=== PATIENT | female | born 1960 | race Caucasian/White ===

== ENCOUNTER 2018-05-13 16:26 | Inpatient (IN) | END 2018-06-22 15:25 | disposition home or self-care (01) | DRG 291 ==

== ENCOUNTER 2018-07-20 09:47 | Inpatient (IN) | payer OTHER ==
[~2018-07-20] VITALS: Ht 162.6 cm; Wt 156.0 kg
[~2018-07-20 09:47] MED LIST: ACET325T45 PO; ALLO100T PO; BUME1TAB PO; DIC20 PO; DIPH25CA6 PO; DOCU-216 PO; ERGO500013 PO; GABA300C16 PO; HYDR-3671 PO; LEVEM SC; LOPE-123 PO; Melatonin PO; NYST1POW22 TOPICAL; TRAM50TA2 PO; TRAZ-111 PO; Vancomycin Oral Syringe PO; [UNRECOGNIZED DRUG - CODE] RIGHT EAR
--- NOTE | 2018-07-20 14:48 | ERD ---
ER Documentation Chief Complaint Chief Complaint sent by dr robledo - for lab work ; pt unable to walk HPI This is a morbidly obese 58-year-old female who is sent by Dr. Robledo apparently the patient says she is unable to walk and called his office and was told to come here to get admitted to the hospital. She had a chronic inability to walk since her last admission here. She states that she has no real other physical conditions that are limiting and except not being able to walk. She has chronic neuropathy in her feet says she cannot feel her feet even walk. Patient refused to be placed in a long-term at last visit and she went AMA to back to her house. 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 She has no shortness of breath no abdominal pain GI symptoms or chest pain. Patient is not on dialysis yet however has a permacath ROS All systems reviewed and are negative except as per history of present illness. Medications Home Meds Active Scripts [Melatonin] 3 MG TABLET No Conflict Check, 3 MG PO HS PRN for INSOMNIA for 14 Days Prov:BRIAN ROBLEDO MD 06/21/18 Allopurinol* (Allopurinol*) 100 Mg Tablet, 100 MG PO DAILY for 28 Days, TAB Prov:BRIAN ROBLEDO MD 06/21/18 Ergocalciferol (Vitamin D2) (VITAMIN D2) 50,000 Unit Capsule, 20567 UNIT PO Lacy@ 09 for 28 Days, CAP Prov:BRIAN ROBLEDO MD 06/21/18 Insulin Detemir (Levemir) 100 Unit/1 Ml Vial, 25 UNITS SC HS for 28 Days, VIAL Prov:BRIAN ROBLEDO MD 06/21/18 Docusate Sodium (Dok) 100 Mg Capsule, 100 MG PO BID PRN for CONSTIPATION for 7 Days, CAP Prov:BRIAN ROBLEDO MD 06/21/18 Carbamide Peroxide (Murine Ear Drops) 15 Ml Drops, 3 DROP RIGHT EAR BID for 7 Days, BOTTLE Prov:BRIAN ROBLEDO MD 06/21/18 Tramadol HCl (Tramadol HCl) 50 Mg Tablet, 50 MG PO Q6H PRN for PAIN LEVEL 6-10 for 28 Days, #30 TAB Prov:BRIAN ROBLEDO MD 06/21/18 Gabapentin* (Gabapentin*) 300 Mg Capsule, 300 MG PO HS for 28 Days, CAP Prov:BRIAN ROBLEDO MD 06/21/18 Hydralazine Hcl* (Hydralazine Hcl*) 25 Mg Tab, 25 MG PO Q8 for 28 Days, TAB Prov:BRIAN ROBLEDO MD 06/21/18 [Vancomycin Oral Syringe] 50 MG/ML SOLN No Conflict Check, 250 MG PO TID for 14 Days Prov:BRIAN ROBLEDO MD 06/21/18 Reported Medications Nystatin (Nystatin Powder) 1 Each Powder.ea., 1 APPLIC TOPICAL BID, #1 BOTTLE 05/13/18 Acetaminophen* (Acetaminophen*) 325 Mg Tablet, 325 MG PO Q4H PRN for PAIN AND OR ELEVATED TEMP, #30 TAB 05/13/18 Trazodone Hcl* (Trazodone Hcl*) 50 Mg Tablet, 50 MG PO QHS, #30 TAB 05/13/18 Dicyclomine HCl (Dicyclomine HCl) 20 Mg Tablet, 20 MG PO BID 05/13/18 Loperamide Hcl* (Loperamide Hcl*) 2 Mg Cap, 2 MG PO DAILY, CAP 05/13/18 Bumetanide* (Bumetanide*) 1 Mg Tablet, 1 MG PO BID, TAB 05/13/18 Diphenhydramine Hcl* (Diphenhydramine Hcl*) 25 Mg Capsule, 25 MG PO QHS PRN for ITCHING, CAP 05/13/18 Allergies Allergies: Coded Allergies: polystyrene sulfonate (Verified Allergy, Intermediate, hives, 05/14/18) codeine (Verified Allergy, Unknown, 05/13/18) Uncoded Allergies: SEAFOOD (Allergy, Unknown, 05/13/18) PMhx/Soc History of Surgery: Yes (Gallbladder Removal ('),Abcess? (')) Anesthesia Reaction: No Hx Neurological Disorder: Yes (Volant palsy, hardened arteries, Neuropathy) Hx Respiratory Disorders: Yes (PNA ('17)) Hx Cardiac Disorders: Yes (CHF ('15), HTN, Arrythmias) Hx Psychiatric Problems: No Hx Miscellaneous Medical Probl: Yes (kidney failure) Hx Alcohol Use: Yes Hx Substance Use: No Hx Tobacco Use: No Smoking Status: Former smoker FmHx Family History: No coronary disease Physical Exam Vitals Vital Signs Date Time Temp Pulse Resp B/P (MAP) Pulse Ox O2 Delivery O2 Flow Rate FiO2 07/20/18 09:50 98.3 84 19 200/71 (114) 94 Physical Exam Const: Well-developed, well-nourished, morbidly obese Head: Atraumatic, normocephalic Eyes: Normal Conjunctiva, PERRLA, EOMI, normal sclera, no nystagmus ENT: Normal External Ears, Nose and Mouth, moist mucus membranes. Neck: Full range of motion. No meningismus, no lymphadenopathy. Resp: Clear to auscultation bilaterally, no wheezing, rhonchi, rales Cardio: Regular rate and rhythm, no murmurs, S1 S2 present, permacath in the right upper chest intact Abd: Soft, non tender x 4, non distended. Normal bowel sounds, no guarding or rebound, no pulsitile abdominal masses or bruits Skin: No petechiae or rashes, no ecchymosis , no maculopapular rash Back: No midline or flank tenderness Ext: No cyanosis, or edema, FROM x 4, normal inspection, neurovascularly intact x 4 Neur: Awake and alert, STR 5/5 x 4, sensation intact x 4, no focal findings, cerebellum intact Psych: Normal Mood and Affect Result Diagram: 07/20/18 1235 07/20/18 1235 Results 24 hrs Laboratory Tests Test 07/20/18 12:35 White Blood Count 14.4 10^3/ul Red Blood Count 4.82 10^6/ul Hemoglobin 12.7 g/dl Hematocrit 42.6 % Mean Corpuscular Volume 88.4 fl Mean Corpuscular Hemoglobin 26.3 pg Mean Corpuscular Hemoglobin Concent 29.8 g/dl Red Cell Distribution Width 16.3 % Platelet Count 317 10^3/UL Mean Platelet Volume 10.7 fl Immature Granulocytes % 0.700 % Neutrophils % 71.5 % Lymphocytes % 19.1 % Monocytes % 5.6 % Eosinophils % 2.6 % Basophils % 0.5 % Nucleated Red Blood Cells % 0.0 /100WBC Immature Granulocytes # 0.100 10^3/ul Neutrophils # 10.3 10^3/ul Lymphocytes # 2.7 10^3/ul Monocytes # 0.8 10^3/ul Eosinophils # 0.4 10^3/ul Basophils # 0.1 10^3/ul Nucleated Red Blood Cells # 0.0 10^3/ul Sodium Level 140 mmol/L Potassium Level 5.2 mmol/L Chloride Level 105 mmol/L Carbon Dioxide Level 29 mmol/L Anion Gap 11 Blood Urea Nitrogen 63 mg/dl Creatinine 3.50 mg/dl Glucose Level 206 mg/dl Calcium Level 9.6 mg/dl Total Bilirubin 0.2 mg/dl Direct Bilirubin 0.00 mg/dl Indirect Bilirubin 0.2 mg/dl Aspartate Amino Transf (AST/SGOT) 23 IU/L Alanine Aminotransferase (ALT/SGPT) 24 IU/L Alkaline Phosphatase 96 IU/L Total Protein 7.6 g/dl Albumin 3.1 g/dl Globulin 4.50 g/dl Albumin/Globulin Ratio 0.68 Procedures/MDM PROCEDURE: XR Chest. CLINICAL INDICATION: Chest pain TECHNIQUE: Single portable view of the chest was obtained COMPARISON: CHEST 06/09/2018 FINDINGS: The heart is enlarged. There is a right-sided Perma-Cath in place. There are mild left lower lobe linear atelectatic changes. The lungs are otherwise clear. There is no pleural effusion or pneumothorax. RPTAT: AA IMPRESSION: Moderate Cardiomegaly. Mild left lower lobe linear atelectatic changes. .Wade Julian MD, MD Date Time Electronically viewed and signed by .Wade Julian MD, MD on 07/20/2018 11: 26 .S/ CC: JULIÁN RAWLS DO [id number] Spoke with Dr. san who called Dr. Robledo and they discussed the case and call me back and see the patient does not need to stay in the hospital however the patient is adamantly refusing to go home because she cannot walk and its "their fault". The patient needs to be placed in a rehab or senior living facility with an aggressive weight loss regimen. She does have some mild hyperkalemia of 5.2 however the patient is refusing to take Kayexalate because she is allergic to it she states I have paged back Dr. san to have the patient put in for observation Departure Diagnosis: Primary Impression: Leg weakness, bilateral Additional Impression: Morbidly obese Condition: Stable JULIÁN RAWLS DO Jul 20, 2018 14:48
[2018-07-20] MEDS ORDERED: LIDOCAINE 1% (MPF) 5 ML VIAL ONE (16:41)
[2018-07-20] MEDS ORDERED: ONDANSETRON 4 MG INJ IV PRN (18:30)
[2018-07-20] MEDS ORDERED: ACETAMINOPHEN 325 MG TAB PO PRN (18:30)
--- NOTE | 2018-07-20 22:56 | HP ---
Date/Time of Note Date/Time of Note DATE: 07/20/18 TIME: 22:48 Assessment/Plan VTE Prophylaxis VTE Prophylaxis Intervention: heparin Lines/Catheters IV Catheter Type (from Nrsg): Mid Line Assessment/Plan Chief Complaint/Hosp Course 1. ckd 2. c diff hx 3. Chronic kidney disease, 4. Morbid obesity. 5. Diabetes. 6. Hypertension, 7. Gout.hx 8. Neuropathy. 9. History of congestive heart failure. 10 weakness 11 deconditioning plan ck labs will need snf ck ua HPI/ROS Admit Date/Time Admit Date/Time Hx of Present Illness hx ckd htn dm anemia hx c diff weakness unable to walk ROS Subjective hx not possible: other (weakness,unable to walk) Constitutional: fatigue; No chills Eyes: no complaints ENT: no complaints Respiratory: no complaints Cardiovascular: no complaints Gastrointestinal: no complaints Genitourinary: no complaints Musculoskeletal: no complaints Skin: no complaints Neurologic: no complaints, other (weakness) Endocrine: no complaints Lymphatic: no complaints Psychological: anxiety PMH/Family/Social Past Medical History Medical History: diabetes, high cholesterol, hypertension, renal disease Coded Allergies: polystyrene sulfonate (Verified Allergy, Intermediate, hives, 07/20/18) codeine (Verified Allergy, Unknown, 07/20/18) Uncoded Allergies: SEAFOOD (Allergy, Unknown, 05/13/18) Family History Significant Family History: hypertension Social History Alcohol Use: none Smoking Status: Former smoker Exam/Review of Systems Vital Signs Vitals Vital Signs Date Time Temp Pulse Resp B/P (MAP) Pulse Ox O2 Delivery O2 Flow Rate FiO2 07/20/18 21:00 83 13 122/46 (71) 98 Nasal Cannula 3.0 07/20/18 18:45 97.2 Exam Constitutional: alert, oriented, other (obese) Psych: anxiety Head: normocephalic, atraumatic Eyes: nl conjunctiva, EOMI ENMT: mucosa pink and moist Neck: supple, non-tender Respiratory: clear to auscultation, normal air movement Cardiovascular: regular rate and rhythm, nl pulses Gastrointestinal: soft, nl liver, spleen, non-tender, bowel sounds Musculoskeletal: muscle weakness, range of motion (pain+) Extremities: normal pulses, edema (+) Neurological: DIETARY CLERK II-XII intact Skin: No rash or lesions Labs Result Diagram: 07/20/18 1235 07/20/18 1235 Medications Medications Current Medications Ondansetron HCl (Zofran Inj) 4 mg BRIDGE ORDER PRN IV NAUSEA AND/OR VOMITING; Start 07/20/18 at 18:30; Stop 07/21/18 at 18:29 Acetaminophen (Tylenol Tab) 650 mg ER BRIDGE PRN PO MILD PAIN/FEVER; Start at 18:30; Stop 07/21/18 at 18:29 Acetaminophen (Tylenol Tab) 325 mg Q4H PRN PO MILD PAIN(1-3)OR ELEVATED TEMP; Start 07/20/18 at 23:00; Status UNV Allopurinol (Zyloprim) 100 mg DAILY PO ; Start 07/21/18 at 09:00; Status UNV Diphenhydramine HCl (Benadryl) 25 mg QHS PRN PO ITCHING; Start 07/20/18 at 23: 00; Status UNV Gabapentin (Neurontin) 300 mg HS PO ; Start 07/21/18 at 21:00; Status UNV Hydralazine HCl (Apresoline) 25 mg Q8 PO ; Start 07/21/18 at 06:00; Status UNV Loperamide HCl (Imodium Cap) 2 mg DAILY PO ; Start 07/21/18 at 09:00; Status UNV Trazodone HCl (Desyrel) 50 mg QHS PO ; Start 07/21/18 at 21:00; Status UNV Miscellaneous Information 100 mg BID PRN PO CONSTIPATION; Start 07/20/18 at 23 :00; Status UNV Miscellaneous Information 50,000 unit Alcy@09 PO ; Start 07/24/18 at 09:00; Status UNV Miscellaneous Information 50 mg Q6H PRN PO PAIN LEVEL 6-10; Start 07/20/18 at 23:00; Status UNV Miscellaneous Information 3 mg HS PRN PO INSOMNIA; Start 07/20/18 at 23:00; Status UNV IV Flush (NS 3 ml) 3 ml PER PROTOCOL IV ; Start 07/20/18 at 23:00; Status UNV Ondansetron HCl (Zofran Inj) 4 mg Q6H PRN IV NAUSEA AND/OR VOMITING; Start at 23:00; Status UNV Acetaminophen (Tylenol Supp) 650 mg Q6H PRN [place] PAIN LEVEL 1-3 OR FEVER; Start 07/20/18 at 23:00; Status UNV Docusate Sodium (Colace) 100 mg Q12H PRN PO CONSTIPATION; Start 07/20/18 at 23 :00; Status UNV Bisacodyl (Dulcolax) 5 mg DAILY PRN PO CONSTIPATION; Start 07/20/18 at 23:00; Status UNV Famotidine (Pepcid) 20 mg Q12 PO ; Start 07/21/18 at 09:00; Status UNV Heparin Sodium (Porcine) (Heparin (5000 Units/0.5 ml)) 5,000 unit Q12 SC ; Start 07/21/18 at 09:00; Status UNV Miscellaneous Information (* Miscellaneous Pharmacy Order) Discontinue current oral sulfonylur... ONCE ONCE XX ; Start 07/20/18 at 23:00; Stop 07/20/18 at 23:01; Status UNV Diagnostic Test (Pha) (Accu-Chek) 1 XX ; Start 07/21/18 at 02:00; Status UNV Miscellaneous Information (* Miscellaneous Pharmacy Order) HYPOGLYCEMIA PROTOCOL w... ONCE ONCE XX ; Start 07/20/18 at 23:00; Stop 07/20/18 at 23:01 ; Status UNV Insulin Aspart (Novolog Insulin Pen) NOVOLOG *MILD* ALGORITHM WITH MEALS BEDTIME SC ; Start 07/21/18 at 08:00; Status UNV Insulin Aspart (Novolog Insulin Pen) NOVOLOG *MILD* ALGORI... Q4 SC ; Start at 01:00; Status UNV Miscellaneous Information (* Miscellaneous Pharmacy Order) Discontinue all previ... ONCE ONCE XX ; Start 07/20/18 at 23:00; Stop 07/20/18 at 23:01; Status UNV BRIAN ROBLEDO MD Jul 20, 2018 22:56
[2018-07-20] MEDS ORDERED: ACETAMINOPHEN 650 MG SUPP PR PRN (23:00)
[2018-07-20] MEDS ORDERED: DOCUSATE SODIUM 100 MG PO PRN (23:00)
[2018-07-20] MEDS ORDERED: GLUCOSE GEL 15 GRAM TUBE BUCCAL PRN (23:00)
[2018-07-20] MEDS ORDERED: NACL 0.9% 3 ML SYG IV SCH (23:00)
[2018-07-20] MEDS ORDERED: GLUCOSE GEL 15 GRAM TUBE PO PRN ×2 (23:00)
[2018-07-20] MEDS ORDERED: DIPHENHYDRAMINE 25 MG CAP PO PRN (23:00)
[2018-07-20] MEDS ORDERED: GLUCAGON 1 MG INJ IM PRN (23:00)
[2018-07-20] MEDS ORDERED: NON-FORMULARY/PATIENT OWN MED (Tramadol HCl 50 MG) PO PRN (23:00)
[2018-07-20] MEDS ORDERED: DEXTROSE 50% 50 ML SYRINGE IV PRN ×2 (23:00)
[2018-07-20] MEDS ORDERED: MELATONIN 3 MG PO PRN (23:00)
[2018-07-21] MEDS ORDERED: INSULIN ASPART [NOVOLOG] 3 ML PEN SC SCH (01:00)
[2018-07-21] MEDS: traMADol 50 MG TAB PO PRN ×2 (01:32→11:11)
[2018-07-21] MEDS: ACCU-CHEK XX SCH (02:00)
[2018-07-21 04:24] VITALS: BP 116/74; PULSE 85; RESP 18
[2018-07-21 08:40] VITALS: BP 107/54; PULSE 76; RESP 18
[2018-07-21] MEDS ORDERED: HEPARIN 5,000 UNIT/0.5 ML VIAL SC SCH (09:00)
[2018-07-21] MEDS: LOPERAMIDE 2 MG CAP PO SCH ×2 (09:00→11:11)
[2018-07-21 09:15] VITALS: BP 118/72; PULSE 80; RESP 18
[2018-07-21] MEDS: INSULIN ASPART [NOVOLOG] 3 ML PEN SC SCH ×4 (09:21→22:47)
[2018-07-21] MEDS: ALLOPURINOL 100 MG TAB PO SCH (09:22)
[2018-07-21] MEDS: FAMOTIDINE 20 MG TAB PO SCH ×2 (09:23→22:39)
--- NOTE | 2018-07-21 10:43 | PN ---
Date/Time of Note Date/Time of Note DATE: 07/21/18 TIME: 10:43 Assessment/Plan VTE Prophylaxis VTE Prophylaxis Intervention: SCD's, other Lines/Catheters IV Catheter Type (from Nrsg): Mid Line Assessment/Plan Chief Complaint/Hosp Course 58 y/o with 1. . ckd, hyperkalemia 2. c diff hx 3. Chronic kidney disease, 4. Morbid obesity. 5. Diabetes. 6. Hypertension, 7. Gout.hx 8. Neuropathy. 9. History of congestive heart failure. 10 weakness 11 deconditioning Plan - Will get MRI lumbar spine to etwermine any lumbar disease - kayexalate - iv lasix - PT eval - avoid narcotics - gabapentin Subjective 24 Hr Interval Summary Free Text/Dictation pt is saying unable to walk , legs are weak k 5.7 Exam/Review of Systems Vital Signs Vitals Vital Signs Date Time Temp Pulse Resp B/P (MAP) Pulse Ox O2 Delivery O2 Flow Rate FiO2 07/21/18 09:15 97.5 80 18 118/72 (87) 95 07/20/18 23:00 Nasal Cannula 07/20/18 21:00 3.0 Intake and Output 07/20/18 07/20/18 07/21/18 14:59 22:59 06:59 Intake Total 480 ml Balance 480 ml Exam Obese rt permcath ctab RRR 1+edema Results Result Diagram: 07/21/18 0833 07/21/18 0833 Results 24 hrs Laboratory Tests Test 07/20/18 12:35 07/21/18 08:33 07/21/18 08:37 White Blood Count 14.4 #H 10.7 # Red Blood Count 4.82 4.52 Hemoglobin 12.7 11.8 L Hematocrit 42.6 40.1 Mean Corpuscular Volume 88.4 88.7 Mean Corpuscular Hemoglobin 26.3 L 26.1 L Mean Corpuscular Hemoglobin Concent 29.8 L 29.4 L Red Cell Distribution Width 16.3 H 16.7 H Platelet Count 317 309 Mean Platelet Volume 10.7 H 10.8 H Immature Granulocytes % 0.700 H 0.500 H Neutrophils % 71.5 62.4 Lymphocytes % 19.1 27.6 Monocytes % 5.6 5.3 Eosinophils % 2.6 3.5 Basophils % 0.5 0.7 Nucleated Red Blood Cells % 0.0 0.0 Immature Granulocytes # 0.100 H 0.050 H Neutrophils # 10.3 H 6.7 Lymphocytes # 2.7 3.0 H Monocytes # 0.8 0.6 Eosinophils # 0.4 0.4 Basophils # 0.1 0.1 Nucleated Red Blood Cells # 0.0 0.0 Sodium Level 140 140 Potassium Level 5.2 H 5.7 H Chloride Level 105 109 Carbon Dioxide Level 29 23 Anion Gap 6 8 Blood Urea Nitrogen 63 H 64 H Creatinine 3.50 H 3.27 H Glucose Level 206 182 Calcium Level 9.6 9.3 Total Bilirubin 0.2 0.1 L Direct Bilirubin 0.00 0.00 Indirect Bilirubin 0.2 0.1 Aspartate Amino Transf (AST/SGOT) 23 21 Alanine Aminotransferase (ALT/SGPT) 24 21 Alkaline Phosphatase 96 81 Total Protein 7.6 7.3 Albumin 3.1 L 3.2 L Globulin 4.50 H 4.10 H Albumin/Globulin Ratio 0.68 0.78 Hemoglobin A1c 8.3 H Bedside Glucose 149 Medications Medications Current Medications Ondansetron HCl (Zofran Inj) 4 mg BRIDGE ORDER PRN IV NAUSEA AND/OR VOMITING; Start 07/20/18 at 18:30; Stop 07/21/18 at 18:29 Acetaminophen (Tylenol Tab) 650 mg ER BRIDGE PRN PO MILD PAIN/FEVER; Start at 18:30; Stop 07/21/18 at 18:29 Acetaminophen (Tylenol Tab) 325 mg Q4H PRN PO MILD PAIN(1-3)OR ELEVATED TEMP; Start 07/20/18 at 23:00 Allopurinol (Zyloprim) 100 mg DAILY PO Last administered on 07/21/18at 09:22; Admin Dose 100 MG; Start 07/21/18 at 09:00 Diphenhydramine HCl (Benadryl) 25 mg QHS PRN PO ITCHING; Start 07/20/18 at 23: 00 Gabapentin (Neurontin) 300 mg HS PO ; Start 07/21/18 at 21:00 Hydralazine HCl (Apresoline) 25 mg Q8 PO ; Start 07/21/18 at 06:00 Loperamide HCl (Imodium Cap) 2 mg DAILY PO ; Start 07/21/18 at 09:00 Trazodone HCl (Desyrel) 50 mg QHS PO ; Start 07/21/18 at 21:00 IV Flush (NS 3 ml) 3 ml PER PROTOCOL IV ; Start 07/20/18 at 23:00 Ondansetron HCl (Zofran Inj) 4 mg Q6H PRN IV NAUSEA AND/OR VOMITING; Start at 23:00 Acetaminophen (Tylenol Tab) 650 mg Q6H PRN PO PAIN LEVEL 1-3 OR FEVER; Start 07/20/18 at 23:00 Acetaminophen (Tylenol Supp) 650 mg Q6H PRN [place] PAIN LEVEL 1-3 OR FEVER; Start 07/20/18 at 23:00 Docusate Sodium (Colace) 100 mg Q12H PRN PO CONSTIPATION; Start 07/20/18 at 23 :00 Bisacodyl (Dulcolax) 5 mg DAILY PRN PO CONSTIPATION; Start 07/20/18 at 23:00 Famotidine (Pepcid) 20 mg Q12 PO Last administered on 07/21/18at 09:23; Admin Dose 20 MG; Start 07/21/18 at 09:00 Heparin Sodium (Porcine) (Heparin (5000 Units/0.5 ml)) 5,000 unit Q12 SC Last administered on 07/21/18at 09:25; Admin Dose 5,000 UNIT; Start 07/21/18 at 09: 00 Diagnostic Test (Pha) (Accu-Chek) 1 ea 02 XX ; Start 07/21/18 at 02:00 Insulin Aspart (Novolog Insulin Pen) NOVOLOG *MILD* ALGORITHM WITH MEALS BEDTIME SC Last administered on 07/21/18at 09:21; Admin Dose 1 UNIT; Start at 07:50 Ergocalciferol (Drisdol) 50,000 unit Lacy@0900 PO ; Start 07/24/18 at 09:00 Tramadol HCl (Ultram) 50 mg Q6H PRN PO PAIN LEVEL 6-10 Last administered on at 01:32; Admin Dose 50 MG; Start 07/20/18 at 23:00 Miscellaneous Information 1 ea NOTE XX ; Start 07/20/18 at 23:00 Glucose (Glutose) 15 gm Q15M PRN PO DECREASED GLUCOSE; Start 07/20/18 at 23:00 Glucose (Glutose) 22.5 gm Q15M PRN PO DECREASED GLUCOSE; Start 07/20/18 at 23: 00 Dextrose (D50w Syringe) 25 ml Q15M PRN IV DECREASED GLUCOSE; Start 07/20/18 at 23:00 Dextrose (D50w Syringe) 50 ml Q15M PRN IV DECREASED GLUCOSE; Start 07/20/18 at 23:00 Glucagon (Glucagen) 1 mg Q15M PRN IM DECREASED GLUCOSE; Start 07/20/18 at 23: 00 Glucose (Glutose) 15 gm Q15M PRN BUCCAL DECREASED GLUCOSE; Start 07/20/18 at 23:00 Melatonin (Melatonin) 3 mg HS PRN PO INSOMNIA; Start 07/20/18 at 23:00 KOFI SWANN MD Jul 21, 2018 10:43
[2018-07-21 13:04] VITALS: BP 121/74; PULSE 86; RESP 18
[2018-07-21] MEDS ORDERED: NA POLYST SULFON 15 GM/60 ML BTL PO ONE (17:30)
[2018-07-21] MEDS ORDERED: FUROSEMIDE 40 MG INJ IV ONE (18:00)
[2018-07-21 20:36] VITALS: BP 110/55; PULSE 78; RESP 20
[2018-07-21] MEDS: GABAPENTIN 300 MG CAP PO SCH (22:38)
[2018-07-21] MEDS: traZODone 50 MG TAB PO SCH (22:39)
[2018-07-21] MEDS ORDERED: HEPARIN 5,000 UNIT/0.5 ML VIAL ONE (22:51)
[2018-07-21] MEDS: HEPARIN 5,000 UNIT/1 ML VIAL SC SCH (22:54)
[2018-07-22 02:00] VITALS: BP 124/76; PULSE 92; RESP 19
[2018-07-22] MEDS: ACCU-CHEK XX SCH (02:00)
[2018-07-22] MEDS ORDERED: HEPARIN 5,000 UNIT/0.5 ML VIAL ONE ×2 (08:23→20:14)
[2018-07-22] MEDS: FAMOTIDINE 20 MG TAB PO SCH ×2 (08:29→20:24)
[2018-07-22] MEDS: ALLOPURINOL 100 MG TAB PO SCH (08:29)
[2018-07-22 08:30] VITALS: BP 98/59; PULSE 86; RESP 19
[2018-07-22] MEDS: INSULIN ASPART [NOVOLOG] 3 ML PEN SC SCH ×4 (08:32→20:26)
[2018-07-22] MEDS: HEPARIN 5,000 UNIT/1 ML VIAL SC SCH ×2 (08:33→20:27)
[2018-07-22] MEDS ORDERED: PATIROMER CALCIUM SORBITEX 16.8 GM PKT PO ONE ×2 (10:00→12:00)
--- NOTE | 2018-07-22 11:13 | PN ---
WILLY MEDEIROS 07/22/18 1113: Date/Time of Note Date/Time of Note DATE: 07/22/18 TIME: 11:11 Assessment/Plan VTE Prophylaxis VTE Prophylaxis Intervention: SCD's Lines/Catheters IV Catheter Type (from Nrsg): permacath Urinary Cath still in place: No Assessment/Plan Chief Complaint/Hosp Course 1. ckd, hyperkalemia 2. c diff hx 3. Opiates dependency 4. Morbid obesity. 5. Diabetes. 6. Hypertension, 7. Gout, hx 8. Neuropathy. 9. History of congestive heart failure. 10. weakness 11. deconditioning 12. Non compliance, pt refused Valtessa 13. Left shoulder chronic pain. Xray was reviewed from the last visit, it is arthrosis left acromioclavicular joint Assessment/Plan - MRI lumbar spine to determine any lumbar disease, pt refused - pt refused Veltassa, agreed on HD -consent -Stat HD - PT eval - avoid narcotics - gabapentin Subjective 24 Hr Interval Summary Musculoskeletal: bone/joint pain (rigth shoulder pain), restricted range of motion (left shoulder) Exam/Review of Systems Vital Signs Vitals Vital Signs Date Time Temp Pulse Resp B/P (MAP) Pulse Ox O2 Delivery O2 Flow Rate FiO2 07/22/18 08:30 98.3 86 19 98/59 (72) 86 07/21/18 13:04 Nasal Cannula 07/20/18 21:00 3.0 Intake and Output 07/21/18 07/21/18 07/22/18 14:59 22:59 06:59 Intake Total 840 ml Output Total 1 ml Balance 839 ml Exam morbid obese Constitutional: alert, oriented Neck: supple Respiratory: clear to auscultation Cardiovascular: regular rate and rhythm Gastrointestinal: soft Musculoskeletal: joint tenderness (left shoulder) Skin: other Results Result Diagram: 07/21/18 0833 07/22/18 0930 Results 24 hrs Laboratory Tests Test 07/21/18 12:41 07/21/18 17:58 07/21/18 22:38 07/22/18 02:09 Bedside Glucose 156 287 H 202 173 Test 07/22/18 08:28 07/22/18 09:30 Bedside Glucose 158 Sodium Level 138 Potassium Level 6.1 *H Chloride Level 107 Carbon Dioxide Level 27 Anion Gap 4 L Blood Urea Nitrogen 69 H Creatinine 3.28 H Glucose Level 170 Calcium Level 8.9 Medications Medications Current Medications Acetaminophen (Tylenol Tab) 325 mg Q4H PRN PO MILD PAIN(1-3)OR ELEVATED TEMP; Start 07/20/18 at 23:00 Allopurinol (Zyloprim) 100 mg DAILY PO Last administered on 07/22/18at 08:29; Admin Dose 100 MG; Start 07/21/18 at 09:00 Diphenhydramine HCl (Benadryl) 25 mg QHS PRN PO ITCHING; Start 07/20/18 at 23: 00 Gabapentin (Neurontin) 300 mg HS PO Last administered on 07/21/18at 22:38; Admin Dose 300 MG; Start 07/21/18 at 21:00 Hydralazine HCl (Apresoline) 25 mg Q8 PO Last administered on 07/21/18at 22:39 ; Admin Dose 25 MG; Start 07/21/18 at 06:00 Loperamide HCl (Imodium Cap) 2 mg DAILY PO Last administered on 07/21/18at 11: 11; Admin Dose 2 MG; Start 07/21/18 at 09:00 Trazodone HCl (Desyrel) 50 mg QHS PO Last administered on 07/21/18at 22:39; Admin Dose 50 MG; Start 07/21/18 at 21:00 IV Flush (NS 3 ml) 3 ml PER PROTOCOL IV ; Start 07/20/18 at 23:00 Ondansetron HCl (Zofran Inj) 4 mg Q6H PRN IV NAUSEA AND/OR VOMITING; Start at 23:00 Acetaminophen (Tylenol Tab) 650 mg Q6H PRN PO PAIN LEVEL 1-3 OR FEVER; Start 07/20/18 at 23:00 Acetaminophen (Tylenol Supp) 650 mg Q6H PRN [place] PAIN LEVEL 1-3 OR FEVER; Start 07/20/18 at 23:00 Docusate Sodium (Colace) 100 mg Q12H PRN PO CONSTIPATION; Start 07/20/18 at 23 :00 Bisacodyl (Dulcolax) 5 mg DAILY PRN PO CONSTIPATION; Start 07/20/18 at 23:00 Famotidine (Pepcid) 20 mg Q12 PO Last administered on 07/22/18at 08:29; Admin Dose 20 MG; Start 07/21/18 at 09:00 Diagnostic Test (Pha) (Accu-Chek) 1 ea 02 XX Last administered on 07/22/18at 02 :00; Admin Dose 1 EA; Start 07/21/18 at 02:00 Insulin Aspart (Novolog Insulin Pen) NOVOLOG *MILD* ALGORITHM WITH MEALS BEDTIME SC Last administered on 07/22/18at 08:32; Admin Dose 1 UNIT; Start at 07:50 Ergocalciferol (Drisdol) 50,000 unit Lacy@0900 PO ; Start 07/24/18 at 09:00 Tramadol HCl (Ultram) 50 mg Q6H PRN PO PAIN LEVEL 6-10 Last administered on at 11:11; Admin Dose 50 MG; Start 07/20/18 at 23:00 Miscellaneous Information 1 ea NOTE XX ; Start 07/20/18 at 23:00 Glucose (Glutose) 15 gm Q15M PRN PO DECREASED GLUCOSE; Start 07/20/18 at 23:00 Glucose (Glutose) 22.5 gm Q15M PRN PO DECREASED GLUCOSE; Start 07/20/18 at 23: 00 Dextrose (D50w Syringe) 25 ml Q15M PRN IV DECREASED GLUCOSE; Start 07/20/18 at 23:00 Dextrose (D50w Syringe) 50 ml Q15M PRN IV DECREASED GLUCOSE; Start 07/20/18 at 23:00 Glucagon (Glucagen) 1 mg Q15M PRN IM DECREASED GLUCOSE; Start 07/20/18 at 23: 00 Glucose (Glutose) 15 gm Q15M PRN BUCCAL DECREASED GLUCOSE; Start 07/20/18 at 23:00 Melatonin (Melatonin) 3 mg HS PRN PO INSOMNIA; Start 07/20/18 at 23:00 Heparin Sodium (Porcine) 5,000 unit Q12 SC Last administered on 07/22/18at 08: 33; Admin Dose 5,000 UNIT; Start 07/21/18 at 21:00 Patiromer (Veltassa) 8.4 gm ONCE ONCE PO ; Start 07/22/18 at 12:00; Stop at 12:01 KOFI SWANN MD 07/22/18 1356: Assessment/Plan Assessment/Plan Assessment/Plan seen and examined with VICE PRESIDENT SAFETY AT BEDSIDE Pt has high K , allergic to kayexalate, ordered valtassa but pt is worried about her being having bowel movements however she is not amulating and told her she could use bed monterroso , but does not want veltassa Spoke to patient again , will give session of hd today for k Of note pt had also refused MRI lower back as pt has been complaining of pain in ble and wanted to determine if have any back stenosis/spinal disease, but pt adamantly refused and said " All i need is PT and told her that PT is already been called and will work with her Exam/Review of Systems Results Result Diagram: 07/21/18 0833 07/22/18 0930 WILLY MEDEIROS Jul 22, 2018 11:13 KOFI SWANN MD Jul 22, 2018 13:56
[2018-07-22] MEDS: DICLOFENAC SODIUM 1% GEL 100 GM TUBE TP SCH ×3 (13:38→20:27)
[2018-07-22] MEDS ORDERED: ALBUMIN HUMAN 25% 50 ML IV PRN (14:00)
[2018-07-22] MEDS ORDERED: SODIUM CHLORIDE 0.9% 1L BAG IV PRN (14:00)
[2018-07-22] MEDS: traMADol 50 MG TAB PO PRN (14:48)
[2018-07-22] MEDS: LOPERAMIDE 2 MG CAP PO SCH (14:48)
[2018-07-22] MEDS ORDERED: INSULIN REGULAR, HUMAN 100 UNIT/1 ML 3ML VIAL IVP STA (15:07)
[2018-07-22] MEDS ORDERED: DEXTROSE 50% 50 ML SYRINGE IV ONE (15:30)
[2018-07-22] MEDS ORDERED: DEXTROSE 50% 50 ML SYRINGE IV PRN (15:30)
[2018-07-22] MEDS ORDERED: CALCIUM GLUCONATE 10% 1 GM in DEXTROSE 5% 100 ML IVPB ONE (17:00)
[2018-07-22 20:00] VITALS: BP 104/51; PULSE 73; RESP 18
[2018-07-22] MEDS: traZODone 50 MG TAB PO SCH (20:24)
[2018-07-22] MEDS: GABAPENTIN 300 MG CAP PO SCH (20:24)
[2018-07-23] MEDS: ACCU-CHEK XX SCH (02:00)
[2018-07-23 03:39] VITALS: BP 120/55; PULSE 78; RESP 18
[2018-07-23 08:23] VITALS: BP 143/89; PULSE 77; RESP 18
[2018-07-23] MEDS ORDERED: HEPARIN 5,000 UNIT/0.5 ML VIAL ONE ×2 (08:38→20:56)
[2018-07-23] MEDS: INSULIN ASPART [NOVOLOG] 3 ML PEN SC SCH ×4 (09:40→21:03)
[2018-07-23] MEDS: FAMOTIDINE 20 MG TAB PO SCH ×2 (09:41→20:59)
[2018-07-23] MEDS: ALLOPURINOL 100 MG TAB PO SCH (09:41)
[2018-07-23] MEDS: HEPARIN 5,000 UNIT/1 ML VIAL SC SCH ×2 (09:43→21:02)
[2018-07-23] MEDS: LOPERAMIDE 2 MG CAP PO SCH (09:43)
[2018-07-23] MEDS: DICLOFENAC SODIUM 1% GEL 100 GM TUBE TP SCH ×4 (09:51→21:04)
--- NOTE | 2018-07-23 12:04 | PN ---
Date/Time of Note Date/Time of Note DATE: 07/23/18 TIME: 11:50 Assessment/Plan VTE Prophylaxis VTE Prophylaxis Intervention: SCD's Lines/Catheters IV Catheter Type (from Nrsg): Mid Line Central line still needed: Yes Urinary Cath still in place: No Assessment/Plan Chief Complaint/Hosp Course 1. ckd, hyperkalemia 2. c diff hx 3. Opiates dependency 4. Morbid obesity. 5. Diabetes. 6. Hypertension, 7. Gout, hx 8. Neuropathy. 9. History of congestive heart failure. 10. weakness 11. deconditioning 12. Non compliance, pt refused V[place], HD 13. Left shoulder chronic pain. Xray was reviewed from the last visit, it is arthrosis left acromioclavicular joint Assessment/Plan -pt is very mean, cursing during conversation -pt refused HD yesterday -ordered Valtessa 8.4 mg for hyperkalemia by mouth today - MRI lumbar spine to determine any lumbar disease, pt refused -consent HD - PT evaluation and treatment - avoid narcotics -c/w skin care , keep it dry -c/w gabapentin Subjective 24 Hr Interval Summary Free Text/Dictation unable to walk Musculoskeletal: bone/joint pain (left shoulder) Exam/Review of Systems Vital Signs Vitals Vital Signs Date Time Temp Pulse Resp B/P (MAP) Pulse Ox O2 Delivery O2 Flow Rate FiO2 07/23/18 08:23 97.7 77 18 143/89 (107) 93 Room Air 07/20/18 21:00 3.0 Intake and Output 07/22/18 07/22/18 07/23/18 15:00 23:00 07:00 Intake Total 840 ml 590 ml Balance 840 ml 590 ml Exam right chest Permcath Constitutional: alert, oriented Respiratory: normal air movement Gastrointestinal: soft Results Result Diagram: 07/23/18 1042 07/22/18 1724 Results 24 hrs Laboratory Tests Test 07/22/18 11:51 07/22/18 15:41 07/22/18 17:20 07/22/18 17:24 Bedside Glucose 190 286 H 311 H Potassium Level 5.9 H Test 07/22/18 20:09 07/23/18 02:42 07/23/18 09:38 07/23/18 10:42 Bedside Glucose 266 H 184 174 White Blood Count 8.9 Red Blood Count 4.80 Hemoglobin 12.6 Hematocrit 43.1 Mean Corpuscular Volume 89.8 Mean Corpuscular Hemoglobin 26.3 L Mean Corpuscular Hemoglobin Concent 29.2 L Red Cell Distribution Width 16.5 H Platelet Count 248 Mean Platelet Volume 10.5 H Immature Granulocytes % 0.300 Neutrophils % 64.0 Lymphocytes % 26.1 Monocytes % 5.6 Eosinophils % 3.6 Basophils % 0.4 Nucleated Red Blood Cells % 0.0 Immature Granulocytes # 0.030 Neutrophils # 5.7 Lymphocytes # 2.3 Monocytes # 0.5 Eosinophils # 0.3 Basophils # 0.0 Nucleated Red Blood Cells # 0.0 Hemoglobin A1c 8.2 H Medications Medications Current Medications Acetaminophen (Tylenol Tab) 325 mg Q4H PRN PO MILD PAIN(1-3)OR ELEVATED TEMP; Start 07/20/18 at 23:00 Allopurinol (Zyloprim) 100 mg DAILY PO Last administered on 07/23/18at 09:41; Admin Dose 100 MG; Start 07/21/18 at 09:00 Diphenhydramine HCl (Benadryl) 25 mg QHS PRN PO ITCHING; Start 07/20/18 at 23: 00 Gabapentin (Neurontin) 300 mg HS PO Last administered on 07/22/18at 20:24; Admin Dose 300 MG; Start 07/21/18 at 21:00 Loperamide HCl (Imodium Cap) 2 mg DAILY PO Last administered on 07/23/18at 09: 43; Admin Dose 2 MG; Start 07/21/18 at 09:00 Trazodone HCl (Desyrel) 50 mg QHS PO Last administered on 07/22/18at 20:24; Admin Dose 50 MG; Start 07/21/18 at 21:00 IV Flush (NS 3 ml) 3 ml PER PROTOCOL IV ; Start 07/20/18 at 23:00 Ondansetron HCl (Zofran Inj) 4 mg Q6H PRN IV NAUSEA AND/OR VOMITING; Start at 23:00 Acetaminophen (Tylenol Tab) 650 mg Q6H PRN PO PAIN LEVEL 1-3 OR FEVER; Start 07/20/18 at 23:00 Acetaminophen (Tylenol Supp) 650 mg Q6H PRN [place] PAIN LEVEL 1-3 OR FEVER; Start 07/20/18 at 23:00 Docusate Sodium (Colace) 100 mg Q12H PRN PO CONSTIPATION; Start 07/20/18 at 23 :00 Bisacodyl (Dulcolax) 5 mg DAILY PRN PO CONSTIPATION; Start 07/20/18 at 23:00 Famotidine (Pepcid) 20 mg Q12 PO Last administered on 07/23/18at 09:41; Admin Dose 20 MG; Start 07/21/18 at 09:00 Diagnostic Test (Pha) (Accu-Chek) 1 ea 02 XX Last administered on 07/22/18at 02 :00; Admin Dose 1 EA; Start 07/21/18 at 02:00 Insulin Aspart (Novolog Insulin Pen) NOVOLOG *MILD* ALGORITHM WITH MEALS BEDTIME SC Last administered on 07/22/18at 20:26; Admin Dose 2 UNIT; Start at 07:50 Ergocalciferol (Drisdol) 50,000 unit Lacy@0900 PO ; Start 07/24/18 at 09:00 Tramadol HCl (Ultram) 50 mg Q6H PRN PO PAIN LEVEL 6-10 Last administered on at 14:48; Admin Dose 50 MG; Start 07/20/18 at 23:00 Miscellaneous Information 1 ea NOTE XX ; Start 07/20/18 at 23:00 Glucose (Glutose) 15 gm Q15M PRN PO DECREASED GLUCOSE; Start 07/20/18 at 23:00 Glucose (Glutose) 22.5 gm Q15M PRN PO DECREASED GLUCOSE; Start 07/20/18 at 23: 00 Dextrose (D50w Syringe) 25 ml Q15M PRN IV DECREASED GLUCOSE; Start 07/20/18 at 23:00 Dextrose (D50w Syringe) 50 ml Q15M PRN IV DECREASED GLUCOSE; Start 07/20/18 at 23:00 Glucagon (Glucagen) 1 mg Q15M PRN IM DECREASED GLUCOSE; Start 07/20/18 at 23: 00 Glucose (Glutose) 15 gm Q15M PRN BUCCAL DECREASED GLUCOSE; Start 07/20/18 at 23:00 Melatonin (Melatonin) 3 mg HS PRN PO INSOMNIA; Start 07/20/18 at 23:00 Heparin Sodium (Porcine) 5,000 unit Q12 SC Last administered on 07/23/18at 09: 43; Admin Dose 5,000 UNIT; Start 07/21/18 at 21:00 Diclofenac Sodium (Voltaren 1% Gel) 2 gm QID TP Last administered on at 09:51; Admin Dose 2 GM; Start 07/22/18 at 13:00 Albumin Human 50 ml @ 100 mls/hr WITH DIALYSIS PRN IV SBP < 90 DURING DIALYSIS ; Start 07/22/18 at 14:00 Sodium Chloride (NS) -To prime the dialy... DIRECTED FOR HD PRN IV HD; Start 07/22/18 at 14:00 Dextrose (D50w Syringe) ONCE PRN IV DECREASED GLUCOSE; Start 07/22/18 at 15: 30; Stop 07/23/18 at 15:29 WILLY MEDEIROS Jul 23, 2018 12:01
[2018-07-23 14:00] VITALS: BP 138/74; PULSE 80; RESP 18
[2018-07-23] MEDS: traMADol 50 MG TAB PO PRN ×2 (14:17→20:59)
[2018-07-23] MEDS: PATIROMER CALCIUM SORBITEX 16.8 GM PKT PO SCH (17:39)
[2018-07-23 19:45] VITALS: BP 135/64; PULSE 84; RESP 18
[2018-07-23] MEDS: GABAPENTIN 300 MG CAP PO SCH (20:59)
[2018-07-23] MEDS: traZODone 50 MG TAB PO SCH (20:59)
[2018-07-23] MEDS: BALSAM PERU/CASTOR OIL 60 GM TUBE TOP SCH (20:59)
[2018-07-24] MEDS: ACCU-CHEK XX SCH (02:12)
[2018-07-24] MEDS: INSULIN ASPART [NOVOLOG] 3 ML PEN SC SCH ×4 (07:50→21:12)
[2018-07-24] MEDS ORDERED: HEPARIN 5,000 UNIT/0.5 ML VIAL ONE ×2 (08:20→21:05)
[2018-07-24 08:45] VITALS: BP_SYST 107; BP_SYST 124; BP_DIAS 68; BP_DIAS 75; PULSE 77; PULSE 85; PULSE 89; RESP 18; RESP 20
[2018-07-24 09:00] VITALS: BP 124/72; PULSE 78
[2018-07-24] MEDS ORDERED: NON-FORMULARY/PATIENT OWN MED (Ergocalciferol (Vitamin D2) (Vitamin D2) 50,000 UNIT) PO SCH (09:00)
[2018-07-24] MEDS ORDERED: HEPARIN 1000 UNITS/ML 10 ML INJ CATHETER SCH (09:00)
[2018-07-24] MEDS: BALSAM PERU/CASTOR OIL 60 GM TUBE TOP SCH ×3 (09:00→21:00)
[2018-07-24] MEDS: LOPERAMIDE 2 MG CAP PO SCH (09:00)
[2018-07-24 09:15] VITALS: BP 109/70; PULSE 80
[2018-07-24 09:30] VITALS: BP 124/75; PULSE 85
[2018-07-24 09:45] VITALS: BP 128/58; PULSE 80
[2018-07-24] MEDS: ERGOCALCIFEROL 50,000 UNIT CAP PO SCH (10:34)
[2018-07-24] MEDS: FAMOTIDINE 20 MG TAB PO SCH ×2 (10:34→21:14)
[2018-07-24] MEDS: ALLOPURINOL 100 MG TAB PO SCH (10:34)
[2018-07-24] MEDS: DICLOFENAC SODIUM 1% GEL 100 GM TUBE TP SCH ×4 (10:35→21:00)
[2018-07-24] MEDS: HEPARIN 5,000 UNIT/1 ML VIAL SC SCH ×2 (10:39→21:13)
[2018-07-24] MEDS: PATIROMER CALCIUM SORBITEX 16.8 GM PKT PO SCH (11:40)
--- NOTE | 2018-07-24 15:30 | PN ---
Date/Time of Note Date/Time of Note DATE: 07/24/18 TIME: 15:28 Assessment/Plan VTE Prophylaxis VTE Prophylaxis Intervention: other Lines/Catheters IV Catheter Type (from Nrs): permacath Urinary Cath still in place: No Assessment/Plan Chief Complaint/Hosp Course 1. ckd 2. c diff hx 3. Chronic kidney disease, 4. Morbid obesity. 5. Diabetes. 6. Hypertension, 7. Gout.hx 8. Neuropathy. 9. History of congestive heart failure. 10 weakness 11 deconditioning 12 hyperkalemia 13 non compliancew meds and hd plan ck labs hd renal diet veltassa Subjective 24 Hr Interval Summary Subjective hx not possible: other (pt refusing hd and meds,noncompliancew diet) Exam/Review of Systems Vital Signs Vitals Vital Signs Date Time Temp Pulse Resp B/P (MAP) Pulse Ox O2 Delivery O2 Flow Rate FiO2 07/24/18 09:45 80 07/24/18 08:45 20 107/75 (86) 96 Nasal Cannula 2.0 07/23/18 19:45 98.2 Intake and Output 07/23/18 07/23/18 07/24/18 15:00 23:00 07:00 Intake Total 520 ml 440 ml Balance 520 ml 440 ml Exam Neck: supple Respiratory: clear to auscultation Cardiovascular: regular rate and rhythm Gastrointestinal: soft Extremities: edema (+) Neurological: PIPE [employer] SUPERVISOR II-XII intact, nl mental status, nl speech, nl strength Results Result Diagram: 07/23/18 1042 07/24/18 1100 Results 24 hrs Laboratory Tests Test 07/23/18 17:32 07/23/18 20:45 07/23/18 20:47 07/24/18 02:11 Bedside Glucose 262 H 301 H 258 H 221 H Test 07/24/18 07:55 07/24/18 10:28 07/24/18 11:00 07/24/18 12:34 Sodium Level 140 Potassium Level 6.1 *H 5.7 H Chloride Level 108 Carbon Dioxide Level 24 Anion Gap 8 Blood Urea Nitrogen 73 H Creatinine 3.66 H Glucose Level 184 Calcium Level 9.0 Hepatitis B Surface Antigen NEGATIVE Bedside Glucose 138 145 Medications Medications Current Medications Acetaminophen (Tylenol Tab) 325 mg Q4H PRN PO MILD PAIN(1-3)OR ELEVATED TEMP; Start 07/20/18 at 23:00 Allopurinol (Zyloprim) 100 mg DAILY PO Last administered on 07/24/18 10:34; Admin Dose 100 MG; Start 07/21/18 at 09:00 Diphenhydramine HCl (Benadryl) 25 mg QHS PRN PO ITCHING; Start 07/20/18 at 23: 00 Gabapentin (Neurontin) 300 mg HS PO Last administered on 07/23/18at 20:59; Admin Dose 300 MG; Start 07/21/18 at 21:00 Loperamide HCl (Imodium Cap) 2 mg DAILY PO Last administered on 07/24/18 09: 00; Admin Dose 2 MG; Start 07/21/18 at 09:00 Trazodone HCl (Desyrel) 50 mg QHS PO Last administered on 07/23/18 20:59; Admin Dose 50 MG; Start 07/21/18 at 21:00 IV Flush (NS 3 ml) 3 ml PER PROTOCOL IV ; Start 07/20/18 at 23:00 Ondansetron HCl (Zofran Inj) 4 mg Q6H PRN IV NAUSEA AND/OR VOMITING; Start at 23:00 Acetaminophen (Tylenol Tab) 650 mg Q6H PRN PO PAIN LEVEL 1-3 OR FEVER; Start 07/20/18 at 23:00 Acetaminophen (Tylenol Supp) 650 mg Q6H PRN [place] PAIN LEVEL 1-3 OR FEVER; Start 07/20/18 at 23:00 Docusate Sodium (Colace) 100 mg Q12H PRN PO CONSTIPATION; Start 07/20/18 at 23 :00 Bisacodyl (Dulcolax) 5 mg DAILY PRN PO CONSTIPATION; Start 07/20/18 at 23:00 Famotidine (Pepcid) 20 mg Q12 PO Last administered on 07/24/18at 10:34; Admin Dose 20 MG; Start 07/21/18 at 09:00 Diagnostic Test (Pha) (Accu-Chek) 1 ea 02 XX Last administered on 07/24/18at 02 :12; Admin Dose 1 EA; Start 07/21/18 at 02:00 Insulin Aspart (Novolog Insulin Pen) NOVOLOG *MILD* ALGORITHM WITH MEALS BEDTIME SC Last administered on 07/24/18at 13:13; Admin Dose 1 UNIT; Start at 07:50 Ergocalciferol (Drisdol) 50,000 unit Lacy@0900 PO Last administered on at 10:34; Admin Dose 50,000 UNIT; Start 07/24/18 at 09:00 Tramadol HCl (Ultram) 50 mg Q6H PRN PO PAIN LEVEL 6-10 Last administered on at 20:59; Admin Dose 50 MG; Start 07/20/18 at 23:00 Miscellaneous Information 1 ea NOTE XX ; Start 07/20/18 at 23:00 Glucose (Glutose) 15 gm Q15M PRN PO DECREASED GLUCOSE; Start 07/20/18 at 23:00 Glucose (Glutose) 22.5 gm Q15M PRN PO DECREASED GLUCOSE; Start 07/20/18 at 23: 00 Dextrose (D50w Syringe) 25 ml Q15M PRN IV DECREASED GLUCOSE; Start 07/20/18 at 23:00 Dextrose (D50w Syringe) 50 ml Q15M PRN IV DECREASED GLUCOSE; Start 07/20/18 at 23:00 Glucagon (Glucagen) 1 mg Q15M PRN IM DECREASED GLUCOSE; Start 07/20/18 at 23: 00 Glucose (Glutose) 15 gm Q15M PRN BUCCAL DECREASED GLUCOSE; Start 07/20/18 at 23:00 Melatonin (Melatonin) 3 mg HS PRN PO INSOMNIA; Start 07/20/18 at 23:00 Heparin Sodium (Porcine) 5,000 unit Q12 SC Last administered on 07/24/18at 10: 39; Admin Dose 5,000 UNIT; Start 07/21/18 at 21:00 Diclofenac Sodium (Voltaren 1% Gel) 2 gm QID TP Last administered on at 13:10; Admin Dose 2 GM; Start 07/22/18 at 13:00 Albumin Human 50 ml @ 100 mls/hr WITH DIALYSIS PRN IV SBP < 90 DURING DIALYSIS ; Start 07/22/18 at 14:00 Sodium Chloride (NS) -To prime the dialy... DIRECTED FOR HD PRN IV HD; Start 07/22/18 at 14:00 Patiromer (Veltassa) 8.4 gm WITH LUNCH PO ; Start 07/23/18 at 13:30 Heparin Sodium (Porcine) (Heparin (1000 Units/ml)) 4,700 unit AFTER DIALYSIS CATHETER Last administered on 07/24/18at 11:00; Admin Dose 4,700 UNIT; Start 07/24/18 at 09:00 BRIAN ROBLEDO MD Jul 24, 2018 15:30
[2018-07-24 19:45] VITALS: BP 104/64; PULSE 73; RESP 18
[2018-07-24] MEDS: GABAPENTIN 300 MG CAP PO SCH (21:14)
[2018-07-24] MEDS: traZODone 50 MG TAB PO SCH (21:14)
[2018-07-24] MEDS: traMADol 50 MG TAB PO PRN (21:21)
[2018-07-25] MEDS: ACCU-CHEK XX SCH (02:00)
[2018-07-25 02:09] VITALS: BP 118/68; PULSE 85; RESP 16
[2018-07-25] MEDS: ONDANSETRON 4 MG INJ IV PRN (07:01)
[2018-07-25] MEDS ORDERED: HEPARIN 5,000 UNIT/0.5 ML VIAL ONE ×2 (08:18→21:02)
[2018-07-25] MEDS: ALLOPURINOL 100 MG TAB PO SCH (09:00)
[2018-07-25] MEDS: LOPERAMIDE 2 MG CAP PO SCH (09:00)
[2018-07-25] MEDS: FAMOTIDINE 20 MG TAB PO SCH ×2 (09:01→21:11)
[2018-07-25] MEDS: HEPARIN 5,000 UNIT/1 ML VIAL SC SCH ×2 (09:03→21:11)
[2018-07-25] MEDS: INSULIN ASPART [NOVOLOG] 3 ML PEN SC SCH ×4 (09:04→21:10)
[2018-07-25] MEDS: DICLOFENAC SODIUM 1% GEL 100 GM TUBE TP SCH ×5 (09:05→21:12)
[2018-07-25] MEDS: BALSAM PERU/CASTOR OIL 60 GM TUBE TOP SCH ×3 (09:05→21:12)
[2018-07-25] MEDS: PATIROMER CALCIUM SORBITEX 16.8 GM PKT PO SCH (11:40)
--- NOTE | 2018-07-25 12:40 | PN ---
Date/Time of Note Date/Time of Note DATE: 07/25/18 TIME: 12:34 Assessment/Plan VTE Prophylaxis VTE Prophylaxis Intervention: SCD's Lines/Catheters IV Catheter Type (from Nrsg): Central Line Central line still needed: Yes Urinary Cath still in place: No Assessment/Plan Chief Complaint/Hosp Course 58 y/o with 1. . ckd, hyperkalemia 2. c diff hx 3. Chronic kidney disease, 4. Morbid obesity. 5. Diabetes. 6. Hypertension, 7. Gout.hx 8. Neuropathy. 9. History of congestive heart failure. 10 weakness 11 deconditioning Plan - Will get MRI lumbar spine to determine any lumbar disease which is contributing to her weakness, now in front OF CM, Socail worker, pt agreed for MRI - Explained to patient about her kidney disease and necessity to take veltass/ kayexalate and pt said that she does not want to be poopoing all time with no body to take care of her on time and would not rather get it so discussed with her necessity of needing HD then may be once a week> pt agreed - will get labs - Pt has absolute refusal to Hospice - c/w PT twice a day - PT eval - avoid narcotics - c/w gabapentin - low k diet Subjective 24 Hr Interval Summary Free Text/Dictation Patient got an hour of HD session yesterday Spoke to the patient with the front of the social insurance adviser Leighton /manager construction/ window caser Gali at the bedside explained to her the reasoning behind getting an MRI Exam/Review of Systems Vital Signs Vitals Vital Signs Date Time Temp Pulse Resp B/P (MAP) Pulse Ox O2 Delivery O2 Flow Rate FiO2 07/25/18 02:09 98.8 85 16 118/68 (85) 90 Room Air 07/24/18 08:45 2.0 Intake and Output 07/24/18 07/24/18 07/25/18 15:00 23:00 07:00 Intake Total 400 ml 690 ml 120 ml Output Total 450 ml Balance -50 ml 690 ml 120 ml Exam Exam Neck: supple Respiratory: clear to auscultation Cardiovascular: regular rate and rhythm Gastrointestinal: soft Extremities: edema (+) Neurological: GRIP BOSS II-XII intact, nl mental status, nl speech, nl strength Results Result Diagram: 07/23/18 1042 07/24/18 1100 Results 24 hrs Laboratory Tests Test 07/24/18 21:10 07/25/18 02:10 07/25/18 08:59 Bedside Glucose 185 164 153 Medications Medications Current Medications Acetaminophen (Tylenol Tab) 325 mg Q4H PRN PO MILD PAIN(1-3)OR ELEVATED TEMP; Start 07/20/18 at 23:00 Allopurinol (Zyloprim) 100 mg DAILY PO Last administered on 07/25/18at 09:00; Admin Dose 100 MG; Start 07/21/18 at 09:00 Diphenhydramine HCl (Benadryl) 25 mg QHS PRN PO ITCHING; Start 07/20/18 at 23: 00 Gabapentin (Neurontin) 300 mg HS PO Last administered on 07/24/18at 21:14; Admin Dose 300 MG; Start 07/21/18 at 21:00 Loperamide HCl (Imodium Cap) 2 mg DAILY PO Last administered on 07/25/18at 09: 00; Admin Dose 2 MG; Start 07/21/18 at 09:00 Trazodone HCl (Desyrel) 50 mg QHS PO Last administered on 07/24/18at 21:14; Admin Dose 50 MG; Start 07/21/18 at 21:00 IV Flush (NS 3 ml) 3 ml PER PROTOCOL IV ; Start 07/20/18 at 23:00 Ondansetron HCl (Zofran Inj) 4 mg Q6H PRN IV NAUSEA AND/OR VOMITING Last administered on 07/25/18at 07:01; Admin Dose 4 MG; Start 07/20/18 at 23:00 Acetaminophen (Tylenol Tab) 650 mg Q6H PRN PO PAIN LEVEL 1-3 OR FEVER; Start 07/20/18 at 23:00 Acetaminophen (Tylenol Supp) 650 mg Q6H PRN [place] PAIN LEVEL 1-3 OR FEVER; Start 07/20/18 at 23:00 Docusate Sodium (Colace) 100 mg Q12H PRN PO CONSTIPATION; Start 07/20/18 at 23 :00 Bisacodyl (Dulcolax) 5 mg DAILY PRN PO CONSTIPATION; Start 07/20/18 at 23:00 Famotidine (Pepcid) 20 mg Q12 PO Last administered on 07/25/18at 09:01; Admin Dose 20 MG; Start 07/21/18 at 09:00 Diagnostic Test (Pha) (Accu-Chek) 1 ea 02 XX Last administered on 07/24/18at 02 :12; Admin Dose 1 EA; Start 07/21/18 at 02:00 Insulin Aspart (Novolog Insulin Pen) NOVOLOG *MILD* ALGORITHM WITH MEALS BEDTIME SC Last administered on 07/25/18at 09:04; Admin Dose 1 UNIT; Start at 07:50 Ergocalciferol (Drisdol) 50,000 unit Lacy@0900 PO Last administered on at 10:34; Admin Dose 50,000 UNIT; Start 07/24/18 at 09:00 Tramadol HCl (Ultram) 50 mg Q6H PRN PO PAIN LEVEL 6-10 Last administered on at 21:21; Admin Dose 50 MG; Start 07/20/18 at 23:00 Miscellaneous Information 1 ea NOTE XX ; Start 07/20/18 at 23:00 Glucose (Glutose) 15 gm Q15M PRN PO DECREASED GLUCOSE; Start 07/20/18 at 23:00 Glucose (Glutose) 22.5 gm Q15M PRN PO DECREASED GLUCOSE; Start 07/20/18 at 23: 00 Dextrose (D50w Syringe) 25 ml Q15M PRN IV DECREASED GLUCOSE; Start 07/20/18 at 23:00 Dextrose (D50w Syringe) 50 ml Q15M PRN IV DECREASED GLUCOSE; Start 07/20/18 at 23:00 Glucagon (Glucagen) 1 mg Q15M PRN IM DECREASED GLUCOSE; Start 07/20/18 at 23: 00 Glucose (Glutose) 15 gm Q15M PRN BUCCAL DECREASED GLUCOSE; Start 07/20/18 at 23:00 Melatonin (Melatonin) 3 mg HS PRN PO INSOMNIA; Start 07/20/18 at 23:00 Heparin Sodium (Porcine) 5,000 unit Q12 SC Last administered on 07/25/18at 09: 03; Admin Dose 5,000 UNIT; Start 07/21/18 at 21:00 Diclofenac Sodium (Voltaren 1% Gel) 2 gm QID TP Last administered on at 09:05; Admin Dose 2 GM; Start 07/22/18 at 13:00 Albumin Human 50 ml @ 100 mls/hr WITH DIALYSIS PRN IV SBP < 90 DURING DIALYSIS ; Start 07/22/18 at 14:00 Sodium Chloride (NS) -To prime the dialy... DIRECTED FOR HD PRN IV HD; Start 07/22/18 at 14:00 Patiromer (Veltassa) 8.4 gm WITH LUNCH PO ; Start 07/23/18 at 13:30 Heparin Sodium (Porcine) (Heparin (1000 Units/ml)) 4,700 unit AFTER DIALYSIS CATHETER Last administered on 07/24/18at 11:00; Admin Dose 4,700 UNIT; Start 07/24/18 at 09:00 KOFI SWANN MD Jul 25, 2018 12:40
[2018-07-25 19:49] VITALS: BP 110/70; PULSE 78; RESP 16
[2018-07-25] MEDS: PATIROMER CALCIUM SORBITEX 8.4 GM PKT PO SCH (21:00)
[2018-07-25] MEDS: GABAPENTIN 300 MG CAP PO SCH (21:11)
[2018-07-25] MEDS: traZODone 50 MG TAB PO SCH (21:11)
[2018-07-26 01:59] VITALS: BP 115/61; PULSE 72; RESP 18
[2018-07-26] MEDS: ACCU-CHEK XX SCH (02:00)
[2018-07-26] MEDS: PATIROMER CALCIUM SORBITEX 8.4 GM PKT PO SCH (05:00)
[2018-07-26] MEDS: LOPERAMIDE 2 MG CAP PO SCH (09:00)
[2018-07-26 09:40] VITALS: BP 135/57; PULSE 71; RESP 18
[2018-07-26] MEDS ORDERED: HEPARIN 5,000 UNIT/0.5 ML VIAL ONE ×2 (09:48→20:46)
[2018-07-26] MEDS: DICLOFENAC SODIUM 1% GEL 100 GM TUBE TP SCH ×4 (09:51→21:49)
[2018-07-26] MEDS: FAMOTIDINE 20 MG TAB PO SCH ×2 (09:51→21:50)
[2018-07-26] MEDS: BALSAM PERU/CASTOR OIL 60 GM TUBE TOP SCH ×2 (09:51→21:49)
[2018-07-26] MEDS: ALLOPURINOL 100 MG TAB PO SCH (09:51)
[2018-07-26] MEDS: HEPARIN 5,000 UNIT/1 ML VIAL SC SCH ×2 (09:53→21:51)
[2018-07-26] MEDS: INSULIN ASPART [NOVOLOG] 3 ML PEN SC SCH ×4 (09:53→21:53)
[2018-07-26] MEDS: PATIROMER CALCIUM SORBITEX 16.8 GM PKT PO SCH (11:40)
[2018-07-26] MEDS ORDERED: FUROSEMIDE 40 MG INJ IV ONE (12:30)
--- NOTE | 2018-07-26 12:31 | PN ---
Date/Time of Note Date/Time of Note DATE: 07/26/18 TIME: 12:27 Assessment/Plan VTE Prophylaxis VTE Prophylaxis Intervention: SCD's Lines/Catheters IV Catheter Type (from Nrs): Central Line Central line still needed: Yes Urinary Cath still in place: No Assessment/Plan Chief Complaint/Hosp Course 58 y/o with 1. . ckd iii-iv now with the complications of hyperkalemia, patient has been refusing Kayexalate Veltassa has also been refusing dialysis, patient was explained the risks and consequences and patient completely understands the risks and consequences 2. c diff hx 3. Chronic kidney disease, 4. Morbid obesity. 5. Diabetes. 6. Hypertension, 7. Gout.hx 8. Neuropathy. 9. History of congestive heart failure. 10 weakness 11 deconditioning Plan -Was decided yesterday that patient will at least continue with hemodialysis for high potassium at least once a week however patient refused hemodialysis yesterday, and refusing it again today , patient says that he is tired of all the doctors and will be here for physical therapy and just want to continue with physical therapy, explained to her that which if she does not want to get her labs checked however she said this and gets agitated if asked that question , explained to her that if we are getting labs done then we have to take an action against it, and if her potassium is high she needs to get some form of treatment but patient is adamantly refusing it, these she knows the side effects of high potassium, nothing has happened to her all the smiling so nothing can happen to her again -Will call Dr. Haq for palliative care - Pt has absolute refusal to Hospice - c/w PT twice a day - PT eval - avoid narcotics - c/w gabapentin -Add Lasix for K excretion - low k diet Subjective 24 Hr Interval Summary Free Text/Dictation HD was called yesterday as potassium has high however patient refused dialysis Patient could not be fit in the MRI machine checked with the technician automatic Exam/Review of Systems Vital Signs Vitals Vital Signs Date Time Temp Pulse Resp B/P (MAP) Pulse Ox O2 Delivery O2 Flow Rate FiO2 07/26/18 01:59 98.8 72 18 115/61 (79) 96 Room Air 07/24/18 08:45 2.0 Intake and Output 07/25/18 07/25/18 07/26/18 15:00 23:00 07:00 Intake Total 400 ml 100 ml 400 ml Balance 400 ml 100 ml 400 ml Exam Neck: supple Respiratory: clear to auscultation Cardiovascular: regular rate and rhythm Gastrointestinal: soft Extremities: edema (+) Neurological: RN CVOR II-XII intact, nl mental status, nl speech, nl strength Results Result Diagram: 07/23/18 1042 07/25/18 1904 Results 24 hrs Laboratory Tests Test 07/25/18 13:04 07/25/18 17:44 07/25/18 19:04 07/25/18 21:07 Bedside Glucose 160 222 H 217 Sodium Level 137 Potassium Level 6.1 *H Chloride Level 109 Carbon Dioxide Level 21 Anion Gap 7 Blood Urea Nitrogen 62 H Creatinine 3.12 H Glucose Level 227 H Calcium Level 8.7 Test 07/26/18 02:09 07/26/18 09:42 Bedside Glucose 173 155 Medications Medications Current Medications Acetaminophen (Tylenol Tab) 325 mg Q4H PRN PO MILD PAIN(1-3)OR ELEVATED TEMP; Start 07/20/18 at 23:00 Allopurinol (Zyloprim) 100 mg DAILY PO Last administered on 07/26/18at 09:51; Admin Dose 100 MG; Start 07/21/18 at 09:00 Diphenhydramine HCl (Benadryl) 25 mg QHS PRN PO ITCHING; Start 07/20/18 at 23: 00 Gabapentin (Neurontin) 300 mg HS PO Last administered on 07/25/18at 21:11; Admin Dose 300 MG; Start 07/21/18 at 21:00 Loperamide HCl (Imodium Cap) 2 mg DAILY PO Last administered on 07/25/18at 09: 00; Admin Dose 2 MG; Start 07/21/18 at 09:00 Trazodone HCl (Desyrel) 50 mg QHS PO Last administered on 07/25/18at 21:11; Admin Dose 50 MG; Start 07/21/18 at 21:00 IV Flush (NS 3 ml) 3 ml PER PROTOCOL IV ; Start 07/20/18 at 23:00 Ondansetron HCl (Zofran Inj) 4 mg Q6H PRN IV NAUSEA AND/OR VOMITING Last administered on 07/25/18at 07:01; Admin Dose 4 MG; Start 07/20/18 at 23:00 Acetaminophen (Tylenol Tab) 650 mg Q6H PRN PO PAIN LEVEL 1-3 OR FEVER; Start 07/20/18 at 23:00 Acetaminophen (Tylenol Supp) 650 mg Q6H PRN [place] PAIN LEVEL 1-3 OR FEVER; Start 07/20/18 at 23:00 Docusate Sodium (Colace) 100 mg Q12H PRN PO CONSTIPATION; Start 07/20/18 at 23 :00 Bisacodyl (Dulcolax) 5 mg DAILY PRN PO CONSTIPATION; Start 07/20/18 at 23:00 Famotidine (Pepcid) 20 mg Q12 PO Last administered on 07/26/18at 09:51; Admin Dose 20 MG; Start 07/21/18 at 09:00 Diagnostic Test (Pha) (Accu-Chek) 1 ea 02 XX Last administered on 07/24/18at 02 :12; Admin Dose 1 EA; Start 07/21/18 at 02:00 Insulin Aspart (Novolog Insulin Pen) NOVOLOG *MILD* ALGORITHM WITH MEALS BEDTIME SC Last administered on 07/26/18at 09:53; Admin Dose 1 UNIT; Start at 07:50 Ergocalciferol (Drisdol) 50,000 unit Lacy@0900 PO Last administered on at 10:34; Admin Dose 50,000 UNIT; Start 07/24/18 at 09:00 Tramadol HCl (Ultram) 50 mg Q6H PRN PO PAIN LEVEL 6-10 Last administered on at 21:21; Admin Dose 50 MG; Start 07/20/18 at 23:00 Miscellaneous Information 1 ea NOTE XX ; Start 07/20/18 at 23:00 Glucose (Glutose) 15 gm Q15M PRN PO DECREASED GLUCOSE; Start 07/20/18 at 23:00 Glucose (Glutose) 22.5 gm Q15M PRN PO DECREASED GLUCOSE; Start 07/20/18 at 23: 00 Dextrose (D50w Syringe) 25 ml Q15M PRN IV DECREASED GLUCOSE; Start 07/20/18 at 23:00 Dextrose (D50w Syringe) 50 ml Q15M PRN IV DECREASED GLUCOSE; Start 07/20/18 at 23:00 Glucagon (Glucagen) 1 mg Q15M PRN IM DECREASED GLUCOSE; Start 07/20/18 at 23: 00 Glucose (Glutose) 15 gm Q15M PRN BUCCAL DECREASED GLUCOSE; Start 07/20/18 at 23:00 Melatonin (Melatonin) 3 mg HS PRN PO INSOMNIA; Start 07/20/18 at 23:00 Heparin Sodium (Porcine) 5,000 unit Q12 SC Last administered on 07/26/18at 09: 53; Admin Dose 5,000 UNIT; Start 07/21/18 at 21:00 Diclofenac Sodium (Voltaren 1% Gel) 2 gm QID TP Last administered on at 09:51; Admin Dose 2 GM; Start 07/22/18 at 13:00 Albumin Human 50 ml @ 100 mls/hr WITH DIALYSIS PRN IV SBP < 90 DURING DIALYSIS ; Start 07/22/18 at 14:00 Sodium Chloride (NS) -To prime the dialy... DIRECTED FOR HD PRN IV HD; Start 07/22/18 at 14:00 Patiromer (Veltassa) 8.4 gm WITH LUNCH PO ; Start 07/23/18 at 13:30 Heparin Sodium (Porcine) (Heparin (1000 Units/ml)) 4,700 unit AFTER DIALYSIS CATHETER Last administered on 07/24/18at 11:00; Admin Dose 4,700 UNIT; Start 07/24/18 at 09:00 Furosemide (Lasix) 40 mg ONCE ONCE IV ; Start 07/26/18 at 12:30; Stop at 12:31; Status KOFI OBRIEN MD Jul 26, 2018 12:31
[2018-07-26] MEDS ORDERED: CALCIUM GLUCONATE 10% 1 GM in DEXTROSE 5% 100 ML IVPB SCH (14:00)
[2018-07-26] MEDS: traMADol 50 MG TAB PO PRN (15:22)
--- NOTE | 2018-07-26 15:52 | RADRPT ---
Vent Rate: 75 bpm RR Interval: 0 msec [place] Interval: 164 msec QRS Duration: 106 msec QT Interval: 394 msec QTC Interval: 439 msec P-R-T [place]: 18 - -42 - 43 degrees Normal sinus rhythm with sinus arrhythmia Left axis deviation Abnormal ECG Electronically Signed By: Oscar Pretty [id number]
[2018-07-26 19:40] VITALS: BP 107/56; PULSE 84; RESP 18
[2018-07-26] MEDS: traZODone 50 MG TAB PO SCH (21:50)
[2018-07-26] MEDS: GABAPENTIN 300 MG CAP PO SCH (21:50)
[2018-07-27 02:27] VITALS: BP 115/53; PULSE 88; RESP 20
[2018-07-27] MEDS: ACCU-CHEK XX SCH (02:27)
[2018-07-27 08:00] VITALS: BP 119/83; PULSE 88; RESP 18
--- NOTE | 2018-07-27 08:46 | CONS ---
Date/Time of Note Date/Time of Note DATE: 07/27/18 TIME: 08:41 Assessment/Plan Assessment/Plan Additional Assessment/Plan Postdated note on this 58-year-old female my first history and physical consultation has [facility]. This patient was transferred to [facility] for dialysis transferred from an outside facility secondary to insurance reasons. She has been refusing dialysis and presented this time with very high BUN and creatinine and potassium greater than 6. She has no renal symptoms but has been extremely difficult with nursing staff as well as medical doctors. She says everybody is lying to her. I had a long conversation with her yesterday and told her I would review her medical records which I have done. When I presented today she states that she does not trust me that I told her I would review all the medical records since she states that it did not do so that I lied her also. She became platelet verbally out of control and started to scream at me that she wanted me to get out and do not touch her. I told her without dialysis there is a possibility that her heart may stop. She still told me she wanted me to get out of the room and not discuss anything further with her she states that her wound lies to her. She will not give me any further history of present illness symptoms past medical history family history review of systems are once again allow me to examine her. Unfortunately I recommend psychiatric consultation early for documentation reasons I feel the patient is competent enough to make a decision on her own behalf. Patient has refused palliative care and hospice care therefore I would recommend case management to discuss discharge with her I am so sorry that I could be of more help in assisting with this lady's ongoing level of care. Hopefully psychiatric consultation can assessed by Consultation Date/Type/Reason Admit Date/Time Past Medical History Medical History: diabetes, high cholesterol, hypertension, renal disease Social History Alcohol Use: none Smoking Status: Never smoker Exam/Review of Systems Vital Signs Vitals Vital Signs Date Time Temp Pulse Resp B/P (MAP) Pulse Ox O2 Delivery O2 Flow Rate FiO2 07/27/18 08:00 97.9 88 18 119/83 (95) 97 07/27/18 02:27 Room Air 07/24/18 08:45 2.0 Intake and Output 07/26/18 07/26/18 07/27/18 15:00 23:00 07:00 Intake Total 720 ml 710 ml 800 ml Balance 720 ml 710 ml 800 ml Results Result Diagram: 07/26/18 1620 07/26/18 1620 Results 24 hrs Laboratory Tests Test 07/26/18 09:42 07/26/18 13:47 07/26/18 16:20 07/26/18 17:42 Bedside Glucose 155 178 192 White Blood Count 9.7 Red Blood Count 4.36 Hemoglobin 11.6 L Hematocrit 38.9 Mean Corpuscular Volume 89.2 Mean Corpuscular Hemoglobin 26.6 L Mean Corpuscular Hemoglobin Concent 29.8 L Red Cell Distribution Width 16.6 H Platelet Count 214 Mean Platelet Volume 10.5 H Immature Granulocytes % 0.400 Neutrophils % 73.1 Lymphocytes % 17.8 Monocytes % 5.4 Eosinophils % 2.9 Basophils % 0.4 Nucleated Red Blood Cells % 0.0 Immature Granulocytes # 0.040 H Neutrophils # 7.1 Lymphocytes # 1.7 Monocytes # 0.5 Eosinophils # 0.3 Basophils # 0.0 Nucleated Red Blood Cells # 0.0 Sodium Level 137 Potassium Level 5.9 H Chloride Level 108 Carbon Dioxide Level 21 Anion Gap 8 Blood Urea Nitrogen 60 H Creatinine 2.81 H Glucose Level 282 H Calcium Level 8.4 Phosphorus Level 4.0 Magnesium Level 1.9 Test 07/26/18 21:48 07/27/18 02:08 07/27/18 08:37 Bedside Glucose 192 159 155 Medications Medications Current Medications Acetaminophen (Tylenol Tab) 325 mg Q4H PRN PO MILD PAIN(1-3)OR ELEVATED TEMP; Start 07/20/18 at 23:00 Allopurinol (Zyloprim) 100 mg DAILY PO Last administered on 07/26/18at 09:51; Admin Dose 100 MG; Start 07/21/18 at 09:00 Diphenhydramine HCl (Benadryl) 25 mg QHS PRN PO ITCHING; Start 07/20/18 at 23: 00 Gabapentin (Neurontin) 300 mg HS PO Last administered on 07/26/18at 21:50; Admin Dose 300 MG; Start 07/21/18 at 21:00 Loperamide HCl (Imodium Cap) 2 mg DAILY PO Last administered on 07/25/18at 09: 00; Admin Dose 2 MG; Start 07/21/18 at 09:00 Trazodone HCl (Desyrel) 50 mg QHS PO Last administered on 07/26/18at 21:50; Admin Dose 50 MG; Start 07/21/18 at 21:00 IV Flush (NS 3 ml) 3 ml PER PROTOCOL IV ; Start 07/20/18 at 23:00 Ondansetron HCl (Zofran Inj) 4 mg Q6H PRN IV NAUSEA AND/OR VOMITING Last administered on 07/25/18at 07:01; Admin Dose 4 MG; Start 07/20/18 at 23:00 Acetaminophen (Tylenol Tab) 650 mg Q6H PRN PO PAIN LEVEL 1-3 OR FEVER; Start 07/20/18 at 23:00 Acetaminophen (Tylenol Supp) 650 mg Q6H PRN OR PAIN LEVEL 1-3 OR FEVER; Start 07/20/18 at 23:00 Docusate Sodium (Colace) 100 mg Q12H PRN PO CONSTIPATION; Start 07/20/18 at 23 :00 Bisacodyl (Dulcolax) 5 mg DAILY PRN PO CONSTIPATION; Start 07/20/18 at 23:00 Famotidine (Pepcid) 20 mg Q12 PO Last administered on 07/26/18at 21:50; Admin Dose 20 MG; Start 07/21/18 at 09:00 Diagnostic Test (Pha) (Accu-Chek) 1 ea 02 XX Last administered on 07/27/18at 02 :27; Admin Dose 1 EA; Start 07/21/18 at 02:00 Insulin Aspart (Novolog Insulin Pen) NOVOLOG *MILD* ALGORITHM WITH MEALS BEDTIME SC Last administered on 07/26/18at 21:53; Admin Dose 1 UNIT; Start at 07:50 Ergocalciferol (Drisdol) 50,000 unit Lacy@0900 PO Last administered on at 10:34; Admin Dose 50,000 UNIT; Start 07/24/18 at 09:00 Tramadol HCl (Ultram) 50 mg Q6H PRN PO PAIN LEVEL 6-10 Last administered on at 15:22; Admin Dose 50 MG; Start 07/20/18 at 23:00 Miscellaneous Information 1 ea NOTE XX ; Start 07/20/18 at 23:00 Glucose (Glutose) 15 gm Q15M PRN PO DECREASED GLUCOSE; Start 07/20/18 at 23:00 Glucose (Glutose) 22.5 gm Q15M PRN PO DECREASED GLUCOSE; Start 07/20/18 at 23: 00 Dextrose (D50w Syringe) 25 ml Q15M PRN IV DECREASED GLUCOSE; Start 07/20/18 at 23:00 Dextrose (D50w Syringe) 50 ml Q15M PRN IV DECREASED GLUCOSE; Start 07/20/18 at 23:00 Glucagon (Glucagen) 1 mg Q15M PRN IM DECREASED GLUCOSE; Start 07/20/18 at 23: 00 Glucose (Glutose) 15 gm Q15M PRN BUCCAL DECREASED GLUCOSE; Start 07/20/18 at 23:00 Melatonin (Melatonin) 3 mg HS PRN PO INSOMNIA; Start 07/20/18 at 23:00 Heparin Sodium (Porcine) 5,000 unit Q12 SC Last administered on 07/26/18at 21: 51; Admin Dose 5,000 UNIT; Start 07/21/18 at 21:00 Diclofenac Sodium (Voltaren 1% Gel) 2 gm QID TP Last administered on at 21:49; Admin Dose 2 GM; Start 07/22/18 at 13:00 Albumin Human 50 ml @ 100 mls/hr WITH DIALYSIS PRN IV SBP < 90 DURING DIALYSIS ; Start 07/22/18 at 14:00 Sodium Chloride (NS) -To prime the dialy... DIRECTED FOR HD PRN IV HD; Start 07/22/18 at 14:00 Patiromer (Veltassa) 8.4 gm WITH LUNCH PO ; Start 07/23/18 at 13:30 Heparin Sodium (Porcine) (Heparin (1000 Units/ml)) 4,700 unit AFTER DIALYSIS CATHETER Last administered on 07/24/18at 11:00; Admin Dose 4,700 UNIT; Start 07/24/18 at 09:00 VISH URIBE Jul 27, 2018 08:46
[2018-07-27] MEDS ORDERED: HEPARIN 5,000 UNIT/0.5 ML VIAL ONE ×2 (10:14→21:10)
[2018-07-27] MEDS: DICLOFENAC SODIUM 1% GEL 100 GM TUBE TP SCH ×4 (10:20→21:18)
[2018-07-27] MEDS: BALSAM PERU/CASTOR OIL 60 GM TUBE TOP SCH ×2 (10:20→21:19)
[2018-07-27] MEDS: LOPERAMIDE 2 MG CAP PO SCH (10:20)
[2018-07-27] MEDS: ALLOPURINOL 100 MG TAB PO SCH (10:20)
[2018-07-27] MEDS: FAMOTIDINE 20 MG TAB PO SCH ×2 (10:20→21:17)
[2018-07-27] MEDS: HEPARIN 5,000 UNIT/1 ML VIAL SC SCH ×2 (10:23→21:34)
[2018-07-27] MEDS: INSULIN ASPART [NOVOLOG] 3 ML PEN SC SCH ×4 (10:24→21:34)
--- NOTE | 2018-07-27 11:24 | PN ---
Date/Time of Note Date/Time of Note DATE: 07/27/18 TIME: 11:15 Assessment/Plan VTE Prophylaxis VTE Prophylaxis Intervention: SCD's Lines/Catheters IV Catheter Type (from Nrs): permacath Urinary Cath still in place: No Assessment/Plan Chief Complaint/Hosp Course 58 y/o with 1. . ckd iii-iv now with the complications of hyperkalemia, patient has been refusing Kayexalate Veltassa has also been refusing dialysis, patient was explained the risks and consequences and patient completely understands the risks and consequences 2. c diff hx 3. Chronic kidney disease, 4. Morbid obesity. 5. Diabetes. 6. Hypertension, 7. Gout.hx 8. Neuropathy. 9. History of congestive heart failure. 10 weakness 11 deconditioning Plan -Was decided yesterday that patient will at least continue with hemodialysis for high potassium at least once a week however patient refused hemodialysis yesterday, and refusing it again today , patient says that he is tired of all the doctors and will be here for physical therapy and just want to continue with physical therapy, explained to her that which if she does not want to get her labs checked however she said this and gets agitated if asked that question , explained to her that if we are getting labs done then we have to take an action against it, and if her potassium is high she needs to get some form of treatment but patient is adamantly refusing it, these she knows the side effects of high potassium, nothing has happened to her all this time, pt said that she will get HD on Fridays and pt is verbally abusive to all physicians and telling physicians to get out - Spoke to patient that she will need snif vs home PT as she is refusing HD here, but pt adamantly refused to SNIF - Will look into SW pt is talking about to arrnage for home health and PT - Pt wants medical treatment her own way - Wound care - Will get Arterial U/S at graft site - c/w PT twice a day - avoid narcotics as it would limit her ability to walk for PT as it happened last admission since pts goal is Physical therapy - Pt fired Dr Haq out of room as she kept on telling me that she didnt want anybody to bother her at 7 am - c/w gabapentin -cw Lasix for K excretion - low k diet Subjective 24 Hr Interval Summary Free Text/Dictation Patient complained of pain at the left arm at the graft site,explained to the patient that we will get the ultrasound at the graft site I discussed with the patient about PT needs and if the patient might need care home versus home with physical therapy, however patient adamantly refused to care home says that she has home, and explained to her about the need for hemodialysis but she said that dialysis is her problem she will arrange for it and" why are you worried about hemodialysis I will arrange for it " explained to the patient that we have to arrange for a safe discharge however she started getting angry Patient's potassium has been persistently high however patient had been refusing hemodialysis refused to be on Veltassa and Kayexalate pt wishes the medical management to be done in her own way and said that she would do dialysis on Wednesday evening She was verbally abusive also to Dr. Haq and told him to get out Patient also threatened me and told me to get out of the room Exam/Review of Systems Vital Signs Vitals Vital Signs Date Time Temp Pulse Resp B/P (MAP) Pulse Ox O2 Delivery O2 Flow Rate FiO2 07/27/18 08:00 97.9 88 18 119/83 (95) 97 07/27/18 02:27 Room Air 07/24/18 08:45 2.0 Intake and Output 07/26/18 07/26/18 07/27/18 14:59 22:59 06:59 Intake Total 720 ml 710 ml 800 ml Balance 720 ml 710 ml 800 ml Exam Neck: supple Respiratory: clear to auscultation Cardiovascular: regular rate and rhythm Gastrointestinal: soft Extremities: edema (+) Neurological: PSYCH ASSISTANT II-XII intact, nl mental status, nl speech, nl strength rt permacath Results Result Diagram: 07/26/18 1620 07/26/18 1620 Results 24 hrs Laboratory Tests Test 07/26/18 13:47 07/26/18 16:20 07/26/18 17:42 07/26/18 21:48 Bedside Glucose 178 192 192 White Blood Count 9.7 Red Blood Count 4.36 Hemoglobin 11.6 L Hematocrit 38.9 Mean Corpuscular Volume 89.2 Mean Corpuscular Hemoglobin 26.6 L Mean Corpuscular Hemoglobin Concent 29.8 L Red Cell Distribution Width 16.6 H Platelet Count 214 Mean Platelet Volume 10.5 H Immature Granulocytes % 0.400 Neutrophils % 73.1 Lymphocytes % 17.8 Monocytes % 5.4 Eosinophils % 2.9 Basophils % 0.4 Nucleated Red Blood Cells % 0.0 Immature Granulocytes # 0.040 H Neutrophils # 7.1 Lymphocytes # 1.7 Monocytes # 0.5 Eosinophils # 0.3 Basophils # 0.0 Nucleated Red Blood Cells # 0.0 Sodium Level 137 Potassium Level 5.9 H Chloride Level 108 Carbon Dioxide Level 21 Anion Gap 8 Blood Urea Nitrogen 60 H Creatinine 2.81 H Glucose Level 282 H Calcium Level 8.4 Phosphorus Level 4.0 Magnesium Level 1.9 Test 07/27/18 02:08 07/27/18 08:37 Bedside Glucose 159 155 Medications Medications Current Medications Acetaminophen (Tylenol Tab) 325 mg Q4H PRN PO MILD PAIN(1-3)OR ELEVATED TEMP; Start 07/20/18 at 23:00 Allopurinol (Zyloprim) 100 mg DAILY PO Last administered on 07/27/18at 10:20; Admin Dose 100 MG; Start 07/21/18 at 09:00 Diphenhydramine HCl (Benadryl) 25 mg QHS PRN PO ITCHING; Start 07/20/18 at 23: 00 Gabapentin (Neurontin) 300 mg HS PO Last administered on 07/26/18at 21:50; Admin Dose 300 MG; Start 07/21/18 at 21:00 Loperamide HCl (Imodium Cap) 2 mg DAILY PO Last administered on 07/27/18at 10: 20; Admin Dose 2 MG; Start 07/21/18 at 09:00 Trazodone HCl (Desyrel) 50 mg QHS PO Last administered on 07/26/18at 21:50; Admin Dose 50 MG; Start 07/21/18 at 21:00 IV Flush (NS 3 ml) 3 ml PER PROTOCOL IV ; Start 07/20/18 at 23:00 Ondansetron HCl (Zofran Inj) 4 mg Q6H PRN IV NAUSEA AND/OR VOMITING Last administered on 07/25/18at 07:01; Admin Dose 4 MG; Start 07/20/18 at 23:00 Acetaminophen (Tylenol Tab) 650 mg Q6H PRN PO PAIN LEVEL 1-3 OR FEVER; Start 07/20/18 at 23:00 Acetaminophen (Tylenol Supp) 650 mg Q6H PRN [place] PAIN LEVEL 1-3 OR FEVER; Start 07/20/18 at 23:00 Docusate Sodium (Colace) 100 mg Q12H PRN PO CONSTIPATION; Start 07/20/18 at 23 :00 Bisacodyl (Dulcolax) 5 mg DAILY PRN PO CONSTIPATION; Start 07/20/18 at 23:00 Famotidine (Pepcid) 20 mg Q12 PO Last administered on 07/27/18at 10:20; Admin Dose 20 MG; Start 07/21/18 at 09:00 Diagnostic Test (Pha) (Accu-Chek) 1 ea 02 XX Last administered on 07/27/18at 02 :27; Admin Dose 1 EA; Start 07/21/18 at 02:00 Insulin Aspart (Novolog Insulin Pen) NOVOLOG *MILD* ALGORITHM WITH MEALS BEDTIME SC Last administered on 07/27/18at 10:24; Admin Dose 1 UNIT; Start at 07:50 Ergocalciferol (Drisdol) 50,000 unit Lacy@0900 PO Last administered on at 10:34; Admin Dose 50,000 UNIT; Start 07/24/18 at 09:00 Tramadol HCl (Ultram) 50 mg Q6H PRN PO PAIN LEVEL 6-10 Last administered on at 15:22; Admin Dose 50 MG; Start 07/20/18 at 23:00 Miscellaneous Information 1 ea NOTE XX ; Start 07/20/18 at 23:00 Glucose (Glutose) 15 gm Q15M PRN PO DECREASED GLUCOSE; Start 07/20/18 at 23:00 Glucose (Glutose) 22.5 gm Q15M PRN PO DECREASED GLUCOSE; Start 07/20/18 at 23: 00 Dextrose (D50w Syringe) 25 ml Q15M PRN IV DECREASED GLUCOSE; Start 07/20/18 at 23:00 Dextrose (D50w Syringe) 50 ml Q15M PRN IV DECREASED GLUCOSE; Start 07/20/18 at 23:00 Glucagon (Glucagen) 1 mg Q15M PRN IM DECREASED GLUCOSE; Start 07/20/18 at 23: 00 Glucose (Glutose) 15 gm Q15M PRN BUCCAL DECREASED GLUCOSE; Start 10/17/18 at 23:00 Melatonin (Melatonin) 3 mg HS PRN PO INSOMNIA; Start 07/20/18 at 23:00 Heparin Sodium (Porcine) 5,000 unit Q12 SC Last administered on 07/27/18at 10: 23; Admin Dose 5,000 UNIT; Start 07/21/18 at 21:00 Diclofenac Sodium (Voltaren 1% Gel) 2 gm QID TP Last administered on at 10:20; Admin Dose 2 GM; Start 07/22/18 at 13:00 Albumin Human 50 ml @ 100 mls/hr WITH DIALYSIS PRN IV SBP < 90 DURING DIALYSIS ; Start 07/22/18 at 14:00 Sodium Chloride (NS) -To prime the dialy... DIRECTED FOR HD PRN IV HD; Start 07/22/18 at 14:00 Patiromer (Veltassa) 8.4 gm WITH LUNCH PO ; Start 07/23/18 at 13:30 Heparin Sodium (Porcine) (Heparin (1000 Units/ml)) 4,700 unit AFTER DIALYSIS CATHETER Last administered on 07/24/18at 11:00; Admin Dose 4,700 UNIT; Start 07/24/18 at 09:00 KOFI SWANN MD Jul 27, 2018 11:24
[2018-07-27] MEDS: FUROSEMIDE 40 MG TAB PO SCH (11:30)
[2018-07-27] MEDS: PATIROMER CALCIUM SORBITEX 16.8 GM PKT PO SCH (11:40)
[2018-07-27] MEDS ORDERED: ALBUMIN HUMAN 25% 50 ML IV PRN (14:30)
[2018-07-27] MEDS ORDERED: HEPARIN 1000 UNITS/ML 10 ML INJ CATHETER SCH (14:30)
[2018-07-27] MEDS ORDERED: SODIUM CHLORIDE 0.9% 1L BAG IV PRN (14:30)
[2018-07-27 20:30] VITALS: BP 113/68; PULSE 83; RESP 19
[2018-07-27] MEDS: traMADol 50 MG TAB PO PRN (21:15)
[2018-07-27] MEDS: traZODone 50 MG TAB PO SCH (21:17)
[2018-07-27] MEDS: GABAPENTIN 300 MG CAP PO SCH (21:17)
[2018-07-28] VITALS (15 sets, daily range): BP systolic 101–160; BP diastolic 55–72; PULSE 69–85; RESP 16–20
[2018-07-28] MEDS: MELATONIN 3 MG TABLET PO PRN (00:12)
[2018-07-28] MEDS: ACCU-CHEK XX SCH (02:00)
[2018-07-28] MEDS: INSULIN ASPART [NOVOLOG] 3 ML PEN SC SCH ×4 (07:50→21:00)
[2018-07-28] MEDS ORDERED: HEPARIN 5,000 UNIT/0.5 ML VIAL ONE ×2 (08:40→21:21)
[2018-07-28] MEDS: HEPARIN 5,000 UNIT/1 ML VIAL SC SCH ×2 (09:00→21:00)
[2018-07-28] MEDS: FAMOTIDINE 20 MG TAB PO SCH (09:00)
[2018-07-28] MEDS: FUROSEMIDE 40 MG TAB PO SCH (09:00)
[2018-07-28] MEDS: LOPERAMIDE 2 MG CAP PO SCH (09:00)
[2018-07-28] MEDS: DICLOFENAC SODIUM 1% GEL 100 GM TUBE TP SCH ×3 (09:00→17:37)
[2018-07-28] MEDS: ALLOPURINOL 100 MG TAB PO SCH (09:00)
--- NOTE | 2018-07-28 10:08 | PN ---
Date/Time of Note Date/Time of Note DATE: 07/28/18 TIME: 10:08 Assessment/Plan VTE Prophylaxis VTE Prophylaxis Intervention: SCD's Lines/Catheters [facility] Perma Cath Urinary Cath still in place: No Assessment/Plan Chief Complaint/Hosp Course 58 y/o with 1. . ckd iii-iv now with the complications of hyperkalemia, patient has been refusing Kayexalate Veltassa has also been refusing dialysis, patient was explained the risks and consequences and patient completely understands the risks and consequences 2. c diff hx 3. Chronic kidney disease, 4. Morbid obesity. 5. Diabetes. 6. Hypertension, 7. Gout.hx 8. Neuropathy. 9. History of congestive heart failure. 10 weakness 11 deconditioning Plan -HD today - Will look into SW pt is talking about to arrnage for home health and PT -Refused lasix/ oral veltassa or kayexalte - Wound care - US with thrombosed graft - c/w PT twice a day - avoid narcotics as it would limit her ability to walk for PT as it happened last admission since pts goal is Physical therapy - Pt fired Dr Haq out of room as she kept on telling me that she didnt want anybody to bother her at 7 am - c/w gabapentin - low k diet Subjective 24 Hr Interval Summary Free Text/Dictation Pt agreed for HD today Exam/Review of Systems Vital Signs Vitals Vital Signs Date Time Temp Pulse Resp B/P (MAP) Pulse Ox O2 Delivery O2 Flow Rate FiO2 07/27/18 20:30 98.3 83 19 113/68 (83) 97 07/27/18 02:27 Room Air 07/24/18 08:45 2.0 Intake and Output 07/27/18 07/27/18 07/28/18 15:00 23:00 07:00 Intake Total 600 ml 600 ml Balance 600 ml 600 ml Exam Neck: supple Respiratory: clear to auscultation Cardiovascular: regular rate and rhythm Gastrointestinal: soft Extremities: edema (+) Neurological: ANATOMY AND PHYSIOLOGY INSTRUCTOR II-XII intact, nl mental status, nl speech, nl strength rt permacath Results Result Diagram: 07/26/18 1620 07/27/18 1139 Results 24 hrs Laboratory Tests Test 07/27/18 11:39 07/27/18 12:42 07/27/18 17:54 07/27/18 21:21 Sodium Level 139 Potassium Level 6.0 H Chloride Level 106 Carbon Dioxide Level 25 Anion Gap 8 Blood Urea Nitrogen 65 H Creatinine 3.77 H Est Glomerular Filtrat Rate mL/min 12 L Glucose Level 184 Calcium Level 9.2 Bedside Glucose 169 164 200 Medications Medications Current Medications Acetaminophen (Tylenol Tab) 325 mg Q4H PRN PO MILD PAIN(1-3)OR ELEVATED TEMP; Start 07/20/18 at 23:00 Allopurinol (Zyloprim) 100 mg DAILY PO Last administered on 07/27/18at 10:20; Admin Dose 100 MG; Start 07/21/18 at 09:00 Diphenhydramine HCl (Benadryl) 25 mg QHS PRN PO ITCHING; Start 07/20/18 at 23: 00 Gabapentin (Neurontin) 300 mg HS PO Last administered on 07/27/18at 21:17; Admin Dose 300 MG; Start 07/21/18 at 21:00 Loperamide HCl (Imodium Cap) 2 mg DAILY PO Last administered on 07/27/18at 10: 20; Admin Dose 2 MG; Start 07/21/18 at 09:00 Trazodone HCl (Desyrel) 50 mg QHS PO Last administered on 07/27/18at 21:17; Admin Dose 50 MG; Start 07/21/18 at 21:00 IV Flush (NS 3 ml) 3 ml PER PROTOCOL IV ; Start 07/20/18 at 23:00 Ondansetron HCl (Zofran Inj) 4 mg Q6H PRN IV NAUSEA AND/OR VOMITING Last administered on 07/25/18at 07:01; Admin Dose 4 MG; Start 07/20/18 at 23:00 Acetaminophen (Tylenol Tab) 650 mg Q6H PRN PO PAIN LEVEL 1-3 OR FEVER; Start 07/20/18 at 23:00 Acetaminophen (Tylenol Supp) 650 mg Q6H PRN [place] PAIN LEVEL 1-3 OR FEVER; Start 07/20/18 at 23:00 Docusate Sodium (Colace) 100 mg Q12H PRN PO CONSTIPATION; Start 07/20/18 at 23 :00 Bisacodyl (Dulcolax) 5 mg DAILY PRN PO CONSTIPATION; Start 07/20/18 at 23:00 Famotidine (Pepcid) 20 mg Q12 PO Last administered on 07/27/18 21:17; Admin Dose 20 MG; Start 07/21/18 at 09:00 Diagnostic Test (Pha) (Accu-Chek) 1 ea 02 XX Last administered on 07/27/18at 02 :27; Admin Dose 1 EA; Start 07/21/18 at 02:00 Insulin Aspart (Novolog Insulin Pen) NOVOLOG *MILD* ALGORITHM WITH MEALS BEDTIME SC Last administered on 07/27/18 21:34; Admin Dose 1 UNIT; Start at 07:50 Ergocalciferol (Drisdol) 50,000 unit Lacy@0900 PO Last administered on at 10:34; Admin Dose 50,000 UNIT; Start 07/24/18 at 09:00 Miscellaneous Information 1 ea NOTE XX ; Start 07/20/18 at 23:00 Glucose (Glutose) 15 gm Q15M PRN PO DECREASED GLUCOSE; Start 07/20/18 at 23:00 Glucose (Glutose) 22.5 gm Q15M PRN PO DECREASED GLUCOSE; Start 07/20/18 at 23: 00 Dextrose (D50w Syringe) 25 ml Q15M PRN IV DECREASED GLUCOSE; Start 07/20/18 at 23:00 Dextrose (D50w Syringe) 50 ml Q15M PRN IV DECREASED GLUCOSE; Start 07/20/18 at 23:00 Glucagon (Glucagen) 1 mg Q15M PRN IM DECREASED GLUCOSE; Start 07/20/18 at 23: 00 Glucose (Glutose) 15 gm Q15M PRN BUCCAL DECREASED GLUCOSE; Start 07/20/18 at 23:00 Melatonin (Melatonin) 3 mg HS PRN PO INSOMNIA Last administered on 07/28/18at 00:12; Admin Dose 3 MG; Start 07/20/18 at 23:00 Heparin Sodium (Porcine) 5,000 unit Q12 SC Last administered on 07/27/18 21: 34; Admin Dose 5,000 UNIT; Start 07/21/18 at 21:00 Diclofenac Sodium (Voltaren 1% Gel) 2 gm QID TP Last administered on 21:18; Admin Dose 2 GM; Start 07/22/18 at 13:00 Albumin Human 50 ml @ 100 mls/hr WITH DIALYSIS PRN IV SBP < 90 DURING DIALYSIS ; Start 07/22/18 at 14:00 Sodium Chloride (NS) -To prime the dialy... DIRECTED FOR HD PRN IV HD; Start 07/22/18 at 14:00 Patiromer (Veltassa) 8.4 gm WITH LUNCH PO ; Start 07/23/18 at 13:30 Heparin Sodium (Porcine) (Heparin (1000 Units/ml)) 4,700 unit AFTER DIALYSIS CATHETER Last administered on 07/24/18at 11:00; Admin Dose 4,700 UNIT; Start 07/24/18 at 09:00 Tramadol HCl (Ultram) 100 mg Q6H PRN PO PAIN LEVEL 6-10 Last administered on at 21:15; Admin Dose 100 MG; Start 07/27/18 at 17:00 Furosemide (Lasix) 40 mg DAILY PO ; Start 07/27/18 at 11:30 Heparin Sodium (Porcine) (Heparin (1000 Units/ml)) 4,000 unit AFTER DIALYSIS CATHETER ; Start 07/27/18 at 14:30 Albumin Human 50 ml @ 100 mls/hr WITH DIALYSIS PRN IV SBP < 90 DURING DIALYSIS ; Start 07/27/18 at 14:30 Sodium Chloride (NS) -To prime the dialy... DIRECTED FOR HD PRN IV HD; Start 07/27/18 at 14:30 KOFI SWANN MD Jul 28, 2018 10:08
[2018-07-28] MEDS: ONDANSETRON 4 MG INJ IV PRN (10:36)
[2018-07-28] MEDS: PATIROMER CALCIUM SORBITEX 16.8 GM PKT PO SCH (11:40)
[2018-07-28] MEDS ORDERED: ALTEPLASE (CATHFLO) 2 MG INJ CATHETER ONE (12:00)
[2018-07-28] MEDS: BALSAM PERU/CASTOR OIL 60 GM TUBE TOP SCH (14:17)
[2018-07-29 00:15] VITALS: BP 108/55; PULSE 68; RESP 18
[2018-07-29 00:20] VITALS: BP 110/55; PULSE 72
[2018-07-29] MEDS: traMADol 50 MG TAB PO PRN ×2 (01:01→20:56)
[2018-07-29] MEDS: traZODone 50 MG TAB PO SCH ×2 (01:02→20:51)
[2018-07-29] MEDS: MELATONIN 3 MG TABLET PO PRN ×2 (01:02→20:57)
[2018-07-29] MEDS: GABAPENTIN 300 MG CAP PO SCH ×2 (01:02→20:51)
[2018-07-29] MEDS: FAMOTIDINE 20 MG TAB PO SCH ×3 (01:02→20:51)
[2018-07-29] MEDS: DICLOFENAC SODIUM 1% GEL 100 GM TUBE TP SCH ×5 (01:04→20:52)
[2018-07-29] MEDS: BALSAM PERU/CASTOR OIL 60 GM TUBE TOP SCH ×3 (01:04→20:52)
[2018-07-29 01:41] VITALS: BP 98/56; PULSE 72; RESP 16
[2018-07-29] MEDS: ACCU-CHEK XX SCH (02:00)
[2018-07-29] MEDS ORDERED: HEPARIN 5,000 UNIT/0.5 ML VIAL ONE ×2 (08:13→20:11)
[2018-07-29] MEDS: ALLOPURINOL 100 MG TAB PO SCH (09:17)
[2018-07-29 09:25] VITALS: BP 102/53; PULSE 82; RESP 14
[2018-07-29] MEDS ORDERED: DIPHENHYDRAMINE 50 MG INJ IV PRN (09:30)
[2018-07-29] MEDS: LOPERAMIDE 2 MG CAP PO SCH (10:12)
[2018-07-29] MEDS: FUROSEMIDE 40 MG TAB PO SCH (10:14)
[2018-07-29] MEDS: HEPARIN 5,000 UNIT/1 ML VIAL SC SCH ×2 (10:16→21:01)
[2018-07-29] MEDS: INSULIN ASPART [NOVOLOG] 3 ML PEN SC SCH ×4 (10:16→21:02)
[2018-07-29] MEDS: PATIROMER CALCIUM SORBITEX 16.8 GM PKT PO SCH (11:40)
--- NOTE | 2018-07-29 13:01 | PN ---
Date/Time of Note Date/Time of Note DATE: 07/29/18 TIME: 13:00 Assessment/Plan VTE Prophylaxis VTE Prophylaxis Intervention: SCD's Lines/Catheters IV Catheter Type (from Nrsg): PERMACATH Urinary Cath still in place: No Assessment/Plan Chief Complaint/Hosp Course 1. ckd, hyperkalemia 2. c diff hx 3. Opiates dependency 4. Morbid obesity. 5. Diabetes. 6. Hypertension, 7. Gout, hx 8. Neuropathy. 9. History of congestive heart failure. 10. weakness 11. deconditioning 12. Non compliance, pt refused Valtessa, HD 13. Left shoulder chronic pain. Xray was reviewed from the last visit, it is arthrosis left acromioclavicular joint Assessment/Plan -HD once a week - Will look into SW pt is talking about to arrange for home health and PT -Refused lasix/ oral veltassa or kayexalte - Wound care - US with thrombosed graft - c/w PT twice a day - avoid narcotics as it would limit her ability to walk for PT as it happened last admission since pts goal is Physical therapy - Pt fired Dr Haq out of room as she kept on telling me that she didnt want anybody to bother her at 7 am - c/w gabapentin - low k diet Subjective 24 Hr Interval Summary Free Text/Dictation pt was sleeping Exam/Review of Systems Vital Signs Vitals Vital Signs Date Time Temp Pulse Resp B/P (MAP) Pulse Ox O2 Delivery O2 Flow Rate FiO2 07/29/18 09:25 97.5 82 14 102/53 (69) 98 Room Air Intake and Output 07/28/18 07/28/18 07/29/18 15:00 23:00 07:00 Intake Total 320 ml Output Total 625 ml 1500 ml Balance -625 ml -1180 ml Exam sleeping Constitutional: obese; No alert, No oriented, No well developed, No non-verbal, No frail, No other Psych: no complaints Head: normocephalic Neck: supple Respiratory: normal air movement Results Result Diagram: 07/28/18 1045 07/28/18 1045 Results 24 hrs Laboratory Tests Test 07/28/18 17:25 07/28/18 21:56 07/29/18 09:24 07/29/18 12:44 Bedside Glucose 231 H 183 172 151 Medications Medications Current Medications Acetaminophen (Tylenol Tab) 325 mg Q4H PRN PO MILD PAIN(1-3)OR ELEVATED TEMP; Start 07/20/18 at 23:00 Allopurinol (Zyloprim) 100 mg DAILY PO Last administered on 07/29/18 09:17; Admin Dose 100 MG; Start 07/21/18 at 09:00 Diphenhydramine HCl (Benadryl) 25 mg QHS PRN PO ITCHING; Start 07/20/18 at 23: 00 Gabapentin (Neurontin) 300 mg HS PO Last administered on 07/29/18 01:02; Admin Dose 300 MG; Start 07/21/18 at 21:00 Loperamide HCl (Imodium Cap) 2 mg DAILY PO Last administered on 07/29/18at 10: 12; Admin Dose 2 MG; Start 07/21/18 at 09:00 Trazodone HCl (Desyrel) 50 mg QHS PO Last administered on 07/29/18at 01:02; Admin Dose 50 MG; Start 07/21/18 at 21:00 IV Flush (NS 3 ml) 3 ml PER PROTOCOL IV ; Start 07/20/18 at 23:00 Ondansetron HCl (Zofran Inj) 4 mg Q6H PRN IV NAUSEA AND/OR VOMITING Last administered on 07/28/18at 10:36; Admin Dose 4 MG; Start 07/20/18 at 23:00 Acetaminophen (Tylenol Tab) 650 mg Q6H PRN PO PAIN LEVEL 1-3 OR FEVER; Start 07/20/18 at 23:00 Acetaminophen (Tylenol Supp) 650 mg Q6H PRN [place] PAIN LEVEL 1-3 OR FEVER; Start 07/20/18 at 23:00 Docusate Sodium (Colace) 100 mg Q12H PRN PO CONSTIPATION; Start 07/20/18 at 23 :00 Bisacodyl (Dulcolax) 5 mg DAILY PRN PO CONSTIPATION; Start 07/20/18 at 23:00 Famotidine (Pepcid) 20 mg Q12 PO Last administered on 07/29/18 09:16; Admin Dose 20 MG; Start 07/21/18 at 09:00 Diagnostic Test (Pha) (Accu-Chek) 1 ea 02 XX Last administered on 07/27/18at 02 :27; Admin Dose 1 EA; Start 07/21/18 at 02:00 Insulin Aspart (Novolog Insulin Pen) NOVOLOG *MILD* ALGORITHM WITH MEALS BEDTIME SC Last administered on 07/29/18at 10:16; Admin Dose 1 UNIT; Start at 07:50 Ergocalciferol (Drisdol) 50,000 unit Lacy@0900 PO Last administered on at 10:34; Admin Dose 50,000 UNIT; Start 07/24/18 at 09:00 Miscellaneous Information 1 ea NOTE XX ; Start 07/20/18 at 23:00 Glucose (Glutose) 15 gm Q15M PRN PO DECREASED GLUCOSE; Start 07/20/18 at 23:00 Glucose (Glutose) 22.5 gm Q15M PRN PO DECREASED GLUCOSE; Start 07/20/18 at 23: 00 Dextrose (D50w Syringe) 25 ml Q15M PRN IV DECREASED GLUCOSE; Start 07/20/18 at 23:00 Dextrose (D50w Syringe) 50 ml Q15M PRN IV DECREASED GLUCOSE; Start 07/20/18 at 23:00 Glucagon (Glucagen) 1 mg Q15M PRN IM DECREASED GLUCOSE; Start 07/20/18 at 23: 00 Glucose (Glutose) 15 gm Q15M PRN BUCCAL DECREASED GLUCOSE; Start 07/20/18 at 23:00 Melatonin (Melatonin) 3 mg HS PRN PO INSOMNIA Last administered on 07/29/18at 01:02; Admin Dose 3 MG; Start 07/20/18 at 23:00 Heparin Sodium (Porcine) 5,000 unit Q12 SC Last administered on 07/29/18at 10: 16; Admin Dose 5,000 UNIT; Start 07/21/18 at 21:00 Diclofenac Sodium (Voltaren 1% Gel) 2 gm QID TP Last administered on at 09:17; Admin Dose 2 GM; Start 07/22/18 at 13:00 Patiromer (Veltassa) 8.4 gm WITH LUNCH PO ; Start 07/23/18 at 13:30 Tramadol HCl (Ultram) 100 mg Q6H PRN PO PAIN LEVEL 6-10 Last administered on at 01:01; Admin Dose 100 MG; Start 07/27/18 at 17:00 Furosemide (Lasix) 40 mg DAILY PO Last administered on 07/29/18at 10:14; Admin Dose 40 MG; Start 07/27/18 at 11:30 Heparin Sodium (Porcine) (Heparin (1000 Units/ml)) 4,000 unit AFTER DIALYSIS CATHETER Last administered on 07/29/18at 00:46; Admin Dose 4,000 UNIT; Start 07/27/18 at 14:30 Albumin Human 50 ml @ 100 mls/hr WITH DIALYSIS PRN IV SBP < 90 DURING DIALYSIS ; Start 07/27/18 at 14:30 Sodium Chloride (NS) -To prime the dialy... DIRECTED FOR HD PRN IV HD; Start 07/27/18 at 14:30 Diphenhydramine HCl (Benadryl) 25 mg ONCE PRN IV NAUSEA Last administered on at 10:12; Admin Dose 25 MG; Start 07/29/18 at 09:30; Stop 07/29/18 at 23 :59 WILLY MEDEIROS Jul 29, 2018 13:01
--- NOTE | 2018-07-29 13:05 | CONS ---
Date/Time of Note Date/Time of Note DATE: 07/29/18 TIME: 13:03 Consultation Date/Type/Reason Admit Date/Time Hx of Present Illness Remarkably good mood today after speaking to Dr. Lockhart. She is smiling she is allowing me to come back to visit her in the future she received dialysis last night. Nauseous but no vomiting, without chest pain shortness of breath cough hemoptysis. She is not ambulating. Past Medical History Medical History: diabetes, high cholesterol, hypertension, renal disease Social History Alcohol Use: none Smoking Status: Never smoker Exam/Review of Systems Vital Signs Vitals Vital Signs Date Time Temp Pulse Resp B/P (MAP) Pulse Ox O2 Delivery O2 Flow Rate FiO2 07/29/18 09:25 97.5 82 14 102/53 (69) 98 Room Air Intake and Output 07/28/18 07/28/18 07/29/18 15:00 23:00 07:00 Intake Total 320 ml Output Total 625 ml 1500 ml Balance -625 ml -1180 ml Exam Constitutional: alert, oriented, well developed Psych: anxiety Neck: supple, non-tender; No jvd, No bruits, No masses, No thyromegaly, No nuchal rigidity, No other Neurological: No CORPORATE RISK ANALYST II-XII intact, No nl mental status, No nl speech, No nl strength, No confused, No DTR's symmetric, No focal weakness, No lethargic, No numbness, No reflexes, No unresponsive, No other Results Result Diagram: 07/28/18 1045 07/28/18 1045 Results 24 hrs Laboratory Tests Test 07/28/18 17:25 07/28/18 21:56 07/29/18 09:24 07/29/18 12:44 Bedside Glucose 231 H 183 172 151 Medications Medications Current Medications Acetaminophen (Tylenol Tab) 325 mg Q4H PRN PO MILD PAIN(1-3)OR ELEVATED TEMP; Start 07/20/18 at 23:00 Allopurinol (Zyloprim) 100 mg DAILY PO Last administered on 07/29/18at 09:17; Admin Dose 100 MG; Start 07/21/18 at 09:00 Diphenhydramine HCl (Benadryl) 25 mg QHS PRN PO ITCHING; Start 07/20/18 at 23: 00 Gabapentin (Neurontin) 300 mg HS PO Last administered on 07/29/18 01:02; Admin Dose 300 MG; Start 07/21/18 at 21:00 Loperamide HCl (Imodium Cap) 2 mg DAILY PO Last administered on 07/29/18 10: 12; Admin Dose 2 MG; Start 07/21/18 at 09:00 Trazodone HCl (Desyrel) 50 mg QHS PO Last administered on 07/29/18 01:02; Admin Dose 50 MG; Start 07/21/18 at 21:00 IV Flush (NS 3 ml) 3 ml PER PROTOCOL IV ; Start 07/20/18 at 23:00 Ondansetron HCl (Zofran Inj) 4 mg Q6H PRN IV NAUSEA AND/OR VOMITING Last administered on 07/28/18 10:36; Admin Dose 4 MG; Start 07/20/18 at 23:00 Acetaminophen (Tylenol Tab) 650 mg Q6H PRN PO PAIN LEVEL 1-3 OR FEVER; Start 07/20/18 at 23:00 Acetaminophen (Tylenol Supp) 650 mg Q6H PRN [place] PAIN LEVEL 1-3 OR FEVER; Start 07/20/18 at 23:00 Docusate Sodium (Colace) 100 mg Q12H PRN PO CONSTIPATION; Start 07/20/18 at 23 :00 Bisacodyl (Dulcolax) 5 mg DAILY PRN PO CONSTIPATION; Start 07/20/18 at 23:00 Famotidine (Pepcid) 20 mg Q12 PO Last administered on 07/29/18 09:16; Admin Dose 20 MG; Start 07/21/18 at 09:00 Diagnostic Test (Pha) (Accu-Chek) 1 ea 02 XX Last administered on 07/27/18at 02 :27; Admin Dose 1 EA; Start 07/21/18 at 02:00 Insulin Aspart (Novolog Insulin Pen) NOVOLOG *MILD* ALGORITHM WITH MEALS BEDTIME SC Last administered on 07/29/18 10:16; Admin Dose 1 UNIT; Start at 07:50 Ergocalciferol (Drisdol) 50,000 unit Lacy@0900 PO Last administered on at 10:34; Admin Dose 50,000 UNIT; Start 07/24/18 at 09:00 Miscellaneous Information 1 ea NOTE XX ; Start 07/20/18 at 23:00 Glucose (Glutose) 15 gm Q15M PRN PO DECREASED GLUCOSE; Start 07/20/18 at 23:00 Glucose (Glutose) 22.5 gm Q15M PRN PO DECREASED GLUCOSE; Start 07/20/18 at 23: 00 Dextrose (D50w Syringe) 25 ml Q15M PRN IV DECREASED GLUCOSE; Start 07/20/18 at 23:00 Dextrose (D50w Syringe) 50 ml Q15M PRN IV DECREASED GLUCOSE; Start 07/20/18 at 23:00 Glucagon (Glucagen) 1 mg Q15M PRN IM DECREASED GLUCOSE; Start 07/20/18 at 23: 00 Glucose (Glutose) 15 gm Q15M PRN BUCCAL DECREASED GLUCOSE; Start 07/20/18 at 23:00 Melatonin (Melatonin) 3 mg HS PRN PO INSOMNIA Last administered on 07/29/18at 01:02; Admin Dose 3 MG; Start 07/20/18 at 23:00 Heparin Sodium (Porcine) 5,000 unit Q12 SC Last administered on 07/29/18at 10: 16; Admin Dose 5,000 UNIT; Start 07/21/18 at 21:00 Diclofenac Sodium (Voltaren 1% Gel) 2 gm QID TP Last administered on at 09:17; Admin Dose 2 GM; Start 07/22/18 at 13:00 Patiromer (Veltassa) 8.4 gm WITH LUNCH PO ; Start 07/23/18 at 13:30 Tramadol HCl (Ultram) 100 mg Q6H PRN PO PAIN LEVEL 6-10 Last administered on at 01:01; Admin Dose 100 MG; Start 07/27/18 at 17:00 Furosemide (Lasix) 40 mg DAILY PO Last administered on 07/29/18at 10:14; Admin Dose 40 MG; Start 07/27/18 at 11:30 Heparin Sodium (Porcine) (Heparin (1000 Units/ml)) 4,000 unit AFTER DIALYSIS CATHETER Last administered on 07/29/18at 00:46; Admin Dose 4,000 UNIT; Start 07/27/18 at 14:30 Albumin Human 50 ml @ 100 mls/hr WITH DIALYSIS PRN IV SBP < 90 DURING DIALYSIS ; Start 07/27/18 at 14:30 Sodium Chloride (NS) -To prime the dialy... DIRECTED FOR HD PRN IV HD; Start 07/27/18 at 14:30 Diphenhydramine HCl (Benadryl) 25 mg ONCE PRN IV NAUSEA Last administered on at 10:12; Admin Dose 25 MG; Start 07/29/18 at 09:30; Stop 07/29/18 at 23 :59 VISH URIBE Jul 29, 2018 13:05
[2018-07-29 14:00] VITALS: BP 100/56; PULSE 80; RESP 16
[2018-07-29 19:40] VITALS: BP 104/50; PULSE 75; RESP 18
[2018-07-30] MEDS: ACCU-CHEK XX SCH (02:00)
[2018-07-30] MEDS: INSULIN ASPART [NOVOLOG] 3 ML PEN SC SCH ×4 (07:50→21:22)
[2018-07-30] MEDS ORDERED: HEPARIN 5,000 UNIT/0.5 ML VIAL ONE ×2 (08:08→21:13)
[2018-07-30] MEDS: PATIROMER CALCIUM SORBITEX 16.8 GM PKT PO SCH (11:40)
[2018-07-30] MEDS: FAMOTIDINE 20 MG TAB PO SCH ×2 (12:52→21:20)
[2018-07-30] MEDS: FUROSEMIDE 40 MG TAB PO SCH (12:53)
[2018-07-30] MEDS: LOPERAMIDE 2 MG CAP PO SCH (12:53)
[2018-07-30] MEDS: ALLOPURINOL 100 MG TAB PO SCH (12:53)
[2018-07-30] MEDS: HEPARIN 5,000 UNIT/1 ML VIAL SC SCH ×2 (12:55→21:22)
[2018-07-30] MEDS: BALSAM PERU/CASTOR OIL 60 GM TUBE TOP SCH ×2 (12:57→21:19)
[2018-07-30] MEDS: DICLOFENAC SODIUM 1% GEL 100 GM TUBE TP SCH ×4 (12:57→21:19)
[2018-07-30 13:06] VITALS: BP 113/54; PULSE 84; RESP 17
--- NOTE | 2018-07-30 14:59 | PN ---
Date/Time of Note Date/Time of Note DATE: 07/30/18 TIME: 14:56 Assessment/Plan VTE Prophylaxis VTE Prophylaxis Intervention: SCD's Lines/Catheters IV Catheter Type (from Nrsg): permacath Urinary Cath still in place: No Assessment/Plan Chief Complaint/Hosp Course 1. ckd, hyperkalemia 2. c diff hx 3. Opiates dependency 4. Morbid obesity. 5. Diabetes. 6. Hypertension, 7. Gout, hx 8. Neuropathy. 9. History of congestive heart failure. 10. weakness 11. deconditioning 12. Non compliance, pt refused Valtessa, HD 13. Left shoulder chronic pain. Xray was reviewed from the last visit, it is arthrosis left acromioclavicular joint Assessment/Plan -UA -pt refused Valtessa -C/w HD as needed -Cough syrup Subjective 24 Hr Interval Summary Respiratory: cough Exam/Review of Systems Vital Signs Vitals Vital Signs Date Time Temp Pulse Resp B/P (MAP) Pulse Ox O2 Delivery O2 Flow Rate FiO2 07/30/18 13:06 97.9 84 17 113/54 (73) 96 Room Air Intake and Output 07/29/18 07/29/18 07/30/18 15:00 23:00 07:00 Intake Total 600 ml Balance 600 ml Exam obese Constitutional: alert, oriented Psych: no complaints Head: normocephalic Eyes: nl conjunctiva ENMT: nl external ears & nose Respiratory: congested cough Cardiovascular: regular rate and rhythm Gastrointestinal: soft Genitourinary - Female: other (dysuria) Results Result Diagram: 07/28/18 1045 07/30/18 1200 Results 24 hrs Laboratory Tests Test 07/29/18 17:43 07/29/18 21:00 07/30/18 01:53 07/30/18 12:00 Bedside Glucose 246 H 268 H 174 Sodium Level 137 Potassium Level 5.7 H Chloride Level 103 Carbon Dioxide Level 27 Anion Gap 7 Blood Urea Nitrogen 36 H Creatinine 3.76 H Est Glomerular Filtrat Rate mL/min 12 L Glucose Level 197 Calcium Level 8.5 Test 07/30/18 12:47 Bedside Glucose 189 Medications Medications Current Medications Acetaminophen (Tylenol Tab) 325 mg Q4H PRN PO MILD PAIN(1-3)OR ELEVATED TEMP; Start 07/20/18 at 23:00 Allopurinol (Zyloprim) 100 mg DAILY PO Last administered on 07/30/18 12:53; Admin Dose 100 MG; Start 07/21/18 at 09:00 Gabapentin (Neurontin) 300 mg HS PO Last administered on 07/29/18 20:51; Admin Dose 300 MG; Start 07/21/18 at 21:00 Loperamide HCl (Imodium Cap) 2 mg DAILY PO Last administered on 07/29/18 10: 12; Admin Dose 2 MG; Start 07/21/18 at 09:00 Trazodone HCl (Desyrel) 50 mg QHS PO Last administered on 07/29/18 20:51; Admin Dose 50 MG; Start 07/21/18 at 21:00 IV Flush (NS 3 ml) 3 ml PER PROTOCOL IV ; Start 07/20/18 at 23:00 Ondansetron HCl (Zofran Inj) 4 mg Q6H PRN IV NAUSEA AND/OR VOMITING Last administered on 07/28/18 10:36; Admin Dose 4 MG; Start 07/20/18 at 23:00 Acetaminophen (Tylenol Tab) 650 mg Q6H PRN PO PAIN LEVEL 1-3 OR FEVER; Start 07/20/18 at 23:00 Acetaminophen (Tylenol Supp) 650 mg Q6H PRN [place] PAIN LEVEL 1-3 OR FEVER; Start 07/20/18 at 23:00 Docusate Sodium (Colace) 100 mg Q12H PRN PO CONSTIPATION; Start 07/20/18 at 23 :00 Bisacodyl (Dulcolax) 5 mg DAILY PRN PO CONSTIPATION; Start 07/20/18 at 23:00 Famotidine (Pepcid) 20 mg Q12 PO Last administered on 07/30/18 12:52; Admin Dose 20 MG; Start 07/21/18 at 09:00 Diagnostic Test (Pha) (Accu-Chek) 1 ea 02 XX Last administered on 07/30/18at 02 :00; Admin Dose 1 EA; Start 07/21/18 at 02:00 Insulin Aspart (Novolog Insulin Pen) NOVOLOG *MILD* ALGORITHM WITH MEALS BEDTIME SC Last administered on 07/30/18 12:56; Admin Dose 2 UNIT; Start at 07:50 Ergocalciferol (Drisdol) 50,000 unit Lacy@0900 PO Last administered on at 10:34; Admin Dose 50,000 UNIT; Start 07/24/18 at 09:00 Miscellaneous Information 1 ea NOTE XX ; Start 07/20/18 at 23:00 Glucose (Glutose) 15 gm Q15M PRN PO DECREASED GLUCOSE; Start 07/20/18 at 23:00 Glucose (Glutose) 22.5 gm Q15M PRN PO DECREASED GLUCOSE; Start 07/20/18 at 23: 00 Dextrose (D50w Syringe) 25 ml Q15M PRN IV DECREASED GLUCOSE; Start 07/20/18 at 23:00 Dextrose (D50w Syringe) 50 ml Q15M PRN IV DECREASED GLUCOSE; Start 07/20/18 at 23:00 Glucagon (Glucagen) 1 mg Q15M PRN IM DECREASED GLUCOSE; Start 07/20/18 at 23: 00 Glucose (Glutose) 15 gm Q15M PRN BUCCAL DECREASED GLUCOSE; Start 07/20/18 at 23:00 Melatonin (Melatonin) 3 mg HS PRN PO INSOMNIA Last administered on 07/29/18at 20:57; Admin Dose 3 MG; Start 07/20/18 at 23:00 Heparin Sodium (Porcine) 5,000 unit Q12 SC Last administered on 07/30/18at 12: 55; Admin Dose 5,000 UNIT; Start 07/21/18 at 21:00 Diclofenac Sodium (Voltaren 1% Gel) 2 gm QID TP Last administered on at 13:06; Admin Dose 2 GM; Start 07/22/18 at 13:00 Tramadol HCl (Ultram) 100 mg Q6H PRN PO PAIN LEVEL 6-10 Last administered on at 20:56; Admin Dose 100 MG; Start 07/27/18 at 17:00 Furosemide (Lasix) 40 mg DAILY PO Last administered on 07/30/18at 12:53; Admin Dose 40 MG; Start 07/27/18 at 11:30 Heparin Sodium (Porcine) (Heparin (1000 Units/ml)) 4,000 unit AFTER DIALYSIS CATHETER Last administered on 07/29/18at 00:46; Admin Dose 4,000 UNIT; Start 07/27/18 at 14:30 Albumin Human 50 ml @ 100 mls/hr WITH DIALYSIS PRN IV SBP < 90 DURING DIALYSIS ; Start 07/27/18 at 14:30 Sodium Chloride (NS) -To prime the dialy... DIRECTED FOR HD PRN IV HD; Start 07/27/18 at 14:30 Patiromer (Veltassa) 16.8 gm DAILY PO ; Start 07/31/18 at 09:00 WILLY MEDEIROS Jul 30, 2018 14:59
[2018-07-30] MEDS ORDERED: GUAIFENESIN/DM 5ML CUP PO PRN (15:00)
[2018-07-30 19:35] VITALS: BP 105/67; PULSE 81; RESP 18
[2018-07-30] MEDS: traZODone 50 MG TAB PO SCH (21:19)
[2018-07-30] MEDS: MELATONIN 3 MG TABLET PO PRN (21:19)
[2018-07-30] MEDS: GABAPENTIN 300 MG CAP PO SCH (21:20)
[2018-07-31] MEDS: ACCU-CHEK XX SCH ×2 (02:00→02:24)
[2018-07-31 02:25] VITALS: BP 125/58; PULSE 94; RESP 16
[2018-07-31] MEDS ORDERED: HEPARIN 5,000 UNIT/0.5 ML VIAL ONE ×2 (08:25→21:25)
[2018-07-31 08:40] VITALS: BP 114/66; PULSE 92; RESP 20
[2018-07-31] MEDS: ALLOPURINOL 100 MG TAB PO SCH (08:43)
[2018-07-31] MEDS: LOPERAMIDE 2 MG CAP PO SCH (08:43)
[2018-07-31] MEDS: FAMOTIDINE 20 MG TAB PO SCH ×2 (08:44→22:25)
[2018-07-31] MEDS: FUROSEMIDE 40 MG TAB PO SCH (08:44)
[2018-07-31] MEDS: INSULIN ASPART [NOVOLOG] 3 ML PEN SC SCH ×4 (08:45→21:00)
[2018-07-31] MEDS: HEPARIN 5,000 UNIT/1 ML VIAL SC SCH ×3 (08:46→22:29)
[2018-07-31] MEDS: BALSAM PERU/CASTOR OIL 60 GM TUBE TOP SCH ×2 (08:46→22:39)
[2018-07-31] MEDS: DICLOFENAC SODIUM 1% GEL 100 GM TUBE TP SCH ×4 (08:46→22:39)
[2018-07-31] MEDS: ERGOCALCIFEROL 50,000 UNIT CAP PO SCH (09:00)
[2018-07-31] MEDS: PATIROMER CALCIUM SORBITEX 16.8 GM PKT PO SCH (09:00)
[2018-07-31 13:56] VITALS: BP 107/60; PULSE 88; RESP 18
[2018-07-31] MEDS ORDERED: ALBUMIN HUMAN 25% 50 ML IV PRN (18:00)
[2018-07-31] MEDS ORDERED: SODIUM CHLORIDE 0.9% 1L BAG IV PRN (18:00)
--- NOTE | 2018-07-31 18:04 | PN ---
Date/Time of Note Date/Time of Note DATE: 07/31/18 TIME: 18:03 Assessment/Plan VTE Prophylaxis VTE Prophylaxis Intervention: SCD's Lines/Catheters IV Catheter Type (from Nrs): permacath Urinary Cath still in place: No Assessment/Plan Chief Complaint/Hosp Course 58 y/o with 1. . ckd iii-iv now with the complications of hyperkalemia, patient has been refusing Kayexalate Veltassa has also been refusing dialysis, patient was explained the risks and consequences and patient completely understands the risks and consequences 2. c diff hx 3. Chronic kidney disease, 4. Morbid obesity. 5. Diabetes. 6. Hypertension, 7. Gout.hx 8. Neuropathy. 9. History of congestive heart failure. 10 weakness 11 deconditioning Plan -HD tmw - taking lasix - Wound care - US with thrombosed graft - c/w PT twice a day - avoid narcotics as it would limit her ability to walk for PT as it happened last admission since pts goal is Physical therapy - c/w gabapentin - low k diet Subjective 24 Hr Interval Summary Free Text/Dictation Patient agreeable for hemodialysis tomorrow Exam/Review of Systems Vital Signs Vitals Vital Signs Date Time Temp Pulse Resp B/P (MAP) Pulse Ox O2 Delivery O2 Flow Rate FiO2 07/31/18 13:56 98.0 88 18 107/60 (76) 93 07/31/18 08:40 Nasal Cannula Intake and Output 07/30/18 07/30/18 07/31/18 15:00 23:00 07:00 Intake Total 800 ml Balance 800 ml Exam obese Constitutional: alert, oriented Psych: no complaints Head: normocephalic Eyes: nl conjunctiva ENMT: nl external ears & nose Respiratory: congested cough Cardiovascular: regular rate and rhythm Gastrointestinal: soft Genitourinary - Female: other (dysuria) Results Result Diagram: 07/28/18 1045 07/31/18 1138 Results 24 hrs Laboratory Tests Test 07/30/18 21:19 07/31/18 02:22 07/31/18 08:39 07/31/18 11:38 Bedside Glucose 230 H 191 227 H Sodium Level 139 Potassium Level 5.5 H Chloride Level 103 Carbon Dioxide Level 27 Anion Gap 9 Blood Urea Nitrogen 42 H Creatinine 4.22 H Est Glomerular Filtrat Rate mL/min 11 L Glucose Level 166 Calcium Level 8.7 Test 07/31/18 13:05 Bedside Glucose 135 Medications Medications Current Medications Acetaminophen (Tylenol Tab) 325 mg Q4H PRN PO MILD PAIN(1-3)OR ELEVATED TEMP; Start 07/20/18 at 23:00 Allopurinol (Zyloprim) 100 mg DAILY PO Last administered on 07/31/18 08:43; Admin Dose 100 MG; Start 07/21/18 at 09:00 Gabapentin (Neurontin) 300 mg HS PO Last administered on 07/30/18at 21:20; Admin Dose 300 MG; Start 07/21/18 at 21:00 Loperamide HCl (Imodium Cap) 2 mg DAILY PO Last administered on 07/31/18 08: 43; Admin Dose 2 MG; Start 07/21/18 at 09:00 Trazodone HCl (Desyrel) 50 mg QHS PO Last administered on 07/30/18 21:19; Admin Dose 50 MG; Start 07/21/18 at 21:00 IV Flush (NS 3 ml) 3 ml PER PROTOCOL IV ; Start 07/20/18 at 23:00 Ondansetron HCl (Zofran Inj) 4 mg Q6H PRN IV NAUSEA AND/OR VOMITING Last administered on 07/28/18at 10:36; Admin Dose 4 MG; Start 07/20/18 at 23:00 Acetaminophen (Tylenol Tab) 650 mg Q6H PRN PO PAIN LEVEL 1-3 OR FEVER; Start 07/20/18 at 23:00 Acetaminophen (Tylenol Supp) 650 mg Q6H PRN [place] PAIN LEVEL 1-3 OR FEVER; Start 07/20/18 at 23:00 Docusate Sodium (Colace) 100 mg Q12H PRN PO CONSTIPATION; Start 07/20/18 at 23 :00 Bisacodyl (Dulcolax) 5 mg DAILY PRN PO CONSTIPATION; Start 07/20/18 at 23:00 Famotidine (Pepcid) 20 mg Q12 PO Last administered on 07/31/18at 08:44; Admin Dose 20 MG; Start 07/21/18 at 09:00 Diagnostic Test (Pha) (Accu-Chek) 1 ea 02 XX Last administered on 07/31/18at 02 :24; Admin Dose 1 EA; Start 07/21/18 at 02:00 Insulin Aspart (Novolog Insulin Pen) NOVOLOG *MILD* ALGORITHM WITH MEALS BEDTIME SC Last administered on 07/31/18at 08:45; Admin Dose 3 UNIT; Start at 07:50 Ergocalciferol (Drisdol) 50,000 unit Lacy@0900 PO Last administered on at 10:34; Admin Dose 50,000 UNIT; Start 07/24/18 at 09:00 Miscellaneous Information 1 ea NOTE XX ; Start 07/20/18 at 23:00 Glucose (Glutose) 15 gm Q15M PRN PO DECREASED GLUCOSE; Start 07/20/18 at 23:00 Glucose (Glutose) 22.5 gm Q15M PRN PO DECREASED GLUCOSE; Start 07/20/18 at 23: 00 Dextrose (D50w Syringe) 25 ml Q15M PRN IV DECREASED GLUCOSE; Start 07/20/18 at 23:00 Dextrose (D50w Syringe) 50 ml Q15M PRN IV DECREASED GLUCOSE; Start 07/20/18 at 23:00 Glucagon (Glucagen) 1 mg Q15M PRN IM DECREASED GLUCOSE; Start 07/20/18 at 23: 00 Glucose (Glutose) 15 gm Q15M PRN BUCCAL DECREASED GLUCOSE; Start 07/20/18 at 23:00 Melatonin (Melatonin) 3 mg HS PRN PO INSOMNIA Last administered on 07/30/18at 21:19; Admin Dose 3 MG; Start 07/20/18 at 23:00 Heparin Sodium (Porcine) 5,000 unit Q12 SC Last administered on 07/30/18at 21: 22; Admin Dose 5,000 UNIT; Start 07/21/18 at 21:00 Diclofenac Sodium (Voltaren 1% Gel) 2 gm QID TP Last administered on at 08:46; Admin Dose 2 GM; Start 07/22/18 at 13:00 Tramadol HCl (Ultram) 100 mg Q6H PRN PO PAIN LEVEL 6-10 Last administered on at 20:56; Admin Dose 100 MG; Start 07/27/18 at 17:00 Furosemide (Lasix) 40 mg DAILY PO Last administered on 07/31/18at 08:44; Admin Dose 40 MG; Start 07/27/18 at 11:30 Heparin Sodium (Porcine) (Heparin (1000 Units/ml)) 4,000 unit AFTER DIALYSIS CATHETER Last administered on 07/29/18at 00:46; Admin Dose 4,000 UNIT; Start 07/27/18 at 14:30 Albumin Human 50 ml @ 100 mls/hr WITH DIALYSIS PRN IV SBP < 90 DURING DIALYSIS ; Start 07/27/18 at 14:30 Sodium Chloride (NS) -To prime the dialy... DIRECTED FOR HD PRN IV HD; Start 07/27/18 at 14:30 Patiromer (Veltassa) 16.8 gm DAILY PO ; Start 07/31/18 at 09:00 Guaifenesin/ Dextromethorphan (Robitussin Dm Liquid Cup) 10 ml Q4H PRN PO COUGH ; Start 07/30/18 at 15:00 KOFI SWANN MD Jul 31, 2018 18:04
[2018-07-31] MEDS: traMADol 50 MG TAB PO PRN (18:11)
[2018-07-31 19:52] VITALS: BP 129/70; PULSE 80; RESP 16
[2018-07-31] MEDS: GABAPENTIN 300 MG CAP PO SCH (22:24)
[2018-07-31] MEDS: traZODone 50 MG TAB PO SCH (22:25)
[2018-08-01] VITALS (18 sets, daily range): BP systolic 81–146; BP diastolic 44–89; PULSE 78–103; RESP 18–20
[2018-08-01] MEDS: traMADol 50 MG TAB PO PRN (01:53)
[2018-08-01] MEDS ORDERED: HEPARIN 5,000 UNIT/0.5 ML VIAL ONE ×2 (08:21→23:24)
[2018-08-01] MEDS: LOPERAMIDE 2 MG CAP PO SCH (08:59)
[2018-08-01] MEDS: ALLOPURINOL 100 MG TAB PO SCH (09:00)
[2018-08-01] MEDS: FAMOTIDINE 20 MG TAB PO SCH ×2 (09:00→23:31)
[2018-08-01] MEDS: BALSAM PERU/CASTOR OIL 60 GM TUBE TOP SCH ×2 (09:00→21:00)
[2018-08-01] MEDS: PATIROMER CALCIUM SORBITEX 16.8 GM PKT PO SCH (09:00)
[2018-08-01] MEDS: FUROSEMIDE 40 MG TAB PO SCH (09:00)
[2018-08-01] MEDS: DICLOFENAC SODIUM 1% GEL 100 GM TUBE TP SCH ×4 (09:00→21:00)
[2018-08-01] MEDS: INSULIN ASPART [NOVOLOG] 3 ML PEN SC SCH ×4 (09:05→21:00)
[2018-08-01] MEDS: HEPARIN 5,000 UNIT/1 ML VIAL SC SCH ×2 (09:06→23:34)
[2018-08-01] MEDS ORDERED: HYDROmorphONE 0.5 MG/0.5 ML SYG IV STA (16:44)
--- NOTE | 2018-08-01 16:51 | PN ---
Date/Time of Note Date/Time of Note DATE: 08/01/18 TIME: 16:49 Assessment/Plan VTE Prophylaxis VTE Prophylaxis Intervention: SCD's Lines/Catheters IV Catheter Type (from Nrsg): PERMA CATH Urinary Cath still in place: No Assessment/Plan Chief Complaint/Hosp Course 58 y/o with 1. . ckd iii-iv now with the complications of hyperkalemia, patient has been refusing Kayexalate Veltassa has also been refusing dialysis, patient was explained the risks and consequences and patient completely understands the risks and consequences 2. c diff hx 3. Chronic kidney disease, 4. Morbid obesity. 5. Diabetes. 6. Hypertension, 7. Gout.hx 8. Neuropathy. 9. History of congestive heart failure. 10 weakness 11 deconditioning 13 Left shoulde pain, TTP ? Frozen shoulder Plan -HD today - taking lasix - Wound care - US with thrombosed graft - Ortho consult - c/w PT twice a day - avoid narcotics as it would limit her ability to walk for PT as it happened last admission since pts goal is Physical therapy - c/w gabapentin - low k diet Will have to arrnage for HD center before she goes back as she wants to return back to [place], not in [facility] Here Subjective 24 Hr Interval Summary Free Text/Dictation PAIN IN LEFT SHOULDER Exam/Review of Systems Vital Signs Vitals Vital Signs Date Time Temp Pulse Resp B/P (MAP) Pulse Ox O2 Delivery O2 Flow Rate FiO2 08/01/18 15:11 97.8 88 20 130/70 (90) 90 Room Air Exam Neck: supple Respiratory: clear to auscultation Cardiovascular: regular rate and rhythm Gastrointestinal: soft Extremities: edema (+) Neurological: KNOCKER OFF II-XII intact, nl mental status, nl speech, nl strength rt permacath Results Result Diagram: 07/28/18 1045 07/31/18 1138 Results 24 hrs Laboratory Tests Test 07/31/18 18:05 07/31/18 22:30 08/01/18 08:57 08/01/18 12:59 Bedside Glucose 151 149 176 283 H Medications Medications Current Medications Acetaminophen (Tylenol Tab) 325 mg Q4H PRN PO MILD PAIN(1-3)OR ELEVATED TEMP; Start 07/20/18 at 23:00 Allopurinol (Zyloprim) 100 mg DAILY PO Last administered on 08/01/18 09:00; Admin Dose 100 MG; Start 07/21/18 at 09:00 Gabapentin (Neurontin) 300 mg HS PO Last administered on 07/31/18 22:24; Admin Dose 300 MG; Start 07/21/18 at 21:00 Loperamide HCl (Imodium Cap) 2 mg DAILY PO Last administered on 08/01/18 08: 59; Admin Dose 2 MG; Start 07/21/18 at 09:00 Trazodone HCl (Desyrel) 50 mg QHS PO Last administered on 07/31/18 22:25; Admin Dose 50 MG; Start 07/21/18 at 21:00 IV Flush (NS 3 ml) 3 ml PER PROTOCOL IV ; Start 07/20/18 at 23:00 Ondansetron HCl (Zofran Inj) 4 mg Q6H PRN IV NAUSEA AND/OR VOMITING Last administered on 07/28/18 10:36; Admin Dose 4 MG; Start 07/20/18 at 23:00 Acetaminophen (Tylenol Tab) 650 mg Q6H PRN PO PAIN LEVEL 1-3 OR FEVER; Start 07/20/18 at 23:00 Acetaminophen (Tylenol Supp) 650 mg Q6H PRN [place] PAIN LEVEL 1-3 OR FEVER; Start 07/20/18 at 23:00 Docusate Sodium (Colace) 100 mg Q12H PRN PO CONSTIPATION; Start 07/20/18 at 23 :00 Bisacodyl (Dulcolax) 5 mg DAILY PRN PO CONSTIPATION; Start 07/20/18 at 23:00 Famotidine (Pepcid) 20 mg Q12 PO Last administered on 08/01/18 09:00; Admin Dose 20 MG; Start 07/21/18 at 09:00 Diagnostic Test (Pha) (Accu-Chek) 1 ea 02 XX Last administered on 07/31/18 02 :24; Admin Dose 1 EA; Start 07/21/18 at 02:00 Insulin Aspart (Novolog Insulin Pen) NOVOLOG *MILD* ALGORITHM WITH MEALS BEDTIME SC Last administered on 08/01/18 13:13; Admin Dose 4 UNIT; Start at 07:50 Ergocalciferol (Drisdol) 50,000 unit Lacy@0900 PO Last administered on 10/21/ 18at 10:34; Admin Dose 50,000 UNIT; Start 07/24/18 at 09:00 Miscellaneous Information 1 ea NOTE XX ; Start 07/20/18 at 23:00 Glucose (Glutose) 15 gm Q15M PRN PO DECREASED GLUCOSE; Start 07/20/18 at 23:00 Glucose (Glutose) 22.5 gm Q15M PRN PO DECREASED GLUCOSE; Start 07/20/18 at 23: 00 Dextrose (D50w Syringe) 25 ml Q15M PRN IV DECREASED GLUCOSE; Start 07/20/18 at 23:00 Dextrose (D50w Syringe) 50 ml Q15M PRN IV DECREASED GLUCOSE; Start 07/20/18 at 23:00 Glucagon (Glucagen) 1 mg Q15M PRN IM DECREASED GLUCOSE; Start 07/20/18 at 23: 00 Glucose (Glutose) 15 gm Q15M PRN BUCCAL DECREASED GLUCOSE; Start 07/20/18 at 23:00 Melatonin (Melatonin) 3 mg HS PRN PO INSOMNIA Last administered on 07/30/18at 21:19; Admin Dose 3 MG; Start 07/20/18 at 23:00 Heparin Sodium (Porcine) 5,000 unit Q12 SC Last administered on 08/01/18at 09: 06; Admin Dose 5,000 UNIT; Start 07/21/18 at 21:00 Diclofenac Sodium (Voltaren 1% Gel) 2 gm QID TP Last administered on at 22:39; Admin Dose 2 GM; Start 07/22/18 at 13:00 Tramadol HCl (Ultram) 100 mg Q6H PRN PO PAIN LEVEL 6-10 Last administered on at 01:53; Admin Dose 100 MG; Start 07/27/18 at 17:00 Furosemide (Lasix) 40 mg DAILY PO Last administered on 07/31/18at 08:44; Admin Dose 40 MG; Start 07/27/18 at 11:30 Heparin Sodium (Porcine) (Heparin (1000 Units/ml)) 4,000 unit AFTER DIALYSIS CATHETER Last administered on 07/29/18at 00:46; Admin Dose 4,000 UNIT; Start 07/27/18 at 14:30 Albumin Human 50 ml @ 100 mls/hr WITH DIALYSIS PRN IV SBP < 90 DURING DIALYSIS ; Start 07/27/18 at 14:30 Sodium Chloride (NS) -To prime the dialy... DIRECTED FOR HD PRN IV HD; Start 07/27/18 at 14:30 Patiromer (Veltassa) 16.8 gm DAILY PO ; Start 07/31/18 at 09:00 Guaifenesin/ Dextromethorphan (Robitussin Dm Liquid Cup) 10 ml Q4H PRN PO COUGH ; Start 07/30/18 at 15:00 Heparin Sodium (Porcine) (Heparin (1000 Units/ml)) 4,000 unit AFTER DIALYSIS CATHETER ; Start 07/31/18 at 18:00 Albumin Human 50 ml @ 100 mls/hr WITH DIALYSIS PRN IV SBP < 90 DURING DIALYSIS ; Start 07/31/18 at 18:00 Sodium Chloride (NS) -To prime the dialy... DIRECTED FOR HD PRN IV HD; Start 07/31/18 at 18:00 Hydromorphone HCl (Dilaudid) 0.5 mg ONCE STAT IV ; Start 08/01/18 at 16:44; Stop 08/01/18 at 16:45; Status KOFI OBRIEN MD Aug 01, 2018 16:51
[2018-08-01] MEDS: ONDANSETRON 4 MG INJ IV PRN (18:57)
[2018-08-01] MEDS: HEPARIN 1000 UNITS/ML 10 ML INJ CATHETER SCH (23:20)
[2018-08-01] MEDS: GABAPENTIN 300 MG CAP PO SCH (23:31)
[2018-08-01] MEDS: traZODone 50 MG TAB PO SCH (23:31)
[2018-08-02 00:51] VITALS: BP 130/65; RESP 20
--- NOTE | 2018-08-02 00:56 | EN ---
Date/Time of Note Date/Time of Note DATE: 08/02/18 TIME: 00:50 Event Note Medicine Medicine Event Note Rapid response called around 00:30 the morning of 08/02. Briefly, the patient is a morbidly obese woman with CKD who started dialysis this admission. Rapid response called because the nurse saw her slowly sliding out of bed to the ground. On my arrival the patient had her eyes open and was grunting but not answering questions. A saturation was taken in the mid 80s. We used the lary lift and some manpower to get her back into bed, after which she was shouting and moving all extremities. Pulse was high 90s with strong pulses but cool extremities. Oxygen sat in mid 90s, lungs sounded clear. She reports weakness after dialysis which is why she slid out of bed. She denies losing consciousness. Ordered basic labs and EKG which I will follow up. She is medically stable to remain on med-surg. I spent more than 28 minutes on the care of this patient. RUFINO DELCID MD Aug 02, 2018 00:56
[2018-08-02] MEDS: ACCU-CHEK XX SCH (01:32)
[2018-08-02 02:20] VITALS: BP 114/63; PULSE 87; RESP 18
[2018-08-02] MEDS: INSULIN ASPART [NOVOLOG] 3 ML PEN SC SCH ×4 (07:50→20:16)
[2018-08-02] MEDS ORDERED: HEPARIN 5,000 UNIT/0.5 ML VIAL ONE ×2 (08:06→20:01)
--- NOTE | 2018-08-02 11:43 | PN ---
Date/Time of Note Date/Time of Note DATE: 08/02/18 TIME: 11:41 Assessment/Plan VTE Prophylaxis VTE Prophylaxis Intervention: SCD's Lines/Catheters IV Catheter Type (from Nrsg): permacath Urinary Cath still in place: No Assessment/Plan Chief Complaint/Hosp Course 58 y/o with 1. . ckd iii-iv now with the complications of hyperkalemia, patient has been refusing Kayexalate Veltaastrida has also been refusing dialysis, patient was e xplained the risks and consequences and patient completely understands the risks and consequences 2. c diff hx 3. Chronic kidney disease, 4. Morbid obesity. 5. Diabetes. 6. Hypertension, 7. Gout.hx 8. Neuropathy. 9. History of congestive heart failure. 10 weakness 11 deconditioning 13 Left shoulde pain, TTP ? Frozen shoulder 14 s/p Fall ? AMS confusion Plan -She has leukocytosis will get a UA chest x-ray -cw with Lasix -DC all narcotics gabapentin/sleeping pill - Wound care - US with thrombosed graft - Ortho consult - c/w PT twice a day - avoid narcotics as it would limit her ability to walk for PT as it happened last admission since pts goal is Physical therapy - low k diet Will have to arrnage for HD center/snif Subjective 24 Hr Interval Summary Free Text/Dictation Patient says that she feels weak after dialysis Rapid response was called yesterdayaw her slowly sliding out of bed to the ground. Onarrival the patient had her eyes open and was grunting but not answering questions. A saturation was taken in the mid 80s. We used the lary lift and some manpower to get up and the O2 saturation improved, as per hospitalist note Currently patient is little lethargic Exam/Review of Systems Vital Signs Vitals Vital Signs Date Temp Pulse Resp B/P (MAP) Pulse Ox O2 O2 Flow FiO2 Time Delivery Rate 08/02/18 97.7 87 18 114/63 96 02:20 (80) 08/02/18 Nasal 00:51 Cannula Intake and Output 08/01/18 08/01/18 08/02/18 1515:00 23:00 07:00 IntakeIntake Total 200 ml 560 ml 240 ml OutputOutput Total 0 ml 450 ml BalanceBalance 200 ml 560 ml -210 ml Exam Neck: supple Respiratory: clear to auscultation Cardiovascular: regular rate and rhythm Gastrointestinal: soft Extremities: edema (+) Neurological: DEVELOPMENT SPEC II-XII intact, nl mental status, nl speech, nl strength rt permacath Results Result Diagram: 08/02/1810608/02/18 0106 Results 24 hrs Laboratory Tests Test 08/01/18 12:59 08/01/18 23:36 08/02/18 01:06 08/02/18 01:07 Bedside Glucose 283 H 173 Sodium Level 138 Potassium Level 4.6 Chloride Level 103 Carbon Dioxide 25 Level Anion Gap 10 Blood Urea 25 #H Nitrogen Creatinine 2.77 #H Est Glomerular 17 L Filtrat Rate mL/min Glucose Level 206 Calcium Level 8.2 L Phosphorus Level 3.7 Magnesium Level 1.8 Total Bilirubin 0.1 L Direct Bilirubin 0.00 Indirect 0.1 Bilirubin Aspartate Amino 32 Transf (AST/SGOT ) Alanine < 6 L Aminotransferase (ALT/SGPT) Alkaline 104 Phosphatase Total Protein 6.9 Albumin 2.9 L Globulin 4.00 H Albumin/Globulin 0.72 Ratio White Blood 16.2 #H Count Red Blood Count 4.21 Hemoglobin 11.1 L Hematocrit 38.1 Mean Corpuscular 90.5 Volume Mean Corpuscular 26.4 L Hemoglobin Mean Corpuscular 29.1 L Hemoglobin Elsy nt Red Cell 16.6 H Distribution Width Platelet Count 199 Mean Platelet 9.7 Volume Immature 1.000 H Granulocytes % Neutrophils % 78.1 H Lymphocytes % 14.8 L Monocytes % 3.6 Eosinophils % 2.1 Basophils % 0.4 Nucleated Red 0.1 H Blood Cells % Immature 0.160 H Granulocytes # Neutrophils # 12.7 H Lymphocytes # 2.4 Monocytes # 0.6 Eosinophils # 0.3 Basophils # 0.1 Nucleated Red 0.0 Blood Cells # Medications Medications Current Medications Acetaminophen (Tylenol Tab) 325 mg Q4H PRN PO MILD PAIN(1-3)OR ELEVATED TEMP; Start 07/20/18 at 23:00 Allopurinol (Zyloprim) 100 mg DAILY PO Last administered on 08/01/18at 09:00; Admin Dose 100 MG; Start 07/21/18 at 09:00 Loperamide HCl (Imodium Cap) 2 mg DAILY PO Last administered on 08/01/18at 08:59; Admin Dose 2 MG; Start 07/21/18 at 09:00 IV Flush (NS 3 ml) 3 ml PER PROTOCOL IV ; Start 07/20/18 at 23:00 Ondansetron HCl (Zofran Inj) 4 mg Q6H PRN IV NAUSEA AND/OR VOMITING Last administered on 08/01/18at 18:57; Admin Dose 4 MG; Start 07/20/18 at 23:00 Acetaminophen (Tylenol Tab) 650 mg Q6H PRN PO PAIN LEVEL 1-3 OR FEVER; Start 07/20/18 at 23:00 Acetaminophen (Tylenol Supp) 650 mg Q6H PRN [place] PAIN LEVEL 1-3 OR FEVER; Start 07/20/18 at 23:00 Docusate Sodium (Colace) 100 mg Q12H PRN PO CONSTIPATION; Start 07/20/18 at 23:00 Bisacodyl (Dulcolax) 5 mg DAILY PRN PO CONSTIPATION; Start 07/20/18 at 23:00 Famotidine (Pepcid) 20 mg Q12 PO Last administered on 08/01/18at 23:31; Admin Dose 20 MG; Start 07/21/18 at 09:00 Diagnostic Test (Pha) (Accu-Chek) 1 ea 02 XX Last administered on 07/31/18at 02:24; Admin Dose 1 EA; Start 07/21/18 at 02:00 Insulin Aspart (Novolog Insulin Pen) NOVOLOG *MILD* ALGORITHM WITH MEALS BEDTIME SC Last administered on 08/01/18at 13:13; Admin Dose 4 UNIT; Start 07/21/18 at 07:50 Ergocalciferol (Drisdol) 50,000 unit Lacy@0900 PO Last administered on 07/24/18at 10:34; Admin Dose 50,000 UNIT; Start 07/24/18 at 09:00 Miscellaneous Information 1 ea NOTE XX ; Start 07/20/18 at 23:00 Glucose (Glutose) 15 gm Q15M PRN PO DECREASED GLUCOSE; Start 07/20/18 at 23:00 Glucose (Glutose) 22.5 gm Q15M PRN PO DECREASED GLUCOSE; Start 07/20/18 at 23:00 Dextrose (D50w Syringe) 25 ml Q15M PRN IV DECREASED GLUCOSE; Start 07/20/18 at 23:00 Dextrose (D50w Syringe) 50 ml Q15M PRN IV DECREASED GLUCOSE; Start 07/20/18 at 23:00 Glucagon (Glucagen) 1 mg Q15M PRN IM DECREASED GLUCOSE; Start 07/20/18 at 23:00 Glucose (Glutose) 15 gm Q15M PRN BUCCAL DECREASED GLUCOSE; Start 07/20/18 at 23:00 Melatonin (Melatonin) 3 mg HS PRN PO INSOMNIA Last administered on 07/30/18 21:19; Admin Dose 3 MG; Start 07/20/18 at 23:00 Heparin Sodium (Porcine) 5,000 unit Q12 SC Last administered on 08/01/18 23:34; Admin Dose 5,000 UNIT; Start 07/21/18 at 21:00 Diclofenac Sodium (Voltaren 1% Gel) 2 gm QID TP Last administered on 07/31/18at 22:39; Admin Dose 2 GM; Start 07/22/18 at 13:00 Tramadol HCl (Ultram) 100 mg Q6H PRN PO PAIN LEVEL 6-10 Last administered on 08/01/18 01:53; Admin Dose 100 MG; Start 07/27/18 at 17:00 Furosemide (Lasix) 40 mg DAILY PO Last administered on 07/31/18at 08:44; Admin Dose 40 MG; Start 07/27/18 at 11:30 Patiromer (Veltassa) 16.8 gm DAILY PO ; Start 07/31/18 at 09:00 Guaifenesin/ Dextromethorphan (Robitussin Dm Liquid Cup) 10 ml Q4H PRN PO COUGH; Start 07/30/18 at 15:00 Heparin Sodium (Porcine) (Heparin (1000 Units/ml)) 4,000 unit AFTER DIALYSIS CATHETER Last administered on 08/01/18at 23:20; Admin Dose 4,000 UNIT; Start 07/31/18 at 18:00 Albumin Human 50 ml @ 100 mls/hr WITH DIALYSIS PRN IV SBP < 90 DURING DIALYSIS Last administered on 08/01/18 22:17; Admin Dose 100 MLS/HR; Start 07/31/18 at 18:00 Sodium Chloride (NS) -To prime the dialy... DIRECTED FOR HD PRN IV HD; Start 07/31/18 at 18:00 KOFI SWANN MD Aug 02, 2018 11:43
[2018-08-02] MEDS: LOPERAMIDE 2 MG CAP PO SCH (13:01)
[2018-08-02] MEDS: FAMOTIDINE 20 MG TAB PO SCH ×2 (13:02→20:10)
[2018-08-02] MEDS: PATIROMER CALCIUM SORBITEX 16.8 GM PKT PO SCH (13:02)
[2018-08-02] MEDS: ALLOPURINOL 100 MG TAB PO SCH (13:02)
[2018-08-02] MEDS: HEPARIN 5,000 UNIT/1 ML VIAL SC SCH ×2 (13:04→20:17)
[2018-08-02] MEDS: FUROSEMIDE 40 MG TAB PO SCH (13:06)
[2018-08-02] MEDS: DICLOFENAC SODIUM 1% GEL 100 GM TUBE TP SCH ×4 (13:17→21:00)
[2018-08-02] MEDS: BALSAM PERU/CASTOR OIL 60 GM TUBE TOP SCH ×2 (13:17→21:17)
--- NOTE | 2018-08-02 14:35 | RADRPT ---
Vent Rate: 89 bpm RR Interval: [address] Interval: 156 msec QRS Duration: 104 msec QT Interval: 386 msec QTC Interval: 469 msec P-R-T [place]: 52 - -36 - 63 degrees Normal sinus rhythm Left axis deviation Abnormal ECG Electronically Signed By: Oscar Pretty [id number]
--- NOTE | 2018-08-02 14:36 | RADRPT ---
Vent Rate: 100 bpm RR Interval: 0 msec [place] Interval: 170 msec QRS Duration: 112 msec QT Interval: 364 msec QTC Interval: 469 msec P-R-T [place]: 53 - -40 - 71 degrees Normal sinus rhythm Left axis deviation Cannot rule out Anterior infarct , age undetermined Abnormal ECG Electronically Signed By: Oscar Pretty [id number]
[2018-08-02] MEDS: MELATONIN 3 MG TABLET PO PRN (20:10)
[2018-08-02] MEDS: traMADol 50 MG TAB PO PRN (20:10)
--- NOTE | 2018-08-02 20:33 | CONS ---
DATE OF ADMISSION: 07/23/2018 DATE OF CONSULTATION: 08/02/2018 HISTORY OF PRESENT ILLNESS: The patient is a 58-year-old female who was admitted on 07/20/2018 when she came to the emergency room complaining of her inability to walk. She has multiple medical problems including chronic kidney disease, diabetes mellitus, hypertension, neuropathy, involving lower extremities, history of congestive heart failure and morbid obesity. Orthopedic surgery was consulted because of her complaints of pain involving her left shoulder and le ft upper extremity. On inquiring, she claims that she started to have problems in the left upper extremity and shoulder a fter having an AV fistula created over her right arm. PHYSICAL EXAMINATION: My examination revealed a palpable tenderness over the AV fistula site. Howev er, she was having pain during the range of motion of the left shoulder. Deep palpation revealed albina t there was tenderness in the subacromial area. Impingement test was positive. DIAGNOSTIC IMPRESSION: 1. Shoulder impingement syndrome, rule out possible rotator cuff tear. 2. Tenderness over the AV fistula site which is nonfunctioning. RECOMMENDATIONS FOR MANAGEMENT: 1. Trial of steroid injection into the subacromial space. 2. If the symptomatic relief following the steroid injection is not satisfactory, then MRI scan of t he left shoulder. Following my evaluation, immediate steroid injection into the subacromial space was strongly recommen ded. However, she refused the injection unless the patient could be placed under general anesthesia and the attempt was abandoned. Dictated By: SULY MOYER MD IK/NTS Conf#: [id number] DID#: [id number] CC: BRIAN ROBLEDO MD;*EndCC*
[2018-08-02 20:47] VITALS: BP 120/58; PULSE 66; RESP 20
[2018-08-03] MEDS: ACCU-CHEK XX SCH ×2 (02:00→23:15)
[2018-08-03 02:30] VITALS: BP 132/66; PULSE 62; RESP 19
[2018-08-03] MEDS: INSULIN ASPART [NOVOLOG] 3 ML PEN SC SCH ×4 (07:50→20:11)
[2018-08-03 08:20] VITALS: BP 143/71; PULSE 80; RESP 18
[2018-08-03] MEDS: PATIROMER CALCIUM SORBITEX 16.8 GM PKT PO SCH (09:00)
[2018-08-03] MEDS: BALSAM PERU/CASTOR OIL 60 GM TUBE TOP SCH ×2 (09:00→21:26)
[2018-08-03] MEDS: DICLOFENAC SODIUM 1% GEL 100 GM TUBE TP SCH ×4 (09:00→21:27)
[2018-08-03] MEDS ORDERED: HEPARIN 5,000 UNIT/0.5 ML VIAL ONE ×2 (09:10→21:23)
[2018-08-03] MEDS: FUROSEMIDE 40 MG TAB PO SCH (09:22)
[2018-08-03] MEDS: FAMOTIDINE 20 MG TAB PO SCH ×2 (09:22→21:26)
[2018-08-03] MEDS: ALLOPURINOL 100 MG TAB PO SCH (09:22)
[2018-08-03] MEDS: LOPERAMIDE 2 MG CAP PO SCH (09:22)
[2018-08-03] MEDS: HEPARIN 5,000 UNIT/1 ML VIAL SC SCH ×2 (09:23→22:00)
[2018-08-03] MEDS ORDERED: CEFTRIAXONE 1 GM/50 ML (PMX) 50 ML IVPB SCH (12:00)
--- NOTE | 2018-08-03 15:22 | PN ---
Date/Time of Note Date/Time of Note DATE: 08/03/18 TIME: 15:22 Assessment/Plan VTE Prophylaxis VTE Prophylaxis Intervention: SCD's Lines/Catheters IV Catheter Type (from Nrs): permacath Urinary Cath still in place: No Assessment/Plan Chief Complaint/Hosp Course 58 y/o with 1. . ckd iii-iv now with the complications of hyperkalemia, patient has been refusing Kayexalate Veltassa has also been refusing dialysis, patient was e xplained the risks and consequences and patient completely understands the risks and consequences, now agreed 2. c diff hx 3. Chronic kidney disease, 4. Morbid obesity. 5. Diabetes. 6. Hypertension, 7. Gout.hx 8. Neuropathy. 9. History of congestive heart failure. 10 weakness 11 deconditioning 13 Left shoulde pain, TTP ? Frozen shoulder , shoulder impingement 14 s/p Fall ? AMS confusion likley due to UTI 15 uti Plan -iv abx for UTI - ucx - pt refused cortisone injecion per ortho, will reconsider -DC all narcotics gabapentin/sleeping pill as some episode of confusion - Wound care - US with thrombosed graft - Ortho consult - c/w PT twice a day - avoid narcotics as it would limit her ability to walk for PT as it happened last admission since pts goal is Physical therapy - low k diet Will have to arrnage for HD center/snif Subjective 24 Hr Interval Summary Free Text/Dictation Pt was refusing labs and meds explained to her that she has UTI She refused cortisone hoe per ortho Exam/Review of Systems Vital Signs Vitals Vital Signs Date Temp Pulse Resp B/P (MAP) Pulse Ox O2 O2 Flow FiO2 Time Delivery Rate 08/03/18 98.0 80 18 143/71 92 08:20 (95) 08/02/18 Nasal 00:51 Cannula Intake and Output 08/02/18 08/02/18 08/03/18 1515:00 23:00 07:00 OutputOutput Total 1 ml BalanceBalance -1 ml Exam Neck: supple Respiratory: clear to auscultation Cardiovascular: regular rate and rhythm Gastrointestinal: soft Extremities: edema (+) Neurological: LANGUAGE TEACHER II-XII intact, nl mental status, nl speech, nl strength rt permacath Results Result Diagram: 10/30/18 0107 10/30/18 0106 Results 24 hrs Laboratory Tests Test 08/02/18 17:07 08/02/18 18:10 08/02/18 20:07 08/03/18 02:04 Urine Color YELLOW Urine Clarity TURBID A Urine pH 5.0 Urine Specific 1.015 [place] Urine Ketones TRACE A Urine Nitrite NEGATIVE Urine Bilirubin NEGATIVE Urine 1+ H Urobilinogen Urine Leukocyte 2+ H Esterase Urine 8 H Microscopic RBC Urine > 182 H Microscopic WBC Urine Squamous FEW Epithelial Cells Urine Bacteria MODERATE Urine Hemoglobin 1+ H Urine Glucose NEGATIVE Urine Total 2+ H Protein Bedside Glucose 179 198 174 Medications Medications Current Medications Acetaminophen (Tylenol Tab) 325 mg Q4H PRN PO MILD PAIN(1-3)OR ELEVATED TEMP; Start 07/20/18 at 23:00 Allopurinol (Zyloprim) 100 mg DAILY PO Last administered on 08/03/18at 09:22; Admin Dose 100 MG; Start 07/21/18 at 09:00 Loperamide HCl (Imodium Cap) 2 mg DAILY PO Last administered on 08/03/18at 09:22; Admin Dose 2 MG; Start 07/21/18 at 09:00 IV Flush (NS 3 ml) 3 ml PER PROTOCOL IV ; Start 07/20/18 at 23:00 Ondansetron HCl (Zofran Inj) 4 mg Q6H PRN IV NAUSEA AND/OR VOMITING Last administered on 08/01/18at 18:57; Admin Dose 4 MG; Start 07/20/18 at 23:00 Acetaminophen (Tylenol Tab) 650 mg Q6H PRN PO PAIN LEVEL 1-3 OR FEVER; Start 07/20/18 at 23:00 Acetaminophen (Tylenol Supp) 650 mg Q6H PRN [place] PAIN LEVEL 1-3 OR FEVER; Start 07/20/18 at 23:00 Docusate Sodium (Colace) 100 mg Q12H PRN PO CONSTIPATION; Start 07/20/18 at 23:00 Bisacodyl (Dulcolax) 5 mg DAILY PRN PO CONSTIPATION; Start 07/20/18 at 23:00 Famotidine (Pepcid) 20 mg Q12 PO Last administered on 08/03/18at 09:22; Admin Dose 20 MG; Start 07/21/18 at 09:00 Diagnostic Test (Pha) (Accu-Chek) 1 ea 02 XX Last administered on 08/03/18 02:00; Admin Dose 1 EA; Start 07/21/18 at 02:00 Insulin Aspart (Novolog Insulin Pen) NOVOLOG *MILD* ALGORITHM WITH MEALS BEDTIME SC Last administered on 08/02/18 20:16; Admin Dose 1 UNIT; Start 07/21/18 at 07:50 Ergocalciferol (Drisdol) 50,000 unit Lacy@0900 PO Last administered on 07/24/18at 10:34; Admin Dose 50,000 UNIT; Start 07/24/18 at 09:00 Miscellaneous Information 1 ea NOTE XX ; Start 07/20/18 at 23:00 Glucose (Glutose) 15 gm Q15M PRN PO DECREASED GLUCOSE; Start 07/20/18 at 23:00 Glucose (Glutose) 22.5 gm Q15M PRN PO DECREASED GLUCOSE; Start 07/20/18 at 23: 00 Dextrose (D50w Syringe) 25 ml Q15M PRN IV DECREASED GLUCOSE; Start 07/20/18 at 23:00 Dextrose (D50w Syringe) 50 ml Q15M PRN IV DECREASED GLUCOSE; Start 07/20/18 at 23:00 Glucagon (Glucagen) 1 mg Q15M PRN IM DECREASED GLUCOSE; Start 07/20/18 at 23:00 Glucose (Glutose) 15 gm Q15M PRN BUCCAL DECREASED GLUCOSE; Start 07/20/18 at 23:00 Melatonin (Melatonin) 3 mg HS PRN PO INSOMNIA Last administered on 08/02/18at 20:10; Admin Dose 3 MG; Start 07/20/18 at 23:00 Heparin Sodium (Porcine) 5,000 unit Q12 SC Last administered on 08/03/18 09:23; Admin Dose 5,000 UNIT; Start 07/21/18 at 21:00 Diclofenac Sodium (Voltaren 1% Gel) 2 gm QID TP Last administered on 08/02/18 18:13; Admin Dose 2 GM; Start 07/22/18 at 13:00 Tramadol HCl (Ultram) 100 mg Q6H PRN PO PAIN LEVEL 6-10 Last administered on 08/02/18 20:10; Admin Dose 100 MG; Start 07/27/18 at 17:00 Furosemide (Lasix) 40 mg DAILY PO Last administered on 08/03/18 09:22; Admin Dose 40 MG; Start 07/27/18 at 11:30 Patiromer (Veltassa) 16.8 gm DAILY PO ; Start 07/31/18 at 09:00 Guaifenesin/ Dextromethorphan (Robitussin Dm Liquid Cup) 10 ml Q4H PRN PO COUGH; Start 07/30/18 at 15:00 Heparin Sodium (Porcine) (Heparin (1000 Units/ml)) 4,000 unit AFTER DIALYSIS CATHETER Last administered on 08/01/18at 23:20; Admin Dose 4,000 UNIT; Start 07/31/18 at 18:00 Albumin Human 50 ml @ 100 mls/hr WITH DIALYSIS PRN IV SBP < 90 DURING DIALYSIS Last administered on 08/01/18at 22:17; Admin Dose 100 MLS/HR; Start 07/31/18 at 18:00 Sodium Chloride (NS) -To prime the dialy... DIRECTED FOR HD PRN IV HD; Start 07/31/18 at 18:00 Ceftriaxone Sodium 50 ml @ 100 mls/hr Q24H IVPB ; Start 08/03/18 at 12:00 KOFI SWANN MD Aug 03, 2018 15:22
[2018-08-03] MEDS: CEFTRIAXONE 1 GM/50 ML (PMX) 50 ML IVPB SCH (16:40)
[2018-08-03 17:10] VITALS: BP 138/68; PULSE 82; RESP 18
[2018-08-03 19:25] VITALS: BP 153/75; PULSE 69; RESP 16
[2018-08-04 02:10] VITALS: BP 130/66; PULSE 73; RESP 18
[2018-08-04] MEDS: traMADol 50 MG TAB PO PRN ×2 (04:03→11:52)
[2018-08-04] MEDS: INSULIN ASPART [NOVOLOG] 3 ML PEN SC SCH ×4 (07:50→20:47)
[2018-08-04] MEDS: PATIROMER CALCIUM SORBITEX 16.8 GM PKT PO SCH (09:00)
[2018-08-04] MEDS: LOPERAMIDE 2 MG CAP PO SCH (09:00)
[2018-08-04] MEDS: HEPARIN 5,000 UNIT/1 ML VIAL SC SCH ×2 (09:00→21:00)
[2018-08-04 09:01] VITALS: BP 131/71; PULSE 73; RESP 16
[2018-08-04] MEDS: DICLOFENAC SODIUM 1% GEL 100 GM TUBE TP SCH ×4 (10:03→21:00)
[2018-08-04] MEDS: BALSAM PERU/CASTOR OIL 60 GM TUBE TOP SCH ×2 (10:03→21:00)
[2018-08-04] MEDS: ALLOPURINOL 100 MG TAB PO SCH (10:04)
[2018-08-04] MEDS: FUROSEMIDE 40 MG TAB PO SCH (10:04)
[2018-08-04] MEDS: FAMOTIDINE 20 MG TAB PO SCH ×2 (10:04→21:00)
--- NOTE | 2018-08-04 14:40 | PN ---
Date/Time of Note Date/Time of Note DATE: 08/04/18 TIME: 14:39 Assessment/Plan VTE Prophylaxis VTE Prophylaxis Intervention: SCD's Lines/Catheters IV Catheter Type (from Nrsg): permacath Urinary Cath still in place: No Assessment/Plan Chief Complaint/Hosp Course 58 y/o with 1. . ckd iii-iv now with the complications of hyperkalemia, patient has been refusing Kayexalate Veltassa has also been refusing dialysis, patient was ex plained the risks and consequences and patient completely understands the risks and consequences, now agreed 2. c diff hx 3. Chronic kidney disease, 4. Morbid obesity. 5. Diabetes. 6. Hypertension, 7. Gout.hx 8. Neuropathy. 9. History of congestive heart failure. 10 weakness 11 deconditioning 13 Left shoulde pain, TTP ? Frozen shoulder , shoulder impingement 14 s/p Fall ? AMS confusion likley due to UTI 15 uti Plan -iv abx for UTI - ucx PENDING - pt refused cortisone injecion per ortho, will reconsider -DC all narcotics gabapentin/sleeping pill as some episode of confusion - Wound care - US with thrombosed graft - Ortho consult however patient refused a cortisone - c/w PT twice a day - avoid narcotics as it would limit her ability to walk for PT as it happened last admission since pts goal is Physical therapy - low k diet Will have to arrnage for HD center/snif Subjective 24 Hr Interval Summary Free Text/Dictation Patient is much more awake today HD will be planned tomorrow Exam/Review of Systems Vital Signs Vitals Vital Signs Date Temp Pulse Resp B/P (MAP) Pulse Ox O2 O2 Flow FiO2 Time Delivery Rate 08/04/18 98.0 73 16 131/71 92 Room Air 09:01 (91) Intake and Output 08/03/18 08/03/18 08/04/18 1515:00 23:00 07:00 IntakeIntake Total 170 ml OutputOutput Total 2 ml BalanceBalance 168 ml Exam Neck: supple Respiratory: clear to auscultation Cardiovascular: regular rate and rhythm Gastrointestinal: soft Extremities: edema (+) 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, nl mental status, nl speech, nl strength rt permacath Results Result Diagram: 08/04/1893208/04/18932 Results 24 hrs Laboratory Tests Test 08/03/18 20:10 08/04/18 08:41 08/04/18 09:33 08/04/18 12:42 Bedside Glucose 159 117 180 White Blood Count 13.0 H Red Blood Count 4.11 L Hemoglobin 10.8 L Hematocrit 36.9 L Mean Corpuscular 89.8 Volume Mean Corpuscular 26.3 L Hemoglobin Mean Corpuscular 29.3 L Hemoglobin Concent Red Cell 16.8 H Distribution Width Platelet Count 243 # Mean Platelet 9.5 Volume Immature 1.200 H Granulocytes % Neutrophils % 68.1 Lymphocytes % 20.8 Monocytes % 5.5 Eosinophils % 3.9 Basophils % 0.5 Nucleated Red Blood 0.0 Cells % Immature 0.160 H Granulocytes # Neutrophils # 8.8 H Lymphocytes # 2.7 Monocytes # 0.7 Eosinophils # 0.5 Basophils # 0.1 Nucleated Red Blood 0.0 Cells # Sodium Level 138 Potassium Level 5.2 H Chloride Level 104 Carbon Dioxide 28 Level Anion Gap 6 Blood Urea Nitrogen 37 H Creatinine 4.12 H Est Glomerular 11 L Filtrat Rate mL/min Glucose Level 125 Calcium Level 8.6 Medications Medications Current Medications Acetaminophen (Tylenol Tab) 325 mg Q4H PRN PO MILD PAIN(1-3)OR ELEVATED TEMP; Start 07/20/18 at 23:00 Allopurinol (Zyloprim) 100 mg DAILY PO Last administered on 08/04/18at 10:04; Admin Dose 100 MG; Start 07/21/18 at 09:00 Loperamide HCl (Imodium Cap) 2 mg DAILY PO Last administered on 08/03/18at 09:22; Admin Dose 2 MG; Start 07/21/18 at 09:00 IV Flush (NS 3 ml) 3 ml PER PROTOCOL IV ; Start 07/20/18 at 23:00 Ondansetron HCl (Zofran Inj) 4 mg Q6H PRN IV NAUSEA AND/OR VOMITING Last administered on 08/01/18at 18:57; Admin Dose 4 MG; Start 07/20/18 at 23:00 Acetaminophen (Tylenol Tab) 650 mg Q6H PRN PO PAIN LEVEL 1-3 OR FEVER; Start 07/20/18 at 23:00 Acetaminophen (Tylenol Supp) 650 mg Q6H PRN [place] PAIN LEVEL 1-3 OR FEVER; Start 07/20/18 at 23:00 Docusate Sodium (Colace) 100 mg Q12H PRN PO CONSTIPATION; Start 07/20/18 at 23:00 Bisacodyl (Dulcolax) 5 mg DAILY PRN PO CONSTIPATION; Start 07/20/18 at 23:00 Famotidine (Pepcid) 20 mg Q12 PO Last administered on 08/04/18at 10:04; Admin Dose 20 MG; Start 07/21/18 at 09:00 Diagnostic Test (Pha) (Accu-Chek) 1 ea 02 XX Last administered on 08/03/18at 02:00; Admin Dose 1 EA; Start 07/21/18 at 02:00 Insulin Aspart (Novolog Insulin Pen) NOVOLOG *MILD* ALGORITHM WITH MEALS BEDTIME SC Last administered on 08/02/18at 20:16; Admin Dose 1 UNIT; Start 07/21/18 at 07:50 Ergocalciferol (Drisdol) 50,000 unit Lacy@0900 PO Last administered on 07/24/18at 10:34; Admin Dose 50,000 UNIT; Start 07/24/18 at 09:00 Miscellaneous Information 1 ea NOTE XX ; Start 07/20/18 at 23:00 Glucose (Glutose) 15 gm Q15M PRN PO DECREASED GLUCOSE; Start 07/20/18 at 23:00 Glucose (Glutose) 22.5 gm Q15M PRN PO DECREASED GLUCOSE; Start 07/20/18 at 23:00 Dextrose (D50w Syringe) 25 ml Q15M PRN IV DECREASED GLUCOSE; Start 07/20/18 at 23:00 Dextrose (D50w Syringe) 50 ml Q15M PRN IV DECREASED GLUCOSE; Start 07/20/18 at 23:00 Glucagon (Glucagen) 1 mg Q15M PRN IM DECREASED GLUCOSE; Start 07/20/18 at 23:00 Glucose (Glutose) 15 gm Q15M PRN BUCCAL DECREASED GLUCOSE; Start 07/20/18 at 23:00 Melatonin (Melatonin) 3 mg HS PRN PO INSOMNIA Last administered on 08/02/18at 20:10; Admin Dose 3 MG; Start 07/20/18 at 23:00 Heparin Sodium (Porcine) 5,000 unit Q12 SC Last administered on 08/03/18at 22:00; Admin Dose 5,000 UNIT; Start 07/21/18 at 21:00 Diclofenac Sodium (Voltaren 1% Gel) 2 gm QID TP Last administered on 08/04/18at 13:12; Admin Dose 2 GM; Start 07/22/18 at 13:00 Tramadol HCl (Ultram) 100 mg Q6H PRN PO PAIN LEVEL 6-10 Last administered on 08/04/18 11:52; Admin Dose 100 MG; Start 07/27/18 at 17:00 Furosemide (Lasix) 40 mg DAILY PO Last administered on 08/04/18at 10:04; Admin Dose 40 MG; Start 07/27/18 at 11:30 Patiromer (Veltassa) 16.8 gm DAILY PO ; Start 07/31/18 at 09:00 Guaifenesin/ Dextromethorphan (Robitussin Dm Liquid Cup) 10 ml Q4H PRN PO COUGH; Start 07/30/18 at 15:00 Heparin Sodium (Porcine) (Heparin (1000 Units/ml)) 4,000 unit AFTER DIALYSIS CATHETER Last administered on 08/01/18at 23:20; Admin Dose 4,000 UNIT; Start 07/31/18 at 18:00 Albumin Human 50 ml @ 100 mls/hr WITH DIALYSIS PRN IV SBP < 90 DURING DIALYSIS Last administered on 08/01/18at 22:17; Admin Dose 100 MLS/HR; Start 07/31/18 at 18:00 Sodium Chloride (NS) -To prime the dialy... DIRECTED FOR HD PRN IV HD; Start 07/31/18 at 18:00 Ceftriaxone Sodium 50 ml @ 100 mls/hr Q24H IVPB Last administered on 08/03/18at 16:40; Admin Dose 100 MLS/HR; Start 08/03/18 at 16:00 KOFI SWANN MD Aug 04, 2018 14:40
[2018-08-04] MEDS: CEFTRIAXONE 1 GM/50 ML (PMX) 50 ML IVPB SCH (16:34)
[2018-08-04] MEDS ORDERED: HEPARIN 5,000 UNIT/0.5 ML VIAL ONE (20:30)
[2018-08-04 21:15] VITALS: BP 137/62; RESP 18
[2018-08-05] VITALS (10 sets, daily range): BP systolic 90–162; BP diastolic 57–88; PULSE 75–85; RESP 16–18
[2018-08-05] MEDS: ACCU-CHEK XX SCH (02:22)
[2018-08-05] MEDS: INSULIN ASPART [NOVOLOG] 3 ML PEN SC SCH ×4 (07:50→21:00)
[2018-08-05] MEDS: HEPARIN 5,000 UNIT/1 ML VIAL SC SCH ×2 (09:00→21:00)
[2018-08-05] MEDS: ALLOPURINOL 100 MG TAB PO SCH (09:00)
[2018-08-05] MEDS: LOPERAMIDE 2 MG CAP PO SCH (09:00)
[2018-08-05] MEDS: BALSAM PERU/CASTOR OIL 60 GM TUBE TOP SCH ×2 (09:00→22:04)
[2018-08-05] MEDS: PATIROMER CALCIUM SORBITEX 16.8 GM PKT PO SCH (09:00)
[2018-08-05] MEDS: FUROSEMIDE 40 MG TAB PO SCH (09:00)
[2018-08-05] MEDS: FAMOTIDINE 20 MG TAB PO SCH ×2 (09:00→21:23)
[2018-08-05] MEDS: DICLOFENAC SODIUM 1% GEL 100 GM TUBE TP SCH ×4 (09:00→22:04)
[2018-08-05] MEDS ORDERED: HEPARIN 5,000 UNIT/0.5 ML VIAL ONE ×2 (09:24→21:18)
--- NOTE | 2018-08-05 13:05 | PN ---
Date/Time of Note Date/Time of Note DATE: 08/05/18 TIME: 13:01 Assessment/Plan VTE Prophylaxis VTE Prophylaxis Intervention: SCD's Lines/Catheters IV Catheter Type (from Nrsg): permcath Urinary Cath still in place: No Assessment/Plan Chief Complaint/Hosp Course 1. ckd, hyperkalemia 2. c diff hx 3. Opiates dependency 4. Morbid obesity. 5. Diabetes. 6. Hypertension, 7. Gout, hx 8. Neuropathy. 9. History of congestive heart failure. 10. weakness 11. deconditioning 12. Non compliance, pt refused Valtessa, HD 13. Left shoulder chronic pain. Xray was reviewed from the last visit, it is arthrosis left acromioclavicular joint Assessment/Plan -HD in progress -iv abx for UTI - urine culture G. negative rods - pt refused cortisone injection per ortho, will reconsider -DC all narcotics gabapentin/sleeping pill as some episode of confusion - Wound care - US with thrombosed graft - c/w PT twice a day - avoid narcotics as it would limit her ability to walk for PT as it happened last admission since pts goal is Physical therapy - low k diet Subjective 24 Hr Interval Summary Free Text/Dictation pt is sleeping Exam/Review of Systems Vital Signs Vitals Vital Signs Date Temp Pulse Resp B/P (MAP) Pulse Ox O2 O2 Flow FiO2 Time Delivery Rate 08/05/18 98.7 75 16 138/68 90 03:30 (91) 08/04/18 Room Air 09:01 Intake and Output 08/04/18 08/04/18 08/05/18 1515:00 23:00 07:00 IntakeIntake Total 250 ml 120 ml BalanceBalance 250 ml 120 ml Exam Head: normocephalic Neck: supple Respiratory: diminished breath sounds Cardiovascular: regular rate and rhythm Gastrointestinal: soft Neurological: lethargic Results Result Diagram: 08/04/1893208/04/18932 Results 24 hrs Laboratory Tests Test 08/04/18 17:31 08/04/18 20:38 08/05/18 02:19 08/05/18 08:54 Bedside Glucose 198 240 H 171 152 Medications Medications Current Medications Acetaminophen (Tylenol Tab) 325 mg Q4H PRN PO MILD PAIN(1-3)OR ELEVATED TEMP; Start 07/20/18 at 23:00 Allopurinol (Zyloprim) 100 mg DAILY PO Last administered on 08/04/18at 10:04; Admin Dose 100 MG; Start 07/21/18 at 09:00 Loperamide HCl (Imodium Cap) 2 mg DAILY PO Last administered on 08/03/18at 09:22; Admin Dose 2 MG; Start 07/21/18 at 09:00 IV Flush (NS 3 ml) 3 ml PER PROTOCOL IV ; Start 07/20/18 at 23:00 Ondansetron HCl (Zofran Inj) 4 mg Q6H PRN IV NAUSEA AND/OR VOMITING Last administered on 08/01/18at 18:57; Admin Dose 4 MG; Start 07/20/18 at 23:00 Acetaminophen (Tylenol Tab) 650 mg Q6H PRN PO PAIN LEVEL 1-3 OR FEVER; Start 07/20/18 at 23:00 Acetaminophen (Tylenol Supp) 650 mg Q6H PRN [place] PAIN LEVEL 1-3 OR FEVER; Start 07/20/18 at 23:00 Docusate Sodium (Colace) 100 mg Q12H PRN PO CONSTIPATION; Start 07/20/18 at 23:00 Bisacodyl (Dulcolax) 5 mg DAILY PRN PO CONSTIPATION; Start 07/20/18 at 23:00 Famotidine (Pepcid) 20 mg Q12 PO Last administered on 08/04/18at 10:04; Admin Dose 20 MG; Start 07/21/18 at 09:00 Diagnostic Test (Pha) (Accu-Chek) 1 ea 02 XX Last administered on 08/05/18at 02:22; Admin Dose 1 EA; Start 07/21/18 at 02:00 Insulin Aspart (Novolog Insulin Pen) NOVOLOG *MILD* ALGORITHM WITH MEALS BEDTIME SC Last administered on 08/04/18at 20:47; Admin Dose 2 UNIT; Start 07/21/18 at 07:50 Ergocalciferol (Drisdol) 50,000 unit Lacy@0900 PO Last administered on 07/24/18at 10:34; Admin Dose 50,000 UNIT; Start 07/24/18 at 09:00 Miscellaneous Information 1 ea NOTE XX ; Start 07/20/18 at 23:00 Glucose (Glutose) 15 gm Q15M PRN PO DECREASED GLUCOSE; Start 07/20/18 at 23:00 Glucose (Glutose) 22.5 gm Q15M PRN PO DECREASED GLUCOSE; Start 07/20/18 at 23:00 Dextrose (D50w Syringe) 25 ml Q15M PRN IV DECREASED GLUCOSE; Start 07/20/18 at 23:00 Dextrose (D50w Syringe) 50 ml Q15M PRN IV DECREASED GLUCOSE; Start 07/20/18 at 23:00 Glucagon (Glucagen) 1 mg Q15M PRN IM DECREASED GLUCOSE; Start 07/20/18 at 23:00 Glucose (Glutose) 15 gm Q15M PRN BUCCAL DECREASED GLUCOSE; Start 07/20/18 at 23:00 Melatonin (Melatonin) 3 mg HS PRN PO INSOMNIA Last administered on 08/02/18at 20:10; Admin Dose 3 MG; Start 07/20/18 at 23:00 Heparin Sodium (Porcine) 5,000 unit Q12 SC Last administered on 08/03/18at 22: 00; Admin Dose 5,000 UNIT; Start 07/21/18 at 21:00 Diclofenac Sodium (Voltaren 1% Gel) 2 gm QID TP Last administered on 08/04/18at 16:35; Admin Dose 2 GM; Start 07/22/18 at 13:00 Tramadol HCl (Ultram) 100 mg Q6H PRN PO PAIN LEVEL 6-10 Last administered on 08/04/18at 11:52; Admin Dose 100 MG; Start 07/27/18 at 17:00 Furosemide (Lasix) 40 mg DAILY PO Last administered on 08/04/18at 10:04; Admin D ose 40 MG; Start 07/27/18 at 11:30 Patiromer (Veltassa) 16.8 gm DAILY PO ; Start 07/31/18 at 09:00 Guaifenesin/ Dextromethorphan (Robitussin Dm Liquid Cup) 10 ml Q4H PRN PO COUGH; Start 07/30/18 at 15:00 Heparin Sodium (Porcine) (Heparin (1000 Units/ml)) 4,000 unit AFTER DIALYSIS CATHETER Last administered on 08/01/18at 23:20; Admin Dose 4,000 UNIT; Start 07/31/18 at 18:00 Albumin Human 50 ml @ 100 mls/hr WITH DIALYSIS PRN IV SBP < 90 DURING DIALYSIS Last administered on 08/01/18at 22:17; Admin Dose 100 MLS/HR; Start 07/31/18 at 18:00 Sodium Chloride (NS) -To prime the dialy... DIRECTED FOR HD PRN IV HD; Start 07/31/18 at 18:00 Ceftriaxone Sodium 50 ml @ 100 mls/hr Q24H IVPB Last administered on 08/04/18at 16:34; Admin Dose 100 MLS/HR; Start 08/03/18 at 16:00 WILLY MEDEIROS Aug 05, 2018 13:05
[2018-08-05] MEDS ORDERED: ALTEPLASE (CATHFLO) 2 MG INJ CATHETER ONE (16:00)
[2018-08-05] MEDS: CEFTRIAXONE 1 GM/50 ML (PMX) 50 ML IVPB SCH (21:22)
[2018-08-05] MEDS: MELATONIN 3 MG TABLET PO PRN (21:47)
[2018-08-05] MEDS: traMADol 50 MG TAB PO PRN (21:47)
[2018-08-06] MEDS: BISACODYL (EC) 5 MG TAB PO PRN (00:49)
[2018-08-06] MEDS: DOCUSATE SODIUM 100 MG CAP PO PRN (00:49)
[2018-08-06 02:00] VITALS: BP 143/67; PULSE 66; RESP 18
[2018-08-06] MEDS: ACCU-CHEK XX SCH (02:00)
[2018-08-06] MEDS: INSULIN ASPART [NOVOLOG] 3 ML PEN SC SCH ×4 (07:50→22:06)
[2018-08-06] MEDS ORDERED: HEPARIN 5,000 UNIT/0.5 ML VIAL ONE ×2 (08:06→20:10)
[2018-08-06 08:28] VITALS: BP 168/70; PULSE 72; RESP 20
[2018-08-06] MEDS: FAMOTIDINE 20 MG TAB PO SCH ×3 (08:29→20:27)
[2018-08-06] MEDS: ALLOPURINOL 100 MG TAB PO SCH (08:30)
[2018-08-06] MEDS: HEPARIN 5,000 UNIT/1 ML VIAL SC SCH ×2 (08:30→20:28)
[2018-08-06] MEDS: DICLOFENAC SODIUM 1% GEL 100 GM TUBE TP SCH ×4 (08:32→21:00)
[2018-08-06] MEDS: PATIROMER CALCIUM SORBITEX 16.8 GM PKT PO SCH (08:34)
[2018-08-06] MEDS: BALSAM PERU/CASTOR OIL 60 GM TUBE TOP SCH ×2 (08:35→21:00)
--- NOTE | 2018-08-06 12:33 | PN ---
Date/Time of Note Date/Time of Note DATE: 08/06/18 TIME: 12:33 Assessment/Plan VTE Prophylaxis VTE Prophylaxis Intervention: SCD's Lines/Catheters IV Catheter Type (from Nrsg): PERMACATH Urinary Cath still in place: No Assessment/Plan Chief Complaint/Hosp Course 1. ckd, hyperkalemia 2. c diff hx 3. Opiates dependency 4. Morbid obesity. 5. Diabetes. 6. Hypertension, 7. Gout, hx 8. Neuropathy. 9. History of congestive heart failure. 10. weakness 11. deconditioning 12. Non compliance, pt refused Valtessa, HD 13. Left shoulder chronic pain. Xray was reviewed from the last visit, it is arthrosis left acromioclavicular joint Assessment/Plan -HD Wednesday -iv abx for UTI - urine culture G. negative rods - pt refused cortisone injection per ortho, will reconsider -DC all narcotics gabapentin/sleeping pill as some episode of confusion - Wound care - US with thrombosed graft - c/w PT twice a day - avoid narcotics as it would limit her ability to walk for PT as it happened last admission since pts goal is Physical therapy - low k diet Subjective 24 Hr Interval Summary Psychological: other (insomnia) Exam/Review of Systems Vital Signs Vitals Vital Signs Date Temp Pulse Resp B/P (MAP) Pulse Ox O2 O2 Flow FiO2 Time Delivery Rate 08/06/18 97.4 72 20 168/70 93 High Flow 08:28 (102) Intake and Output 08/05/18 08/05/18 08/06/18 1515:00 23:00 07:00 IntakeIntake Total 480 ml 530 ml OutputOutput Total 700 ml BalanceBalance 480 ml -170 ml Exam right chest Permcath Constitutional: alert, oriented Respiratory: clear to auscultation Cardiovascular: regular rate and rhythm Results Result Diagram: 08/04/18 0933 08/05/18 1410 Results 24 hrs Laboratory Tests Test 08/05/18 13:27 08/05/18 14:10 08/05/18 18:22 08/05/18 21:26 Bedside Glucose 141 206 150 Sodium Level 140 Potassium Level 5.0 Chloride Level 103 Carbon Dioxide Level 28 Anion Gap 9 Blood Urea Nitrogen 44 H Creatinine 4.00 H Est Glomerular 11 L Filtrat Rate mL/min Glucose Level 150 Calcium Level 8.5 Test 08/06/18 08:27 Bedside Glucose 129 Medications Medications Current Medications Acetaminophen (Tylenol Tab) 325 mg Q4H PRN PO MILD PAIN(1-3)OR ELEVATED TEMP; Start 07/20/18 at 23:00 Allopurinol (Zyloprim) 100 mg DAILY PO Last administered on 08/06/18 08:30; Admin Dose 100 MG; Start 07/21/18 at 09:00 IV Flush (NS 3 ml) 3 ml PER PROTOCOL IV ; Start 07/20/18 at 23:00 Ondansetron HCl (Zofran Inj) 4 mg Q6H PRN IV NAUSEA AND/OR VOMITING Last administered on 08/01/18at 18:57; Admin Dose 4 MG; Start 07/20/18 at 23:00 Acetaminophen (Tylenol Tab) 650 mg Q6H PRN PO PAIN LEVEL 1-3 OR FEVER; Start 07/20/18 at 23:00 Acetaminophen (Tylenol Supp) 650 mg Q6H PRN [place] PAIN LEVEL 1-3 OR FEVER; Start 07/20/18 at 23:00 Docusate Sodium (Colace) 100 mg Q12H PRN PO CONSTIPATION Last administered on 08/06/18at 00:49; Admin Dose 100 MG; Start 07/20/18 at 23:00 Bisacodyl (Dulcolax) 5 mg DAILY PRN PO CONSTIPATION Last administered on 08/06/18at 00:49; Admin Dose 5 MG; Start 07/20/18 at 23:00 Famotidine (Pepcid) 20 mg Q12 PO Last administered on 08/05/18at 21:23; Admin Dose 20 MG; Start 07/21/18 at 09:00 Diagnostic Test (Pha) (Accu-Chek) 1 ea 02 XX Last administered on 08/05/18 02:22; Admin Dose 1 EA; Start 07/21/18 at 02:00 Insulin Aspart (Novolog Insulin Pen) NOVOLOG *MILD* ALGORITHM WITH MEALS BEDTIME SC Last administered on 08/05/18at 18:30; Admin Dose 2 UNIT; Start 07/21/18 at 07:50 Ergocalciferol (Drisdol) 50,000 unit Lacy@0900 PO Last administered on 07/24/18at 10:34; Admin Dose 50,000 UNIT; Start 07/24/18 at 09:00 Miscellaneous Information 1 ea NOTE XX ; Start 07/20/18 at 23:00 Glucose (Glutose) 15 gm Q15M PRN PO DECREASED GLUCOSE; Start 07/20/18 at 23:00 Glucose (Glutose) 22.5 gm Q15M PRN PO DECREASED GLUCOSE; Start 07/20/18 at 23:00 Dextrose (D50w Syringe) 25 ml Q15M PRN IV DECREASED GLUCOSE; Start 07/20/18 at 23:00 Dextrose (D50w Syringe) 50 ml Q15M PRN IV DECREASED GLUCOSE; Start 07/20/18 at 23:00 Glucagon (Glucagen) 1 mg Q15M PRN IM DECREASED GLUCOSE; Start 07/20/18 at 23:00 Glucose (Glutose) 15 gm Q15M PRN BUCCAL DECREASED GLUCOSE; Start 07/20/18 at 23:00 Melatonin (Melatonin) 3 mg HS PRN PO INSOMNIA Last administered on 08/05/18at 21 :47; Admin Dose 3 MG; Start 07/20/18 at 23:00 Heparin Sodium (Porcine) 5,000 unit Q12 SC Last administered on 08/03/18at 22:00; Admin Dose 5,000 UNIT; Start 07/21/18 at 21:00 Diclofenac Sodium (Voltaren 1% Gel) 2 gm QID TP Last administered on 08/06/18at 08:32; Admin Dose 2 GM; Start 07/22/18 at 13:00 Tramadol HCl (Ultram) 100 mg Q6H PRN PO PAIN LEVEL 6-10 Last administered on 08/05/18at 21:47; Admin Dose 100 MG; Start 07/27/18 at 17:00 Patiromer (Veltassa) 16.8 gm DAILY PO ; Start 07/31/18 at 09:00 Guaifenesin/ Dextromethorphan (Robitussin Dm Liquid Cup) 10 ml Q4H PRN PO COUGH; Start 07/30/18 at 15:00 Heparin Sodium (Porcine) (Heparin (1000 Units/ml)) 4,000 unit AFTER DIALYSIS CATHETER Last administered on 08/01/18at 23:20; Admin Dose 4,000 UNIT; Start 07/31/18 at 18:00 Albumin Human 50 ml @ 100 mls/hr WITH DIALYSIS PRN IV SBP < 90 DURING DIALYSIS Last administered on 08/01/18at 22:17; Admin Dose 100 MLS/HR; Start 07/31/18 at 18:00 Sodium Chloride (NS) -To prime the dialy... DIRECTED FOR HD PRN IV HD; Start 07/31/18 at 18:00 Ceftriaxone Sodium 50 ml @ 100 mls/hr Q24H IVPB Last administered on 08/05/18at 21:22; Admin Dose 100 MLS/HR; Start 08/03/18 at 16:00 WILLY MEDEIROS Aug 06, 2018 12:33
[2018-08-06] MEDS: CEFTRIAXONE 1 GM/50 ML (PMX) 50 ML IVPB SCH (16:05)
[2018-08-06] MEDS: HEPARIN 1000 UNITS/ML 10 ML INJ CATHETER SCH (19:01)
[2018-08-06 20:00] VITALS: BP 107/71; PULSE 86; RESP 18
[2018-08-06] MEDS: ACETAMINOPHEN 325 MG TAB PO PRN (20:27)
[2018-08-07] MEDS: traMADol 50 MG TAB PO PRN ×3 (01:37→20:26)
[2018-08-07] MEDS: MELATONIN 3 MG TABLET PO PRN (01:38)
[2018-08-07] MEDS: ACCU-CHEK XX SCH (02:00)
[2018-08-07 02:49] VITALS: BP 132/69; PULSE 68; RESP 18
[2018-08-07] MEDS: INSULIN ASPART [NOVOLOG] 3 ML PEN SC SCH ×4 (07:50→21:11)
[2018-08-07] MEDS ORDERED: HEPARIN 5,000 UNIT/0.5 ML VIAL ONE ×2 (08:00→20:20)
[2018-08-07 08:16] VITALS: BP 197/98; PULSE 79; RESP 18
[2018-08-07] MEDS: DOCUSATE SODIUM 100 MG CAP PO PRN (08:39)
[2018-08-07] MEDS: FAMOTIDINE 20 MG TAB PO SCH ×2 (08:39→20:23)
[2018-08-07] MEDS: ALLOPURINOL 100 MG TAB PO SCH (08:40)
[2018-08-07] MEDS: ERGOCALCIFEROL 50,000 UNIT CAP PO SCH (08:40)
[2018-08-07] MEDS: BISACODYL (EC) 5 MG TAB PO PRN (08:40)
[2018-08-07] MEDS: HEPARIN 5,000 UNIT/1 ML VIAL SC SCH ×2 (08:41→20:32)
[2018-08-07] MEDS: BALSAM PERU/CASTOR OIL 60 GM TUBE TOP SCH ×2 (08:48→21:00)
[2018-08-07] MEDS: DICLOFENAC SODIUM 1% GEL 100 GM TUBE TP SCH ×4 (08:51→21:00)
[2018-08-07] MEDS: PATIROMER CALCIUM SORBITEX 16.8 GM PKT PO SCH (08:52)
[2018-08-07] MEDS ORDERED: LORATADINE 10 MG TAB PO PRN (12:30)
[2018-08-07 14:00] VITALS: BP 149/82; PULSE 80; RESP 18
--- NOTE | 2018-08-07 14:05 | PN ---
Date/Time of Note Date/Time of Note DATE: 08/07/18 TIME: 14:03 Assessment/Plan VTE Prophylaxis VTE Prophylaxis Intervention: other Lines/Catheters IV Catheter Type (from Nrsg): Central Line Central line still needed: Yes Urinary Cath still in place: No Assessment/Plan Chief Complaint/Hosp Course 1. ckd 2. c diff hx 3. Chronic kidney disease, 4. Morbid obesity. 5. Diabetes. 6. Hypertension, 7. Gout.hx 8. Neuropathy. 9. History of congestive heart failure. 10 weakness 11 deconditioning 12 hyperkalemia on hd 13 non compliancew meds and hd plan ck labs hd renal diet antibiotic Subjective 24 Hr Interval Summary Respiratory: no complaints Cardiovascular: no complaints Gastrointestinal: no complaints Genitourinary: No discharge Musculoskeletal: no complaints Skin: no complaints Exam/Review of Systems Vital Signs Vitals Vital Signs Date Temp Pulse Resp B/P (MAP) Pulse Ox O2 O2 Flow FiO2 Time Delivery Rate 08/07/18 97.5 79 18 197/98 94 08:16 (131) 08/06/18 High Flow 08:28 Intake and Output 08/06/18 08/06/18 08/07/18 1515:00 23:00 07:00 IntakeIntake Total 240 ml 170 ml 120 ml BalanceBalance 240 ml 170 ml 120 ml Exam Neck: supple Respiratory: clear to auscultation Cardiovascular: regular rate and rhythm, nl pulses Gastrointestinal: soft, bowel sounds (+) Extremities: edema (neg) Results Result Diagram: 08/04/18 0933 08/05/18 1410 Results 24 hrs Laboratory Tests Test 08/06/18 22:03 08/07/18 01:14 08/07/18 08:31 08/07/18 12:46 Bedside Glucose 198 149 107 145 Medications Medications Current Medications Acetaminophen (Tylenol Tab) 325 mg Q4H PRN PO MILD PAIN(1-3)OR ELEVATED TEMP; Start 07/20/18 at 23:00 Allopurinol (Zyloprim) 100 mg DAILY PO Last administered on 08/07/18at 08:40; Admin Dose 100 MG; Start 07/21/18 at 09:00 IV Flush (NS 3 ml) 3 ml PER PROTOCOL IV ; Start 07/20/18 at 23:00 Ondansetron HCl (Zofran Inj) 4 mg Q6H PRN IV NAUSEA AND/OR VOMITING Last administered on 08/01/18 18:57; Admin Dose 4 MG; Start 07/20/18 at 23:00 Acetaminophen (Tylenol Tab) 650 mg Q6H PRN PO PAIN LEVEL 1-3 OR FEVER Last administered on 08/06/18 20:27; Admin Dose 650 MG; Start 07/20/18 at 23:00 Acetaminophen (Tylenol Supp) 650 mg Q6H PRN [place] PAIN LEVEL 1-3 OR FEVER; Start 07/20/18 at 23:00 Docusate Sodium (Colace) 100 mg Q12H PRN PO CONSTIPATION Last administered on 08/07/18 08:39; Admin Dose 100 MG; Start 07/20/18 at 23:00 Bisacodyl (Dulcolax) 5 mg DAILY PRN PO CONSTIPATION Last administered on 08/07/18 08:40; Admin Dose 5 MG; Start 07/20/18 at 23:00 Famotidine (Pepcid) 20 mg Q12 PO Last administered on 08/07/18 08:39; Admin Dose 20 MG; Start 07/21/18 at 09:00 Diagnostic Test (Pha) (Accu-Chek) 1 ea 02 XX Last administered on 08/05/18 02:22; Admin Dose 1 EA; Start 07/21/18 at 02:00 Insulin Aspart (Novolog Insulin Pen) NOVOLOG *MILD* ALGORITHM WITH MEALS BEDTIME SC Last administered on 08/06/18 22:06; Admin Dose 1 UNIT; Start 07/21/18 at 07:50 Ergocalciferol (Drisdol) 50,000 unit Lacy@0900 PO Last administered on 08/07/18 08:40; Admin Dose 50,000 UNIT; Start 07/24/18 at 09:00 Miscellaneous Information 1 ea NOTE XX ; Start 07/20/18 at 23:00 Glucose (Glutose) 15 gm Q15M PRN PO DECREASED GLUCOSE; Start 07/20/18 at 23:00 Glucose (Glutose) 22.5 gm Q15M PRN PO DECREASED GLUCOSE; Start 07/20/18 at 23:00 Dextrose (D50w Syringe) 25 ml Q15M PRN IV DECREASED GLUCOSE; Start 07/20/18 at 23:00 Dextrose (D50w Syringe) 50 ml Q15M PRN IV DECREASED GLUCOSE; Start 07/20/18 at 23:00 Glucagon (Glucagen) 1 mg Q15M PRN IM DECREASED GLUCOSE; Start 07/20/18 at 23:00 Glucose (Glutose) 15 gm Q15M PRN BUCCAL DECREASED GLUCOSE; Start 07/20/18 at 23:00 Melatonin (Melatonin) 3 mg HS PRN PO INSOMNIA Last administered on 08/07/18 01:38; Admin Dose 3 MG; Start 07/20/18 at 23:00 Heparin Sodium (Porcine) 5,000 unit Q12 SC Last administered on 08/07/18 08:41; Admin Dose 5,000 UNIT; Start 07/21/18 at 21:00 Diclofenac Sodium (Voltaren 1% Gel) 2 gm QID TP Last administered on 08/06/18 08:32; Admin Dose 2 GM; Start 07/22/18 at 13:00 Tramadol HCl (Ultram) 100 mg Q6H PRN PO PAIN LEVEL 6-10 Last administered on 08/07/18 08:39; Admin Dose 100 MG; Start 07/27/18 at 17:00 Patiromer (Veltassa) 16.8 gm DAILY PO Last administered on 08/07/18 08:52; Admin Dose 16.8 GM; Start 07/31/18 at 09:00 Guaifenesin/ Dextromethorphan (Robitussin Dm Liquid Cup) 10 ml Q4H PRN PO COUGH; Start 07/30/18 at 15:00 Heparin Sodium (Porcine) (Heparin (1000 Units/ml)) 4,000 unit AFTER DIALYSIS CATHETER Last administered on 08/06/18 19:01; Admin Dose 4,700 UNIT; Start 07/31/18 at 18:00 Albumin Human 50 ml @ 100 mls/hr WITH DIALYSIS PRN IV SBP < 90 DURING DIALYSIS Last administered on 08/01/18 22:17; Admin Dose 100 MLS/HR; Start 07/31/18 at 18:00 Sodium Chloride (NS) -To prime the dialy... DIRECTED FOR HD PRN IV HD; Start 07/31/18 at 18:00 Ceftriaxone Sodium 50 ml @ 100 mls/hr Q24H IVPB Last administered on 08/06/18 16:05; Admin Dose 100 MLS/HR; Start 08/03/18 at 16:00 Loratadine (Claritin) 10 mg DAILY PRN PO ALLERGIC REACTION Last administered on 08/07/18at 12:48; Admin Dose 10 MG; Start 08/07/18 at 12:30 BRIAN ROBLEDO MD Aug 07, 2018 14:04
[2018-08-07] MEDS: CEFTRIAXONE 1 GM/50 ML (PMX) 50 ML IVPB SCH (16:09)
[2018-08-07 20:05] VITALS: BP 185/135; PULSE 74; RESP 18
[2018-08-07 21:15] VITALS: BP 123/99; PULSE 57; RESP 19
[2018-08-08] VITALS (16 sets, daily range): BP systolic 137–196; BP diastolic 72–112; PULSE 67–83; RESP 16–18
[2018-08-08] MEDS: ACCU-CHEK XX SCH (02:00)
[2018-08-08] MEDS: traMADol 50 MG TAB PO PRN ×2 (04:50→21:21)
[2018-08-08] MEDS: INSULIN ASPART [NOVOLOG] 3 ML PEN SC SCH ×4 (07:50→21:00)
[2018-08-08] MEDS ORDERED: HEPARIN 5,000 UNIT/0.5 ML VIAL ONE ×2 (08:58→21:02)
[2018-08-08] MEDS: PATIROMER CALCIUM SORBITEX 16.8 GM PKT PO SCH (09:00)
[2018-08-08] MEDS: BALSAM PERU/CASTOR OIL 60 GM TUBE TOP SCH ×2 (10:09→21:23)
[2018-08-08] MEDS: ALLOPURINOL 100 MG TAB PO SCH (10:09)
[2018-08-08] MEDS: DICLOFENAC SODIUM 1% GEL 100 GM TUBE TP SCH ×4 (10:09→21:23)
[2018-08-08] MEDS: FAMOTIDINE 20 MG TAB PO SCH ×2 (10:09→21:10)
[2018-08-08] MEDS: HEPARIN 5,000 UNIT/1 ML VIAL SC SCH ×2 (10:11→21:00)
--- NOTE | 2018-08-08 10:50 | PN ---
Date/Time of Note Date/Time of Note DATE: 08/08/18 TIME: 10:47 Assessment/Plan VTE Prophylaxis VTE Prophylaxis Intervention: SCD's Lines/Catheters IV Catheter Type (from Nrsg): Central Line Central line still needed: No Urinary Cath still in place: No Assessment/Plan Chief Complaint/Hosp Course 58 y/o with 1. . ckd iii-iv now with the complications of hyperkalemia, patient has been refusing Kayexalate Veltassa has also been refusing dialysis, patient was explained the risks and consequences and patient completely understands the risks and consequences, now agreed 2. c diff hx 3. Chronic kidney disease, 4. Morbid obesity. 5. Diabetes. 6. Hypertension, 7. Gout.hx 8. Neuropathy. 9. History of congestive heart failure. 10 weakness 11 deconditioning 13 Left shoulde pain, TTP ? Frozen shoulder , shoulder impingement 14 s/p Fall ? AMS confusion likley due to UTI 15 uti klebsiella and enterococcus Plan - cw rocephin -- pt refused cortisone injecion per ortho -Diffuse labs -DC all narcotics gabapentin/sleeping pill as some episode of confusion - Wound care - US with thrombosed graft - Ortho consult however patient refused a cortisone shot - c/w PT twice a day - avoid narcotics as it would limit her ability to walk for PT as it happened last admission since pts goal is Physical therapy - low k diet - hd today -Resume home hydralazine -tyenolol on as needed headache Will have to arrnage for HD center/snif Subjective 24 Hr Interval Summary Free Text/Dictation She is refusing labs today Agreeable to go for hemodialysis Mild headache Exam/Review of Systems Vital Signs Vitals Vital Signs Date Temp Pulse Resp B/P (MAP) Pulse Ox O2 O2 Flow FiO2 Time Delivery Rate 08/08/18 71 18 144/76 Room Air 05:43 (98) 08/08/18 97.9 96 02:12 Intake and Output 08/07/18 08/07/18 08/08/18 1515:00 23:00 07:00 IntakeIntake Total 400 ml 550 ml BalanceBalance 400 ml 550 ml Exam Neck: supple Respiratory: clear to auscultation Cardiovascular: regular rate and rhythm Gastrointestinal: soft Extremities: edema (+) Neurological: 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 II-XII intact, nl mental status, nl speech, nl strength rt permacath Results Result Diagram: 08/04/18 0933 08/05/18 1410 Results 24 hrs Laboratory Tests Test 08/07/18 12:46 08/07/18 17:49 08/07/18 21:09 08/08/18 04:49 Bedside Glucose 145 173 197 120 Test 08/08/18 08:28 Bedside Glucose 118 Medications Medications Current Medications Acetaminophen (Tylenol Tab) 325 mg Q4H PRN PO MILD PAIN(1-3)OR ELEVATED TEMP; Start 07/20/18 at 23:00 Allopurinol (Zyloprim) 100 mg DAILY PO Last administered on 08/08/18at 10:09; Admin Dose 100 MG; Start 07/21/18 at 09:00 IV Flush (NS 3 ml) 3 ml PER PROTOCOL IV ; Start 07/20/18 at 23:00 Ondansetron HCl (Zofran Inj) 4 mg Q6H PRN IV NAUSEA AND/OR VOMITING Last administered on 08/01/18at 18:57; Admin Dose 4 MG; Start 07/20/18 at 23:00 Acetaminophen (Tylenol Tab) 650 mg Q6H PRN PO PAIN LEVEL 1-3 OR FEVER Last administered on 08/06/18 20:27; Admin Dose 650 MG; Start 07/20/18 at 23:00 Acetaminophen (Tylenol Supp) 650 mg Q6H PRN SC PAIN LEVEL 1-3 OR FEVER; Start 07/20/18 at 23:00 Docusate Sodium (Colace) 100 mg Q12H PRN PO CONSTIPATION Last administered on 08/07/18 08:39; Admin Dose 100 MG; Start 07/20/18 at 23:00 Bisacodyl (Dulcolax) 5 mg DAILY PRN PO CONSTIPATION Last administered on 08/07/18 08:40; Admin Dose 5 MG; Start 07/20/18 at 23:00 Famotidine (Pepcid) 20 mg Q12 PO Last administered on 08/08/18 10:09; Admin Dose 20 MG; Start 07/21/18 at 09:00 Diagnostic Test (Pha) (Accu-Chek) 1 ea 02 XX Last administered on 08/05/18 02:22; Admin Dose 1 EA; Start 07/21/18 at 02:00 Insulin Aspart (Novolog Insulin Pen) NOVOLOG *MILD* ALGORITHM WITH MEALS BEDTIME SC Last administered on 08/07/18at 21:11; Admin Dose 1 UNIT; Start 07/21/18 at 07:50 Ergocalciferol (Drisdol) 50,000 unit Lacy@0900 PO Last administered on 08/07/18 08:40; Admin Dose 50,000 UNIT; Start 07/24/18 at 09:00 Miscellaneous Information 1 ea NOTE XX ; Start 07/20/18 at 23:00 Glucose (Glutose) 15 gm Q15M PRN PO DECREASED GLUCOSE; Start 07/20/18 at 23:00 Glucose (Glutose) 22.5 gm Q15M PRN PO DECREASED GLUCOSE; Start 07/20/18 at 23:00 Dextrose (D50w Syringe) 25 ml Q15M PRN IV DECREASED GLUCOSE; Start 07/20/18 at 23:00 Dextrose (D50w Syringe) 50 ml Q15M PRN IV DECREASED GLUCOSE; Start 07/20/18 at 23:00 Glucagon (Glucagen) 1 mg Q15M PRN IM DECREASED GLUCOSE; Start 07/20/18 at 23:00 Glucose (Glutose) 15 gm Q15M PRN BUCCAL DECREASED GLUCOSE; Start 07/20/18 at 23:00 Melatonin (Melatonin) 3 mg HS PRN PO INSOMNIA Last administered on 08/07/18at 01:38; Admin Dose 3 MG; Start 07/20/18 at 23:00 Heparin Sodium (Porcine) 5,000 unit Q12 SC Last administered on 08/08/18at 10:11; Admin Dose 5,000 UNIT; Start 07/21/18 at 21:00 Diclofenac Sodium (Voltaren 1% Gel) 2 gm QID TP Last administered on 08/08/18 10:09; Admin Dose 2 GM; Start 07/22/18 at 13:00 Tramadol HCl (Ultram) 100 mg Q6H PRN PO PAIN LEVEL 6-10 Last administered on 08/08/18 04:50; Admin Dose 100 MG; Start 07/27/18 at 17:00 Patiromer (Veltassa) 16.8 gm DAILY PO Last administered on 08/07/18 08:52; Admin Dose 16.8 GM; Start 07/31/18 at 09:00 Guaifenesin/ Dextromethorphan (Robitussin Dm Liquid Cup) 10 ml Q4H PRN PO COUGH; Start 07/30/18 at 15:00 Heparin Sodium (Porcine) (Heparin (1000 Units/ml)) 4,000 unit AFTER DIALYSIS CATHETER Last administered on 08/06/18at 19:01; Admin Dose 4,700 UNIT; Start 07/31/18 at 18:00 Albumin Human 50 ml @ 100 mls/hr WITH DIALYSIS PRN IV SBP < 90 DURING DIALYSIS Last administered on 08/01/18at 22:17; Admin Dose 100 MLS/HR; Start 07/31/18 at 18:00 Sodium Chloride (NS) -To prime the dialy... DIRECTED FOR HD PRN IV HD; Start 07/31/18 at 18:00 Ceftriaxone Sodium 50 ml @ 100 mls/hr Q24H IVPB Last administered on 08/07/18at 16:09; Admin Dose 100 MLS/HR; Start 08/03/18 at 16:00 Loratadine (Claritin) 10 mg DAILY PRN PO ALLERGIC REACTION Last administered on 08/07/18at 12:48; Admin Dose 10 MG; Start 08/07/18 at 12:30 Hydralazine HCl (Apresoline) 10 mg Q6H PRN PO ELEVATED BLOOD PRESSURE Last administered on 08/08/18 04:45; Admin Dose 10 MG; Start 08/08/18 at 04:30 KOFI SWANN MD Aug 08, 2018 10:50
[2018-08-08] MEDS: ONDANSETRON 4 MG INJ IV PRN (11:08)
[2018-08-08] MEDS: HEPARIN 1000 UNITS/ML 10 ML INJ CATHETER SCH (14:36)
[2018-08-08] MEDS: CEFTRIAXONE 1 GM/50 ML (PMX) 50 ML IVPB SCH (17:47)
[2018-08-09] MEDS: ACCU-CHEK XX SCH (02:00)
[2018-08-09 03:29] VITALS: BP 157/85; PULSE 84; RESP 18
[2018-08-09] MEDS: ONDANSETRON 4 MG INJ IV PRN (03:33)
[2018-08-09] MEDS: MELATONIN 3 MG TABLET PO PRN ×2 (03:45→23:44)
[2018-08-09] MEDS ORDERED: HEPARIN 5,000 UNIT/0.5 ML VIAL ONE ×2 (08:11→21:25)
[2018-08-09] MEDS: CIPROFLOXACIN 500 MG TAB PO SCH (08:53)
[2018-08-09] MEDS: FAMOTIDINE 20 MG TAB PO SCH ×2 (08:53→21:30)
[2018-08-09] MEDS: ALLOPURINOL 100 MG TAB PO SCH (08:53)
[2018-08-09] MEDS: HEPARIN 5,000 UNIT/1 ML VIAL SC SCH ×2 (08:55→21:00)
[2018-08-09] MEDS: INSULIN ASPART [NOVOLOG] 3 ML PEN SC SCH ×4 (08:55→21:00)
[2018-08-09] MEDS: PATIROMER CALCIUM SORBITEX 16.8 GM PKT PO SCH (08:57)
[2018-08-09] MEDS: DICLOFENAC SODIUM 1% GEL 100 GM TUBE TP SCH ×4 (08:57→21:00)
[2018-08-09] MEDS: BALSAM PERU/CASTOR OIL 60 GM TUBE TOP SCH ×2 (08:57→21:00)
--- NOTE | 2018-08-09 10:04 | PN ---
Date/Time of Note Date/Time of Note DATE: 08/09/18 TIME: 10:03 Assessment/Plan VTE Prophylaxis VTE Prophylaxis Intervention: SCD's Lines/Catheters IV Catheter Type (from Nrsg): PERMA CATH Urinary Cath still in place: No Assessment/Plan Chief Complaint/Hosp Course 58 y/o with 1. . ckd iii-iv now with the complications of hyperkalemia, patient has been refusing Kayexalate Veltassa has also been refusing dialysis, patient was e xplained the risks and consequences and patient completely understands the risks and consequences, now agreed 2. c diff hx 3. Chronic kidney disease, 4. Morbid obesity. 5. Diabetes. 6. Hypertension, 7. Gout.hx 8. Neuropathy. 9. History of congestive heart failure. 10 weakness 11 deconditioning 13 Left shoulde pain, TTP ? Frozen shoulder , shoulder impingement 14 s/p Fall ? AMS confusion likley due to UTI 15 uti klebsiella and enterococcus Plan - cw rocephin /and Cipro -- pt refused cortisone injecion per ortho -Patient intermittently refusing labs labs -DC all narcotics gabapentin/sleeping pill as some episode of confusion - Wound care - US with thrombosed graft - Ortho consult however patient refused a cortisone shot - c/w PT twice a day - avoid narcotics as it would limit her ability to walk for PT as it happened last admission since pts goal is Physical therapy - low k diet -Post HD yesterday -cw home hydralazine -tyenolol on as needed headache Will have to arrnage for HD center/snif Subjective 24 Hr Interval Summary Free Text/Dictation Status post HD yesterday Is exhausted Exam/Review of Systems Vital Signs Vitals Vital Signs Date Temp Pulse Resp B/P (MAP) Pulse Ox O2 O2 Flow FiO2 Time Delivery Rate 08/09/18 98.8 84 18 157/85 93 Room Air 03:29 (109) Intake and Output 08/08/18 08/08/18 08/09/18 1414:59 22:59 06:59 IntakeIntake Total 270 ml OutputOutput Total 3400 ml 2 ml BalanceBalance -3400 ml 268 ml Exam Neck: supple Respiratory: clear to auscultation Cardiovascular: regular rate and rhythm Gastrointestinal: soft Extremities: edema (+) Neurological: 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 CLUB MANAGER II-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 intact, nl mental status, nl speech, nl strength rt permacath Results Result Diagram: 08/08/18 1415 08/08/18 1415 Results 24 hrs Laboratory Tests Test 08/08/18 13:01 08/08/18 14:15 08/08/18 17:46 08/08/18 21:20 Bedside Glucose 140 216 130 White Blood Count 15.7 #H Red Blood Count 4.86 Hemoglobin 12.8 Hematocrit 42.2 Mean Corpuscular 86.8 Volume Mean Corpuscular 26.3 L Hemoglobin Mean Corpuscular 30.3 L Hemoglobin Concent Red Cell 16.6 H Distribution Width Platelet Count 273 Mean Platelet Volume 9.7 Immature 0.700 H Granulocytes % Neutrophils % 79.6 H Lymphocytes % 12.2 L Monocytes % 4.1 Eosinophils % 3.0 Basophils % 0.4 Nucleated Red Blood 0.0 Cells % Immature 0.110 H Granulocytes # Neutrophils # 12.5 H Lymphocytes # 1.9 Monocytes # 0.6 Eosinophils # 0.5 Basophils # 0.1 Nucleated Red Blood 0.0 Cells # Sodium Level 136 Potassium Level 4.3 Chloride Level 101 Carbon Dioxide Level 28 Anion Gap 7 Blood Urea Nitrogen 15 Creatinine 1.49 H Est Glomerular 36 L Filtrat Rate mL/min Glucose Level 163 Calcium Level 9.0 Total Bilirubin 0.3 Direct Bilirubin 0.00 Indirect Bilirubin 0.3 Aspartate Amino 26 Transf (AST/SGOT) Alanine 12 L Aminotransferase (AL T/SGPT) Alkaline Phosphatase 124 H Total Protein 8.3 H Albumin 3.7 Globulin 4.60 H Albumin/Globulin 0.80 Ratio Test 08/09/18 08:48 Bedside Glucose 152 Medications Medications Current Medications Acetaminophen (Tylenol Tab) 325 mg Q4H PRN PO MILD PAIN(1-3)OR ELEVATED TEMP; Start 07/20/18 at 23:00 Allopurinol (Zyloprim) 100 mg DAILY PO Last administered on 08/09/18at 08:53; Admin Dose 100 MG; Start 07/21/18 at 09:00 IV Flush (NS 3 ml) 3 ml PER PROTOCOL IV ; Start 07/20/18 at 23:00 Ondansetron HCl (Zofran Inj) 4 mg Q6H PRN IV NAUSEA AND/OR VOMITING Last administered on 08/09/18at 03:33; Admin Dose 4 MG; Start 07/20/18 at 23:00 Acetaminophen (Tylenol Tab) 650 mg Q6H PRN PO PAIN LEVEL 1-3 OR FEVER Last administered on 08/06/18 20:27; Admin Dose 650 MG; Start 07/20/18 at 23:00 Acetaminophen (Tylenol Supp) 650 mg Q6H PRN PA PAIN LEVEL 1-3 OR FEVER; Start 07/20/18 at 23:00 Docusate Sodium (Colace) 100 mg Q12H PRN PO CONSTIPATION Last administered on 08/07/18 08:39; Admin Dose 100 MG; Start 07/20/18 at 23:00 Bisacodyl (Dulcolax) 5 mg DAILY PRN PO CONSTIPATION Last administered on 08/07/18 08:40; Admin Dose 5 MG; Start 07/20/18 at 23:00 Famotidine (Pepcid) 20 mg Q12 PO Last administered on 08/09/18 08:53; Admin Dose 20 MG; Start 07/21/18 at 09:00 Diagnostic Test (Pha) (Accu-Chek) 1 ea 02 XX Last administered on 08/05/18at 02:22; Admin Dose 1 EA; Start 07/21/18 at 02:00 Insulin Aspart (Novolog Insulin Pen) NOVOLOG *MILD* ALGORITHM WITH MEALS BEDTIME SC Last administered on 08/09/18 08:55; Admin Dose 1 UNIT; Start 07/21/18 at 07:50 Ergocalciferol (Drisdol) 50,000 unit Lacy@0900 PO Last administered on 08/07/18 08:40; Admin Dose 50,000 UNIT; Start 07/24/18 at 09:00 Miscellaneous Information 1 ea NOTE XX ; Start 07/20/18 at 23:00 Glucose (Glutose) 15 gm Q15M PRN PO DECREASED GLUCOSE; Start 07/20/18 at 23:00 Glucose (Glutose) 22.5 gm Q15M PRN PO DECREASED GLUCOSE; Start 07/20/18 at 23:00 Dextrose (D50w Syringe) 25 ml Q15M PRN IV DECREASED GLUCOSE; Start 07/20/18 at 23:00 Dextrose (D50w Syringe) 50 ml Q15M PRN IV DECREASED GLUCOSE; Start 07/20/18 at 23:00 Glucagon (Glucagen) 1 mg Q15M PRN IM DECREASED GLUCOSE; Start 07/20/18 at 23:00 Glucose (Glutose) 15 gm Q15M PRN BUCCAL DECREASED GLUCOSE; Start 07/20/18 at 23:00 Melatonin (Melatonin) 3 mg HS PRN PO INSOMNIA Last administered on 08/09/18 03:45; Admin Dose 3 MG; Start 07/20/18 at 23:00 Heparin Sodium (Porcine) 5,000 unit Q12 SC Last administered on 08/09/18 08:55; Admin Dose 5,000 UNIT; Start 07/21/18 at 21:00 Diclofenac Sodium (Voltaren 1% Gel) 2 gm QID TP Last administered on 08/08/18 21:23; Admin Dose 2 GM; Start 07/22/18 at 13:00 Tramadol HCl (Ultram) 100 mg Q6H PRN PO PAIN LEVEL 6-10 Last administered on 08/08/18 21:21; Admin Dose 100 MG; Start 07/27/18 at 17:00 Patiromer (Veltassa) 16.8 gm DAILY PO Last administered on 08/07/18 08:52; Admin Dose 16.8 GM; Start 07/31/18 at 09:00 Guaifenesin/ Dextromethorphan (Robitussin Dm Liquid Cup) 10 ml Q4H PRN PO COUGH; Start 07/30/18 at 15:00 Heparin Sodium (Porcine) (Heparin (1000 Units/ml)) 4,000 unit AFTER DIALYSIS CA THETER Last administered on 08/08/18 14:36; Admin Dose 4,000 UNIT; Start 07/31/18 at 18:00 Albumin Human 50 ml @ 100 mls/hr WITH DIALYSIS PRN IV SBP < 90 DURING DIALYSIS Last administered on 08/01/18 22:17; Admin Dose 100 MLS/HR; Start 07/31/18 at 18:00 Sodium Chloride (NS) -To prime the dialy... DIRECTED FOR HD PRN IV HD; Start 07/31/18 at 18:00 Ceftriaxone Sodium 50 ml @ 100 mls/hr Q24H IVPB Last administered on 08/08/18 17:47; Admin Dose 100 MLS/HR; Start 08/03/18 at 16:00 Loratadine (Claritin) 10 mg DAILY PRN PO ALLERGIC REACTION Last administered on 08/07/18 12:48; Admin Dose 10 MG; Start 08/07/18 at 12:30 Hydralazine HCl (Apresoline) 10 mg Q6H PRN PO ELEVATED BLOOD PRESSURE Last administered on 08/08/18at 04:45; Admin Dose 10 MG; Start 08/08/18 at 04:30 Hydralazine HCl (Apresoline) 25 mg TID PO Last administered on 08/09/18at 08:53; Admin Dose 25 MG; Start 08/08/18 at 13:00 Ciprofloxacin (Cipro) 500 mg DAILY@06 PO Last administered on 08/09/18at 08:53; Admin Dose 500 MG; Start 08/09/18 at 09:00 KOFI SWANN MD Aug 09, 2018 10:04
[2018-08-09] MEDS: ARTIFICIAL TEARS 15 ML OPH BOTH EYES SCH ×4 (13:00→21:29)
[2018-08-09] MEDS: CALCIUM CARBONATE 500 MG CHEW TAB PO PRN (15:20)
[2018-08-09 20:06] VITALS: BP 122/84; PULSE 82; RESP 18
[2018-08-09] MEDS: traMADol 50 MG TAB PO PRN (23:44)
[2018-08-10 00:06] VITALS: BP 144/90; PULSE 74; RESP 18
[2018-08-10] MEDS: ACCU-CHEK XX SCH (02:00)
[2018-08-10] MEDS: CIPROFLOXACIN 500 MG TAB PO SCH ×2 (06:00→06:34)
[2018-08-10] MEDS: INSULIN ASPART [NOVOLOG] 3 ML PEN SC SCH ×4 (07:50→20:40)
[2018-08-10] MEDS ORDERED: HEPARIN 5,000 UNIT/0.5 ML VIAL ONE ×2 (08:35→20:31)
[2018-08-10] MEDS: PATIROMER CALCIUM SORBITEX 16.8 GM PKT PO SCH (08:49)
[2018-08-10 08:51] VITALS: BP 107/85; PULSE 85; RESP 18
[2018-08-10] MEDS: ALLOPURINOL 100 MG TAB PO SCH (09:00)
[2018-08-10] MEDS: HEPARIN 5,000 UNIT/1 ML VIAL SC SCH ×2 (09:00→20:39)
[2018-08-10] MEDS: ARTIFICIAL TEARS 15 ML OPH BOTH EYES SCH ×4 (09:00→20:39)
[2018-08-10] MEDS: FAMOTIDINE 20 MG TAB PO SCH ×2 (09:00→20:39)
[2018-08-10] MEDS: BALSAM PERU/CASTOR OIL 60 GM TUBE TOP SCH ×2 (09:00→21:00)
[2018-08-10] MEDS: DICLOFENAC SODIUM 1% GEL 100 GM TUBE TP SCH ×4 (09:45→21:00)
[2018-08-10] MEDS: traMADol 50 MG TAB PO PRN ×2 (09:45→16:17)
--- NOTE | 2018-08-10 10:09 | PN ---
Date/Time of Note Date/Time of Note DATE: 08/10/18 TIME: 10:01 Assessment/Plan Results Result Diagram: 08/08/18 1415 08/08/18 1415 Results 24 hrs Laboratory Tests Test 08/09/18 13:43 08/09/18 17:38 08/09/18 21:32 08/10/18 08:48 Bedside Glucose 129 165 162 135 VTE Prophylaxis Risk score (from Nsg)>0 risk: 5 SCD contraindicated: other Pharmacological prophylaxis: NA/contraindicated, heparin Pharm contraindication: other Lines/Catheters IV Catheter Type (from Nrsg): permacath Central line still needed: No Urinary Cath still in place: No Assessment/Plan Hospital Course 58 y/o with 1. . ckd iii-iv now with the complications of hyperkalemia, patient has been refusing Kayexalate Veltaastrida has also been refusing dialysis, patient was explained the risks and consequences and patient completely understands the risks and consequences, now agreed 2. c diff hx 3. Chronic kidney disease, 4. Morbid obesity. 5. Diabetes. 6. Hypertension, 7. Gout.hx 8. Neuropathy. 9. History of congestive heart failure. 10 weakness 11 deconditioning 13 Left shoulde pain, TTP ? Frozen shoulder , shoulder impingement 14 s/p Fall ? AMS confusion likley due to UTI 15 uti klebsiella and enterococcus Plan -SPOKE this patient will see PT working with the patient next 3 days, patient is not participating with the PT when the PT comes -She is refusing hemodialysis she states that she wants her therapy, per patient is not participating with the therapist - cw Cipro -- pt refused cortisone injecion per ortho -Patient intermittently refusing labs labs, refused again today -DC all narcotics gabapentin/sleeping pill as some episode of confusion - Wound care - US with thrombosed graft - Ortho consult however patient refused a cortisone shot - avoid narcotics as it would limit her ability to walk for PT as it happened last admission since pts goal is Physical therapy - low k diet -cw home hydralazine -tyenolol on as needed headache Will have to arrnage for HD center/snif Subjective 24 Hr Interval Summary Free Text/Dictation Patient is refusing HD , She said that she wants to work with PT Spoke to the patient that we will see how she does with PT in the next 2-3 days as she has not been doing much with physical therapy REFUSED labs today Exam/Review of Systems Vital Signs Vitals Vital Signs Date Temp Pulse Resp B/P (MAP) Pulse Ox O2 O2 Flow FiO2 Time Delivery Rate 08/10/18 97.6 85 18 107/85 96 Room Air 08:51 (92) Intake and Output 08/09/18 08/09/18 08/10/18 1414:59 22:59 06:59 IntakeIntake Total 320 ml OutputOutput Total 2 ml BalanceBalance 318 ml Exam Neck: supple Respiratory: clear to auscultation Cardiovascular: regular rate and rhythm Gastrointestinal: soft Extremities: edema (+) Neurological: SECURITY TEAM LEAD II-XII intact, nl mental status, nl speech, nl strength rt permacath Medications Medications Current Medications Acetaminophen (Tylenol Tab) 325 mg Q4H PRN PO MILD PAIN(1-3)OR ELEVATED TEMP; Start 07/20/18 at 23:00 Allopurinol (Zyloprim) 100 mg DAILY PO Last administered on 08/09/18at 08:53; Admin Dose 100 MG; Start 07/21/18 at 09:00 IV Flush (NS 3 ml) 3 ml PER PROTOCOL IV ; Start 07/20/18 at 23:00 Ondansetron HCl (Zofran Inj) 4 mg Q6H PRN IV NAUSEA AND/OR VOMITING Last administered on 08/09/18at 03:33; Admin Dose 4 MG; Start 07/20/18 at 23:00 Acetaminophen (Tylenol Tab) 650 mg Q6H PRN PO PAIN LEVEL 1-3 OR FEVER Last administered on 08/06/18 20:27; Admin Dose 650 MG; Start 07/20/18 at 23:00 Acetaminophen (Tylenol Supp) [address] PAIN LEVEL 1-3 OR FEVER; Start 07/20/18 at 23:00 Docusate Sodium (Colace) 100 mg Q12H PRN PO CONSTIPATION Last administered on 08/07/18 08:39; Admin Dose 100 MG; Start 07/20/18 at 23:00 Bisacodyl (Dulcolax) 5 mg DAILY PRN PO CONSTIPATION Last administered on 10/07/17 08:40; Admin Dose 5 MG; Start 07/20/18 at 23:00 Famotidine (Pepcid) 20 mg Q12 PO Last administered on 08/09/18 21:30; Admin Dose 20 MG; Start 07/21/18 at 09:00 Diagnostic Test (Pha) (Accu-Chek) 1 ea 02 XX Last administered on 08/05/18at 02:22; Admin Dose 1 EA; Start 07/21/18 at 02:00 Insulin Aspart (Novolog Insulin Pen) NOVOLOG *MILD* ALGORITHM WITH MEALS BEDTIME SC Last administered on 08/09/18at 17:40; Admin Dose 1 UNIT; Start 07/21/18 at 07:50 Ergocalciferol (Drisdol) 50,000 unit Layc@0900 PO Last administered on 08/07/18 08:40; Admin Dose 50,000 UNIT; Start 07/24/18 at 09:00 Miscellaneous Information 1 ea NOTE XX ; Start 07/20/18 at 23:00 Glucose (Glutose) 15 gm Q15M PRN PO DECREASED GLUCOSE; Start 07/20/18 at 23:00 Glucose (Glutose) 22.5 gm Q15M PRN PO DECREASED GLUCOSE; Start 07/20/18 at 23:00 Dextrose (D50w Syringe) 25 ml Q15M PRN IV DECREASED GLUCOSE; Start 07/20/18 at 23:00 Dextrose (D50w Syringe) 50 ml Q15M PRN IV DECREASED GLUCOSE; Start 07/20/18 at 23:00 Glucagon (Glucagen) 1 mg Q15M PRN IM DECREASED GLUCOSE; Start 07/20/18 at 23:00 Glucose (Glutose) 15 gm Q15M PRN BUCCAL DECREASED GLUCOSE; Start 07/20/18 at 23:00 Melatonin (Melatonin) 3 mg HS PRN PO INSOMNIA Last administered on 08/09/18at 23:44; Admin Dose 3 MG; Start 07/20/18 at 23:00 Heparin Sodium (Porcine) 5,000 unit Q12 SC Last administered on 08/09/18at 08:55; Admin Dose 5,000 UNIT; Start 07/21/18 at 21:00 Diclofenac Sodium (Voltaren 1% Gel) 2 gm QID TP Last administered on 08/10/18 09:45; Admin Dose 2 GM; Start 07/22/18 at 13:00 Tramadol HCl (Ultram) 100 mg Q6H PRN PO PAIN LEVEL 6-10 Last administered on 08/10/18 09:45; Admin Dose 100 MG; Start 07/27/18 at 17:00 Patiromer (Veltassa) 16.8 gm DAILY PO Last administered on 08/07/18 08:52; Admin Dose 16.8 GM; Start 07/31/18 at 09:00 Guaifenesin/ Dextromethorphan (Robitussin Dm Liquid Cup) 10 ml Q4H PRN PO COUG H; Start 07/30/18 at 15:00 Heparin Sodium (Porcine) (Heparin (1000 Units/ml)) 4,000 unit AFTER DIALYSIS CATHETER Last administered on 08/08/18 14:36; Admin Dose 4,000 UNIT; Start 07/31/18 at 18:00 Albumin Human 50 ml @ 100 mls/hr WITH DIALYSIS PRN IV SBP < 90 DURING DIALYSIS Last administered on 08/01/18 22:17; Admin Dose 100 MLS/HR; Start 07/31/18 at 18:00 Sodium Chloride (NS) -To prime the dialy... DIRECTED FOR HD PRN IV HD; Start 07/31/18 at 18:00 Loratadine (Claritin) 10 mg DAILY PRN PO ALLERGIC REACTION Last administered on 08/07/18 12:48; Admin Dose 10 MG; Start 08/07/18 at 12:30 Hydralazine HCl (Apresoline) 10 mg Q6H PRN PO ELEVATED BLOOD PRESSURE Last administered on 08/08/18 04:45; Admin Dose 10 MG; Start 08/08/18 at 04:30 Hydralazine HCl (Apresoline) 25 mg TID PO Last administered on 08/09/18 21:30; Admin Dose 25 MG; Start 08/08/18 at 13:00 Ciprofloxacin (Cipro) 500 mg DAILY@06 PO Last administered on 08/09/18 08:53; Admin Dose 500 MG; Start 08/09/18 at 09:00 Eye Lubricant (Artificial Tears Oph) 2 drop QID BOTH EYES Last administered on 08/09/18 21:29; Admin Dose 2 DROP; Start 08/09/18 at 11:00 Calcium Carbonate (Tums) 500 mg PRN PRN PO HEARTBURN Last administered on 08/09/18 15:20; Admin Dose 500 MG; Start 08/09/18 at 14:30 KOFI SWANN MD Aug 10, 2018 10:08
[2018-08-10 13:37] VITALS: BP 158/71; PULSE 80; RESP 18
[2018-08-10] MEDS: CALCIUM CARBONATE 500 MG CHEW TAB PO PRN (17:07)
[2018-08-10 20:30] VITALS: BP 188/81; PULSE 76; RESP 19
[2018-08-11] MEDS: traMADol 50 MG TAB PO PRN ×3 (01:22→18:38)
[2018-08-11] MEDS: MELATONIN 3 MG TABLET PO PRN (01:23)
[2018-08-11 02:00] VITALS: BP 145/72; PULSE 72; RESP 18
[2018-08-11] MEDS: ACCU-CHEK XX SCH (02:00)
[2018-08-11] MEDS: CIPROFLOXACIN 500 MG TAB PO SCH ×2 (05:45→09:30)
[2018-08-11 07:47] VITALS: BP 91/53; PULSE 82; RESP 17
[2018-08-11] MEDS: INSULIN ASPART [NOVOLOG] 3 ML PEN SC SCH ×4 (07:50→21:52)
[2018-08-11] MEDS ORDERED: HEPARIN 5,000 UNIT/0.5 ML VIAL ONE ×2 (08:26→21:43)
[2018-08-11] MEDS: BALSAM PERU/CASTOR OIL 60 GM TUBE TOP SCH ×2 (09:00→21:00)
[2018-08-11] MEDS: ARTIFICIAL TEARS 15 ML OPH BOTH EYES SCH ×4 (09:00→21:59)
[2018-08-11] MEDS: DICLOFENAC SODIUM 1% GEL 100 GM TUBE TP SCH ×4 (09:00→21:00)
[2018-08-11] MEDS: PATIROMER CALCIUM SORBITEX 16.8 GM PKT PO SCH (09:00)
[2018-08-11] MEDS: HEPARIN 5,000 UNIT/1 ML VIAL SC SCH ×2 (09:27→21:53)
[2018-08-11] MEDS: ALLOPURINOL 100 MG TAB PO SCH (09:30)
[2018-08-11] MEDS: FAMOTIDINE 20 MG TAB PO SCH ×2 (09:30→21:53)
[2018-08-11 14:00] VITALS: BP 95/57; PULSE 83; RESP 18
--- NOTE | 2018-08-11 16:28 | PN ---
Date/Time of Note Date/Time of Note DATE: 08/11/18 TIME: 16:27 Assessment/Plan VTE Prophylaxis Risk score (from Nsg)>0 risk: 6 Pharmacological prophylaxis: heparin Lines/Catheters IV Catheter Type (from Nrsg): permacath Urinary Cath still in place: No Assessment/Plan Hospital Course 58 y/o with 1. . ckd iii-iv now with the complications of hyperkalemia, patient has been refusing Kayexalate Veltaastrida has also been refusing dialysis, patient was explained the risks and consequences and patient completely understands the risks and consequences, now agreed 2. c diff hx 3. Chronic kidney disease, 4. Morbid obesity. 5. Diabetes. 6. Hypertension, 7. Gout.hx 8. Neuropathy. 9. History of congestive heart failure. 10 weakness 11 deconditioning 13 Left shoulde pain, TTP ? Frozen shoulder , shoulder impingement 14 s/p Fall ? AMS confusion likley due to UTI 15 uti klebsiella and enterococcus Plan - cw with PT -She is refusing hemodialysis she states that she wants her therapy, per patient is not participating with the therapist - cw Cipro -- pt refused cortisone injecion per ortho -Patient intermittently refusing labs labs, refused again today -DC all narcotics gabapentin/sleeping pill as some episode of confusion - Wound care - US with thrombosed graft - Ortho consult however patient refused a cortisone shot - avoid narcotics as it would limit her ability to walk for PT as it happened last admission since pts goal is Physical therapy - low k diet -cw home hydralazine -tyenolol on as needed headache Will have to arrnage for HD center/snif Subjective 24 Hr Interval Summary Free Text/Dictation Says did good with the physical therapy yesterday but not today Exam/Review of Systems Vital Signs Vitals Vital Signs Date Temp Pulse Resp B/P (MAP) Pulse Ox O2 O2 Flow FiO2 Time Delivery Rate 08/11/18 97.5 83 18 95/57 (70) 93 14:00 08/10/18 Room Air 13:37 Intake and Output 08/10/18 08/10/18 08/11/18 1515:00 23:00 07:00 IntakeIntake Total 452 ml 300 ml 610 ml BalanceBalance 452 ml 300 ml 610 ml Exam Neck: supple Respiratory: clear to auscultation Cardiovascular: regular rate and rhythm Gastrointestinal: soft Extremities: edema (+) 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, nl mental status, nl speech, nl strength rt permacath Medications Medications Current Medications Acetaminophen (Tylenol Tab) 325 mg Q4H PRN PO MILD PAIN(1-3)OR ELEVATED TEMP; Start 07/20/18 at 23:00 Allopurinol (Zyloprim) 100 mg DAILY PO Last administered on 08/11/18 09:30; Admin Dose 100 MG; Start 07/21/18 at 09:00 IV Flush (NS 3 ml) 3 ml PER PROTOCOL IV ; Start 07/20/18 at 23:00 Ondansetron HCl (Zofran Inj) 4 mg Q6H PRN IV NAUSEA AND/OR VOMITING Last administered on 08/09/18 03:33; Admin Dose 4 MG; Start 07/20/18 at 23:00 Acetaminophen (Tylenol Tab) 650 mg Q6H PRN PO PAIN LEVEL 1-3 OR FEVER Last administered on 08/06/18 20:27; Admin Dose 650 MG; Start 07/20/18 at 23:00 Acetaminophen (Tylenol Supp) 650 mg Q6H PRN [place] PAIN LEVEL 1-3 OR FEVER; Start 07/20/18 at 23:00 Docusate Sodium (Colace) 100 mg Q12H PRN PO CONSTIPATION Last administered on 08/07/18 08:39; Admin Dose 100 MG; Start 07/20/18 at 23:00 Bisacodyl (Dulcolax) 5 mg DAILY PRN PO CONSTIPATION Last administered on 08/07/18 08:40; Admin Dose 5 MG; Start 07/20/18 at 23:00 Famotidine (Pepcid) 20 mg Q12 PO Last administered on 08/11/18 09:30; Admin Dose 20 MG; Start 07/21/18 at 09:00 Diagnostic Test (Pha) (Accu-Chek) 1 ea 02 XX Last administered on 08/05/18 02:22; Admin Dose 1 EA; Start 07/21/18 at 02:00 Insulin Aspart (Novolog Insulin Pen) NOVOLOG *MILD* ALGORITHM WITH MEALS BEDTIME SC Last administered on 08/10/18 18:01; Admin Dose 2 UNIT; Start 07/21/18 at 07:50 Ergocalciferol (Drisdol) 50,000 unit Lacy@0900 PO Last administered on 08/07/18at 08:40; Admin Dose 50,000 UNIT; Start 07/24/18 at 09:00 Miscellaneous Information 1 ea NOTE XX ; Start 07/20/18 at 23:00 Glucose (Glutose) 15 gm Q15M PRN PO DECREASED GLUCOSE; Start 07/20/18 at 23:00 Glucose (Glutose) 22.5 gm Q15M PRN PO DECREASED GLUCOSE; Start 07/20/18 at 23:00 Dextrose (D50w Syringe) 25 ml Q15M PRN IV DECREASED GLUCOSE; Start 07/20/18 at 23:00 Dextrose (D50w Syringe) 50 ml Q15M PRN IV DECREASED GLUCOSE; Start 07/20/18 at 23:00 Glucagon (Glucagen) 1 mg Q15M PRN IM DECREASED GLUCOSE; Start 07/20/18 at 23:00 Glucose (Glutose) 15 gm Q15M PRN BUCCAL DECREASED GLUCOSE; Start 07/20/18 at 23:00 Melatonin (Melatonin) 3 mg HS PRN PO INSOMNIA Last administered on 08/11/18at 01:23; Admin Dose 3 MG; Start 07/20/18 at 23:00 Heparin Sodium (Porcine) 5,000 unit Q12 SC Last administered on 08/11/18 09:27; Admin Dose 5,000 UNIT; Start 07/21/18 at 21:00 Diclofenac Sodium (Voltaren 1% Gel) 2 gm QID TP Last administered on 08/10/18 16:18; Admin Dose 2 GM; Start 07/22/18 at 13:00 Tramadol HCl (Ultram) 100 mg Q6H PRN PO PAIN LEVEL 6-10 Last administered on 08/11/18 09:26; Admin Dose 100 MG; Start 07/27/18 at 17:00 Patiromer (Veltassa) 16.8 gm DAILY PO Last administered on 08/07/18at 08:52; Admin Dose 16.8 GM; Start 07/31/18 at 09:00 Guaifenesin/ Dextromethorphan (Robitussin Dm Liquid Cup) 10 ml Q4H PRN PO COUGH; Start 07/30/18 at 15:00 Heparin Sodium (Porcine) (Heparin (1000 Units/ml)) 4,000 unit AFTER DIALYSIS CATHETER Last administered on 08/08/18 14:36; Admin Dose 4,000 UNIT; Start 07/31/18 at 18:00 Albumin Human 50 ml @ 100 mls/hr WITH DIALYSIS PRN IV SBP < 90 DURING DIALYSIS Last administered on 08/01/18 22:17; Admin Dose 100 MLS/HR; Start 07/31/18 at 18:00 Sodium Chloride (NS) -To prime the dialy... DIRECTED FOR HD PRN IV HD; Start 07/31/18 at 18:00 Loratadine (Claritin) 10 mg DAILY PRN PO ALLERGIC REACTION Last administered on 08/07/18 12:48; Admin Dose 10 MG; Start 08/07/18 at 12:30 Hydralazine HCl (Apresoline) 10 mg Q6H PRN PO ELEVATED BLOOD PRESSURE Last administered on 08/08/18 04:45; Admin Dose 10 MG; Start 08/08/18 at 04:30 Hydralazine HCl (Apresoline) 25 mg TID PO Last administered on 08/11/18 13:08; Admin Dose 25 MG; Start 08/08/18 at 13:00 Ciprofloxacin (Cipro) 500 mg DAILY@06 PO Last administered on 08/11/18 09:30; Admin Dose 500 MG; Start 08/09/18 at 09:00 Eye Lubricant (Artificial Tears Oph) 2 drop QID BOTH EYES Last administered on 08/10/18 20:39; Admin Dose 2 DROP; Start 08/09/18 at 11:00 Calcium Carbonate (Tums) 500 mg PRN PRN PO HEARTBURN Last administered on 08/10/18 17:07; Admin Dose 500 MG; Start 08/09/18 at 14:30 Results Result Diagram: 08/08/18 1415 08/08/18 1415 Results 24 hrs Laboratory Tests Test 08/10/18 17:59 08/10/18 20:37 08/11/18 08:19 08/11/18 12:48 Bedside Glucose 199 151 139 127 KOFI SWANN MD Aug 11, 2018 16:28
[2018-08-11 19:10] VITALS: BP 129/58; PULSE 71; RESP 20
[2018-08-12] MEDS: MELATONIN 3 MG TABLET PO PRN (00:16)
[2018-08-12] MEDS: traMADol 50 MG TAB PO PRN ×2 (00:19→10:06)
[2018-08-12 02:20] VITALS: BP 129/85; PULSE 81; RESP 20
[2018-08-12] MEDS: ACCU-CHEK XX SCH (02:28)
[2018-08-12] MEDS: INSULIN ASPART [NOVOLOG] 3 ML PEN SC SCH ×4 (07:50→21:00)
[2018-08-12] MEDS: ARTIFICIAL TEARS 15 ML OPH BOTH EYES SCH ×4 (09:00→21:00)
[2018-08-12] MEDS: DICLOFENAC SODIUM 1% GEL 100 GM TUBE TP SCH ×4 (09:00→21:00)
[2018-08-12] MEDS: BALSAM PERU/CASTOR OIL 60 GM TUBE TOP SCH ×2 (09:00→21:00)
[2018-08-12] MEDS: PATIROMER CALCIUM SORBITEX 16.8 GM PKT PO SCH (09:00)
[2018-08-12 09:36] VITALS: BP 131/58; PULSE 78; RESP 18
[2018-08-12] MEDS ORDERED: HEPARIN 5,000 UNIT/0.5 ML VIAL ONE (09:41)
[2018-08-12] MEDS: HEPARIN 5,000 UNIT/1 ML VIAL SC SCH ×2 (10:05→21:00)
[2018-08-12] MEDS: FAMOTIDINE 20 MG TAB PO SCH ×2 (10:06→21:00)
[2018-08-12] MEDS: ALLOPURINOL 100 MG TAB PO SCH (10:06)
[2018-08-12 14:00] VITALS: BP 128/60; PULSE 80; RESP 20
--- NOTE | 2018-08-12 15:47 | PN ---
Date/Time of Note Date/Time of Note DATE: 08/12/18 TIME: 15:45 Assessment/Plan VTE Prophylaxis Risk score (from Nsg)>0 risk: 5 SCD applied (from Ns): Yes Pharmacological prophylaxis: NA/contraindicated, heparin Pharm contraindication: other Lines/Catheters IV Catheter Type (from Nrsg): permacath Urinary Cath still in place: No Assessment/Plan Hospital Course 58 y/o with 1. . ckd iii-iv now with the complications of hyperkalemia, patient has been refusing Kayexalate Veltassa has also been refusing dialysis, patient was explained the risks and consequences and patient completely understands the risks and consequences, now agreed 2. c diff hx 3. Chronic kidney disease, 4. Morbid obesity. 5. Diabetes. 6. Hypertension, 7. Gout.hx 8. Neuropathy. 9. History of congestive heart failure. 10 weakness 11 deconditioning 13 Left shoulde pain, TTP ? Frozen shoulder , shoulder impingement 14 s/p Fall ? AMS confusion ángelaley due to UTI 15 uti klebsiella and enterococcus Plan - cw with PT -She is refusing hemodialysis she states that she wants her therapy, per patient is not participating with the therapist - refusal of labs - cw Cipro -- pt refused cortisone injecion per ortho -Patient intermittently refusing labs labs, refused again today -DC all narcotics gabapentin/sleeping pill as some episode of confusion - Wound care - US with thrombosed graft - Ortho consult however patient refused a cortisone shot - avoid narcotics as it would limit her ability to walk for PT as it happened last admission since pts goal is Physical therapy - low k diet -cw home hydralazine -tyenolol on as needed headache Will have to arrnage for HD center/snif Subjective 24 Hr Interval Summary Free Text/Dictation Pt refusing hd and labs today Exam/Review of Systems Vital Signs Vitals Vital Signs Date Temp Pulse Resp B/P (MAP) Pulse Ox O2 O2 Flow FiO2 Time Delivery Rate 08/12/18 97.9 78 18 131/58 93 Room Air 09:36 (82) Intake and Output 08/11/18 08/11/18 08/12/18 1515:00 23:00 07:00 IntakeIntake Total 400 ml 200 ml 800 ml BalanceBalance 400 ml 200 ml 800 ml Exam Neck: supple Respiratory: clear to auscultation Cardiovascular: regular rate and rhythm Gastrointestinal: soft Extremities: edema (+) 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, nl mental status, nl speech, nl strength rt permacath Medications Medications Current Medications Acetaminophen (Tylenol Tab) 325 mg Q4H PRN PO MILD PAIN(1-3)OR ELEVATED TEMP; Start 07/20/18 at 23:00 Allopurinol (Zyloprim) 100 mg DAILY PO Last administered on 08/12/18 10:06; Admin Dose 100 MG; Start 07/21/18 at 09:00 IV Flush (NS 3 ml) 3 ml PER PROTOCOL IV ; Start 07/20/18 at 23:00 Ondansetron HCl (Zofran Inj) 4 mg Q6H PRN IV NAUSEA AND/OR VOMITING Last administered on 08/09/18 03:33; Admin Dose 4 MG; Start 07/20/18 at 23:00 Acetaminophen (Tylenol Tab) 650 mg Q6H PRN PO PAIN LEVEL 1-3 OR FEVER Last administered on 08/06/18 20:27; Admin Dose 650 MG; Start 07/20/18 at 23:00 Acetaminophen (Tylenol Supp) 650 mg Q6H PRN [place] PAIN LEVEL 1-3 OR FEVER; Start 07/20/18 at 23:00 Docusate Sodium (Colace) 100 mg Q12H PRN PO CONSTIPATION Last administered on 08/07/18 08:39; Admin Dose 100 MG; Start 07/20/18 at 23:00 Bisacodyl (Dulcolax) 5 mg DAILY PRN PO CONSTIPATION Last administered on 08/07/18 08:40; Admin Dose 5 MG; Start 07/20/18 at 23:00 Famotidine (Pepcid) 20 mg Q12 PO Last administered on 08/12/18 10:06; Admin Dose 20 MG; Start 07/21/18 at 09:00 Diagnostic Test (Pha) (Accu-Chek) 1 ea 02 XX Last administered on 08/12/18 02:28; Admin Dose 1 EA; Start 07/21/18 at 02:00 Insulin Aspart (Novolog Insulin Pen) NOVOLOG *MILD* ALGORITHM WITH MEALS BEDTIME SC Last administered on 08/11/18 21:52; Admin Dose 1 UNIT; Start 07/21/18 at 07:50 Ergocalciferol (Drisdol) 50,000 unit Lacy@0900 PO Last administered on 08/07/18at 08:40; Admin Dose 50,000 UNIT; Start 07/24/18 at 09:00 Miscellaneous Information 1 ea NOTE XX ; Start 07/20/18 at 23:00 Glucose (Glutose) 15 gm Q15M PRN PO DECREASED GLUCOSE; Start 07/20/18 at 23:00 Glucose (Glutose) 22.5 gm Q15M PRN PO DECREASED GLUCOSE; Start 07/20/18 at 23:00 Dextrose (D50w Syringe) 25 ml Q15M PRN IV DECREASED GLUCOSE; Start 07/20/18 at 23:00 Dextrose (D50w Syringe) 50 ml Q15M PRN IV DECREASED GLUCOSE; Start 07/20/18 at 23:00 Glucagon (Glucagen) 1 mg Q15M PRN IM DECREASED GLUCOSE; Start 07/20/18 at 2 3:00 Glucose (Glutose) 15 gm Q15M PRN BUCCAL DECREASED GLUCOSE; Start 07/20/18 at 23:00 Melatonin (Melatonin) 3 mg HS PRN PO INSOMNIA Last administered on 08/12/18at 00:16; Admin Dose 3 MG; Start 07/20/18 at 23:00 Heparin Sodium (Porcine) 5,000 unit Q12 SC Last administered on 08/12/18at 10:05; Admin Dose 5,000 UNIT; Start 07/21/18 at 21:00 Diclofenac Sodium (Voltaren 1% Gel) 2 gm QID TP Last administered on 08/10/18at 16:18; Admin Dose 2 GM; Start 07/22/18 at 13:00 Tramadol HCl (Ultram) 100 mg Q6H PRN PO PAIN LEVEL 6-10 Last administered on 08/12/18at 10:06; Admin Dose 100 MG; Start 07/27/18 at 17:00 Patiromer (Veltassa) 16.8 gm DAILY PO Last administered on 08/07/18at 08:52; Admin Dose 16.8 GM; Start 07/31/18 at 09:00 Guaifenesin/ Dextromethorphan (Robitussin Dm Liquid Cup) 10 ml Q4H PRN PO COUGH; Start 07/30/18 at 15:00 Heparin Sodium (Porcine) (Heparin (1000 Units/ml)) 4,000 unit AFTER DIALYSIS CATHETER Last administered on 08/08/18 14:36; Admin Dose 4,000 UNIT; Start 07/31/18 at 18:00 Albumin Human 50 ml @ 100 mls/hr WITH DIALYSIS PRN IV SBP < 90 DURING DIALYSIS Last administered on 08/01/18 22:17; Admin Dose 100 MLS/HR; Start 07/31/18 at 18:00 Sodium Chloride (NS) -To prime the dialy... DIRECTED FOR HD PRN IV HD; Start 07/31/18 at 18:00 Loratadine (Claritin) 10 mg DAILY PRN PO ALLERGIC REACTION Last administered on 08/07/18 12:48; Admin Dose 10 MG; Start 08/07/18 at 12:30 Hydralazine HCl (Apresoline) 10 mg Q6H PRN PO ELEVATED BLOOD PRESSURE Last administered on 08/08/18 04:45; Admin Dose 10 MG; Start 08/08/18 at 04:30 Hydralazine HCl (Apresoline) 25 mg TID PO Last administered on 08/12/18at 10:06; Admin Dose 25 MG; Start 08/08/18 at 13:00 Ciprofloxacin (Cipro) 500 mg DAILY@06 PO Last administered on 08/11/18 09:30; Admin Dose 500 MG; Start 08/09/18 at 09:00 Eye Lubricant (Artificial Tears Oph) 2 drop QID BOTH EYES Last administered on 08/11/18 21:59; Admin Dose 2 DROP; Start 08/09/18 at 11:00 Calcium Carbonate (Tums) 500 mg PRN PRN PO HEARTBURN Last administered on 08/10/18 17:07; Admin Dose 500 MG; Start 08/09/18 at 14:30 Results Result Diagram: 08/08/18 1415 08/08/18 1415 Results 24 hrs Laboratory Tests Test 08/11/18 17:48 08/11/18 21:49 08/12/18 02:22 08/12/18 09:46 Bedside Glucose 170 217 132 131 KOFI SWANN MD Aug 12, 2018 15:47
[2018-08-12 19:40] VITALS: BP 132/57; PULSE 78; RESP 18
[2018-08-13] MEDS: ACCU-CHEK XX SCH (02:00)
[2018-08-13 02:30] VITALS: BP 103/49; PULSE 93; RESP 18
[2018-08-13] MEDS: MELATONIN 3 MG TABLET PO PRN ×2 (02:58→21:58)
[2018-08-13] MEDS: traMADol 50 MG TAB PO PRN ×2 (02:58→21:59)
[2018-08-13] MEDS: CIPROFLOXACIN 500 MG TAB PO SCH ×2 (06:00→06:34)
[2018-08-13 07:33] VITALS: BP 152/62; PULSE 74; RESP 18
[2018-08-13] MEDS: INSULIN ASPART [NOVOLOG] 3 ML PEN SC SCH ×4 (07:50→22:23)
[2018-08-13] MEDS: ARTIFICIAL TEARS 15 ML OPH BOTH EYES SCH ×4 (09:00→21:59)
[2018-08-13] MEDS: PATIROMER CALCIUM SORBITEX 16.8 GM PKT PO SCH (09:00)
[2018-08-13] MEDS: FAMOTIDINE 20 MG TAB PO SCH ×2 (09:00→21:59)
[2018-08-13] MEDS: BALSAM PERU/CASTOR OIL 60 GM TUBE TOP SCH ×2 (09:00→22:23)
[2018-08-13] MEDS: ALLOPURINOL 100 MG TAB PO SCH (09:00)
[2018-08-13] MEDS: DICLOFENAC SODIUM 1% GEL 100 GM TUBE TP SCH ×4 (09:00→22:24)
[2018-08-13] MEDS: HEPARIN 5,000 UNIT/1 ML VIAL SC SCH ×2 (09:00→22:02)
[2018-08-13] MEDS ORDERED: HEPARIN 5,000 UNIT/0.5 ML VIAL ONE ×2 (09:01→21:54)
[2018-08-13 14:00] VITALS: BP 138/63; PULSE 88; RESP 18
--- NOTE | 2018-08-13 14:47 | PN ---
Date/Time of Note Date/Time of Note DATE: 08/13/18 TIME: 14:45 Assessment/Plan VTE Prophylaxis Risk score (from Ns)>0 risk: 7 SCD applied (from Ns): No SCD contraindicated: patient refusal Pharmacological prophylaxis: heparin Lines/Catheters IV Catheter Type (from Nrs): Permacath Urinary Cath still in place: No Assessment/Plan Hospital Course 1. ckd, hyperkalemia 2. c diff hx 3. Opiates dependency 4. Morbid obesity. 5. Diabetes. 6. Hypertension, 7. Gout, hx 8. Neuropathy. 9. History of congestive heart failure. 10. weakness 11. deconditioning 12. Non compliance, pt refused V[place], HD 13. Left shoulder chronic pain. Xray was reviewed from the last visit, it is arthrosis left acromioclavicular joint 14. constipation Assessment/Plan - cw with PT -She is refusing hemodialysis she states that she wants her therapy, per patient is not participating with the therapist - refusal of labs - cw Cipro -- pt refused cortisone injection per ortho -Patient intermittently refusing labs labs, refused again today -DC all narcotics gabapentin/sleeping pill as some episode of confusion - Wound care - US with thrombosed graft - Ortho consult however patient refused a cortisone shot - avoid narcotics as it would limit her ability to walk for PT as it happened la admission since pts goal is Physical therapy - low k diet -cw home hydralazine -tylnolol on as needed headache -Will have to arrange for HD center/snf Subjective 24 Hr Interval Summary Gastrointestinal: constipation (for a week) Exam/Review of Systems Vital Signs Vitals Vital Signs Date Temp Pulse Resp B/P (MAP) Pulse Ox O2 O2 Flow FiO2 Time Delivery Rate 08/13/18 98.4 74 18 152/62 99 07:33 (92) 08/12/18 Room Air 14:00 Intake and Output 08/12/18 08/12/18 08/13/18 1515:00 23:00 07:00 IntakeIntake Total 400 ml BalanceBalance 400 ml Exam right chest Permcath Constitutional: alert, oriented Respiratory: clear to auscultation Cardiovascular: regular rate and rhythm Gastrointestinal: soft Medications Medications Current Medications Acetaminophen (Tylenol Tab) 325 mg Q4H PRN PO MILD PAIN(1-3)OR ELEVATED TEMP; Start 07/20/18 at 23:00 Allopurinol (Zyloprim) 100 mg DAILY PO Last administered on 08/12/18 10:06; Admin Dose 100 MG; Start 07/21/18 at 09:00 IV Flush (NS 3 ml) 3 ml PER PROTOCOL IV ; Start 07/20/18 at 23:00 Ondansetron HCl (Zofran Inj) 4 mg Q6H PRN IV NAUSEA AND/OR VOMITING Last administered on 08/09/18 03:33; Admin Dose 4 MG; Start 07/20/18 at 23:00 Acetaminophen (Tylenol Tab) 650 mg Q6H PRN PO PAIN LEVEL 1-3 OR FEVER Last administered on 08/06/18 20:27; Admin Dose 650 MG; Start 07/20/18 at 23:00 Acetaminophen (Tylenol Supp) 650 mg Q6H PRN [place] PAIN LEVEL 1-3 OR FEVER; Start 07/20/18 at 23:00 Docusate Sodium (Colace) 100 mg Q12H PRN PO CONSTIPATION Last administered on 08/07/18 08:39; Admin Dose 100 MG; Start 07/20/18 at 23:00 Bisacodyl (Dulcolax) 5 mg DAILY PRN PO CONSTIPATION Last administered on 08/07/18 08:40; Admin Dose 5 MG; Start 07/20/18 at 23:00 Famotidine (Pepcid) 20 mg Q12 PO Last administered on 08/12/18 10:06; Admin Dose 20 MG; Start 07/21/18 at 09:00 Diagnostic Test (Pha) (Accu-Chek) 1 ea 02 XX Last administered on 08/12/18 02:28; Admin Dose 1 EA; Start 07/21/18 at 02:00 Insulin Aspart (Novolog Insulin Pen) NOVOLOG *MILD* ALGORITHM WITH MEALS BEDTIME SC Last administered on 08/11/18 21:52; Admin Dose 1 UNIT; Start 07/21/18 at 07:50 Ergocalciferol (Drisdol) 50,000 unit Lacy@0900 PO Last administered on 08/07/18 08:40; Admin Dose 50,000 UNIT; Start 07/24/18 at 09:00 Miscellaneous Information 1 ea NOTE XX ; Start 07/20/18 at 23:00 Glucose (Glutose) 15 gm Q15M PRN PO DECREASED GLUCOSE; Start 07/20/18 at 23:00 Glucose (Glutose) 22.5 gm Q15M PRN PO DECREASED GLUCOSE; Start 07/20/18 at 23:00 Dextrose (D50w Syringe) 25 ml Q15M PRN IV DECREASED GLUCOSE; Start 07/20/18 at 23:00 Dextrose (D50w Syringe) 50 ml Q15M PRN IV DECREASED GLUCOSE; Start 07/20/18 at 23:00 Glucagon (Glucagen) 1 mg Q15M PRN IM DECREASED GLUCOSE; Start 07/20/18 at 23:00 Glucose (Glutose) 15 gm Q15M PRN BUCCAL DECREASED GLUCOSE; Start 07/20/18 at 23:00 Melatonin (Melatonin) 3 mg HS PRN PO INSOMNIA Last administered on 08/13/18at 02:58; Admin Dose 3 MG; Start 07/20/18 at 23:00 Heparin Sodium (Porcine) 5,000 unit Q12 SC Last administered on 08/12/18at 10:05; Admin Dose 5,000 UNIT; Start 07/21/18 at 21:00 Diclofenac Sodium (Voltaren 1% Gel) 2 gm QID TP Last administered on 08/10/18 16:18; Admin Dose 2 GM; Start 07/22/18 at 13:00 Tramadol HCl (Ultram) 100 mg Q6H PRN PO PAIN LEVEL 6-10 Last administered on 08/13/18at 02:58; Admin Dose 100 MG; Start 07/27/18 at 17:00 Patiromer (Veltassa) 16.8 gm DAILY PO Last administered on 08/07/18at 08:52; Admin Dose 16.8 GM; Start 07/31/18 at 09:00 Guaifenesin/ Dextromethorphan (Robitussin Dm Liquid Cup) 10 ml Q4H PRN PO COUGH; Start 07/30/18 at 15:00 Heparin Sodium (Porcine) (Heparin (1000 Units/ml)) 4,000 unit AFTER DIALYSIS CATHETER Last administered on 08/08/18at 14:36; Admin Dose 4,000 UNIT; Start 07/31/18 at 18:00 Albumin Human 50 ml @ 100 mls/hr WITH DIALYSIS PRN IV SBP < 90 DURING DIALYSIS Last administered on 08/01/18at 22:17; Admin Dose 100 MLS/HR; Start 07/31/18 at 18:00 Sodium Chloride (NS) -To prime the dialy... DIRECTED FOR HD PRN IV HD; Start 07/31/18 at 18:00 Loratadine (Claritin) 10 mg DAILY PRN PO ALLERGIC REACTION Last administered on 08/07/18 12:48; Admin Dose 10 MG; Start 08/07/18 at 12:30 Hydralazine HCl (Apresoline) 10 mg Q6H PRN PO ELEVATED BLOOD PRESSURE Last administered on 08/08/18 04:45; Admin Dose 10 MG; Start 08/08/18 at 04:30 Hydralazine HCl (Apresoline) 25 mg TID PO Last administered on 08/12/18 10:06; Admin Dose 25 MG; Start 08/08/18 at 13:00 Ciprofloxacin (Cipro) 500 mg DAILY@06 PO Last administered on 08/13/18 06:34; Admin Dose 500 MG; Start 08/09/18 at 09:00 Eye Lubricant (Artificial Tears Oph) 2 drop QID BOTH EYES Last administered on 08/11/18 21:59; Admin Dose 2 DROP; Start 08/09/18 at 11:00 Calcium Carbonate (Tums) 500 mg PRN PRN PO HEARTBURN Last administered on 08/10/18 17:07; Admin Dose 500 MG; Start 08/09/18 at 14:30 Results Results 24 hrs Laboratory Tests Test 08/12/18 17:56 08/13/18 08:16 08/13/18 13:04 Bedside Glucose 112 144 158 WILLY MEDEIROS Aug 13, 2018 14:47
[2018-08-13] MEDS ORDERED: BISACODYL 10 MG SUPP PR PRN (15:00)
[2018-08-13 19:40] VITALS: BP 155/67; PULSE 97; RESP 18
[2018-08-14] MEDS: ACCU-CHEK XX SCH (02:00)
[2018-08-14 02:35] VITALS: BP 119/60; PULSE 68; RESP 16
[2018-08-14] MEDS: BISACODYL (EC) 5 MG TAB PO PRN (06:24)
[2018-08-14] MEDS: CIPROFLOXACIN 500 MG TAB PO SCH (06:24)
[2018-08-14] MEDS: INSULIN ASPART [NOVOLOG] 3 ML PEN SC SCH ×4 (07:50→22:19)
[2018-08-14 08:00] VITALS: BP 115/65; PULSE 61; RESP 18
[2018-08-14] MEDS ORDERED: HEPARIN 5,000 UNIT/0.5 ML VIAL ONE ×2 (08:04→20:54)
[2018-08-14] MEDS: DICLOFENAC SODIUM 1% GEL 100 GM TUBE TP SCH ×4 (09:00→21:00)
[2018-08-14] MEDS: PATIROMER CALCIUM SORBITEX 16.8 GM PKT PO SCH (09:00)
[2018-08-14] MEDS: BALSAM PERU/CASTOR OIL 60 GM TUBE TOP SCH ×2 (09:00→21:00)
[2018-08-14] MEDS: ARTIFICIAL TEARS 15 ML OPH BOTH EYES SCH ×4 (09:00→21:00)
[2018-08-14] MEDS: ALLOPURINOL 100 MG TAB PO SCH (10:19)
[2018-08-14] MEDS: HEPARIN 5,000 UNIT/1 ML VIAL SC SCH ×2 (10:25→22:22)
[2018-08-14] MEDS: ERGOCALCIFEROL 50,000 UNIT CAP PO SCH (10:26)
[2018-08-14] MEDS: FAMOTIDINE 20 MG TAB PO SCH ×2 (10:26→22:23)
[2018-08-14] MEDS: ONDANSETRON 4 MG INJ IV PRN (10:53)
[2018-08-14] MEDS: traMADol 50 MG TAB PO PRN (10:54)
[2018-08-14 14:00] VITALS: BP 121/88; PULSE 77; RESP 18
[2018-08-14] MEDS: DOCUSATE SODIUM 100 MG CAP PO PRN (15:10)
[2018-08-14] MEDS: ACETAMINOPHEN 325 MG TAB PO PRN (17:29)
--- NOTE | 2018-08-14 18:25 | PN ---
Date/Time of Note Date/Time of Note DATE: 08/14/18 TIME: 18:24 Assessment/Plan VTE Prophylaxis Risk score (from Ns)>0 risk: 5 SCD applied (from Nsg): Yes Pharmacological prophylaxis: other Lines/Catheters IV Catheter Type (from Nrsg): permacath Urinary Cath still in place: No Assessment/Plan Hospital Course 1. ckd 2. c diff hx 3. Chronic kidney disease, 4. Morbid obesity. 5. Diabetes. 6. Hypertension, 7. Gout.hx 8. Neuropathy. 9. History of congestive heart failure. 10 weakness 11 deconditioning 12 hyperkalemia on hd 13 non compliancew meds and hd plan ck labs hd renal diet non compliancew hd Subjective 24 Hr Interval Summary Cardiovascular: no complaints Gastrointestinal: no complaints Exam/Review of Systems Vital Signs Vitals Vital Signs Date Temp Pulse Resp B/P (MAP) Pulse Ox O2 O2 Flow FiO2 Time Delivery Rate 08/14/18 98.0 77 18 121/88 96 14:00 (99) 08/12/18 Room Air 14:00 Intake and Output 08/13/18 08/13/18 08/14/18 1515:00 23:00 07:00 IntakeIntake Total 920 ml 200 ml BalanceBalance 920 ml 200 ml Exam Respiratory: clear to auscultation Cardiovascular: regular rate and rhythm Gastrointestinal: soft Musculoskeletal: nl extremities to inspection Extremities: normal pulses Medications Medications Current Medications Acetaminophen (Tylenol Tab) 325 mg Q4H PRN PO MILD PAIN(1-3)OR ELEVATED TEMP Last administered on 08/14/18at 17:29; Admin Dose 325 MG; Start 07/20/18 at 23:00 Allopurinol (Zyloprim) 100 mg DAILY PO Last administered on 08/14/18at 10:19; Admin Dose 100 MG; Start 07/21/18 at 09:00 IV Flush (NS 3 ml) 3 ml PER PROTOCOL IV ; Start 07/20/18 at 23:00 Ondansetron HCl (Zofran Inj) 4 mg Q6H PRN IV NAUSEA AND/OR VOMITING Last administered on 08/14/18at 10:53; Admin Dose 4 MG; Start 07/20/18 at 23:00 Acetaminophen (Tylenol Tab) 650 mg Q6H PRN PO PAIN LEVEL 1-3 OR FEVER Last administered on 08/06/18at 20:27; Admin Dose 650 MG; Start 07/20/18 at 23:00 Acetaminophen (Tylenol Supp) 650 mg Q6H PRN [place] PAIN LEVEL 1-3 OR FEVER; Start 07/20/18 at 23:00 Docusate Sodium (Colace) 100 mg Q12H PRN PO CONSTIPATION Last administered on 08/14/18 15:10; Admin Dose 100 MG; Start 07/20/18 at 23:00 Bisacodyl (Dulcolax) 5 mg DAILY PRN PO CONSTIPATION Last administered on 08/14/18 06:24; Admin Dose 5 MG; Start 07/20/18 at 23:00 Famotidine (Pepcid) 20 mg Q12 PO Last administered on 08/14/18 10:26; Admin Dose 20 MG; Start 07/21/18 at 09:00 Diagnostic Test (Pha) (Accu-Chek) 1 ea 02 XX Last administered on 08/12/18 02:28; Admin Dose 1 EA; Start 07/21/18 at 02:00 Insulin Aspart (Novolog Insulin Pen) NOVOLOG *MILD* ALGORITHM WITH MEALS BEDTIME SC Last administered on 08/11/18 21:52; Admin Dose 1 UNIT; Start 07/21/18 at 07:50 Ergocalciferol (Drisdol) 50,000 unit Lacy@0900 PO Last administered on 08/14/18 10:26; Admin Dose 50,000 UNIT; Start 07/24/18 at 09:00 Miscellaneous Information 1 ea NOTE XX ; Start 07/20/18 at 23:00 Glucose (Glutose) 15 gm Q15M PRN PO DECREASED GLUCOSE; Start 07/20/18 at 23:00 Glucose (Glutose) 22.5 gm Q15M PRN PO DECREASED GLUCOSE; Start 07/20/18 at 23:00 Dextrose (D50w Syringe) 25 ml Q15M PRN IV DECREASED GLUCOSE; Start 07/20/18 at 23:00 Dextrose (D50w Syringe) 50 ml Q15M PRN IV DECREASED GLUCOSE; Start 07/20/18 at 23:00 Glucagon (Glucagen) 1 mg Q15M PRN IM DECREASED GLUCOSE; Start 07/20/18 at 23:00 Glucose (Glutose) 15 gm Q15M PRN BUCCAL DECREASED GLUCOSE; Start 07/20/18 at 23:00 Melatonin (Melatonin) 3 mg HS PRN PO INSOMNIA Last administered on 08/13/18 21:58; Admin Dose 3 MG; Start 07/20/18 at 23:00 Heparin Sodium (Porcine) 5,000 unit Q12 SC Last administered on 08/14/18 10:25; Admin Dose 5,000 UNIT; Start 07/21/18 at 21:00 Diclofenac Sodium (Voltaren 1% Gel) 2 gm QID TP Last administered on 08/10/18 16:18; Admin Dose 2 GM; Start 07/22/18 at 13:00 Tramadol HCl (Ultram) 100 mg Q6H PRN PO PAIN LEVEL 6-10 Last administered on 08/14/18 10:54; Admin Dose 100 MG; Start 07/27/18 at 17:00 Patiromer (Veltassa) 16.8 gm DAILY PO Last administered on 08/07/18 08:52; Admin Dose 16.8 GM; Start 07/31/18 at 09:00 Guaifenesin/ Dextromethorphan (Robitussin Dm Liquid Cup) 10 ml Q4H PRN PO COUGH; Start 07/30/18 at 15:00 Heparin Sodium (Porcine) (Heparin (1000 Units/ml)) 4,000 unit AFTER DIALYSIS CATHETER Last administered on 08/08/18 14:36; Admin Dose 4,000 UNIT; Start 07/31/18 at 18:00 Albumin Human 50 ml @ 100 mls/hr WITH DIALYSIS PRN IV SBP < 90 DURING DIALYSIS Last administered on 08/01/18 22:17; Admin Dose 100 MLS/HR; Start 07/31/18 at 18:00 Sodium Chloride (NS) -To prime the dialy... DIRECTED FOR HD PRN IV HD; Start 07/31/18 at 18:00 Loratadine (Claritin) 10 mg DAILY PRN PO ALLERGIC REACTION Last administered on 08/07/18 12:48; Admin Dose 10 MG; Start 08/07/18 at 12:30 Hydralazine HCl (Apresoline) 10 mg Q6H PRN PO ELEVATED BLOOD PRESSURE Last administered on 08/08/18 04:45; Admin Dose 10 MG; Start 08/08/18 at 04:30 Hydralazine HCl (Apresoline) 25 mg TID PO Last administered on 08/12/18at 10:06; Admin Dose 25 MG; Start 08/08/18 at 13:00 Ciprofloxacin (Cipro) 500 mg DAILY@06 PO Last administered on 08/14/18at 06:24; Admin Dose 500 MG; Start 08/09/18 at 09:00 Eye Lubricant (Artificial Tears Oph) 2 drop QID BOTH EYES Last administered on 08/13/18at 21:59; Admin Dose 2 DROP; Start 08/09/18 at 11:00 Calcium Carbonate (Tums) 500 mg PRN PRN PO HEARTBURN Last administered on 08/10/18at 17:07; Admin Dose 500 MG; Start 08/09/18 at 14:30 Bisacodyl (Dulcolax Supp) 10 mg DAILY PRN [place] CONSTIPATION; Start 08/13/18 at 15:00 Results Results 24 hrs Laboratory Tests Test 08/13/18 22:16 08/14/18 10:15 08/14/18 12:59 08/14/18 17:31 Bedside Glucose 213 148 152 176 BRIAN ROBLEDO MD Aug 14, 2018 18:25
[2018-08-14 20:00] VITALS: BP 182/79; PULSE 88; RESP 18
[2018-08-14 20:33] VITALS: BP 150/72; PULSE 91; RESP 20
[2018-08-15] MEDS: ACCU-CHEK XX SCH (02:00)
[2018-08-15 02:51] VITALS: BP 122/75; PULSE 76; RESP 19
[2018-08-15] MEDS: traMADol 50 MG TAB PO PRN ×2 (04:04→18:33)
[2018-08-15] MEDS: CIPROFLOXACIN 500 MG TAB PO SCH (04:07)
[2018-08-15 08:51] VITALS: BP 146/86; PULSE 89; RESP 20
[2018-08-15] MEDS: INSULIN ASPART [NOVOLOG] 3 ML PEN SC SCH ×4 (08:55→22:08)
[2018-08-15] MEDS: DICLOFENAC SODIUM 1% GEL 100 GM TUBE TP SCH ×4 (09:00→21:00)
[2018-08-15] MEDS: PATIROMER CALCIUM SORBITEX 16.8 GM PKT PO SCH (09:00)
[2018-08-15] MEDS: BALSAM PERU/CASTOR OIL 60 GM TUBE TOP SCH ×2 (09:00→21:00)
[2018-08-15] MEDS ORDERED: HEPARIN 5,000 UNIT/0.5 ML VIAL ONE ×2 (09:03→20:10)
[2018-08-15] MEDS: ONDANSETRON 4 MG INJ IV PRN (09:05)
[2018-08-15] MEDS: FAMOTIDINE 20 MG TAB PO SCH ×2 (09:08→21:51)
[2018-08-15] MEDS: ALLOPURINOL 100 MG TAB PO SCH (09:08)
[2018-08-15] MEDS: HEPARIN 5,000 UNIT/1 ML VIAL SC SCH ×2 (09:10→22:07)
[2018-08-15] MEDS: ARTIFICIAL TEARS 15 ML OPH BOTH EYES SCH ×4 (09:10→21:00)
--- NOTE | 2018-08-15 11:38 | PN ---
Date/Time of Note Date/Time of Note DATE: 08/15/18 TIME: 11:36 Assessment/Plan VTE Prophylaxis Risk score (from Nsg)>0 risk: 7 SCD applied (from Ns): Yes SCD contraindicated: other Pharmacological prophylaxis: heparin Lines/Catheters IV Catheter Type (from Nrsg): Permacath Urinary Cath still in place: No Assessment/Plan Hospital Course 58 y/o with 1. . ckd iii-iv now with the complications of hyperkalemia, patient has been refusing Kayexalate Dennis has also been refusing dialysis, patient was explained the risks and consequences and patient completely understands the risks and consequences, now agreed 2. c diff hx 3. Chronic kidney disease, 4. Morbid obesity. 5. Diabetes. 6. Hypertension, 7. Gout.hx 8. Neuropathy. 9. History of congestive heart failure. 10 weakness 11 deconditioning 13 Left shoulde pain, TTP ? Frozen shoulder , shoulder impingement 14 s/p Fall ? AMS confusion likley due to UTI 15 uti klebsiella and enterococcus Plan - cw with PT -She is refusing hemodialysis she states that she wants her therapy, - refusal of labs before, might agree today - Pt will need HD spoke to patient as last HD was last week, pt aware of cons equences - cw Cipro -- pt refused cortisone injecion per ortho -Patient intermittently refusing labs labs, refused again today -DC all narcotics gabapentin/sleeping pill as some episode of confusion - Wound care - US with thrombosed graft - Ortho consult however patient refused a cortisone shot - avoid narcotics as it would limit her ability to walk for PT as it happened last admission since pts goal is Physical therapy - low k diet -cw home hydralazine -tyenolol on as needed headache Will have to arrnage for HD center/snif Subjective 24 Hr Interval Summary Free Text/Dictation pt said thats 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 techinincain willl come again at 2 for labs as it was hard stick and could not draw blood PT today Exam/Review of Systems Vital Signs Vitals Vital Signs Date Temp Pulse Resp B/P (MAP) Pulse Ox O2 O2 Flow FiO2 Time Delivery Rate 08/15/18 98.0 89 20 146/86 98 Room Air 08:51 (106) Intake and Output 08/14/18 08/14/18 08/15/18 1515:00 23:00 07:00 IntakeIntake Total 400 ml BalanceBalance 400 ml Exam Neck: supple Respiratory: clear to auscultation Cardiovascular: regular rate and rhythm Gastrointestinal: soft Extremities: edema (+) 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, nl mental status, nl speech, nl strength rt permacath Medications Medications Current Medications Acetaminophen (Tylenol Tab) 325 mg Q4H PRN PO MILD PAIN(1-3)OR ELEVATED TEMP Last administered on 08/14/18 17:29; Admin Dose 325 MG; Start 07/20/18 at 2 3:00 Allopurinol (Zyloprim) 100 mg DAILY PO Last administered on 08/15/18 09:08; Admin Dose 100 MG; Start 07/21/18 at 09:00 IV Flush (NS 3 ml) 3 ml PER PROTOCOL IV ; Start 07/20/18 at 23:00 Ondansetron HCl (Zofran Inj) 4 mg Q6H PRN IV NAUSEA AND/OR VOMITING Last administered on 08/15/18 09:05; Admin Dose 4 MG; Start 07/20/18 at 23:00 Acetaminophen (Tylenol Tab) 650 mg Q6H PRN PO PAIN LEVEL 1-3 OR FEVER Last administered on 08/06/18 20:27; Admin Dose 650 MG; Start 07/20/18 at 23:00 Acetaminophen (Tylenol Supp) 650 mg Q6H PRN [place] PAIN LEVEL 1-3 OR FEVER; Start 07/20/18 at 23:00 Docusate Sodium (Colace) 100 mg Q12H PRN PO CONSTIPATION Last administered on 08/14/18at 15:10; Admin Dose 100 MG; Start 07/20/18 at 23:00 Bisacodyl (Dulcolax) 5 mg DAILY PRN PO CONSTIPATION Last administered on 08/14/18 06:24; Admin Dose 5 MG; Start 07/20/18 at 23:00 Famotidine (Pepcid) 20 mg Q12 PO Last administered on 08/15/18 09:08; Admin Dose 20 MG; Start 07/21/18 at 09:00 Diagnostic Test (Pha) (Accu-Chek) 1 ea 02 XX Last administered on 08/12/18at 02:28; Admin Dose 1 EA; Start 07/21/18 at 02:00 Insulin Aspart (Novolog Insulin Pen) NOVOLOG *MILD* ALGORITHM WITH MEALS BEDTIME SC Last administered on 08/14/18 22:19; Admin Dose 1 UNIT; Start 07/21/18 at 07:50 Ergocalciferol (Drisdol) 50,000 unit Lacy@0900 PO Last administered on 08/14/18at 10:26; Admin Dose 50,000 UNIT; Start 07/24/18 at 09:00 Miscellaneous Information 1 ea NOTE XX ; Start 07/20/18 at 23:00 Glucose (Glutose) 15 gm Q15M PRN PO DECREASED GLUCOSE; Start 07/20/18 at 23:00 Glucose (Glutose) 22.5 gm Q15M PRN PO DECREASED GLUCOSE; Start 07/20/18 at 23:00 Dextrose (D50w Syringe) 25 ml Q15M PRN IV DECREASED GLUCOSE; Start 07/20/18 at 23:00 Dextrose (D50w Syringe) 50 ml Q15M PRN IV DECREASED GLUCOSE; Start 07/20/18 at 23:00 Glucagon (Glucagen) 1 mg Q15M PRN IM DECREASED GLUCOSE; Start 07/20/18 at 23:00 Glucose (Glutose) 15 gm Q15M PRN BUCCAL DECREASED GLUCOSE; Start 07/20/18 at 23:00 Melatonin (Melatonin) 3 mg HS PRN PO INSOMNIA Last administered on 08/13/18at 21:58; Admin Dose 3 MG; Start 07/20/18 at 23:00 Heparin Sodium (Porcine) 5,000 unit Q12 SC Last administered on 08/15/18at 09:10; Admin Dose 5,000 UNIT; Start 07/21/18 at 21:00 Diclofenac Sodium (Voltaren 1% Gel) 2 gm QID TP Last administered on 08/10/18at 16:18; Admin Dose 2 GM; Start 07/22/18 at 13:00 Tramadol HCl (Ultram) 100 mg Q6H PRN PO PAIN LEVEL 6-10 Last administered on 08/15/18at 04:04; Admin Dose 100 MG; Start 07/27/18 at 17:00 Patiromer (Veltassa) 16.8 gm DAILY PO Last administered on 08/07/18at 08:52; Admin Dose 16.8 GM; Start 07/31/18 at 09:00 Guaifenesin/ Dextromethorphan (Robitussin Dm Liquid Cup) 10 ml Q4H PRN PO COUGH; Start 07/30/18 at 15:00 Heparin Sodium (Porcine) (Heparin (1000 Units/ml)) 4,000 unit AFTER DIALYSIS CATHETER Last administered on 08/08/18at 14:36; Admin Dose 4,000 UNIT; Start 07/31/18 at 18:00 Albumin Human 50 ml @ 100 mls/hr WITH DIALYSIS PRN IV SBP < 90 DURING DIALYSIS Last administered on 08/01/18 22:17; Admin Dose 100 MLS/HR; Start 07/31/18 at 18:00 Sodium Chloride (NS) -To prime the dialy... DIRECTED FOR HD PRN IV HD; Start 07/31/18 at 18:00 Loratadine (Claritin) 10 mg DAILY PRN PO ALLERGIC REACTION Last administered on 08/07/18 12:48; Admin Dose 10 MG; Start 08/07/18 at 12:30 Hydralazine HCl (Apresoline) 10 mg Q6H PRN PO ELEVATED BLOOD PRESSURE Last administered on 08/08/18at 04:45; Admin Dose 10 MG; Start 08/08/18 at 04:30 Hydralazine HCl (Apresoline) 25 mg TID PO Last administered on 08/15/18 09:09; Admin Dose 25 MG; Start 08/08/18 at 13:00 Ciprofloxacin (Cipro) 500 mg DAILY@06 PO Last administered on 08/15/18 04:07; Admin Dose 500 MG; Start 08/09/18 at 09:00 Eye Lubricant (Artificial Tears Oph) 2 drop QID BOTH EYES Last administered on 08/15/18 09:10; Admin Dose 2 DROP; Start 08/09/18 at 11:00 Calcium Carbonate (Tums) 500 mg PRN PRN PO HEARTBURN Last administered on 08/10/18 17:07; Admin Dose 500 MG; Start 08/09/18 at 14:30 Bisacodyl (Dulcolax Supp) 10 mg DAILY PRN [place] CONSTIPATION; Start 08/13/18 at 15:00 Results Results 24 hrs Laboratory Tests Test 08/14/18 12:59 08/14/18 17:31 08/14/18 22:13 08/15/18 08:57 Bedside Glucose 152 176 189 107 KOFI SWANN MD Aug 15, 2018 11:38
[2018-08-15 16:10] VITALS: BP 125/63; PULSE 75; RESP 20
[2018-08-15 21:27] VITALS: BP 185/107; PULSE 74; RESP 18
[2018-08-15] MEDS: MELATONIN 3 MG TABLET PO PRN (22:18)
[2018-08-16] MEDS: ACCU-CHEK XX SCH (02:00)
[2018-08-16 02:14] VITALS: BP 126/57; PULSE 88; RESP 18
[2018-08-16] MEDS: CIPROFLOXACIN 500 MG TAB PO SCH (07:30)
[2018-08-16] MEDS: ARTIFICIAL TEARS 15 ML OPH BOTH EYES SCH ×4 (09:14→21:00)
[2018-08-16] MEDS: BALSAM PERU/CASTOR OIL 60 GM TUBE TOP SCH ×2 (09:14→21:00)
[2018-08-16] MEDS: FAMOTIDINE 20 MG TAB PO SCH ×2 (09:14→21:00)
[2018-08-16] MEDS: PATIROMER CALCIUM SORBITEX 16.8 GM PKT PO SCH (09:14)
[2018-08-16] MEDS: HEPARIN 5,000 UNIT/1 ML VIAL SC SCH ×2 (09:14→21:00)
[2018-08-16] MEDS: ALLOPURINOL 100 MG TAB PO SCH (09:14)
[2018-08-16] MEDS: DICLOFENAC SODIUM 1% GEL 100 GM TUBE TP SCH ×4 (09:14→21:00)
[2018-08-16] MEDS: INSULIN ASPART [NOVOLOG] 3 ML PEN SC SCH ×4 (09:14→21:00)
[2018-08-16] MEDS: traMADol 50 MG TAB PO PRN (13:02)
[2018-08-16 13:05] VITALS: BP 151/65; PULSE 80; RESP 18
--- NOTE | 2018-08-16 13:30 | PN ---
Date/Time of Note Date/Time of Note DATE: 08/16/18 TIME: 13:30 Assessment/Plan VTE Prophylaxis Risk score (from Nsg)>0 risk: 4 SCD applied (from Nsg): Yes Pharmacological prophylaxis: other Lines/Catheters IV Catheter Type (from Nrsg): perma cath Urinary Cath still in place: No Assessment/Plan Hospital Course 58 y/o with 1. . ckd iii-iv now with the complications of hyperkalemia, patient has been refusing Kayexalate Dennis has also been refusing dialysis, patient was explained the risks and consequences and patient completely understands the risks and consequences, now agreed 2. c diff hx 3. Chronic kidney disease, 4. Morbid obesity. 5. Diabetes. 6. Hypertension, 7. Gout.hx 8. Neuropathy. 9. History of congestive heart failure. 10 weakness 11 deconditioning 13 Left shoulde pain, TTP ? Frozen shoulder , shoulder impingement 14 s/p Fall ? AMS confusion ángelaley due to UTI 15 uti klebsiella and enterococcus Plan - cw with PT -She is refusing hemodialysis she states that she wants her therapy, WILL GET stat labs today as yest labs were imcomplete as pt refused - Pt will need HD spoke to patient as last HD was last week, pt aware of consequences - cw Cipro -- pt refused cortisone injecion per ortho -Patient intermittently refusing labs labs, refused again today -DC all narcotics gabapentin/sleeping pill as some episode of confusion - Wound care - US with thrombosed graft - Ortho consult however patient refused a cortisone shot - avoid narcotics as it would limit her ability to walk for PT as it happened last admission since pts goal is Physical therapy - low k diet -cw home hydralazine -tyenolol on as needed headache Will have to arrnage for HD center/home health Subjective 24 Hr Interval Summary Free Text/Dictation Pt wants PT and does not want HD Exam/Review of Systems Vital Signs Vitals Vital Signs Date Temp Pulse Resp B/P (MAP) Pulse Ox O2 O2 Flow FiO2 Time Delivery Rate 08/16/18 97.8 80 18 151/65 94 Room Air 13:05 (93) Intake and Output 08/15/18 08/15/18 08/16/18 1515:00 23:00 07:00 IntakeIntake Total 200 ml BalanceBalance 200 ml Exam Neck: supple Respiratory: clear to auscultation Cardiovascular: regular rate and rhythm Gastrointestinal: soft Extremities: edema (+) 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, nl mental status, nl speech, nl strength rt permacath Medications Medications Current Medications Acetaminophen (Tylenol Tab) 325 mg Q4H PRN PO MILD PAIN(1-3)OR ELEVATED TEMP Last administered on 08/14/18 17:29; Admin Dose 325 MG; Start 07/20/18 at 23:00 Allopurinol (Zyloprim) 100 mg DAILY PO Last administered on 08/15/18 09:08; Admin Dose 100 MG; Start 07/21/18 at 09:00 IV Flush (NS 3 ml) 3 ml PER PROTOCOL IV ; Start 07/20/18 at 23:00 Ondansetron HCl (Zofran Inj) 4 mg Q6H PRN IV NAUSEA AND/OR VOMITING Last administered on 08/15/18 09:05; Admin Dose 4 MG; Start 07/20/18 at 23:00 Acetaminophen (Tylenol Tab) 650 mg Q6H PRN PO PAIN LEVEL 1-3 OR FEVER Last administered on 08/06/18 20:27; Admin Dose 650 MG; Start 07/20/18 at 23:00 Acetaminophen (Tylenol Supp) [address] PAIN LEVEL 1-3 OR FEVER; Start 07/20/18 at 23:00 Docusate Sodium (Colace) 100 mg Q12H PRN PO CONSTIPATION Last administered on 08/14/18 15:10; Admin Dose 100 MG; Start 07/20/18 at 23:00 Bisacodyl (Dulcolax) 5 mg DAILY PRN PO CONSTIPATION Last administered on 08/14/18 06:24; Admin Dose 5 MG; Start 07/20/18 at 23:00 Famotidine (Pepcid) 20 mg Q12 PO Last administered on 08/15/18 21:51; Admin Dose 20 MG; Start 07/21/18 at 09:00 Diagnostic Test (Pha) (Accu-Chek) 1 ea 02 XX Last administered on 08/12/18 02:28; Admin Dose 1 EA; Start 07/21/18 at 02:00 Insulin Aspart (Novolog Insulin Pen) NOVOLOG *MILD* ALGORITHM WITH MEALS BEDTIME SC Last administered on 08/15/18at 22:08; Admin Dose 1 UNIT; Start 07/21/18 at 07:50 Ergocalciferol (Drisdol) 50,000 unit Lacy@0900 PO Last administered on 08/14/18at 10:26; Admin Dose 50,000 UNIT; Start 07/24/18 at 09:00 Miscellaneous Information 1 ea NOTE XX ; Start 07/20/18 at 23:00 Glucose (Glutose) 15 gm Q15M PRN PO DECREASED GLUCOSE; Start 07/20/18 at 23:00 Glucose (Glutose) 22.5 gm Q15M PRN PO DECREASED GLUCOSE; Start 07/20/18 at 23:00 Dextrose (D50w Syringe) 25 ml Q15M PRN IV DECREASED GLUCOSE; Start 07/20/18 at 23:00 Dextrose (D50w Syringe) 50 ml Q15M PRN IV DECREASED GLUCOSE; Start 07/20/18 at 23:00 Glucagon (Glucagen) 1 mg Q15M PRN IM DECREASED GLUCOSE; Start 07/20/18 at 23:00 Glucose (Glutose) 15 gm Q15M PRN BUCCAL DECREASED GLUCOSE; Start 07/20/18 at 23:00 Melatonin (Melatonin) 3 mg HS PRN PO INSOMNIA Last administered on 08/15/18at 22:18; Admin Dose 3 MG; Start 07/20/18 at 23:00 Heparin Sodium (Porcine) 5,000 unit Q12 SC Last administered on 08/15/18at 22:07; Admin Dose 5,000 UNIT; Start 07/21/18 at 21:00 Diclofenac Sodium (Voltaren 1% Gel) 2 gm QID TP Last administered on 08/10/18at 16:18; Admin Dose 2 GM; Start 07/22/18 at 13:00 Tramadol HCl (Ultram) 100 mg Q6H PRN PO PAIN LEVEL 6-10 Last administered on 08/16/18at 13:02; Admin Dose 100 MG; Start 07/27/18 at 17:00 Patiromer (Veltassa) 16.8 gm DAILY PO Last administered on 08/07/18at 08:52; Admin Dose 16.8 GM; Start 07/31/18 at 09:00 Guaifenesin/ Dextromethorphan (Robitussin Dm Liquid Cup) 10 ml Q4H PRN PO COUGH; Start 07/30/18 at 15:00 Heparin Sodium (Porcine) (Heparin (1000 Units/ml)) 4,000 unit AFTER DIALYSIS CATHETER Last administered on 08/08/18at 14:36; Admin Dose 4,000 UNIT; Start 07/31/18 at 18:00 Albumin Human 50 ml @ 100 mls/hr WITH DIALYSIS PRN IV SBP < 90 DURING DIALYSIS Last administered on 08/01/18at 22:17; Admin Dose 100 MLS/HR; Start 07/31/18 at 18:00 Sodium Chloride (NS) -To prime the dialy... DIRECTED FOR HD PRN IV HD; Start 07/31/18 at 18:00 Loratadine (Claritin) 10 mg DAILY PRN PO ALLERGIC REACTION Last administered on 08/07/18at 12:48; Admin Dose 10 MG; Start 08/07/18 at 12:30 Hydralazine HCl (Apresoline) 10 mg Q6H PRN PO ELEVATED BLOOD PRESSURE Last administered on 08/08/18at 04:45; Admin Dose 10 MG; Start 08/08/18 at 04:30 Hydralazine HCl (Apresoline) 25 mg TID PO Last administered on 08/16/18at 13:25; Admin Dose 25 MG; Start 08/08/18 at 13:00 Ciprofloxacin (Cipro) 500 mg DAILY@06 PO Last administered on 08/15/18at 04:07; Admin Dose 500 MG; Start 08/09/18 at 09:00 Eye Lubricant (Artificial Tears Oph) 2 drop QID BOTH EYES Last administered on 08/15/18at 09:10; Admin Dose 2 DROP; Start 08/09/18 at 11:00 Calcium Carbonate (Tums) 500 mg PRN PRN PO HEARTBURN Last administered on 08/10/18at 17:07; Admin Dose 500 MG; Start 08/09/18 at 14:30 Bisacodyl (Dulcolax Supp) [address] CONSTIPATION; Start 08/13/18 at 15:00 Results Result Diagram: 08/16/18 1207 08/16/18 1207 Results 24 hrs Laboratory Tests Test 08/15/18 17:45 08/15/18 21:55 08/16/18 09:14 08/16/18 12:07 Bedside Glucose 159 182 125 White Blood 11.0 H Count Red Blood Count 4.47 Hemoglobin 11.5 L Hematocrit 39.1 Mean Corpuscular 87.5 Volume Mean Corpuscular 25.7 L Hemoglobin Mean Corpuscular 29.4 L Hemoglobin Elsy nt Red Cell 16.8 H Distribution Width Platelet Count 363 Mean Platelet 9.6 Volume Immature 0.600 H Granulocytes % Neutrophils % 63.7 Lymphocytes % 24.6 Monocytes % 6.9 Eosinophils % 3.5 Basophils % 0.7 Nucleated Red 0.0 Blood Cells % Immature 0.070 H Granulocytes # Neutrophils # 7.0 Lymphocytes # 2.7 Monocytes # 0.8 Eosinophils # 0.4 Basophils # 0.1 Nucleated Red 0.0 Blood Cells # Sodium Level 140 Potassium Level 6.0 H Chloride Level 109 Carbon Dioxide 27 Level Anion Gap 4 L Blood Urea 45 H Nitrogen Creatinine 3.38 H Est Glomerular 14 L Filtrat Rate mL/min Glucose Level 141 Calcium Level 9.0 Phosphorus Level 4.5 Magnesium Level 1.9 Test 08/16/18 12:45 Bedside Glucose 126 KOFI SWANN MD Aug 16, 2018 13:30
[2018-08-16 19:37] VITALS: BP 129/65; PULSE 82; RESP 16
[2018-08-16] MEDS ORDERED: HEPARIN 5,000 UNIT/0.5 ML VIAL ONE (20:44)
[2018-08-17] VITALS (18 sets, daily range): BP systolic 104–173; BP diastolic 60–106; PULSE 78–87; RESP 16–20
[2018-08-17] MEDS: MELATONIN 3 MG TABLET PO PRN ×2 (00:46→22:27)
[2018-08-17] MEDS: traMADol 50 MG TAB PO PRN ×2 (00:46→22:27)
[2018-08-17] MEDS: ACCU-CHEK XX SCH (02:00)
[2018-08-17] MEDS: CIPROFLOXACIN 500 MG TAB PO SCH ×2 (05:47→05:51)
[2018-08-17] MEDS: INSULIN ASPART [NOVOLOG] 3 ML PEN SC SCH ×4 (07:50→21:00)
[2018-08-17] MEDS: PATIROMER CALCIUM SORBITEX 16.8 GM PKT PO SCH (09:00)
[2018-08-17] MEDS: BALSAM PERU/CASTOR OIL 60 GM TUBE TOP SCH ×2 (09:00→21:00)
[2018-08-17] MEDS ORDERED: HEPARIN 5,000 UNIT/0.5 ML VIAL ONE ×2 (09:22→21:53)
[2018-08-17] MEDS: ARTIFICIAL TEARS 15 ML OPH BOTH EYES SCH ×4 (09:28→21:00)
[2018-08-17] MEDS: DICLOFENAC SODIUM 1% GEL 100 GM TUBE TP SCH ×4 (09:28→22:34)
[2018-08-17] MEDS: ALLOPURINOL 100 MG TAB PO SCH (09:30)
[2018-08-17] MEDS: FAMOTIDINE 20 MG TAB PO SCH ×2 (09:30→22:27)
[2018-08-17] MEDS: HEPARIN 5,000 UNIT/1 ML VIAL SC SCH ×2 (09:33→22:29)
--- NOTE | 2018-08-17 12:52 | PN ---
Date/Time of Note Date/Time of Note DATE: 08/17/18 TIME: 12:51 Assessment/Plan VTE Prophylaxis Risk score (from Nsg)>0 risk: 5 SCD applied (from Nsg): No SCD contraindicated: low risk/ambulating Pharmacological prophylaxis: heparin Lines/Catheters IV Catheter Type (from Nrsg): permacath Urinary Cath still in place: No Assessment/Plan Hospital Course 58 y/o with 1. . ckd iii-iv now with the complications of hyperkalemia, patient has been refusing Kayexalate Veltassa has also been refusing dialysis, patient was explained the risks and consequences and patient completely understands the risks and consequences, now agreed 2. c diff hx 3. Chronic kidney disease, 4. Morbid obesity. 5. Diabetes. 6. Hypertension, 7. Gout.hx 8. Neuropathy. 9. History of congestive heart failure. 10 weakness 11 deconditioning 13 Left shoulde pain, TTP ? Frozen shoulder , shoulder impingement 14 s/p Fall ? AMS confusion [facility] due to UTI 15 uti klebsiella and enterococcus Plan - cw with PT -She is refusing hemodialysis she states that she wants her therapy, WILL GET stat labs today as yest labs were imcomplete as pt refused - Pt will need HD spoke to patient as last HD was last week, pt aware of consequences - cw Cipro -- pt refused cortisone injecion per ortho -Patient intermittently refusing labs labs, refused again today -DC all narcotics gabapentin/sleeping pill as some episode of confusion - Wound care - US with thrombosed graft - Ortho consult however patient refused a cortisone shot - avoid narcotics as it would limit her ability to walk for PT as it happened last admission since pts goal is Physical therapy - low k diet -cw home hydralazine -tyenolol on as needed headache Will have to arrnage for HD center/home health Exam/Review of Systems Vital Signs Vitals Vital Signs Date Temp Pulse Resp B/P (MAP) Pulse Ox O2 O2 Flow FiO2 Time Delivery Rate 08/17/18 86 12:45 08/17/18 18 119/65 Room Air 12:37 (83) 08/17/18 98 11:00 08/17/18 97.8 01:26 Intake and Output 08/16/18 08/16/18 08/17/18 1515:00 23:00 07:00 IntakeIntake Total 240 ml BalanceBalance 240 ml Medications Medications Current Medications Acetaminophen (Tylenol Tab) 325 mg Q4H PRN PO MILD PAIN(1-3)OR ELEVATED TEMP Last administered on 08/14/18 17:29; Admin Dose 325 MG; Start 07/20/18 at 23:00 Allopurinol (Zyloprim) 100 mg DAILY PO Last administered on 08/17/18 09:30; Admin Dose 100 MG; Start 07/21/18 at 09:00 IV Flush (NS 3 ml) 3 ml PER PROTOCOL IV ; Start 07/20/18 at 23:00 Ondansetron HCl (Zofran Inj) 4 mg Q6H PRN IV NAUSEA AND/OR VOMITING Last administered on 08/15/18 09:05; Admin Dose 4 MG; Start 07/20/18 at 23:00 Acetaminophen (Tylenol Tab) 650 mg Q6H PRN PO PAIN LEVEL 1-3 OR FEVER Last administered on 08/06/18 20:27; Admin Dose 650 MG; Start 07/20/18 at 23:00 Acetaminophen (Tylenol Supp) 650 mg Q6H PRN [place] PAIN LEVEL 1-3 OR FEVER; Start 07/20/18 at 23:00 Docusate Sodium (Colace) 100 mg Q12H PRN PO CONSTIPATION Last administered on 08/14/18 15:10; Admin Dose 100 MG; Start 07/20/18 at 23:00 Bisacodyl (Dulcolax) 5 mg DAILY PRN PO CONSTIPATION Last administered on 08/14/18 06:24; Admin Dose 5 MG; Start 07/20/18 at 23:00 Famotidine (Pepcid) 20 mg Q12 PO Last administered on 08/17/18 09:30; Admin Dose 20 MG; Start 07/21/18 at 09:00 Diagnostic Test (Pha) (Accu-Chek) 1 ea 02 XX Last administered on 08/12/18 02:28; Admin Dose 1 EA; Start 07/21/18 at 02:00 Insulin Aspart (Novolog Insulin Pen) NOVOLOG *MILD* ALGORITHM WITH MEALS BEDTIME SC Last administered on 08/15/18 22:08; Admin Dose 1 UNIT; Start 07/21/18 at 07:50 Ergocalciferol (Drisdol) 50,000 unit Lacy@0900 PO Last administered on 08/14/18at 10:26; Admin Dose 50,000 UNIT; Start 07/24/18 at 09:00 Miscellaneous Information 1 ea NOTE XX ; Start 07/20/18 at 23:00 Glucose (Glutose) 15 gm Q15M PRN PO DECREASED GLUCOSE; Start 07/20/18 at 23:00 Glucose (Glutose) 22.5 gm Q15M PRN PO DECREASED GLUCOSE; Start 07/20/18 at 23:00 Dextrose (D50w Syringe) 25 ml Q15M PRN IV DECREASED GLUCOSE; Start 07/20/18 at 23:00 Dextrose (D50w Syringe) 50 ml Q15M PRN IV DECREASED GLUCOSE; Start 07/20/18 at 23:00 Glucagon (Glucagen) 1 mg Q15M PRN IM DECREASED GLUCOSE; Start 07/20/18 at 23:00 Glucose (Glutose) 15 gm Q15M PRN BUCCAL DECREASED GLUCOSE; Start 07/20/18 at 23:00 Melatonin (Melatonin) 3 mg HS PRN PO INSOMNIA Last administered on 08/17/18at 00:46; Admin Dose 3 MG; Start 07/20/18 at 23:00 Heparin Sodium (Porcine) 5,000 unit Q12 SC Last administered on 08/17/18at 09:33; Admin Dose 5,000 UNIT; Start 07/21/18 at 21:00 Diclofenac Sodium (Voltaren 1% Gel) 2 gm QID TP Last administered on 08/17/18at 09:28; Admin Dose 2 GM; Start 07/22/18 at 13:00 Tramadol HCl (Ultram) 100 mg Q6H PRN PO PAIN LEVEL 6-10 Last administered on 08/17/18at 00:46; Admin Dose 100 MG; Start 07/27/18 at 17:00 Patiromer (Veltassa) 16.8 gm DAILY PO Last administered on 08/07/18at 08:52; Admin Dose 16.8 GM; Start 07/31/18 at 09:00 Guaifenesin/ Dextromethorphan (Robitussin Dm Liquid Cup) 10 ml Q4H PRN PO COUGH; Start 07/30/18 at 15:00 Heparin Sodium (Porcine) (Heparin (1000 Units/ml)) 4,000 unit AFTER DIALYSIS CATHETER Last administered on 08/08/18 14:36; Admin Dose 4,000 UNIT; Start 07/31/18 at 18:00 Albumin Human 50 ml @ 100 mls/hr WITH DIALYSIS PRN IV SBP < 90 DURING DIALYSIS Last administered on 08/01/18at 22:17; Admin Dose 100 MLS/HR; Start 07/31/18 at 18:00 Sodium Chloride (NS) -To prime the dialy... DIRECTED FOR HD PRN IV HD; Start 07/31/18 at 18:00 Loratadine (Claritin) 10 mg DAILY PRN PO ALLERGIC REACTION Last administered on 08/07/18 12:48; Admin Dose 10 MG; Start 08/07/18 at 12:30 Hydralazine HCl (Apresoline) 10 mg Q6H PRN PO ELEVATED BLOOD PRESSURE Last administered on 08/17/18 01:41; Admin Dose 10 MG; Start 08/08/18 at 04:30 Hydralazine HCl (Apresoline) 25 mg TID PO Last administered on 08/17/18 09:31; Admin Dose 25 MG; Start 08/08/18 at 13:00 Ciprofloxacin (Cipro) 500 mg DAILY@06 PO Last administered on 08/17/18 05:51; Admin Dose 500 MG; Start 08/09/18 at 09:00 Eye Lubricant (Artificial Tears Oph) 2 drop QID BOTH EYES Last administered on 08/17/18 09:28; Admin Dose 2 DROP; Start 08/09/18 at 11:00 Calcium Carbonate (Tums) 500 mg PRN PRN PO HEARTBURN Last administered on 08/10/18at 17:07; Admin Dose 500 MG; Start 08/09/18 at 14:30 Bisacodyl (Dulcolax Supp) 10 mg DAILY PRN [place] CONSTIPATION; Start 08/13/18 at 15:00 Results Result Diagram: 08/16/18 1207 08/16/18 1207 Results 24 hrs Laboratory Tests Test 08/16/18 17:43 08/17/18 08:26 08/17/18 12:33 Bedside Glucose 136 112 147 KOFI SWANN MD Aug 17, 2018 12:52
--- NOTE | 2018-08-17 14:56 | PN ---
Date/Time of Note Date/Time of Note DATE: 08/17/18 TIME: 14:53 Assessment/Plan VTE Prophylaxis Risk score (from Nsg)>0 risk: 5 SCD applied (from Ns): No SCD contraindicated: other Pharmacological prophylaxis: other Lines/Catheters IV Catheter Type (from Nrs): permacath Urinary Cath still in place: No Assessment/Plan Hospital Course 58 y/o with 1. . ckd iii-iv now with the complications of hyperkalemia, patient has been refusing Kayexalate Veltassa has also been refusing dialysis, patient was explained the risks and consequences and patient completely understands the risks and consequences, now agreed, hyperkalemia 6 yesterday butr refusing interventions 2. c diff hx 3. Chronic kidney disease, 4. Morbid obesity. 5. Diabetes. 6. Hypertension, 7. Gout.hx 8. Neuropathy. 9. History of congestive heart failure. 10 weakness 11 deconditioning 13 Left shoulde pain, TTP ? Frozen shoulder , shoulder impingement 14 s/p Fall ? AMS confusion [facility] due to UTI 15 uti klebsiella and enterococcus Plan - cw with PT -She is refusing hemodialysis she states that she wants her therapy, refusing veltasa, lasix - Pt will need HD spoke to patient as last HD was last week, pt aware of consequences -- pt refused cortisone injecion per ortho - cw cipro total 14 day course - Wound care - US with thrombosed graft - Ortho consult however patient refused a cortisone shot - avoid narcotics as it would limit her ability to walk for PT as it happened la admission since pts goal is Physical therapy - low k diet -cw home hydralazine -tyenolol on as needed headache Subjective 24 Hr Interval Summary Free Text/Dictation Pt has been refusing HD, Veltassa, lasix for high potassium says just wants her therapy Exam/Review of Systems Vital Signs Vitals Vital Signs Date Temp Pulse Resp B/P (MAP) Pulse Ox O2 O2 Flow FiO2 Time Delivery Rate 08/17/18 83 14:00 08/17/18 18 119/65 Room Air 12:37 (83) 08/17/18 98 11:00 08/17/18 97.8 01:26 Intake and Output 08/16/18 08/16/18 08/17/18 1515:00 23:00 07:00 IntakeIntake Total 240 ml BalanceBalance 240 ml Exam Neck: supple Respiratory: clear to auscultation Cardiovascular: regular rate and rhythm Gastrointestinal: soft Extremities: edema (+) 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, nl mental status, nl speech, nl strength rt permacath Medications Medications Current Medications Acetaminophen (Tylenol Tab) 325 mg Q4H PRN PO MILD PAIN(1-3)OR ELEVATED TEMP Last administered on 08/14/18 17:29; Admin Dose 325 MG; Start 07/20/18 at 23:00 Allopurinol (Zyloprim) 100 mg DAILY PO Last administered on 08/17/18 09:30; Admin Dose 100 MG; Start 07/21/18 at 09:00 IV Flush (NS 3 ml) 3 ml PER PROTOCOL IV ; Start 07/20/18 at 23:00 Ondansetron HCl (Zofran Inj) 4 mg Q6H PRN IV NAUSEA AND/OR VOMITING Last administered on 08/15/18 09:05; Admin Dose 4 MG; Start 07/20/18 at 23:00 Acetaminophen (Tylenol Tab) 650 mg Q6H PRN PO PAIN LEVEL 1-3 OR FEVER Last administered on 08/06/18 20:27; Admin Dose 650 MG; Start 07/20/18 at 23:00 Acetaminophen (Tylenol Supp) 650 mg Q6H PRN [place] PAIN LEVEL 1-3 OR FEVER; Start 07/20/18 at 23:00 Docusate Sodium (Colace) 100 mg Q12H PRN PO CONSTIPATION Last administered on 08/14/18at 15:10; Admin Dose 100 MG; Start 07/20/18 at 23:00 Bisacodyl (Dulcolax) 5 mg DAILY PRN PO CONSTIPATION Last administered on 08/14/18 06:24; Admin Dose 5 MG; Start 07/20/18 at 23:00 Famotidine (Pepcid) 20 mg Q12 PO Last administered on 08/17/18 09:30; Admin Dose 20 MG; Start 07/21/18 at 09:00 Diagnostic Test (Pha) (Accu-Chek) 1 ea 02 XX Last administered on 08/12/18 02:28; Admin Dose 1 EA; Start 07/21/18 at 02:00 Insulin Aspart (Novolog Insulin Pen) NOVOLOG *MILD* ALGORITHM WITH MEALS BEDTIME SC Last administered on 08/15/18at 22:08; Admin Dose 1 UNIT; Start 07/21/18 at 07:50 Ergocalciferol (Drisdol) 50,000 unit Lacy@0900 PO Last administered on 08/14/18at 10:26; Admin Dose 50,000 UNIT; Start 07/24/18 at 09:00 Miscellaneous Information 1 ea NOTE XX ; Start 07/20/18 at 23:00 Glucose (Glutose) 15 gm Q15M PRN PO DECREASED GLUCOSE; Start 07/20/18 at 23:00 Glucose (Glutose) 22.5 gm Q15M PRN PO DECREASED GLUCOSE; Start 07/20/18 at 23:00 Dextrose (D50w Syringe) 25 ml Q15M PRN IV DECREASED GLUCOSE; Start 07/20/18 at 23:00 Dextrose (D50w Syringe) 50 ml Q15M PRN IV DECREASED GLUCOSE; Start 07/20/18 at 23:00 Glucagon (Glucagen) 1 mg Q15M PRN IM DECREASED GLUCOSE; Start 07/20/18 at 23:00 Glucose (Glutose) 15 gm Q15M PRN BUCCAL DECREASED GLUCOSE; Start 07/20/18 at 23:00 Melatonin (Melatonin) 3 mg HS PRN PO INSOMNIA Last administered on 08/17/18at 00:46; Admin Dose 3 MG; Start 07/20/18 at 23:00 Heparin Sodium (Porcine) 5,000 unit Q12 SC Last administered on 08/17/18at 09:33; Admin Dose 5,000 UNIT; Start 07/21/18 at 21:00 Diclofenac Sodium (Voltaren 1% Gel) 2 gm QID TP Last administered on 08/17/18at 09:28; Admin Dose 2 GM; Start 07/22/18 at 13:00 Tramadol HCl (Ultram) 100 mg Q6H PRN PO PAIN LEVEL 6-10 Last administered on 08/17/18at 00:46; Admin Dose 100 MG; Start 07/27/18 at 17:00 Patiromer (Veltassa) 16.8 gm DAILY PO Last administered on 08/07/18at 08:52; Admin Dose 16.8 GM; Start 07/31/18 at 09:00 Guaifenesin/ Dextromethorphan (Robitussin Dm Liquid Cup) 10 ml Q4H PRN PO COUGH; Start 07/30/18 at 15:00 Heparin Sodium (Porcine) (Heparin (1000 Units/ml)) 4,000 unit AFTER DIALYSIS CATHETER Last administered on 08/08/18at 14:36; Admin Dose 4,000 UNIT; Start 07/31/18 at 18:00 Albumin Human 50 ml @ 100 mls/hr WITH DIALYSIS PRN IV SBP < 90 DURING DIALYSIS Last administered on 08/01/18at 22:17; Admin Dose 100 MLS/HR; Start 07/31/18 at 18:00 Sodium Chloride (NS) -To prime the dialy... DIRECTED FOR HD PRN IV HD; Start 07/31/18 at 18:00 Loratadine (Claritin) 10 mg DAILY PRN PO ALLERGIC REACTION Last administered on 08/07/18at 12:48; Admin Dose 10 MG; Start 08/07/18 at 12:30 Hydralazine HCl (Apresoline) 10 mg Q6H PRN PO ELEVATED BLOOD PRESSURE Last administered on 08/17/18at 01:41; Admin Dose 10 MG; Start 08/08/18 at 04:30 Hydralazine HCl (Apresoline) 25 mg TID PO Last administered on 08/17/18 09:31; Admin Dose 25 MG; Start 08/08/18 at 13:00 Ciprofloxacin (Cipro) 500 mg DAILY@06 PO Last administered on 08/17/18at 05:51; Admin Dose 500 MG; Start 08/09/18 at 09:00 Eye Lubricant (Artificial Tears Oph) 2 drop QID BOTH EYES Last administered on 08/17/18 09:28; Admin Dose 2 DROP; Start 08/09/18 at 11:00 Calcium Carbonate (Tums) 500 mg PRN PRN PO HEARTBURN Last administered on 08/10/18 17:07; Admin Dose 500 MG; Start 08/09/18 at 14:30 Bisacodyl (Dulcolax Supp) 10 mg DAILY PRN [place] CONSTIPATION; Start 08/13/18 at 15:00 Results Result Diagram: 08/16/18 1207 08/16/18 1207 Results 24 hrs Laboratory Tests Test 08/16/18 17:43 08/17/18 08:26 08/17/18 12:33 Bedside Glucose 136 112 147 HUE,KOFI MD Aug 17, 2018 14:56
[2018-08-17] MEDS: FUROSEMIDE 40 MG TAB PO SCH (15:08)
[2018-08-18] MEDS: CALCIUM CARBONATE 500 MG CHEW TAB PO PRN (00:11)
[2018-08-18] MEDS: ACCU-CHEK XX SCH (01:44)
[2018-08-18 02:52] VITALS: BP 147/68; PULSE 78; RESP 20
[2018-08-18] MEDS: CIPROFLOXACIN 500 MG TAB PO SCH (06:04)
[2018-08-18] MEDS: traMADol 50 MG TAB PO PRN ×3 (06:05→21:02)
[2018-08-18 08:00] VITALS: BP 194/84; PULSE 77; RESP 20
[2018-08-18] MEDS ORDERED: HEPARIN 5,000 UNIT/0.5 ML VIAL ONE ×2 (08:05→20:50)
[2018-08-18] MEDS: ARTIFICIAL TEARS 15 ML OPH BOTH EYES SCH ×4 (08:22→21:13)
[2018-08-18] MEDS: INSULIN ASPART [NOVOLOG] 3 ML PEN SC SCH ×4 (08:27→21:00)
[2018-08-18] MEDS: FUROSEMIDE 40 MG TAB PO SCH (08:28)
[2018-08-18] MEDS: FAMOTIDINE 20 MG TAB PO SCH ×2 (08:28→21:02)
[2018-08-18] MEDS: ALLOPURINOL 100 MG TAB PO SCH (08:28)
[2018-08-18] MEDS: HEPARIN 5,000 UNIT/1 ML VIAL SC SCH ×2 (08:29→21:09)
[2018-08-18] MEDS: DOCUSATE SODIUM 100 MG CAP PO PRN (08:32)
[2018-08-18] MEDS: BALSAM PERU/CASTOR OIL 60 GM TUBE TOP SCH ×2 (08:33→21:00)
[2018-08-18] MEDS: DICLOFENAC SODIUM 1% GEL 100 GM TUBE TP SCH ×4 (08:33→21:13)
[2018-08-18] MEDS: PATIROMER CALCIUM SORBITEX 16.8 GM PKT PO SCH (09:00)
[2018-08-18 15:08] VITALS: BP 119/66; PULSE 84; RESP 20
--- NOTE | 2018-08-18 16:19 | PN ---
Date/Time of Note Date/Time of Note DATE: 08/18/18 TIME: 16:18 Assessment/Plan VTE Prophylaxis Risk score (from Nsg)>0 risk: 7 SCD applied (from Ns): No SCD contraindicated: other Pharmacological prophylaxis: heparin Lines/Catheters IV Catheter Type (from [facility]): PERMACATH Urinary Cath still in place: No Assessment/Plan Hospital Course 58 y/o with 1. . ckd iii-iv now with the complications of hyperkalemia, patient has been refusing Kayexalate Veltassa has also been refusing dialysis, patient was explained the risks and consequences and patient completely understands the risks and consequences, now agreed, hyperkalemia 6 yesterday butr refusing interventions 2. c diff hx 3. Chronic kidney disease, 4. Morbid obesity. 5. Diabetes. 6. Hypertension, 7. Gout.hx 8. Neuropathy. 9. History of congestive heart failure. 10 weakness 11 deconditioning 13 Left shoulde pain, TTP ? Frozen shoulder , shoulder impingement 14 s/p Fall ? [facility] to [facility] uti klebsiella and enterococcus Plan - cw with PT -She is refusing hemodialysis she states that she wants her therapy, refusing veltasa, lasix - Pt will need HD spoke to patient as last HD was last week, pt aware of consequences , HD AGAIN ORDERED BUT WANTS ON WEDNESDAY -- pt refused cortisone injecion per ortho - cw cipro total 14 day course - Wound care - US with thrombosed graft - Ortho consult however patient refused a cortisone shot - avoid narcotics as it would limit her ability to walk for PT as it happened last admission since pts goal is Physical therapy - low k diet -cw home hydralazine -tyenolol on as needed headache Subjective 24 Hr Interval Summary Free Text/Dictation in brandyn hernandez today with PT Exam/Review of Systems Vital Signs Vitals Vital Signs Date Temp Pulse Resp B/P (MAP) Pulse Ox O2 O2 Flow FiO2 Time Delivery Rate 08/18/18 97.3 84 20 119/66 96 Room Air 15:08 (83) Intake and Output 08/17/18 08/17/18 08/18/18 1515:00 23:00 07:00 IntakeIntake Total 280 ml OutputOutput Total 3000 ml 2 ml BalanceBalance -3000 ml 278 ml Exam Neck: supple Respiratory: clear to auscultation Cardiovascular: regular rate and rhythm Gastrointestinal: soft Extremities: edema (+) Neurological: 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, nl mental status, nl speech, nl strength rt permacath Medications Medications Current Medications Acetaminophen (Tylenol Tab) 325 mg Q4H PRN PO MILD PAIN(1-3)OR ELEVATED TEMP Last administered on 08/14/18 17:29; Admin Dose 325 MG; Start 07/20/18 at 23:00 Allopurinol (Zyloprim) 100 mg DAILY PO Last administered on 08/18/18 08:28; Admin Dose 100 MG; Start 07/21/18 at 09:00 IV Flush (NS 3 ml) 3 ml PER PROTOCOL IV ; Start 07/20/18 at 23:00 Ondansetron HCl (Zofran Inj) 4 mg Q6H PRN IV NAUSEA AND/OR VOMITING Last administered on 08/15/18 09:05; Admin Dose 4 MG; Start 07/20/18 at 23:00 Acetaminophen (Tylenol Tab) 650 mg Q6H PRN PO PAIN LEVEL 1-3 OR FEVER Last administered on 08/06/18 20:27; Admin Dose 650 MG; Start 07/20/18 at 23:00 Acetaminophen (Tylenol Supp) 650 mg Q6H PRN [place] PAIN LEVEL 1-3 OR FEVER; Start 07/20/18 at 23:00 Docusate Sodium (Colace) 100 mg Q12H PRN PO CONSTIPATION Last administered on 08/18/18 08:32; Admin Dose 100 MG; Start 07/20/18 at 23:00 Bisacodyl (Dulcolax) 5 mg DAILY PRN PO CONSTIPATION Last administered on 08/14/18 06:24; Admin Dose 5 MG; Start 07/20/18 at 23:00 Famotidine (Pepcid) 20 mg Q12 PO Last administered on 08/18/18 08:28; Admin Dose 20 MG; Start 07/21/18 at 09:00 Diagnostic Test (Pha) (Accu-Chek) 1 ea 02 XX Last administered on 08/12/18 02:28; Admin Dose 1 EA; Start 07/21/18 at 02:00 Insulin Aspart (Novolog Insulin Pen) NOVOLOG *MILD* ALGORITHM WITH MEALS BEDTIME SC Last administered on 08/18/18 08:27; Admin Dose 1 UNIT; Start 07/21/18 at 07:50 Ergocalciferol (Drisdol) 50,000 unit Lacy@0900 PO Last administered on 08/14/18at 10:26; Admin Dose 50,000 UNIT; Start 07/24/18 at 09:00 Miscellaneous Information 1 ea NOTE XX ; Start 07/20/18 at 23:00 Glucose (Glutose) 15 gm Q15M PRN PO DECREASED GLUCOSE; Start 07/20/18 at 23:00 Glucose (Glutose) 22.5 gm Q15M PRN PO DECREASED GLUCOSE; Start 07/20/18 at 23:00 Dextrose (D50w Syringe) 25 ml Q15M PRN IV DECREASED GLUCOSE; Start 07/20/18 at 23:00 Dextrose (D50w Syringe) 50 ml Q15M PRN IV DECREASED GLUCOSE; Start 07/20/18 at 23:00 Glucagon (Glucagen) 1 mg Q15M PRN IM DECREASED GLUCOSE; Start 07/20/18 at 23:00 Glucose (Glutose) 15 gm Q15M PRN BUCCAL DECREASED GLUCOSE; Start 07/20/18 at 23:00 Melatonin (Melatonin) 3 mg HS PRN PO INSOMNIA Last administered on 08/17/18 22:27; Admin Dose 3 MG; Start 07/20/18 at 23:00 Heparin Sodium (Porcine) 5,000 unit Q12 SC Last administered on 08/18/18 08:29; Admin Dose 5,000 UNIT; Start 07/21/18 at 21:00 Diclofenac Sodium (Voltaren 1% Gel) 2 gm QID TP Last administered on 08/18/18at 08:33; Admin Dose 2 GM; Start 07/22/18 at 13:00 Tramadol HCl (Ultram) 100 mg Q6H PRN PO PAIN LEVEL 6-10 Last administered on 08/18/18 14:38; Admin Dose 100 MG; Start 07/27/18 at 17:00 Patiromer (Veltassa) 16.8 gm DAILY PO Last administered on 08/07/18 08:52; Admin Dose 16.8 GM; Start 07/31/18 at 09:00 Guaifenesin/ Dextromethorphan (Robitussin Dm Liquid Cup) 10 ml Q4H PRN PO COUGH; Start 07/30/18 at 15:00 Heparin Sodium (Porcine) (Heparin (1000 Units/ml)) 4,000 unit AFTER DIALYSIS CATHETER Last administered on 08/08/18at 14:36; Admin Dose 4,000 UNIT; Start 07/31/18 at 18:00 Albumin Human 50 ml @ 100 mls/hr WITH DIALYSIS PRN IV SBP < 90 DURING DIALYSIS Last administered on 08/01/18at 22:17; Admin Dose 100 MLS/HR; Start 07/31/18 at 18:00 Sodium Chloride (NS) -To prime the dialy... DIRECTED FOR HD PRN IV HD; Start 07/31/18 at 18:00 Loratadine (Claritin) 10 mg DAILY PRN PO ALLERGIC REACTION Last administered on 08/07/18at 12:48; Admin Dose 10 MG; Start 08/07/18 at 12:30 Hydralazine HCl (Apresoline) 10 mg Q6H PRN PO ELEVATED BLOOD PRESSURE Last administered on 08/17/18at 01:41; Admin Dose 10 MG; Start 08/08/18 at 04:30 Hydralazine HCl (Apresoline) 25 mg TID PO Last administered on 08/18/18at 08:27 ; Admin Dose 25 MG; Start 08/08/18 at 13:00 Ciprofloxacin (Cipro) 500 mg DAILY@06 PO Last administered on 08/18/18at 06:04; Admin Dose 500 MG; Start 08/09/18 at 09:00 Eye Lubricant (Artificial Tears Oph) 2 drop QID BOTH EYES Last administered on 08/18/18at 08:22; Admin Dose 2 DROP; Start 08/09/18 at 11:00 Calcium Carbonate (Tums) 500 mg PRN PRN PO HEARTBURN Last administered on 08/18/18at 00:11; Admin Dose 500 MG; Start 08/09/18 at 14:30 Bisacodyl (Dulcolax Supp) 10 mg DAILY PRN [place] CONSTIPATION; Start 08/13/18 at 15:00 Furosemide (Lasix) 40 mg DAILY PO Last administered on 08/18/18at 08:28; Admin Dose 40 MG; Start 08/17/18 at 15:00 Results Result Diagram: 08/16/18 1207 08/16/18 1207 Results 24 hrs Laboratory Tests Test 08/17/18 22:20 08/18/18 08:14 08/18/18 13:30 Bedside Glucose 175 142 112 KOFI SWANN MD Aug 18, 2018 16:19
[2018-08-18 19:00] VITALS: BP 120/56; PULSE 69; RESP 20
[2018-08-18] MEDS: MELATONIN 3 MG TABLET PO PRN (22:26)
[2018-08-19] MEDS: ACCU-CHEK XX SCH (01:29)
[2018-08-19 02:10] VITALS: BP 127/75; PULSE 71; RESP 20
[2018-08-19] MEDS: traMADol 50 MG TAB PO PRN ×2 (05:38→11:27)
[2018-08-19] MEDS: CIPROFLOXACIN 500 MG TAB PO SCH (05:38)
[2018-08-19] MEDS: INSULIN ASPART [NOVOLOG] 3 ML PEN SC SCH ×4 (07:50→21:00)
[2018-08-19] MEDS ORDERED: HEPARIN 5,000 UNIT/0.5 ML VIAL ONE ×2 (08:03→20:14)
[2018-08-19] MEDS: ALLOPURINOL 100 MG TAB PO SCH (08:21)
[2018-08-19] MEDS: DICLOFENAC SODIUM 1% GEL 100 GM TUBE TP SCH ×4 (08:21→21:00)
[2018-08-19] MEDS: FUROSEMIDE 40 MG TAB PO SCH (08:21)
[2018-08-19] MEDS: FAMOTIDINE 20 MG TAB PO SCH ×2 (08:21→21:43)
[2018-08-19] MEDS: ARTIFICIAL TEARS 15 ML OPH BOTH EYES SCH ×4 (08:22→21:42)
[2018-08-19] MEDS: BALSAM PERU/CASTOR OIL 60 GM TUBE TOP SCH ×2 (08:22→21:42)
[2018-08-19] MEDS: HEPARIN 5,000 UNIT/1 ML VIAL SC SCH ×2 (08:32→22:07)
[2018-08-19] MEDS: PATIROMER CALCIUM SORBITEX 16.8 GM PKT PO SCH (09:00)
--- NOTE | 2018-08-19 12:54 | PN ---
Date/Time of Note Date/Time of Note DATE: 08/19/18 TIME: 12:49 Assessment/Plan VTE Prophylaxis Risk score (from Ns)>0 risk: 3 [place] [facility] [place] SCD contraindicated: other Pharmacological prophylaxis: heparin Lines/Catheters IV Catheter Type (from Nrs): permacath Central line still needed: Yes Urinary Cath still in place: No Assessment/Plan Hospital Course 1. ckd, hyperkalemia 2. c diff hx 3. Opiates dependency 4. Morbid obesity. 5. Diabetes. 6. Hypertension, 7. Gout, hx 8. Neuropathy. 9. History of congestive heart failure. 10. weakness 11. deconditioning 12. Non compliance, pt refused Valtessa, HD 13. Left shoulder chronic pain. Xray was reviewed from the last visit, it is arthrosis left acromioclavicular joint 14. constipation Assessment/Plan - cw with PT -She is refusing hemodialysis she states that she wants her therapy, refusing veltasa, lasix -- pt refused cortisone injecion per ortho - cw cipro total 14 day course - Wound care - US with thrombosed graft - Ortho consult however patient refused a cortisone shot - avoid narcotics as it would limit her ability to walk for PT as it happened last admission since pts goal is Physical therapy - low k diet -cw home hydralazine -tyenol on as needed headache Subjective 24 Hr Interval Summary Constitutional: no complaints Exam/Review of Systems Vital Signs Vitals Vital Signs Date Temp Pulse Resp B/P (MAP) Pulse Ox O2 O2 Flow FiO2 Time Delivery Rate 08/19/18 97.7 71 20 127/75 96 Room Air 02:10 (92) Intake and Output 08/18/18 08/18/18 08/19/18 1515:00 23:00 07:00 IntakeIntake Total 900 ml OutputOutput Total 3 ml BalanceBalance 897 ml Exam right chest Permcath Constitutional: alert, oriented Respiratory: clear to auscultation Cardiovascular: regular rate and rhythm Medications Medications Current Medications Acetaminophen (Tylenol Tab) 325 mg Q4H PRN PO MILD PAIN(1-3)OR ELEVATED TEMP Last administered on 08/14/18at 17:29; Admin Dose 325 MG; Start 07/20/18 at 23:00 Allopurinol (Zyloprim) 100 mg DAILY PO Last administered on 08/19/18 08:21; Admin Dose 100 MG; Start 07/21/18 at 09:00 IV Flush (NS 3 ml) 3 ml PER PROTOCOL IV ; Start 07/20/18 at 23:00 Ondansetron HCl (Zofran Inj) 4 mg Q6H PRN IV NAUSEA AND/OR VOMITING Last administered on 08/15/18 09:05; Admin Dose 4 MG; Start 07/20/18 at 23:00 Acetaminophen (Tylenol Tab) 650 mg Q6H PRN PO PAIN LEVEL 1-3 OR FEVER Last administered on 08/06/18 20:27; Admin Dose 650 MG; Start 07/20/18 at 23:00 Acetaminophen (Tylenol Supp) 650 mg Q6H PRN AR PAIN LEVEL 1-3 OR FEVER; Start 07/20/18 at 23:00 Docusate Sodium (Colace) 100 mg Q12H PRN PO CONSTIPATION Last administered on 08/18/18 08:32; Admin Dose 100 MG; Start 07/20/18 at 23:00 Bisacodyl (Dulcolax) 5 mg DAILY PRN PO CONSTIPATION Last administered on 08/14/18 06:24; Admin Dose 5 MG; Start 07/20/18 at 23:00 Famotidine (Pepcid) 20 mg Q12 PO Last administered on 08/19/18 08:21; Admin Dose 20 MG; Start 07/21/18 at 09:00 Diagnostic Test (Pha) (Accu-Chek) 1 ea 02 XX Last administered on 08/12/18at 02:28; Admin Dose 1 EA; Start 07/21/18 at 02:00 Insulin Aspart (Novolog Insulin Pen) NOVOLOG *MILD* ALGORITHM WITH MEALS BEDTIME SC Last administered on 08/18/18 08:27; Admin Dose 1 UNIT; Start 07/21/18 at 07:50 Ergocalciferol (Drisdol) 50,000 unit Lacy@0900 PO Last administered on 08/14/18 10:26; Admin Dose 50,000 UNIT; Start 07/24/18 at 09:00 Miscellaneous Information 1 ea NOTE XX ; Start 07/20/18 at 23:00 Glucose (Glutose) 15 gm Q15M PRN PO DECREASED GLUCOSE; Start 07/20/18 at 23:00 Glucose (Glutose) 22.5 gm Q15M PRN PO DECREASED GLUCOSE; Start 07/20/18 at 23:00 Dextrose (D50w Syringe) 25 ml Q15M PRN IV DECREASED GLUCOSE; Start 07/20/18 at 23:00 Dextrose (D50w Syringe) 50 ml Q15M PRN IV DECREASED GLUCOSE; Start 07/20/18 at 23:00 Glucagon (Glucagen) 1 mg Q15M PRN IM DECREASED GLUCOSE; Start 07/20/18 at 23:00 Glucose (Glutose) 15 gm Q15M PRN BUCCAL DECREASED GLUCOSE; Start 07/20/18 at 23:00 Melatonin (Melatonin) 3 mg HS PRN PO INSOMNIA Last administered on 08/18/18 22:26; Admin Dose 3 MG; Start 07/20/18 at 23:00 Heparin Sodium (Porcine) 5,000 unit Q12 SC Last administered on 08/19/18at 08:32; Admin Dose 5,000 UNIT; Start 07/21/18 at 21:00 Diclofenac Sodium (Voltaren 1% Gel) 2 gm QID TP Last administered on 08/19/18 08:21; Admin Dose 2 GM; Start 07/22/18 at 13:00 Tramadol HCl (Ultram) 100 mg Q6H PRN PO PAIN LEVEL 6-10 Last administered on 11:27; Admin Dose 100 MG; Start 07/27/18 at 17:00 Patiromer (Veltassa) 16.8 gm DAILY PO Last administered on 08/07/18 08:52; Admin Dose 16.8 GM; Start 07/31/18 at 09:00 Guaifenesin/ Dextromethorphan (Robitussin Dm Liquid Cup) 10 ml Q4H PRN PO COUGH; Start 07/30/18 at 15:00 Heparin Sodium (Porcine) (Heparin (1000 Units/ml)) 4,000 unit AFTER DIALYSIS CATHETER Last administered on 08/08/18at 14:36; Admin Dose 4,000 UNIT; Start 07/31/18 at 18:00 Albumin Human 50 ml @ 100 mls/hr WITH DIALYSIS PRN IV SBP < 90 DURING DIALYSIS Last administered on 08/01/18 22:17; Admin Dose 100 MLS/HR; Start 07/31/18 at 18:00 Sodium Chloride (NS) -To prime the dialy... DIRECTED FOR HD PRN IV HD; Start 07/31/18 at 18:00 Loratadine (Claritin) 10 mg DAILY PRN PO ALLERGIC REACTION Last administered on 08/07/18 12:48; Admin Dose 10 MG; Start 08/07/18 at 12:30 Hydralazine HCl (Apresoline) 10 mg Q6H PRN PO ELEVATED BLOOD PRESSURE Last administered on 08/17/18 01:41; Admin Dose 10 MG; Start 08/08/18 at 04:30 Hydralazine HCl (Apresoline) 25 mg TID PO Last administered on 08/19/18 08: 21; Admin Dose 25 MG; Start 08/08/18 at 13:00 Ciprofloxacin (Cipro) 500 mg DAILY@06 PO Last administered on 08/19/18 05:38; Admin Dose 500 MG; Start 08/09/18 at 09:00 Eye Lubricant (Artificial Tears Oph) 2 drop QID BOTH EYES Last administered on 08/19/18 08:22; Admin Dose 2 DROP; Start 08/09/18 at 11:00 Calcium Carbonate (Tums) 500 mg PRN PRN PO HEARTBURN Last administered on 08/18/18at 00:11; Admin Dose 500 MG; Start 08/09/18 at 14:30 Bisacodyl (Dulcolax Supp) 10 mg DAILY PRN AR CONSTIPATION; Start 08/13/18 at 15:00 Furosemide (Lasix) 40 mg DAILY PO Last administered on 08/19/18 08:21; Admin Dose 40 MG; Start 08/17/18 at 15:00 Results Result Diagram: 08/16/18 1207 08/19/18 1047 Results 24 hrs Laboratory Tests Test 08/18/18 13:30 08/18/18 17:26 08/18/18 21:00 08/19/18 08:20 Bedside Glucose 112 165 168 108 Test 08/19/18 10:47 08/19/18 12:31 Sodium Level 139 Potassium Level 6.1 *H Chloride Level 105 Carbon Dioxide 24 Level Anion Gap 10 Blood Urea 50 H Nitrogen Creatinine 3.41 H Est Glomerular 14 L Filtrat Rate mL/min Glucose Level 127 Calcium Level 8.7 Bedside Glucose 97 WILLY MEDEIROS Aug 19, 2018 12:54
[2018-08-19 15:14] VITALS: BP 170/79; PULSE 76; RESP 18
[2018-08-19 19:30] VITALS: BP 145/88; PULSE 71; RESP 20
[2018-08-20] VITALS (8 sets, daily range): BP systolic 109–179; BP diastolic 62–99; PULSE 74–88; RESP 16–20
[2018-08-20] MEDS: traMADol 50 MG TAB PO PRN ×2 (00:05→20:45)
[2018-08-20] MEDS: MELATONIN 3 MG TABLET PO PRN ×2 (00:09→20:45)
[2018-08-20] MEDS ORDERED: traMADol 50 MG TAB PO ONE (01:00)
[2018-08-20] MEDS: ACCU-CHEK XX SCH ×2 (02:00→23:27)
[2018-08-20] MEDS: CIPROFLOXACIN 500 MG TAB PO SCH (05:25)
[2018-08-20] MEDS: INSULIN ASPART [NOVOLOG] 3 ML PEN SC SCH ×4 (07:50→20:39)
[2018-08-20] MEDS: HEPARIN 5,000 UNIT/1 ML VIAL SC SCH ×2 (09:00→20:41)
[2018-08-20] MEDS: DICLOFENAC SODIUM 1% GEL 100 GM TUBE TP SCH ×4 (09:00→20:41)
[2018-08-20] MEDS: ALLOPURINOL 100 MG TAB PO SCH (09:00)
[2018-08-20] MEDS: PATIROMER CALCIUM SORBITEX 16.8 GM PKT PO SCH (09:00)
[2018-08-20] MEDS: ARTIFICIAL TEARS 15 ML OPH BOTH EYES SCH ×4 (09:00→20:38)
[2018-08-20] MEDS: FUROSEMIDE 40 MG TAB PO SCH (09:00)
[2018-08-20] MEDS: FAMOTIDINE 20 MG TAB PO SCH ×2 (09:00→20:39)
[2018-08-20] MEDS: BALSAM PERU/CASTOR OIL 60 GM TUBE TOP SCH ×2 (09:00→20:41)
[2018-08-20] MEDS ORDERED: ENOXAPARIN 40 MG/0.4 ML SYG SC SCH (09:00)
[2018-08-20] MEDS ORDERED: HEPARIN 5,000 UNIT/0.5 ML VIAL ONE ×2 (09:19→20:34)
--- NOTE | 2018-08-20 15:22 | PN ---
Date/Time of Note Date/Time of Note DATE: 08/20/18 TIME: 15:20 Assessment/Plan VTE Prophylaxis Risk score (from Ns)>0 risk: 6 SCD applied (from [facility] [place]): No SCD contraindicated: patient refusal Pharmacological prophylaxis: heparin Lines/Catheters IV Catheter Type (from [facility]): Permacath Urinary Cath still in place: No Assessment/Plan Hospital Course 1. ckd, hyperkalemia 2. c diff hx 3. Opiates dependency 4. Morbid obesity. 5. Diabetes. 6. Hypertension, 7. Gout, hx 8. Neuropathy. 9. History of congestive heart failure. 10. weakness 11. deconditioning 12. Non compliance, pt refused Valtessa, HD 13. Left shoulder chronic pain. Xray was reviewed from the last visit, it is arthrosis left acromioclavicular joint 14. constipation Assessment/Plan -cw with PT -She is refusing hemodialysis she states that she wants her therapy, refusing veltasa, lasix -- pt refused cortisone injection per ortho - cw cipro total 14 day course - Wound care - US with thrombosed graft - Ortho consult however patient refused a cortisone shot - avoid narcotics as it would limit her ability to walk for PT as it happened last admission since pts goal is Physical therapy - low k diet -cw home hydralazine -Tylenol on as needed headache Subjective 24 Hr Interval Summary Musculoskeletal: back pain, restricted range of motion Exam/Review of Systems Vital Signs Vitals Vital Signs Date Temp Pulse Resp B/P (MAP) Pulse Ox O2 O2 Flow FiO2 Time Delivery Rate 08/20/18 97.9 87 18 115/75 94 Room Air 14:39 (88) Intake and Output 08/19/18 08/19/18 08/20/18 1515:00 23:00 07:00 IntakeIntake Total 1360 ml 360 ml 1100 ml BalanceBalance 1360 ml 360 ml 1100 ml Exam right chest permcath Constitutional: alert, oriented Respiratory: clear to auscultation Cardiovascular: regular rate and rhythm Gastrointestinal: soft Medications Medications Current Medications Acetaminophen (Tylenol Tab) 325 mg Q4H PRN PO MILD PAIN(1-3)OR ELEVATED TEMP [place] administered on 08/14/18at 17:29; Admin Dose 325 MG; Start 07/20/18 at 23:00 Allopurinol (Zyloprim) 100 mg DAILY PO Last administered on 08/19/18 08:21; Admin Dose 100 MG; Start 07/21/18 at 09:00 IV Flush (NS 3 ml) 3 ml PER PROTOCOL IV ; Start 07/20/18 at 23:00 Ondansetron HCl (Zofran Inj) 4 mg Q6H PRN IV NAUSEA AND/OR VOMITING Last administered on 08/15/18 09:05; Admin Dose 4 MG; Start 07/20/18 at 23:00 Acetaminophen (Tylenol Tab) 650 mg Q6H PRN PO PAIN LEVEL 1-3 OR FEVER Last adm inistered on 08/06/18 20:27; Admin Dose 650 MG; Start 07/20/18 at 23:00 Acetaminophen (Tylenol Supp) 650 mg Q6H PRN DC PAIN LEVEL 1-3 OR FEVER; Start 07/20/18 at 23:00 Docusate Sodium (Colace) 100 mg Q12H PRN PO CONSTIPATION Last administered on 08/18/18 08:32; Admin Dose 100 MG; Start 07/20/18 at 23:00 Bisacodyl (Dulcolax) 5 mg DAILY PRN PO CONSTIPATION Last administered on 08/14/18 06:24; Admin Dose 5 MG; Start 07/20/18 at 23:00 Famotidine (Pepcid) 20 mg Q12 PO Last administered on 08/19/18 21:43; Admin Dose 20 MG; Start 07/21/18 at 09:00 Diagnostic Test (Pha) (Accu-Chek) 1 ea 02 XX Last administered on 08/12/18at 02:28; Admin Dose 1 EA; Start 07/21/18 at 02:00 Insulin Aspart (Novolog Insulin Pen) NOVOLOG *MILD* ALGORITHM WITH MEALS BEDTIME SC Last administered on 08/18/18 08:27; Admin Dose 1 UNIT; Start 07/21/18 at 07:50 Ergocalciferol (Drisdol) 50,000 unit Lacy@0900 PO Last administered on 08/14/18 10:26; Admin Dose 50,000 UNIT; Start 07/24/18 at 09:00 Miscellaneous Information 1 ea NOTE XX ; Start 07/20/18 at 23:00 Glucose (Glutose) 15 gm Q15M PRN PO DECREASED GLUCOSE; Start 07/20/18 at 23:00 Glucose (Glutose) 22.5 gm Q15M PRN PO DECREASED GLUCOSE; Start 07/20/18 at 23:00 Dextrose (D50w Syringe) 25 ml Q15M PRN IV DECREASED GLUCOSE; Start 07/20/18 at 23:00 Dextrose (D50w Syringe) 50 ml Q15M PRN IV DECREASED GLUCOSE; Start 07/20/18 at 23:00 Glucagon (Glucagen) 1 mg Q15M PRN IM DECREASED GLUCOSE; Start 07/20/18 at 23:00 Glucose (Glutose) 15 gm Q15M PRN BUCCAL DECREASED GLUCOSE; Start 07/20/18 at 23:00 Melatonin (Melatonin) 3 mg HS PRN PO INSOMNIA Last administered on 08/20/18at 00:09; Admin Dose 3 MG; Start 07/20/18 at 23:00 Heparin Sodium (Porcine) 5,000 unit Q12 SC Last administered on 08/19/18at 22:07; Admin Dose 5,000 UNIT; Start 07/21/18 at 21:00 Diclofenac Sodium (Voltaren 1% Gel) 2 gm QID TP Last administered on 08/19/18at 15:12; Admin Dose 2 GM; Start 07/22/18 at 13:00 Tramadol HCl (Ultram) 100 mg Q6H PRN PO PAIN LEVEL 6-10 Last administered on 08/20/18at 00:05; Admin Dose 100 MG; Start 07/27/18 at 17:00 Patiromer (Veltassa) 16.8 gm DAILY PO Last administered on 08/07/18at 08:52; Admin Dose 16.8 GM; Start 07/31/18 at 09:00 Guaifenesin/ Dextromethorphan (Robitussin Dm Liquid Cup) 10 ml Q4H PRN PO COUGH; Start 07/30/18 at 15:00 Heparin Sodium (Porcine) (Heparin (1000 Units/ml)) 4,000 unit AFTER DIALYSIS CATHETER Last administered on 08/08/18at 14:36; Admin Dose 4,000 UNIT; Start 07/31/18 at 18:00 Albumin Human 50 ml @ 100 mls/hr WITH DIALYSIS PRN IV SBP < 90 DURING DIALYSIS Last administered on 08/01/18at 22:17; Admin Dose 100 MLS/HR; Start 07/31/18 at 18:00 Sodium Chloride (NS) -To prime the dialy... DIRECTED FOR HD PRN IV HD; Start 07/31/18 at 18:00 Loratadine (Claritin) 10 mg DAILY PRN PO ALLERGIC REACTION Last administered on 08/07/18at 12:48; Admin Dose 10 MG; Start 08/07/18 at 12:30 Hydralazine HCl (Apresoline) 10 mg Q6H PRN PO ELEVATED BLOOD PRESSURE Last administered on 08/20/18at 05:49; Admin Dose 10 MG; Start 08/08/18 at 04:30 Hydralazine HCl (Apresoline) 25 mg TID PO Last administered on 08/19/18 15:12; Admin Dose 25 MG; Start 08/08/18 at 13:00 Ciprofloxacin (Cipro) 500 mg DAILY@06 PO Last administered on 08/20/18 05:25; Admin Dose 500 MG; Start 08/09/18 at 09:00 Eye Lubricant (Artificial Tears Oph) 2 drop QID BOTH EYES Last administered on 08/19/18at 21:42; Admin Dose 2 DROP; Start 08/09/18 at 11:00 Calcium Carbonate (Tums) 500 mg PRN PRN PO HEARTBURN Last administered on 08/18/18at 00:11; Admin Dose 500 MG; Start 08/09/18 at 14:30 Bisacodyl (Dulcolax Supp) 10 mg DAILY PRN DC CONSTIPATION; Start 08/13/18 at 15:00 Furosemide (Lasix) 40 mg DAILY PO Last administered on 08/19/18at 08:21; Admin Dose 40 MG; Start 08/17/18 at 15:00 Results Result Diagram: 08/16/18 1207 08/19/18 1047 Results 24 hrs Laboratory Tests Test 08/19/18 17:19 08/19/18 21:51 08/20/18 08:28 08/20/18 12:58 Bedside Glucose 130 132 118 102 WILLY MEDEIROS Aug 20, 2018 15:22
[2018-08-20] MEDS ORDERED: ALTEPLASE (CATHFLO) 2 MG INJ CATHETER STA (17:17)
[2018-08-21] VITALS (19 sets, daily range): BP systolic 97–182; BP diastolic 61–110; PULSE 74–87; RESP 16–18
[2018-08-21] MEDS: ACETAMINOPHEN 325 MG TAB PO PRN (01:16)
[2018-08-21] MEDS: CIPROFLOXACIN 500 MG TAB PO SCH (05:29)
[2018-08-21] MEDS: INSULIN ASPART [NOVOLOG] 3 ML PEN SC SCH ×4 (08:45→21:00)
[2018-08-21] MEDS: DICLOFENAC SODIUM 1% GEL 100 GM TUBE TP SCH ×4 (09:00→22:18)
[2018-08-21] MEDS: FUROSEMIDE 40 MG TAB PO SCH (09:00)
[2018-08-21] MEDS: BALSAM PERU/CASTOR OIL 60 GM TUBE TOP SCH ×2 (09:00→22:18)
[2018-08-21] MEDS: ARTIFICIAL TEARS 15 ML OPH BOTH EYES SCH ×4 (09:00→21:00)
[2018-08-21] MEDS: ERGOCALCIFEROL 50,000 UNIT CAP PO SCH (09:00)
[2018-08-21] MEDS: PATIROMER CALCIUM SORBITEX 16.8 GM PKT PO SCH (09:00)
[2018-08-21] MEDS: ALLOPURINOL 100 MG TAB PO SCH (09:00)
[2018-08-21] MEDS ORDERED: HEPARIN 5,000 UNIT/0.5 ML VIAL ONE ×2 (09:45→20:18)
[2018-08-21] MEDS: traMADol 50 MG TAB PO PRN ×2 (10:01→16:53)
[2018-08-21] MEDS: FAMOTIDINE 20 MG TAB PO SCH (10:01)
[2018-08-21] MEDS: HEPARIN 5,000 UNIT/1 ML VIAL SC SCH ×2 (10:07→22:20)
[2018-08-21] MEDS: HEPARIN 1000 UNITS/ML 10 ML INJ CATHETER SCH (11:42)
[2018-08-21] MEDS ORDERED: LOPERAMIDE 2 MG CAP PO ONE (16:00)
--- NOTE | 2018-08-21 16:20 | PN ---
Date/Time of Note Date/Time of Note DATE: 08/21/18 TIME: 16:18 Assessment/Plan VTE Prophylaxis Risk score (from Ns)>0 risk: 9 SCD applied (from Ns): No SCD contraindicated: other Pharmacological prophylaxis: heparin Lines/Catheters IV Catheter Type (from [facility] PERMACATH Urinary Cath still in place: No Assessment/Plan Hospital Course 58 y/o with 1. . ckd iii-iv now with the complications of hyperkalemia, patient has been refusing Kayexalate Veltassa has also been refusing dialysis, patient was explained the risks and consequences and patient completely understands the risks and consequences, now agreed, hyperkalemia 6 yesterday butr refusing interventions 2. c diff hx 3. Chronic kidney disease, 4. Morbid obesity. 5. Diabetes. 6. Hypertension, 7. Gout.hx 8. Neuropathy. 9. History of congestive heart failure. 10 weakness 11 deconditioning 13 Left shoulde pain, TTP ? Frozen shoulder , shoulder impingement 14 s/p Fall ? AMS confusion likley due to UTI 15 uti klebsiella and enterococcus 16 diarrhea Plan - check c diff - imodium - finsihing abx today for UTI - Lactobacillus - cw with PT - HD todau -- pt refused cortisone injecion per ortho - Wound care - US with thrombosed graft - Ortho consult however patient refused a cortisone shot - avoid narcotics as it would limit her ability to walk for PT as it happened last admission since pts goal is Physical therapy - low k diet -cw home hydralazine -tyenolol on as needed headache Subjective 24 Hr Interval Summary Free Text/Dictation Pt had TPA and then had HD today diarrhoea Exam/Review of Systems Vital Signs Vitals Vital Signs Date Temp Pulse Resp B/P (MAP) Pulse Ox O2 O2 Flow FiO2 Time Delivery Rate 08/21/18 98.0 79 18 128/93 93 Room Air 15:23 (105) 08/21/18 2.0 12:30 Intake and Output 08/20/18 08/20/18 08/21/18 1515:00 23:00 07:00 IntakeIntake Total 300 ml OutputOutput Total 400 ml BalanceBalance -400 ml 300 ml Exam right chest permcath Constitutional: alert, oriented Respiratory: clear to auscultation Cardiovascular: regular rate and rhythm Gastrointestinal: soft Medications Medications Current Medications Acetaminophen (Tylenol Tab) 325 mg Q4H PRN PO MILD PAIN(1-3)OR ELEVATED TEMP Last administered on 08/14/18at 17:29; Admin Dose 325 MG; Start 07/20/18 at 23:00 Allopurinol (Zyloprim) 100 mg DAILY PO Last administered on 08/19/18 08:21; Admin Dose 100 MG; Start 07/21/18 at 09:00 IV Flush (NS 3 ml) 3 ml PER PROTOCOL IV ; Start 07/20/18 at 23:00 Ondansetron HCl (Zofran Inj) 4 mg Q6H PRN IV NAUSEA AND/OR VOMITING Last ad ministered on 08/15/18at 09:05; Admin Dose 4 MG; Start 07/20/18 at 23:00 Acetaminophen (Tylenol Tab) 650 mg Q6H PRN PO PAIN LEVEL 1-3 OR FEVER Last administered on 08/21/18at 01:16; Admin Dose 650 MG; Start 07/20/18 at 23:00 Acetaminophen (Tylenol Supp) 650 mg Q6H PRN CA PAIN LEVEL 1-3 OR FEVER; Start 07/20/18 at 23:00 Docusate Sodium (Colace) 100 mg Q12H PRN PO CONSTIPATION Last administered on 08/18/18at 08:32; Admin Dose 100 MG; Start 07/20/18 at 23:00 Bisacodyl (Dulcolax) 5 mg DAILY PRN PO CONSTIPATION Last administered on 08/14/18 06:24; Admin Dose 5 MG; Start 07/20/18 at 23:00 Diagnostic Test (Pha) (Accu-Chek) 1 ea 02 XX Last administered on 08/12/18at 02:28; Admin Dose 1 EA; Start 07/21/18 at 02:00 Insulin Aspart (Novolog Insulin Pen) NOVOLOG *MILD* ALGORITHM WITH MEALS BEDTIME SC Last administered on 08/18/18 08:27; Admin Dose 1 UNIT; Start 07/21/18 at 07:50 Ergocalciferol (Drisdol) 50,000 unit Lacy@0900 PO Last administered on 08/14/18at 10:26; Admin Dose 50,000 UNIT; Start 07/24/18 at 09:00 Miscellaneous Information 1 ea NOTE XX ; Start 07/20/18 at 23:00 Glucose (Glutose) 15 gm Q15M PRN PO DECREASED GLUCOSE; Start 07/20/18 at 23:00 Glucose (Glutose) 22.5 gm Q15M PRN PO DECREASED GLUCOSE; Start 07/20/18 at 23:00 Dextrose (D50w Syringe) 25 ml Q15M PRN IV DECREASED GLUCOSE; Start 07/20/18 at 23:00 Dextrose (D50w Syringe) 50 ml Q15M PRN IV DECREASED GLUCOSE; Start 07/20/18 at 23:00 Glucagon (Glucagen) 1 mg Q15M PRN IM DECREASED GLUCOSE; Start 07/20/18 at 23:00 Glucose (Glutose) 15 gm Q15M PRN BUCCAL DECREASED GLUCOSE; Start 07/20/18 at 23:00 Melatonin (Melatonin) 3 mg HS PRN PO INSOMNIA Last administered on 08/20/18at 20:45; Admin Dose 3 MG; Start 07/20/18 at 23:00 Heparin Sodium (Porcine) 5,000 unit Q12 SC Last administered on 08/21/18at 10:07; Admin Dose 5,000 UNIT; Start 07/21/18 at 21:00 Diclofenac Sodium (Voltaren 1% Gel) 2 gm QID TP Last administered on 08/20/18at 20:41; Admin Dose 2 GM; Start 07/22/18 at 13:00 Tramadol HCl (Ultram) 100 mg Q6H PRN PO PAIN LEVEL 6-10 Last administered on 08/21/18at 10:01; Admin Dose 100 MG; Start 07/27/18 at 17:00 Patiromer (Veltassa) 16.8 gm DAILY PO Last administered on 08/07/18at 08:52; Admin Dose 16.8 GM; Start 07/31/18 at 09:00 Guaifenesin/ Dextromethorphan (Robitussin Dm Liquid Cup) 10 ml Q4H PRN PO COUGH; Start 07/30/18 at 15:00 Heparin Sodium (Porcine) (Heparin (1000 Units/ml)) 4,000 unit AFTER DIALYSIS CATHETER Last administered on 08/21/18at 11:42; Admin Dose 4,700 UNIT; Start 07/31/18 at 18:00 Albumin Human 50 ml @ 100 mls/hr WITH DIALYSIS PRN IV SBP < 90 DURING DIALYSIS Last administered on 08/01/18at 22:17; Admin Dose 100 MLS/HR; Start 07/31/18 at 18:00 Sodium Chloride (NS) -To prime the dialy... DIRECTED FOR HD PRN IV HD; Start 07/31/18 at 18:00 Loratadine (Claritin) 10 mg DAILY PRN PO ALLERGIC REACTION Last administered on 08/07/18at 12:48; Admin Dose 10 MG; Start 08/07/18 at 12:30 Hydralazine HCl (Apresoline) 10 mg Q6H PRN PO ELEVATED BLOOD PRESSURE Last administered on 08/21/18 02:06; Admin Dose 10 MG; Start 08/08/18 at 04:30 Hydralazine HCl (Apresoline) 25 mg TID PO Last administered on 08/21/18 10:01; Admin Dose 25 MG; Start 08/08/18 at 13:00 Ciprofloxacin (Cipro) 500 mg DAILY@06 PO Last administered on 08/21/18at 05:29; Admin Dose 500 MG; Start 08/09/18 at 09:00 Eye Lubricant (Artificial Tears Oph) 2 drop QID BOTH EYES Last administered on 08/20/18at 20:38; Admin Dose 2 DROP; Start 08/09/18 at 11:00 Calcium Carbonate (Tums) 500 mg PRN PRN PO HEARTBURN Last administered on 08/18/18at 00:11; Admin Dose 500 MG; Start 08/09/18 at 14:30 Bisacodyl (Dulcolax Supp) 10 mg DAILY PRN CA CONSTIPATION; Start 08/13/18 at 15:00 Furosemide (Lasix) 40 mg DAILY PO Last administered on 08/19/18at 08:21; Admin Dose 40 MG; Start 08/17/18 at 15:00 Famotidine (Pepcid) 20 mg DAILY PO ; Start 08/22/18 at 09:00 Loperamide HCl (Imodium Cap) 2 mg QID PRN PO DIARRHEA; Start 08/21/18 at 16:00; Status UNV Loperamide HCl (Imodium Cap) 4 mg NOW ONCE PO ; Start 08/21/18 at 16:00; Stop 08/21/18 at 16:01; Status UNV Lactobacillus Acidophilus/ Rhamnosus (Culturelle) 1 cap BID PO ; Start 08/21/18 at 21:00; Status UNV Results Result Diagram: 08/21/18 1021 08/21/18 1021 Results 24 hrs Laboratory Tests Test 08/20/18 17:44 08/20/18 20:38 08/21/18 08:49 08/21/18 10:21 Bedside Glucose 126 167 97 White Blood 9.5 Count Red Blood Count 4.56 Hemoglobin 11.8 L Hematocrit 39.6 Mean Corpuscular 86.8 Volume Mean Corpuscular 25.9 L Hemoglobin Mean Corpuscular 29.8 L Hemoglobin Elsy nt Red Cell 16.3 H Distribution Width Platelet Count 341 Mean Platelet 9.6 Volume Immature 0.500 H Granulocytes % Neutrophils % 58.8 Lymphocytes % 28.4 Monocytes % 6.9 Eosinophils % 4.3 Basophils % 1.1 Nucleated Red 0.0 Blood Cells % Immature 0.050 H Granulocytes # Neutrophils # 5.6 Lymphocytes # 2.7 Monocytes # 0.7 Eosinophils # 0.4 Basophils # 0.1 Nucleated Red 0.0 Blood Cells # Sodium Level 139 Potassium Level 5.4 H Chloride Level 106 Carbon Dioxide 28 Level Anion Gap 5 Blood Urea 46 H Nitrogen Creatinine 3.35 H Est Glomerular 14 L Filtrat Rate mL/min Glucose Level 116 Calcium Level 8.7 Test 08/21/18 12:40 Bedside Glucose 106 KOFI SWANN MD Aug 21, 2018 16:20
[2018-08-21] MEDS: ONDANSETRON 4 MG INJ IV PRN (22:17)
[2018-08-21] MEDS: LACTOBACILLUS RHAMNOSUS CAP PO SCH (22:18)
[2018-08-22 00:04] VITALS: BP 142/67; PULSE 81; RESP 16
[2018-08-22] MEDS: MELATONIN 3 MG TABLET PO PRN ×2 (00:06→22:24)
[2018-08-22] MEDS: traMADol 50 MG TAB PO PRN ×4 (00:07→20:36)
[2018-08-22] MEDS: ACCU-CHEK XX SCH (02:00)
[2018-08-22] MEDS: INSULIN ASPART [NOVOLOG] 3 ML PEN SC SCH ×4 (07:50→22:19)
[2018-08-22] MEDS: PATIROMER CALCIUM SORBITEX 16.8 GM PKT PO SCH (08:45)
[2018-08-22] MEDS: ARTIFICIAL TEARS 15 ML OPH BOTH EYES SCH ×4 (08:45→22:17)
[2018-08-22] MEDS: DICLOFENAC SODIUM 1% GEL 100 GM TUBE TP SCH ×4 (08:46→22:17)
[2018-08-22] MEDS: FUROSEMIDE 40 MG TAB PO SCH (08:46)
[2018-08-22] MEDS: ALLOPURINOL 100 MG TAB PO SCH (08:46)
[2018-08-22] MEDS: BALSAM PERU/CASTOR OIL 60 GM TUBE TOP SCH ×2 (08:46→22:17)
[2018-08-22] MEDS ORDERED: HEPARIN 5,000 UNIT/0.5 ML VIAL ONE ×2 (09:01→21:03)
[2018-08-22 09:04] VITALS: BP 180/86; PULSE 84; RESP 17
[2018-08-22] MEDS: LACTOBACILLUS RHAMNOSUS CAP PO SCH ×2 (09:36→22:16)
[2018-08-22] MEDS: FAMOTIDINE 20 MG TAB PO SCH (09:37)
[2018-08-22] MEDS: HEPARIN 5,000 UNIT/1 ML VIAL SC SCH ×2 (09:38→22:18)
[2018-08-22] MEDS: ONDANSETRON 4 MG INJ IV PRN (12:12)
[2018-08-22 12:27] VITALS: BP 111/53; PULSE 90; RESP 17
--- NOTE | 2018-08-22 12:34 | PN ---
Date/Time of Note Date/Time of Note DATE: 08/22/18 TIME: 12:33 Assessment/Plan VTE Prophylaxis Risk score (from Nsg)>0 risk: 8 SCD applied (from Ns): Yes SCD contraindicated: other Pharmacological prophylaxis: LMWH, heparin Lines/Catheters IV Catheter Type (from Nrs): (R)CHEST PERMACATH Urinary Cath still in place: No Assessment/Plan Hospital Course 58 y/o with 1. . ckd iii-iv now with the complications of hyperkalemia, patient has been refusing Kayexalate Veltassa has also been refusing dialysis, patient was explained the risks and consequences and patient completely understands the risks and consequences, now agreed, hyperkalemia 6 yesterday butr refusing interventions 2. c diff hx 3. Chronic kidney disease, 4. Morbid obesity. 5. Diabetes. 6. Hypertension, 7. Gout.hx 8. Neuropathy. 9. History of congestive heart failure. 10 weakness 11 deconditioning 13 Left shoulde pain, TTP ? Frozen shoulder , shoulder impingement 14 s/p Fall ? AMS confusion likley due to UTI 15 uti klebsiella and enterococcus 16 diarrhea Plan - check c diff uncollected - imodium - Lactobacillus - cw with PT - HD todau -- pt refused cortisone injecion per ortho - Wound care - US with thrombosed graft - Ortho consult however patient refused a cortisone shot - avoid narcotics as it would limit her ability to walk for PT as it happened last admission since pts goal is Physical therapy - low k diet -cw home hydralazine -tyenolol on as needed headache Home health nurse /home PT Subjective 24 Hr Interval Summary Free Text/Dictation Diarrhea resolved Exam/Review of Systems Vital Signs Vitals Vital Signs Date Temp Pulse Resp B/P (MAP) Pulse Ox O2 O2 Flow FiO2 Time Delivery Rate 08/22/18 97.8 90 17 111/53 92 Room Air 12:27 (72) 08/21/18 2.0 12:30 Intake and Output 08/21/18 08/21/18 08/22/18 1515:00 23:00 07:00 IntakeIntake Total 840 ml 360 ml OutputOutput Total 1801 ml BalanceBalance -961 ml 360 ml Exam right chest permcath Constitutional: alert, oriented Respiratory: clear to auscultation Cardiovascular: regular rate and rhythm Gastrointestinal: soft Medications Medications Current Medications Acetaminophen (Tylenol Tab) 325 mg Q4H PRN PO MILD PAIN(1-3)OR ELEVATED TEMP Last administered on 08/14/18at 17:29; Admin Dose 325 MG; Start 07/20/18 at 23:00 Allopurinol (Zyloprim) 100 mg DAILY PO Last administered on 08/19/18 08:21; Admin Dose 100 MG; Start 07/21/18 at 09:00 IV Flush (NS 3 ml) 3 ml PER PROTOCOL IV ; Start 07/20/18 at 23:00 Ondansetron HCl (Zofran Inj) 4 mg Q6H PRN IV NAUSEA AND/OR VOMITING Last administered on 08/22/18 12:12; Admin Dose 4 MG; Start 07/20/18 at 23:00 Acetaminophen (Tylenol Tab) 650 mg Q6H PRN PO PAIN LEVEL 1-3 OR FEVER Last administered on 08/21/18at 01:16; Admin Dose 650 MG; Start 07/20/18 at 23:00 Acetaminophen (Tylenol Supp) 650 mg Q6H PRN [place] PAIN LEVEL 1-3 OR FEVER; Start 07/20/18 at 23:00 Docusate Sodium (Colace) 100 mg Q12H PRN PO CONSTIPATION Last administered on 08/18/18 08:32; Admin Dose 100 MG; Start 07/20/18 at 23:00 Bisacodyl (Dulcolax) 5 mg DAILY PRN PO CONSTIPATION Last administered on 08/14/18 06:24; Admin Dose 5 MG; Start 07/20/18 at 23:00 Diagnostic Test (Pha) (Accu-Chek) 1 ea 02 XX Last administered on 08/12/18at 02:28; Admin Dose 1 EA; Start 07/21/18 at 02:00 Insulin Aspart (Novolog Insulin Pen) NOVOLOG *MILD* ALGORITHM WITH MEALS BEDTIME SC Last administered on 08/18/18 08:27; Admin Dose 1 UNIT; Start 07/21/18 at 07:50 Ergocalciferol (Drisdol) 50,000 unit Lacy@0900 PO Last administered on 08/14/18at 10:26; Admin Dose 50,000 UNIT; Start 07/24/18 at 09:00 Miscellaneous Information 1 ea NOTE XX ; Start 07/20/18 at 23:00 Glucose (Glutose) 15 gm Q15M PRN PO DECREASED GLUCOSE; Start 07/20/18 at 23:00 Glucose (Glutose) 22.5 gm Q15M PRN PO DECREASED GLUCOSE; Start 07/20/18 at 23:00 Dextrose (D50w Syringe) 25 ml Q15M PRN IV DECREASED GLUCOSE; Start 07/20/18 at 23:00 Dextrose (D50w Syringe) 50 ml Q15M PRN IV DECREASED GLUCOSE; Start 07/20/18 at 23:00 Glucagon (Glucagen) 1 mg Q15M PRN IM DECREASED GLUCOSE; Start 07/20/18 at 23:00 Glucose (Glutose) 15 gm Q15M PRN BUCCAL DECREASED GLUCOSE; Start 07/20/18 at 23:00 Melatonin (Melatonin) 3 mg HS PRN PO INSOMNIA Last administered on 08/22/18at 00:06; Admin Dose 3 MG; Start 07/20/18 at 23:00 Heparin Sodium (Porcine) 5,000 unit Q12 SC Last administered on 08/22/18at 09:38; Admin Dose 5,000 UNIT; Start 07/21/18 at 21:00 Diclofenac Sodium (Voltaren 1% Gel) 2 gm QID TP Last administered on 08/21/18at 22:18; Admin Dose 2 GM; Start 07/22/18 at 13:00 Tramadol HCl (Ultram) 100 mg Q6H PRN PO PAIN LEVEL 6-10 Last administered on 08/22/18at 06:41; Admin Dose 100 MG; Start 07/27/18 at 17:00 Patiromer (Veltassa) 16.8 gm DAILY PO Last administered on 08/07/18at 08:52; Admin Dose 16.8 GM; Start 07/31/18 at 09:00 Guaifenesin/ Dextromethorphan (Robitussin Dm Liquid Cup) 10 ml Q4H PRN PO COUGH; Start 07/30/18 at 15:00 Heparin Sodium (Porcine) (Heparin (1000 Units/ml)) 4,000 unit AFTER DIALYSIS CATHETER Last administered on 08/21/18at 11:42; Admin Dose 4,700 UNIT; Start 07/31/18 at 18:00 Albumin Human 50 ml @ 100 mls/hr WITH DIALYSIS PRN IV SBP < 90 DURING DIALYSIS Last administered on 08/01/18 22:17; Admin Dose 100 MLS/HR; Start 07/31/18 at 18:00 Sodium Chloride (NS) -To prime the dialy... DIRECTED FOR HD PRN IV HD; Start 07/31/18 at 18:00 Loratadine (Claritin) 10 mg DAILY PRN PO ALLERGIC REACTION Last administered on 08/07/18at 12:48; Admin Dose 10 MG; Start 08/07/18 at 12:30 Hydralazine HCl (Apresoline) 10 mg Q6H PRN PO ELEVATED BLOOD PRESSURE Last administered on 08/21/18 02:06; Admin Dose 10 MG; Start 08/08/18 at 04:30 Hydralazine HCl (Apresoline) 25 mg TID PO Last administered on 08/22/18at 09:36; Admin Dose 25 MG; Start 08/08/18 at 13:00 Eye Lubricant (Artificial Tears Oph) 2 drop QID BOTH EYES Last administered on 08/20/18at 20:38; Admin Dose 2 DROP; Start 08/09/18 at 11:00 Calcium Carbonate (Tums) 500 mg PRN PRN PO HEARTBURN Last administered on 08/18/18at 00:11; Admin Dose 500 MG; Start 08/09/18 at 14:30 Bisacodyl (Dulcolax Supp) 10 mg DAILY PRN [place] CONSTIPATION; Start 08/13/18 at 15:00 Furosemide (Lasix) 40 mg DAILY PO Last administered on 08/19/18at 08:21; Admin Dose 40 MG; Start 08/17/18 at 15:00 Famotidine (Pepcid) 20 mg DAILY PO Last administered on 08/22/18at 09:37; Admin Dose 20 MG; Start 08/22/18 at 09:00 Loperamide HCl (Imodium Cap) 2 mg QID PRN PO DIARRHEA; Start 08/21/18 at 16:00 Lactobacillus Acidophilus/ Rhamnosus (Culturelle) 1 cap BID PO Last administered on 08/22/18at 09:36; Admin Dose 1 CAP; Start 08/21/18 at 21:00 Results Result Diagram: 08/22/18 0935 08/21/18 1021 Results 24 hrs Laboratory Tests Test 08/21/18 12:40 08/21/18 16:57 08/21/18 22:14 08/22/18 08:27 Bedside Glucose 106 118 124 129 Test 08/22/18 09:35 08/22/18 12:24 White Blood 11.8 #H Count Red Blood Count 4.71 Hemoglobin 12.1 Hematocrit 41.7 Mean Corpuscular 88.5 Volume Mean Corpuscular 25.7 L Hemoglobin Mean Corpuscular 29.0 L Hemoglobin Elsy nt Red Cell 16.6 H Distribution Width Platelet Count 330 Mean Platelet 9.8 Volume Immature 0.400 Granulocytes % Neutrophils % 62.5 Lymphocytes % 25.4 Monocytes % 7.2 Eosinophils % 3.7 Basophils % 0.8 Nucleated Red 0.0 Blood Cells % Immature 0.050 H Granulocytes # Neutrophils # 7.3 Lymphocytes # 3.0 H Monocytes # 0.9 Eosinophils # 0.4 Basophils # 0.1 Nucleated Red 0.0 Blood Cells # Bedside Glucose 135 KOFI SWANN MD Aug 22, 2018 12:34
[2018-08-22 20:40] VITALS: BP 134/85; PULSE 80
[2018-08-22 20:45] VITALS: PULSE 90; RESP 19
[2018-08-23] MEDS: ACCU-CHEK XX SCH ×2 (01:54→20:54)
[2018-08-23 02:48] VITALS: BP 184/85; PULSE 84; RESP 18
[2018-08-23] MEDS: traMADol 50 MG TAB PO PRN ×3 (03:04→17:48)
[2018-08-23] MEDS: INSULIN ASPART [NOVOLOG] 3 ML PEN SC SCH ×4 (07:50→20:06)
[2018-08-23] MEDS ORDERED: HEPARIN 5,000 UNIT/0.5 ML VIAL ONE ×2 (08:14→20:00)
[2018-08-23] MEDS: ARTIFICIAL TEARS 15 ML OPH BOTH EYES SCH ×4 (08:57→20:04)
[2018-08-23] MEDS: FUROSEMIDE 40 MG TAB PO SCH (08:58)
[2018-08-23] MEDS: LACTOBACILLUS RHAMNOSUS CAP PO SCH ×2 (08:58→20:03)
[2018-08-23] MEDS: ALLOPURINOL 100 MG TAB PO SCH (08:59)
[2018-08-23] MEDS: FAMOTIDINE 20 MG TAB PO SCH (08:59)
[2018-08-23] MEDS: PATIROMER CALCIUM SORBITEX 16.8 GM PKT PO SCH (09:00)
[2018-08-23] MEDS: BALSAM PERU/CASTOR OIL 60 GM TUBE TOP SCH ×2 (09:00→20:04)
[2018-08-23] MEDS: DICLOFENAC SODIUM 1% GEL 100 GM TUBE TP SCH ×4 (09:00→20:04)
[2018-08-23] MEDS: HEPARIN 5,000 UNIT/1 ML VIAL SC SCH ×2 (09:03→20:08)
--- NOTE | 2018-08-23 13:49 | PN ---
Date/Time of Note Date/Time of Note DATE: 08/23/18 TIME: 13:48 Assessment/Plan VTE Prophylaxis Risk score (from Ns)>0 risk: 6 SCD applied (from Ns): No SCD contraindicated: other Pharmacological prophylaxis: heparin Lines/Catheters IV Catheter Type (from [facility]): perma cath Urinary Cath still in place: No Assessment/Plan Hospital Course 58 y/o with 1. . ckd iii-iv now with the complications of hyperkalemia, patient has been refusing Kayexalate Veltassa has also been refusing dialysis, patient was explained the risks and consequences and patient completely understands the risks and consequences, now agreed, hyperkalemia 6 yesterday butr refusing interventions 2. c diff hx 3. Chronic kidney disease, 4. Morbid obesity. 5. Diabetes. 6. Hypertension, 7. Gout.hx 8. Neuropathy. 9. History of congestive heart failure. 10 weakness 11 deconditioning 13 Left shoulde pain, TTP ? Frozen shoulder , shoulder impingement 14 s/p Fall ? [facility] to [facility] 15 uti klebsiella and enterococcus 16 diarrhea Plan - imodium - Lactobacillus - cw with PT - HD ? k 5.0 TODAY -- pt refused cortisone injecion per ortho - Wound care - US with thrombosed graft - Ortho consult however patient refused a cortisone shot - avoid narcotics as it would limit her ability to walk for PT as it happened last admission since pts goal is Physical therapy - low k diet -cw home hydralazine -tyenolol on as needed headache Pt would like to explore snif near her Subjective 24 Hr Interval Summary Free Text/Dictation Pt working with PT Exam/Review of Systems Vital Signs Vitals Vital Signs Date Temp Pulse Resp B/P (MAP) Pulse Ox O2 O2 Flow FiO2 Time Delivery Rate 08/23/18 97.5 84 18 184/85 92 02:48 (118) 08/22/18 Room Air 12:27 08/21/18 2.0 12:30 Intake and Output 08/22/18 08/22/18 08/23/18 1515:00 23:00 07:00 IntakeIntake Total 320 ml OutputOutput Total 2 ml BalanceBalance 318 ml Exam right chest permcath Constitutional: alert, oriented Respiratory: clear to auscultation Cardiovascular: regular rate and rhythm Gastrointestinal: soft Medications Medications Current Medications Acetaminophen (Tylenol Tab) 325 mg Q4H PRN PO MILD PAIN(1-3)OR ELEVATED TEMP Last administered on 08/14/18at 17:29; Admin Dose 325 MG; Start 07/20/18 at 23:00 Allopurinol (Zyloprim) 100 mg DAILY PO Last administered on 08/23/18at 08:59; Admin Dose 100 MG; Start 07/21/18 at 09:00 IV Flush (NS 3 ml) 3 ml PER PROTOCOL IV ; Start 07/20/18 at 23:00 Ondansetron HCl (Zofran Inj) 4 mg Q6H PRN IV NAUSEA AND/OR VOMITING Last administered on 08/22/18 12:12; Admin Dose 4 MG; Start 07/20/18 at 23:00 Acetaminophen (Tylenol Tab) 650 mg Q6H PRN PO PAIN LEVEL 1-3 OR FEVER Last administered on 08/21/18at 01:16; Admin Dose 650 MG; Start 07/20/18 at 23:00 Acetaminophen (Tylenol Supp) 650 mg Q6H PRN [place] PAIN LEVEL 1-3 OR FEVER; Start 07/20/18 at 23:00 Docusate Sodium (Colace) 100 mg Q12H PRN PO CONSTIPATION Last administered on 08/18/18 08:32; Admin Dose 100 MG; Start 07/20/18 at 23:00 Bisacodyl (Dulcolax) 5 mg DAILY PRN PO CONSTIPATION Last administered on 08/14/18 06:24; Admin Dose 5 MG; Start 07/20/18 at 23:00 Diagnostic Test (Pha) (Accu-Chek) 1 ea 02 XX Last administered on 08/12/18at 02:28; Admin Dose 1 EA; Start 07/21/18 at 02:00 Insulin Aspart (Novolog Insulin Pen) NOVOLOG *MILD* ALGORITHM WITH MEALS BEDT PREET SC Last administered on 08/18/18at 08:27; Admin Dose 1 UNIT; Start 07/21/18 at 07:50 Ergocalciferol (Drisdol) 50,000 unit Lacy@0900 PO Last administered on 08/14/18at 10:26; Admin Dose 50,000 UNIT; Start 07/24/18 at 09:00 Miscellaneous Information 1 ea NOTE XX ; Start 07/20/18 at 23:00 Glucose (Glutose) 15 gm Q15M PRN PO DECREASED GLUCOSE; Start 07/20/18 at 23:00 Glucose (Glutose) 22.5 gm Q15M PRN PO DECREASED GLUCOSE; Start 07/20/18 at 23:00 Dextrose (D50w Syringe) 25 ml Q15M PRN IV DECREASED GLUCOSE; Start 07/20/18 at 23:00 Dextrose (D50w Syringe) 50 ml Q15M PRN IV DECREASED GLUCOSE; Start 07/20/18 at 23:00 Glucagon (Glucagen) 1 mg Q15M PRN IM DECREASED GLUCOSE; Start 07/20/18 at 23:00 Glucose (Glutose) 15 gm Q15M PRN BUCCAL DECREASED GLUCOSE; Start 07/20/18 at 23:00 Melatonin (Melatonin) 3 mg HS PRN PO INSOMNIA Last administered on 08/22/18at 22:24; Admin Dose 3 MG; Start 07/20/18 at 23:00 Heparin Sodium (Porcine) 5,000 unit Q12 SC Last administered on 08/23/18at 09:03; Admin Dose 5,000 UNIT; Start 07/21/18 at 21:00 Diclofenac Sodium (Voltaren 1% Gel) 2 gm QID TP Last administered on 08/22/18at 22:17; Admin Dose 2 GM; Start 07/22/18 at 13:00 Tramadol HCl (Ultram) 100 mg Q6H PRN PO PAIN LEVEL 6-10 Last administered on 08/23/18at 08:59; Admin Dose 100 MG; Start 07/27/18 at 17:00 Patiromer (Veltassa) 16.8 gm DAILY PO Last administered on 08/07/18at 08:52; Admin Dose 16.8 GM; Start 07/31/18 at 09:00 Guaifenesin/ Dextromethorphan (Robitussin Dm Liquid Cup) 10 ml Q4H PRN PO COUGH; Start 07/30/18 at 15:00 Heparin Sodium (Porcine) (Heparin (1000 Units/ml)) 4,000 unit AFTER DIALYSIS CATHETER Last administered on 08/21/18at 11:42; Admin Dose 4,700 UNIT; Start 07/31/18 at 18:00 Albumin Human 50 ml @ 100 mls/hr WITH DIALYSIS PRN IV SBP < 90 DURING DIALYSIS Last administered on 08/01/18 22:17; Admin Dose 100 MLS/HR; Start 07/31/18 at 18:00 Sodium Chloride (NS) -To prime the dialy... DIRECTED FOR HD PRN IV HD; Start 07/31/18 at 18:00 Loratadine (Claritin) 10 mg DAILY PRN PO ALLERGIC REACTION Last administered on 08/07/18 12:48; Admin Dose 10 MG; Start 08/07/18 at 12:30 Hydralazine HCl (Apresoline) 10 mg Q6H PRN PO ELEVATED BLOOD PRESSURE Last administered on 08/21/18 02:06; Admin Dose 10 MG; Start 08/08/18 at 04:30 Hydralazine HCl (Apresoline) 25 mg TID PO Last administered on 08/23/18 08:57; Admin Dose 25 MG; Start 08/08/18 at 13:00 Eye Lubricant (Artificial Tears Oph) 2 drop QID BOTH EYES Last administered on 08/22/18at 22:17; Admin Dose 2 DROP; Start 08/09/18 at 11:00 Calcium Carbonate (Tums) 500 mg PRN PRN PO HEARTBURN Last administered on 08/18/18at 00:11; Admin Dose 500 MG; Start 08/09/18 at 14:30 Bisacodyl (Dulcolax Supp) 10 mg DAILY PRN [place] CONSTIPATION; Start 08/13/18 at 15:00 Furosemide (Lasix) 40 mg DAILY PO Last administered on 08/23/18at 08:58; Admin Dose 40 MG; Start 08/17/18 at 15:00 Famotidine (Pepcid) 20 mg DAILY PO Last administered on 08/23/18at 08:59; Admin Dose 20 MG; Start 08/22/18 at 09:00 Loperamide HCl (Imodium Cap) 2 mg QID PRN PO DIARRHEA; Start 08/21/18 at 16:00 Lactobacillus Acidophilus/ Rhamnosus (Culturelle) 1 cap BID PO Last administered on 08/23/18at 08:58; Admin Dose 1 CAP; Start 08/21/18 at 21:00 Results Result Diagram: 08/22/18 0935 08/23/18 1020 Results 24 hrs Laboratory Tests Test 08/22/18 17:59 08/22/18 22:12 08/23/18 08:56 08/23/18 10:20 Bedside Glucose 148 170 96 Sodium Level 139 Potassium Level 5.0 Chloride Level 103 Carbon Dioxide 26 Level Anion Gap 10 # Blood Urea 33 #H Nitrogen Creatinine 3.55 H Est Glomerular 13 L Filtrat Rate mL/min Glucose Level 113 Calcium Level 8.8 Test 08/23/18 13:14 Bedside Glucose 98 KOFI SWANN MD Aug 23, 2018 13:49
[2018-08-23 19:27] VITALS: BP 100/58; PULSE 91; RESP 18
[2018-08-24] MEDS: traMADol 50 MG TAB PO PRN ×4 (01:08→23:36)
[2018-08-24] MEDS: MELATONIN 3 MG TABLET PO PRN ×2 (01:08→23:41)
[2018-08-24 02:37] VITALS: BP 133/63; PULSE 89; RESP 18
[2018-08-24 08:29] VITALS: BP 160/73; PULSE 87
[2018-08-24] MEDS ORDERED: HEPARIN 5,000 UNIT/0.5 ML VIAL ONE ×2 (08:50→23:33)
[2018-08-24] MEDS: ONDANSETRON 4 MG INJ IV PRN (08:55)
[2018-08-24] MEDS: BALSAM PERU/CASTOR OIL 60 GM TUBE TOP SCH ×2 (08:59→23:35)
[2018-08-24] MEDS: DICLOFENAC SODIUM 1% GEL 100 GM TUBE TP SCH ×4 (08:59→23:35)
[2018-08-24] MEDS: ARTIFICIAL TEARS 15 ML OPH BOTH EYES SCH ×4 (08:59→23:35)
[2018-08-24] MEDS: FUROSEMIDE 40 MG TAB PO SCH ×2 (09:00→09:02)
[2018-08-24] MEDS: PATIROMER CALCIUM SORBITEX 16.8 GM PKT PO SCH (09:00)
[2018-08-24] MEDS: LACTOBACILLUS RHAMNOSUS CAP PO SCH ×3 (09:00→23:36)
[2018-08-24] MEDS: FAMOTIDINE 20 MG TAB PO SCH (09:01)
[2018-08-24] MEDS: ALLOPURINOL 100 MG TAB PO SCH (09:01)
[2018-08-24] MEDS: HEPARIN 5,000 UNIT/1 ML VIAL SC SCH ×2 (09:05→23:38)
[2018-08-24] MEDS: INSULIN ASPART [NOVOLOG] 3 ML PEN SC SCH ×4 (09:29→23:47)
[2018-08-24] MEDS ORDERED: traMADol 50 MG TAB PO ONE (13:00)
--- NOTE | 2018-08-24 13:24 | PN ---
Date/Time of Note Date/Time of Note DATE: 08/24/18 TIME: 13:16 Assessment/Plan VTE Prophylaxis Risk score (from Ns)>0 risk: 4 SCD applied (from Ns): No SCD contraindicated: other Pharmacological prophylaxis: heparin Lines/Catheters IV [facility] permacath Urinary Cath still in place: No Assessment/Plan Hospital Course 58 y/o with 1. . ckd iii-iv now with the complications of hyperkalemia, patient has been refusing Kayexalate Veltassa has also been refusing dialysis, patient was explained the risks and consequences and patient completely understands the risks and consequences, now agreed, hyperkalemia 6 yesterday butr refusing interventions 2. c diff hx 3. Chronic kidney disease, 4. Morbid obesity. 5. Diabetes. 6. Hypertension, 7. Gout.hx 8. Neuropathy. 9. History of congestive heart failure. 10 weakness 11 deconditioning 13 Left shoulde pain, TTP ? Frozen shoulder , shoulder impingement 14 s/p Fall ? AMS confusion likley due to UTI 15 uti klebsiella and enterococcus 16 diarrhea 15 vomtiing/? contipation Plan - check LFT, lipase -stool softners - imodium - Lactobacillus - cw with PT -- pt refused cortisone injecion per ortho - Wound care - US with thrombosed graft - Ortho consult however patient refused a cortisone shot - avoid narcotics as it would limit her ability to walk for PT as it happened last admission since pts goal is Physical therapy - low k diet -cw home hydralazine -tyenolol on as needed headache Pt would like to explore snif near her Subjective 24 Hr Interval Summary Free Text/Dictation some nausea this am, with vomting last BM 3 days ago Exam/Review of Systems Vital Signs Vitals Vital Signs Date Temp Pulse Resp B/P (MAP) Pulse Ox O2 O2 Flow FiO2 Time Delivery Rate 08/24/18 97.5 87 160/73 94 Room Air 08:29 (102) 08/24/18 18 02:37 08/21/18 2.0 12:30 Intake and Output 08/23/18 08/23/18 08/24/18 1414:59 22:59 06:59 IntakeIntake Total 400 ml BalanceBalance 400 ml Exam ight chest permcath Constitutional: alert, oriented Respiratory: clear to auscultation Cardiovascular: regular rate and rhythm Gastrointestinal: soft Medications Medications Current Medications Acetaminophen (Tylenol Tab) 325 mg Q4H PRN PO MILD PAIN(1-3)OR ELEVATED TEMP Last administered on 08/14/18 17:29; Admin Dose 325 MG; Start 07/20/18 at 23:00 Allopurinol (Zyloprim) 100 mg DAILY PO Last administered on 08/24/18 09:01; Admin Dose 100 MG; Start 07/21/18 at 09:00 IV Flush (NS 3 ml) 3 ml PER PROTOCOL IV ; Start 07/20/18 at 23:00 Ondansetron HCl (Zofran Inj) 4 mg Q6H PRN IV NAUSEA AND/OR VOMITING Last administered on 08/24/18 08:55; Admin Dose 4 MG; Start 07/20/18 at 23:00 Acetaminophen (Tylenol Tab) 650 mg Q6H PRN PO PAIN LEVEL 1-3 OR FEVER Last a dministered on 08/21/18 01:16; Admin Dose 650 MG; Start 07/20/18 at 23:00 Acetaminophen (Tylenol Supp) 650 mg Q6H PRN [place] PAIN LEVEL 1-3 OR FEVER; Start 07/20/18 at 23:00 Docusate Sodium (Colace) 100 mg Q12H PRN PO CONSTIPATION Last administered on 08/18/18 08:32; Admin Dose 100 MG; Start 07/20/18 at 23:00 Bisacodyl (Dulcolax) 5 mg DAILY PRN PO CONSTIPATION Last administered on 08/14/18 06:24; Admin Dose 5 MG; Start 07/20/18 at 23:00 Diagnostic Test (Pha) (Accu-Chek) 1 ea 02 XX Last administered on 08/12/18 02:28; Admin Dose 1 EA; Start 07/21/18 at 02:00 Insulin Aspart (Novolog Insulin Pen) NOVOLOG *MILD* ALGORITHM WITH MEALS BEDTIME SC Last administered on 08/18/18 08:27; Admin Dose 1 UNIT; Start 07/21/18 at 07:50 Ergocalciferol (Drisdol) 50,000 unit Lacy@0900 PO Last administered on 08/14/18 10:26; Admin Dose 50,000 UNIT; Start 07/24/18 at 09:00 Miscellaneous Information 1 ea NOTE XX ; Start 07/20/18 at 23:00 Glucose (Glutose) 15 gm Q15M PRN PO DECREASED GLUCOSE; Start 07/20/18 at 23:00 Glucose (Glutose) 22.5 gm Q15M PRN PO DECREASED GLUCOSE; Start 07/20/18 at 23:00 Dextrose (D50w Syringe) 25 ml Q15M PRN IV DECREASED GLUCOSE; Start 07/20/18 at 23:00 Dextrose (D50w Syringe) 50 ml Q15M PRN IV DECREASED GLUCOSE; Start 07/20/18 at 23:00 Glucagon (Glucagen) 1 mg Q15M PRN IM DECREASED GLUCOSE; Start 07/20/18 at 23:00 Glucose (Glutose) 15 gm Q15M PRN BUCCAL DECREASED GLUCOSE; Start 07/20/18 at 23:00 Melatonin (Melatonin) 3 mg HS PRN PO INSOMNIA Last administered on 08/24/18at 01:08; Admin Dose 3 MG; Start 07/20/18 at 23:00 Heparin Sodium (Porcine) 5,000 unit Q12 SC Last administered on 08/24/18at 09:05; Admin Dose 5,000 UNIT; Start 07/21/18 at 21:00 Diclofenac Sodium (Voltaren 1% Gel) 2 gm QID TP Last administered on 08/24/18at 08:59; Admin Dose 2 GM; Start 07/22/18 at 13:00 Tramadol HCl (Ultram) 100 mg Q6H PRN PO PAIN LEVEL 6-10 Last administered on 08/24/18at 08:54; Admin Dose 100 MG; Start 07/27/18 at 17:00 Patiromer (Veltassa) 16.8 gm DAILY PO Last administered on 08/07/18at 08:52; Admin Dose 16.8 GM; Start 07/31/18 at 09:00 Guaifenesin/ Dextromethorphan (Robitussin Dm Liquid Cup) 10 ml Q4H PRN PO COUGH; Start 07/30/18 at 15:00 Heparin Sodium (Porcine) (Heparin (1000 Units/ml)) 4,000 unit AFTER DIALYSIS CATHETER Last administered on 08/21/18at 11:42; Admin Dose 4,700 UNIT; Start 07/31/18 at 18:00 Albumin Human 50 ml @ 100 mls/hr WITH DIALYSIS PRN IV SBP < 90 DURING DIALYSIS Last administered on 08/01/18at 22:17; Admin Dose 100 MLS/HR; Start 07/31/18 at 18:00 Sodium Chloride (NS) -To prime the dialy... DIRECTED FOR HD PRN IV HD; Start 07/31/18 at 18:00 Loratadine (Claritin) 10 mg DAILY PRN PO ALLERGIC REACTION Last administered on 08/07/18at 12:48; Admin Dose 10 MG; Start 08/07/18 at 12:30 Hydralazine HCl (Apresoline) 10 mg Q6H PRN PO ELEVATED BLOOD PRESSURE Last administered on 08/21/18at 02:06; Admin Dose 10 MG; Start 08/08/18 at 04:30 Hydralazine HCl (Apresoline) 25 mg TID PO Last administered on 08/24/18at 09:01; Admin Dose 25 MG; Start 08/08/18 at 13:00 Eye Lubricant (Artificial Tears Oph) 2 drop QID BOTH EYES Last administered on 08/24/18at 08:59; Admin Dose 2 DROP; Start 08/09/18 at 11:00 Calcium Carbonate (Tums) 500 mg PRN PRN PO HEARTBURN Last administered on 08/18/18at 00:11; Admin Dose 500 MG; Start 08/09/18 at 14:30 Bisacodyl (Dulcolax Supp) 10 mg DAILY PRN [place] CONSTIPATION; Start 08/13/18 at 15:00 Furosemide (Lasix) 40 mg DAILY PO Last administered on 08/24/18at 09:02; Admin Dose 40 MG; Start 08/17/18 at 15:00 Famotidine (Pepcid) 20 mg DAILY PO Last administered on 08/24/18at 09:01; Admin Dose 20 MG; Start 08/22/18 at 09:00 Loperamide HCl (Imodium Cap) 2 mg QID PRN PO DIARRHEA; Start 08/21/18 at 16:00 Lactobacillus Acidophilus/ Rhamnosus (Culturelle) 1 cap BID PO Last administered on 08/24/18at 09:01; Admin Dose 1 CAP; Start 08/21/18 at 21:00 Results Result Diagram: 08/22/18 0935 08/23/18 1020 Results 24 hrs Laboratory Tests Test 08/23/18 17:55 08/23/18 20:05 08/24/18 09:27 08/24/18 12:52 Bedside Glucose 158 165 107 125 KOFI SWANN MD Aug 24, 2018 13:24
[2018-08-24] MEDS ORDERED: DOCUSATE SODIUM 100 MG CAP PO ONE (13:30)
[2018-08-24 14:00] VITALS: BP 140/70; PULSE 88; RESP 18
[2018-08-24 20:30] VITALS: BP 135/61; PULSE 80; RESP 19
[2018-08-25] MEDS: ACCU-CHEK XX SCH (01:51)
[2018-08-25 02:05] VITALS: BP 137/63; PULSE 89; RESP 19
[2018-08-25] MEDS: traMADol 50 MG TAB PO PRN ×3 (05:40→18:56)
[2018-08-25] MEDS ORDERED: HEPARIN 5,000 UNIT/0.5 ML VIAL ONE ×2 (08:41→20:36)
[2018-08-25] MEDS: PATIROMER CALCIUM SORBITEX 16.8 GM PKT PO SCH (09:00)
[2018-08-25] MEDS: LACTOBACILLUS RHAMNOSUS CAP PO SCH ×2 (09:00→20:55)
[2018-08-25] MEDS: CALCIUM CARBONATE 500 MG CHEW TAB PO PRN (09:39)
[2018-08-25] MEDS: FAMOTIDINE 20 MG TAB PO SCH (09:41)
[2018-08-25] MEDS: ALLOPURINOL 100 MG TAB PO SCH (09:41)
[2018-08-25] MEDS: FUROSEMIDE 40 MG TAB PO SCH (09:44)
[2018-08-25] MEDS: ARTIFICIAL TEARS 15 ML OPH BOTH EYES SCH ×4 (09:44→20:55)
[2018-08-25] MEDS: DICLOFENAC SODIUM 1% GEL 100 GM TUBE TP SCH ×4 (09:45→20:55)
[2018-08-25] MEDS: BALSAM PERU/CASTOR OIL 60 GM TUBE TOP SCH ×2 (09:45→20:55)
[2018-08-25] MEDS: INSULIN ASPART [NOVOLOG] 3 ML PEN SC SCH ×4 (09:47→21:00)
[2018-08-25] MEDS: HEPARIN 5,000 UNIT/1 ML VIAL SC SCH ×2 (09:47→21:00)
[2018-08-25 10:46] VITALS: BP 174/85; PULSE 85
--- NOTE | 2018-08-25 11:23 | PN ---
Date/Time of Note Date/Time of Note DATE: 08/25/18 TIME: : Assessment/Plan VTE Prophylaxis Risk score (from Ns)>0 risk: 6 SCD applied (from Ns): No SCD contraindicated: other Pharmacological prophylaxis: heparin Lines/Catheters IV [facility]from [facility] PERMACATH. Urinary Cath still in place: No Assessment/Plan Hospital Course 58 y/o with 1. . ckd iii-iv now with the complications of hyperkalemia, patient has been refusing Kayexalate Veltassa has also been refusing dialysis, patient was explained the risks and consequences and patient completely understands the risks and consequences, now agreed, hyperkalemia 6 yesterday butr refusing interventions 2. c diff hx 3. Chronic kidney disease, 4. Morbid obesity. 5. Diabetes. 6. Hypertension, 7. Gout.hx 8. Neuropathy. 9. History of congestive heart failure. 10 weakness 11 deconditioning 13 Left shoulde pain, TTP ? Frozen shoulder , shoulder impingement 14 s/p Fall ? AMS confusion likley due to UTI 15 uti klebsiella and enterococcus 16 diarrhea 15 vomtiing/? contipation> refuse labs again Plan - check LFT, lipase> refused labs> nausea vomiting much improved -stool softners - Lactobacillus - cw with PT -- pt refused cortisone injecion per ortho - Wound care - US with thrombosed graft - Ortho consult however patient refused a cortisone shot - avoid narcotics as it would limit her ability to walk for PT as it happened last admission since pts goal is Physical therapy - low k diet -cw home hydralazine -tyenolol on as needed headache Pt would like to explore snif near her, talk to CM Subjective 24 Hr Interval Summary Free Text/Dictation No new events. Refused labs this morning Exam/Review of Systems Vital Signs Vitals Vital Signs Date Temp Pulse Resp B/P (MAP) Pulse Ox O2 O2 Flow FiO2 Time Delivery Rate 08/25/18 98.1 85 174/85 93 Room Air 10:46 (114) 08/25/18 19 02:05 08/21/18 2.0 12:30 Intake and Output 08/24/18 08/24/18 08/25/18 1515:00 23:00 07:00 IntakeIntake Total 490 ml 320 ml BalanceBalance 490 ml 320 ml Exam ight chest permcath Constitutional: alert, oriented Respiratory: clear to auscultation Cardiovascular: regular rate and rhythm Gastrointestinal: soft Medications Medications Current Medications Acetaminophen (Tylenol Tab) 325 mg Q4H PRN PO MILD PAIN(1-3)OR ELEVATED TEMP Last administered on 08/14/18 17:29; Admin Dose 325 MG; Start 07/20/18 at 23:00 Allopurinol (Zyloprim) 100 mg DAILY PO Last administered on 08/25/18 09:41; Admin Dose 100 MG; Start 07/21/18 at 09:00 IV Flush (NS 3 ml) 3 ml PER PROTOCOL IV ; Start 07/20/18 at 23:00 Ondansetron HCl (Zofran Inj) 4 mg Q6H PRN IV NAUSEA AND/OR VOMITING Last administered on 08/24/18 08:55; Admin Dose 4 MG; Start 07/20/18 at 23:00 Acetaminophen (Tylenol Tab) 650 mg Q6H PRN PO PAIN LEVEL 1-3 OR FEVER Last administered on 08/21/18 01:16; Admin Dose 650 MG; Start 07/20/18 at 23:00 Acetaminophen (Tylenol Supp) 650 mg Q6H PRN [place] PAIN LEVEL 1-3 OR FEVER; Start 07/20/18 at 23:00 Docusate Sodium (Colace) 100 mg Q12H PRN PO CONSTIPATION Last administered on 08/18/18 08:32; Admin Dose 100 MG; Start 07/20/18 at 23:00 Bisacodyl (Dulcolax) 5 mg DAILY PRN PO CONSTIPATION Last administered on 08/14/18 06:24; Admin Dose 5 MG; Start 07/20/18 at 23:00 Diagnostic Test (Pha) (Accu-Chek) 1 ea 02 XX Last administered on 08/12/18 02:28; Admin Dose 1 EA; Start 07/21/18 at 02:00 Insulin Aspart (Novolog Insulin Pen) NOVOLOG *MILD* ALGORITHM WITH MEALS BEDTIME SC Last administered on 08/25/18 09:47; Admin Dose 1 UNIT; Start 07/21/18 at 07:50 Ergocalciferol (Drisdol) 50,000 unit Lacy@0900 PO Last administered on 08/14/18 10:26; Admin Dose 50,000 UNIT; Start 07/24/18 at 09:00 Miscellaneous Information 1 ea NOTE XX ; Start 07/20/18 at 23:00 Glucose (Glutose) 15 gm Q15M PRN PO DECREASED GLUCOSE; Start 07/20/18 at 23:00 Glucose (Glutose) 22.5 gm Q15M PRN PO DECREASED GLUCOSE; Start 07/20/18 at 23:00 Dextrose (D50w Syringe) 25 ml Q15M PRN IV DECREASED GLUCOSE; Start 07/20/18 at 23:00 Dextrose (D50w Syringe) 50 ml Q15M PRN IV DECREASED GLUCOSE; Start 07/20/18 at 23:00 Glucagon (Glucagen) 1 mg Q15M PRN IM DECREASED GLUCOSE; Start 07/20/18 at 23:00 Glucose (Glutose) 15 gm Q15M PRN BUCCAL DECREASED GLUCOSE; Start 07/20/18 at 23:00 Melatonin (Melatonin) 3 mg HS PRN PO INSOMNIA Last administered on 08/24/18at 2 3:41; Admin Dose 3 MG; Start 07/20/18 at 23:00 Heparin Sodium (Porcine) 5,000 unit Q12 SC Last administered on 08/25/18at 09:47; Admin Dose 5,000 UNIT; Start 07/21/18 at 21:00 Diclofenac Sodium (Voltaren 1% Gel) 2 gm QID TP Last administered on 08/25/18at 09:45; Admin Dose 2 GM; Start 07/22/18 at 13:00 Tramadol HCl (Ultram) 100 mg Q6H PRN PO PAIN LEVEL 6-10 Last administered on 08/25/18at 05:40; Admin Dose 100 MG; Start 07/27/18 at 17:00 Patiromer (Veltassa) 16.8 gm DAILY PO Last administered on 08/07/18at 08:52; Admin Dose 16.8 GM; Start 07/31/18 at 09:00 Guaifenesin/ Dextromethorphan (Robitussin Dm Liquid Cup) 10 ml Q4H PRN PO COUGH; Start 07/30/18 at 15:00 Heparin Sodium (Porcine) (Heparin (1000 Units/ml)) 4,000 unit AFTER DIALYSIS CATHETER Last administered on 08/21/18at 11:42; Admin Dose 4,700 UNIT; Start 07/31/18 at 18:00 Albumin Human 50 ml @ 100 mls/hr WITH DIALYSIS PRN IV SBP < 90 DURING DIALYSIS Last administered on 08/01/18at 22:17; Admin Dose 100 MLS/HR; Start 07/31/18 at 18:00 Sodium Chloride (NS) -To prime the dialy... DIRECTED FOR HD PRN IV HD; Start 07/31/18 at 18:00 Loratadine (Claritin) 10 mg DAILY PRN PO ALLERGIC REACTION Last administered on 08/07/18at 12:48; Admin Dose 10 MG; Start 08/07/18 at 12:30 Hydralazine HCl (Apresoline) 10 mg Q6H PRN PO ELEVATED BLOOD PRESSURE Last administered on 08/21/18at 02:06; Admin Dose 10 MG; Start 08/08/18 at 04:30 Hydralazine HCl (Apresoline) 25 mg TID PO Last administered on 08/25/18at 09:43; Admin Dose 25 MG; Start 08/08/18 at 13:00 Eye Lubricant (Artificial Tears Oph) 2 drop QID BOTH EYES Last administered on 08/25/18at 09:44; Admin Dose 2 DROP; Start 08/09/18 at 11:00 Calcium Carbonate (Tums) 500 mg PRN PRN PO HEARTBURN Last administered on 08/25/18at 09:39; Admin Dose 500 MG; Start 08/09/18 at 14:30 Bisacodyl (Dulcolax Supp) 10 mg DAILY PRN [place] CONSTIPATION; Start 08/13/18 at 15:00 Furosemide (Lasix) 40 mg DAILY PO Last administered on 08/25/18at 09:44; Admin Dose 40 MG; Start 08/17/18 at 15:00 Famotidine (Pepcid) 20 mg DAILY PO Last administered on 08/25/18at 09:41; Admin Dose 20 MG; Start 08/22/18 at 09:00 Loperamide HCl (Imodium Cap) 2 mg QID PRN PO DIARRHEA; Start 08/21/18 at 16:00 Lactobacillus Acidophilus/ Rhamnosus (Culturelle) 1 cap BID PO Last administered on 08/24/18at 23:36; Admin Dose 1 CAP; Start 08/21/18 at 21:00 Results Result Diagram: 08/22/18 0935 08/23/18 1020 Results 24 hrs Laboratory Tests Test 08/24/18 12:52 08/24/18 17:51 08/24/18 23:47 08/25/18 09:09 Bedside Glucose 125 156 143 153 KOFI SWANN MD Aug 25, 2018 11:23
[2018-08-25 16:02] VITALS: BP 149/66; PULSE 85; RESP 20
[2018-08-25 21:00] VITALS: BP 123/59; PULSE 86; RESP 18
[2018-08-25] MEDS: DOCUSATE SODIUM 100 MG CAP PO PRN (21:28)
[2018-08-25] MEDS: MELATONIN 3 MG TABLET PO PRN (21:29)
[2018-08-26] MEDS: ACCU-CHEK XX SCH ×2 (00:03→22:28)
[2018-08-26 02:00] VITALS: BP 147/75; PULSE 74; RESP 18
[2018-08-26] MEDS: traMADol 50 MG TAB PO PRN ×3 (03:00→18:24)
[2018-08-26] MEDS: INSULIN ASPART [NOVOLOG] 3 ML PEN SC SCH ×4 (07:50→21:00)
[2018-08-26] MEDS ORDERED: HEPARIN 5,000 UNIT/0.5 ML VIAL ONE ×2 (08:47→20:24)
[2018-08-26] MEDS: PATIROMER CALCIUM SORBITEX 16.8 GM PKT PO SCH (09:00)
[2018-08-26] MEDS: LACTOBACILLUS RHAMNOSUS CAP PO SCH ×2 (09:03→21:28)
[2018-08-26] MEDS: ARTIFICIAL TEARS 15 ML OPH BOTH EYES SCH ×4 (09:03→21:28)
[2018-08-26] MEDS: ALLOPURINOL 100 MG TAB PO SCH (09:03)
[2018-08-26] MEDS: FUROSEMIDE 40 MG TAB PO SCH (09:04)
[2018-08-26 09:05] VITALS: BP 140/70; PULSE 65; RESP 18
[2018-08-26] MEDS: HEPARIN 5,000 UNIT/1 ML VIAL SC SCH ×2 (09:13→21:34)
[2018-08-26] MEDS: BALSAM PERU/CASTOR OIL 60 GM TUBE TOP SCH ×2 (09:14→21:26)
[2018-08-26] MEDS: DICLOFENAC SODIUM 1% GEL 100 GM TUBE TP SCH ×4 (09:15→21:25)
[2018-08-26] MEDS: FAMOTIDINE 20 MG TAB PO SCH (09:16)
[2018-08-26 14:51] VITALS: BP 171/86; PULSE 80; RESP 14
--- NOTE | 2018-08-26 15:54 | PN ---
Date/Time of Note Date/Time of Note DATE: 08/26/18 TIME: 15:52 Assessment/Plan VTE Prophylaxis Risk score (from Ns)>0 risk: 4 [place] [facility] [place] Pharmacological prophylaxis: NA/contraindicated Pharm contraindication: bleeding Lines/Catheters IV [facility]from [facility] perma cath Urinary Cath still in place: No Assessment/Plan Hospital Course 1. ckd, hyperkalemia 2. c diff hx 3. Opiates dependency 4. Morbid obesity. 5. Diabetes. 6. Hypertension, 7. Gout, hx 8. Neuropathy. 9. History of congestive heart failure. 10. weakness 11. deconditioning 12. Non compliance, pt refused Valtessa, HD 13. Left shoulder chronic pain. Xray was reviewed from the last visit, it is arthrosis left acromioclavicular joint 14. constipation Assessment/Plan - check LFT, lipase> refused labs> nausea vomiting much improved -stool softners - Lactobacillus - cw with PT -- pt refused cortisone injection per ortho - Wound care - US with thrombosed graft - Ortho consult however patient refused a cortisone shot - avoid narcotics as it would limit her ability to walk for PT as it happened last admission since pts goal is Physical therapy - low k diet -cw home hydralazine -Tylenol on as needed headache Subjective 24 Hr Interval Summary Gastrointestinal: no complaints Exam/Review of Systems Vital Signs Vitals Vital Signs Date Temp Pulse Resp B/P (MAP) Pulse Ox O2 O2 Flow FiO2 Time Delivery Rate 08/26/18 97.9 80 14 171/86 98 Room Air 14:51 (114) Intake and Output 08/25/18 08/25/18 08/26/18 1515:00 23:00 07:00 IntakeIntake Total 200 ml 200 ml BalanceBalance 200 ml 200 ml Exam right chest Permcath Constitutional: alert, oriented Neck: supple Cardiovascular: regular rate and rhythm Gastrointestinal: soft Medications Medications Current Medications Acetaminophen (Tylenol Tab) 325 mg Q4H PRN PO MILD PAIN(1-3)OR ELEVATED TEMP Last administered on 08/14/18at 17:29; Admin Dose 325 MG; Start 07/20/18 at 2 3:00 Allopurinol (Zyloprim) 100 mg DAILY PO Last administered on 08/26/18at 09:03; Admin Dose 100 MG; Start 07/21/18 at 09:00 IV Flush (NS 3 ml) 3 ml PER PROTOCOL IV ; Start 07/20/18 at 23:00 Ondansetron HCl (Zofran Inj) 4 mg Q6H PRN IV NAUSEA AND/OR VOMITING Last administered on 08/24/18at 08:55; Admin Dose 4 MG; Start 07/20/18 at 23:00 Acetaminophen (Tylenol Tab) 650 mg Q6H PRN PO PAIN LEVEL 1-3 OR FEVER Last administered on 08/21/18at 01:16; Admin Dose 650 MG; Start 07/20/18 at 23:00 Acetaminophen (Tylenol Supp) 650 mg Q6H PRN [place] PAIN LEVEL 1-3 OR FEVER; Start 07/20/18 at 23:00 Docusate Sodium (Colace) 100 mg Q12H PRN PO CONSTIPATION Last administered on 08/25/18at 21:28; Admin Dose 100 MG; Start 07/20/18 at 23:00 Bisacodyl (Dulcolax) 5 mg DAILY PRN PO CONSTIPATION Last administered on 08/14/18at 06:24; Admin Dose 5 MG; Start 07/20/18 at 23:00 Diagnostic Test (Pha) (Accu-Chek) 1 ea 02 XX Last administered on 08/12/18at 02:28; Admin Dose 1 EA; Start 07/21/18 at 02:00 Insulin Aspart (Novolog Insulin Pen) NOVOLOG *MILD* ALGORITHM WITH MEALS BEDTIME SC Last administered on 08/26/18at 12:40; Admin Dose 1 UNIT; Start 07/21/18 at 07:50 Ergocalciferol (Drisdol) 50,000 unit Lacy@0900 PO Last administered on 08/14/18at 10:26; Admin Dose 50,000 UNIT; Start 07/24/18 at 09:00 Miscellaneous Information 1 ea NOTE XX ; Start 07/20/18 at 23:00 Glucose (Glutose) 15 gm Q15M PRN PO DECREASED GLUCOSE; Start 07/20/18 at 23:00 Glucose (Glutose) 22.5 gm Q15M PRN PO DECREASED GLUCOSE; Start 07/20/18 at 23:00 Dextrose (D50w Syringe) 25 ml Q15M PRN IV DECREASED GLUCOSE; Start 07/20/18 at 23:00 Dextrose (D50w Syringe) 50 ml Q15M PRN IV DECREASED GLUCOSE; Start 07/20/18 at 23:00 Glucagon (Glucagen) 1 mg Q15M PRN IM DECREASED GLUCOSE; Start 07/20/18 at 23:00 Glucose (Glutose) 15 gm Q15M PRN BUCCAL DECREASED GLUCOSE; Start 07/20/18 at 23:00 Melatonin (Melatonin) 3 mg HS PRN PO INSOMNIA Last administered on 08/25/18 21:29; Admin Dose 3 MG; Start 07/20/18 at 23:00 Heparin Sodium (Porcine) 5,000 unit Q12 SC Last administered on 08/26/18 09:13; Admin Dose 5,000 UNIT; Start 07/21/18 at 21:00 Diclofenac Sodium (Voltaren 1% Gel) 2 gm QID TP Last administered on 08/26/18 14:47; Admin Dose 2 GM; Start 07/22/18 at 13:00 Tramadol HCl (Ultram) 100 mg Q6H PRN PO PAIN LEVEL 6-10 Last administered on 08/26/18 12:31; Admin Dose 100 MG; Start 07/27/18 at 17:00 Patiromer (Veltassa) 16.8 gm DAILY PO Last administered on 08/07/18 08:52; Admin Dose 16.8 GM; Start 07/31/18 at 09:00 Guaifenesin/ Dextromethorphan (Robitussin Dm Liquid Cup) 10 ml Q4H PRN PO COUGH; Start 07/30/18 at 15:00 Heparin Sodium (Porcine) (Heparin (1000 Units/ml)) 4,000 unit AFTER DIALYSIS CATHETER Last administered on 08/21/18at 11:42; Admin Dose 4,700 UNIT; Start 07/31/18 at 18:00 Albumin Human 50 ml @ 100 mls/hr WITH DIALYSIS PRN IV SBP < 90 DURING DIALYSIS Last administered on 08/01/18 22:17; Admin Dose 100 MLS/HR; Start 07/31/18 at 18:00 Sodium Chloride (NS) -To prime the dialy... DIRECTED FOR HD PRN IV HD; Start 07/31/18 at 18:00 Loratadine (Claritin) 10 mg DAILY PRN PO ALLERGIC REACTION Last administered on 08/07/18 12:48; Admin Dose 10 MG; Start 08/07/18 at 12:30 Hydralazine HCl (Apresoline) 10 mg Q6H PRN PO ELEVATED BLOOD PRESSURE Last administered on 08/21/18 02:06; Admin Dose 10 MG; Start 08/08/18 at 04:30 Hydralazine HCl (Apresoline) 25 mg TID PO Last administered on 08/26/18 14:47; Admin Dose 25 MG; Start 08/08/18 at 13:00 Eye Lubricant (Artificial Tears Oph) 2 drop QID BOTH EYES Last administered on 08/26/18 09:03; Admin Dose 2 DROP; Start 08/09/18 at 11:00 Calcium Carbonate (Tums) 500 mg PRN PRN PO HEARTBURN Last administered on 08/25/18 09:39; Admin Dose 500 MG; Start 08/09/18 at 14:30 Bisacodyl (Dulcolax Supp) 10 mg DAILY PRN [place] CONSTIPATION; Start 08/13/18 at 15:00 Furosemide (Lasix) 40 mg DAILY PO Last administered on 08/26/18 09:04; Admin Dose 40 MG; Start 08/17/18 at 15:00 Famotidine (Pepcid) 20 mg DAILY PO Last administered on 08/26/18 09:16; Admin Dose 20 MG; Start 08/22/18 at 09:00 Loperamide HCl (Imodium Cap) 2 mg QID PRN PO DIARRHEA; Start 08/21/18 at 16:00 Lactobacillus Acidophilus/ Rhamnosus (Culturelle) 1 cap BID PO Last administered on 08/26/18 09:03; Admin Dose 1 CAP; Start 08/21/18 at 21:00 Results Result Diagram: 08/22/1835 08/25/18 1648 Results 24 hrs Laboratory Tests Test 08/25/18 16:48 08/25/18 17:50 08/25/18 20:57 08/26/18 09:01 Sodium Level 144 Potassium Level 5.2 H Chloride Level 104 Carbon Dioxide 28 Level Anion Gap 12 Blood Urea 45 H Nitrogen Creatinine 4.00 H Est Glomerular 11 L Filtrat Rate mL/min Glucose Level 146 Calcium Level 8.8 Total Bilirubin 0.2 Direct Bilirubin 0.00 Indirect 0.2 Bilirubin Aspartate Amino 37 Transf (AST/SGOT ) Alanine 18 Aminotransferase (ALT/SGPT) Alkaline 78 Phosphatase Total Protein 7.8 Albumin 3.4 Globulin 4.40 H Albumin/Globulin 0.77 Ratio Lipase 36 Bedside Glucose 137 166 120 Test 08/26/18 12:34 Bedside Glucose 164 WILLY MEDEIROS Aug 26, 2018 15:54
[2018-08-26 20:02] VITALS: BP 149/79; PULSE 83; RESP 18
[2018-08-27] MEDS: traMADol 50 MG TAB PO PRN ×5 (00:14→23:55)
[2018-08-27 02:16] VITALS: BP 145/75; PULSE 80; RESP 18
[2018-08-27] MEDS ORDERED: HEPARIN 5,000 UNIT/0.5 ML VIAL ONE ×2 (08:18→20:26)
[2018-08-27] MEDS: INSULIN ASPART [NOVOLOG] 3 ML PEN SC SCH ×4 (08:45→21:00)
[2018-08-27] MEDS: FAMOTIDINE 20 MG TAB PO SCH (08:56)
[2018-08-27] MEDS: FUROSEMIDE 40 MG TAB PO SCH (08:57)
[2018-08-27] MEDS: LACTOBACILLUS RHAMNOSUS CAP PO SCH ×2 (08:57→21:10)
[2018-08-27] MEDS: ALLOPURINOL 100 MG TAB PO SCH (08:57)
[2018-08-27] MEDS: DICLOFENAC SODIUM 1% GEL 100 GM TUBE TP SCH ×4 (08:58→21:12)
[2018-08-27] MEDS: BALSAM PERU/CASTOR OIL 60 GM TUBE TOP SCH ×2 (08:58→21:12)
[2018-08-27] MEDS: ARTIFICIAL TEARS 15 ML OPH BOTH EYES SCH ×4 (08:58→21:10)
[2018-08-27] MEDS: HEPARIN 5,000 UNIT/1 ML VIAL SC SCH ×2 (09:00→21:14)
[2018-08-27] MEDS: PATIROMER CALCIUM SORBITEX 16.8 GM PKT PO SCH (09:00)
--- NOTE | 2018-08-27 13:06 | PN ---
Date/Time of Note Date/Time of Note DATE: 08/27/18 TIME: 12:53 Assessment/Plan VTE Prophylaxis Risk score (from Ns)>0 risk: 3 SCD applied (from Ns): Yes Pharmacological prophylaxis: heparin Lines/Catheters IV Catheter Type (from [facility]): PERM-A-CATH Urinary Cath still in place: No Assessment/Plan Hospital Course 1. ckd, hyperkalemia 2. c diff hx 3. Opiates dependency 4. Morbid obesity. 5. Diabetes. 6. Hypertension, 7. Gout, hx 8. Neuropathy. 9. History of congestive heart failure. 10. weakness 11. deconditioning 12. Non compliance, pt refused Valtessa, HD 13. Left shoulder chronic pain. Xray was reviewed from the last visit, it is arthrosis left acromioclavicular joint 14. constipation Assessment/Plan - check LFT, lipase> refused labs> nausea vomiting much improved -stool softeners. - Lactobacillus - cw with PT -- pt refused cortisone injection per ortho - Wound care - US with thrombosed graft - Ortho consult however patient refused a cortisone shot - avoid narcotics as it would limit her ability to walk for PT as it happened last admission since pts goal is Physical therapy - low k diet -cw home hydralazine -Tylenol on as needed headache Subjective 24 Hr Interval Summary Free Text/Dictation weakness Musculoskeletal: restricted range of motion (left shoulder shot) Exam/Review of Systems Vital Signs Vitals Vital Signs Date Temp Pulse Resp B/P (MAP) Pulse Ox O2 O2 Flow FiO2 Time Delivery Rate 08/27/18 98.3 80 18 145/75 93 02:16 (98) 08/26/18 Room Air 14:51 Intake and Output 08/26/18 08/26/18 08/27/18 1515:00 23:00 07:00 IntakeIntake Total 320 ml BalanceBalance 320 ml Exam right Perm cath Constitutional: alert, oriented Neck: supple Respiratory: clear to auscultation Cardiovascular: regular rate and rhythm Medications Medications Current Medications Acetaminophen (Tylenol Tab) 325 mg Q4H PRN PO MILD PAIN(1-3)OR ELEVATED TEMP Last administered on 08/14/18at 17:29; Admin Dose 325 MG; Start 07/20/18 at 23:00 Allopurinol (Zyloprim) 100 mg DAILY PO Last administered on 08/27/18at 08:57; Admin Dose 100 MG; Start 07/21/18 at 09:00 IV Flush (NS 3 ml) 3 ml PER PROTOCOL IV ; Start 07/20/18 at 23:00 Ondansetron HCl (Zofran Inj) 4 mg Q6H PRN IV NAUSEA AND/OR VOMITING Last administered on 08/24/18at 08:55; Admin Dose 4 MG; Start 07/20/18 at 23:00 Acetaminophen (Tylenol Tab) 650 mg Q6H PRN PO PAIN LEVEL 1-3 OR FEVER Last administered on 08/21/18at 01:16; Admin Dose 650 MG; Start 07/20/18 at 23:00 Acetaminophen (Tylenol Supp) 650 mg Q6H PRN [place] PAIN LEVEL 1-3 OR FEVER; Start 07/20/18 at 23:00 Docusate Sodium (Colace) 100 mg Q12H PRN PO CONSTIPATION Last administered on 08/25/18at 21:28; Admin Dose 100 MG; Start 07/20/18 at 23:00 Bisacodyl (Dulcolax) 5 mg DAILY PRN PO CONSTIPATION Last administered on 08/14/18at 06:24; Admin Dose 5 MG; Start 07/20/18 at 23:00 Diagnostic Test (Pha) (Accu-Chek) 1 ea 02 XX Last administered on 08/12/18at 02:28; Admin Dose 1 EA; Start 07/21/18 at 02:00 Insulin Aspart (Novolog Insulin Pen) NOVOLOG *MILD* ALGORITHM WITH MEALS BEDTIME SC Last administered on 08/26/18at 12:40; Admin Dose 1 UNIT; Start 07/21/18 at 07:50 Ergocalciferol (Drisdol) 50,000 unit Lacy@0900 PO Last administered on 08/14/18at 10:26; Admin Dose 50,000 UNIT; Start 07/24/18 at 09:00 Miscellaneous Information 1 ea NOTE XX ; Start 07/20/18 at 23:00 Glucose (Glutose) 15 gm Q15M PRN PO DECREASED GLUCOSE; Start 07/20/18 at 23:00 Glucose (Glutose) 22.5 gm Q15M PRN PO DECREASED GLUCOSE; Start 07/20/18 at 23:00 Dextrose (D50w Syringe) 25 ml Q15M PRN IV DECREASED GLUCOSE; Start 07/20/18 at 23:00 Dextrose (D50w Syringe) 50 ml Q15M PRN IV DECREASED GLUCOSE; Start 07/20/18 at 23:00 Glucagon (Glucagen) 1 mg Q15M PRN IM DECREASED GLUCOSE; Start 07/20/18 at 23:00 Glucose (Glutose) 15 gm Q15M PRN BUCCAL DECREASED GLUCOSE; Start 07/20/18 at 23:00 Melatonin (Melatonin) 3 mg HS PRN PO INSOMNIA Last administered on 08/25/18at 21:29; Admin Dose 3 MG; Start 07/20/18 at 23:00 Heparin Sodium (Porcine) 5,000 unit Q12 SC Last administered on 08/27/18 09:00; Admin Dose 5,000 UNIT; Start 07/21/18 at 21:00 Diclofenac Sodium (Voltaren 1% Gel) 2 gm QID TP Last administered on 08/27/18 08:58; Admin Dose 2 GM; Start 07/22/18 at 13:00 Tramadol HCl (Ultram) 100 mg Q6H PRN PO PAIN LEVEL 6-10 Last administered on 08/27/18at 12:03; Admin Dose 100 MG; Start 07/27/18 at 17:00 Patiromer (Veltassa) 16.8 gm DAILY PO Last administered on 08/07/18at 08:52; Admin Dose 16.8 GM; Start 07/31/18 at 09:00 Guaifenesin/ Dextromethorphan (Robitussin Dm Liquid Cup) 10 ml Q4H PRN PO COUGH; Start 07/30/18 at 15:00 Heparin Sodium (Porcine) (Heparin (1000 Units/ml)) 4,000 unit AFTER DIALYSIS CATHETER Last administered on 08/21/18at 11:42; Admin Dose 4,700 UNIT; Start 07/31/18 at 18:00 Albumin Human 50 ml @ 100 mls/hr WITH DIALYSIS PRN IV SBP < 90 DURING DIALYSIS Last administered on 08/01/18at 22:17; Admin Dose 100 MLS/HR; Start 07/31/18 at 18:00 Sodium Chloride (NS) -To prime the dialy... DIRECTED FOR HD PRN IV HD; Start 07/31/18 at 18:00 Loratadine (Claritin) 10 mg DAILY PRN PO ALLERGIC REACTION Last administered on 08/07/18 12:48; Admin Dose 10 MG; Start 08/07/18 at 12:30 Hydralazine HCl (Apresoline) 10 mg Q6H PRN PO ELEVATED BLOOD PRESSURE Last administered on 08/21/18at 02:06; Admin Dose 10 MG; Start 08/08/18 at 04:30 Hydralazine HCl (Apresoline) 25 mg TID PO Last administered on 08/27/18 08:57; Admin Dose 25 MG; Start 08/08/18 at 13:00 Eye Lubricant (Artificial Tears Oph) 2 drop QID BOTH EYES Last administered on 08/27/18 08:58; Admin Dose 2 DROP; Start 08/09/18 at 11:00 Calcium Carbonate (Tums) 500 mg PRN PRN PO HEARTBURN Last administered on 08/25/18at 09:39; Admin Dose 500 MG; Start 08/09/18 at 14:30 Bisacodyl (Dulcolax Supp) 10 mg DAILY PRN [place] CONSTIPATION; Start 08/13/18 at 15:00 Furosemide (Lasix) 40 mg DAILY PO Last administered on 08/27/18 08:57; Admin Dose 40 MG; Start 08/17/18 at 15:00 Famotidine (Pepcid) 20 mg DAILY PO Last administered on 08/27/18 08:56; Admin Dose 20 MG; Start 08/22/18 at 09:00 Loperamide HCl (Imodium Cap) 2 mg QID PRN PO DIARRHEA; Start 08/21/18 at 16:00 Lactobacillus Acidophilus/ Rhamnosus (Culturelle) 1 cap BID PO Last administered on 08/27/18 08:57; Admin Dose 1 CAP; Start 08/21/18 at 21:00 Miscellaneous Information (*Order Clarification Bulletin) MEDICATION REQUIRES CLARIFICATI... Q8H XX ; Start 08/26/18 at 17:00 Results Result Diagram: 08/25/18 1648 Results 24 hrs Laboratory Tests Test 08/26/18 18:11 08/26/18 21:24 08/27/18 08:52 Bedside Glucose 104 123 105 WILLY MEDEIROS Aug 27, 2018 13:04
[2018-08-27] MEDS ORDERED: HYDROCODONE/APAP (7.5/325) TAB PO ONE (13:30)
[2018-08-27 20:37] VITALS: BP 137/63; PULSE 74; RESP 20
[2018-08-28] MEDS: ACCU-CHEK XX SCH (01:15)
[2018-08-28] MEDS: traMADol 50 MG TAB PO PRN ×3 (06:38→18:07)
[2018-08-28] MEDS: INSULIN ASPART [NOVOLOG] 3 ML PEN SC SCH ×4 (07:50→21:00)
[2018-08-28 08:01] VITALS: BP 137/75; PULSE 87; RESP 17
[2018-08-28] MEDS ORDERED: HEPARIN 5,000 UNIT/0.5 ML VIAL ONE ×2 (08:12→20:53)
[2018-08-28] MEDS: ARTIFICIAL TEARS 15 ML OPH BOTH EYES SCH ×5 (08:48→21:46)
[2018-08-28] MEDS: BALSAM PERU/CASTOR OIL 60 GM TUBE TOP SCH ×2 (08:48→22:00)
[2018-08-28] MEDS: DICLOFENAC SODIUM 1% GEL 100 GM TUBE TP SCH ×4 (08:49→22:00)
[2018-08-28] MEDS: FAMOTIDINE 20 MG TAB PO SCH (08:49)
[2018-08-28] MEDS: ALLOPURINOL 100 MG TAB PO SCH (08:49)
[2018-08-28] MEDS: FUROSEMIDE 40 MG TAB PO SCH (08:50)
[2018-08-28] MEDS: HEPARIN 5,000 UNIT/1 ML VIAL SC SCH ×2 (08:52→22:06)
[2018-08-28] MEDS: LACTOBACILLUS RHAMNOSUS CAP PO SCH ×3 (08:57→21:47)
[2018-08-28] MEDS: ERGOCALCIFEROL 50,000 UNIT CAP PO SCH (08:57)
[2018-08-28] MEDS: PATIROMER CALCIUM SORBITEX 16.8 GM PKT PO SCH (08:58)
[2018-08-28 14:59] VITALS: BP 118/75; PULSE 94; RESP 17
--- NOTE | 2018-08-28 17:35 | PN ---
Date/Time of Note Date/Time of Note DATE: 08/28/18 TIME: 17:32 Assessment/Plan VTE Prophylaxis Risk score (from Ns)>0 risk: 6 SCD applied (from [facility] [place] Yes Pharmacological prophylaxis: NA/contraindicated Pharm contraindication: patient refusal, other Lines/Catheters IV Catheter Type (from Nrsg): Central Line Central line still needed: Yes Urinary Cath still in place: No Assessment/Plan Hospital Course 1. ckd 2. c diff hx 3. Chronic kidney disease, 4. Morbid obesity. 5. Diabetes. 6. Hypertension, 7. Gout.hx 8. Neuropathy. 9. History of congestive heart failure. 10 weakness 11 deconditioning 12 hyperkalemia on hd 13 non compliancew meds and hd plan ck labs hd renal diet non compliancew hd ck labs Subjective 24 Hr Interval Summary Subjective hx not possible: other (refusing labs meds and hd) Respiratory: no complaints Cardiovascular: no complaints Exam/Review of Systems Vital Signs Vitals Vital Signs Date Temp Pulse Resp B/P (MAP) Pulse Ox O2 O2 Flow FiO2 Time Delivery Rate 08/28/18 98.1 94 17 118/75 95 Room Air 14:59 (89) Intake and Output 08/27/18 08/27/18 08/28/18 1515:00 23:00 07:00 IntakeIntake Total 400 ml 300 ml BalanceBalance 400 ml 300 ml Exam Neck: supple Respiratory: clear to auscultation Cardiovascular: regular rate and rhythm Gastrointestinal: soft, bowel sounds Extremities: edema (+) Medications Medications Current Medications Acetaminophen (Tylenol Tab) 325 mg Q4H PRN PO MILD PAIN(1-3)OR ELEVATED TEMP Last administered on 08/14/18at 17:29; Admin Dose 325 MG; Start 07/20/18 at 23:00 Allopurinol (Zyloprim) 100 mg DAILY PO Last administered on 08/28/18at 08:49; Admin Dose 100 MG; Start 07/21/18 at 09:00 IV Flush (NS 3 ml) 3 ml PER PROTOCOL IV ; Start 07/20/18 at 23:00 Ondansetron HCl (Zofran Inj) 4 mg Q6H PRN IV NAUSEA AND/OR VOMITING Last administered on 08/24/18at 08:55; Admin Dose 4 MG; Start 07/20/18 at 23:00 Acetaminophen (Tylenol Tab) 650 mg Q6H PRN PO PAIN LEVEL 1-3 OR FEVER Last administered on 08/21/18at 01:16; Admin Dose 650 MG; Start 07/20/18 at 23:00 Acetaminophen (Tylenol Supp) 650 mg Q6H PRN NC PAIN LEVEL 1-3 OR FEVER; Start 07/20/18 at 23:00 Docusate Sodium (Colace) 100 mg Q12H PRN PO CONSTIPATION Last administered on 08/25/18at 21:28; Admin Dose 100 MG; Start 07/20/18 at 23:00 Bisacodyl (Dulcolax) 5 mg DAILY PRN PO CONSTIPATION Last administered on 08/14/18at 06:24; Admin Dose 5 MG; Start 07/20/18 at 23:00 Diagnostic Test (Pha) (Accu-Chek) 1 ea 02 XX Last administered on 08/12/18at 02:28; Admin Dose 1 EA; Start 07/21/18 at 02:00 Insulin Aspart (Novolog Insulin Pen) NOVOLOG *MILD* ALGORITHM WITH MEALS BEDTIME SC Last administered on 08/26/18at 12:40; Admin Dose 1 UNIT; Start 07/21/18 at 07:50 Ergocalciferol (Drisdol) 50,000 unit Lacy@0900 PO Last administered on 08/14/18at 10:26; Admin Dose 50,000 UNIT; Start 07/24/18 at 09:00 Miscellaneous Information 1 ea NOTE XX ; Start 07/20/18 at 23:00 Glucose (Glutose) 15 gm Q15M PRN PO DECREASED GLUCOSE; Start 07/20/18 at 23:00 Glucose (Glutose) 22.5 gm Q15M PRN PO DECREASED GLUCOSE; Start 07/20/18 at 23:00 Dextrose (D50w Syringe) 25 ml Q15M PRN IV DECREASED GLUCOSE; Start 07/20/18 at 23:00 Dextrose (D50w Syringe) 50 ml Q15M PRN IV DECREASED GLUCOSE; Start 07/20/18 at 23:00 Glucagon (Glucagen) 1 mg Q15M PRN IM DECREASED GLUCOSE; Start 07/20/18 at 23:00 Glucose (Glutose) 15 gm Q15M PRN BUCCAL DECREASED GLUCOSE; Start 07/20/18 at 23:00 Melatonin (Melatonin) 3 mg HS PRN PO INSOMNIA Last administered on 08/25/18 21:29; Admin Dose 3 MG; Start 07/20/18 at 23:00 Heparin Sodium (Porcine) 5,000 unit Q12 SC Last administered on 08/28/18 08:52; Admin Dose 5,000 UNIT; Start 07/21/18 at 21:00 Diclofenac Sodium (Voltaren 1% Gel) 2 gm QID TP Last administered on 08/28/18 12:44; Admin Dose 2 GM; Start 07/22/18 at 13:00 Tramadol HCl (Ultram) 100 mg Q6H PRN PO PAIN LEVEL 6-10 Last administered on 08/28/18 12:36; Admin Dose 100 MG; Start 07/27/18 at 17:00 Patiromer (Veltassa) 16.8 gm DAILY PO Last administered on 08/07/18 08:52; Admin Dose 16.8 GM; Start 07/31/18 at 09:00 Guaifenesin/ Dextromethorphan (Robitussin Dm Liquid Cup) 10 ml Q4H PRN PO COUGH; Start 07/30/18 at 15:00 Heparin Sodium (Porcine) (Heparin (1000 Units/ml)) 4,000 unit AFTER DIALYSIS CATHETER Last administered on 08/21/18 11:42; Admin Dose 4,700 UNIT; Start 07/31/18 at 18:00 Albumin Human 50 ml @ 100 mls/hr WITH DIALYSIS PRN IV SBP < 90 DURING DIALYSIS Last administered on 08/01/18 22:17; Admin Dose 100 MLS/HR; Start 07/31/18 at 18:00 Sodium Chloride (NS) -To prime the dialy... DIRECTED FOR HD PRN IV HD; Start 07/31/18 at 18:00 Loratadine (Claritin) 10 mg DAILY PRN PO ALLERGIC REACTION Last administered on 08/07/18 12:48; Admin Dose 10 MG; Start 08/07/18 at 12:30 Hydralazine HCl (Apresoline) 10 mg Q6H PRN PO ELEVATED BLOOD PRESSURE Last administered on 08/21/18 02:06; Admin Dose 10 MG; Start 08/08/18 at 04:30 Hydralazine HCl (Apresoline) 25 mg TID PO Last administered on 08/28/18 12:42; Admin Dose 25 MG; Start 08/08/18 at 13:00 Eye Lubricant (Artificial Tears Oph) 2 drop QID BOTH EYES Last administered on 08/28/18at 12:43; Admin Dose 2 DROP; Start 08/09/18 at 11:00 Calcium Carbonate (Tums) 500 mg PRN PRN PO HEARTBURN Last administered on 08/25/18at 09:39; Admin Dose 500 MG; Start 08/09/18 at 14:30 Bisacodyl (Dulcolax Supp) 10 mg DAILY PRN NC CONSTIPATION; Start 08/13/18 at 15:00 Furosemide (Lasix) 40 mg DAILY PO Last administered on 08/28/18at 08:50; Admin Dose 40 MG; Start 08/17/18 at 15:00 Famotidine (Pepcid) 20 mg DAILY PO Last administered on 08/28/18at 08:49; Admin Dose 20 MG; Start 08/22/18 at 09:00 Loperamide HCl (Imodium Cap) 2 mg QID PRN PO DIARRHEA; Start 08/21/18 at 16:00 Lactobacillus Acidophilus/ Rhamnosus (Culturelle) 1 cap BID PO Last administered on 08/27/18at 21:10; Admin Dose 1 CAP; Start 08/21/18 at 21:00 Miscellaneous Information (*Order Clarification Bulletin) MEDICATION REQUIRES CLARIFICATI... Q8H XX ; Start 08/26/18 at 17:00 Nystatin (Nystatin Powder) 1 applic BID TOP ; Start 08/28/18 at 21:00 Results Result Diagram: 08/25/18 1648 Results 24 hrs Laboratory Tests Test 08/27/18 17:44 08/27/18 21:09 08/28/18 08:46 08/28/18 12:41 Bedside Glucose 147 152 114 99 BRIAN ROBLEDO MD Aug 28, 2018 17:35
[2018-08-28 20:05] VITALS: BP 112/62; PULSE 89; RESP 18
[2018-08-28] MEDS: NYSTATIN 30 GM POWDER BTL TOP SCH ×2 (21:00→22:00)
[2018-08-29] MEDS: traMADol 50 MG TAB PO PRN ×4 (00:27→19:49)
[2018-08-29] MEDS: MELATONIN 3 MG TABLET PO PRN ×2 (00:46→23:05)
[2018-08-29] MEDS: ACCU-CHEK XX SCH (02:00)
[2018-08-29] MEDS: INSULIN ASPART [NOVOLOG] 3 ML PEN SC SCH ×4 (07:50→20:56)
[2018-08-29] MEDS ORDERED: HEPARIN 5,000 UNIT/0.5 ML VIAL ONE ×2 (08:03→20:41)
[2018-08-29] MEDS: FAMOTIDINE 20 MG TAB PO SCH (08:09)
[2018-08-29] MEDS: ALLOPURINOL 100 MG TAB PO SCH (08:09)
[2018-08-29] MEDS: LACTOBACILLUS RHAMNOSUS CAP PO SCH ×2 (08:10→20:44)
[2018-08-29] MEDS: PATIROMER CALCIUM SORBITEX 16.8 GM PKT PO SCH (08:12)
[2018-08-29] MEDS: NYSTATIN 30 GM POWDER BTL TOP SCH ×2 (08:13→20:56)
[2018-08-29] MEDS: FUROSEMIDE 40 MG TAB PO SCH (08:13)
[2018-08-29] MEDS: ARTIFICIAL TEARS 15 ML OPH BOTH EYES SCH ×4 (08:16→20:55)
[2018-08-29] MEDS: HEPARIN 5,000 UNIT/1 ML VIAL SC SCH ×2 (08:22→20:49)
[2018-08-29] MEDS: DICLOFENAC SODIUM 1% GEL 100 GM TUBE TP SCH ×4 (08:26→20:56)
[2018-08-29] MEDS: BALSAM PERU/CASTOR OIL 60 GM TUBE TOP SCH ×2 (08:27→20:56)
[2018-08-29 08:34] VITALS: BP 142/84; PULSE 82; RESP 18
[2018-08-29] MEDS: ONDANSETRON 4 MG INJ IV PRN (08:58)
[2018-08-29 12:42] VITALS: BP 133/72; PULSE 91
--- NOTE | 2018-08-29 14:48 | PN ---
Date/Time of Note Date/Time of Note DATE: 08/29/18 TIME: 14:47 Assessment/Plan VTE Prophylaxis Risk score (from Ns)>0 risk: 5 SCD applied (from Ns): No SCD contraindicated: other Pharmacological prophylaxis: heparin Lines/Catheters IV Catheter Type (from [facility]): Perm-a-cath Urinary Cath still in place: No Assessment/Plan Hospital Course 58 y/o with 1. . ckd iii-iv now with the complications of hyperkalemia, patient has been refusing Kayexalate Veltassa has also been refusing dialysis, patient was explained the risks and consequences and patient completely understands the risks and consequences, now agreed, hyperkalemia 6 yesterday butr refusing interventions 2. c diff hx 3. Chronic kidney disease, 4. Morbid obesity. 5. Diabetes. 6. Hypertension, 7. Gout.hx 8. Neuropathy. 9. History of congestive heart failure. 10 weakness 11 deconditioning 13 Left shoulde pain, TTP ? Frozen shoulder , shoulder impingement 14 s/p Fall ? AMS confusion likley due to UTI 15 uti klebsiella and enterococcus 16 diarrhea 15 vomtiing/? contipation> refuse labs again Plan - check labs> pt refused thrice -stool softners - Lactobacillus - cw with PT -- pt refused cortisone injecion per ortho - Wound care - US with thrombosed graft - Ortho consult however patient refused a cortisone shot - avoid narcotics as it would limit her ability to walk for PT as it happened last admission since pts goal is Physical therapy - low k diet -cw home hydralazine -tyenolol on as needed headache Pt would like to explore snif near her, talk to CM, now considering home with PT Subjective 24 Hr Interval Summary Free Text/Dictation Patient refused labs today had some nausea but was able to eat her diet Exam/Review of Systems Vital Signs Vitals Vital Signs Date Temp Pulse Resp B/P (MAP) Pulse Ox O2 O2 Flow FiO2 Time Delivery Rate 08/29/18 91 133/72 12:42 (92) 08/29/18 99.4 18 94 Room Air 08:34 Intake and Output 08/28/18 08/28/18 08/29/18 1414:59 22:59 06:59 IntakeIntake Total 720 ml 680 ml 300 ml BalanceBalance 720 ml 680 ml 300 ml Exam ight chest permcath Constitutional: alert, oriented Respiratory: clear to auscultation Cardiovascular: regular rate and rhythm Gastrointestinal: soft Medications Medications Medications Current Medications Acetaminophen (Tylenol Tab) 325 mg Q4H PRN PO MILD PAIN(1-3)OR ELEVATED TEMP Last administered on 08/14/18 17:29; Admin Dose 325 MG; Start 07/20/18 at 23:00 Allopurinol (Zyloprim) 100 mg DAILY PO Last administered on 08/29/18 08:09; Admin Dose 100 MG; Start 07/21/18 at 09:00 IV Flush (NS 3 ml) 3 ml PER PROTOCOL IV ; Start 07/20/18 at 23:00 Ondansetron HCl (Zofran Inj) 4 mg Q6H PRN IV NAUSEA AND/OR VOMITING Last administered on 08/29/18 08:58; Admin Dose 4 MG; Start 07/20/18 at 23:00 Acetaminophen (Tylenol Tab) 650 mg Q6H PRN PO PAIN LEVEL 1-3 OR FEVER Last administered on 08/21/18 01:16; Admin Dose 650 MG; Start 07/20/18 at 23:00 Acetaminophen (Tylenol Supp) 650 mg Q6H PRN PA PAIN LEVEL 1-3 OR FEVER; Start 07/20/18 at 23:00 Docusate Sodium (Colace) 100 mg Q12H PRN PO CONSTIPATION Last administered on 08/25/18 21:28; Admin Dose 100 MG; Start 07/20/18 at 23:00 Bisacodyl (Dulcolax) 5 mg DAILY PRN PO CONSTIPATION Last administered on 08/14/18 06:24; Admin Dose 5 MG; Start 07/20/18 at 23:00 Diagnostic Test (Pha) (Accu-Chek) 1 ea 02 XX Last administered on 08/12/18 02:28; Admin Dose 1 EA; Start 07/21/18 at 02:00 Insulin Aspart (Novolog Insulin Pen) NOVOLOG *MILD* ALGORITHM WITH MEALS BEDTIME SC Last administered on 08/26/18 12:40; Admin Dose 1 UNIT; Start 07/21/18 at 07:50 Ergocalciferol (Drisdol) 50,000 unit Lacy@0900 PO Last administered on 08/14/18 10:26; Admin Dose 50,000 UNIT; Start 07/24/18 at 09:00 Miscellaneous Information 1 ea NOTE XX ; Start 07/20/18 at 23:00 Glucose (Glutose) 15 gm Q15M PRN PO DECREASED GLUCOSE; Start 07/20/18 at 23:00 Glucose (Glutose) 22.5 gm Q15M PRN PO DECREASED GLUCOSE; Start 07/20/18 at 23: 00 Dextrose (D50w Syringe) 25 ml Q15M PRN IV DECREASED GLUCOSE; Start 07/20/18 at 23:00 Dextrose (D50w Syringe) 50 ml Q15M PRN IV DECREASED GLUCOSE; Start 07/20/18 at 23:00 Glucagon (Glucagen) 1 mg Q15M PRN IM DECREASED GLUCOSE; Start 07/20/18 at 23:00 Glucose (Glutose) 15 gm Q15M PRN BUCCAL DECREASED GLUCOSE; Start 07/20/18 at 23:00 Melatonin (Melatonin) 3 mg HS PRN PO INSOMNIA Last administered on 08/29/18at 00:46; Admin Dose 3 MG; Start 07/20/18 at 23:00 Heparin Sodium (Porcine) 5,000 unit Q12 SC Last administered on 08/29/18at 08:22; Admin Dose 5,000 UNIT; Start 07/21/18 at 21:00 Diclofenac Sodium (Voltaren 1% Gel) 2 gm QID TP Last administered on 08/28/18at 22:00; Admin Dose 2 GM; Start 07/22/18 at 13:00 Tramadol HCl (Ultram) 100 mg Q6H PRN PO PAIN LEVEL 6-10 Last administered on 08/29/18at 13:24; Admin Dose 100 MG; Start 07/27/18 at 17:00 Patiromer (Veltassa) 16.8 gm DAILY PO Last administered on 08/07/18at 08:52; Admin Dose 16.8 GM; Start 07/31/18 at 09:00 Guaifenesin/ Dextromethorphan (Robitussin Dm Liquid Cup) 10 ml Q4H PRN PO COUGH; Start 07/30/18 at 15:00 Heparin Sodium (Porcine) (Heparin (1000 Units/ml)) 4,000 unit AFTER DIALYSIS CATHETER Last administered on 08/21/18at 11:42; Admin Dose 4,700 UNIT; Start 07/31/18 at 18:00 Albumin Human 50 ml @ 100 mls/hr WITH DIALYSIS PRN IV SBP < 90 DURING DIALYSIS Last administered on 08/01/18at 22:17; Admin Dose 100 MLS/HR; Start 07/31/18 at 18:00 Sodium Chloride (NS) -To prime the dialy... DIRECTED FOR HD PRN IV HD; Start 07/31/18 at 18:00 Loratadine (Claritin) 10 mg DAILY PRN PO ALLERGIC REACTION Last administered on 08/07/18at 12:48; Admin Dose 10 MG; Start 08/07/18 at 12:30 Hydralazine HCl (Apresoline) 10 mg Q6H PRN PO ELEVATED BLOOD PRESSURE Last administered on 08/21/18at 02:06; Admin Dose 10 MG; Start 08/08/18 at 04:30 Hydralazine HCl (Apresoline) 25 mg TID PO Last administered on 08/29/18at 08:13; Admin Dose 25 MG; Start 08/08/18 at 13:00 Eye Lubricant (Artificial Tears Oph) 2 drop QID BOTH EYES Last administered on 08/29/18at 08:16; Admin Dose 2 DROP; Start 08/09/18 at 11:00 Calcium Carbonate (Tums) 500 mg PRN PRN PO HEARTBURN Last administered on 08/25/18at 09:39; Admin Dose 500 MG; Start 08/09/18 at 14:30 Bisacodyl (Dulcolax Supp) 10 mg DAILY PRN [place] CONSTIPATION; Start 08/13/18 at 15:00 Furosemide (Lasix) 40 mg DAILY PO Last administered on 08/29/18at 08:13; Admin Dose 40 MG; Start 08/17/18 at 15:00 Famotidine (Pepcid) 20 mg DAILY PO Last administered on 08/29/18at 08:09; Admin Dose 20 MG; Start 08/22/18 at 09:00 Loperamide HCl (Imodium Cap) 2 mg QID PRN PO DIARRHEA; Start 08/21/18 at 16:00 Lactobacillus Acidophilus/ Rhamnosus (Culturelle) 1 cap BID PO Last administered on 08/27/18at 21:10; Admin Dose 1 CAP; Start 08/21/18 at 21:00 Miscellaneous Information (*Order Clarification Bulletin) MEDICATION REQUIRES CLARIFICATI... Q8H XX ; Start 08/26/18 at 17:00 Nystatin (Nystatin Powder) 1 applic BID TOP ; Start 08/28/18 at 21:00 Results Result Diagram: 08/25/18 1648 Results 24 hrs Laboratory Tests Test 08/28/18 17:35 08/28/18 21:57 08/29/18 08:20 08/29/18 12:25 Bedside Glucose 123 153 109 136 KOFI SWANN MD Aug 29, 2018 14:48
[2018-08-29 20:00] VITALS: BP 128/64; PULSE 80; RESP 18
[2018-08-30] MEDS: traMADol 50 MG TAB PO PRN ×5 (01:46→20:32)
[2018-08-30] MEDS: ACCU-CHEK XX SCH (02:00)
[2018-08-30 02:04] VITALS: BP 173/138; PULSE 84; RESP 18
[2018-08-30 02:15] VITALS: BP 184/81; RESP 20
[2018-08-30 05:44] VITALS: BP 140/63; PULSE 80; RESP 18
[2018-08-30] MEDS ORDERED: HEPARIN 5,000 UNIT/0.5 ML VIAL ONE ×2 (08:13→20:20)
[2018-08-30] MEDS: INSULIN ASPART [NOVOLOG] 3 ML PEN SC SCH ×4 (08:57→20:39)
[2018-08-30] MEDS: FAMOTIDINE 20 MG TAB PO SCH (08:58)
[2018-08-30] MEDS: FUROSEMIDE 40 MG TAB PO SCH (08:58)
[2018-08-30] MEDS: ALLOPURINOL 100 MG TAB PO SCH (08:59)
[2018-08-30] MEDS: LACTOBACILLUS RHAMNOSUS CAP PO SCH ×2 (09:00→20:43)
[2018-08-30] MEDS: PATIROMER CALCIUM SORBITEX 16.8 GM PKT PO SCH (09:00)
[2018-08-30] MEDS: HEPARIN 5,000 UNIT/1 ML VIAL SC SCH ×2 (09:03→20:40)
[2018-08-30] MEDS: DICLOFENAC SODIUM 1% GEL 100 GM TUBE TP SCH ×5 (09:04→20:58)
[2018-08-30] MEDS: ARTIFICIAL TEARS 15 ML OPH BOTH EYES SCH ×5 (09:04→20:58)
[2018-08-30] MEDS: BALSAM PERU/CASTOR OIL 60 GM TUBE TOP SCH ×3 (09:05→20:58)
[2018-08-30] MEDS: NYSTATIN 30 GM POWDER BTL TOP SCH ×2 (09:05→20:40)
--- NOTE | 2018-08-30 14:47 | PN ---
Date/Time of Note Date/Time of Note DATE: 08/30/18 TIME: 14:44 Assessment/Plan VTE Prophylaxis Risk score (from Nsg)>0 risk: 8 SCD applied (from Ns): No SCD contraindicated: other Pharmacological prophylaxis: heparin Lines/Catheters IV [facility]atheter Type (from [facility]): PERMACATH Urinary Cath still in place: No Assessment/Plan Hospital Course 58 y/o with 1. . ckd iii-iv now with the complications of hyperkalemia, patient has been refusing Kayexalate Velernestinaa has also been refusing dialysis, patient was explained the risks and consequences and patient completely understands the risks and consequences, now agreed, on and off Hd once a week 2. c diff hx 3. Chronic kidney disease, 4. Morbid obesity. 5. Diabetes. 6. Hypertension, 7. Gout.hx 8. Neuropathy. 9. History of congestive heart failure. 10 weakness 11 deconditioning 13 Left shoulde pain, TTP ? Frozen shoulder , shoulder impingement 14 s/p Fall ? AMS confusion likley due to UTI 15 uti klebsiella and enterococcus 16 diarrhea 15 vomtiing/? contipation> refuse labs again Plan - HD Once a week -stool softners - Lactobacillus - cw with PT -- pt refused cortisone injecion per ortho - Wound care - US with thrombosed graft - Ortho consult however patient refused a cortisone shot - avoid narcotics as it would limit her ability to walk for PT as it happened last admission since pts goal is Physical therapy - low k diet -cw home hydralazine -tyenolol on as needed headache case investigator to arrnage for home health Subjective 24 Hr Interval Summary Free Text/Dictation feels ok Exam/Review of Systems Vital Signs Vitals Vital Signs Date Temp Pulse Resp B/P (MAP) Pulse Ox O2 O2 Flow FiO2 Time Delivery Rate 08/30/18 80 18 140/63 91 05:44 (88) 08/30/18 Room Air 02:15 08/30/18 97.6 02:04 Exam ight chest permcath Constitutional: alert, oriented Respiratory: clear to auscultation Cardiovascular: regular rate and rhythm Gastrointestinal: soft Medications Medications Current Medications Acetaminophen (Tylenol Tab) 325 mg Q4H PRN PO MILD PAIN(1-3)OR ELEVATED TEMP Last administered on 08/14/18at 17:29; Admin Dose 325 MG; Start 07/20/18 at 23:00 Allopurinol (Zyloprim) 100 mg DAILY PO Last administered on 08/30/18at 08:59; Admin Dose 100 MG; Start 07/21/18 at 09:00 IV Flush (NS 3 ml) 3 ml PER PROTOCOL IV ; Start 07/20/18 at 23:00 Ondansetron HCl (Zofran Inj) 4 mg Q6H PRN IV NAUSEA AND/OR VOMITING Last administered on 08/29/18at 08:58; Admin Dose 4 MG; Start 07/20/18 at 23:00 Acetaminophen (Tylenol Tab) 650 mg Q6H PRN PO PAIN LEVEL 1-3 OR FEVER Last administered on 08/21/18at 01:16; Admin Dose 650 MG; Start 07/20/18 at 23:00 Acetaminophen (Tylenol Supp) 650 mg Q6H PRN OR PAIN LEVEL 1-3 OR FEVER; Start 07/20/18 at 23:00 Docusate Sodium (Colace) 100 mg Q12H PRN PO CONSTIPATION Last administered on 08/25/18at 21:28; Admin Dose 100 MG; Start 07/20/18 at 23:00 Bisacodyl (Dulcolax) 5 mg DAILY PRN PO CONSTIPATION Last administered on 08/14/18at 06:24; Admin Dose 5 MG; Start 07/20/18 at 23:00 Diagnostic Test (Pha) (Accu-Chek) 1 ea 02 XX Last administered on 08/12/18at 02:28; Admin Dose 1 EA; Start 07/21/18 at 02:00 Insulin Aspart (Novolog Insulin Pen) NOVOLOG *MILD* ALGORITHM WITH MEALS BEDTIME SC Last administered on 08/26/18at 12:40; Admin Dose 1 UNIT; Start 07/21/18 at 07:50 Ergocalciferol (Drisdol) 50,000 unit Lacy@0900 PO Last administered on 08/14/18at 10:26; Admin Dose 50,000 UNIT; Start 07/24/18 at 09:00 Miscellaneous Information 1 ea NOTE XX ; Start 07/20/18 at 23:00 Glucose (Glutose) 15 gm Q15M PRN PO DECREASED GLUCOSE; Start 07/20/18 at 23:00 Glucose (Glutose) 22.5 gm Q15M PRN PO DECREASED GLUCOSE; Start 07/20/18 at 23:00 Dextrose (D50w Syringe) 25 ml Q15M PRN IV DECREASED GLUCOSE; Start 07/20/18 at 23:00 Dextrose (D50w Syringe) 50 ml Q15M PRN IV DECREASED GLUCOSE; Start 07/20/18 at 23:00 Glucagon (Glucagen) 1 mg Q15M PRN IM DECREASED GLUCOSE; Start 07/20/18 at 23:00 Glucose (Glutose) 15 gm Q15M PRN BUCCAL DECREASED GLUCOSE; Start 07/20/18 at 23:00 Melatonin (Melatonin) 3 mg HS PRN PO INSOMNIA Last administered on 08/29/18at 23:05; Admin Dose 3 MG; Start 07/20/18 at 23:00 Heparin Sodium (Porcine) 5,000 unit Q12 SC Last administered on 08/30/18 09:03; Admin Dose 5,000 UNIT; Start 07/21/18 at 21:00 Diclofenac Sodium (Voltaren 1% Gel) 2 gm QID TP Last administered on 08/30/18at 13:24; Admin Dose 2 GM; Start 07/22/18 at 13:00 Tramadol HCl (Ultram) 100 mg Q6H PRN PO PAIN LEVEL 6-10 Last administered on 08/30/18 14:36; Admin Dose 100 MG; Start 07/27/18 at 17:00 Patiromer (Veltassa) 16.8 gm DAILY PO Last administered on 08/07/18at 08:52; Admin Dose 16.8 GM; Start 07/31/18 at 09:00 Guaifenesin/ Dextromethorphan (Robitussin Dm Liquid Cup) 10 ml Q4H PRN PO COUGH; Start 07/30/18 at 15:00 Heparin Sodium (Porcine) (Heparin (1000 Units/ml)) 4,000 unit AFTER DIALYSIS CATHETER Last administered on 08/21/18at 11:42; Admin Dose 4,700 UNIT; Start 07/31/18 at 18:00 Albumin Human 50 ml @ 100 mls/hr WITH DIALYSIS PRN IV SBP < 90 DURING DIALYSIS Last administered on 08/01/18at 22:17; Admin Dose 100 MLS/HR; Start 07/31/18 at 18:00 Sodium Chloride (NS) -To prime the dialy... DIRECTED FOR HD PRN IV HD; Start 07/31/18 at 18:00 Loratadine (Claritin) 10 mg DAILY PRN PO ALLERGIC REACTION Last administered on 08/07/18at 12:48; Admin Dose 10 MG; Start 08/07/18 at 12:30 Hydralazine HCl (Apresoline) 10 mg Q6H PRN PO ELEVATED BLOOD PRESSURE Last administered on 08/30/18at 02:15; Admin Dose 10 MG; Start 08/08/18 at 04:30 Hydralazine HCl (Apresoline) 25 mg TID PO Last administered on 08/30/18 13:24; Admin Dose 25 MG; Start 08/08/18 at 13:00 Eye Lubricant (Artificial Tears Oph) 2 drop QID BOTH EYES Last administered on 08/30/18 13:24; Admin Dose 2 DROP; Start 08/09/18 at 11:00 Calcium Carbonate (Tums) 500 mg PRN PRN PO HEARTBURN Last administered on 08/25/18at 09:39; Admin Dose 500 MG; Start 08/09/18 at 14:30 Bisacodyl (Dulcolax Supp) 10 mg DAILY PRN OR CONSTIPATION; Start 08/13/18 at 15:00 Furosemide (Lasix) 40 mg DAILY PO Last administered on 08/30/18at 08:58; Admin Dose 40 MG; Start 08/17/18 at 15:00 Famotidine (Pepcid) 20 mg DAILY PO Last administered on 08/30/18at 08:58; Admin Dose 20 MG; Start 08/22/18 at 09:00 Loperamide HCl (Imodium Cap) 2 mg QID PRN PO DIARRHEA; Start 08/21/18 at 16:00 Lactobacillus Acidophilus/ Rhamnosus (Culturelle) 1 cap BID PO Last a dministered on 08/29/18at 20:44; Admin Dose 1 CAP; Start 08/21/18 at 21:00 Miscellaneous Information (*Order Clarification Bulletin) MEDICATION REQUIRES CLARIFICATI... Q8H XX ; Start 08/26/18 at 17:00 Nystatin (Nystatin Powder) 1 applic BID TOP Last administered on 08/30/18at 09:05; Admin Dose 1 APPLIC; Start 08/28/18 at 21:00 Results Result Diagram: 08/30/18 1025 Results 24 hrs Laboratory Tests Test 08/29/18 17:48 08/29/18 20:53 08/30/18 08:56 08/30/18 10:25 Bedside Glucose 99 112 98 Sodium Level 139 Potassium Level 4.8 Chloride Level 99 Carbon Dioxide 31 Level Anion Gap 9 Blood Urea 54 H Nitrogen Creatinine 4.03 H Est Glomerular 11 L Filtrat Rate mL/min Glucose Level 123 Calcium Level 9.1 KOFI SWANN MD Aug 30, 2018 14:47
[2018-08-30 20:11] VITALS: BP 119/87; PULSE 89; RESP 17
[2018-08-30] MEDS: MELATONIN 3 MG TABLET PO PRN (20:32)
[2018-08-31] MEDS: ACCU-CHEK XX SCH (01:42)
[2018-08-31 02:25] VITALS: BP 147/78; PULSE 81; RESP 18
[2018-08-31] MEDS: traMADol 50 MG TAB PO PRN ×4 (02:30→20:34)
[2018-08-31] MEDS: PATIROMER CALCIUM SORBITEX 16.8 GM PKT PO SCH (08:30)
[2018-08-31] MEDS ORDERED: HEPARIN 5,000 UNIT/0.5 ML VIAL ONE ×2 (08:36→20:13)
[2018-08-31] MEDS: FAMOTIDINE 20 MG TAB PO SCH (08:41)
[2018-08-31] MEDS: FUROSEMIDE 40 MG TAB PO SCH (08:43)
[2018-08-31] MEDS: ALLOPURINOL 100 MG TAB PO SCH (08:44)
[2018-08-31] MEDS: HEPARIN 5,000 UNIT/1 ML VIAL SC SCH ×2 (08:49→20:33)
[2018-08-31] MEDS: DICLOFENAC SODIUM 1% GEL 100 GM TUBE TP SCH ×4 (08:50→20:43)
[2018-08-31] MEDS: BALSAM PERU/CASTOR OIL 60 GM TUBE TOP SCH ×2 (09:00→20:42)
[2018-08-31] MEDS: ARTIFICIAL TEARS 15 ML OPH BOTH EYES SCH ×4 (09:00→20:22)
[2018-08-31] MEDS: NYSTATIN 30 GM POWDER BTL TOP SCH ×2 (09:00→20:42)
[2018-08-31] MEDS: INSULIN ASPART [NOVOLOG] 3 ML PEN SC SCH ×4 (09:00→20:33)
[2018-08-31] MEDS: LACTOBACILLUS RHAMNOSUS CAP PO SCH ×2 (09:00→20:22)
[2018-08-31 10:24] VITALS: BP 134/54; PULSE 82
--- NOTE | 2018-08-31 12:55 | PN ---
Date/Time of Note Date/Time of Note DATE: 08/31/18 TIME: 12:52 Assessment/Plan VTE Prophylaxis Risk score (from Nsg)>0 risk: 8 SCD applied (from Nsg): Yes Pharmacological prophylaxis: heparin Lines/Catheters IV Catheter Type (from Nrsg): Central Line Central line still needed: No Urinary Cath still in place: No Assessment/Plan Hospital Course 58 y/o with 1. . ckd iii-iv now with the complications of hyperkalemia, patient has been refusing Kayexalate Dennis has also been refusing dialysis, patient was explained the risks and consequences and patient completely understands the risks and consequences, now agreed, on and off Hd once a week 2. c diff hx 3. Chronic kidney disease, 4. Morbid obesity. 5. Diabetes. 6. Hypertension, 7. Gout.hx 8. Neuropathy. 9. History of congestive heart failure. 10 weakness 11 deconditioning 13 Left shoulde pain, TTP ? Frozen shoulder , shoulder impingement 14 s/p Fall ? AMS confusion likley due to UTI 15 uti klebsiella and enterococcus 16 diarrhea 15 vomtiing/? contipation> refuse labs again Plan - HD Once a week -stool softners - Lactobacillus - cw with PT -- pt refused cortisone injecion per ortho - Wound care - US with thrombosed graft - Ortho consult however patient refused a cortisone shot - avoid narcotics as it would limit her ability to walk for PT as it happened last admission since pts goal is Physical therapy - low k diet, cw lasix -cw home hydralazine -tyenolol on as needed headache -dc veltassa as pt has been refusing it case folder to arrnage for home health/ HD once a week in order to be discharged Subjective 24 Hr Interval Summary Free Text/Dictation Feels ok, some pain in left arm Exam/Review of Systems Vital Signs Vitals Vital Signs Date Temp Pulse Resp B/P (MAP) Pulse Ox O2 O2 Flow FiO2 Time Delivery Rate 08/31/18 97.2 82 134/54 10:24 (80) 08/31/18 18 95 02:25 08/30/18 Room Air 02:15 Intake and Output 08/30/18 08/30/18 08/31/18 1515:00 23:00 07:00 IntakeIntake Total 500 ml BalanceBalance 500 ml Exam right chest permcath Constitutional: alert, oriented, morbidly obese, lying on rt side Respiratory: clear to auscultation Cardiovascular: regular rate and rhythm Gastrointestinal: soft Medications Medications Current Medications Acetaminophen (Tylenol Tab) 325 mg Q4H PRN PO MILD PAIN(1-3)OR ELEVATED TEMP Last administered on 08/14/18 17:29; Admin Dose 325 MG; Start 07/20/18 at 23:00 Allopurinol (Zyloprim) 100 mg DAILY PO Last administered on 08/31/18 08:44; Admin Dose 100 MG; Start 07/21/18 at 09:00 IV Flush (NS 3 ml) 3 ml PER PROTOCOL IV ; Start 07/20/18 at 23:00 Ondansetron HCl (Zofran Inj) 4 mg Q6H PRN IV NAUSEA AND/OR VOMITING Last administered on 08/29/18 08:58; Admin Dose 4 MG; Start 07/20/18 at 23:00 Acetaminophen (Tylenol Tab) 650 mg Q6H PRN PO PAIN LEVEL 1-3 OR FEVER Last administered on 08/21/18 01:16; Admin Dose 650 MG; Start 07/20/18 at 23:00 Acetaminophen (Tylenol Supp) 650 mg Q6H PRN [place] PAIN LEVEL 1-3 OR FEVER; Start 07/20/18 at 23:00 Docusate Sodium (Colace) 100 mg Q12H PRN PO CONSTIPATION Last administered on 08/25/18 21:28; Admin Dose 100 MG; Start 07/20/18 at 23:00 Bisacodyl (Dulcolax) 5 mg DAILY PRN PO CONSTIPATION Last administered on 08/14/18 06:24; Admin Dose 5 MG; Start 07/20/18 at 23:00 Diagnostic Test (Pha) (Accu-Chek) 1 ea 02 XX Last administered on 08/12/18 02:28; Admin Dose 1 EA; Start 07/21/18 at 02:00 Insulin Aspart (Novolog Insulin Pen) NOVOLOG *MILD* ALGORITHM WITH MEALS BEDTIME SC Last administered on 08/30/18 20:39; Admin Dose 1 UNIT; Start 07/21/18 at 07:50 Ergocalciferol (Drisdol) 50,000 unit Lacy@0900 PO Last administered on 11/11/18at 10:26; Admin Dose 50,000 UNIT; Start 07/24/18 at 09:00 Miscellaneous Information 1 ea NOTE XX ; Start 07/20/18 at 23:00 Glucose (Glutose) 15 gm Q15M PRN PO DECREASED GLUCOSE; Start 07/20/18 at 23:00 Glucose (Glutose) 22.5 gm Q15M PRN PO DECREASED GLUCOSE; Start 07/20/18 at 23: 00 Dextrose (D50w Syringe) 25 ml Q15M PRN IV DECREASED GLUCOSE; Start 07/20/18 at 23:00 Dextrose (D50w Syringe) 50 ml Q15M PRN IV DECREASED GLUCOSE; Start 07/20/18 at 23:00 Glucagon (Glucagen) 1 mg Q15M PRN IM DECREASED GLUCOSE; Start 07/20/18 at 23:00 Glucose (Glutose) 15 gm Q15M PRN BUCCAL DECREASED GLUCOSE; Start 07/20/18 at 23:00 Melatonin (Melatonin) 3 mg HS PRN PO INSOMNIA Last administered on 08/30/18at 20:32; Admin Dose 3 MG; Start 07/20/18 at 23:00 Heparin Sodium (Porcine) 5,000 unit Q12 SC Last administered on 08/31/18at 08:49; Admin Dose 5,000 UNIT; Start 07/21/18 at 21:00 Diclofenac Sodium (Voltaren 1% Gel) 2 gm QID TP Last administered on 08/31/18at 08:50; Admin Dose 2 GM; Start 07/22/18 at 13:00 Tramadol HCl (Ultram) 100 mg Q6H PRN PO PAIN LEVEL 6-10 Last administered on 08/31/18at 08:41; Admin Dose 100 MG; Start 07/27/18 at 17:00 Patiromer (Veltassa) 16.8 gm DAILY PO Last administered on 08/07/18at 08:52; Admin Dose 16.8 GM; Start 07/31/18 at 09:00 Guaifenesin/ Dextromethorphan (Robitussin Dm Liquid Cup) 10 ml Q4H PRN PO COUGH; Start 07/30/18 at 15:00 Heparin Sodium (Porcine) (Heparin (1000 Units/ml)) 4,000 unit AFTER DIALYSIS CATHETER Last administered on 08/21/18at 11:42; Admin Dose 4,700 UNIT; Start 07/31/18 at 18:00 Sodium Chloride (NS) -To prime the dialy... DIRECTED FOR HD PRN IV HD; Start 07/31/18 at 18:00 Loratadine (Claritin) 10 mg DAILY PRN PO ALLERGIC REACTION Last administered on 08/07/18 12:48; Admin Dose 10 MG; Start 08/07/18 at 12:30 Hydralazine HCl (Apresoline) 10 mg Q6H PRN PO ELEVATED BLOOD PRESSURE Last administered on 08/30/18 02:15; Admin Dose 10 MG; Start 08/08/18 at 04:30 Hydralazine HCl (Apresoline) 25 mg TID PO Last administered on 08/31/18 08:44; Admin Dose 25 MG; Start 08/08/18 at 13:00 Eye Lubricant (Artificial Tears Oph) 2 drop QID BOTH EYES Last administered on 08/30/18 17:52; Admin Dose 2 DROP; Start 08/09/18 at 11:00 Calcium Carbonate (Tums) 500 mg PRN PRN PO HEARTBURN Last administered on 08/25/18 09:39; Admin Dose 500 MG; Start 08/09/18 at 14:30 Bisacodyl (Dulcolax Supp) 10 mg DAILY PRN [place] CONSTIPATION; Start 08/13/18 at 15:00 Furosemide (Lasix) 40 mg DAILY PO Last administered on 08/31/18 08:43; Admin Dose 40 MG; Start 08/17/18 at 15:00 Famotidine (Pepcid) 20 mg DAILY PO Last administered on 08/31/18 08:41; Admin Dose 20 MG; Start 08/22/18 at 09:00 Loperamide HCl (Imodium Cap) 2 mg QID PRN PO DIARRHEA; Start 08/21/18 at 16:00 Lactobacillus Acidophilus/ Rhamnosus (Culturelle) 1 cap BID PO Last administered on 08/29/18 20:44; Admin Dose 1 CAP; Start 08/21/18 at 21:00 Miscellaneous Information (*Order Clarification Bulletin) MEDICATION REQUIRES CLARIFICATI... Q8H XX ; Start 08/26/18 at 17:00 Nystatin (Nystatin Powder) 1 applic BID TOP Last administered on 08/30/18 20:40; Admin Dose 1 APPLIC; Start 08/28/18 at 21:00 Results Result Diagram: 08/30/18 1025 Results 24 hrs Laboratory Tests Test 08/30/18 17:50 08/30/18 20:36 08/31/18 08:55 Bedside Glucose 105 183 106 KOFI SWANN MD Aug 31, 2018 12:54
[2018-08-31 19:40] VITALS: BP 131/62; PULSE 62; RESP 20
[2018-08-31] MEDS: MELATONIN 3 MG TABLET PO PRN (20:42)
[2018-09-01] MEDS: ACCU-CHEK XX SCH (01:45)
[2018-09-01 02:40] VITALS: BP 119/84; PULSE 78; RESP 20
[2018-09-01] MEDS: traMADol 50 MG TAB PO PRN ×4 (02:49→20:41)
[2018-09-01] MEDS: INSULIN ASPART [NOVOLOG] 3 ML PEN SC SCH ×4 (07:50→20:42)
[2018-09-01] MEDS ORDERED: HEPARIN 5,000 UNIT/0.5 ML VIAL ONE ×2 (08:10→20:13)
[2018-09-01] MEDS: ARTIFICIAL TEARS 15 ML OPH BOTH EYES SCH ×4 (08:46→20:40)
[2018-09-01 08:47] VITALS: BP 138/71; PULSE 77; RESP 20
[2018-09-01] MEDS: ALLOPURINOL 100 MG TAB PO SCH (08:47)
[2018-09-01] MEDS: FAMOTIDINE 20 MG TAB PO SCH (08:48)
[2018-09-01] MEDS: FUROSEMIDE 40 MG TAB PO SCH (08:48)
[2018-09-01] MEDS: HEPARIN 5,000 UNIT/1 ML VIAL SC SCH ×2 (08:50→20:43)
[2018-09-01] MEDS: NYSTATIN 30 GM POWDER BTL TOP SCH ×2 (08:51→20:39)
[2018-09-01] MEDS: DICLOFENAC SODIUM 1% GEL 100 GM TUBE TP SCH ×4 (08:51→20:44)
[2018-09-01] MEDS: BALSAM PERU/CASTOR OIL 60 GM TUBE TOP SCH ×2 (09:00→20:43)
[2018-09-01] MEDS: LACTOBACILLUS RHAMNOSUS CAP PO SCH ×2 (09:00→20:43)
--- NOTE | 2018-09-01 09:33 | PN ---
Date/Time of Note Date/Time of Note DATE: 09/01/18 TIME: 09:33 Assessment/Plan VTE Prophylaxis Risk score (from Nsg)>0 risk: 6 SCD applied (from Ns): No SCD contraindicated: other Pharmacological prophylaxis: heparin Lines/Catheters IV Catheter Type (from Nrs): PERMACATH Urinary Cath still in place: No Assessment/Plan Hospital Course 58 y/o with 1. . ckd iii-iv now with the complications of hyperkalemia, patient has been refusing Kayexalate Dennis has also been refusing dialysis, patient was explained the risks and consequences and patient completely understands the risks and consequences, now agreed, on and off Hd once a week 2. c diff hx 3. Chronic kidney disease, 4. Morbid obesity. 5. Diabetes. 6. Hypertension, 7. Gout.hx 8. Neuropathy. 9. History of congestive heart failure. 10 weakness 11 deconditioning 13 Left shoulde pain, TTP ? Frozen shoulder , shoulder impingement 14 s/p Fall ? AMS confusion likley due to UTI 15 uti klebsiella and enterococcus 16 diarrhea 15 vomtiing/? 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 for home health/ HD once a week in order to be discharged Subjective 24 Hr Interval Summary Free Text/Dictation some pain in left arm Exam/Review of Systems Vital Signs Vitals Vital Signs Date Temp Pulse Resp B/P (MAP) Pulse Ox O2 O2 Flow FiO2 Time Delivery Rate 09/01/18 98.7 77 20 138/71 93 Nasal 08:47 (93) Cannula Exam right chest permcath Constitutional: alert, oriented, morbidly obese, lying on rt side Respiratory: clear to auscultation Cardiovascular: regular rate and rhythm Gastrointestinal: soft Medications Medications Current Medications Acetaminophen (Tylenol Tab) 325 mg Q4H PRN PO MILD PAIN(1-3)OR ELEVATED TEMP Last administered on 08/14/18 17:29; Admin Dose 325 MG; Start 07/20/18 at 2 3:00 Allopurinol (Zyloprim) 100 mg DAILY PO Last administered on 09/01/18 08:47; Admin Dose 100 MG; Start 07/21/18 at 09:00 IV Flush (NS 3 ml) 3 ml PER PROTOCOL IV ; Start 07/20/18 at 23:00 Ondansetron HCl (Zofran Inj) 4 mg Q6H PRN IV NAUSEA AND/OR VOMITING Last administered on 08/29/18 08:58; Admin Dose 4 MG; Start 07/20/18 at 23:00 Acetaminophen (Tylenol Tab) 650 mg Q6H PRN PO PAIN LEVEL 1-3 OR FEVER Last administered on 08/21/18 01:16; Admin Dose 650 MG; Start 07/20/18 at 23:00 Acetaminophen (Tylenol Supp) 650 mg Q6H PRN [place] PAIN LEVEL 1-3 OR FEVER; Start 07/20/18 at 23:00 Docusate Sodium (Colace) 100 mg Q12H PRN PO CONSTIPATION Last administered on 08/25/18 21:28; Admin Dose 100 MG; Start 07/20/18 at 23:00 Bisacodyl (Dulcolax) 5 mg DAILY PRN PO CONSTIPATION Last administered on 08/14/18 06:24; Admin Dose 5 MG; Start 07/20/18 at 23:00 Diagnostic Test (Pha) (Accu-Chek) 1 ea 02 XX Last administered on 08/12/18at 02:28; Admin Dose 1 EA; Start 07/21/18 at 02:00 Insulin Aspart (Novolog Insulin Pen) NOVOLOG *MILD* ALGORITHM WITH MEALS BEDTIME SC Last administered on 08/30/18 20:39; Admin Dose 1 UNIT; Start 07/21/18 at 07:50 Ergocalciferol (Drisdol) 50,000 unit Lacy@0900 PO Last administered on 08/14/18 10:26; Admin Dose 50,000 UNIT; Start 07/24/18 at 09:00 Miscellaneous Information 1 ea NOTE XX ; Start 07/20/18 at 23:00 Glucose (Glutose) 15 gm Q15M PRN PO DECREASED GLUCOSE; Start 07/20/18 at 23:00 Glucose (Glutose) 22.5 gm Q15M PRN PO DECREASED GLUCOSE; Start 07/20/18 at 23:00 Dextrose (D50w Syringe) 25 ml Q15M PRN IV DECREASED GLUCOSE; Start 07/20/18 at 23:00 Dextrose (D50w Syringe) 50 ml Q15M PRN IV DECREASED GLUCOSE; Start 07/20/18 at 23:00 Glucagon (Glucagen) 1 mg Q15M PRN IM DECREASED GLUCOSE; Start 07/20/18 at 23:00 Glucose (Glutose) 15 gm Q15M PRN BUCCAL DECREASED GLUCOSE; Start 07/20/18 at 23:00 Melatonin (Melatonin) 3 mg HS PRN PO INSOMNIA Last administered on 08/31/18at 20:42; Admin Dose 3 MG; Start 07/20/18 at 23:00 Heparin Sodium (Porcine) 5,000 unit Q12 SC Last administered on 09/01/18 08:50; Admin Dose 5,000 UNIT; Start 07/21/18 at 21:00 Diclofenac Sodium (Voltaren 1% Gel) 2 gm QID TP Last administered on 09/01/18at 08:51; Admin Dose 2 GM; Start 07/22/18 at 13:00 Guaifenesin/ Dextromethorphan (Robitussin Dm Liquid Cup) 10 ml Q4H PRN PO COUGH; Start 07/30/18 at 15:00 Heparin Sodium (Porcine) (Heparin (1000 Units/ml)) 4,000 unit AFTER DIALYSIS CATHETER Last administered on 08/21/18at 11:42; Admin Dose 4,700 UNIT; Start 07/31/18 at 18:00 Sodium Chloride (NS) -To prime the dialy... DIRECTED FOR HD PRN IV HD; Start 07/31/18 at 18:00 Loratadine (Claritin) 10 mg DAILY PRN PO ALLERGIC REACTION Last administered on 08/07/18at 12:48; Admin Dose 10 MG; Start 08/07/18 at 12:30 Hydralazine HCl (Apresoline) 10 mg Q6H PRN PO ELEVATED BLOOD PRESSURE Last administered on 08/30/18at 02:15; Admin Dose 10 MG; Start 08/08/18 at 04:30 Hydralazine HCl (Apresoline) 25 mg TID PO Last administered on 09/01/18 08:46; Admin Dose 25 MG; Start 08/08/18 at 13:00 Eye Lubricant (Artificial Tears Oph) 2 drop QID BOTH EYES Last administered on 09/01/18 08:46; Admin Dose 2 DROP; Start 08/09/18 at 11:00 Calcium Carbonate (Tums) 500 mg PRN PRN PO HEARTBURN Last administered on 08/25/18 09:39; Admin Dose 500 MG; Start 08/09/18 at 14:30 Bisacodyl (Dulcolax Supp) 10 mg DAILY PRN [place] CONSTIPATION; Start 08/13/18 at 15:00 Furosemide (Lasix) 40 mg DAILY PO Last administered on 09/01/18 08:48; Admin Dose 40 MG; Start 08/17/18 at 15:00 Famotidine (Pepcid) 20 mg DAILY PO Last administered on 09/01/18 08:48; Admin Dose 20 MG; Start 08/22/18 at 09:00 Loperamide HCl (Imodium Cap) 2 mg QID PRN PO DIARRHEA; Start 08/21/18 at 16:00 Lactobacillus Acidophilus/ Rhamnosus (Culturelle) 1 cap BID PO Last administered on 08/29/18 20:44; Admin Dose 1 CAP; Start 08/21/18 at 21:00 Nystatin (Nystatin Powder) 1 applic BID TOP Last administered on 09/01/18 08:51; Admin Dose 1 APPLIC; Start 08/28/18 at 21:00 Tramadol HCl (Ultram) 100 mg Q6H PRN PO PAIN LEVEL 6-10 Last administered on 09/01/18 08:45; Admin Dose 100 MG; Start 09/01/18 at 02:00 Results Result Diagram: 08/30/18 1025 Results 24 hrs Laboratory Tests Test 08/31/18 13:24 08/31/18 17:53 08/31/18 20:29 09/01/18 08:39 Bedside Glucose 122 128 172 110 KOFI SWANN MD Sep 01, 2018 09:33
[2018-09-01] MEDS ORDERED: HYDROCODONE/APAP (5/325) TAB PO ONE (12:00)
[2018-09-01 15:09] VITALS: BP 121/65; PULSE 81; RESP 20
[2018-09-01 19:20] VITALS: BP 115/57; PULSE 82; RESP 20
[2018-09-02] VITALS (12 sets, daily range): BP systolic 140–176; BP diastolic 66–108; PULSE 75–86; RESP 16–20
[2018-09-02] MEDS: ACCU-CHEK XX SCH ×2 (02:04→22:40)
[2018-09-02] MEDS: traMADol 50 MG TAB PO PRN ×6 (02:38→22:05)
[2018-09-02] MEDS: MELATONIN 3 MG TABLET PO PRN (02:38)
[2018-09-02] MEDS: INSULIN ASPART [NOVOLOG] 3 ML PEN SC SCH ×4 (07:50→21:00)
[2018-09-02] MEDS ORDERED: HEPARIN 5,000 UNIT/0.5 ML VIAL ONE ×2 (08:20→21:59)
[2018-09-02] MEDS: FAMOTIDINE 20 MG TAB PO SCH (08:31)
[2018-09-02] MEDS: ALLOPURINOL 100 MG TAB PO SCH (08:32)
[2018-09-02] MEDS: LACTOBACILLUS RHAMNOSUS CAP PO SCH ×2 (08:32→22:06)
[2018-09-02] MEDS: FUROSEMIDE 40 MG TAB PO SCH (08:33)
[2018-09-02] MEDS: HEPARIN 5,000 UNIT/1 ML VIAL SC SCH ×2 (08:34→22:14)
[2018-09-02] MEDS: NYSTATIN 30 GM POWDER BTL TOP SCH ×2 (08:35→21:00)
[2018-09-02] MEDS: DICLOFENAC SODIUM 1% GEL 100 GM TUBE TP SCH ×4 (08:35→21:00)
[2018-09-02] MEDS: ARTIFICIAL TEARS 15 ML OPH BOTH EYES SCH ×4 (08:35→21:00)
[2018-09-02] MEDS: BALSAM PERU/CASTOR OIL 60 GM TUBE TOP SCH ×2 (08:36→21:00)
--- NOTE | 2018-09-02 12:33 | PN ---
Date/Time of Note Date/Time of Note DATE: 09/02/18 TIME: 12:33 Assessment/Plan VTE Prophylaxis Risk score (from Nsg)>0 risk: 5 SCD applied (from Ns): Yes Pharmacological prophylaxis: heparin Lines/Catheters IV Catheter Type (from Nrsg): PERMACATH Urinary Cath still in place: No Assessment/Plan Hospital Course 1. ckd, hyperkalemia 2. c diff hx 3. Opiates dependency 4. Morbid obesity. 5. Diabetes. 6. Hypertension, 7. Gout, hx 8. Neuropathy. 9. History of congestive heart failure. 10. weakness 11. deconditioning 12. Non compliance, pt refused V[place], HD 13. Left shoulder chronic pain. Xray was reviewed from the last visit, it is arthrosis left acromioclavicular joint 14. constipation Assessment/Plan - HD Once a week, next today -stool softeners. - Lactobacillus - cw with PT -- pt refused cortisone injecion per ortho - Wound care - US with thrombosed graft - Ortho consult however patient refused a cortisone shot - avoid narcotics as it would limit her ability to walk for PT as it happened last admission since pts goal is Physical therapy - low k diet, cw lasix -cw home hydralazine -tyenolol on as needed headache -dc veltassa as pt has been refusing it - warm compresses to shoulder- pillowcase maker to arrange for home health/ HD/hospital bed once a week in order to be discharged Subjective 24 Hr Interval Summary Free Text/Dictation headache Exam/Review of Systems Vital Signs Vitals Vital Signs Date Temp Pulse Resp B/P (MAP) Pulse Ox O2 O2 Flow FiO2 Time Delivery Rate 09/02/18 98.2 86 16 140/78 94 08:00 (98) 09/01/18 Nasal 08:47 Cannula Exam right Perm cath Constitutional: alert, oriented Eyes: nl conjunctiva Neck: supple Respiratory: clear to auscultation Cardiovascular: regular rate and rhythm Medications Medications Current Medications Acetaminophen (Tylenol Tab) 325 mg Q4H PRN PO MILD PAIN(1-3)OR ELEVATED TEMP Last administered on 08/14/18at 17:29; Admin Dose 325 MG; Start 07/20/18 at 23:00 Allopurinol (Zyloprim) 100 mg DAILY PO Last administered on 09/02/18 08:32; Admin Dose 100 MG; Start 07/21/18 at 09:00 IV Flush (NS 3 ml) 3 ml PER PROTOCOL IV ; Start 07/20/18 at 23:00 Ondansetron HCl (Zofran Inj) 4 mg Q6H PRN IV NAUSEA AND/OR VOMITING Last administered on 08/29/18at 08:58; Admin Dose 4 MG; Start 07/20/18 at 23:00 Acetaminophen (Tylenol Tab) 650 mg Q6H PRN PO PAIN LEVEL 1-3 OR FEVER Last administered on 08/21/18at 01:16; Admin Dose 650 MG; Start 07/20/18 at 23:00 Acetaminophen (Tylenol Supp) 650 mg Q6H PRN [place] PAIN LEVEL 1-3 OR FEVER; Start 07/20/18 at 23:00 Docusate Sodium (Colace) 100 mg Q12H PRN PO CONSTIPATION Last administered on 08/25/18at 21:28; Admin Dose 100 MG; Start 07/20/18 at 23:00 Bisacodyl (Dulcolax) 5 mg DAILY PRN PO CONSTIPATION Last administered on 08/14/18at 06:24; Admin Dose 5 MG; Start 07/20/18 at 23:00 Diagnostic Test (Pha) (Accu-Chek) 1 ea 02 XX Last administered on 09/02/18at 02:04; Admin Dose 1 EA; Start 07/21/18 at 02:00 Insulin Aspart (Novolog Insulin Pen) NOVOLOG *MILD* ALGORITHM WITH MEALS BEDTIME SC Last administered on 09/01/18at 20:42; Admin Dose 1 UNIT; Start 07/21/18 at 07:50 Ergocalciferol (Drisdol) 50,000 unit Lacy@0900 PO Last administered on 08/14/18at 10:26; Admin Dose 50,000 UNIT; Start 07/24/18 at 09:00 Miscellaneous Information 1 ea NOTE XX ; Start 07/20/18 at 23:00 Glucose (Glutose) 15 gm Q15M PRN PO DECREASED GLUCOSE; Start 07/20/18 at 23:00 Glucose (Glutose) 22.5 gm Q15M PRN PO DECREASED GLUCOSE; Start 07/20/18 at 23:00 Dextrose (D50w Syringe) 25 ml Q15M PRN IV DECREASED GLUCOSE; Start 07/20/18 at 23:00 Dextrose (D50w Syringe) 50 ml Q15M PRN IV DECREASED GLUCOSE; Start 07/20/18 at 23:00 Glucagon (Glucagen) 1 mg Q15M PRN IM DECREASED GLUCOSE; Start 07/20/18 at 23:00 Glucose (Glutose) 15 gm Q15M PRN BUCCAL DECREASED GLUCOSE; Start 07/20/18 at 23:00 Melatonin (Melatonin) 3 mg HS PRN PO INSOMNIA Last administered on 09/02/18 02:38; Admin Dose 3 MG; Start 07/20/18 at 23:00 Heparin Sodium (Porcine) 5,000 unit Q12 SC Last administered on 09/02/18 08:34; Admin Dose 5,000 UNIT; Start 07/21/18 at 21:00 Diclofenac Sodium (Voltaren 1% Gel) 2 gm QID TP Last administered on 09/02/18 08:35; Admin Dose 2 GM; Start 07/22/18 at 13:00 Guaifenesin/ Dextromethorphan (Robitussin Dm Liquid Cup) 10 ml Q4H PRN PO COUGH; Start 07/30/18 at 15:00 Heparin Sodium (Porcine) (Heparin (1000 Units/ml)) 4,000 unit AFTER DIALYSIS CATHETER Last administered on 08/21/18 11:42; Admin Dose 4,700 UNIT; Start 07/31/18 at 18:00 Sodium Chloride (NS) -To prime the dialy... DIRECTED FOR HD PRN IV HD; Start 07/31/18 at 18:00 Loratadine (Claritin) 10 mg DAILY PRN PO ALLERGIC REACTION Last administered on 08/07/18 12:48; Admin Dose 10 MG; Start 08/07/18 at 12:30 Hydralazine HCl (Apresoline) 10 mg Q6H PRN PO ELEVATED BLOOD PRESSURE Last administered on 08/30/18 02:15; Admin Dose 10 MG; Start 08/08/18 at 04:30 Hydralazine HCl (Apresoline) 25 mg TID PO Last administered on 09/02/18 08:32; Admin Dose 25 MG; Start 08/08/18 at 13:00 Eye Lubricant (Artificial Tears Oph) 2 drop QID BOTH EYES Last administered on 09/02/18 08:35; Admin Dose 2 DROP; Start 08/09/18 at 11:00 Calcium Carbonate (Tums) 500 mg PRN PRN PO HEARTBURN Last administered on 08/25/18at 09:39; Admin Dose 500 MG; Start 08/09/18 at 14:30 Bisacodyl (Dulcolax Supp) 10 mg DAILY PRN [place] CONSTIPATION; Start 08/13/18 at 15:00 Furosemide (Lasix) 40 mg DAILY PO Last administered on 09/02/18at 08:33; Admin Dose 40 MG; Start 08/17/18 at 15:00 Famotidine (Pepcid) 20 mg DAILY PO Last administered on 09/02/18at 08:31; Admin Dose 20 MG; Start 08/22/18 at 09:00 Loperamide HCl (Imodium Cap) 2 mg QID PRN PO DIARRHEA; Start 08/21/18 at 16:00 Lactobacillus Acidophilus/ Rhamnosus (Culturelle) 1 cap BID PO Last administered on 09/02/18at 08:32; Admin Dose 1 CAP; Start 08/21/18 at 21:00 Nystatin (Nystatin Powder) 1 applic BID TOP Last administered on 09/02/18at 08:35; Admin Dose 1 APPLIC; Start 08/28/18 at 21:00 Tramadol HCl (Ultram) 100 mg Q6H PRN PO PAIN LEVEL 6-10 Last administered on 09/02/18at 08:27; Admin Dose 100 MG; Start 09/01/18 at 02:00 Results Result Diagram: 09/01/18 1543 Results 24 hrs Laboratory Tests Test 09/01/18 13:18 09/01/18 15:43 09/01/18 17:51 09/01/18 20:35 Bedside Glucose 95 116 187 Sodium Level 138 Potassium Level 5.1 Chloride Level 98 Carbon Dioxide 29 Level Anion Gap 11 Blood Urea 61 H Nitrogen Creatinine 4.31 H Est Glomerular 10 L Filtrat Rate mL/min Glucose Level 167 Calcium Level 9.1 Test 09/02/18 02:03 09/02/18 08:31 Bedside Glucose 121 115 WILLY MEDEIROS Sep 02, 2018 12:33
[2018-09-02] MEDS ORDERED: ALTEPLASE (CATHFLO) 2 MG INJ CATHETER ONE (16:30)
[2018-09-02] MEDS: BISACODYL (EC) 5 MG TAB PO PRN (22:06)
[2018-09-03] VITALS: BP 141/88; PULSE 83
[2018-09-03 00:30] VITALS: BP 155/100; PULSE 86
[2018-09-03 00:47] VITALS: BP 149/93; PULSE 83; RESP 20
[2018-09-03] MEDS: HEPARIN 1000 UNITS/ML 10 ML INJ CATHETER SCH (00:52)
[2018-09-03 02:20] VITALS: BP 96/52; PULSE 88; RESP 20
[2018-09-03] MEDS: traMADol 50 MG TAB PO PRN ×3 (04:30→16:44)
[2018-09-03] MEDS: CALCIUM CARBONATE 500 MG CHEW TAB PO PRN ×2 (05:59→12:33)
[2018-09-03 07:27] VITALS: BP 120/90; PULSE 85; RESP 16
[2018-09-03] MEDS ORDERED: HEPARIN 5,000 UNIT/0.5 ML VIAL ONE ×2 (08:36→20:07)
[2018-09-03] MEDS: LACTOBACILLUS RHAMNOSUS CAP PO SCH ×2 (09:00→21:12)
[2018-09-03] MEDS: INSULIN ASPART [NOVOLOG] 3 ML PEN SC SCH ×4 (10:00→21:00)
[2018-09-03] MEDS: ALLOPURINOL 100 MG TAB PO SCH (10:10)
[2018-09-03] MEDS: FAMOTIDINE 20 MG TAB PO SCH (10:10)
[2018-09-03] MEDS: DICLOFENAC SODIUM 1% GEL 100 GM TUBE TP SCH ×4 (10:11→21:18)
[2018-09-03] MEDS: FUROSEMIDE 40 MG TAB PO SCH (10:11)
[2018-09-03] MEDS: NYSTATIN 30 GM POWDER BTL TOP SCH ×2 (10:11→21:18)
[2018-09-03] MEDS: ARTIFICIAL TEARS 15 ML OPH BOTH EYES SCH ×4 (10:11→21:18)
[2018-09-03] MEDS: BALSAM PERU/CASTOR OIL 60 GM TUBE TOP SCH ×2 (10:11→21:18)
[2018-09-03] MEDS: HEPARIN 5,000 UNIT/1 ML VIAL SC SCH ×2 (10:13→21:17)
--- NOTE | 2018-09-03 12:46 | PN ---
Date/Time of Note Date/Time of Note DATE: 09/03/18 TIME: 12:43 Assessment/Plan VTE Prophylaxis Risk score (from Ns)>0 risk: 5 SCD applied (from Ns): Yes Pharmacological prophylaxis: LMWH Lines/Catheters IV Catheter Type (from Nrs): PERM-A-CATH Urinary Cath still in place: No Assessment/Plan Hospital Course 1. ckd, hyperkalemia 2. c diff hx 3. Opiates dependency 4. Morbid obesity. 5. Diabetes. 6. Hypertension, 7. Gout, hx 8. Neuropathy. 9. History of congestive heart failure. 10. weakness 11. deconditioning 12. Non compliance, pt refused [place], HD 13. Left shoulder chronic pain. Xray was reviewed from the last visit, it is arthrosis left acromioclavicular joint 14. constipation Assessment/Plan -HD Once a week, one was yesterday -stool softeners. - Lactobacillus - cw with PT -- pt refused cortisone injecion per ortho - Wound care - US with thrombosed graft - Ortho consult however patient refused a cortisone shot - avoid narcotics as it would limit her ability to walk for PT as it happened last admission since pts goal is Physical therapy - low k diet, cw lasix -cw home hydralazine -tyenolol on as needed headache -dc v[place] as pt has been refusing it - warm compresses to shoulder- outpatient case manager to arrange for home health/ HD/hospital bed once a week in order to be discharged Subjective 24 Hr Interval Summary Constitutional: improved Exam/Review of Systems Vital Signs Vitals Vital Signs Date Temp Pulse Resp B/P (MAP) Pulse Ox O2 O2 Flow FiO2 Time Delivery Rate 09/03/18 98.5 85 16 120/90 95 Room Air 07:27 (100) 09/02/18 3.0 21:30 Intake and Output 09/02/18 09/02/18 09/03/18 1515:00 23:00 07:00 IntakeIntake Total 600 ml 1200 ml OutputOutput Total 1400 ml BalanceBalance 600 ml -200 ml Exam right chest Permcath Head: normocephalic Eyes: nl conjunctiva Neck: supple Respiratory: clear to auscultation Cardiovascular: regular rate and rhythm Gastrointestinal: soft Medications Medications Current Medications Acetaminophen (Tylenol Tab) 325 mg Q4H PRN PO MILD PAIN(1-3)OR ELEVATED TEMP Last administered on 08/14/18 17:29; Admin Dose 325 MG; Start 07/20/18 at 23:00 Allopurinol (Zyloprim) 100 mg DAILY PO Last administered on 09/03/18 10:10; A dmin Dose 100 MG; Start 07/21/18 at 09:00 IV Flush (NS 3 ml) 3 ml PER PROTOCOL IV ; Start 07/20/18 at 23:00 Ondansetron HCl (Zofran Inj) 4 mg Q6H PRN IV NAUSEA AND/OR VOMITING Last administered on 08/29/18at 08:58; Admin Dose 4 MG; Start 07/20/18 at 23:00 Acetaminophen (Tylenol Tab) 650 mg Q6H PRN PO PAIN LEVEL 1-3 OR FEVER Last administered on 08/21/18 01:16; Admin Dose 650 MG; Start 07/20/18 at 23:00 Acetaminophen (Tylenol Supp) 650 mg Q6H PRN [place] PAIN LEVEL 1-3 OR FEVER; Start 07/20/18 at 23:00 Docusate Sodium (Colace) 100 mg Q12H PRN PO CONSTIPATION Last administered on 08/25/18at 21:28; Admin Dose 100 MG; Start 07/20/18 at 23:00 Bisacodyl (Dulcolax) 5 mg DAILY PRN PO CONSTIPATION Last administered on 09/02/18 22:06; Admin Dose 5 MG; Start 07/20/18 at 23:00 Diagnostic Test (Pha) (Accu-Chek) 1 ea 02 XX Last administered on 09/02/18at 02:04; Admin Dose 1 EA; Start 07/21/18 at 02:00 Insulin Aspart (Novolog Insulin Pen) NOVOLOG *MILD* ALGORITHM WITH MEALS BEDTIME SC Last administered on 09/01/18at 20:42; Admin Dose 1 UNIT; Start 07/21/18 at 07:50 Ergocalciferol (Drisdol) 50,000 unit Lacy@0900 PO Last administered on 08/14/18 10:26; Admin Dose 50,000 UNIT; Start 07/24/18 at 09:00 Miscellaneous Information 1 ea NOTE XX ; Start 07/20/18 at 23:00 Glucose (Glutose) 15 gm Q15M PRN PO DECREASED GLUCOSE; Start 07/20/18 at 23:00 Glucose (Glutose) 22.5 gm Q15M PRN PO DECREASED GLUCOSE; Start 07/20/18 at 23:00 Dextrose (D50w Syringe) 25 ml Q15M PRN IV DECREASED GLUCOSE; Start 07/20/18 at 23:00 Dextrose (D50w Syringe) 50 ml Q15M PRN IV DECREASED GLUCOSE; Start 07/20/18 at 23:00 Glucagon (Glucagen) 1 mg Q15M PRN IM DECREASED GLUCOSE; Start 07/20/18 at 23:00 Glucose (Glutose) 15 gm Q15M PRN BUCCAL DECREASED GLUCOSE; Start 07/20/18 at 23:00 Melatonin (Melatonin) 3 mg HS PRN PO INSOMNIA Last administered on 09/02/18at 02:38; Admin Dose 3 MG; Start 07/20/18 at 23:00 Heparin Sodium (Porcine) 5,000 unit Q12 SC Last administered on 09/03/18at 10:13; Admin Dose 5,000 UNIT; Start 07/21/18 at 21:00 Diclofenac Sodium (Voltaren 1% Gel) 2 gm QID TP Last administered on 09/03/18at 10:11; Admin Dose 2 GM; Start 07/22/18 at 13:00 Guaifenesin/ Dextromethorphan (Robitussin Dm Liquid Cup) 10 ml Q4H PRN PO COUGH; Start 07/30/18 at 15:00 Heparin Sodium (Porcine) (Heparin (1000 Units/ml)) 4,000 unit AFTER DIALYSIS CATHETER Last administered on 09/03/18at 00:52; Admin Dose 4,700 UNIT; Start 07/31/18 at 18:00 Sodium Chloride (NS) -To prime the dialy... DIRECTED FOR HD PRN IV HD; Start 07/31/18 at 18:00 Loratadine (Claritin) 10 mg DAILY PRN PO ALLERGIC REACTION Last administered on 08/07/18at 12:48; Admin Dose 10 MG; Start 08/07/18 at 12:30 Hydralazine HCl (Apresoline) 10 mg Q6H PRN PO ELEVATED BLOOD PRESSURE Last administered on 08/30/18at 02:15; Admin Dose 10 MG; Start 08/08/18 at 04:30 Hydralazine HCl (Apresoline) 25 mg TID PO Last administered on 09/03/18 10:10; Admin Dose 25 MG; Start 08/08/18 at 13:00 Eye Lubricant (Artificial Tears Oph) 2 drop QID BOTH EYES Last administered on 09/03/18 10:11; Admin Dose 2 DROP; Start 08/09/18 at 11:00 Calcium Carbonate (Tums) 500 mg PRN PRN PO HEARTBURN Last administered on 09/03/18 12:33; Admin Dose 500 MG; Start 08/09/18 at 14:30 Bisacodyl (Dulcolax Supp) 10 mg DAILY PRN [place] CONSTIPATION; Start 08/13/18 at 15:00 Furosemide (Lasix) 40 mg DAILY PO Last administered on 09/03/18 10:11; Admin Dose 40 MG; Start 08/17/18 at 15:00 Famotidine (Pepcid) 20 mg DAILY PO Last administered on 09/03/18at 10:10; Admin Dose 20 MG; Start 08/22/18 at 09:00 Loperamide HCl (Imodium Cap) 2 mg QID PRN PO DIARRHEA; Start 08/21/18 at 16:00 Lactobacillus Acidophilus/ Rhamnosus (Culturelle) 1 cap BID PO Last administered on 09/02/18at 22:06; Admin Dose 1 CAP; Start 08/21/18 at 21:00 Nystatin (Nystatin Powder) 1 applic BID TOP Last administered on 09/03/18at 10:11; Admin Dose 1 APPLIC; Start 08/28/18 at 21:00 Tramadol HCl (Ultram) 100 mg Q6H PRN PO PAIN LEVEL 6-10 Last administered on 09/03/18at 10:32; Admin Dose 100 MG; Start 09/01/18 at 02:00 Results Result Diagram: 09/02/18 1600 09/01/18 1543 Results 24 hrs Laboratory Tests Test 09/02/18 16:00 09/02/18 17:54 09/02/18 21:22 09/03/18 10:05 White Blood Count 10.4 Red Blood Count 4.48 Hemoglobin 11.4 L Hematocrit 38.5 Mean Corpuscular 85.9 Volume Mean Corpuscular 25.4 L Hemoglobin Mean Corpuscular 29.6 L Hemoglobin Concen t Red Cell 16.5 H Distribution Width Platelet Count 341 Mean Platelet 10.2 Volume Immature 0.600 H Granulocytes % Neutrophils % 60.7 Lymphocytes % 26.8 Monocytes % 6.7 Eosinophils % 4.3 Basophils % 0.9 Nucleated Red 0.0 Blood Cells % Immature 0.060 H Granulocytes # Neutrophils # 6.3 Lymphocytes # 2.8 Monocytes # 0.7 Eosinophils # 0.5 Basophils # 0.1 Nucleated Red 0.0 Blood Cells # Hepatitis B NEGATIVE Surface Antigen Hepatitis B NEGATIVE Surface Antibody Bedside Glucose 136 122 110 WILLY MEDEIROS Sep 03, 2018 12:46
[2018-09-03] MEDS: ONDANSETRON 4 MG TAB PO PRN (16:11)
[2018-09-03 21:36] VITALS: BP 179/80; PULSE 78; RESP 18
[2018-09-03] MEDS: ACCU-CHEK XX SCH (21:49)
[2018-09-04] MEDS: traMADol 50 MG TAB PO PRN ×4 (02:43→21:22)
[2018-09-04] MEDS: MELATONIN 3 MG TABLET PO PRN ×2 (02:46→22:25)
[2018-09-04 02:52] VITALS: BP 122/91; PULSE 85; RESP 18
[2018-09-04] MEDS: CALCIUM CARBONATE 500 MG CHEW TAB PO PRN (04:18)
[2018-09-04 08:44] VITALS: BP 123/66; PULSE 76; RESP 12
[2018-09-04] MEDS ORDERED: HEPARIN 5,000 UNIT/0.5 ML VIAL ONE ×2 (08:49→21:07)
[2018-09-04] MEDS: FUROSEMIDE 40 MG TAB PO SCH (08:54)
[2018-09-04] MEDS: LACTOBACILLUS RHAMNOSUS CAP PO SCH ×3 (08:54→21:00)
[2018-09-04] MEDS: ALLOPURINOL 100 MG TAB PO SCH (08:54)
[2018-09-04] MEDS: FAMOTIDINE 20 MG TAB PO SCH (08:54)
[2018-09-04] MEDS: HEPARIN 5,000 UNIT/1 ML VIAL SC SCH ×2 (09:02→21:21)
[2018-09-04] MEDS: NYSTATIN 30 GM POWDER BTL TOP SCH ×2 (09:03→21:00)
[2018-09-04] MEDS: ARTIFICIAL TEARS 15 ML OPH BOTH EYES SCH ×4 (09:03→21:16)
[2018-09-04] MEDS: BALSAM PERU/CASTOR OIL 60 GM TUBE TOP SCH ×2 (09:03→21:00)
[2018-09-04] MEDS: DICLOFENAC SODIUM 1% GEL 100 GM TUBE TP SCH ×4 (09:03→21:00)
[2018-09-04] MEDS: INSULIN ASPART [NOVOLOG] 3 ML PEN SC SCH ×4 (09:05→21:00)
[2018-09-04] MEDS: BISACODYL (EC) 5 MG TAB PO PRN (11:44)
[2018-09-04] MEDS: ERGOCALCIFEROL 50,000 UNIT CAP PO SCH (11:48)
--- NOTE | 2018-09-04 18:14 | PN ---
Date/Time of Note Date/Time of Note DATE: 09/04/18 TIME: 18:12 Assessment/Plan VTE Prophylaxis Risk score (from Ns)>0 risk: 4 SCD applied (from [facility] [place]): Yes Pharmacological prophylaxis: other Pharm contraindication: other Lines/Catheters IV C[facility]ter Type (from [facility]): permacath Urinary Cath still in place: No Assessment/Plan Hospital Course 1. ckd 2. c diff hx 3. Chronic kidney disease, 4. Morbid obesity. 5. Diabetes. 6. Hypertension, 7. Gout.hx 8. Neuropathy. 9. History of congestive heart failure. 10 weakness 11 deconditioning 12 hyperkalemia on hd 13 non compliancew meds and hd plan need out pt work up Subjective 24 Hr Interval Summary ENT: no complaints Respiratory: no complaints Cardiovascular: no complaints Gastrointestinal: no complaints Musculoskeletal: bone/joint pain (+) Exam/Review of Systems Vital Signs Vitals Vital Signs Date Temp Pulse Resp B/P (MAP) Pulse Ox O2 O2 Flow FiO2 Time Delivery Rate 09/04/18 98.8 76 12 123/66 96 Room Air 08:44 (85) 09/02/18 3.0 21:30 Intake and Output 09/03/18 09/03/18 09/04/18 1515:00 23:00 07:00 IntakeIntake Total 400 ml BalanceBalance 400 ml Exam Neck: supple Respiratory: clear to auscultation Cardiovascular: regular rate and rhythm Gastrointestinal: soft Musculoskeletal: range of motion (+) Medications Medications Current Medications Acetaminophen (Tylenol Tab) 325 mg Q4H PRN PO MILD PAIN(1-3)OR ELEVATED TEMP Last administered on 08/14/18at 17:29; Admin Dose 325 MG; Start 07/20/18 at 23:00 Allopurinol (Zyloprim) 100 mg DAILY PO Last administered on 09/04/18at 08:54; Admin Dose 100 MG; Start 07/21/18 at 09:00 IV Flush (NS 3 ml) 3 ml PER PROTOCOL IV ; Start 07/20/18 at 23:00 Acetaminophen (Tylenol Tab) 650 mg Q6H PRN PO PAIN LEVEL 1-3 OR FEVER Last administered on 08/21/18at 01:16; Admin Dose 650 MG; Start 07/20/18 at 23:00 Acetaminophen (Tylenol Supp) 650 mg Q6H PRN [place] PAIN LEVEL 1-3 OR FEVER; Start 07/20/18 at 23:00 Docusate Sodium (Colace) 100 mg Q12H PRN PO CONSTIPATION Last administered on 08/25/18at 21:28; Admin Dose 100 MG; Start 07/20/18 at 23:00 Bisacodyl (Dulcolax) 5 mg DAILY PRN PO CONSTIPATION Last administered on 09/04/18at 11:44; Admin Dose 5 MG; Start 07/20/18 at 23:00 Diagnostic Test (Pha) (Accu-Chek) 1 ea 02 XX Last administered on 09/02/18at 02:04; Admin Dose 1 EA; Start 07/21/18 at 02:00 Insulin Aspart (Novolog Insulin Pen) NOVOLOG *MILD* ALGORITHM WITH MEALS BEDTIME SC Last administered on 09/01/18 20:42; Admin Dose 1 UNIT; Start 07/21/18 at 07:50 Ergocalciferol (Drisdol) 50,000 unit Lacy@0900 PO Last administered on 09/04/18 11:48; Admin Dose 50,000 UNIT; Start 07/24/18 at 09:00 Miscellaneous Information 1 ea NOTE XX ; Start 07/20/18 at 23:00 Glucose (Glutose) 15 gm Q15M PRN PO DECREASED GLUCOSE; Start 07/20/18 at 23:00 Glucose (Glutose) 22.5 gm Q15M PRN PO DECREASED GLUCOSE; Start 07/20/18 at 23:00 Dextrose (D50w Syringe) 25 ml Q15M PRN IV DECREASED GLUCOSE; Start 07/20/18 at 23:00 Dextrose (D50w Syringe) 50 ml Q15M PRN IV DECREASED GLUCOSE; Start 07/20/18 at 23:00 Glucagon (Glucagen) 1 mg Q15M PRN IM DECREASED GLUCOSE; Start 07/20/18 at 23:00 Glucose (Glutose) 15 gm Q15M PRN BUCCAL DECREASED GLUCOSE; Start 07/20/18 at 23:00 Melatonin (Melatonin) 3 mg HS PRN PO INSOMNIA Last administered on 09/04/18at 02:46; Admin Dose 3 MG; Start 07/20/18 at 23:00 Heparin Sodium (Porcine) 5,000 unit Q12 SC Last administered on 09/04/18at 09:02; Admin Dose 5,000 UNIT; Start 07/21/18 at 21:00 Diclofenac Sodium (Voltaren 1% Gel) 2 gm QID TP Last administered on 09/04/18 13:48; Admin Dose 2 GM; Start 07/22/18 at 13:00 Guaifenesin/ Dextromethorphan (Robitussin Dm Liquid Cup) 10 ml Q4H PRN PO COUGH; Start 07/30/18 at 15:00 Heparin Sodium (Porcine) (Heparin (1000 Units/ml)) 4,000 unit AFTER DIALYSIS CATHETER Last administered on 09/03/18at 00:52; Admin Dose 4,700 UNIT; Start 07/31/18 at 18:00 Sodium Chloride (NS) -To prime the dialy... DIRECTED FOR HD PRN IV HD; Start 07/31/18 at 18:00 Loratadine (Claritin) 10 mg DAILY PRN PO ALLERGIC REACTION Last administered on 08/07/18 12:48; Admin Dose 10 MG; Start 08/07/18 at 12:30 Hydralazine HCl (Apresoline) 10 mg Q6H PRN PO ELEVATED BLOOD PRESSURE Last administered on 08/30/18at 02:15; Admin Dose 10 MG; Start 08/08/18 at 04:30 Hydralazine HCl (Apresoline) 25 mg TID PO Last administered on 09/04/18 13:49; Admin Dose 25 MG; Start 08/08/18 at 13:00 Eye Lubricant (Artificial Tears Oph) 2 drop QID BOTH EYES Last administered on 09/04/18 13:48; Admin Dose 2 DROP; Start 08/09/18 at 11:00 Calcium Carbonate (Tums) 500 mg PRN PRN PO HEARTBURN Last administered on 09/04/18 04:18; Admin Dose 500 MG; Start 08/09/18 at 14:30 Bisacodyl (Dulcolax Supp) 10 mg DAILY PRN IN CONSTIPATION; Start 08/13/18 at 15:00 Furosemide (Lasix) 40 mg DAILY PO Last administered on 09/04/18at 08:54; Admin Dose 40 MG; Start 08/17/18 at 15:00 Famotidine (Pepcid) 20 mg DAILY PO Last administered on 09/04/18 08:54; Admin Dose 20 MG; Start 08/22/18 at 09:00 Loperamide HCl (Imodium Cap) 2 mg QID PRN PO DIARRHEA; Start 08/21/18 at 16:00 Lactobacillus Acidophilus/ Rhamnosus (Culturelle) 1 cap BID PO Last administered on 09/03/18at 21:12; Admin Dose 1 CAP; Start 08/21/18 at 21:00 Nystatin (Nystatin Powder) 1 applic BID TOP Last administered on 09/04/18at 09:03; Admin Dose 1 APPLIC; Start 08/28/18 at 21:00 Tramadol HCl (Ultram) 100 mg Q6H PRN PO PAIN LEVEL 6-10 Last administered on 09/04/18at 15:32; Admin Dose 100 MG; Start 09/01/18 at 02:00 Ondansetron HCl (Zofran Tab) 4 mg Q6H PRN PO NAUSEA AND/OR VOMITING Last admin istered on 09/03/18at 16:11; Admin Dose 4 MG; Start 09/03/18 at 16:00 Results Result Diagram: 09/02/18 1600 09/01/18 1543 Results 24 hrs Laboratory Tests Test 09/03/18 21:05 09/04/18 08:42 09/04/18 12:58 09/04/18 17:28 Bedside Glucose 107 115 128 143 BRIAN ROBLEDO MD Sep 04, 2018 18:13
[2018-09-04 19:55] VITALS: BP 152/71; PULSE 78; RESP 18
[2018-09-04] MEDS: DOCUSATE SODIUM 100 MG CAP PO PRN (22:21)
[2018-09-05] MEDS: ACCU-CHEK XX SCH (02:00)
[2018-09-05] MEDS: traMADol 50 MG TAB PO PRN ×4 (04:12→21:14)
[2018-09-05 04:16] VITALS: BP 131/62; PULSE 86; RESP 18
[2018-09-05] MEDS: DICLOFENAC SODIUM 1% GEL 100 GM TUBE TP SCH ×5 (04:20→21:16)
[2018-09-05 08:30] VITALS: BP 131/59; PULSE 85; RESP 18
[2018-09-05] MEDS: LACTOBACILLUS RHAMNOSUS CAP PO SCH ×2 (09:00→21:15)
[2018-09-05] MEDS: INSULIN ASPART [NOVOLOG] 3 ML PEN SC SCH ×4 (09:04→21:00)
[2018-09-05] MEDS ORDERED: HEPARIN 5,000 UNIT/0.5 ML VIAL ONE ×2 (09:11→21:07)
[2018-09-05] MEDS: NYSTATIN 30 GM POWDER BTL TOP SCH ×2 (09:55→21:00)
[2018-09-05] MEDS: BALSAM PERU/CASTOR OIL 60 GM TUBE TOP SCH ×2 (09:55→21:00)
[2018-09-05] MEDS: ALLOPURINOL 100 MG TAB PO SCH (09:56)
[2018-09-05] MEDS: ARTIFICIAL TEARS 15 ML OPH BOTH EYES SCH ×4 (09:56→21:00)
[2018-09-05] MEDS: FUROSEMIDE 40 MG TAB PO SCH (09:56)
[2018-09-05] MEDS: FAMOTIDINE 20 MG TAB PO SCH (09:56)
[2018-09-05] MEDS: HEPARIN 5,000 UNIT/1 ML VIAL SC SCH ×2 (09:58→21:28)
--- NOTE | 2018-09-05 13:13 | PN ---
Date/Time of Note Date/Time of Note DATE: 09/05/18 TIME: 13:10 Assessment/Plan VTE Prophylaxis Risk score (from Nsg)>0 risk: 6 SCD applied (from Nsg): Yes Pharmacological prophylaxis: heparin Lines/Catheters IV Catheter Type (from Nrsg): PERMACATH Urinary Cath still in place: No Assessment/Plan Hospital Course 58 y/o with 1. . ckd iii-iv now with the complications of hyperkalemia, patient has been refusing Kayexalate Velania has also been refusing dialysis, patient was explained the risks and consequences and patient completely understands the risks and consequences, now agreed, on and off Hd once a week 2. c diff hx 3. Chronic kidney disease, 4. Morbid obesity. 5. Diabetes. 6. Hypertension, 7. Gout.hx 8. Neuropathy. 9. History of congestive heart failure. 10 weakness 11 deconditioning 13 Left shoulde pain, TTP ? Frozen shoulder , shoulder impingement 14 s/p Fall ? AMS confusion likley due to UTI 15 uti klebsiella and enterococcus 16 diarrhea 15 vomtiing/? contipation> refuse labs again Plan - HD Once a week, -stool softners - Lactobacillus - cw with PT -- pt refused cortisone injecion per ortho - Wound care - US with thrombosed graft - Ortho consult however patient refused a cortisone shot - avoid narcotics as it would limit her ability to walk for PT as it happened last admission since pts goal is Physical therapy - low k diet, cw lasix -cw home hydralazine -tyenolol on as needed headache -dc v[place] as pt has been refusing it - warm compresses to shoulder Now pt wants to snif/ with HD, manager orange to arrange spoke to patient that she cannot change her decisions everytime as it takes a long time to arrnage for her discharge process Subjective 24 Hr Interval Summary Free Text/Dictation Pt now changed her mind that she wants o go to SNIF rather than home Exam/Review of Systems Vital Signs Vitals Vital Signs Date Temp Pulse Resp B/P (MAP) Pulse Ox O2 O2 Flow FiO2 Time Delivery Rate 09/05/18 98.6 86 18 131/62 92 04:16 (85) 09/04/18 Room Air 08:44 09/02/18 3.0 21:30 Intake and Output 09/04/18 09/04/18 09/05/18 1515:00 23:00 07:00 IntakeIntake Total 300 ml 570 ml BalanceBalance 300 ml 570 ml Exam right chest permcath Constitutional: alert, oriented, morbidly obese, lying on rt side Respiratory: clear to auscultation Cardiovascular: regular rate and rhythm Gastrointestinal: soft Medications Medications Current Medications Acetaminophen (Tylenol Tab) 325 mg Q4H PRN PO MILD PAIN(1-3)OR ELEVATED TEMP Last administered on 08/14/18 17:29; Admin Dose 325 MG; Start 07/20/18 at 23:00 Allopurinol (Zyloprim) 100 mg DAILY PO Last administered on 09/05/18 09:56; Admin Dose 100 MG; Start 07/21/18 at 09:00 IV Flush (NS 3 ml) 3 ml PER PROTOCOL IV ; Start 07/20/18 at 23:00 Acetaminophen (Tylenol Tab) 650 mg Q6H PRN PO PAIN LEVEL 1-3 OR FEVER Last administered on 08/21/18 01:16; Admin Dose 650 MG; Start 07/20/18 at 23:00 Acetaminophen (Tylenol Supp) 650 mg Q6H PRN [place] PAIN LEVEL 1-3 OR FEVER; Start 07/20/18 at 23:00 Docusate Sodium (Colace) 100 mg Q12H PRN PO CONSTIPATION Last administered on 09/04/18 22:21; Admin Dose 100 MG; Start 07/20/18 at 23:00 Bisacodyl (Dulcolax) 5 mg DAILY PRN PO CONSTIPATION Last administered on 09/04/18 11:44; Admin Dose 5 MG; Start 07/20/18 at 23:00 Diagnostic Test (Pha) (Accu-Chek) 1 ea 02 XX Last administered on 09/02/18 02:04; Admin Dose 1 EA; Start 07/21/18 at 02:00 Insulin Aspart (Novolog Insulin Pen) NOVOLOG *MILD* ALGORITHM WITH MEALS BEDTIME SC Last administered on 09/01/18at 20:42; Admin Dose 1 UNIT; Start 07/21/18 at 07:50 Ergocalciferol (Drisdol) 50,000 unit Lacy@0900 PO Last administered on 09/04/18 11:48; Admin Dose 50,000 UNIT; Start 07/24/18 at 09:00 Miscellaneous Information 1 ea NOTE XX ; Start 07/20/18 at 23:00 Glucose (Glutose) 15 gm Q15M PRN PO DECREASED GLUCOSE; Start 07/20/18 at 23:00 Glucose (Glutose) 22.5 gm Q15M PRN PO DECREASED GLUCOSE; Start 07/20/18 at 23:00 Dextrose (D50w Syringe) 25 ml Q15M PRN IV DECREASED GLUCOSE; Start 07/20/18 at 23:00 Dextrose (D50w Syringe) 50 ml Q15M PRN IV DECREASED GLUCOSE; Start 07/20/18 at 23:00 Glucagon (Glucagen) 1 mg Q15M PRN IM DECREASED GLUCOSE; Start 07/20/18 at 23:00 Glucose (Glutose) 15 gm Q15M PRN BUCCAL DECREASED GLUCOSE; Start 07/20/18 at 23:00 Melatonin (Melatonin) 3 mg HS PRN PO INSOMNIA Last administered on 09/04/18at 22:25; Admin Dose 3 MG; Start 07/20/18 at 23:00 Heparin Sodium (Porcine) 5,000 unit Q12 SC Last administered on 09/05/18at 09:58; Admin Dose 5,000 UNIT; Start 07/21/18 at 21:00 Diclofenac Sodium (Voltaren 1% Gel) 2 gm QID TP Last administered on 09/05/18at 09:55; Admin Dose 2 GM; Start 07/22/18 at 13:00 Guaifenesin/ Dextromethorphan (Robitussin Dm Liquid Cup) 10 ml Q4H PRN PO COUGH; Start 07/30/18 at 15:00 Heparin Sodium (Porcine) (Heparin (1000 Units/ml)) 4,000 unit AFTER DIALYSIS CATHETER Last administered on 09/03/18at 00:52; Admin Dose 4,700 UNIT; Start 07/31/18 at 18:00 Sodium Chloride (NS) -To prime the dialy... DIRECTED FOR HD PRN IV HD; Start 07/31/18 at 18:00 Loratadine (Claritin) 10 mg DAILY PRN PO ALLERGIC REACTION Last administered on 08/07/18at 12:48; Admin Dose 10 MG; Start 08/07/18 at 12:30 Hydralazine HCl (Apresoline) 10 mg Q6H PRN PO ELEVATED BLOOD PRESSURE Last administered on 08/30/18 02:15; Admin Dose 10 MG; Start 08/08/18 at 04:30 Hydralazine HCl (Apresoline) 25 mg TID PO Last administered on 09/05/18 09:56; Admin Dose 25 MG; Start 08/08/18 at 13:00 Eye Lubricant (Artificial Tears Oph) 2 drop QID BOTH EYES Last administered on 09/05/18 09:56; Admin Dose 2 DROP; Start 08/09/18 at 11:00 Calcium Carbonate (Tums) 500 mg PRN PRN PO HEARTBURN Last administered on 09/04/18 04:18; Admin Dose 500 MG; Start 08/09/18 at 14:30 Bisacodyl (Dulcolax Supp) 10 mg DAILY PRN [place] CONSTIPATION; Start 08/13/18 at 15:00 Furosemide (Lasix) 40 mg DAILY PO Last administered on 09/05/18 09:56; Admin Dose 40 MG; Start 08/17/18 at 15:00 Famotidine (Pepcid) 20 mg DAILY PO Last administered on 09/05/18 09:56; Admin Dose 20 MG; Start 08/22/18 at 09:00 Loperamide HCl (Imodium Cap) 2 mg QID PRN PO DIARRHEA; Start 08/21/18 at 16:00 Lactobacillus Acidophilus/ Rhamnosus (Culturelle) 1 cap BID PO Last administered on 09/03/18at 21:12; Admin Dose 1 CAP; Start 08/21/18 at 21:00 Nystatin (Nystatin Powder) 1 applic BID TOP Last administered on 09/05/18 09:55; Admin Dose 1 APPLIC; Start 08/28/18 at 21:00 Tramadol HCl (Ultram) 100 mg Q6H PRN PO PAIN LEVEL 6-10 Last administered on 09/05/18 09:57; Admin Dose 100 MG; Start 09/01/18 at 02:00 Ondansetron HCl (Zofran Tab) 4 mg Q6H PRN PO NAUSEA AND/OR VOMITING Last administered on 09/03/18 16:11; Admin Dose 4 MG; Start 09/03/18 at 16:00 Results Result Diagram: 09/02/18 1600 09/01/18 1543 Results 24 hrs Laboratory Tests Test 09/04/18 17:28 09/04/18 21:15 09/05/18 08:59 09/05/18 12:49 Bedside Glucose 143 122 101 114 KOFI SWANN MD Sep 05, 2018 13:13
[2018-09-05 14:15] VITALS: BP 141/73; PULSE 97; RESP 18
[2018-09-05 19:55] VITALS: BP 124/78; PULSE 85; RESP 18
[2018-09-06] MEDS: MELATONIN 3 MG TABLET PO PRN (01:09)
[2018-09-06] MEDS: ACCU-CHEK XX SCH (02:00)
[2018-09-06 02:26] VITALS: BP 178/81; PULSE 78; RESP 18
[2018-09-06] MEDS: traMADol 50 MG TAB PO PRN ×4 (03:25→21:48)
[2018-09-06] MEDS: BISACODYL (EC) 5 MG TAB PO PRN (04:59)
[2018-09-06] MEDS ORDERED: HEPARIN 5,000 UNIT/0.5 ML VIAL ONE ×2 (08:04→20:59)
[2018-09-06 08:28] VITALS: BP 160/72; PULSE 82; RESP 18
[2018-09-06] MEDS: BALSAM PERU/CASTOR OIL 60 GM TUBE TOP SCH ×2 (09:00→21:47)
[2018-09-06] MEDS: NYSTATIN 30 GM POWDER BTL TOP SCH ×2 (09:00→21:47)
[2018-09-06] MEDS: LACTOBACILLUS RHAMNOSUS CAP PO SCH ×2 (09:00→21:04)
[2018-09-06] MEDS: DICLOFENAC SODIUM 1% GEL 100 GM TUBE TP SCH ×4 (09:00→21:47)
[2018-09-06] MEDS: ARTIFICIAL TEARS 15 ML OPH BOTH EYES SCH ×4 (09:08→21:03)
[2018-09-06] MEDS: INSULIN ASPART [NOVOLOG] 3 ML PEN SC SCH ×4 (09:08→21:00)
[2018-09-06] MEDS: FUROSEMIDE 40 MG TAB PO SCH (09:09)
[2018-09-06] MEDS: FAMOTIDINE 20 MG TAB PO SCH (09:09)
[2018-09-06] MEDS: ALLOPURINOL 100 MG TAB PO SCH (09:09)
[2018-09-06] MEDS: HEPARIN 5,000 UNIT/1 ML VIAL SC SCH ×2 (09:30→21:08)
--- NOTE | 2018-09-06 16:12 | PN ---
Date/Time of Note Date/Time of Note DATE: 09/06/18 TIME: 16:11 Assessment/Plan VTE Prophylaxis Risk score (from Nsg)>0 risk: 4 SCD applied (from Ns): No SCD contraindicated: low risk/ambulating Pharmacological prophylaxis: NA/contraindicated, heparin Pharm contraindication: other Lines/Catheters [facility] PERMA CATH Urinary Cath still in place: No Assessment/Plan Hospital Course 58 y/o with 1. . ckd iii-iv now with the complications of hyperkalemia, patient has been refusing Kayexalate Veltassa has also been refusing dialysis, patient was explained the risks and consequences and patient completely understands the risks and consequences, now agreed, on and off Hd once a week 2. c diff hx 3. Chronic kidney disease, 4. Morbid obesity. 5. Diabetes. 6. Hypertension, 7. Gout.hx 8. Neuropathy. 9. History of congestive heart failure. 10 weakness 11 deconditioning 13 Left shoulde pain, TTP ? Frozen shoulder , shoulder impingement 14 s/p Fall ? AMS confusion likley due to UTI 15 uti klebsiella and enterococcus 16 diarrhea 15 vomtiing/? 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 spoke to patient that she cannot change her decisions everytime as it takes a long time to arrnage for her discharge process dispo SNIF with HD Subjective 24 Hr Interval Summary Free Text/Dictation ?snif Pt was unhappy yesterday Exam/Review of Systems Vital Signs Vitals Vital Signs Date Temp Pulse Resp B/P (MAP) Pulse Ox O2 O2 Flow FiO2 Time Delivery Rate 09/06/18 98.6 82 18 160/72 92 Room Air 08:28 (101) 09/02/18 3.0 21:30 Intake and Output 09/05/18 09/05/18 09/06/18 1515:00 23:00 07:00 IntakeIntake Total 360 ml 480 ml BalanceBalance 360 ml 480 ml Exam ght chest permcath Constitutional: alert, oriented, morbidly obese, lying on rt side Respiratory: clear to auscultation Cardiovascular: regular rate and rhythm Gastrointestinal: soft Medications Medications Current Medications Acetaminophen (Tylenol Tab) 325 mg Q4H PRN PO MILD PAIN(1-3)OR ELEVATED TEMP Last administered on 08/14/18 17:29; Admin Dose 325 MG; Start 07/20/18 at 23:00 Allopurinol (Zyloprim) 100 mg DAILY PO Last administered on 09/06/18 09:09; Admin Dose 100 MG; Start 07/21/18 at 09:00 IV Flush (NS 3 ml) 3 ml PER PROTOCOL IV ; Start 07/20/18 at 23:00 Acetaminophen (Tylenol Tab) 650 mg Q6H PRN PO PAIN LEVEL 1-3 OR FEVER Last administered on 08/21/18 01:16; Admin Dose 650 MG; Start 07/20/18 at 23:00 Acetaminophen (Tylenol Supp) 650 mg Q6H PRN [place] PAIN LEVEL 1-3 OR FEVER; Start 07/20/18 at 23:00 Docusate Sodium (Colace) 100 mg Q12H PRN PO CONSTIPATION Last administered on 09/04/18 22:21; Admin Dose 100 MG; Start 07/20/18 at 23:00 Bisacodyl (Dulcolax) 5 mg DAILY PRN PO CONSTIPATION Last administered on 09/06/18 04:59; Admin Dose 5 MG; Start 07/20/18 at 23:00 Diagnostic Test (Pha) (Accu-Chek) 1 ea 02 XX Last administered on 09/02/18 02:04; Admin Dose 1 EA; Start 07/21/18 at 02:00 Insulin Aspart (Novolog Insulin Pen) NOVOLOG *MILD* ALGORITHM WITH MEALS BEDTIME SC Last administered on 09/01/18 20:42; Admin Dose 1 UNIT; Start 07/21/18 at 07:50 Ergocalciferol (Drisdol) 50,000 unit Lacy@0900 PO Last administered on 12/2/18at 11:48; Admin Dose 50,000 UNIT; Start 07/24/18 at 09:00 Miscellaneous Information 1 ea NOTE XX ; Start 07/20/18 at 23:00 Glucose (Glutose) 15 gm Q15M PRN PO DECREASED GLUCOSE; Start 07/20/18 at 23:00 Glucose (Glutose) 22.5 gm Q15M PRN PO DECREASED GLUCOSE; Start 07/20/18 at 23:00 Dextrose (D50w Syringe) 25 ml Q15M PRN IV DECREASED GLUCOSE; Start 07/20/18 at 23:00 Dextrose (D50w Syringe) 50 ml Q15M PRN IV DECREASED GLUCOSE; Start 07/20/18 at 23:00 Glucagon (Glucagen) 1 mg Q15M PRN IM DECREASED GLUCOSE; Start 07/20/18 at 23:00 Glucose (Glutose) 15 gm Q15M PRN BUCCAL DECREASED GLUCOSE; Start 07/20/18 at 23:00 Melatonin (Melatonin) 3 mg HS PRN PO INSOMNIA Last administered on 09/06/18at 01:09; Admin Dose 3 MG; Start 07/20/18 at 23:00 Heparin Sodium (Porcine) 5,000 unit Q12 SC Last administered on 09/06/18at 09:30; Admin Dose 5,000 UNIT; Start 07/21/18 at 21:00 Diclofenac Sodium (Voltaren 1% Gel) 2 gm QID TP Last administered on 09/05/18at 21:16; Admin Dose 2 GM; Start 07/22/18 at 13:00 Guaifenesin/ Dextromethorphan (Robitussin Dm Liquid Cup) 10 ml Q4H PRN PO COUGH; Start 07/30/18 at 15:00 Heparin Sodium (Porcine) (Heparin (1000 Units/ml)) 4,000 unit AFTER DIALYSIS CATHETER Last administered on 09/03/18at 00:52; Admin Dose 4,700 UNIT; Start 07/31/18 at 18:00 Sodium Chloride (NS) -To prime the dialy... DIRECTED FOR HD PRN IV HD; Start 07/31/18 at 18:00 Loratadine (Claritin) 10 mg DAILY PRN PO ALLERGIC REACTION Last administered on 08/07/18at 12:48; Admin Dose 10 MG; Start 08/07/18 at 12:30 Hydralazine HCl (Apresoline) 10 mg Q6H PRN PO ELEVATED BLOOD PRESSURE Last administered on 08/30/18 02:15; Admin Dose 10 MG; Start 08/08/18 at 04:30 Hydralazine HCl (Apresoline) 25 mg TID PO Last administered on 09/06/18 13:12; Admin Dose 25 MG; Start 08/08/18 at 13:00 Eye Lubricant (Artificial Tears Oph) 2 drop QID BOTH EYES Last administered on 09/06/18 09:08; Admin Dose 2 DROP; Start 08/09/18 at 11:00 Calcium Carbonate (Tums) 500 mg PRN PRN PO HEARTBURN Last administered on 09/04/18 04:18; Admin Dose 500 MG; Start 08/09/18 at 14:30 Bisacodyl (Dulcolax Supp) 10 mg DAILY PRN [place] CONSTIPATION; Start 08/13/18 at 15:00 Furosemide (Lasix) 40 mg DAILY PO Last administered on 09/06/18 09:09; Admin Dose 40 MG; Start 08/17/18 at 15:00 Famotidine (Pepcid) 20 mg DAILY PO Last administered on 09/06/18 09:09; Admin Dose 20 MG; Start 08/22/18 at 09:00 Loperamide HCl (Imodium Cap) 2 mg QID PRN PO DIARRHEA; Start 08/21/18 at 16:00 Lactobacillus Acidophilus/ Rhamnosus (Culturelle) 1 cap BID PO Last administered on 09/05/18at 21:15; Admin Dose 1 CAP; Start 08/21/18 at 21:00 Nystatin (Nystatin Powder) 1 applic BID TOP Last administered on 09/05/18 09:55; Admin Dose 1 APPLIC; Start 08/28/18 at 21:00 Tramadol HCl (Ultram) 100 mg Q6H PRN PO PAIN LEVEL 6-10 Last administered on 09/06/18 15:40; Admin Dose 100 MG; Start 09/01/18 at 02:00 Ondansetron HCl (Zofran Tab) 4 mg Q6H PRN PO NAUSEA AND/OR VOMITING Last administered on 09/03/18at 16:11; Admin Dose 4 MG; Start 09/03/18 at 16:00 Results Result Diagram: 09/06/18 1547 Results 24 hrs Laboratory Tests Test 09/05/18 17:45 09/05/18 21:18 09/06/18 09:07 09/06/18 13:10 Bedside Glucose 155 152 106 116 Test 09/06/18 15:47 White Blood Count 13.2 #H Red Blood Count 4.79 Hemoglobin 12.4 Hematocrit 41.0 Mean Corpuscular 85.6 Volume Mean Corpuscular 25.9 L Hemoglobin Mean Corpuscular 30.2 L Hemoglobin Concent Red Cell 16.5 H Distribution Width Platelet Count 309 Mean Platelet Volume 10.1 Immature 0.800 H Granulocytes % Neutrophils % 77.0 Lymphocytes % 14.4 L Monocytes % 4.6 Eosinophils % 2.6 Basophils % 0.6 Nucleated Red Blood 0.0 Cells % Immature 0.100 H Granulocytes # Neutrophils # 10.1 H Lymphocytes # 1.9 Monocytes # 0.6 Eosinophils # 0.3 Basophils # 0.1 Nucleated Red Blood 0.0 Cells # Sodium Level 139 Potassium Level 4.7 Chloride Level 99 Carbon Dioxide Level 29 Anion Gap 11 Blood Urea Nitrogen 49 H Creatinine 3.77 H Est Glomerular 12 L Filtrat Rate mL/min Glucose Level 181 Calcium Level 9.1 KOFI SWANN MD Sep 06, 2018 16:12
[2018-09-06 19:38] VITALS: BP 132/53; PULSE 80; RESP 16
[2018-09-07 00:58] VITALS: BP 124/92; PULSE 86; RESP 16
[2018-09-07] MEDS: MELATONIN 3 MG TABLET PO PRN ×2 (00:59→22:58)
[2018-09-07] MEDS: ACCU-CHEK XX SCH ×2 (01:43→20:59)
[2018-09-07] MEDS: traMADol 50 MG TAB PO PRN ×4 (03:56→22:59)
[2018-09-07] MEDS ORDERED: HEPARIN 5,000 UNIT/0.5 ML VIAL ONE ×2 (08:43→20:09)
[2018-09-07] MEDS: LACTOBACILLUS RHAMNOSUS CAP PO SCH ×3 (09:00→20:43)
[2018-09-07] MEDS: INSULIN ASPART [NOVOLOG] 3 ML PEN SC SCH ×4 (09:30→20:47)
[2018-09-07 09:36] VITALS: BP 137/64; PULSE 77; RESP 18
[2018-09-07] MEDS: FUROSEMIDE 40 MG TAB PO SCH (09:38)
[2018-09-07] MEDS: ALLOPURINOL 100 MG TAB PO SCH (09:39)
[2018-09-07] MEDS: FAMOTIDINE 20 MG TAB PO SCH (09:39)
[2018-09-07] MEDS: HEPARIN 5,000 UNIT/1 ML VIAL SC SCH ×2 (09:43→20:56)
[2018-09-07] MEDS: ARTIFICIAL TEARS 15 ML OPH BOTH EYES SCH ×4 (09:43→20:41)
[2018-09-07] MEDS: BALSAM PERU/CASTOR OIL 60 GM TUBE TOP SCH ×2 (09:43→20:44)
[2018-09-07] MEDS: DICLOFENAC SODIUM 1% GEL 100 GM TUBE TP SCH ×4 (09:43→20:44)
[2018-09-07] MEDS: NYSTATIN 30 GM POWDER BTL TOP SCH ×2 (09:43→20:44)
--- NOTE | 2018-09-07 16:17 | PN ---
Date/Time of Note Date/Time of Note DATE: 09/07/18 TIME: 16:16 Assessment/Plan VTE Prophylaxis Risk score (from Nsg)>0 risk: 6 SCD applied (from Ns): No SCD contraindicated: low risk/ambulating Pharmacological prophylaxis: heparin Lines/Catheters IV Catheter Type (from Nrsg): PERMA CATH Urinary Cath still in place: No Assessment/Plan Hospital Course 58 y/o with 1. . ckd iii-iv now with the complications of hyperkalemia, patient has been refusing Kayexalate Veltassa has also been refusing dialysis, patient was explained the risks and consequences and patient completely understands the risks and consequences, now agreed, on and off Hd once a week 2. c diff hx 3. Chronic kidney disease, 4. Morbid obesity. 5. Diabetes. 6. Hypertension, 7. Gout.hx 8. Neuropathy. 9. History of congestive heart failure. 10 weakness 11 deconditioning 13 Left shoulde pain, TTP ? Frozen shoulder , shoulder impingement 14 s/p Fall ? AMS confusion likley due to UTI 15 uti klebsiella and enterococcus 16 diarrhea 15 vomtiing/? contipation> refuse labs again Plan - HD Once a week, -stool softners - Lactobacillus - cw with PT -- pt refused cortisone injecion per ortho - Wound care - US with thrombosed graft - Ortho consult however patient refused a cortisone shot - avoid narcotics as it would limit her ability to walk for PT as it happened last admission since pts goal is Physical therapy - low k diet, cw lasix - RechecK UA due to leukocytosis -tyenolol on as needed headache -dc veltassa as pt has been refusing it - warm compresses to shoulder SNIF with HD Subjective 24 Hr Interval Summary Free Text/Dictation sometimes feel dizzy Exam/Review of Systems Vital Signs Vitals Vital Signs Date Temp Pulse Resp B/P (MAP) Pulse Ox O2 O2 Flow FiO2 Time Delivery Rate 09/07/18 97.7 77 18 137/64 92 Nasal 09:36 (88) Cannula 09/06/18 2.0 20:00 Intake and Output 09/06/18 09/06/18 09/07/18 1515:00 23:00 07:00 IntakeIntake Total 840 ml 240 ml BalanceBalance 840 ml 240 ml Exam ght chest permcath Constitutional: alert, oriented, morbidly obese, lying on rt side Respiratory: clear to auscultation Cardiovascular: regular rate and rhythm Gastrointestinal: soft Medications Medications Current Medications Acetaminophen (Tylenol Tab) 325 mg Q4H PRN PO MILD PAIN(1-3)OR ELEVATED TEMP Last administered on 08/14/18 17:29; Admin Dose 325 MG; Start 07/20/18 at 23:00 Allopurinol (Zyloprim) 100 mg DAILY PO Last administered on 09/07/18 09:39; Admin Dose 100 MG; Start 07/21/18 at 09:00 IV Flush (NS 3 ml) 3 ml PER PROTOCOL IV ; Start 07/20/18 at 23:00 Acetaminophen (Tylenol Tab) 650 mg Q6H PRN PO PAIN LEVEL 1-3 OR FEVER Last administered on 08/21/18 01:16; Admin Dose 650 MG; Start 07/20/18 at 23:00 Acetaminophen (Tylenol Supp) 650 mg Q6H PRN [place] PAIN LEVEL 1-3 OR FEVER; Start 07/20/18 at 23:00 Docusate Sodium (Colace) 100 mg Q12H PRN PO CONSTIPATION Last administered on 09/04/18 22:21; Admin Dose 100 MG; Start 07/20/18 at 23:00 Bisacodyl (Dulcolax) 5 mg DAILY PRN PO CONSTIPATION Last administered on 09/06/18 04:59; Admin Dose 5 MG; Start 07/20/18 at 23:00 Diagnostic Test (Pha) (Accu-Chek) 1 ea 02 XX Last administered on 09/02/18at 02:04; Admin Dose 1 EA; Start 07/21/18 at 02:00 Insulin Aspart (Novolog Insulin Pen) NOVOLOG *MILD* ALGORITHM WITH MEALS BEDTIME SC Last administered on 09/06/18 18:23; Admin Dose 2 UNIT; Start 07/21/18 at 07:50 Ergocalciferol (Drisdol) 50,000 unit Lacy@0900 PO Last administered on 09/04/18 11:48; Admin Dose 50,000 UNIT; Start 07/24/18 at 09:00 Miscellaneous Information 1 ea NOTE XX ; Start 07/20/18 at 23:00 Glucose (Glutose) 15 gm Q15M PRN PO DECREASED GLUCOSE; Start 07/20/18 at 23:00 Glucose (Glutose) 22.5 gm Q15M PRN PO DECREASED GLUCOSE; Start 07/20/18 at 23:00 Dextrose (D50w Syringe) 25 ml Q15M PRN IV DECREASED GLUCOSE; Start 07/20/18 at 23:00 Dextrose (D50w Syringe) 50 ml Q15M PRN IV DECREASED GLUCOSE; Start 07/20/18 at 23:00 Glucagon (Glucagen) 1 mg Q15M PRN IM DECREASED GLUCOSE; Start 07/20/18 at 23:00 Glucose (Glutose) 15 gm Q15M PRN BUCCAL DECREASED GLUCOSE; Start 07/20/18 at 23:00 Melatonin (Melatonin) 3 mg HS PRN PO INSOMNIA Last administered on 09/07/18at 00:59; Admin Dose 3 MG; Start 07/20/18 at 23:00 Heparin Sodium (Porcine) 5,000 unit Q12 SC Last administered on 09/07/18 09:43; Admin Dose 5,000 UNIT; Start 07/21/18 at 21:00 Diclofenac Sodium (Voltaren 1% Gel) 2 gm QID TP Last administered on 09/07/18at 09:43; Admin Dose 2 GM; Start 07/22/18 at 13:00 Guaifenesin/ Dextromethorphan (Robitussin Dm Liquid Cup) 10 ml Q4H PRN PO COUGH; Start 07/30/18 at 15:00 Heparin Sodium (Porcine) (Heparin (1000 Units/ml)) 4,000 unit AFTER DIALYSIS CATHETER Last administered on 09/03/18at 00:52; Admin Dose 4,700 UNIT; Start 07/31/18 at 18:00 Sodium Chloride (NS) -To prime the dialy... DIRECTED FOR HD PRN IV HD; Start 07/31/18 at 18:00 Loratadine (Claritin) 10 mg DAILY PRN PO ALLERGIC REACTION Last administered on 08/07/18at 12:48; Admin Dose 10 MG; Start 08/07/18 at 12:30 Hydralazine HCl (Apresoline) 10 mg Q6H PRN PO ELEVATED BLOOD PRESSURE Last administered on 08/30/18at 02:15; Admin Dose 10 MG; Start 08/08/18 at 04:30 Hydralazine HCl (Apresoline) 25 mg TID PO Last administered on 09/07/18 12:40; Admin Dose 25 MG; Start 08/08/18 at 13:00 Eye Lubricant (Artificial Tears Oph) 2 drop QID BOTH EYES Last administered on 09/07/18 09:43; Admin Dose 2 DROP; Start 08/09/18 at 11:00 Calcium Carbonate (Tums) 500 mg PRN PRN PO HEARTBURN Last administered on 09/04/18 04:18; Admin Dose 500 MG; Start 08/09/18 at 14:30 Bisacodyl (Dulcolax Supp) 10 mg DAILY PRN [place] CONSTIPATION; Start 08/13/18 at 15:00 Furosemide (Lasix) 40 mg DAILY PO Last administered on 09/07/18 09:38; Admin Dose 40 MG; Start 08/17/18 at 15:00 Famotidine (Pepcid) 20 mg DAILY PO Last administered on 09/07/18 09:39; Admin Dose 20 MG; Start 08/22/18 at 09:00 Loperamide HCl (Imodium Cap) 2 mg QID PRN PO DIARRHEA; Start 08/21/18 at 16:00 Lactobacillus Acidophilus/ Rhamnosus (Culturelle) 1 cap BID PO Last administered on 09/06/18 21:04; Admin Dose 1 CAP; Start 08/21/18 at 21:00 Nystatin (Nystatin Powder) 1 applic BID TOP Last administered on 09/07/18 09:43; Admin Dose 1 APPLIC; Start 08/28/18 at 21:00 Tramadol HCl (Ultram) 100 mg Q6H PRN PO PAIN LEVEL 6-10 Last administered on 09/07/18at 10:04; Admin Dose 100 MG; Start 09/01/18 at 02:00 Ondansetron HCl (Zofran Tab) 4 mg Q6H PRN PO NAUSEA AND/OR VOMITING Last administered on 09/03/18 16:11; Admin Dose 4 MG; Start 09/03/18 at 16:00 Miscellaneous Information (*Order Clarification Bulletin) MEDICATION REQUIRES CLARIFICATI... Q8H XX ; Start 09/07/18 at 13:30; Stop 09/09/18 at 23:59 Results Result Diagram: 09/06/18 1547 09/06/18 1547 Results 24 hrs Laboratory Tests Test 09/06/18 17:51 09/06/18 21:10 09/07/18 09:36 09/07/18 12:38 Bedside Glucose 194 112 130 140 KOFI SWANN MD Sep 07, 2018 16:17
[2018-09-07 16:36] VITALS: PULSE 81; RESP 18
[2018-09-07 19:30] VITALS: BP 101/55; PULSE 82; RESP 18
[2018-09-08 02:20] VITALS: BP 146/78; PULSE 81; RESP 18
[2018-09-08 04:14] VITALS: BP 162/73; PULSE 54; RESP 15
[2018-09-08] MEDS: traMADol 50 MG TAB PO PRN ×3 (05:33→17:25)
[2018-09-08] MEDS: INSULIN ASPART [NOVOLOG] 3 ML PEN SC SCH ×4 (07:50→21:00)
[2018-09-08] MEDS ORDERED: HEPARIN 5,000 UNIT/0.5 ML VIAL ONE ×2 (08:06→20:33)
[2018-09-08] MEDS: LACTOBACILLUS RHAMNOSUS CAP PO SCH ×2 (09:00→21:00)
[2018-09-08] MEDS: BALSAM PERU/CASTOR OIL 60 GM TUBE TOP SCH ×2 (09:00→21:00)
[2018-09-08] MEDS: ARTIFICIAL TEARS 15 ML OPH BOTH EYES SCH ×4 (09:00→21:00)
[2018-09-08] MEDS: DICLOFENAC SODIUM 1% GEL 100 GM TUBE TP SCH ×4 (09:00→22:17)
[2018-09-08] MEDS: NYSTATIN 30 GM POWDER BTL TOP SCH ×2 (09:00→21:00)
[2018-09-08 10:49] VITALS: BP 178/83; PULSE 80; RESP 18
[2018-09-08] MEDS: FAMOTIDINE 20 MG TAB PO SCH (11:49)
[2018-09-08] MEDS: FUROSEMIDE 40 MG TAB PO SCH (11:49)
[2018-09-08] MEDS: ALLOPURINOL 100 MG TAB PO SCH (11:49)
[2018-09-08] MEDS: HEPARIN 5,000 UNIT/1 ML VIAL SC SCH ×2 (12:45→22:09)
--- NOTE | 2018-09-08 17:23 | PN ---
Date/Time of Note Date/Time of Note DATE: 09/08/18 TIME: 17:21 Assessment/Plan VTE Prophylaxis Risk score (from Nsg)>0 risk: 4 SCD applied (from Nsg): Yes Pharmacological prophylaxis: heparin Lines/Catheters IV Catheter Type (from Nrsg): permacath Urinary Cath still in place: No Assessment/Plan Hospital Course 58 y/o with 1. . ckd iii-iv now with the complications of hyperkalemia, patient has been refusing Kayexalate Veltassmyla has also been refusing dialysis, patient was explained the risks and consequences and patient completely understands the risks and consequences, now agreed, on and off Hd once a week 2. c diff hx 3. Chronic kidney disease, 4. Morbid obesity. 5. Diabetes. 6. Hypertension, 7. Gout.hx 8. Neuropathy. 9. History of congestive heart failure. 10 weakness 11 deconditioning 13 Left shoulde pain, TTP ? Frozen shoulder , shoulder impingement 14 s/p Fall ? AMS confusion likley due to UTI 15 uti klebsiella and enterococcus 16 diarrhea 15 vomtiing/? contipation> refuse labs again Plan - HD Once a week, -stool softners - Lactobacillus - cw with PT -- pt refused cortisone injecion per ortho - Wound care - US with thrombosed graft - Ortho consult however patient refused a cortisone shot - avoid narcotics as it would limit her ability to walk for PT as it happened last admission since pts goal is Physical therapy - low k diet, cw lasix - RechecK UA due to leukocytosis -tyenolol on as needed headache -dc veltassa as pt has been refusing it - warm compresses to shoulder SNIF with HD Reconsider GI if the nausea does not improve however patient thinks it is her brain, but did not know where MRI was done few years ago and sees that the new MRI cannot be done in the hospital due to her weight Subjective 24 Hr Interval Summary Free Text/Dictation Patient felt a little dizziness upon questioning patient said that he had an MRI at an outside hospital which showed questionable some disease but when asked where the MRI was done she says she does not remember, then on patient said that she cannot get an MRI here because of her weight Exam/Review of Systems Vital Signs Vitals Vital Signs Date Temp Pulse Resp B/P (MAP) Pulse Ox O2 O2 Flow FiO2 Time Delivery Rate 12/6/18 98.0 80 18 178/83 93 10:49 (114) 09/07/18 Nasal 09:36 Cannula 09/06/18 2.0 20:00 Intake and Output 09/07/18 09/07/18 09/08/18 1515:00 23:00 07:00 IntakeIntake Total 240 ml 120 ml BalanceBalance 240 ml 120 ml Exam ght chest permcath Constitutional: alert, oriented, morbidly obese, lying on rt side Respiratory: clear to auscultation Cardiovascular: regular rate and rhythm Gastrointestinal: soft Medications Medications Medications Current Medications Acetaminophen (Tylenol Tab) 325 mg Q4H PRN PO MILD PAIN(1-3)OR ELEVATED TEMP Last administered on 08/14/18at 17:29; Admin Dose 325 MG; Start 07/20/18 at 23:00 Allopurinol (Zyloprim) 100 mg DAILY PO Last administered on 09/08/18at 11:49; Admin Dose 100 MG; Start 07/21/18 at 09:00 IV Flush (NS 3 ml) 3 ml PER PROTOCOL IV ; Start 07/20/18 at 23:00 Acetaminophen (Tylenol Tab) 650 mg Q6H PRN PO PAIN LEVEL 1-3 OR FEVER Last administered on 08/21/18 01:16; Admin Dose 650 MG; Start 07/20/18 at 23:00 Acetaminophen (Tylenol Supp) 650 mg Q6H PRN [place] PAIN LEVEL 1-3 OR FEVER; Start 07/20/18 at 23:00 Docusate Sodium (Colace) 100 mg Q12H PRN PO CONSTIPATION Last administered on 09/04/18 22:21; Admin Dose 100 MG; Start 07/20/18 at 23:00 Bisacodyl (Dulcolax) 5 mg DAILY PRN PO CONSTIPATION Last administered on 09/06/18 04:59; Admin Dose 5 MG; Start 07/20/18 at 23:00 Diagnostic Test (Pha) (Accu-Chek) 1 ea 02 XX Last administered on 09/02/18 02:04; Admin Dose 1 EA; Start 07/21/18 at 02:00 Insulin Aspart (Novolog Insulin Pen) NOVOLOG *MILD* ALGORITHM WITH MEALS BEDTIME SC Last administered on 09/07/18at 17:42; Admin Dose 2 UNIT; Start 07/21/18 at 07:50 Ergocalciferol (Drisdol) 50,000 unit Lacy@0900 PO Last administered on 09/04/18at 11:48; Admin Dose 50,000 UNIT; Start 07/24/18 at 09:00 Miscellaneous Information 1 ea NOTE XX ; Start 07/20/18 at 23:00 Glucose (Glutose) 15 gm Q15M PRN PO DECREASED GLUCOSE; Start 07/20/18 at 23:00 Glucose (Glutose) 22.5 gm Q15M PRN PO DECREASED GLUCOSE; Start 07/20/18 at 23:00 Dextrose (D50w Syringe) 25 ml Q15M PRN IV DECREASED GLUCOSE; Start 07/20/18 at 23:00 Dextrose (D50w Syringe) 50 ml Q15M PRN IV DECREASED GLUCOSE; Start 07/20/18 at 23:00 Glucagon (Glucagen) 1 mg Q15M PRN IM DECREASED GLUCOSE; Start 07/20/18 at 23:00 Glucose (Glutose) 15 gm Q15M PRN BUCCAL DECREASED GLUCOSE; Start 07/20/18 at 23:00 Melatonin (Melatonin) 3 mg HS PRN PO INSOMNIA Last administered on 09/07/18at 22:58; Admin Dose 3 MG; Start 07/20/18 at 23:00 Heparin Sodium (Porcine) 5,000 unit Q12 SC Last administered on 09/08/18at 12:45; Admin Dose 5,000 UNIT; Start 07/21/18 at 21:00 Diclofenac Sodium (Voltaren 1% Gel) 2 gm QID TP Last administered on 09/08/18at 09:00; Admin Dose 2 GM; Start 07/22/18 at 13:00 Guaifenesin/ Dextromethorphan (Robitussin Dm Liquid Cup) 10 ml Q4H PRN PO C OUGH; Start 07/30/18 at 15:00 Heparin Sodium (Porcine) (Heparin (1000 Units/ml)) 4,000 unit AFTER DIALYSIS CATHETER Last administered on 09/03/18at 00:52; Admin Dose 4,700 UNIT; Start 07/31/18 at 18:00 Sodium Chloride (NS) -To prime the dialy... DIRECTED FOR HD PRN IV HD; Start 07/31/18 at 18:00 Loratadine (Claritin) 10 mg DAILY PRN PO ALLERGIC REACTION Last administered on 08/07/18 12:48; Admin Dose 10 MG; Start 08/07/18 at 12:30 Hydralazine HCl (Apresoline) 10 mg Q6H PRN PO ELEVATED BLOOD PRESSURE Last administered on 08/30/18 02:15; Admin Dose 10 MG; Start 08/08/18 at 04:30 Hydralazine HCl (Apresoline) 25 mg TID PO Last administered on 09/08/18 16:10; Admin Dose 25 MG; Start 08/08/18 at 13:00 Eye Lubricant (Artificial Tears Oph) 2 drop QID BOTH EYES Last administered on 09/07/18 09:43; Admin Dose 2 DROP; Start 08/09/18 at 11:00 Calcium Carbonate (Tums) 500 mg PRN PRN PO HEARTBURN Last administered on 09/04/18 04:18; Admin Dose 500 MG; Start 08/09/18 at 14:30 Bisacodyl (Dulcolax Supp) 10 mg DAILY PRN [place] CONSTIPATION; Start 08/13/18 at 15:00 Furosemide (Lasix) 40 mg DAILY PO Last administered on 09/08/18 11:49; Admin Dose 40 MG; Start 08/17/18 at 15:00 Famotidine (Pepcid) 20 mg DAILY PO Last administered on 09/08/18 11:49; Admin Dose 20 MG; Start 08/22/18 at 09:00 Loperamide HCl (Imodium Cap) 2 mg QID PRN PO DIARRHEA; Start 08/21/18 at 16:00 Lactobacillus Acidophilus/ Rhamnosus (Culturelle) 1 cap BID PO Last administered on 09/06/18 21:04; Admin Dose 1 CAP; Start 08/21/18 at 21:00 Nystatin (Nystatin Powder) 1 applic BID TOP Last administered on 09/08/18 09:00; Admin Dose 1 APPLIC; Start 08/28/18 at 21:00 Tramadol HCl (Ultram) 100 mg Q6H PRN PO PAIN LEVEL 6-10 Last administered on 09/08/18 11:48; Admin Dose 100 MG; Start 09/01/18 at 02:00 Ondansetron HCl (Zofran Tab) 4 mg Q6H PRN PO NAUSEA AND/OR VOMITING Last administered on 12/1/18at 16:11; Admin Dose 4 MG; Start 09/03/18 at 16:00 Results Result Diagram: 09/06/18 1547 09/06/18 1547 Results 24 hrs Laboratory Tests Test 09/07/18 17:38 09/07/18 20:46 09/08/18 12:41 Bedside Glucose 197 173 129 KOFI SWANN MD Sep 08, 2018 17:23
[2018-09-08 20:30] VITALS: BP 113/57; PULSE 80; RESP 18
[2018-09-08] MEDS: MELATONIN 3 MG TABLET PO PRN (22:00)
[2018-09-08] MEDS: ACCU-CHEK XX SCH (22:17)
[2018-09-09] MEDS: traMADol 50 MG TAB PO PRN ×4 (00:49→20:37)
[2018-09-09 01:43] VITALS: BP 165/75; PULSE 78; RESP 18
[2018-09-09] MEDS: INSULIN ASPART [NOVOLOG] 3 ML PEN SC SCH ×4 (07:50→20:50)
[2018-09-09] MEDS: DICLOFENAC SODIUM 1% GEL 100 GM TUBE TP SCH ×4 (07:51→20:46)
[2018-09-09] MEDS ORDERED: HEPARIN 5,000 UNIT/0.5 ML VIAL ONE ×2 (08:24→20:31)
[2018-09-09] MEDS: LACTOBACILLUS RHAMNOSUS CAP PO SCH ×2 (09:00→20:43)
[2018-09-09] MEDS: NYSTATIN 30 GM POWDER BTL TOP SCH ×2 (09:00→20:43)
[2018-09-09] MEDS: ARTIFICIAL TEARS 15 ML OPH BOTH EYES SCH ×4 (09:00→20:43)
[2018-09-09] MEDS: BALSAM PERU/CASTOR OIL 60 GM TUBE TOP SCH ×2 (09:00→20:43)
[2018-09-09] MEDS: HEPARIN 5,000 UNIT/1 ML VIAL SC SCH ×2 (12:00→20:49)
[2018-09-09] MEDS: ALLOPURINOL 100 MG TAB PO SCH (12:00)
[2018-09-09] MEDS: FUROSEMIDE 40 MG TAB PO SCH (12:01)
[2018-09-09] MEDS: FAMOTIDINE 20 MG TAB PO SCH (12:02)
[2018-09-09] MEDS ORDERED: VANCOMYCIN IV PER PHARMACY XX SCH (16:30)
[2018-09-09] MEDS ORDERED: VANCOMYCIN 1.5 GM in SOD CHLORIDE 0.9% 250 ML IVPB SCH (18:30)
--- NOTE | 2018-09-09 19:33 | PN ---
Date/Time of Note Date/Time of Note DATE: 09/09/18 TIME: 19:32 Assessment/Plan VTE Prophylaxis Risk score (from Nsg)>0 risk: 3 SCD applied (from Nsg): Yes Pharmacological prophylaxis: heparin Lines/Catheters IV Catheter Type (from Nrsg): Permacath Urinary Cath still in place: No Assessment/Plan Hospital Course 58 y/o with 1. . ckd iii-iv now with the complications of hyperkalemia, patient has been refusing Kayexalate Veltabela has also been refusing dialysis, patient was explained the risks and consequences and patient completely understands the risks and consequences, now agreed, on and off Hd once a week 2. c diff hx 3. Chronic kidney disease, 4. Morbid obesity. 5. Diabetes. 6. Hypertension, 7. Gout.hx 8. Neuropathy. 9. History of congestive heart failure. 10 weakness 11 deconditioning 13 Left shoulde pain, TTP ? Frozen shoulder , shoulder impingement 14 s/p Fall ? AMS confusion likley due to UTI 15 uti klebsiella and enterococcus 16 diarrhea 15 vomtiing/? contipation> refuse labs again Plan - HD Once a week, -stool softners - Lactobacillus - cw with PT -- pt refused cortisone injecion per ortho - Wound care - US with thrombosed graft - Ortho consult however patient refused a cortisone shot - avoid narcotics as it would limit her ability to walk for PT as it happened last admission since pts goal is Physical therapy - low k diet, cw lasix - ABX PER ID -tyenolol on as needed headache -dc veltassa as pt has been refusing it - warm compresses to shoulder SNIF with HD Subjective 24 Hr Interval Summary Free Text/Dictation CX + MULTIPLE ORGANUSMS Exam/Review of Systems Vital Signs Vitals Vital Signs Date Temp Pulse Resp B/P (MAP) Pulse Ox O2 O2 Flow FiO2 Time Delivery Rate 09/09/18 98.1 78 18 165/75 94 01:43 (105) 09/07/18 Nasal 09:36 Cannula 09/06/18 2.0 20:00 Intake and Output 09/08/18 09/08/18 09/09/18 1515:00 23:00 07:00 IntakeIntake Total 900 ml 440 ml BalanceBalance 900 ml 440 ml Exam ght chest permcath Constitutional: alert, oriented, morbidly obese, lying on rt side Respiratory: clear to auscultation Cardiovascular: regular rate and rhythm Gastrointestinal: soft Medications Medications Current Medications Acetaminophen (Tylenol Tab) 325 mg Q4H PRN PO MILD PAIN(1-3)OR ELEVATED TEMP Last administered on 08/14/18 17:29; Admin Dose 325 MG; Start 07/20/18 at 23:00 Allopurinol (Zyloprim) 100 mg DAILY PO Last administered on 09/09/18 12:00; Admin Dose 100 MG; Start 07/21/18 at 09:00 IV Flush (NS 3 ml) 3 ml PER PROTOCOL IV ; Start 07/20/18 at 23:00 Acetaminophen (Tylenol Tab) 650 mg Q6H PRN PO PAIN LEVEL 1-3 OR FEVER Last administered on 08/21/18 01:16; Admin Dose 650 MG; Start 07/20/18 at 23:00 Acetaminophen (Tylenol Supp) 650 mg Q6H PRN [place] PAIN LEVEL 1-3 OR FEVER; Start 07/20/18 at 23:00 Docusate Sodium (Colace) 100 mg Q12H PRN PO CONSTIPATION Last administered on 09/04/18 22:21; Admin Dose 100 MG; Start 07/20/18 at 23:00 Bisacodyl (Dulcolax) 5 mg DAILY PRN PO CONSTIPATION Last administered on 09/06/18 04:59; Admin Dose 5 MG; Start 07/20/18 at 23:00 Diagnostic Test (Pha) (Accu-Chek) 1 ea 02 XX Last administered on 09/02/18 02:04; Admin Dose 1 EA; Start 07/21/18 at 02:00 Insulin Aspart (Novolog Insulin Pen) NOVOLOG *MILD* ALGORITHM WITH MEALS BEDTIME SC Last administered on 09/07/18 17:42; Admin Dose 2 UNIT; Start 07/21/18 at 07:50 Ergocalciferol (Drisdol) 50,000 unit Lacy@0900 PO Last administered on 09/04/18 11:48; Admin Dose 50,000 UNIT; Start 07/24/18 at 09:00 Miscellaneous Information 1 ea NOTE XX ; Start 07/20/18 at 23:00 Glucose (Glutose) 15 gm Q15M PRN PO DECREASED GLUCOSE; Start 07/20/18 at 23:00 Glucose (Glutose) 22.5 gm Q15M PRN PO DECREASED GLUCOSE; Start 07/20/18 at 23:00 Dextrose (D50w Syringe) 25 ml Q15M PRN IV DECREASED GLUCOSE; Start 07/20/18 at 23:00 Dextrose (D50w Syringe) 50 ml Q15M PRN IV DECREASED GLUCOSE; Start 07/20/18 at 23:00 Glucagon (Glucagen) 1 mg Q15M PRN IM DECREASED GLUCOSE; Start 07/20/18 at 23:00 Glucose (Glutose) 15 gm Q15M PRN BUCCAL DECREASED GLUCOSE; Start 07/20/18 at 23:00 Melatonin (Melatonin) 3 mg HS PRN PO INSOMNIA Last administered on 09/08/18at 22:00; Admin Dose 3 MG; Start 07/20/18 at 23:00 Heparin Sodium (Porcine) 5,000 unit Q12 SC Last administered on 09/09/18at 12:00; Admin Dose 5,000 UNIT; Start 07/21/18 at 21:00 Diclofenac Sodium (Voltaren 1% Gel) 2 gm QID TP Last administered on 09/09/18at 07:51; Admin Dose 2 GM; Start 07/22/18 at 13:00 Guaifenesin/ Dextromethorphan (Robitussin Dm Liquid Cup) 10 ml Q4H PRN PO COUGH; Start 07/30/18 at 15:00 Heparin Sodium (Porcine) (Heparin (1000 Units/ml)) 4,000 unit AFTER DIALYSIS CATHETER Last administered on 09/03/18at 00:52; Admin Dose 4,700 UNIT; Start 07/31/18 at 18:00 Sodium Chloride (NS) -To prime the dialy... DIRECTED FOR HD PRN IV HD; Start 07/31/18 at 18:00 Loratadine (Claritin) 10 mg DAILY PRN PO ALLERGIC REACTION Last administered on 08/07/18at 12:48; Admin Dose 10 MG; Start 08/07/18 at 12:30 Hydralazine HCl (Apresoline) 10 mg Q6H PRN PO ELEVATED BLOOD PRESSURE Last administered on 08/30/18at 02:15; Admin Dose 10 MG; Start 08/08/18 at 04:30 Hydralazine HCl (Apresoline) 25 mg TID PO Last administered on 09/09/18at 12:02; Admin Dose 25 MG; Start 08/08/18 at 13:00 Eye Lubricant (Artificial Tears Oph) 2 drop QID BOTH EYES Last administered on 09/07/18at 09:43; Admin Dose 2 DROP; Start 08/09/18 at 11:00 Calcium Carbonate (Tums) 500 mg PRN PRN PO HEARTBURN Last administered on 09/04/18 04:18; Admin Dose 500 MG; Start 08/09/18 at 14:30 Bisacodyl (Dulcolax Supp) 10 mg DAILY PRN [place] CONSTIPATION; Start 08/13/18 at 15:00 Furosemide (Lasix) 40 mg DAILY PO Last administered on 09/09/18 12:01; Admin Dose 40 MG; Start 08/17/18 at 15:00 Famotidine (Pepcid) 20 mg DAILY PO Last administered on 09/09/18 12:02; Admin Dose 20 MG; Start 08/22/18 at 09:00 Loperamide HCl (Imodium Cap) 2 mg QID PRN PO DIARRHEA; Start 08/21/18 at 16:00 Lactobacillus Acidophilus/ Rhamnosus (Culturelle) 1 cap BID PO Last administered on 09/06/18at 21:04; Admin Dose 1 CAP; Start 08/21/18 at 21:00 Nystatin (Nystatin Powder) 1 applic BID TOP Last administered on 09/08/18at 09:00; Admin Dose 1 APPLIC; Start 08/28/18 at 21:00 Tramadol HCl (Ultram) 100 mg Q6H PRN PO PAIN LEVEL 6-10 Last administered on 09/09/18at 12:29; Admin Dose 100 MG; Start 09/01/18 at 02:00 Ondansetron HCl (Zofran Tab) 4 mg Q6H PRN PO NAUSEA AND/OR VOMITING Last administered on 09/03/18at 16:11; Admin Dose 4 MG; Start 09/03/18 at 16:00 Vancomycin HCl (Vanco Iv Per Pharmacy) VANCOMYCIN PER PHARMACY PER PROTOCOL XX ; Start 09/09/18 at 16:30 Vancomycin HCl 1.5 gm/Sodium Chloride 250 ml @ 83.333 mls/ hr Q3H IVPB ; Start 09/09/18 at 18:30; Stop 09/10/18 at 00:29 Results Result Diagram: 09/06/18 1547 09/06/18 1547 Results 24 hrs Laboratory Tests Test 09/08/18 22:03 09/09/18 07:56 09/09/18 12:08 09/09/18 17:05 Bedside Glucose 143 99 107 146 KOFI SWANN MD Sep 09, 2018 19:33
[2018-09-09 19:40] VITALS: BP 111/74; PULSE 89; RESP 18
[2018-09-09] MEDS: MELATONIN 3 MG TABLET PO PRN (20:38)
[2018-09-09] MEDS: ACCU-CHEK XX SCH (20:50)
[2018-09-10 02:40] VITALS: BP 137/82; PULSE 77; RESP 20
[2018-09-10] MEDS: traMADol 50 MG TAB PO PRN ×4 (03:47→23:10)
[2018-09-10] MEDS: INSULIN ASPART [NOVOLOG] 3 ML PEN SC SCH ×4 (07:50→21:42)
[2018-09-10] MEDS: ONDANSETRON 4 MG TAB PO PRN (07:58)
[2018-09-10 08:03] VITALS: BP 177/104; PULSE 77; RESP 18
[2018-09-10] MEDS ORDERED: HEPARIN 5,000 UNIT/0.5 ML VIAL ONE ×2 (08:03→20:13)
[2018-09-10] MEDS: FAMOTIDINE 20 MG TAB PO SCH (08:05)
[2018-09-10] MEDS: ALLOPURINOL 100 MG TAB PO SCH (08:05)
[2018-09-10] MEDS: FUROSEMIDE 40 MG TAB PO SCH (08:06)
[2018-09-10] MEDS: LACTOBACILLUS RHAMNOSUS CAP PO SCH ×2 (08:07→21:00)
[2018-09-10] MEDS: DICLOFENAC SODIUM 1% GEL 100 GM TUBE TP SCH ×4 (08:08→21:39)
[2018-09-10] MEDS: BALSAM PERU/CASTOR OIL 60 GM TUBE TOP SCH ×2 (08:08→21:39)
[2018-09-10] MEDS: NYSTATIN 30 GM POWDER BTL TOP SCH ×2 (08:11→21:39)
[2018-09-10] MEDS: HEPARIN 5,000 UNIT/1 ML VIAL SC SCH ×2 (08:19→21:41)
[2018-09-10] MEDS: ARTIFICIAL TEARS 15 ML OPH BOTH EYES SCH ×4 (08:21→21:39)
--- NOTE | 2018-09-10 11:58 | CONS ---
Date/Time of Note Date/Time of Note DATE: 09/10/18 TIME: 11:57 Assessment/Plan Assessment/Plan Chief Complaint/Hosp Course ID PROGRESS NOTE CURRENT ABX: # Vanco IV == no IV access 09/10/18 1029 09/10/18 1029 24H INTERVAL SUMMARY * Prefers to sleep with the lights off -- awakens easily and is alert and responsive and IRRITABLE * She has no current IV and Rosannao has not been initated, she is not having HD on a regular basis. * ABD umbilical drainage is malodorous -- I informed her I can change her ABX to a Pill after she irritably complaints that she has no IV access, with this she tells me "then why did 3 other doctors tell me I need an IV" -- She appears to be chronically angry, morose, and has poor coping ability. * There are no fevers, chills, she has perpetual nausea -- suspect DM autonomic dysreflexia w/gastroparesis MICRO * 09/01/18 BODY FLUID CULTURE Final Organism 1 CORYNEBACTER VIKASHIUM (GRP JK) QUANTITY 3+ Organism 2 COAGULASE NEGATIVE STAPH QUANTITY SCANT GROWTH Organism 3 ENTEROCOCCUS SPECIES QUANTITY ISOLATED FROM BROTH ONLY COAG NEG ENT SPS M.I.C. RX M.I.C. RX --------- --- --------- --- AMPICILLIN <=2 S CEFAZOLIN R CIPROFLOXACIN 4 R CLINDAMYCIN >=8 R DOXYCYCLINE S ERYTHROMYCIN >=8 R LEVOFLOXACIN 4 R OXACILLIN >=4 R PENICILLIN-G >=0.5 R 2 S RIFAMPIN <=0.5 S VANCOMYCIN 1 S 1 S COAG NEG ENT SPS M.I.C. RX M.I.C. RX --------- --- --------- --- TRIMETHOPRIM/SULFAMETHOXAZOLE 80 R C VIJAYIKEIUM Zone Size RX --------- --- * AMPICILLIN R * CEFAZOLIN R * CEFOTAXIME R * CEFUROXIME R * CIPROFLOXACIN R * CLINDAMYCIN R * ERYTHROMYCIN R * PENICILLIN R * VANCOMYCIN S PHYSICAL EXAMINATION: GENERAL: Afebrile, VSS, super morbid obese HEENT: AT, NC, anicteric NECK: Supple, CHEST: Equal chest rise bilaterally, without dyspnea on observation HEART: Pulse RRR ABDOMEN: Super large pendulous pannus -- umbilical erythema w/degroot/brown colored clear drainage, malodorous EXTREMITIES: Warm, dry = Thrombosed left AV graft. 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 SIRS w/leukocytosis == local umbilical cellulitis w/malodorous drainage. * 09/01/18 BODY FLUID CULTURE Final Organism 1 CORYNEBACTER JEIKEIUM (GRP JK) QUANTITY 3+ Organism 2 COAGULASE NEGATIVE STAPH QUANTITY SCANT GROWTH Organism 3 ENTEROCOCCUS SPECIES QUANTITY ISOLATED FROM BROTH ONLY 2. End-stage renal disease, hemodialysis dependent * Thrombosed left AV graft. 3. Diabetes w/polyneuropathies 4. Nausea/emesis == suspect DM autonomic dysreflexia w/gastroparesis 5. H/O C dif 6. Hypertension, 7. Gout.hx 8. Neuropathy. 9. History of congestive heart failure. 10 Weakness & deconditioning 11 Left shoulde pain, TTP ? Frozen shoulder , shoulder impingement * Ortho consult however patient refused a cortisone shot 12 s/p Fall ? AMS confusion likley due to UTI 13. Mood disorder w/irritability and anger features (-)MRSA Nares ABX ALLERGIES: None to ABX (possible Iodine & Sulfa per listed allergy review) INVASIVES: PIV CURRENT ABX: DAY # = Start Zyvox + Topical Bactroban ointment to navel cellulitis ID RECOMMENDATIONS/PLAN: 1. Start Zyvox == short course 3-4 days + Topical Bactroban ointment to navel cellulitis 2. We can switch her to Vanco IV post HD next time it is planned. . Consultation Date/Type/Reason Admit Date/Time Jul 23, 2018 at 16:13 Initial Consult Date Exam/Review of Systems Vital Signs Vitals Vital Signs Date Temp Pulse Resp B/P (MAP) Pulse Ox O2 O2 Flow FiO2 Time Delivery Rate 09/10/18 98.1 77 18 177/104 95 Room Air 08:03 (128) 12//18 2.0 20:00 Intake and Output 09/09/18 09/09/18 09/10/18 1414:59 22:59 06:59 IntakeIntake Total 240 ml BalanceBalance 240 ml Medications Medications Current Medications Acetaminophen (Tylenol Tab) 325 mg Q4H PRN PO MILD PAIN(1-3)OR ELEVATED TEMP Last administered on 08/14/18 17:29; Admin Dose 325 MG; Start 07/20/18 at 23:00 Allopurinol (Zyloprim) 100 mg DAILY PO Last administered on 09/10/18 08:05; Admin Dose 100 MG; Start 07/21/18 at 09:00 IV Flush (NS 3 ml) 3 ml PER PROTOCOL IV ; Start 07/20/18 at 23:00 Acetaminophen (Tylenol Tab) 650 mg Q6H PRN PO PAIN LEVEL 1-3 OR FEVER Last administered on 08/21/18at 01:16; Admin Dose 650 MG; Start 07/20/18 at 23:00 Acetaminophen (Tylenol Supp) 650 mg Q6H PRN [place] PAIN LEVEL 1-3 OR FEVER; Start 07/20/18 at 23:00 Docusate Sodium (Colace) 100 mg Q12H PRN PO CONSTIPATION Last administered on 09/04/18 22:21; Admin Dose 100 MG; Start 07/20/18 at 23:00 Bisacodyl (Dulcolax) 5 mg DAILY PRN PO CONSTIPATION Last administered on 09/06/18 04:59; Admin Dose 5 MG; Start 07/20/18 at 23:00 Diagnostic Test (Pha) (Accu-Chek) 1 ea 02 XX Last administered on 09/02/18at 02:04; Admin Dose 1 EA; Start 07/21/18 at 02:00 Insulin Aspart (Novolog Insulin Pen) NOVOLOG *MILD* ALGORITHM WITH MEALS BEDTIME SC Last administered on 09/07/18at 17:42; Admin Dose 2 UNIT; Start 1 at 07:50 Ergocalciferol (Drisdol) 50,000 unit Lacy@0900 PO Last administered on 09/04/18 11:48; Admin Dose 50,000 UNIT; Start 07/24/18 at 09:00 Miscellaneous Information 1 ea NOTE XX ; Start 07/20/18 at 23:00 Glucose (Glutose) 15 gm Q15M PRN PO DECREASED GLUCOSE; Start 07/20/18 at 23:00 Glucose (Glutose) 22.5 gm Q15M PRN PO DECREASED GLUCOSE; Start 07/20/18 at 23:00 Dextrose (D50w Syringe) 25 ml Q15M PRN IV DECREASED GLUCOSE; Start 07/20/18 at 23:00 Dextrose (D50w Syringe) 50 ml Q15M PRN IV DECREASED GLUCOSE; Start 07/20/18 at 23:00 Glucagon (Glucagen) 1 mg Q15M PRN IM DECREASED GLUCOSE; Start 07/20/18 at 23:00 Glucose (Glutose) 15 gm Q15M PRN BUCCAL DECREASED GLUCOSE; Start 07/20/18 at 23:00 Melatonin (Melatonin) 3 mg HS PRN PO INSOMNIA Last administered on 09/09/18at 20:38; Admin Dose 3 MG; Start 07/20/18 at 23:00 Heparin Sodium (Porcine) 5,000 unit Q12 SC Last administered on 09/10/18at 08:19; Admin Dose 5,000 UNIT; Start 07/21/18 at 21:00 Diclofenac Sodium (Voltaren 1% Gel) 2 gm QID TP Last administered on 09/10/18 08:08; Admin Dose 2 GM; Start 07/22/18 at 13:00 Guaifenesin/ Dextromethorphan (Robitussin Dm Liquid Cup) 10 ml Q4H PRN PO COUGH; Start 07/30/18 at 15:00 Heparin Sodium (Porcine) (Heparin (1000 Units/ml)) 4,000 unit AFTER DIALYSIS CATHETER Last administered on 09/03/18at 00:52; Admin Dose 4,700 UNIT; Start 07/31/18 at 18:00 Sodium Chloride (NS) -To prime the dialy... DIRECTED FOR HD PRN IV HD; Start 07/31/18 at 18:00 Loratadine (Claritin) 10 mg DAILY PRN PO ALLERGIC REACTION Last administered on 08/07/18at 12:48; Admin Dose 10 MG; Start 08/07/18 at 12:30 Hydralazine HCl (Apresoline) 10 mg Q6H PRN PO ELEVATED BLOOD PRESSURE Last administered on 08/30/18at 02:15; Admin Dose 10 MG; Start 08/08/18 at 04:30 Hydralazine HCl (Apresoline) 25 mg TID PO Last administered on 09/10/18 08:06; Admin Dose 25 MG; Start 08/08/18 at 13:00 Eye Lubricant (Artificial Tears Oph) 2 drop QID BOTH EYES Last administered on 09/07/18 09:43; Admin Dose 2 DROP; Start 08/09/18 at 11:00 Calcium Carbonate (Tums) 500 mg PRN PRN PO HEARTBURN Last administered on 09/04/18 04:18; Admin Dose 500 MG; Start 08/09/18 at 14:30 Bisacodyl (Dulcolax Supp) 10 mg DAILY PRN [place] CONSTIPATION; Start 08/13/18 at 15:00 Furosemide (Lasix) 40 mg DAILY PO Last administered on 09/10/18 08:06; Admin Dose 40 MG; Start 08/17/18 at 15:00 Famotidine (Pepcid) 20 mg DAILY PO Last administered on 09/10/18 08:05; Admin Dose 20 MG; Start 08/22/18 at 09:00 Loperamide HCl (Imodium Cap) 2 mg QID PRN PO DIARRHEA; Start 08/21/18 at 16:00 Lactobacillus Acidophilus/ Rhamnosus (Culturelle) 1 cap BID PO Last administered on 09/06/18 21:04; Admin Dose 1 CAP; Start 08/21/18 at 21:00 Nystatin (Nystatin Powder) 1 applic BID TOP Last administered on 09/10/18at 08:11; Admin Dose 1 APPLIC; Start 08/28/18 at 21:00 Tramadol HCl (Ultram) 100 mg Q6H PRN PO PAIN LEVEL 6-10 Last administered on 09/10/18at 10:02; Admin Dose 100 MG; Start 09/01/18 at 02:00 Ondansetron HCl (Zofran Tab) 4 mg Q6H PRN PO NAUSEA AND/OR VOMITING Last administered on 09/10/18 07:58; Admin Dose 4 MG; Start 09/03/18 at 16:00 Vancomycin HCl (Vanco Iv Per Pharmacy) VANCOMYCIN PER PHARMACY PER PROTOCOL XX ; Start 09/09/18 at 16:30 Results Result Diagram: 09/10/18 1029 09/10/18 1029 Results 24 hrs Laboratory Tests Test 09/09/18 12:08 09/09/18 17:05 09/09/18 20:45 09/10/18 08:25 Bedside Glucose 107 146 131 103 Test 09/10/18 10:29 White Blood Count 12.4 H Red Blood Count 4.62 Hemoglobin 11.8 L Hematocrit 39.2 Mean Corpuscular 84.8 Volume Mean Corpuscular 25.5 L Hemoglobin Mean Corpuscular 30.1 L Hemoglobin Concent Red Cell 17.2 H Distribution Width Platelet Count 280 Mean Platelet Volume 9.8 Immature 0.600 H Granulocytes % Neutrophils % 68.0 Lymphocytes % 21.2 Monocytes % 6.4 Eosinophils % 3.1 Basophils % 0.7 Nucleated Red Blood 0.0 Cells % Immature 0.070 H Granulocytes # Neutrophils # 8.5 H Lymphocytes # 2.6 Monocytes # 0.8 Eosinophils # 0.4 Basophils # 0.1 Nucleated Red Blood 0.0 Cells # Sodium Level 137 Potassium Level 5.3 H Chloride Level 99 Carbon Dioxide Level 29 Anion Gap 9 Blood Urea Nitrogen 54 H Creatinine 3.89 H Est Glomerular 12 L Filtrat Rate mL/min Glucose Level 154 Calcium Level 9.0 Phosphorus Level 4.8 Magnesium Level 1.8 PHONG ZHOU NP Sep 10, 2018 11:58
[2018-09-10 14:03] VITALS: BP 151/60; PULSE 83; RESP 18
[2018-09-10] MEDS ORDERED: ZYVOX 600 MG TAB PO ONE (15:00)
[2018-09-10] MEDS: MUPIROCIN 2% 22 GM OINT TOP SCH ×2 (16:46→21:39)
--- NOTE | 2018-09-10 17:52 | PN ---
Date/Time of Note Date/Time of Note DATE: 09/10/18 TIME: 17:51 Assessment/Plan VTE Prophylaxis Risk score (from Nsg)>0 risk: 3 SCD applied (from Nsg): Yes Pharmacological prophylaxis: heparin Lines/Catheters IV Catheter Type (from Nrsg): Permacath Urinary Cath still in place: No Assessment/Plan Hospital Course 58 y/o with 1. . ckd iii-iv now with the complications of hyperkalemia, patient has been refusing Kayexalate Veltassmyla has also been refusing dialysis, patient was explained the risks and consequences and patient completely understands the risks and consequences, now agreed, on and off Hd once a week 2. c diff hx 3. Chronic kidney disease, 4. Morbid obesity. 5. Diabetes. 6. Hypertension, 7. Gout.hx 8. Neuropathy. 9. History of congestive heart failure. 10 weakness 11 deconditioning 13 Left shoulde pain, TTP ? Frozen shoulder , shoulder impingement 14 s/p Fall ? AMS confusion likley due to UTI 15 uti klebsiella and enterococcus 16 diarrhea 15 vomtiing/? contipation> refuse labs again Plan - HD Once a week, -stool softners - Lactobacillus - cw with PT -- pt refused cortisone injecion per ortho - Wound care - US with thrombosed graft - Ortho consult however patient refused a cortisone shot - avoid narcotics as it would limit her ability to walk for PT as it happened last admission since pts goal is Physical therapy - low k diet, cw lasix - ABX PER ID - hd tmw -tyenolol on as needed headache -dc veltassa as pt has been refusing it - warm compresses to shoulder SNIF with HD Subjective 24 Hr Interval Summary Free Text/Dictation SLIGHT NAUSEA gi UPSET Exam/Review of Systems Vital Signs Vitals Vital Signs Date Temp Pulse Resp B/P (MAP) Pulse Ox O2 O2 Flow FiO2 Time Delivery Rate 09/10/18 98.0 83 18 151/60 95 Room Air 14:03 (90) 09/06/18 2.0 20:00 Intake and Output 09/09/18 09/09/18 09/10/18 1414:59 22:59 06:59 IntakeIntake Total 240 ml BalanceBalance 240 ml Exam right chest permcath Constitutional: alert, oriented, morbidly obese, lying on rt side Respiratory: clear to auscultation Cardiovascular: regular rate and rhythm Gastrointestinal: soft Medications Medications Current Medications Acetaminophen (Tylenol Tab) 325 mg Q4H PRN PO MILD PAIN(1-3)OR ELEVATED TEMP Last administered on 08/14/18at 17:29; Admin Dose 325 MG; Start 07/20/18 at 23:00 Allopurinol (Zyloprim) 100 mg DAILY PO Last administered on 09/10/18 08:05; Admin Dose 100 MG; Start 07/21/18 at 09:00 IV Flush (NS 3 ml) 3 ml PER PROTOCOL IV ; Start 07/20/18 at 23:00 Acetaminophen (Tylenol Tab) 650 mg Q6H PRN PO PAIN LEVEL 1-3 OR FEVER Last administered on 08/21/18 01:16; Admin Dose 650 MG; Start 07/20/18 at 23:00 Acetaminophen (Tylenol Supp) 650 mg Q6H PRN [place] PAIN LEVEL 1-3 OR FEVER; Start 07/20/18 at 23:00 Docusate Sodium (Colace) 100 mg Q12H PRN PO CONSTIPATION Last administered on 09/04/18 22:21; Admin Dose 100 MG; Start 07/20/18 at 23:00 Bisacodyl (Dulcolax) 5 mg DAILY PRN PO CONSTIPATION Last administered on 09/06/18 04:59; Admin Dose 5 MG; Start 07/20/18 at 23:00 Diagnostic Test (Pha) (Accu-Chek) 1 ea 02 XX Last administered on 09/02/18 02:04; Admin Dose 1 EA; Start 07/21/18 at 02:00 Insulin Aspart (Novolog Insulin Pen) NOVOLOG *MILD* ALGORITHM WITH MEALS BEDTIME SC Last administered on 09/07/18 17:42; Admin Dose 2 UNIT; Start 07/21/18 at 07:50 Ergocalciferol (Drisdol) 50,000 unit Lacy@0900 PO Last administered on 09/04/18 11:48; Admin Dose 50,000 UNIT; Start 07/24/18 at 09:00 Miscellaneous Information 1 ea NOTE XX ; Start 07/20/18 at 23:00 Glucose (Glutose) 15 gm Q15M PRN PO DECREASED GLUCOSE; Start 07/20/18 at 23:00 Glucose (Glutose) 22.5 gm Q15M PRN PO DECREASED GLUCOSE; Start 07/20/18 at 23:00 Dextrose (D50w Syringe) 25 ml Q15M PRN IV DECREASED GLUCOSE; Start 07/20/18 at 23:00 Dextrose (D50w Syringe) 50 ml Q15M PRN IV DECREASED GLUCOSE; Start 07/20/18 at 23:00 Glucagon (Glucagen) 1 mg Q15M PRN IM DECREASED GLUCOSE; Start 07/20/18 at 23:00 Glucose (Glutose) 15 gm Q15M PRN BUCCAL DECREASED GLUCOSE; Start 07/20/18 at 23:00 Melatonin (Melatonin) 3 mg HS PRN PO INSOMNIA Last administered on 09/09/18at 20:38; Admin Dose 3 MG; Start 07/20/18 at 23:00 Heparin Sodium (Porcine) 5,000 unit Q12 SC Last administered on 09/10/18 08:19; Admin Dose 5,000 UNIT; Start 07/21/18 at 21:00 Diclofenac Sodium (Voltaren 1% Gel) 2 gm QID TP Last administered on 09/10/18 14:02; Admin Dose 2 GM; Start 07/22/18 at 13:00 Guaifenesin/ Dextromethorphan (Robitussin Dm Liquid Cup) 10 ml Q4H PRN PO COUGH; Start 07/30/18 at 15:00 Heparin Sodium (Porcine) (Heparin (1000 Units/ml)) 4,000 unit AFTER DIALYSIS CATHETER Last administered on 09/03/18at 00:52; Admin Dose 4,700 UNIT; Start 07/31/18 at 18:00 Sodium Chloride (NS) -To prime the dialy... DIRECTED FOR HD PRN IV HD; Start 07/31/18 at 18:00 Loratadine (Claritin) 10 mg DAILY PRN PO ALLERGIC REACTION Last administered on 08/07/18at 12:48; Admin Dose 10 MG; Start 08/07/18 at 12:30 Hydralazine HCl (Apresoline) 10 mg Q6H PRN PO ELEVATED BLOOD PRESSURE Last administered on 08/30/18 02:15; Admin Dose 10 MG; Start 08/08/18 at 04:30 Hydralazine HCl (Apresoline) 25 mg TID PO Last administered on 09/10/18 14:01; Admin Dose 25 MG; Start 08/08/18 at 13:00 Eye Lubricant (Artificial Tears Oph) 2 drop QID BOTH EYES Last administered on 09/07/18at 09:43; Admin Dose 2 DROP; Start 08/09/18 at 11:00 Calcium Carbonate (Tums) 500 mg PRN PRN PO HEARTBURN Last administered on 09/04/18at 04:18; Admin Dose 500 MG; Start 08/09/18 at 14:30 Bisacodyl (Dulcolax Supp) 10 mg DAILY PRN [place] CONSTIPATION; Start 08/13/18 at 15:00 Furosemide (Lasix) 40 mg DAILY PO Last administered on 09/10/18at 08:06; Admin Dose 40 MG; Start 08/17/18 at 15:00 Famotidine (Pepcid) 20 mg DAILY PO Last administered on 09/10/18at 08:05; Admin Dose 20 MG; Start 08/22/18 at 09:00 Loperamide HCl (Imodium Cap) 2 mg QID PRN PO DIARRHEA; Start 08/21/18 at 16:00 Lactobacillus Acidophilus/ Rhamnosus (Culturelle) 1 cap BID PO Last administered on 09/06/18at 21:04; Admin Dose 1 CAP; Start 08/21/18 at 21:00 Nystatin (Nystatin Powder) 1 applic BID TOP Last administered on 09/10/18at 08:11; Admin Dose 1 APPLIC; Start 08/28/18 at 21:00 Tramadol HCl (Ultram) 100 mg Q6H PRN PO PAIN LEVEL 6-10 Last administered on 09/10/18at 16:45; Admin Dose 100 MG; Start 09/01/18 at 02:00 Ondansetron HCl (Zofran Tab) 4 mg Q6H PRN PO NAUSEA AND/OR VOMITING Last administered on 09/10/18at 07:58; Admin Dose 4 MG; Start 09/03/18 at 16:00 Linezolid (Zyvox) 600 mg BID PO ; Start 09/11/18 at 09:00 Mupirocin (Bactroban) 1 applic BID TOP Last administered on 09/10/18at 16:46; Admin Dose 1 APPLIC; Start 09/10/18 at 14:00 Results Result Diagram: 09/10/18 1029 09/10/18 1029 Results 24 hrs Laboratory Tests Test 09/09/18 20:45 09/10/18 08:25 09/10/18 10:29 09/10/18 12:35 Bedside Glucose 131 103 139 White Blood Count 12.4 H Red Blood Count 4.62 Hemoglobin 11.8 L Hematocrit 39.2 Mean Corpuscular 84.8 Volume Mean Corpuscular 25.5 L Hemoglobin Mean Corpuscular 30.1 L Hemoglobin Concent Red Cell 17.2 H Distribution Width Platelet Count 280 Mean Platelet Volume 9.8 Immature 0.600 H Granulocytes % Neutrophils % 68.0 Lymphocytes % 21.2 Monocytes % 6.4 Eosinophils % 3.1 Basophils % 0.7 Nucleated Red Blood 0.0 Cells % Immature 0.070 H Granulocytes # Neutrophils # 8.5 H Lymphocytes # 2.6 Monocytes # 0.8 Eosinophils # 0.4 Basophils # 0.1 Nucleated Red Blood 0.0 Cells # Sodium Level 137 Potassium Level 5.3 H Chloride Level 99 Carbon Dioxide Level 29 Anion Gap 9 Blood Urea Nitrogen 54 H Creatinine 3.89 H Est Glomerular 12 L Filtrat Rate mL/min Glucose Level 154 Calcium Level 9.0 Phosphorus Level 4.8 Magnesium Level 1.8 KOFI SWANN MD Sep 10, 2018 17:52
[2018-09-10] MEDS ORDERED: AL HYDROX/MG HYDROX/SIMETH 30 ML CUP PO PRN (18:00)
[2018-09-10 19:30] VITALS: BP 123/93; PULSE 80; RESP 20
[2018-09-10] MEDS: MELATONIN 3 MG TABLET PO PRN (23:16)
[2018-09-11] VITALS (18 sets, daily range): BP systolic 102–148; BP diastolic 55–91; PULSE 71–116; RESP 17–20
[2018-09-11] MEDS: ACCU-CHEK XX SCH (02:00)
[2018-09-11] MEDS: traMADol 50 MG TAB PO PRN ×4 (05:33→23:28)
[2018-09-11] MEDS ORDERED: HEPARIN 5,000 UNIT/0.5 ML VIAL ONE ×2 (08:13→21:44)
[2018-09-11] MEDS: INSULIN ASPART [NOVOLOG] 3 ML PEN SC SCH ×4 (08:36→21:00)
[2018-09-11] MEDS: HEPARIN 5,000 UNIT/1 ML VIAL SC SCH ×2 (08:37→23:56)
[2018-09-11] MEDS: FUROSEMIDE 40 MG TAB PO SCH (08:39)
[2018-09-11] MEDS: FAMOTIDINE 20 MG TAB PO SCH (08:40)
[2018-09-11] MEDS: ZYVOX 600 MG TAB PO SCH ×2 (08:41→23:31)
[2018-09-11] MEDS: ALLOPURINOL 100 MG TAB PO SCH (08:41)
[2018-09-11] MEDS: NYSTATIN 30 GM POWDER BTL TOP SCH (08:42)
[2018-09-11] MEDS: BALSAM PERU/CASTOR OIL 60 GM TUBE TOP SCH ×2 (08:42→21:00)
[2018-09-11] MEDS: DICLOFENAC SODIUM 1% GEL 100 GM TUBE TP SCH ×3 (08:42→17:26)
[2018-09-11] MEDS: MUPIROCIN 2% 22 GM OINT TOP SCH ×2 (08:42→23:57)
[2018-09-11] MEDS: LACTOBACILLUS RHAMNOSUS CAP PO SCH ×2 (08:42→21:00)
[2018-09-11] MEDS: ARTIFICIAL TEARS 15 ML OPH BOTH EYES SCH ×4 (08:43→23:31)
[2018-09-11] MEDS: ERGOCALCIFEROL 50,000 UNIT CAP PO SCH (11:31)
--- NOTE | 2018-09-11 13:18 | CONS ---
Date/Time of Note Date/Time of Note DATE: 09/11/18 TIME: 13:13 Assessment/Plan Assessment/Plan Chief Complaint/Hosp Course ID PROGRESS NOTE CURRENT ABX: DAY # 1 Zyvox PO started yesterday 09/10 afternoon NO Vanco IV given == no IV access 09/10/18 1029 09/10/18 1029 24H INTERVAL SUMMARY * Awake, stable, watching TV, tells me she doesn't remember if she took her ABX in the morning, denies N/V due to ABX * There are no fevers, chills, she has h/o of nausea -- suspect DM autonomic dysreflexia w/gastroparesis * ABD umbilical drainage is malodorous -- started on Zyvox as she had no IV access and has put off HD sessions towards goal of facilitating her participation in PTx -- HD makes her too fatigued to participate. She is also holding Opioids towards the goal of increased mobility. * Patient is more cooperative and appears to be in a better mood today -- * Yesterday patient was irritable and argumentative -- she appears to have a "literal information focus" and has difficulty with semantics and gets hung up on words and instructions given to her -- She appears to be chronically angry, morose, and has poor coping ability. * MICRO * 09/01/18 BODY FLUID CULTURE Final Organism 1 CORYNEBACTER VIKASHIUM (GRP JK) QUANTITY 3+ Organism 2 COAGULASE NEGATIVE STAPH QUANTITY SCANT GROWTH Organism 3 ENTEROCOCCUS SPECIES QUANTITY ISOLATED FROM BROTH ONLY COAG NEG ENT SPS M.I.C. RX M.I.C. RX --------- --- --------- --- AMPICILLIN <=2 S CEFAZOLIN R CIPROFLOXACIN 4 R CLINDAMYCIN >=8 R DOXYCYCLINE S ERYTHROMYCIN >=8 R LEVOFLOXACIN 4 R OXACILLIN >=4 R PENICILLIN-G >=0.5 R 2 S RIFAMPIN <=0.5 S VANCOMYCIN 1 S 1 S COAG NEG ENT SPS M.I.C. RX M.I.C. RX --------- --- --------- --- TRIMETHOPRIM/SULFAMETHOXAZOLE 80 R C VIKASHIUM Zone Size RX --------- --- * AMPICILLIN R * CEFAZOLIN R * CEFOTAXIME R * CEFUROXIME R * CIPROFLOXACIN R * CLINDAMYCIN R * ERYTHROMYCIN R * PENICILLIN R * VANCOMYCIN S PHYSICAL EXAMINATION: GENERAL: Afebrile, VSS, super morbid obese HEENT: AT, NC, anicteric NECK: Supple, CHEST: Equal chest rise bilaterally, without dyspnea on observation HEART: Pulse RRR ABDOMEN: Super large pendulous pannus -- umbilical erythema w/degroot/brown colored clear drainage, malodorous EXTREMITIES: Warm, dry = Thrombosed left AV graft. 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 SIRS w/leukocytosis == local umbilical cellulitis w/malodorous drainage. * 09/01/18 BODY FLUID CULTURE Final Organism 1 CORYNEBACTER JEIKEIUM (GRP JK) QUANTITY 3+ Organism 2 COAGULASE NEGATIVE STAPH QUANTITY SCANT GROWTH Organism 3 ENTEROCOCCUS SPECIES QUANTITY ISOLATED FROM BROTH ONLY 2. End-stage renal disease, hemodialysis dependent * Thrombosed left AV graft. 3. Diabetes w/polyneuropathies 4. Nausea/emesis == suspect DM autonomic dysreflexia w/gastroparesis 5. H/O C dif 6. Hypertension, 7. Gout.hx 8. Neuropathy. 9. History of congestive heart failure. 10 Weakness & deconditioning 11 Left shoulde pain, TTP ? Frozen shoulder , shoulder impingement * Ortho consult however patient refused a cortisone shot 12 s/p Fall ? AMS confusion likley due to UTI 13. Mood disorder w/irritability and anger features (-)MRSA Nares ABX ALLERGIES: None to ABX (possible Iodine & Sulfa per listed allergy review) INVASIVES: PIV CURRENT ABX: DAY # 1.5 => Zyvox + Topical Bactroban ointment to navel cellulitis ID RECOMMENDATIONS/PLAN: 1. Started on Zyvox == short course 3-4 days + Topical Bactroban ointment to na cielo cellulitis 2. We can switch her to Vanco IV post HD next time it is planned. . Consultation Date/Type/Reason Admit Date/Time Jul 23, 2018 at 16:13 Initial Consult Date Exam/Review of Systems Vital Signs Vitals Vital Signs Date Temp Pulse Resp B/P (MAP) Pulse Ox O2 O2 Flow FiO2 Time Delivery Rate 09/11/18 97.9 116 17 148/79 94 Room Air 08:00 (102) Intake and Output 09/10/18 09/10/18 09/11/18 1414:59 22:59 06:59 IntakeIntake Total 750 ml 400 ml BalanceBalance 750 ml 400 ml Medications Medications Current Medications Acetaminophen (Tylenol Tab) 325 mg Q4H PRN PO MILD PAIN(1-3)OR ELEVATED TEMP Last administered on 08/14/18 17:29; Admin Dose 325 MG; Start 07/20/18 at 23: 00 Allopurinol (Zyloprim) 100 mg DAILY PO Last administered on 09/11/18 08:41; Admin Dose 100 MG; Start 07/21/18 at 09:00 IV Flush (NS 3 ml) 3 ml PER PROTOCOL IV ; Start 07/20/18 at 23:00 Acetaminophen (Tylenol Tab) 650 mg Q6H PRN PO PAIN LEVEL 1-3 OR FEVER Last administered on 08/21/18at 01:16; Admin Dose 650 MG; Start 07/20/18 at 23:00 Acetaminophen (Tylenol Supp) 650 mg Q6H PRN [place] PAIN LEVEL 1-3 OR FEVER; Start 07/20/18 at 23:00 Docusate Sodium (Colace) 100 mg Q12H PRN PO CONSTIPATION Last administered on 09/04/18 22:21; Admin Dose 100 MG; Start 07/20/18 at 23:00 Bisacodyl (Dulcolax) 5 mg DAILY PRN PO CONSTIPATION Last administered on 09/06/18 04:59; Admin Dose 5 MG; Start 07/20/18 at 23:00 Diagnostic Test (Pha) (Accu-Chek) 1 ea 02 XX Last administered on 09/02/18 02:04; Admin Dose 1 EA; Start 07/21/18 at 02:00 Insulin Aspart (Novolog Insulin Pen) NOVOLOG *MILD* ALGORITHM WITH MEALS BEDTIME SC Last administered on 09/11/18at 08:36; Admin Dose 1 UNIT; Start 07/21/18 at 07:50 Ergocalciferol (Drisdol) 50,000 unit Lacy@0900 PO Last administered on 09/11/18at 11:31; Admin Dose 50,000 UNIT; Start 07/24/18 at 09:00 Miscellaneous Information 1 ea NOTE XX ; Start 07/20/18 at 23:00 Glucose (Glutose) 15 gm Q15M PRN PO DECREASED GLUCOSE; Start 07/20/18 at 23:00 Glucose (Glutose) 22.5 gm Q15M PRN PO DECREASED GLUCOSE; Start 07/20/18 at 23:00 Dextrose (D50w Syringe) 25 ml Q15M PRN IV DECREASED GLUCOSE; Start 07/20/18 at 23:00 Dextrose (D50w Syringe) 50 ml Q15M PRN IV DECREASED GLUCOSE; Start 07/20/18 at 23:00 Glucagon (Glucagen) 1 mg Q15M PRN IM DECREASED GLUCOSE; Start 07/20/18 at 23:00 Glucose (Glutose) 15 gm Q15M PRN BUCCAL DECREASED GLUCOSE; Start 07/20/18 at 23:00 Melatonin (Melatonin) 3 mg HS PRN PO INSOMNIA Last administered on 09/10/18at 23:16; Admin Dose 3 MG; Start 07/20/18 at 23:00 Heparin Sodium (Porcine) 5,000 unit Q12 SC Last administered on 09/11/18at 08:37; Admin Dose 5,000 UNIT; Start 07/21/18 at 21:00 Diclofenac Sodium (Voltaren 1% Gel) 2 gm QID TP Last administered on 09/11/18at 08:42; Admin Dose 2 GM; Start 07/22/18 at 13:00 Guaifenesin/ Dextromethorphan (Robitussin Dm Liquid Cup) 10 ml Q4H PRN PO COUGH; Start 07/30/18 at 15:00 Heparin Sodium (Porcine) (Heparin (1000 Units/ml)) 4,000 unit AFTER DIALYSIS CATHETER Last administered on 09/03/18at 00:52; Admin Dose 4,700 UNIT; Start 07/31/18 at 18:00 Sodium Chloride (NS) -To prime the dialy... DIRECTED FOR HD PRN IV HD; Start 07/31/18 at 18:00 Loratadine (Claritin) 10 mg DAILY PRN PO ALLERGIC REACTION Last administered on 08/07/18at 12:48; Admin Dose 10 MG; Start 08/07/18 at 12:30 Hydralazine HCl (Apresoline) 10 mg Q6H PRN PO ELEVATED BLOOD PRESSURE Last administered on 08/30/18 02:15; Admin Dose 10 MG; Start 08/08/18 at 04:30 Hydralazine HCl (Apresoline) 25 mg TID PO Last administered on 09/10/18 21:38; Admin Dose 25 MG; Start 08/08/18 at 13:00 Eye Lubricant (Artificial Tears Oph) 2 drop QID BOTH EYES Last administered on 09/11/18 08:43; Admin Dose 2 DROP; Start 08/09/18 at 11:00 Calcium Carbonate (Tums) 500 mg PRN PRN PO HEARTBURN Last administered on 09/04/18 04:18; Admin Dose 500 MG; Start 08/09/18 at 14:30 Bisacodyl (Dulcolax Supp) 10 mg DAILY PRN [place] CONSTIPATION; Start 08/13/18 at 15:00 Furosemide (Lasix) 40 mg DAILY PO Last administered on 09/10/18 08:06; Admin Dose 40 MG; Start 08/17/18 at 15:00 Famotidine (Pepcid) 20 mg DAILY PO Last administered on 09/11/18 08:40; Admin Dose 20 MG; Start 08/22/18 at 09:00 Loperamide HCl (Imodium Cap) 2 mg QID PRN PO DIARRHEA; Start 08/21/18 at 16:00 Lactobacillus Acidophilus/ Rhamnosus (Culturelle) 1 cap BID PO Last administered on 09/06/18 21:04; Admin Dose 1 CAP; Start 08/21/18 at 21:00 Nystatin (Nystatin Powder) 1 applic BID TOP Last administered on 09/11/18 08:42; Admin Dose 1 APPLIC; Start 08/28/18 at 21:00 Tramadol HCl (Ultram) 100 mg Q6H PRN PO PAIN LEVEL 6-10 Last administered on 09/11/18 11:31; Admin Dose 100 MG; Start 09/01/18 at 02:00 Ondansetron HCl (Zofran Tab) 4 mg Q6H PRN PO NAUSEA AND/OR VOMITING Last administered on 09/10/18 07:58; Admin Dose 4 MG; Start 09/03/18 at 16:00 Linezolid (Zyvox) 600 mg BID PO Last administered on 09/11/18at 08:41; Admin Dose 600 MG; Start 09/11/18 at 09:00 Mupirocin (Bactroban) 1 applic BID TOP Last administered on 09/11/18at 08:42; Admin Dose 1 APPLIC; Start 09/10/18 at 14:00 Al Hydrox/Mg Hydrox/Simethicone (Mag-Al Plus) 30 ml Q4H PRN PO GASTROINTESTINAL UPSET; Start 09/10/18 at 18:00 Results Result Diagram: 09/10/18 1029 09/10/18 1029 Results 24 hrs Laboratory Tests Test 09/10/18 17:56 09/10/18 21:34 09/11/18 02:13 09/11/18 08:32 Bedside Glucose 165 192 118 147 Test 09/11/18 12:58 Bedside Glucose 101 PHONG ZHOU NP Sep 11, 2018 13:18
--- NOTE | 2018-09-11 16:15 | PN ---
Date/Time of Note Date/Time of Note DATE: 09/11/18 TIME: 16:14 Assessment/Plan VTE Prophylaxis Risk score (from Nsg)>0 risk: 3 SCD applied (from Nsg): Yes Pharmacological prophylaxis: heparin Lines/Catheters IV Catheter Type (from Nrsg): permacath Urinary Cath still in place: No Assessment/Plan Hospital Course 58 y/o with 1. . ckd iii-iv now with the complications of hyperkalemia, patient has been refusing Kayexalate Veltabela has also been refusing dialysis, patient was explained the risks and consequences and patient completely understands the risks and consequences, now agreed, on and off Hd once a week 2. c diff hx 3. Chronic kidney disease, 4. Morbid obesity. 5. Diabetes. 6. Hypertension, 7. Gout.hx 8. Neuropathy. 9. History of congestive heart failure. 10 weakness 11 deconditioning 13 Left shoulde pain, TTP ? Frozen shoulder , shoulder impingement 14 s/p Fall ? AMS confusion likley due to UTI 15 uti klebsiella and enterococcus 16 diarrhea 15 vomtiing/? contipation> refuse labs again Plan - HD Once a week, Hd todayu -stool softners - Lactobacillus - cw with PT -- pt refused cortisone injecion per ortho - Wound care - US with thrombosed graft - Ortho consult however patient refused a cortisone shot - avoid narcotics as it would limit her ability to walk for PT as it happened last admission since pts goal is Physical therapy - low k diet, cw lasix - ABX PER ID> on zyvox -tyenolol on as needed headache -dc veltassa as pt has been refusing it - warm compresses to shoulder SNIF with HD -spoke to Her about GI evaluation for the persistent nausea however patient refused Subjective 24 Hr Interval Summary Free Text/Dictation Still complained of nausea spoke to the patient that we will call GI for further evaluation however patient refused Exam/Review of Systems Vital Signs Vitals Vital Signs Date Temp Pulse Resp B/P (MAP) Pulse Ox O2 O2 Flow FiO2 Time Delivery Rate 09/11/18 97.9 85 18 123/57 92 14:33 (79) 09/11/18 Room Air 08:00 Intake and Output 09/10/18 09/10/18 09/11/18 1515:00 23:00 07:00 IntakeIntake Total 750 ml 400 ml BalanceBalance 750 ml 400 ml Exam right chest permcath Constitutional: alert, oriented, morbidly obese, lying on rt side Respiratory: clear to auscultation Cardiovascular: regular rate and rhythm Gastrointestinal: soft Medications Medications Current Medications Acetaminophen (Tylenol Tab) 325 mg Q4H PRN PO MILD PAIN(1-3)OR ELEVATED TEMP Last administered on 08/14/18 17:29; Admin Dose 325 MG; Start 07/20/18 at 23:00 Allopurinol (Zyloprim) 100 mg DAILY PO Last administered on 09/11/18 08:41; Admin Dose 100 MG; Start 07/21/18 at 09:00 IV Flush (NS 3 ml) 3 ml PER PROTOCOL IV ; Start 07/20/18 at 23:00 Acetaminophen (Tylenol Tab) 650 mg Q6H PRN PO PAIN LEVEL 1-3 OR FEVER Last administered on 08/21/18at 01:16; Admin Dose 650 MG; Start 07/20/18 at 23:00 Acetaminophen (Tylenol Supp) 650 mg Q6H PRN [place] PAIN LEVEL 1-3 OR FEVER; Start 07/20/18 at 23:00 Docusate Sodium (Colace) 100 mg Q12H PRN PO CONSTIPATION Last administered on 09/04/18 22:21; Admin Dose 100 MG; Start 07/20/18 at 23:00 Bisacodyl (Dulcolax) 5 mg DAILY PRN PO CONSTIPATION Last administered on 09/06/18 04:59; Admin Dose 5 MG; Start 07/20/18 at 23:00 Diagnostic Test (Pha) (Accu-Chek) 1 ea 02 XX Last administered on 09/02/18at 02:04; Admin Dose 1 EA; Start 07/21/18 at 02:00 Insulin Aspart (Novolog Insulin Pen) NOVOLOG *MILD* ALGORITHM WITH MEALS BEDTIME SC Last administered on 09/11/18 08:36; Admin Dose 1 UNIT; Start 07/21/18 at 07:50 Ergocalciferol (Drisdol) 50,000 unit Lacy@0900 PO Last administered on 09/11/18at 11:31; Admin Dose 50,000 UNIT; Start 07/24/18 at 09:00 Miscellaneous Information 1 ea NOTE XX ; Start 07/20/18 at 23:00 Glucose (Glutose) 15 gm Q15M PRN PO DECREASED GLUCOSE; Start 07/20/18 at 23:00 Glucose (Glutose) 22.5 gm Q15M PRN PO DECREASED GLUCOSE; Start 07/20/18 at 23:00 Dextrose (D50w Syringe) 25 ml Q15M PRN IV DECREASED GLUCOSE; Start 07/20/18 at 23:00 Dextrose (D50w Syringe) 50 ml Q15M PRN IV DECREASED GLUCOSE; Start 07/20/18 at 23:00 Glucagon (Glucagen) 1 mg Q15M PRN IM DECREASED GLUCOSE; Start 07/20/18 at 23:00 Glucose (Glutose) 15 gm Q15M PRN BUCCAL DECREASED GLUCOSE; Start 07/20/18 at 23:00 Melatonin (Melatonin) 3 mg HS PRN PO INSOMNIA Last administered on 09/10/18at 23:16; Admin Dose 3 MG; Start 07/20/18 at 23:00 Heparin Sodium (Porcine) 5,000 unit Q12 SC Last administered on 09/11/18at 08:37; Admin Dose 5,000 UNIT; Start 07/21/18 at 21:00 Diclofenac Sodium (Voltaren 1% Gel) 2 gm QID TP Last administered on 09/11/18at 08:42; Admin Dose 2 GM; Start 07/22/18 at 13:00 Guaifenesin/ Dextromethorphan (Robitussin Dm Liquid Cup) 10 ml Q4H PRN PO COUGH; Start 07/30/18 at 15:00 Heparin Sodium (Porcine) (Heparin (1000 Units/ml)) 4,000 unit AFTER DIALYSIS CATHETER Last administered on 09/03/18at 00:52; Admin Dose 4,700 UNIT; Start 07/31/18 at 18:00 Sodium Chloride (NS) -To prime the dialy... DIRECTED FOR HD PRN IV HD; Start 07/31/18 at 18:00 Loratadine (Claritin) 10 mg DAILY PRN PO ALLERGIC REACTION Last administered on 08/07/18at 12:48; Admin Dose 10 MG; Start 08/07/18 at 12:30 Hydralazine HCl (Apresoline) 10 mg Q6H PRN PO ELEVATED BLOOD PRESSURE Last administered on 08/30/18at 02:15; Admin Dose 10 MG; Start 08/08/18 at 04:30 Hydralazine HCl (Apresoline) 25 mg TID PO Last administered on 09/10/18 21:38; Admin Dose 25 MG; Start 08/08/18 at 13:00 Eye Lubricant (Artificial Tears Oph) 2 drop QID BOTH EYES Last administered on 09/11/18 08:43; Admin Dose 2 DROP; Start 08/09/18 at 11:00 Calcium Carbonate (Tums) 500 mg PRN PRN PO HEARTBURN Last administered on 09/04/18 04:18; Admin Dose 500 MG; Start 08/09/18 at 14:30 Bisacodyl (Dulcolax Supp) 10 mg DAILY PRN [place] CONSTIPATION; Start 08/13/18 at 15:00 Furosemide (Lasix) 40 mg DAILY PO Last administered on 09/10/18 08:06; Admin Dose 40 MG; Start 08/17/18 at 15:00 Famotidine (Pepcid) 20 mg DAILY PO Last administered on 09/11/18 08:40; Admin Dose 20 MG; Start 08/22/18 at 09:00 Loperamide HCl (Imodium Cap) 2 mg QID PRN PO DIARRHEA; Start 08/21/18 at 16:00 Lactobacillus Acidophilus/ Rhamnosus (Culturelle) 1 cap BID PO Last administered on 09/06/18 21:04; Admin Dose 1 CAP; Start 08/21/18 at 21:00 Nystatin (Nystatin Powder) 1 applic BID TOP Last administered on 09/11/18 08:42; Admin Dose 1 APPLIC; Start 08/28/18 at 21:00 Tramadol HCl (Ultram) 100 mg Q6H PRN PO PAIN LEVEL 6-10 Last administered on 09/11/18 11:31; Admin Dose 100 MG; Start 09/01/18 at 02:00 Ondansetron HCl (Zofran Tab) 4 mg Q6H PRN PO NAUSEA AND/OR VOMITING Last administered on 09/10/18 07:58; Admin Dose 4 MG; Start 09/03/18 at 16:00 Linezolid (Zyvox) 600 mg BID PO Last administered on 09/11/18 08:41; Admin Dose 600 MG; Start 09/11/18 at 09:00 Mupirocin (Bactroban) 1 applic BID TOP Last administered on 09/11/18at 08:42; Admin Dose 1 APPLIC; Start 09/10/18 at 14:00 Al Hydrox/Mg Hydrox/Simethicone (Mag-Al Plus) 30 ml Q4H PRN PO GASTROINTESTINAL UPSET; Start 09/10/18 at 18:00 Results Result Diagram: 09/10/18 1029 09/10/18 1029 Results 24 hrs Laboratory Tests Test 09/10/18 17:56 09/10/18 21:34 09/11/18 02:13 09/11/18 08:32 Bedside Glucose 165 192 118 147 Test 09/11/18 12:58 Bedside Glucose 101 KOFI SWANN MD Sep 11, 2018 16:15
[2018-09-11] MEDS: HEPARIN 1000 UNITS/ML 10 ML INJ CATHETER SCH (23:51)
[2018-09-12] MEDS: DICLOFENAC SODIUM 1% GEL 100 GM TUBE TP SCH ×5 (00:01→23:30)
[2018-09-12] MEDS: NYSTATIN 30 GM POWDER BTL TOP SCH ×3 (00:01→23:29)
[2018-09-12] MEDS: ACCU-CHEK XX SCH (01:53)
[2018-09-12 02:20] VITALS: BP 109/63; PULSE 81; RESP 18
[2018-09-12] MEDS: traMADol 50 MG TAB PO PRN ×4 (05:29→23:46)
[2018-09-12] MEDS ORDERED: HEPARIN 5,000 UNIT/0.5 ML VIAL ONE ×2 (08:33→21:07)
[2018-09-12] MEDS: INSULIN ASPART [NOVOLOG] 3 ML PEN SC SCH ×4 (08:54→21:00)
[2018-09-12] MEDS: ARTIFICIAL TEARS 15 ML OPH BOTH EYES SCH ×4 (08:55→23:29)
[2018-09-12] MEDS: BALSAM PERU/CASTOR OIL 60 GM TUBE TOP SCH ×2 (08:55→23:29)
[2018-09-12] MEDS: MUPIROCIN 2% 22 GM OINT TOP SCH ×2 (08:56→23:28)
[2018-09-12] MEDS: HEPARIN 5,000 UNIT/1 ML VIAL SC SCH ×2 (08:57→23:33)
[2018-09-12] MEDS: ALLOPURINOL 100 MG TAB PO SCH (08:57)
[2018-09-12] MEDS: ZYVOX 600 MG TAB PO SCH ×2 (08:57→23:24)
[2018-09-12] MEDS: FAMOTIDINE 20 MG TAB PO SCH (08:59)
[2018-09-12] MEDS: FUROSEMIDE 40 MG TAB PO SCH (08:59)
[2018-09-12] MEDS: LACTOBACILLUS RHAMNOSUS CAP PO SCH ×2 (09:00→21:00)
--- NOTE | 2018-09-12 09:22 | CONS ---
DATE OF ADMISSION: 07/23/2018 DATE OF CONSULTATION: 09/09/2018 TYPE OF CONSULTATION: Infectious disease. REASON FOR CONSULTATION: Antibiotic management. HISTORY OF PRESENT ILLNESS: Rissa Torres is a 58-year-old female who presented to the emergency r [facility] after being sent in by Dr. Nuñez. She is a morbidly obese female who is unable to walk. She has chronic inability to walk since her last admission. Her problems include: 1. Chronic renal disease. 2. Morbid obesity. 3. History of C. difficile. 4. Diabetes mellitus. 5. Hypertension. 6. Gout. 7. Diabetic neuropathy. 8. Congestive heart failure. 9. Weakness 10. Deconditioning with inability to walk. 11. Hypercholesterolemia. 12. ALLERGIES TO POLYSTYRENE SULFONATE AND CODEINE. The patient is a former smoker. She has a history of diabetes in the family. On admission, her whit e count was 10.7, H and H 11.8 and 40.1, platelet count 309,000. BUN and creatinine 64/3.27. The deonna turner has been in the hospital for a prolonged period of time, since the middle of July. She is o n hemodialysis, had a PermCath placed. On 09/01/2018, she grew out corynebacterium group JK, coagula se-negative staph, and enterococcus; all of which would be sensitive to vancomycin. Chest x-ray from 08/02/2018 showed mild cardiogenic pulmonary venous hypertension, right internal central venous cath eter tip in the right atrium, mild cardiomegaly, and atherosclerotic vascular disease. She had compl ications of hyperkalemia, has been refusing dialysis, and has had multiple aches and pains. She had a UTI with klebsiella and enterococcus. She refused cortisone injections for her shoulder, which was recommended by orthopedics. ____ was discontinued because she was refusing it. The patient current ly has left shoulder pain and questionable frozen shoulder with shoulder impingement. As noted, she is refusing of the Kayexalate, which was recommended. She is having nausea, and GI might be reconsul leanne. She felt some dizziness. She did have an MRI in the past, but says she cannot have an MRI stefano use of her weight. PAST MEDICAL HISTORY: Operations as outlined. FAMILY HISTORY: Noncontributory, but positive for diabetes. SOCIAL HISTORY: She is a former smoker. MEDICATIONS: Per chart. REVIEW OF SYSTEMS: Noncontributory. PHYSICAL EXAMINATION: GENERAL: The patient is awake, responsive, in no acute distress, lying in bed. She is morbidly obes e. VITAL SIGNS: Stable. SKIN: Without generalized rash. HEENT: Within normal limits. NECK: Supple. LYMPH NODES: None palpable. CHEST: Decreased breath sounds at the bases. HEART: Without murmur or gallop. ABDOMEN: Soft, nontender, without organosplenomegaly or masses. EXTREMITIES: Without cyanosis, clubbing, or edema. RECTAL AND GENITAL: Deferred. NEUROLOGIC: No focal neurological abnormality. IMPRESSION AND PLAN: The patient has abdominal fluid cultures from the , which is positive for c orynebacterium JK, coagulase-negative staph, and enterococcus. She therefore can be on vancomycin, p harmacy to dose, although it may be that Dr. Lockhart does not want her on vancomycin because of her re nal function, which I will have to check on. I will dictate my findings to Dr. Nuñez and to Dr. Valadez in. Dictated By: GIFTY MONROE MD, JD/LAYNE Conf#: [id number] DID#: [id number]
--- NOTE | 2018-09-12 14:00 | PN ---
DATE: 09/12/2018 SUBJECTIVE: No acute events overnight per discussion with staff. The patient is alert, feels good, looks comfortable, no fevers overnight. No labs this morning. INDWELLINGS: She has a left chest Perm-A-Cath. MICROBIOLOGY: Urine culture on 08/03/2018 was positive for Klebsiella, enterococcus and Aerococcus a bdominal umbilical drainage culture grew Corynebacterium group JK enterococcus and coagulase-negative staph species. ANTIMICROBIALS: The patient is on: 1. Oral Zyvox 2. Topical Bactroban to umbilical cord area. PHYSICAL EXAMINATION: GENERAL: This is a morbidly obese, chronically ill-appearing, elderly woman who is alert, in no dist ress. HEENT: Head atraumatic, normocephalic. NECK: Supple. CHEST: Rise symmetrical. Breath sounds clear. HEART: S1, S2. ABDOMEN: Obese, bowel tones present. EXTREMITIES: Without cyanosis. ASSESSMENT: 1. Status post systemic inflammatory response syndrome. 2. Status post urinary tract infection. 3. End-stage renal disease. 4. Diabetes. 5. Hypertension. 6. History of Clostridium difficile colitis. 7. Resolving umbilical cellulitis. PLAN: The patient remains stable. Continue present care. Continue short course antibiotics. Dictated By: JEANIE CID CHAIRMAN for GIFTY MONROE MD NI/NTS Conf#: [id number] DID#: [id number] CC: BRIAN ROBLEDO MD;*EndCC*
--- NOTE | 2018-09-12 15:54 | PN ---
Date/Time of Note Date/Time of Note DATE: 09/12/18 TIME: 15:53 Assessment/Plan VTE Prophylaxis Risk score (from Nsg)>0 risk: 4 SCD applied (from Nsg): Yes Pharmacological prophylaxis: LMWH Lines/Catheters IV Catheter Type (from Nrsg): PERMACATH Urinary Cath still in place: No Assessment/Plan Hospital Course 58 y/o with 1. . ckd iii-iv now with the complications of hyperkalemia, patient has been refusing Kayexalate Veltassmyla has also been refusing dialysis, patient was explained the risks and consequences and patient completely understands the risks and consequences, now agreed, on and off Hd once a week 2. c diff hx 3. Chronic kidney disease, 4. Morbid obesity. 5. Diabetes. 6. Hypertension, 7. Gout.hx 8. Neuropathy. 9. History of congestive heart failure. 10 weakness 11 deconditioning 13 Left shoulde pain, TTP ? Frozen shoulder , shoulder impingement 14 s/p Fall ? AMS confusion likley due to UTI 15 uti klebsiella and enterococcus 16 diarrhea 15 vomtiing/? contipation> refuse labs again Plan - HD Once a week, a/p Hd yesterday -stool softners - Lactobacillus - cw with PT -- pt refused cortisone injecion per ortho - Wound care - US with thrombosed graft - Ortho consult however patient refused a cortisone shot - avoid narcotics as it would limit her ability to walk for PT as it happened last admission since pts goal is Physical therapy - low k diet, cw lasix - ABX PER ID> on zyvox -tyenolol on as needed headache -dc veltassa as pt has been refusing it - warm compresses to shoulder SNIF with HD -spoke to Her about GI evaluation for the persistent nausea however patient refused Subjective 24 Hr Interval Summary Free Text/Dictation That is post HD yesterday Exam/Review of Systems Vital Signs Vitals Vital Signs Date Temp Pulse Resp B/P (MAP) Pulse Ox O2 O2 Flow FiO2 Time Delivery Rate 09/12/18 98.4 81 18 109/63 94 02:20 (78) 09/11/18 Room Air 20:32 Intake and Output 09/11/18 09/11/18 09/12/18 1515:00 23:00 07:00 IntakeIntake Total 600 ml 400 ml OutputOutput Total 200 ml 1400 ml BalanceBalance 600 ml 200 ml -1400 ml Exam right chest permcath Constitutional: alert, oriented, morbidly obese, lying on rt side Respiratory: clear to auscultation Cardiovascular: regular rate and rhythm Gastrointestinal: soft Medications Medications Current Medications Acetaminophen (Tylenol Tab) 325 mg Q4H PRN PO MILD PAIN(1-3)OR ELEVATED TEMP Last administered on 08/14/18 17:29; Admin Dose 325 MG; Start 07/20/18 at 23:00 Allopurinol (Zyloprim) 100 mg DAILY PO Last administered on 09/12/18 08:57; Admin Dose 100 MG; Start 07/21/18 at 09:00 IV Flush (NS 3 ml) 3 ml PER PROTOCOL IV ; Start 07/20/18 at 23:00 Acetaminophen (Tylenol Tab) 650 mg Q6H PRN PO PAIN LEVEL 1-3 OR FEVER Last administered on 08/21/18 01:16; Admin Dose 650 MG; Start 07/20/18 at 23:00 Acetaminophen (Tylenol Supp) 650 mg Q6H PRN [place] PAIN LEVEL 1-3 OR FEVER; Start 07/20/18 at 23:00 Docusate Sodium (Colace) 100 mg Q12H PRN PO CONSTIPATION Last administered on 09/04/18 22:21; Admin Dose 100 MG; Start 07/20/18 at 23:00 Bisacodyl (Dulcolax) 5 mg DAILY PRN PO CONSTIPATION Last administered on 09/06/18 04:59; Admin Dose 5 MG; Start 07/20/18 at 23:00 Diagnostic Test (Pha) (Accu-Chek) 1 ea 02 XX Last administered on 09/02/18at 02:04; Admin Dose 1 EA; Start 07/21/18 at 02:00 Insulin Aspart (Novolog Insulin Pen) NOVOLOG *MILD* ALGORITHM WITH MEALS BEDTIME SC Last administered on 09/11/18 08:36; Admin Dose 1 UNIT; Start 07/21/18 at 07:50 Ergocalciferol (Drisdol) 50,000 unit Lacy@0900 PO Last administered on 09/11/18 11:31; Admin Dose 50,000 UNIT; Start 07/24/18 at 09:00 Miscellaneous Information 1 ea NOTE XX ; Start 07/20/18 at 23:00 Glucose (Glutose) 15 gm Q15M PRN PO DECREASED GLUCOSE; Start 07/20/18 at 23:00 Glucose (Glutose) 22.5 gm Q15M PRN PO DECREASED GLUCOSE; Start 07/20/18 at 23:00 Dextrose (D50w Syringe) 25 ml Q15M PRN IV DECREASED GLUCOSE; Start 07/20/18 at 23:00 Dextrose (D50w Syringe) 50 ml Q15M PRN IV DECREASED GLUCOSE; Start 07/20/18 at 23:00 Glucagon (Glucagen) 1 mg Q15M PRN IM DECREASED GLUCOSE; Start 07/20/18 at 23:00 Glucose (Glutose) 15 gm Q15M PRN BUCCAL DECREASED GLUCOSE; Start 07/20/18 at 23:00 Melatonin (Melatonin) 3 mg HS PRN PO INSOMNIA Last administered on 09/10/18at 23:16; Admin Dose 3 MG; Start 07/20/18 at 23:00 Heparin Sodium (Porcine) 5,000 unit Q12 SC Last administered on 09/12/18at 08:57; Admin Dose 5,000 UNIT; Start 07/21/18 at 21:00 Diclofenac Sodium (Voltaren 1% Gel) 2 gm QID TP Last administered on 09/12/18at 13:54; Admin Dose 2 GM; Start 07/22/18 at 13:00 Guaifenesin/ Dextromethorphan (Robitussin Dm Liquid Cup) 10 ml Q4H PRN PO COUGH; Start 07/30/18 at 15:00 Heparin Sodium (Porcine) (Heparin (1000 Units/ml)) 4,000 unit AFTER DIALYSIS CATHETER Last administered on 09/11/18at 23:51; Admin Dose 4,000 UNIT; Start 07/31/18 at 18:00 Sodium Chloride (NS) -To prime the dialy... DIRECTED FOR HD PRN IV HD; Start 07/31/18 at 18:00 Loratadine (Claritin) 10 mg DAILY PRN PO ALLERGIC REACTION Last administered on 08/07/18at 12:48; Admin Dose 10 MG; Start 08/07/18 at 12:30 Hydralazine HCl (Apresoline) 10 mg Q6H PRN PO ELEVATED BLOOD PRESSURE Last administered on 08/30/18at 02:15; Admin Dose 10 MG; Start 08/08/18 at 04:30 Hydralazine HCl (Apresoline) 25 mg TID PO Last administered on 09/12/18 13:56; Admin Dose 25 MG; Start 08/08/18 at 13:00 Eye Lubricant (Artificial Tears Oph) 2 drop QID BOTH EYES Last administered on 09/12/18 13:53; Admin Dose 2 DROP; Start 08/09/18 at 11:00 Calcium Carbonate (Tums) 500 mg PRN PRN PO HEARTBURN Last administered on 09/04/18 04:18; Admin Dose 500 MG; Start 08/09/18 at 14:30 Bisacodyl (Dulcolax Supp) 10 mg DAILY PRN [place] CONSTIPATION; Start 08/13/18 at 15:00 Furosemide (Lasix) 40 mg DAILY PO Last administered on 09/12/18 08:59; Admin Dose 40 MG; Start 08/17/18 at 15:00 Famotidine (Pepcid) 20 mg DAILY PO Last administered on 09/12/18 08:59; Admin Dose 20 MG; Start 08/22/18 at 09:00 Loperamide HCl (Imodium Cap) 2 mg QID PRN PO DIARRHEA; Start 08/21/18 at 16:00 Lactobacillus Acidophilus/ Rhamnosus (Culturelle) 1 cap BID PO Last administered on 09/06/18at 21:04; Admin Dose 1 CAP; Start 08/21/18 at 21:00 Nystatin (Nystatin Powder) 1 applic BID TOP Last administered on 09/12/18at 08:55; Admin Dose 1 APPLIC; Start 08/28/18 at 21:00 Tramadol HCl (Ultram) 100 mg Q6H PRN PO PAIN LEVEL 6-10 Last administered on 09/12/18 11:30; Admin Dose 100 MG; Start 09/01/18 at 02:00 Ondansetron HCl (Zofran Tab) 4 mg Q6H PRN PO NAUSEA AND/OR VOMITING Last administered on 09/10/18 07:58; Admin Dose 4 MG; Start 09/03/18 at 16:00 Linezolid (Zyvox) 600 mg BID PO Last administered on 09/12/18 08:57; Admin Dose 600 MG; Start 09/11/18 at 09:00 Mupirocin (Bactroban) 1 applic BID TOP Last administered on 09/12/18at 08:56; Admin Dose 1 APPLIC; Start 09/10/18 at 14:00 Al Hydrox/Mg Hydrox/Simethicone (Mag-Al Plus) 30 ml Q4H PRN PO GASTROINTESTINAL UPSET; Start 09/10/18 at 18:00 Results Result Diagram: 09/10/18 1029 09/10/18 1029 Results 24 hrs Laboratory Tests Test 09/11/18 17:24 09/11/18 23:47 09/12/18 08:17 09/12/18 12:44 Bedside Glucose 149 119 104 118 KOFI SWANN MD Sep 12, 2018 15:54
[2018-09-12 20:07] VITALS: BP 156/92; PULSE 82; RESP 18
[2018-09-12] MEDS: MELATONIN 3 MG TABLET PO PRN (23:45)
[2018-09-13] MEDS: ACCU-CHEK XX SCH (01:20)
[2018-09-13 02:22] VITALS: BP 121/66; PULSE 81; RESP 18
[2018-09-13] MEDS: traMADol 50 MG TAB PO PRN ×3 (05:45→18:30)
[2018-09-13] MEDS: INSULIN ASPART [NOVOLOG] 3 ML PEN SC SCH ×4 (07:50→21:00)
[2018-09-13 08:55] VITALS: BP 179/107; PULSE 74; RESP 18
[2018-09-13] MEDS: BALSAM PERU/CASTOR OIL 60 GM TUBE TOP SCH ×2 (09:00→20:23)
[2018-09-13] MEDS: LACTOBACILLUS RHAMNOSUS CAP PO SCH ×2 (09:00→20:23)
[2018-09-13] MEDS ORDERED: HEPARIN 5,000 UNIT/0.5 ML VIAL ONE ×2 (09:24→21:46)
[2018-09-13] MEDS: MUPIROCIN 2% 22 GM OINT TOP SCH ×2 (09:28→20:22)
[2018-09-13] MEDS: DICLOFENAC SODIUM 1% GEL 100 GM TUBE TP SCH ×4 (09:28→20:23)
[2018-09-13] MEDS: ALLOPURINOL 100 MG TAB PO SCH (09:28)
[2018-09-13] MEDS: ZYVOX 600 MG TAB PO SCH ×2 (09:29→21:53)
[2018-09-13] MEDS: FUROSEMIDE 40 MG TAB PO SCH (09:29)
[2018-09-13] MEDS: FAMOTIDINE 20 MG TAB PO SCH (09:29)
[2018-09-13] MEDS: HEPARIN 5,000 UNIT/1 ML VIAL SC SCH ×2 (09:32→21:55)
[2018-09-13] MEDS: ARTIFICIAL TEARS 15 ML OPH BOTH EYES SCH ×4 (09:32→20:22)
[2018-09-13] MEDS: NYSTATIN 30 GM POWDER BTL TOP SCH ×2 (09:33→20:22)
--- NOTE | 2018-09-13 12:14 | CONS ---
Date/Time of Note Date/Time of Note DATE: 09/13/18 TIME: 12:13 Assessment/Plan Assessment/Plan Chief Complaint/Hosp Course SUBJECTIVE: No acute events overnight per discussion with staff. Looks comfortable, no fevers INDWELLINGS: left chest Perm-A-Cath. MICROBIOLOGY: Urine culture on 08/03/2018 was positive for Klebsiella, enterococcus and Aerococcus abdominal umbilical drainage culture grew Corynebacterium group JK enterococcus and coagulase-negative staph species. ANTIMICROBIALS: The patient is on: 1. Oral Zyvox 2. Topical Bactroban to umbilical cord area. PHYSICAL EXAMINATION: GENERAL: This is a morbidly obese, chronically ill-appearing, elderly woman who is alert, in no distress. HEENT: Head atraumatic, normocephalic. NECK: Supple. CHEST: Rise symmetrical. Breath sounds clear. HEART: S1, S2. ABDOMEN: Obese, bowel tones present. EXTREMITIES: Without cyanosis. ASSESSMENT: 1. Status post systemic inflammatory response syndrome. 2. Status post urinary tract infection. 3. End-stage renal disease. 4. Diabetes. 5. Hypertension. 6. History of Clostridium difficile colitis. 7. Resolving umbilical cellulitis. PLAN: The patient remains stable. Continue present care. Continue short course antibiotics. Consultation Date/Type/Reason Admit Date/Time Jul 23, 2018 at 16:13 Initial Consult Date Type of Consult id Exam/Review of Systems Vital Signs Vitals Vital Signs Date Temp Pulse Resp B/P (MAP) Pulse Ox O2 O2 Flow FiO2 Time Delivery Rate 09/13/18 97.9 74 18 179/107 97 08:55 (131) 09/11/18 Room Air 20:32 Intake and Output 09/12/18 09/12/18 09/13/18 1515:00 23:00 07:00 IntakeIntake Total 480 ml OutputOutput Total 1 ml BalanceBalance 479 ml Medications Medications Current Medications Acetaminophen (Tylenol Tab) 325 mg Q4H PRN PO MILD PAIN(1-3)OR ELEVATED TEMP Last administered on 08/14/18at 17:29; Admin Dose 325 MG; Start 07/20/18 at 23:00 Allopurinol (Zyloprim) 100 mg DAILY PO Last administered on 09/13/18at 09:28; Admin Dose 100 MG; Start 07/21/18 at 09:00 IV Flush (NS 3 ml) 3 ml PER PROTOCOL IV ; Start 07/20/18 at 23:00 Acetaminophen (Tylenol Tab) 650 mg Q6H PRN PO PAIN LEVEL 1-3 OR FEVER Last administered on 08/21/18at 01:16; Admin Dose 650 MG; Start 07/20/18 at 23:00 Acetaminophen (Tylenol Supp) 650 mg Q6H PRN NM PAIN LEVEL 1-3 OR FEVER; Start 07/20/18 at 23:00 Docusate Sodium (Colace) 100 mg Q12H PRN PO CONSTIPATION Last administered on 09/04/18at 22:21; Admin Dose 100 MG; Start 07/20/18 at 23:00 Bisacodyl (Dulcolax) 5 mg DAILY PRN PO CONSTIPATION Last administered on 09/06/18at 04:59; Admin Dose 5 MG; Start 07/20/18 at 23:00 Diagnostic Test (Pha) (Accu-Chek) 1 ea 02 XX Last administered on 09/02/18at 02:04; Admin Dose 1 EA; Start 07/21/18 at 02:00 Insulin Aspart (Novolog Insulin Pen) NOVOLOG *MILD* ALGORITHM WITH MEALS BEDTIME SC Last administered on 09/11/18at 08:36; Admin Dose 1 UNIT; Start 07/21/18 at 07:50 Ergocalciferol (Drisdol) 50,000 unit Lacy@0900 PO Last administered on 09/11/18at 11:31; Admin Dose 50,000 UNIT; Start 07/24/18 at 09:00 Miscellaneous Information 1 ea NOTE XX ; Start 07/20/18 at 23:00 Glucose (Glutose) 15 gm Q15M PRN PO DECREASED GLUCOSE; Start 07/20/18 at 23:00 Glucose (Glutose) 22.5 gm Q15M PRN PO DECREASED GLUCOSE; Start 07/20/18 at 23: 00 Dextrose (D50w Syringe) 25 ml Q15M PRN IV DECREASED GLUCOSE; Start 07/20/18 at 23:00 Dextrose (D50w Syringe) 50 ml Q15M PRN IV DECREASED GLUCOSE; Start 07/20/18 at 23:00 Glucagon (Glucagen) 1 mg Q15M PRN IM DECREASED GLUCOSE; Start 07/20/18 at 23:00 Glucose (Glutose) 15 gm Q15M PRN BUCCAL DECREASED GLUCOSE; Start 07/20/18 at 23:00 Melatonin (Melatonin) 3 mg HS PRN PO INSOMNIA Last administered on 09/12/18 23:45; Admin Dose 3 MG; Start 07/20/18 at 23:00 Heparin Sodium (Porcine) 5,000 unit Q12 SC Last administered on 09/13/18 09:32; Admin Dose 5,000 UNIT; Start 07/21/18 at 21:00 Diclofenac Sodium (Voltaren 1% Gel) 2 gm QID TP Last administered on 09/13/18 09:28; Admin Dose 2 GM; Start 07/22/18 at 13:00 Guaifenesin/ Dextromethorphan (Robitussin Dm Liquid Cup) 10 ml Q4H PRN PO COUGH; Start 07/30/18 at 15:00 Heparin Sodium (Porcine) (Heparin (1000 Units/ml)) 4,000 unit AFTER DIALYSIS CATHETER Last administered on 09/11/18 23:51; Admin Dose 4,000 UNIT; Start 07/31/18 at 18:00 Sodium Chloride (NS) -To prime the dialy... DIRECTED FOR HD PRN IV HD; Start 07/31/18 at 18:00 Loratadine (Claritin) 10 mg DAILY PRN PO ALLERGIC REACTION Last administered on 08/07/18at 12:48; Admin Dose 10 MG; Start 08/07/18 at 12:30 Hydralazine HCl (Apresoline) 10 mg Q6H PRN PO ELEVATED BLOOD PRESSURE Last administered on 08/30/18at 02:15; Admin Dose 10 MG; Start 08/08/18 at 04:30 Hydralazine HCl (Apresoline) 25 mg TID PO Last administered on 09/13/18 09:28; Admin Dose 25 MG; Start 08/08/18 at 13:00 Eye Lubricant (Artificial Tears Oph) 2 drop QID BOTH EYES Last administered on 09/13/18 09:32; Admin Dose 2 DROP; Start 08/09/18 at 11:00 Calcium Carbonate (Tums) 500 mg PRN PRN PO HEARTBURN Last administered on 09/04/18 04:18; Admin Dose 500 MG; Start 08/09/18 at 14:30 Bisacodyl (Dulcolax Supp) 10 mg DAILY PRN [place] CONSTIPATION; Start 08/13/18 at 15:00 Furosemide (Lasix) 40 mg DAILY PO Last administered on 09/13/18 09:29; Admin Dose 40 MG; Start 08/17/18 at 15:00 Famotidine (Pepcid) 20 mg DAILY PO Last administered on 09/13/18 09:29; Admin Dose 20 MG; Start 08/22/18 at 09:00 Loperamide HCl (Imodium Cap) 2 mg QID PRN PO DIARRHEA; Start 08/21/18 at 16:00 Lactobacillus Acidophilus/ Rhamnosus (Culturelle) 1 cap BID PO Last administered on 09/06/18 21:04; Admin Dose 1 CAP; Start 08/21/18 at 21:00 Nystatin (Nystatin Powder) 1 applic BID TOP Last administered on 09/13/18 09:33; Admin Dose 1 APPLIC; Start 08/28/18 at 21:00 Tramadol HCl (Ultram) 100 mg Q6H PRN PO PAIN LEVEL 6-10 Last administered on 09/13/18at 11:45; Admin Dose 100 MG; Start 09/01/18 at 02:00 Ondansetron HCl (Zofran Tab) 4 mg Q6H PRN PO NAUSEA AND/OR VOMITING Last admin istered on 09/10/18 07:58; Admin Dose 4 MG; Start 09/03/18 at 16:00 Linezolid (Zyvox) 600 mg BID PO Last administered on 09/13/18 09:29; Admin Dose 600 MG; Start 09/11/18 at 09:00 Mupirocin (Bactroban) 1 applic BID TOP Last administered on 09/13/18at 09:28; Admin Dose 1 APPLIC; Start 09/10/18 at 14:00 Al Hydrox/Mg Hydrox/Simethicone (Mag-Al Plus) 30 ml Q4H PRN PO GASTROINTESTINAL UPSET; Start 09/10/18 at 18:00 Miscellaneous Information (*Order Clarification Bulletin) MEDICATION REQUIRES CLARIFICATI... Q8H XX ; Start 09/12/18 at 16:00 Results Result Diagram: 09/10/18 1029 09/10/18 1029 Results 24 hrs Laboratory Tests Test 09/12/18 12:44 09/12/18 17:54 09/12/18 23:22 09/13/18 08:48 Bedside Glucose 118 164 102 112 Test 09/13/18 11:49 Bedside Glucose 142 JEANIE CID NP Sep 13, 2018 12:14
[2018-09-13 13:26] VITALS: BP 145/75; PULSE 75
--- NOTE | 2018-09-13 14:12 | PN ---
Date/Time of Note Date/Time of Note DATE: 09/13/18 TIME: 14:10 Assessment/Plan VTE Prophylaxis Risk score (from Nsg)>0 risk: 6 SCD applied (from Nsg): Yes Pharmacological prophylaxis: other Lines/Catheters IV Catheter Type (from Nrsg): permacath Urinary Cath still in place: No Assessment/Plan Hospital Course 58 y/o with 1. . ckd iii-iv now with the complications of hyperkalemia, patient has been refusing Kayexalate V[place] has also been refusing dialysis, patient was explained the risks and consequences and patient completely understands the risks and consequences, now agreed, on and off Hd once a week 2. c diff hx 3. Chronic kidney disease, 4. Morbid obesity. 5. Diabetes. 6. Hypertension, 7. Gout.hx 8. Neuropathy. 9. History of congestive heart failure. 10 weakness 11 deconditioning 13 Left shoulde pain, TTP ? Frozen shoulder , shoulder impingement 14 s/p Fall ? AMS confusion likley due to UTI 15 uti klebsiella and enterococcus 16 diarrhea 15 vomtiing/? contipation> refuse labs again Plan - HD Once a week, a/p Hd yesterday, extra session tmw for volume overload -stool softners - Lactobacillus - cw with PT -- pt refused cortisone injecion per ortho - Wound care - US with thrombosed graft - Ortho consult however patient refused a cortisone shot - avoid narcotics as it would limit her ability to walk for PT as it happened last admission since pts goal is Physical therapy - low k diet, cw lasix - ABX PER ID> on zyvox -tyenolol on as needed headache -dc veltassa as pt has been refusing it - warm compresses to shoulder SNIF with HD -spoke to Her about GI evaluation for the persistent nausea however patient refused ? SNIF VS HOME, Pt keep on changing Subjective 24 Hr Interval Summary Free Text/Dictation Pt feels has gained weight Exam/Review of Systems Vital Signs Vitals Vital Signs Date Temp Pulse Resp B/P (MAP) Pulse Ox O2 O2 Flow FiO2 Time Delivery Rate 09/13/18 75 145/75 13:26 (98) 09/13/18 97.9 18 97 08:55 09/11/18 Room Air 20:32 Intake and Output 09/12/18 09/12/18 09/13/18 1515:00 23:00 07:00 IntakeIntake Total 480 ml OutputOutput Total 1 ml BalanceBalance 479 ml Exam right chest permcath Constitutional: alert, oriented, morbidly obese, lying on rt side Respiratory: clear to auscultation Cardiovascular: regular rate and rhythm Gastrointestinal: soft Medications Medications Current Medications Acetaminophen (Tylenol Tab) 325 mg Q4H PRN PO MILD PAIN(1-3)OR ELEVATED TEMP Last administered on 08/14/18 17:29; Admin Dose 325 MG; Start 07/20/18 at 23:00 Allopurinol (Zyloprim) 100 mg DAILY PO Last administered on 09/13/18 09:28; Admin Dose 100 MG; Start 07/21/18 at 09:00 IV Flush (NS 3 ml) 3 ml PER PROTOCOL IV ; Start 07/20/18 at 23:00 Acetaminophen (Tylenol Tab) 650 mg Q6H PRN PO PAIN LEVEL 1-3 OR FEVER Last administered on 08/21/18 01:16; Admin Dose 650 MG; Start 07/20/18 at 23:00 Acetaminophen (Tylenol Supp) 650 mg Q6H PRN [place] PAIN LEVEL 1-3 OR FEVER; Start 07/20/18 at 23:00 Docusate Sodium (Colace) 100 mg Q12H PRN PO CONSTIPATION Last administered on 09/04/18 22:21; Admin Dose 100 MG; Start 07/20/18 at 23:00 Bisacodyl (Dulcolax) 5 mg DAILY PRN PO CONSTIPATION Last administered on 09/06/18 04:59; Admin Dose 5 MG; Start 07/20/18 at 23:00 Diagnostic Test (Pha) (Accu-Chek) 1 ea 02 XX Last administered on 09/02/18 02:04; Admin Dose 1 EA; Start 07/21/18 at 02:00 Insulin Aspart (Novolog Insulin Pen) NOVOLOG *MILD* ALGORITHM WITH MEALS BEDTIME SC Last administered on 09/11/18 08:36; Admin Dose 1 UNIT; Start 07/21/18 at 07:50 Ergocalciferol (Drisdol) 50,000 unit Lacy@0900 PO Last administered on 09/11/18 11:31; Admin Dose 50,000 UNIT; Start 07/24/18 at 09:00 Miscellaneous Information 1 ea NOTE XX ; Start 07/20/18 at 23:00 Glucose (Glutose) 15 gm Q15M PRN PO DECREASED GLUCOSE; Start 07/20/18 at 23:00 Glucose (Glutose) 22.5 gm Q15M PRN PO DECREASED GLUCOSE; Start 07/20/18 at 23:00 Dextrose (D50w Syringe) 25 ml Q15M PRN IV DECREASED GLUCOSE; Start 07/20/18 at 23:00 Dextrose (D50w Syringe) 50 ml Q15M PRN IV DECREASED GLUCOSE; Start 07/20/18 at 23:00 Glucagon (Glucagen) 1 mg Q15M PRN IM DECREASED GLUCOSE; Start 07/20/18 at 23:00 Glucose (Glutose) 15 gm Q15M PRN BUCCAL DECREASED GLUCOSE; Start 07/20/18 at 23:00 Melatonin (Melatonin) 3 mg HS PRN PO INSOMNIA Last administered on 09/12/18at 23:45; Admin Dose 3 MG; Start 07/20/18 at 23:00 Heparin Sodium (Porcine) 5,000 unit Q12 SC Last administered on 09/13/18at 09:32; Admin Dose 5,000 UNIT; Start 07/21/18 at 21:00 Diclofenac Sodium (Voltaren 1% Gel) 2 gm QID TP Last administered on 09/13/18at 13:25; Admin Dose 2 GM; Start 07/22/18 at 13:00 Guaifenesin/ Dextromethorphan (Robitussin Dm Liquid Cup) 10 ml Q4H PRN PO COUGH; Start 07/30/18 at 15:00 Heparin Sodium (Porcine) (Heparin (1000 Units/ml)) 4,000 unit AFTER DIALYSIS CATHETER Last administered on 09/11/18at 23:51; Admin Dose 4,000 UNIT; Start 07/31/18 at 18:00 Sodium Chloride (NS) -To prime the dialy... DIRECTED FOR HD PRN IV HD; Start 07/31/18 at 18:00 Loratadine (Claritin) 10 mg DAILY PRN PO ALLERGIC REACTION Last administered on 08/07/18at 12:48; Admin Dose 10 MG; Start 08/07/18 at 12:30 Hydralazine HCl (Apresoline) 10 mg Q6H PRN PO ELEVATED BLOOD PRESSURE Last administered on 08/30/18 02:15; Admin Dose 10 MG; Start 08/08/18 at 04:30 Hydralazine HCl (Apresoline) 25 mg TID PO Last administered on 09/13/18 13:32; Admin Dose 25 MG; Start 08/08/18 at 13:00 Eye Lubricant (Artificial Tears Oph) 2 drop QID BOTH EYES Last administered on 09/13/18 09:32; Admin Dose 2 DROP; Start 08/09/18 at 11:00 Calcium Carbonate (Tums) 500 mg PRN PRN PO HEARTBURN Last administered on 09/04/18 04:18; Admin Dose 500 MG; Start 08/09/18 at 14:30 Bisacodyl (Dulcolax Supp) 10 mg DAILY PRN [place] CONSTIPATION; Start 08/13/18 at 15:00 Furosemide (Lasix) 40 mg DAILY PO Last administered on 09/13/18 09:29; Admin Dose 40 MG; Start 08/17/18 at 15:00 Famotidine (Pepcid) 20 mg DAILY PO Last administered on 09/13/18 09:29; Admin Dose 20 MG; Start 08/22/18 at 09:00 Loperamide HCl (Imodium Cap) 2 mg QID PRN PO DIARRHEA; Start 08/21/18 at 16:00 Lactobacillus Acidophilus/ Rhamnosus (Culturelle) 1 cap BID PO Last administered on 09/06/18 21:04; Admin Dose 1 CAP; Start 08/21/18 at 21:00 Nystatin (Nystatin Powder) 1 applic BID TOP Last administered on 09/13/18 09:33; Admin Dose 1 APPLIC; Start 08/28/18 at 21:00 Tramadol HCl (Ultram) 100 mg Q6H PRN PO PAIN LEVEL 6-10 Last administered on 09/13/18 11:45; Admin Dose 100 MG; Start 09/01/18 at 02:00 Ondansetron HCl (Zofran Tab) 4 mg Q6H PRN PO NAUSEA AND/OR VOMITING Last administered on 09/10/18 07:58; Admin Dose 4 MG; Start 09/03/18 at 16:00 Linezolid (Zyvox) 600 mg BID PO Last administered on 09/13/18 09:29; Admin Dose 600 MG; Start 09/11/18 at 09:00 Mupirocin (Bactroban) 1 applic BID TOP Last administered on 09/13/18at 09:28; Admin Dose 1 APPLIC; Start 09/10/18 at 14:00 Al Hydrox/Mg Hydrox/Simethicone (Mag-Al Plus) 30 ml Q4H PRN PO GASTROINTESTINAL UPSET; Start 09/10/18 at 18:00 Miscellaneous Information (*Order Clarification Bulletin) MEDICATION REQUIRES CLARIFICATI... Q8H XX ; Start 09/12/18 at 16:00 Results Result Diagram: 09/10/18 1029 09/10/18 1029 Results 24 hrs Laboratory Tests Test 09/12/18 17:54 09/12/18 23:22 09/13/18 08:48 09/13/18 11:49 Bedside Glucose 164 102 112 142 KOFI SWANN MD Sep 13, 2018 14:12
[2018-09-13] MEDS ORDERED: HEPARIN 1000 UNITS/ML 10 ML INJ CATHETER SCH (14:30)
[2018-09-13 20:30] VITALS: BP 118/59; PULSE 75; RESP 18
[2018-09-14] VITALS (17 sets, daily range): BP systolic 11–188; BP diastolic 61–98; PULSE 64–81; RESP 18–19
[2018-09-14] MEDS: BISACODYL (EC) 5 MG TAB PO PRN (00:15)
[2018-09-14] MEDS: traMADol 50 MG TAB PO PRN ×4 (00:17→23:16)
[2018-09-14] MEDS: DOCUSATE SODIUM 100 MG CAP PO PRN (00:18)
[2018-09-14] MEDS: ACCU-CHEK XX SCH ×2 (01:39→20:48)
[2018-09-14] MEDS: MELATONIN 3 MG TABLET PO PRN ×2 (02:43→23:16)
[2018-09-14] MEDS: INSULIN ASPART [NOVOLOG] 3 ML PEN SC SCH ×4 (07:50→20:48)
[2018-09-14] MEDS: LACTOBACILLUS RHAMNOSUS CAP PO SCH ×2 (08:42→20:43)
[2018-09-14] MEDS: ARTIFICIAL TEARS 15 ML OPH BOTH EYES SCH ×4 (08:55→20:42)
[2018-09-14] MEDS: MUPIROCIN 2% 22 GM OINT TOP SCH ×2 (09:00→20:45)
[2018-09-14] MEDS: FAMOTIDINE 20 MG TAB PO SCH (09:00)
[2018-09-14] MEDS: BALSAM PERU/CASTOR OIL 60 GM TUBE TOP SCH ×2 (09:00→20:44)
[2018-09-14] MEDS: ZYVOX 600 MG TAB PO SCH ×3 (09:00→23:16)
[2018-09-14] MEDS: FUROSEMIDE 40 MG TAB PO SCH (09:00)
[2018-09-14] MEDS: NYSTATIN 30 GM POWDER BTL TOP SCH ×2 (09:00→20:43)
[2018-09-14] MEDS: DICLOFENAC SODIUM 1% GEL 100 GM TUBE TP SCH ×4 (09:00→20:44)
[2018-09-14] MEDS: ALLOPURINOL 100 MG TAB PO SCH (09:00)
[2018-09-14] MEDS: HEPARIN 5,000 UNIT/1 ML VIAL SC SCH ×3 (09:00→23:23)
[2018-09-14] MEDS: ACETAMINOPHEN 325 MG TAB PO PRN (10:51)
--- NOTE | 2018-09-14 11:46 | CONS ---
Date/Time of Note Date/Time of Note DATE: 09/14/18 TIME: 11:45 Assessment/Plan Assessment/Plan Chief Complaint/Hosp Course SUBJECTIVE: No acute events overnight. Looks comfortable, no fevers INDWELLINGS: left chest Perm-A-Cath. MICROBIOLOGY: Urine culture on 08/03/2018 was positive for Klebsiella, enterococcus and Aerococcus abdominal umbilical drainage culture grew Corynebacterium group JK enterococcus and coagulase-negative staph species. ANTIMICROBIALS: The patient is on: 1. Oral Zyvox 2. Topical Bactroban to umbilical cord area. PHYSICAL EXAMINATION: GENERAL: This is a morbidly obese, chronically ill-appearing, elderly woman who is alert, in no distress. HEENT: Head atraumatic, normocephalic. NECK: Supple. CHEST: Rise symmetrical. Breath sounds clear. HEART: S1, S2. ABDOMEN: Obese, bowel tones present. EXTREMITIES: Without cyanosis. ASSESSMENT: 1. Status post systemic inflammatory response syndrome. 2. Status post urinary tract infection. 3. End-stage renal disease. 4. Diabetes. 5. Hypertension. 6. History of Clostridium difficile colitis. 7. Resolving umbilical cellulitis. PLAN: The patient remains stable. Completing antibiotics. Consultation Date/Type/Reason Admit Date/Time Jul 23, 2018 at 16:13 Initial Consult Date Type of Consult id Exam/Review of Systems Vital Signs Vitals Vital Signs Date Temp Pulse Resp B/P (MAP) Pulse Ox O2 O2 Flow FiO2 Time Delivery Rate 09/14/18 97.9 79 18 128/61 93 Nasal 08:32 (83) Cannula Medications Medications Current Medications Acetaminophen (Tylenol Tab) 325 mg Q4H PRN PO MILD PAIN(1-3)OR ELEVATED TEMP Last administered on 08/14/18at 17:29; Admin Dose 325 MG; Start 07/20/18 at 23:00 Allopurinol (Zyloprim) 100 mg DAILY PO Last administered on 09/13/18at 09:28; Admin Dose 100 MG; Start 07/21/18 at 09:00 IV Flush (NS 3 ml) 3 ml PER PROTOCOL IV ; Start 07/20/18 at 23:00 Acetaminophen (Tylenol Tab) 650 mg Q6H PRN PO PAIN LEVEL 1-3 OR FEVER Last administered on 09/14/18at 10:51; Admin Dose 650 MG; Start 07/20/18 at 23:00 Acetaminophen (Tylenol Supp) 650 mg Q6H PRN [place] PAIN LEVEL 1-3 OR FEVER; Start 07/20/18 at 23:00 Docusate Sodium (Colace) 100 mg Q12H PRN PO CONSTIPATION Last administered on 09/14/18at 00:18; Admin Dose 100 MG; Start 07/20/18 at 23:00 Bisacodyl (Dulcolax) 5 mg DAILY PRN PO CONSTIPATION Last administered on 09/14/18at 00:15; Admin Dose 5 MG; Start 07/20/18 at 23:00 Diagnostic Test (Pha) (Accu-Chek) 1 ea 02 XX Last administered on 09/02/18at 02:04; Admin Dose 1 EA; Start 07/21/18 at 02:00 Insulin Aspart (Novolog Insulin Pen) NOVOLOG *MILD* ALGORITHM WITH MEALS BEDTIME SC Last administered on 09/11/18at 08:36; Admin Dose 1 UNIT; Start 07/21/18 at 07:50 Ergocalciferol (Drisdol) 50,000 unit Lacy@0900 PO Last administered on 09/11/18at 11:31; Admin Dose 50,000 UNIT; Start 07/24/18 at 09:00 Miscellaneous Information 1 ea NOTE XX ; Start 07/20/18 at 23:00 Glucose (Glutose) 15 gm Q15M PRN PO DECREASED GLUCOSE; Start 07/20/18 at 23:00 Glucose (Glutose) 22.5 gm Q15M PRN PO DECREASED GLUCOSE; Start 07/20/18 at 23:00 Dextrose (D50w Syringe) 25 ml Q15M PRN IV DECREASED GLUCOSE; Start 07/20/18 at 23:00 Dextrose (D50w Syringe) 50 ml Q15M PRN IV DECREASED GLUCOSE; Start 07/20/18 at 23:00 Glucagon (Glucagen) 1 mg Q15M PRN IM DECREASED GLUCOSE; Start 07/20/18 at 23:00 Glucose (Glutose) 15 gm Q15M PRN BUCCAL DECREASED GLUCOSE; Start 07/20/18 at 23:00 Melatonin (Melatonin) 3 mg HS PRN PO INSOMNIA Last administered on 09/14/18at 02:43; Admin Dose 3 MG; Start 07/20/18 at 23:00 Heparin Sodium (Porcine) 5,000 unit Q12 SC Last administered on 09/13/18at 21 :55; Admin Dose 5,000 UNIT; Start 07/21/18 at 21:00 Diclofenac Sodium (Voltaren 1% Gel) 2 gm QID TP Last administered on 09/13/18at 20:23; Admin Dose 2 GM; Start 07/22/18 at 13:00 Guaifenesin/ Dextromethorphan (Robitussin Dm Liquid Cup) 10 ml Q4H PRN PO COUGH; Start 07/30/18 at 15:00 Sodium Chloride (NS) -To prime the dialy... DIRECTED FOR HD PRN IV HD; Start 07/31/18 at 18:00 Loratadine (Claritin) 10 mg DAILY PRN PO ALLERGIC REACTION Last administered on 08/07/18at 12:48; Admin Dose 10 MG; Start 08/07/18 at 12:30 Hydralazine HCl (Apresoline) 10 mg Q6H PRN PO ELEVATED BLOOD PRESSURE Last administered on 09/14/18 02:44; Admin Dose 10 MG; Start 08/08/18 at 04:30 Hydralazine HCl (Apresoline) 25 mg TID PO Last administered on 09/13/18at 13:32; Admin Dose 25 MG; Start 08/08/18 at 13:00 Eye Lubricant (Artificial Tears Oph) 2 drop QID BOTH EYES Last administered on 09/13/18at 20:22; Admin Dose 2 DROP; Start 08/09/18 at 11:00 Calcium Carbonate (Tums) 500 mg PRN PRN PO HEARTBURN Last administered on 09/04/18 04:18; Admin Dose 500 MG; Start 08/09/18 at 14:30 Bisacodyl (Dulcolax Supp) 10 mg DAILY PRN [place] CONSTIPATION; Start 08/13/18 at 15:00 Furosemide (Lasix) 40 mg DAILY PO Last administered on 09/13/18 09:29; Admin Dose 40 MG; Start 08/17/18 at 15:00 Famotidine (Pepcid) 20 mg DAILY PO Last administered on 09/13/18at 09:29; Admin Dose 20 MG; Start 08/22/18 at 09:00 Loperamide HCl (Imodium Cap) 2 mg QID PRN PO DIARRHEA; Start 08/21/18 at 16:00 Lactobacillus Acidophilus/ Rhamnosus (Culturelle) 1 cap BID PO Last administered on 09/06/18at 21:04; Admin Dose 1 CAP; Start 08/21/18 at 21:00 Nystatin (Nystatin Powder) 1 applic BID TOP Last administered on 09/13/18at 20:22; Admin Dose 1 APPLIC; Start 08/28/18 at 21:00 Tramadol HCl (Ultram) 100 mg Q6H PRN PO PAIN LEVEL 6-10 Last administered on 09/14/18at 06:14; Admin Dose 100 MG; Start 09/01/18 at 02:00 Ondansetron HCl (Zofran Tab) 4 mg Q6H PRN PO NAUSEA AND/OR VOMITING Last administered on 09/10/18 07:58; Admin Dose 4 MG; Start 09/03/18 at 16:00 Linezolid (Zyvox) 600 mg BID PO Last administered on 09/13/18at 21:53; Admin Dose 600 MG; Start 09/11/18 at 09:00 Mupirocin (Bactroban) 1 applic BID TOP Last administered on 09/13/18at 20:22; Admin Dose 1 APPLIC; Start 09/10/18 at 14:00 Al Hydrox/Mg Hydrox/Simethicone (Mag-Al Plus) 30 ml Q4H PRN PO GASTROINTESTINAL UPSET; Start 09/10/18 at 18:00 Miscellaneous Information (*Order Clarification Bulletin) MEDICATION REQUIRES CLARIFICATI... Q8H XX ; Start 09/12/18 at 16:00 Heparin Sodium (Porcine) (Heparin (1000 Units/ml)) 4,000 unit AFTER DIALYSIS CATHETER ; Start 09/13/18 at 14:30 Results Result Diagram: 09/10/18 1029 09/10/18 1029 Results 24 hrs Laboratory Tests Test 09/13/18 11:49 09/13/18 18:25 09/13/18 21:52 09/14/18 08:51 Bedside Glucose 142 114 128 121 JEANIE CID NP Sep 14, 2018 11:45
--- NOTE | 2018-09-14 18:57 | PN ---
Date/Time of Note Date/Time of Note DATE: 09/14/18 TIME: 18:56 Assessment/Plan VTE Prophylaxis Risk score (from Nsg)>0 risk: 4 SCD applied (from Ns): No SCD contraindicated: other Pharmacological prophylaxis: NA/contraindicated, heparin Pharm contraindication: other Lines/Catheters IV Catheter Type (from [facility]): permacath Urinary Cath still in place: No Assessment/Plan Hospital Course 58 y/o with 1. . ckd iii-iv now with the complications of hyperkalemia, patient has been refusing Kayexalate Veltassa has also been refusing dialysis, patient was explained the risks and consequences and patient completely understands the risks and consequences, now agreed, on and off Hd once a week 2. c diff hx 3. Chronic kidney disease, 4. Morbid obesity. 5. Diabetes. 6. Hypertension, 7. Gout.hx 8. Neuropathy. 9. History of congestive heart failure. 10 weakness 11 deconditioning 13 Left shoulde pain, TTP ? Frozen shoulder , shoulder impingement 14 s/p Fall ? AMS confusion likley due to UTI 15 uti klebsiella and enterococcus 16 diarrhea 15 vomtiing/? contipation> refuse labs again Plan - HD Once a week, hD TODAY -stool softners - Lactobacillus - cw with PT -- pt refused cortisone injecion per ortho - Wound care - US with thrombosed graft - Ortho consult however patient refused a cortisone shot - avoid narcotics as it would limit her ability to walk for PT as it happened last admission since pts goal is Physical therapy - low k diet, cw lasix - ABX PER ID> on zyvox -tyenolol on as needed headache -dc veltassa as pt has been refusing it - warm compresses to shoulder SNIF with HD -spoke to Her about GI evaluation for the persistent nausea however patient refused ? SNIF VS HOME, Pt keep on changing Subjective 24 Hr Interval Summary Free Text/Dictation HD today Exam/Review of Systems Vital Signs Vitals Vital Signs Date Temp Pulse Resp B/P (MAP) Pulse Ox O2 O2 Flow FiO2 Time Delivery Rate 09/14/18 97.7 81 18 101/62 98 Nasal 16:02 (75) Cannula Exam right chest permcath Constitutional: alert, oriented, morbidly obese, lying on rt side Respiratory: clear to auscultation Cardiovascular: regular rate and rhythm Gastrointestinal: soft Medications Medications Medications Current Medications Acetaminophen (Tylenol Tab) 325 mg Q4H PRN PO MILD PAIN(1-3)OR ELEVATED TEMP Last administered on 08/14/18at 17:29; Admin Dose 325 MG; Start 07/20/18 at 23:00 Allopurinol (Zyloprim) 100 mg DAILY PO Last administered on 09/13/18at 09:28; Admin Dose 100 MG; Start 07/21/18 at 09:00 IV Flush (NS 3 ml) 3 ml PER PROTOCOL IV ; Start 07/20/18 at 23:00 Acetaminophen (Tylenol Tab) 650 mg Q6H PRN PO PAIN LEVEL 1-3 OR FEVER Last administered on 09/14/18at 10:51; Admin Dose 650 MG; Start 07/20/18 at 23:00 Acetaminophen (Tylenol Supp) 650 mg Q6H PRN [place] PAIN LEVEL 1-3 OR FEVER; Start 07/20/18 at 23:00 Docusate Sodium (Colace) 100 mg Q12H PRN PO CONSTIPATION Last administered on 09/14/18at 00:18; Admin Dose 100 MG; Start 07/20/18 at 23:00 Bisacodyl (Dulcolax) 5 mg DAILY PRN PO CONSTIPATION Last administered on 09/14/18at 00:15; Admin Dose 5 MG; Start 07/20/18 at 23:00 Diagnostic Test (Pha) (Accu-Chek) 1 ea 02 XX Last administered on 09/02/18at 02:04; Admin Dose 1 EA; Start 07/21/18 at 02:00 Insulin Aspart (Novolog Insulin Pen) NOVOLOG *MILD* ALGORITHM WITH MEALS BEDTIME SC Last administered on 09/11/18at 08:36; Admin Dose 1 UNIT; Start 07/21/18 at 07:50 Ergocalciferol (Drisdol) 50,000 unit Lacy@0900 PO Last administered on 09/11/18at 11:31; Admin Dose 50,000 UNIT; Start 07/24/18 at 09:00 Miscellaneous Information 1 ea NOTE XX ; Start 07/20/18 at 23:00 Glucose (Glutose) 15 gm Q15M PRN PO DECREASED GLUCOSE; Start 07/20/18 at 23:00 Glucose (Glutose) 22.5 gm Q15M PRN PO DECREASED GLUCOSE; Start 07/20/18 at 23:00 Dextrose (D50w Syringe) 25 ml Q15M PRN IV DECREASED GLUCOSE; Start 07/20/18 at 23:00 Dextrose (D50w Syringe) 50 ml Q15M PRN IV DECREASED GLUCOSE; Start 07/20/18 at 23:00 Glucagon (Glucagen) 1 mg Q15M PRN IM DECREASED GLUCOSE; Start 07/20/18 at 23: 00 Glucose (Glutose) 15 gm Q15M PRN BUCCAL DECREASED GLUCOSE; Start 07/20/18 at 23:00 Melatonin (Melatonin) 3 mg HS PRN PO INSOMNIA Last administered on 09/14/18at 02:43; Admin Dose 3 MG; Start 07/20/18 at 23:00 Heparin Sodium (Porcine) 5,000 unit Q12 SC Last administered on 09/13/18at 21:55; Admin Dose 5,000 UNIT; Start 07/21/18 at 21:00 Diclofenac Sodium (Voltaren 1% Gel) 2 gm QID TP Last administered on 09/14/18at 12:54; Admin Dose 2 GM; Start 07/22/18 at 13:00 Guaifenesin/ Dextromethorphan (Robitussin Dm Liquid Cup) 10 ml Q4H PRN PO COUGH; Start 07/30/18 at 15:00 Sodium Chloride (NS) -To prime the dialy... DIRECTED FOR HD PRN IV HD; Start 07/31/18 at 18:00 Loratadine (Claritin) 10 mg DAILY PRN PO ALLERGIC REACTION Last administered on 08/07/18at 12:48; Admin Dose 10 MG; Start 08/07/18 at 12:30 Hydralazine HCl (Apresoline) 10 mg Q6H PRN PO ELEVATED BLOOD PRESSURE Last a dministered on 09/14/18at 02:44; Admin Dose 10 MG; Start 08/08/18 at 04:30 Hydralazine HCl (Apresoline) 25 mg TID PO Last administered on 09/14/18at 12:54; Admin Dose 25 MG; Start 08/08/18 at 13:00 Eye Lubricant (Artificial Tears Oph) 2 drop QID BOTH EYES Last administered on 09/13/18at 20:22; Admin Dose 2 DROP; Start 08/09/18 at 11:00 Calcium Carbonate (Tums) 500 mg PRN PRN PO HEARTBURN Last administered on 09/04/18 04:18; Admin Dose 500 MG; Start 08/09/18 at 14:30 Furosemide (Lasix) 40 mg DAILY PO Last administered on 09/13/18 09:29; Admin Dose 40 MG; Start 08/17/18 at 15:00 Famotidine (Pepcid) 20 mg DAILY PO Last administered on 09/13/18 09:29; Admin Dose 20 MG; Start 08/22/18 at 09:00 Loperamide HCl (Imodium Cap) 2 mg QID PRN PO DIARRHEA; Start 08/21/18 at 16:00 Lactobacillus Acidophilus/ Rhamnosus (Culturelle) 1 cap BID PO Last administered on 09/06/18 21:04; Admin Dose 1 CAP; Start 08/21/18 at 21:00 Nystatin (Nystatin Powder) 1 applic BID TOP Last administered on 09/13/18 20:22; Admin Dose 1 APPLIC; Start 08/28/18 at 21:00 Tramadol HCl (Ultram) 100 mg Q6H PRN PO PAIN LEVEL 6-10 Last administered on 09/14/18 12:53; Admin Dose 100 MG; Start 09/01/18 at 02:00 Ondansetron HCl (Zofran Tab) 4 mg Q6H PRN PO NAUSEA AND/OR VOMITING Last administered on 09/10/18 07:58; Admin Dose 4 MG; Start 09/03/18 at 16:00 Linezolid (Zyvox) 600 mg BID PO Last administered on 09/13/18 21:53; Admin Dose 600 MG; Start 09/11/18 at 09:00 Mupirocin (Bactroban) 1 applic BID TOP Last administered on 09/13/18 20:22; Admin Dose 1 APPLIC; Start 09/10/18 at 14:00 Al Hydrox/Mg Hydrox/Simethicone (Mag-Al Plus) 30 ml Q4H PRN PO GASTROINTESTINAL UPSET; Start 09/10/18 at 18:00 Miscellaneous Information (*Order Clarification Bulletin) MEDICATION REQUIRES CLARIFICATI... Q8H XX ; Start 09/12/18 at 16:00 Heparin Sodium (Porcine) (Heparin (1000 Units/ml)) 4,000 unit AFTER DIALYSIS CATHETER ; Start 09/13/18 at 14:30 Results Result Diagram: 09/10/18 1029 09/10/18 1029 Results 24 hrs Laboratory Tests Test 09/13/18 21:52 09/14/18 08:51 09/14/18 12:45 09/14/18 17:53 Bedside Glucose 128 121 109 110 KOFI SWANN MD Sep 14, 2018 18:57
[2018-09-14] MEDS ORDERED: HEPARIN 5,000 UNIT/0.5 ML VIAL ONE (20:26)
[2018-09-15 01:00] VITALS: BP 108/73; PULSE 77; RESP 20
[2018-09-15] MEDS: traMADol 50 MG TAB PO PRN ×3 (05:55→18:10)
[2018-09-15 07:57] VITALS: BP 123/74; PULSE 90; RESP 18
[2018-09-15] MEDS ORDERED: HEPARIN 5,000 UNIT/0.5 ML VIAL ONE ×2 (08:07→22:19)
[2018-09-15] MEDS: ARTIFICIAL TEARS 15 ML OPH BOTH EYES SCH ×4 (09:00→21:00)
[2018-09-15] MEDS: BALSAM PERU/CASTOR OIL 60 GM TUBE TOP SCH ×2 (09:00→21:00)
[2018-09-15] MEDS: DICLOFENAC SODIUM 1% GEL 100 GM TUBE TP SCH ×4 (09:00→21:00)
[2018-09-15] MEDS: NYSTATIN 30 GM POWDER BTL TOP SCH ×2 (09:00→21:00)
[2018-09-15] MEDS: LACTOBACILLUS RHAMNOSUS CAP PO SCH ×2 (09:00→21:00)
[2018-09-15] MEDS: INSULIN ASPART [NOVOLOG] 3 ML PEN SC SCH ×4 (09:16→21:00)
[2018-09-15] MEDS: FUROSEMIDE 40 MG TAB PO SCH (09:17)
[2018-09-15] MEDS: ZYVOX 600 MG TAB PO SCH ×2 (09:17→21:00)
[2018-09-15] MEDS: FAMOTIDINE 20 MG TAB PO SCH (09:18)
[2018-09-15] MEDS: ALLOPURINOL 100 MG TAB PO SCH (09:18)
[2018-09-15] MEDS: MUPIROCIN 2% 22 GM OINT TOP SCH ×2 (09:18→21:00)
[2018-09-15] MEDS: HEPARIN 5,000 UNIT/1 ML VIAL SC SCH ×2 (09:31→21:00)
--- NOTE | 2018-09-15 11:55 | CONS ---
Date/Time of Note Date/Time of Note DATE: 09/15/18 TIME: 11:51 Assessment/Plan Assessment/Plan Chief Complaint/Hosp Course SUBJECTIVE: No acute events overnight. Alert, c/o pain around umbilical cord, no fevers, NAD INDWELLINGS: left chest Perm-A-Cath. MICROBIOLOGY: Urine culture on 08/03/2018 was positive for Klebsiella, enterococcus and Aerococcus abdominal umbilical drainage culture grew Corynebacterium group JK enterococcus and coagulase-negative staph species. ANTIMICROBIALS: The patient is on: 1. Zyvox 2. Topical Bactroban to umbilical cord area. PHYSICAL EXAMINATION: GENERAL: This is a morbidly obese, chronically ill-appearing, elderly woman who is alert, in no distress. HEENT: Head atraumatic, normocephalic. NECK: Supple. CHEST: Rise symmetrical. Breath sounds clear. HEART: S1, S2. ABDOMEN: Obese, bowel tones present, pain around umbilical area with foul odor, no drainage, no erythema. EXTREMITIES: Without cyanosis. ASSESSMENT: 1. Status post systemic inflammatory response syndrome. 2. Status post urinary tract infection. 3. End-stage renal disease. 4. Diabetes. 5. Hypertension. 6. History of Clostridium difficile colitis. 7. Resolving umbilical cellulitis. PLAN: The patient remains stable. Will keep on current antibiotics. Consultation Date/Type/Reason Admit Date/Time Jul 23, 2018 at 16:13 Initial Consult Date Type of Consult id Exam/Review of Systems Vital Signs Vitals Vital Signs Date Temp Pulse Resp B/P (MAP) Pulse Ox O2 O2 Flow FiO2 Time Delivery Rate 09/15/18 Nasal 2.0 08:00 Cannula 09/15/18 98.0 90 18 123/74 97 07:57 (90) Intake and Output 09/14/18 09/14/18 09/15/18 1515:00 23:00 07:00 IntakeIntake Total 400 ml OutputOutput Total 3402 ml BalanceBalance -3402 ml 400 ml Medications Medications Current Medications Acetaminophen (Tylenol Tab) 325 mg Q4H PRN PO MILD PAIN(1-3)OR ELEVATED TEMP Last administered on 08/14/18at 17:29; Admin Dose 325 MG; Start 07/20/18 at 23:00 Allopurinol (Zyloprim) 100 mg DAILY PO Last administered on 09/15/18at 09:18; Admin Dose 100 MG; Start 07/21/18 at 09:00 IV Flush (NS 3 ml) 3 ml PER PROTOCOL IV ; Start 07/20/18 at 23:00 Acetaminophen (Tylenol Tab) 650 mg Q6H PRN PO PAIN LEVEL 1-3 OR FEVER Last administered on 09/14/18at 10:51; Admin Dose 650 MG; Start 07/20/18 at 23:00 Acetaminophen (Tylenol Supp) 650 mg Q6H PRN [place] PAIN LEVEL 1-3 OR FEVER; Start 07/20/18 at 23:00 Docusate Sodium (Colace) 100 mg Q12H PRN PO CONSTIPATION Last administered on 09/14/18at 00:18; Admin Dose 100 MG; Start 07/20/18 at 23:00 Bisacodyl (Dulcolax) 5 mg DAILY PRN PO CONSTIPATION Last administered on 09/14/18at 00:15; Admin Dose 5 MG; Start 07/20/18 at 23:00 Diagnostic Test (Pha) (Accu-Chek) 1 ea 02 XX Last administered on 09/02/18at 02:04; Admin Dose 1 EA; Start 07/21/18 at 02:00 Insulin Aspart (Novolog Insulin Pen) NOVOLOG *MILD* ALGORITHM WITH MEALS BED TIME SC Last administered on 09/11/18at 08:36; Admin Dose 1 UNIT; Start 07/21/18 at 07:50 Ergocalciferol (Drisdol) 50,000 unit Lacy@0900 PO Last administered on 09/11/18at 11:31; Admin Dose 50,000 UNIT; Start 07/24/18 at 09:00 Miscellaneous Information 1 ea NOTE XX ; Start 07/20/18 at 23:00 Glucose (Glutose) 15 gm Q15M PRN PO DECREASED GLUCOSE; Start 07/20/18 at 23:00 Glucose (Glutose) 22.5 gm Q15M PRN PO DECREASED GLUCOSE; Start 07/20/18 at 23:00 Dextrose (D50w Syringe) 25 ml Q15M PRN IV DECREASED GLUCOSE; Start 07/20/18 at 23:00 Dextrose (D50w Syringe) 50 ml Q15M PRN IV DECREASED GLUCOSE; Start 07/20/18 at 23:00 Glucagon (Glucagen) 1 mg Q15M PRN IM DECREASED GLUCOSE; Start 07/20/18 at 23:00 Glucose (Glutose) 15 gm Q15M PRN BUCCAL DECREASED GLUCOSE; Start 07/20/18 at 23:00 Melatonin (Melatonin) 3 mg HS PRN PO INSOMNIA Last administered on 09/14/18at 23:16; Admin Dose 3 MG; Start 07/20/18 at 23:00 Heparin Sodium (Porcine) 5,000 unit Q12 SC Last administered on 09/15/18at 09:31; Admin Dose 5,000 UNIT; Start 07/21/18 at 21:00 Diclofenac Sodium (Voltaren 1% Gel) 2 gm QID TP Last administered on 09/14/18 20:44; Admin Dose 2 GM; Start 07/22/18 at 13:00 Guaifenesin/ Dextromethorphan (Robitussin Dm Liquid Cup) 10 ml Q4H PRN PO COUGH; Start 07/30/18 at 15:00 Sodium Chloride (NS) -To prime the dialy... DIRECTED FOR HD PRN IV HD; Start 07/31/18 at 18:00 Loratadine (Claritin) 10 mg DAILY PRN PO ALLERGIC REACTION Last administered on 08/07/18at 12:48; Admin Dose 10 MG; Start 08/07/18 at 12:30 Hydralazine HCl (Apresoline) 10 mg Q6H PRN PO ELEVATED BLOOD PRESSURE Last administered on 09/14/18at 02:44; Admin Dose 10 MG; Start 08/08/18 at 04:30 Hydralazine HCl (Apresoline) 25 mg TID PO Last administered on 09/15/18 09:17; Admin Dose 25 MG; Start 08/08/18 at 13:00 Eye Lubricant (Artificial Tears Oph) 2 drop QID BOTH EYES Last administered on 09/13/18 20:22; Admin Dose 2 DROP; Start 08/09/18 at 11:00 Calcium Carbonate (Tums) 500 mg PRN PRN PO HEARTBURN Last administered on 09/04/18 04:18; Admin Dose 500 MG; Start 08/09/18 at 14:30 Furosemide (Lasix) 40 mg DAILY PO Last administered on 09/15/18at 09:17; Admin Dose 40 MG; Start 08/17/18 at 15:00 Famotidine (Pepcid) 20 mg DAILY PO Last administered on 09/15/18 09:18; Admin Dose 20 MG; Start 08/22/18 at 09:00 Loperamide HCl (Imodium Cap) 2 mg QID PRN PO DIARRHEA; Start 08/21/18 at 16:00 Lactobacillus Acidophilus/ Rhamnosus (Culturelle) 1 cap BID PO Last administered on 09/06/18at 21:04; Admin Dose 1 CAP; Start 08/21/18 at 21:00 Nystatin (Nystatin Powder) 1 applic BID TOP Last administered on 09/13/18at 20:22; Admin Dose 1 APPLIC; Start 08/28/18 at 21:00 Tramadol HCl (Ultram) 100 mg Q6H PRN PO PAIN LEVEL 6-10 Last administered on 09/15/18at 11:50; Admin Dose 100 MG; Start 09/01/18 at 02:00 Ondansetron HCl (Zofran Tab) 4 mg Q6H PRN PO NAUSEA AND/OR VOMITING Last administered on 09/10/18at 07:58; Admin Dose 4 MG; Start 09/03/18 at 16:00 Linezolid (Zyvox) 600 mg BID PO Last administered on 09/15/18at 09:17; Admin Dose 600 MG; Start 09/11/18 at 09:00 Mupirocin (Bactroban) 1 applic BID TOP Last administered on 09/15/18at 09:18; Admin Dose 1 APPLIC; Start 09/10/18 at 14:00 Al Hydrox/Mg Hydrox/Simethicone (Mag-Al Plus) 30 ml Q4H PRN PO GASTROINTESTINAL UPSET; Start 09/10/18 at 18:00 Miscellaneous Information (*Order Clarification Bulletin) MEDICATION REQUIRES CLARIFICATI... Q8H XX ; Start 09/12/18 at 16:00 Heparin Sodium (Porcine) (Heparin (1000 Units/ml)) 4,000 unit AFTER DIALYSIS CATHETER Last administered on 09/14/18at 23:07; Admin Dose 4,700 UNIT; Start 09/13/18 at 14:30 Results Result Diagram: 09/14/182017 Results 24 hrs Laboratory Tests Test 09/14/18 12:45 09/14/18 17:53 09/14/18 20:18 09/14/18 20:47 Bedside Glucose 109 110 95 Sodium Level 138 Potassium Level 4.5 Chloride Level 100 Carbon Dioxide 30 Level Anion Gap 8 Blood Urea 35 H Nitrogen Creatinine 3.20 H Est Glomerular 15 L Filtrat Rate mL/min Glucose Level 99 Calcium Level 8.6 Test 09/15/18 09:15 Bedside Glucose 123 JEANIE CID NP Sep 15, 2018 11:55
[2018-09-15 12:31] VITALS: BP 109/75; PULSE 84; RESP 18
[2018-09-15] MEDS ORDERED: traMADol 50 MG TAB PO ONE (14:00)
--- NOTE | 2018-09-15 14:59 | PN ---
Date/Time of Note Date/Time of Note DATE: 09/15/18 TIME: 14:58 Assessment/Plan VTE Prophylaxis Risk score (from Nsg)>0 risk: 5 SCD applied (from Nsg): Yes Pharmacological prophylaxis: other Lines/Catheters IV Catheter Type (from Nrsg): perma cath Urinary Cath still in place: No Assessment/Plan Hospital Course 58 y/o with 1. . ckd iii-iv now with the complications of hyperkalemia, patient has been refusing Kayexalate Velt[place]a has also been refusing dialysis, patient was explained the risks and consequences and patient completely understands the risks and consequences, now agreed, on and off Hd once a week 2. c diff hx 3. Chronic kidney disease, 4. Morbid obesity. 5. Diabetes. 6. Hypertension, 7. Gout.hx 8. Neuropathy. 9. History of congestive heart failure. 10 weakness 11 deconditioning 13 Left shoulde pain, TTP ? Frozen shoulder , shoulder impingement 14 s/p Fall ? AMS confusion likley due to UTI 15 uti klebsiella and enterococcus 16 diarrhea 15 vomtiing/? contipation> refuse labs again Plan - HD Once a week, s/p extra session yesterdat -stool softners - Lactobacillus - cw with PT -- pt refused cortisone injecion per ortho - Wound care - US with thrombosed graft - Ortho consult however patient refused a cortisone shot - avoid narcotics as it would limit her ability to walk for PT as it happened last admission since pts goal is Physical therapy - low k diet, cw lasix - ABX PER ID> on zyvox -tyenolol on as needed headache -dc veltassa as pt has been refusing it - warm compresses to shoulder SNIF with HD -spoke to Her about GI evaluation for the persistent nausea however patient refused ? SNIF VS HOME, Pt keep on changing Subjective 24 Hr Interval Summary Free Text/Dictation s/p HD yesterday Pt willing to go home now Exam/Review of Systems Vital Signs Vitals Vital Signs Date Temp Pulse Resp B/P (MAP) Pulse Ox O2 O2 Flow FiO2 Time Delivery Rate 09/15/18 98.8 84 18 109/75 99 12:31 (86) 09/15/18 Nasal 2.0 08:00 Cannula Intake and Output 09/14/18 09/14/18 09/15/18 1515:00 23:00 07:00 IntakeIntake Total 400 ml OutputOutput Total 3402 ml BalanceBalance -3402 ml 400 ml Exam right chest permcath Constitutional: alert, oriented, morbidly obese, lying on rt side Respiratory: clear to auscultation Cardiovascular: regular rate and rhythm Gastrointestinal: soft Medications Medications Current Medications Acetaminophen (Tylenol Tab) 325 mg Q4H PRN PO MILD PAIN(1-3)OR ELEVATED TEMP Last administered on 08/14/18 17:29; Admin Dose 325 MG; Start 07/20/18 at 23:00 Allopurinol (Zyloprim) 100 mg DAILY PO Last administered on 09/15/18 09:18; Admin Dose 100 MG; Start 07/21/18 at 09:00 IV Flush (NS 3 ml) 3 ml PER PROTOCOL IV ; Start 07/20/18 at 23:00 Acetaminophen (Tylenol Tab) 650 mg Q6H PRN PO PAIN LEVEL 1-3 OR FEVER Last administered on 09/14/18at 10:51; Admin Dose 650 MG; Start 07/20/18 at 23:00 Acetaminophen (Tylenol Supp) [address] PAIN LEVEL 1-3 OR FEVER; Start 07/20/18 at 23:00 Docusate Sodium (Colace) 100 mg Q12H PRN PO CONSTIPATION Last administered on 09/14/18at 00:18; Admin Dose 100 MG; Start 07/20/18 at 23:00 Bisacodyl (Dulcolax) 5 mg DAILY PRN PO CONSTIPATION Last administered on 09/14/18at 00:15; Admin Dose 5 MG; Start 07/20/18 at 23:00 Diagnostic Test (Pha) (Accu-Chek) 1 ea 02 XX Last administered on 09/02/18at 02:04; Admin Dose 1 EA; Start 07/21/18 at 02:00 Insulin Aspart (Novolog Insulin Pen) NOVOLOG *MILD* ALGORITHM WITH MEALS BEDTIME SC Last administered on 09/11/18at 08:36; Admin Dose 1 UNIT; Start 07/21/18 at 07:50 Ergocalciferol (Drisdol) 50,000 unit Lacy@0900 PO Last administered on 09/11/18 11:31; Admin Dose 50,000 UNIT; Start 07/24/18 at 09:00 Miscellaneous Information 1 ea NOTE XX ; Start 07/20/18 at 23:00 Glucose (Glutose) 15 gm Q15M PRN PO DECREASED GLUCOSE; Start 07/20/18 at 23:00 Glucose (Glutose) 22.5 gm Q15M PRN PO DECREASED GLUCOSE; Start 07/20/18 at 23:00 Dextrose (D50w Syringe) 25 ml Q15M PRN IV DECREASED GLUCOSE; Start 07/20/18 at 23:00 Dextrose (D50w Syringe) 50 ml Q15M PRN IV DECREASED GLUCOSE; Start 07/20/18 at 23:00 Glucagon (Glucagen) 1 mg Q15M PRN IM DECREASED GLUCOSE; Start 07/20/18 at 23:00 Glucose (Glutose) 15 gm Q15M PRN BUCCAL DECREASED GLUCOSE; Start 07/20/18 at 23:00 Melatonin (Melatonin) 3 mg HS PRN PO INSOMNIA Last administered on 09/14/18at 23:16; Admin Dose 3 MG; Start 07/20/18 at 23:00 Heparin Sodium (Porcine) 5,000 unit Q12 SC Last administered on 09/15/18at 09:31; Admin Dose 5,000 UNIT; Start 07/21/18 at 21:00 Diclofenac Sodium (Voltaren 1% Gel) 2 gm QID TP Last administered on 09/14/18at 20:44; Admin Dose 2 GM; Start 07/22/18 at 13:00 Guaifenesin/ Dextromethorphan (Robitussin Dm Liquid Cup) 10 ml Q4H PRN PO COUGH; Start 07/30/18 at 15:00 Sodium Chloride (NS) -To prime the dialy... DIRECTED FOR HD PRN IV HD; Start 07/31/18 at 18:00 Loratadine (Claritin) 10 mg DAILY PRN PO ALLERGIC REACTION Last administered on 08/07/18at 12:48; Admin Dose 10 MG; Start 08/07/18 at 12:30 Hydralazine HCl (Apresoline) 10 mg Q6H PRN PO ELEVATED BLOOD PRESSURE Last administered on 09/14/18at 02:44; Admin Dose 10 MG; Start 08/08/18 at 04:30 Hydralazine HCl (Apresoline) 25 mg TID PO Last administered on 09/15/18 09:17; Admin Dose 25 MG; Start 08/08/18 at 13:00 Eye Lubricant (Artificial Tears Oph) 2 drop QID BOTH EYES Last administered on 09/13/18 20:22; Admin Dose 2 DROP; Start 08/09/18 at 11:00 Calcium Carbonate (Tums) 500 mg PRN PRN PO HEARTBURN Last administered on 09/04/18 04:18; Admin Dose 500 MG; Start 08/09/18 at 14:30 Furosemide (Lasix) 40 mg DAILY PO Last administered on 09/15/18 09:17; Admin Dose 40 MG; Start 08/17/18 at 15:00 Famotidine (Pepcid) 20 mg DAILY PO Last administered on 09/15/18 09:18; Admin Dose 20 MG; Start 08/22/18 at 09:00 Loperamide HCl (Imodium Cap) 2 mg QID PRN PO DIARRHEA; Start 08/21/18 at 16:00 Lactobacillus Acidophilus/ Rhamnosus (Culturelle) 1 cap BID PO Last administered on 09/06/18 21:04; Admin Dose 1 CAP; Start 08/21/18 at 21:00 Nystatin (Nystatin Powder) 1 applic BID TOP Last administered on 09/13/18 20:22; Admin Dose 1 APPLIC; Start 08/28/18 at 21:00 Tramadol HCl (Ultram) 100 mg Q6H PRN PO PAIN LEVEL 6-10 Last administered on 09/15/18 11:50; Admin Dose 100 MG; Start 09/01/18 at 02:00 Ondansetron HCl (Zofran Tab) 4 mg Q6H PRN PO NAUSEA AND/OR VOMITING Last administered on 09/10/18at 07:58; Admin Dose 4 MG; Start 09/03/18 at 16:00 Linezolid (Zyvox) 600 mg BID PO Last administered on 09/15/18 09:17; Admin Dose 600 MG; Start 09/11/18 at 09:00 Mupirocin (Bactroban) 1 applic BID TOP Last administered on 09/15/18 09:18; Admin Dose 1 APPLIC; Start 09/10/18 at 14:00 Al Hydrox/Mg Hydrox/Simethicone (Mag-Al Plus) 30 ml Q4H PRN PO GASTROINTESTINAL UPSET; Start 09/10/18 at 18:00 Miscellaneous Information (*Order Clarification Bulletin) MEDICATION REQUIRES CLARIFICATI... Q8H XX ; Start 09/12/18 at 16:00 Heparin Sodium (Porcine) (Heparin (1000 Units/ml)) 4,000 unit AFTER DIALYSIS CATHETER Last administered on 09/14/18at 23:07; Admin Dose 4,700 UNIT; Start 09/13/18 at 14:30 Results Result Diagram: 09/14/182017 Results 24 hrs Laboratory Tests Test 09/14/18 17:53 09/14/18 20:18 09/14/18 20:47 09/15/18 09:15 Bedside Glucose 110 95 123 Sodium Level 138 Potassium Level 4.5 Chloride Level 100 Carbon Dioxide 30 Level Anion Gap 8 Blood Urea 35 H Nitrogen Creatinine 3.20 H Est Glomerular 15 L Filtrat Rate mL/min Glucose Level 99 Calcium Level 8.6 Test 09/15/18 13:17 Bedside Glucose 109 KOFI SWANN MD Sep 15, 2018 14:59
[2018-09-15 19:30] VITALS: BP 104/57; PULSE 80; RESP 20
[2018-09-16] MEDS: traMADol 50 MG TAB PO PRN ×4 (00:27→18:19)
[2018-09-16] MEDS: ACCU-CHEK XX SCH (02:00)
[2018-09-16 02:15] VITALS: BP 107/66; PULSE 91; RESP 20
[2018-09-16] MEDS: INSULIN ASPART [NOVOLOG] 3 ML PEN SC SCH ×4 (07:50→21:00)
[2018-09-16] MEDS ORDERED: HEPARIN 5,000 UNIT/0.5 ML VIAL ONE ×2 (08:24→20:24)
[2018-09-16] MEDS: BISACODYL (EC) 5 MG TAB PO PRN (08:33)
[2018-09-16] MEDS: ZYVOX 600 MG TAB PO SCH ×2 (08:34→21:02)
[2018-09-16] MEDS: ALLOPURINOL 100 MG TAB PO SCH (08:34)
[2018-09-16] MEDS: FAMOTIDINE 20 MG TAB PO SCH (08:36)
[2018-09-16] MEDS: FUROSEMIDE 40 MG TAB PO SCH (08:37)
[2018-09-16] MEDS: HEPARIN 5,000 UNIT/1 ML VIAL SC SCH ×2 (08:38→21:05)
[2018-09-16] MEDS: MUPIROCIN 2% 22 GM OINT TOP SCH ×2 (08:39→21:03)
[2018-09-16] MEDS: BALSAM PERU/CASTOR OIL 60 GM TUBE TOP SCH ×2 (08:39→21:03)
[2018-09-16] MEDS: NYSTATIN 30 GM POWDER BTL TOP SCH ×2 (08:39→21:03)
[2018-09-16] MEDS: ARTIFICIAL TEARS 15 ML OPH BOTH EYES SCH ×4 (08:39→21:04)
[2018-09-16] MEDS: DICLOFENAC SODIUM 1% GEL 100 GM TUBE TP SCH ×4 (08:39→21:02)
[2018-09-16] MEDS: LACTOBACILLUS RHAMNOSUS CAP PO SCH ×2 (08:40→21:00)
--- NOTE | 2018-09-16 13:47 | CONS ---
Date/Time of Note Date/Time of Note DATE: 09/16/18 TIME: 13:45 Assessment/Plan Assessment/Plan Chief Complaint/Hosp Course SUBJECTIVE: No acute events overnight. Awake looks comfortable, no fevers INDWELLINGS: left chest Perm-A-Cath. MICROBIOLOGY: Urine culture on 08/03/2018 was positive for Klebsiella, enteroc occus and Aerococcus abdominal umbilical drainage culture grew Corynebacterium group JK enterococcus and coagulase-negative staph species. ANTIMICROBIALS: The patient is on: 1. Zyvox 2. Topical Bactroban to umbilical cord area. PHYSICAL EXAMINATION: GENERAL: This is a morbidly obese, chronically ill-appearing, elderly woman who is alert, in no distress. HEENT: Head atraumatic, normocephalic. NECK: Supple. CHEST: Rise symmetrical. Breath sounds clear. HEART: S1, S2. ABDOMEN: Obese, bowel tones present, pain around umbilical area with foul odor, no drainage, no erythema. EXTREMITIES: Without cyanosis. ASSESSMENT: 1. Status post systemic inflammatory response syndrome. 2. Status post urinary tract infection. 3. End-stage renal disease. 4. Diabetes. 5. Hypertension. 6. History of Clostridium difficile colitis. 7. Resolving umbilical cellulitis. PLAN: The patient remains stable. Continue antibiotics given persistent pain and foul odor from umbilical area. Consultation Date/Type/Reason Admit Date/Time Jul 23, 2018 at 16:13 Initial Consult Date Type of Consult id Exam/Review of Systems Vital Signs Vitals Vital Signs Date Temp Pulse Resp B/P (MAP) Pulse Ox O2 O2 Flow FiO2 Time Delivery Rate 09/16/18 97.6 91 20 107/66 94 02:15 (80) 09/15/18 Nasal 2.0 08:00 Cannula Intake and Output 09/15/18 09/15/18 09/16/18 1515:00 23:00 07:00 IntakeIntake Total 200 ml BalanceBalance 200 ml Medications Medications Current Medications Acetaminophen (Tylenol Tab) 325 mg Q4H PRN PO MILD PAIN(1-3)OR ELEVATED TEMP Last administered on 08/14/18at 17:29; Admin Dose 325 MG; Start 07/20/18 at 23:00 Allopurinol (Zyloprim) 100 mg DAILY PO Last administered on 09/16/18at 08:34; Admin Dose 100 MG; Start 07/21/18 at 09:00 IV Flush (NS 3 ml) 3 ml PER PROTOCOL IV ; Start 07/20/18 at 23:00 Acetaminophen (Tylenol Tab) 650 mg Q6H PRN PO PAIN LEVEL 1-3 OR FEVER Last administered on 09/14/18at 10:51; Admin Dose 650 MG; Start 07/20/18 at 23:00 Acetaminophen (Tylenol Supp) 650 mg Q6H PRN [place] PAIN LEVEL 1-3 OR FEVER; Start 07/20/18 at 23:00 Docusate Sodium (Colace) 100 mg Q12H PRN PO CONSTIPATION Last administered on 09/14/18at 00:18; Admin Dose 100 MG; Start 07/20/18 at 23:00 Bisacodyl (Dulcolax) 5 mg DAILY PRN PO CONSTIPATION Last administered on 09/16/18at 08:33; Admin Dose 5 MG; Start 07/20/18 at 23:00 Diagnostic Test (Pha) (Accu-Chek) 1 ea 02 XX Last administered on 09/02/18at 02:04; Admin Dose 1 EA; Start 07/21/18 at 02:00 Insulin Aspart (Novolog Insulin Pen) NOVOLOG *MILD* ALGORITHM WITH MEALS BEDTIME SC Last administered on 09/11/18at 08:36; Admin Dose 1 UNIT; Start 07/21/18 at 07:50 Ergocalciferol (Drisdol) 50,000 unit Lacy@0900 PO Last administered on 09/11/18at 11:31; Admin Dose 50,000 UNIT; Start 07/24/18 at 09:00 Miscellaneous Information 1 ea NOTE XX ; Start 07/20/18 at 23:00 Glucose (Glutose) 15 gm Q15M PRN PO DECREASED GLUCOSE; Start 07/20/18 at 23:00 Glucose (Glutose) 22.5 gm Q15M PRN PO DECREASED GLUCOSE; Start 07/20/18 at 23:00 Dextrose (D50w Syringe) 25 ml Q15M PRN IV DECREASED GLUCOSE; Start 07/20/18 at 23:00 Dextrose (D50w Syringe) 50 ml Q15M PRN IV DECREASED GLUCOSE; Start 07/20/18 at 23:00 Glucagon (Glucagen) 1 mg Q15M PRN IM DECREASED GLUCOSE; Start 07/20/18 at 23:00 Glucose (Glutose) 15 gm Q15M PRN BUCCAL DECREASED GLUCOSE; Start 07/20/18 at 23:00 Melatonin (Melatonin) 3 mg HS PRN PO INSOMNIA Last administered on 09/14/18 23:16; Admin Dose 3 MG; Start 07/20/18 at 23:00 Heparin Sodium (Porcine) 5,000 unit Q12 SC Last administered on 09/16/18 08:38; Admin Dose 5,000 UNIT; Start 07/21/18 at 21:00 Diclofenac Sodium (Voltaren 1% Gel) 2 gm QID TP Last administered on 09/16/18 08:39; Admin Dose 2 GM; Start 07/22/18 at 13:00 Guaifenesin/ Dextromethorphan (Robitussin Dm Liquid Cup) 10 ml Q4H PRN PO COUGH; Start 07/30/18 at 15:00 Sodium Chloride (NS) -To prime the dialy... DIRECTED FOR HD PRN IV HD; Start 07/31/18 at 18:00 Loratadine (Claritin) 10 mg DAILY PRN PO ALLERGIC REACTION Last administered on 08/07/18 12:48; Admin Dose 10 MG; Start 08/07/18 at 12:30 Hydralazine HCl (Apresoline) 10 mg Q6H PRN PO ELEVATED BLOOD PRESSURE Last administered on 09/14/18 02:44; Admin Dose 10 MG; Start 08/08/18 at 04:30 Hydralazine HCl (Apresoline) 25 mg TID PO Last administered on 09/16/18 08:36; Admin Dose 25 MG; Start 08/08/18 at 13:00 Eye Lubricant (Artificial Tears Oph) 2 drop QID BOTH EYES Last administered on 09/16/18 08:39; Admin Dose 2 DROP; Start 08/09/18 at 11:00 Calcium Carbonate (Tums) 500 mg PRN PRN PO HEARTBURN Last administered on 09/04/18 04:18; Admin Dose 500 MG; Start 08/09/18 at 14:30 Furosemide (Lasix) 40 mg DAILY PO Last administered on 09/16/18 08:37; Admin Dose 40 MG; Start 08/17/18 at 15:00 Famotidine (Pepcid) 20 mg DAILY PO Last administered on 12/14/18at 08:36; Admin Dose 20 MG; Start 08/22/18 at 09:00 Loperamide HCl (Imodium Cap) 2 mg QID PRN PO DIARRHEA; Start 08/21/18 at 16:00 Lactobacillus Acidophilus/ Rhamnosus (Culturelle) 1 cap BID PO Last administered on 09/06/18at 21:04; Admin Dose 1 CAP; Start 08/21/18 at 21:00 Nystatin (Nystatin Powder) 1 applic BID TOP Last administered on 09/16/18at 08:39; Admin Dose 1 APPLIC; Start 08/28/18 at 21:00 Tramadol HCl (Ultram) 100 mg Q6H PRN PO PAIN LEVEL 6-10 Last administered on 09/16/18 12:22; Admin Dose 100 MG; Start 09/01/18 at 02:00 Ondansetron HCl (Zofran Tab) 4 mg Q6H PRN PO NAUSEA AND/OR VOMITING Last administered on 09/10/18 07:58; Admin Dose 4 MG; Start 09/03/18 at 16:00 Linezolid (Zyvox) 600 mg BID PO Last administered on 09/16/18 08:34; Admin Dose 600 MG; Start 09/11/18 at 09:00 Mupirocin (Bactroban) 1 applic BID TOP Last administered on 09/16/18at 08:39; Admin Dose 1 APPLIC; Start 09/10/18 at 14:00 Al Hydrox/Mg Hydrox/Simethicone (Mag-Al Plus) 30 ml Q4H PRN PO GASTROINTESTINAL UPSET; Start 09/10/18 at 18:00 Miscellaneous Information (*Order Clarification Bulletin) MEDICATION REQUIRES CLARIFICATI... Q8H XX ; Start 09/12/18 at 16:00 Heparin Sodium (Porcine) (Heparin (1000 Units/ml)) 4,000 unit AFTER DIALYSIS CATHETER Last administered on 09/14/18at 23:07; Admin Dose 4,700 UNIT; Start 09/13/18 at 14:30 Results Result Diagram: 09/14/182017 Results 24 hrs Laboratory Tests Test 09/15/18 18:11 09/16/18 08:32 09/16/18 12:31 Bedside Glucose 104 89 119 JEANIE CID NP Sep 16, 2018 13:47
[2018-09-16 14:00] VITALS: BP 110/68; PULSE 88; RESP 20
--- NOTE | 2018-09-16 17:48 | PN ---
Date/Time of Note Date/Time of Note DATE: 09/16/18 TIME: 17:46 Assessment/Plan VTE Prophylaxis Risk score (from Nsg)>0 risk: 4 SCD applied (from Nsg): Yes SCD contraindicated: other Pharmacological prophylaxis: NA/contraindicated, heparin Pharm contraindication: low risk/ambulating Lines/Catheters IV Catheter Type (from Nrsg): PERMA CATH Urinary Cath still in place: No Assessment/Plan Hospital Course 58 y/o with 1. . ckd iii-iv now with the complications of hyperkalemia, patient has been refusing Kayexalate [place] has also been refusing dialysis, patient was explained the risks and consequences and patient completely understands the risks and consequences, now agreed, on and off Hd once a week 2. c diff hx 3. Chronic kidney disease, 4. Morbid obesity. 5. Diabetes. 6. Hypertension, 7. Gout.hx 8. Neuropathy. 9. History of congestive heart failure. 10 weakness 11 deconditioning 13 Left shoulde pain, TTP ? Frozen shoulder , shoulder impingement 14 s/p Fall ? AMS confusion likley due to UTI 15 uti klebsiella and enterococcus 16 diarrhea 15 vomtiing/? contipation> refuse labs again Plan - HD Once a week, next tmw -stool softners - Lactobacillus - cw with PT -- pt refused cortisone injecion per ortho - Wound care - US with thrombosed graft - Ortho consult however patient refused a cortisone shot - avoid narcotics as it would limit her ability to walk for PT as it happened last admission since pts goal is Physical therapy - low k diet, cw lasix - ABX PER ID> on zyvox -tyenolol on as needed headache -dc veltassa as pt has been refusing it - warm compresses to shoulder SNIF with HD -spoke to Her about GI evaluation for the persistent nausea however patient refused ? SNIF VS HOME, Pt keep on changing Subjective 24 Hr Interval Summary Free Text/Dictation Complaining of pain in the umbilical region It is saying that the physical therapy did not come for last 2 days, Checked with the nurses and they said that she had been refusing them Exam/Review of Systems Vital Signs Vitals Vital Signs Date Temp Pulse Resp B/P (MAP) Pulse Ox O2 O2 Flow FiO2 Time Delivery Rate 09/16/18 98.0 88 20 110/68 92 14:00 (82) 09/15/18 Nasal 2.0 08:00 Cannula Intake and Output 09/15/18 09/15/18 09/16/18 1515:00 23:00 07:00 IntakeIntake Total 200 ml BalanceBalance 200 ml Exam right chest permcath Constitutional: alert, oriented, morbidly obese, lying on rt side Respiratory: clear to auscultation Cardiovascular: regular rate and rhythm Gastrointestinal: soft Medications Medications Current Medications Acetaminophen (Tylenol Tab) 325 mg Q4H PRN PO MILD PAIN(1-3)OR ELEVATED TEMP Last administered on 08/14/18 17:29; Admin Dose 325 MG; Start 07/20/18 at 23:00 Allopurinol (Zyloprim) 100 mg DAILY PO Last administered on 09/16/18 08:34; A dmin Dose 100 MG; Start 07/21/18 at 09:00 IV Flush (NS 3 ml) 3 ml PER PROTOCOL IV ; Start 07/20/18 at 23:00 Acetaminophen (Tylenol Tab) 650 mg Q6H PRN PO PAIN LEVEL 1-3 OR FEVER Last administered on 09/14/18at 10:51; Admin Dose 650 MG; Start 07/20/18 at 23:00 Acetaminophen (Tylenol Supp) 650 mg Q6H PRN [place] PAIN LEVEL 1-3 OR FEVER; Start 07/20/18 at 23:00 Docusate Sodium (Colace) 100 mg Q12H PRN PO CONSTIPATION Last administered on 09/14/18 00:18; Admin Dose 100 MG; Start 07/20/18 at 23:00 Bisacodyl (Dulcolax) 5 mg DAILY PRN PO CONSTIPATION Last administered on 09/16/18at 08:33; Admin Dose 5 MG; Start 07/20/18 at 23:00 Diagnostic Test (Pha) (Accu-Chek) 1 ea 02 XX Last administered on 09/02/18at 02:04; Admin Dose 1 EA; Start 07/21/18 at 02:00 Insulin Aspart (Novolog Insulin Pen) NOVOLOG *MILD* ALGORITHM WITH MEALS BEDTIME SC Last administered on 09/11/18at 08:36; Admin Dose 1 UNIT; Start 07/21/18 at 07:50 Ergocalciferol (Drisdol) 50,000 unit Lacy@0900 PO Last administered on 09/11/18at 11:31; Admin Dose 50,000 UNIT; Start 07/24/18 at 09:00 Miscellaneous Information 1 ea NOTE XX ; Start 07/20/18 at 23:00 Glucose (Glutose) 15 gm Q15M PRN PO DECREASED GLUCOSE; Start 07/20/18 at 23:00 Glucose (Glutose) 22.5 gm Q15M PRN PO DECREASED GLUCOSE; Start 07/20/18 at 23:00 Dextrose (D50w Syringe) 25 ml Q15M PRN IV DECREASED GLUCOSE; Start 07/20/18 at 23:00 Dextrose (D50w Syringe) 50 ml Q15M PRN IV DECREASED GLUCOSE; Start 07/20/18 at 23:00 Glucagon (Glucagen) 1 mg Q15M PRN IM DECREASED GLUCOSE; Start 07/20/18 at 23:00 Glucose (Glutose) 15 gm Q15M PRN BUCCAL DECREASED GLUCOSE; Start 07/20/18 at 23:00 Melatonin (Melatonin) 3 mg HS PRN PO INSOMNIA Last administered on 09/14/18at 23:16; Admin Dose 3 MG; Start 07/20/18 at 23:00 Heparin Sodium (Porcine) 5,000 unit Q12 SC Last administered on 09/16/18at 08:38; Admin Dose 5,000 UNIT; Start 07/21/18 at 21:00 Diclofenac Sodium (Voltaren 1% Gel) 2 gm QID TP Last administered on 09/16/18at 17:40; Admin Dose 2 GM; Start 07/22/18 at 13:00 Guaifenesin/ Dextromethorphan (Robitussin Dm Liquid Cup) 10 ml Q4H PRN PO COUGH; Start 07/30/18 at 15:00 Sodium Chloride (NS) -To prime the dialy... DIRECTED FOR HD PRN IV HD; Start 07/31/18 at 18:00 Loratadine (Claritin) 10 mg DAILY PRN PO ALLERGIC REACTION Last administered on 08/07/18at 12:48; Admin Dose 10 MG; Start 08/07/18 at 12:30 Hydralazine HCl (Apresoline) 10 mg Q6H PRN PO ELEVATED BLOOD PRESSURE Last administered on 09/14/18at 02:44; Admin Dose 10 MG; Start 08/08/18 at 04:30 Hydralazine HCl (Apresoline) 25 mg TID PO Last administered on 09/16/18 08:36; Admin Dose 25 MG; Start 08/08/18 at 13:00 Eye Lubricant (Artificial Tears Oph) 2 drop QID BOTH EYES Last administered on 09/16/18 17:40; Admin Dose 2 DROP; Start 08/09/18 at 11:00 Calcium Carbonate (Tums) 500 mg PRN PRN PO HEARTBURN Last administered on 09/04/18 04:18; Admin Dose 500 MG; Start 08/09/18 at 14:30 Furosemide (Lasix) 40 mg DAILY PO Last administered on 09/16/18 08:37; Admin Dose 40 MG; Start 08/17/18 at 15:00 Famotidine (Pepcid) 20 mg DAILY PO Last administered on 09/16/18 08:36; Admin Dose 20 MG; Start 08/22/18 at 09:00 Loperamide HCl (Imodium Cap) 2 mg QID PRN PO DIARRHEA; Start 08/21/18 at 16:00 Lactobacillus Acidophilus/ Rhamnosus (Culturelle) 1 cap BID PO Last administered on 09/06/18 21:04; Admin Dose 1 CAP; Start 08/21/18 at 21:00 Nystatin (Nystatin Powder) 1 applic BID TOP Last administered on 09/16/18 08:39; Admin Dose 1 APPLIC; Start 08/28/18 at 21:00 Tramadol HCl (Ultram) 100 mg Q6H PRN PO PAIN LEVEL 6-10 Last administered on 09/16/18 12:22; Admin Dose 100 MG; Start 09/01/18 at 02:00 Ondansetron HCl (Zofran Tab) 4 mg Q6H PRN PO NAUSEA AND/OR VOMITING Last administered on 09/10/18 07:58; Admin Dose 4 MG; Start 09/03/18 at 16:00 Linezolid (Zyvox) 600 mg BID PO Last administered on 09/16/18 08:34; Admin Dose 600 MG; Start 09/11/18 at 09:00 Mupirocin (Bactroban) 1 applic BID TOP Last administered on 09/16/18 08:39; A dmin Dose 1 APPLIC; Start 09/10/18 at 14:00 Al Hydrox/Mg Hydrox/Simethicone (Mag-Al Plus) 30 ml Q4H PRN PO GASTROINTESTINAL UPSET; Start 09/10/18 at 18:00 Miscellaneous Information (*Order Clarification Bulletin) MEDICATION REQUIRES CLARIFICATI... Q8H XX ; Start 09/12/18 at 16:00 Heparin Sodium (Porcine) (Heparin (1000 Units/ml)) 4,000 unit AFTER DIALYSIS CATHETER Last administered on 09/14/18at 23:07; Admin Dose 4,700 UNIT; Start 09/13/18 at 14:30 Results Result Diagram: 09/14/182017 Results 24 hrs Laboratory Tests Test 09/15/18 18:11 09/16/18 08:32 09/16/18 12:31 09/16/18 17:39 Bedside Glucose 104 89 119 124 KOFI SWANN MD Sep 16, 2018 17:48
[2018-09-16] MEDS ORDERED: HEPARIN 1000 UNITS/ML 10 ML INJ CATHETER SCH (18:00)
[2018-09-16] MEDS ORDERED: ALBUMIN HUMAN 25% 50 ML IV PRN (18:00)
[2018-09-16] MEDS: DOCUSATE SODIUM 100 MG CAP PO PRN (19:11)
[2018-09-16 19:35] VITALS: BP 114/66; PULSE 91; RESP 20
[2018-09-17] MEDS: traMADol 50 MG TAB PO PRN ×5 (00:32→21:09)
[2018-09-17] MEDS: ACCU-CHEK XX SCH (02:00)
[2018-09-17 02:20] VITALS: BP 134/63; PULSE 92; RESP 18
[2018-09-17] MEDS: INSULIN ASPART [NOVOLOG] 3 ML PEN SC SCH ×4 (07:50→21:00)
[2018-09-17] MEDS ORDERED: HEPARIN 5,000 UNIT/0.5 ML VIAL ONE ×2 (08:20→20:26)
[2018-09-17] MEDS: LACTOBACILLUS RHAMNOSUS CAP PO SCH ×3 (09:00→21:09)
[2018-09-17] MEDS: ALLOPURINOL 100 MG TAB PO SCH (09:13)
[2018-09-17] MEDS: FUROSEMIDE 40 MG TAB PO SCH (09:14)
[2018-09-17] MEDS: ZYVOX 600 MG TAB PO SCH ×2 (09:14→21:09)
[2018-09-17] MEDS: FAMOTIDINE 20 MG TAB PO SCH (09:15)
[2018-09-17] MEDS: HEPARIN 5,000 UNIT/1 ML VIAL SC SCH ×2 (09:27→21:16)
[2018-09-17] MEDS: DOCUSATE SODIUM 100 MG CAP PO PRN (09:35)
[2018-09-17] MEDS: NYSTATIN 30 GM POWDER BTL TOP SCH ×2 (09:53→21:10)
[2018-09-17] MEDS: ARTIFICIAL TEARS 15 ML OPH BOTH EYES SCH ×4 (09:53→21:10)
[2018-09-17] MEDS: BALSAM PERU/CASTOR OIL 60 GM TUBE TOP SCH ×2 (09:53→21:10)
[2018-09-17] MEDS: DICLOFENAC SODIUM 1% GEL 100 GM TUBE TP SCH ×4 (09:53→21:10)
[2018-09-17] MEDS: MUPIROCIN 2% 22 GM OINT TOP SCH ×2 (09:54→21:00)
[2018-09-17 14:14] VITALS: BP 127/58; RESP 17
--- NOTE | 2018-09-17 14:54 | CONS ---
Date/Time of Note Date/Time of Note DATE: 09/17/18 TIME: 14:53 Consultation Date/Type/Reason Admit Date/Time Jul 23, 2018 at 16:13 Initial Consult Date Type of Consult SUBJECTIVE: No acute events overnight. Awake looks comfortable, no fevers INDWELLINGS: left chest Perm-A-Cath. MICROBIOLOGY: Urine culture on 08/03/2018 was positive for Klebsiella, enterococcus and Aerococcus abdominal umbilical drainage culture grew Corynebacterium group JK enterococcus and coagulase-negative staph species. ANTIMICROBIALS: The patient is on: 1. Zyvox 2. Topical Bactroban to umbilical cord area. PHYSICAL EXAMINATION: GENERAL: This is a morbidly obese, chronically ill-appearing, elderly woman who is alert, in no distress. HEENT: Head atraumatic, normocephalic. NECK: Supple. CHEST: Rise symmetrical. Breath sounds clear. HEART: S1, S2. ABDOMEN: Obese, bowel tones present, pain around umbilical area with foul odor, no drainage, no erythema. EXTREMITIES: Without cyanosis. ASSESSMENT: 1. Status post systemic inflammatory response syndrome. 2. Status post urinary tract infection. 3. End-stage renal disease. 4. Diabetes. 5. Hypertension. 6. History of Clostridium difficile colitis. 7. Resolving umbilical cellulitis. PLAN: The patient remains stable. Continue current antibiotics and pain management. Exam/Review of Systems Vital Signs Vitals Vital Signs Date Temp Pulse Resp B/P (MAP) Pulse Ox O2 O2 Flow FiO2 Time Delivery Rate 09/17/18 98.0 17 127/58 95 Room Air 14:14 (81) 09/17/18 92 02:20 09/15/18 2.0 08:00 Intake and Output 09/16/18 09/16/18 09/17/18 1515:00 23:00 07:00 IntakeIntake Total 640 ml 320 ml BalanceBalance 640 ml 320 ml Medications Medications Current Medications Acetaminophen (Tylenol Tab) 325 mg Q4H PRN PO MILD PAIN(1-3)OR ELEVATED TEMP Last administered on 08/14/18at 17:29; Admin Dose 325 MG; Start 07/20/18 at 23:00 Allopurinol (Zyloprim) 100 mg DAILY PO Last administered on 09/17/18at 09:13; Admin Dose 100 MG; Start 07/21/18 at 09:00 IV Flush (NS 3 ml) 3 ml PER PROTOCOL IV ; Start 07/20/18 at 23:00 Acetaminophen (Tylenol Tab) 650 mg Q6H PRN PO PAIN LEVEL 1-3 OR FEVER Last administered on 09/14/18at 10:51; Admin Dose 650 MG; Start 07/20/18 at 23:00 Acetaminophen (Tylenol Supp) 650 mg Q6H PRN SC PAIN LEVEL 1-3 OR FEVER; Start 07/20/18 at 23:00 Docusate Sodium (Colace) 100 mg Q12H PRN PO CONSTIPATION Last administered on 09/17/18at 09:35; Admin Dose 100 MG; Start 07/20/18 at 23:00 Bisacodyl (Dulcolax) 5 mg DAILY PRN PO CONSTIPATION Last administered on 09/16/18at 08:33; Admin Dose 5 MG; Start 07/20/18 at 23:00 Diagnostic Test (Pha) (Accu-Chek) 1 ea 02 XX Last administered on 09/02/18at 02:04; Admin Dose 1 EA; Start 07/21/18 at 02:00 Insulin Aspart (Novolog Insulin Pen) NOVOLOG *MILD* ALGORITHM WITH MEALS BEDTIME SC Last administered on 09/11/18at 08:36; Admin Dose 1 UNIT; Start 07/21/18 at 07:50 Ergocalciferol (Drisdol) 50,000 unit Lacy@0900 PO Last administered on 09/11/18at 11:31; Admin Dose 50,000 UNIT; Start 07/24/18 at 09:00 Miscellaneous Information 1 ea NOTE XX ; Start 07/20/18 at 23:00 Glucose (Glutose) 15 gm Q15M PRN PO DECREASED GLUCOSE; Start 07/20/18 at 23:00 Glucose (Glutose) 22.5 gm Q15M PRN PO DECREASED GLUCOSE; Start 07/20/18 at 23:00 Dextrose (D50w Syringe) 25 ml Q15M PRN IV DECREASED GLUCOSE; Start 07/20/18 at 23:00 Dextrose (D50w Syringe) 50 ml Q15M PRN IV DECREASED GLUCOSE; Start 07/20/18 at 23:00 Glucagon (Glucagen) 1 mg Q15M PRN IM DECREASED GLUCOSE; Start 07/20/18 at 23:0 0 Glucose (Glutose) 15 gm Q15M PRN BUCCAL DECREASED GLUCOSE; Start 07/20/18 at 23:00 Melatonin (Melatonin) 3 mg HS PRN PO INSOMNIA Last administered on 09/14/18 23:16; Admin Dose 3 MG; Start 07/20/18 at 23:00 Heparin Sodium (Porcine) 5,000 unit Q12 SC Last administered on 09/17/18 09:27; Admin Dose 5,000 UNIT; Start 07/21/18 at 21:00 Diclofenac Sodium (Voltaren 1% Gel) 2 gm QID TP Last administered on 09/17/18 13:11; Admin Dose 2 GM; Start 07/22/18 at 13:00 Guaifenesin/ Dextromethorphan (Robitussin Dm Liquid Cup) 10 ml Q4H PRN PO COUGH; Start 07/30/18 at 15:00 Sodium Chloride (NS) -To prime the dialy... DIRECTED FOR HD PRN IV HD; Start 07/31/18 at 18:00 Loratadine (Claritin) 10 mg DAILY PRN PO ALLERGIC REACTION Last administered on 08/07/18 12:48; Admin Dose 10 MG; Start 08/07/18 at 12:30 Hydralazine HCl (Apresoline) 10 mg Q6H PRN PO ELEVATED BLOOD PRESSURE Last ad ministered on 09/14/18 02:44; Admin Dose 10 MG; Start 08/08/18 at 04:30 Hydralazine HCl (Apresoline) 25 mg TID PO Last administered on 09/17/18 13:11; Admin Dose 25 MG; Start 08/08/18 at 13:00 Eye Lubricant (Artificial Tears Oph) 2 drop QID BOTH EYES Last administered on 09/17/18 13:11; Admin Dose 2 DROP; Start 08/09/18 at 11:00 Calcium Carbonate (Tums) 500 mg PRN PRN PO HEARTBURN Last administered on 09/04/18 04:18; Admin Dose 500 MG; Start 08/09/18 at 14:30 Furosemide (Lasix) 40 mg DAILY PO Last administered on 09/17/18 09:14; Admin Dose 40 MG; Start 08/17/18 at 15:00 Famotidine (Pepcid) 20 mg DAILY PO Last administered on 09/17/18 09:15; Admin Dose 20 MG; Start 08/22/18 at 09:00 Loperamide HCl (Imodium Cap) 2 mg QID PRN PO DIARRHEA; Start 08/21/18 at 16:00 Lactobacillus Acidophilus/ Rhamnosus (Culturelle) 1 cap BID PO Last administered on 09/06/18at 21:04; Admin Dose 1 CAP; Start 08/21/18 at 21:00 Nystatin (Nystatin Powder) 1 applic BID TOP Last administered on 09/17/18at 09:53; Admin Dose 1 APPLIC; Start 08/28/18 at 21:00 Tramadol HCl (Ultram) 100 mg Q6H PRN PO PAIN LEVEL 6-10 Last administered on 09/17/18at 13:00; Admin Dose 100 MG; Start 09/01/18 at 02:00 Ondansetron HCl (Zofran Tab) 4 mg Q6H PRN PO NAUSEA AND/OR VOMITING Last administered on 09/10/18at 07:58; Admin Dose 4 MG; Start 09/03/18 at 16:00 Linezolid (Zyvox) 600 mg BID PO Last administered on 09/17/18at 09:14; Admin Dose 600 MG; Start 09/11/18 at 09:00 Mupirocin (Bactroban) 1 applic BID TOP Last administered on 09/17/18at 09:54; Admin Dose 1 APPLIC; Start 09/10/18 at 14:00 Al Hydrox/Mg Hydrox/Simethicone (Mag-Al Plus) 30 ml Q4H PRN PO GASTROINTESTINAL UPSET; Start 09/10/18 at 18:00 Miscellaneous Information (*Order Clarification Bulletin) MEDICATION REQUIRES CLARIFICATI... Q8H XX ; Start 09/12/18 at 16:00 Heparin Sodium (Porcine) (Heparin (1000 Units/ml)) 4,000 unit AFTER DIALYSIS CATHETER Last administered on 09/14/18at 23:07; Admin Dose 4,700 UNIT; Start 09/13/18 at 14:30 Heparin Sodium (Porcine) (Heparin (1000 Units/ml)) 4,000 unit AFTER DIALYSIS CATHETER ; Start 09/16/18 at 18:00 Albumin Human 50 ml @ 100 mls/hr WITH DIALYSIS PRN IV SBP<90; Start 09/16/18 at 18:00 Results Result Diagram: 09/14/182017 Results 24 hrs Laboratory Tests Test 09/16/18 17:39 09/16/18 20:57 09/17/18 07:57 09/17/18 12:52 Bedside Glucose 124 169 122 124 SKYLER LUKE Sep 17, 2018 14:54
--- NOTE | 2018-09-17 18:36 | PN ---
Date/Time of Note Date/Time of Note DATE: 09/17/18 TIME: 18:34 Assessment/Plan VTE Prophylaxis Risk score (from Nsg)>0 risk: 5 SCD applied (from Ns): Yes SCD contraindicated: other Pharmacological prophylaxis: other Lines/Catheters IV Catheter Type (from Nrsg): Perma cath Urinary Cath still in place: No Reason Cath still needed: other (indicate) Assessment/Plan Hospital Course 1. . ckd iii-iv now with the complications of hyperkalemia, patient has been refusing Kayexalate V[place] has also been refusing dialysis, patient was explained the risks and consequences and patient completely understands the risks and consequences, now agreed, on and off Hd once a week 2. c diff hx 3. Chronic kidney disease, 4. Morbid obesity. 5. Diabetes. 6. Hypertension, 7. Gout.hx 8. Neuropathy. 9. History of congestive heart failure. 10 weakness 11 deconditioning 13 Left shoulde pain, TTP ? Frozen shoulder , shoulder impingement 14 s/p Fall ? AMS [facility] due to UTI 15 uti klebsiella and enterococcus hx plan hd placement issue Subjective 24 Hr Interval Summary Respiratory: no complaints Cardiovascular: no complaints Musculoskeletal: other (bodyache) Exam/Review of Systems Vital Signs Vitals Vital Signs Date Temp Pulse Resp B/P (MAP) Pulse Ox O2 O2 Flow FiO2 Time Delivery Rate 09/17/18 98.0 17 127/58 95 Room Air 14:14 (81) 09/17/18 92 02:20 09/15/18 2.0 08:00 Intake and Output 09/16/18 09/16/18 09/17/18 1414:59 22:59 06:59 IntakeIntake Total 640 ml 320 ml BalanceBalance 640 ml 320 ml Exam Respiratory: clear to auscultation Cardiovascular: regular rate and rhythm Medications Medications Current Medications Acetaminophen (Tylenol Tab) 325 mg Q4H PRN PO MILD PAIN(1-3)OR ELEVATED TEMP L ast administered on 08/14/18at 17:29; Admin Dose 325 MG; Start 07/20/18 at 23:00 Allopurinol (Zyloprim) 100 mg DAILY PO Last administered on 09/17/18at 09:13; Admin Dose 100 MG; Start 07/21/18 at 09:00 IV Flush (NS 3 ml) 3 ml PER PROTOCOL IV ; Start 07/20/18 at 23:00 Acetaminophen (Tylenol Tab) 650 mg Q6H PRN PO PAIN LEVEL 1-3 OR FEVER Last administered on 09/14/18at 10:51; Admin Dose 650 MG; Start 07/20/18 at 23:00 Acetaminophen (Tylenol Supp) 650 mg Q6H PRN AL PAIN LEVEL 1-3 OR FEVER; Start 07/20/18 at 23:00 Docusate Sodium (Colace) 100 mg Q12H PRN PO CONSTIPATION Last administered on 09/17/18at 09:35; Admin Dose 100 MG; Start 07/20/18 at 23:00 Bisacodyl (Dulcolax) 5 mg DAILY PRN PO CONSTIPATION Last administered on 09/16/18at 08:33; Admin Dose 5 MG; Start 07/20/18 at 23:00 Diagnostic Test (Pha) (Accu-Chek) 1 ea 02 XX Last administered on 09/02/18at 02:04; Admin Dose 1 EA; Start 07/21/18 at 02:00 Insulin Aspart (Novolog Insulin Pen) NOVOLOG *MILD* ALGORITHM WITH MEALS BEDTIME SC Last administered on 09/11/18at 08:36; Admin Dose 1 UNIT; Start 07/21/18 at 07:50 Ergocalciferol (Drisdol) 50,000 unit Lacy@0900 PO Last administered on 09/11/18at 11:31; Admin Dose 50,000 UNIT; Start 07/24/18 at 09:00 Miscellaneous Information 1 ea NOTE XX ; Start 07/20/18 at 23:00 Glucose (Glutose) 15 gm Q15M PRN PO DECREASED GLUCOSE; Start 07/20/18 at 23:00 Glucose (Glutose) 22.5 gm Q15M PRN PO DECREASED GLUCOSE; Start 07/20/18 at 23:00 Dextrose (D50w Syringe) 25 ml Q15M PRN IV DECREASED GLUCOSE; Start 07/20/18 at 23:00 Dextrose (D50w Syringe) 50 ml Q15M PRN IV DECREASED GLUCOSE; Start 07/20/18 at 23:00 Glucagon (Glucagen) 1 mg Q15M PRN IM DECREASED GLUCOSE; Start 07/20/18 at 23:00 Glucose (Glutose) 15 gm Q15M PRN BUCCAL DECREASED GLUCOSE; Start 07/20/18 at 23:00 Melatonin (Melatonin) 3 mg HS PRN PO INSOMNIA Last administered on 09/14/18 23:16; Admin Dose 3 MG; Start 07/20/18 at 23:00 Heparin Sodium (Porcine) 5,000 unit Q12 SC Last administered on 09/17/18 09:27; Admin Dose 5,000 UNIT; Start 07/21/18 at 21:00 Diclofenac Sodium (Voltaren 1% Gel) 2 gm QID TP Last administered on 09/17/18 17:44; Admin Dose 2 GM; Start 07/22/18 at 13:00 Guaifenesin/ Dextromethorphan (Robitussin Dm Liquid Cup) 10 ml Q4H PRN PO COUGH; Start 07/30/18 at 15:00 Sodium Chloride (NS) -To prime the dialy... DIRECTED FOR HD PRN IV HD; Start 07/31/18 at 18:00 Loratadine (Claritin) 10 mg DAILY PRN PO ALLERGIC REACTION Last administered on 08/07/18 12:48; Admin Dose 10 MG; Start 08/07/18 at 12:30 Hydralazine HCl (Apresoline) 10 mg Q6H PRN PO ELEVATED BLOOD PRESSURE Last administered on 09/14/18 02:44; Admin Dose 10 MG; Start 08/08/18 at 04:30 Hydralazine HCl (Apresoline) 25 mg TID PO Last administered on 09/17/18 13:11; Admin Dose 25 MG; Start 08/08/18 at 13:00 Eye Lubricant (Artificial Tears Oph) 2 drop QID BOTH EYES Last administered on 09/17/18 17:44; Admin Dose 2 DROP; Start 08/09/18 at 11:00 Calcium Carbonate (Tums) 500 mg PRN PRN PO HEARTBURN Last administered on 09/04/18 04:18; Admin Dose 500 MG; Start 08/09/18 at 14:30 Furosemide (Lasix) 40 mg DAILY PO Last administered on 09/17/18 09:14; Admin Dose 40 MG; Start 08/17/18 at 15:00 Famotidine (Pepcid) 20 mg DAILY PO Last administered on 09/17/18 09:15; Admin Dose 20 MG; Start 08/22/18 at 09:00 Loperamide HCl (Imodium Cap) 2 mg QID PRN PO DIARRHEA; Start 08/21/18 at 16:00 Lactobacillus Acidophilus/ Rhamnosus (Culturelle) 1 cap BID PO Last administered on 09/06/18at 21:04; Admin Dose 1 CAP; Start 08/21/18 at 21:00 Nystatin (Nystatin Powder) 1 applic BID TOP Last administered on 09/17/18at 09:53; Admin Dose 1 APPLIC; Start 08/28/18 at 21:00 Tramadol HCl (Ultram) 100 mg Q6H PRN PO PAIN LEVEL 6-10 Last administered on 09/17/18 16:28; Admin Dose 100 MG; Start 09/01/18 at 02:00 Ondansetron HCl (Zofran Tab) 4 mg Q6H PRN PO NAUSEA AND/OR VOMITING Last administered on 09/10/18at 07:58; Admin Dose 4 MG; Start 09/03/18 at 16:00 Linezolid (Zyvox) 600 mg BID PO Last administered on 09/17/18at 09:14; Admin Dose 600 MG; Start 09/11/18 at 09:00 Mupirocin (Bactroban) 1 applic BID TOP Last administered on 09/17/18at 09:54; Admin Dose 1 APPLIC; Start 09/10/18 at 14:00 Al Hydrox/Mg Hydrox/Simethicone (Mag-Al Plus) 30 ml Q4H PRN PO GASTROINTESTINAL UPSET; Start 09/10/18 at 18:00 Miscellaneous Information (*Order Clarification Bulletin) MEDICATION REQUIRES CLARIFICATI... Q8H XX ; Start 09/12/18 at 16:00 Heparin Sodium (Porcine) (Heparin (1000 Units/ml)) 4,000 unit AFTER DIALYSIS CATHETER Last administered on 09/14/18at 23:07; Admin Dose 4,700 UNIT; Start 09/13/18 at 14:30 Heparin Sodium (Porcine) (Heparin (1000 Units/ml)) 4,000 unit AFTER DIALYSIS CATHETER ; Start 09/16/18 at 18:00 Albumin Human 50 ml @ 100 mls/hr WITH DIALYSIS PRN IV SBP<90; Start 09/16/18 at 18:00 Results Result Diagram: 09/14/182017 Results 24 hrs Laboratory Tests Test 09/16/18 20:57 09/17/18 07:57 09/17/18 12:52 09/17/18 17:42 Bedside Glucose 169 122 124 143 BRIAN ROBLEDO MD Sep 17, 2018 18:36
[2018-09-17 19:45] VITALS: BP 131/68; PULSE 85; RESP 18
[2018-09-17] MEDS ORDERED: VITAMIN A & D 5 GM OINT PACKET TOP ONE (20:28)
[2018-09-18] VITALS (19 sets, daily range): BP systolic 101–158; BP diastolic 64–91; PULSE 67–95; RESP 18–20
[2018-09-18] MEDS: traMADol 50 MG TAB PO PRN ×4 (01:09→23:05)
[2018-09-18] MEDS: ACCU-CHEK XX SCH (02:00)
[2018-09-18] MEDS: INSULIN ASPART [NOVOLOG] 3 ML PEN SC SCH ×4 (08:30→21:00)
[2018-09-18] MEDS ORDERED: HEPARIN 5,000 UNIT/0.5 ML VIAL ONE ×2 (08:35→20:36)
[2018-09-18] MEDS: HEPARIN 5,000 UNIT/1 ML VIAL SC SCH ×2 (08:38→22:53)
[2018-09-18] MEDS: ALLOPURINOL 100 MG TAB PO SCH (08:40)
[2018-09-18] MEDS: FUROSEMIDE 40 MG TAB PO SCH (08:40)
[2018-09-18] MEDS: FAMOTIDINE 20 MG TAB PO SCH (08:40)
[2018-09-18] MEDS: ZYVOX 600 MG TAB PO SCH (08:43)
[2018-09-18] MEDS: LACTOBACILLUS RHAMNOSUS CAP PO SCH ×2 (09:00→20:06)
[2018-09-18] MEDS: BALSAM PERU/CASTOR OIL 60 GM TUBE TOP SCH ×2 (09:00→20:07)
[2018-09-18] MEDS: ARTIFICIAL TEARS 15 ML OPH BOTH EYES SCH ×4 (09:00→21:00)
[2018-09-18] MEDS: MUPIROCIN 2% 22 GM OINT TOP SCH ×2 (09:00→21:00)
[2018-09-18] MEDS: DICLOFENAC SODIUM 1% GEL 100 GM TUBE TP SCH ×4 (09:00→21:00)
[2018-09-18] MEDS: NYSTATIN 30 GM POWDER BTL TOP SCH ×2 (09:00→20:07)
[2018-09-18] MEDS: ERGOCALCIFEROL 50,000 UNIT CAP PO SCH (09:00)
--- NOTE | 2018-09-18 10:34 | CONS ---
Date/Time of Note Date/Time of Note DATE: 09/18/18 TIME: 10:32 Consultation Date/Type/Reason Admit Date/Time Jul 23, 2018 at 16:13 Initial Consult Date Type of Consult SUBJECTIVE: Patient is awake looks comfortable, no fevers. VS: stable T: 98.2 LABS reviewed. INDWELLINGS: left chest Perm-A-Cath. MICROBIOLOGY: Urine culture on 08/03/2018 was positive for Klebsiella, enterococcus and Aerococcus abdominal umbilical drainage culture grew Corynebacterium group JK enterococcus and coagulase-negative staph species. ANTIMICROBIALS: The patient is on: 1. Zyvox 2. Topical Bactroban to umbilical cord area. PHYSICAL EXAMINATION: GENERAL: This is a morbidly obese, chronically ill-appearing, elderly woman who is alert, in no distress. HEENT: Head atraumatic, normocephalic. NECK: Supple. CHEST: Rise symmetrical. Breath sounds clear. HEART: S1, S2. ABDOMEN: Obese, bowel tones present, pain around umbilical area with foul odor, no drainage, no erythema. EXTREMITIES: Without cyanosis. ASSESSMENT: 1. Status post systemic inflammatory response syndrome. 2. Status post urinary tract infection. 3. End-stage renal disease. 4. Diabetes. 5. Hypertension. 6. History of Clostridium difficile colitis. 7. Resolving umbilical cellulitis. PLAN: The patient remains stable. Continue current antibiotics and pain management. Exam/Review of Systems Vital Signs Vitals Vital Signs Date Temp Pulse Resp B/P (MAP) Pulse Ox O2 O2 Flow FiO2 Time Delivery Rate 09/18/18 98.2 67 18 131/90 98 Room Air 08:55 (104) 09/15/18 2.0 08:00 Intake and Output 09/17/18 09/17/18 09/18/18 1515:00 23:00 07:00 IntakeIntake Total 520 ml 200 ml BalanceBalance 520 ml 200 ml Medications Medications Current Medications Acetaminophen (Tylenol Tab) 325 mg Q4H PRN PO MILD PAIN(1-3)OR ELEVATED TEMP Last administered on 08/14/18at 17:29; Admin Dose 325 MG; Start 07/20/18 at 23:00 Allopurinol (Zyloprim) 100 mg DAILY PO Last administered on 09/18/18at 08:40; Admin Dose 100 MG; Start 07/21/18 at 09:00 IV Flush (NS 3 ml) 3 ml PER PROTOCOL IV ; Start 07/20/18 at 23:00 Acetaminophen (Tylenol Tab) 650 mg Q6H PRN PO PAIN LEVEL 1-3 OR FEVER Last administered on 09/14/18at 10:51; Admin Dose 650 MG; Start 07/20/18 at 23:00 Acetaminophen (Tylenol Supp) 650 mg Q6H PRN [place] PAIN LEVEL 1-3 OR FEVER; Start 07/20/18 at 23:00 Docusate Sodium (Colace) 100 mg Q12H PRN PO CONSTIPATION Last administered on 09/17/18at 09:35; Admin Dose 100 MG; Start 07/20/18 at 23:00 Bisacodyl (Dulcolax) 5 mg DAILY PRN PO CONSTIPATION Last administered on 09/16/18at 08:33; Admin Dose 5 MG; Start 07/20/18 at 23:00 Diagnostic Test (Pha) (Accu-Chek) 1 ea 02 XX Last administered on 09/02/18at 02:04; Admin Dose 1 EA; Start 07/21/18 at 02:00 Insulin Aspart (Novolog Insulin Pen) NOVOLOG *MILD* ALGORITHM WITH MEALS BEDTIME SC Last administered on 09/11/18at 08:36; Admin Dose 1 UNIT; Start 07/21/18 at 07:50 Ergocalciferol (Drisdol) 50,000 unit Lacy@0900 PO Last administered on 09/11/18at 11:31; Admin Dose 50,000 UNIT; Start 07/24/18 at 09:00 Miscellaneous Information 1 ea NOTE XX ; Start 07/20/18 at 23:00 Glucose (Glutose) 15 gm Q15M PRN PO DECREASED GLUCOSE; Start 07/20/18 at 23:00 Glucose (Glutose) 22.5 gm Q15M PRN PO DECREASED GLUCOSE; Start 07/20/18 at 23:00 Dextrose (D50w Syringe) 25 ml Q15M PRN IV DECREASED GLUCOSE; Start 07/20/18 at 23:00 Dextrose (D50w Syringe) 50 ml Q15M PRN IV DECREASED GLUCOSE; Start 07/20/18 at 23:00 Glucagon (Glucagen) 1 mg Q15M PRN IM DECREASED GLUCOSE; Start 07/20/18 at 23:00 Glucose (Glutose) 15 gm Q15M PRN BUCCAL DECREASED GLUCOSE; Start 07/20/18 at 23:00 Melatonin (Melatonin) 3 mg HS PRN PO INSOMNIA Last administered on 09/14/18 23:16; Admin Dose 3 MG; Start 07/20/18 at 23:00 Heparin Sodium (Porcine) 5,000 unit Q12 SC Last administered on 09/18/18 08:38; Admin Dose 5,000 UNIT; Start 07/21/18 at 21:00 Diclofenac Sodium (Voltaren 1% Gel) 2 gm QID TP Last administered on 09/17/18 21:10; Admin Dose 2 GM; Start 07/22/18 at 13:00 Guaifenesin/ Dextromethorphan (Robitussin Dm Liquid Cup) 10 ml Q4H PRN PO COUGH; Start 07/30/18 at 15:00 Sodium Chloride (NS) -To prime the dialy... DIRECTED FOR HD PRN IV HD; Start 07/31/18 at 18:00 Loratadine (Claritin) 10 mg DAILY PRN PO ALLERGIC REACTION Last administered on 08/07/18 12:48; Admin Dose 10 MG; Start 08/07/18 at 12:30 Hydralazine HCl (Apresoline) 10 mg Q6H PRN PO ELEVATED BLOOD PRESSURE Last administered on 09/14/18 02:44; Admin Dose 10 MG; Start 08/08/18 at 04:30 Hydralazine HCl (Apresoline) 25 mg TID PO Last administered on 09/18/18 08:41; Admin Dose 25 MG; Start 08/08/18 at 13:00 Eye Lubricant (Artificial Tears Oph) 2 drop QID BOTH EYES Last administered on 09/17/18 21:10; Admin Dose 2 DROP; Start 08/09/18 at 11:00 Calcium Carbonate (Tums) 500 mg PRN PRN PO HEARTBURN Last administered on 09/04/18 04:18; Admin Dose 500 MG; Start 08/09/18 at 14:30 Furosemide (Lasix) 40 mg DAILY PO Last administered on 09/18/18 08:40; Admin Dose 40 MG; Start 08/17/18 at 15:00 Famotidine (Pepcid) 20 mg DAILY PO Last administered on 09/18/18 08:40; Admin Dose 20 MG; Start 08/22/18 at 09:00 Loperamide HCl (Imodium Cap) 2 mg QID PRN PO DIARRHEA; Start 08/21/18 at 16:00 Lactobacillus Acidophilus/ Rhamnosus (Culturelle) 1 cap BID PO Last administered on 09/17/18at 21:09; Admin Dose 1 CAP; Start 08/21/18 at 21:00 Nystatin (Nystatin Powder) 1 applic BID TOP Last administered on 09/17/18at 21:10; Admin Dose 1 APPLIC; Start 08/28/18 at 21:00 Tramadol HCl (Ultram) 100 mg Q6H PRN PO PAIN LEVEL 6-10 Last administered on 09/18/18at 07:46; Admin Dose 100 MG; Start 09/01/18 at 02:00 Ondansetron HCl (Zofran Tab) 4 mg Q6H PRN PO NAUSEA AND/OR VOMITING Last administered on 09/10/18at 07:58; Admin Dose 4 MG; Start 09/03/18 at 16:00 Linezolid (Zyvox) 600 mg BID PO Last administered on 09/18/18at 08:43; Admin Dose 600 MG; Start 09/11/18 at 09:00 Mupirocin (Bactroban) 1 applic BID TOP Last administered on 09/17/18at 09:54; Admin Dose 1 APPLIC; Start 09/10/18 at 14:00 Al Hydrox/Mg Hydrox/Simethicone (Mag-Al Plus) 30 ml Q4H PRN PO GASTROINTESTINAL UPSET; Start 09/10/18 at 18:00 Miscellaneous Information (*Order Clarification Bulletin) MEDICATION REQUIRES CLARIFICATI... Q8H XX ; Start 09/12/18 at 16:00 Heparin Sodium (Porcine) (Heparin (1000 Units/ml)) 4,000 unit AFTER DIALYSIS CATHETER Last administered on 09/14/18at 23:07; Admin Dose 4,700 UNIT; Start 09/13/18 at 14:30 Heparin Sodium (Porcine) (Heparin (1000 Units/ml)) 4,000 unit AFTER DIALYSIS CATHETER ; Start 09/16/18 at 18:00 Albumin Human 50 ml @ 100 mls/hr WITH DIALYSIS PRN IV SBP<90; Start 09/16/18 at 18:00 Results Result Diagram: 12/12/18 2018 Results 24 hrs Laboratory Tests Test 09/17/18 12:52 09/17/18 17:42 09/17/18 21:14 09/18/18 08:25 Bedside Glucose 124 143 160 149 SKYLER LUKE Sep 18, 2018 10:34
--- NOTE | 2018-09-18 17:46 | PN ---
Date/Time of Note Date/Time of Note DATE: 09/18/18 TIME: 17:45 Assessment/Plan VTE Prophylaxis Risk score (from Nsg)>0 risk: 8 SCD applied (from Ns): Yes SCD contraindicated: other Pharmacological prophylaxis: other Lines/Catheters IV Catheter Type (from Nrsg): permacath Urinary Cath still in place: No Assessment/Plan Hospital Course 1. . ckd iii-iv now with the complications of hyperkalemia, patient has been refusing Kayexalate [place] has also been refusing dialysis, patient was explained the risks and consequences and patient completely understands the risks and consequences, now agreed, on and off Hd once a week 2. c diff hx 3. Chronic kidney disease, 4. Morbid obesity. 5. Diabetes. 6. Hypertension, 7. Gout.hx 8. Neuropathy. 9. History of congestive heart failure. 10 weakness 11 deconditioning 13 Left shoulde pain, TTP ? Frozen shoulder , shoulder impingement 14 s/p Fall ? AMS confusion likley due to UTI 15 uti klebsiella and enterococcus hx plan hd placement issue labs Subjective 24 Hr Interval Summary Subjective hx not possible: other (refusing labs and hd) Exam/Review of Systems Vital Signs Vitals Vital Signs Date Temp Pulse Resp B/P (MAP) Pulse Ox O2 O2 Flow FiO2 Time Delivery Rate 09/18/18 98.0 88 20 141/72 98 13:19 (95) 09/18/18 Room Air 08:55 09/15/18 2.0 08:00 Intake and Output 09/17/18 09/17/18 09/18/18 1515:00 23:00 07:00 IntakeIntake Total 520 ml 200 ml BalanceBalance 520 ml 200 ml Exam Neck: supple Respiratory: clear to auscultation Cardiovascular: regular rate and rhythm Gastrointestinal: soft Medications Medications Current Medications Acetaminophen (Tylenol Tab) 325 mg Q4H PRN PO MILD PAIN(1-3)OR ELEVATED TEMP Last administered on 08/14/18at 17:29; Admin Dose 325 MG; Start 07/20/18 at 23:00 Allopurinol (Zyloprim) 100 mg DAILY PO Last administered on 09/18/18at 08:40; Admin Dose 100 MG; Start 07/21/18 at 09:00 IV Flush (NS 3 ml) 3 ml PER PROTOCOL IV ; Start 07/20/18 at 23:00 Acetaminophen (Tylenol Tab) 650 mg Q6H PRN PO PAIN LEVEL 1-3 OR FEVER Last administered on 09/14/18at 10:51; Admin Dose 650 MG; Start 07/20/18 at 23:00 Acetaminophen (Tylenol Supp) 650 mg Q6H PRN [place] PAIN LEVEL 1-3 OR FEVER; Start 07/20/18 at 23:00 Docusate Sodium (Colace) 100 mg Q12H PRN PO CONSTIPATION Last administered on 09/17/18at 09:35; Admin Dose 100 MG; Start 07/20/18 at 23:00 Bisacodyl (Dulcolax) 5 mg DAILY PRN PO CONSTIPATION Last administered on 09/16/18at 08:33; Admin Dose 5 MG; Start 07/20/18 at 23:00 Diagnostic Test (Pha) (Accu-Chek) 1 ea 02 XX Last administered on 09/02/18at 02:04; Admin Dose 1 EA; Start 07/21/18 at 02:00 Insulin Aspart (Novolog Insulin Pen) NOVOLOG *MILD* ALGORITHM WITH MEALS BEDTIME SC Last administered on 09/11/18at 08:36; Admin Dose 1 UNIT; Start 07/21/18 at 07:50 Ergocalciferol (Drisdol) 50,000 unit Lacy@0900 PO Last administered on 09/11/18at 11:31; Admin Dose 50,000 UNIT; Start 07/24/18 at 09:00 Miscellaneous Information 1 ea NOTE XX ; Start 07/20/18 at 23:00 Glucose (Glutose) 15 gm Q15M PRN PO DECREASED GLUCOSE; Start 07/20/18 at 23:00 Glucose (Glutose) 22.5 gm Q15M PRN PO DECREASED GLUCOSE; Start 07/20/18 at 23:00 Dextrose (D50w Syringe) 25 ml Q15M PRN IV DECREASED GLUCOSE; Start 07/20/18 at 23:00 Dextrose (D50w Syringe) 50 ml Q15M PRN IV DECREASED GLUCOSE; Start 07/20/18 at 23:00 Glucagon (Glucagen) 1 mg Q15M PRN IM DECREASED GLUCOSE; Start 07/20/18 at 23:00 Glucose (Glutose) 15 gm Q15M PRN BUCCAL DECREASED GLUCOSE; Start 07/20/18 at 23:00 Melatonin (Melatonin) 3 mg HS PRN PO INSOMNIA Last administered on 09/14/18at 23:16; Admin Dose 3 MG; Start 07/20/18 at 23:00 Heparin Sodium (Porcine) 5,000 unit Q12 SC Last administered on 09/18/18at 08:38; Admin Dose 5,000 UNIT; Start 07/21/18 at 21:00 Diclofenac Sodium (Voltaren 1% Gel) 2 gm QID TP Last administered on 09/17/18at 21:10; Admin Dose 2 GM; Start 07/22/18 at 13:00 Guaifenesin/ Dextromethorphan (Robitussin Dm Liquid Cup) 10 ml Q4H PRN PO COUGH; Start 07/30/18 at 15:00 Sodium Chloride (NS) -To prime the dialy... DIRECTED FOR HD PRN IV HD; Start 07/31/18 at 18:00 Loratadine (Claritin) 10 mg DAILY PRN PO ALLERGIC REACTION Last administered on 08/07/18at 12:48; Admin Dose 10 MG; Start 08/07/18 at 12:30 Hydralazine HCl (Apresoline) 10 mg Q6H PRN PO ELEVATED BLOOD PRESSURE Last administered on 09/14/18at 02:44; Admin Dose 10 MG; Start 08/08/18 at 04:30 Hydralazine HCl (Apresoline) 25 mg TID PO Last administered on 09/18/18at 13:53; Admin Dose 25 MG; Start 08/08/18 at 13:00 Eye Lubricant (Artificial Tears Oph) 2 drop QID BOTH EYES Last administered on 09/17/18at 21:10; Admin Dose 2 DROP; Start 08/09/18 at 11:00 Calcium Carbonate (Tums) 500 mg PRN PRN PO HEARTBURN Last administered on 09/04/18 04:18; Admin Dose 500 MG; Start 08/09/18 at 14:30 Famotidine (Pepcid) 20 mg DAILY PO Last administered on 09/18/18at 08:40; Admin Dose 20 MG; Start 08/22/18 at 09:00 Loperamide HCl (Imodium Cap) 2 mg QID PRN PO DIARRHEA; Start 08/21/18 at 16:00 Lactobacillus Acidophilus/ Rhamnosus (Culturelle) 1 cap BID PO Last ad ministered on 09/17/18at 21:09; Admin Dose 1 CAP; Start 08/21/18 at 21:00 Nystatin (Nystatin Powder) 1 applic BID TOP Last administered on 09/17/18at 21:10; Admin Dose 1 APPLIC; Start 08/28/18 at 21:00 Tramadol HCl (Ultram) 100 mg Q6H PRN PO PAIN LEVEL 6-10 Last administered on 09/18/18 13:48; Admin Dose 100 MG; Start 09/01/18 at 02:00 Ondansetron HCl (Zofran Tab) 4 mg Q6H PRN PO NAUSEA AND/OR VOMITING Last administered on 09/10/18 07:58; Admin Dose 4 MG; Start 09/03/18 at 16:00 Linezolid (Zyvox) 600 mg BID PO Last administered on 09/18/18 08:43; Admin Dose 600 MG; Start 09/11/18 at 09:00 Mupirocin (Bactroban) 1 applic BID TOP Last administered on 09/17/18at 09:54; Admin Dose 1 APPLIC; Start 09/10/18 at 14:00 Al Hydrox/Mg Hydrox/Simethicone (Mag-Al Plus) 30 ml Q4H PRN PO GASTROINTESTINAL UPSET; Start 09/10/18 at 18:00 Miscellaneous Information (*Order Clarification Bulletin) MEDICATION REQUIRES CLARIFICATI... Q8H XX ; Start 09/12/18 at 16:00 Heparin Sodium (Porcine) (Heparin (1000 Units/ml)) 4,000 unit AFTER DIALYSIS CATHETER ; Start 09/16/18 at 18:00 Albumin Human 50 ml @ 100 mls/hr WITH DIALYSIS PRN IV SBP<90; Start 09/16/18 at 18:00 Furosemide (Lasix) 40 mg DAILY PO ; Start 09/19/18 at 09:00 Results Result Diagram: 09/14/182017 Results 24 hrs Laboratory Tests Test 09/17/18 21:14 09/18/18 08:25 09/18/18 12:28 Bedside Glucose 160 149 145 BRIAN ROBLEDO MD Sep 18, 2018 17:46
[2018-09-18] MEDS ORDERED: VITAMIN A & D 5 GM OINT PACKET TOP ONE (23:11)
[2018-09-19] MEDS: ACCU-CHEK XX SCH (01:01)
[2018-09-19] MEDS: traMADol 50 MG TAB PO PRN ×3 (05:15→20:55)
[2018-09-19] MEDS: INSULIN ASPART [NOVOLOG] 3 ML PEN SC SCH ×4 (08:00→21:00)
[2018-09-19] MEDS ORDERED: HEPARIN 5,000 UNIT/0.5 ML VIAL ONE (08:17)
[2018-09-19] MEDS ORDERED: FUROSEMIDE 40 MG TAB PO SCH (09:00)
[2018-09-19] MEDS: DICLOFENAC SODIUM 1% GEL 100 GM TUBE TP SCH ×4 (09:00→21:38)
[2018-09-19] MEDS: NYSTATIN 30 GM POWDER BTL TOP SCH ×2 (09:00→21:39)
[2018-09-19] MEDS: MUPIROCIN 2% 22 GM OINT TOP SCH ×2 (09:00→21:38)
[2018-09-19] MEDS: BALSAM PERU/CASTOR OIL 60 GM TUBE TOP SCH ×2 (09:00→21:40)
[2018-09-19] MEDS: ARTIFICIAL TEARS 15 ML OPH BOTH EYES SCH ×4 (09:00→21:39)
[2018-09-19] MEDS: LACTOBACILLUS RHAMNOSUS CAP PO SCH ×2 (09:00→21:00)
[2018-09-19 09:07] VITALS: BP 122/75
[2018-09-19] MEDS: HEPARIN 5,000 UNIT/1 ML VIAL SC SCH ×2 (09:10→21:44)
[2018-09-19] MEDS: ALLOPURINOL 100 MG TAB PO SCH (09:10)
[2018-09-19] MEDS: FAMOTIDINE 20 MG TAB PO SCH (09:10)
--- NOTE | 2018-09-19 15:16 | CONS ---
Date/Time of Note Date/Time of Note DATE: 09/19/18 TIME: 15:15 Assessment/Plan Assessment/Plan Chief Complaint/Hosp Course SUBJECTIVE: No acute events overnight. no fevers INDWELLINGS: left chest Perm-A-Cath. MICROBIOLOGY: Urine culture on 08/03/2018 was positive for Klebsiella, enterococcus and Aerococcus abdominal umbilical drainage culture grew Corynebacterium group JK enterococcus and coagulase-negative staph species. PHYSICAL EXAMINATION: GENERAL: This is a morbidly obese, chronically ill-appearing, elderly woman who is alert, in no distress. HEENT: Head atraumatic, normocephalic. NECK: Supple. CHEST: Rise symmetrical. Breath sounds clear. HEART: S1, S2. ABDOMEN: Obese, bowel tones present, pain around umbilical area with foul odor, no drainage, no erythema. EXTREMITIES: Without cyanosis. ASSESSMENT: 1. Status post systemic inflammatory response syndrome. 2. Status post urinary tract infection. 3. End-stage renal disease. 4. Diabetes. 5. Hypertension. 6. History of Clostridium difficile colitis. 7. Resolving umbilical cellulitis. PLAN: The patient remains stable. Completed antibiotics, will monitor Consultation Date/Type/Reason Admit Date/Time Jul 23, 2018 at 16:13 Initial Consult Date Type of Consult id Exam/Review of Systems Vital Signs Vitals Vital Signs Date Temp Pulse Resp B/P (MAP) Pulse Ox O2 O2 Flow FiO2 Time Delivery Rate 09/19/18 122/75 09:07 (91) 09/18/18 83 22:50 09/18/18 98.6 19 96 20:45 09/18/18 Room Air 19:07 09/15/18 2.0 08:00 Intake and Output 09/18/18 09/18/18 09/19/18 1515:00 23:00 07:00 IntakeIntake Total 440 ml 420 ml OutputOutput Total 2100 ml BalanceBalance 440 ml -1680 ml Medications Medications Current Medications Acetaminophen (Tylenol Tab) 325 mg Q4H PRN PO MILD PAIN(1-3)OR ELEVATED TEMP Last administered on 08/14/18at 17:29; Admin Dose 325 MG; Start 07/20/18 at 23:00 Allopurinol (Zyloprim) 100 mg DAILY PO Last administered on 09/19/18at 09:10; A dmin Dose 100 MG; Start 07/21/18 at 09:00 IV Flush (NS 3 ml) 3 ml PER PROTOCOL IV ; Start 07/20/18 at 23:00 Acetaminophen (Tylenol Tab) 650 mg Q6H PRN PO PAIN LEVEL 1-3 OR FEVER Last administered on 09/14/18at 10:51; Admin Dose 650 MG; Start 07/20/18 at 23:00 Acetaminophen (Tylenol Supp) 650 mg Q6H PRN [place] PAIN LEVEL 1-3 OR FEVER; Start 07/20/18 at 23:00 Docusate Sodium (Colace) 100 mg Q12H PRN PO CONSTIPATION Last administered on 09/17/18at 09:35; Admin Dose 100 MG; Start 07/20/18 at 23:00 Bisacodyl (Dulcolax) 5 mg DAILY PRN PO CONSTIPATION Last administered on 09/16/18at 08:33; Admin Dose 5 MG; Start 07/20/18 at 23:00 Diagnostic Test (Pha) (Accu-Chek) 1 ea 02 XX Last administered on 09/02/18at 02:04; Admin Dose 1 EA; Start 07/21/18 at 02:00 Insulin Aspart (Novolog Insulin Pen) NOVOLOG *MILD* ALGORITHM WITH MEALS BEDTIME SC Last administered on 09/11/18at 08:36; Admin Dose 1 UNIT; Start 07/21/18 at 07:50 Ergocalciferol (Drisdol) 50,000 unit Lacy@0900 PO Last administered on 09/11/18at 11:31; Admin Dose 50,000 UNIT; Start 07/24/18 at 09:00 Miscellaneous Information 1 ea NOTE XX ; Start 07/20/18 at 23:00 Glucose (Glutose) 15 gm Q15M PRN PO DECREASED GLUCOSE; Start 07/20/18 at 23:00 Glucose (Glutose) 22.5 gm Q15M PRN PO DECREASED GLUCOSE; Start 07/20/18 at 23:00 Dextrose (D50w Syringe) 25 ml Q15M PRN IV DECREASED GLUCOSE; Start 07/20/18 at 23:00 Dextrose (D50w Syringe) 50 ml Q15M PRN IV DECREASED GLUCOSE; Start 07/20/18 at 23:00 Glucagon (Glucagen) 1 mg Q15M PRN IM DECREASED GLUCOSE; Start 07/20/18 at 23:00 Glucose (Glutose) 15 gm Q15M PRN BUCCAL DECREASED GLUCOSE; Start 07/20/18 at 23:00 Melatonin (Melatonin) 3 mg HS PRN PO INSOMNIA Last administered on 09/14/18at 23:16; Admin Dose 3 MG; Start 07/20/18 at 23:00 Heparin Sodium (Porcine) 5,000 unit Q12 SC Last administered on 09/19/18at 09:10; Admin Dose 5,000 UNIT; Start 07/21/18 at 21:00 Diclofenac Sodium (Voltaren 1% Gel) 2 gm QID TP Last administered on 09/17/18at 21:10; Admin Dose 2 GM; Start 07/22/18 at 13:00 Guaifenesin/ Dextromethorphan (Robitussin Dm Liquid Cup) 10 ml Q4H PRN PO COUGH; Start 07/30/18 at 15:00 Sodium Chloride (NS) -To prime the dialy... DIRECTED FOR HD PRN IV HD; Start 07/31/18 at 18:00 Loratadine (Claritin) 10 mg DAILY PRN PO ALLERGIC REACTION Last administered on 08/07/18at 12:48; Admin Dose 10 MG; Start 08/07/18 at 12:30 Hydralazine HCl (Apresoline) 10 mg Q6H PRN PO ELEVATED BLOOD PRESSURE Last administered on 09/14/18at 02:44; Admin Dose 10 MG; Start 08/08/18 at 04:30 Hydralazine HCl (Apresoline) 25 mg TID PO Last administered on 09/18/18at 13:53; Admin Dose 25 MG; Start 08/08/18 at 13:00 Eye Lubricant (Artificial Tears Oph) 2 drop QID BOTH EYES Last administered on 09/17/18at 21:10; Admin Dose 2 DROP; Start 08/09/18 at 11:00 Calcium Carbonate (Tums) 500 mg PRN PRN PO HEARTBURN Last administered on 09/04/18 04:18; Admin Dose 500 MG; Start 08/09/18 at 14:30 Famotidine (Pepcid) 20 mg DAILY PO Last administered on 09/19/18at 09:10; Admin Dose 20 MG; Start 08/22/18 at 09:00 Loperamide HCl (Imodium Cap) 2 mg QID PRN PO DIARRHEA; Start 08/21/18 at 16:00 Lactobacillus Acidophilus/ Rhamnosus (Culturelle) 1 cap BID PO Last admini stered on 09/17/18at 21:09; Admin Dose 1 CAP; Start 08/21/18 at 21:00 Nystatin (Nystatin Powder) 1 applic BID TOP Last administered on 09/17/18 21:10; Admin Dose 1 APPLIC; Start 08/28/18 at 21:00 Tramadol HCl (Ultram) 100 mg Q6H PRN PO PAIN LEVEL 6-10 Last administered on 09/19/18at 14:46; Admin Dose 100 MG; Start 09/01/18 at 02:00 Ondansetron HCl (Zofran Tab) 4 mg Q6H PRN PO NAUSEA AND/OR VOMITING Last administered on 09/10/18at 07:58; Admin Dose 4 MG; Start 09/03/18 at 16:00 Mupirocin (Bactroban) 1 applic BID TOP Last administered on 09/17/18at 09:54; Admin Dose 1 APPLIC; Start 09/10/18 at 14:00 Al Hydrox/Mg Hydrox/Simethicone (Mag-Al Plus) 30 ml Q4H PRN PO GASTROINTESTINAL UPSET; Start 09/10/18 at 18:00 Miscellaneous Information (*Order Clarification Bulletin) MEDICATION REQUIRES CLARIFICATI... Q8H XX ; Start 09/12/18 at 16:00 Heparin Sodium (Porcine) (Heparin (1000 Units/ml)) 4,000 unit AFTER DIALYSIS CATHETER Last administered on 09/18/18at 22:30; Admin Dose 4,000 UNIT; Start 09/16/18 at 18:00 Albumin Human 50 ml @ 100 mls/hr WITH DIALYSIS PRN IV SBP<90; Start 09/16/18 at 18:00 Furosemide (Lasix) 40 mg DAILY PO Last administered on 09/19/18at 09:10; Admin Dose 40 MG; Start 09/19/18 at 09:00 Results Result Diagram: 09/18/181915 Results 24 hrs Laboratory Tests Test 09/18/18 17:44 09/18/18 19:16 09/18/18 22:58 09/18/18 23:03 Bedside Glucose 163 252 H 116 Sodium Level 138 Potassium Level 4.8 Chloride Level 99 Carbon Dioxide 27 Level Anion Gap 12 Blood Urea 48 H Nitrogen Creatinine 4.48 H Est Glomerular 10 L Filtrat Rate mL/min Glucose Level 125 Calcium Level 8.8 Phosphorus Level 4.4 Magnesium Level 1.9 Test 09/18/18 23:15 09/19/18 08:23 09/19/18 12:25 Bedside Glucose 113 106 156 JEANIE CID NP Sep 19, 2018 15:16
[2018-09-19] MEDS ORDERED: FUROSEMIDE 40 MG INJ IV ONE (16:00)
--- NOTE | 2018-09-19 16:01 | PN ---
Date/Time of Note Date/Time of Note DATE: 09/19/18 TIME: 15:58 Assessment/Plan VTE Prophylaxis Risk score (from Nsg)>0 risk: 8 SCD applied (from Nsg): Yes Pharmacological prophylaxis: NA/contraindicated, heparin Pharm contraindication: low risk/ambulating Lines/Catheters IV Catheter Type (from Nrsg): permacath Urinary Cath still in place: No Assessment/Plan Hospital Course 58 y/o with 1. . ckd iii-iv now with the complications of hyperkalemia, patient has been refusing Kayexalate [place] has also been refusing dialysis, patient was explained the risks and consequences and patient completely understands the risks and consequences, now agreed, on and off Hd once a week 2. c diff hx 3. Chronic kidney disease, 4. Morbid obesity. 5. Diabetes. 6. Hypertension, 7. Gout.hx 8. Neuropathy. 9. History of congestive heart failure. 10 weakness 11 deconditioning 13 Left shoulde pain, TTP ? Frozen shoulder , shoulder impingement 14 s/p Fall ? AMS confusion likley due to UTI 15 uti klebsiella and enterococcus 16 diarrhea 15 vomtiing/? contipation> refuse labs again Plan - HD Once a week, WILL GIVE EXTRA SESSION OF HD -stool softners - Lactobacillus - cw with PT -- pt refused cortisone injecion per ortho - Wound care - US with thrombosed graft - Ortho consult however patient refused a cortisone shot - avoid narcotics as it would limit her ability to walk for PT as it happened last admission since pts goal is Physical therapy - low k diet, cw lasix - ABX PER ID> on zyvox>FINISHED -tyenolol on as needed headache -dc veltassa as pt has been refusing it - warm compresses to shoulder SNIF with HD -spoke to Her about GI evaluation for the persistent nausea however patient refused ? SNIF VS HOME, Pt keep on changing, PER PT pt qaaulify for PT thrice a week and not everyday Subjective 24 Hr Interval Summary Free Text/Dictation Some pain around the umbilicus working WITH PT Exam/Review of Systems Vital Signs Vitals Vital Signs Date Temp Pulse Resp B/P (MAP) Pulse Ox O2 O2 Flow FiO2 Time Delivery Rate 09/19/18 122/75 09:07 (91) 09/18/18 83 22:50 09/18/18 98.6 19 96 20:45 09/18/18 Room Air 19:07 09/15/18 2.0 08:00 Intake and Output 09/18/18 09/18/18 09/19/18 1515:00 23:00 07:00 IntakeIntake Total 440 ml 420 ml OutputOutput Total 2100 ml BalanceBalance 440 ml -1680 ml Exam Neck: supple. MORBIDY OBESE Respiratory: clear to auscultation Cardiovascular: regular rate and rhythm Gastrointestinal: soft Medications Medications Current Medications Acetaminophen (Tylenol Tab) 325 mg Q4H PRN PO MILD PAIN(1-3)OR ELEVATED TEMP Last administered on 08/14/18at 17:29; Admin Dose 325 MG; Start 07/20/18 at 23:00 Allopurinol (Zyloprim) 100 mg DAILY PO Last administered on 09/19/18at 09:10; Admin Dose 100 MG; Start 07/21/18 at 09:00 IV Flush (NS 3 ml) 3 ml PER PROTOCOL IV ; Start 07/20/18 at 23:00 Acetaminophen (Tylenol Tab) 650 mg Q6H PRN PO PAIN LEVEL 1-3 OR FEVER Last administered on 09/14/18at 10:51; Admin Dose 650 MG; Start 07/20/18 at 23:00 Acetaminophen (Tylenol Supp) 650 mg Q6H PRN [place] PAIN LEVEL 1-3 OR FEVER; Start 07/20/18 at 23:00 Docusate Sodium (Colace) 100 mg Q12H PRN PO CONSTIPATION Last administered on 09/17/18at 09:35; Admin Dose 100 MG; Start 07/20/18 at 23:00 Bisacodyl (Dulcolax) 5 mg DAILY PRN PO CONSTIPATION Last administered on 09/16/18at 08:33; Admin Dose 5 MG; Start 07/20/18 at 23:00 Diagnostic Test (Pha) (Accu-Chek) 1 ea 02 XX Last administered on 09/02/18at 02:04; Admin Dose 1 EA; Start 07/21/18 at 02:00 Insulin Aspart (Novolog Insulin Pen) NOVOLOG *MILD* ALGORITHM WITH MEALS BEDTIME SC Last administered on 09/11/18at 08:36; Admin Dose 1 UNIT; Start 07/21/18 at 07:50 Ergocalciferol (Drisdol) 50,000 unit Lacy@0900 PO Last administered on 09/11/18at 11:31; Admin Dose 50,000 UNIT; Start 07/24/18 at 09:00 Miscellaneous Information 1 ea NOTE XX ; Start 07/20/18 at 23:00 Glucose (Glutose) 15 gm Q15M PRN PO DECREASED GLUCOSE; Start 07/20/18 at 23:00 Glucose (Glutose) 22.5 gm Q15M PRN PO DECREASED GLUCOSE; Start 07/20/18 at 23:00 Dextrose (D50w Syringe) 25 ml Q15M PRN IV DECREASED GLUCOSE; Start 07/20/18 at 23:00 Dextrose (D50w Syringe) 50 ml Q15M PRN IV DECREASED GLUCOSE; Start 07/20/18 at 23:00 Glucagon (Glucagen) 1 mg Q15M PRN IM DECREASED GLUCOSE; Start 07/20/18 at 23:00 Glucose (Glutose) 15 gm Q15M PRN BUCCAL DECREASED GLUCOSE; Start 07/20/18 at 23:00 Melatonin (Melatonin) 3 mg HS PRN PO INSOMNIA Last administered on 09/14/18at 23:16; Admin Dose 3 MG; Start 07/20/18 at 23:00 Heparin Sodium (Porcine) 5,000 unit Q12 SC Last administered on 09/19/18at 09:10; Admin Dose 5,000 UNIT; Start 07/21/18 at 21:00 Diclofenac Sodium (Voltaren 1% Gel) 2 gm QID TP Last administered on 09/17/18at 21:10; Admin Dose 2 GM; Start 07/22/18 at 13:00 Guaifenesin/ Dextromethorphan (Robitussin Dm Liquid Cup) 10 ml Q4H PRN PO COUGH; Start 07/30/18 at 15:00 Sodium Chloride (NS) -To prime the dialy... DIRECTED FOR HD PRN IV HD; Start 07/31/18 at 18:00 Loratadine (Claritin) 10 mg DAILY PRN PO ALLERGIC REACTION Last administered on 08/07/18at 12:48; Admin Dose 10 MG; Start 08/07/18 at 12:30 Hydralazine HCl (Apresoline) 10 mg Q6H PRN PO ELEVATED BLOOD PRESSURE Last administered on 09/14/18at 02:44; Admin Dose 10 MG; Start 08/08/18 at 04:30 Hydralazine HCl (Apresoline) 25 mg TID PO Last administered on 09/18/18at 13:53; Admin Dose 25 MG; Start 08/08/18 at 13:00 Eye Lubricant (Artificial Tears Oph) 2 drop QID BOTH EYES Last administered on 09/17/18 21:10; Admin Dose 2 DROP; Start 08/09/18 at 11:00 Calcium Carbonate (Tums) 500 mg PRN PRN PO HEARTBURN Last administered on 09/04/18 04:18; Admin Dose 500 MG; Start 08/09/18 at 14:30 Famotidine (Pepcid) 20 mg DAILY PO Last administered on 09/19/18 09:10; Admin Dose 20 MG; Start 08/22/18 at 09:00 Loperamide HCl (Imodium Cap) 2 mg QID PRN PO DIARRHEA; Start 08/21/18 at 16:00 Lactobacillus Acidophilus/ Rhamnosus (Culturelle) 1 cap BID PO Last administered on 09/17/18at 21:09; Admin Dose 1 CAP; Start 08/21/18 at 21:00 Nystatin (Nystatin Powder) 1 applic BID TOP Last administered on 09/17/18 21:10; Admin Dose 1 APPLIC; Start 08/28/18 at 21:00 Tramadol HCl (Ultram) 100 mg Q6H PRN PO PAIN LEVEL 6-10 Last administered on 09/19/18 14:46; Admin Dose 100 MG; Start 09/01/18 at 02:00 Ondansetron HCl (Zofran Tab) 4 mg Q6H PRN PO NAUSEA AND/OR VOMITING Last administered on 09/10/18at 07:58; Admin Dose 4 MG; Start 09/03/18 at 16:00 Mupirocin (Bactroban) 1 applic BID TOP Last administered on 09/17/18 09:54; Admin Dose 1 APPLIC; Start 09/10/18 at 14:00 Al Hydrox/Mg Hydrox/Simethicone (Mag-Al Plus) 30 ml Q4H PRN PO GASTROINTESTINAL UPSET; Start 09/10/18 at 18:00 Miscellaneous Information (*Order Clarification Bulletin) MEDICATION REQUIRES CLARIFICATI... Q8H XX ; Start 09/12/18 at 16:00 Heparin Sodium (Porcine) (Heparin (1000 Units/ml)) 4,000 unit AFTER DIALYSIS CATHETER Last administered on 09/18/18at 22:30; Admin Dose 4,000 UNIT; Start 09/16/18 at 18:00 Albumin Human 50 ml @ 100 mls/hr WITH DIALYSIS PRN IV SBP<90; Start 09/16/18 at 18:00 Furosemide (Lasix) 40 mg ONCE ONCE IV ; Start 09/19/18 at 16:00; Stop 09/19/18 at 16:01; Status UNV Results Result Diagram: 09/18/18 1916 Results 24 hrs Laboratory Tests Test 09/18/18 17:44 09/18/18 19:16 09/18/18 22:58 09/18/18 23:03 Bedside Glucose 163 252 H 116 Sodium Level 138 Potassium Level 4.8 Chloride Level 99 Carbon Dioxide 27 Level Anion Gap 12 Blood Urea 48 H Nitrogen Creatinine 4.48 H Est Glomerular 10 L Filtrat Rate mL/min Glucose Level 125 Calcium Level 8.8 Phosphorus Level 4.4 Magnesium Level 1.9 Test 09/18/18 23:15 09/19/18 08:23 09/19/18 12:25 Bedside Glucose 113 106 156 KOFI SWANN MD Sep 19, 2018 16:01
[2018-09-19] MEDS: DOCUSATE SODIUM 100 MG CAP PO PRN (20:03)
[2018-09-19 21:29] VITALS: BP 149/65; PULSE 93; RESP 19
[2018-09-20] MEDS: MELATONIN 3 MG TABLET PO PRN (01:56)
[2018-09-20] MEDS: ACCU-CHEK XX SCH (02:00)
[2018-09-20 02:11] VITALS: BP 123/57; PULSE 88; RESP 20
[2018-09-20] MEDS: ARTIFICIAL TEARS 15 ML OPH BOTH EYES SCH ×4 (09:00→21:00)
[2018-09-20] MEDS: DICLOFENAC SODIUM 1% GEL 100 GM TUBE TP SCH ×4 (09:00→21:00)
[2018-09-20] MEDS: LACTOBACILLUS RHAMNOSUS CAP PO SCH ×2 (09:00→21:00)
[2018-09-20] MEDS: traMADol 50 MG TAB PO PRN ×3 (09:15→22:05)
[2018-09-20] MEDS: ALLOPURINOL 100 MG TAB PO SCH (09:19)
[2018-09-20 09:23] VITALS: BP 124/75; PULSE 90; RESP 18
[2018-09-20] MEDS: FAMOTIDINE 20 MG TAB PO SCH (09:26)
[2018-09-20] MEDS: HEPARIN 5,000 UNIT/1 ML VIAL SC SCH ×2 (09:27→20:43)
[2018-09-20] MEDS: INSULIN ASPART [NOVOLOG] 3 ML PEN SC SCH ×4 (09:44→20:38)
--- NOTE | 2018-09-20 12:27 | CONS ---
Date/Time of Note Date/Time of Note DATE: 09/20/18 TIME: 12:26 Assessment/Plan Assessment/Plan Chief Complaint/Hosp Course SUBJECTIVE: No acute events overnight, looks comfortable, no fevers INDWELLINGS: left chest Perm-A-Cath. MICROBIOLOGY: Urine culture on 08/03/2018 was positive for Klebsiella, enterococcus and Aerococcus abdominal umbilical drainage culture grew Corynebacterium group JK enterococcus and coagulase-negative staph species. PHYSICAL EXAMINATION: GENERAL: This is a morbidly obese, chronically ill-appearing, elderly woman who is alert, in no distress. HEENT: Head atraumatic, normocephalic. NECK: Supple. CHEST: Rise symmetrical. Breath sounds clear. HEART: S1, S2. ABDOMEN: Obese, bowel tones present, pain around umbilical area with foul odor, no drainage, no erythema. EXTREMITIES: Without cyanosis. ASSESSMENT: 1. Status post systemic inflammatory response syndrome. 2. Status post urinary tract infection. 3. End-stage renal disease. 4. Diabetes. 5. Hypertension. 6. History of Clostridium difficile colitis. 7. Resolving umbilical cellulitis. PLAN: The patient remains stable. Off antibiotics, will see prn Consultation Date/Type/Reason Admit Date/Time Jul 23, 2018 at 16:13 Initial Consult Date Type of Consult id Exam/Review of Systems Vital Signs Vitals Vital Signs Date Temp Pulse Resp B/P (MAP) Pulse Ox O2 O2 Flow FiO2 Time Delivery Rate 09/20/18 98.4 90 18 124/75 09:23 (91) 09/20/18 98 02:11 09/19/18 Room Air 21:29 Intake and Output 09/19/18 09/19/18 09/20/18 1515:00 23:00 07:00 IntakeIntake Total 480 ml 200 ml OutputOutput Total 2 ml BalanceBalance 478 ml 200 ml Medications Medications Current Medications Acetaminophen (Tylenol Tab) 325 mg Q4H PRN PO MILD PAIN(1-3)OR ELEVATED TEMP Last administered on 08/14/18at 17:29; Admin Dose 325 MG; Start 07/20/18 at 23:00 Allopurinol (Zyloprim) 100 mg DAILY PO Last administered on 09/20/18at 09:19; Admin Dose 100 MG; Start 07/21/18 at 09:00 IV Flush (NS 3 ml) 3 ml PER PROTOCOL IV ; Start 07/20/18 at 23:00 Acetaminophen (Tylenol Tab) 650 mg Q6H PRN PO PAIN LEVEL 1-3 OR FEVER Last administered on 09/14/18at 10:51; Admin Dose 650 MG; Start 07/20/18 at 23:00 Acetaminophen (Tylenol Supp) 650 mg Q6H PRN NM PAIN LEVEL 1-3 OR FEVER; Start 07/20/18 at 23:00 Docusate Sodium (Colace) 100 mg Q12H PRN PO CONSTIPATION Last administered on 09/19/18at 20:03; Admin Dose 100 MG; Start 07/20/18 at 23:00 Bisacodyl (Dulcolax) 5 mg DAILY PRN PO CONSTIPATION Last administered on 09/16/18at 08:33; Admin Dose 5 MG; Start 07/20/18 at 23:00 Diagnostic Test (Pha) (Accu-Chek) 1 ea 02 XX Last administered on 09/02/18at 02:04; Admin Dose 1 EA; Start 07/21/18 at 02:00 Insulin Aspart (Novolog Insulin Pen) NOVOLOG *MILD* ALGORITHM WITH MEALS BEDTIME SC Last administered on 09/11/18at 08:36; Admin Dose 1 UNIT; Start 07/21/18 at 07:50 Ergocalciferol (Drisdol) 50,000 unit Lacy@0900 PO Last administered on 09/11/18at 11:31; Admin Dose 50,000 UNIT; Start 07/24/18 at 09:00 Miscellaneous Information 1 ea NOTE XX ; Start 07/20/18 at 23:00 Glucose (Glutose) 15 gm Q15M PRN PO DECREASED GLUCOSE; Start 07/20/18 at 23:00 Glucose (Glutose) 22.5 gm Q15M PRN PO DECREASED GLUCOSE; Start 07/20/18 at 23:00 Dextrose (D50w Syringe) 25 ml Q15M PRN IV DECREASED GLUCOSE; Start 07/20/18 at 23:00 Dextrose (D50w Syringe) 50 ml Q15M PRN IV DECREASED GLUCOSE; Start 07/20/18 at 23:00 Glucagon (Glucagen) 1 mg Q15M PRN IM DECREASED GLUCOSE; Start 07/20/18 at 23:00 Glucose (Glutose) 15 gm Q15M PRN BUCCAL DECREASED GLUCOSE; Start 07/20/18 at 23:00 Melatonin (Melatonin) 3 mg HS PRN PO INSOMNIA Last administered on 09/20/18 01:56; Admin Dose 3 MG; Start 07/20/18 at 23:00 Heparin Sodium (Porcine) (Heparin (5000 Units/1ml)) 5,000 unit Q12 SC Last a dministered on 09/20/18 09:27; Admin Dose 5,000 UNIT; Start 07/21/18 at 21:00 Diclofenac Sodium (Voltaren 1% Gel) 2 gm QID TP Last administered on 09/19/18at 21:38; Admin Dose 2 GM; Start 07/22/18 at 13:00 Guaifenesin/ Dextromethorphan (Robitussin Dm Liquid Cup) 10 ml Q4H PRN PO COUGH; Start 07/30/18 at 15:00 Sodium Chloride (NS) -To prime the dialy... DIRECTED FOR HD PRN IV HD; Start 07/31/18 at 18:00 Loratadine (Claritin) 10 mg DAILY PRN PO ALLERGIC REACTION Last administered on 08/07/18at 12:48; Admin Dose 10 MG; Start 08/07/18 at 12:30 Hydralazine HCl (Apresoline) 10 mg Q6H PRN PO ELEVATED BLOOD PRESSURE Last administered on 09/14/18 02:44; Admin Dose 10 MG; Start 08/08/18 at 04:30 Hydralazine HCl (Apresoline) 25 mg TID PO Last administered on 09/20/18 09:25; Admin Dose 25 MG; Start 08/08/18 at 13:00 Eye Lubricant (Artificial Tears Oph) 2 drop QID BOTH EYES Last administered on 09/19/18at 21:39; Admin Dose 2 DROP; Start 08/09/18 at 11:00 Calcium Carbonate (Tums) 500 mg PRN PRN PO HEARTBURN Last administered on 09/04/18 04:18; Admin Dose 500 MG; Start 08/09/18 at 14:30 Famotidine (Pepcid) 20 mg DAILY PO Last administered on 09/20/18 09:26; Admin Dose 20 MG; Start 08/22/18 at 09:00 Loperamide HCl (Imodium Cap) 2 mg QID PRN PO DIARRHEA; Start 08/21/18 at 16:00 Lactobacillus Acidophilus/ Rhamnosus (Culturelle) 1 cap BID PO Last administered on 09/17/18at 21:09; Admin Dose 1 CAP; Start 08/21/18 at 21:00 Nystatin (Nystatin Powder) 1 applic BID TOP Last administered on 09/19/18at 21:39; Admin Dose 1 APPLIC; Start 08/28/18 at 21:00 Tramadol HCl (Ultram) 100 mg Q6H PRN PO PAIN LEVEL 6-10 Last administered on 09/20/18at 09:15; Admin Dose 100 MG; Start 09/01/18 at 02:00 Ondansetron HCl (Zofran Tab) 4 mg Q6H PRN PO NAUSEA AND/OR VOMITING Last ad ministered on 09/10/18at 07:58; Admin Dose 4 MG; Start 09/03/18 at 16:00 Mupirocin (Bactroban) 1 applic BID TOP Last administered on 09/19/18at 21:38; Admin Dose 1 APPLIC; Start 09/10/18 at 14:00 Al Hydrox/Mg Hydrox/Simethicone (Mag-Al Plus) 30 ml Q4H PRN PO GASTROINTESTINAL UPSET; Start 09/10/18 at 18:00 Miscellaneous Information (*Order Clarification Bulletin) MEDICATION REQUIRES CLARIFICATI... Q8H XX ; Start 09/12/18 at 16:00 Heparin Sodium (Porcine) (Heparin (1000 Units/ml)) 4,000 unit AFTER DIALYSIS CATHETER Last administered on 09/18/18at 22:30; Admin Dose 4,000 UNIT; Start 09/16/18 at 18:00 Albumin Human 50 ml @ 100 mls/hr WITH DIALYSIS PRN IV SBP<90; Start 09/16/18 at 18:00 Results Result Diagram: 09/18/18 1916 Results 24 hrs Laboratory Tests Test 09/19/18 17:58 09/19/18 21:37 09/20/18 09:37 Bedside Glucose 113 150 97 JEANIE CID NP Sep 20, 2018 12:27
[2018-09-20] MEDS: DOCUSATE SODIUM 100 MG CAP PO PRN (14:07)
--- NOTE | 2018-09-20 15:34 | PN ---
Date/Time of Note Date/Time of Note DATE: 09/20/18 TIME: 15:33 Assessment/Plan VTE Prophylaxis Risk score (from Nsg)>0 risk: 7 SCD applied (from Ns): No SCD contraindicated: other Pharmacological prophylaxis: LMWH, heparin Lines/Catheters IV Catheter Type (from Nrsg): permacath Urinary Cath still in place: No Assessment/Plan Hospital Course 58 y/o with 1. . ckd iii-iv now with the complications of hyperkalemia, patient has been refusing Kayexalate Veltassa has also been refusing dialysis, patient was explained the risks and consequences and patient completely understands the risks and consequences, now agreed, on and off Hd once a week 2. c diff hx 3. Chronic kidney disease, 4. Morbid obesity. 5. Diabetes. 6. Hypertension, 7. Gout.hx 8. Neuropathy. 9. History of congestive heart failure. 10 weakness 11 deconditioning 13 Left shoulde pain, TTP ? Frozen shoulder , shoulder impingement 14 s/p Fall ? AMS confusion likley due to UTI 15 uti klebsiella and enterococcus 16 diarrhea 15 vomtiing/? contipation> refuse labs again 16 Dizziness> chronic ? Postural Plan - HD Once a week, WILL GIVE EXTRA SESSION OF HD - labs tmw - will do CT head -stool softners - Lactobacillus - cw with PT -- pt refused cortisone injecion per ortho - Wound care - US with thrombosed graft - Ortho consult however patient refused a cortisone shot - avoid narcotics as it would limit her ability to walk for PT as it happened last admission since pts goal is Physical therapy - low k diet, cw lasix - ABX PER ID> on zyvox>FINISHED -tyenolol on as needed headache -dc veltassa as pt has been refusing it - warm compresses to shoulder SNIF with HD -spoke to Her about GI evaluation for the persistent nausea however patient refused ? SNIF VS HOME, Pt keep on changing, PER PT pt qaaulify for PT thrice a week and not everyday Subjective 24 Hr Interval Summary Free Text/Dictation pt say that she feels dizzy a lot Exam/Review of Systems Vital Signs Vitals Vital Signs Date Temp Pulse Resp B/P (MAP) Pulse Ox O2 O2 Flow FiO2 Time Delivery Rate 09/20/18 98.4 90 18 124/75 09:23 (91) 09/20/18 98 02:11 09/19/18 Room Air 21:29 Intake and Output 09/19/18 09/19/18 09/20/18 1515:00 23:00 07:00 IntakeIntake Total 480 ml 200 ml OutputOutput Total 2 ml BalanceBalance 478 ml 200 ml Exam Neck: supple. MORBIDY OBESE Respiratory: clear to auscultation Cardiovascular: regular rate and rhythm Gastrointestinal: soft Medications KOFI SWANN MD Sep 20, 2018 15:34
[2018-09-20] MEDS: MUPIROCIN 2% 22 GM OINT TOP SCH ×2 (18:47→21:00)
[2018-09-20] MEDS: BALSAM PERU/CASTOR OIL 60 GM TUBE TOP SCH ×2 (18:47→21:00)
[2018-09-20] MEDS: NYSTATIN 30 GM POWDER BTL TOP SCH ×2 (18:47→21:00)
[2018-09-20 19:12] VITALS: BP 117/74; PULSE 52; RESP 16
[2018-09-20 20:00] VITALS: PULSE 80; RESP 18
[2018-09-21 01:08] VITALS: BP 102/95; PULSE 91; RESP 16
[2018-09-21] MEDS: ACCU-CHEK XX SCH (01:49)
[2018-09-21] MEDS: CALCIUM CARBONATE 500 MG CHEW TAB PO PRN (02:18)
[2018-09-21] MEDS: MELATONIN 3 MG TABLET PO PRN ×2 (02:21→22:34)
[2018-09-21] MEDS ORDERED: VITAMIN A & D 5 GM OINT PACKET TOP ONE (02:25)
[2018-09-21] MEDS: traMADol 50 MG TAB PO PRN ×3 (04:48→17:49)
[2018-09-21] MEDS: INSULIN ASPART [NOVOLOG] 3 ML PEN SC SCH ×4 (07:50→21:00)
[2018-09-21] MEDS: MUPIROCIN 2% 22 GM OINT TOP SCH ×2 (09:00→21:00)
[2018-09-21] MEDS: NYSTATIN 30 GM POWDER BTL TOP SCH ×2 (09:00→21:00)
[2018-09-21] MEDS: LACTOBACILLUS RHAMNOSUS CAP PO SCH ×2 (09:00→21:00)
[2018-09-21] MEDS: ARTIFICIAL TEARS 15 ML OPH BOTH EYES SCH ×4 (09:00→21:00)
[2018-09-21] MEDS: BALSAM PERU/CASTOR OIL 60 GM TUBE TOP SCH ×2 (09:00→21:00)
[2018-09-21] MEDS: DICLOFENAC SODIUM 1% GEL 100 GM TUBE TP SCH ×4 (09:00→21:00)
[2018-09-21 09:19] VITALS: BP 111/72; PULSE 82; RESP 18
[2018-09-21] MEDS: HEPARIN 5,000 UNIT/1 ML VIAL SC SCH ×2 (09:42→22:33)
[2018-09-21] MEDS: ALLOPURINOL 100 MG TAB PO SCH (12:52)
[2018-09-21] MEDS: FAMOTIDINE 20 MG TAB PO SCH (12:52)
[2018-09-21 12:57] VITALS: BP 142/72; PULSE 85; RESP 18
[2018-09-21] MEDS: FUROSEMIDE 40 MG TAB PO SCH (15:01)
--- NOTE | 2018-09-21 17:17 | PN ---
Date/Time of Note Date/Time of Note DATE: 09/21/18 TIME: 17:16 Assessment/Plan VTE Prophylaxis Risk score (from Nsg)>0 risk: 7 SCD applied (from Ns): No SCD contraindicated: low risk/ambulating Pharmacological prophylaxis: NA/contraindicated, heparin Pharm contraindication: low risk/ambulating Lines/Catheters IV C[facility] Type (from [facility]): permacath Urinary Cath still in place: No Assessment/Plan Hospital Course 58 y/o with 1. . ckd iii-iv now with the complications of hyperkalemia, patient has been re fusing Kayexalate Veltassa has also been refusing dialysis, patient was explained the risks and consequences and patient completely understands the risks and consequences, now agreed, on and off Hd once a week 2. c diff hx 3. Chronic kidney disease, 4. Morbid obesity. 5. Diabetes. 6. Hypertension, 7. Gout.hx 8. Neuropathy. 9. History of congestive heart failure. 10 weakness 11 deconditioning 13 Left shoulde pain, TTP ? Frozen shoulder , shoulder impingement 14 s/p Fall ? AMS confusion likley due to UTI 15 uti klebsiella and enterococcus 16 diarrhea 15 vomtiing/? contipation> refuse labs again 16 Dizziness> chronic ? Postural Plan - HD on 09/18 - labs tmw - will do CT head > WILL do MRI without contrast - recheck UA -stool softners - Lactobacillus - cw with PT -- pt refused cortisone injecion per ortho - Wound care - US with thrombosed graft - Ortho consult however patient refused a cortisone shot - avoid narcotics as it would limit her ability to walk for PT as it happened last admission since pts goal is Physical therapy - low k diet, cw lasix - ABX PER ID> on zyvox>FINISHED -tyenolol on as needed headache -dc veltassa as pt has been refusing it - warm compresses to shoulder SNIF with HD -spoke to Her about GI evaluation for the persistent nausea however patient refused ? SNIF VS HOME, Pt keep on changing, PER PT pt qaaulify for PT thrice a week and not everyday Subjective 24 Hr Interval Summary Free Text/Dictation Patient complaining of foul-smelling urine CT of the head partially empty sella Exam/Review of Systems Vital Signs Vitals Vital Signs Date Temp Pulse Resp B/P (MAP) Pulse Ox O2 O2 Flow FiO2 Time Delivery Rate 09/21/18 85 18 142/72 Room Air 12:57 (95) 09/21/18 98.0 92 09:19 Intake and Output 09/20/18 09/20/18 09/21/18 1515:00 23:00 07:00 IntakeIntake Total 480 ml 400 ml OutputOutput Total 2 ml BalanceBalance 478 ml 400 ml Exam Neck: supple. MORBIDY OBESE Respiratory: clear to auscultation Cardiovascular: regular rate and rhythm Gastrointestinal: soft KOFI SWANN MD Sep 21, 2018 17:17
[2018-09-21 19:23] VITALS: BP 160/81; PULSE 82; RESP 16
[2018-09-21] MEDS ORDERED: traMADol 50 MG TAB PO ONE (22:00)
[2018-09-22 01:30] VITALS: BP 120/58; PULSE 89; RESP 16
[2018-09-22] MEDS: CALCIUM CARBONATE 500 MG CHEW TAB PO PRN (02:35)
[2018-09-22] MEDS: ACCU-CHEK XX SCH (02:45)
[2018-09-22] MEDS: traMADol 50 MG TAB PO PRN ×3 (04:56→17:48)
[2018-09-22] MEDS: INSULIN ASPART [NOVOLOG] 3 ML PEN SC SCH ×4 (07:50→21:00)
[2018-09-22 08:55] VITALS: BP 115/58; PULSE 96; RESP 20
[2018-09-22] MEDS: BALSAM PERU/CASTOR OIL 60 GM TUBE TOP SCH ×2 (09:00→21:00)
[2018-09-22] MEDS: ARTIFICIAL TEARS 15 ML OPH BOTH EYES SCH ×4 (09:00→21:00)
[2018-09-22] MEDS: NYSTATIN 30 GM POWDER BTL TOP SCH ×2 (09:00→21:00)
[2018-09-22] MEDS: MUPIROCIN 2% 22 GM OINT TOP SCH ×2 (09:00→21:00)
[2018-09-22] MEDS: DICLOFENAC SODIUM 1% GEL 100 GM TUBE TP SCH ×4 (09:00→21:00)
[2018-09-22] MEDS: HEPARIN 5,000 UNIT/1 ML VIAL SC SCH (09:17)
[2018-09-22] MEDS: LACTOBACILLUS RHAMNOSUS CAP PO SCH ×2 (09:19→21:00)
[2018-09-22] MEDS: ALLOPURINOL 100 MG TAB PO SCH (09:19)
[2018-09-22] MEDS: FUROSEMIDE 40 MG TAB PO SCH (09:19)
[2018-09-22] MEDS: FAMOTIDINE 20 MG TAB PO SCH (09:20)
--- NOTE | 2018-09-22 10:02 | PN ---
Date/Time of Note Date/Time of Note DATE: 09/22/18 TIME: 10:02 Assessment/Plan VTE Prophylaxis Risk score (from Nsg)>0 risk: 3 SCD applied (from Nsg): No SCD contraindicated: low risk/ambulating Pharmacological prophylaxis: heparin Lines/Catheters IV Catheter Type (from Nrsg): Permacath Urinary Cath still in place: No Assessment/Plan Hospital Course 58 y/o with 1. . ckd iii-iv now with the complications of hyperkalemia, patient has been refusing Kayexalate Veltassa has also been refusing dialysis, patient was explained the risks and consequences and patient completely understands the risks and consequences, now agreed, on and off Hd once a week 2. c diff hx 3. Chronic kidney disease, 4. Morbid obesity. 5. Diabetes. 6. Hypertension, 7. Gout.hx 8. Neuropathy. 9. History of congestive heart failure. 10 weakness 11 deconditioning 13 Left shoulde pain, TTP ? Frozen shoulder , shoulder impingement 14 s/p Fall ? AMS confusion likley due to UTI 15 uti klebsiella and enterococcus 16 diarrhea 15 vomtiing/? contipation> refuse labs again 16 Dizziness> chronic ? Postural 17 UTI Plan - HD on 09/18 > NEXT ON WEDNESDAY - Restart abx for uti > send Ucx - will do CT head > WILL do MRI without contrast today -stool softners - Lactobacillus - cw with PT -- pt refused cortisone injecion per ortho - Wound care - US with thrombosed graft - Ortho consult however patient refused a cortisone shot - avoid narcotics as it would limit her ability to walk for PT as it happened last admission since pts goal is Physical therapy - low k diet, cw lasix - ABX PER ID> on zyvox>FINISHED -tyenolol on as needed headache -dc veltassa as pt has been refusing it - warm compresses to shoulder SNIF with HD ? SNIF VS HOME, Pt keep on changing, PER PT pt qaaulify for PT thrice a week and not everyday Subjective 24 Hr Interval Summary Free Text/Dictation MRI today Still feels dizzy UA+ uti Exam/Review of Systems Vital Signs Vitals Vital Signs Date Temp Pulse Resp B/P (MAP) Pulse Ox O2 O2 Flow FiO2 Time Delivery Rate 09/22/18 98.3 96 20 115/58 91 Room Air 08:55 (77) Intake and Output 09/21/18 09/21/18 09/22/18 1515:00 23:00 07:00 OutputOutput Total 300 ml BalanceBalance -300 ml Exam elijah: supple. MORBIDY OBESE Respiratory: clear to auscultation Cardiovascular: regular rate and rhythm Gastrointestinal: soft KOFI SWANN MD Sep 22, 2018 10:02
[2018-09-22] MEDS ORDERED: CIPROFLOXACIN 200 MG/D5W IVPB 100 ML IVPB SCH (13:00)
[2018-09-22 16:23] VITALS: BP 130/71; PULSE 89; RESP 20
[2018-09-22 19:40] VITALS: BP 131/82; PULSE 94; RESP 20
[2018-09-23] MEDS: traMADol 50 MG TAB PO PRN ×4 (00:28→21:21)
[2018-09-23] MEDS: HEPARIN 5,000 UNIT/1 ML VIAL SC SCH ×3 (00:40→21:45)
[2018-09-23 02:00] VITALS: BP 151/65; PULSE 89; RESP 20
[2018-09-23] MEDS: ACCU-CHEK XX SCH (02:00)
[2018-09-23] MEDS: ACETAMINOPHEN 325 MG TAB PO PRN (02:29)
[2018-09-23] MEDS: MELATONIN 3 MG TABLET PO PRN (02:31)
[2018-09-23] MEDS: INSULIN ASPART [NOVOLOG] 3 ML PEN SC SCH ×4 (07:50→21:00)
[2018-09-23] MEDS: FAMOTIDINE 20 MG TAB PO SCH (08:49)
[2018-09-23] MEDS: LACTOBACILLUS RHAMNOSUS CAP PO SCH ×2 (08:49→21:00)
[2018-09-23] MEDS: CIPROFLOXACIN 400 MG in D5W 200 ML IVPB SCH (08:53)
[2018-09-23] MEDS: NYSTATIN 30 GM POWDER BTL TOP SCH ×2 (09:00→21:00)
[2018-09-23] MEDS: ARTIFICIAL TEARS 15 ML OPH BOTH EYES SCH ×4 (09:00→21:00)
[2018-09-23] MEDS: DICLOFENAC SODIUM 1% GEL 100 GM TUBE TP SCH ×4 (09:00→21:00)
[2018-09-23] MEDS: MUPIROCIN 2% 22 GM OINT TOP SCH ×2 (09:00→21:00)
[2018-09-23] MEDS: BALSAM PERU/CASTOR OIL 60 GM TUBE TOP SCH ×2 (09:00→21:00)
[2018-09-23 09:15] VITALS: BP 148/70; PULSE 80; RESP 16
[2018-09-23] MEDS: FUROSEMIDE 40 MG TAB PO SCH (12:08)
[2018-09-23] MEDS: ALLOPURINOL 100 MG TAB PO SCH (12:12)
[2018-09-23] MEDS ORDERED: HEPARIN 1000 UNITS/ML 10 ML INJ CATHETER SCH (14:00)
[2018-09-23 15:00] VITALS: BP 109/68; PULSE 94; RESP 16
--- NOTE | 2018-09-23 15:18 | PN ---
Date/Time of Note Date/Time of Note DATE: 09/23/18 TIME: 15:16 Assessment/Plan VTE Prophylaxis Risk score (from Nsg)>0 risk: 1 SCD applied (from Ns): No SCD contraindicated: bilateral LE trauma Pharmacological prophylaxis: apixaban Lines/Catheters IV Catheter Type (from Nrsg): Mid Line Central line still needed: Yes Urinary Cath still in place: No Assessment/Plan Hospital Course 1. ckd, hyperkalemia 2. c diff hx 3. Opiates dependency 4. Morbid obesity. 5. Diabetes. 6. Hypertension, 7. Gout, hx 8. Neuropathy. 9. History of congestive heart failure. 10. weakness 11. deconditioning 12. Non compliance, pt refused Valtessa, HD 13. Left shoulder chronic pain. Xray was reviewed from the last visit, it is arthrosis left acromioclavicular joint 14. constipation 15. UTI Assessment/Plan - HD on 09/24 > NEXT ON WEDNESDAY - Lactobacillus - cw with PT -- pt refused cortisone injection per ortho - Wound care - US with thrombosed graft - Ortho consult however patient refused a cortisone shot - avoid narcotics as it would limit her ability to walk for PT as it happened last admission since pts goal is Physical therapy - low k diet, cw lasix - ABX PER ID> on zyvox>FINISHED -tyenolol on as needed headache -dc veltassa as pt has been refusing it - warm compresses to shoulder -SNF with HD Subjective 24 Hr Interval Summary Free Text/Dictation cramping legs Gastrointestinal: pain Exam/Review of Systems Vital Signs Vitals Vital Signs Date Temp Pulse Resp B/P (MAP) Pulse Ox O2 O2 Flow FiO2 Time Delivery Rate 09/23/18 97.8 94 16 109/68 94 15:00 (82) 09/23/18 Room Air 02:00 Intake and Output 09/22/18 09/22/18 09/23/18 1515:00 23:00 07:00 IntakeIntake Total 620 ml 150 ml OutputOutput Total 1 ml 1 ml BalanceBalance 619 ml 149 ml Exam right chest Permcath Constitutional: alert, oriented ENMT: nl external ears & nose Respiratory: clear to auscultation Cardiovascular: regular rate and rhythm Gastrointestinal: soft, distended WILLY MEDEIROS Sep 23, 2018 15:18
[2018-09-23 19:25] VITALS: BP 127/61; PULSE 89; RESP 20
[2018-09-24] MEDS: ACCU-CHEK XX SCH (00:43)
[2018-09-24] MEDS: MELATONIN 3 MG TABLET PO PRN (02:04)
[2018-09-24 02:10] VITALS: BP 114/57; PULSE 85; RESP 20
[2018-09-24] MEDS: traMADol 50 MG TAB PO PRN ×3 (03:39→16:53)
[2018-09-24] MEDS: INSULIN ASPART [NOVOLOG] 3 ML PEN SC SCH ×4 (07:50→21:00)
[2018-09-24] MEDS: CIPROFLOXACIN 400 MG in D5W 200 ML IVPB SCH (08:13)
[2018-09-24] MEDS: ALLOPURINOL 100 MG TAB PO SCH (08:13)
[2018-09-24] MEDS: FAMOTIDINE 20 MG TAB PO SCH (08:13)
[2018-09-24] MEDS: ARTIFICIAL TEARS 15 ML OPH BOTH EYES SCH ×4 (08:14→21:00)
[2018-09-24] MEDS: BALSAM PERU/CASTOR OIL 60 GM TUBE TOP SCH ×2 (08:14→21:00)
[2018-09-24] MEDS: FUROSEMIDE 40 MG TAB PO SCH (08:14)
[2018-09-24] MEDS: MUPIROCIN 2% 22 GM OINT TOP SCH ×2 (08:14→21:00)
[2018-09-24] MEDS: NYSTATIN 30 GM POWDER BTL TOP SCH ×2 (08:14→21:00)
[2018-09-24] MEDS: LACTOBACILLUS RHAMNOSUS CAP PO SCH ×2 (08:14→21:00)
[2018-09-24] MEDS: DICLOFENAC SODIUM 1% GEL 100 GM TUBE TP SCH ×4 (08:15→21:00)
[2018-09-24 08:16] VITALS: BP 139/74; PULSE 74; RESP 16
[2018-09-24] MEDS: HEPARIN 5,000 UNIT/1 ML VIAL SC SCH ×2 (08:18→21:00)
--- NOTE | 2018-09-24 12:28 | PN ---
Date/Time of Note Date/Time of Note DATE: 09/24/18 TIME: 12:26 Assessment/Plan VTE Prophylaxis Risk score (from Nsg)>0 risk: 2 SCD applied (from Ns): Yes Pharmacological prophylaxis: heparin Pharm contraindication: other Lines/Catheters IV Catheter Type (from Nrsg): permacath Urinary Cath still in place: No Assessment/Plan Hospital Course 1. ckd, hyperkalemia 2. c diff hx 3. Opiates dependency 4. Morbid obesity. 5. Diabetes. 6. Hypertension, 7. Gout, hx 8. Neuropathy. 9. History of congestive heart failure. 10. weakness 11. deconditioning 12. Non compliance, pt refused Valtessa, HD 13. Left shoulder chronic pain. Xray was reviewed from the last visit, it is arthrosis left acromioclavicular joint 14. constipation 15. UTI 16. right arm Picc line is not functioning Assessment/Plan - HD on 09/24 -change cipro PO - Lactobacillus - cw with PT -- pt refused cortisone injection per ortho - Wound care - US with thrombosed graft - Ortho consult however patient refused a cortisone shot - avoid narcotics as it would limit her ability to walk for PT as it happened last admission since pts goal is Physical therapy - low k diet, cw lasix - ABX PER ID> on zyvox>FINISHED -Tylenol on as needed headache -dc veltassa as pt has been refusing it - warm compresses to shoulder -SNF with HD Subjective 24 Hr Interval Summary Musculoskeletal: restricted range of motion Exam/Review of Systems Vital Signs Vitals Vital Signs Date Temp Pulse Resp B/P (MAP) Pulse Ox O2 O2 Flow FiO2 Time Delivery Rate 09/24/18 97.8 74 16 139/74 88 08:16 (95) 09/23/18 Room Air 02:00 Intake and Output 09/23/18 09/23/18 09/24/18 1515:00 23:00 07:00 IntakeIntake Total 400 ml BalanceBalance 400 ml Exam right chest Permcath Constitutional: alert, oriented Cardiovascular: regular rate and rhythm Gastrointestinal: soft WILLY MEDEIROS Sep 24, 2018 12:28
[2018-09-24] MEDS ORDERED: VITAMIN A & D 5 GM OINT PACKET TOP ONE (12:55)
[2018-09-24 15:21] VITALS: BP 124/59; PULSE 78; RESP 18
[2018-09-24 19:15] VITALS: BP 113/59; PULSE 95; RESP 20
[2018-09-25] VITALS (9 sets, daily range): BP systolic 120–156; BP diastolic 67–99; PULSE 69–129; RESP 16–20
[2018-09-25] MEDS: ACCU-CHEK XX SCH (02:00)
[2018-09-25] MEDS: traMADol 50 MG TAB PO PRN ×4 (02:09→20:07)
[2018-09-25] MEDS ORDERED: CIPROFLOXACIN 500 MG TAB PO SCH (06:00)
[2018-09-25] MEDS: INSULIN ASPART [NOVOLOG] 3 ML PEN SC SCH ×4 (07:50→23:05)
[2018-09-25] MEDS: ALLOPURINOL 100 MG TAB PO SCH (08:22)
[2018-09-25] MEDS: FUROSEMIDE 40 MG TAB PO SCH (08:22)
[2018-09-25] MEDS: BISACODYL (EC) 5 MG TAB PO PRN (08:22)
[2018-09-25] MEDS: FAMOTIDINE 20 MG TAB PO SCH (08:22)
[2018-09-25] MEDS: NYSTATIN 30 GM POWDER BTL TOP SCH ×2 (08:23→23:05)
[2018-09-25] MEDS: BALSAM PERU/CASTOR OIL 60 GM TUBE TOP SCH ×2 (08:23→23:06)
[2018-09-25] MEDS: ARTIFICIAL TEARS 15 ML OPH BOTH EYES SCH ×4 (08:23→21:00)
[2018-09-25] MEDS: DICLOFENAC SODIUM 1% GEL 100 GM TUBE TP SCH ×4 (08:23→23:06)
[2018-09-25] MEDS: HEPARIN 5,000 UNIT/1 ML VIAL SC SCH ×2 (08:25→23:04)
[2018-09-25] MEDS: MUPIROCIN 2% 22 GM OINT TOP SCH ×2 (08:26→23:06)
[2018-09-25] MEDS: LACTOBACILLUS RHAMNOSUS CAP PO SCH ×2 (08:27→23:00)
--- NOTE | 2018-09-25 11:32 | PN ---
Date/Time of Note Date/Time of Note DATE: 09/25/18 TIME: 11:30 Assessment/Plan VTE Prophylaxis Risk score (from Nsg)>0 risk: 6 SCD applied (from Nsg): Yes Pharmacological prophylaxis: heparin Lines/Catheters IV Catheter Type (from Nrsg): Mid Line Central line still needed: Yes Urinary Cath still in place: No Assessment/Plan Hospital Course 1. ckd, hyperkalemia 2. c diff hx 3. Opiates dependency 4. Morbid obesity. 5. Diabetes. 6. Hypertension, 7. Gout, hx 8. Neuropathy. 9. History of congestive heart failure. 10. weakness 11. deconditioning 12. Non compliance, pt refused Valtessa, HD 13. Left shoulder chronic pain. Xray was reviewed from the last visit, it is arthrosis left acromioclavicular joint 14. constipation 15. UTI 16. right arm Picc line is not functioning Assessment/Plan - HD was on 09/24 -change to cipro PO - Lactobacillus - cw with PT -- pt refused cortisone injection per ortho - Wound care - US with thrombosed graft - Ortho consult however patient refused a cortisone shot - avoid narcotics as it would limit her ability to walk for PT as it happened last admission since pts goal is Physical therapy - low k diet, cw lasix - ABX PER ID> on zyvox>FINISHED -Tylenol on as needed headache -dc veltassa as pt has been refusing it - warm compresses to shoulder -SNF with HD Subjective 24 Hr Interval Summary Musculoskeletal: restricted range of motion (right armis better) Exam/Review of Systems Vital Signs Vitals Vital Signs Date Temp Pulse Resp B/P (MAP) Pulse Ox O2 O2 Flow FiO2 Time Delivery Rate 09/25/18 97.7 82 20 156/92 97 02:15 (113) 09/23/18 Room Air 02:00 Intake and Output 09/24/18 09/24/18 09/25/18 1515:00 23:00 07:00 IntakeIntake Total 500 ml 250 ml BalanceBalance 500 ml 250 ml Exam right chest Permcath Constitutional: alert, oriented Neck: supple Respiratory: clear to auscultation Cardiovascular: regular rate and rhythm Gastrointestinal: soft WILLY MEDEIROS Sep 25, 2018 11:32
[2018-09-25] MEDS: ERGOCALCIFEROL 50,000 UNIT CAP PO SCH (12:24)
[2018-09-25] MEDS: GABAPENTIN 100 MG CAP PO PRN (12:24)
[2018-09-25] MEDS ORDERED: NA POLYST SULFON 15 GM/60 ML BTL PO ONE (17:00)
[2018-09-25] MEDS ORDERED: PATIROMER CALCIUM SORBITEX 8.4 GM PKT PO PRN (18:30)
[2018-09-25] MEDS: IBUPROFEN 400 MG TAB PO PRN (19:04)
[2018-09-25] MEDS ORDERED: ALTEPLASE (CATHFLO) 2 MG INJ CATHETER STA (21:05)
[2018-09-25] MEDS: DOCUSATE SODIUM 100 MG CAP PO PRN (23:12)
[2018-09-26] VITALS (18 sets, daily range): BP systolic 93–171; BP diastolic 58–100; PULSE 71–90; RESP 17–18
[2018-09-26] MEDS: traMADol 50 MG TAB PO PRN ×4 (01:32→21:40)
[2018-09-26] MEDS: ACCU-CHEK XX SCH (01:38)
[2018-09-26] MEDS: ACETAMINOPHEN 325 MG TAB PO PRN (04:57)
[2018-09-26] MEDS: INSULIN ASPART [NOVOLOG] 3 ML PEN SC SCH ×4 (07:50→21:00)
[2018-09-26] MEDS: FAMOTIDINE 20 MG TAB PO SCH (08:42)
[2018-09-26] MEDS: ALLOPURINOL 100 MG TAB PO SCH (08:42)
[2018-09-26] MEDS: ONDANSETRON 4 MG INJ IV PRN (08:42)
[2018-09-26] MEDS: LACTOBACILLUS RHAMNOSUS CAP PO SCH ×3 (08:42→21:18)
[2018-09-26] MEDS: BALSAM PERU/CASTOR OIL 60 GM TUBE TOP SCH ×2 (08:43→21:00)
[2018-09-26] MEDS: NYSTATIN 30 GM POWDER BTL TOP SCH ×2 (08:44→21:00)
[2018-09-26] MEDS: ARTIFICIAL TEARS 15 ML OPH BOTH EYES SCH ×4 (08:44→21:22)
[2018-09-26] MEDS: MUPIROCIN 2% 22 GM OINT TOP SCH ×2 (08:44→21:00)
[2018-09-26] MEDS: DICLOFENAC SODIUM 1% GEL 100 GM TUBE TP SCH ×4 (08:45→21:00)
[2018-09-26] MEDS: HEPARIN 5,000 UNIT/1 ML VIAL SC SCH ×2 (08:46→21:22)
[2018-09-26] MEDS: FUROSEMIDE 40 MG TAB PO SCH (08:56)
[2018-09-26] MEDS: IBUPROFEN 400 MG TAB PO PRN (13:09)
[2018-09-26] MEDS: GABAPENTIN 100 MG CAP PO PRN (13:09)
--- NOTE | 2018-09-26 13:22 | PN ---
Date/Time of Note Date/Time of Note DATE: 09/26/18 TIME: 13:21 Assessment/Plan VTE Prophylaxis Risk score (from Nsg)>0 risk: 8 SCD applied (from Ns): Yes Pharmacological prophylaxis: NA/contraindicated Pharm contraindication: low risk/ambulating Lines/Catheters IV Catheter Type (from Nrsg): Mid Line Urinary Cath still in place: No Assessment/Plan Hospital Course 58 y/o with 1. . ckd iii-iv now with the complications of hyperkalemia, patient has been refusing Kayexalate Veltassa has also been refusing dialysis, patient was explained the risks and consequences and patient completely understands the risks and consequences, now agreed, on and off Hd once a week 2. c diff hx 3. Chronic kidney disease, 4. Morbid obesity. 5. Diabetes. 6. Hypertension, 7. Gout.hx 8. Neuropathy. 9. History of congestive heart failure. 10 weakness 11 deconditioning 13 Left shoulde pain, TTP ? Frozen shoulder , shoulder impingement 14 s/p Fall ? AMS confusion likley due to UTI 15 uti klebsiella and enterococcus 16 diarrhea 15 vomtiing/? contipation> refuse labs again 16 Dizziness> chronic ? Postural 17 UTI Plan - HD today - ucx+ Enterobacter that is intermediately centrally sensitive to Cipro will start on cephalosporins -stool softners - Lactobacillus - cw with PT -- pt refused cortisone injecion per ortho - Wound care - US with thrombosed graft - Ortho consult however patient refused a cortisone shot - avoid narcotics as it would limit her ability to walk for PT as it happened last admission since pts goal is Physical therapy - low k diet, cw lasix - ABX PER ID> on zyvox>FINISHED -tyenolol on as needed headache -dc veltassa as pt has been refusing it - warm compresses to shoulder SNIF with HD ? SNIF VS HOME, Pt keep on changing, PER PT pt qaaulify for PT thrice a week and not everyday Result Diagram: 09/24/18 1118 09/26/18 1004 Results 24hrs Laboratory Tests Test 09/25/18 17:38 09/25/18 23:02 09/26/18 01:37 09/26/18 08:41 Bedside Glucose 101 190 164 113 Test 09/26/18 10:04 09/26/18 12:34 Sodium Level 141 Potassium Level 4.3 Chloride Level 98 Carbon Dioxide 34 H Level Anion Gap 9 Blood Urea 22 #H Nitrogen Creatinine 2.31 #H Est Glomerular 22 L Filtrat Rate mL/min Glucose Level 168 Calcium Level 8.5 Bedside Glucose 112 Subjective 24 Hr Interval Summary Free Text/Dictation Post HD today Exam/Review of Systems Vital Signs Vitals Vital Signs Date Temp Pulse Resp B/P (MAP) Pulse Ox O2 O2 Flow FiO2 Time Delivery Rate 09/26/18 88 18 141/90 99 Room Air 08:50 (107) 09/26/18 98.7 02:10 09/25/18 2.0 22:28 Intake and Output 09/25/18 09/25/18 09/26/18 1414:59 22:59 06:59 IntakeIntake Total 640 ml OutputOutput Total 400 ml 200 ml BalanceBalance 640 ml -400 ml -200 ml Exam elijah: supple. MORBIDY OBESE Respiratory: clear to auscultation Cardiovascular: regular rate and rhythm Gastrointestinal: soft Medications Medications Current Medications Acetaminophen (Tylenol Tab) 325 mg Q4H PRN PO MILD PAIN(1-3)OR ELEVATED TEMP Last administered on 08/14/18at 17:29; Admin Dose 325 MG; Start 07/20/18 at 23:00 Allopurinol (Zyloprim) 100 mg DAILY PO Last administered on 09/26/18at 08:42; Admin Dose 100 MG; Start 07/21/18 at 09:00 IV Flush (NS 3 ml) 3 ml PER PROTOCOL IV ; Start 07/20/18 at 23:00 Acetaminophen (Tylenol Tab) 650 mg Q6H PRN PO PAIN LEVEL 1-3 OR FEVER Last administered on 09/26/18at 04:57; Admin Dose 650 MG; Start 07/20/18 at 23:00 Acetaminophen (Tylenol Supp) 650 mg Q6H PRN [place] PAIN LEVEL 1-3 OR FEVER; Start 07/20/18 at 23:00 Docusate Sodium (Colace) 100 mg Q12H PRN PO CONSTIPATION Last administered on 09/25/18at 23:12; Admin Dose 100 MG; Start 07/20/18 at 23:00 Bisacodyl (Dulcolax) 5 mg DAILY PRN PO CONSTIPATION Last administered on 09/25/18at 08:22; Admin Dose 5 MG; Start 07/20/18 at 23:00 Diagnostic Test (Pha) (Accu-Chek) 1 ea 02 XX Last administered on 09/26/18at 01:38; Admin Dose 1 EA; Start 07/21/18 at 02:00 Insulin Aspart (Novolog Insulin Pen) NOVOLOG *MILD* ALGORITHM WITH MEALS BEDTIME SC Last administered on 09/25/18at 23:05; Admin Dose 1 UNIT; Start 07/21/18 at 07:50 Ergocalciferol (Drisdol) 50,000 unit Lacy@0900 PO Last administered on 09/25/18at 12:24; Admin Dose 50,000 UNIT; Start 07/24/18 at 09:00 Miscellaneous Information 1 ea NOTE XX ; Start 07/20/18 at 23:00 Glucose (Glutose) 15 gm Q15M PRN PO DECREASED GLUCOSE; Start 07/20/18 at 23:00 Glucose (Glutose) 22.5 gm Q15M PRN PO DECREASED GLUCOSE; Start 07/20/18 at 23:00 Dextrose (D50w Syringe) 25 ml Q15M PRN IV DECREASED GLUCOSE; Start 07/20/18 at 23:00 Dextrose (D50w Syringe) 50 ml Q15M PRN IV DECREASED GLUCOSE; Start 07/20/18 at 23:00 Glucagon (Glucagen) 1 mg Q15M PRN IM DECREASED GLUCOSE; Start 07/20/18 at 23:00 Glucose (Glutose) 15 gm Q15M PRN BUCCAL DECREASED GLUCOSE; Start 07/20/18 at 23:00 Melatonin (Melatonin) 3 mg HS PRN PO INSOMNIA Last administered on 09/24/18at 02:04; Admin Dose 3 MG; Start 07/20/18 at 23:00 Heparin Sodium (Porcine) (Heparin (5000 Units/1ml)) 5,000 unit Q12 SC Last administered on 09/26/18at 08:46; Admin Dose 5,000 UNIT; Start 07/21/18 at 21:00 Diclofenac Sodium (Voltaren 1% Gel) 2 gm QID TP Last administered on 09/26/18at 08:45; Admin Dose 2 GM; Start 07/22/18 at 13:00 Guaifenesin/ Dextromethorphan (Robitussin Dm Liquid Cup) 10 ml Q4H PRN PO COUGH; Start 07/30/18 at 15:00 Sodium Chloride (NS) -To prime the dialy... DIRECTED FOR HD PRN IV HD; Start 07/31/18 at 18:00 Loratadine (Claritin) 10 mg DAILY PRN PO ALLERGIC REACTION Last administered on 08/07/18 12:48; Admin Dose 10 MG; Start 08/07/18 at 12:30 Hydralazine HCl (Apresoline) 10 mg Q6H PRN PO ELEVATED BLOOD PRESSURE Last administered on 09/14/18 02:44; Admin Dose 10 MG; Start 08/08/18 at 04:30 Hydralazine HCl (Apresoline) 25 mg TID PO Last administered on 09/26/18 12:36; Admin Dose 25 MG; Start 08/08/18 at 13:00 Eye Lubricant (Artificial Tears Oph) 2 drop QID BOTH EYES Last administered on 09/26/18 08:44; Admin Dose 2 DROP; Start 08/09/18 at 11:00 Calcium Carbonate (Tums) 500 mg PRN PRN PO HEARTBURN Last administered on 09/22/18 02:35; Admin Dose 500 MG; Start 08/09/18 at 14:30 Famotidine (Pepcid) 20 mg DAILY PO Last administered on 09/26/18 08:42; Admin Dose 20 MG; Start 08/22/18 at 09:00 Loperamide HCl (Imodium Cap) 2 mg QID PRN PO DIARRHEA; Start 08/21/18 at 16:00 Lactobacillus Acidophilus/ Rhamnosus (Culturelle) 1 cap BID PO Last administered on 09/26/18 08:42; Admin Dose 1 CAP; Start 08/21/18 at 21:00 Nystatin (Nystatin Powder) 1 applic BID TOP Last administered on 09/26/18 08:44; Admin Dose 1 APPLIC; Start 08/28/18 at 21:00 Tramadol HCl (Ultram) 100 mg Q6H PRN PO PAIN LEVEL 6-10 Last administered on 09/26/18 09:08; Admin Dose 100 MG; Start 09/01/18 at 02:00 Ondansetron HCl (Zofran Tab) 4 mg Q6H PRN PO NAUSEA AND/OR VOMITING Last administered on 09/10/18 07:58; Admin Dose 4 MG; Start 09/03/18 at 16:00 Mupirocin (Bactroban) 1 applic BID TOP Last administered on 09/26/18 08:44; Admin Dose 1 APPLIC; Start 09/10/18 at 14:00 Al Hydrox/Mg Hydrox/Simethicone (Mag-Al Plus) 30 ml Q4H PRN PO GASTROINTESTINAL UPSET; Start 09/10/18 at 18:00 Albumin Human 50 ml @ 100 mls/hr WITH DIALYSIS PRN IV SBP<90; Start 09/16/18 at 18:00 Furosemide (Lasix) 40 mg DAILY PO Last administered on 09/26/18 08:56; Admin Dose 40 MG; Start 09/21/18 at 14:30 Heparin Sodium (Porcine) (Heparin (1000 Units/ml)) 4,000 unit AFTER DIALYSIS CATHETER Last administered on 09/26/18 09:15; Admin Dose 4,000 UNIT; Start 09/23/18 at 14:00 Ciprofloxacin (Cipro) 500 mg DAILY@0600 PO Last administered on 09/25/18 08:21; Admin Dose 500 MG; Start 09/25/18 at 06:00 Carbamide Peroxide (Debrox Otic) 3 drop BID PRN BOTH EARS EAR PAIN; Start 09/24/18 at 16:00 Ibuprofen (Motrin) 400 mg BID PRN PO MILD PAIN(1-3) OR TEMP>38C Last administered on 09/26/18 13:09; Admin Dose 400 MG; Start 09/24/18 at 16:00 Gabapentin (Neurontin) 100 mg DAILY PRN PO NEUROPATHIC PAIN Last administered on 09/26/18 13:09; Admin Dose 100 MG; Start 09/24/18 at 16:00 Ondansetron HCl (Zofran Inj) 4 mg Q6H PRN IV NAUSEA AND/OR VOMITING Last administered on 09/26/18 08:42; Admin Dose 4 MG; Start 09/26/18 at 07:30 KOFI SWANN MD Sep 26, 2018 13:22
[2018-09-26] MEDS: CEFEPIME 1GM/50 ML (PMX) 50 ML IVPB SCH (15:00)
[2018-09-26] MEDS: BISACODYL (EC) 5 MG TAB PO PRN (16:19)
[2018-09-27] MEDS: ACCU-CHEK XX SCH ×2 (02:00→22:51)
[2018-09-27 02:34] VITALS: BP 129/68; PULSE 76; RESP 19
[2018-09-27] MEDS: traMADol 50 MG TAB PO PRN ×3 (07:09→22:38)
[2018-09-27] MEDS: INSULIN ASPART [NOVOLOG] 3 ML PEN SC SCH ×4 (07:50→21:00)
[2018-09-27 08:01] VITALS: BP 111/70; PULSE 92; RESP 1; RESP 18
[2018-09-27] MEDS: LACTOBACILLUS RHAMNOSUS CAP PO SCH ×2 (09:00→21:00)
[2018-09-27] MEDS: BALSAM PERU/CASTOR OIL 60 GM TUBE TOP SCH ×2 (09:00→21:00)
[2018-09-27] MEDS: MUPIROCIN 2% 22 GM OINT TOP SCH ×2 (09:44→22:50)
[2018-09-27] MEDS: DICLOFENAC SODIUM 1% GEL 100 GM TUBE TP SCH ×4 (09:44→22:50)
[2018-09-27] MEDS: ARTIFICIAL TEARS 15 ML OPH BOTH EYES SCH ×4 (09:44→21:00)
[2018-09-27] MEDS: NYSTATIN 30 GM POWDER BTL TOP SCH ×2 (09:44→22:50)
[2018-09-27] MEDS: FAMOTIDINE 20 MG TAB PO SCH (09:45)
[2018-09-27] MEDS: ALLOPURINOL 100 MG TAB PO SCH (09:45)
[2018-09-27] MEDS: HEPARIN 5,000 UNIT/1 ML VIAL SC SCH ×2 (09:45→22:56)
[2018-09-27] MEDS: FUROSEMIDE 40 MG TAB PO SCH (09:45)
[2018-09-27 14:00] VITALS: BP 135/74; PULSE 81; RESP 18
[2018-09-27] MEDS: CEFEPIME 1GM/50 ML (PMX) 50 ML IVPB SCH (16:19)
--- NOTE | 2018-09-27 17:21 | PN ---
Date/Time of Note Date/Time of Note DATE: 09/27/18 TIME: 17:20 Assessment/Plan VTE Prophylaxis Risk score (from Ns)>0 risk: 7 SCD applied (from Ns): No SCD contraindicated: other Pharmacological prophylaxis: other Lines/Catheters IV Catheter Type (from Nrsg): Mid Line Urinary Cath still in place: No Assessment/Plan Hospital Course 1. . ckd on hd 2. c diff hx 3. Chronic kidney disease, 4. Morbid obesity. 5. Diabetes. 6. Hypertension, 7. Gout.hx 8. Neuropathy. 9. History of congestive heart failure. 10 weakness 11 deconditioning 13 Left shoulde pain, TTP ? Frozen shoulder , shoulder impingement 14 s/p Fall ? AMS confusion likley due to UTI 15 uti klebsiella and enterococcus hx 16 dyspepsia plan hd placement issue labs kub Result Diagram: 09/24/18 1118 09/26/18 1004 Results 24hrs Laboratory Tests Test 09/26/18 18:10 09/26/18 21:16 09/27/18 08:31 09/27/18 12:52 Bedside Glucose 163 122 123 152 Subjective 24 Hr Interval Summary Cardiovascular: no complaints Gastrointestinal: no complaints Exam/Review of Systems Vital Signs Vitals Vital Signs Date Temp Pulse Resp B/P (MAP) Pulse Ox O2 O2 Flow FiO2 Time Delivery Rate 09/27/18 97.0 92 1 111/70 94 Room Air 08:01 (84) 09/25/18 2.0 22:28 Intake and Output 09/26/18 09/26/18 09/27/18 1515:00 23:00 07:00 IntakeIntake Total 800 ml OutputOutput Total 200 ml 4 ml BalanceBalance -200 ml 796 ml Exam Neck: supple Respiratory: clear to auscultation Cardiovascular: regular rate and rhythm Gastrointestinal: soft, bowel sounds (+) Medications Medications Current Medications Acetaminophen (Tylenol Tab) 325 mg Q4H PRN PO MILD PAIN(1-3)OR ELEVATED TEMP Last administered on 08/14/18at 17:29; Admin Dose 325 MG; Start 07/20/18 at 23:00 Allopurinol (Zyloprim) 100 mg DAILY PO Last administered on 09/27/18at 09:45; Admin Dose 100 MG; Start 07/21/18 at 09:00 IV Flush (NS 3 ml) 3 ml PER PROTOCOL IV ; Start 07/20/18 at 23:00 Acetaminophen (Tylenol Tab) 650 mg Q6H PRN PO PAIN LEVEL 1-3 OR FEVER Last administered on 09/26/18at 04:57; Admin Dose 650 MG; Start 07/20/18 at 23:00 Acetaminophen (Tylenol Supp) 650 mg Q6H PRN MS PAIN LEVEL 1-3 OR FEVER; Start 07/20/18 at 23:00 Docusate Sodium (Colace) 100 mg Q12H PRN PO CONSTIPATION Last administered on 09/25/18at 23:12; Admin Dose 100 MG; Start 07/20/18 at 23:00 Bisacodyl (Dulcolax) 5 mg DAILY PRN PO CONSTIPATION Last administered on at 16:19; Admin Dose 5 MG; Start 07/20/18 at 23:00 Diagnostic Test (Pha) (Accu-Chek) 1 ea 02 XX Last administered on 09/26/18at 01:38; Admin Dose 1 EA; Start 07/21/18 at 02:00 Insulin Aspart (Novolog Insulin Pen) NOVOLOG *MILD* ALGORITHM WITH MEALS BEDTIME SC Last administered on 09/27/18at 13:22; Admin Dose 1 UNIT; Start 07/21/18 at 07:50 Ergocalciferol (Drisdol) 50,000 unit Lacy@0900 PO Last administered on 09/25/18at 12:24; Admin Dose 50,000 UNIT; Start 07/24/18 at 09:00 Miscellaneous Information 1 ea NOTE XX ; Start 07/20/18 at 23:00 Glucose (Glutose) 15 gm Q15M PRN PO DECREASED GLUCOSE; Start 07/20/18 at 23:00 Glucose (Glutose) 22.5 gm Q15M PRN PO DECREASED GLUCOSE; Start 07/20/18 at 23:00 Dextrose (D50w Syringe) 25 ml Q15M PRN IV DECREASED GLUCOSE; Start 07/20/18 at 23:00 Dextrose (D50w Syringe) 50 ml Q15M PRN IV DECREASED GLUCOSE; Start 07/20/18 at 23:00 Glucagon (Glucagen) 1 mg Q15M PRN IM DECREASED GLUCOSE; Start 07/20/18 at 23:00 Glucose (Glutose) 15 gm Q15M PRN BUCCAL DECREASED GLUCOSE; Start 07/20/18 at 23:00 Melatonin (Melatonin) 3 mg HS PRN PO INSOMNIA Last administered on 09/24/18 02:04; Admin Dose 3 MG; Start 07/20/18 at 23:00 Heparin Sodium (Porcine) (Heparin (5000 Units/1ml)) 5,000 unit Q12 SC Last administered on 09/27/18 09:45; Admin Dose 5,000 UNIT; Start 07/21/18 at 21:00 Diclofenac Sodium (Voltaren 1% Gel) 2 gm QID TP Last administered on 09/27/18 16:20; Admin Dose 2 GM; Start 07/22/18 at 13:00 Guaifenesin/ Dextromethorphan (Robitussin Dm Liquid Cup) 10 ml Q4H PRN PO COUGH; Start 07/30/18 at 15:00 Sodium Chloride (NS) -To prime the dialy... DIRECTED FOR HD PRN IV HD; Start 07/31/18 at 18:00 Loratadine (Claritin) 10 mg DAILY PRN PO ALLERGIC REACTION Last administered on 08/07/18at 12:48; Admin Dose 10 MG; Start 08/07/18 at 12:30 Hydralazine HCl (Apresoline) 10 mg Q6H PRN PO ELEVATED BLOOD PRESSURE Last administered on 09/14/18 02:44; Admin Dose 10 MG; Start 08/08/18 at 04:30 Hydralazine HCl (Apresoline) 25 mg TID PO Last administered on 09/27/18 13:25; Admin Dose 25 MG; Start 08/08/18 at 13:00 Eye Lubricant (Artificial Tears Oph) 2 drop QID BOTH EYES Last administered on 09/27/18 16:20; Admin Dose 2 DROP; Start 08/09/18 at 11:00 Calcium Carbonate (Tums) 500 mg PRN PRN PO HEARTBURN Last administered on 09/22/18 02:35; Admin Dose 500 MG; Start 08/09/18 at 14:30 Famotidine (Pepcid) 20 mg DAILY PO Last administered on 09/27/18 09:45; Admin Dose 20 MG; Start 08/22/18 at 09:00 Loperamide HCl (Imodium Cap) 2 mg QID PRN PO DIARRHEA; Start 08/21/18 at 16:00 Lactobacillus Acidophilus/ Rhamnosus (Culturelle) 1 cap BID PO Last administered on 09/26/18 08:42; Admin Dose 1 CAP; Start 08/21/18 at 21:00 Nystatin (Nystatin Powder) 1 applic BID TOP Last administered on 09/27/18 09:44; Admin Dose 1 APPLIC; Start 08/28/18 at 21:00 Tramadol HCl (Ultram) 100 mg Q6H PRN PO PAIN LEVEL 6-10 Last administered on 09/27/18 16:19; Admin Dose 100 MG; Start 09/01/18 at 02:00 Ondansetron HCl (Zofran Tab) 4 mg Q6H PRN PO NAUSEA AND/OR VOMITING Last administered on 09/10/18 07:58; Admin Dose 4 MG; Start 09/03/18 at 16:00 Mupirocin (Bactroban) 1 applic BID TOP Last administered on 09/27/18 09:44; Admin Dose 1 APPLIC; Start 09/10/18 at 14:00 Al Hydrox/Mg Hydrox/Simethicone (Mag-Al Plus) 30 ml Q4H PRN PO GASTROINTESTINAL UPSET; Start 09/10/18 at 18:00 Albumin Human 50 ml @ 100 mls/hr WITH DIALYSIS PRN IV SBP<90; Start 09/16/18 at 18:00 Furosemide (Lasix) 40 mg DAILY PO Last administered on 09/27/18 09:45; Admin Dose 40 MG; Start 09/21/18 at 14:30 Heparin Sodium (Porcine) (Heparin (1000 Units/ml)) 4,000 unit AFTER DIALYSIS CATHETER Last administered on 09/26/18 09:15; Admin Dose 4,000 UNIT; Start 09/23/18 at 14:00 Carbamide Peroxide (Debrox Otic) 3 drop BID PRN BOTH EARS EAR PAIN; Start 09/24/18 at 16:00 Ibuprofen (Motrin) 400 mg BID PRN PO MILD PAIN(1-3) OR TEMP>38C Last administered on 09/26/18 13:09; Admin Dose 400 MG; Start 09/24/18 at 16:00 Ondansetron HCl (Zofran Inj) 4 mg Q6H PRN IV NAUSEA AND/OR VOMITING Last administered on 09/26/18 08:42; Admin Dose 4 MG; Start 09/26/18 at 07:30 Cefepime HCl 50 ml @ 100 mls/hr Q24H IVPB Last administered on 09/27/18at 16:19; Admin Dose 100 MLS/HR; Start 09/26/18 at 15:00 Gabapentin (Neurontin) 100 mg BID PRN PO NEUROPATHIC PAIN; Start 09/27/18 at 21:00 Lactobacillus Acidophilus (Florajen3 Capsule) 1 each BID PO ; Start 09/27/18 at 21:00 Psyllium Hydrophilic Mucilloid (Metamucil (Sugar Free)) 1 pkt BID PO ; Start 09/27/18 at 21:00 BRIAN ROBLEDO MD Sep 27, 2018 17:21
[2018-09-27] MEDS: IBUPROFEN 400 MG TAB PO PRN (18:52)
[2018-09-27] MEDS: BISACODYL (EC) 5 MG TAB PO PRN (18:53)
[2018-09-27 20:25] VITALS: BP 94/45; PULSE 90; RESP 19
[2018-09-27] MEDS: PSYLLIUM (SUGAR FREE) PACKET PO SCH (21:00)
[2018-09-27] MEDS: L ACIDOPHIL/B LACTIS/B LONGUM CAPSULE PO SCH (21:00)
[2018-09-27] MEDS: MELATONIN 3 MG TABLET PO PRN (22:37)
[2018-09-27] MEDS: GABAPENTIN 100 MG CAP PO PRN (22:41)
[2018-09-28 02:48] VITALS: BP 112/71; PULSE 84; RESP 18
[2018-09-28] MEDS: traMADol 50 MG TAB PO PRN ×4 (05:17→23:27)
[2018-09-28] MEDS: IBUPROFEN 400 MG TAB PO PRN ×2 (07:44→21:40)
[2018-09-28 08:07] VITALS: BP 129/82; PULSE 95; RESP 19
[2018-09-28] MEDS: PSYLLIUM (SUGAR FREE) PACKET PO SCH ×2 (08:49→21:00)
[2018-09-28] MEDS: LACTOBACILLUS RHAMNOSUS CAP PO SCH ×2 (08:50→21:39)
[2018-09-28] MEDS: L ACIDOPHIL/B LACTIS/B LONGUM CAPSULE PO SCH ×2 (08:50→21:00)
[2018-09-28] MEDS: MUPIROCIN 2% 22 GM OINT TOP SCH ×2 (08:52→21:40)
[2018-09-28] MEDS: BALSAM PERU/CASTOR OIL 60 GM TUBE TOP SCH ×2 (08:53→21:41)
[2018-09-28] MEDS: DICLOFENAC SODIUM 1% GEL 100 GM TUBE TP SCH ×4 (08:53→21:41)
[2018-09-28] MEDS: ARTIFICIAL TEARS 15 ML OPH BOTH EYES SCH ×4 (09:00→21:41)
[2018-09-28] MEDS: NYSTATIN 30 GM POWDER BTL TOP SCH ×2 (09:00→21:40)
[2018-09-28] MEDS: FUROSEMIDE 40 MG TAB PO SCH (09:03)
[2018-09-28] MEDS: ALLOPURINOL 100 MG TAB PO SCH (09:03)
[2018-09-28] MEDS: FAMOTIDINE 20 MG TAB PO SCH (09:04)
[2018-09-28] MEDS: HEPARIN 5,000 UNIT/1 ML VIAL SC SCH ×2 (09:05→21:46)
[2018-09-28] MEDS: INSULIN ASPART [NOVOLOG] 3 ML PEN SC SCH ×4 (09:06→21:45)
[2018-09-28 12:28] VITALS: BP 127/60; PULSE 72; RESP 19
--- NOTE | 2018-09-28 12:34 | PN ---
Date/Time of Note Date/Time of Note DATE: 09/28/18 TIME: 12:33 Assessment/Plan VTE Prophylaxis Risk score (from Nsg)>0 risk: 5 SCD applied (from Ns): No SCD contraindicated: low risk/ambulating Pharmacological prophylaxis: NA/contraindicated, heparin Pharm contraindication: low risk/ambulating Lines/Catheters IV Catheter Type (from Nrsg): Mid Line Urinary Cath still in place: No Assessment/Plan Hospital Course 58 y/o with 1. . ckd iii-iv now with the complications of hyperkalemia, patient has been refusing Kayexalate Veltaastrida has also been refusing dialysis, patient was explained the risks and consequences and patient completely understands the risks and consequences, now agreed, on and off Hd once a week 2. c diff hx 3. Chronic kidney disease, 4. Morbid obesity. 5. Diabetes. 6. Hypertension, 7. Gout.hx 8. Neuropathy. 9. History of congestive heart failure. 10 weakness 11 deconditioning 13 Left shoulde pain, TTP ? Frozen shoulder , shoulder impingement 14 s/p Fall ? AMS confusion likley due to UTI 15 uti klebsiella and enterococcus 16 diarrhea 15 vomtiing/? contipation> refuse labs again 16 Dizziness> chronic ? Postural 17 UTI Plan - HD today - ucx+ Enterobacter that is intermediately centrally sensitive to Cipro will start on cephalosporins, pt refused -stool softners - Lactobacillus - cw with PT -- pt refused cortisone injecion per ortho - Wound care - US with thrombosed graft - Ortho consult however patient refused a cortisone shot - avoid narcotics as it would limit her ability to walk for PT as it happened last admission since pts goal is Physical therapy - low k diet, cw lasix -tyenolol on as needed headache - warm compresses to shoulder SNIF with HD ? SNIF VS HOME, Pt keep on changing, PER PT pt qaaulify for PT thrice a week and not everyday. dc home with home PT/ hd when arrnanged Result Diagram: 09/24/18 1118 09/26/18 1004 Results 24hrs Laboratory Tests Test 09/27/18 12:52 09/27/18 17:26 09/27/18 22:46 09/28/18 08:59 Bedside Glucose 152 134 131 165 Subjective 24 Hr Interval Summary Free Text/Dictation refusing abx kub neg Exam/Review of Systems Vital Signs Vitals Vital Signs Date Temp Pulse Resp B/P (MAP) Pulse Ox O2 O2 Flow FiO2 Time Delivery Rate 09/28/18 72 19 127/60 96 12:28 (82) 09/28/18 98.2 08:07 09/27/18 Room Air 14:00 09/25/18 2.0 22:28 Intake and Output 09/27/18 09/27/18 09/28/18 1515:00 23:00 07:00 IntakeIntake Total 100 ml 500 ml BalanceBalance 100 ml 500 ml Exam Exam elijah: supple. MORBIDY OBESE Respiratory: clear to auscultation Cardiovascular: regular rate and rhythm Gastrointestinal: soft Medications Medications Medications Current Medications Acetaminophen (Tylenol Tab) 325 mg Q4H PRN PO MILD PAIN(1-3)OR ELEVATED TEMP Last administered on 08/14/18at 17:29; Admin Dose 325 MG; Start 07/20/18 at 23:00 Allopurinol (Zyloprim) 100 mg DAILY PO Last administered on 09/28/18at 09:03; Admin Dose 100 MG; Start 07/21/18 at 09:00 IV Flush (NS 3 ml) 3 ml PER PROTOCOL IV ; Start 07/20/18 at 23:00 Acetaminophen (Tylenol Tab) 650 mg Q6H PRN PO PAIN LEVEL 1-3 OR FEVER Last administered on 09/26/18at 04:57; Admin Dose 650 MG; Start 07/20/18 at 23:00 Acetaminophen (Tylenol Supp) 650 mg Q6H PRN [place] PAIN LEVEL 1-3 OR FEVER; Start 07/20/18 at 23:00 Docusate Sodium (Colace) 100 mg Q12H PRN PO CONSTIPATION Last administered on 09/25/18at 23:12; Admin Dose 100 MG; Start 07/20/18 at 23:00 Bisacodyl (Dulcolax) 5 mg DAILY PRN PO CONSTIPATION Last administered on 09/27/18at 18:53; Admin Dose 5 MG; Start 07/20/18 at 23:00 Diagnostic Test (Pha) (Accu-Chek) 1 ea 02 XX Last administered on 09/26/18at 01:38; Admin Dose 1 EA; Start 07/21/18 at 02:00 Insulin Aspart (Novolog Insulin Pen) NOVOLOG *MILD* ALGORITHM WITH MEALS BEDTIME SC Last administered on 09/28/18at 09:06; Admin Dose 1 UNIT; Start at 07:50 Ergocalciferol (Drisdol) 50,000 unit Lacy@0900 PO Last administered on 09/25/18at 12:24; Admin Dose 50,000 UNIT; Start 07/24/18 at 09:00 Miscellaneous Information 1 ea NOTE XX ; Start 07/20/18 at 23:00 Glucose (Glutose) 15 gm Q15M PRN PO DECREASED GLUCOSE; Start 07/20/18 at 23:00 Glucose (Glutose) 22.5 gm Q15M PRN PO DECREASED GLUCOSE; Start 07/20/18 at 23:00 Dextrose (D50w Syringe) 25 ml Q15M PRN IV DECREASED GLUCOSE; Start 07/20/18 at 23:00 Dextrose (D50w Syringe) 50 ml Q15M PRN IV DECREASED GLUCOSE; Start 07/20/18 at 23:00 Glucagon (Glucagen) 1 mg Q15M PRN IM DECREASED GLUCOSE; Start 07/20/18 at 23:00 Glucose (Glutose) 15 gm Q15M PRN BUCCAL DECREASED GLUCOSE; Start 07/20/18 at 23:00 Melatonin (Melatonin) 3 mg HS PRN PO INSOMNIA Last administered on 09/27/18at 22:37; Admin Dose 3 MG; Start 07/20/18 at 23:00 Heparin Sodium (Porcine) (Heparin (5000 Units/1ml)) 5,000 unit Q12 SC Last administered on 09/28/18at 09:05; Admin Dose 5,000 UNIT; Start 07/21/18 at 21:00 Diclofenac Sodium (Voltaren 1% Gel) 2 gm QID TP Last administered on 09/27/18at 22:50; Admin Dose 2 GM; Start 07/22/18 at 13:00 Guaifenesin/ Dextromethorphan (Robitussin Dm Liquid Cup) 10 ml Q4H PRN PO COUGH; Start 07/30/18 at 15:00 Sodium Chloride (NS) -To prime the dialy... DIRECTED FOR HD PRN IV HD; Start 07/31/18 at 18:00 Loratadine (Claritin) 10 mg DAILY PRN PO ALLERGIC REACTION Last administered on 08/07/18at 12:48; Admin Dose 10 MG; Start 08/07/18 at 12:30 Hydralazine HCl (Apresoline) 10 mg Q6H PRN PO ELEVATED BLOOD PRESSURE Last administered on 09/14/18 02:44; Admin Dose 10 MG; Start 08/08/18 at 04:30 Hydralazine HCl (Apresoline) 25 mg TID PO Last administered on 09/28/18 09:08; Admin Dose 25 MG; Start 08/08/18 at 13:00 Eye Lubricant (Artificial Tears Oph) 2 drop QID BOTH EYES Last administered on 09/27/18 16:20; Admin Dose 2 DROP; Start 08/09/18 at 11:00 Calcium Carbonate (Tums) 500 mg PRN PRN PO HEARTBURN Last administered on 09/22/18 02:35; Admin Dose 500 MG; Start 08/09/18 at 14:30 Famotidine (Pepcid) 20 mg DAILY PO Last administered on 09/28/18 09:04; Admin Dose 20 MG; Start 08/22/18 at 09:00 Loperamide HCl (Imodium Cap) 2 mg QID PRN PO DIARRHEA; Start 08/21/18 at 16:00 Lactobacillus Acidophilus/ Rhamnosus (Culturelle) 1 cap BID PO Last administered on 09/26/18 08:42; Admin Dose 1 CAP; Start 08/21/18 at 21:00 Nystatin (Nystatin Powder) 1 applic BID TOP Last administered on 09/28/18 09:00; Admin Dose 1 APPLIC; Start 08/28/18 at 21:00 Tramadol HCl (Ultram) 100 mg Q6H PRN PO PAIN LEVEL 6-10 Last administered on 09/28/18 11:11; Admin Dose 100 MG; Start 09/01/18 at 02:00 Ondansetron HCl (Zofran Tab) 4 mg Q6H PRN PO NAUSEA AND/OR VOMITING Last administered on 09/10/18 07:58; Admin Dose 4 MG; Start 09/03/18 at 16:00 Mupirocin (Bactroban) 1 applic BID TOP Last administered on 09/27/18 22:50; Admin Dose 1 APPLIC; Start 09/10/18 at 14:00 Al Hydrox/Mg Hydrox/Simethicone (Mag-Al Plus) 30 ml Q4H PRN PO GASTROINTESTINAL UPSET; Start 09/10/18 at 18:00 Albumin Human 50 ml @ 100 mls/hr WITH DIALYSIS PRN IV SBP<90; Start 09/16/18 at 18:00 Furosemide (Lasix) 40 mg DAILY PO Last administered on 09/28/18at 09:03; Admin Dose 40 MG; Start 09/21/18 at 14:30 Heparin Sodium (Porcine) (Heparin (1000 Units/ml)) 4,000 unit AFTER DIALYSIS CATHETER Last administered on 09/26/18at 09:15; Admin Dose 4,000 UNIT; Start 09/23/18 at 14:00 Carbamide Peroxide (Debrox Otic) 3 drop BID PRN BOTH EARS EAR PAIN; Start 09/24/18 at 16:00 Ibuprofen (Motrin) 400 mg BID PRN PO MILD PAIN(1-3) OR TEMP>38C Last administered on 09/28/18at 07:44; Admin Dose 400 MG; Start 09/24/18 at 16:00 Ondansetron HCl (Zofran Inj) 4 mg Q6H PRN IV NAUSEA AND/OR VOMITING Last administered on 09/26/18at 08:42; Admin Dose 4 MG; Start 09/26/18 at 07:30 Cefepime HCl 50 ml @ 100 mls/hr Q24H IVPB Last administered on 09/27/18at 16:19; Admin Dose 100 MLS/HR; Start 09/26/18 at 15:00 Gabapentin (Neurontin) 100 mg BID PRN PO NEUROPATHIC PAIN Last administered on 09/27/18at 22:41; Admin Dose 100 MG; Start 09/27/18 at 21:00 Lactobacillus Acidophilus (Florajen3 Capsule) 1 each BID PO ; Start 09/27/18 at 21:00 Psyllium Hydrophilic Mucilloid (Metamucil (Sugar Free)) 1 pkt BID PO ; Start 09/27/18 at 21:00 KOFI SWANN MD Sep 28, 2018 12:34
[2018-09-28] MEDS: CEFEPIME 1GM/50 ML (PMX) 50 ML IVPB SCH (15:00)
[2018-09-28 19:45] VITALS: BP 131/59; PULSE 93; RESP 20
[2018-09-28] MEDS: GABAPENTIN 100 MG CAP PO PRN (21:38)
[2018-09-28] MEDS: MELATONIN 3 MG TABLET PO PRN (23:27)
[2018-09-29 02:00] VITALS: BP 105/50; PULSE 87; RESP 20
[2018-09-29] MEDS: ACCU-CHEK XX SCH ×2 (02:06→21:47)
[2018-09-29] MEDS: traMADol 50 MG TAB PO PRN ×3 (06:13→20:22)
[2018-09-29 07:55] VITALS: BP 95/70; PULSE 77; RESP 19
[2018-09-29] MEDS: BISACODYL (EC) 5 MG TAB PO PRN (08:24)
[2018-09-29] MEDS: GABAPENTIN 100 MG CAP PO PRN ×2 (08:24→17:22)
[2018-09-29] MEDS: ALLOPURINOL 100 MG TAB PO SCH (08:24)
[2018-09-29] MEDS: FAMOTIDINE 20 MG TAB PO SCH (08:24)
[2018-09-29] MEDS: IBUPROFEN 400 MG TAB PO PRN ×2 (08:25→17:20)
[2018-09-29] MEDS: L ACIDOPHIL/B LACTIS/B LONGUM CAPSULE PO SCH ×2 (08:27→21:02)
[2018-09-29] MEDS: ARTIFICIAL TEARS 15 ML OPH BOTH EYES SCH ×4 (08:27→20:57)
[2018-09-29] MEDS: LACTOBACILLUS RHAMNOSUS CAP PO SCH ×2 (08:27→20:54)
[2018-09-29] MEDS: FUROSEMIDE 40 MG TAB PO SCH (08:27)
[2018-09-29 08:35] VITALS: BP 127/78
[2018-09-29] MEDS: INSULIN ASPART [NOVOLOG] 3 ML PEN SC SCH ×4 (08:42→21:00)
[2018-09-29] MEDS: HEPARIN 5,000 UNIT/1 ML VIAL SC SCH ×2 (08:42→20:56)
[2018-09-29] MEDS: BALSAM PERU/CASTOR OIL 60 GM TUBE TOP SCH ×2 (08:45→21:00)
[2018-09-29] MEDS: MUPIROCIN 2% 22 GM OINT TOP SCH ×2 (08:45→20:58)
[2018-09-29] MEDS: NYSTATIN 30 GM POWDER BTL TOP SCH ×2 (08:45→20:58)
[2018-09-29] MEDS: DICLOFENAC SODIUM 1% GEL 100 GM TUBE TP SCH ×4 (08:47→20:57)
[2018-09-29] MEDS: PSYLLIUM (SUGAR FREE) PACKET PO SCH ×2 (08:48→21:00)
[2018-09-29 13:11] VITALS: BP 108/54; PULSE 82
--- NOTE | 2018-09-29 15:23 | PN ---
Date/Time of Note Date/Time of Note DATE: 09/29/18 TIME: 15:23 Assessment/Plan VTE Prophylaxis Risk score (from Nsg)>0 risk: 5 SCD applied (from Ns): No SCD contraindicated: low risk/ambulating Pharmacological prophylaxis: NA/contraindicated Pharm contraindication: low risk/ambulating Lines/Catheters IV Catheter Type (from Nrsg): Mid Line Urinary Cath still in place: No Assessment/Plan Hospital Course 58 y/o with 1. . ckd iii-iv now with the complications of hyperkalemia, patient has been refusing Kayexalate Veltaastrida has also been refusing dialysis, patient was explained the risks and consequences and patient completely understands the risks and consequences, now agreed, on and off Hd once a week 2. c diff hx 3. Chronic kidney disease, 4. Morbid obesity. 5. Diabetes. 6. Hypertension, 7. Gout.hx 8. Neuropathy. 9. History of congestive heart failure. 10 weakness 11 deconditioning 13 Left shoulde pain, TTP ? Frozen shoulder , shoulder impingement 14 s/p Fall ? AMS confusion likley due to UTI 15 uti klebsiella and enterococcus 16 diarrhea 15 vomtiing/? contipation> refuse labs again 16 Dizziness> chronic ? Postural 17 UTI Plan - HD once a week - ucx+ Enterobacter that is intermediately centrally sensitive to Cipro will start on cephalosporins, pt refused -stool softners - Lactobacillus - cw with PT -- pt refused cortisone injecion per ortho - Wound care - US with thrombosed graft - Ortho consult however patient refused a cortisone shot - avoid narcotics as it would limit her ability to walk for PT as it happened last admission since pts goal is Physical therapy - low k diet, cw lasix -tyenolol on as needed headache - warm compresses to shoulder SNIF with HD Pt has been refusing things, giving bad comments to me, nursng staff and complaining about everything, explained to her about her disease/condition and treatment and she wants things her own ways Result Diagram: 09/26/18 1004 Results 24hrs Laboratory Tests Test 09/28/18 18:03 09/28/18 21:23 09/29/18 02:03 09/29/18 08:20 Bedside Glucose 174 189 142 145 Test 09/29/18 13:03 Bedside Glucose 145 Subjective 24 Hr Interval Summary Free Text/Dictation pt is very rude , agitated gives ugly comments in front of family members Explained to her about her disease, diagnosis and treatment but wants to belief things in her own ways , refusing meds, treatment Exam/Review of Systems Vital Signs Vitals Vital Signs Date Temp Pulse Resp B/P (MAP) Pulse Ox O2 O2 Flow FiO2 Time Delivery Rate 09/29/18 82 108/54 13:11 (72) 09/29/18 98.2 19 96 07:55 09/27/18 Room Air 14:00 09/25/18 2.0 22:28 Intake and Output 09/28/18 09/28/18 09/29/18 1515:00 23:00 07:00 IntakeIntake Total 320 ml OutputOutput Total 2 ml BalanceBalance 318 ml Exam elijah: supple. MORBIDY OBESE Respiratory: clear to auscultation Cardiovascular: regular rate and rhythm Gastrointestinal: soft Medications Medications Current Medications Acetaminophen (Tylenol Tab) 325 mg Q4H PRN PO MILD PAIN(1-3)OR ELEVATED TEMP Last administered on 08/14/18at 17:29; Admin Dose 325 MG; Start 07/20/18 at 23:00 Allopurinol (Zyloprim) 100 mg DAILY PO Last administered on 09/29/18at 08:24; Admin Dose 100 MG; Start 07/21/18 at 09:00 IV Flush (NS 3 ml) 3 ml PER PROTOCOL IV ; Start 07/20/18 at 23:00 Acetaminophen (Tylenol Tab) 650 mg Q6H PRN PO PAIN LEVEL 1-3 OR FEVER Last administered on 09/26/18at 04:57; Admin Dose 650 MG; Start 07/20/18 at 23:00 Acetaminophen (Tylenol Supp) 650 mg Q6H PRN [place] PAIN LEVEL 1-3 OR FEVER; Start 07/20/18 at 23:00 Docusate Sodium (Colace) 100 mg Q12H PRN PO CONSTIPATION Last administered on 09/25/18at 23:12; Admin Dose 100 MG; Start 07/20/18 at 23:00 Bisacodyl (Dulcolax) 5 mg DAILY PRN PO CONSTIPATION Last administered on 09/29/18at 08:24; Admin Dose 5 MG; Start 07/20/18 at 23:00 Diagnostic Test (Pha) (Accu-Chek) 1 ea 02 XX Last administered on 09/29/18at 02:06; Admin Dose 1 EA; Start 07/21/18 at 02:00 Insulin Aspart (Novolog Insulin Pen) NOVOLOG *MILD* ALGORITHM WITH MEALS BEDTIME SC Last administered on 09/29/18at 13:06; Admin Dose 1 UNIT; Start 07/21/18 at 07:50 Ergocalciferol (Drisdol) 50,000 unit Lacy@0900 PO Last administered on 09/25/18at 12:24; Admin Dose 50,000 UNIT; Start 07/24/18 at 09:00 Miscellaneous Information 1 ea NOTE XX ; Start 07/20/18 at 23:00 Glucose (Glutose) 15 gm Q15M PRN PO DECREASED GLUCOSE; Start 07/20/18 at 23:00 Glucose (Glutose) 22.5 gm Q15M PRN PO DECREASED GLUCOSE; Start 07/20/18 at 23:00 Dextrose (D50w Syringe) 25 ml Q15M PRN IV DECREASED GLUCOSE; Start 07/20/18 at 23:00 Dextrose (D50w Syringe) 50 ml Q15M PRN IV DECREASED GLUCOSE; Start 07/20/18 at 23:00 Glucagon (Glucagen) 1 mg Q15M PRN IM DECREASED GLUCOSE; Start 07/20/18 at 23:00 Glucose (Glutose) 15 gm Q15M PRN BUCCAL DECREASED GLUCOSE; Start 07/20/18 at 23:00 Melatonin (Melatonin) 3 mg HS PRN PO INSOMNIA Last administered on 09/28/18at 23:27; Admin Dose 3 MG; Start 07/20/18 at 23:00 Heparin Sodium (Porcine) (Heparin (5000 Units/1ml)) 5,000 unit Q12 SC Last administered on 09/29/18at 08:42; Admin Dose 5,000 UNIT; Start 07/21/18 at 21:00 Diclofenac Sodium (Voltaren 1% Gel) 2 gm QID TP Last administered on 09/29/18at 08:47; Admin Dose 2 GM; Start 07/22/18 at 13:00 Guaifenesin/ Dextromethorphan (Robitussin Dm Liquid Cup) 10 ml Q4H PRN PO COUGH; Start 07/30/18 at 15:00 Sodium Chloride (NS) -To prime the dialy... DIRECTED FOR HD PRN IV HD; Start 07/31/18 at 18:00 Loratadine (Claritin) 10 mg DAILY PRN PO ALLERGIC REACTION Last administered on 08/07/18 12:48; Admin Dose 10 MG; Start 08/07/18 at 12:30 Hydralazine HCl (Apresoline) 10 mg Q6H PRN PO ELEVATED BLOOD PRESSURE Last administered on 09/14/18 02:44; Admin Dose 10 MG; Start 08/08/18 at 04:30 Hydralazine HCl (Apresoline) 25 mg TID PO Last administered on 09/29/18 08:30; Admin Dose 25 MG; Start 08/08/18 at 13:00 Eye Lubricant (Artificial Tears Oph) 2 drop QID BOTH EYES Last administered on 09/28/18 21:41; Admin Dose 2 DROP; Start 08/09/18 at 11:00 Calcium Carbonate (Tums) 500 mg PRN PRN PO HEARTBURN Last administered on 09/22/18 02:35; Admin Dose 500 MG; Start 08/09/18 at 14:30 Famotidine (Pepcid) 20 mg DAILY PO Last administered on 09/29/18 08:24; Admin Dose 20 MG; Start 08/22/18 at 09:00 Loperamide HCl (Imodium Cap) 2 mg QID PRN PO DIARRHEA; Start 08/21/18 at 16:00 Lactobacillus Acidophilus/ Rhamnosus (Culturelle) 1 cap BID PO Last administered on 09/28/18 21:39; Admin Dose 1 CAP; Start 08/21/18 at 21:00 Nystatin (Nystatin Powder) 1 applic BID TOP Last administered on 09/28/18 21:40; Admin Dose 1 APPLIC; Start 08/28/18 at 21:00 Tramadol HCl (Ultram) 100 mg Q6H PRN PO PAIN LEVEL 6-10 Last administered on 09/29/18 13:08; Admin Dose 100 MG; Start 09/01/18 at 02:00 Ondansetron HCl (Zofran Tab) 4 mg Q6H PRN PO NAUSEA AND/OR VOMITING Last administered on 09/10/18 07:58; Admin Dose 4 MG; Start 09/03/18 at 16:00 Mupirocin (Bactroban) 1 applic BID TOP Last administered on 09/28/18at 21:40; Admin Dose 1 APPLIC; Start 09/10/18 at 14:00 Al Hydrox/Mg Hydrox/Simethicone (Mag-Al Plus) 30 ml Q4H PRN PO GASTROINTESTINAL UPSET; Start 09/10/18 at 18:00 Albumin Human 50 ml @ 100 mls/hr WITH DIALYSIS PRN IV SBP<90; Start 09/16/18 at 18:00 Furosemide (Lasix) 40 mg DAILY PO Last administered on 09/29/18at 08:27; Admin Dose 40 MG; Start 09/21/18 at 14:30 Heparin Sodium (Porcine) (Heparin (1000 Units/ml)) 4,000 unit AFTER DIALYSIS CATHETER Last administered on 09/26/18at 09:15; Admin Dose 4,000 UNIT; Start 1 11/24/17 at 14:00 Carbamide Peroxide (Debrox Otic) 3 drop BID PRN BOTH EARS EAR PAIN; Start 09/24/18 at 16:00 Ibuprofen (Motrin) 400 mg BID PRN PO MILD PAIN(1-3) OR TEMP>38C Last administered on 09/29/18at 08:25; Admin Dose 400 MG; Start 09/24/18 at 16:00 Ondansetron HCl (Zofran Inj) 4 mg Q6H PRN IV NAUSEA AND/OR VOMITING Last administered on 09/26/18at 08:42; Admin Dose 4 MG; Start 09/26/18 at 07:30 Gabapentin (Neurontin) 100 mg BID PRN PO NEUROPATHIC PAIN Last administered on 09/29/18at 08:24; Admin Dose 100 MG; Start 09/27/18 at 21:00 Lactobacillus Acidophilus (Florajen3 Capsule) 1 each BID PO ; Start 09/27/18 at 21:00 Psyllium Hydrophilic Mucilloid (Metamucil (Sugar Free)) 1 pkt BID PO ; Start 09/27/18 at 21:00 KOFI SWANN MD Sep 29, 2018 15:23
[2018-09-29 20:30] VITALS: BP 106/62; PULSE 80; RESP 18
[2018-09-29] MEDS: DOCUSATE SODIUM 100 MG CAP PO PRN (21:04)
[2018-09-30] MEDS: MELATONIN 3 MG TABLET PO PRN (00:46)
[2018-09-30] MEDS: IBUPROFEN 400 MG TAB PO PRN ×3 (00:47→21:45)
[2018-09-30 02:19] VITALS: BP 104/57; PULSE 86; RESP 18
[2018-09-30] MEDS: traMADol 50 MG TAB PO PRN ×3 (06:06→17:14)
[2018-09-30 07:32] VITALS: PULSE 84; RESP 19
[2018-09-30 08:00] VITALS: BP 133/76
[2018-09-30] MEDS: ARTIFICIAL TEARS 15 ML OPH BOTH EYES SCH ×4 (08:48→21:32)
[2018-09-30] MEDS: BISACODYL (EC) 5 MG TAB PO PRN (08:50)
[2018-09-30] MEDS: FAMOTIDINE 20 MG TAB PO SCH (08:50)
[2018-09-30] MEDS: LACTOBACILLUS RHAMNOSUS CAP PO SCH ×2 (08:51→21:30)
[2018-09-30] MEDS: ALLOPURINOL 100 MG TAB PO SCH (08:52)
[2018-09-30] MEDS: L ACIDOPHIL/B LACTIS/B LONGUM CAPSULE PO SCH ×2 (08:52→21:00)
[2018-09-30] MEDS: PSYLLIUM (SUGAR FREE) PACKET PO SCH ×2 (08:52→21:00)
[2018-09-30] MEDS: MUPIROCIN 2% 22 GM OINT TOP SCH ×2 (08:53→21:32)
[2018-09-30] MEDS: DICLOFENAC SODIUM 1% GEL 100 GM TUBE TP SCH ×4 (08:53→21:32)
[2018-09-30] MEDS: FUROSEMIDE 40 MG TAB PO SCH (08:53)
[2018-09-30] MEDS: NYSTATIN 30 GM POWDER BTL TOP SCH ×2 (08:53→21:32)
[2018-09-30] MEDS: BALSAM PERU/CASTOR OIL 60 GM TUBE TOP SCH ×2 (08:54→21:33)
[2018-09-30] MEDS: INSULIN ASPART [NOVOLOG] 3 ML PEN SC SCH ×4 (08:56→21:00)
[2018-09-30] MEDS: HEPARIN 5,000 UNIT/1 ML VIAL SC SCH ×2 (08:57→21:38)
[2018-09-30] MEDS: GABAPENTIN 100 MG CAP PO PRN (15:10)
[2018-09-30] MEDS: ACETAMINOPHEN 325 MG TAB PO PRN (15:10)
--- NOTE | 2018-09-30 16:47 | PN ---
Date/Time of Note Date/Time of Note DATE: 09/30/18 TIME: 16:45 Assessment/Plan VTE Prophylaxis Risk score (from Nsg)>0 risk: 2 SCD applied (from Nsg): Yes Pharmacological prophylaxis: LMWH Lines/Catheters IV Catheter Type (from Nrsg): PERMACATH Urinary Cath still in place: No Assessment/Plan Hospital Course 1. ckd, hyperkalemia 2. c diff hx 3. Opiates dependency 4. Morbid obesity. 5. Diabetes. 6. Hypertension, 7. Gout, hx 8. Neuropathy. 9. History of congestive heart failure. 10. weakness 11. deconditioning 12. Non compliance, pt refused Valtessa, HD 13. Left shoulder chronic pain. Xray was reviewed from the last visit, it is arthrosis left acromioclavicular joint 14. constipation 15. UTI 16. right arm Picc line is not functioning Assessment/Plan - HD once a week -stool softeners - Lactobacillus - cw with PT -- pt refused cortisone injection per ortho - Wound care - US with thrombosed graft - Ortho consult however patient refused a cortisone shot - avoid narcotics as it would limit her ability to walk for PT as it happened last admission since pts goal is Physical therapy - low k diet, cw lasix -tyenolol on as needed headache - warm compresses to shoulder -SNF with HD -Pt has been refusing things, giving bad comments to me, nursing staff and complaining about everything, explained to her about her disease/condition and treatment and she wants things her own ways Result Diagram: 09/26/18 1004 Results 24hrs Laboratory Tests Test 09/29/18 17:34 09/29/18 20:50 09/29/18 20:54 09/30/18 08:41 Bedside Glucose 143 180 176 156 Test 09/30/18 12:19 Bedside Glucose 162 Subjective 24 Hr Interval Summary Free Text/Dictation pt is sleeping Exam/Review of Systems Vital Signs Vitals Vital Signs Date Temp Pulse Resp B/P (MAP) Pulse Ox O2 O2 Flow FiO2 Time Delivery Rate 09/30/18 133/76 08:00 (95) 09/30/18 97.5 84 19 96 07:32 09/27/18 Room Air 14:00 Intake and Output 09/29/18 09/29/18 09/30/18 1515:00 23:00 07:00 IntakeIntake Total 820 ml OutputOutput Total 2 ml BalanceBalance 818 ml Exam sleeping at this moment Medications Medications Current Medications Acetaminophen (Tylenol Tab) 325 mg Q4H PRN PO MILD PAIN(1-3)OR ELEVATED TEMP Last administered on 09/30/18 15:10; Admin Dose 325 MG; Start 07/20/18 at 23:00 Allopurinol (Zyloprim) 100 mg DAILY PO Last administered on 09/30/18 08:52; Admin Dose 100 MG; Start 07/21/18 at 09:00 IV Flush (NS 3 ml) 3 ml PER PROTOCOL IV ; Start 07/20/18 at 23:00 Acetaminophen (Tylenol Tab) 650 mg Q6H PRN PO PAIN LEVEL 1-3 OR FEVER Last administered on 09/26/18 04:57; Admin Dose 650 MG; Start 07/20/18 at 23:00 Acetaminophen (Tylenol Supp) 650 mg Q6H PRN [place] PAIN LEVEL 1-3 OR FEVER; Start 07/20/18 at 23:00 Docusate Sodium (Colace) 100 mg Q12H PRN PO CONSTIPATION Last administered on 09/29/18 21:04; Admin Dose 100 MG; Start 07/20/18 at 23:00 Bisacodyl (Dulcolax) 5 mg DAILY PRN PO CONSTIPATION Last administered on 09/30/18 08:50; Admin Dose 5 MG; Start 07/20/18 at 23:00 Diagnostic Test (Pha) (Accu-Chek) 1 ea 02 XX Last administered on 09/29/18at 02:06; Admin Dose 1 EA; Start 07/21/18 at 02:00 Insulin Aspart (Novolog Insulin Pen) NOVOLOG *MILD* ALGORITHM WITH MEALS BEDTIME SC Last administered on 09/30/18 08:56; Admin Dose 1 UNIT; Start 07/21/18 at 07:50 Ergocalciferol (Drisdol) 50,000 unit Lacy@0900 PO Last administered on 09/25/18at 12:24; Admin Dose 50,000 UNIT; Start 07/24/18 at 09:00 Miscellaneous Information 1 ea NOTE XX ; Start 07/20/18 at 23:00 Glucose (Glutose) 15 gm Q15M PRN PO DECREASED GLUCOSE; Start 07/20/18 at 23:00 Glucose (Glutose) 22.5 gm Q15M PRN PO DECREASED GLUCOSE; Start 07/20/18 at 23:00 Dextrose (D50w Syringe) 25 ml Q15M PRN IV DECREASED GLUCOSE; Start 07/20/18 at 23:00 Dextrose (D50w Syringe) 50 ml Q15M PRN IV DECREASED GLUCOSE; Start 07/20/18 at 23:00 Glucagon (Glucagen) 1 mg Q15M PRN IM DECREASED GLUCOSE; Start 07/20/18 at 23:00 Glucose (Glutose) 15 gm Q15M PRN BUCCAL DECREASED GLUCOSE; Start 07/20/18 at 23:00 Melatonin (Melatonin) 3 mg HS PRN PO INSOMNIA Last administered on 09/30/18at 00:46; Admin Dose 3 MG; Start 07/20/18 at 23:00 Heparin Sodium (Porcine) (Heparin (5000 Units/1ml)) 5,000 unit Q12 SC Last administered on 09/30/18at 08:57; Admin Dose 5,000 UNIT; Start 07/21/18 at 21:00 Diclofenac Sodium (Voltaren 1% Gel) 2 gm QID TP Last administered on 09/30/18at 08:53; Admin Dose 2 GM; Start 07/22/18 at 13:00 Guaifenesin/ Dextromethorphan (Robitussin Dm Liquid Cup) 10 ml Q4H PRN PO COUGH; Start 07/30/18 at 15:00 Sodium Chloride (NS) -To prime the dialy... DIRECTED FOR HD PRN IV HD; Start 07/31/18 at 18:00 Loratadine (Claritin) 10 mg DAILY PRN PO ALLERGIC REACTION Last administered on 08/07/18at 12:48; Admin Dose 10 MG; Start 08/07/18 at 12:30 Hydralazine HCl (Apresoline) 10 mg Q6H PRN PO ELEVATED BLOOD PRESSURE Last administered on 09/14/18at 02:44; Admin Dose 10 MG; Start 08/08/18 at 04:30 Hydralazine HCl (Apresoline) 25 mg TID PO Last administered on 09/30/18at 08:51; Admin Dose 25 MG; Start 08/08/18 at 13:00 Eye Lubricant (Artificial Tears Oph) 2 drop QID BOTH EYES Last administered on 09/30/18 08:48; Admin Dose 2 DROP; Start 08/09/18 at 11:00 Calcium Carbonate (Tums) 500 mg PRN PRN PO HEARTBURN Last administered on 09/22/18 02:35; Admin Dose 500 MG; Start 08/09/18 at 14:30 Famotidine (Pepcid) 20 mg DAILY PO Last administered on 09/30/18 08:50; Admin Dose 20 MG; Start 08/22/18 at 09:00 Loperamide HCl (Imodium Cap) 2 mg QID PRN PO DIARRHEA; Start 08/21/18 at 16:00 Lactobacillus Acidophilus/ Rhamnosus (Culturelle) 1 cap BID PO Last administered on 09/29/18 20:54; Admin Dose 1 CAP; Start 08/21/18 at 21:00 Nystatin (Nystatin Powder) 1 applic BID TOP Last administered on 09/30/18 08:53; Admin Dose 1 APPLIC; Start 08/28/18 at 21:00 Tramadol HCl (Ultram) 100 mg Q6H PRN PO PAIN LEVEL 6-10 Last administered on 09/30/18 12:22; Admin Dose 100 MG; Start 09/01/18 at 02:00 Ondansetron HCl (Zofran Tab) 4 mg Q6H PRN PO NAUSEA AND/OR VOMITING Last administered on 09/10/18 07:58; Admin Dose 4 MG; Start 09/03/18 at 16:00 Mupirocin (Bactroban) 1 applic BID TOP Last administered on 09/30/18 08:53; Admin Dose 1 APPLIC; Start 09/10/18 at 14:00 Al Hydrox/Mg Hydrox/Simethicone (Mag-Al Plus) 30 ml Q4H PRN PO GASTROINTESTINAL UPSET; Start 09/10/18 at 18:00 Albumin Human 50 ml @ 100 mls/hr WITH DIALYSIS PRN IV SBP<90; Start 09/16/18 at 18:00 Furosemide (Lasix) 40 mg DAILY PO Last administered on 09/30/18 08:53; Admin Dose 40 MG; Start 09/21/18 at 14:30 Heparin Sodium (Porcine) (Heparin (1000 Units/ml)) 4,000 unit AFTER DIALYSIS CATHETER Last administered on 09/26/18 09:15; Admin Dose 4,000 UNIT; Start 09/23/18 at 14:00 Carbamide Peroxide (Debrox Otic) 3 drop BID PRN BOTH EARS EAR PAIN; Start 09/24/18 at 16:00 Ibuprofen (Motrin) 400 mg BID PRN PO MILD PAIN(1-3) OR TEMP>38C Last administered on 09/30/18 08:52; Admin Dose 400 MG; Start 09/24/18 at 16:00 Ondansetron HCl (Zofran Inj) 4 mg Q6H PRN IV NAUSEA AND/OR VOMITING Last administered on 09/26/18 08:42; Admin Dose 4 MG; Start 09/26/18 at 07:30 Gabapentin (Neurontin) 100 mg BID PRN PO NEUROPATHIC PAIN Last administered on 09/30/18at 15:10; Admin Dose 100 MG; Start 09/27/18 at 21:00 Lactobacillus Acidophilus (Florajen3 Capsule) 1 each BID PO Last administered on 09/30/18at 08:52; Admin Dose 1 EACH; Start 09/27/18 at 21:00 Psyllium Hydrophilic Mucilloid (Metamucil (Sugar Free)) 1 pkt BID PO ; Start 09/27/18 at 21:00 WILLY MEDEIROS Sep 30, 2018 16:47
[2018-09-30 20:30] VITALS: BP 133/72; PULSE 75; RESP 18
[2018-09-30] MEDS: DOCUSATE SODIUM 100 MG CAP PO PRN (21:39)
[2018-09-30] MEDS: ACCU-CHEK XX SCH (22:11)
[2018-10-01] MEDS: MELATONIN 3 MG TABLET PO PRN ×2 (01:02→22:10)
[2018-10-01] MEDS: traMADol 50 MG TAB PO PRN ×4 (01:02→19:57)
[2018-10-01] MEDS: BISACODYL (EC) 5 MG TAB PO PRN ×2 (01:08→08:46)
[2018-10-01 01:43] VITALS: BP 128/59; PULSE 84; RESP 18
[2018-10-01] MEDS: IBUPROFEN 400 MG TAB PO PRN ×3 (04:53→22:11)
[2018-10-01 07:44] VITALS: BP 110/53; PULSE 74; RESP 18
[2018-10-01] MEDS: FUROSEMIDE 40 MG TAB PO SCH (08:46)
[2018-10-01] MEDS: FAMOTIDINE 20 MG TAB PO SCH (08:46)
[2018-10-01] MEDS: BALSAM PERU/CASTOR OIL 60 GM TUBE TOP SCH ×2 (08:47→20:20)
[2018-10-01] MEDS: MUPIROCIN 2% 22 GM OINT TOP SCH ×2 (08:47→20:20)
[2018-10-01] MEDS: ARTIFICIAL TEARS 15 ML OPH BOTH EYES SCH ×4 (08:47→21:00)
[2018-10-01] MEDS: NYSTATIN 30 GM POWDER BTL TOP SCH ×2 (08:47→20:21)
[2018-10-01] MEDS: ALLOPURINOL 100 MG TAB PO SCH (08:47)
[2018-10-01] MEDS: DICLOFENAC SODIUM 1% GEL 100 GM TUBE TP SCH ×4 (08:48→21:00)
[2018-10-01] MEDS: INSULIN ASPART [NOVOLOG] 3 ML PEN SC SCH ×4 (08:50→21:00)
[2018-10-01] MEDS: HEPARIN 5,000 UNIT/1 ML VIAL SC SCH ×2 (08:50→20:28)
[2018-10-01] MEDS: L ACIDOPHIL/B LACTIS/B LONGUM CAPSULE PO SCH ×2 (09:00→20:19)
[2018-10-01] MEDS: PSYLLIUM (SUGAR FREE) PACKET PO SCH ×2 (09:00→21:00)
[2018-10-01] MEDS: LACTOBACILLUS RHAMNOSUS CAP PO SCH ×2 (09:00→20:19)
[2018-10-01] MEDS: DOCUSATE SODIUM 100 MG CAP PO PRN ×2 (09:41→20:24)
[2018-10-01] MEDS: ACETAMINOPHEN 325 MG TAB PO PRN (16:14)
[2018-10-01] MEDS: GABAPENTIN 100 MG CAP PO PRN (16:14)
--- NOTE | 2018-10-01 17:17 | PN ---
Date/Time of Note Date/Time of Note DATE: 10/01/18 TIME: 17:14 Assessment/Plan VTE Prophylaxis Risk score (from Nsg)>0 risk: 6 SCD applied (from Nsg): Yes Pharmacological prophylaxis: heparin Lines/Catheters IV Catheter Type (from Nrsg): Central Line Central line still needed: Yes Urinary Cath still in place: No Assessment/Plan Hospital Course 1. ckd, hyperkalemia 2. c diff hx 3. Opiates dependency 4. Morbid obesity. 5. Diabetes. 6. Hypertension, 7. Gout, hx 8. Neuropathy. 9. History of congestive heart failure. 10. weakness 11. deconditioning 12. Non compliance, pt refused Valtessa, HD 13. Left shoulder chronic pain. Xray was reviewed from the last visit, it is arthrosis left acromioclavicular joint 14. constipation 15. UTI 16. right arm Picc line is not functioning Assessment/Plan - HD tomorrow -stool softeners - Lactobacillus - cw with PT -- pt refused cortisone injection per ortho - Wound care - US with thrombosed graft - Ortho consult however patient refused a cortisone shot - avoid narcotics as it would limit her ability to walk for PT as it happened last admission since pts goal is Physical therapy - low k diet, cw lasix -Tylenol on as needed headache - warm compresses to shoulder -SNF with HD -Pt has been refusing things, Results 24hrs Laboratory Tests Test 09/30/18 17:17 09/30/18 21:25 10/01/18 08:44 10/01/18 12:33 Bedside Glucose 152 163 161 119 Subjective 24 Hr Interval Summary Free Text/Dictation hemorrhoids Gastrointestinal: pain Exam/Review of Systems Vital Signs Vitals Vital Signs Date Temp Pulse Resp B/P (MAP) Pulse Ox O2 O2 Flow FiO2 Time Delivery Rate 10/01/18 97.5 74 18 110/53 93 07:44 (72) 09/30/18 Room Air 20:30 Intake and Output 09/30/18 09/30/18 10/01/18 1515:00 23:00 07:00 IntakeIntake Total 800 ml 200 ml BalanceBalance 800 ml 200 ml Exam right portacath Constitutional: alert, oriented Neck: supple Respiratory: clear to auscultation Cardiovascular: regular rate and rhythm Gastrointestinal: soft Medications Medications Current Medications Acetaminophen (Tylenol Tab) 325 mg Q4H PRN PO MILD PAIN(1-3)OR ELEVATED TEMP Last administered on 10/01/18 16:14; Admin Dose 325 MG; Start 07/20/18 at 23:00 Allopurinol (Zyloprim) 100 mg DAILY PO Last administered on 10/01/18 08:47; Admin Dose 100 MG; Start 07/21/18 at 09:00 IV Flush (NS 3 ml) 3 ml PER PROTOCOL IV ; Start 07/20/18 at 23:00 Acetaminophen (Tylenol Tab) 650 mg Q6H PRN PO PAIN LEVEL 1-3 OR FEVER Last administered on 09/26/18 04:57; Admin Dose 650 MG; Start 07/20/18 at 23:00 Acetaminophen (Tylenol Supp) 650 mg Q6H PRN [place] PAIN LEVEL 1-3 OR FEVER; Start 07/20/18 at 23:00 Docusate Sodium (Colace) 100 mg Q12H PRN PO CONSTIPATION Last administered on 10/01/18 09:41; Admin Dose 100 MG; Start 07/20/18 at 23:00 Bisacodyl (Dulcolax) 5 mg DAILY PRN PO CONSTIPATION Last administered on 10/01/18 08:46; Admin Dose 5 MG; Start 07/20/18 at 23:00 Diagnostic Test (Pha) (Accu-Chek) 1 ea 02 XX Last administered on 09/29/18at 02:06; Admin Dose 1 EA; Start 07/21/18 at 02:00 Insulin Aspart (Novolog Insulin Pen) NOVOLOG *MILD* ALGORITHM WITH MEALS BEDTIME SC Last administered on 10/01/18at 08:50; Admin Dose 1 UNIT; Start 07/21/18 at 07:50 Ergocalciferol (Drisdol) 50,000 unit Lacy@0900 PO Last administered on 09/25/18at 12:24; Admin Dose 50,000 UNIT; Start 07/24/18 at 09:00 Miscellaneous Information 1 ea NOTE XX ; Start 07/20/18 at 23:00 Glucose (Glutose) 15 gm Q15M PRN PO DECREASED GLUCOSE; Start 07/20/18 at 23:00 Glucose (Glutose) 22.5 gm Q15M PRN PO DECREASED GLUCOSE; Start 07/20/18 at 23:00 Dextrose (D50w Syringe) 25 ml Q15M PRN IV DECREASED GLUCOSE; Start 07/20/18 at 23:00 Dextrose (D50w Syringe) 50 ml Q15M PRN IV DECREASED GLUCOSE; Start 07/20/18 at 23:00 Glucagon (Glucagen) 1 mg Q15M PRN IM DECREASED GLUCOSE; Start 07/20/18 at 23:00 Glucose (Glutose) 15 gm Q15M PRN BUCCAL DECREASED GLUCOSE; Start 07/20/18 at 23:00 Melatonin (Melatonin) 3 mg HS PRN PO INSOMNIA Last administered on 10/01/18 01:02; Admin Dose 3 MG; Start 07/20/18 at 23:00 Heparin Sodium (Porcine) (Heparin (5000 Units/1ml)) 5,000 unit Q12 SC Last administered on 10/01/18 08:50; Admin Dose 5,000 UNIT; Start 07/21/18 at 21:00 Diclofenac Sodium (Voltaren 1% Gel) 2 gm QID TP Last administered on 10/01/18 12:40; Admin Dose 2 GM; Start 07/22/18 at 13:00 Guaifenesin/ Dextromethorphan (Robitussin Dm Liquid Cup) 10 ml Q4H PRN PO COUGH; Start 07/30/18 at 15:00 Sodium Chloride (NS) -To prime the dialy... DIRECTED FOR HD PRN IV HD; Start 07/31/18 at 18:00 Loratadine (Claritin) 10 mg DAILY PRN PO ALLERGIC REACTION Last administered on 08/07/18 12:48; Admin Dose 10 MG; Start 08/07/18 at 12:30 Hydralazine HCl (Apresoline) 10 mg Q6H PRN PO ELEVATED BLOOD PRESSURE Last administered on 09/14/18 02:44; Admin Dose 10 MG; Start 08/08/18 at 04:30 Hydralazine HCl (Apresoline) 25 mg TID PO Last administered on 10/01/18 08:46; Admin Dose 25 MG; Start 08/08/18 at 13:00 Eye Lubricant (Artificial Tears Oph) 2 drop QID BOTH EYES Last administered on 10/01/18 12:39; Admin Dose 2 DROP; Start 08/09/18 at 11:00 Calcium Carbonate (Tums) 500 mg PRN PRN PO HEARTBURN Last administered on 09/22/18 02:35; Admin Dose 500 MG; Start 08/09/18 at 14:30 Famotidine (Pepcid) 20 mg DAILY PO Last administered on 10/01/18 08:46; Admin Dose 20 MG; Start 08/22/18 at 09:00 Loperamide HCl (Imodium Cap) 2 mg QID PRN PO DIARRHEA; Start 08/21/18 at 16:00 Lactobacillus Acidophilus/ Rhamnosus (Culturelle) 1 cap BID PO Last administered on 09/30/18 21:30; Admin Dose 1 CAP; Start 08/21/18 at 21:00 Nystatin (Nystatin Powder) 1 applic BID TOP Last administered on 10/01/18 08:47; Admin Dose 1 APPLIC; Start 08/28/18 at 21:00 Tramadol HCl (Ultram) 100 mg Q6H PRN PO PAIN LEVEL 6-10 Last administered on 10/01/18 13:31; Admin Dose 100 MG; Start 09/01/18 at 02:00 Ondansetron HCl (Zofran Tab) 4 mg Q6H PRN PO NAUSEA AND/OR VOMITING Last administered on 09/10/18 07:58; Admin Dose 4 MG; Start 09/03/18 at 16:00 Mupirocin (Bactroban) 1 applic BID TOP Last administered on 10/01/18 08:47; Admin Dose 1 APPLIC; Start 09/10/18 at 14:00 Al Hydrox/Mg Hydrox/Simethicone (Mag-Al Plus) 30 ml Q4H PRN PO GASTROINTESTINAL UPSET; Start 09/10/18 at 18:00 Albumin Human 50 ml @ 100 mls/hr WITH DIALYSIS PRN IV SBP<90; Start 09/16/18 at 18:00 Furosemide (Lasix) 40 mg DAILY PO Last administered on 10/01/18 08:46; Admin Dose 40 MG; Start 09/21/18 at 14:30 Heparin Sodium (Porcine) (Heparin (1000 Units/ml)) 4,000 unit AFTER DIALYSIS CATHETER Last administered on 09/26/18 09:15; Admin Dose 4,000 UNIT; Start 09/23/18 at 14:00 Carbamide Peroxide (Debrox Otic) 3 drop BID PRN BOTH EARS EAR PAIN; Start 09/24/18 at 16:00 Ibuprofen (Motrin) 400 mg BID PRN PO MILD PAIN(1-3) OR TEMP>38C Last administered on 10/01/18at 12:36; Admin Dose 400 MG; Start 09/24/18 at 16:00 Ondansetron HCl (Zofran Inj) 4 mg Q6H PRN IV NAUSEA AND/OR VOMITING Last administered on 09/26/18at 08:42; Admin Dose 4 MG; Start 09/26/18 at 07:30 Gabapentin (Neurontin) 100 mg BID PRN PO NEUROPATHIC PAIN Last administered on 10/01/18at 16:14; Admin Dose 100 MG; Start 09/27/18 at 21:00 Lactobacillus Acidophilus (Florajen3 Capsule) 1 each BID PO Last administered on 09/30/18at 08:52; Admin Dose 1 EACH; Start 09/27/18 at 21:00 Psyllium Hydrophilic Mucilloid (Metamucil (Sugar Free)) 1 pkt BID PO ; Start 09/27/18 at 21:00 WILLY MEDEIROS Oct 01, 2018 17:17
[2018-10-01] MEDS ORDERED: LIDOCAINE 5% 35 GM OINT TOP ONE (18:30)
[2018-10-01] MEDS: PE/SHARK OIL/MO/PETROL 30 GM OINT PR PRN (20:18)
[2018-10-01] MEDS: CARBAMIDE PEROXIDE 6.5% 15ML OTIC BOTH EARS PRN (20:19)
[2018-10-01] MEDS: ACCU-CHEK XX SCH (21:34)
[2018-10-02] MEDS: traMADol 50 MG TAB PO PRN ×4 (01:58→21:15)
[2018-10-02 02:15] VITALS: BP 116/75; PULSE 82; RESP 18
[2018-10-02 07:39] VITALS: BP 164/67; PULSE 79; RESP 16
[2018-10-02] MEDS: INSULIN ASPART [NOVOLOG] 3 ML PEN SC SCH ×4 (07:50→21:00)
[2018-10-02] MEDS: LOPERAMIDE 2 MG CAP PO PRN ×3 (08:40→17:54)
[2018-10-02] MEDS: ERGOCALCIFEROL 50,000 UNIT CAP PO SCH ×2 (09:00→12:45)
[2018-10-02] MEDS: FAMOTIDINE 20 MG TAB PO SCH (09:44)
[2018-10-02] MEDS: L ACIDOPHIL/B LACTIS/B LONGUM CAPSULE PO SCH ×2 (09:44→21:00)
[2018-10-02] MEDS: LACTOBACILLUS RHAMNOSUS CAP PO SCH ×2 (09:44→21:00)
[2018-10-02] MEDS: IBUPROFEN 400 MG TAB PO PRN (09:45)
[2018-10-02] MEDS: PSYLLIUM (SUGAR FREE) PACKET PO SCH ×2 (09:45→21:00)
[2018-10-02] MEDS: ALLOPURINOL 100 MG TAB PO SCH (09:45)
[2018-10-02] MEDS: FUROSEMIDE 40 MG TAB PO SCH (09:46)
[2018-10-02] MEDS: NYSTATIN 30 GM POWDER BTL TOP SCH ×2 (09:48→21:00)
[2018-10-02] MEDS: MUPIROCIN 2% 22 GM OINT TOP SCH ×2 (09:48→21:00)
[2018-10-02] MEDS: ARTIFICIAL TEARS 15 ML OPH BOTH EYES SCH ×4 (09:48→21:00)
[2018-10-02] MEDS: HEPARIN 5,000 UNIT/1 ML VIAL SC SCH ×2 (09:48→21:08)
[2018-10-02] MEDS: DICLOFENAC SODIUM 1% GEL 100 GM TUBE TP SCH ×4 (09:49→21:00)
[2018-10-02] MEDS: PE/SHARK OIL/MO/PETROL 30 GM OINT PR PRN (09:49)
[2018-10-02] MEDS: BALSAM PERU/CASTOR OIL 60 GM TUBE TOP SCH ×2 (09:49→21:00)
[2018-10-02] MEDS ORDERED: KETOROLAC 30 MG INJ IM STA (16:34)
--- NOTE | 2018-10-02 18:22 | PN ---
Date/Time of Note Date/Time of Note DATE: 10/02/18 TIME: 18:20 Assessment/Plan VTE Prophylaxis Risk score (from Ns)>0 risk: 7 SCD applied (from Ns): Yes SCD contraindicated: other Pharmacological prophylaxis: other Pharm contraindication: other Lines/Catheters IV Catheter Type (from Nrsg): PERMA-CATH Urinary Cath still in place: No Assessment/Plan Hospital Course 1. . ckd on hd 2. c diff hx 3. Chronic kidney disease, 4. Morbid obesity. 5. Diabetes. 6. Hypertension, 7. Gout.hx 8. Neuropathy. 9. History of congestive heart failure. 10 weakness 11 deconditioning 13 Left shoulde pain, TTP ? Frozen shoulder , shoulder impingement 14 s/p Fall ? AMS confusion likley due to UTI 15 uti klebsiella and enterococcus hx 16 dyspepsia plan hd placement issue labs Results 24hrs Laboratory Tests Test 10/01/18 20:15 10/02/18 08:42 10/02/18 12:48 10/02/18 17:42 Bedside Glucose 131 110 110 142 Subjective 24 Hr Interval Summary Subjective hx not possible: other (refused labs and dialysis today) Exam/Review of Systems Vital Signs Vitals Vital Signs Date Temp Pulse Resp B/P (MAP) Pulse Ox O2 O2 Flow FiO2 Time Delivery Rate 10/02/18 98.5 79 16 164/67 95 Room Air 07:39 (99) Intake and Output 10/01/18 10/01/18 10/02/18 1515:00 23:00 07:00 IntakeIntake Total 600 ml 600 ml BalanceBalance 600 ml 600 ml Exam Neck: supple Respiratory: clear to auscultation Cardiovascular: regular rate and rhythm Gastrointestinal: soft, bowel sounds (+) Extremities: No edema Medications Medications Current Medications Acetaminophen (Tylenol Tab) 325 mg Q4H PRN PO MILD PAIN(1-3)OR ELEVATED TEMP Last administered on 10/01/18at 16:14; Admin Dose 325 MG; Start 07/20/18 at 23:00 Allopurinol (Zyloprim) 100 mg DAILY PO Last administered on 10/02/18at 09:45; Admin Dose 100 MG; Start 07/21/18 at 09:00 IV Flush (NS 3 ml) 3 ml PER PROTOCOL IV ; Start 07/20/18 at 23:00 Acetaminophen (Tylenol Tab) 650 mg Q6H PRN PO PAIN LEVEL 1-3 OR FEVER Last administered on 09/26/18at 04:57; Admin Dose 650 MG; Start 07/20/18 at 23:00 Acetaminophen (Tylenol Supp) 650 mg Q6H PRN [place] PAIN LEVEL 1-3 OR FEVER; Start 07/20/18 at 23:00 Docusate Sodium (Colace) 100 mg Q12H PRN PO CONSTIPATION Last administered on 10/01/18 20:24; Admin Dose 100 MG; Start 07/20/18 at 23:00 Bisacodyl (Dulcolax) 5 mg DAILY PRN PO CONSTIPATION Last administered on 10/01/18 08:46; Admin Dose 5 MG; Start 07/20/18 at 23:00 Diagnostic Test (Pha) (Accu-Chek) 1 ea 02 XX Last administered on 09/29/18at 02:06; Admin Dose 1 EA; Start 07/21/18 at 02:00 Insulin Aspart (Novolog Insulin Pen) NOVOLOG *MILD* ALGORITHM WITH MEALS BEDTIME SC Last administered on 10/01/18at 17:46; Admin Dose 1 UNIT; Start 07/21/18 at 07:50 Ergocalciferol (Drisdol) 50,000 unit Lacy@0900 PO Last administered on 10/02/18at 12:45; Admin Dose 50,000 UNIT; Start 07/24/18 at 09:00 Miscellaneous Information 1 ea NOTE XX ; Start 07/20/18 at 23:00 Glucose (Glutose) 15 gm Q15M PRN PO DECREASED GLUCOSE; Start 07/20/18 at 23:00 Glucose (Glutose) 22.5 gm Q15M PRN PO DECREASED GLUCOSE; Start 07/20/18 at 23:00 Dextrose (D50w Syringe) 25 ml Q15M PRN IV DECREASED GLUCOSE; Start 07/20/18 at 23:00 Dextrose (D50w Syringe) 50 ml Q15M PRN IV DECREASED GLUCOSE; Start 07/20/18 at 23:00 Glucagon (Glucagen) 1 mg Q15M PRN IM DECREASED GLUCOSE; Start 07/20/18 at 23:00 Glucose (Glutose) 15 gm Q15M PRN BUCCAL DECREASED GLUCOSE; Start 07/20/18 at 23:00 Melatonin (Melatonin) 3 mg HS PRN PO INSOMNIA Last administered on 10/01/18 22:10; Admin Dose 3 MG; Start 07/20/18 at 23:00 Heparin Sodium (Porcine) (Heparin (5000 Units/1ml)) 5,000 unit Q12 SC Last administered on 10/02/18 09:48; Admin Dose 5,000 UNIT; Start 07/21/18 at 21:00 Diclofenac Sodium (Voltaren 1% Gel) 2 gm QID TP Last administered on 10/02/18 09:49; Admin Dose 2 GM; Start 07/22/18 at 13:00 Guaifenesin/ Dextromethorphan (Robitussin Dm Liquid Cup) 10 ml Q4H PRN PO COUGH; Start 07/30/18 at 15:00 Sodium Chloride (NS) -To prime the dialy... DIRECTED FOR HD PRN IV HD; Start 07/31/18 at 18:00 Loratadine (Claritin) 10 mg DAILY PRN PO ALLERGIC REACTION Last administered on 08/07/18 12:48; Admin Dose 10 MG; Start 08/07/18 at 12:30 Hydralazine HCl (Apresoline) 10 mg Q6H PRN PO ELEVATED BLOOD PRESSURE Last administered on 09/14/18 02:44; Admin Dose 10 MG; Start 08/08/18 at 04:30 Hydralazine HCl (Apresoline) 25 mg TID PO Last administered on 10/02/18 13:38; Admin Dose 25 MG; Start 08/08/18 at 13:00 Eye Lubricant (Artificial Tears Oph) 2 drop QID BOTH EYES Last administered on 10/02/18 13:38; Admin Dose 2 DROP; Start 08/09/18 at 11:00 Calcium Carbonate (Tums) 500 mg PRN PRN PO HEARTBURN Last administered on 09/22/18 02:35; Admin Dose 500 MG; Start 08/09/18 at 14:30 Famotidine (Pepcid) 20 mg DAILY PO Last administered on 10/02/18 09:44; Admin Dose 20 MG; Start 08/22/18 at 09:00 Loperamide HCl (Imodium Cap) 2 mg QID PRN PO DIARRHEA Last administered on 10/02/18 17:54; Admin Dose 2 MG; Start 08/21/18 at 16:00 Lactobacillus Acidophilus/ Rhamnosus (Culturelle) 1 cap BID PO Last administered on 10/02/18 09:44; Admin Dose 1 CAP; Start 08/21/18 at 21:00 Nystatin (Nystatin Powder) 1 applic BID TOP Last administered on 10/02/18 09:48; Admin Dose 1 APPLIC; Start 08/28/18 at 21:00 Tramadol HCl (Ultram) 100 mg Q6H PRN PO PAIN LEVEL 6-10 Last administered on 10/02/18 12:45; Admin Dose 100 MG; Start 09/01/18 at 02:00 Ondansetron HCl (Zofran Tab) 4 mg Q6H PRN PO NAUSEA AND/OR VOMITING Last administered on 09/10/18 07:58; Admin Dose 4 MG; Start 09/03/18 at 16:00 Mupirocin (Bactroban) 1 applic BID TOP Last administered on 10/02/18 09:48; Admin Dose 1 APPLIC; Start 09/10/18 at 14:00 Al Hydrox/Mg Hydrox/Simethicone (Mag-Al Plus) 30 ml Q4H PRN PO GASTROINTESTINAL UPSET; Start 09/10/18 at 18:00 Albumin Human 50 ml @ 100 mls/hr WITH DIALYSIS PRN IV SBP<90; Start 09/16/18 at 18:00 Furosemide (Lasix) 40 mg DAILY PO Last administered on 10/02/18 09:46; Admin Dose 40 MG; Start 09/21/18 at 14:30 Heparin Sodium (Porcine) (Heparin (1000 Units/ml)) 4,000 unit AFTER DIALYSIS CATHETER Last administered on 09/26/18 09:15; Admin Dose 4,000 UNIT; Start 09/23/18 at 14:00 Carbamide Peroxide (Debrox Otic) 3 drop BID PRN BOTH EARS EAR PAIN Last administered on 10/01/18 20:19; Admin Dose 3 DROP; Start 09/24/18 at 16:00 Ibuprofen (Motrin) 400 mg BID PRN PO MILD PAIN(1-3) OR TEMP>38C Last administered on 10/02/18 09:45; Admin Dose 400 MG; Start 09/24/18 at 16:00 Ondansetron HCl (Zofran Inj) 4 mg Q6H PRN IV NAUSEA AND/OR VOMITING Last a dministered on 09/26/18 08:42; Admin Dose 4 MG; Start 09/26/18 at 07:30 Gabapentin (Neurontin) 100 mg BID PRN PO NEUROPATHIC PAIN Last administered on 10/01/18 16:14; Admin Dose 100 MG; Start 09/27/18 at 21:00 Lactobacillus Acidophilus (Florajen3 Capsule) 1 each BID PO Last administered on 10/02/18 09:44; Admin Dose 1 EACH; Start 09/27/18 at 21:00 Psyllium Hydrophilic Mucilloid (Metamucil (Sugar Free)) 1 pkt BID PO Last administered on 10/02/18 09:45; Admin Dose 1 PKT; Start 09/27/18 at 21:00 Phenyleph/Shark Oil/Min Oil/Petrol (Formulation R Oint) 1 applic PRN PRN AR HEMORROID PAIN/ITCHING Last administered on 10/02/18 09:49; Admin Dose 1 APPLIC; Start 10/01/18 at 17:30 BRIAN ROBLEDO MD Oct 02, 2018 18:22
[2018-10-02 20:45] VITALS: BP 122/68; PULSE 75; RESP 18
[2018-10-03] VITALS (16 sets, daily range): BP systolic 96–133; BP diastolic 30–73; PULSE 74–108; RESP 18–19
[2018-10-03] MEDS: LOPERAMIDE 2 MG CAP PO PRN (00:26)
[2018-10-03] MEDS: ACCU-CHEK XX SCH (01:22)
[2018-10-03] MEDS: traMADol 50 MG TAB PO PRN ×3 (04:59→18:44)
[2018-10-03] MEDS: ALLOPURINOL 100 MG TAB PO SCH (08:56)
[2018-10-03] MEDS: ARTIFICIAL TEARS 15 ML OPH BOTH EYES SCH ×5 (08:56→23:18)
[2018-10-03] MEDS: FAMOTIDINE 20 MG TAB PO SCH (08:56)
[2018-10-03] MEDS: LACTOBACILLUS RHAMNOSUS CAP PO SCH ×2 (08:57→20:57)
[2018-10-03] MEDS: PSYLLIUM (SUGAR FREE) PACKET PO SCH ×2 (08:57→20:57)
[2018-10-03] MEDS: L ACIDOPHIL/B LACTIS/B LONGUM CAPSULE PO SCH ×2 (08:57→20:57)
[2018-10-03] MEDS: FUROSEMIDE 40 MG TAB PO SCH ×2 (08:57→10:03)
[2018-10-03] MEDS: DICLOFENAC SODIUM 1% GEL 100 GM TUBE TP SCH ×4 (08:58→20:58)
[2018-10-03] MEDS: MUPIROCIN 2% 22 GM OINT TOP SCH ×2 (08:58→20:58)
[2018-10-03] MEDS: NYSTATIN 30 GM POWDER BTL TOP SCH ×2 (08:58→20:58)
[2018-10-03] MEDS: BALSAM PERU/CASTOR OIL 60 GM TUBE TOP SCH ×2 (08:58→20:58)
[2018-10-03] MEDS: INSULIN ASPART [NOVOLOG] 3 ML PEN SC SCH ×4 (09:02→21:11)
[2018-10-03] MEDS: HEPARIN 5,000 UNIT/1 ML VIAL SC SCH ×2 (09:02→21:12)
[2018-10-03] MEDS: GABAPENTIN 100 MG CAP PO PRN (09:07)
[2018-10-03] MEDS ORDERED: KETOROLAC 30 MG INJ IM PRN (16:30)
--- NOTE | 2018-10-03 16:35 | PN ---
Date/Time of Note Date/Time of Note DATE: 10/03/18 TIME: 16:34 Assessment/Plan VTE Prophylaxis Risk score (from Ns)>0 risk: 5 SCD applied (from [facility] [place]): No SCD contraindicated: other Pharmacological prophylaxis: other Lines/Catheters IV Catheter Type (from [facility]): PERMA CATH Central line insert date: Oct 03, 2018 Urinary Cath still in place: No Assessment/Plan Hospital Course 1. . ckd on hd 2. c diff hx 3. Chronic kidney disease, 4. Morbid obesity. 5. Diabetes. 6. Hypertension, 7. Gout.hx 8. Neuropathy. 9. History of congestive heart failure. 10 weakness 11 deconditioning 13 Left shoulde pain, TTP ? Frozen shoulder , shoulder impingement 14 s/p Fall ? AMS confusion likley due to UTI 15 uti klebsiella and enterococcus hx 16 dyspepsia plan hd placement issue labs pain meds refused labs Results 24hrs Laboratory Tests Test 10/02/18 17:42 10/02/18 21:01 10/03/18 08:55 10/03/18 13:01 Bedside Glucose 142 167 164 148 Subjective 24 Hr Interval Summary Respiratory: no complaints Cardiovascular: no complaints Exam/Review of Systems Vital Signs Vitals Vital Signs Date Temp Pulse Resp B/P (MAP) Pulse Ox O2 O2 Flow FiO2 Time Delivery Rate 10/03/18 98.5 82 19 129/62 91 Room Air 01:04 (84) Intake and Output 10/02/18 10/02/18 10/03/18 1414:59 22:59 06:59 IntakeIntake Total 200 ml 600 ml BalanceBalance 200 ml 600 ml Exam Respiratory: clear to auscultation Cardiovascular: regular rate and rhythm Gastrointestinal: soft, bowel sounds (+) Extremities: No edema Medications Medications Current Medications Acetaminophen (Tylenol Tab) 325 mg Q4H PRN PO MILD PAIN(1-3)OR ELEVATED TEMP Last administered on 10/01/18at 16:14; Admin Dose 325 MG; Start 07/20/18 at 23:00 Allopurinol (Zyloprim) 100 mg DAILY PO Last administered on 10/03/18at 08:56; Admin Dose 100 MG; Start 07/21/18 at 09:00 IV Flush (NS 3 ml) 3 ml PER PROTOCOL IV ; Start 07/20/18 at 23:00 Acetaminophen (Tylenol Tab) 650 mg Q6H PRN PO PAIN LEVEL 1-3 OR FEVER Last administered on 09/26/18at 04:57; Admin Dose 650 MG; Start 07/20/18 at 23:00 Acetaminophen (Tylenol Supp) 650 mg Q6H PRN [place] PAIN LEVEL 1-3 OR FEVER; Start 07/20/18 at 23:00 Docusate Sodium (Colace) 100 mg Q12H PRN PO CONSTIPATION Last administered on 10/01/18 20:24; Admin Dose 100 MG; Start 07/20/18 at 23:00 Bisacodyl (Dulcolax) 5 mg DAILY PRN PO CONSTIPATION Last administered on 10/01/18 08:46; Admin Dose 5 MG; Start 07/20/18 at 23:00 Diagnostic Test (Pha) (Accu-Chek) 1 ea 02 XX Last administered on 09/29/18at 02:06; Admin Dose 1 EA; Start 07/21/18 at 02:00 Insulin Aspart (Novolog Insulin Pen) NOVOLOG *MILD* ALGORITHM WITH MEALS BEDTIME SC Last administered on 10/03/18 09:02; Admin Dose 1 UNIT; Start 1 at 07:50 Ergocalciferol (Drisdol) 50,000 unit Lacy@0900 PO Last administered on 10/02/18at 12:45; Admin Dose 50,000 UNIT; Start 07/24/18 at 09:00 Miscellaneous Information 1 ea NOTE XX ; Start 07/20/18 at 23:00 Glucose (Glutose) 15 gm Q15M PRN PO DECREASED GLUCOSE; Start 07/20/18 at 23:00 Glucose (Glutose) 22.5 gm Q15M PRN PO DECREASED GLUCOSE; Start 07/20/18 at 23:00 Dextrose (D50w Syringe) 25 ml Q15M PRN IV DECREASED GLUCOSE; Start 07/20/18 at 23:00 Dextrose (D50w Syringe) 50 ml Q15M PRN IV DECREASED GLUCOSE; Start 07/20/18 at 23:00 Glucagon (Glucagen) 1 mg Q15M PRN IM DECREASED GLUCOSE; Start 07/20/18 at 23:00 Glucose (Glutose) 15 gm Q15M PRN BUCCAL DECREASED GLUCOSE; Start 07/20/18 at 23:00 Melatonin (Melatonin) 3 mg HS PRN PO INSOMNIA Last administered on 10/01/18 22:10; Admin Dose 3 MG; Start 07/20/18 at 23:00 Heparin Sodium (Porcine) (Heparin (5000 Units/1ml)) 5,000 unit Q12 SC Last administered on 10/03/18 09:02; Admin Dose 5,000 UNIT; Start 07/21/18 at 21:00 Diclofenac Sodium (Voltaren 1% Gel) 2 gm QID TP Last administered on 10/02/18 09:49; Admin Dose 2 GM; Start 07/22/18 at 13:00 Guaifenesin/ Dextromethorphan (Robitussin Dm Liquid Cup) 10 ml Q4H PRN PO COUGH; Start 07/30/18 at 15:00 Sodium Chloride (NS) -To prime the dialy... DIRECTED FOR HD PRN IV HD; Start 07/31/18 at 18:00 Loratadine (Claritin) 10 mg DAILY PRN PO ALLERGIC REACTION Last administered on 08/07/18 12:48; Admin Dose 10 MG; Start 08/07/18 at 12:30 Hydralazine HCl (Apresoline) 10 mg Q6H PRN PO ELEVATED BLOOD PRESSURE Last administered on 09/14/18 02:44; Admin Dose 10 MG; Start 08/08/18 at 04:30 Hydralazine HCl (Apresoline) 25 mg TID PO Last administered on 10/03/18 13:05; Admin Dose 25 MG; Start 08/08/18 at 13:00 Eye Lubricant (Artificial Tears Oph) 2 drop QID BOTH EYES Last administered on 10/02/18 13:38; Admin Dose 2 DROP; Start 08/09/18 at 11:00 Calcium Carbonate (Tums) 500 mg PRN PRN PO HEARTBURN Last administered on 09/22/18 02:35; Admin Dose 500 MG; Start 08/09/18 at 14:30 Famotidine (Pepcid) 20 mg DAILY PO Last administered on 10/03/18 08:56; Admin Dose 20 MG; Start 08/22/18 at 09:00 Loperamide HCl (Imodium Cap) 2 mg QID PRN PO DIARRHEA Last administered on 10/03/18 00:26; Admin Dose 2 MG; Start 08/21/18 at 16:00 Lactobacillus Acidophilus/ Rhamnosus (Culturelle) 1 cap BID PO Last administered on 10/02/18 09:44; Admin Dose 1 CAP; Start 08/21/18 at 21:00 Nystatin (Nystatin Powder) 1 applic BID TOP Last administered on 10/02/18 09:48; Admin Dose 1 APPLIC; Start 08/28/18 at 21:00 Tramadol HCl (Ultram) 100 mg Q6H PRN PO PAIN LEVEL 6-10 Last administered on 10/03/18 12:59; Admin Dose 100 MG; Start 09/01/18 at 02:00 Ondansetron HCl (Zofran Tab) 4 mg Q6H PRN PO NAUSEA AND/OR VOMITING Last administered on 09/10/18 07:58; Admin Dose 4 MG; Start 09/03/18 at 16:00 Mupirocin (Bactroban) 1 applic BID TOP Last administered on 10/02/18 09:48; Admin Dose 1 APPLIC; Start 09/10/18 at 14:00 Al Hydrox/Mg Hydrox/Simethicone (Mag-Al Plus) 30 ml Q4H PRN PO GASTROINTESTINAL UPSET; Start 09/10/18 at 18:00 Albumin Human 50 ml @ 100 mls/hr WITH DIALYSIS PRN IV SBP<90; Start 09/16/18 at 18:00 Furosemide (Lasix) 40 mg DAILY PO Last administered on 10/03/18 10:03; Admin Dose 40 MG; Start 09/21/18 at 14:30 Heparin Sodium (Porcine) (Heparin (1000 Units/ml)) 4,000 unit AFTER DIALYSIS CATHETER Last administered on 09/26/18 09:15; Admin Dose 4,000 UNIT; Start 09/23/18 at 14:00 Carbamide Peroxide (Debrox Otic) 3 drop BID PRN BOTH EARS EAR PAIN Last administered on 10/01/18 20:19; Admin Dose 3 DROP; Start 09/24/18 at 16:00 Ibuprofen (Motrin) 400 mg BID PRN PO MILD PAIN(1-3) OR TEMP>38C Last administered on 10/02/18 09:45; Admin Dose 400 MG; Start 09/24/18 at 16:00 Ondansetron HCl (Zofran Inj) 4 mg Q6H PRN IV NAUSEA AND/OR VOMITING Last administered on 09/26/18 08:42; Admin Dose 4 MG; Start 09/26/18 at 07:30 Gabapentin (Neurontin) 100 mg BID PRN PO NEUROPATHIC PAIN Last administered on 10/03/18 09:07; Admin Dose 100 MG; Start 09/27/18 at 21:00 Lactobacillus Acidophilus (Florajen3 Capsule) 1 each BID PO Last administered on 10/02/18 09:44; Admin Dose 1 EACH; Start 09/27/18 at 21:00 Psyllium Hydrophilic Mucilloid (Metamucil (Sugar Free)) 1 pkt BID PO Last administered on 10/02/18 09:45; Admin Dose 1 PKT; Start 09/27/18 at 21:00 Phenyleph/Shark Oil/Min Oil/Petrol (Formulation R Oint) 1 applic PRN PRN [place] HEMORROID PAIN/ITCHING Last administered on 10/02/18 09:49; Admin Dose 1 APPLIC; Start 10/01/18 at 17:30 Ketorolac Tromethamine (Toradol) 30 mg DAILY PRN IM PAIN LEVEL 1-3; Start 10/03/18 at 16:30; Stop 10/06/18 at 16:29 BRIAN ROBLEDO MD Oct 03, 2018 16:35
[2018-10-03] MEDS: KETOROLAC 30 MG INJ IM PRN (16:48)
[2018-10-03] MEDS ORDERED: ALBUMIN HUMAN 25% 100 ML IV STA (20:40)
[2018-10-03] MEDS ORDERED: HEPARIN 1000 UNITS/ML 10 ML INJ CATHETER ONE (23:00)
[2018-10-04] MEDS: traMADol 50 MG TAB PO PRN ×4 (01:01→19:19)
[2018-10-04] MEDS: ACCU-CHEK XX SCH (02:00)
[2018-10-04 02:15] VITALS: BP 100/59; PULSE 85; RESP 18
[2018-10-04 07:38] VITALS: BP 133/68; PULSE 77; RESP 16
[2018-10-04] MEDS: INSULIN ASPART [NOVOLOG] 3 ML PEN SC SCH ×4 (07:50→21:00)
[2018-10-04] MEDS: LACTOBACILLUS RHAMNOSUS CAP PO SCH ×3 (09:00→21:00)
[2018-10-04] MEDS: BALSAM PERU/CASTOR OIL 60 GM TUBE TOP SCH ×2 (09:00→21:00)
[2018-10-04] MEDS: PSYLLIUM (SUGAR FREE) PACKET PO SCH ×3 (09:00→21:00)
[2018-10-04] MEDS: ARTIFICIAL TEARS 15 ML OPH BOTH EYES SCH ×4 (09:01→20:40)
[2018-10-04] MEDS: L ACIDOPHIL/B LACTIS/B LONGUM CAPSULE PO SCH ×3 (09:02→21:00)
[2018-10-04] MEDS: ALLOPURINOL 100 MG TAB PO SCH (09:03)
[2018-10-04] MEDS: FUROSEMIDE 40 MG TAB PO SCH (09:03)
[2018-10-04] MEDS: FAMOTIDINE 20 MG TAB PO SCH (09:03)
[2018-10-04] MEDS: HEPARIN 5,000 UNIT/1 ML VIAL SC SCH ×2 (09:05→20:47)
[2018-10-04] MEDS: NYSTATIN 30 GM POWDER BTL TOP SCH ×2 (09:06→21:00)
[2018-10-04] MEDS: DICLOFENAC SODIUM 1% GEL 100 GM TUBE TP SCH ×4 (09:07→21:00)
[2018-10-04] MEDS: MUPIROCIN 2% 22 GM OINT TOP SCH ×2 (09:07→21:00)
[2018-10-04] MEDS: GABAPENTIN 100 MG CAP PO PRN ×2 (12:57→20:47)
[2018-10-04 14:41] VITALS: BP 112/60; PULSE 74; RESP 16
--- NOTE | 2018-10-04 15:20 | PN ---
Date/Time of Note Date/Time of Note DATE: 10/04/18 TIME: 15:19 Assessment/Plan VTE Prophylaxis Risk score (from Ns)>0 risk: 2 SCD applied (from Ns): No SCD contraindicated: low risk/ambulating Pharmacological prophylaxis: NA/contraindicated Pharm contraindication: low risk/ambulating Lines/Catheters [facility] perma cath Urinary Cath still in place: No Assessment/Plan Hospital Course 58 y/o with 1. . ckd iii-iv now with the complications of hyperkalemia, patient has been refusing Kayexalate Veltaastrida has also been refusing dialysis, patient was explained the risks and consequences and patient completely understands the risks and consequences, now agreed, on and off Hd once a week 2. c diff hx 3. Chronic kidney disease, 4. Morbid obesity. 5. Diabetes. 6. Hypertension, 7. Gout.hx 8. Neuropathy. 9. History of congestive heart failure. 10 weakness 11 deconditioning 13 Left shoulde pain, TTP ? Frozen shoulder , shoulder impingement 14 s/p Fall ? AMS confusion likley due to UTI 15 uti klebsiella and enterococcus 16 diarrhea 15 vomtiing/? contipation> refuse labs again 16 Dizziness> chronic ? Postural 17 UTI Plan - HD once a week - ucx+ Enterobacter that is intermediately centrally sensitive to Cipro will start on cephalosporins, pt refused -stool softners - Lactobacillus - cw with PT -- pt refused cortisone injecion per ortho - Wound care - US with thrombosed graft - Ortho consult however patient refused a cortisone shot - avoid narcotics as it would limit her ability to walk for PT as it happened last admission since pts goal is Physical therapy - low k diet, cw lasix -tyenolol on as needed headache - warm compresses to shoulder placment issue Result Diagram: 10/03/18 2351 Results 24hrs Laboratory Tests Test 10/03/18 17:37 10/03/18 21:04 10/03/18 22:00 10/03/18 23:51 Bedside Glucose 200 202 Hepatitis B NEGATIVE Surface Antigen Hepatitis B NEGATIVE Surface Antibody Sodium Level 140 Potassium Level 4.1 Chloride Level 98 Carbon Dioxide 33 H Level Anion Gap 9 Blood Urea 36 H Nitrogen Creatinine 2.20 H Est Glomerular 23 L Filtrat Rate mL/min Glucose Level 170 Calcium Level 8.4 Test 10/04/18 08:47 10/04/18 12:29 Bedside Glucose 124 149 Subjective 24 Hr Interval Summary Free Text/Dictation some nausea Exam/Review of Systems Vital Signs Vitals Vital Signs Date Temp Pulse Resp B/P (MAP) Pulse Ox O2 O2 Flow FiO2 Time Delivery Rate 10/04/18 98.2 74 16 112/60 95 Room Air 14:41 (77) Intake and Output 10/03/18 10/03/18 10/04/18 1515:00 23:00 07:00 IntakeIntake Total 220 ml 350 ml OutputOutput Total 1 ml 1400 ml BalanceBalance 219 ml -1050 ml Exam Respiratory: clear to auscultation Cardiovascular: regular rate and rhythm Gastrointestinal: soft, bowel sounds (+) Extremities: No edema morbidly obsese Medications Medications Current Medications Acetaminophen (Tylenol Tab) 325 mg Q4H PRN PO MILD PAIN(1-3)OR ELEVATED TEMP Last administered on 10/01/18at 16:14; Admin Dose 325 MG; Start 07/20/18 at 23:00 Allopurinol (Zyloprim) 100 mg DAILY PO Last administered on 10/04/18at 09:03; Admin Dose 100 MG; Start 07/21/18 at 09:00 IV Flush (NS 3 ml) 3 ml PER PROTOCOL IV ; Start 07/20/18 at 23:00 Acetaminophen (Tylenol Tab) 650 mg Q6H PRN PO PAIN LEVEL 1-3 OR FEVER Last administered on 09/26/18 04:57; Admin Dose 650 MG; Start 07/20/18 at 23:00 Acetaminophen (Tylenol Supp) 650 mg Q6H PRN [place] PAIN LEVEL 1-3 OR FEVER; Start 07/20/18 at 23:00 Docusate Sodium (Colace) 100 mg Q12H PRN PO CONSTIPATION Last administered on 10/01/18at 20:24; Admin Dose 100 MG; Start 07/20/18 at 23:00 Bisacodyl (Dulcolax) 5 mg DAILY PRN PO CONSTIPATION Last administered on 10/01/18 08:46; Admin Dose 5 MG; Start 07/20/18 at 23:00 Diagnostic Test (Pha) (Accu-Chek) 1 ea 02 XX Last administered on 09/29/18at 02:06; Admin Dose 1 EA; Start 07/21/18 at 02:00 Insulin Aspart (Novolog Insulin Pen) NOVOLOG *MILD* ALGORITHM WITH MEALS BEDTIME SC Last administered on 10/04/18at 12:56; Admin Dose 1 UNIT; Start 07/21/18 at 07:50 Ergocalciferol (Drisdol) 50,000 unit Lacy@0900 PO Last administered on 10/02/18at 12:45; Admin Dose 50,000 UNIT; Start 07/24/18 at 09:00 Miscellaneous Information 1 ea NOTE XX ; Start 07/20/18 at 23:00 Glucose (Glutose) 15 gm Q15M PRN PO DECREASED GLUCOSE; Start 07/20/18 at 23:00 Glucose (Glutose) 22.5 gm Q15M PRN PO DECREASED GLUCOSE; Start 07/20/18 at 23:00 Dextrose (D50w Syringe) 25 ml Q15M PRN IV DECREASED GLUCOSE; Start 07/20/18 at 23:00 Dextrose (D50w Syringe) 50 ml Q15M PRN IV DECREASED GLUCOSE; Start 07/20/18 at 23:00 Glucagon (Glucagen) 1 mg Q15M PRN IM DECREASED GLUCOSE; Start 07/20/18 at 23:00 Glucose (Glutose) 15 gm Q15M PRN BUCCAL DECREASED GLUCOSE; Start 07/20/18 at 23:00 Melatonin (Melatonin) 3 mg HS PRN PO INSOMNIA Last administered on 10/01/18at 22:10; Admin Dose 3 MG; Start 07/20/18 at 23:00 Heparin Sodium (Porcine) (Heparin (5000 Units/1ml)) 5,000 unit Q12 SC Last administered on 10/04/18at 09:05; Admin Dose 5,000 UNIT; Start 07/21/18 at 21:00 Diclofenac Sodium (Voltaren 1% Gel) 2 gm QID TP Last administered on 10/04/18 09:07; Admin Dose 2 GM; Start 07/22/18 at 13:00 Guaifenesin/ Dextromethorphan (Robitussin Dm Liquid Cup) 10 ml Q4H PRN PO COUGH; Start 07/30/18 at 15:00 Sodium Chloride (NS) -To prime the dialy... DIRECTED FOR HD PRN IV HD; Start 07/31/18 at 18:00 Loratadine (Claritin) 10 mg DAILY PRN PO ALLERGIC REACTION Last administered on 08/07/18 12:48; Admin Dose 10 MG; Start 08/07/18 at 12:30 Hydralazine HCl (Apresoline) 10 mg Q6H PRN PO ELEVATED BLOOD PRESSURE Last administered on 09/14/18 02:44; Admin Dose 10 MG; Start 08/08/18 at 04:30 Hydralazine HCl (Apresoline) 25 mg TID PO Last administered on 10/04/18 12:56; Admin Dose 25 MG; Start 08/08/18 at 13:00 Eye Lubricant (Artificial Tears Oph) 2 drop QID BOTH EYES Last administered on 10/04/18 09:01; Admin Dose 2 DROP; Start 08/09/18 at 11:00 Calcium Carbonate (Tums) 500 mg PRN PRN PO HEARTBURN Last administered on 09/22/18 02:35; Admin Dose 500 MG; Start 08/09/18 at 14:30 Famotidine (Pepcid) 20 mg DAILY PO Last administered on 10/04/18 09:03; Admin Dose 20 MG; Start 08/22/18 at 09:00 Loperamide HCl (Imodium Cap) 2 mg QID PRN PO DIARRHEA Last administered on 10/03/18 00:26; Admin Dose 2 MG; Start 08/21/18 at 16:00 Lactobacillus Acidophilus/ Rhamnosus (Culturelle) 1 cap BID PO Last ad ministered on 10/02/18 09:44; Admin Dose 1 CAP; Start 08/21/18 at 21:00 Nystatin (Nystatin Powder) 1 applic BID TOP Last administered on 10/04/18 09:06; Admin Dose 1 APPLIC; Start 08/28/18 at 21:00 Tramadol HCl (Ultram) 100 mg Q6H PRN PO PAIN LEVEL 6-10 Last administered on 10/04/18 12:56; Admin Dose 100 MG; Start 09/01/18 at 02:00 Ondansetron HCl (Zofran Tab) 4 mg Q6H PRN PO NAUSEA AND/OR VOMITING Last administered on 09/10/18 07:58; Admin Dose 4 MG; Start 09/03/18 at 16:00 Mupirocin (Bactroban) 1 applic BID TOP Last administered on 10/04/18 09:07; Admin Dose 1 APPLIC; Start 09/10/18 at 14:00 Al Hydrox/Mg Hydrox/Simethicone (Mag-Al Plus) 30 ml Q4H PRN PO GASTROINTESTINAL UPSET; Start 09/10/18 at 18:00 Albumin Human 50 ml @ 100 mls/hr WITH DIALYSIS PRN IV SBP<90; Start 09/16/18 at 18:00 Furosemide (Lasix) 40 mg DAILY PO Last administered on 10/04/18 09:03; Admin Dose 40 MG; Start 09/21/18 at 14:30 Heparin Sodium (Porcine) (Heparin (1000 Units/ml)) 4,000 unit AFTER DIALYSIS CATHETER Last administered on 09/26/18 09:15; Admin Dose 4,000 UNIT; Start 09/23/18 at 14:00 Carbamide Peroxide (Debrox Otic) 3 drop BID PRN BOTH EARS EAR PAIN Last administered on 10/01/18 20:19; Admin Dose 3 DROP; Start 09/24/18 at 16:00 Ondansetron HCl (Zofran Inj) 4 mg Q6H PRN IV NAUSEA AND/OR VOMITING Last administered on 09/26/18 08:42; Admin Dose 4 MG; Start 09/26/18 at 07:30 Gabapentin (Neurontin) 100 mg BID PRN PO NEUROPATHIC PAIN Last administered on 10/04/18 12:57; Admin Dose 100 MG; Start 09/27/18 at 21:00 Lactobacillus Acidophilus (Florajen3 Capsule) 1 each BID PO Last administered on 10/04/18 09:02; Admin Dose 1 EACH; Start 09/27/18 at 21:00 Psyllium Hydrophilic Mucilloid (Metamucil (Sugar Free)) 1 pkt BID PO Last administered on 10/02/18 09:45; Admin Dose 1 PKT; Start 09/27/18 at 21:00 Phenyleph/Shark Oil/Min Oil/Petrol (Formulation R Oint) 1 applic PRN PRN [place] HEMORROID PAIN/ITCHING Last administered on 10/02/18 09:49; Admin Dose 1 APPLIC; Start 10/01/18 at 17:30 Ketorolac Tromethamine (Toradol) 30 mg DAILY PRN IM PAIN LEVEL 1-3 Last admin istered on 10/03/18 16:48; Admin Dose 30 MG; Start 10/03/18 at 16:30; Stop 10/06/18 at 16:29 KOFI SWANN MD Oct 04, 2018 15:20
[2018-10-04 19:25] VITALS: BP 127/75; PULSE 60; RESP 16
[2018-10-05 01:01] VITALS: BP 122/68; PULSE 81; RESP 16
[2018-10-05] MEDS: ACCU-CHEK XX SCH (02:00)
[2018-10-05] MEDS: traMADol 50 MG TAB PO PRN ×4 (03:17→17:59)
[2018-10-05] MEDS: INSULIN ASPART [NOVOLOG] 3 ML PEN SC SCH ×4 (07:50→21:00)
[2018-10-05] MEDS: PSYLLIUM (SUGAR FREE) PACKET PO SCH ×3 (09:00→21:24)
[2018-10-05] MEDS: L ACIDOPHIL/B LACTIS/B LONGUM CAPSULE PO SCH ×3 (09:00→21:24)
[2018-10-05] MEDS: LACTOBACILLUS RHAMNOSUS CAP PO SCH ×3 (09:00→21:24)
[2018-10-05] MEDS: ALLOPURINOL 100 MG TAB PO SCH (09:00)
[2018-10-05] MEDS: BALSAM PERU/CASTOR OIL 60 GM TUBE TOP SCH ×2 (09:00→21:00)
[2018-10-05 09:06] VITALS: BP 187/99; PULSE 86; RESP 18
[2018-10-05] MEDS: FUROSEMIDE 40 MG TAB PO SCH (09:14)
[2018-10-05] MEDS: ARTIFICIAL TEARS 15 ML OPH BOTH EYES SCH ×4 (09:14→21:00)
[2018-10-05] MEDS: FAMOTIDINE 20 MG TAB PO SCH (09:15)
[2018-10-05] MEDS: NYSTATIN 30 GM POWDER BTL TOP SCH ×2 (09:21→21:30)
[2018-10-05] MEDS: DICLOFENAC SODIUM 1% GEL 100 GM TUBE TP SCH ×4 (09:21→21:00)
[2018-10-05] MEDS: MUPIROCIN 2% 22 GM OINT TOP SCH ×2 (09:22→21:00)
[2018-10-05] MEDS: HEPARIN 5,000 UNIT/1 ML VIAL SC SCH ×2 (09:28→21:29)
[2018-10-05 11:00] VITALS: BP 151/78
[2018-10-05] MEDS: CALCIUM CARBONATE 500 MG CHEW TAB PO PRN (12:34)
[2018-10-05 14:00] VITALS: BP 138/76
--- NOTE | 2018-10-05 17:06 | PN ---
Date/Time of Note Date/Time of Note DATE: 10/05/18 TIME: 17:06 Assessment/Plan VTE Prophylaxis Risk score (from Ns)>0 risk: 7 SCD applied (from [facility] [place] No SCD contraindicated: low risk/ambulating Pharmacological prophylaxis: NA/contraindicated, heparin Pharm contraindication: low risk/ambulating Lines/Catheters IV Catheter Type (from [facility]): PERMACATH Urinary Cath still in place: No Assessment/Plan Hospital Course 58 y/o with 1. . ckd iii-iv now with the complications of hyperkalemia, patient has been refusing Kayexalate [place] has also been refusing dialysis, patient was explained the risks and consequences and patient completely understands the risks and consequences, now agreed, on and off Hd once a week 2. c diff hx 3. Chronic kidney disease, 4. Morbid obesity. 5. Diabetes. 6. Hypertension, 7. Gout.hx 8. Neuropathy. 9. History of congestive heart failure. 10 weakness 11 deconditioning 13 Left shoulde pain, TTP ? Frozen shoulder , shoulder impingement 14 s/p Fall ? AMS confusion likley due to UTI 15 uti klebsiella and enterococcus 16 diarrhea 15 vomtiing/? contipation> refuse labs again 16 Dizziness> chronic ? Postural 17 UTI Plan - HD once a week - ucx+ Enterobacter that is intermediately centrally sensitive to Cipro will start on cephalosporins, pt refused -stool softners - Lactobacillus - cw with PT -- pt refused cortisone injecion per ortho - Wound care - US with thrombosed graft - Ortho consult however patient refused a cortisone shot - avoid narcotics as it would limit her ability to walk for PT as it happened last admission since pts goal is Physical therapy - low k diet, cw lasix -tyenolol on as needed headache - warm compresses to shoulder placment issue Result Diagram: 10/03/18 2351 Results 24hrs Laboratory Tests Test 10/04/18 17:54 10/04/18 20:38 10/05/18 09:20 10/05/18 11:55 Bedside Glucose 161 164 116 135 Subjective 24 Hr Interval Summary Free Text/Dictation no new events Exam/Review of Systems Vital Signs Vitals Vital Signs Date Temp Pulse Resp B/P (MAP) Pulse Ox O2 O2 Flow FiO2 Time Delivery Rate 10/05/18 151/78 11:00 (102) 10/05/18 97.8 86 18 93 Room Air 09:06 Intake and Output 10/04/18 10/04/18 10/05/18 1515:00 23:00 07:00 IntakeIntake Total 510 ml 350 ml 120 ml BalanceBalance 510 ml 350 ml 120 ml Exam elijah: supple. MORBIDY OBESE Respiratory: clear to auscultation Cardiovascular: regular rate and rhythm Gastrointestinal: soft Medications Medications Current Medications Acetaminophen (Tylenol Tab) 325 mg Q4H PRN PO MILD PAIN(1-3)OR ELEVATED TEMP Last administered on 10/01/18 16:14; Admin Dose 325 MG; Start 07/20/18 at 23:00 Allopurinol (Zyloprim) 100 mg DAILY PO Last administered on 10/04/18 09:03; Admin Dose 100 MG; Start 07/21/18 at 09:00 IV Flush (NS 3 ml) 3 ml PER PROTOCOL IV ; Start 07/20/18 at 23:00 Acetaminophen (Tylenol Tab) 650 mg Q6H PRN PO PAIN LEVEL 1-3 OR FEVER Last administered on 09/26/18 04:57; Admin Dose 650 MG; Start 07/20/18 at 23:00 Acetaminophen (Tylenol Supp) 650 mg Q6H PRN MS PAIN LEVEL 1-3 OR FEVER; Start 07/20/18 at 23:00 Docusate Sodium (Colace) 100 mg Q12H PRN PO CONSTIPATION Last administered on 10/01/18 20:24; Admin Dose 100 MG; Start 07/20/18 at 23:00 Bisacodyl (Dulcolax) 5 mg DAILY PRN PO CONSTIPATION Last administered on 10/01/18 08:46; Admin Dose 5 MG; Start 07/20/18 at 23:00 Diagnostic Test (Pha) (Accu-Chek) 1 ea 02 XX Last administered on 09/29/18 02:06; Admin Dose 1 EA; Start 07/21/18 at 02:00 Insulin Aspart (Novolog Insulin Pen) NOVOLOG *MILD* ALGORITHM WITH MEALS BEDTIME SC Last administered on 10/04/18 17:59; Admin Dose 1 UNIT; Start 07/21/18 at 07:50 Ergocalciferol (Drisdol) 50,000 unit Lacy@0900 PO Last administered on 12/30/18at 12:45; Admin Dose 50,000 UNIT; Start 07/24/18 at 09:00 Miscellaneous Information 1 ea NOTE XX ; Start 07/20/18 at 23:00 Glucose (Glutose) 15 gm Q15M PRN PO DECREASED GLUCOSE; Start 07/20/18 at 23:00 Glucose (Glutose) 22.5 gm Q15M PRN PO DECREASED GLUCOSE; Start 07/20/18 at 23:00 Dextrose (D50w Syringe) 25 ml Q15M PRN IV DECREASED GLUCOSE; Start 07/20/18 at 23:00 Dextrose (D50w Syringe) 50 ml Q15M PRN IV DECREASED GLUCOSE; Start 07/20/18 at 23:00 Glucagon (Glucagen) 1 mg Q15M PRN IM DECREASED GLUCOSE; Start 07/20/18 at 23:00 Glucose (Glutose) 15 gm Q15M PRN BUCCAL DECREASED GLUCOSE; Start 07/20/18 at 23:00 Melatonin (Melatonin) 3 mg HS PRN PO INSOMNIA Last administered on 10/01/18at 22:10; Admin Dose 3 MG; Start 07/20/18 at 23:00 Heparin Sodium (Porcine) (Heparin (5000 Units/1ml)) 5,000 unit Q12 SC Last administered on 10/05/18 09:28; Admin Dose 5,000 UNIT; Start 07/21/18 at 21:00 Diclofenac Sodium (Voltaren 1% Gel) 2 gm QID TP Last administered on 10/05/18 09:21; Admin Dose 2 GM; Start 07/22/18 at 13:00 Guaifenesin/ Dextromethorphan (Robitussin Dm Liquid Cup) 10 ml Q4H PRN PO COUGH; Start 07/30/18 at 15:00 Sodium Chloride (NS) -To prime the dialy... DIRECTED FOR HD PRN IV HD; Start 07/31/18 at 18:00 Loratadine (Claritin) 10 mg DAILY PRN PO ALLERGIC REACTION Last administered on 08/07/18at 12:48; Admin Dose 10 MG; Start 08/07/18 at 12:30 Hydralazine HCl (Apresoline) 10 mg Q6H PRN PO ELEVATED BLOOD PRESSURE Last administered on 09/14/18at 02:44; Admin Dose 10 MG; Start 08/08/18 at 04:30 Hydralazine HCl (Apresoline) 25 mg TID PO Last administered on 10/05/18 13:38; Admin Dose 25 MG; Start 08/08/18 at 13:00 Eye Lubricant (Artificial Tears Oph) 2 drop QID BOTH EYES Last administered on 10/05/18 09:14; Admin Dose 2 DROP; Start 08/09/18 at 11:00 Calcium Carbonate (Tums) 500 mg PRN PRN PO HEARTBURN Last administered on 10/05/18 12:34; Admin Dose 500 MG; Start 08/09/18 at 14:30 Famotidine (Pepcid) 20 mg DAILY PO Last administered on 10/05/18 09:15; Admin Dose 20 MG; Start 08/22/18 at 09:00 Loperamide HCl (Imodium Cap) 2 mg QID PRN PO DIARRHEA Last administered on 10/03/18 00:26; Admin Dose 2 MG; Start 08/21/18 at 16:00 Lactobacillus Acidophilus/ Rhamnosus (Culturelle) 1 cap BID PO Last administered on 10/02/18 09:44; Admin Dose 1 CAP; Start 08/21/18 at 21:00 Nystatin (Nystatin Powder) 1 applic BID TOP Last administered on 10/05/18 09:21; Admin Dose 1 APPLIC; Start 08/28/18 at 21:00 Tramadol HCl (Ultram) 100 mg Q6H PRN PO PAIN LEVEL 6-10 Last administered on 10/05/18 13:38; Admin Dose 100 MG; Start 09/01/18 at 02:00 Ondansetron HCl (Zofran Tab) 4 mg Q6H PRN PO NAUSEA AND/OR VOMITING Last administered on 09/10/18 07:58; Admin Dose 4 MG; Start 09/03/18 at 16:00 Mupirocin (Bactroban) 1 applic BID TOP Last administered on 10/05/18 09:22; Admin Dose 1 APPLIC; Start 09/10/18 at 14:00 Al Hydrox/Mg Hydrox/Simethicone (Mag-Al Plus) 30 ml Q4H PRN PO GASTROINTESTINAL UPSET; Start 09/10/18 at 18:00 Albumin Human 50 ml @ 100 mls/hr WITH DIALYSIS PRN IV SBP<90; Start 09/16/18 at 18:00 Furosemide (Lasix) 40 mg DAILY PO Last administered on 10/05/18 09:14; Admin Dose 40 MG; Start 09/21/18 at 14:30 Heparin Sodium (Porcine) (Heparin (1000 Units/ml)) 4,000 unit AFTER DIALYSIS CATHETER Last administered on 09/26/18 09:15; Admin Dose 4,000 UNIT; Start 09/23/18 at 14:00 Carbamide Peroxide (Debrox Otic) 3 drop BID PRN BOTH EARS EAR PAIN Last administered on 10/01/18 20:19; Admin Dose 3 DROP; Start 09/24/18 at 16:00 Ondansetron HCl (Zofran Inj) 4 mg Q6H PRN IV NAUSEA AND/OR VOMITING Last administered on 09/26/18 08:42; Admin Dose 4 MG; Start 09/26/18 at 07:30 Gabapentin (Neurontin) 100 mg BID PRN PO NEUROPATHIC PAIN Last administered on 10/04/18 20:47; Admin Dose 100 MG; Start 09/27/18 at 21:00 Lactobacillus Acidophilus (Florajen3 Capsule) 1 each BID PO Last administered on 10/04/18 09:02; Admin Dose 1 EACH; Start 09/27/18 at 21:00 Psyllium Hydrophilic Mucilloid (Metamucil (Sugar Free)) 1 pkt BID PO Last administered on 10/02/18 09:45; Admin Dose 1 PKT; Start 09/27/18 at 21:00 Phenyleph/Shark Oil/Min Oil/Petrol (Formulation R Oint) 1 applic PRN PRN MS HEMORROID PAIN/ITCHING Last administered on 10/02/18 09:49; Admin Dose 1 APPLIC; Start 10/01/18 at 17:30 Ketorolac Tromethamine (Toradol) 30 mg DAILY PRN IM PAIN LEVEL 1-3 Last administered on 10/03/18 16:48; Admin Dose 30 MG; Start 10/03/18 at 16:30; Stop 10/06/18 at 16:29 KOFI SWANN MD Oct 05, 2018 17:06
[2018-10-05 19:30] VITALS: BP 160/67; PULSE 84; RESP 18
[2018-10-05] MEDS: KETOROLAC 30 MG INJ IM PRN (21:23)
[2018-10-06] MEDS: traMADol 50 MG TAB PO PRN ×4 (00:26→19:37)
[2018-10-06] MEDS: DOCUSATE SODIUM 100 MG CAP PO PRN (00:29)
[2018-10-06] MEDS: BISACODYL (EC) 5 MG TAB PO PRN (00:29)
[2018-10-06] MEDS: ACCU-CHEK XX SCH (02:00)
[2018-10-06 02:10] VITALS: BP 132/73; PULSE 73; RESP 18
[2018-10-06] MEDS: MELATONIN 3 MG TABLET PO PRN (02:42)
[2018-10-06] MEDS: PE/SHARK OIL/MO/PETROL 30 GM OINT PR PRN ×2 (03:59→09:35)
[2018-10-06] MEDS: INSULIN ASPART [NOVOLOG] 3 ML PEN SC SCH ×4 (07:50→22:19)
[2018-10-06 08:17] VITALS: BP 153/70; PULSE 71; RESP 18
[2018-10-06] MEDS: NYSTATIN 30 GM POWDER BTL TOP SCH ×2 (09:00→21:00)
[2018-10-06] MEDS: DICLOFENAC SODIUM 1% GEL 100 GM TUBE TP SCH ×4 (09:00→21:00)
[2018-10-06] MEDS: MUPIROCIN 2% 22 GM OINT TOP SCH ×2 (09:00→21:00)
[2018-10-06] MEDS: LACTOBACILLUS RHAMNOSUS CAP PO SCH ×2 (09:00→21:00)
[2018-10-06] MEDS: PSYLLIUM (SUGAR FREE) PACKET PO SCH ×2 (09:00→21:00)
[2018-10-06] MEDS: L ACIDOPHIL/B LACTIS/B LONGUM CAPSULE PO SCH ×2 (09:00→21:00)
[2018-10-06] MEDS: BALSAM PERU/CASTOR OIL 60 GM TUBE TOP SCH ×2 (09:00→21:00)
[2018-10-06] MEDS: ARTIFICIAL TEARS 15 ML OPH BOTH EYES SCH ×4 (09:00→22:44)
[2018-10-06] MEDS: GABAPENTIN 100 MG CAP PO PRN (09:46)
[2018-10-06] MEDS: ALLOPURINOL 100 MG TAB PO SCH (09:46)
[2018-10-06] MEDS: FAMOTIDINE 20 MG TAB PO SCH (09:49)
[2018-10-06] MEDS: FUROSEMIDE 40 MG TAB PO SCH (09:50)
[2018-10-06] MEDS: HEPARIN 5,000 UNIT/1 ML VIAL SC SCH (09:54)
[2018-10-06 14:00] VITALS: BP 136/68; PULSE 72; RESP 18
--- NOTE | 2018-10-06 15:11 | CONS ---
Date/Time of Note Date/Time of Note DATE: 10/06/18 TIME: 15:02 Assessment/Plan Assessment/Plan Hospital Course Impression: 1. epigastric pain 2. rectal pain secondary to anal fissure 3. GERD 4. ckd iii-iv now with the complications of hyperkalemia, now on HD 5. Morbid obesity. 6. Diabetes. 7. History of congestive heart failure. 8. chronic constipation Recommendations: -stool softners - Lactobacillus - plan for EGD to evaluate her epigastric pain - change protonix to bid dosing to help with GERD - lidocaine ointment to help with pain with anal fissure Result Diagram: 10/03/18 2351 Results 24hrs Laboratory Tests Test 10/05/18 18:02 10/05/18 21:21 10/06/18 09:18 10/06/18 12:54 Bedside Glucose 124 158 108 119 Consultation Date/Type/Reason Admit Date/Time Jul 23, 2018 at 16:13 Date of Consultation: Oct 06, 2018 Type of Consult gastroenterology Reason for Consultation GERD, epigastric pain, rectal pain Hx of Present Illness This is a morbidly obese 58-year-old female who is admitted for lower extremity pain, edema, and whole body pain. She had a chronic inability to walk. She has chronic neuropathy in her feet says she cannot feel her feet even walk. Current hospitalization issues include ckd iii-iv now with the complications of hyperkalemia, patient has been refusing Kayexalate Patient is on HD. GI consulted due to constipation, rectal pain x 2 days. She has h/o GERD now worsening with epigastric pain. All point ROS administered, pertinent positives and negatives in HPI otherwise negative. Past Medical History Medical History: diabetes, high cholesterol, hypertension, renal disease Medications Current Medications Acetaminophen (Tylenol Tab) 325 mg Q4H PRN PO MILD PAIN(1-3)OR ELEVATED TEMP Last administered on 10/01/18at 16:14; Admin Dose 325 MG; Start 07/20/18 at 23:00 Allopurinol (Zyloprim) 100 mg DAILY PO Last administered on 10/06/18at 09:46; Admin Dose 100 MG; Start 07/21/18 at 09:00 IV Flush (NS 3 ml) 3 ml PER PROTOCOL IV ; Start 07/20/18 at 23:00 Acetaminophen (Tylenol Tab) 650 mg Q6H PRN PO PAIN LEVEL 1-3 OR FEVER Last administered on 09/26/18 04:57; Admin Dose 650 MG; Start 07/20/18 at 23:00 Acetaminophen (Tylenol Supp) 650 mg Q6H PRN MO PAIN LEVEL 1-3 OR FEVER; Start 07/20/18 at 23:00 Docusate Sodium (Colace) 100 mg Q12H PRN PO CONSTIPATION Last administered on 10/06/18 00:29; Admin Dose 100 MG; Start 07/20/18 at 23:00 Bisacodyl (Dulcolax) 5 mg DAILY PRN PO CONSTIPATION Last administered on 10/06/18 00:29; Admin Dose 5 MG; Start 07/20/18 at 23:00 Diagnostic Test (Pha) (Accu-Chek) 1 ea 02 XX Last administered on 09/29/18at 02:06; Admin Dose 1 EA; Start 07/21/18 at 02:00 Insulin Aspart (Novolog Insulin Pen) NOVOLOG *MILD* ALGORITHM WITH MEALS BEDTIME SC Last administered on 10/04/18 17:59; Admin Dose 1 UNIT; Start 07/21/18 at 07:50 Ergocalciferol (Drisdol) 50,000 unit Lacy@0900 PO Last administered on 10/02/18at 12:45; Admin Dose 50,000 UNIT; Start 07/24/18 at 09:00 Miscellaneous Information 1 ea NOTE XX ; Start 07/20/18 at 23:00 Glucose (Glutose) 15 gm Q15M PRN PO DECREASED GLUCOSE; Start 07/20/18 at 23:00 Glucose (Glutose) 22.5 gm Q15M PRN PO DECREASED GLUCOSE; Start 07/20/18 at 23:00 Dextrose (D50w Syringe) 25 ml Q15M PRN IV DECREASED GLUCOSE; Start 07/20/18 at 23:00 Dextrose (D50w Syringe) 50 ml Q15M PRN IV DECREASED GLUCOSE; Start 07/20/18 at 23:00 Glucagon (Glucagen) 1 mg Q15M PRN IM DECREASED GLUCOSE; Start 07/20/18 at 23: 00 Glucose (Glutose) 15 gm Q15M PRN BUCCAL DECREASED GLUCOSE; Start 07/20/18 at 23:00 Melatonin (Melatonin) 3 mg HS PRN PO INSOMNIA Last administered on 10/06/18 02:42; Admin Dose 3 MG; Start 07/20/18 at 23:00 Heparin Sodium (Porcine) (Heparin (5000 Units/1ml)) 5,000 unit Q12 SC Last administered on 10/06/18 09:54; Admin Dose 5,000 UNIT; Start 07/21/18 at 21:00 Diclofenac Sodium (Voltaren 1% Gel) 2 gm QID TP Last administered on 10/05/18 09:21; Admin Dose 2 GM; Start 07/22/18 at 13:00 Guaifenesin/ Dextromethorphan (Robitussin Dm Liquid Cup) 10 ml Q4H PRN PO COUGH; Start 07/30/18 at 15:00 Sodium Chloride (NS) -To prime the dialy... DIRECTED FOR HD PRN IV HD; Start 07/31/18 at 18:00 Loratadine (Claritin) 10 mg DAILY PRN PO ALLERGIC REACTION Last administered on 08/07/18 12:48; Admin Dose 10 MG; Start 08/07/18 at 12:30 Hydralazine HCl (Apresoline) 10 mg Q6H PRN PO ELEVATED BLOOD PRESSURE Last administered on 09/14/18 02:44; Admin Dose 10 MG; Start 08/08/18 at 04:30 Hydralazine HCl (Apresoline) 25 mg TID PO Last administered on 10/06/18 12:55; Admin Dose 25 MG; Start 08/08/18 at 13:00 Eye Lubricant (Artificial Tears Oph) 2 drop QID BOTH EYES Last administered on 10/05/18 09:14; Admin Dose 2 DROP; Start 08/09/18 at 11:00 Calcium Carbonate (Tums) 500 mg PRN PRN PO HEARTBURN Last administered on 10/05/18 12:34; Admin Dose 500 MG; Start 08/09/18 at 14:30 Famotidine (Pepcid) 20 mg DAILY PO Last administered on 10/06/18 09:49; Admin Dose 20 MG; Start 08/22/18 at 09:00 Loperamide HCl (Imodium Cap) 2 mg QID PRN PO DIARRHEA Last administered on 10/03/18 00:26; Admin Dose 2 MG; Start 08/21/18 at 16:00 Lactobacillus Acidophilus/ Rhamnosus (Culturelle) 1 cap BID PO Last administered on 10/02/18 09:44; Admin Dose 1 CAP; Start 08/21/18 at 21:00 Nystatin (Nystatin Powder) 1 applic BID TOP Last administered on 10/05/18 21:30; Admin Dose 1 APPLIC; Start 08/28/18 at 21:00 Tramadol HCl (Ultram) 100 mg Q6H PRN PO PAIN LEVEL 6-10 Last administered on 10/06/18 12:50; Admin Dose 100 MG; Start 09/01/18 at 02:00 Ondansetron HCl (Zofran Tab) 4 mg Q6H PRN PO NAUSEA AND/OR VOMITING Last administered on 09/10/18 07:58; Admin Dose 4 MG; Start 09/03/18 at 16:00 Mupirocin (Bactroban) 1 applic BID TOP Last administered on 10/05/18 09:22; Admin Dose 1 APPLIC; Start 09/10/18 at 14:00 Al Hydrox/Mg Hydrox/Simethicone (Mag-Al Plus) 30 ml Q4H PRN PO GASTROINTESTINAL UPSET; Start 09/10/18 at 18:00 Albumin Human 50 ml @ 100 mls/hr WITH DIALYSIS PRN IV SBP<90; Start 09/16/18 at 18:00 Furosemide (Lasix) 40 mg DAILY PO Last administered on 10/06/18 09:50; Admin Dose 40 MG; Start 09/21/18 at 14:30 Heparin Sodium (Porcine) (Heparin (1000 Units/ml)) 4,000 unit AFTER DIALYSIS CATHETER Last administered on 09/26/18 09:15; Admin Dose 4,000 UNIT; Start 1 11/24/17 at 14:00 Carbamide Peroxide (Debrox Otic) 3 drop BID PRN BOTH EARS EAR PAIN Last administered on 10/01/18 20:19; Admin Dose 3 DROP; Start 09/24/18 at 16:00 Ondansetron HCl (Zofran Inj) 4 mg Q6H PRN IV NAUSEA AND/OR VOMITING Last administered on 09/26/18 08:42; Admin Dose 4 MG; Start 09/26/18 at 07:30 Gabapentin (Neurontin) 100 mg BID PRN PO NEUROPATHIC PAIN Last administered on 10/06/18 09:46; Admin Dose 100 MG; Start 09/27/18 at 21:00 Lactobacillus Acidophilus (Florajen3 Capsule) 1 each BID PO Last administered on 10/04/18at 09:02; Admin Dose 1 EACH; Start 09/27/18 at 21:00 Psyllium Hydrophilic Mucilloid (Metamucil (Sugar Free)) 1 pkt BID PO Last administered on 10/02/18at 09:45; Admin Dose 1 PKT; Start 09/27/18 at 21:00 Phenyleph/Shark Oil/Min Oil/Petrol (Formulation R Oint) 1 applic PRN PRN MO HEMORROID PAIN/ITCHING Last administered on 10/06/18at 09:35; Admin Dose 1 APPLIC; Start 10/01/18 at 17:30 Ketorolac Tromethamine (Toradol) 30 mg DAILY PRN IM PAIN LEVEL 1-3 Last administered on 10/05/18at 21:23; Admin Dose 30 MG; Start 10/03/18 at 16:30; Stop 10/06/18 at 16:29 Allergies: Coded Allergies: polystyrene sulfonate (Verified Allergy, Intermediate, hives, 07/20/18) codeine (Verified Allergy, Unknown, 07/20/18) Uncoded Allergies: SEAFOOD (Allergy, Unknown, 05/13/18) Past Surgical History Past Surgical Hx: endoscopy Family History Significant Family History: no pertinent family hx Social History Alcohol Use: none Smoking Status: Never smoker Drug Use: none Exam/Review of Systems Vital Signs Vitals Vital Signs Date Temp Pulse Resp B/P (MAP) Pulse Ox O2 O2 Flow FiO2 Time Delivery Rate 10/06/18 97.5 71 18 153/70 92 Room Air 08:17 (97) Intake and Output 10/05/18 10/05/18 10/06/18 1414:59 22:59 06:59 IntakeIntake Total 200 ml 100 ml 200 ml BalanceBalance 200 ml 100 ml 200 ml Exam Constitutional: alert, oriented, obese Psych: no complaints, nl mood/affect Head: normocephalic, atraumatic Eyes: nl conjunctiva, EOMI, nl lids ENMT: nl external ears & nose, nl lips & teeth, nl nasal mucosa & septum Neck: supple, non-tender Respiratory: clear to auscultation, normal air movement Cardiovascular: regular rate and rhythm Gastrointestinal: soft, tender (epigastric) Neurological: nl mental status, nl speech, nl strength Medications Medications Current Medications Acetaminophen (Tylenol Tab) 325 mg Q4H PRN PO MILD PAIN(1-3)OR ELEVATED TEMP Last administered on 10/01/18 16:14; Admin Dose 325 MG; Start 07/20/18 at 23:00 Allopurinol (Zyloprim) 100 mg DAILY PO Last administered on 10/06/18 09:46; Admin Dose 100 MG; Start 07/21/18 at 09:00 IV Flush (NS 3 ml) 3 ml PER PROTOCOL IV ; Start 07/20/18 at 23:00 Acetaminophen (Tylenol Tab) 650 mg Q6H PRN PO PAIN LEVEL 1-3 OR FEVER Last administered on 09/26/18 04:57; Admin Dose 650 MG; Start 07/20/18 at 23:00 Acetaminophen (Tylenol Supp) 650 mg Q6H PRN MO PAIN LEVEL 1-3 OR FEVER; Start 07/20/18 at 23:00 Docusate Sodium (Colace) 100 mg Q12H PRN PO CONSTIPATION Last administered on 10/06/18 00:29; Admin Dose 100 MG; Start 07/20/18 at 23:00 Bisacodyl (Dulcolax) 5 mg DAILY PRN PO CONSTIPATION Last administered on 10/06/18 00:29; Admin Dose 5 MG; Start 07/20/18 at 23:00 Diagnostic Test (Pha) (Accu-Chek) 1 ea 02 XX Last administered on 09/29/18at 02:06; Admin Dose 1 EA; Start 07/21/18 at 02:00 Insulin Aspart (Novolog Insulin Pen) NOVOLOG *MILD* ALGORITHM WITH MEALS BEDTIME SC Last administered on 10/04/18 17:59; Admin Dose 1 UNIT; Start 07/21/18 at 07:50 Ergocalciferol (Drisdol) 50,000 unit Lacy@0900 PO Last administered on 10/02/18at 12:45; Admin Dose 50,000 UNIT; Start 07/24/18 at 09:00 Miscellaneous Information 1 ea NOTE XX ; Start 07/20/18 at 23:00 Glucose (Glutose) 15 gm Q15M PRN PO DECREASED GLUCOSE; Start 07/20/18 at 23:00 Glucose (Glutose) 22.5 gm Q15M PRN PO DECREASED GLUCOSE; Start 07/20/18 at 23:00 Dextrose (D50w Syringe) 25 ml Q15M PRN IV DECREASED GLUCOSE; Start 07/20/18 at 23:00 Dextrose (D50w Syringe) 50 ml Q15M PRN IV DECREASED GLUCOSE; Start 07/20/18 at 23:00 Glucagon (Glucagen) 1 mg Q15M PRN IM DECREASED GLUCOSE; Start 07/20/18 at 23:00 Glucose (Glutose) 15 gm Q15M PRN BUCCAL DECREASED GLUCOSE; Start 07/20/18 at 23:00 Melatonin (Melatonin) 3 mg HS PRN PO INSOMNIA Last administered on 10/06/18 02:42; Admin Dose 3 MG; Start 07/20/18 at 23:00 Heparin Sodium (Porcine) (Heparin (5000 Units/1ml)) 5,000 unit Q12 SC Last administered on 10/06/18 09:54; Admin Dose 5,000 UNIT; Start 07/21/18 at 21:00 Diclofenac Sodium (Voltaren 1% Gel) 2 gm QID TP Last administered on 10/05/18 09:21; Admin Dose 2 GM; Start 07/22/18 at 13:00 Guaifenesin/ Dextromethorphan (Robitussin Dm Liquid Cup) 10 ml Q4H PRN PO COUGH; Start 07/30/18 at 15:00 Sodium Chloride (NS) -To prime the dialy... DIRECTED FOR HD PRN IV HD; Start 07/31/18 at 18:00 Loratadine (Claritin) 10 mg DAILY PRN PO ALLERGIC REACTION Last administered on 08/07/18at 12:48; Admin Dose 10 MG; Start 08/07/18 at 12:30 Hydralazine HCl (Apresoline) 10 mg Q6H PRN PO ELEVATED BLOOD PRESSURE Last administered on 09/14/18 02:44; Admin Dose 10 MG; Start 08/08/18 at 04:30 Hydralazine HCl (Apresoline) 25 mg TID PO Last administered on 10/06/18 12:55; Admin Dose 25 MG; Start 08/08/18 at 13:00 Eye Lubricant (Artificial Tears Oph) 2 drop QID BOTH EYES Last administered on 10/05/18 09:14; Admin Dose 2 DROP; Start 08/09/18 at 11:00 Calcium Carbonate (Tums) 500 mg PRN PRN PO HEARTBURN Last administered on 10/05/18 12:34; Admin Dose 500 MG; Start 08/09/18 at 14:30 Famotidine (Pepcid) 20 mg DAILY PO Last administered on 10/06/18 09:49; Admin Dose 20 MG; Start 08/22/18 at 09:00 Loperamide HCl (Imodium Cap) 2 mg QID PRN PO DIARRHEA Last administered on 10/03/18 00:26; Admin Dose 2 MG; Start 08/21/18 at 16:00 Lactobacillus Acidophilus/ Rhamnosus (Culturelle) 1 cap BID PO Last administered on 10/02/18 09:44; Admin Dose 1 CAP; Start 08/21/18 at 21:00 Nystatin (Nystatin Powder) 1 applic BID TOP Last administered on 10/05/18 21:30; Admin Dose 1 APPLIC; Start 08/28/18 at 21:00 Tramadol HCl (Ultram) 100 mg Q6H PRN PO PAIN LEVEL 6-10 Last administered on 10/06/18 12:50; Admin Dose 100 MG; Start 09/01/18 at 02:00 Ondansetron HCl (Zofran Tab) 4 mg Q6H PRN PO NAUSEA AND/OR VOMITING Last administered on 09/10/18 07:58; Admin Dose 4 MG; Start 09/03/18 at 16:00 Mupirocin (Bactroban) 1 applic BID TOP Last administered on 10/05/18 09:22; Admin Dose 1 APPLIC; Start 09/10/18 at 14:00 Al Hydrox/Mg Hydrox/Simethicone (Mag-Al Plus) 30 ml Q4H PRN PO GASTROINTESTINAL UPSET; Start 09/10/18 at 18:00 Albumin Human 50 ml @ 100 mls/hr WITH DIALYSIS PRN IV SBP<90; Start 09/16/18 at 18:00 Furosemide (Lasix) 40 mg DAILY PO Last administered on 10/06/18 09:50; Admin Dose 40 MG; Start 09/21/18 at 14:30 Heparin Sodium (Porcine) (Heparin (1000 Units/ml)) 4,000 unit AFTER DIALYSIS CATHETER Last administered on 09/26/18 09:15; Admin Dose 4,000 UNIT; Start 09/23/18 at 14:00 Carbamide Peroxide (Debrox Otic) 3 drop BID PRN BOTH EARS EAR PAIN Last administered on 10/01/18 20:19; Admin Dose 3 DROP; Start 09/24/18 at 16:00 Ondansetron HCl (Zofran Inj) 4 mg Q6H PRN IV NAUSEA AND/OR VOMITING Last administered on 09/26/18at 08:42; Admin Dose 4 MG; Start 09/26/18 at 07:30 Gabapentin (Neurontin) 100 mg BID PRN PO NEUROPATHIC PAIN Last administered on 10/06/18 09:46; Admin Dose 100 MG; Start 09/27/18 at 21:00 Lactobacillus Acidophilus (Florajen3 Capsule) 1 each BID PO Last administered on 10/04/18 09:02; Admin Dose 1 EACH; Start 09/27/18 at 21:00 Psyllium Hydrophilic Mucilloid (Metamucil (Sugar Free)) 1 pkt BID PO Last administered on 10/02/18 09:45; Admin Dose 1 PKT; Start 09/27/18 at 21:00 Phenyleph/Shark Oil/Min Oil/Petrol (Formulation R Oint) 1 applic PRN PRN MO HEMORROID PAIN/ITCHING Last administered on 10/06/18 09:35; Admin Dose 1 APPLIC; Start 10/01/18 at 17:30 Ketorolac Tromethamine (Toradol) 30 mg DAILY PRN IM PAIN LEVEL 1-3 Last ad ministered on 10/05/18 21:23; Admin Dose 30 MG; Start 10/03/18 at 16:30; Stop 10/06/18 at 16:29 LEO CASTILLO MD Oct 06, 2018 15:11
[2018-10-06] MEDS ORDERED: traMADol 50 MG TAB PO ONE (15:15)
--- NOTE | 2018-10-06 15:18 | PN ---
Date/Time of Note Date/Time of Note DATE: 10/06/18 TIME: 15:16 Assessment/Plan VTE Prophylaxis Risk score (from Nsg)>0 risk: 6 SCD applied (from Ns): No SCD contraindicated: low risk/ambulating Pharmacological prophylaxis: NA/contraindicated Pharm contraindication: low risk/ambulating Lines/Catheters IV Catheter Type (from Nrs): perma cath Urinary Cath still in place: No Assessment/Plan Hospital Course 58 y/o with 1. . ckd iii-iv now with the complications of hyperkalemia, patient has been refusing Kayexalate Veltaastrida has also been refusing dialysis, patient was explained the risks and consequences and patient completely understands the risks and consequences, now agreed, on and off Hd once a week 2. c diff hx 3. Chronic kidney disease, 4. Morbid obesity. 5. Diabetes. 6. Hypertension, 7. Gout.hx 8. Neuropathy. 9. History of congestive heart failure. 10 weakness 11 deconditioning 13 Left shoulde pain, TTP ? Frozen shoulder , shoulder impingement 14 s/p Fall ? AMS confusion likley due to UTI 15 uti klebsiella and enterococcus 16 diarrhea 15 vomtiing/? contipation> refuse labs again 16 Dizziness> chronic ? Postural 17 UTI 18 rectal pain Plan - lidocaine colonoscopy in future - EGD ? per GI - PPI BID - HD once a week -stool softners - Lactobacillus - cw with PT -- pt refused cortisone injecion per ortho - Wound care - US with thrombosed graft - Ortho consult however patient refused a cortisone shot - avoid narcotics as it would limit her ability to walk for PT as it happened l ast admission since pts goal is Physical therapy - low k diet, cw lasix -tyenolol on as needed headache - warm compresses to shoulder placment issue Result Diagram: 10/03/18 2351 Results 24hrs Laboratory Tests Test 10/05/18 18:02 10/05/18 21:21 10/06/18 09:18 10/06/18 12:54 Bedside Glucose 124 158 108 119 Subjective 24 Hr Interval Summary Free Text/Dictation Patient complaining of rectal pain that she had been constipated before Some nausea Exam/Review of Systems Vital Signs Vitals Vital Signs Date Temp Pulse Resp B/P (MAP) Pulse Ox O2 O2 Flow FiO2 Time Delivery Rate 10/06/18 97.5 71 18 153/70 92 Room Air 08:17 (97) Intake and Output 10/05/18 10/05/18 10/06/18 1515:00 23:00 07:00 IntakeIntake Total 200 ml 100 ml 200 ml BalanceBalance 200 ml 100 ml 200 ml Exam elijah: supple. MORBIDY OBESE Respiratory: clear to auscultation Cardiovascular: regular rate and rhythm Gastrointestinal: soft Medications Medications Medications Current Medications Acetaminophen (Tylenol Tab) 325 mg Q4H PRN PO MILD PAIN(1-3)OR ELEVATED TEMP Last administered on 10/01/18 16:14; Admin Dose 325 MG; Start 07/20/18 at 23:00 Allopurinol (Zyloprim) 100 mg DAILY PO Last administered on 10/06/18 09:46; Admin Dose 100 MG; Start 07/21/18 at 09:00 IV Flush (NS 3 ml) 3 ml PER PROTOCOL IV ; Start 07/20/18 at 23:00 Acetaminophen (Tylenol Tab) 650 mg Q6H PRN PO PAIN LEVEL 1-3 OR FEVER Last administered on 09/26/18 04:57; Admin Dose 650 MG; Start 07/20/18 at 23:00 Acetaminophen (Tylenol Supp) 650 mg Q6H PRN [place] PAIN LEVEL 1-3 OR FEVER; Start 07/20/18 at 23:00 Docusate Sodium (Colace) 100 mg Q12H PRN PO CONSTIPATION Last administered on 10/06/18 00:29; Admin Dose 100 MG; Start 07/20/18 at 23:00 Bisacodyl (Dulcolax) 5 mg DAILY PRN PO CONSTIPATION Last administered on 10/06/18 00:29; Admin Dose 5 MG; Start 07/20/18 at 23:00 Diagnostic Test (Pha) (Accu-Chek) 1 ea 02 XX Last administered on 09/29/18 02:06; Admin Dose 1 EA; Start 07/21/18 at 02:00 Insulin Aspart (Novolog Insulin Pen) NOVOLOG *MILD* ALGORITHM WITH MEALS BEDTIME SC Last administered on 10/04/18 17:59; Admin Dose 1 UNIT; Start 07/21/18 at 07:50 Ergocalciferol (Drisdol) 50,000 unit Lacy@0900 PO Last administered on 12/30/18at 12:45; Admin Dose 50,000 UNIT; Start 07/24/18 at 09:00 Miscellaneous Information 1 ea NOTE XX ; Start 07/20/18 at 23:00 Glucose (Glutose) 15 gm Q15M PRN PO DECREASED GLUCOSE; Start 07/20/18 at 23:00 Glucose (Glutose) 22.5 gm Q15M PRN PO DECREASED GLUCOSE; Start 07/20/18 at 23:00 Dextrose (D50w Syringe) 25 ml Q15M PRN IV DECREASED GLUCOSE; Start 07/20/18 at 23:00 Dextrose (D50w Syringe) 50 ml Q15M PRN IV DECREASED GLUCOSE; Start 07/20/18 at 23:00 Glucagon (Glucagen) 1 mg Q15M PRN IM DECREASED GLUCOSE; Start 07/20/18 at 23:00 Glucose (Glutose) 15 gm Q15M PRN BUCCAL DECREASED GLUCOSE; Start 07/20/18 at 23:00 Melatonin (Melatonin) 3 mg HS PRN PO INSOMNIA Last administered on 10/06/18 02:42; Admin Dose 3 MG; Start 07/20/18 at 23:00 Heparin Sodium (Porcine) (Heparin (5000 Units/1ml)) 5,000 unit Q12 SC Last administered on 10/06/18 09:54; Admin Dose 5,000 UNIT; Start 07/21/18 at 21:00; Status Hold Diclofenac Sodium (Voltaren 1% Gel) 2 gm QID TP Last administered on 10/05/18 09:21; Admin Dose 2 GM; Start 07/22/18 at 13:00 Guaifenesin/ Dextromethorphan (Robitussin Dm Liquid Cup) 10 ml Q4H PRN PO COUGH; Start 07/30/18 at 15:00 Sodium Chloride (NS) -To prime the dialy... DIRECTED FOR HD PRN IV HD; Start 07/31/18 at 18:00 Loratadine (Claritin) 10 mg DAILY PRN PO ALLERGIC REACTION Last administered on 08/07/18at 12:48; Admin Dose 10 MG; Start 08/07/18 at 12:30 Hydralazine HCl (Apresoline) 10 mg Q6H PRN PO ELEVATED BLOOD PRESSURE Last administered on 09/14/18at 02:44; Admin Dose 10 MG; Start 08/08/18 at 04:30 Hydralazine HCl (Apresoline) 25 mg TID PO Last administered on 10/06/18 12:55; Admin Dose 25 MG; Start 08/08/18 at 13:00 Eye Lubricant (Artificial Tears Oph) 2 drop QID BOTH EYES Last administered on 10/05/18 09:14; Admin Dose 2 DROP; Start 08/09/18 at 11:00 Calcium Carbonate (Tums) 500 mg PRN PRN PO HEARTBURN Last administered on 10/05/18 12:34; Admin Dose 500 MG; Start 08/09/18 at 14:30 Loperamide HCl (Imodium Cap) 2 mg QID PRN PO DIARRHEA Last administered on 09/05 00:26; Admin Dose 2 MG; Start 08/21/18 at 16:00 Lactobacillus Acidophilus/ Rhamnosus (Culturelle) 1 cap BID PO Last administered on 10/02/18 09:44; Admin Dose 1 CAP; Start 08/21/18 at 21:00 Nystatin (Nystatin Powder) 1 applic BID TOP Last administered on 10/05/18 21:30; Admin Dose 1 APPLIC; Start 08/28/18 at 21:00 Tramadol HCl (Ultram) 100 mg Q6H PRN PO PAIN LEVEL 6-10 Last administered on 10/06/18 12:50; Admin Dose 100 MG; Start 09/01/18 at 02:00 Ondansetron HCl (Zofran Tab) 4 mg Q6H PRN PO NAUSEA AND/OR VOMITING Last administered on 09/10/18 07:58; Admin Dose 4 MG; Start 09/03/18 at 16:00 Mupirocin (Bactroban) 1 applic BID TOP Last administered on 10/05/18 09:22; Admin Dose 1 APPLIC; Start 09/10/18 at 14:00 Al Hydrox/Mg Hydrox/Simethicone (Mag-Al Plus) 30 ml Q4H PRN PO GASTROINTESTINAL UPSET; Start 09/10/18 at 18:00 Albumin Human 50 ml @ 100 mls/hr WITH DIALYSIS PRN IV SBP<90; Start 09/16/18 at 18:00 Furosemide (Lasix) 40 mg DAILY PO Last administered on 10/06/18 09:50; Admin Dose 40 MG; Start 09/21/18 at 14:30 Heparin Sodium (Porcine) (Heparin (1000 Units/ml)) 4,000 unit AFTER DIALYSIS CATHETER Last administered on 09/26/18at 09:15; Admin Dose 4,000 UNIT; Start 09/23/18 at 14:00 Carbamide Peroxide (Debrox Otic) 3 drop BID PRN BOTH EARS EAR PAIN Last administered on 10/01/18at 20:19; Admin Dose 3 DROP; Start 09/24/18 at 16:00 Ondansetron HCl (Zofran Inj) 4 mg Q6H PRN IV NAUSEA AND/OR VOMITING Last administered on 09/26/18at 08:42; Admin Dose 4 MG; Start 09/26/18 at 07:30 Gabapentin (Neurontin) 100 mg BID PRN PO NEUROPATHIC PAIN Last administered on 10/06/18 09:46; Admin Dose 100 MG; Start 09/27/18 at 21:00 Lactobacillus Acidophilus (Florajen3 Capsule) 1 each BID PO Last administered on 10/04/18 09:02; Admin Dose 1 EACH; Start 09/27/18 at 21:00 Psyllium Hydrophilic Mucilloid (Metamucil (Sugar Free)) 1 pkt BID PO Last administered on 10/02/18 09:45; Admin Dose 1 PKT; Start 09/27/18 at 21:00 Phenyleph/Shark Oil/Min Oil/Petrol (Formulation R Oint) 1 applic PRN PRN [place] HEMORROID PAIN/ITCHING Last administered on 10/06/18 09:35; Admin Dose 1 APPLIC; Start 10/01/18 at 17:30 Ketorolac Tromethamine (Toradol) 30 mg DAILY PRN IM PAIN LEVEL 1-3 Last administered on 10/05/18 21:23; Admin Dose 30 MG; Start 10/03/18 at 16:30; Sto p 10/06/18 at 16:29 Pantoprazole (Protonix Tab) 40 mg BID@,18 PO ; Start 10/06/18 at 18:00 Lidocaine (Lidocaine 5% Oint) 1 applic TID TOP ; Start 10/06/18 at 21:00 Tramadol HCl (Ultram) 100 mg ONCE ONCE PO ; Start 10/06/18 at 15:15; Stop 10/06/18 at 15:16; Status KOFI OBRIEN MD Oct 06, 2018 15:18
[2018-10-06] MEDS: PANTOPRAZOLE (EC) 40 MG TAB PO SCH (18:37)
[2018-10-06 20:03] VITALS: BP 121/65; PULSE 85; RESP 18
[2018-10-06] MEDS: LIDOCAINE 5% 35 GM OINT TOP SCH (22:08)
[2018-10-07] MEDS: traMADol 50 MG TAB PO PRN ×4 (00:43→20:35)
[2018-10-07] MEDS: GABAPENTIN 100 MG CAP PO PRN ×3 (00:57→20:45)
[2018-10-07] MEDS: MELATONIN 3 MG TABLET PO PRN (00:57)
[2018-10-07] MEDS: ACCU-CHEK XX SCH (01:28)
[2018-10-07 02:48] VITALS: BP 142/65; PULSE 78; RESP 18
[2018-10-07] MEDS: PANTOPRAZOLE (EC) 40 MG TAB PO SCH ×2 (06:00→18:00)
[2018-10-07] MEDS: INSULIN ASPART [NOVOLOG] 3 ML PEN SC SCH ×4 (07:50→20:53)
[2018-10-07 07:55] VITALS: BP 120/59; PULSE 81; RESP 18
[2018-10-07] MEDS: NYSTATIN 30 GM POWDER BTL TOP SCH ×2 (09:00→20:33)
[2018-10-07] MEDS: BALSAM PERU/CASTOR OIL 60 GM TUBE TOP SCH ×2 (09:00→20:32)
[2018-10-07] MEDS: L ACIDOPHIL/B LACTIS/B LONGUM CAPSULE PO SCH ×2 (09:00→20:31)
[2018-10-07] MEDS: MUPIROCIN 2% 22 GM OINT TOP SCH ×2 (09:00→20:32)
[2018-10-07] MEDS: DICLOFENAC SODIUM 1% GEL 100 GM TUBE TP SCH ×4 (09:00→20:33)
[2018-10-07] MEDS: LACTOBACILLUS RHAMNOSUS CAP PO SCH ×2 (09:29→20:31)
[2018-10-07] MEDS: ALLOPURINOL 100 MG TAB PO SCH (09:29)
[2018-10-07] MEDS: FUROSEMIDE 40 MG TAB PO SCH (09:29)
[2018-10-07] MEDS: LIDOCAINE 5% 35 GM OINT TOP SCH ×3 (09:29→20:33)
[2018-10-07] MEDS: PSYLLIUM (SUGAR FREE) PACKET PO SCH ×2 (09:29→20:32)
[2018-10-07] MEDS: ARTIFICIAL TEARS 15 ML OPH BOTH EYES SCH ×4 (09:30→20:31)
[2018-10-07] MEDS: DOCUSATE SODIUM 100 MG CAP PO PRN ×2 (09:38→20:45)
[2018-10-07] MEDS: BISACODYL (EC) 5 MG TAB PO PRN ×2 (09:38→20:45)
[2018-10-07 14:00] VITALS: BP 138/64; PULSE 80; RESP 18
--- NOTE | 2018-10-07 14:03 | PN ---
Date/Time of Note Date/Time of Note DATE: 10/07/18 TIME: 14:00 Assessment/Plan VTE Prophylaxis Risk score (from Nsg)>0 risk: 2 SCD applied (from Ns): Yes Pharmacological prophylaxis: heparin Lines/Catheters IV Catheter Type (from Nrsg): Central Line Central line still needed: Yes Urinary Cath still in place: No Assessment/Plan Hospital Course 1. ckd, hyperkalemia 2. c diff hx 3. Opiates dependency 4. Morbid obesity. 5. Diabetes. 6. Hypertension, 7. Gout, hx 8. Neuropathy. 9. History of congestive heart failure. 10. weakness 11. deconditioning 12. Non compliance, pt refused Valt[place], HD 13. Left shoulder chronic pain. Xray was reviewed from the last visit, it is arthrosis left acromioclavicular joint 14. constipation 15. UTI 16. right arm Picc line is not functioning Assessment/Plan - lidocaine -colonoscopy in future - EGD ? per GI - PPI BID - HD once a week -stool softners - Lactobacillus - cw with PT -- pt refused cortisone injecion per ortho - Wound care - US with thrombosed graft - Ortho consult however patient refused a cortisone shot - avoid narcotics as it would limit her ability to walk for PT as it happened last admission since pts goal is Physical therapy - low k diet, cw lasix -Tylenol on as needed headache - warm compresses to shoulder Result Diagram: 10/07/18 1056 10/07/18 1056 Results 24hrs Laboratory Tests Test 10/06/18 18:34 10/06/18 22:07 10/07/18 08:18 10/07/18 10:56 Bedside Glucose 161 187 127 White Blood Count 11.4 H Red Blood Count 4.26 Hemoglobin 11.3 L Hematocrit 36.8 L Mean Corpuscular Volume 86.4 Mean Corpuscular 26.5 L Hemoglobin Mean Corpuscular 30.7 L Hemoglobin Concent Red Cell Distribution 18.7 H Width Platelet Count 329 # Mean Platelet Volume 10.2 Immature Granulocytes % 0.600 H Neutrophils % 68.4 Lymphocytes % 19.8 Monocytes % 5.4 Eosinophils % 5.4 Basophils % 0.4 Nucleated Red Blood 0.0 Cells % Immature Granulocytes # 0.070 H Neutrophils # 7.8 H Lymphocytes # 2.3 Monocytes # 0.6 Eosinophils # 0.6 H Basophils # 0.1 Nucleated Red Blood 0.0 Cells # Sodium Level 138 Potassium Level 5.3 H Chloride Level 102 Carbon Dioxide Level 30 Anion Gap 6 Blood Urea Nitrogen 50 H Creatinine 2.97 H Est Glomerular Filtrat 16 L Rate mL/min Glucose Level 126 Calcium Level 9.0 Phosphorus Level 5.3 H Magnesium Level 1.7 Test 10/07/18 12:36 Bedside Glucose 120 Subjective 24 Hr Interval Summary Gastrointestinal: constipation, other (rectal pain) Exam/Review of Systems Vital Signs Vitals Vital Signs Date Temp Pulse Resp B/P (MAP) Pulse Ox O2 O2 Flow FiO2 Time Delivery Rate 10/07/18 97.9 81 18 120/59 91 Room Air 07:55 (79) Intake and Output 10/06/18 10/06/18 10/07/18 1515:00 23:00 07:00 IntakeIntake Total 500 ml 400 ml BalanceBalance 500 ml 400 ml Exam right chest perm cath Constitutional: alert, oriented Head: normocephalic Eyes: nl conjunctiva Additional Comments rectal: hemorrhoids and anal fissure Medications Medications Current Medications Acetaminophen (Tylenol Tab) 325 mg Q4H PRN PO MILD PAIN(1-3)OR ELEVATED TEMP Last administered on 10/01/18at 16:14; Admin Dose 325 MG; Start 07/20/18 at 23:00 Allopurinol (Zyloprim) 100 mg DAILY PO Last administered on 10/07/18 09:29; Admin Dose 100 MG; Start 07/21/18 at 09:00 IV Flush (NS 3 ml) 3 ml PER PROTOCOL IV ; Start 07/20/18 at 23:00 Acetaminophen (Tylenol Tab) 650 mg Q6H PRN PO PAIN LEVEL 1-3 OR FEVER Last administered on 09/26/18at 04:57; Admin Dose 650 MG; Start 07/20/18 at 23:00 Acetaminophen (Tylenol Supp) [address] PAIN LEVEL 1-3 OR FEVER; Start 07/20/18 at 23:00 Bisacodyl (Dulcolax) 5 mg DAILY PRN PO CONSTIPATION Last administered on 10/07/18 09:38; Admin Dose 5 MG; Start 07/20/18 at 23:00 Diagnostic Test (Pha) (Accu-Chek) 1 ea 02 XX Last administered on 09/29/18at 02:06; Admin Dose 1 EA; Start 07/21/18 at 02:00 Insulin Aspart (Novolog Insulin Pen) NOVOLOG *MILD* ALGORITHM WITH MEALS BEDTIME SC Last administered on 10/06/18 22:19; Admin Dose 1 UNIT; Start 07/21/18 at 07:50 Ergocalciferol (Drisdol) 50,000 unit Lacy@0900 PO Last administered on 10/02/18at 12:45; Admin Dose 50,000 UNIT; Start 07/24/18 at 09:00 Miscellaneous Information 1 ea NOTE XX ; Start 07/20/18 at 23:00 Glucose (Glutose) 15 gm Q15M PRN PO DECREASED GLUCOSE; Start 07/20/18 at 23:00 Glucose (Glutose) 22.5 gm Q15M PRN PO DECREASED GLUCOSE; Start 07/20/18 at 23:00 Dextrose (D50w Syringe) 25 ml Q15M PRN IV DECREASED GLUCOSE; Start 07/20/18 at 23:00 Dextrose (D50w Syringe) 50 ml Q15M PRN IV DECREASED GLUCOSE; Start 07/20/18 at 23:00 Glucagon (Glucagen) 1 mg Q15M PRN IM DECREASED GLUCOSE; Start 07/20/18 at 23:00 Glucose (Glutose) 15 gm Q15M PRN BUCCAL DECREASED GLUCOSE; Start 07/20/18 at 23:00 Melatonin (Melatonin) 3 mg HS PRN PO INSOMNIA Last administered on 10/07/18 00:57; Admin Dose 3 MG; Start 07/20/18 at 23:00 Heparin Sodium (Porcine) (Heparin (5000 Units/1ml)) 5,000 unit Q12 SC Last administered on 10/06/18 09:54; Admin Dose 5,000 UNIT; Start 07/21/18 at 21:00; Status Hold Diclofenac Sodium (Voltaren 1% Gel) 2 gm QID TP Last administered on 10/05/18 09:21; Admin Dose 2 GM; Start 07/22/18 at 13:00 Guaifenesin/ Dextromethorphan (Robitussin Dm Liquid Cup) 10 ml Q4H PRN PO COUGH; Start 07/30/18 at 15:00 Sodium Chloride (NS) -To prime the dialy... DIRECTED FOR HD PRN IV HD; Start 07/31/18 at 18:00 Loratadine (Claritin) 10 mg DAILY PRN PO ALLERGIC REACTION Last administered on 08/07/18 12:48; Admin Dose 10 MG; Start 08/07/18 at 12:30 Hydralazine HCl (Apresoline) 10 mg Q6H PRN PO ELEVATED BLOOD PRESSURE Last administered on 09/14/18 02:44; Admin Dose 10 MG; Start 08/08/18 at 04:30 Hydralazine HCl (Apresoline) 25 mg TID PO Last administered on 10/07/18 09:29; Admin Dose 25 MG; Start 08/08/18 at 13:00 Eye Lubricant (Artificial Tears Oph) 2 drop QID BOTH EYES Last administered on 10/07/18 09:30; Admin Dose 2 DROP; Start 08/09/18 at 11:00 Calcium Carbonate (Tums) 500 mg PRN PRN PO HEARTBURN Last administered on 10/05/18 12:34; Admin Dose 500 MG; Start 08/09/18 at 14:30 Loperamide HCl (Imodium Cap) 2 mg QID PRN PO DIARRHEA Last administered on 10/03/18 00:26; Admin Dose 2 MG; Start 08/21/18 at 16:00 Lactobacillus Acidophilus/ Rhamnosus (Culturelle) 1 cap BID PO Last administered on 10/07/18 09:29; Admin Dose 1 CAP; Start 08/21/18 at 21:00 Nystatin (Nystatin Powder) 1 applic BID TOP Last administered on 10/05/18 21:30; Admin Dose 1 APPLIC; Start 08/28/18 at 21:00 Tramadol HCl (Ultram) 100 mg Q6H PRN PO PAIN LEVEL 6-10 Last administered on 10/07/18 08:15; Admin Dose 100 MG; Start 09/01/18 at 02:00 Ondansetron HCl (Zofran Tab) 4 mg Q6H PRN PO NAUSEA AND/OR VOMITING Last administered on 09/10/18 07:58; Admin Dose 4 MG; Start 09/03/18 at 16:00 Mupirocin (Bactroban) 1 applic BID TOP Last administered on 10/05/18 09:22; Admin Dose 1 APPLIC; Start 09/10/18 at 14:00 Al Hydrox/Mg Hydrox/Simethicone (Mag-Al Plus) 30 ml Q4H PRN PO GASTROINTESTINAL UPSET; Start 09/10/18 at 18:00 Albumin Human 50 ml @ 100 mls/hr WITH DIALYSIS PRN IV SBP<90; Start 09/16/18 at 18:00 Furosemide (Lasix) 40 mg DAILY PO Last administered on 10/07/18 09:29; Admin Dose 40 MG; Start 09/21/18 at 14:30 Heparin Sodium (Porcine) (Heparin (1000 Units/ml)) 4,000 unit AFTER DIALYSIS CATHETER Last administered on 09/26/18 09:15; Admin Dose 4,000 UNIT; Start 09/23/18 at 14:00 Carbamide Peroxide (Debrox Otic) 3 drop BID PRN BOTH EARS EAR PAIN Last administered on 10/01/18 20:19; Admin Dose 3 DROP; Start 09/24/18 at 16:00 Ondansetron HCl (Zofran Inj) 4 mg Q6H PRN IV NAUSEA AND/OR VOMITING Last administered on 09/26/18at 08:42; Admin Dose 4 MG; Start 09/26/18 at 07:30 Gabapentin (Neurontin) 100 mg BID PRN PO NEUROPATHIC PAIN Last administered on 10/07/18 09:38; Admin Dose 100 MG; Start 09/27/18 at 21:00 Lactobacillus Acidophilus (Florajen3 Capsule) 1 each BID PO Last administered on 10/04/18 09:02; Admin Dose 1 EACH; Start 09/27/18 at 21:00 Psyllium Hydrophilic Mucilloid (Metamucil (Sugar Free)) 1 pkt BID PO Last administered on 10/07/18 09:29; Admin Dose 1 PKT; Start 09/27/18 at 21:00 Phenyleph/Shark Oil/Min Oil/Petrol (Formulation R Oint) [address] HEMORROID PAIN/ITCHING Last administered on 10/06/18 09:35; Admin Dose 1 APPLIC; Start 10/01/18 at 17:30 Pantoprazole (Protonix Tab) 40 mg BID@06,18 PO Last administered on 10/06/18 18:37; Admin Dose 40 MG; Start 10/06/18 at 18:00 Lidocaine (Lidocaine 5% Oint) 1 applic TID TOP Last administered on 10/07/18at 09:29; Admin Dose 1 APPLIC; Start 10/06/18 at 21:00 Docusate Sodium (Colace) 100 mg BID PRN PO CONSTIPATION Last administered on 10/07/18at 09:38; Admin Dose 100 MG; Start 10/06/18 at 15:30 WILLY MEDEIROS Oct 07, 2018 14:03
--- NOTE | 2018-10-07 16:07 | CONS ---
Date/Time of Note Date/Time of Note DATE: 10/07/18 TIME: 16:05 Assessment/Plan Assessment/Plan Hospital Course Impression: 1. epigastric pain 2. rectal pain secondary to anal fissure 3. GERD 4. ckd iii-iv now with the complications of hyperkalemia, now on HD 5. Morbid obesity. 6. Diabetes. 7. History of congestive heart failure. 8. chronic constipation Recommendations: - stool softners - Lactobacillus - change protonix to bid dosing to help with GERD - lidocaine ointment to help with pain with anal fissure - I offered to do EGD and colonoscopy tomorrow but patient wants to wait as her friends coming tomorrow - I will continue to follow patient in case patient changes her mind. Result Diagram: 10/07/18 1056 10/07/18 1056 Results 24hrs Laboratory Tests Test 10/06/18 18:34 10/06/18 22:07 10/07/18 08:18 10/07/18 10:56 Bedside Glucose 161 187 127 White Blood Count 11.4 H Red Blood Count 4.26 Hemoglobin 11.3 L Hematocrit 36.8 L Mean Corpuscular Volume 86.4 Mean Corpuscular 26.5 L Hemoglobin Mean Corpuscular 30.7 L Hemoglobin Concent Red Cell Distribution 18.7 H Width Platelet Count 329 # Mean Platelet Volume 10.2 Immature Granulocytes % 0.600 H Neutrophils % 68.4 Lymphocytes % 19.8 Monocytes % 5.4 Eosinophils % 5.4 Basophils % 0.4 Nucleated Red Blood 0.0 Cells % Immature Granulocytes # 0.070 H Neutrophils # 7.8 H Lymphocytes # 2.3 Monocytes # 0.6 Eosinophils # 0.6 H Basophils # 0.1 Nucleated Red Blood 0.0 Cells # Sodium Level 138 Potassium Level 5.3 H Chloride Level 102 Carbon Dioxide Level 30 Anion Gap 6 Blood Urea Nitrogen 50 H Creatinine 2.97 H Est Glomerular Filtrat 16 L Rate mL/min Glucose Level 126 Calcium Level 9.0 Phosphorus Level 5.3 H Magnesium Level 1.7 Test 10/07/18 12:36 Bedside Glucose 120 Consultation Date/Type/Reason Admit Date/Time Jul 23, 2018 at 16:13 Initial Consult Date 10/06/18 Type of Consult gastroenterology 24 HR Interval Summary Free Text/Dictation still complains of rectal pain scheduled EGD canceled because nurse told patient that EGD is canceled and fed patient without asking me first Exam/Review of Systems Vital Signs Vitals Vital Signs Date Temp Pulse Resp B/P (MAP) Pulse Ox O2 O2 Flow FiO2 Time Delivery Rate 10/07/18 97.9 81 18 120/59 91 Room Air 07:55 (79) Intake and Output 10/06/18 10/06/18 10/07/18 1515:00 23:00 07:00 IntakeIntake Total 500 ml 400 ml BalanceBalance 500 ml 400 ml Exam Constitutional: alert, oriented, well developed, obese Psych: no complaints, nl mood/affect Head: normocephalic, atraumatic Eyes: nl conjunctiva, EOMI, nl lids ENMT: nl external ears & nose, nl lips & teeth, nl nasal mucosa & septum Neck: supple, non-tender Respiratory: clear to auscultation, normal air movement Cardiovascular: regular rate and rhythm, nl pulses Gastrointestinal: soft, non-tender, bowel sounds Medications Medications Current Medications Acetaminophen (Tylenol Tab) 325 mg Q4H PRN PO MILD PAIN(1-3)OR ELEVATED TEMP Last administered on 10/01/18 16:14; Admin Dose 325 MG; Start 07/20/18 at 23:00 Allopurinol (Zyloprim) 100 mg DAILY PO Last administered on 10/07/18 09:29; Admin Dose 100 MG; Start 07/21/18 at 09:00 IV Flush (NS 3 ml) 3 ml PER PROTOCOL IV ; Start 07/20/18 at 23:00 Acetaminophen (Tylenol Tab) 650 mg Q6H PRN PO PAIN LEVEL 1-3 OR FEVER Last administered on 09/26/18 04:57; Admin Dose 650 MG; Start 07/20/18 at 23:00 Acetaminophen (Tylenol Supp) 650 mg Q6H PRN CA PAIN LEVEL 1-3 OR FEVER; Start 07/20/18 at 23:00 Bisacodyl (Dulcolax) 5 mg DAILY PRN PO CONSTIPATION Last administered on 10/07/18 09:38; Admin Dose 5 MG; Start 07/20/18 at 23:00 Diagnostic Test (Pha) (Accu-Chek) 1 ea 02 XX Last administered on 09/29/18 02:06; Admin Dose 1 EA; Start 07/21/18 at 02:00 Insulin Aspart (Novolog Insulin Pen) NOVOLOG *MILD* ALGORITHM WITH MEALS BEDTIME SC Last administered on 10/06/18 22:19; Admin Dose 1 UNIT; Start 07/21/18 at 07:50 Ergocalciferol (Drisdol) 50,000 unit Lacy@0900 PO Last administered on 10/02/18at 12:45; Admin Dose 50,000 UNIT; Start 07/24/18 at 09:00 Miscellaneous Information 1 ea NOTE XX ; Start 07/20/18 at 23:00 Glucose (Glutose) 15 gm Q15M PRN PO DECREASED GLUCOSE; Start 07/20/18 at 23:00 Glucose (Glutose) 22.5 gm Q15M PRN PO DECREASED GLUCOSE; Start 07/20/18 at 23:00 Dextrose (D50w Syringe) 25 ml Q15M PRN IV DECREASED GLUCOSE; Start 07/20/18 at 23:00 Dextrose (D50w Syringe) 50 ml Q15M PRN IV DECREASED GLUCOSE; Start 07/20/18 at 23:00 Glucagon (Glucagen) 1 mg Q15M PRN IM DECREASED GLUCOSE; Start 07/20/18 at 23:00 Glucose (Glutose) 15 gm Q15M PRN BUCCAL DECREASED GLUCOSE; Start 07/20/18 at 23:00 Melatonin (Melatonin) 3 mg HS PRN PO INSOMNIA Last administered on 10/07/18 00:57; Admin Dose 3 MG; Start 07/20/18 at 23:00 Heparin Sodium (Porcine) (Heparin (5000 Units/1ml)) 5,000 unit Q12 SC Last administered on 10/06/18 09:54; Admin Dose 5,000 UNIT; Start 07/21/18 at 21:00; Status Hold Diclofenac Sodium (Voltaren 1% Gel) 2 gm QID TP Last administered on 10/05/18 09:21; Admin Dose 2 GM; Start 07/22/18 at 13:00 Guaifenesin/ Dextromethorphan (Robitussin Dm Liquid Cup) 10 ml Q4H PRN PO COUGH; Start 07/30/18 at 15:00 Sodium Chloride (NS) -To prime the dialy... DIRECTED FOR HD PRN IV HD; Start 07/31/18 at 18:00 Loratadine (Claritin) 10 mg DAILY PRN PO ALLERGIC REACTION Last administered on 08/07/18 12:48; Admin Dose 10 MG; Start 08/07/18 at 12:30 Hydralazine HCl (Apresoline) 10 mg Q6H PRN PO ELEVATED BLOOD PRESSURE Last administered on 09/14/18 02:44; Admin Dose 10 MG; Start 08/08/18 at 04:30 Hydralazine HCl (Apresoline) 25 mg TID PO Last administered on 10/07/18 09:29; Admin Dose 25 MG; Start 08/08/18 at 13:00 Eye Lubricant (Artificial Tears Oph) 2 drop QID BOTH EYES Last administered on 10/07/18 09:30; Admin Dose 2 DROP; Start 08/09/18 at 11:00 Calcium Carbonate (Tums) 500 mg PRN PRN PO HEARTBURN Last administered on 10/05/18 12:34; Admin Dose 500 MG; Start 08/09/18 at 14:30 Loperamide HCl (Imodium Cap) 2 mg QID PRN PO DIARRHEA Last administered on 10/03/18 00:26; Admin Dose 2 MG; Start 08/21/18 at 16:00 Lactobacillus Acidophilus/ Rhamnosus (Culturelle) 1 cap BID PO Last administered on 10/07/18 09:29; Admin Dose 1 CAP; Start 08/21/18 at 21:00 Nystatin (Nystatin Powder) 1 applic BID TOP Last administered on 10/05/18 21:30; Admin Dose 1 APPLIC; Start 08/28/18 at 21:00 Tramadol HCl (Ultram) 100 mg Q6H PRN PO PAIN LEVEL 6-10 Last administered on 10/07/18 14:24; Admin Dose 100 MG; Start 09/01/18 at 02:00 Ondansetron HCl (Zofran Tab) 4 mg Q6H PRN PO NAUSEA AND/OR VOMITING Last administered on 09/10/18 07:58; Admin Dose 4 MG; Start 09/03/18 at 16:00 Mupirocin (Bactroban) 1 applic BID TOP Last administered on 10/05/18 09:22; Admin Dose 1 APPLIC; Start 09/10/18 at 14:00 Al Hydrox/Mg Hydrox/Simethicone (Mag-Al Plus) 30 ml Q4H PRN PO GASTROINTESTINAL UPSET; Start 09/10/18 at 18:00 Albumin Human 50 ml @ 100 mls/hr WITH DIALYSIS PRN IV SBP<90; Start 09/16/18 at 18:00 Furosemide (Lasix) 40 mg DAILY PO Last administered on 10/07/18 09:29; Admin Dose 40 MG; Start 09/21/18 at 14:30 Heparin Sodium (Porcine) (Heparin (1000 Units/ml)) 4,000 unit AFTER DIALYSIS CATHETER Last administered on 09/26/18 09:15; Admin Dose 4,000 UNIT; Start 09/23/18 at 14:00 Carbamide Peroxide (Debrox Otic) 3 drop BID PRN BOTH EARS EAR PAIN Last administered on 10/01/18 20:19; Admin Dose 3 DROP; Start 09/24/18 at 16:00 Ondansetron HCl (Zofran Inj) 4 mg Q6H PRN IV NAUSEA AND/OR VOMITING Last administered on 09/26/18at 08:42; Admin Dose 4 MG; Start 09/26/18 at 07:30 Gabapentin (Neurontin) 100 mg BID PRN PO NEUROPATHIC PAIN Last administered on 10/07/18 09:38; Admin Dose 100 MG; Start 09/27/18 at 21:00 Lactobacillus Acidophilus (Florajen3 Capsule) 1 each BID PO Last administered on 10/04/18 09:02; Admin Dose 1 EACH; Start 09/27/18 at 21:00 Psyllium Hydrophilic Mucilloid (Metamucil (Sugar Free)) 1 pkt BID PO Last administered on 10/07/18 09:29; Admin Dose 1 PKT; Start 09/27/18 at 21:00 Phenyleph/Shark Oil/Min Oil/Petrol (Formulation R Oint) 1 applic PRN PRN CA HEMORROID PAIN/ITCHING Last administered on 10/06/18 09:35; Admin Dose 1 APPLIC; Start 10/01/18 at 17:30 Pantoprazole (Protonix Tab) 40 mg BID@06,18 PO Last administered on 10/06/18 18:37; Admin Dose 40 MG; Start 10/06/18 at 18:00 Lidocaine (Lidocaine 5% Oint) 1 applic TID TOP Last administered on 10/07/18 13:00; Admin Dose 1 APPLIC; Start 10/06/18 at 21:00 Docusate Sodium (Colace) 100 mg BID PRN PO CONSTIPATION Last administered on 10/07/18at 09:38; Admin Dose 100 MG; Start 10/06/18 at 15:30 LEO CASTILLO MD Oct 07, 2018 16:07
[2018-10-07] MEDS ORDERED: traMADol 50 MG TAB PO ONE (16:30)
[2018-10-07 19:40] VITALS: BP 124/60; PULSE 74; RESP 20
[2018-10-08] MEDS: ACCU-CHEK XX SCH (02:00)
[2018-10-08 02:25] VITALS: BP 175/79; PULSE 83; RESP 20
[2018-10-08] MEDS: traMADol 50 MG TAB PO PRN ×5 (02:52→22:37)
[2018-10-08] MEDS: MELATONIN 3 MG TABLET PO PRN (02:52)
[2018-10-08] MEDS: PANTOPRAZOLE (EC) 40 MG TAB PO SCH ×2 (06:17→17:46)
[2018-10-08] MEDS: INSULIN ASPART [NOVOLOG] 3 ML PEN SC SCH ×4 (07:50→21:00)
[2018-10-08] MEDS: DICLOFENAC SODIUM 1% GEL 100 GM TUBE TP SCH ×4 (09:00→21:00)
[2018-10-08] MEDS: PSYLLIUM (SUGAR FREE) PACKET PO SCH ×2 (09:00→21:00)
[2018-10-08] MEDS: NYSTATIN 30 GM POWDER BTL TOP SCH ×2 (09:00→21:00)
[2018-10-08] MEDS: BALSAM PERU/CASTOR OIL 60 GM TUBE TOP SCH ×2 (09:00→21:00)
[2018-10-08] MEDS: L ACIDOPHIL/B LACTIS/B LONGUM CAPSULE PO SCH ×2 (09:00→21:00)
[2018-10-08] MEDS: ARTIFICIAL TEARS 15 ML OPH BOTH EYES SCH ×4 (09:00→21:00)
[2018-10-08] MEDS: MUPIROCIN 2% 22 GM OINT TOP SCH (09:00)
[2018-10-08] MEDS: LACTOBACILLUS RHAMNOSUS CAP PO SCH ×2 (09:00→21:00)
[2018-10-08] MEDS: ALLOPURINOL 100 MG TAB PO SCH (09:19)
[2018-10-08] MEDS: FUROSEMIDE 40 MG TAB PO SCH (09:19)
[2018-10-08] MEDS: LIDOCAINE 5% 35 GM OINT TOP SCH ×3 (09:20→21:00)
[2018-10-08] MEDS: DOCUSATE SODIUM 100 MG CAP PO PRN (09:33)
[2018-10-08] MEDS: BISACODYL (EC) 5 MG TAB PO PRN (09:33)
[2018-10-08 09:43] VITALS: BP 152/67; PULSE 77; RESP 18
--- NOTE | 2018-10-08 11:46 | PN ---
Date/Time of Note Date/Time of Note DATE: 10/08/18 TIME: 11:44 Assessment/Plan VTE Prophylaxis Risk score (from Ns)>0 risk: 3 SCD applied (from Ns): No SCD contraindicated: bilateral amputee Pharmacological prophylaxis: NA/contraindicated Pharm contraindication: bleeding Lines/Catheters IV Catheter Type (from Nrs): PERMACATH Urinary Cath still in place: No Assessment/Plan Hospital Course 1. ckd, hyperkalemia 2. c diff hx 3. Opiates dependency 4. Morbid obesity. 5. Diabetes. 6. Hypertension, 7. Gout, hx 8. Neuropathy. 9. History of congestive heart failure. 10. weakness 11. deconditioning 12. Non compliance, pt refused [place], HD 13. Left shoulder chronic pain. Xray was reviewed from the last visit, it is arthrosis left acromioclavicular joint 14. constipation 15. UTI 16. right arm Picc line is not functioning Assessment/Plan - lidocaine colonoscopy in future -refused bariatric surgery - EGD and colonoscopy was offered to pt, she is thinking - PPI BID - HD once a week, refused yesterday -stool softners - Lactobacillus - cw with PT -- pt refused cortisone injection per ortho - Wound care - US with thrombosed graft - Ortho consult however patient refused a cortisone shot - avoid narcotics as it would limit her ability to walk for PT as it happened last admission since pts goal is Physical therapy - low k diet, cw lasix -Tylenol on as needed headache - warm compresses to shoulder -placement issue, spoke to pt Result Diagram: 10/07/18 1056 10/07/18 1056 Results 24hrs Laboratory Tests Test 10/07/18 12:36 10/07/18 17:46 10/07/18 20:49 10/08/18 02:59 Bedside Glucose 120 166 247 H 144 Test 10/08/18 09:08 Bedside Glucose 110 Subjective 24 Hr Interval Summary Gastrointestinal: pain (rectal), constipation Exam/Review of Systems Vital Signs Vitals Vital Signs Date Temp Pulse Resp B/P (MAP) Pulse Ox O2 O2 Flow FiO2 Time Delivery Rate 10/08/18 98.4 77 18 152/67 92 Room Air 09:43 (95) Intake and Output 10/07/18 10/07/18 10/08/18 1515:00 23:00 07:00 IntakeIntake Total 600 ml OutputOutput Total 0 ml BalanceBalance 600 ml Exam right chest permcath Medications Medications Current Medications Acetaminophen (Tylenol Tab) 325 mg Q4H PRN PO MILD PAIN(1-3)OR ELEVATED TEMP Last administered on 10/01/18at 16:14; Admin Dose 325 MG; Start 07/20/18 at 23:00 Allopurinol (Zyloprim) 100 mg DAILY PO Last administered on 10/08/18 09:19; Admin Dose 100 MG; Start 07/21/18 at 09:00 IV Flush (NS 3 ml) 3 ml PER PROTOCOL IV ; Start 07/20/18 at 23:00 Acetaminophen (Tylenol Tab) 650 mg Q6H PRN PO PAIN LEVEL 1-3 OR FEVER Last administered on 09/26/18 04:57; Admin Dose 650 MG; Start 07/20/18 at 23:00 Acetaminophen (Tylenol Supp) 650 mg Q6H PRN [place] PAIN LEVEL 1-3 OR FEVER; Start 07/20/18 at 23:00 Bisacodyl (Dulcolax) 5 mg DAILY PRN PO CONSTIPATION Last administered on 10/08/18 09:33; Admin Dose 5 MG; Start 07/20/18 at 23:00 Diagnostic Test (Pha) (Accu-Chek) 1 ea 02 XX Last administered on 09/29/18at 02:06; Admin Dose 1 EA; Start 07/21/18 at 02:00 Insulin Aspart (Novolog Insulin Pen) NOVOLOG *MILD* ALGORITHM WITH MEALS BEDTIME SC Last administered on 10/07/18 20:53; Admin Dose 2 UNIT; Start 07/21/18 at 07:50 Ergocalciferol (Drisdol) 50,000 unit Lacy@0900 PO Last administered on 10/02/18at 12:45; Admin Dose 50,000 UNIT; Start 07/24/18 at 09:00 Miscellaneous Information 1 ea NOTE XX ; Start 07/20/18 at 23:00 Glucose (Glutose) 15 gm Q15M PRN PO DECREASED GLUCOSE; Start 07/20/18 at 23:00 Glucose (Glutose) 22.5 gm Q15M PRN PO DECREASED GLUCOSE; Start 07/20/18 at 23:00 Dextrose (D50w Syringe) 25 ml Q15M PRN IV DECREASED GLUCOSE; Start 07/20/18 at 23:00 Dextrose (D50w Syringe) 50 ml Q15M PRN IV DECREASED GLUCOSE; Start 07/20/18 at 23:00 Glucagon (Glucagen) 1 mg Q15M PRN IM DECREASED GLUCOSE; Start 07/20/18 at 23:00 Glucose (Glutose) 15 gm Q15M PRN BUCCAL DECREASED GLUCOSE; Start 07/20/18 at 23:00 Melatonin (Melatonin) 3 mg HS PRN PO INSOMNIA Last administered on 10/08/18 02:52; Admin Dose 3 MG; Start 07/20/18 at 23:00 Heparin Sodium (Porcine) (Heparin (5000 Units/1ml)) 5,000 unit Q12 SC Last administered on 10/06/18 09:54; Admin Dose 5,000 UNIT; Start 07/21/18 at 21:00; Status Hold Diclofenac Sodium (Voltaren 1% Gel) 2 gm QID TP Last administered on 10/07/18 20:33; Admin Dose 2 GM; Start 07/22/18 at 13:00 Guaifenesin/ Dextromethorphan (Robitussin Dm Liquid Cup) 10 ml Q4H PRN PO COUGH; Start 07/30/18 at 15:00 Sodium Chloride (NS) -To prime the dialy... DIRECTED FOR HD PRN IV HD; Start 07/31/18 at 18:00 Loratadine (Claritin) 10 mg DAILY PRN PO ALLERGIC REACTION Last administered on 08/07/18 12:48; Admin Dose 10 MG; Start 08/07/18 at 12:30 Hydralazine HCl (Apresoline) 10 mg Q6H PRN PO ELEVATED BLOOD PRESSURE Last administered on 09/14/18 02:44; Admin Dose 10 MG; Start 08/08/18 at 04:30 Hydralazine HCl (Apresoline) 25 mg TID PO Last administered on 10/08/18 09:19; Admin Dose 25 MG; Start 08/08/18 at 13:00 Eye Lubricant (Artificial Tears Oph) 2 drop QID BOTH EYES Last administered on 10/07/18 20:31; Admin Dose 2 DROP; Start 08/09/18 at 11:00 Calcium Carbonate (Tums) 500 mg PRN PRN PO HEARTBURN Last administered on 10/05/18 12:34; Admin Dose 500 MG; Start 08/09/18 at 14:30 Loperamide HCl (Imodium Cap) 2 mg QID PRN PO DIARRHEA Last administered on 10/03/18 00:26; Admin Dose 2 MG; Start 08/21/18 at 16:00 Lactobacillus Acidophilus/ Rhamnosus (Culturelle) 1 cap BID PO Last administered on 10/07/18 20:31; Admin Dose 1 CAP; Start 08/21/18 at 21:00 Nystatin (Nystatin Powder) 1 applic BID TOP Last administered on 10/07/18 20:33; Admin Dose 1 APPLIC; Start 08/28/18 at 21:00 Tramadol HCl (Ultram) 100 mg Q6H PRN PO PAIN LEVEL 6-10 Last administered on 10/08/18 09:02; Admin Dose 100 MG; Start 09/01/18 at 02:00 Ondansetron HCl (Zofran Tab) 4 mg Q6H PRN PO NAUSEA AND/OR VOMITING Last administered on 09/10/18 07:58; Admin Dose 4 MG; Start 09/03/18 at 16:00 Mupirocin (Bactroban) 1 applic BID TOP Last administered on 10/07/18 20:32; Admin Dose 1 APPLIC; Start 09/10/18 at 14:00 Al Hydrox/Mg Hydrox/Simethicone (Mag-Al Plus) 30 ml Q4H PRN PO GASTROINTESTINAL UPSET; Start 09/10/18 at 18:00 Albumin Human 50 ml @ 100 mls/hr WITH DIALYSIS PRN IV SBP<90; Start 09/16/18 at 18:00 Furosemide (Lasix) 40 mg DAILY PO Last administered on 10/08/18 09:19; Admin Dose 40 MG; Start 09/21/18 at 14:30 Heparin Sodium (Porcine) (Heparin (1000 Units/ml)) 4,000 unit AFTER DIALYSIS CATHETER Last administered on 09/26/18 09:15; Admin Dose 4,000 UNIT; Start 09/23/18 at 14:00 Carbamide Peroxide (Debrox Otic) 3 drop BID PRN BOTH EARS EAR PAIN Last administered on 10/01/18 20:19; Admin Dose 3 DROP; Start 09/24/18 at 16:00 Ondansetron HCl (Zofran Inj) 4 mg Q6H PRN IV NAUSEA AND/OR VOMITING Last administered on 09/26/18 08:42; Admin Dose 4 MG; Start 09/26/18 at 07:30 Gabapentin (Neurontin) 100 mg BID PRN PO NEUROPATHIC PAIN Last administered on 10/07/18 20:45; Admin Dose 100 MG; Start 09/27/18 at 21:00 Lactobacillus Acidophilus (Florajen3 Capsule) 1 each BID PO Last administered on 10/07/18 20:31; Admin Dose 1 EACH; Start 09/27/18 at 21:00 Psyllium Hydrophilic Mucilloid (Metamucil (Sugar Free)) 1 pkt BID PO Last administered on 10/07/18 20:32; Admin Dose 1 PKT; Start 09/27/18 at 21:00 Pantoprazole (Protonix Tab) 40 mg BID@,18 PO Last administered on 10/08/18 06:17; Admin Dose 40 MG; Start 10/06/18 at 18:00 Lidocaine (Lidocaine 5% Oint) 1 applic TID TOP Last administered on 10/08/18 09:20; Admin Dose 1 APPLIC; Start 10/06/18 at 21:00 Docusate Sodium (Colace) 100 mg BID PRN PO CONSTIPATION Last administered on 10/08/18 09:33; Admin Dose 100 MG; Start 10/06/18 at 15:30 Phenyleph/Shark Oil/Min Oil/Petrol (Formulation R Oint) 1 applic PRN PRN MD HEMORROID PAIN/ITCHING; Start 10/08/18 at 02:28 WILLY MEDEIROS Oct 08, 2018 11:46
[2018-10-08 14:07] VITALS: BP 135/75; PULSE 60; RESP 19
--- NOTE | 2018-10-08 15:58 | CONS ---
Date/Time of Note Date/Time of Note DATE: 10/08/18 TIME: 15:25 Assessment/Plan Assessment/Plan Hospital Course Impression: 1. epigastric pain 2. rectal pain secondary to anal fissure 3. GERD 4. ckd iii-iv now with the complications of hyperkalemia, now on HD 5. Morbid obesity. 6. Diabetes. 7. History of congestive heart failure. 8. chronic constipation Recommendations: - stool softners, I changed to standing order from PRN order. Patient needs to have soft stool to minimize worsening of the anal fissure - Lactobacillus - change protonix to bid dosing to help with GERD - lidocaine ointment to help with pain with anal fissure - I will continue to follow patient in case patient changes her mind and EGD and colonoscopy. Result Diagram: 10/07/18 1056 10/07/18 1056 Results 24hrs Laboratory Tests Test 10/07/18 17:46 10/07/18 20:49 10/08/18 02:59 10/08/18 09:08 Bedside Glucose 166 247 H 144 110 Test 10/08/18 12:40 Bedside Glucose 182 Consultation Date/Type/Reason Admit Date/Time Jul 23, 2018 at 16:13 Initial Consult Date 10/06/18 Type of Consult gastroenterology 24 HR Interval Summary Free Text/Dictation complains of anal pain Exam/Review of Systems Vital Signs Vitals Vital Signs Date Temp Pulse Resp B/P (MAP) Pulse Ox O2 O2 Flow FiO2 Time Delivery Rate 10/08/18 98.0 60 19 135/75 97 14:07 (95) 10/08/18 Room Air 09:43 Intake and Output 10/07/18 10/07/18 10/08/18 1515:00 23:00 07:00 IntakeIntake Total 600 ml OutputOutput Total 0 ml BalanceBalance 600 ml Exam Constitutional: alert, oriented, well developed, obese Psych: no complaints, nl mood/affect Head: normocephalic, atraumatic Eyes: nl conjunctiva, EOMI, nl lids ENMT: nl external ears & nose, nl lips & teeth, nl nasal mucosa & septum Neck: supple, non-tender Respiratory: clear to auscultation, normal air movement Cardiovascular: regular rate and rhythm, nl pulses Gastrointestinal: soft, non-tender, bowel sounds Neurological: nl mental status, nl speech, nl strength Medications Medications Current Medications Acetaminophen (Tylenol Tab) 325 mg Q4H PRN PO MILD PAIN(1-3)OR ELEVATED TEMP Last administered on 10/01/18at 16:14; Admin Dose 325 MG; Start 07/20/18 at 23:00 Allopurinol (Zyloprim) 100 mg DAILY PO Last administered on 10/08/18 09:19; Admin Dose 100 MG; Start 07/21/18 at 09:00 IV Flush (NS 3 ml) 3 ml PER PROTOCOL IV ; Start 07/20/18 at 23:00 Acetaminophen (Tylenol Tab) 650 mg Q6H PRN PO PAIN LEVEL 1-3 OR FEVER Last administered on 09/26/18 04:57; Admin Dose 650 MG; Start 07/20/18 at 23:00 Acetaminophen (Tylenol Supp) 650 mg Q6H PRN [place] PAIN LEVEL 1-3 OR FEVER; Start 07/20/18 at 23:00 Bisacodyl (Dulcolax) 5 mg DAILY PRN PO CONSTIPATION Last administered on 10/08/18 09:33; Admin Dose 5 MG; Start 07/20/18 at 23:00 Diagnostic Test (Pha) (Accu-Chek) 1 ea 02 XX Last administered on 09/29/18at 02:06; Admin Dose 1 EA; Start 07/21/18 at 02:00 Insulin Aspart (Novolog Insulin Pen) NOVOLOG *MILD* ALGORITHM WITH MEALS BEDTIME SC Last administered on 10/07/18 20:53; Admin Dose 2 UNIT; Start 07/21/18 at 07:50 Ergocalciferol (Drisdol) 50,000 unit Lacy@0900 PO Last administered on 10/02/18at 12:45; Admin Dose 50,000 UNIT; Start 07/24/18 at 09:00 Miscellaneous Information 1 ea NOTE XX ; Start 07/20/18 at 23:00 Glucose (Glutose) 15 gm Q15M PRN PO DECREASED GLUCOSE; Start 07/20/18 at 23:00 Glucose (Glutose) 22.5 gm Q15M PRN PO DECREASED GLUCOSE; Start 07/20/18 at 23:00 Dextrose (D50w Syringe) 25 ml Q15M PRN IV DECREASED GLUCOSE; Start 07/20/18 at 23:00 Dextrose (D50w Syringe) 50 ml Q15M PRN IV DECREASED GLUCOSE; Start 07/20/18 at 23:00 Glucagon (Glucagen) 1 mg Q15M PRN IM DECREASED GLUCOSE; Start 07/20/18 at 23:00 Glucose (Glutose) 15 gm Q15M PRN BUCCAL DECREASED GLUCOSE; Start 07/20/18 at 23:00 Melatonin (Melatonin) 3 mg HS PRN PO INSOMNIA Last administered on 10/08/18 02:52; Admin Dose 3 MG; Start 07/20/18 at 23:00 Heparin Sodium (Porcine) (Heparin (5000 Units/1ml)) 5,000 unit Q12 SC Last administered on 10/06/18 09:54; Admin Dose 5,000 UNIT; Start 07/21/18 at 21:00; Status Hold Diclofenac Sodium (Voltaren 1% Gel) 2 gm QID TP Last administered on 10/08/18 12:44; Admin Dose 2 GM; Start 07/22/18 at 13:00 Guaifenesin/ Dextromethorphan (Robitussin Dm Liquid Cup) 10 ml Q4H PRN PO COUGH; Start 07/30/18 at 15:00 Sodium Chloride (NS) -To prime the dialy... DIRECTED FOR HD PRN IV HD; Start 07/31/18 at 18:00 Loratadine (Claritin) 10 mg DAILY PRN PO ALLERGIC REACTION Last administered on 08/07/18at 12:48; Admin Dose 10 MG; Start 08/07/18 at 12:30 Hydralazine HCl (Apresoline) 10 mg Q6H PRN PO ELEVATED BLOOD PRESSURE Last administered on 09/14/18at 02:44; Admin Dose 10 MG; Start 08/08/18 at 04:30 Hydralazine HCl (Apresoline) 25 mg TID PO Last administered on 10/08/18 12:43; Admin Dose 25 MG; Start 08/08/18 at 13:00 Eye Lubricant (Artificial Tears Oph) 2 drop QID BOTH EYES Last administered on 10/08/18 12:43; Admin Dose 2 DROP; Start 08/09/18 at 11:00 Calcium Carbonate (Tums) 500 mg PRN PRN PO HEARTBURN Last administered on 10/05/18 12:34; Admin Dose 500 MG; Start 08/09/18 at 14:30 Loperamide HCl (Imodium Cap) 2 mg QID PRN PO DIARRHEA Last administered on 10/03/18 00:26; Admin Dose 2 MG; Start 08/21/18 at 16:00 Lactobacillus Acidophilus/ Rhamnosus (Culturelle) 1 cap BID PO Last administered on 10/07/18 20:31; Admin Dose 1 CAP; Start 08/21/18 at 21:00 Nystatin (Nystatin Powder) 1 applic BID TOP Last administered on 10/07/18 20:33; Admin Dose 1 APPLIC; Start 08/28/18 at 21:00 Tramadol HCl (Ultram) 100 mg Q6H PRN PO PAIN LEVEL 6-10 Last administered on 10/08/18 15:16; Admin Dose 100 MG; Start 09/01/18 at 02:00 Ondansetron HCl (Zofran Tab) 4 mg Q6H PRN PO NAUSEA AND/OR VOMITING Last administered on 09/10/18 07:58; Admin Dose 4 MG; Start 09/03/18 at 16:00 Al Hydrox/Mg Hydrox/Simethicone (Mag-Al Plus) 30 ml Q4H PRN PO GASTROINTESTINAL UPSET; Start 09/10/18 at 18:00 Albumin Human 50 ml @ 100 mls/hr WITH DIALYSIS PRN IV SBP<90; Start 09/16/18 at 18:00 Furosemide (Lasix) 40 mg DAILY PO Last administered on 10/08/18 09:19; Admin Dose 40 MG; Start 09/21/18 at 14:30 Heparin Sodium (Porcine) (Heparin (1000 Units/ml)) 4,000 unit AFTER DIALYSIS CATHETER Last administered on 09/26/18 09:15; Admin Dose 4,000 UNIT; Start 09/23/18 at 14:00 Carbamide Peroxide (Debrox Otic) 3 drop BID PRN BOTH EARS EAR PAIN Last administered on 10/01/18 20:19; Admin Dose 3 DROP; Start 09/24/18 at 16:00 Ondansetron HCl (Zofran Inj) 4 mg Q6H PRN IV NAUSEA AND/OR VOMITING Last administered on 09/26/18 08:42; Admin Dose 4 MG; Start 09/26/18 at 07:30 Gabapentin (Neurontin) 100 mg BID PRN PO NEUROPATHIC PAIN Last administered on 10/07/18 20:45; Admin Dose 100 MG; Start 09/27/18 at 21:00 Lactobacillus Acidophilus (Florajen3 Capsule) 1 each BID PO Last administered on 10/07/18 20:31; Admin Dose 1 EACH; Start 09/27/18 at 21:00 Psyllium Hydrophilic Mucilloid (Metamucil (Sugar Free)) 1 pkt BID PO Last administered on 10/07/18 20:32; Admin Dose 1 PKT; Start 09/27/18 at 21:00 Pantoprazole (Protonix Tab) 40 mg BID@,18 PO Last administered on 10/08/18 06:17; Admin Dose 40 MG; Start 10/06/18 at 18:00 Lidocaine (Lidocaine 5% Oint) 1 applic TID TOP Last administered on 10/08/18 12:44; Admin Dose 1 APPLIC; Start 10/06/18 at 21:00 Docusate Sodium (Colace) 100 mg BID PRN PO CONSTIPATION Last administered on 10/08/18 09:33; Admin Dose 100 MG; Start 10/06/18 at 15:30 Phenyleph/Shark Oil/Min Oil/Petrol (Formulation R Oint) 1 applic PRN PRN [place] HEMORROID PAIN/ITCHING; Start 10/08/18 at 02:28 Lactulose (Enulose) 20 gm Q6H PRN PO constipation; Start 10/08/18 at 12:00 LEO CASTILLO MD Oct 08, 2018 15:55
[2018-10-08] MEDS ORDERED: NEOMYC/POLYMYX/BACIT 0.9 GM OINT ONE (17:39)
[2018-10-08 19:50] VITALS: BP 120/63; PULSE 78; RESP 20
[2018-10-08] MEDS: DOCUSATE SODIUM 100 MG CAP PO SCH (22:21)
[2018-10-09] MEDS: ACCU-CHEK XX SCH (02:00)
[2018-10-09 02:20] VITALS: BP 165/65; PULSE 82; RESP 20
[2018-10-09] MEDS: traMADol 50 MG TAB PO PRN ×5 (03:30→22:01)
[2018-10-09] MEDS: PANTOPRAZOLE (EC) 40 MG TAB PO SCH ×3 (05:43→17:42)
[2018-10-09] MEDS: MELATONIN 3 MG TABLET PO PRN (05:43)
[2018-10-09 07:41] VITALS: BP 108/68; PULSE 98; RESP 16
[2018-10-09] MEDS: PSYLLIUM (SUGAR FREE) PACKET PO SCH ×2 (08:27→21:00)
[2018-10-09] MEDS: LACTOBACILLUS RHAMNOSUS CAP PO SCH ×2 (08:27→21:00)
[2018-10-09] MEDS: ALLOPURINOL 100 MG TAB PO SCH (08:27)
[2018-10-09] MEDS: L ACIDOPHIL/B LACTIS/B LONGUM CAPSULE PO SCH ×2 (08:27→21:00)
[2018-10-09] MEDS: BALSAM PERU/CASTOR OIL 60 GM TUBE TOP SCH ×2 (08:28→21:00)
[2018-10-09] MEDS: LIDOCAINE 5% 35 GM OINT TOP SCH ×3 (08:28→21:00)
[2018-10-09] MEDS: FUROSEMIDE 40 MG TAB PO SCH (08:28)
[2018-10-09] MEDS: NYSTATIN 30 GM POWDER BTL TOP SCH ×2 (08:29→21:00)
[2018-10-09] MEDS: DICLOFENAC SODIUM 1% GEL 100 GM TUBE TP SCH ×4 (08:29→21:00)
[2018-10-09] MEDS: INSULIN ASPART [NOVOLOG] 3 ML PEN SC SCH ×4 (08:35→21:00)
[2018-10-09] MEDS: ARTIFICIAL TEARS 15 ML OPH BOTH EYES SCH ×4 (08:36→21:00)
[2018-10-09] MEDS: BISACODYL (EC) 5 MG TAB PO PRN (10:40)
[2018-10-09] MEDS: ERGOCALCIFEROL 50,000 UNIT CAP PO SCH (10:40)
--- NOTE | 2018-10-09 11:04 | CONS ---
Date/Time of Note Date/Time of Note DATE: 10/09/18 TIME: 11:02 Assessment/Plan Assessment/Plan Hospital Course Impression: 1. epigastric pain 2. rectal pain secondary to anal fissure, improving 3. GERD 4. ckd iii-iv now with the complications of hyperkalemia, now on HD 5. Morbid obesity. 6. Diabetes. 7. History of congestive heart failure. 8. chronic constipation Recommendations: - continue standing order from PRN order. Patient needs to have soft stool to minimize worsening of the anal fissure - Lactobacillus - change protonix to bid dosing to help with GERD - lidocaine ointment to help with pain with anal fissure - I told patient I will not order narcotics for her rectal pain as it is improving. - Dr. Alvarado to take over GI care tomorrow Result Diagram: 10/07/18 1056 10/07/18 1056 Results 24hrs Laboratory Tests Test 10/08/18 12:40 10/08/18 17:44 10/09/18 08:25 Bedside Glucose 182 203 165 Consultation Date/Type/Reason Admit Date/Time Jul 23, 2018 at 16:13 Initial Consult Date 10/06/18 Type of Consult gastroenterology 24 HR Interval Summary Free Text/Dictation patient reports improved rectal pain Exam/Review of Systems Vital Signs Vitals Vital Signs Date Temp Pulse Resp B/P (MAP) Pulse Ox O2 O2 Flow FiO2 Time Delivery Rate 10/09/18 98.2 98 16 108/68 95 Room Air 07:41 (81) Intake and Output 10/08/18 10/08/18 10/09/18 1414:59 22:59 06:59 IntakeIntake Total 600 ml BalanceBalance 600 ml Exam Constitutional: alert, oriented, well developed, obese Psych: no complaints, nl mood/affect Head: normocephalic, atraumatic Eyes: nl conjunctiva, EOMI, nl lids ENMT: nl external ears & nose, nl lips & teeth, nl nasal mucosa & septum Neck: supple, non-tender Respiratory: clear to auscultation, normal air movement Cardiovascular: regular rate and rhythm, nl pulses Gastrointestinal: soft, non-tender, bowel sounds Medications Medications Current Medications Acetaminophen (Tylenol Tab) 325 mg Q4H PRN PO MILD PAIN(1-3)OR ELEVATED TEMP Last administered on 10/01/18 16:14; Admin Dose 325 MG; Start 07/20/18 at 23:00 Allopurinol (Zyloprim) 100 mg DAILY PO Last administered on 10/09/18 08:27; Admin Dose 100 MG; Start 07/21/18 at 09:00 IV Flush (NS 3 ml) 3 ml PER PROTOCOL IV ; Start 07/20/18 at 23:00 Acetaminophen (Tylenol Tab) 650 mg Q6H PRN PO PAIN LEVEL 1-3 OR FEVER Last administered on 09/26/18 04:57; Admin Dose 650 MG; Start 07/20/18 at 23:00 Acetaminophen (Tylenol Supp) 650 mg Q6H PRN [place] PAIN LEVEL 1-3 OR FEVER; Start 07/20/18 at 23:00 Bisacodyl (Dulcolax) 5 mg DAILY PRN PO CONSTIPATION Last administered on 10/09/18 10:40; Admin Dose 5 MG; Start 07/20/18 at 23:00 Diagnostic Test (Pha) (Accu-Chek) 1 ea 02 XX Last administered on 09/29/18 02:06; Admin Dose 1 EA; Start 07/21/18 at 02:00 Insulin Aspart (Novolog Insulin Pen) NOVOLOG *MILD* ALGORITHM WITH MEALS BEDTIME SC Last administered on 10/09/18 08:35; Admin Dose 1 UNIT; Start 07/21/18 at 07:50 Ergocalciferol (Drisdol) 50,000 unit Lacy@0900 PO Last administered on 10/09/18 10:40; Admin Dose 50,000 UNIT; Start 07/24/18 at 09:00 Miscellaneous Information 1 ea NOTE XX ; Start 07/20/18 at 23:00 Glucose (Glutose) 15 gm Q15M PRN PO DECREASED GLUCOSE; Start 07/20/18 at 23:00 Glucose (Glutose) 22.5 gm Q15M PRN PO DECREASED GLUCOSE; Start 07/20/18 at 23:00 Dextrose (D50w Syringe) 25 ml Q15M PRN IV DECREASED GLUCOSE; Start 07/20/18 at 23:00 Dextrose (D50w Syringe) 50 ml Q15M PRN IV DECREASED GLUCOSE; Start 07/20/18 at 23:00 Glucagon (Glucagen) 1 mg Q15M PRN IM DECREASED GLUCOSE; Start 07/20/18 at 23:00 Glucose (Glutose) 15 gm Q15M PRN BUCCAL DECREASED GLUCOSE; Start 07/20/18 at 23:00 Melatonin (Melatonin) 3 mg HS PRN PO INSOMNIA Last administered on 10/09/18 05:43; Admin Dose 3 MG; Start 07/20/18 at 23:00 Heparin Sodium (Porcine) (Heparin (5000 Units/1ml)) 5,000 unit Q12 SC Last administered on 10/06/18 09:54; Admin Dose 5,000 UNIT; Start 07/21/18 at 21:00; Status Hold Diclofenac Sodium (Voltaren 1% Gel) 2 gm QID TP Last administered on 10/08/18 17:54; Admin Dose 2 GM; Start 07/22/18 at 13:00 Guaifenesin/ Dextromethorphan (Robitussin Dm Liquid Cup) 10 ml Q4H PRN PO COUGH; Start 07/30/18 at 15:00 Sodium Chloride (NS) -To prime the dialy... DIRECTED FOR HD PRN IV HD; Start 07/31/18 at 18:00 Loratadine (Claritin) 10 mg DAILY PRN PO ALLERGIC REACTION Last administered on 08/07/18 12:48; Admin Dose 10 MG; Start 08/07/18 at 12:30 Hydralazine HCl (Apresoline) 10 mg Q6H PRN PO ELEVATED BLOOD PRESSURE Last administered on 09/14/18 02:44; Admin Dose 10 MG; Start 08/08/18 at 04:30 Hydralazine HCl (Apresoline) 25 mg TID PO Last administered on 10/08/18 22:22; Admin Dose 25 MG; Start 08/08/18 at 13:00 Eye Lubricant (Artificial Tears Oph) 2 drop QID BOTH EYES Last administered on 10/08/18 17:54; Admin Dose 2 DROP; Start 08/09/18 at 11:00 Calcium Carbonate (Tums) 500 mg PRN PRN PO HEARTBURN Last administered on 10/05/18 12:34; Admin Dose 500 MG; Start 08/09/18 at 14:30 Loperamide HCl (Imodium Cap) 2 mg QID PRN PO DIARRHEA Last administered on 10/03/18 00:26; Admin Dose 2 MG; Start 08/21/18 at 16:00 Lactobacillus Acidophilus/ Rhamnosus (Culturelle) 1 cap BID PO Last administered on 10/07/18 20:31; Admin Dose 1 CAP; Start 08/21/18 at 21:00 Nystatin (Nystatin Powder) 1 applic BID TOP Last administered on 10/09/18 08:29; Admin Dose 1 APPLIC; Start 08/28/18 at 21:00 Ondansetron HCl (Zofran Tab) 4 mg Q6H PRN PO NAUSEA AND/OR VOMITING Last administered on 09/10/18 07:58; Admin Dose 4 MG; Start 09/03/18 at 16:00 Al Hydrox/Mg Hydrox/Simethicone (Mag-Al Plus) 30 ml Q4H PRN PO GASTROINTESTINAL UPSET; Start 09/10/18 at 18:00 Albumin Human 50 ml @ 100 mls/hr WITH DIALYSIS PRN IV SBP<90; Start 09/16/18 at 18:00 Furosemide (Lasix) 40 mg DAILY PO Last administered on 10/09/18 08:28; Admin Dose 40 MG; Start 09/21/18 at 14:30 Heparin Sodium (Porcine) (Heparin (1000 Units/ml)) 4,000 unit AFTER DIALYSIS CATHETER Last administered on 09/26/18 09:15; Admin Dose 4,000 UNIT; Start 09/23/18 at 14:00 Carbamide Peroxide (Debrox Otic) 3 drop BID PRN BOTH EARS EAR PAIN Last administered on 10/01/18 20:19; Admin Dose 3 DROP; Start 09/24/18 at 16:00 Ondansetron HCl (Zofran Inj) 4 mg Q6H PRN IV NAUSEA AND/OR VOMITING Last administered on 09/26/18 08:42; Admin Dose 4 MG; Start 09/26/18 at 07:30 Gabapentin (Neurontin) 100 mg BID PRN PO NEUROPATHIC PAIN Last administered on 10/07/18 20:45; Admin Dose 100 MG; Start 09/27/18 at 21:00 Lactobacillus Acidophilus (Florajen3 Capsule) 1 each BID PO Last administered on 10/07/18 20:31; Admin Dose 1 EACH; Start 09/27/18 at 21:00 Psyllium Hydrophilic Mucilloid (Metamucil (Sugar Free)) 1 pkt BID PO Last administered on 10/07/18 20:32; Admin Dose 1 PKT; Start 09/27/18 at 21:00 Pantoprazole (Protonix Tab) 40 mg BID@06,18 PO Last administered on 10/08/18 17:46; Admin Dose 40 MG; Start 10/06/18 at 18:00 Lidocaine (Lidocaine 5% Oint) 1 applic TID TOP Last administered on 10/09/18 08:28; Admin Dose 1 APPLIC; Start 10/06/18 at 21:00 Phenyleph/Shark Oil/Min Oil/Petrol (Formulation R Oint) 1 applic PRN PRN [place] HEMORROID PAIN/ITCHING; Start 10/08/18 at 02:28 Lactulose (Enulose) 20 gm Q6H PRN PO constipation; Start 10/08/18 at 12:00 Docusate Sodium (Colace) 200 mg HS PO Last administered on 10/08/18at 22:21; Admin Dose 200 MG; Start 10/08/18 at 21:00 Tramadol HCl (Ultram) 100 mg Q4H PRN PO SEVERE PAIN LEVEL 7-10 Last administered on 10/09/18at 07:31; Admin Dose 100 MG; Start 10/08/18 at 18:30; Stop 10/09/18 at 18:29 Tramadol HCl (Ultram) 100 mg Q6H PRN PO PAIN LEVEL 6-10; Start 10/09/18 at 18:30 LEO CASTILLO MD Oct 09, 2018 11:04
[2018-10-09 14:44] VITALS: BP 155/68; PULSE 79; RESP 14
--- NOTE | 2018-10-09 16:44 | PDOCDIS ---
Discharge Instructions CONDITION [id number] Patient Condition: Enyhs1p Stable HOME CARE INSTRUCTIONS: [id number] Diet Instructions: [id number] Regular [id number] Special Diet: Ofceo1o CCD ACTIVITY: Itprw6Dz Activity Restrictions: [id number] Slowly Increase Activity Rest between Activity Avoid heavy lifting Do not Drive Do not operate Power Tool Avoid Heavy Housework [id number] Bathing Restrictions: Wyhow1q Shower FOLLOW UP/APPOINTMENTS Follow-up Plan F/U AT [facility] F[facility]U OWN PCP 1 WK F/U DR GARRISON 1 WK BIRAN ROBLEDO MD Oct 09, 2018 16:44
[2018-10-09] MEDS ORDERED: HEPA50002 SC (16:51)
[2018-10-09] MEDS ORDERED: GUAI120S26 PO (16:51)
[2018-10-09] MEDS ORDERED: LIDO35.415 TOP (16:51)
[2018-10-09] MEDS ORDERED: ONDA4TAB95 PO (16:51)
[2018-10-09] MEDS ORDERED: PANT40TA4 PO (16:51)
[2018-10-09] MEDS ORDERED: BISA5TAB6 PO (16:51)
[2018-10-09] MEDS ORDERED: HEP30MU30 CATHETER (16:51)
[2018-10-09] MEDS ORDERED: NOVO3I SC (16:51)
[2018-10-09] MEDS ORDERED: DICL100G33 TP (16:51)
[2018-10-09] MEDS ORDERED: NST15PW TOP (16:51)
[2018-10-09] MEDS ORDERED: L.AC460C PO (16:51)
[2018-10-09] MEDS ORDERED: PSYL3.4P5 PO (16:51)
[2018-10-09] MEDS ORDERED: LORA10TA3 PO (16:51)
[2018-10-09] MEDS ORDERED: Melatonin PO (16:51)
[2018-10-09] MEDS ORDERED: PRPH30O PR (16:51)
[2018-10-09] MEDS ORDERED: CALC200T26 PO (16:51)
[2018-10-09] MEDS ORDERED: TRAM50TA2 PO (16:51)
[2018-10-09] MEDS ORDERED: BALS60OI TOP (16:51)
[2018-10-09] MEDS ORDERED: LACT20SO2 PO (16:51)
--- NOTE | 2018-10-09 17:08 | PN ---
Date/Time of Note Date/Time of Note DATE: 10/09/18 TIME: 17:02 Assessment/Plan VTE Prophylaxis Risk score (from Ns)>0 risk: 5 SCD applied (from Ns): No SCD contraindicated: other Pharmacological prophylaxis: heparin Lines/Catheters IV [facility]from [facility]): PERMA CATH Urinary Cath still in place: No Reason Cath still needed: other (indicate) Assessment/Plan Hospital Course 1. . ckd on hd REFUSING HD TODAY 2. c diff hx 3. Chronic kidney disease, 4. Morbid obesity.W DECONDITIONING 5. Diabetes. 6. Hypertension, 7. Gout.hx 8. Neuropathy. 9. History of congestive heart failure. 10 weakness 11 deconditioning 13 NON COMPLIANCEW TREATMENT 14 s/p Fall ? 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 DON TO HELP IN DISCHARGE PLANNING TO SNF) Exam/Review of Systems Vital Signs Vitals Vital Signs Date Temp Pulse Resp B/P (MAP) Pulse Ox O2 O2 Flow FiO2 Time Delivery Rate 10/09/18 98.0 79 14 155/68 95 Room Air 14:44 (97) Intake and Output 10/08/18 10/08/18 10/09/18 1515:00 23:00 07:00 IntakeIntake Total 600 ml BalanceBalance 600 ml Exam Respiratory: clear to auscultation Cardiovascular: regular rate and rhythm Gastrointestinal: soft Medications Medications Current Medications Acetaminophen (Tylenol Tab) 325 mg Q4H PRN PO MILD PAIN(1-3)OR ELEVATED TEMP Last administered on 10/01/18at 16:14; Admin Dose 325 MG; Start 07/20/18 at 23:00 Allopurinol (Zyloprim) 100 mg DAILY PO Last administered on 10/09/18at 08:27; Admin Dose 100 MG; Start 07/21/18 at 09:00 IV Flush (NS 3 ml) 3 ml PER PROTOCOL IV ; Start 07/20/18 at 23:00 Acetaminophen (Tylenol Tab) 650 mg Q6H PRN PO PAIN LEVEL 1-3 OR FEVER Last administered on 09/26/18 04:57; Admin Dose 650 MG; Start 07/20/18 at 23:00 Acetaminophen (Tylenol Supp) 650 mg Q6H PRN [place] PAIN LEVEL 1-3 OR FEVER; Start 07/20/18 at 23:00 Bisacodyl (Dulcolax) 5 mg DAILY PRN PO CONSTIPATION Last administered on 10/09/18 10:40; Admin Dose 5 MG; Start 07/20/18 at 23:00 Diagnostic Test (Pha) (Accu-Chek) 1 ea 02 XX Last administered on 09/29/18 02:06; Admin Dose 1 EA; Start 07/21/18 at 02:00 Insulin Aspart (Novolog Insulin Pen) NOVOLOG *MILD* ALGORITHM WITH MEALS BEDTIME SC Last administered on 10/09/18 12:52; Admin Dose 1 UNIT; Start 07/21/18 at 07:50 Ergocalciferol (Drisdol) 50,000 unit Lacy@0900 PO Last administered on 10/09/18 10:40; Admin Dose 50,000 UNIT; Start 07/24/18 at 09:00 Miscellaneous Information 1 ea NOTE XX ; Start 07/20/18 at 23:00 Glucose (Glutose) 15 gm Q15M PRN PO DECREASED GLUCOSE; Start 07/20/18 at 23:00 Glucose (Glutose) 22.5 gm Q15M PRN PO DECREASED GLUCOSE; Start 07/20/18 at 23:00 Dextrose (D50w Syringe) 25 ml Q15M PRN IV DECREASED GLUCOSE; Start 07/20/18 at 23:00 Dextrose (D50w Syringe) 50 ml Q15M PRN IV DECREASED GLUCOSE; Start 07/20/18 at 23:00 Glucagon (Glucagen) 1 mg Q15M PRN IM DECREASED GLUCOSE; Start 07/20/18 at 23:00 Glucose (Glutose) 15 gm Q15M PRN BUCCAL DECREASED GLUCOSE; Start 07/20/18 at 23:00 Melatonin (Melatonin) 3 mg HS PRN PO INSOMNIA Last administered on 10/09/18 05:43; Admin Dose 3 MG; Start 07/20/18 at 23:00 Heparin Sodium (Porcine) (Heparin (5000 Units/1ml)) 5,000 unit Q12 SC Last administered on 10/06/18 09:54; Admin Dose 5,000 UNIT; Start 07/21/18 at 21:00 Diclofenac Sodium (Voltaren 1% Gel) 2 gm QID TP Last administered on 10/08/18 17:54; Admin Dose 2 GM; Start 07/22/18 at 13:00 Guaifenesin/ Dextromethorphan (Robitussin Dm Liquid Cup) 10 ml Q4H PRN PO COUGH; Start 07/30/18 at 15:00 Sodium Chloride (NS) -To prime the dialy... DIRECTED FOR HD PRN IV HD; Start 07/31/18 at 18:00 Loratadine (Claritin) 10 mg DAILY PRN PO ALLERGIC REACTION Last administered on 08/07/18at 12:48; Admin Dose 10 MG; Start 08/07/18 at 12:30 Hydralazine HCl (Apresoline) 10 mg Q6H PRN PO ELEVATED BLOOD PRESSURE Last administered on 09/14/18 02:44; Admin Dose 10 MG; Start 08/08/18 at 04:30 Hydralazine HCl (Apresoline) 25 mg TID PO Last administered on 10/08/18 22:22; Admin Dose 25 MG; Start 08/08/18 at 13:00 Eye Lubricant (Artificial Tears Oph) 2 drop QID BOTH EYES Last administered on 10/08/18 17:54; Admin Dose 2 DROP; Start 08/09/18 at 11:00 Calcium Carbonate (Tums) 500 mg PRN PRN PO HEARTBURN Last administered on 10/05/18 12:34; Admin Dose 500 MG; Start 08/09/18 at 14:30 Loperamide HCl (Imodium Cap) 2 mg QID PRN PO DIARRHEA Last administered on 10/03/18 00:26; Admin Dose 2 MG; Start 08/21/18 at 16:00 Lactobacillus Acidophilus/ Rhamnosus (Culturelle) 1 cap BID PO Last administered on 10/07/18 20:31; Admin Dose 1 CAP; Start 08/21/18 at 21:00 Nystatin (Nystatin Powder) 1 applic BID TOP Last administered on 10/09/18 08:29; Admin Dose 1 APPLIC; Start 08/28/18 at 21:00 Ondansetron HCl (Zofran Tab) 4 mg Q6H PRN PO NAUSEA AND/OR VOMITING Last administered on 09/10/18at 07:58; Admin Dose 4 MG; Start 09/03/18 at 16:00 Al Hydrox/Mg Hydrox/Simethicone (Mag-Al Plus) 30 ml Q4H PRN PO GASTROINTESTINAL UPSET; Start 09/10/18 at 18:00 Albumin Human 50 ml @ 100 mls/hr WITH DIALYSIS PRN IV SBP<90; Start 09/16/18 at 18:00 Furosemide (Lasix) 40 mg DAILY PO Last administered on 10/09/18 08:28; Admin Dose 40 MG; Start 09/21/18 at 14:30 Heparin Sodium (Porcine) (Heparin (1000 Units/ml)) 4,000 unit AFTER DIALYSIS CATHETER Last administered on 09/26/18 09:15; Admin Dose 4,000 UNIT; Start 09/23/18 at 14:00 Carbamide Peroxide (Debrox Otic) 3 drop BID PRN BOTH EARS EAR PAIN Last administered on 10/01/18 20:19; Admin Dose 3 DROP; Start 09/24/18 at 16:00 Ondansetron HCl (Zofran Inj) 4 mg Q6H PRN IV NAUSEA AND/OR VOMITING Last administered on 09/26/18 08:42; Admin Dose 4 MG; Start 09/26/18 at 07:30 Gabapentin (Neurontin) 100 mg BID PRN PO NEUROPATHIC PAIN Last administered on 10/07/18 20:45; Admin Dose 100 MG; Start 09/27/18 at 21:00 Lactobacillus Acidophilus (Florajen3 Capsule) 1 each BID PO Last administered on 10/07/18 20:31; Admin Dose 1 EACH; Start 09/27/18 at 21:00 Psyllium Hydrophilic Mucilloid (Metamucil (Sugar Free)) 1 pkt BID PO Last administered on 10/07/18 20:32; Admin Dose 1 PKT; Start 09/27/18 at 21:00 Pantoprazole (Protonix Tab) 40 mg BID@06,18 PO Last administered on 10/08/18 17:46; Admin Dose 40 MG; Start 10/06/18 at 18:00 Lidocaine (Lidocaine 5% Oint) 1 applic TID TOP Last administered on 10/09/18at 08:28; Admin Dose 1 APPLIC; Start 10/06/18 at 21:00 Phenyleph/Shark Oil/Min Oil/Petrol (Formulation R Oint) 1 applic PRN PRN RI HEMORROID PAIN/ITCHING; Start 10/08/18 at 02:28 Lactulose (Enulose) 20 gm Q6H PRN PO constipation; Start 10/08/18 at 12:00 Docusate Sodium (Colace) 200 mg HS PO Last administered on 10/08/18at 22:21; Admin Dose 200 MG; Start 10/08/18 at 21:00 Tramadol HCl (Ultram) 100 mg Q4H PRN PO SEVERE PAIN LEVEL 7-10 Last administered on 10/09/18at 16:56; Admin Dose 100 MG; Start 10/08/18 at 18:30; Stop 10/09/18 at 18:29 Tramadol HCl (Ultram) 100 mg Q6H PRN PO PAIN LEVEL 6-10; Start 10/09/18 at 18:30 BRIAN ROBLEDO MD Oct 09, 2018 17:08
[2018-10-09 19:41] VITALS: BP 131/92; PULSE 65; RESP 16
[2018-10-09] MEDS: DOCUSATE SODIUM 100 MG CAP PO SCH (21:50)
[2018-10-09] MEDS: NAPHAZOLINE 0.012% 15 ML OPH BOTH EYES SCH (21:51)
[2018-10-09] MEDS: HEPARIN 5,000 UNIT/1 ML VIAL SC SCH (21:54)
[2018-10-10] MEDS: MELATONIN 3 MG TABLET PO PRN (01:20)
[2018-10-10 01:48] VITALS: BP 152/69; PULSE 62; RESP 16
[2018-10-10] MEDS: ACCU-CHEK XX SCH (02:00)
[2018-10-10] MEDS: traMADol 50 MG TAB PO PRN ×4 (03:54→19:04)
[2018-10-10] MEDS: PANTOPRAZOLE (EC) 40 MG TAB PO SCH ×2 (06:00→18:00)
--- NOTE | 2018-10-10 07:24 | PN ---
Date/Time of Note Date/Time of Note DATE: 10/10/18 TIME: 07:21 Assessment/Plan VTE Prophylaxis Risk score (from Nsg)>0 risk: 5 SCD applied (from Ns): No SCD contraindicated: patient refusal Pharmacological prophylaxis: heparin Lines/Catheters IV Catheter Type (from Nrsg): PERMA CATH Urinary Cath still in place: No Assessment/Plan Hospital Course 58 yo female presents for whole body pain for which we were consulted for rectal pain 1. Rectal pain secondary to anal fissure -improved 2. Anal fissure 3. Constipation, chronic 4. GERD 5. CKD 3, now on HD 6. Morbid obesity 7. Diabetes mellitus 8. H/O CHF Plan Continue with bowel regimen, add miralax 17 gm qd, use prn dulcolax Lactobacillus PPI BID Lidocaine for rectal pain Pt examined and plan of care discussed with Dr. Alvarado Result Diagram: 10/07/18 1056 10/07/18 1056 Results 24hrs Laboratory Tests Test 10/09/18 08:25 10/09/18 12:45 10/09/18 17:38 10/09/18 22:06 Bedside Glucose 165 154 156 139 Subjective 24 Hr Interval Summary Free Text/Dictation Rectal pain and epigastric pain improved. RN states pt picks and chooses which medications she feels like taking Exam/Review of Systems Vital Signs Vitals Vital Signs Date Temp Pulse Resp B/P (MAP) Pulse Ox O2 O2 Flow FiO2 Time Delivery Rate 10/10/18 98.6 62 16 152/69 93 Room Air 01:48 (96) Intake and Output 10/09/18 10/09/18 10/10/18 1515:00 23:00 07:00 IntakeIntake Total 300 ml 300 ml 400 ml BalanceBalance 300 ml 300 ml 400 ml Exam Constitutional: alert Psych: no complaints Head: normocephalic Eyes: PERRL ENMT: mucosa pink and moist Respiratory: clear to auscultation Cardiovascular: regular rate and rhythm Gastrointestinal: soft, tender Musculoskeletal: nl gait and stance Neurological: nl mental status Medications Medications Current Medications Acetaminophen (Tylenol Tab) 325 mg Q4H PRN PO MILD PAIN(1-3)OR ELEVATED TEMP Last administered on 10/01/18at 16:14; Admin Dose 325 MG; Start 07/20/18 at 23:00 Allopurinol (Zyloprim) 100 mg DAILY PO Last administered on 10/09/18 08:27; Admin Dose 100 MG; Start 07/21/18 at 09:00 IV Flush (NS 3 ml) 3 ml PER PROTOCOL IV ; Start 07/20/18 at 23:00 Acetaminophen (Tylenol Tab) 650 mg Q6H PRN PO PAIN LEVEL 1-3 OR FEVER Last administered on 09/26/18at 04:57; Admin Dose 650 MG; Start 07/20/18 at 23:00 Acetaminophen (Tylenol Supp) 650 mg Q6H PRN [place] PAIN LEVEL 1-3 OR FEVER; Start 07/20/18 at 23:00 Bisacodyl (Dulcolax) 5 mg DAILY PRN PO CONSTIPATION Last administered on 10/09/18 10:40; Admin Dose 5 MG; Start 07/20/18 at 23:00 Diagnostic Test (Pha) (Accu-Chek) 1 ea 02 XX Last administered on 09/29/18at 02:06; Admin Dose 1 EA; Start 07/21/18 at 02:00 Insulin Aspart (Novolog Insulin Pen) NOVOLOG *MILD* ALGORITHM WITH MEALS BEDTIME SC Last administered on 10/09/18 17:40; Admin Dose 1 UNIT; Start 07/21/18 at 07:50 Ergocalciferol (Drisdol) 50,000 unit Lacy@0900 PO Last administered on 10/09/18 1 0:40; Admin Dose 50,000 UNIT; Start 07/24/18 at 09:00 Miscellaneous Information 1 ea NOTE XX ; Start 07/20/18 at 23:00 Glucose (Glutose) 15 gm Q15M PRN PO DECREASED GLUCOSE; Start 07/20/18 at 23:00 Glucose (Glutose) 22.5 gm Q15M PRN PO DECREASED GLUCOSE; Start 07/20/18 at 23:00 Dextrose (D50w Syringe) 25 ml Q15M PRN IV DECREASED GLUCOSE; Start 07/20/18 at 23:00 Dextrose (D50w Syringe) 50 ml Q15M PRN IV DECREASED GLUCOSE; Start 07/20/18 at 23:00 Glucagon (Glucagen) 1 mg Q15M PRN IM DECREASED GLUCOSE; Start 07/20/18 at 23:00 Glucose (Glutose) 15 gm Q15M PRN BUCCAL DECREASED GLUCOSE; Start 07/20/18 at 23:00 Melatonin (Melatonin) 3 mg HS PRN PO INSOMNIA Last administered on 10/10/18 01:20; Admin Dose 3 MG; Start 07/20/18 at 23:00 Heparin Sodium (Porcine) (Heparin (5000 Units/1ml)) 5,000 unit Q12 SC Last administered on 10/09/18 21:54; Admin Dose 5,000 UNIT; Start 07/21/18 at 21:00 Diclofenac Sodium (Voltaren 1% Gel) 2 gm QID TP Last administered on 10/08/18 17:54; Admin Dose 2 GM; Start 07/22/18 at 13:00 Guaifenesin/ Dextromethorphan (Robitussin Dm Liquid Cup) 10 ml Q4H PRN PO COUGH; Start 07/30/18 at 15:00 Sodium Chloride (NS) -To prime the dialy... DIRECTED FOR HD PRN IV HD; Start 07/31/18 at 18:00 Loratadine (Claritin) 10 mg DAILY PRN PO ALLERGIC REACTION Last administered on 08/07/18 12:48; Admin Dose 10 MG; Start 08/07/18 at 12:30 Hydralazine HCl (Apresoline) 10 mg Q6H PRN PO ELEVATED BLOOD PRESSURE Last administered on 09/14/18 02:44; Admin Dose 10 MG; Start 08/08/18 at 04:30 Hydralazine HCl (Apresoline) 25 mg TID PO Last administered on 10/09/18 22:00; Admin Dose 25 MG; Start 08/08/18 at 13:00 Eye Lubricant (Artificial Tears Oph) 2 drop QID BOTH EYES Last administered on 10/08/18 17:54; Admin Dose 2 DROP; Start 08/09/18 at 11:00 Calcium Carbonate (Tums) 500 mg PRN PRN PO HEARTBURN Last administered on 10/05/18 12:34; Admin Dose 500 MG; Start 08/09/18 at 14:30 Loperamide HCl (Imodium Cap) 2 mg QID PRN PO DIARRHEA Last administered on 10/03/18 00:26; Admin Dose 2 MG; Start 08/21/18 at 16:00 Lactobacillus Acidophilus/ Rhamnosus (Culturelle) 1 cap BID PO Last administered on 10/07/18 20:31; Admin Dose 1 CAP; Start 08/21/18 at 21:00 Nystatin (Nystatin Powder) 1 applic BID TOP Last administered on 10/09/18 08:29; Admin Dose 1 APPLIC; Start 08/28/18 at 21:00 Ondansetron HCl (Zofran Tab) 4 mg Q6H PRN PO NAUSEA AND/OR VOMITING Last administered on 09/10/18 07:58; Admin Dose 4 MG; Start 09/03/18 at 16:00 Al Hydrox/Mg Hydrox/Simethicone (Mag-Al Plus) 30 ml Q4H PRN PO GASTROINTESTINAL UPSET; Start 09/10/18 at 18:00 Albumin Human 50 ml @ 100 mls/hr WITH DIALYSIS PRN IV SBP<90; Start 09/16/18 at 18:00 Furosemide (Lasix) 40 mg DAILY PO Last administered on 10/09/18 08:28; Admin Dose 40 MG; Start 09/21/18 at 14:30 Heparin Sodium (Porcine) (Heparin (1000 Units/ml)) 4,000 unit AFTER DIALYSIS CATHETER Last administered on 09/26/18 09:15; Admin Dose 4,000 UNIT; Start 09/23/18 at 14:00 Carbamide Peroxide (Debrox Otic) 3 drop BID PRN BOTH EARS EAR PAIN Last administered on 10/01/18 20:19; Admin Dose 3 DROP; Start 09/24/18 at 16:00 Ondansetron HCl (Zofran Inj) 4 mg Q6H PRN IV NAUSEA AND/OR VOMITING Last administered on 09/26/18 08:42; Admin Dose 4 MG; Start 09/26/18 at 07:30 Gabapentin (Neurontin) 100 mg BID PRN PO NEUROPATHIC PAIN Last administered on 10/07/18 20:45; Admin Dose 100 MG; Start 09/27/18 at 21:00 Lactobacillus Acidophilus (Florajen3 Capsule) 1 each BID PO Last administered on 10/07/18 20:31; Admin Dose 1 EACH; Start 09/27/18 at 21:00 Psyllium Hydrophilic Mucilloid (Metamucil (Sugar Free)) 1 pkt BID PO Last administered on 10/07/18 20:32; Admin Dose 1 PKT; Start 09/27/18 at 21:00 Pantoprazole (Protonix Tab) 40 mg BID@06,18 PO Last administered on 10/08/18at 17:46; Admin Dose 40 MG; Start 10/06/18 at 18:00 Lidocaine (Lidocaine 5% Oint) 1 applic TID TOP Last administered on 10/09/18at 08:28; Admin Dose 1 APPLIC; Start 10/06/18 at 21:00 Phenyleph/Shark Oil/Min Oil/Petrol (Formulation R Oint) 1 applic PRN PRN [place] HEMORROID PAIN/ITCHING; Start 10/08/18 at 02:28 Lactulose (Enulose) 20 gm Q6H PRN PO constipation; Start 10/08/18 at 12:00 Docusate Sodium (Colace) 200 mg HS PO Last administered on 10/09/18at 21:50; Admin Dose 200 MG; Start 10/08/18 at 21:00 Tramadol HCl (Ultram) 100 mg Q6H PRN PO PAIN LEVEL 6-10 Last administered on 10/10/18 03:54; Admin Dose 100 MG; Start 10/09/18 at 18:30 Naphazoline HCl (Clear Eyes / Naphcon) 2 drop BID BOTH EYES Last administered on 10/09/18 21:51; Admin Dose 2 DROP; Start 10/09/18 at 21:00; Stop 10/14/18 at 21:00 CHARLIE STRAUSS Oct 10, 2018 07:24
[2018-10-10] MEDS: INSULIN ASPART [NOVOLOG] 3 ML PEN SC SCH ×4 (07:50→21:39)
[2018-10-10] MEDS: LACTOBACILLUS RHAMNOSUS CAP PO SCH ×2 (08:38→21:00)
[2018-10-10] MEDS: PSYLLIUM (SUGAR FREE) PACKET PO SCH ×2 (08:39→21:00)
[2018-10-10] MEDS: L ACIDOPHIL/B LACTIS/B LONGUM CAPSULE PO SCH ×2 (08:39→21:00)
[2018-10-10] MEDS: FUROSEMIDE 40 MG TAB PO SCH (08:41)
[2018-10-10] MEDS: ALLOPURINOL 100 MG TAB PO SCH (08:41)
[2018-10-10] MEDS: POLYETHYLENE GLYCOL 17 GM PACKET NGT SCH ×2 (08:44→21:00)
[2018-10-10] MEDS: HEPARIN 5,000 UNIT/1 ML VIAL SC SCH ×2 (08:49→21:38)
[2018-10-10] MEDS: GABAPENTIN 100 MG CAP PO PRN (08:50)
[2018-10-10] MEDS: DICLOFENAC SODIUM 1% GEL 100 GM TUBE TP SCH ×4 (09:00→21:00)
[2018-10-10] MEDS: BALSAM PERU/CASTOR OIL 60 GM TUBE TOP SCH ×2 (09:00→21:00)
[2018-10-10] MEDS: LIDOCAINE 5% 35 GM OINT TOP SCH ×3 (09:00→21:00)
[2018-10-10] MEDS: NAPHAZOLINE 0.012% 15 ML OPH BOTH EYES SCH ×2 (09:00→18:02)
[2018-10-10] MEDS: NYSTATIN 30 GM POWDER BTL TOP SCH ×2 (09:00→21:00)
[2018-10-10] MEDS: ARTIFICIAL TEARS 15 ML OPH BOTH EYES SCH ×4 (09:00→21:00)
--- NOTE | 2018-10-10 13:11 | PN ---
Date/Time of Note Date/Time of Note DATE: 10/10/18 TIME: 13:09 Assessment/Plan VTE Prophylaxis Risk score (from Nsg)>0 risk: 9 SCD applied (from Ns): No SCD contraindicated: low risk/ambulating Pharmacological prophylaxis: NA/contraindicated Pharm contraindication: low risk/ambulating Lines/Catheters [facility] PERMA CATH Urinary Cath still in place: No Assessment/Plan Hospital Course 58 y/o with 1. . ckd iii-iv now with the complications of hyperkalemia, patient has been refusing Kayexalate Veltaastrida has also been refusing dialysis, patient was explained the risks and consequences and patient completely understands the risks and consequences, now agreed, on and off Hd once a week 2. c diff hx 3. Chronic kidney disease, 4. Morbid obesity. 5. Diabetes. 6. Hypertension, 7. Gout.hx 8. Neuropathy. 9. History of congestive heart failure. 10 weakness 11 deconditioning 13 Left shoulde pain, TTP ? Frozen shoulder , shoulder impingement 14 s/p Fall ? AMS confusion likley due to UTI 15 uti klebsiella and enterococcus 16 diarrhea 15 vomtiing/? contipation> refuse labs again 16 Dizziness> chronic ? Postural 17 UTI 18 rectal pain with fissure Plan - HD once a week - PPI BID - HD once a week -stool softners - Lactobacillus - cw with PT -- pt refused cortisone injecion per ortho - Wound care - US with thrombosed graft - Ortho consult however patient refused a cortisone shot - avoid narcotics as it would limit her ability to walk for PT as it happened last admission since pts goal is Physical therapy - low k diet, cw lasix -tyenolol on as needed headache - warm compresses to shoulder arrange for SNIF with HD placement Result Diagram: 10/07/18 1056 10/10/18 1042 Results 24hrs Laboratory Tests Test 10/09/18 17:38 10/09/18 22:06 10/10/18 08:35 10/10/18 10:42 Bedside Glucose 156 139 126 Sodium Level 136 Potassium Level 5.2 H Chloride Level 103 Carbon Dioxide Level 27 Anion Gap 6 Blood Urea Nitrogen 54 H Creatinine 3.07 H Est Glomerular Filtrat 15 L Rate mL/min Glucose Level 138 Calcium Level 9.0 Subjective 24 Hr Interval Summary Free Text/Dictation sw Went with embedded case manager to talk to patient pt is saying that [facility] spoke to cm and social work professor they didnt state that Exam/Review of Systems Vital Signs Vitals Vital Signs Date Temp Pulse Resp B/P (MAP) Pulse Ox O2 O2 Flow FiO2 Time Delivery Rate 10/10/18 98.6 62 16 152/69 93 Room Air 01:48 (96) Intake and Output 10/09/18 10/09/18 10/10/18 1414:59 22:59 06:59 IntakeIntake Total 300 ml 300 ml 400 ml BalanceBalance 300 ml 300 ml 400 ml Exam astrointestinal: pain (rectal), constipation Medications Medications Current Medications Acetaminophen (Tylenol Tab) 325 mg Q4H PRN PO MILD PAIN(1-3)OR ELEVATED TEMP Last administered on 10/01/18at 16:14; Admin Dose 325 MG; Start 07/20/18 at 23:00 Allopurinol (Zyloprim) 100 mg DAILY PO Last administered on 10/10/18at 08:41; Admin Dose 100 MG; Start 07/21/18 at 09:00 IV Flush (NS 3 ml) 3 ml PER PROTOCOL IV ; Start 07/20/18 at 23:00 Acetaminophen (Tylenol Tab) 650 mg Q6H PRN PO PAIN LEVEL 1-3 OR FEVER Last administered on 09/26/18at 04:57; Admin Dose 650 MG; Start 07/20/18 at 23:00 Acetaminophen (Tylenol Supp) 650 mg Q6H PRN [place] PAIN LEVEL 1-3 OR FEVER; Start 07/20/18 at 23:00 Bisacodyl (Dulcolax) 5 mg DAILY PRN PO CONSTIPATION Last administered on 10/09/18at 10:40; Admin Dose 5 MG; Start 07/20/18 at 23:00 Diagnostic Test (Pha) (Accu-Chek) 1 ea 02 XX Last administered on 09/29/18at 02:06; Admin Dose 1 EA; Start 07/21/18 at 02:00 Insulin Aspart (Novolog Insulin Pen) NOVOLOG *MILD* ALGORITHM WITH MEALS BEDTIME SC Last administered on 10/09/18at 17:40; Admin Dose 1 UNIT; Start 07/21/18 at 07:50 Ergocalciferol (Drisdol) 50,000 unit Lacy@0900 PO Last administered on 10/09/18 10:40; Admin Dose 50,000 UNIT; Start 07/24/18 at 09:00 Miscellaneous Information 1 ea NOTE XX ; Start 07/20/18 at 23:00 Glucose (Glutose) 15 gm Q15M PRN PO DECREASED GLUCOSE; Start 07/20/18 at 23:00 Glucose (Glutose) 22.5 gm Q15M PRN PO DECREASED GLUCOSE; Start 07/20/18 at 23:00 Dextrose (D50w Syringe) 25 ml Q15M PRN IV DECREASED GLUCOSE; Start 07/20/18 at 23:00 Dextrose (D50w Syringe) 50 ml Q15M PRN IV DECREASED GLUCOSE; Start 07/20/18 at 23:00 Glucagon (Glucagen) 1 mg Q15M PRN IM DECREASED GLUCOSE; Start 07/20/18 at 23:00 Glucose (Glutose) 15 gm Q15M PRN BUCCAL DECREASED GLUCOSE; Start 07/20/18 at 23:00 Melatonin (Melatonin) 3 mg HS PRN PO INSOMNIA Last administered on 10/10/18 01:20; Admin Dose 3 MG; Start 07/20/18 at 23:00 Heparin Sodium (Porcine) (Heparin (5000 Units/1ml)) 5,000 unit Q12 SC Last administered on 10/10/18 08:49; Admin Dose 5,000 UNIT; Start 07/21/18 at 21:00 Diclofenac Sodium (Voltaren 1% Gel) 2 gm QID TP Last administered on 10/08/18 17:54; Admin Dose 2 GM; Start 07/22/18 at 13:00 Guaifenesin/ Dextromethorphan (Robitussin Dm Liquid Cup) 10 ml Q4H PRN PO COUGH; Start 07/30/18 at 15:00 Sodium Chloride (NS) -To prime the dialy... DIRECTED FOR HD PRN IV HD; Start 07/31/18 at 18:00 Loratadine (Claritin) 10 mg DAILY PRN PO ALLERGIC REACTION Last administered on 08/07/18at 12:48; Admin Dose 10 MG; Start 08/07/18 at 12:30 Hydralazine HCl (Apresoline) 10 mg Q6H PRN PO ELEVATED BLOOD PRESSURE Last administered on 09/14/18at 02:44; Admin Dose 10 MG; Start 08/08/18 at 04:30 Hydralazine HCl (Apresoline) 25 mg TID PO Last administered on 10/10/18 08:42; Admin Dose 25 MG; Start 08/08/18 at 13:00 Eye Lubricant (Artificial Tears Oph) 2 drop QID BOTH EYES Last administered on 10/08/18 17:54; Admin Dose 2 DROP; Start 08/09/18 at 11:00 Calcium Carbonate (Tums) 500 mg PRN PRN PO HEARTBURN Last administered on 10/05/18 12:34; Admin Dose 500 MG; Start 08/09/18 at 14:30 Loperamide HCl (Imodium Cap) 2 mg QID PRN PO DIARRHEA Last administered on 10/03/18 00:26; Admin Dose 2 MG; Start 08/21/18 at 16:00 Lactobacillus Acidophilus/ Rhamnosus (Culturelle) 1 cap BID PO Last administered on 10/07/18 20:31; Admin Dose 1 CAP; Start 08/21/18 at 21:00 Nystatin (Nystatin Powder) 1 applic BID TOP Last administered on 10/09/18 08:29; Admin Dose 1 APPLIC; Start 08/28/18 at 21:00 Ondansetron HCl (Zofran Tab) 4 mg Q6H PRN PO NAUSEA AND/OR VOMITING Last administered on 09/10/18 07:58; Admin Dose 4 MG; Start 09/03/18 at 16:00 Al Hydrox/Mg Hydrox/Simethicone (Mag-Al Plus) 30 ml Q4H PRN PO GASTROINTESTINAL UPSET; Start 09/10/18 at 18:00 Albumin Human 50 ml @ 100 mls/hr WITH DIALYSIS PRN IV SBP<90; Start 09/16/18 at 18:00 Furosemide (Lasix) 40 mg DAILY PO Last administered on 10/10/18 08:41; Admin Dose 40 MG; Start 09/21/18 at 14:30 Heparin Sodium (Porcine) (Heparin (1000 Units/ml)) 4,000 unit AFTER DIALYSIS CATHETER Last administered on 09/26/18 09:15; Admin Dose 4,000 UNIT; Start 09/23/18 at 14:00 Carbamide Peroxide (Debrox Otic) 3 drop BID PRN BOTH EARS EAR PAIN Last administered on 10/01/18 20:19; Admin Dose 3 DROP; Start 09/24/18 at 16:00 Ondansetron HCl (Zofran Inj) 4 mg Q6H PRN IV NAUSEA AND/OR VOMITING Last administered on 09/26/18 08:42; Admin Dose 4 MG; Start 09/26/18 at 07:30 Gabapentin (Neurontin) 100 mg BID PRN PO NEUROPATHIC PAIN Last administered on 10/10/18 08:50; Admin Dose 100 MG; Start 09/27/18 at 21:00 Lactobacillus Acidophilus (Florajen3 Capsule) 1 each BID PO Last administered on 10/07/18 20:31; Admin Dose 1 EACH; Start 09/27/18 at 21:00 Psyllium Hydrophilic Mucilloid (Metamucil (Sugar Free)) 1 pkt BID PO Last administered on 10/07/18 20:32; Admin Dose 1 PKT; Start 09/27/18 at 21:00 Pantoprazole (Protonix Tab) 40 mg BID@,18 PO Last administered on 10/08/18 17:46; Admin Dose 40 MG; Start 10/06/18 at 18:00 Lidocaine (Lidocaine 5% Oint) 1 applic TID TOP Last administered on 10/09/18 08:28; Admin Dose 1 APPLIC; Start 10/06/18 at 21:00 Phenyleph/Shark Oil/Min Oil/Petrol (Formulation R Oint) 1 applic PRN PRN [place] HEMORROID PAIN/ITCHING; Start 10/08/18 at 02:28 Lactulose (Enulose) 20 gm Q6H PRN PO constipation; Start 10/08/18 at 12:00 Docusate Sodium (Colace) 200 mg HS PO Last administered on 10/09/18 21:50; Admin Dose 200 MG; Start 10/08/18 at 21:00 Tramadol HCl (Ultram) 100 mg Q6H PRN PO PAIN LEVEL 6-10 Last administered on 10/10/18 08:41; Admin Dose 100 MG; Start 10/09/18 at 18:30 Naphazoline HCl (Clear Eyes / Naphcon) 2 drop BID BOTH EYES Last administered on 10/09/18 21:51; Admin Dose 2 DROP; Start 10/09/18 at 21:00; Stop 10/14/18 at 21:00 Polyethylene Glycol (Miralax) 17 gm BID NGT Last administered on 10/10/18at 08:44; Admin Dose 17 GM; Start 10/10/18 at 09:00 KOFI SWANN MD Oct 10, 2018 13:11
[2018-10-10 19:33] VITALS: BP 141/66; PULSE 75; RESP 16
[2018-10-10] MEDS: DOCUSATE SODIUM 100 MG CAP PO SCH (21:36)
[2018-10-11] VITALS (7 sets, daily range): BP systolic 111–175; BP diastolic 57–96; PULSE 72–88; RESP 16–18
[2018-10-11] MEDS: traMADol 50 MG TAB PO PRN ×5 (00:40→21:55)
[2018-10-11] MEDS: ACCU-CHEK XX SCH (02:19)
[2018-10-11] MEDS: PANTOPRAZOLE (EC) 40 MG TAB PO SCH ×3 (05:30→18:00)
--- NOTE | 2018-10-11 08:20 | PN ---
Date/Time of Note Date/Time of Note DATE: 10/11/18 TIME: 08:13 Assessment/Plan VTE Prophylaxis Risk score (from Nsg)>0 risk: 8 SCD applied (from Ns): No SCD contraindicated: patient refusal Pharmacological prophylaxis: heparin Lines/Catheters IV Catheter Type (from Nrsg): PERMACATH FOR HD Urinary Cath still in place: No Assessment/Plan Hospital Course 58 yo female presents for whole body pain for which we were consulted for rectal pain 1. Rectal pain secondary to anal fissure -improved 2. Anal fissure 3. Constipation, chronic 4. GERD 5. CKD 3, now on HD 6. Morbid obesity 7. Diabetes mellitus 8. H/O CHF Plan Continue with bowel regimen Lactobacillus PPI BID Lidocaine for rectal pain Pt examined and plan of care discussed with Dr. Alvarado Result Diagram: 10/07/18 1056 10/10/18 1042 Results 24hrs Laboratory Tests Test 10/10/18 08:35 10/10/18 10:42 10/10/18 13:11 10/10/18 18:00 Bedside Glucose 126 143 232 H Sodium Level 136 Potassium Level 5.2 H Chloride Level 103 Carbon Dioxide Level 27 Anion Gap 6 Blood Urea Nitrogen 54 H Creatinine 3.07 H Est Glomerular Filtrat 15 L Rate mL/min Glucose Level 138 Calcium Level 9.0 Test 10/10/18 21:33 10/11/18 01:37 Bedside Glucose 201 175 Subjective 24 Hr Interval Summary Free Text/Dictation Pt c/o rectal pain intermittently. BM QD. She does refuse medications. Exam/Review of Systems Vital Signs Vitals Vital Signs Date Temp Pulse Resp B/P (MAP) Pulse Ox O2 O2 Flow FiO2 Time Delivery Rate 10/11/18 88 16 138/96 Room Air 02:22 (110) 10/11/18 98.8 95 01:41 Intake and Output 10/10/18 10/10/18 10/11/18 1515:00 23:00 07:00 IntakeIntake Total 420 ml 400 ml OutputOutput Total 2 ml BalanceBalance 418 ml 400 ml Exam Constitutional: alert, oriented Psych: no complaints Head: normocephalic Eyes: PERRL Respiratory: diminished breath sounds Cardiovascular: regular rate and rhythm Gastrointestinal: soft, other (obese) Neurological: nl mental status Medications Medications Current Medications Acetaminophen (Tylenol Tab) 325 mg Q4H PRN PO MILD PAIN(1-3)OR ELEVATED TEMP Last administered on 10/01/18 16:14; Admin Dose 325 MG; Start 07/20/18 at 23:00 Allopurinol (Zyloprim) 100 mg DAILY PO Last administered on 10/10/18 08:41; Admin Dose 100 MG; Start 07/21/18 at 09:00 IV Flush (NS 3 ml) 3 ml PER PROTOCOL IV ; Start 07/20/18 at 23:00 Acetaminophen (Tylenol Tab) 650 mg Q6H PRN PO PAIN LEVEL 1-3 OR FEVER Last administered on 09/26/18 04:57; Admin Dose 650 MG; Start 07/20/18 at 23:00 Acetaminophen (Tylenol Supp) 650 mg Q6H PRN [place] PAIN LEVEL 1-3 OR FEVER; Start 07/20/18 at 23:00 Bisacodyl (Dulcolax) 5 mg DAILY PRN PO CONSTIPATION Last administered on 10/09/18 10:40; Admin Dose 5 MG; Start 07/20/18 at 23:00 Diagnostic Test (Pha) (Accu-Chek) 1 ea 02 XX Last administered on 10/11/18 02:19; Admin Dose 1 EA; Start 07/21/18 at 02:00 Insulin Aspart (Novolog Insulin Pen) NOVOLOG *MILD* ALGORITHM WITH MEALS BEDTIME SC Last administered on 10/10/18 21:39; Admin Dose 1 UNIT; Start 07/21/18 at 07:50 Ergocalciferol (Drisdol) 50,000 unit Lacy@0900 PO Last administered on 10/09/18 10:40; Admin Dose 50,000 UNIT; Start 07/24/18 at 09:00 Miscellaneous Information 1 ea NOTE XX ; Start 07/20/18 at 23:00 Glucose (Glutose) 15 gm Q15M PRN PO DECREASED GLUCOSE; Start 07/20/18 at 23:00 Glucose (Glutose) 22.5 gm Q15M PRN PO DECREASED GLUCOSE; Start 07/20/18 at 23: 00 Dextrose (D50w Syringe) 25 ml Q15M PRN IV DECREASED GLUCOSE; Start 07/20/18 at 23:00 Dextrose (D50w Syringe) 50 ml Q15M PRN IV DECREASED GLUCOSE; Start 07/20/18 at 23:00 Glucagon (Glucagen) 1 mg Q15M PRN IM DECREASED GLUCOSE; Start 07/20/18 at 23:00 Glucose (Glutose) 15 gm Q15M PRN BUCCAL DECREASED GLUCOSE; Start 07/20/18 at 23:00 Melatonin (Melatonin) 3 mg HS PRN PO INSOMNIA Last administered on 10/10/18 01:20; Admin Dose 3 MG; Start 07/20/18 at 23:00 Heparin Sodium (Porcine) (Heparin (5000 Units/1ml)) 5,000 unit Q12 SC Last administered on 10/10/18 21:38; Admin Dose 5,000 UNIT; Start 07/21/18 at 21:00 Diclofenac Sodium (Voltaren 1% Gel) 2 gm QID TP Last administered on 10/08/18 17:54; Admin Dose 2 GM; Start 07/22/18 at 13:00 Guaifenesin/ Dextromethorphan (Robitussin Dm Liquid Cup) 10 ml Q4H PRN PO COUGH; Start 07/30/18 at 15:00 Sodium Chloride (NS) -To prime the dialy... DIRECTED FOR HD PRN IV HD; Start 07/31/18 at 18:00 Loratadine (Claritin) 10 mg DAILY PRN PO ALLERGIC REACTION Last administered on 08/07/18 12:48; Admin Dose 10 MG; Start 08/07/18 at 12:30 Hydralazine HCl (Apresoline) 10 mg Q6H PRN PO ELEVATED BLOOD PRESSURE Last administered on 09/14/18 02:44; Admin Dose 10 MG; Start 08/08/18 at 04:30 Hydralazine HCl (Apresoline) 25 mg TID PO Last administered on 10/10/18 21:36; Admin Dose 25 MG; Start 08/08/18 at 13:00 Eye Lubricant (Artificial Tears Oph) 2 drop QID BOTH EYES Last administered on 10/08/18 17:54; Admin Dose 2 DROP; Start 08/09/18 at 11:00 Calcium Carbonate (Tums) 500 mg PRN PRN PO HEARTBURN Last administered on 10/05/18 12:34; Admin Dose 500 MG; Start 08/09/18 at 14:30 Loperamide HCl (Imodium Cap) 2 mg QID PRN PO DIARRHEA Last administered on 10/03/18 00:26; Admin Dose 2 MG; Start 08/21/18 at 16:00 Lactobacillus Acidophilus/ Rhamnosus (Culturelle) 1 cap BID PO Last administered on 10/07/18 20:31; Admin Dose 1 CAP; Start 08/21/18 at 21:00 Nystatin (Nystatin Powder) 1 applic BID TOP Last administered on 10/09/18 08:29; Admin Dose 1 APPLIC; Start 08/28/18 at 21:00 Ondansetron HCl (Zofran Tab) 4 mg Q6H PRN PO NAUSEA AND/OR VOMITING Last administered on 09/10/18 07:58; Admin Dose 4 MG; Start 09/03/18 at 16:00 Al Hydrox/Mg Hydrox/Simethicone (Mag-Al Plus) 30 ml Q4H PRN PO GASTROINTESTINAL UPSET; Start 09/10/18 at 18:00 Albumin Human 50 ml @ 100 mls/hr WITH DIALYSIS PRN IV SBP<90; Start 09/16/18 at 18:00 Furosemide (Lasix) 40 mg DAILY PO Last administered on 10/10/18 08:41; Admin Dose 40 MG; Start 09/21/18 at 14:30 Heparin Sodium (Porcine) (Heparin (1000 Units/ml)) 4,000 unit AFTER DIALYSIS CA THETER Last administered on 09/26/18 09:15; Admin Dose 4,000 UNIT; Start 09/23/18 at 14:00 Carbamide Peroxide (Debrox Otic) 3 drop BID PRN BOTH EARS EAR PAIN Last administered on 10/01/18 20:19; Admin Dose 3 DROP; Start 09/24/18 at 16:00 Ondansetron HCl (Zofran Inj) 4 mg Q6H PRN IV NAUSEA AND/OR VOMITING Last administered on 09/26/18 08:42; Admin Dose 4 MG; Start 09/26/18 at 07:30 Gabapentin (Neurontin) 100 mg BID PRN PO NEUROPATHIC PAIN Last administered on 10/10/18 08:50; Admin Dose 100 MG; Start 09/27/18 at 21:00 Lactobacillus Acidophilus (Florajen3 Capsule) 1 each BID PO Last administered on 10/07/18 20:31; Admin Dose 1 EACH; Start 09/27/18 at 21:00 Psyllium Hydrophilic Mucilloid (Metamucil (Sugar Free)) 1 pkt BID PO Last administered on 10/07/18 20:32; Admin Dose 1 PKT; Start 09/27/18 at 21:00 Pantoprazole (Protonix Tab) 40 mg BID@06,18 PO Last administered on 10/08/18 17:46; Admin Dose 40 MG; Start 10/06/18 at 18:00 Lidocaine (Lidocaine 5% Oint) 1 applic TID TOP Last administered on 10/09/18 08:28; Admin Dose 1 APPLIC; Start 10/06/18 at 21:00 Phenyleph/Shark Oil/Min Oil/Petrol (Formulation R Oint) 1 applic PRN PRN [place] HEMORROID PAIN/ITCHING; Start 10/08/18 at 02:28 Lactulose (Enulose) 20 gm Q6H PRN PO constipation; Start 10/08/18 at 12:00 Docusate Sodium (Colace) 200 mg HS PO Last administered on 10/10/18 21:36; Admin Dose 200 MG; Start 10/08/18 at 21:00 Tramadol HCl (Ultram) 100 mg Q6H PRN PO PAIN LEVEL 6-10 Last administered on 10/11/18 05:31; Admin Dose 100 MG; Start 10/09/18 at 18:30 Naphazoline HCl (Clear Eyes / Naphcon) 2 drop BID BOTH EYES Last administered on 10/10/18 18:02; Admin Dose 2 DROP; Start 10/09/18 at 21:00; Stop 10/14/18 at 21:00 Polyethylene Glycol (Miralax) 17 gm BID NGT Last administered on 10/10/18 08:44; Admin Dose 17 GM; Start 10/10/18 at 09:00 CHARLIE STRAUSS Oct 11, 2018 08:20
[2018-10-11] MEDS: POLYETHYLENE GLYCOL 17 GM PACKET NGT SCH ×2 (09:00→21:00)
[2018-10-11] MEDS: NYSTATIN 30 GM POWDER BTL TOP SCH ×2 (09:00→21:00)
[2018-10-11] MEDS: LIDOCAINE 5% 35 GM OINT TOP SCH ×3 (09:00→21:00)
[2018-10-11] MEDS: DICLOFENAC SODIUM 1% GEL 100 GM TUBE TP SCH ×4 (09:00→21:00)
[2018-10-11] MEDS: BALSAM PERU/CASTOR OIL 60 GM TUBE TOP SCH ×2 (09:00→21:00)
[2018-10-11] MEDS: L ACIDOPHIL/B LACTIS/B LONGUM CAPSULE PO SCH ×2 (09:00→21:00)
[2018-10-11] MEDS: LACTOBACILLUS RHAMNOSUS CAP PO SCH ×2 (09:00→21:00)
[2018-10-11] MEDS: PSYLLIUM (SUGAR FREE) PACKET PO SCH ×2 (09:00→21:00)
[2018-10-11] MEDS: ARTIFICIAL TEARS 15 ML OPH BOTH EYES SCH ×4 (09:00→21:00)
[2018-10-11] MEDS: FUROSEMIDE 40 MG TAB PO SCH (09:11)
[2018-10-11] MEDS: ALLOPURINOL 100 MG TAB PO SCH (09:11)
[2018-10-11] MEDS: NAPHAZOLINE 0.012% 15 ML OPH BOTH EYES SCH ×2 (10:01→21:00)
[2018-10-11] MEDS: HEPARIN 5,000 UNIT/1 ML VIAL SC SCH ×2 (10:04→20:44)
[2018-10-11] MEDS: INSULIN ASPART [NOVOLOG] 3 ML PEN SC SCH ×4 (10:05→21:00)
[2018-10-11] MEDS: GABAPENTIN 100 MG CAP PO PRN (11:59)
--- NOTE | 2018-10-11 12:25 | PN ---
Date/Time of Note Date/Time of Note DATE: 10/11/18 TIME: 12:22 Assessment/Plan VTE Prophylaxis Risk score (from Nsg)>0 risk: 8 SCD applied (from Ns): No SCD contraindicated: low risk/ambulating Pharmacological prophylaxis: NA/contraindicated Pharm contraindication: low risk/ambulating Lines/Catheters IV Catheter Type (from Nrs): PERMACATH FOR HD Urinary Cath still in place: No Assessment/Plan Hospital Course 58 y/o with 1. . ckd iii-iv now with the complications of hyperkalemia, patient has been refusing Kayexalate Veltaastrida has also been refusing dialysis, patient was explained the risks and consequences and patient completely understands the risks and consequences, now agreed, on and off Hd once a week 2. c diff hx 3. Chronic kidney disease, 4. Morbid obesity. 5. Diabetes. 6. Hypertension, 7. Gout.hx 8. Neuropathy. 9. History of congestive heart failure. 10 weakness 11 deconditioning 13 Left shoulde pain, TTP ? Frozen shoulder , shoulder impingement 14 s/p Fall ? AMS confusion likley due to UTI 15 uti klebsiella and enterococcus 16 diarrhea 15 vomtiing/? contipation> refuse labs again 16 Dizziness> chronic ? Postural 17 UTI 18 rectal pain with fissure Plan - HD once a week, pt had refused last week, will do HD today - PPI BID -stool softners - Lactobacillus - cw with PT> now PT receommended 3 tiems a week -- pt refused cortisone injecion per ortho - Wound care - US with thrombosed graft - Ortho consult however patient refused a cortisone shot - avoid narcotics as it would limit her ability to walk for PT as it happened last admission since pts goal is Physical therapy - low k diet, cw lasix -tyenolol on as needed headache - warm compresses to shoulder arrange for SNIF with HD placement,pt already discharged Result Diagram: 10/07/18 1056 10/10/18 1042 Results 24hrs Laboratory Tests Test 10/10/18 13:11 10/10/18 18:00 10/10/18 21:33 10/11/18 01:37 Bedside Glucose 143 232 H 201 175 Test 10/11/18 09:09 Bedside Glucose 149 Subjective 24 Hr Interval Summary Free Text/Dictation Waiting for SNIF and HD PLACEMENT All questions answered , with RN Mónica Carpenter present at bedside Exam/Review of Systems Vital Signs Vitals Vital Signs Date Temp Pulse Resp B/P (MAP) Pulse Ox O2 O2 Flow FiO2 Time Delivery Rate 10/11/18 88 16 138/96 Room Air 02:22 (110) 10/11/18 98.8 95 01:41 Intake and Output 10/10/18 10/10/18 10/11/18 1515:00 23:00 07:00 IntakeIntake Total 420 ml 400 ml OutputOutput Total 2 ml BalanceBalance 418 ml 400 ml Exam obese gastrointestinal: pain (rectal), constipation rt permcath Medications Medications Current Medications Acetaminophen (Tylenol Tab) 325 mg Q4H PRN PO MILD PAIN(1-3)OR ELEVATED TEMP Last administered on 10/01/18 16:14; Admin Dose 325 MG; Start 07/20/18 at 23:00 Allopurinol (Zyloprim) 100 mg DAILY PO Last administered on 10/11/18 09:11; Admin Dose 100 MG; Start 07/21/18 at 09:00 IV Flush (NS 3 ml) 3 ml PER PROTOCOL IV ; Start 07/20/18 at 23:00 Acetaminophen (Tylenol Tab) 650 mg Q6H PRN PO PAIN LEVEL 1-3 OR FEVER Last administered on 09/26/18 04:57; Admin Dose 650 MG; Start 07/20/18 at 23:00 Acetaminophen (Tylenol Supp) 650 mg Q6H PRN LA PAIN LEVEL 1-3 OR FEVER; Start 07/20/18 at 23:00 Bisacodyl (Dulcolax) 5 mg DAILY PRN PO CONSTIPATION Last administered on 10/09/18 10:40; Admin Dose 5 MG; Start 07/20/18 at 23:00 Diagnostic Test (Pha) (Accu-Chek) 1 ea 02 XX Last administered on 10/11/18 02:19; Admin Dose 1 EA; Start 07/21/18 at 02:00 Insulin Aspart (Novolog Insulin Pen) NOVOLOG *MILD* ALGORITHM WITH MEALS BED TIME SC Last administered on 10/11/18 10:05; Admin Dose 1 UNIT; Start 07/21/18 at 07:50 Ergocalciferol (Drisdol) 50,000 unit Lacy@0900 PO Last administered on 10/09/18 10:40; Admin Dose 50,000 UNIT; Start 07/24/18 at 09:00 Miscellaneous Information 1 ea NOTE XX ; Start 07/20/18 at 23:00 Glucose (Glutose) 15 gm Q15M PRN PO DECREASED GLUCOSE; Start 07/20/18 at 23:00 Glucose (Glutose) 22.5 gm Q15M PRN PO DECREASED GLUCOSE; Start 07/20/18 at 23:00 Dextrose (D50w Syringe) 25 ml Q15M PRN IV DECREASED GLUCOSE; Start 07/20/18 at 23:00 Dextrose (D50w Syringe) 50 ml Q15M PRN IV DECREASED GLUCOSE; Start 07/20/18 at 23:00 Glucagon (Glucagen) 1 mg Q15M PRN IM DECREASED GLUCOSE; Start 07/20/18 at 23:00 Glucose (Glutose) 15 gm Q15M PRN BUCCAL DECREASED GLUCOSE; Start 07/20/18 at 23:00 Melatonin (Melatonin) 3 mg HS PRN PO INSOMNIA Last administered on 10/10/18 01:20; Admin Dose 3 MG; Start 07/20/18 at 23:00 Heparin Sodium (Porcine) (Heparin (5000 Units/1ml)) 5,000 unit Q12 SC Last a dministered on 10/11/18 10:04; Admin Dose 5,000 UNIT; Start 07/21/18 at 21:00 Diclofenac Sodium (Voltaren 1% Gel) 2 gm QID TP Last administered on 10/08/18 17:54; Admin Dose 2 GM; Start 07/22/18 at 13:00 Guaifenesin/ Dextromethorphan (Robitussin Dm Liquid Cup) 10 ml Q4H PRN PO COUGH; Start 07/30/18 at 15:00 Sodium Chloride (NS) -To prime the dialy... DIRECTED FOR HD PRN IV HD; Start 07/31/18 at 18:00 Loratadine (Claritin) 10 mg DAILY PRN PO ALLERGIC REACTION Last administered on 08/07/18at 12:48; Admin Dose 10 MG; Start 08/07/18 at 12:30 Hydralazine HCl (Apresoline) 10 mg Q6H PRN PO ELEVATED BLOOD PRESSURE Last administered on 09/14/18at 02:44; Admin Dose 10 MG; Start 08/08/18 at 04:30 Hydralazine HCl (Apresoline) 25 mg TID PO Last administered on 10/11/18 09:11; Admin Dose 25 MG; Start 08/08/18 at 13:00 Eye Lubricant (Artificial Tears Oph) 2 drop QID BOTH EYES Last administered on 10/08/18 17:54; Admin Dose 2 DROP; Start 08/09/18 at 11:00 Calcium Carbonate (Tums) 500 mg PRN PRN PO HEARTBURN Last administered on 10/05/18 12:34; Admin Dose 500 MG; Start 08/09/18 at 14:30 Loperamide HCl (Imodium Cap) 2 mg QID PRN PO DIARRHEA Last administered on 10/03/18 00:26; Admin Dose 2 MG; Start 08/21/18 at 16:00 Lactobacillus Acidophilus/ Rhamnosus (Culturelle) 1 cap BID PO Last administered on 10/07/18 20:31; Admin Dose 1 CAP; Start 08/21/18 at 21:00 Nystatin (Nystatin Powder) 1 applic BID TOP Last administered on 10/09/18 08:29; Admin Dose 1 APPLIC; Start 08/28/18 at 21:00 Ondansetron HCl (Zofran Tab) 4 mg Q6H PRN PO NAUSEA AND/OR VOMITING Last administered on 09/10/18 07:58; Admin Dose 4 MG; Start 09/03/18 at 16:00 Al Hydrox/Mg Hydrox/Simethicone (Mag-Al Plus) 30 ml Q4H PRN PO GASTROINTESTINAL UPSET; Start 09/10/18 at 18:00 Albumin Human 50 ml @ 100 mls/hr WITH DIALYSIS PRN IV SBP<90; Start 09/16/18 at 18:00 Furosemide (Lasix) 40 mg DAILY PO Last administered on 10/11/18 09:11; Admin Dose 40 MG; Start 09/21/18 at 14:30 Heparin Sodium (Porcine) (Heparin (1000 Units/ml)) 4,000 unit AFTER DIALYSIS CATHETER Last administered on 09/26/18 09:15; Admin Dose 4,000 UNIT; Start 09/23/18 at 14:00 Carbamide Peroxide (Debrox Otic) 3 drop BID PRN BOTH EARS EAR PAIN Last administered on 10/01/18 20:19; Admin Dose 3 DROP; Start 09/24/18 at 16:00 Ondansetron HCl (Zofran Inj) 4 mg Q6H PRN IV NAUSEA AND/OR VOMITING Last administered on 09/26/18at 08:42; Admin Dose 4 MG; Start 09/26/18 at 07:30 Gabapentin (Neurontin) 100 mg BID PRN PO NEUROPATHIC PAIN Last administered on 10/11/18 11:59; Admin Dose 100 MG; Start 09/27/18 at 21:00 Lactobacillus Acidophilus (Florajen3 Capsule) 1 each BID PO Last administered on 10/07/18 20:31; Admin Dose 1 EACH; Start 09/27/18 at 21:00 Psyllium Hydrophilic Mucilloid (Metamucil (Sugar Free)) 1 pkt BID PO Last administered on 10/07/18 20:32; Admin Dose 1 PKT; Start 09/27/18 at 21:00 Pantoprazole (Protonix Tab) 40 mg BID@,18 PO Last administered on 10/08/18 17:46; Admin Dose 40 MG; Start 10/06/18 at 18:00 Lidocaine (Lidocaine 5% Oint) 1 applic TID TOP Last administered on 10/09/18 08:28; Admin Dose 1 APPLIC; Start 10/06/18 at 21:00 Phenyleph/Shark Oil/Min Oil/Petrol (Formulation R Oint) 1 applic PRN PRN LA HEMORROID PAIN/ITCHING; Start 10/08/18 at 02:28 Lactulose (Enulose) 20 gm Q6H PRN PO constipation; Start 10/08/18 at 12:00 Docusate Sodium (Colace) 200 mg HS PO Last administered on 10/10/18 21:36; Admin Dose 200 MG; Start 10/08/18 at 21:00 Tramadol HCl (Ultram) 100 mg Q6H PRN PO PAIN LEVEL 6-10 Last administered on 10/11/18 11:59; Admin Dose 100 MG; Start 10/09/18 at 18:30 Naphazoline HCl (Clear Eyes / Naphcon) 2 drop BID BOTH EYES Last administered on 10/11/18 10:01; Admin Dose 2 DROP; Start 10/09/18 at 21:00; Stop 10/14/18 at 21:00 Polyethylene Glycol (Miralax) 17 gm BID NGT Last administered on 10/10/18at 08:44; Admin Dose 17 GM; Start 10/10/18 at 09:00 KOFI SWANN MD Oct 11, 2018 12:25
[2018-10-11] MEDS ORDERED: SODIUM CHLORIDE 0.9% 1L BAG IV PRN (12:30)
[2018-10-11] MEDS ORDERED: ALBUMIN HUMAN 5% 250 ML IV PRN (12:30)
[2018-10-11] MEDS ORDERED: ALTEPLASE (CATHFLO) 2 MG INJ CATHETER ONE (17:00)
[2018-10-11] MEDS: DOCUSATE SODIUM 100 MG CAP PO SCH (20:43)
[2018-10-12] VITALS (23 sets, daily range): BP systolic 93–178; BP diastolic 7–115; PULSE 51–110; RESP 18–19
[2018-10-12] MEDS: ACCU-CHEK XX SCH (02:00)
[2018-10-12] MEDS: BISACODYL (EC) 5 MG TAB PO PRN (03:58)
[2018-10-12] MEDS: MELATONIN 3 MG TABLET PO PRN (03:58)
[2018-10-12] MEDS: traMADol 50 MG TAB PO PRN ×2 (03:58→13:44)
[2018-10-12] MEDS: PANTOPRAZOLE (EC) 40 MG TAB PO SCH ×2 (06:26→17:59)
--- NOTE | 2018-10-12 07:22 | PN ---
Date/Time of Note Date/Time of Note DATE: 10/12/18 TIME: 07:19 Assessment/Plan VTE Prophylaxis Risk score (from Nsg)>0 risk: 6 SCD applied (from Ns): No SCD contraindicated: patient refusal Pharmacological prophylaxis: heparin Lines/Catheters IV Catheter Type (from Nrsg): PERMACATH Urinary Cath still in place: No Assessment/Plan Hospital Course 58 yo female presents for whole body pain for which we were consulted for rectal pain 1. Rectal pain secondary to anal fissure -improved 2. Anal fissure 3. Constipation, chronic 4. GERD 5. CKD 3, now on HD 6. Morbid obesity 7. Diabetes mellitus 8. H/O CHF Plan Spoke with patient regarding taking her miralax Continue with bowel regimen Lactobacillus PPI BID Lidocaine for rectal pain Pt examined and plan of care discussed with Dr. Alvardao Result Diagram: 10/10/18 1042 Results 24hrs Laboratory Tests Test 10/11/18 09:09 10/11/18 13:04 10/11/18 18:12 10/11/18 20:40 Bedside Glucose 149 177 181 160 Subjective 24 Hr Interval Summary Free Text/Dictation Pt states her rectal pain improved, only hurts when she is trying to go to have bm. Refuses many medications because she states they are making her fat. Explained how miralax works and will help with softer stools which will help in healing rectal fissure. Pt has many complaints on her care in hospital. Exam/Review of Systems Vital Signs Vitals Vital Signs Date Temp Pulse Resp B/P (MAP) Pulse Ox O2 O2 Flow FiO2 Time Delivery Rate 10/12/18 98.9 78 19 138/64 97 01:25 (88) 10/11/18 Room Air 16:02 Intake and Output 10/11/18 10/11/18 10/12/18 1515:00 23:00 07:00 IntakeIntake Total 500 ml OutputOutput Total 400 ml BalanceBalance -400 ml 500 ml Exam Constitutional: alert, oriented Psych: no complaints Head: normocephalic Eyes: nl sclera, PERRL ENMT: mucosa pink and moist Respiratory: diminished breath sounds Cardiovascular: regular rate and rhythm Gastrointestinal: soft, non-tender Musculoskeletal: muscle weakness, other (BLE warm to touch) Extremities: normal pulses Neurological: nl mental status Medications Medications Current Medications Acetaminophen (Tylenol Tab) 325 mg Q4H PRN PO MILD PAIN(1-3)OR ELEVATED TEMP Last administered on 10/01/18 16:14; Admin Dose 325 MG; Start 07/20/18 at 23:00 Allopurinol (Zyloprim) 100 mg DAILY PO Last administered on 10/11/18 09:11; Admin Dose 100 MG; Start 07/21/18 at 09:00 IV Flush (NS 3 ml) 3 ml PER PROTOCOL IV ; Start 07/20/18 at 23:00 Acetaminophen (Tylenol Tab) 650 mg Q6H PRN PO PAIN LEVEL 1-3 OR FEVER Last administered on 09/26/18 04:57; Admin Dose 650 MG; Start 07/20/18 at 23:00 Acetaminophen (Tylenol Supp) 650 mg Q6H PRN GA PAIN LEVEL 1-3 OR FEVER; Start 07/20/18 at 23:00 Bisacodyl (Dulcolax) 5 mg DAILY PRN PO CONSTIPATION Last administered on 10/12/18 03:58; Admin Dose 5 MG; Start 07/20/18 at 23:00 Diagnostic Test (Pha) (Accu-Chek) 1 ea 02 XX Last administered on 10/11/18 02:19; Admin Dose 1 EA; Start 07/21/18 at 02:00 Insulin Aspart (Novolog Insulin Pen) NOVOLOG *MILD* ALGORITHM WITH MEALS BEDTIME SC Last administered on 10/11/18 18:14; Admin Dose 2 UNIT; Start 07/21/18 at 07:50 Ergocalciferol (Drisdol) 50,000 unit Lacy@0900 PO Last administered on 10/09/18 10:40; Admin Dose 50,000 UNIT; Start 07/24/18 at 09:00 Miscellaneous Information 1 ea NOTE XX ; Start 07/20/18 at 23:00 Glucose (Glutose) 15 gm Q15M PRN PO DECREASED GLUCOSE; Start 07/20/18 at 23:00 Glucose (Glutose) 22.5 gm Q15M PRN PO DECREASED GLUCOSE; Start 07/20/18 at 23:00 Dextrose (D50w Syringe) 25 ml Q15M PRN IV DECREASED GLUCOSE; Start 07/20/18 at 23:00 Dextrose (D50w Syringe) 50 ml Q15M PRN IV DECREASED GLUCOSE; Start 07/20/18 at 23:00 Glucagon (Glucagen) 1 mg Q15M PRN IM DECREASED GLUCOSE; Start 07/20/18 at 23:00 Glucose (Glutose) 15 gm Q15M PRN BUCCAL DECREASED GLUCOSE; Start 07/20/18 at 23:00 Melatonin (Melatonin) 3 mg HS PRN PO INSOMNIA Last administered on 10/12/18 03:58; Admin Dose 3 MG; Start 07/20/18 at 23:00 Heparin Sodium (Porcine) (Heparin (5000 Units/1ml)) 5,000 unit Q12 SC Last administered on 10/11/18 20:44; Admin Dose 5,000 UNIT; Start 07/21/18 at 21:00 Diclofenac Sodium (Voltaren 1% Gel) 2 gm QID TP Last administered on 10/08/18 17:54; Admin Dose 2 GM; Start 07/22/18 at 13:00 Guaifenesin/ Dextromethorphan (Robitussin Dm Liquid Cup) 10 ml Q4H PRN PO COUGH; Start 07/30/18 at 15:00 Loratadine (Claritin) 10 mg DAILY PRN PO ALLERGIC REACTION Last administered on 08/07/18 12:48; Admin Dose 10 MG; Start 08/07/18 at 12:30 Hydralazine HCl (Apresoline) 10 mg Q6H PRN PO ELEVATED BLOOD PRESSURE Last a dministered on 09/14/18 02:44; Admin Dose 10 MG; Start 08/08/18 at 04:30 Hydralazine HCl (Apresoline) 25 mg TID PO Last administered on 10/11/18 20:43; Admin Dose 25 MG; Start 08/08/18 at 13:00 Eye Lubricant (Artificial Tears Oph) 2 drop QID BOTH EYES Last administered on 10/08/18 17:54; Admin Dose 2 DROP; Start 08/09/18 at 11:00 Calcium Carbonate (Tums) 500 mg PRN PRN PO HEARTBURN Last administered on 10/05/18 12:34; Admin Dose 500 MG; Start 08/09/18 at 14:30 Loperamide HCl (Imodium Cap) 2 mg QID PRN PO DIARRHEA Last administered on 10/03/18 00:26; Admin Dose 2 MG; Start 08/21/18 at 16:00 Lactobacillus Acidophilus/ Rhamnosus (Culturelle) 1 cap BID PO Last administered on 10/07/18 20:31; Admin Dose 1 CAP; Start 08/21/18 at 21:00 Nystatin (Nystatin Powder) 1 applic BID TOP Last administered on 10/09/18 08:29; Admin Dose 1 APPLIC; Start 08/28/18 at 21:00 Ondansetron HCl (Zofran Tab) 4 mg Q6H PRN PO NAUSEA AND/OR VOMITING Last administered on 09/10/18 07:58; Admin Dose 4 MG; Start 09/03/18 at 16:00 Al Hydrox/Mg Hydrox/Simethicone (Mag-Al Plus) 30 ml Q4H PRN PO GASTROINTESTINAL UPSET; Start 09/10/18 at 18:00 Furosemide (Lasix) 40 mg DAILY PO Last administered on 10/11/18 09:11; Admin Dose 40 MG; Start 09/21/18 at 14:30 Heparin Sodium (Porcine) (Heparin (1000 Units/ml)) 4,000 unit AFTER DIALYSIS CATHETER Last administered on 09/26/18 09:15; Admin Dose 4,000 UNIT; Start 09/23/18 at 14:00 Carbamide Peroxide (Debrox Otic) 3 drop BID PRN BOTH EARS EAR PAIN Last administered on 10/01/18 20:19; Admin Dose 3 DROP; Start 09/24/18 at 16:00 Ondansetron HCl (Zofran Inj) 4 mg Q6H PRN IV NAUSEA AND/OR VOMITING Last administered on 09/26/18at 08:42; Admin Dose 4 MG; Start 09/26/18 at 07:30 Gabapentin (Neurontin) 100 mg BID PRN PO NEUROPATHIC PAIN Last administered on 10/11/18 11:59; Admin Dose 100 MG; Start 09/27/18 at 21:00 Lactobacillus Acidophilus (Florajen3 Capsule) 1 each BID PO Last administered on 10/07/18 20:31; Admin Dose 1 EACH; Start 09/27/18 at 21:00 Psyllium Hydrophilic Mucilloid (Metamucil (Sugar Free)) 1 pkt BID PO Last administered on 10/07/18 20:32; Admin Dose 1 PKT; Start 09/27/18 at 21:00 Pantoprazole (Protonix Tab) 40 mg BID@,18 PO Last administered on 10/12/18 06:26; Admin Dose 40 MG; Start 10/06/18 at 18:00 Lidocaine (Lidocaine 5% Oint) 1 applic TID TOP Last administered on 10/09/18at 08:28; Admin Dose 1 APPLIC; Start 10/06/18 at 21:00 Phenyleph/Shark Oil/Min Oil/Petrol (Formulation R Oint) 1 applic PRN PRN GA HEMORROID PAIN/ITCHING; Start 10/08/18 at 02:28 Lactulose (Enulose) 20 gm Q6H PRN PO constipation; Start 10/08/18 at 12:00 Docusate Sodium (Colace) 200 mg HS PO Last administered on 10/11/18at 20:43; Admin Dose 200 MG; Start 10/08/18 at 21:00 Tramadol HCl (Ultram) 100 mg Q6H PRN PO PAIN LEVEL 6-10 Last administered on 10/12/18 03:58; Admin Dose 100 MG; Start 10/09/18 at 18:30 Naphazoline HCl (Clear Eyes / Naphcon) 2 drop BID BOTH EYES Last administered on 10/11/18 10:01; Admin Dose 2 DROP; Start 10/09/18 at 21:00; Stop 10/14/18 at 21:00 Polyethylene Glycol (Miralax) 17 gm BID NGT Last administered on 10/10/18at 08:44; Admin Dose 17 GM; Start 10/10/18 at 09:00 Albumin Human 250 ml @ 250 mls/hr WITH DIALYSIS PRN IV SBP<90; Start 10/11/18 at 12:30 Sodium Chloride (NS) -To prime the dialy... DIRECTED FOR HD PRN IV SBP<90; Start 10/11/18 at 12:30 CHARLIE STRAUSS Oct 12, 2018 07:22
[2018-10-12] MEDS: INSULIN ASPART [NOVOLOG] 3 ML PEN SC SCH ×4 (07:50→21:00)
[2018-10-12] MEDS: DICLOFENAC SODIUM 1% GEL 100 GM TUBE TP SCH ×3 (09:00→17:00)
[2018-10-12] MEDS: BALSAM PERU/CASTOR OIL 60 GM TUBE TOP SCH (09:00)
[2018-10-12] MEDS: LIDOCAINE 5% 35 GM OINT TOP SCH ×2 (09:00→13:00)
[2018-10-12] MEDS: POLYETHYLENE GLYCOL 17 GM PACKET NGT SCH ×2 (09:00→21:00)
[2018-10-12] MEDS: L ACIDOPHIL/B LACTIS/B LONGUM CAPSULE PO SCH (09:00)
[2018-10-12] MEDS: FUROSEMIDE 40 MG TAB PO SCH (09:00)
[2018-10-12] MEDS: NAPHAZOLINE 0.012% 15 ML OPH BOTH EYES SCH ×2 (09:00→21:00)
[2018-10-12] MEDS: LACTOBACILLUS RHAMNOSUS CAP PO SCH (09:00)
[2018-10-12] MEDS: ARTIFICIAL TEARS 15 ML OPH BOTH EYES SCH ×4 (09:00→21:00)
[2018-10-12] MEDS: NYSTATIN 30 GM POWDER BTL TOP SCH (09:00)
[2018-10-12] MEDS: PSYLLIUM (SUGAR FREE) PACKET PO SCH (09:00)
[2018-10-12] MEDS: LUBIPROSTONE 24 MCG CAP PO SCH ×2 (10:30→13:46)
[2018-10-12] MEDS ORDERED: ALTEPLASE (CATHFLO) 2 MG INJ CATHETER ONE (12:00)
--- NOTE | 2018-10-12 12:02 | PN ---
Date/Time of Note Date/Time of Note DATE: 10/12/18 TIME: 12:01 Assessment/Plan VTE Prophylaxis Risk score (from Nsg)>0 risk: 7 SCD applied (from Ns): No SCD contraindicated: low risk/ambulating Pharmacological prophylaxis: NA/contraindicated Pharm contraindication: low risk/ambulating Lines/Catheters IV [facility]ter [facility] (from [facility]): PERMACATH Urinary Cath still in place: No Assessment/Plan Hospital Course 58 y/o with 1. . ckd iii-iv now with the complications of hyperkalemia, patient has been refusing Kayexalate Veltaastrida has also been refusing dialysis, patient was explained the risks and consequences and patient completely understands the risks and consequences, now agreed, on and off Hd once a week 2. c diff hx 3. Chronic kidney disease, 4. Morbid obesity. 5. Diabetes. 6. Hypertension, 7. Gout.hx 8. Neuropathy. 9. History of congestive heart failure. 10 weakness 11 deconditioning 13 Left shoulde pain, TTP ? Frozen shoulder , shoulder impingement 14 s/p Fall ? AMS confusion likley due to UTI 15 uti klebsiella and enterococcus 16 diarrhea 15 vomtiing/? contipation> refuse labs again 16 Dizziness> chronic ? Postural 17 UTI 18 rectal pain with fissure Plan -HD once pt allows - WILL also get 24 hr urine studies for Cr Clearence after HD - PPI BID -stool softners - Lactobacillus - cw with PT> now PT receommended 3 tiems a week -- pt refused cortisone injecion per ortho - Wound care - US with thrombosed graft - Ortho consult however patient refused a cortisone shot - avoid narcotics as it would limit her ability to walk for PT as it happened last admission since pts goal is Physical therapy - low k diet, cw lasix -tyenolol on as needed headache - warm compresses to shoulder arrange for SNIF with HD placement,pt already discharged, Spoke to CM Result Diagram: 10/10/18 1042 Results 24hrs Laboratory Tests Test 10/11/18 13:04 10/11/18 18:12 10/11/18 20:40 Bedside Glucose 177 181 160 Subjective 24 Hr Interval Summary Free Text/Dictation Pt got stool softner so said cannot get HD now Exam/Review of Systems Vital Signs Vitals Vital Signs Date Temp Pulse Resp B/P (MAP) Pulse Ox O2 O2 Flow FiO2 Time Delivery Rate 10/12/18 89 18 147/106 94 Room Air 10:08 (120) 10/12/18 98.0 08:23 Intake and Output 10/11/18 10/11/18 10/12/18 1515:00 23:00 07:00 IntakeIntake Total 500 ml OutputOutput Total 400 ml BalanceBalance -400 ml 500 ml Exam obese gastrointestinal: pain (rectal), constipation rt permcath Medications Medications Current Medications Acetaminophen (Tylenol Tab) 325 mg Q4H PRN PO MILD PAIN(1-3)OR ELEVATED TEMP Last administered on 10/01/18 16:14; Admin Dose 325 MG; Start 07/20/18 at 23:00 Allopurinol (Zyloprim) 100 mg DAILY PO Last administered on 10/11/18 09:11; Admin Dose 100 MG; Start 07/21/18 at 09:00 IV Flush (NS 3 ml) 3 ml PER PROTOCOL IV ; Start 07/20/18 at 23:00 Acetaminophen (Tylenol Tab) 650 mg Q6H PRN PO PAIN LEVEL 1-3 OR FEVER Last administered on 09/26/18 04:57; Admin Dose 650 MG; Start 07/20/18 at 23:00 Acetaminophen (Tylenol Supp) 650 mg Q6H PRN [place] PAIN LEVEL 1-3 OR FEVER; Start 07/20/18 at 23:00 Bisacodyl (Dulcolax) 5 mg DAILY PRN PO CONSTIPATION Last administered on 10/12/18 03:58; Admin Dose 5 MG; Start 07/20/18 at 23:00 Diagnostic Test (Pha) (Accu-Chek) 1 ea 02 XX Last administered on 10/11/18 02:19; Admin Dose 1 EA; Start 07/21/18 at 02:00 Insulin Aspart (Novolog Insulin Pen) NOVOLOG *MILD* ALGORITHM WITH MEALS BEDTIME SC Last administered on 10/11/18 18:14; Admin Dose 2 UNIT; Start 07/21/18 at 07:50 Ergocalciferol (Drisdol) 50,000 unit Lacy@0900 PO Last administered on 10/09/18 10:40; Admin Dose 50,000 UNIT; Start 07/24/18 at 09:00 Miscellaneous Information 1 ea NOTE XX ; Start 07/20/18 at 23:00 Glucose (Glutose) 15 gm Q15M PRN PO DECREASED GLUCOSE; Start 07/20/18 at 23:00 Glucose (Glutose) 22.5 gm Q15M PRN PO DECREASED GLUCOSE; Start 07/20/18 at 23:00 Dextrose (D50w Syringe) 25 ml Q15M PRN IV DECREASED GLUCOSE; Start 07/20/18 at 23:00 Dextrose (D50w Syringe) 50 ml Q15M PRN IV DECREASED GLUCOSE; Start 07/20/18 at 23:00 Glucagon (Glucagen) 1 mg Q15M PRN IM DECREASED GLUCOSE; Start 07/20/18 at 23:00 Glucose (Glutose) 15 gm Q15M PRN BUCCAL DECREASED GLUCOSE; Start 07/20/18 at 23:00 Melatonin (Melatonin) 3 mg HS PRN PO INSOMNIA Last administered on 10/12/18 03:58; Admin Dose 3 MG; Start 07/20/18 at 23:00 Heparin Sodium (Porcine) (Heparin (5000 Units/1ml)) 5,000 unit Q12 SC Last administered on 10/11/18 20:44; Admin Dose 5,000 UNIT; Start 07/21/18 at 21:00 Diclofenac Sodium (Voltaren 1% Gel) 2 gm QID TP Last administered on 10/08/18 17:54; Admin Dose 2 GM; Start 07/22/18 at 13:00 Guaifenesin/ Dextromethorphan (Robitussin Dm Liquid Cup) 10 ml Q4H PRN PO COUGH; Start 07/30/18 at 15:00 Loratadine (Claritin) 10 mg DAILY PRN PO ALLERGIC REACTION Last administered on 08/07/18at 12:48; Admin Dose 10 MG; Start 08/07/18 at 12:30 Hydralazine HCl (Apresoline) 10 mg Q6H PRN PO ELEVATED BLOOD PRESSURE Last administered on 09/14/18at 02:44; Admin Dose 10 MG; Start 08/08/18 at 04:30 Hydralazine HCl (Apresoline) 25 mg TID PO Last administered on 10/11/18 20:43; Admin Dose 25 MG; Start 08/08/18 at 13:00 Eye Lubricant (Artificial Tears Oph) 2 drop QID BOTH EYES Last administered on 10/08/18 17:54; Admin Dose 2 DROP; Start 08/09/18 at 11:00 Calcium Carbonate (Tums) 500 mg PRN PRN PO HEARTBURN Last administered on 10/05/18 12:34; Admin Dose 500 MG; Start 08/09/18 at 14:30 Loperamide HCl (Imodium Cap) 2 mg QID PRN PO DIARRHEA Last administered on 10/03/18 00:26; Admin Dose 2 MG; Start 08/21/18 at 16:00 Lactobacillus Acidophilus/ Rhamnosus (Culturelle) 1 cap BID PO Last administered on 10/07/18 20:31; Admin Dose 1 CAP; Start 08/21/18 at 21:00 Nystatin (Nystatin Powder) 1 applic BID TOP Last administered on 10/09/18 08:29; Admin Dose 1 APPLIC; Start 08/28/18 at 21:00 Ondansetron HCl (Zofran Tab) 4 mg Q6H PRN PO NAUSEA AND/OR VOMITING Last admin istered on 09/10/18 07:58; Admin Dose 4 MG; Start 09/03/18 at 16:00 Al Hydrox/Mg Hydrox/Simethicone (Mag-Al Plus) 30 ml Q4H PRN PO GASTROINTESTINAL UPSET; Start 09/10/18 at 18:00 Furosemide (Lasix) 40 mg DAILY PO Last administered on 10/11/18 09:11; Admin Dose 40 MG; Start 09/21/18 at 14:30 Heparin Sodium (Porcine) (Heparin (1000 Units/ml)) 4,000 unit AFTER DIALYSIS CATHETER Last administered on 09/26/18 09:15; Admin Dose 4,000 UNIT; Start 09/23/18 at 14:00 Carbamide Peroxide (Debrox Otic) 3 drop BID PRN BOTH EARS EAR PAIN Last administered on 10/01/18 20:19; Admin Dose 3 DROP; Start 09/24/18 at 16:00 Ondansetron HCl (Zofran Inj) 4 mg Q6H PRN IV NAUSEA AND/OR VOMITING Last admi nistered on 09/26/18 08:42; Admin Dose 4 MG; Start 09/26/18 at 07:30 Gabapentin (Neurontin) 100 mg BID PRN PO NEUROPATHIC PAIN Last administered on 10/11/18 11:59; Admin Dose 100 MG; Start 09/27/18 at 21:00 Lactobacillus Acidophilus (Florajen3 Capsule) 1 each BID PO Last administered on 10/07/18 20:31; Admin Dose 1 EACH; Start 09/27/18 at 21:00 Psyllium Hydrophilic Mucilloid (Metamucil (Sugar Free)) 1 pkt BID PO Last administered on 10/07/18 20:32; Admin Dose 1 PKT; Start 09/27/18 at 21:00 Pantoprazole (Protonix Tab) 40 mg BID@06,18 PO Last administered on 10/12/18 06:26; Admin Dose 40 MG; Start 10/06/18 at 18:00 Lidocaine (Lidocaine 5% Oint) 1 applic TID TOP Last administered on 10/09/18 08:28; Admin Dose 1 APPLIC; Start 10/06/18 at 21:00 Phenyleph/Shark Oil/Min Oil/Petrol (Formulation R Oint) 1 applic PRN PRN [place] HEMORROID PAIN/ITCHING; Start 10/08/18 at 02:28 Lactulose (Enulose) 20 gm Q6H PRN PO constipation; Start 10/08/18 at 12:00 Docusate Sodium (Colace) 200 mg HS PO Last administered on 10/11/18 20:43; Admin Dose 200 MG; Start 10/08/18 at 21:00 Tramadol HCl (Ultram) 100 mg Q6H PRN PO PAIN LEVEL 6-10 Last administered on 10/12/18 03:58; Admin Dose 100 MG; Start 10/09/18 at 18:30 Naphazoline HCl (Clear Eyes / Naphcon) 2 drop BID BOTH EYES Last administered on 10/11/18 10:01; Admin Dose 2 DROP; Start 10/09/18 at 21:00; Stop 10/14/18 at 21:00 Polyethylene Glycol (Miralax) 17 gm BID NGT Last administered on 10/10/18 08:44; Admin Dose 17 GM; Start 10/10/18 at 09:00 Albumin Human 250 ml @ 250 mls/hr WITH DIALYSIS PRN IV SBP<90; Start 10/11/18 at 12:30 Sodium Chloride (NS) -To prime the dialy... DIRECTED FOR HD PRN IV SBP<90; Start 10/11/18 at 12:30 Lubiprostone (Amitiza) 24 mcg BID PO ; Start 10/12/18 at 10:30 KOFI SWANN MD Oct 12, 2018 12:02
[2018-10-12] MEDS: ALLOPURINOL 100 MG TAB PO SCH (13:30)
[2018-10-12] MEDS: HEPARIN 5,000 UNIT/1 ML VIAL SC SCH (13:39)
[2018-10-12] MEDS: ONDANSETRON 4 MG INJ IV PRN (21:58)
[2018-10-12] MEDS: HEPARIN 1000 UNITS/ML 10 ML INJ CATHETER SCH (23:36)
[2018-10-13 00:08] VITALS: BP 108/74; RESP 18
[2018-10-13] MEDS: LUBIPROSTONE 24 MCG CAP PO SCH ×3 (01:29→21:00)
[2018-10-13] MEDS: DOCUSATE SODIUM 100 MG CAP PO SCH ×2 (01:30→21:00)
[2018-10-13] MEDS: L ACIDOPHIL/B LACTIS/B LONGUM CAPSULE PO SCH ×3 (01:30→21:00)
[2018-10-13] MEDS: PSYLLIUM (SUGAR FREE) PACKET PO SCH ×3 (01:30→21:00)
[2018-10-13] MEDS: LACTOBACILLUS RHAMNOSUS CAP PO SCH ×3 (01:30→21:00)
[2018-10-13] MEDS: BALSAM PERU/CASTOR OIL 60 GM TUBE TOP SCH ×3 (01:32→21:00)
[2018-10-13] MEDS: NYSTATIN 30 GM POWDER BTL TOP SCH ×3 (01:32→21:00)
[2018-10-13] MEDS: LIDOCAINE 5% 35 GM OINT TOP SCH ×4 (01:32→21:00)
[2018-10-13] MEDS: DICLOFENAC SODIUM 1% GEL 100 GM TUBE TP SCH ×5 (01:33→21:00)
[2018-10-13] MEDS: ACCU-CHEK XX SCH ×2 (01:33→22:14)
[2018-10-13] MEDS: traMADol 50 MG TAB PO PRN ×4 (01:38→18:08)
[2018-10-13] MEDS: MELATONIN 3 MG TABLET PO PRN (01:38)
[2018-10-13] MEDS: HEPARIN 5,000 UNIT/1 ML VIAL SC SCH ×2 (01:43→12:31)
[2018-10-13 02:59] VITALS: BP 111/67; PULSE 78; RESP 20
[2018-10-13] MEDS: PANTOPRAZOLE (EC) 40 MG TAB PO SCH ×2 (06:00→18:06)
--- NOTE | 2018-10-13 07:06 | PN ---
Date/Time of Note Date/Time of Note DATE: 10/13/18 TIME: 07:05 Assessment/Plan VTE Prophylaxis Risk score (from Ns)>0 risk: 7 SCD applied (from Ns): No SCD contraindicated: patient refusal Pharmacological prophylaxis: heparin Lines/Catheters IV C[facility] Type [facility]from [facility] PERMACATH Urinary Cath still in place: No Assessment/Plan Hospital Course 58 yo female presents for whole body pain for which we were consulted for rectal pain 1. Rectal pain secondary to anal fissure -improved 2. Anal fissure 3. Constipation, chronic 4. GERD 5. CKD 3, now on HD 6. Morbid obesity 7. Diabetes mellitus 8. H/O CHF 9. Mild acute anemia, pt has been slowly trending down -anemia work up 10. Abdominal bloating after eating per pt with nausea and vomiting Plan EGD tomorrow. Patient refuses colonoscopy even though patient was explained how it would be beneficial. NPO p MN. Hold Heparin. CBC, INR, CMP in am Anemia work up Continue with bowel regimen Lactobacillus PPI BID Lidocaine for rectal pain Sitz bath BID Amitiza 24 mcg BID Pt examined and plan of care discussed with Dr. Alvarado Result Diagram: 10/12/18 1245 10/12/18 1245 Results 24hrs Laboratory Tests Test 10/12/18 12:45 10/12/18 13:13 10/12/18 17:44 10/13/18 01:25 White Blood Count 11.9 H Red Blood Count 3.92 L Hemoglobin 10.3 L Hematocrit 34.2 L Mean Corpuscular Volume 87.2 Mean Corpuscular 26.3 L Hemoglobin Mean Corpuscular 30.1 L Hemoglobin Concent Red Cell Distribution 18.7 H Width Platelet Count 315 Mean Platelet Volume 9.6 Immature Granulocytes % 0.900 H Neutrophils % 67.5 Lymphocytes % 20.3 Monocytes % 6.0 Eosinophils % 5.0 Basophils % 0.3 Nucleated Red Blood 0.0 Cells % Immature Granulocytes # 0.110 H Neutrophils # 8.0 H Lymphocytes # 2.4 Monocytes # 0.7 Eosinophils # 0.6 H Basophils # 0.0 Nucleated Red Blood 0.0 Cells # Sodium Level 138 Potassium Level 5.0 Chloride Level 103 Carbon Dioxide Level 27 Anion Gap 8 Blood Urea Nitrogen 49 H Creatinine 3.09 H Est Glomerular Filtrat 15 L Rate mL/min Glucose Level 189 Calcium Level 8.6 Phosphorus Level 4.4 Magnesium Level 1.7 Bedside Glucose 159 178 129 Subjective 24 Hr Interval Summary Free Text/Dictation Rectal pain improved. BM yesterday, no endorsement of hematochezia or melena. No abd pain. Tolerating PO diet. Continues to refuse most medications. Exam/Review of Systems Vital Signs Vitals Vital Signs Date Temp Pulse Resp B/P (MAP) Pulse Ox O2 O2 Flow FiO2 Time Delivery Rate 10/13/18 98.2 78 20 111/67 92 02:59 (82) 10/12/18 Room Air 20:20 Intake and Output 10/12/18 10/12/18 10/13/18 1414:59 22:59 06:59 IntakeIntake Total 120 ml OutputOutput Total 401 ml 2400 ml BalanceBalance -281 ml -2400 ml Exam Constitutional: alert, oriented Head: normocephalic Eyes: nl sclera, PERRL ENMT: mucosa pink and moist Respiratory: normal air movement Cardiovascular: regular rate and rhythm Gastrointestinal: soft, non-tender Musculoskeletal: muscle weakness Neurological: nl mental status Medications Medications Current Medications Acetaminophen (Tylenol Tab) 325 mg Q4H PRN PO MILD PAIN(1-3)OR ELEVATED TEMP L ast administered on 10/01/18at 16:14; Admin Dose 325 MG; Start 07/20/18 at 23:00 Allopurinol (Zyloprim) 100 mg DAILY PO Last administered on 10/12/18at 13:30; Admin Dose 100 MG; Start 07/21/18 at 09:00 IV Flush (NS 3 ml) 3 ml PER PROTOCOL IV ; Start 07/20/18 at 23:00 Acetaminophen (Tylenol Tab) 650 mg Q6H PRN PO PAIN LEVEL 1-3 OR FEVER Last administered on 09/26/18at 04:57; Admin Dose 650 MG; Start 07/20/18 at 23:00 Acetaminophen (Tylenol Supp) 650 mg Q6H PRN [place] PAIN LEVEL 1-3 OR FEVER; Start 07/20/18 at 23:00 Bisacodyl (Dulcolax) 5 mg DAILY PRN PO CONSTIPATION Last administered on at 03:58; Admin Dose 5 MG; Start 07/20/18 at 23:00 Diagnostic Test (Pha) (Accu-Chek) XX Last administered on 10/13/18 01:33; Admin Dose 1 EA; Start 07/21/18 at 02:00 Insulin Aspart (Novolog Insulin Pen) NOVOLOG *MILD* ALGORITHM WITH MEALS BEDTIME SC Last administered on 10/12/18 17:53; Admin Dose 1 UNIT; Start 07/21/18 at 07:50 Ergocalciferol (Drisdol) 50,000 unit Lacy@0900 PO Last administered on 10/09/18 10:40; Admin Dose 50,000 UNIT; Start 07/24/18 at 09:00 Miscellaneous Information 1 ea NOTE XX ; Start 07/20/18 at 23:00 Glucose (Glutose) 15 gm Q15M PRN PO DECREASED GLUCOSE; Start 07/20/18 at 23:00 Glucose (Glutose) 22.5 gm Q15M PRN PO DECREASED GLUCOSE; Start 07/20/18 at 23:00 Dextrose (D50w Syringe) 25 ml Q15M PRN IV DECREASED GLUCOSE; Start 07/20/18 at 23:00 Dextrose (D50w Syringe) 50 ml Q15M PRN IV DECREASED GLUCOSE; Start 07/20/18 at 23:00 Glucagon (Glucagen) 1 mg Q15M PRN IM DECREASED GLUCOSE; Start 07/20/18 at 23:00 Glucose (Glutose) 15 gm Q15M PRN BUCCAL DECREASED GLUCOSE; Start 07/20/18 at 23:00 Melatonin (Melatonin) 3 mg HS PRN PO INSOMNIA Last administered on 10/13/18 01:38; Admin Dose 3 MG; Start 07/20/18 at 23:00 Heparin Sodium (Porcine) (Heparin (5000 Units/1ml)) 5,000 unit Q12 SC Last administered on 10/13/18 01:43; Admin Dose 5,000 UNIT; Start 07/21/18 at 21:00 Diclofenac Sodium (Voltaren 1% Gel) 2 gm QID TP Last administered on 10/08/18 17:54; Admin Dose 2 GM; Start 07/22/18 at 13:00 Guaifenesin/ Dextromethorphan (Robitussin Dm Liquid Cup) 10 ml Q4H PRN PO COUGH; Start 07/30/18 at 15:00 Loratadine (Claritin) 10 mg DAILY PRN PO ALLERGIC REACTION Last administered on 08/07/18 12:48; Admin Dose 10 MG; Start 08/07/18 at 12:30 Hydralazine HCl (Apresoline) 10 mg Q6H PRN PO ELEVATED BLOOD PRESSURE Last administered on 09/14/18 02:44; Admin Dose 10 MG; Start 08/08/18 at 04:30 Hydralazine HCl (Apresoline) 25 mg TID PO Last administered on 10/11/18 20:43; Admin Dose 25 MG; Start 08/08/18 at 13:00 Eye Lubricant (Artificial Tears Oph) 2 drop QID BOTH EYES Last administered on 10/08/18 17:54; Admin Dose 2 DROP; Start 08/09/18 at 11:00 Calcium Carbonate (Tums) 500 mg PRN PRN PO HEARTBURN Last administered on 10/05/18 12:34; Admin Dose 500 MG; Start 08/09/18 at 14:30 Loperamide HCl (Imodium Cap) 2 mg QID PRN PO DIARRHEA Last administered on 10/03/18 00:26; Admin Dose 2 MG; Start 08/21/18 at 16:00 Lactobacillus Acidophilus/ Rhamnosus (Culturelle) 1 cap BID PO Last administered on 10/07/18 20:31; Admin Dose 1 CAP; Start 08/21/18 at 21:00 Nystatin (Nystatin Powder) 1 applic BID TOP Last administered on 10/09/18 08:29; Admin Dose 1 APPLIC; Start 08/28/18 at 21:00 Ondansetron HCl (Zofran Tab) 4 mg Q6H PRN PO NAUSEA AND/OR VOMITING Last administered on 09/10/18 07:58; Admin Dose 4 MG; Start 09/03/18 at 16:00 Al Hydrox/Mg Hydrox/Simethicone (Mag-Al Plus) 30 ml Q4H PRN PO GASTROINTESTINAL UPSET; Start 09/10/18 at 18:00 Furosemide (Lasix) 40 mg DAILY PO Last administered on 10/11/18 09:11; Admin Dose 40 MG; Start 09/21/18 at 14:30 Carbamide Peroxide (Debrox Otic) 3 drop BID PRN BOTH EARS EAR PAIN Last administered on 10/01/18 20:19; Admin Dose 3 DROP; Start 09/24/18 at 16:00 Ondansetron HCl (Zofran Inj) 4 mg Q6H PRN IV NAUSEA AND/OR VOMITING Last administered on 10/12/18 21:58; Admin Dose 4 MG; Start 09/26/18 at 07:30 Gabapentin (Neurontin) 100 mg BID PRN PO NEUROPATHIC PAIN Last administered on 10/11/18 11:59; Admin Dose 100 MG; Start 09/27/18 at 21:00 Lactobacillus Acidophilus (Florajen3 Capsule) 1 each BID PO Last administered on 10/07/18 20:31; Admin Dose 1 EACH; Start 09/27/18 at 21:00 Psyllium Hydrophilic Mucilloid (Metamucil (Sugar Free)) 1 pkt BID PO Last a dministered on 10/07/18 20:32; Admin Dose 1 PKT; Start 09/27/18 at 21:00 Pantoprazole (Protonix Tab) 40 mg BID@06,18 PO Last administered on 10/12/18 06:26; Admin Dose 40 MG; Start 10/06/18 at 18:00 Lidocaine (Lidocaine 5% Oint) 1 applic TID TOP Last administered on 10/09/18 08:28; Admin Dose 1 APPLIC; Start 10/06/18 at 21:00 Phenyleph/Shark Oil/Min Oil/Petrol (Formulation R Oint) 1 applic PRN PRN [place] HEMORROID PAIN/ITCHING; Start 10/08/18 at 02:28 Lactulose (Enulose) 20 gm Q6H PRN PO constipation; Start 10/08/18 at 12:00 Docusate Sodium (Colace) 200 mg HS PO Last administered on 10/13/18 01:30; Admin Dose 200 MG; Start 10/08/18 at 21:00 Tramadol HCl (Ultram) 100 mg Q6H PRN PO PAIN LEVEL 6-10 Last administered on 10/13/18 06:50; Admin Dose 100 MG; Start 10/09/18 at 18:30 Naphazoline HCl (Clear Eyes / Naphcon) 2 drop BID BOTH EYES Last administered on 10/11/18 10:01; Admin Dose 2 DROP; Start 10/09/18 at 21:00; Stop 10/14/18 at 21:00 Polyethylene Glycol (Miralax) 17 gm BID NGT Last administered on 1/7/19at 08:44; Admin Dose 17 GM; Start 10/10/18 at 09:00 Albumin Human 250 ml @ 250 mls/hr WITH DIALYSIS PRN IV SBP<90; Start 10/11/18 at 12:30 Sodium Chloride (NS) -To prime the dialy... DIRECTED FOR HD PRN IV SBP<90; Start 10/11/18 at 12:30 Lubiprostone (Amitiza) 24 mcg BID PO Last administered on 10/13/18at 01:29; Admin Dose 24 MCG; Start 10/12/18 at 10:30 Heparin Sodium (Porcine) (Heparin (1000 Units/ml)) 4,700 unit AFTER DIALYSIS CATHETER Last administered on 10/12/18at 23:36; Admin Dose 4,700 UNIT; Start 10/12/18 at 22:30 CHARLIE STRAUSS Oct 13, 2018 07:06
[2018-10-13 07:54] VITALS: BP 127/60; PULSE 81; RESP 18
[2018-10-13] MEDS: INSULIN ASPART [NOVOLOG] 3 ML PEN SC SCH ×4 (08:53→21:00)
[2018-10-13] MEDS: ARTIFICIAL TEARS 15 ML OPH BOTH EYES SCH ×4 (10:49→21:00)
[2018-10-13] MEDS: NAPHAZOLINE 0.012% 15 ML OPH BOTH EYES SCH ×2 (10:50→21:00)
[2018-10-13] MEDS: POLYETHYLENE GLYCOL 17 GM PACKET NGT SCH ×2 (10:52→21:00)
[2018-10-13] MEDS: ALLOPURINOL 100 MG TAB PO SCH (12:20)
[2018-10-13] MEDS: FUROSEMIDE 40 MG TAB PO SCH (12:20)
[2018-10-13] MEDS: GABAPENTIN 100 MG CAP PO PRN (12:53)
[2018-10-13 14:06] VITALS: BP 101/62; PULSE 94; RESP 18
--- NOTE | 2018-10-13 14:26 | PN ---
Date/Time of Note Date/Time of Note DATE: 10/13/18 TIME: 14:23 Assessment/Plan VTE Prophylaxis Risk score (from Nsg)>0 risk: 4 SCD applied (from Ns): No SCD contraindicated: low risk/ambulating Pharmacological prophylaxis: NA/contraindicated Pharm contraindication: low risk/ambulating Lines/Catheters IV Catheter Type (from [facility]): PERMACATH Urinary Cath still in place: No Assessment/Plan Hospital Course 58 y/o with 1. . ckd iii-iv now with the complications of hyperkalemia, patient has been refusing Kayexalate Veltaastrida has also been refusing dialysis, patient was explained the risks and consequences and patient completely understands the risks and consequences, now agreed, on and off Hd once a week 2. c diff hx 3. Chronic kidney disease, 4. Morbid obesity. 5. Diabetes. 6. Hypertension, 7. Gout.hx 8. Neuropathy. 9. History of congestive heart failure. 10 weakness 11 deconditioning 13 Left shoulde pain, TTP ? Frozen shoulder , shoulder impingement 14 s/p Fall ? AMS confusion likley due to UTI 15 uti klebsiella and enterococcus 16 diarrhea 15 vomtiing/? contipation> refuse labs again 16 Dizziness> chronic ? Postural 17 UTI 18 rectal pain with fissure Plan - WILL also get 24 hr urine studies for Cr Clearence after HD - PPI BID -stool softners - Lactobacillus - cw with PT> now PT receommended 3 tiems a week -- pt refused cortisone injecion per ortho - Wound care - US with thrombosed graft - Ortho consult however patient refused a cortisone shot - avoid narcotics as it would limit her ability to walk for PT as it happened last admission since pts goal is Physical therapy - low k diet, cw lasix -tyenolol on as needed headache - warm compresses to shoulder arrange for SNIF with HD placement,pt already discharged, Spoke to CM , still no placement Result Diagram: 10/12/18 1245 10/12/18 1245 Results 24hrs Laboratory Tests Test 10/12/18 17:44 10/13/18 01:25 10/13/18 08:34 10/13/18 09:09 Bedside Glucose 178 129 131 Absolute 0.087 Reticulocyte Count Percent Reticulocyte 2.1 H Count Iron Level 52 Total Iron Binding 327 Capacity Percent Iron 16 L Saturation Test 10/13/18 13:16 Bedside Glucose 120 Subjective 24 Hr Interval Summary Free Text/Dictation S/P hd yesterday spoke to capacity manager tressa not accepting her Exam/Review of Systems Vital Signs Vitals Vital Signs Date Temp Pulse Resp B/P (MAP) Pulse Ox O2 O2 Flow FiO2 Time Delivery Rate 10/13/18 97.7 94 18 101/62 99 14:06 (75) 10/12/18 Room Air 20:20 Intake and Output 10/12/18 10/12/18 10/13/18 1414:59 22:59 06:59 IntakeIntake Total 120 ml OutputOutput Total 401 ml 2400 ml BalanceBalance -281 ml -2400 ml Exam obese gastrointestinal: pain (rectal), constipation rt permcath Medications Medications Current Medications Acetaminophen (Tylenol Tab) 325 mg Q4H PRN PO MILD PAIN(1-3)OR ELEVATED TEMP Last administered on 10/01/18at 16:14; Admin Dose 325 MG; Start 07/20/18 at 23 :00 Allopurinol (Zyloprim) 100 mg DAILY PO Last administered on 10/13/18at 12:20; Admin Dose 100 MG; Start 07/21/18 at 09:00 IV Flush (NS 3 ml) 3 ml PER PROTOCOL IV ; Start 07/20/18 at 23:00 Acetaminophen (Tylenol Tab) 650 mg Q6H PRN PO PAIN LEVEL 1-3 OR FEVER Last administered on 09/26/18at 04:57; Admin Dose 650 MG; Start 07/20/18 at 23:00 Acetaminophen (Tylenol Supp) 650 mg Q6H PRN [place] PAIN LEVEL 1-3 OR FEVER; Start 07/20/18 at 23:00 Bisacodyl (Dulcolax) 5 mg DAILY PRN PO CONSTIPATION Last administered on 10/12/18 03:58; Admin Dose 5 MG; Start 07/20/18 at 23:00 Diagnostic Test (Pha) (Accu-Chek) 1 ea 02 XX Last administered on 10/13/18 01:33; Admin Dose 1 EA; Start 07/21/18 at 02:00 Insulin Aspart (Novolog Insulin Pen) NOVOLOG *MILD* ALGORITHM WITH MEALS BEDTIME SC Last administered on 10/12/18at 17:53; Admin Dose 1 UNIT; Start 07/21/18 at 07:50 Ergocalciferol (Drisdol) 50,000 unit Lacy@0900 PO Last administered on 10/09/18 10:40; Admin Dose 50,000 UNIT; Start 07/24/18 at 09:00 Miscellaneous Information 1 ea NOTE XX ; Start 07/20/18 at 23:00 Glucose (Glutose) 15 gm Q15M PRN PO DECREASED GLUCOSE; Start 07/20/18 at 23:00 Glucose (Glutose) 22.5 gm Q15M PRN PO DECREASED GLUCOSE; Start 07/20/18 at 23:00 Dextrose (D50w Syringe) 25 ml Q15M PRN IV DECREASED GLUCOSE; Start 07/20/18 at 23:00 Dextrose (D50w Syringe) 50 ml Q15M PRN IV DECREASED GLUCOSE; Start 07/20/18 at 23:00 Glucagon (Glucagen) 1 mg Q15M PRN IM DECREASED GLUCOSE; Start 07/20/18 at 23:00 Glucose (Glutose) 15 gm Q15M PRN BUCCAL DECREASED GLUCOSE; Start 07/20/18 at 23:00 Melatonin (Melatonin) 3 mg HS PRN PO INSOMNIA Last administered on 10/13/18 01:38; Admin Dose 3 MG; Start 07/20/18 at 23:00 Heparin Sodium (Porcine) (Heparin (5000 Units/1ml)) 5,000 unit Q12 SC Last administered on 10/13/18 12:31; Admin Dose 5,000 UNIT; Start 07/21/18 at 21:00 Diclofenac Sodium (Voltaren 1% Gel) 2 gm QID TP Last administered on 10/08/18 17:54; Admin Dose 2 GM; Start 07/22/18 at 13:00 Guaifenesin/ Dextromethorphan (Robitussin Dm Liquid Cup) 10 ml Q4H PRN PO COUGH; Start 07/30/18 at 15:00 Loratadine (Claritin) 10 mg DAILY PRN PO ALLERGIC REACTION Last administered on 08/07/18at 12:48; Admin Dose 10 MG; Start 08/07/18 at 12:30 Hydralazine HCl (Apresoline) 10 mg Q6H PRN PO ELEVATED BLOOD PRESSURE Last administered on 09/14/18at 02:44; Admin Dose 10 MG; Start 08/08/18 at 04:30 Hydralazine HCl (Apresoline) 25 mg TID PO Last administered on 10/11/18 20:43; Admin Dose 25 MG; Start 08/08/18 at 13:00 Eye Lubricant (Artificial Tears Oph) 2 drop QID BOTH EYES Last administered on 10/08/18 17:54; Admin Dose 2 DROP; Start 08/09/18 at 11:00 Calcium Carbonate (Tums) 500 mg PRN PRN PO HEARTBURN Last administered on 10/05/18 12:34; Admin Dose 500 MG; Start 08/09/18 at 14:30 Loperamide HCl (Imodium Cap) 2 mg QID PRN PO DIARRHEA Last administered on 10/03/18 00:26; Admin Dose 2 MG; Start 08/21/18 at 16:00 Lactobacillus Acidophilus/ Rhamnosus (Culturelle) 1 cap BID PO Last administered on 10/07/18 20:31; Admin Dose 1 CAP; Start 08/21/18 at 21:00 Nystatin (Nystatin Powder) 1 applic BID TOP Last administered on 10/09/18 08:29; Admin Dose 1 APPLIC; Start 08/28/18 at 21:00 Ondansetron HCl (Zofran Tab) 4 mg Q6H PRN PO NAUSEA AND/OR VOMITING Last administered on 09/10/18 07:58; Admin Dose 4 MG; Start 09/03/18 at 16:00 Al Hydrox/Mg Hydrox/Simethicone (Mag-Al Plus) 30 ml Q4H PRN PO GASTROINTESTINAL UPSET; Start 09/10/18 at 18:00 Furosemide (Lasix) 40 mg DAILY PO Last administered on 10/13/18 12:20; Admin Dose 40 MG; Start 09/21/18 at 14:30 Carbamide Peroxide (Debrox Otic) 3 drop BID PRN BOTH EARS EAR PAIN Last administered on 10/01/18 20:19; Admin Dose 3 DROP; Start 09/24/18 at 16:00 Ondansetron HCl (Zofran Inj) 4 mg Q6H PRN IV NAUSEA AND/OR VOMITING Last administered on 10/12/18 21:58; Admin Dose 4 MG; Start 09/26/18 at 07:30 Gabapentin (Neurontin) 100 mg BID PRN PO NEUROPATHIC PAIN Last administered on 10/13/18 12:53; Admin Dose 100 MG; Start 09/27/18 at 21:00 Lactobacillus Acidophilus (Florajen3 Capsule) 1 each BID PO Last administered on 10/07/18 20:31; Admin Dose 1 EACH; Start 09/27/18 at 21:00 Psyllium Hydrophilic Mucilloid (Metamucil (Sugar Free)) 1 pkt BID PO Last administered on 10/07/18 20:32; Admin Dose 1 PKT; Start 09/27/18 at 21:00 Pantoprazole (Protonix Tab) 40 mg BID@06,18 PO Last administered on 10/12/18 06:26; Admin Dose 40 MG; Start 10/06/18 at 18:00 Lidocaine (Lidocaine 5% Oint) 1 applic TID TOP Last administered on 10/09/18 08:28; Admin Dose 1 APPLIC; Start 10/06/18 at 21:00 Phenyleph/Shark Oil/Min Oil/Petrol (Formulation R Oint) 1 applic PRN PRN [place] HEMORROID PAIN/ITCHING; Start 10/08/18 at 02:28 Lactulose (Enulose) 20 gm Q6H PRN PO constipation; Start 10/08/18 at 12:00 Docusate Sodium (Colace) 200 mg HS PO Last administered on 10/13/18 01:30; Admin Dose 200 MG; Start 10/08/18 at 21:00 Tramadol HCl (Ultram) 100 mg Q6H PRN PO PAIN LEVEL 6-10 Last administered on 10/13/18 12:18; Admin Dose 100 MG; Start 10/09/18 at 18:30 Naphazoline HCl (Clear Eyes / Naphcon) 2 drop BID BOTH EYES Last administered on 10/11/18 10:01; Admin Dose 2 DROP; Start 10/09/18 at 21:00; Stop 10/14/18 at 21:00 Polyethylene Glycol (Miralax) 17 gm BID NGT Last administered on 10/10/18 08:44; Admin Dose 17 GM; Start 10/10/18 at 09:00 Albumin Human 250 ml @ 250 mls/hr WITH DIALYSIS PRN IV SBP<90; Start 10/11/18 at 12:30 Sodium Chloride (NS) -To prime the dialy... DIRECTED FOR HD PRN IV SBP<90; Start 10/11/18 at 12:30 Lubiprostone (Amitiza) 24 mcg BID PO Last administered on 10/13/18at 12:20; Admin Dose 24 MCG; Start 10/12/18 at 10:30 Heparin Sodium (Porcine) (Heparin (1000 Units/ml)) 4,700 unit AFTER DIALYSIS CATHETER Last administered on 10/12/18at 23:36; Admin Dose 4,700 UNIT; Start 10/12/18 at 22:30 KOFI SWANN MD Oct 13, 2018 14:26
[2018-10-13 20:23] VITALS: BP 129/70; PULSE 83; RESP 18
[2018-10-13] MEDS: ACETAMINOPHEN 325 MG TAB PO PRN (20:42)
[2018-10-14] VITALS (13 sets, daily range): BP systolic 94–149; BP diastolic 57–77; PULSE 78–87; RESP 15–22
[2018-10-14] MEDS: MELATONIN 3 MG TABLET PO PRN (00:22)
[2018-10-14] MEDS: traMADol 50 MG TAB PO PRN ×4 (00:22→20:19)
[2018-10-14] MEDS: GABAPENTIN 100 MG CAP PO PRN (00:22)
[2018-10-14] MEDS: PANTOPRAZOLE (EC) 40 MG TAB PO SCH ×3 (06:20→20:18)
[2018-10-14] MEDS ORDERED: ETOMIDATE 20 MG INJ ONE (07:00)
[2018-10-14] MEDS: INSULIN ASPART [NOVOLOG] 3 ML PEN SC SCH ×4 (07:50→21:00)
[2018-10-14] MEDS: DICLOFENAC SODIUM 1% GEL 100 GM TUBE TP SCH ×4 (09:00→21:00)
[2018-10-14] MEDS: NAPHAZOLINE 0.012% 15 ML OPH BOTH EYES SCH ×2 (09:00→20:29)
[2018-10-14] MEDS: LACTOBACILLUS RHAMNOSUS CAP PO SCH ×2 (09:00→20:19)
[2018-10-14] MEDS: POLYETHYLENE GLYCOL 17 GM PACKET NGT SCH ×2 (09:00→21:00)
[2018-10-14] MEDS: L ACIDOPHIL/B LACTIS/B LONGUM CAPSULE PO SCH ×2 (09:00→21:00)
[2018-10-14] MEDS: LIDOCAINE 5% 35 GM OINT TOP SCH ×3 (09:00→20:30)
[2018-10-14] MEDS: LUBIPROSTONE 24 MCG CAP PO SCH ×2 (09:00→20:18)
[2018-10-14] MEDS: BALSAM PERU/CASTOR OIL 60 GM TUBE TOP SCH ×2 (09:00→20:29)
[2018-10-14] MEDS: NYSTATIN 30 GM POWDER BTL TOP SCH ×2 (09:00→20:30)
[2018-10-14] MEDS: ARTIFICIAL TEARS 15 ML OPH BOTH EYES SCH ×4 (09:00→20:31)
[2018-10-14] MEDS: PSYLLIUM (SUGAR FREE) PACKET PO SCH ×2 (09:00→21:00)
[2018-10-14] MEDS: FUROSEMIDE 40 MG TAB PO SCH (10:02)
[2018-10-14] MEDS: ALLOPURINOL 100 MG TAB PO SCH (10:02)
--- NOTE | 2018-10-14 14:52 | PREAC ---
Date/Time of Note Date/Time of Note DATE: 10/14/18 TIME: 14:49 Anesthesia Eval and Record Evaluation Time Pre-Procedure Interview DATE: 10/14/18 TIME: 14:49 Age 58 Sex female NPO: 8 hrs Preoperative diagnosis epigastric pain Planned procedure EGD Past Medical History Past Medical History: Includes Cardio: HTN, CHF Endo: Diabetes Renal: CKD (3-4. had complications of hyperkalemia requiring dialysis ) GI: Morbid obesity Surgery & Anesthesia Issues No known issue Meds Anticoagulation: No Beta Mallika within 24 hr: No Reason Beta Mallika not given: Pt. not on B-Mallika Active Scripts [Melatonin] 3 MG TABLET No Conflict Check, 3 MG PO HS PRN for INSOMNIA for 10 Days Prov:BRIAN ROBLEDO MD 10/09/18 Phenyleph/Shark Oil/Mo/Petrol* (FORMULATION R OINT*) 1 Applic Oint, 1 APPLIC CO PRN PRN for HEMORROID PAIN/ITCHING for 28 Days Prov:BRIAN ROBLEDO MD 10/09/18 Nystatin* (Nyamyc* Powder) 1 Applic Powder, 1 APPLIC TOP BID for 14 Days Prov:BRIAN ROBLEDO MD 10/09/18 Lidocaine (LIDOCAINE) 35.44 Gm Oint...g., 1 APPLIC TOP TID for 14 Days Prov:BRIAN ROBLEDO MD 10/09/18 Balsam Maritza/Munday Oil (Venelex Ointment) 60 Gm Oint..gm., 1 APPLIC TOP BID for 10 Days Prov:BRIAN ROBLEDO MD 10/09/18 Insulin Aspart* (Novolog Insulin Pen*) 100 Unit/Ml Soln, 0 UNIT SC WITH MEALS BEDTIME for 28 Days Prov:BRIAN ROBLEDO MD 10/09/18 Psyllium Husk-Aspartame (Metamucil Fiber Singles Packet) 3.4 Gm Powd.pack, 1 PKT PO BID for 14 Days Prov:BRIAN ROBLEDO MD 10/09/18 Pantoprazole* (Pantoprazole*) 40 Mg Tablet.dr, 40 MG PO BID@06,18 for 28 Days Prov:BRIAN ROBLEDO MD 10/09/18 Ondansetron Hcl* (Ondansetron Hcl*) 4 Mg Tablet, 4 MG PO Q6H PRN for NAUSEA AND/OR VOMITING for 10 Days, TAB Prov:BRIAN ROBLEDO MD 10/09/18 L Acidophil/B Lactis/B Longum (FLORAJEN3 CAPSULE) 460 Mg Capsule, 1 EACH PO BID for 14 Days, CAP Prov:BRIAN ROBLEDO MD 10/09/18 Calcium Carbonate (CALCIUM CARBONATE) 200 Mg Tab.chew, 500 MG PO PRN PRN for HEARTBURN for 28 Days, TAB.CHEW Prov:BRIAN ROBLEDO MD 10/09/18 Bisacodyl* (Bisacodyl*) 5 Mg Tablet.dr, 5 MG PO DAILY PRN for CONSTIPATION for 28 Days Prov:BRIAN ROBLEDO MD 10/09/18 Xwvzhjyqwde-Q-Hobesjysro Hb* (Guaifenesin* DM Syrup) 120 Ml Syrup, 10 ML PO Q4H PRN for COUGH for 7 Days Prov:BRIAN ROBLEDO MD 10/09/18 Lactulose* (Lactulose*) 20 Gm/30 Ml Solution, 20 GM PO Q6H PRN for constipation for 7 Days Prov:BRIAN ROBLEDO MD 10/09/18 Tramadol HCl (Tramadol HCl) 50 Mg Tablet, 100 MG PO Q6H PRN for PAIN LEVEL 6-10 for 14 Days, TAB Prov:BRIAN ROBLEDO MD 10/09/18 Diclofenac Sodium (Diclofenac Sodium) 100 Gm Gel..gram., 2 GM TP QID PRN for PAIN LEVEL 6-10 for 7 Days Prov:BRIAN ROBLEDO MD 10/09/18 Heparin Sodium,Porcine (Heparin Sodium) 5,000 Unit/1 Ml Vial, 5000 UNIT SC Q12 for 30 Days, VIAL Prov:BRIAN ROBLEDO MD 10/09/18 Heparin Sod (Porcine) (Heparin) 1,000 Unit/Ml Soln, 4000 UNIT CATHETER AFTER KAIN LYSIS for 10 Days Prov:BRIAN ROBLEDO MD 10/09/18 Loratadine* (Loratadine*) 10 Mg Tablet, 10 MG PO DAILY PRN for ALLERGIC REACTION for 10 Days, TAB Prov:BRIAN ROBLEDO MD 10/09/18 Allopurinol* (Allopurinol*) 100 Mg Tablet, 100 MG PO DAILY for 28 Days, TAB Prov:BRIAN ROBLEDO MD 06/21/18 Ergocalciferol (Vitamin D2) (VITAMIN D2) 50,000 Unit Capsule, 77480 UNIT PO Lacy@09 for 28 Days, CAP Prov:BRIAN ROBLEDO MD 06/21/18 Docusate Sodium (Dok) 100 Mg Capsule, 100 MG PO BID PRN for CONSTIPATION for 7 Days, CAP Prov:BRIAN ROBLEDO MD 06/21/18 Gabapentin* (Gabapentin*) 300 Mg Capsule, 300 MG PO HS for 28 Days, CAP Prov:BRIAN ROBLEDO MD 06/21/18 Hydralazine Hcl* (Hydralazine Hcl*) 25 Mg Tab, 25 MG PO Q8 for 28 Days, TAB Prov:BRIAN ROBLEDO MD 06/21/18 Reported Medications Acetaminophen* (Acetaminophen*) 325 Mg Tablet, 325 MG PO Q4H PRN for PAIN AND OR ELEVATED TEMP, #30 TAB 05/13/18 Trazodone Hcl* (Trazodone Hcl*) 50 Mg Tablet, 50 MG PO QHS, #30 TAB 05/13/18 Loperamide Hcl* (Loperamide Hcl*) 2 Mg Cap, 2 MG PO DAILY, CAP 05/13/18 Bumetanide* (Bumetanide*) 1 Mg Tablet, 1 MG PO BID, TAB 05/13/18 Diphenhydramine Hcl* (Diphenhydramine Hcl*) 25 Mg Capsule, 25 MG PO QHS PRN for ITCHING, CAP 05/13/18 Discontinued Reported Medications Dicyclomine HCl (Dicyclomine HCl) 20 Mg Tablet, 20 MG PO BID 05/13/18 Discontinued Scripts [Melatonin] 3 MG TABLET No Conflict Check, 3 MG PO HS PRN for INSOMNIA for 14 Days Prov:BRIAN ROBLEDO MD 06/21/18 Insulin Detemir (Levemir) 100 Unit/1 Ml Vial, 25 UNITS SC HS for 28 Days, VIAL Prov:BRIAN ROBLEDO MD 06/21/18 Tramadol HCl (Tramadol HCl) 50 Mg Tablet, 50 MG PO Q6H PRN for PAIN LEVEL 6-10 for 28 Days, #30 TAB Prov:BRIAN ROBLEDO MD 06/21/18 Current Medications Acetaminophen (Tylenol Tab) 325 mg Q4H PRN PO MILD PAIN(1-3)OR ELEVATED TEMP Last administered on 10/01/18at 16:14; Admin Dose 325 MG; Start 07/20/18 at 23:00 Allopurinol (Zyloprim) 100 mg DAILY PO Last administered on 10/14/18at 10:02; Admin Dose 100 MG; Start 07/21/18 at 09:00 IV Flush (NS 3 ml) 3 ml PER PROTOCOL IV ; Start 07/20/18 at 23:00 Acetaminophen (Tylenol Tab) 650 mg Q6H PRN PO PAIN LEVEL 1-3 OR FEVER Last administered on 10/13/18 20:42; Admin Dose 650 MG; Start 07/20/18 at 23:00 Acetaminophen (Tylenol Supp) 650 mg Q6H PRN [place] PAIN LEVEL 1-3 OR FEVER; Start 07/20/18 at 23:00 Bisacodyl (Dulcolax) 5 mg DAILY PRN PO CONSTIPATION Last administered on 10/12/18 03:58; Admin Dose 5 MG; Start 07/20/18 at 23:00 Diagnostic Test (Pha) (Accu-Chek) 1 ea 02 XX Last administered on 10/13/18 01:33; Admin Dose 1 EA; Start 07/21/18 at 02:00 Insulin Aspart (Novolog Insulin Pen) NOVOLOG *MILD* ALGORITHM WITH MEALS BEDTIME SC Last administered on 10/12/18 17:53; Admin Dose 1 UNIT; Start 07/21/18 at 07:50 Ergocalciferol (Drisdol) 50,000 unit Lacy@0900 PO Last administered on 10/09/18 10:40; Admin Dose 50,000 UNIT; Start 07/24/18 at 09:00 Miscellaneous Information 1 ea NOTE XX ; Start 07/20/18 at 23:00 Glucose (Glutose) 15 gm Q15M PRN PO DECREASED GLUCOSE; Start 07/20/18 at 23:00 Glucose (Glutose) 22.5 gm Q15M PRN PO DECREASED GLUCOSE; Start 07/20/18 at 23:00 Dextrose (D50w Syringe) 25 ml Q15M PRN IV DECREASED GLUCOSE; Start 07/20/18 at 23:00 Dextrose (D50w Syringe) 50 ml Q15M PRN IV DECREASED GLUCOSE; Start 07/20/18 at 23:00 Glucagon (Glucagen) 1 mg Q15M PRN IM DECREASED GLUCOSE; Start 07/20/18 at 23:00 Glucose (Glutose) 15 gm Q15M PRN BUCCAL DECREASED GLUCOSE; Start 07/20/18 at 23:00 Melatonin (Melatonin) 3 mg HS PRN PO INSOMNIA Last administered on 10/14/18 00:22; Admin Dose 3 MG; Start 07/20/18 at 23:00 Diclofenac Sodium (Voltaren 1% Gel) 2 gm QID TP Last administered on 10/08/18 17:54; Admin Dose 2 GM; Start 07/22/18 at 13:00 Guaifenesin/ Dextromethorphan (Robitussin Dm Liquid Cup) 10 ml Q4H PRN PO COUGH; Start 07/30/18 at 15:00 Loratadine (Claritin) 10 mg DAILY PRN PO ALLERGIC REACTION Last administered on 08/07/18 12:48; Admin Dose 10 MG; Start 08/07/18 at 12:30 Hydralazine HCl (Apresoline) 10 mg Q6H PRN PO ELEVATED BLOOD PRESSURE Last administered on 09/14/18 02:44; Admin Dose 10 MG; Start 08/08/18 at 04:30 Hydralazine HCl (Apresoline) 25 mg TID PO Last administered on 10/13/18 20:44; Admin Dose 25 MG; Start 08/08/18 at 13:00 Eye Lubricant (Artificial Tears Oph) 2 drop QID BOTH EYES Last administered on 10/08/18 17:54; Admin Dose 2 DROP; Start 08/09/18 at 11:00 Calcium Carbonate (Tums) 500 mg PRN PRN PO HEARTBURN Last administered on 10/05/18 12:34; Admin Dose 500 MG; Start 08/09/18 at 14:30 Loperamide HCl (Imodium Cap) 2 mg QID PRN PO DIARRHEA Last administered on 00:26; Admin Dose 2 MG; Start 08/21/18 at 16:00 Lactobacillus Acidophilus/ Rhamnosus (Culturelle) 1 cap BID PO Last administered on 10/07/18 20:31; Admin Dose 1 CAP; Start 08/21/18 at 21:00 Nystatin (Nystatin Powder) 1 applic BID TOP Last administered on 10/09/18 08:29; Admin Dose 1 APPLIC; Start 08/28/18 at 21:00 Ondansetron HCl (Zofran Tab) 4 mg Q6H PRN PO NAUSEA AND/OR VOMITING Last administered on 09/10/18 07:58; Admin Dose 4 MG; Start 09/03/18 at 16:00 Al Hydrox/Mg Hydrox/Simethicone (Mag-Al Plus) 30 ml Q4H PRN PO GASTROINTESTINAL UPSET; Start 09/10/18 at 18:00 Furosemide (Lasix) 40 mg DAILY PO Last administered on 10/14/18 10:02; Admin Dose 40 MG; Start 09/21/18 at 14:30 Carbamide Peroxide (Debrox Otic) 3 drop BID PRN BOTH EARS EAR PAIN Last administered on 10/01/18 20:19; Admin Dose 3 DROP; Start 09/24/18 at 16:00 Ondansetron HCl (Zofran Inj) 4 mg Q6H PRN IV NAUSEA AND/OR VOMITING Last administered on 10/12/18 21:58; Admin Dose 4 MG; Start 09/26/18 at 07:30 Gabapentin (Neurontin) 100 mg BID PRN PO NEUROPATHIC PAIN Last administered on 10/14/18 00:22; Admin Dose 100 MG; Start 09/27/18 at 21:00 Lactobacillus Acidophilus (Florajen3 Capsule) 1 each BID PO Last administered on 10/07/18 20:31; Admin Dose 1 EACH; Start 09/27/18 at 21:00 Psyllium Hydrophilic Mucilloid (Metamucil (Sugar Free)) 1 pkt BID PO Last administered on 10/07/18 20:32; Admin Dose 1 PKT; Start 09/27/18 at 21:00 Pantoprazole (Protonix Tab) 40 mg BID@06,18 PO Last administered on 10/14/18 06:20; Admin Dose 40 MG; Start 10/06/18 at 18:00 Lidocaine (Lidocaine 5% Oint) 1 applic TID TOP Last administered on 10/09/18 08:28; Admin Dose 1 APPLIC; Start 10/06/18 at 21:00 Phenyleph/Shark Oil/Min Oil/Petrol (Formulation R Oint) 1 applic PRN PRN [place] HEMORROID PAIN/ITCHING; Start 10/08/18 at 02:28 Lactulose (Enulose) 20 gm Q6H PRN PO constipation; Start 10/08/18 at 12:00 Docusate Sodium (Colace) 200 mg HS PO Last administered on 10/13/18 01:30; Admin Dose 200 MG; Start 10/08/18 at 21:00 Tramadol HCl (Ultram) 100 mg Q6H PRN PO PAIN LEVEL 6-10 Last administered on 10/14/18at 11:31; Admin Dose 100 MG; Start 10/09/18 at 18:30 Naphazoline HCl (Clear Eyes / Naphcon) 2 drop BID BOTH EYES Last administered on 10/11/18at 10:01; Admin Dose 2 DROP; Start 10/09/18 at 21:00; Stop 10/14/18 at 21:00 Polyethylene Glycol (Miralax) 17 gm BID NGT Last administered on 10/10/18at 08:44; Admin Dose 17 GM; Start 10/10/18 at 09:00 Albumin Human 250 ml @ 250 mls/hr WITH DIALYSIS PRN IV SBP<90; Start 10/11/18 at 12:30 Sodium Chloride (NS) -To prime the dialy... DIRECTED FOR HD PRN IV SBP<90; Start 10/11/18 at 12:30 Lubiprostone (Amitiza) 24 mcg BID PO Last administered on 10/13/18at 12:20; Admin Dose 24 MCG; Start 10/12/18 at 10:30 Heparin Sodium (Porcine) (Heparin (1000 Units/ml)) 4,700 unit AFTER DIALYSIS CATHETER Last administered on 10/12/18at 23:36; Admin Dose 4,700 UNIT; Start 10/12/18 at 22:30 Meds reviewed: Yes Allergies Coded Allergies: polystyrene sulfonate (Verified Allergy, Intermediate, hives, 07/20/18) codeine (Verified Allergy, Unknown, 07/20/18) Uncoded Allergies: SEAFOOD (Allergy, Unknown, 05/13/18) Allergies Reviewed: Yes Labs/Studies Labs Reviewed: Reviewed by anesthesiologist Result Diagram: 10/14/18 1100 10/14/18 1100 Laboratory Tests 10/14/18 11:00 test: N/A Pre-procedure Exam Last vitals Vital Signs Date Temp Pulse Resp B/P (MAP) Pulse Ox O2 O2 Flow FiO2 Time Delivery Rate 10/14/18 98.2 18 144/65 90 Room Air 08:44 (91) 10/14/18 87 01:53 Airway: Adequate mouth opening, Adequate thyromental dist Mallampati: Mallampati III Teeth: Normal Lung: Normal Heart: Normal Anticipated Difficutly with IV: Anticipate Difficult IV Access (if unable to place PIV will need central line for access ) ASA Physical Status ASA physical status: 3 Emergency: None Planned Anesthetic General/MAC: Mask (vs. ), ETT Planned Pain Management Parenteral pain med Pre-operative Attestations Prior to commencing anesthesia and surgery, the patient was re-evaluated, there was verification of: *The patient's identity *The results of appropriate recent lab work and preoperative vital signs *The above evaluation not changing prior to induction *Anesthetic plan, risk benefits, alternative and complications discussed with patient/family; questions answered; patient/family understands, accepts and wishes to proceed. ADRIANA WILLARD MD Oct 14, 2018 14:52
[2018-10-14] MEDS ORDERED: KETAMINE (50 MG/ML) 10 ML VIAL ONE (16:22)
[2018-10-14] MEDS ORDERED: GLYCOPYRROLATE 0.4 MG INJ ONE (16:22)
[2018-10-14] MEDS ORDERED: MIDAZOLAM 1 MG/ML 2 ML INJ ONE (16:22)
[2018-10-14] MEDS ORDERED: LABETALOL HCL 20MG INJ ONE (16:49)
--- NOTE | 2018-10-14 16:53 | PN ---
Date/Time of Note Date/Time of Note DATE: 10/14/18 TIME: 16:52 Assessment/Plan VTE Prophylaxis Risk score (from Ns)>0 risk: 3 SCD applied (from Ns): Yes Pharmacological prophylaxis: NA/contraindicated Pharm contraindication: bleeding Lines/Catheters IV Catheter Type (from Nrsg): Saline Lock Urinary Cath still in place: No Assessment/Plan Hospital Course 1. ckd, hyperkalemia 2. c diff hx 3. Opiates dependency 4. Morbid obesity. 5. Diabetes. 6. Hypertension, 7. Gout, hx 8. Neuropathy. 9. History of congestive heart failure. 10. weakness 11. deconditioning 12. Non compliance, pt refused Valtessa, HD 13. Left shoulder chronic pain. Xray was reviewed from the last visit, it is arthrosis left acromioclavicular joint 14. constipation 15. UTI 16. right arm Picc line is not functioning Assessment/Plan - collecting also get 24 hr urine studies for Cr Clearence after HD - PPI BID -stool softners - Lactobacillus - cw with PT> now PT recommended 3 times a week -- pt refused cortisone injection per ortho - Wound care - US with thrombosed graft - Ortho consult however patient refused a cortisone shot - avoid narcotics as it would limit her ability to walk for PT as it happened last admission since pts goal is Physical therapy - low k diet, cw lasix -tyenolol on as needed headache - warm compresses to shoulder Result Diagram: 10/14/18 1100 10/14/18 1100 Results 24hrs Laboratory Tests Test 10/13/18 17:47 10/13/18 20:37 10/14/18 09:55 10/14/18 11:00 Bedside Glucose 183 124 110 White Blood Count 12.7 H Red Blood Count 4.34 Hemoglobin 11.4 L Hematocrit 38.2 Mean Corpuscular 88.0 Volume Mean Corpuscular 26.3 L Hemoglobin Mean Corpuscular 29.8 L Hemoglobin Concent Red Cell 18.8 H Distribution Width Platelet Count 274 Mean Platelet Volume 9.4 Immature 1.000 H Granulocytes % Neutrophils % 63.1 Lymphocytes % 24.7 Monocytes % 6.5 Eosinophils % 4.0 Basophils % 0.7 Nucleated Red Blood 0.0 Cells % Immature 0.130 H Granulocytes # Neutrophils # 8.0 H Lymphocytes # 3.1 H Monocytes # 0.8 Eosinophils # 0.5 Basophils # 0.1 Nucleated Red Blood 0.0 Cells # Prothrombin Time 12.2 Prothrombin Time 1.0 Ratio INR International 0.89 Normalized Ratio Activated 30.5 Partial Thromboplast Time Sodium Level 140 Potassium Level 4.4 Chloride Level 99 Carbon Dioxide Level 30 Anion Gap 11 Blood Urea Nitrogen 31 #H Creatinine 2.91 H Est Glomerular 16 L Filtrat Rate mL/min Glucose Level 118 # Calcium Level 9.1 Total Bilirubin 0.0 L Direct Bilirubin 0.00 Indirect Bilirubin 0.0 Aspartate Amino 30 Transf (AST/SGOT) Alanine 17 Aminotransferase (AL T/SGPT) Alkaline Phosphatase 92 Total Protein 8.0 Albumin 3.7 Globulin 4.30 H Albumin/Globulin 0.86 Ratio Test 10/14/18 13:00 10/14/18 13:19 Stool Occult Blood NEGATIVE Bedside Glucose 96 Subjective 24 Hr Interval Summary Free Text/Dictation pt is sedated Exam/Review of Systems Vital Signs Vitals Vital Signs Date Temp Pulse Resp B/P (MAP) Pulse Ox O2 O2 Flow FiO2 Time Delivery Rate 10/14/18 98.2 18 144/65 90 Room Air 08:44 (91) 10/14/18 87 01:53 Intake and Output 10/13/18 10/13/18 10/14/18 1515:00 23:00 07:00 IntakeIntake Total 800 ml BalanceBalance 800 ml Exam sedated for procedure, unable to perform full assessment, pt is in GI lab Medications Medications Current Medications Acetaminophen (Tylenol Tab) 325 mg Q4H PRN PO MILD PAIN(1-3)OR ELEVATED TEMP Last administered on 10/01/18at 16:14; Admin Dose 325 MG; Start 07/20/18 at 23:00 Allopurinol (Zyloprim) 100 mg DAILY PO Last administered on 10/14/18at 10:02; Admin Dose 100 MG; Start 07/21/18 at 09:00 IV Flush (NS 3 ml) 3 ml PER PROTOCOL IV ; Start 07/20/18 at 23:00 Acetaminophen (Tylenol Tab) 650 mg Q6H PRN PO PAIN LEVEL 1-3 OR FEVER Last administered on 10/13/18at 20:42; Admin Dose 650 MG; Start 07/20/18 at 23:00 Acetaminophen (Tylenol Supp) 650 mg Q6H PRN LA PAIN LEVEL 1-3 OR FEVER; Start 07/20/18 at 23:00 Bisacodyl (Dulcolax) 5 mg DAILY PRN PO CONSTIPATION Last administered on 10/12/18 03:58; Admin Dose 5 MG; Start 07/20/18 at 23:00 Diagnostic Test (Pha) (Accu-Chek) 1 ea 02 XX Last administered on 10/13/18 01:33; Admin Dose 1 EA; Start 07/21/18 at 02:00 Insulin Aspart (Novolog Insulin Pen) NOVOLOG *MILD* ALGORITHM WITH MEALS BEDTIME SC Last administered on 10/12/18 17:53; Admin Dose 1 UNIT; Start 07/21/18 at 07:50 Ergocalciferol (Drisdol) 50,000 unit Lacy@0900 PO Last administered on 10/09/18 10:40; Admin Dose 50,000 UNIT; Start 07/24/18 at 09:00 Miscellaneous Information 1 ea NOTE XX ; Start 07/20/18 at 23:00 Glucose (Glutose) 15 gm Q15M PRN PO DECREASED GLUCOSE; Start 07/20/18 at 23:00 Glucose (Glutose) 22.5 gm Q15M PRN PO DECREASED GLUCOSE; Start 07/20/18 at 23:00 Dextrose (D50w Syringe) 25 ml Q15M PRN IV DECREASED GLUCOSE; Start 07/20/18 at 23:00 Dextrose (D50w Syringe) 50 ml Q15M PRN IV DECREASED GLUCOSE; Start 07/20/18 at 23:00 Glucagon (Glucagen) 1 mg Q15M PRN IM DECREASED GLUCOSE; Start 07/20/18 at 23:00 Glucose (Glutose) 15 gm Q15M PRN BUCCAL DECREASED GLUCOSE; Start 07/20/18 at 23:00 Melatonin (Melatonin) 3 mg HS PRN PO INSOMNIA Last administered on 10/14/18 00:22; Admin Dose 3 MG; Start 07/20/18 at 23:00 Diclofenac Sodium (Voltaren 1% Gel) 2 gm QID TP Last administered on 10/08/18 17:54; Admin Dose 2 GM; Start 07/22/18 at 13:00 Guaifenesin/ Dextromethorphan (Robitussin Dm Liquid Cup) 10 ml Q4H PRN PO COUGH; Start 07/30/18 at 15:00 Loratadine (Claritin) 10 mg DAILY PRN PO ALLERGIC REACTION Last administered on 08/07/18 12:48; Admin Dose 10 MG; Start 08/07/18 at 12:30 Hydralazine HCl (Apresoline) 10 mg Q6H PRN PO ELEVATED BLOOD PRESSURE Last administered on 09/14/18 02:44; Admin Dose 10 MG; Start 08/08/18 at 04:30 Hydralazine HCl (Apresoline) 25 mg TID PO Last administered on 10/13/18 20:44; Admin Dose 25 MG; Start 08/08/18 at 13:00 Eye Lubricant (Artificial Tears Oph) 2 drop QID BOTH EYES Last administered on 10/08/18 17:54; Admin Dose 2 DROP; Start 08/09/18 at 11:00 Calcium Carbonate (Tums) 500 mg PRN PRN PO HEARTBURN Last administered on 10/05/18 12:34; Admin Dose 500 MG; Start 08/09/18 at 14:30 Loperamide HCl (Imodium Cap) 2 mg QID PRN PO DIARRHEA Last administered on 10/03/18 00:26; Admin Dose 2 MG; Start 08/21/18 at 16:00 Lactobacillus Acidophilus/ Rhamnosus (Culturelle) 1 cap BID PO Last administered on 10/07/18 20:31; Admin Dose 1 CAP; Start 08/21/18 at 21:00 Nystatin (Nystatin Powder) 1 applic BID TOP Last administered on 10/09/18 08:29; Admin Dose 1 APPLIC; Start 08/28/18 at 21:00 Ondansetron HCl (Zofran Tab) 4 mg Q6H PRN PO NAUSEA AND/OR VOMITING Last administered on 09/10/18 07:58; Admin Dose 4 MG; Start 09/03/18 at 16:00 Al Hydrox/Mg Hydrox/Simethicone (Mag-Al Plus) 30 ml Q4H PRN PO GASTROINTESTINAL UPSET; Start 09/10/18 at 18:00 Furosemide (Lasix) 40 mg DAILY PO Last administered on 10/14/18 10:02; Admin Dose 40 MG; Start 09/21/18 at 14:30 Carbamide Peroxide (Debrox Otic) 3 drop BID PRN BOTH EARS EAR PAIN Last administered on 10/01/18 20:19; Admin Dose 3 DROP; Start 09/24/18 at 16:00 Ondansetron HCl (Zofran Inj) 4 mg Q6H PRN IV NAUSEA AND/OR VOMITING Last administered on 10/12/18 21:58; Admin Dose 4 MG; Start 09/26/18 at 07:30 Gabapentin (Neurontin) 100 mg BID PRN PO NEUROPATHIC PAIN Last administered on 10/14/18 00:22; Admin Dose 100 MG; Start 09/27/18 at 21:00 Lactobacillus Acidophilus (Florajen3 Capsule) 1 each BID PO Last administered on 10/07/18 20:31; Admin Dose 1 EACH; Start 09/27/18 at 21:00 Psyllium Hydrophilic Mucilloid (Metamucil (Sugar Free)) 1 pkt BID PO Last administered on 10/07/18 20:32; Admin Dose 1 PKT; Start 09/27/18 at 21:00 Pantoprazole (Protonix Tab) 40 mg BID@18 PO Last administered on 10/14/18 06:20; Admin Dose 40 MG; Start 10/06/18 at 18:00 Lidocaine (Lidocaine 5% Oint) 1 applic TID TOP Last administered on 10/09/18 08:28; Admin Dose 1 APPLIC; Start 10/06/18 at 21:00 Phenyleph/Shark Oil/Min Oil/Petrol (Formulation R Oint) 1 applic PRN PRN LA HEMORROID PAIN/ITCHING; Start 10/08/18 at 02:28 Lactulose (Enulose) 20 gm Q6H PRN PO constipation; Start 10/08/18 at 12:00 Docusate Sodium (Colace) 200 mg HS PO Last administered on 10/13/18 01:30; Admin Dose 200 MG; Start 10/08/18 at 21:00 Tramadol HCl (Ultram) 100 mg Q6H PRN PO PAIN LEVEL 6-10 Last administered on 10/14/18 11:31; Admin Dose 100 MG; Start 10/09/18 at 18:30 Naphazoline HCl (Clear Eyes / Naphcon) 2 drop BID BOTH EYES Last administered on 10/11/18 10:01; Admin Dose 2 DROP; Start 10/09/18 at 21:00; Stop 1/11/19 at 21:00 Polyethylene Glycol (Miralax) 17 gm BID NGT Last administered on 10/10/18at 08:44; Admin Dose 17 GM; Start 10/10/18 at 09:00 Albumin Human 250 ml @ 250 mls/hr WITH DIALYSIS PRN IV SBP<90; Start 10/11/18 at 12:30 Sodium Chloride (NS) -To prime the dialy... DIRECTED FOR HD PRN IV SBP<90; Start 10/11/18 at 12:30 Lubiprostone (Amitiza) 24 mcg BID PO Last administered on 10/13/18at 12:20; Admin Dose 24 MCG; Start 10/12/18 at 10:30 Heparin Sodium (Porcine) (Heparin (1000 Units/ml)) 4,700 unit AFTER DIALYSIS CATHETER Last administered on 10/12/18at 23:36; Admin Dose 4,700 UNIT; Start 10/12/18 at 22:30 WILLY MEDEIROS Oct 14, 2018 16:52
--- NOTE | 2018-10-14 17:18 | PAC ---
Date/Time of Note Date/Time of Note DATE: 10/14/18 TIME: 17:17 Post-Anesthesia Notes Post-Anesthesia Note Last documented vital signs Vital Signs Date Temp Pulse Resp B/P (MAP) Pulse Ox O2 O2 Flow FiO2 Time Delivery Rate 10/14/18 98.2 18 144/65 90 Room Air 08:44 (91) 10/14/18 87 01:53 Activity: WNL Respiratory function: WNL Cardiovascular function: WNL Mental status: Baseline Pain reasonably controlled: Yes Hydration appropriate: Yes Nausea/Vomiting absent: Yes Comments BP: 138/77 HR: 77 RR: 15 T: 98 SaO2: 95% ADRIANA WILLARD MD Oct 14, 2018 17:18
--- NOTE | 2018-10-14 17:20 | GILP ---
DATE OF PROCEDURE: INDICATION: The patient is a 58-year-old female who complains of abdominal pain after eating food an d nausea and vomiting. She is undergoing this procedure to rule out peptic ulcer disease, H. pylori infection or gastric outlet obstruction. The risk of the procedure, related and unrelated complicati ons, anesthetic risks and alternatives were discussed. Informed consent was obtained. DESCRIPTION OF PROCEDURE: The patient was brought to the GI lab, placed in a supine position by the anesthesiologist besides patient could not come to the left side in view of her morbid obesity. She was sedated by the anesthesiologist. Scope was passed with much ease into esophagus and advanced fur ther down into stomach. Dorman gastritis of moderate degree was identified. Duodenum, first and second part including ampulla appeared normal. Multiple biopsies were taken from the stomach to rule out H . pylori infection. Retroversion was done which was normal. Scope was straightened out and removed with good patient tolerance. IMPRESSION: 1. Normal esophagus. 2. Normal Z-line. 3. Dorman gastritis of moderate degree. 4. Normal duodenum and ampulla. PLAN: Review histopathology. In the interim time, I placed the patient on PPI and Reglan. Dictated By: FROILAN MOCK/NTS Conf#: [id number] DID#: [id number] CC: SULY MOYER MD; BRIAN ROBLEDO MD;*End*
--- NOTE | 2018-10-14 17:23 | HPN ---
Date/Time of Note Date/Time of Note DATE: 10/14/18 TIME: 17:23 Interval H&P Admission Note Pt. seen H&P reviewed: No system changes FROILAN GARRISON MD Oct 14, 2018 17:23
[2018-10-14] MEDS: ONDANSETRON 4 MG INJ IV PRN (20:17)
[2018-10-14] MEDS: DOCUSATE SODIUM 100 MG CAP PO SCH (20:18)
[2018-10-14] MEDS: PE/SHARK OIL/MO/PETROL 30 GM OINT PR PRN (20:31)
[2018-10-14] MEDS: ACCU-CHEK XX SCH (21:29)
[2018-10-15] MEDS: GABAPENTIN 100 MG CAP PO PRN ×2 (02:20→22:46)
[2018-10-15] MEDS: MELATONIN 3 MG TABLET PO PRN ×2 (02:20→22:46)
[2018-10-15] MEDS: traMADol 50 MG TAB PO PRN ×4 (02:21→20:25)
[2018-10-15 02:40] VITALS: BP 150/72; PULSE 78; RESP 20
[2018-10-15] MEDS: ACETAMINOPHEN 325 MG TAB PO PRN (05:35)
[2018-10-15] MEDS: LOPERAMIDE 2 MG CAP PO PRN ×2 (05:35→17:40)
[2018-10-15] MEDS: PANTOPRAZOLE (EC) 40 MG TAB PO SCH ×2 (05:35→17:40)
[2018-10-15] MEDS: ONDANSETRON 4 MG INJ IV PRN (06:15)
[2018-10-15 08:10] VITALS: BP 135/70; PULSE 80; RESP 18
[2018-10-15] MEDS: INSULIN ASPART [NOVOLOG] 3 ML PEN SC SCH ×4 (08:50→21:00)
[2018-10-15] MEDS: POLYETHYLENE GLYCOL 17 GM PACKET NGT SCH ×2 (09:00→21:00)
[2018-10-15] MEDS: PSYLLIUM (SUGAR FREE) PACKET PO SCH ×2 (09:00→21:00)
[2018-10-15] MEDS: LACTOBACILLUS RHAMNOSUS CAP PO SCH ×2 (09:00→20:25)
[2018-10-15] MEDS: ARTIFICIAL TEARS 15 ML OPH BOTH EYES SCH ×4 (09:06→20:37)
[2018-10-15] MEDS: LUBIPROSTONE 24 MCG CAP PO SCH ×2 (09:07→21:00)
[2018-10-15] MEDS: ALLOPURINOL 100 MG TAB PO SCH (09:08)
[2018-10-15] MEDS: L ACIDOPHIL/B LACTIS/B LONGUM CAPSULE PO SCH ×2 (09:08→21:00)
[2018-10-15] MEDS: FUROSEMIDE 40 MG TAB PO SCH (09:08)
[2018-10-15] MEDS: NYSTATIN 30 GM POWDER BTL TOP SCH ×2 (09:09→20:38)
[2018-10-15] MEDS: BALSAM PERU/CASTOR OIL 60 GM TUBE TOP SCH ×2 (09:09→21:00)
[2018-10-15] MEDS: LIDOCAINE 5% 35 GM OINT TOP SCH ×3 (09:09→20:39)
[2018-10-15] MEDS: DICLOFENAC SODIUM 1% GEL 100 GM TUBE TP SCH ×4 (09:10→20:38)
--- NOTE | 2018-10-15 13:14 | PN ---
Date/Time of Note Date/Time of Note DATE: 10/15/18 TIME: 13:13 Assessment/Plan VTE Prophylaxis Risk score (from Nsg)>0 risk: 6 SCD applied (from Nsg): Yes Pharmacological prophylaxis: heparin Lines/Catheters IV Catheter Type (from Nrsg): Saline Lock Urinary Cath still in place: No (PT. REFUSED TO HAVE MCMULLEN EVEN FOR 24 HRS.) Assessment/Plan Hospital Course 1. ckd, hyperkalemia 2. c diff hx 3. Opiates dependency 4. Morbid obesity. 5. Diabetes. 6. Hypertension, 7. Gout, hx 8. Neuropathy. 9. History of congestive heart failure. 10. weakness 11. deconditioning 12. Non compliance, pt refused Valtessa, HD 13. Left shoulder chronic pain. Xray was reviewed from the last visit, it is arthrosis left acromioclavicular joint 14. constipation 15. UTI 16. right arm Picc line is not functioning Assessment/Plan - collecting also get 24 hr urine studies for Cr Clearence after HD - PPI BID -start heparin -stool softeners. - Lactobacillus - cw with PT> now PT recommended 3 times a week -- pt refused cortisone injection per ortho - Wound care - US with thrombosed graft - Ortho consult however patient refused a cortisone shot - avoid narcotics as it would limit her ability to walk for PT as it happened last admission since pts goal is Physical therapy - low k diet, cw lasix -tyenolol on as needed headache - warm compresses to shoulder Result Diagram: 10/14/18 1100 10/14/18 1100 Results 24hrs Laboratory Tests Test 10/14/18 13:19 10/14/18 17:14 10/14/18 20:36 10/15/18 09:02 Bedside Glucose 96 162 165 138 Test 10/15/18 13:03 Bedside Glucose 130 Subjective 24 Hr Interval Summary Free Text/Dictation dirty HD cath Musculoskeletal: back pain Exam/Review of Systems Vital Signs Vitals Vital Signs Date Temp Pulse Resp B/P (MAP) Pulse Ox O2 O2 Flow FiO2 Time Delivery Rate 10/15/18 98.0 78 20 150/72 95 Nasal 02:40 (98) Cannula 10/14/18 3.0 17:56 Exam right chest Permcath Constitutional: alert, oriented Neck: supple Respiratory: clear to auscultation Cardiovascular: regular rate and rhythm Medications Medications Current Medications Acetaminophen (Tylenol Tab) 325 mg Q4H PRN PO MILD PAIN(1-3)OR ELEVATED TEMP Last administered on 10/01/18 16:14; Admin Dose 325 MG; Start 07/20/18 at 23:00 Allopurinol (Zyloprim) 100 mg DAILY PO Last administered on 10/15/18 09:08; Admin Dose 100 MG; Start 07/21/18 at 09:00 IV Flush (NS 3 ml) 3 ml PER PROTOCOL IV ; Start 07/20/18 at 23:00 Acetaminophen (Tylenol Tab) 650 mg Q6H PRN PO PAIN LEVEL 1-3 OR FEVER Last a dministered on 10/15/18 05:35; Admin Dose 650 MG; Start 07/20/18 at 23:00 Acetaminophen (Tylenol Supp) 650 mg Q6H PRN NE PAIN LEVEL 1-3 OR FEVER; Start 07/20/18 at 23:00 Bisacodyl (Dulcolax) 5 mg DAILY PRN PO CONSTIPATION Last administered on 10/12/18 03:58; Admin Dose 5 MG; Start 07/20/18 at 23:00 Diagnostic Test (Pha) (Accu-Chek) 1 ea 02 XX Last administered on 10/13/18 01:33; Admin Dose 1 EA; Start 07/21/18 at 02:00 Insulin Aspart (Novolog Insulin Pen) NOVOLOG *MILD* ALGORITHM WITH MEALS BEDTIME SC Last administered on 10/12/18 17:53; Admin Dose 1 UNIT; Start 07/21/18 at 07:50 Ergocalciferol (Drisdol) 50,000 unit Lacy@0900 PO Last administered on 10/09/18 10:40; Admin Dose 50,000 UNIT; Start 07/24/18 at 09:00 Miscellaneous Information 1 ea NOTE XX ; Start 07/20/18 at 23:00 Glucose (Glutose) 15 gm Q15M PRN PO DECREASED GLUCOSE; Start 07/20/18 at 23:00 Glucose (Glutose) 22.5 gm Q15M PRN PO DECREASED GLUCOSE; Start 07/20/18 at 23:00 Dextrose (D50w Syringe) 25 ml Q15M PRN IV DECREASED GLUCOSE; Start 07/20/18 at 23:00 Dextrose (D50w Syringe) 50 ml Q15M PRN IV DECREASED GLUCOSE; Start 07/20/18 at 23:00 Glucagon (Glucagen) 1 mg Q15M PRN IM DECREASED GLUCOSE; Start 07/20/18 at 23:00 Glucose (Glutose) 15 gm Q15M PRN BUCCAL DECREASED GLUCOSE; Start 07/20/18 at 2 3:00 Melatonin (Melatonin) 3 mg HS PRN PO INSOMNIA Last administered on 10/15/18 02:20; Admin Dose 3 MG; Start 07/20/18 at 23:00 Diclofenac Sodium (Voltaren 1% Gel) 2 gm QID TP Last administered on 10/15/18 09:10; Admin Dose 2 GM; Start 07/22/18 at 13:00 Guaifenesin/ Dextromethorphan (Robitussin Dm Liquid Cup) 10 ml Q4H PRN PO COUGH; Start 07/30/18 at 15:00 Loratadine (Claritin) 10 mg DAILY PRN PO ALLERGIC REACTION Last administered on 08/07/18 12:48; Admin Dose 10 MG; Start 08/07/18 at 12:30 Hydralazine HCl (Apresoline) 10 mg Q6H PRN PO ELEVATED BLOOD PRESSURE Last administered on 09/14/18 02:44; Admin Dose 10 MG; Start 08/08/18 at 04:30 Hydralazine HCl (Apresoline) 25 mg TID PO Last administered on 10/15/18 09:07; Admin Dose 25 MG; Start 08/08/18 at 13:00 Eye Lubricant (Artificial Tears Oph) 2 drop QID BOTH EYES Last administered on 10/15/18 09:06; Admin Dose 2 DROP; Start 08/09/18 at 11:00 Calcium Carbonate (Tums) 500 mg PRN PRN PO HEARTBURN Last administered on 12:34; Admin Dose 500 MG; Start 08/09/18 at 14:30 Loperamide HCl (Imodium Cap) 2 mg QID PRN PO DIARRHEA Last administered on 10/15/18 05:35; Admin Dose 2 MG; Start 08/21/18 at 16:00 Lactobacillus Acidophilus/ Rhamnosus (Culturelle) 1 cap BID PO Last administered on 10/14/18 20:19; Admin Dose 1 CAP; Start 08/21/18 at 21:00 Nystatin (Nystatin Powder) 1 applic BID TOP Last administered on 10/15/18 09:09; Admin Dose 1 APPLIC; Start 08/28/18 at 21:00 Ondansetron HCl (Zofran Tab) 4 mg Q6H PRN PO NAUSEA AND/OR VOMITING Last administered on 09/10/18at 07:58; Admin Dose 4 MG; Start 09/03/18 at 16:00 Al Hydrox/Mg Hydrox/Simethicone (Mag-Al Plus) 30 ml Q4H PRN PO GASTROINTESTINAL UPSET; Start 09/10/18 at 18:00 Furosemide (Lasix) 40 mg DAILY PO Last administered on 10/15/18 09:08; Admin Dose 40 MG; Start 09/21/18 at 14:30 Carbamide Peroxide (Debrox Otic) 3 drop BID PRN BOTH EARS EAR PAIN Last administered on 10/01/18 20:19; Admin Dose 3 DROP; Start 09/24/18 at 16:00 Ondansetron HCl (Zofran Inj) 4 mg Q6H PRN IV NAUSEA AND/OR VOMITING Last administered on 10/15/18 06:15; Admin Dose 4 MG; Start 09/26/18 at 07:30 Gabapentin (Neurontin) 100 mg BID PRN PO NEUROPATHIC PAIN Last administered on 10/15/18 02:20; Admin Dose 100 MG; Start 09/27/18 at 21:00 Lactobacillus Acidophilus (Florajen3 Capsule) 1 each BID PO Last administered on 10/15/18 09:08; Admin Dose 1 EACH; Start 09/27/18 at 21:00 Psyllium Hydrophilic Mucilloid (Metamucil (Sugar Free)) 1 pkt BID PO Last administered on 10/07/18 20:32; Admin Dose 1 PKT; Start 09/27/18 at 21:00 Pantoprazole (Protonix Tab) 40 mg BID@,18 PO Last administered on 10/15/18 05:35; Admin Dose 40 MG; Start 10/06/18 at 18:00 Lidocaine (Lidocaine 5% Oint) 1 applic TID TOP Last administered on 10/15/18 09:09; Admin Dose 1 APPLIC; Start 10/06/18 at 21:00 Phenyleph/Shark Oil/Min Oil/Petrol (Formulation R Oint) 1 applic PRN PRN NE HEMORROID PAIN/ITCHING Last administered on 10/14/18at 20:31; Admin Dose 1 APPLIC; Start 10/08/18 at 02:28 Lactulose (Enulose) 20 gm Q6H PRN PO constipation; Start 10/08/18 at 12:00 Docusate Sodium (Colace) 200 mg HS PO Last administered on 10/14/18at 20:18; Admin Dose 200 MG; Start 10/08/18 at 21:00 Tramadol HCl (Ultram) 100 mg Q6H PRN PO PAIN LEVEL 6-10 Last administered on 10/15/18 09:10; Admin Dose 100 MG; Start 10/09/18 at 18:30 Polyethylene Glycol (Miralax) 17 gm BID NGT Last administered on 10/10/18at 08:44; Admin Dose 17 GM; Start 10/10/18 at 09:00 Albumin Human 250 ml @ 250 mls/hr WITH DIALYSIS PRN IV SBP<90; Start 10/11/18 at 12:30 Sodium Chloride (NS) -To prime the dialy... DIRECTED FOR HD PRN IV SBP<90; Start 10/11/18 at 12:30 Lubiprostone (Amitiza) 24 mcg BID PO Last administered on 10/15/18at 09:07; Admin Dose 24 MCG; Start 10/12/18 at 10:30 Heparin Sodium (Porcine) (Heparin (1000 Units/ml)) 4,700 unit AFTER DIALYSIS CATHETER Last administered on 10/12/18at 23:36; Admin Dose 4,700 UNIT; Start 10/12/18 at 22:30 WILLY MEDEIROS Oct 15, 2018 13:14
--- NOTE | 2018-10-15 13:30 | CONS ---
Date/Time of Note Date/Time of Note DATE: 10/15/18 TIME: 13:29 Assessment/Plan Assessment/Plan Assessment/Plan Hospital Course 58 yo female presents for whole body pain for which we were consulted for rectal pain 1. Rectal pain secondary to anal fissure -improved 2. Anal fissure 3. Constipation, chronic 4. GERD 5. CKD 3, now on HD 6. Morbid obesity 7. Diabetes mellitus 8. H/O CHF 9. Mild acute anemia, pt has been slowly trending down -anemia work up 10. Abdominal bloating after eating per pt with nausea and vomiting 11. Gastritis Plan EGD tomorrow. Patient refuses colonoscopy even though patient was explained how it would be beneficial. NPO p MN. Hold Heparin. CBC, INR, CMP in am Anemia work up Continue with bowel regimen Lactobacillus PPI BID Lidocaine for rectal pain Sitz bath BID Amitiza 24 mcg BID Review of histopathology Weight loss Result Diagram: 10/14/18 1100 10/14/18 1100 Results 24hrs Laboratory Tests Test 10/14/18 17:14 10/14/18 20:36 10/15/18 09:02 10/15/18 13:03 Bedside Glucose 162 165 138 130 Consultation Date/Type/Reason Admit Date/Time Jul 23, 2018 at 16:13 Initial Consult Date 10/06/18 24 HR Interval Summary Free Text/Dictation Lower abdominal discomfort Exam/Review of Systems Vital Signs Vitals Vital Signs Date Temp Pulse Resp B/P (MAP) Pulse Ox O2 O2 Flow FiO2 Time Delivery Rate 10/15/18 98.0 78 20 150/72 95 Nasal 02:40 (98) Cannula 10/14/18 3.0 17:56 Exam Constitutional: alert, oriented, well developed Psych: no complaints, nl mood/affect Head: normocephalic, atraumatic Eyes: nl conjunctiva, EOMI, nl lids, nl sclera, PERRL ENMT: nl external ears & nose, nl lips & teeth, nl nasal mucosa & septum Neck: supple, non-tender Respiratory: clear to auscultation, normal air movement Cardiovascular: regular rate and rhythm, nl pulses Gastrointestinal: soft, nl liver, spleen, non-tender Musculoskeletal: nl extremities to inspection, nl gait and stance Extremities: normal pulses 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, nl mental status, nl speech, nl strength Skin: nl turgor; No rash or lesions Lymph: nl lymph nodes Medications Medications Current Medications Acetaminophen (Tylenol Tab) 325 mg Q4H PRN PO MILD PAIN(1-3)OR ELEVATED TEMP Last administered on 10/01/18 16:14; Admin Dose 325 MG; Start 07/20/18 at 23:00 Allopurinol (Zyloprim) 100 mg DAILY PO Last administered on 10/15/18 09:08; Admin Dose 100 MG; Start 07/21/18 at 09:00 IV Flush (NS 3 ml) 3 ml PER PROTOCOL IV ; Start 07/20/18 at 23:00 Acetaminophen (Tylenol Tab) 650 mg Q6H PRN PO PAIN LEVEL 1-3 OR FEVER Last administered on 10/15/18 05:35; Admin Dose 650 MG; Start 07/20/18 at 23:00 Acetaminophen (Tylenol Supp) 650 mg Q6H PRN [place] PAIN LEVEL 1-3 OR FEVER; Start 07/20/18 at 23:00 Bisacodyl (Dulcolax) 5 mg DAILY PRN PO CONSTIPATION Last administered on 10/12/18 03:58; Admin Dose 5 MG; Start 07/20/18 at 23:00 Diagnostic Test (Pha) (Accu-Chek) 1 ea 02 XX Last administered on 10/13/18 01:33; Admin Dose 1 EA; Start 07/21/18 at 02:00 Insulin Aspart (Novolog Insulin Pen) NOVOLOG *MILD* ALGORITHM WITH MEALS BEDTIME SC Last administered on 10/12/18 17:53; Admin Dose 1 UNIT; Start 07/21/18 at 07:50 Ergocalciferol (Drisdol) 50,000 unit Lacy@0900 PO Last administered on 10/09/18 10:40; Admin Dose 50,000 UNIT; Start 07/24/18 at 09:00 Miscellaneous Information 1 ea NOTE XX ; Start 07/20/18 at 23:00 Glucose (Glutose) 15 gm Q15M PRN PO DECREASED GLUCOSE; Start 07/20/18 at 23:00 Glucose (Glutose) 22.5 gm Q15M PRN PO DECREASED GLUCOSE; Start 07/20/18 at 23:00 Dextrose (D50w Syringe) 25 ml Q15M PRN IV DECREASED GLUCOSE; Start 07/20/18 at 23:00 Dextrose (D50w Syringe) 50 ml Q15M PRN IV DECREASED GLUCOSE; Start 07/20/18 at 23:00 Glucagon (Glucagen) 1 mg Q15M PRN IM DECREASED GLUCOSE; Start 07/20/18 at 23:00 Glucose (Glutose) 15 gm Q15M PRN BUCCAL DECREASED GLUCOSE; Start 07/20/18 at 23:00 Melatonin (Melatonin) 3 mg HS PRN PO INSOMNIA Last administered on 10/15/18 02:20; Admin Dose 3 MG; Start 07/20/18 at 23:00 Diclofenac Sodium (Voltaren 1% Gel) 2 gm QID TP Last administered on 10/15/18 09:10; Admin Dose 2 GM; Start 07/22/18 at 13:00 Loratadine (Claritin) 10 mg DAILY PRN PO ALLERGIC REACTION Last administered on 08/07/18 12:48; Admin Dose 10 MG; Start 08/07/18 at 12:30 Hydralazine HCl (Apresoline) 10 mg Q6H PRN PO ELEVATED BLOOD PRESSURE Last a dministered on 09/14/18 02:44; Admin Dose 10 MG; Start 08/08/18 at 04:30 Hydralazine HCl (Apresoline) 25 mg TID PO Last administered on 10/15/18 09:07; Admin Dose 25 MG; Start 08/08/18 at 13:00 Eye Lubricant (Artificial Tears Oph) 2 drop QID BOTH EYES Last administered on 10/15/18 09:06; Admin Dose 2 DROP; Start 08/09/18 at 11:00 Calcium Carbonate (Tums) 500 mg PRN PRN PO HEARTBURN Last administered on 10/05/18 12:34; Admin Dose 500 MG; Start 08/09/18 at 14:30 Loperamide HCl (Imodium Cap) 2 mg QID PRN PO DIARRHEA Last administered on 10/15/18 05:35; Admin Dose 2 MG; Start 08/21/18 at 16:00 Lactobacillus Acidophilus/ Rhamnosus (Culturelle) 1 cap BID PO Last administered on 10/14/18 20:19; Admin Dose 1 CAP; Start 08/21/18 at 21:00 Nystatin (Nystatin Powder) 1 applic BID TOP Last administered on 10/15/18 09:09; Admin Dose 1 APPLIC; Start 08/28/18 at 21:00 Ondansetron HCl (Zofran Tab) 4 mg Q6H PRN PO NAUSEA AND/OR VOMITING Last administered on 09/10/18at 07:58; Admin Dose 4 MG; Start 09/03/18 at 16:00 Al Hydrox/Mg Hydrox/Simethicone (Mag-Al Plus) 30 ml Q4H PRN PO GASTROINTESTINAL UPSET; Start 09/10/18 at 18:00 Furosemide (Lasix) 40 mg DAILY PO Last administered on 10/15/18 09:08; Admin Dose 40 MG; Start 09/21/18 at 14:30 Carbamide Peroxide (Debrox Otic) 3 drop BID PRN BOTH EARS EAR PAIN Last administered on 10/01/18 20:19; Admin Dose 3 DROP; Start 09/24/18 at 16:00 Ondansetron HCl (Zofran Inj) 4 mg Q6H PRN IV NAUSEA AND/OR VOMITING Last administered on 10/15/18 06:15; Admin Dose 4 MG; Start 09/26/18 at 07:30 Gabapentin (Neurontin) 100 mg BID PRN PO NEUROPATHIC PAIN Last administered on 10/15/18 02:20; Admin Dose 100 MG; Start 09/27/18 at 21:00 Lactobacillus Acidophilus (Florajen3 Capsule) 1 each BID PO Last administered on 10/15/18 09:08; Admin Dose 1 EACH; Start 09/27/18 at 21:00 Psyllium Hydrophilic Mucilloid (Metamucil (Sugar Free)) 1 pkt BID PO Last administered on 10/07/18 20:32; Admin Dose 1 PKT; Start 09/27/18 at 21:00 Pantoprazole (Protonix Tab) 40 mg BID@,18 PO Last administered on 10/15/18 05:35; Admin Dose 40 MG; Start 10/06/18 at 18:00 Lidocaine (Lidocaine 5% Oint) 1 applic TID TOP Last administered on 10/15/18 09:09; Admin Dose 1 APPLIC; Start 10/06/18 at 21:00 Phenyleph/Shark Oil/Min Oil/Petrol (Formulation R Oint) 1 applic PRN PRN ND HEMORROID PAIN/ITCHING Last administered on 10/14/18 20:31; Admin Dose 1 A PPLIC; Start 10/08/18 at 02:28 Lactulose (Enulose) 20 gm Q6H PRN PO constipation; Start 10/08/18 at 12:00 Docusate Sodium (Colace) 200 mg HS PO Last administered on 10/14/18at 20:18; Admin Dose 200 MG; Start 10/08/18 at 21:00 Tramadol HCl (Ultram) 100 mg Q6H PRN PO PAIN LEVEL 6-10 Last administered on 10/15/18at 09:10; Admin Dose 100 MG; Start 10/09/18 at 18:30 Polyethylene Glycol (Miralax) 17 gm BID NGT Last administered on 10/10/18at 08:44; Admin Dose 17 GM; Start 10/10/18 at 09:00 Albumin Human 250 ml @ 250 mls/hr WITH DIALYSIS PRN IV SBP<90; Start 10/11/18 at 12:30 Sodium Chloride (NS) -To prime the dialy... DIRECTED FOR HD PRN IV SBP<90; Start 10/11/18 at 12:30 Lubiprostone (Amitiza) 24 mcg BID PO Last administered on 10/15/18at 09:07; Admin Dose 24 MCG; Start 10/12/18 at 10:30 Heparin Sodium (Porcine) (Heparin (1000 Units/ml)) 4,700 unit AFTER DIALYSIS CATHETER Last administered on 10/12/18at 23:36; Admin Dose 4,700 UNIT; Start 10/12/18 at 22:30 Heparin Sodium (Porcine) (Heparin (5000 Units/1ml)) 5,000 unit BID SC ; Start 10/15/18 at 13:30; Status FROILAN HOYOS MD Oct 15, 2018 13:30
[2018-10-15 14:00] VITALS: BP 140/74; PULSE 77; RESP 19
[2018-10-15] MEDS: HEPARIN 5,000 UNIT/1 ML VIAL SC SCH ×2 (14:25→20:31)
[2018-10-15 19:45] VITALS: BP 104/76; PULSE 82; RESP 20
[2018-10-15] MEDS: CARBAMIDE PEROXIDE 6.5% 15ML OTIC BOTH EARS PRN (20:39)
[2018-10-15] MEDS: PE/SHARK OIL/MO/PETROL 30 GM OINT PR PRN (20:40)
[2018-10-15] MEDS: DOCUSATE SODIUM 100 MG CAP PO SCH (21:00)
[2018-10-15] MEDS: ACCU-CHEK XX SCH (21:13)
[2018-10-16] MEDS: PANTOPRAZOLE (EC) 40 MG TAB PO SCH ×2 (05:53→17:49)
[2018-10-16] MEDS: traMADol 50 MG TAB PO PRN ×3 (05:54→17:49)
[2018-10-16] MEDS: PSYLLIUM (SUGAR FREE) PACKET PO SCH ×2 (08:27→21:00)
[2018-10-16] MEDS: ALLOPURINOL 100 MG TAB PO SCH (08:27)
[2018-10-16] MEDS: LUBIPROSTONE 24 MCG CAP PO SCH ×2 (08:27→21:41)
[2018-10-16] MEDS: L ACIDOPHIL/B LACTIS/B LONGUM CAPSULE PO SCH ×2 (08:27→21:00)
[2018-10-16] MEDS: FUROSEMIDE 40 MG TAB PO SCH (08:28)
[2018-10-16] MEDS: HEPARIN 5,000 UNIT/1 ML VIAL SC SCH ×2 (08:29→21:52)
[2018-10-16] MEDS: NYSTATIN 30 GM POWDER BTL TOP SCH ×2 (08:30→21:00)
[2018-10-16] MEDS: BALSAM PERU/CASTOR OIL 60 GM TUBE TOP SCH ×2 (08:30→21:00)
[2018-10-16] MEDS: INSULIN ASPART [NOVOLOG] 3 ML PEN SC SCH ×4 (08:30→21:53)
[2018-10-16] MEDS: LIDOCAINE 5% 35 GM OINT TOP SCH ×3 (08:31→21:00)
[2018-10-16] MEDS: ARTIFICIAL TEARS 15 ML OPH BOTH EYES SCH ×4 (08:32→21:00)
[2018-10-16] MEDS: POLYETHYLENE GLYCOL 17 GM PACKET NGT SCH ×2 (08:32→21:00)
[2018-10-16] MEDS: PE/SHARK OIL/MO/PETROL 30 GM OINT PR PRN (08:32)
[2018-10-16 08:33] VITALS: BP 148/66; PULSE 68; RESP 18
[2018-10-16] MEDS: DICLOFENAC SODIUM 1% GEL 100 GM TUBE TP SCH ×4 (08:33→21:00)
[2018-10-16] MEDS: LACTOBACILLUS RHAMNOSUS CAP PO SCH ×2 (09:00→21:00)
[2018-10-16] MEDS: ERGOCALCIFEROL 50,000 UNIT CAP PO SCH ×2 (12:38→12:40)
[2018-10-16 15:43] VITALS: BP 110/52; PULSE 80; RESP 16
--- NOTE | 2018-10-16 17:02 | CONS ---
Date/Time of Note Date/Time of Note DATE: 10/16/18 TIME: 17:01 Assessment/Plan Assessment/Plan Assessment/Plan Hospital Course 58 yo female presents for whole body pain for which we were consulted for rectal pain 1. Rectal pain secondary to anal fissure -improved 2. Anal fissure 3. Constipation, chronic 4. GERD 5. CKD 3, now on HD 6. Morbid obesity 7. Diabetes mellitus 8. H/O CHF 9. Mild acute anemia, pt has been slowly trending down -anemia work up 10. Abdominal bloating after eating per pt with nausea and vomiting 11. Gastritis 12. Jehovah witness Plan EGD tomorrow. Patient refuses colonoscopy even though patient was explained how it would be beneficial. NPO p MN. Hold Heparin. CBC, INR, CMP in am Anemia work up Continue with bowel regimen Lactobacillus PPI BID Lidocaine for rectal pain Sitz bath BID Amitiza 24 mcg BID Review of histopathology Weight loss Result Diagram: 10/14/18 1100 10/14/18 1100 Results 24hrs Laboratory Tests Test 10/15/18 17:39 10/15/18 20:16 10/16/18 08:22 10/16/18 12:42 Bedside Glucose 179 131 150 165 Consultation Date/Type/Reason Admit Date/Time Jul 23, 2018 at 16:13 Initial Consult Date 10/06/18 24 HR Interval Summary Free Text/Dictation No abdominal pain no nausea no vomiting Constitutional: no complaints Exam/Review of Systems Vital Signs Vitals Vital Signs Date Temp Pulse Resp B/P (MAP) Pulse Ox O2 O2 Flow FiO2 Time Delivery Rate 10/16/18 98.0 80 16 110/52 92 Room Air 15:43 (71) 10/14/18 3.0 17:56 Intake and Output 10/15/18 10/15/18 10/16/18 1515:00 23:00 07:00 IntakeIntake Total 400 ml 650 ml BalanceBalance 400 ml 650 ml Exam Constitutional: alert, oriented, well developed Psych: no complaints, nl mood/affect Head: normocephalic, atraumatic Eyes: nl conjunctiva, EOMI, nl lids, nl sclera, PERRL ENMT: nl external ears & nose, nl lips & teeth, nl nasal mucosa & septum Neck: supple, non-tender Respiratory: clear to auscultation, normal air movement Cardiovascular: regular rate and rhythm, nl pulses Gastrointestinal: soft, nl liver, spleen, non-tender Musculoskeletal: nl extremities to inspection, nl gait and stance Extremities: normal pulses 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, nl mental status, nl speech, nl strength Skin: nl turgor; No rash or lesions Lymph: nl lymph nodes Medications Medications Current Medications Acetaminophen (Tylenol Tab) 325 mg Q4H PRN PO MILD PAIN(1-3)OR ELEVATED TEMP Last administered on 10/01/18 16:14; Admin Dose 325 MG; Start 07/20/18 at 23:00 Allopurinol (Zyloprim) 100 mg DAILY PO Last administered on 10/16/18 08:27; Admin Dose 100 MG; Start 07/21/18 at 09:00 IV Flush (NS 3 ml) 3 ml PER PROTOCOL IV ; Start 07/20/18 at 23:00 Acetaminophen (Tylenol Tab) 650 mg Q6H PRN PO PAIN LEVEL 1-3 OR FEVER Last administered on 10/15/18 05:35; Admin Dose 650 MG; Start 07/20/18 at 23:00 Acetaminophen (Tylenol Supp) 650 mg Q6H PRN SC PAIN LEVEL 1-3 OR FEVER; Start 07/20/18 at 23:00 Bisacodyl (Dulcolax) 5 mg DAILY PRN PO CONSTIPATION Last administered on 10/12/18 03:58; Admin Dose 5 MG; Start 07/20/18 at 23:00 Diagnostic Test (Pha) (Accu-Chek) 1 ea 02 XX Last administered on 10/13/18 01:33; Admin Dose 1 EA; Start 07/21/18 at 02:00 Insulin Aspart (Novolog Insulin Pen) NOVOLOG *MILD* ALGORITHM WITH MEALS BEDTIME SC Last administered on 10/16/18 12:50; Admin Dose 1 UNIT; Start 07/21/18 at 07:50 Ergocalciferol (Drisdol) 50,000 unit Lacy@0900 PO Last administered on 10/16/18 12:38; Admin Dose 50,000 UNIT; Start 07/24/18 at 09:00 Miscellaneous Information 1 ea NOTE XX ; Start 07/20/18 at 23:00 Glucose (Glutose) 15 gm Q15M PRN PO DECREASED GLUCOSE; Start 07/20/18 at 23:00 Glucose (Glutose) 22.5 gm Q15M PRN PO DECREASED GLUCOSE; Start 07/20/18 at 23:00 Dextrose (D50w Syringe) 25 ml Q15M PRN IV DECREASED GLUCOSE; Start 07/20/18 at 23:00 Dextrose (D50w Syringe) 50 ml Q15M PRN IV DECREASED GLUCOSE; Start 07/20/18 at 23:00 Glucagon (Glucagen) 1 mg Q15M PRN IM DECREASED GLUCOSE; Start 07/20/18 at 23:00 Glucose (Glutose) 15 gm Q15M PRN BUCCAL DECREASED GLUCOSE; Start 07/20/18 at 23:00 Melatonin (Melatonin) 3 mg HS PRN PO INSOMNIA Last administered on 10/15/18 22:46; Admin Dose 3 MG; Start 07/20/18 at 23:00 Diclofenac Sodium (Voltaren 1% Gel) 2 gm QID TP Last administered on 10/16/18 08:33; Admin Dose 2 GM; Start 07/22/18 at 13:00 Loratadine (Claritin) 10 mg DAILY PRN PO ALLERGIC REACTION Last administered on 08/07/18 12:48; Admin Dose 10 MG; Start 08/07/18 at 12:30 Hydralazine HCl (Apresoline) 10 mg Q6H PRN PO ELEVATED BLOOD PRESSURE Last administered on 09/14/18 02:44; Admin Dose 10 MG; Start 08/08/18 at 04:30 Hydralazine HCl (Apresoline) 25 mg TID PO Last administered on 10/16/18 12:38; Admin Dose 25 MG; Start 08/08/18 at 13:00 Eye Lubricant (Artificial Tears Oph) 2 drop QID BOTH EYES Last administered on 10/16/18 08:32; Admin Dose 2 DROP; Start 08/09/18 at 11:00 Calcium Carbonate (Tums) 500 mg PRN PRN PO HEARTBURN Last administered on 10/05/18 12:34; Admin Dose 500 MG; Start 08/09/18 at 14:30 Loperamide HCl (Imodium Cap) 2 mg QID PRN PO DIARRHEA Last administered on 10/15/18 17:40; Admin Dose 2 MG; Start 08/21/18 at 16:00 Lactobacillus Acidophilus/ Rhamnosus (Culturelle) 1 cap BID PO Last administered on 10/15/18 20:25; Admin Dose 1 CAP; Start 08/21/18 at 21:00 Nystatin (Nystatin Powder) 1 applic BID TOP Last administered on 10/16/18 08:30; Admin Dose 1 APPLIC; Start 08/28/18 at 21:00 Ondansetron HCl (Zofran Tab) 4 mg Q6H PRN PO NAUSEA AND/OR VOMITING Last admini stered on 09/10/18at 07:58; Admin Dose 4 MG; Start 09/03/18 at 16:00 Al Hydrox/Mg Hydrox/Simethicone (Mag-Al Plus) 30 ml Q4H PRN PO GASTROINTESTINAL UPSET; Start 09/10/18 at 18:00 Furosemide (Lasix) 40 mg DAILY PO Last administered on 10/16/18 08:28; Admin Dose 40 MG; Start 09/21/18 at 14:30 Carbamide Peroxide (Debrox Otic) 3 drop BID PRN BOTH EARS EAR PAIN Last administered on 10/15/18 20:39; Admin Dose 3 DROP; Start 09/24/18 at 16:00 Ondansetron HCl (Zofran Inj) 4 mg Q6H PRN IV NAUSEA AND/OR VOMITING Last administered on 10/15/18 06:15; Admin Dose 4 MG; Start 09/26/18 at 07:30 Gabapentin (Neurontin) 100 mg BID PRN PO NEUROPATHIC PAIN Last administered on 10/15/18 22:46; Admin Dose 100 MG; Start 09/27/18 at 21:00 Lactobacillus Acidophilus (Florajen3 Capsule) 1 each BID PO Last administered on 10/16/18 08:27; Admin Dose 1 EACH; Start 09/27/18 at 21:00 Psyllium Hydrophilic Mucilloid (Metamucil (Sugar Free)) 1 pkt BID PO Last administered on 10/16/18 08:27; Admin Dose 1 PKT; Start 09/27/18 at 21:00 Pantoprazole (Protonix Tab) 40 mg BID@06,18 PO Last administered on 10/16/18 05:53; Admin Dose 40 MG; Start 10/06/18 at 18:00 Lidocaine (Lidocaine 5% Oint) 1 applic TID TOP Last administered on 10/16/18 08:31; Admin Dose 1 APPLIC; Start 10/06/18 at 21:00 Phenyleph/Shark Oil/Min Oil/Petrol (Formulation R Oint) 1 applic PRN PRN SC HEMORROID PAIN/ITCHING Last administered on 10/16/18 08:32; Admin Dose 1 APPLIC; Start 10/08/18 at 02:28 Lactulose (Enulose) 20 gm Q6H PRN PO constipation; Start 10/08/18 at 12:00 Docusate Sodium (Colace) 200 mg HS PO Last administered on 10/14/18 20:18; Admin Dose 200 MG; Start 10/08/18 at 21:00 Tramadol HCl (Ultram) 100 mg Q6H PRN PO PAIN LEVEL 6-10 Last administered on 10/16/18 12:38; Admin Dose 100 MG; Start 10/09/18 at 18:30 Polyethylene Glycol (Miralax) 17 gm BID NGT Last administered on 10/16/18 08:32; Admin Dose 17 GM; Start 10/10/18 at 09:00 Albumin Human 250 ml @ 250 mls/hr WITH DIALYSIS PRN IV SBP<90; Start 10/11/18 at 12:30 Sodium Chloride (NS) -To prime the dialy... DIRECTED FOR HD PRN IV SBP<90; Start 10/11/18 at 12:30 Lubiprostone (Amitiza) 24 mcg BID PO Last administered on 10/16/18 08:27; Admin Dose 24 MCG; Start 10/12/18 at 10:30 Heparin Sodium (Porcine) (Heparin (1000 Units/ml)) 4,700 unit AFTER DIALYSIS CATHETER Last administered on 10/12/18 23:36; Admin Dose 4,700 UNIT; Start 10/12/18 at 22:30 Heparin Sodium (Porcine) (Heparin (5000 Units/1ml)) 5,000 unit BID SC Last administered on 10/16/18 08:29; Admin Dose 5,000 UNIT; Start 10/15/18 at 13:30 FROILAN GARRISON MD Oct 16, 2018 17:02
--- NOTE | 2018-10-16 18:22 | PN ---
Date/Time of Note Date/Time of Note DATE: 10/16/18 TIME: 18:20 Assessment/Plan VTE Prophylaxis Risk score (from Ns)>0 risk: 8 SCD applied (from Ns): Yes SCD contraindicated: other Pharmacological prophylaxis: other Lines/Catheters IV Catheter Type (from Nrs): [place] Urinary Cath still in place: No (PT. REFUSED TO HAVE [facility] EVEN FOR 24 HRS.) Assessment/Plan Hospital Course 1. . ckd on hd REFUSING HD 2. c diff hx 3. Chronic kidney disease, 4. Morbid obesity.W DECONDITIONING 5. Diabetes. 6. Hypertension, 7. Gout.hx 8. Neuropathy. 9. History of congestive heart failure. 10 weakness 11 deconditioning 13 NON COMPLIANCEW TREATMENT 14 s/p Fall ? AMS confusion likley due to UTI 15 uti klebsiella and enterococcus hx 16 dyspepsia PLAN REFUSED HD CK LABS SNF PLACEMENT Result Diagram: 10/14/18 1100 10/14/18 1100 Results 24hrs Laboratory Tests Test 10/15/18 20:16 10/16/18 08:22 10/16/18 12:42 10/16/18 17:36 Bedside Glucose 131 150 165 188 Subjective 24 Hr Interval Summary Cardiovascular: no complaints Gastrointestinal: no complaints Genitourinary: no complaints Exam/Review of Systems Vital Signs Vitals Vital Signs Date Temp Pulse Resp B/P (MAP) Pulse Ox O2 O2 Flow FiO2 Time Delivery Rate 10/16/18 98.0 80 16 110/52 92 Room Air 15:43 (71) 10/14/18 3.0 17:56 Intake and Output 10/15/18 10/15/18 10/16/18 1515:00 23:00 07:00 IntakeIntake Total 400 ml 650 ml BalanceBalance 400 ml 650 ml Exam Respiratory: clear to auscultation Cardiovascular: regular rate and rhythm Gastrointestinal: soft Musculoskeletal: nl extremities to inspection Extremities: normal pulses Medications Medications Current Medications Acetaminophen (Tylenol Tab) 325 mg Q4H PRN PO MILD PAIN(1-3)OR ELEVATED TEMP Last administered on 10/01/18at 16:14; Admin Dose 325 MG; Start 07/20/18 at 23:00 Allopurinol (Zyloprim) 100 mg DAILY PO Last administered on 10/16/18at 08:27; Admin Dose 100 MG; Start 07/21/18 at 09:00 IV Flush (NS 3 ml) 3 ml PER PROTOCOL IV ; Start 07/20/18 at 23:00 Acetaminophen (Tylenol Tab) 650 mg Q6H PRN PO PAIN LEVEL 1-3 OR FEVER Last administered on 10/15/18 05:35; Admin Dose 650 MG; Start 07/20/18 at 23:00 Acetaminophen (Tylenol Supp) 650 mg Q6H PRN [place] PAIN LEVEL 1-3 OR FEVER; Start 07/20/18 at 23:00 Bisacodyl (Dulcolax) 5 mg DAILY PRN PO CONSTIPATION Last administered on 10/12/18 03:58; Admin Dose 5 MG; Start 07/20/18 at 23:00 Diagnostic Test (Pha) (Accu-Chek) 1 ea 02 XX Last administered on 10/13/18 01:33; Admin Dose 1 EA; Start 07/21/18 at 02:00 Insulin Aspart (Novolog Insulin Pen) NOVOLOG *MILD* ALGORITHM WITH MEALS BEDTIME SC Last administered on 10/16/18 17:50; Admin Dose 2 UNIT; Start 07/21/18 at 07:50 Ergocalciferol (Drisdol) 50,000 unit Lacy@0900 PO Last administered on 10/16/18 12:38; Admin Dose 50,000 UNIT; Start 07/24/18 at 09:00 Miscellaneous Information 1 ea NOTE XX ; Start 07/20/18 at 23:00 Glucose (Glutose) 15 gm Q15M PRN PO DECREASED GLUCOSE; Start 07/20/18 at 23:00 Glucose (Glutose) 22.5 gm Q15M PRN PO DECREASED GLUCOSE; Start 07/20/18 at 23:00 Dextrose (D50w Syringe) 25 ml Q15M PRN IV DECREASED GLUCOSE; Start 07/20/18 at 23:00 Dextrose (D50w Syringe) 50 ml Q15M PRN IV DECREASED GLUCOSE; Start 07/20/18 at 23:00 Glucagon (Glucagen) 1 mg Q15M PRN IM DECREASED GLUCOSE; Start 07/20/18 at 23:00 Glucose (Glutose) 15 gm Q15M PRN BUCCAL DECREASED GLUCOSE; Start 07/20/18 at 23:00 Melatonin (Melatonin) 3 mg HS PRN PO INSOMNIA Last administered on 10/15/18 22:46; Admin Dose 3 MG; Start 07/20/18 at 23:00 Diclofenac Sodium (Voltaren 1% Gel) 2 gm QID TP Last administered on 10/16/18 08:33; Admin Dose 2 GM; Start 07/22/18 at 13:00 Loratadine (Claritin) 10 mg DAILY PRN PO ALLERGIC REACTION Last administered on 08/07/18 12:48; Admin Dose 10 MG; Start 08/07/18 at 12:30 Hydralazine HCl (Apresoline) 10 mg Q6H PRN PO ELEVATED BLOOD PRESSURE Last administered on 09/14/18 02:44; Admin Dose 10 MG; Start 08/08/18 at 04:30 Hydralazine HCl (Apresoline) 25 mg TID PO Last administered on 10/16/18 12:38; Admin Dose 25 MG; Start 08/08/18 at 13:00 Eye Lubricant (Artificial Tears Oph) 2 drop QID BOTH EYES Last administered on 10/16/18 08:32; Admin Dose 2 DROP; Start 08/09/18 at 11:00 Calcium Carbonate (Tums) 500 mg PRN PRN PO HEARTBURN Last administered on 10/05/18 12:34; Admin Dose 500 MG; Start 08/09/18 at 14:30 Loperamide HCl (Imodium Cap) 2 mg QID PRN PO DIARRHEA Last administered on 10/15/18 17:40; Admin Dose 2 MG; Start 08/21/18 at 16:00 Lactobacillus Acidophilus/ Rhamnosus (Culturelle) 1 cap BID PO Last administere d on 10/15/18 20:25; Admin Dose 1 CAP; Start 08/21/18 at 21:00 Nystatin (Nystatin Powder) 1 applic BID TOP Last administered on 10/16/18 08:30; Admin Dose 1 APPLIC; Start 08/28/18 at 21:00 Ondansetron HCl (Zofran Tab) 4 mg Q6H PRN PO NAUSEA AND/OR VOMITING Last administered on 09/10/18 07:58; Admin Dose 4 MG; Start 09/03/18 at 16:00 Al Hydrox/Mg Hydrox/Simethicone (Mag-Al Plus) 30 ml Q4H PRN PO GASTROINTESTINAL UPSET; Start 09/10/18 at 18:00 Furosemide (Lasix) 40 mg DAILY PO Last administered on 10/16/18 08:28; Admin Dose 40 MG; Start 09/21/18 at 14:30 Carbamide Peroxide (Debrox Otic) 3 drop BID PRN BOTH EARS EAR PAIN Last administered on 10/15/18 20:39; Admin Dose 3 DROP; Start 09/24/18 at 16:00 Ondansetron HCl (Zofran Inj) 4 mg Q6H PRN IV NAUSEA AND/OR VOMITING Last admini stered on 10/15/18 06:15; Admin Dose 4 MG; Start 09/26/18 at 07:30 Gabapentin (Neurontin) 100 mg BID PRN PO NEUROPATHIC PAIN Last administered on 10/15/18 22:46; Admin Dose 100 MG; Start 09/27/18 at 21:00 Lactobacillus Acidophilus (Florajen3 Capsule) 1 each BID PO Last administered on 10/16/18 08:27; Admin Dose 1 EACH; Start 09/27/18 at 21:00 Psyllium Hydrophilic Mucilloid (Metamucil (Sugar Free)) 1 pkt BID PO Last administered on 10/16/18 08:27; Admin Dose 1 PKT; Start 09/27/18 at 21:00 Pantoprazole (Protonix Tab) 40 mg BID@06,18 PO Last administered on 10/16/18 17:49; Admin Dose 40 MG; Start 10/06/18 at 18:00 Lidocaine (Lidocaine 5% Oint) 1 applic TID TOP Last administered on 10/16/18 08:31; Admin Dose 1 APPLIC; Start 10/06/18 at 21:00 Phenyleph/Shark Oil/Min Oil/Petrol (Formulation R Oint) 1 applic PRN PRN [place] HEMORROID PAIN/ITCHING Last administered on 10/16/18 08:32; Admin Dose 1 APPLIC; Start 10/08/18 at 02:28 Lactulose (Enulose) 20 gm Q6H PRN PO constipation; Start 10/08/18 at 12:00 Docusate Sodium (Colace) 200 mg HS PO Last administered on 10/14/18 20:18; Admin Dose 200 MG; Start 10/08/18 at 21:00 Tramadol HCl (Ultram) 100 mg Q6H PRN PO PAIN LEVEL 6-10 Last administered on 10/16/18 17:49; Admin Dose 100 MG; Start 10/09/18 at 18:30 Polyethylene Glycol (Miralax) 17 gm BID NGT Last administered on 10/16/18 08:32; Admin Dose 17 GM; Start 10/10/18 at 09:00 Albumin Human 250 ml @ 250 mls/hr WITH DIALYSIS PRN IV SBP<90; Start 10/11/18 at 12:30 Sodium Chloride (NS) -To prime the dialy... DIRECTED FOR HD PRN IV SBP<90; Start 10/11/18 at 12:30 Lubiprostone (Amitiza) 24 mcg BID PO Last administered on 10/16/18 08:27; Admin Dose 24 MCG; Start 10/12/18 at 10:30 Heparin Sodium (Porcine) (Heparin (1000 Units/ml)) 4,700 unit AFTER DIALYSIS CATHETER Last administered on 10/12/18 23:36; Admin Dose 4,700 UNIT; Start 10/12/18 at 22:30 Heparin Sodium (Porcine) (Heparin (5000 Units/1ml)) 5,000 unit BID SC Last administered on 10/16/18 08:29; Admin Dose 5,000 UNIT; Start 10/15/18 at 13:30 BRIAN ROBLEDO MD Oct 16, 2018 18:22
[2018-10-16 20:30] VITALS: BP 115/58; PULSE 85; RESP 18
[2018-10-16] MEDS: DOCUSATE SODIUM 100 MG CAP PO SCH (21:41)
[2018-10-17] MEDS: ACCU-CHEK XX SCH (02:00)
[2018-10-17] MEDS: traMADol 50 MG TAB PO PRN ×3 (02:29→21:12)
[2018-10-17] MEDS: MELATONIN 3 MG TABLET PO PRN (02:29)
[2018-10-17 02:30] VITALS: BP 143/69; PULSE 82; RESP 19
[2018-10-17] MEDS: PANTOPRAZOLE (EC) 40 MG TAB PO SCH ×2 (06:00→18:00)
--- NOTE | 2018-10-17 06:56 | PN ---
Date/Time of Note Date/Time of Note DATE: 10/17/18 TIME: 06:53 Assessment/Plan VTE Prophylaxis Risk score (from Nsg)>0 risk: 7 SCD applied (from Nsg): Yes Pharmacological prophylaxis: heparin Lines/Catheters IV Catheter Type (from Nrsg): Saline Lock Urinary Cath still in place: No (PT. REFUSED TO HAVE MCMULLEN EVEN FOR 24 HRS.) Assessment/Plan Hospital Course 58 yo female presents for whole body pain for which we were consulted for rectal pain 1. Rectal pain secondary to anal fissure -improved 2. Anal fissure 3. Constipation, chronic 4. GERD 5. CKD 3, now on HD, refusing HD 6. Morbid obesity with deconditioning 7. Diabetes mellitus 8. H/O CHF 9. Mild acute anemia likely due to chronic diseae -anemia work up 10. Abdominal bloating after eating per pt with nausea and vomiting -improved Plan Continue PT Continue with bowel regimen PPI BID Sitz bath BID Amitiza 24 mcg BID Pt examined and plan of care discussed with Dr. Alvarado Result Diagram: 10/14/18 1100 10/14/18 1100 Results 24hrs Laboratory Tests Test 10/16/18 08:22 10/16/18 12:42 10/16/18 17:36 10/16/18 21:37 Bedside Glucose 150 165 188 213 Test 10/17/18 01:42 Bedside Glucose 167 Subjective 24 Hr Interval Summary Free Text/Dictation Pt states rectal pain intermittent and improved. Abd pain and bloating improved. Non compliant. Refusing many medications and HD. Exam/Review of Systems Vital Signs Vitals Vital Signs Date Temp Pulse Resp B/P (MAP) Pulse Ox O2 O2 Flow FiO2 Time Delivery Rate 10/17/18 98.6 82 19 143/69 96 02:30 (93) 10/16/18 Room Air 15:43 10/14/18 3.0 17:56 Intake and Output 10/16/18 10/16/18 10/17/18 1414:59 22:59 06:59 IntakeIntake Total 560 ml OutputOutput Total 1 ml 500 ml BalanceBalance -1 ml 560 ml -500 ml Exam Constitutional: alert, oriented Psych: no complaints Head: normocephalic Eyes: nl sclera, PERRL ENMT: mucosa pink and moist Respiratory: clear to auscultation Cardiovascular: regular rate and rhythm Gastrointestinal: soft, non-tender Musculoskeletal: muscle weakness Neurological: nl mental status Medications Medications Current Medications Acetaminophen (Tylenol Tab) 325 mg Q4H PRN PO MILD PAIN(1-3)OR ELEVATED TEMP Last administered on 10/01/18 16:14; Admin Dose 325 MG; Start 07/20/18 at 23:00 Allopurinol (Zyloprim) 100 mg DAILY PO Last administered on 10/16/18 08:27; Admin Dose 100 MG; Start 07/21/18 at 09:00 IV Flush (NS 3 ml) 3 ml PER PROTOCOL IV ; Start 07/20/18 at 23:00 Acetaminophen (Tylenol Tab) 650 mg Q6H PRN PO PAIN LEVEL 1-3 OR FEVER Last administered on 10/15/18 05:35; Admin Dose 650 MG; Start 07/20/18 at 23:00 Acetaminophen (Tylenol Supp) 650 mg Q6H PRN PA PAIN LEVEL 1-3 OR FEVER; Start 07/20/18 at 23:00 Bisacodyl (Dulcolax) 5 mg DAILY PRN PO CONSTIPATION Last administered on 10/12/18 03:58; Admin Dose 5 MG; Start 07/20/18 at 23:00 Diagnostic Test (Pha) (Accu-Chek) 1 ea 02 XX Last administered on 10/17/18 02:00; Admin Dose 1 EA; Start 07/21/18 at 02:00 Insulin Aspart (Novolog Insulin Pen) NOVOLOG *MILD* ALGORITHM WITH MEALS BEDTIME SC Last administered on 10/16/18 21:53; Admin Dose 1 UNIT; Start 07/21/18 at 07:50 Ergocalciferol (Drisdol) 50,000 unit Lacy@0900 PO Last administered on 10/16/18 12:38; Admin Dose 50,000 UNIT; Start 07/24/18 at 09:00 Miscellaneous Information 1 ea NOTE XX ; Start 07/20/18 at 23:00 Glucose (Glutose) 15 gm Q15M PRN PO DECREASED GLUCOSE; Start 07/20/18 at 23:00 Glucose (Glutose) 22.5 gm Q15M PRN PO DECREASED GLUCOSE; Start 07/20/18 at 23:00 Dextrose (D50w Syringe) 25 ml Q15M PRN IV DECREASED GLUCOSE; Start 07/20/18 at 23:00 Dextrose (D50w Syringe) 50 ml Q15M PRN IV DECREASED GLUCOSE; Start 07/20/18 at 23:00 Glucagon (Glucagen) 1 mg Q15M PRN IM DECREASED GLUCOSE; Start 07/20/18 at 23:00 Glucose (Glutose) 15 gm Q15M PRN BUCCAL DECREASED GLUCOSE; Start 07/20/18 at 23:00 Melatonin (Melatonin) 3 mg HS PRN PO INSOMNIA Last administered on 10/17/18 02:29; Admin Dose 3 MG; Start 07/20/18 at 23:00 Diclofenac Sodium (Voltaren 1% Gel) 2 gm QID TP Last administered on 10/16/18 08:33; Admin Dose 2 GM; Start 07/22/18 at 13:00 Loratadine (Claritin) 10 mg DAILY PRN PO ALLERGIC REACTION Last administered on 08/07/18 12:48; Admin Dose 10 MG; Start 08/07/18 at 12:30 Hydralazine HCl (Apresoline) 10 mg Q6H PRN PO ELEVATED BLOOD PRESSURE Last administered on 09/14/18 02:44; Admin Dose 10 MG; Start 08/08/18 at 04:30 Hydralazine HCl (Apresoline) 25 mg TID PO Last administered on 10/16/18 12:38; Admin Dose 25 MG; Start 08/08/18 at 13:00 Eye Lubricant (Artificial Tears Oph) 2 drop QID BOTH EYES Last administered on 10/16/18 08:32; Admin Dose 2 DROP; Start 08/09/18 at 11:00 Calcium Carbonate (Tums) 500 mg PRN PRN PO HEARTBURN Last administered on 10/05/18 12:34; Admin Dose 500 MG; Start 08/09/18 at 14:30 Loperamide HCl (Imodium Cap) 2 mg QID PRN PO DIARRHEA Last administered on 10/15/18 17:40; Admin Dose 2 MG; Start 08/21/18 at 16:00 Lactobacillus Acidophilus/ Rhamnosus (Culturelle) 1 cap BID PO Last administered on 10/15/18 20:25; Admin Dose 1 CAP; Start 08/21/18 at 21:00 Nystatin (Nystatin Powder) 1 applic BID TOP Last administered on 10/16/18 08:30; Admin Dose 1 APPLIC; Start 08/28/18 at 21:00 Ondansetron HCl (Zofran Tab) 4 mg Q6H PRN PO NAUSEA AND/OR VOMITING Last administered on 09/10/18at 07:58; Admin Dose 4 MG; Start 09/03/18 at 16:00 Al Hydrox/Mg Hydrox/Simethicone (Mag-Al Plus) 30 ml Q4H PRN PO GASTROINTESTINAL UPSET; Start 09/10/18 at 18:00 Furosemide (Lasix) 40 mg DAILY PO Last administered on 10/16/18 08:28; Admin Dose 40 MG; Start 09/21/18 at 14:30 Carbamide Peroxide (Debrox Otic) 3 drop BID PRN BOTH EARS EAR PAIN Last administered on 10/15/18 20:39; Admin Dose 3 DROP; Start 09/24/18 at 16:00 Ondansetron HCl (Zofran Inj) 4 mg Q6H PRN IV NAUSEA AND/OR VOMITING Last administered on 10/15/18 06:15; Admin Dose 4 MG; Start 09/26/18 at 07:30 Gabapentin (Neurontin) 100 mg BID PRN PO NEUROPATHIC PAIN Last administered on 10/15/18 22:46; Admin Dose 100 MG; Start 09/27/18 at 21:00 Lactobacillus Acidophilus (Florajen3 Capsule) 1 each BID PO Last administered on 10/16/18 08:27; Admin Dose 1 EACH; Start 09/27/18 at 21:00 Psyllium Hydrophilic Mucilloid (Metamucil (Sugar Free)) 1 pkt BID PO Last administered on 10/16/18 08:27; Admin Dose 1 PKT; Start 09/27/18 at 21:00 Pantoprazole (Protonix Tab) 40 mg BID@,18 PO Last administered on 10/16/18 17:49; Admin Dose 40 MG; Start 10/06/18 at 18:00 Lidocaine (Lidocaine 5% Oint) 1 applic TID TOP Last administered on 10/16/18 08:31; Admin Dose 1 APPLIC; Start 10/06/18 at 21:00 Phenyleph/Shark Oil/Min Oil/Petrol (Formulation R Oint) 1 applic PRN PRN PA HEMORROID PAIN/ITCHING Last administered on 10/16/18 08:32; Admin Dose 1 APPLIC; Start 10/08/18 at 02:28 Lactulose (Enulose) 20 gm Q6H PRN PO constipation; Start 10/08/18 at 12:00 Docusate Sodium (Colace) 200 mg HS PO Last administered on 10/16/18 21:41; Admin Dose 200 MG; Start 10/08/18 at 21:00 Tramadol HCl (Ultram) 100 mg Q6H PRN PO PAIN LEVEL 6-10 Last administered on 10/17/18 02:29; Admin Dose 100 MG; Start 10/09/18 at 18:30 Polyethylene Glycol (Miralax) 17 gm BID NGT Last administered on 10/16/18 08:32; Admin Dose 17 GM; Start 10/10/18 at 09:00 Albumin Human 250 ml @ 250 mls/hr WITH DIALYSIS PRN IV SBP<90; Start 10/11/18 at 12:30 Sodium Chloride (NS) -To prime the dialy... DIRECTED FOR HD PRN IV SBP<90; Start 10/11/18 at 12:30 Lubiprostone (Amitiza) 24 mcg BID PO Last administered on 10/16/18 21:41; Admin Dose 24 MCG; Start 10/12/18 at 10:30 Heparin Sodium (Porcine) (Heparin (1000 Units/ml)) 4,700 unit AFTER DIALYSIS CATHETER Last administered on 10/12/18 23:36; Admin Dose 4,700 UNIT; Start 10/12/18 at 22:30 Heparin Sodium (Porcine) (Heparin (5000 Units/1ml)) 5,000 unit BID SC Last administered on 10/16/18 21:52; Admin Dose 5,000 UNIT; Start 10/15/18 at 13:30 CHARLIE STRAUSS Oct 17, 2018 06:56
[2018-10-17] MEDS: INSULIN ASPART [NOVOLOG] 3 ML PEN SC SCH ×4 (08:41→21:00)
[2018-10-17] MEDS: HEPARIN 5,000 UNIT/1 ML VIAL SC SCH ×2 (08:41→21:11)
[2018-10-17] MEDS: LACTOBACILLUS RHAMNOSUS CAP PO SCH ×2 (09:00→21:00)
[2018-10-17] MEDS: DICLOFENAC SODIUM 1% GEL 100 GM TUBE TP SCH ×4 (09:00→21:00)
[2018-10-17] MEDS: POLYETHYLENE GLYCOL 17 GM PACKET NGT SCH ×2 (09:00→21:00)
[2018-10-17] MEDS: BALSAM PERU/CASTOR OIL 60 GM TUBE TOP SCH ×2 (09:00→21:00)
[2018-10-17] MEDS: ARTIFICIAL TEARS 15 ML OPH BOTH EYES SCH ×4 (09:00→21:00)
[2018-10-17] MEDS: LIDOCAINE 5% 35 GM OINT TOP SCH ×3 (09:00→21:00)
[2018-10-17] MEDS: NYSTATIN 30 GM POWDER BTL TOP SCH ×2 (09:00→21:00)
[2018-10-17] MEDS: L ACIDOPHIL/B LACTIS/B LONGUM CAPSULE PO SCH ×2 (09:00→21:00)
[2018-10-17] MEDS: PSYLLIUM (SUGAR FREE) PACKET PO SCH ×2 (09:00→21:00)
[2018-10-17] MEDS: FUROSEMIDE 40 MG TAB PO SCH (09:11)
[2018-10-17] MEDS: ALLOPURINOL 100 MG TAB PO SCH (09:11)
[2018-10-17] MEDS: LUBIPROSTONE 24 MCG CAP PO SCH ×2 (09:12→21:08)
[2018-10-17 09:14] VITALS: BP 127/72; PULSE 84; RESP 18
--- NOTE | 2018-10-17 11:54 | PN ---
Date/Time of Note Date/Time of Note DATE: 10/17/18 TIME: 11:52 Assessment/Plan VTE Prophylaxis Risk score (from Nsg)>0 risk: 8 SCD applied (from Ns): Yes Pharmacological prophylaxis: NA/contraindicated, heparin Pharm contraindication: other Lines/Catheters IV Catheter Type (from Nrsg): Saline Lock Urinary Cath still in place: No (PT. REFUSED TO HAVE MCMULLEN EVEN FOR 24 HRS.) Assessment/Plan Hospital Course 58 y/o with 1. . ckd iii-iv now with the complications of hyperkalemia, patient has been refusing Kayexalate V[place] has also been refusing dialysis, patient was explained the risks and consequences and patient completely understands the risks and consequences, now agreed, on and off Hd once a week 2. c diff hx 3. Chronic kidney disease, 4. Morbid obesity. 5. Diabetes. 6. Hypertension, 7. Gout.hx 8. Neuropathy. 9. History of congestive heart failure. 10 weakness 11 deconditioning 13 Left shoulde pain, TTP ? Frozen shoulder , shoulder impingement 14 s/p Fall ? AMS confusion likley due to UTI 15 uti klebsiella and enterococcus 16 diarrhea 15 vomtiing/? contipation> refuse labs again 16 Dizziness> chronic ? Postural 17 UTI 18 rectal pain with fissure Plan - WILL also get 24 hr urine studies for Cr Clearence after HD - PPI BID -stool softners - Lactobacillus - Physical therapy - low k diet, cw lasix -tyenolol on as needed headache - HD prn arrange for SNIF with HD placement,pt already discharged, Spoke to CM , still no placement Result Diagram: 10/14/18 1100 10/14/18 1100 Results 24hrs Laboratory Tests Test 10/16/18 12:42 10/16/18 17:36 10/16/18 21:37 10/17/18 01:42 Bedside Glucose 165 188 213 167 Test 10/17/18 08:36 Bedside Glucose 184 Subjective 24 Hr Interval Summary Free Text/Dictation Abdominal pain is improved Patient will give urine for 24-hour clearance Exam/Review of Systems Vital Signs Vitals Vital Signs Date Temp Pulse Resp B/P (MAP) Pulse Ox O2 O2 Flow FiO2 Time Delivery Rate 10/17/18 98.1 84 18 127/72 91 Room Air 09:14 (90) 1/11/19 3.0 17:56 Intake and Output 10/16/18 10/16/18 10/17/18 1515:00 23:00 07:00 IntakeIntake Total 560 ml OutputOutput Total 1 ml 500 ml BalanceBalance -1 ml 560 ml -500 ml Exam Respiratory: clear to auscultation Cardiovascular: regular rate and rhythm Gastrointestinal: soft Musculoskeletal: nl extremities to inspection Extremities: normal pulses permcath Medications Medications Current Medications Acetaminophen (Tylenol Tab) 325 mg Q4H PRN PO MILD PAIN(1-3)OR ELEVATED TEMP Last administered on 10/01/18 16:14; Admin Dose 325 MG; Start 07/20/18 at 23:00 Allopurinol (Zyloprim) 100 mg DAILY PO Last administered on 10/17/18 09:11; Admin Dose 100 MG; Start 07/21/18 at 09:00 IV Flush (NS 3 ml) 3 ml PER PROTOCOL IV ; Start 07/20/18 at 23:00 Acetaminophen (Tylenol Tab) 650 mg Q6H PRN PO PAIN LEVEL 1-3 OR FEVER Last administered on 10/15/18 05:35; Admin Dose 650 MG; Start 07/20/18 at 23:00 Acetaminophen (Tylenol Supp) 650 mg Q6H PRN AL PAIN LEVEL 1-3 OR FEVER; Start 07/20/18 at 23:00 Bisacodyl (Dulcolax) 5 mg DAILY PRN PO CONSTIPATION Last administered on 10/12/18 03:58; Admin Dose 5 MG; Start 07/20/18 at 23:00 Diagnostic Test (Pha) (Accu-Chek) 1 ea 02 XX Last administered on 10/17/18 02:00; Admin Dose 1 EA; Start 07/21/18 at 02:00 Insulin Aspart (Novolog Insulin Pen) NOVOLOG *MILD* ALGORITHM WITH MEALS BEDTIME SC Last administered on 10/17/18 08:41; Admin Dose 2 UNIT; Start 07/21/18 at 07:50 Ergocalciferol (Drisdol) 50,000 unit Lacy@0900 PO Last administered on 10/16/18 12:38; Admin Dose 50,000 UNIT; Start 07/24/18 at 09:00 Miscellaneous Information 1 ea NOTE XX ; Start 07/20/18 at 23:00 Glucose (Glutose) 15 gm Q15M PRN PO DECREASED GLUCOSE; Start 07/20/18 at 23:00 Glucose (Glutose) 22.5 gm Q15M PRN PO DECREASED GLUCOSE; Start 07/20/18 at 23:00 Dextrose (D50w Syringe) 25 ml Q15M PRN IV DECREASED GLUCOSE; Start 07/20/18 at 23:00 Dextrose (D50w Syringe) 50 ml Q15M PRN IV DECREASED GLUCOSE; Start 07/20/18 at 23:00 Glucagon (Glucagen) 1 mg Q15M PRN IM DECREASED GLUCOSE; Start 07/20/18 at 23:00 Glucose (Glutose) 15 gm Q15M PRN BUCCAL DECREASED GLUCOSE; Start 07/20/18 at 23:00 Melatonin (Melatonin) 3 mg HS PRN PO INSOMNIA Last administered on 10/17/18 02:29; Admin Dose 3 MG; Start 07/20/18 at 23:00 Diclofenac Sodium (Voltaren 1% Gel) 2 gm QID TP Last administered on 10/16/18 08:33; Admin Dose 2 GM; Start 07/22/18 at 13:00 Loratadine (Claritin) 10 mg DAILY PRN PO ALLERGIC REACTION Last administered on 08/07/18 12:48; Admin Dose 10 MG; Start 08/07/18 at 12:30 Hydralazine HCl (Apresoline) 10 mg Q6H PRN PO ELEVATED BLOOD PRESSURE Last administered on 09/14/18 02:44; Admin Dose 10 MG; Start 08/08/18 at 04:30 Hydralazine HCl (Apresoline) 25 mg TID PO Last administered on 10/17/18 09:11; Admin Dose 25 MG; Start 08/08/18 at 13:00 Eye Lubricant (Artificial Tears Oph) 2 drop QID BOTH EYES Last administered on 10/16/18 08:32; Admin Dose 2 DROP; Start 08/09/18 at 11:00 Calcium Carbonate (Tums) 500 mg PRN PRN PO HEARTBURN Last administered on 10/05/18 12:34; Admin Dose 500 MG; Start 08/09/18 at 14:30 Loperamide HCl (Imodium Cap) 2 mg QID PRN PO DIARRHEA Last administered on 10/15/18 17:40; Admin Dose 2 MG; Start 08/21/18 at 16:00 Lactobacillus Acidophilus/ Rhamnosus (Culturelle) 1 cap BID PO Last administered on 10/15/18 20:25; Admin Dose 1 CAP; Start 08/21/18 at 21:00 Nystatin (Nystatin Powder) 1 applic BID TOP Last administered on 10/16/18 08:30; Admin Dose 1 APPLIC; Start 08/28/18 at 21:00 Ondansetron HCl (Zofran Tab) 4 mg Q6H PRN PO NAUSEA AND/OR VOMITING Last administered on 09/10/18at 07:58; Admin Dose 4 MG; Start 09/03/18 at 16:00 Al Hydrox/Mg Hydrox/Simethicone (Mag-Al Plus) 30 ml Q4H PRN PO GASTROINTESTINAL UPSET; Start 09/10/18 at 18:00 Furosemide (Lasix) 40 mg DAILY PO Last administered on 10/17/18 09:11; Admin Dose 40 MG; Start 09/21/18 at 14:30 Carbamide Peroxide (Debrox Otic) 3 drop BID PRN BOTH EARS EAR PAIN Last admini stered on 10/15/18 20:39; Admin Dose 3 DROP; Start 09/24/18 at 16:00 Ondansetron HCl (Zofran Inj) 4 mg Q6H PRN IV NAUSEA AND/OR VOMITING Last administered on 10/15/18 06:15; Admin Dose 4 MG; Start 09/26/18 at 07:30 Gabapentin (Neurontin) 100 mg BID PRN PO NEUROPATHIC PAIN Last administered on 10/15/18 22:46; Admin Dose 100 MG; Start 09/27/18 at 21:00 Lactobacillus Acidophilus (Florajen3 Capsule) 1 each BID PO Last administered on 10/16/18 08:27; Admin Dose 1 EACH; Start 09/27/18 at 21:00 Psyllium Hydrophilic Mucilloid (Metamucil (Sugar Free)) 1 pkt BID PO Last administered on 10/16/18 08:27; Admin Dose 1 PKT; Start 09/27/18 at 21:00 Pantoprazole (Protonix Tab) 40 mg BID@,18 PO Last administered on 10/16/18 17:49; Admin Dose 40 MG; Start 10/06/18 at 18:00 Lidocaine (Lidocaine 5% Oint) 1 applic TID TOP Last administered on 10/16/18 08:31; Admin Dose 1 APPLIC; Start 10/06/18 at 21:00 Phenyleph/Shark Oil/Min Oil/Petrol (Formulation R Oint) 1 applic PRN PRN AL HEMORROID PAIN/ITCHING Last administered on 10/16/18 08:32; Admin Dose 1 APPLIC; Start 10/08/18 at 02:28 Lactulose (Enulose) 20 gm Q6H PRN PO constipation; Start 10/08/18 at 12:00 Docusate Sodium (Colace) 200 mg HS PO Last administered on 10/16/18 21:41; Admin Dose 200 MG; Start 10/08/18 at 21:00 Tramadol HCl (Ultram) 100 mg Q6H PRN PO PAIN LEVEL 6-10 Last administered on 10/17/18 02:29; Admin Dose 100 MG; Start 10/09/18 at 18:30 Polyethylene Glycol (Miralax) 17 gm BID NGT Last administered on 10/16/18 08:32; Admin Dose 17 GM; Start 10/10/18 at 09:00 Albumin Human 250 ml @ 250 mls/hr WITH DIALYSIS PRN IV SBP<90; Start 10/11/18 at 12:30 Sodium Chloride (NS) -To prime the dialy... DIRECTED FOR HD PRN IV SBP<90; Start 10/11/18 at 12:30 Lubiprostone (Amitiza) 24 mcg BID PO Last administered on 10/17/18 09:12; Admin Dose 24 MCG; Start 10/12/18 at 10:30 Heparin Sodium (Porcine) (Heparin (1000 Units/ml)) 4,700 unit AFTER DIALYSIS CATHETER Last administered on 10/12/18 23:36; Admin Dose 4,700 UNIT; Start 10/12/18 at 22:30 Heparin Sodium (Porcine) (Heparin (5000 Units/1ml)) 5,000 unit BID SC Last administered on 10/17/18 08:41; Admin Dose 5,000 UNIT; Start 10/15/18 at 13:30 KOFI SWANN MD Oct 17, 2018 11:54
[2018-10-17 14:29] VITALS: BP 142/67; PULSE 80; RESP 18
[2018-10-17 20:17] VITALS: BP 131/85; PULSE 85; RESP 16
[2018-10-17] MEDS: GABAPENTIN 100 MG CAP PO PRN (21:08)
[2018-10-17] MEDS: DOCUSATE SODIUM 100 MG CAP PO SCH (21:08)
[2018-10-18] MEDS: ACCU-CHEK XX SCH (01:28)
[2018-10-18] MEDS: MELATONIN 3 MG TABLET PO PRN (01:50)
[2018-10-18] MEDS: ACETAMINOPHEN 325 MG TAB PO PRN ×2 (01:51→09:27)
[2018-10-18 01:53] VITALS: BP 145/82; PULSE 67; RESP 19
[2018-10-18] MEDS: PANTOPRAZOLE (EC) 40 MG TAB PO SCH ×2 (06:00→18:00)
--- NOTE | 2018-10-18 07:11 | PN ---
Date/Time of Note Date/Time of Note DATE: 10/18/18 TIME: 07:06 Assessment/Plan VTE Prophylaxis Risk score (from Ns)>0 risk: 6 SCD applied (from Ns): No SCD contraindicated: patient refusal Pharmacological prophylaxis: heparin Lines/Catheters IV Catheter Type (from Nrs): Saline Lock Urinary Cath still in place: No (PT. REFUSED TO HAVE MCMULLEN EVEN FOR 24 HRS.) Assessment/Plan Hospital Course 58 yo female presents for whole body pain for which we were consulted for rectal pain 1. Rectal pain secondary to anal fissure -improved 2. Anal fissure 3. Constipation, chronic 4. GERD 5. CKD 3, now on HD, refusing HD 6. Morbid obesity with deconditioning 7. Diabetes mellitus 8. H/O CHF 9. Mild acute anemia likely due to chronic diseae -anemia work up 10. Abdominal bloating after eating per pt with nausea and vomiting -improved 11. Elevated alk phos Plan Continue PT Continue with bowel regimen PPI BID Sitz bath BID Amitiza 24 mcg BID US of upper abd, monitor LFTs Pt examined and plan of care discussed with Dr. Alvarado Result Diagram: 10/14/18 1100 10/17/18 2224 Results 24hrs Laboratory Tests Test 10/17/18 08:36 10/17/18 12:09 10/17/18 21:16 10/17/18 22:24 Bedside Glucose 184 118 184 Sodium Level 137 Potassium Level 5.1 Chloride Level 103 Carbon Dioxide Level 28 Anion Gap 6 Blood Urea Nitrogen 42 H Creatinine 3.35 H Est Glomerular 14 L Filtrat Rate mL/min Glucose Level 199 Calcium Level 8.7 Total Bilirubin 0.0 L Direct Bilirubin 0.00 Indirect Bilirubin 0.0 Aspartate Amino 26 Transf (AST/SGOT) Alanine 11 L Aminotransferase (AL T/SGPT) Alkaline Phosphatase 126 H Total Protein 7.1 Albumin 3.3 Globulin 3.80 H Albumin/Globulin 0.86 Ratio Subjective 24 Hr Interval Summary Free Text/Dictation C/O LUE pain. No nausea/vomiting or abdominal pain. She is asking for pain medication which RN said she just refused. Exam/Review of Systems Vital Signs Vitals Vital Signs Date Temp Pulse Resp B/P (MAP) Pulse Ox O2 O2 Flow FiO2 Time Delivery Rate 10/18/18 98.2 67 19 145/82 91 High Flow 01:53 (103) 10/14/18 3.0 17:56 Intake and Output 10/17/18 10/17/18 10/18/18 1414:59 22:59 06:59 IntakeIntake Total 200 ml 720 ml BalanceBalance 200 ml 720 ml Exam Constitutional: alert, oriented Psych: no complaints Head: normocephalic Eyes: nl sclera, PERRL Respiratory: diminished breath sounds Cardiovascular: regular rate and rhythm Gastrointestinal: soft, non-tender, other (obesity) Musculoskeletal: muscle weakness Neurological: nl mental status Medications Medications Current Medications Acetaminophen (Tylenol Tab) 325 mg Q4H PRN PO MILD PAIN(1-3)OR ELEVATED TEMP Last administered on 10/01/18 16:14; Admin Dose 325 MG; Start 07/20/18 at 23:00 Allopurinol (Zyloprim) 100 mg DAILY PO Last administered on 10/17/18 09:11; A dmin Dose 100 MG; Start 07/21/18 at 09:00 IV Flush (NS 3 ml) 3 ml PER PROTOCOL IV ; Start 07/20/18 at 23:00 Acetaminophen (Tylenol Tab) 650 mg Q6H PRN PO PAIN LEVEL 1-3 OR FEVER Last administered on 10/18/18 01:51; Admin Dose 650 MG; Start 07/20/18 at 23:00 Acetaminophen (Tylenol Supp) 650 mg Q6H PRN [place] PAIN LEVEL 1-3 OR FEVER; Start 07/20/18 at 23:00 Bisacodyl (Dulcolax) 5 mg DAILY PRN PO CONSTIPATION Last administered on 10/12/18 03:58; Admin Dose 5 MG; Start 07/20/18 at 23:00 Diagnostic Test (Pha) (Accu-Chek) 1 ea 02 XX Last administered on 10/17/18 02:00; Admin Dose 1 EA; Start 07/21/18 at 02:00 Insulin Aspart (Novolog Insulin Pen) NOVOLOG *MILD* ALGORITHM WITH MEALS BEDTIME SC Last administered on 10/17/18 08:41; Admin Dose 2 UNIT; Start 07/21/18 at 07:50 Ergocalciferol (Drisdol) 50,000 unit Lacy@0900 PO Last administered on 10/16/18 12:38; Admin Dose 50,000 UNIT; Start 07/24/18 at 09:00 Miscellaneous Information 1 ea NOTE XX ; Start 07/20/18 at 23:00 Glucose (Glutose) 15 gm Q15M PRN PO DECREASED GLUCOSE; Start 07/20/18 at 23:00 Glucose (Glutose) 22.5 gm Q15M PRN PO DECREASED GLUCOSE; Start 07/20/18 at 23:00 Dextrose (D50w Syringe) 25 ml Q15M PRN IV DECREASED GLUCOSE; Start 07/20/18 at 23:00 Dextrose (D50w Syringe) 50 ml Q15M PRN IV DECREASED GLUCOSE; Start 07/20/18 at 23:00 Glucagon (Glucagen) 1 mg Q15M PRN IM DECREASED GLUCOSE; Start 07/20/18 at 23:00 Glucose (Glutose) 15 gm Q15M PRN BUCCAL DECREASED GLUCOSE; Start 07/20/18 at 23:00 Melatonin (Melatonin) 3 mg HS PRN PO INSOMNIA Last administered on 10/18/18 01:50; Admin Dose 3 MG; Start 07/20/18 at 23:00 Diclofenac Sodium (Voltaren 1% Gel) 2 gm QID TP Last administered on 10/16/18 08:33; Admin Dose 2 GM; Start 07/22/18 at 13:00 Loratadine (Claritin) 10 mg DAILY PRN PO ALLERGIC REACTION Last administered on 08/07/18at 12:48; Admin Dose 10 MG; Start 08/07/18 at 12:30 Hydralazine HCl (Apresoline) 10 mg Q6H PRN PO ELEVATED BLOOD PRESSURE Last administered on 09/14/18 02:44; Admin Dose 10 MG; Start 08/08/18 at 04:30 Hydralazine HCl (Apresoline) 25 mg TID PO Last administered on 10/17/18 21:10; Admin Dose 25 MG; Start 08/08/18 at 13:00 Eye Lubricant (Artificial Tears Oph) 2 drop QID BOTH EYES Last administered on 10/16/18 08:32; Admin Dose 2 DROP; Start 08/09/18 at 11:00 Calcium Carbonate (Tums) 500 mg PRN PRN PO HEARTBURN Last administered on 10/05/18 12:34; Admin Dose 500 MG; Start 08/09/18 at 14:30 Loperamide HCl (Imodium Cap) 2 mg QID PRN PO DIARRHEA Last administered on 10/15/18 17:40; Admin Dose 2 MG; Start 08/21/18 at 16:00 Lactobacillus Acidophilus/ Rhamnosus (Culturelle) 1 cap BID PO Last administered on 10/15/18 20:25; Admin Dose 1 CAP; Start 08/21/18 at 21:00 Nystatin (Nystatin Powder) 1 applic BID TOP Last administered on 10/16/18 08:30; Admin Dose 1 APPLIC; Start 08/28/18 at 21:00 Ondansetron HCl (Zofran Tab) 4 mg Q6H PRN PO NAUSEA AND/OR VOMITING Last administered on 09/10/18 07:58; Admin Dose 4 MG; Start 09/03/18 at 16:00 Al Hydrox/Mg Hydrox/Simethicone (Mag-Al Plus) 30 ml Q4H PRN PO GASTROINTESTINAL UPSET; Start 09/10/18 at 18:00 Furosemide (Lasix) 40 mg DAILY PO Last administered on 10/17/18 09:11; Admin Dose 40 MG; Start 09/21/18 at 14:30 Carbamide Peroxide (Debrox Otic) 3 drop BID PRN BOTH EARS EAR PAIN Last adm inistered on 10/15/18 20:39; Admin Dose 3 DROP; Start 09/24/18 at 16:00 Ondansetron HCl (Zofran Inj) 4 mg Q6H PRN IV NAUSEA AND/OR VOMITING Last administered on 10/15/18 06:15; Admin Dose 4 MG; Start 09/26/18 at 07:30 Gabapentin (Neurontin) 100 mg BID PRN PO NEUROPATHIC PAIN Last administered on 10/17/18 21:08; Admin Dose 100 MG; Start 09/27/18 at 21:00 Lactobacillus Acidophilus (Florajen3 Capsule) 1 each BID PO Last administered on 10/16/18 08:27; Admin Dose 1 EACH; Start 09/27/18 at 21:00 Psyllium Hydrophilic Mucilloid (Metamucil (Sugar Free)) 1 pkt BID PO Last administered on 10/16/18 08:27; Admin Dose 1 PKT; Start 09/27/18 at 21:00 Pantoprazole (Protonix Tab) 40 mg BID@18 PO Last administered on 1/13/19at 17:49; Admin Dose 40 MG; Start 10/06/18 at 18:00 Lidocaine (Lidocaine 5% Oint) 1 applic TID TOP Last administered on 10/16/18 08:31; Admin Dose 1 APPLIC; Start 10/06/18 at 21:00 Phenyleph/Shark Oil/Min Oil/Petrol (Formulation R Oint) 1 applic PRN PRN [place] HEMORROID PAIN/ITCHING Last administered on 10/16/18 08:32; Admin Dose 1 APPLIC; Start 10/08/18 at 02:28 Lactulose (Enulose) 20 gm Q6H PRN PO constipation; Start 10/08/18 at 12:00 Docusate Sodium (Colace) 200 mg HS PO Last administered on 10/17/18 21:08; Admin Dose 200 MG; Start 10/08/18 at 21:00 Tramadol HCl (Ultram) 100 mg Q6H PRN PO PAIN LEVEL 6-10 Last administered on 10/17/18 21:12; Admin Dose 100 MG; Start 10/09/18 at 18:30 Polyethylene Glycol (Miralax) 17 gm BID NGT Last administered on 10/16/18 08:32; Admin Dose 17 GM; Start 10/10/18 at 09:00 Albumin Human 250 ml @ 250 mls/hr WITH DIALYSIS PRN IV SBP<90; Start 10/11/18 at 12:30 Sodium Chloride (NS) -To prime the dialy... DIRECTED FOR HD PRN IV SBP<90; Start 10/11/18 at 12:30 Lubiprostone (Amitiza) 24 mcg BID PO Last administered on 10/17/18 21:08; Admin Dose 24 MCG; Start 10/12/18 at 10:30 Heparin Sodium (Porcine) (Heparin (1000 Units/ml)) 4,700 unit AFTER DIALYSIS CATHETER Last administered on 10/12/18 23:36; Admin Dose 4,700 UNIT; Start 10/12/18 at 22:30 Heparin Sodium (Porcine) (Heparin (5000 Units/1ml)) 5,000 unit BID SC Last administered on 10/17/18 21:11; Admin Dose 5,000 UNIT; Start 10/15/18 at 13:30 CHARLIE STRAUSS Oct 18, 2018 07:11
[2018-10-18] MEDS: traMADol 50 MG TAB PO PRN ×3 (07:13→20:18)
[2018-10-18 08:00] VITALS: BP 172/90; PULSE 82; RESP 18
[2018-10-18] MEDS: INSULIN ASPART [NOVOLOG] 3 ML PEN SC SCH ×4 (08:50→23:22)
[2018-10-18] MEDS: L ACIDOPHIL/B LACTIS/B LONGUM CAPSULE PO SCH ×2 (09:00→21:00)
[2018-10-18] MEDS: PSYLLIUM (SUGAR FREE) PACKET PO SCH ×2 (09:00→21:00)
[2018-10-18] MEDS: POLYETHYLENE GLYCOL 17 GM PACKET NGT SCH ×2 (09:00→21:00)
[2018-10-18] MEDS: LACTOBACILLUS RHAMNOSUS CAP PO SCH ×2 (09:00→21:00)
[2018-10-18] MEDS: GABAPENTIN 100 MG CAP PO PRN (09:26)
[2018-10-18] MEDS: ALLOPURINOL 100 MG TAB PO SCH (09:27)
[2018-10-18] MEDS: LUBIPROSTONE 24 MCG CAP PO SCH ×2 (09:27→20:17)
[2018-10-18] MEDS: ARTIFICIAL TEARS 15 ML OPH BOTH EYES SCH ×4 (09:28→21:00)
[2018-10-18] MEDS: DICLOFENAC SODIUM 1% GEL 100 GM TUBE TP SCH ×4 (09:28→21:00)
[2018-10-18] MEDS: FUROSEMIDE 40 MG TAB PO SCH (09:28)
[2018-10-18] MEDS: BALSAM PERU/CASTOR OIL 60 GM TUBE TOP SCH ×2 (09:28→21:00)
[2018-10-18] MEDS: NYSTATIN 30 GM POWDER BTL TOP SCH ×2 (09:28→21:00)
[2018-10-18] MEDS: LIDOCAINE 5% 35 GM OINT TOP SCH ×3 (09:29→21:00)
[2018-10-18] MEDS: HEPARIN 5,000 UNIT/1 ML VIAL SC SCH ×2 (09:30→20:19)
[2018-10-18 13:00] VITALS: BP 110/54; PULSE 80; RESP 18
--- NOTE | 2018-10-18 13:15 | PN ---
Date/Time of Note Date/Time of Note DATE: 10/18/18 TIME: 13:15 Assessment/Plan VTE Prophylaxis Risk score (from Ns)>0 risk: 3 SCD applied (from Ns): No SCD contraindicated: low risk/ambulating Pharmacological prophylaxis: NA/contraindicated Pharm contraindication: low risk/ambulating Lines/Catheters IV Catheter Type (from Nrs): Saline Lock Urinary Cath still in place: No (PT. REFUSED TO HAVE MCMULLEN EVEN FOR 24 HRS.) Assessment/Plan Hospital Course 58 y/o with 1. . ckd iii-iv now with the complications of hyperkalemia, patient has been refusing Kayexalate Veltaastrida has also been refusing dialysis, patient was explained the risks and consequences and patient completely understands the risks and consequences, now agreed, on and off Hd once a week 2. c diff hx 3. Chronic kidney disease, 4. Morbid obesity. 5. Diabetes. 6. Hypertension, 7. Gout.hx 8. Neuropathy. 9. History of congestive heart failure. 10 weakness 11 deconditioning 13 Left shoulde pain, TTP ? Frozen shoulder , shoulder impingement 14 s/p Fall ? AMS confusion likley due to UTI 15 uti klebsiella and enterococcus 16 diarrhea 15 vomtiing/? contipation> refuse labs again 16 Dizziness> chronic ? Postural 17 UTI 18 rectal pain with fissure Plan - WILL also get 24 hr urine studies for Cr Clearence after HD, pt refuing collection, is not using bed monterroso/ mcmullen , wants to use daipers - pt non coperative - calorie count - PPI BID -stool softners - Lactobacillus - Physical therapy - low k diet, cw lasix -tyenolol on as needed headache - HD once a week arrange for SNIF with HD placement,pt already discharged, Spoke to , still no placement Result Diagram: 10/14/18 1100 10/17/18 2224 Results 24hrs Laboratory Tests Test 10/17/18 21:16 10/17/18 22:24 10/18/18 08:58 10/18/18 13:03 Bedside Glucose 184 115 209 Sodium Level 137 Potassium Level 5.1 Chloride Level 103 Carbon Dioxide Level 28 Anion Gap 6 Blood Urea Nitrogen 42 H Creatinine 3.35 H Est Glomerular 14 L Filtrat Rate mL/min Glucose Level 199 Calcium Level 8.7 Total Bilirubin 0.0 L Direct Bilirubin 0.00 Indirect Bilirubin 0.0 Aspartate Amino 26 Transf (AST/SGOT) Alanine 11 L Aminotransferase (AL T/SGPT) Alkaline Phosphatase 126 H Total Protein 7.1 Albumin 3.3 Globulin 3.80 H Albumin/Globulin 0.86 Ratio Subjective 24 Hr Interval Summary Free Text/Dictation pt is non coperative in 24 hr collection of urine not using bed monterroso" says its a bad day" too much commotion not want mcmullen told her cant determine 24 hr urine cr clearence studies Exam/Review of Systems Vital Signs Vitals Vital Signs Date Temp Pulse Resp B/P (MAP) Pulse Ox O2 O2 Flow FiO2 Time Delivery Rate 10/18/18 98.2 67 19 145/82 91 High Flow 01:53 (103) 10/14/18 3.0 17:56 Intake and Output 10/17/18 10/17/18 10/18/18 1515:00 23:00 07:00 IntakeIntake Total 200 ml 720 ml BalanceBalance 200 ml 720 ml Exam Respiratory: clear to auscultation Cardiovascular: regular rate and rhythm Gastrointestinal: soft Musculoskeletal: nl extremities to inspection Extremities: normal pulses permcath Medications Medications Current Medications Acetaminophen (Tylenol Tab) 325 mg Q4H PRN PO MILD PAIN(1-3)OR ELEVATED TEMP Last administered on 10/18/18 09:27; Admin Dose 325 MG; Start 07/20/18 at 23:00 Allopurinol (Zyloprim) 100 mg DAILY PO Last administered on 10/18/18 09:27; Admin Dose 100 MG; Start 07/21/18 at 09:00 IV Flush (NS 3 ml) 3 ml PER PROTOCOL IV ; Start 07/20/18 at 23:00 Acetaminophen (Tylenol Tab) 650 mg Q6H PRN PO PAIN LEVEL 1-3 OR FEVER Last administered on 10/18/18 01:51; Admin Dose 650 MG; Start 07/20/18 at 23:00 Acetaminophen (Tylenol Supp) 650 mg Q6H PRN [place] PAIN LEVEL 1-3 OR FEVER; Start 07/20/18 at 23:00 Bisacodyl (Dulcolax) 5 mg DAILY PRN PO CONSTIPATION Last administered on 10/12/18 03:58; Admin Dose 5 MG; Start 07/20/18 at 23:00 Diagnostic Test (Pha) (Accu-Chek) 1 ea 02 XX Last administered on 10/17/18 02:00; Admin Dose 1 EA; Start 07/21/18 at 02:00 Insulin Aspart (Novolog Insulin Pen) NOVOLOG *MILD* ALGORITHM WITH MEALS BE DTIME SC Last administered on 10/18/18 13:12; Admin Dose 2 UNIT; Start 07/21/18 at 07:50 Ergocalciferol (Drisdol) 50,000 unit Lacy@0900 PO Last administered on 10/16/18 12:38; Admin Dose 50,000 UNIT; Start 07/24/18 at 09:00 Miscellaneous Information 1 ea NOTE XX ; Start 07/20/18 at 23:00 Glucose (Glutose) 15 gm Q15M PRN PO DECREASED GLUCOSE; Start 07/20/18 at 23:00 Glucose (Glutose) 22.5 gm Q15M PRN PO DECREASED GLUCOSE; Start 07/20/18 at 23:00 Dextrose (D50w Syringe) 25 ml Q15M PRN IV DECREASED GLUCOSE; Start 07/20/18 at 23:00 Dextrose (D50w Syringe) 50 ml Q15M PRN IV DECREASED GLUCOSE; Start 07/20/18 at 23:00 Glucagon (Glucagen) 1 mg Q15M PRN IM DECREASED GLUCOSE; Start 07/20/18 at 23:00 Glucose (Glutose) 15 gm Q15M PRN BUCCAL DECREASED GLUCOSE; Start 07/20/18 at 23:00 Melatonin (Melatonin) 3 mg HS PRN PO INSOMNIA Last administered on 10/18/18 01:50; Admin Dose 3 MG; Start 07/20/18 at 23:00 Diclofenac Sodium (Voltaren 1% Gel) 2 gm QID TP Last administered on 10/18/18 13:06; Admin Dose 2 GM; Start 07/22/18 at 13:00 Loratadine (Claritin) 10 mg DAILY PRN PO ALLERGIC REACTION Last administered on 08/07/18at 12:48; Admin Dose 10 MG; Start 08/07/18 at 12:30 Hydralazine HCl (Apresoline) 10 mg Q6H PRN PO ELEVATED BLOOD PRESSURE Last administered on 09/14/18at 02:44; Admin Dose 10 MG; Start 08/08/18 at 04:30 Hydralazine HCl (Apresoline) 25 mg TID PO Last administered on 10/18/18 13:10; Admin Dose 25 MG; Start 08/08/18 at 13:00 Eye Lubricant (Artificial Tears Oph) 2 drop QID BOTH EYES Last administered on 10/18/18 13:05; Admin Dose 2 DROP; Start 08/09/18 at 11:00 Calcium Carbonate (Tums) 500 mg PRN PRN PO HEARTBURN Last administered on 10/05/18 12:34; Admin Dose 500 MG; Start 08/09/18 at 14:30 Loperamide HCl (Imodium Cap) 2 mg QID PRN PO DIARRHEA Last administered on 10/15/18 17:40; Admin Dose 2 MG; Start 08/21/18 at 16:00 Lactobacillus Acidophilus/ Rhamnosus (Culturelle) 1 cap BID PO Last administered on 10/15/18 20:25; Admin Dose 1 CAP; Start 08/21/18 at 21:00 Nystatin (Nystatin Powder) 1 applic BID TOP Last administered on 10/18/18 09:28; Admin Dose 1 APPLIC; Start 08/28/18 at 21:00 Ondansetron HCl (Zofran Tab) 4 mg Q6H PRN PO NAUSEA AND/OR VOMITING Last administered on 09/10/18 07:58; Admin Dose 4 MG; Start 09/03/18 at 16:00 Al Hydrox/Mg Hydrox/Simethicone (Mag-Al Plus) 30 ml Q4H PRN PO GASTROINTESTINAL UPSET; Start 09/10/18 at 18:00 Furosemide (Lasix) 40 mg DAILY PO Last administered on 10/18/18 09:28; Admin Dose 40 MG; Start 09/21/18 at 14:30 Carbamide Peroxide (Debrox Otic) 3 drop BID PRN BOTH EARS EAR PAIN Last administered on 10/15/18 20:39; Admin Dose 3 DROP; Start 09/24/18 at 16:00 Ondansetron HCl (Zofran Inj) 4 mg Q6H PRN IV NAUSEA AND/OR VOMITING Last administered on 10/15/18 06:15; Admin Dose 4 MG; Start 09/26/18 at 07:30 Gabapentin (Neurontin) 100 mg BID PRN PO NEUROPATHIC PAIN Last administered on 10/18/18 09:26; Admin Dose 100 MG; Start 09/27/18 at 21:00 Lactobacillus Acidophilus (Florajen3 Capsule) 1 each BID PO Last administered on 10/16/18 08:27; Admin Dose 1 EACH; Start 09/27/18 at 21:00 Psyllium Hydrophilic Mucilloid (Metamucil (Sugar Free)) 1 pkt BID PO Last administered on 10/16/18 08:27; Admin Dose 1 PKT; Start 09/27/18 at 21:00 Pantoprazole (Protonix Tab) 40 mg BID@06,18 PO Last administered on 10/16/18 17:49; Admin Dose 40 MG; Start 10/06/18 at 18:00 Lidocaine (Lidocaine 5% Oint) 1 applic TID TOP Last administered on 10/18/18 13:06; Admin Dose 1 APPLIC; Start 10/06/18 at 21:00 Phenyleph/Shark Oil/Min Oil/Petrol (Formulation R Oint) 1 applic PRN PRN [place] HEM ORROID PAIN/ITCHING Last administered on 10/16/18 08:32; Admin Dose 1 APPLIC; Start 10/08/18 at 02:28 Lactulose (Enulose) 20 gm Q6H PRN PO constipation; Start 10/08/18 at 12:00 Docusate Sodium (Colace) 200 mg HS PO Last administered on 10/17/18 21:08; Admin Dose 200 MG; Start 10/08/18 at 21:00 Tramadol HCl (Ultram) 100 mg Q6H PRN PO PAIN LEVEL 6-10 Last administered on 10/18/18 13:11; Admin Dose 100 MG; Start 10/09/18 at 18:30 Polyethylene Glycol (Miralax) 17 gm BID NGT Last administered on 10/16/18 08:32; Admin Dose 17 GM; Start 10/10/18 at 09:00 Albumin Human 250 ml @ 250 mls/hr WITH DIALYSIS PRN IV SBP<90; Start 10/11/18 at 12:30 Sodium Chloride (NS) -To prime the dialy... DIRECTED FOR HD PRN IV SBP<90; Start 10/11/18 at 12:30 Lubiprostone (Amitiza) 24 mcg BID PO Last administered on 10/18/18 09:27; Admin Dose 24 MCG; Start 10/12/18 at 10:30 Heparin Sodium (Porcine) (Heparin (1000 Units/ml)) 4,700 unit AFTER DIALYSIS CATHETER Last administered on 10/12/18at 23:36; Admin Dose 4,700 UNIT; Start 10/12/18 at 22:30 Heparin Sodium (Porcine) (Heparin (5000 Units/1ml)) 5,000 unit BID SC Last administered on 10/18/18at 09:30; Admin Dose 5,000 UNIT; Start 10/15/18 at 13:30 KOFI SWANN MD Oct 18, 2018 13:15
[2018-10-18 19:54] VITALS: BP 110/59; PULSE 89; RESP 16
[2018-10-18] MEDS: DOCUSATE SODIUM 100 MG CAP PO SCH (20:17)
[2018-10-18] MEDS: BISACODYL (EC) 5 MG TAB PO PRN (20:17)
[2018-10-19 02:50] VITALS: BP 162/86; PULSE 64; RESP 16
[2018-10-19] MEDS: LOPERAMIDE 2 MG CAP PO PRN ×2 (02:58→09:01)
[2018-10-19] MEDS: traMADol 50 MG TAB PO PRN ×3 (02:59→19:53)
[2018-10-19] MEDS: ACCU-CHEK XX SCH (02:59)
[2018-10-19] MEDS: PANTOPRAZOLE (EC) 40 MG TAB PO SCH ×2 (06:52→17:52)
[2018-10-19 08:06] VITALS: BP 132/75; PULSE 90; RESP 18
[2018-10-19] MEDS: FUROSEMIDE 40 MG TAB PO SCH (08:42)
[2018-10-19] MEDS: LACTOBACILLUS RHAMNOSUS CAP PO SCH ×2 (08:42→21:00)
[2018-10-19] MEDS: ALLOPURINOL 100 MG TAB PO SCH (08:42)
[2018-10-19] MEDS: L ACIDOPHIL/B LACTIS/B LONGUM CAPSULE PO SCH ×2 (09:00→21:00)
[2018-10-19] MEDS: LUBIPROSTONE 24 MCG CAP PO SCH ×2 (09:00→21:00)
[2018-10-19] MEDS: DICLOFENAC SODIUM 1% GEL 100 GM TUBE TP SCH ×4 (09:00→21:00)
[2018-10-19] MEDS: PSYLLIUM (SUGAR FREE) PACKET PO SCH ×2 (09:00→21:00)
[2018-10-19] MEDS: POLYETHYLENE GLYCOL 17 GM PACKET NGT SCH ×2 (09:00→21:00)
[2018-10-19] MEDS: LIDOCAINE 5% 35 GM OINT TOP SCH ×3 (09:00→21:00)
[2018-10-19] MEDS: ARTIFICIAL TEARS 15 ML OPH BOTH EYES SCH ×4 (09:00→21:00)
[2018-10-19] MEDS: NYSTATIN 30 GM POWDER BTL TOP SCH ×2 (09:00→21:00)
[2018-10-19] MEDS: BALSAM PERU/CASTOR OIL 60 GM TUBE TOP SCH ×2 (09:00→21:00)
[2018-10-19] MEDS: GABAPENTIN 100 MG CAP PO PRN (09:01)
[2018-10-19] MEDS: HEPARIN 5,000 UNIT/1 ML VIAL SC SCH ×2 (09:03→22:13)
[2018-10-19] MEDS: INSULIN ASPART [NOVOLOG] 3 ML PEN SC SCH ×4 (09:04→22:12)
--- NOTE | 2018-10-19 10:58 | PN ---
Date/Time of Note Date/Time of Note DATE: 10/19/18 TIME: 10:56 Assessment/Plan VTE Prophylaxis Risk score (from Ns)>0 risk: 7 SCD applied (from Ns): No SCD contraindicated: patient refusal Pharmacological prophylaxis: heparin Lines/Catheters IV Catheter Type (from Nrs): Saline Lock Urinary Cath still in place: No Assessment/Plan Hospital Course 58 yo female presents for whole body pain for which we were consulted for rectal pain 1. Rectal pain secondary to anal fissure -improved 2. Anal fissure 3. Constipation, chronic 4. GERD 5. CKD 3, now on HD, refusing HD 6. Morbid obesity with deconditioning 7. Diabetes mellitus 8. H/O CHF 9. Mild acute anemia likely due to chronic diseae -anemia work up 10. Abdominal bloating after eating per pt with nausea and vomiting -improved 11. Fatty liver Plan Continue PT Continue with bowel regimen PPI BID Sitz bath BID Amitiza 24 mcg BID Pt examined and plan of care discussed with Dr. Alvarado Result Diagram: 10/17/182223 Results 24hrs Laboratory Tests Test 10/18/18 13:03 10/18/18 23:18 10/19/18 02:13 10/19/18 08:28 Bedside Glucose 209 203 205 206 Subjective 24 Hr Interval Summary Free Text/Dictation Pt having mx bm. Brown. No evidence of GI bleeding. States abd bloating and rectal pain improved Exam/Review of Systems Vital Signs Vitals Vital Signs Date Temp Pulse Resp B/P (MAP) Pulse Ox O2 O2 Flow FiO2 Time Delivery Rate 10/19/18 98.3 90 18 132/75 92 Room Air 08:06 (94) Intake and Output 10/18/18 10/18/18 10/19/18 1515:00 23:00 07:00 IntakeIntake Total 220 ml 240 ml OutputOutput Total 1 ml 2 ml BalanceBalance 219 ml 238 ml Exam Constitutional: alert, oriented Psych: no complaints Head: normocephalic Eyes: PERRL ENMT: mucosa pink and moist Gastrointestinal: soft, non-tender, bowel sounds Medications Medications Current Medications Acetaminophen (Tylenol Tab) 325 mg Q4H PRN PO MILD PAIN(1-3)OR ELEVATED TEMP Last administered on 10/18/18at 09:27; Admin Dose 325 MG; Start 07/20/18 at 23:00 Allopurinol (Zyloprim) 100 mg DAILY PO Last administered on 10/19/18 08:42; Admin Dose 100 MG; Start 07/21/18 at 09:00 IV Flush (NS 3 ml) 3 ml PER PROTOCOL IV ; Start 07/20/18 at 23:00 Acetaminophen (Tylenol Tab) 650 mg Q6H PRN PO PAIN LEVEL 1-3 OR FEVER Last ad ministered on 10/18/18 01:51; Admin Dose 650 MG; Start 07/20/18 at 23:00 Acetaminophen (Tylenol Supp) 650 mg Q6H PRN [place] PAIN LEVEL 1-3 OR FEVER; Start 07/20/18 at 23:00 Bisacodyl (Dulcolax) 5 mg DAILY PRN PO CONSTIPATION Last administered on 10/18/18 20:17; Admin Dose 5 MG; Start 07/20/18 at 23:00 Diagnostic Test (Pha) (Accu-Chek) 1 ea 02 XX Last administered on 10/19/18 02:59; Admin Dose 1 EA; Start 07/21/18 at 02:00 Insulin Aspart (Novolog Insulin Pen) NOVOLOG *MILD* ALGORITHM WITH MEALS BEDTIME SC Last administered on 10/19/18 09:04; Admin Dose 2 UNIT; Start 07/21/18 at 07:50 Ergocalciferol (Drisdol) 50,000 unit Lacy@0900 PO Last administered on 10/16/18 12:38; Admin Dose 50,000 UNIT; Start 07/24/18 at 09:00 Miscellaneous Information 1 ea NOTE XX ; Start 07/20/18 at 23:00 Glucose (Glutose) 15 gm Q15M PRN PO DECREASED GLUCOSE; Start 07/20/18 at 23:00 Glucose (Glutose) 22.5 gm Q15M PRN PO DECREASED GLUCOSE; Start 07/20/18 at 23:00 Dextrose (D50w Syringe) 25 ml Q15M PRN IV DECREASED GLUCOSE; Start 07/20/18 at 23:00 Dextrose (D50w Syringe) 50 ml Q15M PRN IV DECREASED GLUCOSE; Start 07/20/18 at 23:00 Glucagon (Glucagen) 1 mg Q15M PRN IM DECREASED GLUCOSE; Start 07/20/18 at 23:00 Glucose (Glutose) 15 gm Q15M PRN BUCCAL DECREASED GLUCOSE; Start 07/20/18 at 23:00 Melatonin (Melatonin) 3 mg HS PRN PO INSOMNIA Last administered on 10/18/18 01:50; Admin Dose 3 MG; Start 07/20/18 at 23:00 Diclofenac Sodium (Voltaren 1% Gel) 2 gm QID TP Last administered on 10/18/18 13:06; Admin Dose 2 GM; Start 07/22/18 at 13:00 Loratadine (Claritin) 10 mg DAILY PRN PO ALLERGIC REACTION Last administered on 08/07/18 12:48; Admin Dose 10 MG; Start 08/07/18 at 12:30 Hydralazine HCl (Apresoline) 10 mg Q6H PRN PO ELEVATED BLOOD PRESSURE Last administered on 09/14/18 02:44; Admin Dose 10 MG; Start 08/08/18 at 04:30 Hydralazine HCl (Apresoline) 25 mg TID PO Last administered on 10/19/18 08:42; Admin Dose 25 MG; Start 08/08/18 at 13:00 Eye Lubricant (Artificial Tears Oph) 2 drop QID BOTH EYES Last administered on 10/18/18 13:05; Admin Dose 2 DROP; Start 08/09/18 at 11:00 Calcium Carbonate (Tums) 500 mg PRN PRN PO HEARTBURN Last administered on 10/05/18 12:34; Admin Dose 500 MG; Start 08/09/18 at 14:30 Loperamide HCl (Imodium Cap) 2 mg QID PRN PO DIARRHEA Last administered on 10/19/18 09:01; Admin Dose 2 MG; Start 08/21/18 at 16:00 Lactobacillus Acidophilus/ Rhamnosus (Culturelle) 1 cap BID PO Last administered on 10/19/18 08:42; Admin Dose 1 CAP; Start 08/21/18 at 21:00 Nystatin (Nystatin Powder) 1 applic BID TOP Last administered on 10/18/18 09:28; Admin Dose 1 APPLIC; Start 08/28/18 at 21:00 Ondansetron HCl (Zofran Tab) 4 mg Q6H PRN PO NAUSEA AND/OR VOMITING Last administered on 09/10/18 07:58; Admin Dose 4 MG; Start 09/03/18 at 16:00 Al Hydrox/Mg Hydrox/Simethicone (Mag-Al Plus) 30 ml Q4H PRN PO GASTROINTESTINAL UPSET; Start 09/10/18 at 18:00 Furosemide (Lasix) 40 mg DAILY PO Last administered on 10/19/18 08:42; Admin Dose 40 MG; Start 09/21/18 at 14:30 Carbamide Peroxide (Debrox Otic) 3 drop BID PRN BOTH EARS EAR PAIN Last administered on 10/15/18 20:39; Admin Dose 3 DROP; Start 09/24/18 at 16:00 Ondansetron HCl (Zofran Inj) 4 mg Q6H PRN IV NAUSEA AND/OR VOMITING Last administered on 10/15/18 06:15; Admin Dose 4 MG; Start 09/26/18 at 07:30 Gabapentin (Neurontin) 100 mg BID PRN PO NEUROPATHIC PAIN Last administered on 10/19/18 09:01; Admin Dose 100 MG; Start 09/27/18 at 21:00 Lactobacillus Acidophilus (Florajen3 Capsule) 1 each BID PO Last administered on 10/16/18 08:27; Admin Dose 1 EACH; Start 09/27/18 at 21:00 Psyllium Hydrophilic Mucilloid (Metamucil (Sugar Free)) 1 pkt BID PO Last admin istered on 10/16/18 08:27; Admin Dose 1 PKT; Start 09/27/18 at 21:00 Pantoprazole (Protonix Tab) 40 mg BID@06,18 PO Last administered on 10/19/18 06:52; Admin Dose 40 MG; Start 10/06/18 at 18:00 Lidocaine (Lidocaine 5% Oint) 1 applic TID TOP Last administered on 10/18/18 13:06; Admin Dose 1 APPLIC; Start 10/06/18 at 21:00 Phenyleph/Shark Oil/Min Oil/Petrol (Formulation R Oint) 1 applic PRN PRN [place] HEMORROID PAIN/ITCHING Last administered on 10/16/18 08:32; Admin Dose 1 APPLIC; Start 10/08/18 at 02:28 Lactulose (Enulose) 20 gm Q6H PRN PO constipation; Start 10/08/18 at 12:00 Docusate Sodium (Colace) 200 mg HS PO Last administered on 1/15/19at 20:17; Admin Dose 200 MG; Start 10/08/18 at 21:00 Tramadol HCl (Ultram) 100 mg Q6H PRN PO PAIN LEVEL 6-10 Last administered on 10/19/18at 08:26; Admin Dose 100 MG; Start 10/09/18 at 18:30 Polyethylene Glycol (Miralax) 17 gm BID NGT Last administered on 10/16/18at 08:32; Admin Dose 17 GM; Start 10/10/18 at 09:00 Albumin Human 250 ml @ 250 mls/hr WITH DIALYSIS PRN IV SBP<90; Start 10/11/18 at 12:30 Sodium Chloride (NS) -To prime the dialy... DIRECTED FOR HD PRN IV SBP<90; Start 10/11/18 at 12:30 Lubiprostone (Amitiza) 24 mcg BID PO Last administered on 10/18/18at 20:17; Admin Dose 24 MCG; Start 10/12/18 at 10:30 Heparin Sodium (Porcine) (Heparin (1000 Units/ml)) 4,700 unit AFTER DIALYSIS CATHETER Last administered on 10/12/18at 23:36; Admin Dose 4,700 UNIT; Start 10/12/18 at 22:30 Heparin Sodium (Porcine) (Heparin (5000 Units/1ml)) 5,000 unit BID SC Last administered on 10/19/18at 09:03; Admin Dose 5,000 UNIT; Start 10/15/18 at 13:30 CHARLIE STRAUSS Oct 19, 2018 10:58
--- NOTE | 2018-10-19 13:21 | PN ---
Date/Time of Note Date/Time of Note DATE: 10/19/18 TIME: 13:21 Assessment/Plan VTE Prophylaxis Risk score (from Nsg)>0 risk: 7 SCD applied (from Nsg): No SCD contraindicated: low risk/ambulating Pharmacological prophylaxis: heparin Lines/Catheters IV Catheter Type (from Nrsg): Saline Lock Urinary Cath still in place: No Assessment/Plan Hospital Course 58 y/o with 1. . ckd iii-iv now with the complications of hyperkalemia, patient has been refusing Kayexalate [place] has also been refusing dialysis, patient was explained the risks and consequences and patient completely understands the risks and consequences, now agreed, on and off Hd once a week 2. c diff hx 3. Chronic kidney disease, 4. Morbid obesity. 5. Diabetes. 6. Hypertension, 7. Gout.hx 8. Neuropathy. 9. History of congestive heart failure. 10 weakness 11 deconditioning 13 Left shoulde pain, TTP ? Frozen shoulder , shoulder impingement 14 s/p Fall ? AMS confusion likley due to UTI 15 uti klebsiella and enterococcus 16 diarrhea 15 vomtiing/? contipation> refuse labs again 16 Dizziness> chronic ? Postural 17 UTI 18 rectal pain with fissure Plan - WILL also get 24 hr urine studies for Cr Clearence after HD, pt refusing collection, is not using bed [place]/ dunbar , wants to use diapers so cannot get 24 HR urine collection for Cr clearence unfortunately will have to do HD prn/weekly basis, very difficult patient not coperative with any intervention - pt non coperative - calorie count - PPI BID -stool softners - Lactobacillus - Physical therapy - low k diet, cw lasix -tyenolol on as needed headache - HD once a week arrange for SNIF with HD placement,pt already discharged, Spoke to , still no placement Result Diagram: 10/17/18 2224 Results 24hrs Laboratory Tests Test 10/18/18 23:18 10/19/18 02:13 10/19/18 08:28 10/19/18 12:43 Bedside Glucose 203 205 206 164 Subjective 24 Hr Interval Summary Free Text/Dictation Pt says its the same Exam/Review of Systems Vital Signs Vitals Vital Signs Date Temp Pulse Resp B/P (MAP) Pulse Ox O2 O2 Flow FiO2 Time Delivery Rate 10/19/18 98.3 90 18 132/75 92 Room Air 08:06 (94) Intake and Output 10/18/18 10/18/18 10/19/18 1515:00 23:00 07:00 IntakeIntake Total 220 ml 240 ml OutputOutput Total 1 ml 2 ml BalanceBalance 219 ml 238 ml Exam Respiratory: clear to auscultation Cardiovascular: regular rate and rhythm Gastrointestinal: soft Musculoskeletal: nl extremities to inspection Extremities: normal pulses permcath obese Medications Medications Current Medications Acetaminophen (Tylenol Tab) 325 mg Q4H PRN PO MILD PAIN(1-3)OR ELEVATED TEMP Last administered on 10/18/18 09:27; Admin Dose 325 MG; Start 07/20/18 at 23:00 Allopurinol (Zyloprim) 100 mg DAILY PO Last administered on 10/19/18 08:42; Admin Dose 100 MG; Start 07/21/18 at 09:00 IV Flush (NS 3 ml) 3 ml PER PROTOCOL IV ; Start 07/20/18 at 23:00 Acetaminophen (Tylenol Tab) 650 mg Q6H PRN PO PAIN LEVEL 1-3 OR FEVER Last admi nistered on 10/18/18 01:51; Admin Dose 650 MG; Start 07/20/18 at 23:00 Acetaminophen (Tylenol Supp) 650 mg Q6H PRN [place] PAIN LEVEL 1-3 OR FEVER; Start 07/20/18 at 23:00 Bisacodyl (Dulcolax) 5 mg DAILY PRN PO CONSTIPATION Last administered on 10/18/18 20:17; Admin Dose 5 MG; Start 07/20/18 at 23:00 Diagnostic Test (Pha) (Accu-Chek) 1 ea 02 XX Last administered on 10/19/18 02:59; Admin Dose 1 EA; Start 07/21/18 at 02:00 Insulin Aspart (Novolog Insulin Pen) NOVOLOG *MILD* ALGORITHM WITH MEALS BEDTIME SC Last administered on 10/19/18 13:06; Admin Dose 1 UNIT; Start 07/21/18 at 07:50 Ergocalciferol (Drisdol) 50,000 unit Lacy@0900 PO Last administered on 10/16/18 12:38; Admin Dose 50,000 UNIT; Start 07/24/18 at 09:00 Miscellaneous Information 1 ea NOTE XX ; Start 07/20/18 at 23:00 Glucose (Glutose) 15 gm Q15M PRN PO DECREASED GLUCOSE; Start 07/20/18 at 23:00 Glucose (Glutose) 22.5 gm Q15M PRN PO DECREASED GLUCOSE; Start 07/20/18 at 23:00 Dextrose (D50w Syringe) 25 ml Q15M PRN IV DECREASED GLUCOSE; Start 07/20/18 at 23:00 Dextrose (D50w Syringe) 50 ml Q15M PRN IV DECREASED GLUCOSE; Start 07/20/18 at 23:00 Glucagon (Glucagen) 1 mg Q15M PRN IM DECREASED GLUCOSE; Start 07/20/18 at 23:00 Glucose (Glutose) 15 gm Q15M PRN BUCCAL DECREASED GLUCOSE; Start 07/20/18 at 2 3:00 Melatonin (Melatonin) 3 mg HS PRN PO INSOMNIA Last administered on 10/18/18 01:50; Admin Dose 3 MG; Start 07/20/18 at 23:00 Diclofenac Sodium (Voltaren 1% Gel) 2 gm QID TP Last administered on 10/18/18 13:06; Admin Dose 2 GM; Start 07/22/18 at 13:00 Loratadine (Claritin) 10 mg DAILY PRN PO ALLERGIC REACTION Last administered on 08/07/18at 12:48; Admin Dose 10 MG; Start 08/07/18 at 12:30 Hydralazine HCl (Apresoline) 10 mg Q6H PRN PO ELEVATED BLOOD PRESSURE Last administered on 09/14/18at 02:44; Admin Dose 10 MG; Start 08/08/18 at 04:30 Hydralazine HCl (Apresoline) 25 mg TID PO Last administered on 10/19/18 13:04; Admin Dose 25 MG; Start 08/08/18 at 13:00 Eye Lubricant (Artificial Tears Oph) 2 drop QID BOTH EYES Last administered on 10/18/18 13:05; Admin Dose 2 DROP; Start 08/09/18 at 11:00 Calcium Carbonate (Tums) 500 mg PRN PRN PO HEARTBURN Last administered on 10/05/18 12:34; Admin Dose 500 MG; Start 08/09/18 at 14:30 Loperamide HCl (Imodium Cap) 2 mg QID PRN PO DIARRHEA Last administered on 10/19/18 09:01; Admin Dose 2 MG; Start 08/21/18 at 16:00 Lactobacillus Acidophilus/ Rhamnosus (Culturelle) 1 cap BID PO Last administered on 10/19/18 08:42; Admin Dose 1 CAP; Start 08/21/18 at 21:00 Nystatin (Nystatin Powder) 1 applic BID TOP Last administered on 10/18/18 09:28; Admin Dose 1 APPLIC; Start 08/28/18 at 21:00 Ondansetron HCl (Zofran Tab) 4 mg Q6H PRN PO NAUSEA AND/OR VOMITING Last administered on 09/10/18 07:58; Admin Dose 4 MG; Start 09/03/18 at 16:00 Al Hydrox/Mg Hydrox/Simethicone (Mag-Al Plus) 30 ml Q4H PRN PO GASTROINTESTINAL UPSET; Start 09/10/18 at 18:00 Furosemide (Lasix) 40 mg DAILY PO Last administered on 10/19/18 08:42; Admin Dose 40 MG; Start 09/21/18 at 14:30 Carbamide Peroxide (Debrox Otic) 3 drop BID PRN BOTH EARS EAR PAIN Last administered on 10/15/18 20:39; Admin Dose 3 DROP; Start 09/24/18 at 16:00 Ondansetron HCl (Zofran Inj) 4 mg Q6H PRN IV NAUSEA AND/OR VOMITING Last administered on 10/15/18 06:15; Admin Dose 4 MG; Start 09/26/18 at 07:30 Gabapentin (Neurontin) 100 mg BID PRN PO NEUROPATHIC PAIN Last administered on 10/19/18 09:01; Admin Dose 100 MG; Start 09/27/18 at 21:00 Lactobacillus Acidophilus (Florajen3 Capsule) 1 each BID PO Last administered on 10/16/18 08:27; Admin Dose 1 EACH; Start 09/27/18 at 21:00 Psyllium Hydrophilic Mucilloid (Metamucil (Sugar Free)) 1 pkt BID PO Last administered on 10/16/18 08:27; Admin Dose 1 PKT; Start 09/27/18 at 21:00 Pantoprazole (Protonix Tab) 40 mg BID@18 PO Last administered on 10/19/18 06:52; Admin Dose 40 MG; Start 10/06/18 at 18:00 Lidocaine (Lidocaine 5% Oint) 1 applic TID TOP Last administered on 10/18/18 13:06; Admin Dose 1 APPLIC; Start 10/06/18 at 21:00 Phenyleph/Shark Oil/Min Oil/Petrol (Formulation R Oint) 1 applic PRN PRN [place] HEMORROID PAIN/ITCHING Last administered on 10/16/18 08:32; Admin Dose 1 APPLIC; Start 10/08/18 at 02:28 Lactulose (Enulose) 20 gm Q6H PRN PO constipation; Start 10/08/18 at 12:00 Docusate Sodium (Colace) 200 mg HS PO Last administered on 10/18/18 20:17; Admin Dose 200 MG; Start 10/08/18 at 21:00 Tramadol HCl (Ultram) 100 mg Q6H PRN PO PAIN LEVEL 6-10 Last administered on 10/19/18 08:26; Admin Dose 100 MG; Start 10/09/18 at 18:30 Polyethylene Glycol (Miralax) 17 gm BID NGT Last administered on 10/16/18 08:32; Admin Dose 17 GM; Start 10/10/18 at 09:00 Albumin Human 250 ml @ 250 mls/hr WITH DIALYSIS PRN IV SBP<90; Start 10/11/18 at 12:30 Sodium Chloride (NS) -To prime the dialy... DIRECTED FOR HD PRN IV SBP<90; Start 10/11/18 at 12:30 Lubiprostone (Amitiza) 24 mcg BID PO Last administered on 10/18/18 20:17; Admin Dose 24 MCG; Start 10/12/18 at 10:30 Heparin Sodium (Porcine) (Heparin (1000 Units/ml)) 4,700 unit AFTER DIALYSIS CATHETER Last administered on 10/12/18 23:36; Admin Dose 4,700 UNIT; Start 10/12/18 at 22:30 Heparin Sodium (Porcine) (Heparin (5000 Units/1ml)) 5,000 unit BID SC Last administered on 10/19/18 09:03; Admin Dose 5,000 UNIT; Start 10/15/18 at 13:30 KOFI SWANN MD Oct 19, 2018 13:21
[2018-10-19 14:20] VITALS: BP 116/77; PULSE 89; RESP 20
[2018-10-19 19:25] VITALS: BP 132/58; PULSE 91; RESP 20
[2018-10-19] MEDS: DOCUSATE SODIUM 100 MG CAP PO SCH (21:00)
[2018-10-20] MEDS: MELATONIN 3 MG TABLET PO PRN (00:30)
[2018-10-20] MEDS: traMADol 50 MG TAB PO PRN ×4 (00:30→20:44)
[2018-10-20] MEDS: ACCU-CHEK XX SCH (02:00)
[2018-10-20 02:10] VITALS: BP 121/84; PULSE 90; RESP 18
[2018-10-20] MEDS: PANTOPRAZOLE (EC) 40 MG TAB PO SCH ×2 (05:16→17:47)
[2018-10-20 07:53] VITALS: BP 149/74; PULSE 82; RESP 18
[2018-10-20] MEDS: INSULIN ASPART [NOVOLOG] 3 ML PEN SC SCH ×4 (08:50→20:58)
[2018-10-20] MEDS: PSYLLIUM (SUGAR FREE) PACKET PO SCH ×2 (09:00→20:58)
[2018-10-20] MEDS: POLYETHYLENE GLYCOL 17 GM PACKET NGT SCH ×2 (09:00→20:57)
[2018-10-20] MEDS: L ACIDOPHIL/B LACTIS/B LONGUM CAPSULE PO SCH ×2 (09:00→20:58)
[2018-10-20] MEDS: LACTOBACILLUS RHAMNOSUS CAP PO SCH (09:00)
[2018-10-20] MEDS: ARTIFICIAL TEARS 15 ML OPH BOTH EYES SCH ×4 (09:01→20:57)
[2018-10-20] MEDS: LUBIPROSTONE 24 MCG CAP PO SCH ×2 (09:01→20:57)
[2018-10-20] MEDS: FUROSEMIDE 40 MG TAB PO SCH (09:02)
[2018-10-20] MEDS: ALLOPURINOL 100 MG TAB PO SCH (09:03)
[2018-10-20] MEDS: BALSAM PERU/CASTOR OIL 60 GM TUBE TOP SCH ×2 (09:05→20:59)
[2018-10-20] MEDS: DICLOFENAC SODIUM 1% GEL 100 GM TUBE TP SCH ×4 (09:05→20:59)
[2018-10-20] MEDS: HEPARIN 5,000 UNIT/1 ML VIAL SC SCH ×2 (09:05→20:51)
[2018-10-20] MEDS: NYSTATIN 30 GM POWDER BTL TOP SCH ×2 (09:05→20:59)
[2018-10-20] MEDS: LIDOCAINE 5% 35 GM OINT TOP SCH ×3 (09:06→20:58)
[2018-10-20] MEDS: GABAPENTIN 100 MG CAP PO PRN (09:42)
[2018-10-20] MEDS: BISACODYL (EC) 5 MG TAB PO PRN (09:42)
--- NOTE | 2018-10-20 10:31 | PN ---
Date/Time of Note Date/Time of Note DATE: 10/20/18 TIME: 10:30 Assessment/Plan VTE Prophylaxis Risk score (from Ns)>0 risk: 6 SCD applied (from Ns): No SCD contraindicated: low risk/ambulating Pharmacological prophylaxis: NA/contraindicated, heparin Pharm contraindication: low risk/ambulating Lines/Catheters IV [facility]from [facility] Saline Lock Urinary Cath still in place: No Assessment/Plan Hospital Course 58 y/o with 1. . ckd iii-iv now with the complications of hyperkalemia, patient has been refusing Kayexalate Veltaastrida has also been refusing dialysis, patient was explained the risks and consequences and patient completely understands the risks and consequences, now agreed, on and off Hd once a week 2. c diff hx 3. Chronic kidney disease, 4. Morbid obesity. 5. Diabetes. 6. Hypertension, 7. Gout.hx 8. Neuropathy. 9. History of congestive heart failure. 10 weakness 11 deconditioning 13 Left shoulde pain, TTP ? Frozen shoulder , shoulder impingement 14 s/p Fall ? AMS confusion likley due to UTI 15 uti klebsiella and enterococcus 16 diarrhea 15 vomtiing/? contipation> refuse labs again 16 Dizziness> chronic ? Postural 17 UTI 18 rectal pain with fissure Plan - WILL also get 24 hr urine studies for Cr Clearence after HD, pt refusing collection, is not using bed monterroso/ dunbar , wants to use diapers so cannot get 24 HR urine collection for Cr clearence unfortunately will have to do HD prn/weekly basis, very difficult patient not coperative with any intervention - pt non coperative - calorie count - PPI BID -stool softners - Lactobacillus - Physical therapy PER PT - low k diet, cw lasix -tyenolol on as needed headache - HD once a week - Labs today arrange for SNIF with HD placement,pt already discharged, Spoke to CM , still no placement Result Diagram: 10/17/184 Results 24hrs Laboratory Tests Test 10/19/18 12:43 10/19/18 17:46 10/19/18 22:09 10/20/18 08:59 Bedside Glucose 164 204 207 125 Subjective 24 Hr Interval Summary Free Text/Dictation Pt said that working with PT Exam/Review of Systems Vital Signs Vitals Vital Signs Date Temp Pulse Resp B/P (MAP) Pulse Ox O2 O2 Flow FiO2 Time Delivery Rate 10/20/18 98.0 82 18 149/74 95 07:53 (99) 10/19/18 Room Air 08:06 Intake and Output 10/19/18 10/19/18 10/20/18 1515:00 23:00 07:00 IntakeIntake Total 200 ml OutputOutput Total 1 ml BalanceBalance 199 ml Exam Respiratory: clear to auscultation Cardiovascular: regular rate and rhythm Gastrointestinal: soft Musculoskeletal: nl extremities to inspection Extremities: normal pulses permcath Medications Medications Current Medications Acetaminophen (Tylenol Tab) 325 mg Q4H PRN PO MILD PAIN(1-3)OR ELEVATED TEMP Last administered on 10/18/18 09:27; Admin Dose 325 MG; Start 07/20/18 at 23:00 Allopurinol (Zyloprim) 100 mg DAILY PO Last administered on 10/20/18 09:03; Admin Dose 100 MG; Start 07/21/18 at 09:00 IV Flush (NS 3 ml) 3 ml PER PROTOCOL IV ; Start 07/20/18 at 23:00 Acetaminophen (Tylenol Tab) 650 mg Q6H PRN PO PAIN LEVEL 1-3 OR FEVER Last administered on 10/18/18 01:51; Admin Dose 650 MG; Start 07/20/18 at 23:00 Acetaminophen (Tylenol Supp) 650 mg Q6H PRN [place] PAIN LEVEL 1-3 OR FEVER; Start 07/20/18 at 23:00 Bisacodyl (Dulcolax) 5 mg DAILY PRN PO CONSTIPATION Last administered on 10/20/18 09:42; Admin Dose 5 MG; Start 07/20/18 at 23:00 Diagnostic Test (Pha) (Accu-Chek) 1 ea 02 XX Last administered on 10/19/18 02:59; Admin Dose 1 EA; Start 07/21/18 at 02:00 Insulin Aspart (Novolog Insulin Pen) NOVOLOG *MILD* ALGORITHM WITH MEALS BEDTIME SC Last administered on 10/19/18 22:12; Admin Dose 1 UNIT; Start 07/21/18 at 07:50 Ergocalciferol (Drisdol) 50,000 unit Lacy@0900 PO Last administered on 10/16/18 12:38; Admin Dose 50,000 UNIT; Start 07/24/18 at 09:00 Miscellaneous Information 1 ea NOTE XX ; Start 07/20/18 at 23:00 Glucose (Glutose) 15 gm Q15M PRN PO DECREASED GLUCOSE; Start 07/20/18 at 23:00 Glucose (Glutose) 22.5 gm Q15M PRN PO DECREASED GLUCOSE; Start 07/20/18 at 23:00 Dextrose (D50w Syringe) 25 ml Q15M PRN IV DECREASED GLUCOSE; Start 07/20/18 at 23:00 Dextrose (D50w Syringe) 50 ml Q15M PRN IV DECREASED GLUCOSE; Start 07/20/18 at 23:00 Glucagon (Glucagen) 1 mg Q15M PRN IM DECREASED GLUCOSE; Start 07/20/18 at 23:00 Glucose (Glutose) 15 gm Q15M PRN BUCCAL DECREASED GLUCOSE; Start 07/20/18 at 23:00 Melatonin (Melatonin) 3 mg HS PRN PO INSOMNIA Last administered on 10/20/18 00:30; Admin Dose 3 MG; Start 07/20/18 at 23:00 Diclofenac Sodium (Voltaren 1% Gel) 2 gm QID TP Last administered on 10/20/18 09:05; Admin Dose 2 GM; Start 07/22/18 at 13:00 Loratadine (Claritin) 10 mg DAILY PRN PO ALLERGIC REACTION Last administered on 08/07/18at 12:48; Admin Dose 10 MG; Start 08/07/18 at 12:30 Hydralazine HCl (Apresoline) 10 mg Q6H PRN PO ELEVATED BLOOD PRESSURE Last administered on 09/14/18at 02:44; Admin Dose 10 MG; Start 08/08/18 at 04:30 Hydralazine HCl (Apresoline) 25 mg TID PO Last administered on 10/20/18 09:03; Admin Dose 25 MG; Start 08/08/18 at 13:00 Eye Lubricant (Artificial Tears Oph) 2 drop QID BOTH EYES Last administered on 10/20/18 09:01; Admin Dose 2 DROP; Start 08/09/18 at 11:00 Calcium Carbonate (Tums) 500 mg PRN PRN PO HEARTBURN Last administered on 10/05/18 12:34; Admin Dose 500 MG; Start 08/09/18 at 14:30 Loperamide HCl (Imodium Cap) 2 mg QID PRN PO DIARRHEA Last administered on 10/19/18 09:01; Admin Dose 2 MG; Start 08/21/18 at 16:00 Lactobacillus Acidophilus/ Rhamnosus (Culturelle) 1 cap BID PO Last administere d on 10/19/18 08:42; Admin Dose 1 CAP; Start 08/21/18 at 21:00 Nystatin (Nystatin Powder) 1 applic BID TOP Last administered on 10/20/18 09:05; Admin Dose 1 APPLIC; Start 08/28/18 at 21:00 Ondansetron HCl (Zofran Tab) 4 mg Q6H PRN PO NAUSEA AND/OR VOMITING Last administered on 09/10/18 07:58; Admin Dose 4 MG; Start 09/03/18 at 16:00 Al Hydrox/Mg Hydrox/Simethicone (Mag-Al Plus) 30 ml Q4H PRN PO GASTROINTESTINAL UPSET; Start 09/10/18 at 18:00 Furosemide (Lasix) 40 mg DAILY PO Last administered on 10/20/18 09:02; Admin Dose 40 MG; Start 09/21/18 at 14:30 Carbamide Peroxide (Debrox Otic) 3 drop BID PRN BOTH EARS EAR PAIN Last administered on 10/15/18 20:39; Admin Dose 3 DROP; Start 09/24/18 at 16:00 Ondansetron HCl (Zofran Inj) 4 mg Q6H PRN IV NAUSEA AND/OR VOMITING Last admini stered on 10/15/18 06:15; Admin Dose 4 MG; Start 09/26/18 at 07:30 Gabapentin (Neurontin) 100 mg BID PRN PO NEUROPATHIC PAIN Last administered on 10/20/18 09:42; Admin Dose 100 MG; Start 09/27/18 at 21:00 Lactobacillus Acidophilus (Florajen3 Capsule) 1 each BID PO Last administered on 10/16/18 08:27; Admin Dose 1 EACH; Start 09/27/18 at 21:00 Psyllium Hydrophilic Mucilloid (Metamucil (Sugar Free)) 1 pkt BID PO Last administered on 10/16/18 08:27; Admin Dose 1 PKT; Start 09/27/18 at 21:00 Pantoprazole (Protonix Tab) 40 mg BID@18 PO Last administered on 10/19/18 17:52; Admin Dose 40 MG; Start 10/06/18 at 18:00 Lidocaine (Lidocaine 5% Oint) 1 applic TID TOP Last administered on 10/20/18 09:06; Admin Dose 1 APPLIC; Start 10/06/18 at 21:00 Phenyleph/Shark Oil/Min Oil/Petrol (Formulation R Oint) 1 applic PRN PRN [place] HEMORROID PAIN/ITCHING Last administered on 10/16/18 08:32; Admin Dose 1 APPLIC; Start 10/08/18 at 02:28 Lactulose (Enulose) 20 gm Q6H PRN PO constipation; Start 10/08/18 at 12:00 Docusate Sodium (Colace) 200 mg HS PO Last administered on 10/18/18 20:17; Admin Dose 200 MG; Start 10/08/18 at 21:00 Tramadol HCl (Ultram) 100 mg Q6H PRN PO PAIN LEVEL 6-10 Last administered on 10/20/18 07:43; Admin Dose 100 MG; Start 10/09/18 at 18:30 Polyethylene Glycol (Miralax) 17 gm BID NGT Last administered on 10/16/18 08:32; Admin Dose 17 GM; Start 10/10/18 at 09:00 Albumin Human 250 ml @ 250 mls/hr WITH DIALYSIS PRN IV SBP<90; Start 10/11/18 at 12:30 Sodium Chloride (NS) -To prime the dialy... DIRECTED FOR HD PRN IV SBP<90; Start 10/11/18 at 12:30 Lubiprostone (Amitiza) 24 mcg BID PO Last administered on 10/20/18 09:01; Admin Dose 24 MCG; Start 10/12/18 at 10:30 Heparin Sodium (Porcine) (Heparin (1000 Units/ml)) 4,700 unit AFTER DIALYSIS CATHETER Last administered on 10/12/18 23:36; Admin Dose 4,700 UNIT; Start 10/12/18 at 22:30 Heparin Sodium (Porcine) (Heparin (5000 Units/1ml)) 5,000 unit BID SC Last administered on 10/20/18 09:05; Admin Dose 5,000 UNIT; Start 10/15/18 at 13:30 KOFI SWANN MD Oct 20, 2018 10:31
[2018-10-20 14:00] VITALS: BP 162/67; PULSE 95; RESP 19
[2018-10-20 19:40] VITALS: BP 137/73; PULSE 96; RESP 20
[2018-10-20] MEDS: DOCUSATE SODIUM 100 MG CAP PO SCH (20:45)
[2018-10-21 02:15] VITALS: BP 137/87; PULSE 78; RESP 20
[2018-10-21] MEDS: MELATONIN 3 MG TABLET PO PRN (03:02)
[2018-10-21] MEDS: traMADol 50 MG TAB PO PRN ×3 (03:03→20:53)
[2018-10-21] MEDS: GABAPENTIN 100 MG CAP PO PRN ×2 (03:03→18:17)
[2018-10-21] MEDS: PANTOPRAZOLE (EC) 40 MG TAB PO SCH ×2 (05:41→18:17)
[2018-10-21] MEDS: BALSAM PERU/CASTOR OIL 60 GM TUBE TOP SCH ×2 (09:00→21:00)
[2018-10-21] MEDS: LIDOCAINE 5% 35 GM OINT TOP SCH ×3 (09:00→21:00)
[2018-10-21] MEDS: POLYETHYLENE GLYCOL 17 GM PACKET NGT SCH ×2 (09:00→21:00)
[2018-10-21] MEDS: PSYLLIUM (SUGAR FREE) PACKET PO SCH ×2 (09:00→21:00)
[2018-10-21] MEDS: DICLOFENAC SODIUM 1% GEL 100 GM TUBE TP SCH ×4 (09:00→21:00)
[2018-10-21] MEDS: L ACIDOPHIL/B LACTIS/B LONGUM CAPSULE PO SCH ×2 (09:00→21:00)
--- NOTE | 2018-10-21 09:00 | CONS ---
Date/Time of Note Date/Time of Note DATE: 10/21/18 TIME: 08:59 Assessment/Plan Assessment/Plan Hospital Course 58 yo female presents for whole body pain for which we were consulted for rectal pain 1. Rectal pain secondary to anal fissure -improved 2. Anal fissure 3. Constipation, chronic 4. GERD 5. CKD 3, now on HD, refusing HD 6. Morbid obesity with deconditioning 7. Diabetes mellitus 8. H/O CHF 9. Mild acute anemia likely due to chronic diseae -anemia work up 10. Abdominal bloating after eating per pt with nausea and vomiting -improved 11. Fatty liver Plan Continue PT Continue with bowel regimen PPI BID Sitz bath BID Pt examined and plan of care discussed with Dr. Alvarado Result Diagram: 10/20/18 1416 Results 24hrs Laboratory Tests Test 10/20/18 12:49 10/20/18 14:16 10/20/18 17:45 10/20/18 20:41 Bedside Glucose 166 158 176 Sodium Level 137 Potassium Level 4.9 Chloride Level 102 Carbon Dioxide Level 28 Anion Gap 7 Blood Urea Nitrogen 53 H Creatinine 3.08 H Est Glomerular 15 L Filtrat Rate mL/min Glucose Level 213 Calcium Level 8.8 Consultation Date/Type/Reason Admit Date/Time Jul 23, 2018 at 16:13 Initial Consult Date 10/06/18 24 HR Interval Summary Free Text/Dictation No acute changes. Rectal pain resolved and abd pain markedly improved. Exam/Review of Systems Vital Signs Vitals Vital Signs Date Temp Pulse Resp B/P (MAP) Pulse Ox O2 O2 Flow FiO2 Time Delivery Rate 10/21/18 98.1 78 20 137/87 95 Room Air 02:15 (104) Intake and Output 10/20/18 10/20/18 10/21/18 1515:00 23:00 07:00 IntakeIntake Total 700 ml 600 ml OutputOutput Total 1 ml BalanceBalance 700 ml -1 ml 600 ml Exam Constitutional: alert, oriented Gastrointestinal: soft, tender Neurological: nl mental status Medications Medications Current Medications Acetaminophen (Tylenol Tab) 325 mg Q4H PRN PO MILD PAIN(1-3)OR ELEVATED TEMP Last administered on 10/18/18at 09:27; Admin Dose 325 MG; Start 07/20/18 at 23:00 Allopurinol (Zyloprim) 100 mg DAILY PO Last administered on 10/20/18 09:03; Admin Dose 100 MG; Start 07/21/18 at 09:00 IV Flush (NS 3 ml) 3 ml PER PROTOCOL IV ; Start 07/20/18 at 23:00 Acetaminophen (Tylenol Supp) 650 mg Q6H PRN [place] PAIN LEVEL 1-3 OR FEVER; Start 07/20/18 at 23:00 Bisacodyl (Dulcolax) 5 mg DAILY PRN PO CONSTIPATION Last administered on 10/20/18 09:42; Admin Dose 5 MG; Start 07/20/18 at 23:00 Insulin Aspart (Novolog Insulin Pen) NOVOLOG *MILD* ALGORITHM WITH MEALS BEDTIME SC Last administered on 10/20/18 17:50; Admin Dose 1 UNIT; Start 07/21/18 at 07:50 Ergocalciferol (Drisdol) 50,000 unit Lacy@0900 PO Last administered on 10/16/18 12:38; Admin Dose 50,000 UNIT; Start 07/24/18 at 09:00 Miscellaneous Information 1 ea NOTE XX ; Start 07/20/18 at 23:00 Dextrose (D50w Syringe) 25 ml Q15M PRN IV DECREASED GLUCOSE; Start 07/20/18 at 23:00 Dextrose (D50w Syringe) 50 ml Q15M PRN IV DECREASED GLUCOSE; Start 07/20/18 at 23:00 Melatonin (Melatonin) 3 mg HS PRN PO INSOMNIA Last administered on 10/21/18 03:02; Admin Dose 3 MG; Start 07/20/18 at 23:00 Diclofenac Sodium (Voltaren 1% Gel) 2 gm QID TP Last administered on 10/20/18 17:51; Admin Dose 2 GM; Start 07/22/18 at 13:00 Loratadine (Claritin) 10 mg DAILY PRN PO ALLERGIC REACTION Last administered on 08/07/18 12:48; Admin Dose 10 MG; Start 08/07/18 at 12:30 Hydralazine HCl (Apresoline) 10 mg Q6H PRN PO ELEVATED BLOOD PRESSURE Last a dministered on 09/14/18 02:44; Admin Dose 10 MG; Start 08/08/18 at 04:30 Hydralazine HCl (Apresoline) 25 mg TID PO Last administered on 10/20/18 20:45; Admin Dose 25 MG; Start 08/08/18 at 13:00 Eye Lubricant (Artificial Tears Oph) 2 drop QID BOTH EYES Last administered on 10/20/18 17:51; Admin Dose 2 DROP; Start 08/09/18 at 11:00 Calcium Carbonate (Tums) 500 mg PRN PRN PO HEARTBURN Last administered on 10/05/18 12:34; Admin Dose 500 MG; Start 08/09/18 at 14:30 Nystatin (Nystatin Powder) 1 applic BID TOP Last administered on 10/20/18 09:05; Admin Dose 1 APPLIC; Start 08/28/18 at 21:00 Ondansetron HCl (Zofran Tab) 4 mg Q6H PRN PO NAUSEA AND/OR VOMITING Last administered on 09/10/18 07:58; Admin Dose 4 MG; Start 09/03/18 at 16:00 Al Hydrox/Mg Hydrox/Simethicone (Mag-Al Plus) 30 ml Q4H PRN PO GASTROINTESTINAL UPSET; Start 09/10/18 at 18:00 Furosemide (Lasix) 40 mg DAILY PO Last administered on 10/20/18 09:02; Admin Dose 40 MG; Start 09/21/18 at 14:30 Carbamide Peroxide (Debrox Otic) 3 drop BID PRN BOTH EARS EAR PAIN Last administered on 10/15/18 20:39; Admin Dose 3 DROP; Start 09/24/18 at 16:00 Ondansetron HCl (Zofran Inj) 4 mg Q6H PRN IV NAUSEA AND/OR VOMITING Last administered on 10/15/18 06:15; Admin Dose 4 MG; Start 09/26/18 at 07:30 Gabapentin (Neurontin) 100 mg BID PRN PO NEUROPATHIC PAIN Last administered on 10/21/18 03:03; Admin Dose 100 MG; Start 09/27/18 at 21:00 Lactobacillus Acidophilus (Florajen3 Capsule) 1 each BID PO Last administered on 10/16/18 08:27; Admin Dose 1 EACH; Start 09/27/18 at 21:00 Psyllium Hydrophilic Mucilloid (Metamucil (Sugar Free)) 1 pkt BID PO Last administered on 10/16/18 08:27; Admin Dose 1 PKT; Start 09/27/18 at 21:00 Pantoprazole (Protonix Tab) 40 mg BID@06,18 PO Last administered on 10/21/18 05:41; Admin Dose 40 MG; Start 10/06/18 at 18:00 Lidocaine (Lidocaine 5% Oint) 1 applic TID TOP Last administered on 10/20/18 12:58; Admin Dose 1 APPLIC; Start 10/06/18 at 21:00 Phenyleph/Shark Oil/Min Oil/Petrol (Formulation R Oint) 1 applic PRN PRN [place] HEMORROID PAIN/ITCHING Last administered on 10/16/18 08:32; Admin Dose 1 APPLIC; Start 10/08/18 at 02:28 Lactulose (Enulose) 20 gm Q6H PRN PO constipation; Start 10/08/18 at 12:00 Docusate Sodium (Colace) 200 mg HS PO Last administered on 10/20/18 20:45; Admin Dose 200 MG; Start 10/08/18 at 21:00 Tramadol HCl (Ultram) 100 mg Q6H PRN PO PAIN LEVEL 6-10 Last administered on 10/21/18 03:03; Admin Dose 100 MG; Start 10/09/18 at 18:30 Polyethylene Glycol (Miralax) 17 gm BID NGT Last administered on 10/16/18 08:32; Admin Dose 17 GM; Start 10/10/18 at 09:00 Albumin Human 250 ml @ 250 mls/hr WITH DIALYSIS PRN IV SBP<90; Start 10/11/18 at 12:30 Sodium Chloride (NS) -To prime the dialy... DIRECTED FOR HD PRN IV SBP<90; Start 10/11/18 at 12:30 Lubiprostone (Amitiza) 24 mcg BID PO Last administered on 10/20/18 09:01; Admin Dose 24 MCG; Start 10/12/18 at 10:30 Heparin Sodium (Porcine) (Heparin (1000 Units/ml)) 4,700 unit AFTER DIALYSIS CATHETER Last administered on 10/12/18 23:36; Admin Dose 4,700 UNIT; Start 10/12/18 at 22:30 Heparin Sodium (Porcine) (Heparin (5000 Units/1ml)) 5,000 unit BID SC Last administered on 10/20/18 20:51; Admin Dose 5,000 UNIT; Start 10/15/18 at 13:30 CHARLIE STRAUSS Oct 21, 2018 09:00
[2018-10-21 09:10] VITALS: BP 135/58; PULSE 89; RESP 16
[2018-10-21] MEDS: INSULIN ASPART [NOVOLOG] 3 ML PEN SC SCH ×4 (09:10→21:00)
[2018-10-21] MEDS: ARTIFICIAL TEARS 15 ML OPH BOTH EYES SCH ×4 (09:18→21:00)
[2018-10-21] MEDS: NYSTATIN 30 GM POWDER BTL TOP SCH ×2 (09:20→21:00)
[2018-10-21] MEDS: ALLOPURINOL 100 MG TAB PO SCH (09:21)
[2018-10-21] MEDS: LUBIPROSTONE 24 MCG CAP PO SCH ×2 (09:26→21:00)
[2018-10-21] MEDS: FUROSEMIDE 40 MG TAB PO SCH (09:27)
[2018-10-21] MEDS: HEPARIN 5,000 UNIT/1 ML VIAL SC SCH ×2 (09:34→20:47)
[2018-10-21 14:26] VITALS: BP 130/59; PULSE 88; RESP 20
--- NOTE | 2018-10-21 14:40 | PN ---
Date/Time of Note Date/Time of Note DATE: 10/21/18 TIME: 14:39 Assessment/Plan VTE Prophylaxis Risk score (from Ns)>0 risk: 6 SCD applied (from Ns): Yes Pharmacological prophylaxis: NA/contraindicated Pharm contraindication: bleeding Lines/Catheters IV Catheter Type (from Nrsg): Saline Lock Urinary Cath still in place: No Assessment/Plan Hospital Course 1. ckd, hyperkalemia 2. c diff hx 3. Opiates dependency 4. Morbid obesity. 5. Diabetes. 6. Hypertension, 7. Gout, hx 8. Neuropathy. 9. History of congestive heart failure. 10. weakness 11. deconditioning 12. Non compliance, pt refused [place], HD 13. Left shoulder chronic pain. Xray was reviewed from the last visit, it is arthrosis left acromioclavicular joint 14. constipation 15. UTI 16. right arm Picc line is not functioning Assessment/Plan - 24 hr urine studies for Cr Clearence after HD, pt refusing collection, is not using bed monterroso/ dunbar , wants to use diapers so cannot get 24 HR urine collection for Cr clearence unfortunately will have to do HD prn/weekly basis, very difficult patient not coperative with any intervention - pt non cooperative - calorie count - PPI BID -stool softeners - Lactobacillus - Physical therapy PER PT - low k diet, cw lasix -Tylenol on as needed headache - HD once a week -arrange for SNF with HD placement,pt already discharged, Spoke to CM , still no placement Result Diagram: 10/20/18 1416 Results 24hrs Laboratory Tests Test 10/20/18 17:45 10/20/18 20:41 10/21/18 09:07 10/21/18 12:43 Bedside Glucose 158 176 181 158 Subjective 24 Hr Interval Summary Musculoskeletal: bone/joint pain (left shoulder discomfort) Exam/Review of Systems Vital Signs Vitals Vital Signs Date Temp Pulse Resp B/P (MAP) Pulse Ox O2 O2 Flow FiO2 Time Delivery Rate 10/21/18 97.8 88 20 130/59 93 14:26 (82) 10/21/18 Room Air 09:10 Intake and Output 10/20/18 10/20/18 10/21/18 1515:00 23:00 07:00 IntakeIntake Total 700 ml 600 ml OutputOutput Total 1 ml BalanceBalance 700 ml -1 ml 600 ml Exam left chest Permcath Constitutional: alert, oriented Respiratory: clear to auscultation Cardiovascular: regular rate and rhythm Medications Medications Current Medications Acetaminophen (Tylenol Tab) 325 mg Q4H PRN PO MILD PAIN(1-3)OR ELEVATED TEMP Last administered on 10/18/18 09:27; Admin Dose 325 MG; Start 07/20/18 at 23:00 Allopurinol (Zyloprim) 100 mg DAILY PO Last administered on 10/21/18 09:21; Admin Dose 100 MG; Start 07/21/18 at 09:00 IV Flush (NS 3 ml) 3 ml PER PROTOCOL IV ; Start 07/20/18 at 23:00 Acetaminophen (Tylenol Supp) 650 mg Q6H PRN [place] PAIN LEVEL 1-3 OR FEVER; Start 07/20/18 at 23:00 Bisacodyl (Dulcolax) 5 mg DAILY PRN PO CONSTIPATION Last administered on 10/20/18 09:42; Admin Dose 5 MG; Start 07/20/18 at 23:00 Insulin Aspart (Novolog Insulin Pen) NOVOLOG *MILD* ALGORITHM WITH MEALS BEDTIME SC Last administered on 10/21/18 12:46; Admin Dose 1 UNIT; Start 07/21/18 at 07:50 Ergocalciferol (Drisdol) 50,000 unit Lacy@0900 PO Last administered on 10/16/18 12:38; Admin Dose 50,000 UNIT; Start 07/24/18 at 09:00 Miscellaneous Information 1 ea NOTE XX ; Start 07/20/18 at 23:00 Dextrose (D50w Syringe) 25 ml Q15M PRN IV DECREASED GLUCOSE; Start 07/20/18 at 23:00 Dextrose (D50w Syringe) 50 ml Q15M PRN IV DECREASED GLUCOSE; Start 07/20/18 at 23:00 Melatonin (Melatonin) 3 mg HS PRN PO INSOMNIA Last administered on 10/21/18 03 :02; Admin Dose 3 MG; Start 07/20/18 at 23:00 Diclofenac Sodium (Voltaren 1% Gel) 2 gm QID TP Last administered on 10/20/18 17:51; Admin Dose 2 GM; Start 07/22/18 at 13:00 Loratadine (Claritin) 10 mg DAILY PRN PO ALLERGIC REACTION Last administered on 08/07/18 12:48; Admin Dose 10 MG; Start 08/07/18 at 12:30 Hydralazine HCl (Apresoline) 10 mg Q6H PRN PO ELEVATED BLOOD PRESSURE Last administered on 09/14/18 02:44; Admin Dose 10 MG; Start 08/08/18 at 04:30 Hydralazine HCl (Apresoline) 25 mg TID PO Last administered on 10/21/18 14:38; Admin Dose 25 MG; Start 08/08/18 at 13:00 Eye Lubricant (Artificial Tears Oph) 2 drop QID BOTH EYES Last administered on 10/21/18 09:18; Admin Dose 2 DROP; Start 08/09/18 at 11:00 Calcium Carbonate (Tums) 500 mg PRN PRN PO HEARTBURN Last administered on 10/05/18 12:34; Admin Dose 500 MG; Start 08/09/18 at 14:30 Nystatin (Nystatin Powder) 1 applic BID TOP Last administered on 10/21/18 09:20; Admin Dose 1 APPLIC; Start 08/28/18 at 21:00 Ondansetron HCl (Zofran Tab) 4 mg Q6H PRN PO NAUSEA AND/OR VOMITING Last administered on 09/10/18 07:58; Admin Dose 4 MG; Start 09/03/18 at 16:00 Al Hydrox/Mg Hydrox/Simethicone (Mag-Al Plus) 30 ml Q4H PRN PO GASTROINTESTINAL UPSET; Start 09/10/18 at 18:00 Furosemide (Lasix) 40 mg DAILY PO Last administered on 10/21/18 09:27; Admin Dose 40 MG; Start 09/21/18 at 14:30 Carbamide Peroxide (Debrox Otic) 3 drop BID PRN BOTH EARS EAR PAIN Last administered on 10/15/18 20:39; Admin Dose 3 DROP; Start 09/24/18 at 16:00 Ondansetron HCl (Zofran Inj) 4 mg Q6H PRN IV NAUSEA AND/OR VOMITING Last admini stered on 10/15/18 06:15; Admin Dose 4 MG; Start 09/26/18 at 07:30 Gabapentin (Neurontin) 100 mg BID PRN PO NEUROPATHIC PAIN Last administered on 10/21/18 03:03; Admin Dose 100 MG; Start 09/27/18 at 21:00 Lactobacillus Acidophilus (Florajen3 Capsule) 1 each BID PO Last administered on 10/16/18 08:27; Admin Dose 1 EACH; Start 09/27/18 at 21:00 Psyllium Hydrophilic Mucilloid (Metamucil (Sugar Free)) 1 pkt BID PO Last administered on 10/16/18 08:27; Admin Dose 1 PKT; Start 09/27/18 at 21:00 Pantoprazole (Protonix Tab) 40 mg BID@06,18 PO Last administered on 10/21/18 05:41; Admin Dose 40 MG; Start 10/06/18 at 18:00 Lidocaine (Lidocaine 5% Oint) 1 applic TID TOP Last administered on 10/20/18 12:58; Admin Dose 1 APPLIC; Start 10/06/18 at 21:00 Phenyleph/Shark Oil/Min Oil/Petrol (Formulation R Oint) 1 applic PRN PRN [place] HEMORROID PAIN/ITCHING Last administered on 10/16/18 08:32; Admin Dose 1 APPLIC; Start 10/08/18 at 02:28 Lactulose (Enulose) 20 gm Q6H PRN PO constipation; Start 10/08/18 at 12:00 Docusate Sodium (Colace) 200 mg HS PO Last administered on 10/20/18 20:45; Admin Dose 200 MG; Start 10/08/18 at 21:00 Tramadol HCl (Ultram) 100 mg Q6H PRN PO PAIN LEVEL 6-10 Last administered on 10/21/18 14:37; Admin Dose 100 MG; Start 10/09/18 at 18:30 Polyethylene Glycol (Miralax) 17 gm BID NGT Last administered on 10/16/18 08:32; Admin Dose 17 GM; Start 10/10/18 at 09:00 Albumin Human 250 ml @ 250 mls/hr WITH DIALYSIS PRN IV SBP<90; Start 10/11/18 at 12:30 Sodium Chloride (NS) -To prime the dialy... DIRECTED FOR HD PRN IV SBP<90; Start 10/11/18 at 12:30 Lubiprostone (Amitiza) 24 mcg BID PO Last administered on 10/21/18 09:26; Admin Dose 24 MCG; Start 10/12/18 at 10:30 Heparin Sodium (Porcine) (Heparin (1000 Units/ml)) 4,700 unit AFTER DIALYSIS CATHETER Last administered on 10/12/18at 23:36; Admin Dose 4,700 UNIT; Start 10/12/18 at 22:30 Heparin Sodium (Porcine) (Heparin (5000 Units/1ml)) 5,000 unit BID SC Last administered on 10/21/18at 09:34; Admin Dose 5,000 UNIT; Start 10/15/18 at 13:30 WILLY MEDEIROS Oct 21, 2018 14:40
[2018-10-21] MEDS ORDERED: DICLOFENAC SODIUM 1% GEL 100 GM TUBE TP PRN (15:00)
[2018-10-21 19:35] VITALS: BP 159/74; PULSE 74; RESP 20
[2018-10-21] MEDS: DOCUSATE SODIUM 100 MG CAP PO SCH (20:50)
[2018-10-22 02:00] VITALS: BP 132/73; PULSE 77; RESP 20
[2018-10-22] MEDS: GABAPENTIN 100 MG CAP PO PRN ×2 (03:03→21:01)
[2018-10-22] MEDS: MELATONIN 3 MG TABLET PO PRN (03:03)
[2018-10-22] MEDS: traMADol 50 MG TAB PO PRN ×4 (03:04→21:01)
[2018-10-22] MEDS: LIDOCAINE 5% 35 GM OINT TOP SCH ×3 (05:23→21:00)
[2018-10-22] MEDS: PANTOPRAZOLE (EC) 40 MG TAB PO SCH ×2 (05:23→18:41)
[2018-10-22] MEDS: NYSTATIN 30 GM POWDER BTL TOP SCH ×2 (05:23→21:00)
[2018-10-22] MEDS: DICLOFENAC SODIUM 1% GEL 100 GM TUBE TP SCH ×5 (05:27→21:00)
[2018-10-22] MEDS: ARTIFICIAL TEARS 15 ML OPH BOTH EYES SCH ×6 (06:28→21:00)
[2018-10-22 07:46] VITALS: BP 164/77; PULSE 75; RESP 16
[2018-10-22] MEDS: INSULIN ASPART [NOVOLOG] 3 ML PEN SC SCH ×5 (07:50→21:00)
--- NOTE | 2018-10-22 08:00 | CONS ---
Date/Time of Note Date/Time of Note DATE: 10/22/18 TIME: 08:00 Assessment/Plan Assessment/Plan Assessment/Plan 58 yo female presents for whole body pain for which we were consulted for rectal pain 1. Rectal pain secondary to anal fissure -improved 2. Anal fissure 3. Constipation, chronic 4. GERD 5. CKD 3, now on HD, refusing HD 6. Morbid obesity with deconditioning 7. Diabetes mellitus 8. H/O CHF 9. Mild acute anemia likely due to chronic diseae -anemia work up 10. Abdominal bloating after eating per pt with nausea and vomiting -improved 11. Fatty liver Plan Continue PT Continue with bowel regimen PPI BID Sitz bath BID Weight loss Result Diagram: 10/20/18 1416 Results 24hrs Laboratory Tests Test 10/21/18 09:07 10/21/18 12:43 10/21/18 18:12 10/21/18 20:56 Bedside Glucose 181 158 124 111 Test 10/22/18 07:47 Bedside Glucose 149 Consultation Date/Type/Reason Admit Date/Time Jul 23, 2018 at 16:13 Initial Consult Date 10/06/18 24 HR Interval Summary Constitutional: no complaints, improved Exam/Review of Systems Vital Signs Vitals Vital Signs Date Temp Pulse Resp B/P (MAP) Pulse Ox O2 O2 Flow FiO2 Time Delivery Rate 10/22/18 99.1 75 16 164/77 96 Room Air 07:46 (106) Intake and Output 10/21/18 10/21/18 10/22/18 1515:00 23:00 07:00 IntakeIntake Total 640 ml 400 ml BalanceBalance 640 ml 400 ml Exam Constitutional: alert, oriented, well developed Medications Medications Current Medications Acetaminophen (Tylenol Tab) 325 mg Q4H PRN PO MILD PAIN(1-3)OR ELEVATED TEMP Last administered on 10/18/18at 09:27; Admin Dose 325 MG; Start 07/20/18 at 23:00 Allopurinol (Zyloprim) 100 mg DAILY PO Last administered on 10/21/18at 09:21; Admin Dose 100 MG; Start 07/21/18 at 09:00 IV Flush (NS 3 ml) 3 ml PER PROTOCOL IV ; Start 07/20/18 at 23:00 Acetaminophen (Tylenol Supp) 650 mg Q6H PRN [place] PAIN LEVEL 1-3 OR FEVER; Start 07/20/18 at 23:00 Bisacodyl (Dulcolax) 5 mg DAILY PRN PO CONSTIPATION Last administered on 10/20/18 09:42; Admin Dose 5 MG; Start 07/20/18 at 23:00 Insulin Aspart (Novolog Insulin Pen) NOVOLOG *MILD* ALGORITHM WITH MEALS BEDTIME SC Last administered on 10/21/18 12:46; Admin Dose 1 UNIT; Start 1 at 07:50 Ergocalciferol (Drisdol) 50,000 unit Lacy@0900 PO Last administered on 10/16/18 12:38; Admin Dose 50,000 UNIT; Start 07/24/18 at 09:00 Miscellaneous Information 1 ea NOTE XX ; Start 07/20/18 at 23:00 Dextrose (D50w Syringe) 25 ml Q15M PRN IV DECREASED GLUCOSE; Start 07/20/18 at 23:00 Dextrose (D50w Syringe) 50 ml Q15M PRN IV DECREASED GLUCOSE; Start 07/20/18 at 23:00 Melatonin (Melatonin) 3 mg HS PRN PO INSOMNIA Last administered on 10/22/18 03:03; Admin Dose 3 MG; Start 07/20/18 at 23:00 Diclofenac Sodium (Voltaren 1% Gel) 2 gm QID TP Last administered on 10/22/18 05:27; Admin Dose 2 GM; Start 07/22/18 at 13:00 Loratadine (Claritin) 10 mg DAILY PRN PO ALLERGIC REACTION Last administered on 08/07/18 12:48; Admin Dose 10 MG; Start 08/07/18 at 12:30 Hydralazine HCl (Apresoline) 10 mg Q6H PRN PO ELEVATED BLOOD PRESSURE Last administered on 09/14/18 02:44; Admin Dose 10 MG; Start 08/08/18 at 04:30 Hydralazine HCl (Apresoline) 25 mg TID PO Last administered on 10/21/18 20:50; Admin Dose 25 MG; Start 08/08/18 at 13:00 Eye Lubricant (Artificial Tears Oph) 2 drop QID BOTH EYES Last administered on 10/22/18 06:28; Admin Dose 2 DROP; Start 08/09/18 at 11:00 Calcium Carbonate (Tums) 500 mg PRN PRN PO HEARTBURN Last administered on 10/05/18 12:34; Admin Dose 500 MG; Start 08/09/18 at 14:30 Nystatin (Nystatin Powder) 1 applic BID TOP Last administered on 10/22/18 05:23; Admin Dose 1 APPLIC; Start 08/28/18 at 21:00 Ondansetron HCl (Zofran Tab) 4 mg Q6H PRN PO NAUSEA AND/OR VOMITING Last administered on 09/10/18at 07:58; Admin Dose 4 MG; Start 09/03/18 at 16:00 Al Hydrox/Mg Hydrox/Simethicone (Mag-Al Plus) 30 ml Q4H PRN PO GASTROINTESTINAL UPSET; Start 09/10/18 at 18:00 Furosemide (Lasix) 40 mg DAILY PO Last administered on 10/21/18 09:27; Admin Dose 40 MG; Start 09/21/18 at 14:30 Carbamide Peroxide (Debrox Otic) 3 drop BID PRN BOTH EARS EAR PAIN Last administered on 10/15/18 20:39; Admin Dose 3 DROP; Start 09/24/18 at 16:00 Ondansetron HCl (Zofran Inj) 4 mg Q6H PRN IV NAUSEA AND/OR VOMITING Last administered on 10/15/18 06:15; Admin Dose 4 MG; Start 09/26/18 at 07:30 Gabapentin (Neurontin) 100 mg BID PRN PO NEUROPATHIC PAIN Last administered on 10/22/18 03:03; Admin Dose 100 MG; Start 09/27/18 at 21:00 Lactobacillus Acidophilus (Florajen3 Capsule) 1 each BID PO Last administered on 10/16/18 08:27; Admin Dose 1 EACH; Start 09/27/18 at 21:00 Psyllium Hydrophilic Mucilloid (Metamucil (Sugar Free)) 1 pkt BID PO Last administered on 10/16/18 08:27; Admin Dose 1 PKT; Start 09/27/18 at 21:00 Pantoprazole (Protonix Tab) 40 mg BID@06,18 PO Last administered on 10/22/18 05:23; Admin Dose 40 MG; Start 10/06/18 at 18:00 Lidocaine (Lidocaine 5% Oint) 1 applic TID TOP Last administered on 10/22/18 05:23; Admin Dose 1 APPLIC; Start 10/06/18 at 21:00 Phenyleph/Shark Oil/Min Oil/Petrol (Formulation R Oint) 1 applic PRN PRN NV HEMORROID PAIN/ITCHING Last administered on 10/16/18 08:32; Admin Dose 1 APPLIC; Start 10/08/18 at 02:28 Lactulose (Enulose) 20 gm Q6H PRN PO constipation; Start 10/08/18 at 12:00 Docusate Sodium (Colace) 200 mg HS PO Last administered on 10/21/18at 20:50; Admin Dose 200 MG; Start 10/08/18 at 21:00 Tramadol HCl (Ultram) 100 mg Q6H PRN PO PAIN LEVEL 6-10 Last administered on 10/22/18 03:04; Admin Dose 100 MG; Start 10/09/18 at 18:30 Polyethylene Glycol (Miralax) 17 gm BID NGT Last administered on 10/16/18 08:32; Admin Dose 17 GM; Start 10/10/18 at 09:00 Albumin Human 250 ml @ 250 mls/hr WITH DIALYSIS PRN IV SBP<90; Start 10/11/18 at 12:30 Sodium Chloride (NS) -To prime the dialy... DIRECTED FOR HD PRN IV SBP<90; Start 10/11/18 at 12:30 Lubiprostone (Amitiza) 24 mcg BID PO Last administered on 10/21/18 09:26; Admin Dose 24 MCG; Start 10/12/18 at 10:30 Heparin Sodium (Porcine) (Heparin (1000 Units/ml)) 4,700 unit AFTER DIALYSIS CATHETER Last administered on 10/12/18at 23:36; Admin Dose 4,700 UNIT; Start 10/12/18 at 22:30 Heparin Sodium (Porcine) (Heparin (5000 Units/1ml)) 5,000 unit BID SC Last administered on 10/21/18 20:47; Admin Dose 5,000 UNIT; Start 10/15/18 at 13:30 Diclofenac Sodium (Voltaren 1% Gel) 2 gm QID PRN TP discomfort; Start 10/21/18 at 15:00 FROILAN GARRISON MD Oct 22, 2018 08:00
[2018-10-22] MEDS: POLYETHYLENE GLYCOL 17 GM PACKET NGT SCH ×2 (09:00→21:00)
[2018-10-22] MEDS: PSYLLIUM (SUGAR FREE) PACKET PO SCH ×2 (09:00→21:00)
[2018-10-22] MEDS: BALSAM PERU/CASTOR OIL 60 GM TUBE TOP SCH ×2 (09:00→21:00)
[2018-10-22] MEDS: L ACIDOPHIL/B LACTIS/B LONGUM CAPSULE PO SCH ×3 (09:00→21:00)
[2018-10-22] MEDS: LUBIPROSTONE 24 MCG CAP PO SCH ×2 (09:22→21:00)
[2018-10-22] MEDS: FUROSEMIDE 40 MG TAB PO SCH (09:22)
[2018-10-22] MEDS: ALLOPURINOL 100 MG TAB PO SCH (09:23)
[2018-10-22] MEDS: HEPARIN 5,000 UNIT/1 ML VIAL SC SCH ×2 (09:27→21:04)
--- NOTE | 2018-10-22 13:38 | PN ---
Date/Time of Note Date/Time of Note DATE: 10/22/18 TIME: 13:37 Assessment/Plan VTE Prophylaxis Risk score (from Ns)>0 risk: 7 SCD applied (from Ns): Yes Pharmacological prophylaxis: NA/contraindicated Pharm contraindication: bleeding Lines/Catheters IV Catheter Type (from Nrsg): Saline Lock Urinary Cath still in place: No Assessment/Plan Hospital Course 1. ckd, hyperkalemia 2. c diff hx 3. Opiates dependency 4. Morbid obesity. 5. Diabetes. 6. Hypertension, 7. Gout, hx 8. Neuropathy. 9. History of congestive heart failure. 10. weakness 11. deconditioning 12. Non compliance, pt refused [place], HD 13. Left shoulder chronic pain. Xray was reviewed from the last visit, it is arthrosis left acromioclavicular joint 14. constipation 15. UTI 16. right arm Picc line is not functioning Assessment/Plan - 24 hr urine studies for Cr Clearence after HD, pt refusing collection, is not using bed monterroso/ dunbar , wants to use diapers so cannot get 24 HR urine collection for Cr clearence unfortunately will have to do HD prn/weekly basis, very difficult patient not coperative with any intervention - pt non cooperative - calorie count - PPI BID -stool softeners - Lactobacillus - Physical therapy PER PT - low k diet, cw lasix -Tylenol on as needed headache - HD once a week -arrange for SNF with HD placement,pt already discharged, Spoke to CM , still no placement Result Diagram: 10/20/18 1416 Results 24hrs Laboratory Tests Test 10/21/18 18:12 10/21/18 20:56 10/22/18 07:47 10/22/18 12:51 Bedside Glucose 124 111 149 158 Subjective 24 Hr Interval Summary Musculoskeletal: restricted range of motion (unable to walk) Exam/Review of Systems Vital Signs Vitals Vital Signs Date Temp Pulse Resp B/P (MAP) Pulse Ox O2 O2 Flow FiO2 Time Delivery Rate 10/22/18 99.1 75 16 164/77 96 Room Air 07:46 (106) Intake and Output 10/21/18 10/21/18 10/22/18 1515:00 23:00 07:00 IntakeIntake Total 640 ml 400 ml BalanceBalance 640 ml 400 ml Exam left chest HD perm cath Constitutional: alert, oriented Neck: supple Respiratory: clear to auscultation Cardiovascular: regular rate and rhythm Medications Medications Current Medications Acetaminophen (Tylenol Tab) 325 mg Q4H PRN PO MILD PAIN(1-3)OR ELEVATED TEMP Last administered on 10/18/18 09:27; Admin Dose 325 MG; Start 07/20/18 at 23:00 Allopurinol (Zyloprim) 100 mg DAILY PO Last administered on 10/22/18 09:23; Admin Dose 100 MG; Start 07/21/18 at 09:00 IV Flush (NS 3 ml) 3 ml PER PROTOCOL IV ; Start 07/20/18 at 23:00 Acetaminophen (Tylenol Supp) 650 mg Q6H PRN [place] PAIN LEVEL 1-3 OR FEVER; Start 07/20/18 at 23:00 Bisacodyl (Dulcolax) 5 mg DAILY PRN PO CONSTIPATION Last administered on 10/20/18 09:42; Admin Dose 5 MG; Start 07/20/18 at 23:00 Insulin Aspart (Novolog Insulin Pen) NOVOLOG *MILD* ALGORITHM WITH MEALS BEDTIME SC Last administered on 10/21/18 12:46; Admin Dose 1 UNIT; Start 07/21/18 at 07:50 Ergocalciferol (Drisdol) 50,000 unit Lacy@0900 PO Last administered on 10/16/18 12:38; Admin Dose 50,000 UNIT; Start 07/24/18 at 09:00 Miscellaneous Information 1 ea NOTE XX ; Start 07/20/18 at 23:00 Dextrose (D50w Syringe) 25 ml Q15M PRN IV DECREASED GLUCOSE; Start 07/20/18 at 23:00 Dextrose (D50w Syringe) 50 ml Q15M PRN IV DECREASED GLUCOSE; Start 07/20/18 at 23:00 Melatonin (Melatonin) 3 mg HS PRN PO INSOMNIA Last administered on 10/22/18 03:03; Admin Dose 3 MG; Start 07/20/18 at 23:00 Diclofenac Sodium (Voltaren 1% Gel) 2 gm QID TP Last administered on 10/22/18 05:27; Admin Dose 2 GM; Start 07/22/18 at 13:00 Loratadine (Claritin) 10 mg DAILY PRN PO ALLERGIC REACTION Last administered on 11/4/18at 12:48; Admin Dose 10 MG; Start 08/07/18 at 12:30 Hydralazine HCl (Apresoline) 10 mg Q6H PRN PO ELEVATED BLOOD PRESSURE Last administered on 09/14/18at 02:44; Admin Dose 10 MG; Start 08/08/18 at 04:30 Hydralazine HCl (Apresoline) 25 mg TID PO Last administered on 10/22/18 09:22; Admin Dose 25 MG; Start 08/08/18 at 13:00 Eye Lubricant (Artificial Tears Oph) 2 drop QID BOTH EYES Last administered on 10/22/18 09:19; Admin Dose 2 DROP; Start 08/09/18 at 11:00 Calcium Carbonate (Tums) 500 mg PRN PRN PO HEARTBURN Last administered on 12:34; Admin Dose 500 MG; Start 08/09/18 at 14:30 Nystatin (Nystatin Powder) 1 applic BID TOP Last administered on 10/22/18 05:23; Admin Dose 1 APPLIC; Start 08/28/18 at 21:00 Ondansetron HCl (Zofran Tab) 4 mg Q6H PRN PO NAUSEA AND/OR VOMITING Last administered on 09/10/18at 07:58; Admin Dose 4 MG; Start 09/03/18 at 16:00 Al Hydrox/Mg Hydrox/Simethicone (Mag-Al Plus) 30 ml Q4H PRN PO GASTROINTESTINAL UPSET; Start 09/10/18 at 18:00 Furosemide (Lasix) 40 mg DAILY PO Last administered on 10/22/18 09:22; Admin Dose 40 MG; Start 09/21/18 at 14:30 Carbamide Peroxide (Debrox Otic) 3 drop BID PRN BOTH EARS EAR PAIN Last administered on 10/15/18 20:39; Admin Dose 3 DROP; Start 09/24/18 at 16:00 Ondansetron HCl (Zofran Inj) 4 mg Q6H PRN IV NAUSEA AND/OR VOMITING Last administered on 10/15/18 06:15; Admin Dose 4 MG; Start 09/26/18 at 07:30 Gabapentin (Neurontin) 100 mg BID PRN PO NEUROPATHIC PAIN Last administered on 10/22/18 03:03; Admin Dose 100 MG; Start 09/27/18 at 21:00 Lactobacillus Acidophilus (Florajen3 Capsule) 1 each BID PO Last administered on 10/16/18 08:27; Admin Dose 1 EACH; Start 09/27/18 at 21:00 Psyllium Hydrophilic Mucilloid (Metamucil (Sugar Free)) 1 pkt BID PO Last administered on 10/16/18 08:27; Admin Dose 1 PKT; Start 09/27/18 at 21:00 Pantoprazole (Protonix Tab) 40 mg BID@06,18 PO Last administered on 10/22/18 05:23; Admin Dose 40 MG; Start 10/06/18 at 18:00 Lidocaine (Lidocaine 5% Oint) 1 applic TID TOP Last administered on 10/22/18 05:23; Admin Dose 1 APPLIC; Start 10/06/18 at 21:00 Phenyleph/Shark Oil/Min Oil/Petrol (Formulation R Oint) 1 applic PRN PRN [place] HEMORROID PAIN/ITCHING Last administered on 10/16/18 08:32; Admin Dose 1 APPLIC; Start 10/08/18 at 02:28 Lactulose (Enulose) 20 gm Q6H PRN PO constipation; Start 10/08/18 at 12:00 Docusate Sodium (Colace) 200 mg HS PO Last administered on 10/21/18 20:50; Admin Dose 200 MG; Start 10/08/18 at 21:00 Tramadol HCl (Ultram) 100 mg Q6H PRN PO PAIN LEVEL 6-10 Last administered on 10/22/18 09:30; Admin Dose 100 MG; Start 10/09/18 at 18:30 Polyethylene Glycol (Miralax) 17 gm BID NGT Last administered on 10/16/18 08:32; Admin Dose 17 GM; Start 10/10/18 at 09:00 Albumin Human 250 ml @ 250 mls/hr WITH DIALYSIS PRN IV SBP<90; Start 10/11/18 at 12:30 Sodium Chloride (NS) -To prime the dialy... DIRECTED FOR HD PRN IV SBP<90; Start 10/11/18 at 12:30 Lubiprostone (Amitiza) 24 mcg BID PO Last administered on 10/22/18 09:22; Admin Dose 24 MCG; Start 10/12/18 at 10:30 Heparin Sodium (Porcine) (Heparin (1000 Units/ml)) 4,700 unit AFTER DIALYSIS CATHETER Last administered on 10/12/18at 23:36; Admin Dose 4,700 UNIT; Start 10/12/18 at 22:30 Heparin Sodium (Porcine) (Heparin (5000 Units/1ml)) 5,000 unit BID SC Last administered on 10/22/18at 09:27; Admin Dose 5,000 UNIT; Start 10/15/18 at 13:30 Diclofenac Sodium (Voltaren 1% Gel) 2 gm QID PRN TP discomfort; Start 10/21/18 at 15:00 WILLY MEDEIROS Oct 22, 2018 13:38
[2018-10-22 13:48] VITALS: BP 132/62; PULSE 77; RESP 18
[2018-10-22 18:45] VITALS: BP 153/72; PULSE 74; RESP 18
[2018-10-22 19:30] VITALS: BP 153/72; PULSE 74; RESP 20
[2018-10-22] MEDS ORDERED: ALTEPLASE (CATHFLO) 2 MG INJ CATHETER STA (19:35)
[2018-10-22 20:45] VITALS: BP 150/73; PULSE 75; RESP 18
[2018-10-22] MEDS: DOCUSATE SODIUM 100 MG CAP PO SCH (21:01)
[2018-10-23 02:30] VITALS: BP 141/87; PULSE 75; RESP 20
[2018-10-23] MEDS: PANTOPRAZOLE (EC) 40 MG TAB PO SCH ×2 (04:55→17:46)
[2018-10-23] MEDS: MELATONIN 3 MG TABLET PO PRN (04:55)
[2018-10-23] MEDS: POLYETHYLENE GLYCOL 17 GM PACKET NGT SCH ×2 (08:31→20:47)
[2018-10-23] MEDS: ARTIFICIAL TEARS 15 ML OPH BOTH EYES SCH ×4 (08:31→20:47)
[2018-10-23] MEDS: PSYLLIUM (SUGAR FREE) PACKET PO SCH ×2 (08:32→20:48)
[2018-10-23] MEDS: L ACIDOPHIL/B LACTIS/B LONGUM CAPSULE PO SCH ×2 (08:32→20:48)
[2018-10-23 08:33] VITALS: BP 137/91; PULSE 40; RESP 16
[2018-10-23] MEDS: ERGOCALCIFEROL 50,000 UNIT CAP PO SCH (08:34)
[2018-10-23] MEDS: ALLOPURINOL 100 MG TAB PO SCH (08:34)
[2018-10-23] MEDS: LUBIPROSTONE 24 MCG CAP PO SCH ×2 (08:34→21:00)
[2018-10-23] MEDS: FUROSEMIDE 40 MG TAB PO SCH (08:35)
[2018-10-23] MEDS: HEPARIN 5,000 UNIT/1 ML VIAL SC SCH ×2 (08:37→20:57)
[2018-10-23] MEDS: INSULIN ASPART [NOVOLOG] 3 ML PEN SC SCH ×4 (08:37→20:58)
[2018-10-23] MEDS: traMADol 50 MG TAB PO PRN ×3 (08:40→20:46)
[2018-10-23] MEDS: LIDOCAINE 5% 35 GM OINT TOP SCH ×3 (08:41→20:48)
[2018-10-23] MEDS: NYSTATIN 30 GM POWDER BTL TOP SCH ×2 (08:41→20:48)
[2018-10-23] MEDS: BALSAM PERU/CASTOR OIL 60 GM TUBE TOP SCH ×2 (08:41→20:48)
[2018-10-23] MEDS: DICLOFENAC SODIUM 1% GEL 100 GM TUBE TP SCH ×4 (08:41→20:48)
--- NOTE | 2018-10-23 11:46 | CONS ---
Date/Time of Note Date/Time of Note DATE: 10/23/18 TIME: 11:44 Assessment/Plan Assessment/Plan Hospital Course 58 yo female presents for whole body pain for which we were consulted for rectal pain 1. Rectal pain secondary to anal fissure -improved 2. Anal fissure 3. Constipation, chronic 4. GERD 5. CKD 3, now on HD, refusing HD 6. Morbid obesity with deconditioning 7. Diabetes mellitus 8. H/O CHF 9. Mild acute anemia likely due to chronic diseae -anemia work up 10. Abdominal bloating after eating per pt with nausea and vomiting -improved 11. Fatty liver Plan Continue with current care Continue PT Continue with bowel regimen Pt examined and plan of care discussed with Dr. Alvarado Result Diagram: 10/20/18 1416 Results 24hrs Laboratory Tests Test 10/22/18 12:51 10/22/18 18:24 10/22/18 20:38 10/23/18 08:30 Bedside Glucose 158 173 157 159 Consultation Date/Type/Reason Admit Date/Time Jul 23, 2018 at 16:13 Initial Consult Date 10/06/18 24 HR Interval Summary Free Text/Dictation WBC going up, positive UA for UTI. Denies rectal pain, abd bloating and pain improved. BM qd Exam/Review of Systems Vital Signs Vitals Vital Signs Date Temp Pulse Resp B/P (MAP) Pulse Ox O2 O2 Flow FiO2 Time Delivery Rate 10/23/18 98.7 40 16 137/91 98 Room Air 08:33 (106) Intake and Output 10/22/18 10/22/18 10/23/18 1515:00 23:00 07:00 IntakeIntake Total 920 ml 540 ml 300 ml BalanceBalance 920 ml 540 ml 300 ml Exam Constitutional: alert, oriented Head: normocephalic Eyes: PERRL Respiratory: diminished breath sounds Gastrointestinal: soft, non-tender, other (obese) Neurological: nl mental status Medications Medications Current Medications Acetaminophen (Tylenol Tab) 325 mg Q4H PRN PO MILD PAIN(1-3)OR ELEVATED TEMP Last administered on 10/18/18at 09:27; Admin Dose 325 MG; Start 07/20/18 at 23:00 Allopurinol (Zyloprim) 100 mg DAILY PO Last administered on 10/23/18at 08:34; Admin Dose 100 MG; Start 07/21/18 at 09:00 IV Flush (NS 3 ml) 3 ml PER PROTOCOL IV ; Start 07/20/18 at 23:00 Acetaminophen (Tylenol Supp) 650 mg Q6H PRN [place] PAIN LEVEL 1-3 OR FEVER; Start 07/20/18 at 23:00 Bisacodyl (Dulcolax) 5 mg DAILY PRN PO CONSTIPATION Last administered on 10/20/18 09:42; Admin Dose 5 MG; Start 07/20/18 at 23:00 Insulin Aspart (Novolog Insulin Pen) NOVOLOG *MILD* ALGORITHM WITH MEALS BEDTIME SC Last administered on 10/23/18 08:37; Admin Dose 1 UNIT; Start 07/21/18 at 07:50 Ergocalciferol (Drisdol) 50,000 unit Lacy@0900 PO Last administered on 10/23/18 08:34; Admin Dose 50,000 UNIT; Start 07/24/18 at 09:00 Miscellaneous Information 1 ea NOTE XX ; Start 07/20/18 at 23:00 Dextrose (D50w Syringe) 25 ml Q15M PRN IV DECREASED GLUCOSE; Start 07/20/18 at 23:00 Dextrose (D50w Syringe) 50 ml Q15M PRN IV DECREASED GLUCOSE; Start 07/20/18 at 23:00 Melatonin (Melatonin) 3 mg HS PRN PO INSOMNIA Last administered on 10/23/18 04:55; Admin Dose 3 MG; Start 07/20/18 at 23:00 Diclofenac Sodium (Voltaren 1% Gel) 2 gm QID TP Last administered on 10/22/18 05:27; Admin Dose 2 GM; Start 07/22/18 at 13:00 Loratadine (Claritin) 10 mg DAILY PRN PO ALLERGIC REACTION Last administered on 08/07/18 12:48; Admin Dose 10 MG; Start 08/07/18 at 12:30 Hydralazine HCl (Apresoline) 10 mg Q6H PRN PO ELEVATED BLOOD PRESSURE Last administered on 09/14/18 02:44; Admin Dose 10 MG; Start 08/08/18 at 04:30 Hydralazine HCl (Apresoline) 25 mg TID PO Last administered on 10/23/18 08:35; Admin Dose 25 MG; Start 08/08/18 at 13:00 Eye Lubricant (Artificial Tears Oph) 2 drop QID BOTH EYES Last administered on 10/22/18 09:19; Admin Dose 2 DROP; Start 08/09/18 at 11:00 Calcium Carbonate (Tums) 500 mg PRN PRN PO HEARTBURN Last administered on 10/05/18 12:34; Admin Dose 500 MG; Start 08/09/18 at 14:30 Nystatin (Nystatin Powder) 1 applic BID TOP Last administered on 10/22/18 05:23; Admin Dose 1 APPLIC; Start 08/28/18 at 21:00 Ondansetron HCl (Zofran Tab) 4 mg Q6H PRN PO NAUSEA AND/OR VOMITING Last administered on 09/10/18 07:58; Admin Dose 4 MG; Start 09/03/18 at 16:00 Al Hydrox/Mg Hydrox/Simethicone (Mag-Al Plus) 30 ml Q4H PRN PO GASTROINTESTINAL UPSET; Start 09/10/18 at 18:00 Furosemide (Lasix) 40 mg DAILY PO Last administered on 10/23/18 08:35; Admin Dose 40 MG; Start 09/21/18 at 14:30 Carbamide Peroxide (Debrox Otic) 3 drop BID PRN BOTH EARS EAR PAIN Last administered on 10/15/18 20:39; Admin Dose 3 DROP; Start 09/24/18 at 16:00 Ondansetron HCl (Zofran Inj) 4 mg Q6H PRN IV NAUSEA AND/OR VOMITING Last administered on 10/15/18 06:15; Admin Dose 4 MG; Start 09/26/18 at 07:30 Gabapentin (Neurontin) 100 mg BID PRN PO NEUROPATHIC PAIN Last administered on 10/22/18 21:01; Admin Dose 100 MG; Start 09/27/18 at 21:00 Lactobacillus Acidophilus (Florajen3 Capsule) 1 each BID PO Last administered on 10/16/18 08:27; Admin Dose 1 EACH; Start 09/27/18 at 21:00 Psyllium Hydrophilic Mucilloid (Metamucil (Sugar Free)) 1 pkt BID PO Last administered on 10/16/18 08:27; Admin Dose 1 PKT; Start 09/27/18 at 21:00 Pantoprazole (Protonix Tab) 40 mg BID@18 PO Last administered on 10/23/18 04:55; Admin Dose 40 MG; Start 10/06/18 at 18:00 Lidocaine (Lidocaine 5% Oint) 1 applic TID TOP Last administered on 10/22/18 05:23; Admin Dose 1 APPLIC; Start 10/06/18 at 21:00 Phenyleph/Shark Oil/Min Oil/Petrol (Formulation R Oint) 1 applic PRN PRN [place] HEMORROID PAIN/ITCHING Last administered on 10/16/18 08:32; Admin Dose 1 APPLIC; Start 10/08/18 at 02:28 Lactulose (Enulose) 20 gm Q6H PRN PO constipation; Start 10/08/18 at 12:00 Docusate Sodium (Colace) 200 mg HS PO Last administered on 10/22/18 21:01; Admin Dose 200 MG; Start 10/08/18 at 21:00 Tramadol HCl (Ultram) 100 mg Q6H PRN PO PAIN LEVEL 6-10 Last administered on 10/23/18 08:40; Admin Dose 100 MG; Start 10/09/18 at 18:30 Polyethylene Glycol (Miralax) 17 gm BID NGT Last administered on 10/16/18 08:32; Admin Dose 17 GM; Start 10/10/18 at 09:00 Albumin Human 250 ml @ 250 mls/hr WITH DIALYSIS PRN IV SBP<90; Start 10/11/18 at 12:30 Sodium Chloride (NS) -To prime the dialy... DIRECTED FOR HD PRN IV SBP<90; Start 10/11/18 at 12:30 Lubiprostone (Amitiza) 24 mcg BID PO Last administered on 10/23/18 08:34; Admin Dose 24 MCG; Start 10/12/18 at 10:30 Heparin Sodium (Porcine) (Heparin (1000 Units/ml)) 4,700 unit AFTER DIALYSIS CATHETER Last administered on 10/12/18 23:36; Admin Dose 4,700 UNIT; Start 10/12/18 at 22:30 Heparin Sodium (Porcine) (Heparin (5000 Units/1ml)) 5,000 unit BID SC Last administered on 10/23/18 08:37; Admin Dose 5,000 UNIT; Start 10/15/18 at 13:30 Diclofenac Sodium (Voltaren 1% Gel) 2 gm QID PRN TP discomfort; Start 10/21/18 at 15:00 CHARLIE STRAUSS Oct 23, 2018 11:46
--- NOTE | 2018-10-23 12:19 | PN ---
Date/Time of Note Date/Time of Note DATE: 10/23/18 TIME: 12:17 Assessment/Plan VTE Prophylaxis Risk score (from Ns)>0 risk: 5 SCD applied (from Ns): No SCD contraindicated: other Pharmacological prophylaxis: LMWH Lines/Catheters IV Catheter Type (from Nrs): Saline Lock Urinary Cath still in place: No Assessment/Plan Hospital Course 1. ckd, hyperkalemia 2. c diff hx 3. Opiates dependency 4. Morbid obesity. 5. Diabetes. 6. Hypertension, 7. Gout, hx 8. Neuropathy. 9. History of congestive heart failure. 10. weakness 11. deconditioning 12. Non compliance, pt refused [place], HD 13. Left shoulder chronic pain. Xray was reviewed from the last visit, it is arthrosis left acromioclavicular joint 14. constipation 15. UTI 16. right arm Picc line is not functioning Assessment/Plan - very difficult patient, not cooperative with any intervention -refused Physical assessment -HD yesterday was not successful. -HD nurse aware to finish today - pt non cooperative - calorie count - PPI BID -stool softeners - Lactobacillus - Physical therapy PER PT - low k diet, cw lasix -Tylenol on as needed headache - HD once a week -arrange for SNF with HD placement,pt already discharged, Spoke to , still no placement Result Diagram: 10/20/18 1416 Results 24hrs Laboratory Tests Test 10/22/18 12:51 10/22/18 18:24 10/22/18 20:38 10/23/18 08:30 Bedside Glucose 158 173 157 159 Subjective 24 Hr Interval Summary Constitutional: no complaints Exam/Review of Systems Vital Signs Vitals Vital Signs Date Temp Pulse Resp B/P (MAP) Pulse Ox O2 O2 Flow FiO2 Time Delivery Rate 10/23/18 98.7 40 16 137/91 98 Room Air 08:33 (106) Intake and Output 10/22/18 10/22/18 10/23/18 1414:59 22:59 06:59 IntakeIntake Total 920 ml 540 ml 300 ml BalanceBalance 920 ml 540 ml 300 ml Exam pt refused medical exam Constitutional: alert, oriented Psych: nl mood/affect Head: normocephalic Eyes: nl conjunctiva Gastrointestinal: distended Medications Medications Current Medications Acetaminophen (Tylenol Tab) 325 mg Q4H PRN PO MILD PAIN(1-3)OR ELEVATED TEMP Last administered on 10/18/18 09:27; Admin Dose 325 MG; Start 07/20/18 at 23: 00 Allopurinol (Zyloprim) 100 mg DAILY PO Last administered on 10/23/18 08:34; Admin Dose 100 MG; Start 07/21/18 at 09:00 IV Flush (NS 3 ml) 3 ml PER PROTOCOL IV ; Start 07/20/18 at 23:00 Acetaminophen (Tylenol Supp) 650 mg Q6H PRN IN PAIN LEVEL 1-3 OR FEVER; Start 07/20/18 at 23:00 Bisacodyl (Dulcolax) 5 mg DAILY PRN PO CONSTIPATION Last administered on 10/20/18 09:42; Admin Dose 5 MG; Start 07/20/18 at 23:00 Insulin Aspart (Novolog Insulin Pen) NOVOLOG *MILD* ALGORITHM WITH MEALS BED TIME SC Last administered on 10/23/18 08:37; Admin Dose 1 UNIT; Start 07/21/18 at 07:50 Ergocalciferol (Drisdol) 50,000 unit Lacy@0900 PO Last administered on 10/23/18 08:34; Admin Dose 50,000 UNIT; Start 07/24/18 at 09:00 Miscellaneous Information 1 ea NOTE XX ; Start 07/20/18 at 23:00 Dextrose (D50w Syringe) 25 ml Q15M PRN IV DECREASED GLUCOSE; Start 07/20/18 at 23:00 Dextrose (D50w Syringe) 50 ml Q15M PRN IV DECREASED GLUCOSE; Start 07/20/18 at 23:00 Melatonin (Melatonin) 3 mg HS PRN PO INSOMNIA Last administered on 10/23/18 04:55; Admin Dose 3 MG; Start 07/20/18 at 23:00 Diclofenac Sodium (Voltaren 1% Gel) 2 gm QID TP Last administered on 10/22/18 05:27; Admin Dose 2 GM; Start 07/22/18 at 13:00 Loratadine (Claritin) 10 mg DAILY PRN PO ALLERGIC REACTION Last administered on 08/07/18at 12:48; Admin Dose 10 MG; Start 08/07/18 at 12:30 Hydralazine HCl (Apresoline) 10 mg Q6H PRN PO ELEVATED BLOOD PRESSURE Last administered on 09/14/18 02:44; Admin Dose 10 MG; Start 08/08/18 at 04:30 Hydralazine HCl (Apresoline) 25 mg TID PO Last administered on 10/23/18 08:35; Admin Dose 25 MG; Start 08/08/18 at 13:00 Eye Lubricant (Artificial Tears Oph) 2 drop QID BOTH EYES Last administered on 10/22/18 09:19; Admin Dose 2 DROP; Start 08/09/18 at 11:00 Calcium Carbonate (Tums) 500 mg PRN PRN PO HEARTBURN Last administered on 10/05/18 12:34; Admin Dose 500 MG; Start 08/09/18 at 14:30 Nystatin (Nystatin Powder) 1 applic BID TOP Last administered on 10/22/18 05:23; Admin Dose 1 APPLIC; Start 08/28/18 at 21:00 Ondansetron HCl (Zofran Tab) 4 mg Q6H PRN PO NAUSEA AND/OR VOMITING Last administered on 09/10/18 07:58; Admin Dose 4 MG; Start 09/03/18 at 16:00 Al Hydrox/Mg Hydrox/Simethicone (Mag-Al Plus) 30 ml Q4H PRN PO GASTROINTESTINAL UPSET; Start 09/10/18 at 18:00 Furosemide (Lasix) 40 mg DAILY PO Last administered on 10/23/18 08:35; Admin Dose 40 MG; Start 09/21/18 at 14:30 Carbamide Peroxide (Debrox Otic) 3 drop BID PRN BOTH EARS EAR PAIN Last administered on 10/15/18 20:39; Admin Dose 3 DROP; Start 09/24/18 at 16:00 Ondansetron HCl (Zofran Inj) 4 mg Q6H PRN IV NAUSEA AND/OR VOMITING Last administered on 10/15/18 06:15; Admin Dose 4 MG; Start 09/26/18 at 07:30 Gabapentin (Neurontin) 100 mg BID PRN PO NEUROPATHIC PAIN Last administered on 10/22/18 21:01; Admin Dose 100 MG; Start 09/27/18 at 21:00 Lactobacillus Acidophilus (Florajen3 Capsule) 1 each BID PO Last administered on 10/16/18 08:27; Admin Dose 1 EACH; Start 09/27/18 at 21:00 Psyllium Hydrophilic Mucilloid (Metamucil (Sugar Free)) 1 pkt BID PO Last administered on 10/16/18 08:27; Admin Dose 1 PKT; Start 09/27/18 at 21:00 Pantoprazole (Protonix Tab) 40 mg BID@06,18 PO Last administered on 10/23/18 04:55; Admin Dose 40 MG; Start 10/06/18 at 18:00 Lidocaine (Lidocaine 5% Oint) 1 applic TID TOP Last administered on 10/22/18 05:23; Admin Dose 1 APPLIC; Start 10/06/18 at 21:00 Phenyleph/Shark Oil/Min Oil/Petrol (Formulation R Oint) 1 applic PRN PRN IN HEMORROID PAIN/ITCHING Last administered on 10/16/18 08:32; Admin Dose 1 APPLIC; Start 10/08/18 at 02:28 Lactulose (Enulose) 20 gm Q6H PRN PO constipation; Start 10/08/18 at 12:00 Docusate Sodium (Colace) 200 mg HS PO Last administered on 10/22/18 21:01; Admin Dose 200 MG; Start 10/08/18 at 21:00 Tramadol HCl (Ultram) 100 mg Q6H PRN PO PAIN LEVEL 6-10 Last administered on 10/23/18 08:40; Admin Dose 100 MG; Start 10/09/18 at 18:30 Polyethylene Glycol (Miralax) 17 gm BID NGT Last administered on 10/16/18 08: 32; Admin Dose 17 GM; Start 10/10/18 at 09:00 Albumin Human 250 ml @ 250 mls/hr WITH DIALYSIS PRN IV SBP<90; Start 10/11/18 at 12:30 Sodium Chloride (NS) -To prime the dialy... DIRECTED FOR HD PRN IV SBP<90; Start 10/11/18 at 12:30 Lubiprostone (Amitiza) 24 mcg BID PO Last administered on 10/23/18 08:34; Admin Dose 24 MCG; Start 10/12/18 at 10:30 Heparin Sodium (Porcine) (Heparin (1000 Units/ml)) 4,700 unit AFTER DIALYSIS CATHETER Last administered on 10/12/18at 23:36; Admin Dose 4,700 UNIT; Start 10/12/18 at 22:30 Heparin Sodium (Porcine) (Heparin (5000 Units/1ml)) 5,000 unit BID SC Last administered on 10/23/18at 08:37; Admin Dose 5,000 UNIT; Start 10/15/18 at 13:30 Diclofenac Sodium (Voltaren 1% Gel) 2 gm QID PRN TP discomfort; Start 10/21/18 at 15:00 WILLY MEDEIROS Oct 23, 2018 12:19
[2018-10-23] MEDS: GABAPENTIN 100 MG CAP PO PRN (13:39)
[2018-10-23] MEDS ORDERED: LOPERAMIDE HCL 1 MG/5 ML LIQUID (10 ML UD CUP) GTB PRN (15:30)
[2018-10-23] MEDS ORDERED: LOPERAMIDE 2 MG CAP PO PRN (18:30)
[2018-10-23 19:51] VITALS: BP 136/79; PULSE 83; RESP 16
[2018-10-23] MEDS: DOCUSATE SODIUM 100 MG CAP PO SCH (20:48)
[2018-10-24] MEDS: traMADol 50 MG TAB PO PRN ×4 (01:53→20:56)
[2018-10-24] MEDS: MELATONIN 3 MG TABLET PO PRN (01:53)
[2018-10-24 02:02] VITALS: BP 157/88; PULSE 73; RESP 16
[2018-10-24] MEDS: PANTOPRAZOLE (EC) 40 MG TAB PO SCH ×2 (05:39→18:12)
--- NOTE | 2018-10-24 08:36 | CONS ---
Date/Time of Note Date/Time of Note DATE: 10/24/18 TIME: 08:35 Assessment/Plan Assessment/Plan Hospital Course 58 yo female presents for whole body pain for which we were consulted for rectal pain 1. Rectal pain secondary to anal fissure -resolved 2. Anal fissure 3. Constipation, chronic 4. GERD 5. CKD 3, now on HD, refusing HD 6. Morbid obesity with deconditioning 7. Diabetes mellitus 8. H/O CHF 9. Mild acute anemia likely due to chronic diseae -anemia work up 10. Abdominal bloating after eating per pt with nausea and vomiting -improved 11. Fatty liver Plan Continue with current care Continue PT Continue with bowel regimen Pt examined and plan of care discussed with Dr. Alvarado Result Diagram: 10/20/18 1416 Results 24hrs Laboratory Tests Test 10/23/18 12:58 10/23/18 17:45 10/23/18 20:53 Bedside Glucose 131 211 191 Consultation Date/Type/Reason Admit Date/Time Jul 23, 2018 at 16:13 Initial Consult Date 10/06/18 24 HR Interval Summary Free Text/Dictation no acute changes. no rectal pain. no abd pain. no n/v Exam/Review of Systems Vital Signs Vitals Vital Signs Date Temp Pulse Resp B/P (MAP) Pulse Ox O2 O2 Flow FiO2 Time Delivery Rate 10/24/18 98.5 73 16 157/88 97 Room Air 02:02 (111) Intake and Output 10/23/18 10/23/18 10/24/18 1515:00 23:00 07:00 IntakeIntake Total 500 ml 200 ml 240 ml BalanceBalance 500 ml 200 ml 240 ml Exam Constitutional: alert, oriented Gastrointestinal: soft, non-tender Medications Medications Current Medications Acetaminophen (Tylenol Tab) 325 mg Q4H PRN PO MILD PAIN(1-3)OR ELEVATED TEMP Last administered on 10/18/18at 09:27; Admin Dose 325 MG; Start 07/20/18 at 23:00 Allopurinol (Zyloprim) 100 mg DAILY PO Last administered on 10/23/18at 08:34; Admin Dose 100 MG; Start 07/21/18 at 09:00 IV Flush (NS 3 ml) 3 ml PER PROTOCOL IV ; Start 07/20/18 at 23:00 Acetaminophen (Tylenol Supp) 650 mg Q6H PRN [place] PAIN LEVEL 1-3 OR FEVER; Start 07/20/18 at 23:00 Bisacodyl (Dulcolax) 5 mg DAILY PRN PO CONSTIPATION Last administered on 10/20/18 09:42; Admin Dose 5 MG; Start 07/20/18 at 23:00 Insulin Aspart (Novolog Insulin Pen) NOVOLOG *MILD* ALGORITHM WITH MEALS BEDTIME SC Last administered on 10/23/18 20:58; Admin Dose 1 UNIT; Start 07/21/18 at 07:50 Ergocalciferol (Drisdol) 50,000 unit Lacy@0900 PO Last administered on 10/23/18 08:34; Admin Dose 50,000 UNIT; Start 07/24/18 at 09:00 Miscellaneous Information 1 ea NOTE XX ; Start 07/20/18 at 23:00 Dextrose (D50w Syringe) 25 ml Q15M PRN IV DECREASED GLUCOSE; Start 07/20/18 at 23:00 Dextrose (D50w Syringe) 50 ml Q15M PRN IV DECREASED GLUCOSE; Start 07/20/18 at 23:00 Melatonin (Melatonin) 3 mg HS PRN PO INSOMNIA Last administered on 10/24/18 01:53; Admin Dose 3 MG; Start 07/20/18 at 23:00 Diclofenac Sodium (Voltaren 1% Gel) 2 gm QID TP Last administered on 10/22/18 05:27; Admin Dose 2 GM; Start 07/22/18 at 13:00 Loratadine (Claritin) 10 mg DAILY PRN PO ALLERGIC REACTION Last administered on 08/07/18 12:48; Admin Dose 10 MG; Start 08/07/18 at 12:30 Hydralazine HCl (Apresoline) 10 mg Q6H PRN PO ELEVATED BLOOD PRESSURE Last administered on 09/14/18 02:44; Admin Dose 10 MG; Start 08/08/18 at 04:30 Hydralazine HCl (Apresoline) 25 mg TID PO Last administered on 10/23/18 20:47; Admin Dose 25 MG; Start 08/08/18 at 13:00 Eye Lubricant (Artificial Tears Oph) 2 drop QID BOTH EYES Last administered on 10/22/18 09:19; Admin Dose 2 DROP; Start 08/09/18 at 11:00 Calcium Carbonate (Tums) 500 mg PRN PRN PO HEARTBURN Last administered on 10/05/18 12:34; Admin Dose 500 MG; Start 08/09/18 at 14:30 Nystatin (Nystatin Powder) 1 applic BID TOP Last administered on 10/22/18 05:23; Admin Dose 1 APPLIC; Start 08/28/18 at 21:00 Ondansetron HCl (Zofran Tab) 4 mg Q6H PRN PO NAUSEA AND/OR VOMITING Last administered on 09/10/18at 07:58; Admin Dose 4 MG; Start 09/03/18 at 16:00 Al Hydrox/Mg Hydrox/Simethicone (Mag-Al Plus) 30 ml Q4H PRN PO GASTROINTESTINAL UPSET; Start 09/10/18 at 18:00 Furosemide (Lasix) 40 mg DAILY PO Last administered on 10/23/18 08:35; Admin Dose 40 MG; Start 09/21/18 at 14:30 Carbamide Peroxide (Debrox Otic) 3 drop BID PRN BOTH EARS EAR PAIN Last administered on 10/15/18 20:39; Admin Dose 3 DROP; Start 09/24/18 at 16:00 Ondansetron HCl (Zofran Inj) 4 mg Q6H PRN IV NAUSEA AND/OR VOMITING Last administered on 10/15/18 06:15; Admin Dose 4 MG; Start 09/26/18 at 07:30 Gabapentin (Neurontin) 100 mg BID PRN PO NEUROPATHIC PAIN Last administered on 10/23/18 13:39; Admin Dose 100 MG; Start 09/27/18 at 21:00 Lactobacillus Acidophilus (Florajen3 Capsule) 1 each BID PO Last administered on 10/16/18 08:27; Admin Dose 1 EACH; Start 09/27/18 at 21:00 Psyllium Hydrophilic Mucilloid (Metamucil (Sugar Free)) 1 pkt BID PO Last administered on 10/16/18 08:27; Admin Dose 1 PKT; Start 09/27/18 at 21:00 Pantoprazole (Protonix Tab) 40 mg BID@,18 PO Last administered on 10/23/18 17:46; Admin Dose 40 MG; Start 10/06/18 at 18:00 Lidocaine (Lidocaine 5% Oint) 1 applic TID TOP Last administered on 1/19/19at 05:23; Admin Dose 1 APPLIC; Start 10/06/18 at 21:00 Phenyleph/Shark Oil/Min Oil/Petrol (Formulation R Oint) 1 applic PRN PRN [place] HEMORROID PAIN/ITCHING Last administered on 10/16/18 08:32; Admin Dose 1 APPLIC; Start 10/08/18 at 02:28 Lactulose (Enulose) 20 gm Q6H PRN PO constipation; Start 10/08/18 at 12:00 Docusate Sodium (Colace) 200 mg HS PO Last administered on 10/22/18at 21:01; Admin Dose 200 MG; Start 10/08/18 at 21:00 Tramadol HCl (Ultram) 100 mg Q6H PRN PO PAIN LEVEL 6-10 Last administered on 10/24/18 01:53; Admin Dose 100 MG; Start 10/09/18 at 18:30 Polyethylene Glycol (Miralax) 17 gm BID NGT Last administered on 10/16/18 08:32; Admin Dose 17 GM; Start 10/10/18 at 09:00 Albumin Human 250 ml @ 250 mls/hr WITH DIALYSIS PRN IV SBP<90; Start 10/11/18 at 12:30 Sodium Chloride (NS) -To prime the dialy... DIRECTED FOR HD PRN IV SBP<90; Start 10/11/18 at 12:30 Lubiprostone (Amitiza) 24 mcg BID PO Last administered on 10/23/18 08:34; Admin Dose 24 MCG; Start 10/12/18 at 10:30 Heparin Sodium (Porcine) (Heparin (1000 Units/ml)) 4,700 unit AFTER DIALYSIS CATHETER Last administered on 10/12/18at 23:36; Admin Dose 4,700 UNIT; Start 10/12 at 22:30 Heparin Sodium (Porcine) (Heparin (5000 Units/1ml)) 5,000 unit BID SC Last administered on 10/23/18 20:57; Admin Dose 5,000 UNIT; Start 10/15/18 at 13:30 Diclofenac Sodium (Voltaren 1% Gel) 2 gm QID PRN TP discomfort; Start 10/21/18 at 15:00 Loperamide HCl (Imodium Cap) 2 mg QID PRN PO DIARRHEA; Start 10/23/18 at 18:30 CHARLIE STRAUSS [birth year], 2019 08:36
[2018-10-24] MEDS: POLYETHYLENE GLYCOL 17 GM PACKET NGT SCH ×2 (09:00→21:00)
[2018-10-24] MEDS: PSYLLIUM (SUGAR FREE) PACKET PO SCH ×2 (09:00→21:00)
[2018-10-24] MEDS: ARTIFICIAL TEARS 15 ML OPH BOTH EYES SCH ×4 (09:00→21:19)
[2018-10-24] MEDS: LUBIPROSTONE 24 MCG CAP PO SCH ×2 (09:00→21:00)
[2018-10-24] MEDS: LIDOCAINE 5% 35 GM OINT TOP SCH ×3 (09:00→21:08)
[2018-10-24] MEDS: L ACIDOPHIL/B LACTIS/B LONGUM CAPSULE PO SCH ×2 (09:00→21:00)
[2018-10-24] MEDS: DICLOFENAC SODIUM 1% GEL 100 GM TUBE TP SCH ×4 (09:00→21:00)
[2018-10-24] MEDS: INSULIN ASPART [NOVOLOG] 3 ML PEN SC SCH ×5 (09:00→21:13)
[2018-10-24] MEDS: BALSAM PERU/CASTOR OIL 60 GM TUBE TOP SCH ×2 (09:00→21:00)
[2018-10-24] MEDS: HEPARIN 5,000 UNIT/1 ML VIAL SC SCH ×2 (10:02→21:14)
[2018-10-24] MEDS: FUROSEMIDE 40 MG TAB PO SCH (10:03)
[2018-10-24] MEDS: ALLOPURINOL 100 MG TAB PO SCH (10:04)
[2018-10-24] MEDS: NYSTATIN 30 GM POWDER BTL TOP SCH ×2 (10:06→21:00)
[2018-10-24 10:11] VITALS: BP 138/83; PULSE 77; RESP 19
[2018-10-24] MEDS: GABAPENTIN 100 MG CAP PO PRN (10:16)
[2018-10-24 13:23] VITALS: BP 142/66; PULSE 77; RESP 16
--- NOTE | 2018-10-24 13:51 | PN ---
Date/Time of Note Date/Time of Note DATE: 10/24/18 TIME: 13:49 Assessment/Plan VTE Prophylaxis Risk score (from Nsg)>0 risk: 5 SCD applied (from Ns): No SCD contraindicated: low risk/ambulating Pharmacological prophylaxis: NA/contraindicated Pharm contraindication: low risk/ambulating Lines/Catheters IV Catheter Type (from Nrs): Saline Lock Urinary Cath still in place: No Assessment/Plan Hospital Course 58 y/o with 1. . ckd iii-iv now with the complications of hyperkalemia, patient has been refusing Kayexalate Veltaastrida has also been refusing dialysis, patient was explained the risks and consequences and patient completely understands the risks and consequences, now agreed, on and off Hd once a week 2. c diff hx 3. Chronic kidney disease, 4. Morbid obesity. 5. Diabetes. 6. Hypertension, 7. Gout.hx 8. Neuropathy. 9. History of congestive heart failure. 10 weakness 11 deconditioning 13 Left shoulde pain, TTP ? Frozen shoulder , shoulder impingement 14 s/p Fall ? AMS confusion likley due to UTI 15 uti klebsiella and enterococcus 16 diarrhea 15 vomtiing/? contipation> refuse labs again 16 Dizziness> chronic ? Postural 17 UTI 18 rectal pain with fissure Plan - calorie count - PPI BID -stool softners/imodium for diarrhoea - Lactobacillus - Physical therapy PER PT - low k diet, cw lasix -tyenolol on as needed headache - HD once a week -hd today arrange for SNIF with HD placement,pt already discharged, Spoke to , still no placement Result Diagram: 10/20/18 1416 Results 24hrs Laboratory Tests Test 10/23/18 17:45 10/23/18 20:53 10/24/18 08:55 10/24/18 12:58 Bedside Glucose 211 191 186 165 Subjective 24 Hr Interval Summary Free Text/Dictation Had a long discussion again with patient aboout treatment , plan Pt agreed that her baseline is going to commode by herself refused checking 24 hr studies again Exam/Review of Systems Vital Signs Vitals Vital Signs Date Temp Pulse Resp B/P (MAP) Pulse Ox O2 O2 Flow FiO2 Time Delivery Rate 10/24/18 98.1 77 16 142/66 98 Room Air 13:23 (91) Intake and Output 1/10/23/18 10/24/18 1515:00 23:00 07:00 IntakeIntake Total 500 ml 200 ml 240 ml BalanceBalance 500 ml 200 ml 240 ml Exam not done Medications Medications Current Medications Acetaminophen (Tylenol Tab) 325 mg Q4H PRN PO MILD PAIN(1-3)OR ELEVATED TEMP Last administered on 10/18/18 09:27; Admin Dose 325 MG; Start 07/20/18 at 23:00 Allopurinol (Zyloprim) 100 mg DAILY PO Last administered on 10/24/18 10:04; Admin Dose 100 MG; Start 07/21/18 at 09:00 IV Flush (NS 3 ml) 3 ml PER PROTOCOL IV ; Start 07/20/18 at 23:00 Acetaminophen (Tylenol Supp) 650 mg Q6H PRN [place] PAIN LEVEL 1-3 OR FEVER; Start 07/20/18 at 23:00 Bisacodyl (Dulcolax) 5 mg DAILY PRN PO CONSTIPATION Last administered on 10/20/18 09:42; Admin Dose 5 MG; Start 07/20/18 at 23:00 Insulin Aspart (Novolog Insulin Pen) NOVOLOG *MILD* ALGORITHM WITH MEALS BEDTIME SC Last administered on 10/24/18 13:02; Admin Dose 1 UNIT; Start 07/21/18 at 07:50 Ergocalciferol (Drisdol) 50,000 unit Lacy@0900 PO Last administered on 10/23/18 08:34; Admin Dose 50,000 UNIT; Start 07/24/18 at 09:00 Miscellaneous Information 1 ea NOTE XX ; Start 07/20/18 at 23:00 Dextrose (D50w Syringe) 25 ml Q15M PRN IV DECREASED GLUCOSE; Start 07/20/18 at 23:00 Dextrose (D50w Syringe) 50 ml Q15M PRN IV DECREASED GLUCOSE; Start 07/20/18 at 23:00 Melatonin (Melatonin) 3 mg HS PRN PO INSOMNIA Last administered on 10/24/18 01:53; Admin Dose 3 MG; Start 07/20/18 at 23:00 Diclofenac Sodium (Voltaren 1% Gel) 2 gm QID TP Last administered on 10/22/18 05:27; Admin Dose 2 GM; Start 07/22/18 at 13:00 Loratadine (Claritin) 10 mg DAILY PRN PO ALLERGIC REACTION Last administered on 08/07/18 12:48; Admin Dose 10 MG; Start 08/07/18 at 12:30 Hydralazine HCl (Apresoline) 10 mg Q6H PRN PO ELEVATED BLOOD PRESSURE Last administered on 09/14/18 02:44; Admin Dose 10 MG; Start 08/08/18 at 04:30 Hydralazine HCl (Apresoline) 25 mg TID PO Last administered on 10/24/18 13:23; Admin Dose 25 MG; Start 08/08/18 at 13:00 Eye Lubricant (Artificial Tears Oph) 2 drop QID BOTH EYES Last administered on 10/24/18 13:03; Admin Dose 2 DROP; Start 08/09/18 at 11:00 Calcium Carbonate (Tums) 500 mg PRN PRN PO HEARTBURN Last administered on 10/05/18 12:34; Admin Dose 500 MG; Start 08/09/18 at 14:30 Nystatin (Nystatin Powder) 1 applic BID TOP Last administered on 10/22/18 05:23; Admin Dose 1 APPLIC; Start 08/28/18 at 21:00 Ondansetron HCl (Zofran Tab) 4 mg Q6H PRN PO NAUSEA AND/OR VOMITING Last administered on 09/10/18 07:58; Admin Dose 4 MG; Start 09/03/18 at 16:00 Al Hydrox/Mg Hydrox/Simethicone (Mag-Al Plus) 30 ml Q4H PRN PO GASTROINTESTINAL UPSET; Start 09/10/18 at 18:00 Furosemide (Lasix) 40 mg DAILY PO Last administered on 10/24/18 10:03; Admin Dose 40 MG; Start 09/21/18 at 14:30 Carbamide Peroxide (Debrox Otic) 3 drop BID PRN BOTH EARS EAR PAIN Last administered on 10/15/18 20:39; Admin Dose 3 DROP; Start 09/24/18 at 16:00 Ondansetron HCl (Zofran Inj) 4 mg Q6H PRN IV NAUSEA AND/OR VOMITING Last administered on 10/15/18 06:15; Admin Dose 4 MG; Start 09/26/18 at 07:30 Gabapentin (Neurontin) 100 mg BID PRN PO NEUROPATHIC PAIN Last administered on 10/24/18 10:16; Admin Dose 100 MG; Start 09/27/18 at 21:00 Lactobacillus Acidophilus (Florajen3 Capsule) 1 each BID PO Last administered on 10/16/18 08:27; Admin Dose 1 EACH; Start 09/27/18 at 21:00 Psyllium Hydrophilic Mucilloid (Metamucil (Sugar Free)) 1 pkt BID PO Last administered on 10/16/18 08:27; Admin Dose 1 PKT; Start 09/27/18 at 21:00 Pantoprazole (Protonix Tab) 40 mg BID@06,18 PO Last administered on 10/23/18 17:46; Admin Dose 40 MG; Start 10/06/18 at 18:00 Lidocaine (Lidocaine 5% Oint) 1 applic TID TOP Last administered on 10/22/18 05:23; Admin Dose 1 APPLIC; Start 10/06/18 at 21:00 Phenyleph/Shark Oil/Min Oil/Petrol (Formulation R Oint) 1 applic PRN PRN [place] HEMORROID PAIN/ITCHING Last administered on 10/16/18 08:32; Admin Dose 1 APPLIC; Start 10/08/18 at 02:28 Lactulose (Enulose) 20 gm Q6H PRN PO constipation; Start 10/08/18 at 12:00 Docusate Sodium (Colace) 200 mg HS PO Last administered on 10/22/18 21:01; Admin Dose 200 MG; Start 10/08/18 at 21:00 Tramadol HCl (Ultram) 100 mg Q6H PRN PO PAIN LEVEL 6-10 Last administered on 10/24/18 10:02; Admin Dose 100 MG; Start 10/09/18 at 18:30 Polyethylene Glycol (Miralax) 17 gm BID NGT Last administered on 10/16/18 08:32; Admin Dose 17 GM; Start 10/10/18 at 09:00 Albumin Human 250 ml @ 250 mls/hr WITH DIALYSIS PRN IV SBP<90; Start 10/11/18 at 12:30 Sodium Chloride (NS) -To prime the dialy... DIRECTED FOR HD PRN IV SBP<90; Start 10/11/18 at 12:30 Lubiprostone (Amitiza) 24 mcg BID PO Last administered on 10/23/18 08:34; A dmin Dose 24 MCG; Start 10/12/18 at 10:30 Heparin Sodium (Porcine) (Heparin (1000 Units/ml)) 4,700 unit AFTER DIALYSIS CATHETER Last administered on 10/12/18at 23:36; Admin Dose 4,700 UNIT; Start 10/12/18 at 22:30 Heparin Sodium (Porcine) (Heparin (5000 Units/1ml)) 5,000 unit BID SC Last administered on 10/24/18at 10:02; Admin Dose 5,000 UNIT; Start 10/15/18 at 13:30 Diclofenac Sodium (Voltaren 1% Gel) 2 gm QID PRN TP discomfort; Start 10/21/18 at 15:00 Loperamide HCl (Imodium Cap) 2 mg QID PRN PO DIARRHEA; Start 10/23/18 at 18:30 KOFI SWANN MD Oct 24, 2018 13:51
[2018-10-24 20:30] VITALS: BP_SYST 108; BP_SYST 148; BP_DIAS 55; BP_DIAS 83; PULSE 84; RESP 18; RESP 19
[2018-10-24] MEDS: DOCUSATE SODIUM 100 MG CAP PO SCH (21:00)
[2018-10-25] MEDS: traMADol 50 MG TAB PO PRN ×4 (02:19→23:07)
[2018-10-25] MEDS: MELATONIN 3 MG TABLET PO PRN (02:19)
[2018-10-25 02:33] VITALS: BP 128/52; PULSE 78; RESP 20
[2018-10-25 04:47] VITALS: BP 98/55; RESP 20
[2018-10-25] MEDS: PANTOPRAZOLE (EC) 40 MG TAB PO SCH ×2 (05:09→17:54)
[2018-10-25] MEDS: INSULIN ASPART [NOVOLOG] 3 ML PEN SC SCH ×4 (07:50→23:23)
[2018-10-25 08:10] VITALS: BP 133/61; PULSE 80; RESP 18
[2018-10-25] MEDS: FUROSEMIDE 40 MG TAB PO SCH (08:26)
[2018-10-25] MEDS: ALLOPURINOL 100 MG TAB PO SCH (08:26)
[2018-10-25] MEDS: GABAPENTIN 100 MG CAP PO PRN (08:29)
[2018-10-25] MEDS: HEPARIN 5,000 UNIT/1 ML VIAL SC SCH ×2 (08:35→23:16)
[2018-10-25] MEDS: POLYETHYLENE GLYCOL 17 GM PACKET NGT SCH ×2 (08:36→21:00)
[2018-10-25] MEDS: ARTIFICIAL TEARS 15 ML OPH BOTH EYES SCH ×4 (08:36→21:00)
[2018-10-25] MEDS: LUBIPROSTONE 24 MCG CAP PO SCH ×2 (08:37→21:00)
[2018-10-25] MEDS: L ACIDOPHIL/B LACTIS/B LONGUM CAPSULE PO SCH ×2 (08:37→21:00)
[2018-10-25] MEDS: LIDOCAINE 5% 35 GM OINT TOP SCH ×3 (08:38→21:00)
[2018-10-25] MEDS: DICLOFENAC SODIUM 1% GEL 100 GM TUBE TP SCH ×4 (08:38→21:00)
[2018-10-25] MEDS: NYSTATIN 30 GM POWDER BTL TOP SCH ×2 (08:38→21:00)
[2018-10-25] MEDS: PSYLLIUM (SUGAR FREE) PACKET PO SCH ×2 (08:38→21:00)
[2018-10-25] MEDS: BALSAM PERU/CASTOR OIL 60 GM TUBE TOP SCH ×2 (08:38→21:00)
--- NOTE | 2018-10-25 13:12 | PN ---
Date/Time of Note Date/Time of Note DATE: 10/25/18 TIME: 13:12 Assessment/Plan VTE Prophylaxis Risk score (from Nsg)>0 risk: 6 SCD applied (from Ns): No SCD contraindicated: low risk/ambulating Pharmacological prophylaxis: NA/contraindicated Pharm contraindication: low risk/ambulating Lines/Catheters IV Catheter Type (from Nrs): Saline Lock Urinary Cath still in place: No Assessment/Plan Hospital Course 58 y/o with 1. . ckd iii-iv now with the complications of hyperkalemia, patient has been refusing Kayexalate Veltassa has also been refusing dialysis, patient was explained the risks and consequences and patient completely understands the risks and consequences, now agreed, on and off Hd once a week 2. c diff hx 3. Chronic kidney disease, 4. Morbid obesity. 5. Diabetes. 6. Hypertension, 7. Gout.hx 8. Neuropathy. 9. History of congestive heart failure. 10 weakness 11 deconditioning 13 Left shoulde pain, TTP ? Frozen shoulder , shoulder impingement 14 s/p Fall ? AMS confusion likley due to UTI 15 uti klebsiella and enterococcus 16 diarrhea 15 vomtiing/? contipation> refuse labs again 16 Dizziness> chronic ? Postural 17 UTI 18 rectal pain with fissure Plan - calorie count - PPI BID -stool softners/imodium for diarrhoea - Lactobacillus - Physical therapy PER PT - low k diet, cw lasix -tyenolol on as needed headache - HD once a week -hd today arrange for SNIF with HD placement,pt already discharged, Spoke to , still no placement Results 24hrs Laboratory Tests Test 10/24/18 18:14 10/24/18 21:06 10/25/18 02:11 10/25/18 08:24 Bedside Glucose 191 205 125 138 Subjective 24 Hr Interval Summary Free Text/Dictation NO New events Exam/Review of Systems Vital Signs Vitals Vital Signs Date Temp Pulse Resp B/P (MAP) Pulse Ox O2 O2 Flow FiO2 Time Delivery Rate 10/25/18 97.8 80 18 133/61 97 Room Air 08:10 (85) Intake and Output 10/24/18 10/24/18 10/25/18 1515:00 23:00 07:00 IntakeIntake Total 200 ml 200 ml BalanceBalance 200 ml 200 ml Medications Medications Current Medications Acetaminophen (Tylenol Tab) 325 mg Q4H PRN PO MILD PAIN(1-3)OR ELEVATED TEMP Last administered on 10/18/18 09:27; Admin Dose 325 MG; Start 07/20/18 at 23:00 Allopurinol (Zyloprim) 100 mg DAILY PO Last administered on 10/25/18 08:26; Admin Dose 100 MG; Start 07/21/18 at 09:00 IV Flush (NS 3 ml) 3 ml PER PROTOCOL IV ; Start 07/20/18 at 23:00 Acetaminophen (Tylenol Supp) 650 mg Q6H PRN [place] PAIN LEVEL 1-3 OR FEVER; Start 07/20/18 at 23:00 Bisacodyl (Dulcolax) 5 mg DAILY PRN PO CONSTIPATION Last administered on 10/20/18 09:42; Admin Dose 5 MG; Start 07/20/18 at 23:00 Insulin Aspart (Novolog Insulin Pen) NOVOLOG *MILD* ALGORITHM WITH MEALS BEDTIME SC Last administered on 10/24/18 21:13; Admin Dose 1 UNIT; Start 07/21/18 at 07:50 Ergocalciferol (Drisdol) 50,000 unit Lacy@0900 PO Last administered on 10/23/18 08:34; Admin Dose 50,000 UNIT; Start 07/24/18 at 09:00 Miscellaneous Information 1 ea NOTE XX ; Start 07/20/18 at 23:00 Dextrose (D50w Syringe) 25 ml Q15M PRN IV DECREASED GLUCOSE; Start 07/20/18 at 23:00 Dextrose (D50w Syringe) 50 ml Q15M PRN IV DECREASED GLUCOSE; Start 07/20/18 at 23:00 Melatonin (Melatonin) 3 mg HS PRN PO INSOMNIA Last administered on 10/25/18 02:19; Admin Dose 3 MG; Start 07/20/18 at 23:00 Diclofenac Sodium (Voltaren 1% Gel) 2 gm QID TP Last administered on 10/22/18 05:27; Admin Dose 2 GM; Start 07/22/18 at 13:00 Loratadine (Claritin) 10 mg DAILY PRN PO ALLERGIC REACTION Last administered on 08/07/18at 12:48; Admin Dose 10 MG; Start 08/07/18 at 12:30 Hydralazine HCl (Apresoline) 10 mg Q6H PRN PO ELEVATED BLOOD PRESSURE Last administered on 09/14/18 02:44; Admin Dose 10 MG; Start 08/08/18 at 04:30 Hydralazine HCl (Apresoline) 25 mg TID PO Last administered on 10/25/18 08:29; Admin Dose 25 MG; Start 08/08/18 at 13:00 Eye Lubricant (Artificial Tears Oph) 2 drop QID BOTH EYES Last administered on 10/25/18 08:36; Admin Dose 2 DROP; Start 08/09/18 at 11:00 Calcium Carbonate (Tums) 500 mg PRN PRN PO HEARTBURN Last administered on 10/05/18 12:34; Admin Dose 500 MG; Start 08/09/18 at 14:30 Nystatin (Nystatin Powder) 1 applic BID TOP Last administered on 10/22/18 05:23; Admin Dose 1 APPLIC; Start 08/28/18 at 21:00 Ondansetron HCl (Zofran Tab) 4 mg Q6H PRN PO NAUSEA AND/OR VOMITING Last administered on 09/10/18 07:58; Admin Dose 4 MG; Start 09/03/18 at 16:00 Al Hydrox/Mg Hydrox/Simethicone (Mag-Al Plus) 30 ml Q4H PRN PO GASTROINTESTINAL UPSET; Start 09/10/18 at 18:00 Furosemide (Lasix) 40 mg DAILY PO Last administered on 10/25/18 08:26; Admin Dose 40 MG; Start 09/21/18 at 14:30 Carbamide Peroxide (Debrox Otic) 3 drop BID PRN BOTH EARS EAR PAIN Last administered on 10/15/18 20:39; Admin Dose 3 DROP; Start 09/24/18 at 16:00 Ondansetron HCl (Zofran Inj) 4 mg Q6H PRN IV NAUSEA AND/OR VOMITING Last administered on 10/15/18 06:15; Admin Dose 4 MG; Start 09/26/18 at 07:30 Gabapentin (Neurontin) 100 mg BID PRN PO NEUROPATHIC PAIN Last administered on 10/25/18 08:29; Admin Dose 100 MG; Start 09/27/18 at 21:00 Lactobacillus Acidophilus (Florajen3 Capsule) 1 each BID PO Last administered on 10/16/18 08:27; Admin Dose 1 EACH; Start 09/27/18 at 21:00 Psyllium Hydrophilic Mucilloid (Metamucil (Sugar Free)) 1 pkt BID PO Last administered on 10/16/18 08:27; Admin Dose 1 PKT; Start 09/27/18 at 21:00 Pantoprazole (Protonix Tab) 40 mg BID@06,18 PO Last administered on 10/25/18 05:09; Admin Dose 40 MG; Start 10/06/18 at 18:00 Lidocaine (Lidocaine 5% Oint) 1 applic TID TOP Last administered on 10/24/18 21:08; Admin Dose 1 APPLIC; Start 10/06/18 at 21:00 Phenyleph/Shark Oil/Min Oil/Petrol (Formulation R Oint) 1 applic PRN PRN [place] HEMORROID PAIN/ITCHING Last administered on 10/16/18 08:32; Admin Dose 1 APPLIC; Start 10/08/18 at 02:28 Lactulose (Enulose) 20 gm Q6H PRN PO constipation; Start 10/08/18 at 12:00 Docusate Sodium (Colace) 200 mg HS PO Last administered on 10/22/18 21:01; Admin Dose 200 MG; Start 10/08/18 at 21:00 Tramadol HCl (Ultram) 100 mg Q6H PRN PO PAIN LEVEL 6-10 Last administered on 10/25/18 08:26; Admin Dose 100 MG; Start 10/09/18 at 18:30 Polyethylene Glycol (Miralax) 17 gm BID NGT Last administered on 10/16/18 08:32; Admin Dose 17 GM; Start 10/10/18 at 09:00 Albumin Human 250 ml @ 250 mls/hr WITH DIALYSIS PRN IV SBP<90; Start 10/11/18 at 12:30 Sodium Chloride (NS) -To prime the dialy... DIRECTED FOR HD PRN IV SBP<90; Start 10/11/18 at 12:30 Lubiprostone (Amitiza) 24 mcg BID PO Last administered on 10/23/18 08:34; Admin Dose 24 MCG; Start 10/12/18 at 10:30 Heparin Sodium (Porcine) (Heparin (1000 Units/ml)) 4,700 unit AFTER DIALYSIS CATHETER Last administered on 10/12/18 23:36; Admin Dose 4,700 UNIT; Start 10/12/18 at 22:30 Heparin Sodium (Porcine) (Heparin (5000 Units/1ml)) 5,000 unit BID SC Last administered on 10/25/18at 08:35; Admin Dose 5,000 UNIT; Start 10/15/18 at 13:30 Diclofenac Sodium (Voltaren 1% Gel) 2 gm QID PRN TP discomfort; Start 10/21/18 at 15:00 Loperamide HCl (Imodium Cap) 2 mg QID PRN PO DIARRHEA; Start 10/23/18 at 18:30 Miscellaneous Information (*Order Clarification Bulletin) MEDICATION REQUIRES CLARIFICATI... Q8H XX Last administered on 10/24/18at 18:13; Admin Dose 1 EA; Start 10/24/18 at 17:00; Stop 10/26/18 at 23:00 KOFI SWANN MD Oct 25, 2018 13:12
[2018-10-25] MEDS ORDERED: ALTEPLASE (CATHFLO) 2 MG INJ CATHETER ONE (14:00)
--- NOTE | 2018-10-25 14:42 | PN ---
Date/Time of Note Date/Time of Note DATE: 10/25/18 TIME: 14:39 Assessment/Plan VTE Prophylaxis Risk score (from Nsg)>0 risk: 6 SCD applied (from Ns): No SCD contraindicated: low risk/ambulating Pharmacological prophylaxis: NA/contraindicated, heparin Pharm contraindication: low risk/ambulating Lines/Catheters IV Catheter Type (from Nrs): Saline Lock Urinary Cath still in place: No Assessment/Plan Hospital Course 58 y/o with 1. . ckd iii-iv now with the complications of hyperkalemia, patient has been r efusing Kayexalate Veltassa has also been refusing dialysis, patient was explained the risks and consequences and patient completely understands the risks and consequences, now agreed, on and off Hd once a week 2. c diff hx 3. Chronic kidney disease, 4. Morbid obesity. 5. Diabetes. 6. Hypertension, 7. Gout.hx 8. Neuropathy. 9. History of congestive heart failure. 10 weakness 11 deconditioning 13 Left shoulde pain, TTP ? Frozen shoulder , shoulder impingement 14 s/p Fall ? AMS confusion likley due to UTI 15 uti klebsiella and enterococcus 16 diarrhea 15 vomtiing/? contipation> refuse labs again 16 Dizziness> chronic ? Postural 17 UTI 18 rectal pain with fissure Plan - calorie count - dietican consult> diet to be recommended, but need renal diet - PPI BID -stool softners/imodium for diarrhoea - Lactobacillus - Physical therapy PER PT - low k diet, cw lasix -tyenolol on as needed headache - HD once a week -spoke to hd nurse > will do tpa again, all positinal then HD arrange for SNIF with HD placement,pt already discharged, Spoke to CM , still no placement Results 24hrs Laboratory Tests Test 10/24/18 18:14 10/24/18 21:06 10/25/18 02:11 10/25/18 08:24 Bedside Glucose 191 205 125 138 Test 10/25/18 13:30 Bedside Glucose 162 Subjective 24 Hr Interval Summary Free Text/Dictation Cathether is occluded, pt is requesting more food> has gained weight over 10 lbs Exam/Review of Systems Vital Signs Vitals Vital Signs Date Temp Pulse Resp B/P (MAP) Pulse Ox O2 O2 Flow FiO2 Time Delivery Rate 10/25/18 97.8 80 18 133/61 97 Room Air 08:10 (85) Intake and Output 10/24/18 10/24/18 10/25/18 1515:00 23:00 07:00 IntakeIntake Total 200 ml 200 ml BalanceBalance 200 ml 200 ml Exam awake,alert obese lying side of bed rt permath very tender to touch ext Medications Medications Current Medications Acetaminophen (Tylenol Tab) 325 mg Q4H PRN PO MILD PAIN(1-3)OR ELEVATED TEMP Last administered on 10/18/18 09:27; Admin Dose 325 MG; Start 07/20/18 at 23:00 Allopurinol (Zyloprim) 100 mg DAILY PO Last administered on 10/25/18 08:26; Admin Dose 100 MG; Start 07/21/18 at 09:00 IV Flush (NS 3 ml) 3 ml PER PROTOCOL IV ; Start 07/20/18 at 23:00 Acetaminophen (Tylenol Supp) 650 mg Q6H PRN [place] PAIN LEVEL 1-3 OR FEVER; Start 07/20/18 at 23:00 Bisacodyl (Dulcolax) 5 mg DAILY PRN PO CONSTIPATION Last administered on 09:42; Admin Dose 5 MG; Start 07/20/18 at 23:00 Insulin Aspart (Novolog Insulin Pen) NOVOLOG *MILD* ALGORITHM WITH MEALS BEDTIME SC Last administered on 10/25/18 13:34; Admin Dose 1 UNIT; Start 07/21/18 at 07:50 Ergocalciferol (Drisdol) 50,000 unit Lacy@0900 PO Last administered on 10/23/18 08:34; Admin Dose 50,000 UNIT; Start 07/24/18 at 09:00 Miscellaneous Information 1 ea NOTE XX ; Start 07/20/18 at 23:00 Dextrose (D50w Syringe) 25 ml Q15M PRN IV DECREASED GLUCOSE; Start 07/20/18 at 23:00 Dextrose (D50w Syringe) 50 ml Q15M PRN IV DECREASED GLUCOSE; Start 07/20/18 at 23:00 Melatonin (Melatonin) 3 mg HS PRN PO INSOMNIA Last administered on 10/25/18 02:19; Admin Dose 3 MG; Start 07/20/18 at 23:00 Diclofenac Sodium (Voltaren 1% Gel) 2 gm QID TP Last administered on 10/22/18 05:27; Admin Dose 2 GM; Start 07/22/18 at 13:00 Loratadine (Claritin) 10 mg DAILY PRN PO ALLERGIC REACTION Last administered on 08/07/18 12:48; Admin Dose 10 MG; Start 08/07/18 at 12:30 Hydralazine HCl (Apresoline) 10 mg Q6H PRN PO ELEVATED BLOOD PRESSURE Last administered on 09/14/18 02:44; Admin Dose 10 MG; Start 08/08/18 at 04:30 Hydralazine HCl (Apresoline) 25 mg TID PO Last administered on 10/25/18 08:29; Admin Dose 25 MG; Start 08/08/18 at 13:00 Eye Lubricant (Artificial Tears Oph) 2 drop QID BOTH EYES Last administered on 10/25/18 08:36; Admin Dose 2 DROP; Start 08/09/18 at 11:00 Calcium Carbonate (Tums) 500 mg PRN PRN PO HEARTBURN Last administered on 10/05/18 12:34; Admin Dose 500 MG; Start 08/09/18 at 14:30 Nystatin (Nystatin Powder) 1 applic BID TOP Last administered on 10/22/18 05:23; Admin Dose 1 APPLIC; Start 08/28/18 at 21:00 Ondansetron HCl (Zofran Tab) 4 mg Q6H PRN PO NAUSEA AND/OR VOMITING Last administered on 09/10/18 07:58; Admin Dose 4 MG; Start 09/03/18 at 16:00 Al Hydrox/Mg Hydrox/Simethicone (Mag-Al Plus) 30 ml Q4H PRN PO GASTROINTESTINAL UPSET; Start 09/10/18 at 18:00 Furosemide (Lasix) 40 mg DAILY PO Last administered on 10/25/18 08:26; Admin Dose 40 MG; Start 09/21/18 at 14:30 Carbamide Peroxide (Debrox Otic) 3 drop BID PRN BOTH EARS EAR PAIN Last administered on 10/15/18 20:39; Admin Dose 3 DROP; Start 09/24/18 at 16:00 Ondansetron HCl (Zofran Inj) 4 mg Q6H PRN IV NAUSEA AND/OR VOMITING Last administered on 10/15/18 06:15; Admin Dose 4 MG; Start 09/26/18 at 07:30 Gabapentin (Neurontin) 100 mg BID PRN PO NEUROPATHIC PAIN Last administered on 10/25/18 08:29; Admin Dose 100 MG; Start 09/27/18 at 21:00 Lactobacillus Acidophilus (Florajen3 Capsule) 1 each BID PO Last administered on 10/16/18 08:27; Admin Dose 1 EACH; Start 09/27/18 at 21:00 Psyllium Hydrophilic Mucilloid (Metamucil (Sugar Free)) 1 pkt BID PO Last administered on 10/16/18 08:27; Admin Dose 1 PKT; Start 09/27/18 at 21:00 Pantoprazole (Protonix Tab) 40 mg BID@06,18 PO Last administered on 10/25/18 05:09; Admin Dose 40 MG; Start 10/06/18 at 18:00 Lidocaine (Lidocaine 5% Oint) 1 applic TID TOP Last administered on 10/24/18 21:08; Admin Dose 1 APPLIC; Start 10/06/18 at 21:00 Phenyleph/Shark Oil/Min Oil/Petrol (Formulation R Oint) 1 applic PRN PRN [place] HEMORROID PAIN/ITCHING Last administered on 10/16/18 08:32; Admin Dose 1 APPLIC; Start 10/08/18 at 02:28 Lactulose (Enulose) 20 gm Q6H PRN PO constipation; Start 10/08/18 at 12:00 Docusate Sodium (Colace) 200 mg HS PO Last administered on 10/22/18 21:01; Admin Dose 200 MG; Start 10/08/18 at 21:00 Tramadol HCl (Ultram) 100 mg Q6H PRN PO PAIN LEVEL 6-10 Last administered on 10/25/18 13:36; Admin Dose 100 MG; Start 10/09/18 at 18:30 Polyethylene Glycol (Miralax) 17 gm BID NGT Last administered on 10/16/18 08:32; Admin Dose 17 GM; Start 10/10/18 at 09:00 Albumin Human 250 ml @ 250 mls/hr WITH DIALYSIS PRN IV SBP<90; Start 10/11/18 at 12:30 Sodium Chloride (NS) -To prime the dialy... DIRECTED FOR HD PRN IV SBP<90; Start 10/11/18 at 12:30 Lubiprostone (Amitiza) 24 mcg BID PO Last administered on 10/23/18at 08:34; Admin Dose 24 MCG; Start 10/12/18 at 10:30 Heparin Sodium (Porcine) (Heparin (1000 Units/ml)) 4,700 unit AFTER DIALYSIS CATHETER Last administered on 10/12/18at 23:36; Admin Dose 4,700 UNIT; Start 10/12/18 at 22:30 Heparin Sodium (Porcine) (Heparin (5000 Units/1ml)) 5,000 unit BID SC Last administered on 10/25/18at 08:35; Admin Dose 5,000 UNIT; Start 10/15/18 at 13:30 Diclofenac Sodium (Voltaren 1% Gel) 2 gm QID PRN TP discomfort; Start 10/21/18 at 15:00 Loperamide HCl (Imodium Cap) 2 mg QID PRN PO DIARRHEA; Start 10/23/18 at 18:30 Miscellaneous Information (*Order Clarification Bulletin) MEDICATION REQUIRES CLARIFICATI... Q8H XX Last administered on 10/24/18at 18:13; Admin Dose 1 EA; Start 10/24/18 at 17:00; Stop 10/26/18 at 23:00 KOFI SWANN MD Oct 25, 2018 14:42
--- NOTE | 2018-10-25 16:57 | CONS ---
Assessment/Plan Assessment/Plan Assessment/Plan rectal pain/constipation/fissure pt doing much better, actually has backed off stool softeners as stool became too lose. not taking lactulose f/u gi prn high fiber diet stool softener prn myralax prn pt doesnt like lactyulose Results 24hrs Laboratory Tests Test 10/24/18 18:14 10/24/18 21:06 10/25/18 02:11 10/25/18 08:24 Bedside Glucose 191 205 125 138 Test 10/25/18 13:30 Bedside Glucose 162 Consultation Date/Type/Reason Admit Date/Time Jul 23, 2018 at 16:13 Initial Consult Date 10/06/18 Exam/Review of Systems Vital Signs Vitals Vital Signs Date Temp Pulse Resp B/P (MAP) Pulse Ox O2 O2 Flow FiO2 Time Delivery Rate 10/25/18 97.8 80 18 133/61 97 Room Air 08:10 (85) Intake and Output 10/24/18 10/24/18 10/25/18 1515:00 23:00 07:00 IntakeIntake Total 200 ml 200 ml BalanceBalance 200 ml 200 ml Medications Medications Current Medications Acetaminophen (Tylenol Tab) 325 mg Q4H PRN PO MILD PAIN(1-3)OR ELEVATED TEMP Last administered on 10/18/18 09:27; Admin Dose 325 MG; Start 07/20/18 at 23:00 Allopurinol (Zyloprim) 100 mg DAILY PO Last administered on 10/25/18 08:26; Admin Dose 100 MG; Start 07/21/18 at 09:00 IV Flush (NS 3 ml) 3 ml PER PROTOCOL IV ; Start 07/20/18 at 23:00 Acetaminophen (Tylenol Supp) 650 mg Q6H PRN [place] PAIN LEVEL 1-3 OR FEVER; Start 07/20/18 at 23:00 Bisacodyl (Dulcolax) 5 mg DAILY PRN PO CONSTIPATION Last administered on 10/20/18 09:42; Admin Dose 5 MG; Start 07/20/18 at 23:00 Insulin Aspart (Novolog Insulin Pen) NOVOLOG *MILD* ALGORITHM WITH MEALS BEDTIME SC Last administered on 10/25/18 13:34; Admin Dose 1 UNIT; Start 07/21/18 at 07:50 Ergocalciferol (Drisdol) 50,000 unit Lacy@0900 PO Last administered on 10/23/18 08:34; Admin Dose 50,000 UNIT; Start 07/24/18 at 09:00 Miscellaneous Information 1 ea NOTE XX ; Start 07/20/18 at 23:00 Dextrose (D50w Syringe) 25 ml Q15M PRN IV DECREASED GLUCOSE; Start 07/20/18 at 23:00 Dextrose (D50w Syringe) 50 ml Q15M PRN IV DECREASED GLUCOSE; Start 07/20/18 at 23:00 Melatonin (Melatonin) 3 mg HS PRN PO INSOMNIA Last administered on 10/25/18 02:19; Admin Dose 3 MG; Start 07/20/18 at 23:00 Diclofenac Sodium (Voltaren 1% Gel) 2 gm QID TP Last administered on 10/22/18 05:27; Admin Dose 2 GM; Start 07/22/18 at 13:00 Loratadine (Claritin) 10 mg DAILY PRN PO ALLERGIC REACTION Last administered on 08/07/18at 12:48; Admin Dose 10 MG; Start 08/07/18 at 12:30 Hydralazine HCl (Apresoline) 10 mg Q6H PRN PO ELEVATED BLOOD PRESSURE Last ad ministered on 09/14/18 02:44; Admin Dose 10 MG; Start 08/08/18 at 04:30 Hydralazine HCl (Apresoline) 25 mg TID PO Last administered on 10/25/18 08:29; Admin Dose 25 MG; Start 08/08/18 at 13:00 Eye Lubricant (Artificial Tears Oph) 2 drop QID BOTH EYES Last administered on 10/25/18 08:36; Admin Dose 2 DROP; Start 08/09/18 at 11:00 Calcium Carbonate (Tums) 500 mg PRN PRN PO HEARTBURN Last administered on 10/05/18 12:34; Admin Dose 500 MG; Start 08/09/18 at 14:30 Nystatin (Nystatin Powder) 1 applic BID TOP Last administered on 10/22/18 05:23; Admin Dose 1 APPLIC; Start 08/28/18 at 21:00 Ondansetron HCl (Zofran Tab) 4 mg Q6H PRN PO NAUSEA AND/OR VOMITING Last administered on 09/10/18at 07:58; Admin Dose 4 MG; Start 09/03/18 at 16:00 Al Hydrox/Mg Hydrox/Simethicone (Mag-Al Plus) 30 ml Q4H PRN PO GASTROINTESTINAL UPSET; Start 09/10/18 at 18:00 Furosemide (Lasix) 40 mg DAILY PO Last administered on 10/25/18 08:26; Admin Dose 40 MG; Start 09/21/18 at 14:30 Carbamide Peroxide (Debrox Otic) 3 drop BID PRN BOTH EARS EAR PAIN Last administered on 10/15/18 20:39; Admin Dose 3 DROP; Start 09/24/18 at 16:00 Ondansetron HCl (Zofran Inj) 4 mg Q6H PRN IV NAUSEA AND/OR VOMITING Last administered on 10/15/18 06:15; Admin Dose 4 MG; Start 09/26/18 at 07:30 Gabapentin (Neurontin) 100 mg BID PRN PO NEUROPATHIC PAIN Last administered on 10/25/18 08:29; Admin Dose 100 MG; Start 09/27/18 at 21:00 Lactobacillus Acidophilus (Florajen3 Capsule) 1 each BID PO Last administered on 10/16/18 08:27; Admin Dose 1 EACH; Start 09/27/18 at 21:00 Psyllium Hydrophilic Mucilloid (Metamucil (Sugar Free)) 1 pkt BID PO Last administered on 10/16/18 08:27; Admin Dose 1 PKT; Start 09/27/18 at 21:00 Pantoprazole (Protonix Tab) 40 mg BID@06,18 PO Last administered on 10/25/18 05:09; Admin Dose 40 MG; Start 10/06/18 at 18:00 Lidocaine (Lidocaine 5% Oint) 1 applic TID TOP Last administered on 10/24/18 21:08; Admin Dose 1 APPLIC; Start 10/06/18 at 21:00 Phenyleph/Shark Oil/Min Oil/Petrol (Formulation R Oint) 1 applic PRN PRN [place] HEMORROID PAIN/ITCHING Last administered on 10/16/18 08:32; Admin Dose 1 APPLIC; Start 10/08/18 at 02:28 Lactulose (Enulose) 20 gm Q6H PRN PO constipation; Start 10/08/18 at 12:00 Docusate Sodium (Colace) 200 mg HS PO Last administered on 10/22/18 21:01; Adm in Dose 200 MG; Start 10/08/18 at 21:00 Tramadol HCl (Ultram) 100 mg Q6H PRN PO PAIN LEVEL 6-10 Last administered on 10/25/18 13:36; Admin Dose 100 MG; Start 10/09/18 at 18:30 Polyethylene Glycol (Miralax) 17 gm BID NGT Last administered on 10/16/18 08:3 2; Admin Dose 17 GM; Start 10/10/18 at 09:00 Albumin Human 250 ml @ 250 mls/hr WITH DIALYSIS PRN IV SBP<90; Start 10/11/18 at 12:30 Sodium Chloride (NS) -To prime the dialy... DIRECTED FOR HD PRN IV SBP<90; Start 10/11/18 at 12:30 Lubiprostone (Amitiza) 24 mcg BID PO Last administered on 10/23/18 08:34; Admin Dose 24 MCG; Start 10/12/18 at 10:30 Heparin Sodium (Porcine) (Heparin (1000 Units/ml)) 4,700 unit AFTER DIALYSIS CATHETER Last administered on 10/12/18at 23:36; Admin Dose 4,700 UNIT; Start 10/12/18 at 22:30 Heparin Sodium (Porcine) (Heparin (5000 Units/1ml)) 5,000 unit BID SC Last administered on 10/25/18at 08:35; Admin Dose 5,000 UNIT; Start 10/15/18 at 13:30 Diclofenac Sodium (Voltaren 1% Gel) 2 gm QID PRN TP discomfort; Start 10/21/18 at 15:00 Loperamide HCl (Imodium Cap) 2 mg QID PRN PO DIARRHEA; Start 10/23/18 at 18:30 Miscellaneous Information (*Order Clarification Bulletin) MEDICATION REQUIRES CLARIFICATI... Q8H XX Last administered on 10/24/18at 18:13; Admin Dose 1 EA; Start 10/24/18 at 17:00; Stop 10/26/18 at 23:00 Date/Time of Note Date/Time of Note DATE: 10/25/18 TIME: 16:55 DIMITRY WHITE MD Oct 25, 2018 16:57
[2018-10-25 19:38] VITALS: BP 127/68; PULSE 78; RESP 18
[2018-10-25] MEDS: DOCUSATE SODIUM 100 MG CAP PO SCH (21:00)
[2018-10-26] VITALS (9 sets, daily range): BP systolic 120–169; BP diastolic 60–107; PULSE 68–78; RESP 16–20
[2018-10-26] MEDS: MELATONIN 3 MG TABLET PO PRN ×2 (04:16→23:04)
[2018-10-26] MEDS: traMADol 50 MG TAB PO PRN ×3 (05:49→18:12)
[2018-10-26] MEDS: PANTOPRAZOLE (EC) 40 MG TAB PO SCH ×2 (05:51→18:04)
[2018-10-26] MEDS: INSULIN ASPART [NOVOLOG] 3 ML PEN SC SCH ×4 (07:50→21:00)
[2018-10-26] MEDS: POLYETHYLENE GLYCOL 17 GM PACKET NGT SCH (09:00)
[2018-10-26] MEDS: LIDOCAINE 5% 35 GM OINT TOP SCH ×2 (09:00→12:34)
[2018-10-26] MEDS: DICLOFENAC SODIUM 1% GEL 100 GM TUBE TP SCH ×2 (09:00→12:34)
[2018-10-26] MEDS: NYSTATIN 30 GM POWDER BTL TOP SCH ×2 (09:00→21:00)
[2018-10-26] MEDS: ARTIFICIAL TEARS 15 ML OPH BOTH EYES SCH ×4 (09:00→21:00)
[2018-10-26] MEDS: PSYLLIUM (SUGAR FREE) PACKET PO SCH ×2 (09:00→21:00)
[2018-10-26] MEDS: L ACIDOPHIL/B LACTIS/B LONGUM CAPSULE PO SCH ×2 (09:00→21:00)
[2018-10-26] MEDS: BALSAM PERU/CASTOR OIL 60 GM TUBE TOP SCH ×2 (09:00→21:00)
[2018-10-26] MEDS: LUBIPROSTONE 24 MCG CAP PO SCH ×2 (09:00→21:00)
[2018-10-26] MEDS: GABAPENTIN 100 MG CAP PO PRN ×2 (10:13→23:04)
[2018-10-26] MEDS: ALLOPURINOL 100 MG TAB PO SCH (10:13)
[2018-10-26] MEDS: FUROSEMIDE 40 MG TAB PO SCH (10:14)
[2018-10-26] MEDS: HEPARIN 5,000 UNIT/1 ML VIAL SC SCH ×2 (10:18→23:03)
[2018-10-26] MEDS ORDERED: ALTEPLASE (CATHFLO) 2 MG INJ CATHETER ONE (11:00)
--- NOTE | 2018-10-26 13:50 | PN ---
Date/Time of Note Date/Time of Note DATE: 10/26/18 TIME: 13:48 Assessment/Plan VTE Prophylaxis Risk score (from Ns)>0 risk: 6 SCD applied (from Ns): No SCD contraindicated: other Pharmacological prophylaxis: heparin Lines/Catheters IV Catheter Type (from Nrs): Saline Lock Urinary Cath still in place: No Assessment/Plan Hospital Course 1. ckd, hyperkalemia 2. c diff hx 3. Opiates dependency 4. Morbid obesity. 5. Diabetes. 6. Hypertension, 7. Gout, hx 8. Neuropathy. 9. History of congestive heart failure. 10. weakness 11. deconditioning 12. Non compliance, pt refused [place], HD 13. Left shoulder chronic pain. Xray was reviewed from the last visit, it is arthrosis left acromioclavicular joint 14. constipation 15. UTI 16. right arm Picc line is not functioning Assessment/Plan - calorie count - paster operator consult> diet to be recommended, but need renal diet - PPI BID -stool softeners/imodium for diarrhoea - Lactobacillus - Physical therapy PER PT - low k diet, cw lasix -tylenol on as needed headache - HD once a wek -arrange for SNF with HD placement, pt already discharged, Spoke to , still no placement Results 24hrs Laboratory Tests Test 10/25/18 23:16 10/26/18 12:47 Bedside Glucose 131 159 Subjective 24 Hr Interval Summary Musculoskeletal: restricted range of motion, other (weakness) Exam/Review of Systems Vital Signs Vitals Vital Signs Date Temp Pulse Resp B/P (MAP) Pulse Ox O2 O2 Flow FiO2 Time Delivery Rate 10/26/18 98.1 74 18 139/66 99 Room Air 10:03 (90) Intake and Output 10/25/18 10/25/18 10/26/18 1515:00 23:00 07:00 IntakeIntake Total 120 ml BalanceBalance 120 ml Exam right chest Permcath Constitutional: alert, oriented Neck: supple Respiratory: clear to auscultation Cardiovascular: regular rate and rhythm Medications Medications Current Medications Acetaminophen (Tylenol Tab) 325 mg Q4H PRN PO MILD PAIN(1-3)OR ELEVATED TEMP Last administered on 10/18/18at 09:27; Admin Dose 325 MG; Start 07/20/18 at 23:00 Allopurinol (Zyloprim) 100 mg DAILY PO Last administered on 10/26/18 10:13; Admin Dose 100 MG; Start 07/21/18 at 09:00 IV Flush (NS 3 ml) 3 ml PER PROTOCOL IV ; Start 07/20/18 at 23:00 Acetaminophen (Tylenol Supp) 650 mg Q6H PRN [place] PAIN LEVEL 1-3 OR FEVER; Start 07/20/18 at 23:00 Bisacodyl (Dulcolax) 5 mg DAILY PRN PO CONSTIPATION Last administered on 10/20/18 09:42; Admin Dose 5 MG; Start 07/20/18 at 23:00 Insulin Aspart (Novolog Insulin Pen) NOVOLOG *MILD* ALGORITHM WITH MEALS BEDTIME SC Last administered on 10/26/18 12:49; Admin Dose 1 UNIT; Start 07/21/18 at 07:50 Ergocalciferol (Drisdol) 50,000 unit Lacy@0900 PO Last administered on 10/23/18 08:34; Admin Dose 50,000 UNIT; Start 07/24/18 at 09:00 Miscellaneous Information 1 ea NOTE XX ; Start 07/20/18 at 23:00 Dextrose (D50w Syringe) 25 ml Q15M PRN IV DECREASED GLUCOSE; Start 07/20/18 at 23:00 Dextrose (D50w Syringe) 50 ml Q15M PRN IV DECREASED GLUCOSE; Start 07/20/18 at 23:00 Melatonin (Melatonin) 3 mg HS PRN PO INSOMNIA Last administered on 10/26/18 04:16; Admin Dose 3 MG; Start 07/20/18 at 23:00 Loratadine (Claritin) 10 mg DAILY PRN PO ALLERGIC REACTION Last administered on 08/07/18 12:48; Admin Dose 10 MG; Start 08/07/18 at 12:30 Hydralazine HCl (Apresoline) 10 mg Q6H PRN PO ELEVATED BLOOD PRESSURE Last administered on 09/14/18 02:44; Admin Dose 10 MG; Start 08/08/18 at 04:30 Hydralazine HCl (Apresoline) 25 mg TID PO Last administered on 10/26/18 12:44; Admin Dose 25 MG; Start 08/08/18 at 13:00 Eye Lubricant (Artificial Tears Oph) 2 drop QID BOTH EYES Last administered on 10/25/18 17:54; Admin Dose 2 DROP; Start 08/09/18 at 11:00 Calcium Carbonate (Tums) 500 mg PRN PRN PO HEARTBURN Last administered on 10/05/18 12:34; Admin Dose 500 MG; Start 08/09/18 at 14:30 Nystatin (Nystatin Powder) 1 applic BID TOP Last administered on 10/22/18 05:23; Admin Dose 1 APPLIC; Start 08/28/18 at 21:00 Ondansetron HCl (Zofran Tab) 4 mg Q6H PRN PO NAUSEA AND/OR VOMITING Last administered on 09/10/18at 07:58; Admin Dose 4 MG; Start 09/03/18 at 16:00 Al Hydrox/Mg Hydrox/Simethicone (Mag-Al Plus) 30 ml Q4H PRN PO GASTROINTESTINAL UPSET; Start 09/10/18 at 18:00 Furosemide (Lasix) 40 mg DAILY PO Last administered on 10/26/18 10:14; Admin Dose 40 MG; Start 09/21/18 at 14:30 Carbamide Peroxide (Debrox Otic) 3 drop BID PRN BOTH EARS EAR PAIN Last administered on 10/15/18 20:39; Admin Dose 3 DROP; Start 09/24/18 at 16:00 Ondansetron HCl (Zofran Inj) 4 mg Q6H PRN IV NAUSEA AND/OR VOMITING Last administered on 10/15/18 06:15; Admin Dose 4 MG; Start 09/26/18 at 07:30 Gabapentin (Neurontin) 100 mg BID PRN PO NEUROPATHIC PAIN Last administered on 10/26/18 10:13; Admin Dose 100 MG; Start 09/27/18 at 21:00 Lactobacillus Acidophilus (Florajen3 Capsule) 1 each BID PO Last administered on 10/16/18 08:27; Admin Dose 1 EACH; Start 09/27/18 at 21:00 Psyllium Hydrophilic Mucilloid (Metamucil (Sugar Free)) 1 pkt BID PO Last administered on 10/16/18 08:27; Admin Dose 1 PKT; Start 09/27/18 at 21:00 Pantoprazole (Protonix Tab) 40 mg BID@ PO Last administered on 10/26/18 05:51; Admin Dose 40 MG; Start 10/06/18 at 18:00 Phenyleph/Shark Oil/Min Oil/Petrol (Formulation R Oint) 1 applic PRN PRN [place] HEMORROID PAIN/ITCHING Last administered on 10/16/18at 08:32; Admin Dose 1 APPLIC; Start 10/08/18 at 02:28 Lactulose (Enulose) 20 gm Q6H PRN PO constipation; Start 10/08/18 at 12:00 Docusate Sodium (Colace) 200 mg HS PO Last administered on 10/22/18at 21:01; Admin Dose 200 MG; Start 10/08/18 at 21:00 Tramadol HCl (Ultram) 100 mg Q6H PRN PO PAIN LEVEL 6-10 Last administered on 10/26/18 12:35; Admin Dose 100 MG; Start 10/09/18 at 18:30 Albumin Human 250 ml @ 250 mls/hr WITH DIALYSIS PRN IV SBP<90; Start 10/11/18 at 12:30 Sodium Chloride (NS) -To prime the dialy... DIRECTED FOR HD PRN IV SBP<90; Start 10/11/18 at 12:30 Lubiprostone (Amitiza) 24 mcg BID PO Last administered on 10/23/18 08:34; Admin Dose 24 MCG; Start 10/12/18 at 10:30 Heparin Sodium (Porcine) (Heparin (1000 Units/ml)) 4,700 unit AFTER DIALYSIS CATHETER Last administered on 10/12/18at 23:36; Admin Dose 4,700 UNIT; Start 10/12/18 at 22:30 Heparin Sodium (Porcine) (Heparin (5000 Units/1ml)) 5,000 unit BID SC Last administered on 10/26/18at 10:18; Admin Dose 5,000 UNIT; Start 10/15/18 at 13:30 Loperamide HCl (Imodium Cap) 2 mg QID PRN PO DIARRHEA; Start 10/23/18 at 18:30 Miscellaneous Information (*Order Clarification Bulletin) MEDICATION REQUIRES CLARIFICATI... Q8H XX Last administered on 10/24/18at 18:13; Admin Dose 1 EA; Start 10/24/18 at 17:00; Stop 10/26/18 at 23:00 WILLY MEDEIROS Oct 26, 2018 13:50
[2018-10-26] MEDS: DOCUSATE SODIUM 100 MG CAP PO SCH (23:06)
[2018-10-27 02:15] VITALS: BP 147/67; PULSE 77; RESP 18
[2018-10-27] MEDS: traMADol 50 MG TAB PO PRN ×3 (02:24→14:18)
[2018-10-27] MEDS ORDERED: INSULIN ASPART [NOVOLOG] 3 ML PEN SC ONE (04:30)
[2018-10-27] MEDS: PANTOPRAZOLE (EC) 40 MG TAB PO SCH ×2 (07:00→18:00)
[2018-10-27] MEDS: INSULIN ASPART [NOVOLOG] 3 ML PEN SC SCH ×4 (07:50→21:00)
[2018-10-27 07:56] VITALS: BP 140/67; PULSE 76; RESP 18
[2018-10-27] MEDS: PSYLLIUM (SUGAR FREE) PACKET PO SCH ×2 (09:00→21:00)
[2018-10-27] MEDS: ARTIFICIAL TEARS 15 ML OPH BOTH EYES SCH ×4 (09:00→21:00)
[2018-10-27] MEDS: FUROSEMIDE 40 MG TAB PO SCH (09:00)
[2018-10-27] MEDS: L ACIDOPHIL/B LACTIS/B LONGUM CAPSULE PO SCH ×2 (09:00→21:00)
[2018-10-27] MEDS: LUBIPROSTONE 24 MCG CAP PO SCH ×2 (09:00→21:00)
[2018-10-27] MEDS: ALLOPURINOL 100 MG TAB PO SCH (09:00)
[2018-10-27] MEDS: BALSAM PERU/CASTOR OIL 60 GM TUBE TOP SCH ×2 (09:00→21:00)
[2018-10-27] MEDS: NYSTATIN 30 GM POWDER BTL TOP SCH ×2 (09:00→21:00)
[2018-10-27] MEDS: HEPARIN 5,000 UNIT/1 ML VIAL SC SCH ×2 (09:02→21:00)
--- NOTE | 2018-10-27 09:32 | CONS ---
Assessment/Plan Assessment/Plan Hospital Course 58 yo female presents for whole body pain for which we were consulted for rectal pain 1. Rectal pain secondary to anal fissure -resolved 2. Anal fissure 3. Constipation, chronic 4. GERD 5. CKD 3, now on HD, refusing HD 6. Morbid obesity with deconditioning 7. Diabetes mellitus 8. H/O CHF 9. Mild acute anemia likely due to chronic diseae -anemia work up 10. Abdominal bloating after eating per pt with nausea and vomiting -improved 11. Fatty liver Plan Continue with current care Continue PT Continue with bowel regimen as needed. Pt examined and plan of care discussed with Dr. Alvarado Results 24hrs Laboratory Tests Test 10/26/18 12:47 10/26/18 18:07 10/27/18 02:16 10/27/18 04:00 Bedside Glucose 159 173 213 177 Test 10/27/18 08:54 Bedside Glucose 126 Consultation Date/Type/Reason Admit Date/Time Jul 23, 2018 at 16:13 Initial Consult Date 10/06/18 24 HR Interval Summary Free Text/Dictation Rectal pain and abd pain improved. BM are soft. QD. Exam/Review of Systems Vital Signs Vitals Vital Signs Date Temp Pulse Resp B/P (MAP) Pulse Ox O2 O2 Flow FiO2 Time Delivery Rate 10/27/18 97.8 76 18 140/67 92 07:56 (91) 10/26/18 Room Air 10:03 Intake and Output 10/26/18 10/26/18 10/27/18 1515:00 23:00 07:00 OutputOutput Total 600 ml 1 ml BalanceBalance -600 ml -1 ml Exam Constitutional: alert, oriented Head: normocephalic Gastrointestinal: soft, non-tender Neurological: nl mental status Medications Medications Current Medications Acetaminophen (Tylenol Tab) 325 mg Q4H PRN PO MILD PAIN(1-3)OR ELEVATED TEMP [place] administered on 10/18/18at 09:27; Admin Dose 325 MG; Start 07/20/18 at 23:00 Allopurinol (Zyloprim) 100 mg DAILY PO Last administered on 10/27/18at 09:00; Admin Dose 100 MG; Start 07/21/18 at 09:00 IV Flush (NS 3 ml) 3 ml PER PROTOCOL IV ; Start 07/20/18 at 23:00 Acetaminophen (Tylenol Supp) 650 mg Q6H PRN [place] PAIN LEVEL 1-3 OR FEVER; Start 07/20/18 at 23:00 Bisacodyl (Dulcolax) 5 mg DAILY PRN PO CONSTIPATION Last administered on 10/20/18 09:42; Admin Dose 5 MG; Start 07/20/18 at 23:00 Insulin Aspart (Novolog Insulin Pen) NOVOLOG *MILD* ALGORITHM WITH MEALS BEDTIME SC Last administered on 10/26/18 18:11; Admin Dose 1 UNIT; Start 07/21/18 at 07:50 Ergocalciferol (Drisdol) 50,000 unit Lacy@0900 PO Last administered on 10/23/18 08:34; Admin Dose 50,000 UNIT; Start 07/24/18 at 09:00 Miscellaneous Information 1 ea NOTE XX ; Start 07/20/18 at 23:00 Dextrose (D50w Syringe) 25 ml Q15M PRN IV DECREASED GLUCOSE; Start 07/20/18 at 23:00 Dextrose (D50w Syringe) 50 ml Q15M PRN IV DECREASED GLUCOSE; Start 07/20/18 at 23:00 Melatonin (Melatonin) 3 mg HS PRN PO INSOMNIA Last administered on 10/26/18 23:04; Admin Dose 3 MG; Start 07/20/18 at 23:00 Loratadine (Claritin) 10 mg DAILY PRN PO ALLERGIC REACTION Last administered on 08/07/18 12:48; Admin Dose 10 MG; Start 08/07/18 at 12:30 Hydralazine HCl (Apresoline) 10 mg Q6H PRN PO ELEVATED BLOOD PRESSURE Last administered on 09/14/18at 02:44; Admin Dose 10 MG; Start 08/08/18 at 04:30 Hydralazine HCl (Apresoline) 25 mg TID PO Last administered on 10/27/18 09:01; Admin Dose 25 MG; Start 08/08/18 at 13:00 Eye Lubricant (Artificial Tears Oph) 2 drop QID BOTH EYES Last administered on 10/25/18 17:54; Admin Dose 2 DROP; Start 08/09/18 at 11:00 Calcium Carbonate (Tums) 500 mg PRN PRN PO HEARTBURN Last administered on 10/05/18 12:34; Admin Dose 500 MG; Start 08/09/18 at 14:30 Nystatin (Nystatin Powder) 1 applic BID TOP Last administered on 10/22/18 05:23; Admin Dose 1 APPLIC; Start 08/28/18 at 21:00 Ondansetron HCl (Zofran Tab) 4 mg Q6H PRN PO NAUSEA AND/OR VOMITING Last administered on 09/10/18at 07:58; Admin Dose 4 MG; Start 09/03/18 at 16:00 Al Hydrox/Mg Hydrox/Simethicone (Mag-Al Plus) 30 ml Q4H PRN PO GASTROINTESTINAL UPSET; Start 09/10/18 at 18:00 Furosemide (Lasix) 40 mg DAILY PO Last administered on 10/27/18 09:00; Admin Dose 40 MG; Start 09/21/18 at 14:30 Ondansetron HCl (Zofran Inj) 4 mg Q6H PRN IV NAUSEA AND/OR VOMITING Last administered on 10/15/18 06:15; Admin Dose 4 MG; Start 09/26/18 at 07:30 Gabapentin (Neurontin) 100 mg BID PRN PO NEUROPATHIC PAIN Last administered on 10/26/18 23:04; Admin Dose 100 MG; Start 09/27/18 at 21:00 Lactobacillus Acidophilus (Florajen3 Capsule) 1 each BID PO Last administered on 10/16/18 08:27; Admin Dose 1 EACH; Start 09/27/18 at 21:00 Psyllium Hydrophilic Mucilloid (Metamucil (Sugar Free)) 1 pkt BID PO Last administered on 10/16/18 08:27; Admin Dose 1 PKT; Start 09/27/18 at 21:00 Pantoprazole (Protonix Tab) 40 mg BID@06,18 PO Last administered on 10/27/18 07:00; Admin Dose 40 MG; Start 10/06/18 at 18:00 Phenyleph/Shark Oil/Min Oil/Petrol (Formulation R Oint) 1 applic PRN PRN [place] HEMORROID PAIN/ITCHING Last administered on 10/16/18 08:32; Admin Dose 1 APPLIC; Start 10/08/18 at 02:28 Lactulose (Enulose) 20 gm Q6H PRN PO constipation; Start 10/08/18 at 12:00 Docusate Sodium (Colace) 200 mg HS PO Last administered on 10/26/18 23:06; Admin Dose 200 MG; Start 10/08/18 at 21:00 Tramadol HCl (Ultram) 100 mg Q6H PRN PO PAIN LEVEL 6-10 Last administered on 10/27/18 09:00; Admin Dose 100 MG; Start 10/09/18 at 18:30 Albumin Human 250 ml @ 250 mls/hr WITH DIALYSIS PRN IV SBP<90; Start 10/11/18 at 12:30 Sodium Chloride (NS) -To prime the dialy... DIRECTED FOR HD PRN IV SBP<90; Start 10/11/18 at 12:30 Lubiprostone (Amitiza) 24 mcg BID PO Last administered on 10/27/18 09:00; Admin Dose 24 MCG; Start 10/12/18 at 10:30 Heparin Sodium (Porcine) (Heparin (1000 Units/ml)) 4,700 unit AFTER DIALYSIS CATHETER Last administered on 10/12/18at 23:36; Admin Dose 4,700 UNIT; Start 10/12/18 at 22:30 Heparin Sodium (Porcine) (Heparin (5000 Units/1ml)) 5,000 unit BID SC Last administered on 10/27/18 09:02; Admin Dose 5,000 UNIT; Start 10/15/18 at 13:30 Loperamide HCl (Imodium Cap) 2 mg QID PRN PO DIARRHEA; Start 10/23/18 at 18:30 Date/Time of Note Date/Time of Note DATE: 10/27/18 TIME: 09:31 CHARLIE STRAUSS Oct 27, 2018 09:32
--- NOTE | 2018-10-27 12:24 | PN ---
Date/Time of Note Date/Time of Note DATE: 10/27/18 TIME: 12:22 Assessment/Plan VTE Prophylaxis Risk score (from Nsg)>0 risk: 6 SCD applied (from Nsg): Yes Pharmacological prophylaxis: heparin Lines/Catheters IV Catheter Type (from Nrsg): PERMACATH Urinary Cath still in place: No Assessment/Plan Hospital Course 1. ckd, hyperkalemia 2. c diff hx 3. Opiates dependency 4. Morbid obesity. 5. Diabetes. 6. Hypertension, 7. Gout, hx 8. Neuropathy. 9. History of congestive heart failure. 10. weakness 11. deconditioning 12. Non compliance, pt refused [place], HD 13. Left shoulder chronic pain. Xray was reviewed from the last visit, it is arthrosis left acromioclavicular joint 14. constipation 15. UTI 16. right arm Picc line is not functioning Assessment/Plan - calorie count -pt is losing weight - beeswax bleacher consult, renal diet - PPI BID -stool softeners/Imodium for diarrhoea - Lactobacillus - Physical therapy PER PT - low k diet, cw lasix -Tylenol on as needed headache - HD once a wek -arrange for SNF with HD placement, pt already discharged, Spoke to , still no placement Results 24hrs Laboratory Tests Test 10/26/18 12:47 10/26/18 18:07 10/27/18 02:16 10/27/18 04:00 Bedside Glucose 159 173 213 177 Test 10/27/18 08:54 Bedside Glucose 126 Subjective 24 Hr Interval Summary Free Text/Dictation complaints on distribution of fat not proportionally. Musculoskeletal: no complaints, back pain, bone/joint pain, neck pain, restricted range of motion, swelling, other Exam/Review of Systems Exam Vitals Vital Signs Date Temp Pulse Resp B/P (MAP) Pulse Ox O2 O2 Flow FiO2 Time Delivery Rate 10/27/18 97.8 76 18 140/67 92 07:56 (91) 10/26/18 Room Air 10:03 Intake and Output 10/26/18 10/26/18 10/27/18 1515:00 23:00 07:00 OutputOutput Total 600 ml 1 ml BalanceBalance -600 ml -1 ml Constitutional: alert, oriented Respiratory: normal air movement Cardiovascular: regular rate and rhythm Gastrointestinal: soft, distended Results Results 24hrs Laboratory Tests Test 10/26/18 12:47 10/26/18 18:07 10/27/18 02:16 10/27/18 04:00 Bedside Glucose 159 173 213 177 Test 10/27/18 08:54 Bedside Glucose 126 WILLY MEDEIROS Oct 27, 2018 12:24
[2018-10-27 16:02] VITALS: BP 135/89; PULSE 80; RESP 18
[2018-10-27 19:45] VITALS: BP 119/57; PULSE 78; RESP 20
[2018-10-27] MEDS: DOCUSATE SODIUM 100 MG CAP PO SCH (21:00)
[2018-10-28 02:22] VITALS: BP 180/78; PULSE 73; RESP 20
[2018-10-28] MEDS: PANTOPRAZOLE (EC) 40 MG TAB PO SCH ×2 (05:21→18:00)
[2018-10-28] MEDS: traMADol 50 MG TAB PO PRN ×4 (05:24→23:54)
[2018-10-28] MEDS: DOCUSATE SODIUM 100 MG CAP PO SCH ×2 (05:25→20:33)
--- NOTE | 2018-10-28 07:09 | CONS ---
Assessment/Plan Assessment/Plan Hospital Course (Demo Recall) 58 yo female presents for whole body pain for which we were consulted for rectal pain 1. Rectal pain secondary to anal fissure -resolved 2. Anal fissure 3. Constipation, chronic 4. GERD 5. CKD 3, now on HD, refusing HD 6. Morbid obesity with deconditioning 7. Diabetes mellitus 8. H/O CHF 9. Mild acute anemia likely due to chronic diseae -anemia work up 10. Abdominal bloating after eating per pt with nausea and vomiting -improved 11. Fatty liver Plan Continue with current care Continue PT Continue with bowel regimen as needed. Pt examined and plan of care discussed with Dr. Alvarado Assessment/Plan (Daily) a Consultation Date/Type/Reason Admit Date/Time Jul 23, 2018 at 16:13 Initial Consult Date 10/06/18 Date/Time of Note DATE: 10/28/18 TIME: 07:08 24 HR Interval Summary Free Text/Dictation No acute changes. Exam/Review of Systems Exam Vitals Vital Signs Date Temp Pulse Resp B/P (MAP) Pulse Ox O2 O2 Flow FiO2 Time Delivery Rate 10/28/18 97.6 73 20 180/78 97 02:22 (112) 10/27/18 Room Air 19:45 Constitutional: alert, oriented Eyes: PERRL Gastrointestinal: soft, non-tender, other (obese) Neurological: nl mental status Results Result Diagram: 10/27/18 1355 Results 24hrs Laboratory Tests Test 10/27/18 08:54 10/27/18 12:55 10/27/18 13:55 10/27/18 17:54 Bedside Glucose 126 192 148 Sodium Level 139 Potassium Level 4.5 Chloride Level 105 Carbon Dioxide Level 23 Anion Gap 11 Blood Urea Nitrogen 57 H Creatinine 3.58 H Est Glomerular 13 L Filtrat Rate mL/min Glucose Level 202 Calcium Level 9.0 Test 10/27/18 21:57 Bedside Glucose 148 CHARLIE STRAUSS Oct 28, 2018 07:09
[2018-10-28] MEDS: L ACIDOPHIL/B LACTIS/B LONGUM CAPSULE PO SCH ×2 (09:00→21:00)
[2018-10-28] MEDS: BALSAM PERU/CASTOR OIL 60 GM TUBE TOP SCH ×2 (09:00→21:00)
[2018-10-28] MEDS: INSULIN ASPART [NOVOLOG] 3 ML PEN SC SCH ×5 (09:00→21:35)
[2018-10-28] MEDS: NYSTATIN 30 GM POWDER BTL TOP SCH ×2 (09:00→21:00)
[2018-10-28] MEDS: ARTIFICIAL TEARS 15 ML OPH BOTH EYES SCH ×4 (09:00→21:00)
[2018-10-28] MEDS: PSYLLIUM (SUGAR FREE) PACKET PO SCH ×2 (09:00→21:00)
[2018-10-28] MEDS: FUROSEMIDE 40 MG TAB PO SCH (09:05)
[2018-10-28] MEDS: LUBIPROSTONE 24 MCG CAP PO SCH ×2 (09:07→21:00)
[2018-10-28] MEDS: ALLOPURINOL 100 MG TAB PO SCH (09:07)
[2018-10-28] MEDS: HEPARIN 5,000 UNIT/1 ML VIAL SC SCH ×2 (09:10→20:39)
[2018-10-28 09:20] VITALS: BP 148/62; PULSE 82; RESP 20
--- NOTE | 2018-10-28 11:03 | PN ---
DANA MEDEIROSA 10/28/18 1103: Date/Time of Note Date/Time of Note DATE: 10/28/18 TIME: 11:02 Assessment/Plan VTE Prophylaxis Risk score (from Ns)>0 risk: 7 SCD applied (from Ns): No SCD contraindicated: other Pharmacological prophylaxis: heparin Lines/Catheters IV Catheter Type (from [facility]): PERMACATH Urinary Cath still in place: No Assessment/Plan Hospital Course 1. ckd, hyperkalemia, resolved . Right chest permcath is not working 2. c diff hx 3. Opiates dependency 4. Morbid obesity. 5. Diabetes. 6. Hypertension, 7. Gout, hx 8. Neuropathy. 9. History of congestive heart failure. 10. weakness 11. deconditioning 12. Non compliance, pt refused [place], HD 13. Left shoulder chronic pain. Xray was reviewed from the last visit, it is arthrosis left acromioclavicular joint 14. constipation 15. UTI Assessment/Plan - UA to collect -calorie count -pt is losing weight - change management director consult, renal diet - PPI BID -stool softeners/Imodium for diarrhea - Lactobacillus - Physical therapy PER PT - low k diet, cw lasix -Tylenol on as needed headache - HD once a wek -arrange for SNF with HD placement, pt already discharged, Spoke to CM , still no placement Result Diagram: 10/27/18 1355 Results 24hrs Laboratory Tests Test 10/27/18 12:55 10/27/18 13:55 10/27/18 17:54 10/27/18 21:57 Bedside Glucose 192 148 148 Sodium Level 139 Potassium Level 4.5 Chloride Level 105 Carbon Dioxide Level 23 Anion Gap 11 Blood Urea Nitrogen 57 H Creatinine 3.58 H Est Glomerular 13 L Filtrat Rate mL/min Glucose Level 202 Calcium Level 9.0 Test 10/28/18 08:59 Bedside Glucose 171 Subjective 24 Hr Interval Summary Genitourinary: dysuria Exam/Review of Systems Exam Vitals Vital Signs Date Temp Pulse Resp B/P (MAP) Pulse Ox O2 O2 Flow FiO2 Time Delivery Rate 10/28/18 97.6 73 20 180/78 97 02:22 (112) 10/27/18 Room Air 19:45 Constitutional: alert, oriented ENMT: nl external ears & nose Neck: supple Respiratory: clear to auscultation Cardiovascular: regular rate and rhythm Gastrointestinal: soft Additional Comments right chest Permcath Results Result Diagram: 10/27/18 1355 Results 24hrs Laboratory Tests Test 10/27/18 12:55 10/27/18 13:55 10/27/18 17:54 10/27/18 21:57 Bedside Glucose 192 148 148 Sodium Level 139 Potassium Level 4.5 Chloride Level 105 Carbon Dioxide Level 23 Anion Gap 11 Blood Urea Nitrogen 57 H Creatinine 3.58 H Est Glomerular 13 L Filtrat Rate mL/min Glucose Level 202 Calcium Level 9.0 Test 10/28/18 08:59 Bedside Glucose 171 KOFI SWANN MD 10/28/18 1648: Assessment/Plan Assessment/Plan Assessment/Plan PT IS GAINING WEIGHT DIET RESTRICTION Result Diagram: 10/27/18 1355 WILLY MEDEIROS Oct 28, 2018 11:03 KOFI SWANN MD Oct 28, 2018 16:48
[2018-10-28] MEDS: GABAPENTIN 100 MG CAP PO PRN ×2 (12:29→20:32)
[2018-10-28] MEDS: CEPHALEXIN 500 MG CAP PO SCH (22:00)
[2018-10-29] MEDS: PANTOPRAZOLE (EC) 40 MG TAB PO SCH ×2 (06:02→17:57)
[2018-10-29] MEDS: traMADol 50 MG TAB PO PRN ×3 (06:03→19:25)
[2018-10-29] MEDS ORDERED: VITAMIN A & D 5 GM OINT PACKET TOP ONE (06:05)
[2018-10-29] MEDS: PSYLLIUM (SUGAR FREE) PACKET PO SCH (09:00)
[2018-10-29] MEDS: ARTIFICIAL TEARS 15 ML OPH BOTH EYES SCH ×4 (09:00→22:01)
[2018-10-29] MEDS: L ACIDOPHIL/B LACTIS/B LONGUM CAPSULE PO SCH (09:37)
[2018-10-29] MEDS: ALLOPURINOL 100 MG TAB PO SCH (09:37)
[2018-10-29] MEDS: LUBIPROSTONE 24 MCG CAP PO SCH ×2 (09:38→21:55)
[2018-10-29] MEDS: FUROSEMIDE 40 MG TAB PO SCH (09:39)
[2018-10-29] MEDS: BALSAM PERU/CASTOR OIL 60 GM TUBE TOP SCH ×2 (09:40→22:00)
[2018-10-29] MEDS: NYSTATIN 30 GM POWDER BTL TOP SCH (09:40)
[2018-10-29] MEDS: HEPARIN 5,000 UNIT/1 ML VIAL SC SCH ×2 (09:44→21:00)
--- NOTE | 2018-10-29 11:18 | PN ---
Date/Time of Note Date/Time of Note DATE: 10/29/18 TIME: 11:17 Assessment/Plan VTE Prophylaxis Risk score (from Ns)>0 risk: 5 SCD applied (from Ns): No SCD contraindicated: other Pharmacological prophylaxis: heparin Lines/Catheters IV [facility] (from [facility] PERMACATH Urinary Cath still in place: No Assessment/Plan Hospital Course 1. ckd, hyperkalemia, resolved . Right chest permcath is not working 2. c diff hx 3. Opiates dependency 4. Morbid obesity. 5. Diabetes. 6. Hypertension, 7. Gout, hx 8. Neuropathy. 9. History of congestive heart failure. 10. weakness 11. deconditioning 12. Non compliance, pt refused V[place], HD 13. Left shoulder chronic pain. Xray was reviewed from the last visit, it is arthrosis left acromioclavicular joint 14. constipation 15. UTI Assessment/Plan -radiology to replace Permcath - UA shows UTI -calorie count -pt is losing weight - aquatic life laborer consult, renal diet - PPI BID -stool softeners/Imodium for diarrhea - Lactobacillus - Physical therapy PER PT - low k diet, cw lasix -Tylenol on as needed headache - HD once a wek -arrange for SNF with HD placement, pt already discharged, still no placement Result Diagram: 10/27/18 1355 Results 24hrs Laboratory Tests Test 10/28/18 12:28 10/28/18 18:03 10/28/18 20:30 10/29/18 01:45 Bedside Glucose 131 165 151 Urine Color RED Urine Clarity CLOUDY A Urine pH 6.0 Urine Specific 1.013 [place] Urine Ketones NEGATIVE Urine Nitrite NEGATIVE Urine Bilirubin NEGATIVE Urine Urobilinogen NEGATIVE Urine Leukocyte 3+ H Esterase Urine Microscopic 2 RBC Urine Microscopic 15 H WBC Urine Squamous FEW Epithelial Cells Urine Bacteria FEW A Urine Hemoglobin NEGATIVE Urine Random 64.87 Creatinine Urine Glucose NEGATIVE Urine Total Protein 2+ H Test 10/29/18 08:42 Bedside Glucose 114 Subjective 24 Hr Interval Summary Genitourinary: dysuria Exam/Review of Systems Exam Vitals Vital Signs Date Temp Pulse Resp B/P (MAP) Pulse Ox O2 O2 Flow FiO2 Time Delivery Rate 10/28/18 97.2 82 20 148/62 98 09:20 (90) 10/27/18 Room Air 19:45 Intake and Output 10/28/18 10/28/18 10/29/18 1515:00 23:00 07:00 IntakeIntake Total 400 ml 400 ml BalanceBalance 400 ml 400 ml Exam right chest Permcath Constitutional: alert, oriented Respiratory: clear to auscultation Cardiovascular: regular rate and rhythm Results Results 24hrs Laboratory Tests Test 10/28/18 12:28 10/28/18 18:03 10/28/18 20:30 10/29/18 01:45 Bedside Glucose 131 165 151 Urine Color RED Urine Clarity CLOUDY A Urine pH 6.0 Urine Specific 1.013 [place] Urine Ketones NEGATIVE Urine Nitrite NEGATIVE Urine Bilirubin NEGATIVE Urine Urobilinogen NEGATIVE Urine Leukocyte 3+ H Esterase Urine Microscopic 2 RBC Urine Microscopic 15 H WBC Urine Squamous FEW Epithelial Cells Urine Bacteria FEW A Urine Hemoglobin NEGATIVE Urine Random 64.87 Creatinine Urine Glucose NEGATIVE Urine Total Protein 2+ H Test 10/29/18 08:42 Bedside Glucose 114 Medications Medication Current Medications Acetaminophen (Tylenol Tab) 325 mg Q4H PRN PO MILD PAIN(1-3)OR ELEVATED TEMP Last administered on 10/18/18 09:27; Admin Dose 325 MG; Start 07/20/18 at 23:00 Allopurinol (Zyloprim) 100 mg DAILY PO Last administered on 10/29/18 09:37; Admin Dose 100 MG; Start 07/21/18 at 09:00 IV Flush (NS 3 ml) 3 ml PER PROTOCOL IV ; Start 07/20/18 at 23:00 Acetaminophen (Tylenol Supp) 650 mg Q6H PRN [place] PAIN LEVEL 1-3 OR FEVER; Start 07/20/18 at 23:00 Bisacodyl (Dulcolax) 5 mg DAILY PRN PO CONSTIPATION Last administered on 10/20/18 09:42; Admin Dose 5 MG; Start 07/20/18 at 23:00 Insulin Aspart (Novolog Insulin Pen) NOVOLOG *MILD* ALGORITHM WITH MEALS BEDTIME SC Last administered on 10/28/18 18:24; Admin Dose 1 UNIT; Start 07/21/18 at 07:50 Ergocalciferol (Drisdol) 50,000 unit Lacy@0900 PO Last administered on 10/23/18 08:34; Admin Dose 50,000 UNIT; Start 07/24/18 at 09:00 Miscellaneous Information 1 ea NOTE XX ; Start 07/20/18 at 23:00 Dextrose (D50w Syringe) 25 ml Q15M PRN IV DECREASED GLUCOSE; Start 07/20/18 at 23:00 Dextrose (D50w Syringe) 50 ml Q15M PRN IV DECREASED GLUCOSE; Start 07/20/18 at 23:00 Melatonin (Melatonin) 3 mg HS PRN PO INSOMNIA Last administered on 10/26/18 23:04; Admin Dose 3 MG; Start 07/20/18 at 23:00 Loratadine (Claritin) 10 mg DAILY PRN PO ALLERGIC REACTION Last administered on 08/07/18 12:48; Admin Dose 10 MG; Start 08/07/18 at 12:30 Hydralazine HCl (Apresoline) 10 mg Q6H PRN PO ELEVATED BLOOD PRESSURE Last administered on 09/14/18 02:44; Admin Dose 10 MG; Start 08/08/18 at 04:30 Hydralazine HCl (Apresoline) 25 mg TID PO Last administered on 10/29/18 09:38; Admin Dose 25 MG; Start 08/08/18 at 13:00 Eye Lubricant (Artificial Tears Oph) 2 drop QID BOTH EYES Last administered on 10/25/18 17:54; Admin Dose 2 DROP; Start 08/09/18 at 11:00 Calcium Carbonate (Tums) 500 mg PRN PRN PO HEARTBURN Last administered on 10/05/18 12:34; Admin Dose 500 MG; Start 08/09/18 at 14:30 Nystatin (Nystatin Powder) 1 applic BID TOP Last administered on 10/29/18 09:40; Admin Dose 1 APPLIC; Start 08/28/18 at 21:00 Ondansetron HCl (Zofran Tab) 4 mg Q6H PRN PO NAUSEA AND/OR VOMITING Last administered on 09/10/18 07:58; Admin Dose 4 MG; Start 09/03/18 at 16:00 Al Hydrox/Mg Hydrox/Simethicone (Mag-Al Plus) 30 ml Q4H PRN PO GASTROINTESTINAL UPSET; Start 09/10/18 at 18:00 Furosemide (Lasix) 40 mg DAILY PO Last administered on 10/29/18 09:39; Admin Dose 40 MG; Start 09/21/18 at 14:30 Ondansetron HCl (Zofran Inj) 4 mg Q6H PRN IV NAUSEA AND/OR VOMITING Last administered on 10/15/18 06:15; Admin Dose 4 MG; Start 09/26/18 at 07:30 Gabapentin (Neurontin) 100 mg BID PRN PO NEUROPATHIC PAIN Last administered on 10/28/18 20:32; Admin Dose 100 MG; Start 09/27/18 at 21:00 Lactobacillus Acidophilus (Florajen3 Capsule) 1 each BID PO Last administered o n 10/29/18 09:37; Admin Dose 1 EACH; Start 09/27/18 at 21:00 Psyllium Hydrophilic Mucilloid (Metamucil (Sugar Free)) 1 pkt BID PO Last administered on 10/16/18 08:27; Admin Dose 1 PKT; Start 09/27/18 at 21:00 Pantoprazole (Protonix Tab) 40 mg BID@06,18 PO Last administered on 10/29/18 06:02; Admin Dose 40 MG; Start 10/06/18 at 18:00 Phenyleph/Shark Oil/Min Oil/Petrol (Formulation R Oint) 1 applic PRN PRN [place] HEMORROID PAIN/ITCHING Last administered on 10/16/18 08:32; Admin Dose 1 APPLIC; Start 10/08/18 at 02:28 Lactulose (Enulose) 20 gm Q6H PRN PO constipation; Start 10/08/18 at 12:00 Docusate Sodium (Colace) 200 mg HS PO Last administered on 10/28/18 20:33; Admin Dose 200 MG; Start 10/08/18 at 21:00 Tramadol HCl (Ultram) 100 mg Q6H PRN PO PAIN LEVEL 6-10 Last administered on 10/29/18 06:03; Admin Dose 100 MG; Start 10/09/18 at 18:30 Albumin Human 250 ml @ 250 mls/hr WITH DIALYSIS PRN IV SBP<90; Start 10/11/18 at 12:30 Sodium Chloride (NS) -To prime the dialy... DIRECTED FOR HD PRN IV SBP<90; Start 10/11/18 at 12:30 Lubiprostone (Amitiza) 24 mcg BID PO Last administered on 10/29/18 09:38; Admin Dose 24 MCG; Start 10/12/18 at 10:30 Heparin Sodium (Porcine) (Heparin (1000 Units/ml)) 4,700 unit AFTER DIALYSIS CATHETER Last administered on 10/12/18at 23:36; Admin Dose 4,700 UNIT; Start 10/12/18 at 22:30 Heparin Sodium (Porcine) (Heparin (5000 Units/1ml)) 5,000 unit BID SC Last administered on 10/29/18at 09:44; Admin Dose 5,000 UNIT; Start 10/15/18 at 13:30 Loperamide HCl (Imodium Cap) 2 mg QID PRN PO DIARRHEA; Start 10/23/18 at 18:30 WILLY MEDEIROS Oct 29, 2018 11:18
[2018-10-29 11:46] VITALS: BP 177/72; PULSE 75; RESP 14
[2018-10-29] MEDS: INSULIN ASPART [NOVOLOG] 3 ML PEN SC SCH ×3 (13:26→21:00)
[2018-10-29] MEDS: CEPHALEXIN 500 MG CAP PO SCH (13:28)
[2018-10-29] MEDS: GABAPENTIN 100 MG CAP PO PRN (17:57)
[2018-10-29 19:50] VITALS: BP 126/60; PULSE 86; RESP 20
[2018-10-29] MEDS: DOCUSATE SODIUM 100 MG CAP PO SCH (21:55)
[2018-10-30] MEDS: traMADol 50 MG TAB PO PRN ×4 (01:35→21:33)
[2018-10-30 02:12] VITALS: BP 136/94; PULSE 73; RESP 20
[2018-10-30 02:13] VITALS: BP 181/81
[2018-10-30] MEDS: PANTOPRAZOLE (EC) 40 MG TAB PO SCH ×2 (05:53→19:49)
[2018-10-30 06:29] VITALS: BP 161/86; PULSE 82; RESP 20
[2018-10-30] MEDS: INSULIN ASPART [NOVOLOG] 3 ML PEN SC SCH ×4 (07:50→21:00)
[2018-10-30 08:16] VITALS: BP 159/91; PULSE 87; RESP 16
[2018-10-30] MEDS: HEPARIN 5,000 UNIT/1 ML VIAL SC SCH ×3 (09:00→21:00)
[2018-10-30] MEDS: ARTIFICIAL TEARS 15 ML OPH BOTH EYES SCH ×4 (09:00→21:00)
[2018-10-30] MEDS: CEPHALEXIN 500 MG CAP PO SCH ×2 (11:36→21:00)
[2018-10-30] MEDS: ALLOPURINOL 100 MG TAB PO SCH (11:36)
[2018-10-30] MEDS: FUROSEMIDE 40 MG TAB PO SCH (11:38)
[2018-10-30] MEDS: LUBIPROSTONE 24 MCG CAP PO SCH ×2 (11:38→21:00)
[2018-10-30] MEDS: BALSAM PERU/CASTOR OIL 60 GM TUBE TOP SCH ×2 (11:39→21:00)
[2018-10-30] MEDS: ERGOCALCIFEROL 50,000 UNIT CAP PO SCH (11:45)
--- NOTE | 2018-10-30 13:52 | PN ---
Date/Time of Note Date/Time of Note DATE: 10/30/18 TIME: 13:45 Assessment/Plan VTE Prophylaxis Risk score (from Nsg)>0 risk: 1 SCD applied (from Nsg): Yes Pharmacological prophylaxis: heparin Lines/Catheters IV Catheter Type (from Nrsg): PERMACATH Urinary Cath still in place: No Assessment/Plan Hospital Course 1. ckd, hyperkalemia, resolved . Right chest permcath is not working 2. c diff hx 3. Opiates dependency 4. Morbid obesity. 5. Diabetes. 6. Hypertension, 7. Gout, hx 8. Neuropathy. 9. History of congestive heart failure. 10. weakness 11. deconditioning 12. Non compliance, pt refused V[place], HD 13. Left shoulder chronic pain. Xray was reviewed from the last visit, it is arthrosis left acromioclavicular joint 14. constipation 15. UTI Assessment/Plan -offered pt to replace Permcath but pt she refused. Explained pt risks and benefits, she will not going home without the HD catheter. She said she understands, ordered placed -c/w Keflex BId -start oph. treatment for eye. -calorie count -pt is losing weight - data warehouse developer consult, renal diet - PPI BID -stool softeners/Imodium for diarrhea - Lactobacillus - Physical therapy PER PT - low k diet, cw lasix -Tylenol on as needed headache - HD once a week, unable to perform this week -arrange for SNF with HD placement, pt already discharged, still no placement Result Diagram: 10/30/18 0853 10/30/18 0853 Results 24hrs Laboratory Tests Test 10/29/18 17:48 10/29/18 22:00 10/30/18 08:06 10/30/18 08:53 Bedside Glucose 263 H 162 123 Platelet Count 346 Prothrombin Time 12.4 Prothrombin Time 1.0 Ratio INR International 0.91 Normalized Ratio Activated 32.6 Partial Thromboplast Time Thrombin Time 16.5 Sodium Level 143 Potassium Level 5.2 H Chloride Level 100 Carbon Dioxide Level 27 Anion Gap 16 H Blood Urea Nitrogen 65 H Creatinine 3.56 H Est Glomerular 13 L Filtrat Rate mL/min Glucose Level 126 Calcium Level 9.6 Test 10/30/18 12:50 Bedside Glucose 106 Subjective 24 Hr Interval Summary Eyes: redness (right eye) ENT: other Exam/Review of Systems Exam Vitals Vital Signs Date Temp Pulse Resp B/P (MAP) Pulse Ox O2 O2 Flow FiO2 Time Delivery Rate 10/30/18 98.2 87 16 159/91 98 Room Air 08:16 (113) Intake and Output 10/29/18 10/29/18 10/30/18 1515:00 23:00 07:00 IntakeIntake Total 780 ml 640 ml 120 ml BalanceBalance 780 ml 640 ml 120 ml Exam right chest Permcath Constitutional: alert, oriented Neck: supple Respiratory: clear to auscultation Results Results 24hrs Laboratory Tests Test 10/29/18 17:48 10/29/18 22:00 10/30/18 08:06 10/30/18 08:53 Bedside Glucose 263 H 162 123 Platelet Count 346 Prothrombin Time 12.4 Prothrombin Time 1.0 Ratio INR International 0.91 Normalized Ratio Activated 32.6 Partial Thromboplast Time Thrombin Time 16.5 Sodium Level 143 Potassium Level 5.2 H Chloride Level 100 Carbon Dioxide Level 27 Anion Gap 16 H Blood Urea Nitrogen 65 H Creatinine 3.56 H Est Glomerular 13 L Filtrat Rate mL/min Glucose Level 126 Calcium Level 9.6 Test 10/30/18 12:50 Bedside Glucose 106 Medications Medication Current Medications Acetaminophen (Tylenol Tab) 325 mg Q4H PRN PO MILD PAIN(1-3)OR ELEVATED TEMP Last administered on 10/18/18 09:27; Admin Dose 325 MG; Start 07/20/18 at 23:00 Allopurinol (Zyloprim) 100 mg DAILY PO Last administered on 10/30/18 11:36; A dmin Dose 100 MG; Start 07/21/18 at 09:00 IV Flush (NS 3 ml) 3 ml PER PROTOCOL IV ; Start 07/20/18 at 23:00 Acetaminophen (Tylenol Supp) 650 mg Q6H PRN [place] PAIN LEVEL 1-3 OR FEVER; Start 07/20/18 at 23:00 Bisacodyl (Dulcolax) 5 mg DAILY PRN PO CONSTIPATION Last administered on 10/20/18 09:42; Admin Dose 5 MG; Start 07/20/18 at 23:00 Insulin Aspart (Novolog Insulin Pen) NOVOLOG *MILD* ALGORITHM WITH MEALS BEDTIME SC Last administered on 10/29/18 17:53; Admin Dose 4 UNIT; Start 07/21/18 at 07:50 Ergocalciferol (Drisdol) 50,000 unit Lacy@0900 PO Last administered on 10/30/18 11:45; Admin Dose 50,000 UNIT; Start 07/24/18 at 09:00 Miscellaneous Information 1 ea NOTE XX ; Start 07/20/18 at 23:00 Dextrose (D50w Syringe) 25 ml Q15M PRN IV DECREASED GLUCOSE; Start 07/20/18 at 23:00 Dextrose (D50w Syringe) 50 ml Q15M PRN IV DECREASED GLUCOSE; Start 07/20/18 at 23:00 Melatonin (Melatonin) 3 mg HS PRN PO INSOMNIA Last administered on 10/26/18 23:04; Admin Dose 3 MG; Start 07/20/18 at 23:00 Loratadine (Claritin) 10 mg DAILY PRN PO ALLERGIC REACTION Last administered on 08/07/18 12:48; Admin Dose 10 MG; Start 08/07/18 at 12:30 Hydralazine HCl (Apresoline) 10 mg Q6H PRN PO ELEVATED BLOOD PRESSURE Last administered on 10/30/18 02:18; Admin Dose 10 MG; Start 08/08/18 at 04:30 Hydralazine HCl (Apresoline) 25 mg TID PO Last administered on 10/30/18 11:38; Admin Dose 25 MG; Start 08/08/18 at 13:00 Eye Lubricant (Artificial Tears Oph) 2 drop QID BOTH EYES Last administered on 10/29/18 22:01; Admin Dose 2 DROP; Start 08/09/18 at 11:00 Calcium Carbonate (Tums) 500 mg PRN PRN PO HEARTBURN Last administered on 10/05/18 12:34; Admin Dose 500 MG; Start 08/09/18 at 14:30 Ondansetron HCl (Zofran Tab) 4 mg Q6H PRN PO NAUSEA AND/OR VOMITING Last administered on 09/10/18 07:58; Admin Dose 4 MG; Start 09/03/18 at 16:00 Al Hydrox/Mg Hydrox/Simethicone (Mag-Al Plus) 30 ml Q4H PRN PO GASTROINTESTINAL UPSET; Start 09/10/18 at 18:00 Furosemide (Lasix) 40 mg DAILY PO Last administered on 1/27/19at 11:38; Admin Dose 40 MG; Start 09/21/18 at 14:30 Ondansetron HCl (Zofran Inj) 4 mg Q6H PRN IV NAUSEA AND/OR VOMITING Last administered on 10/15/18at 06:15; Admin Dose 4 MG; Start 09/26/18 at 07:30 Pantoprazole (Protonix Tab) 40 mg BID@06,18 PO Last administered on 10/29/18at 17:57; Admin Dose 40 MG; Start 10/06/18 at 18:00 Phenyleph/Shark Oil/Min Oil/Petrol (Formulation R Oint) 1 applic PRN PRN [place] HEMORROID PAIN/ITCHING Last administered on 10/16/18at 08:32; Admin Dose 1 APPLIC; Start 10/08/18 at 02:28 Lactulose (Enulose) 20 gm Q6H PRN PO constipation; Start 10/08/18 at 12:00 Docusate Sodium (Colace) 200 mg HS PO Last administered on 10/29/18at 21:55; Admin Dose 200 MG; Start 10/08/18 at 21:00 Tramadol HCl (Ultram) 100 mg Q6H PRN PO PAIN LEVEL 6-10 Last administered on 10/30/18at 08:01; Admin Dose 100 MG; Start 10/09/18 at 18:30 Albumin Human 250 ml @ 250 mls/hr WITH DIALYSIS PRN IV SBP<90; Start 10/11/18 at 12:30 Sodium Chloride (NS) -To prime the dialy... DIRECTED FOR HD PRN IV SBP<90; Start 10/11/18 at 12:30 Lubiprostone (Amitiza) 24 mcg BID PO Last administered on 10/30/18at 11:38; Admin Dose 24 MCG; Start 10/12/18 at 10:30 Heparin Sodium (Porcine) (Heparin (1000 Units/ml)) 4,700 unit AFTER DIALYSIS CATHETER Last administered on 10/12/18at 23:36; Admin Dose 4,700 UNIT; Start 10/12/18 at 22:30 Heparin Sodium (Porcine) (Heparin (5000 Units/1ml)) 5,000 unit BID SC Last administered on 10/30/18at 11:47; Admin Dose 5,000 UNIT; Start 10/15/18 at 13:30 Loperamide HCl (Imodium Cap) 2 mg QID PRN PO DIARRHEA; Start 10/23/18 at 18:30 Cephalexin (Keflex) 500 mg Q12 PO Last administered on 10/30/18at 11:36; Admin Dose 500 MG; Start 10/29/18 at 12:30 Neomycin/ Polymyxin/ Dexamethasone (Maxitrol Oph Susp) 1 drop QID RIGHT EYE ; Start 10/30/18 at 17:00; Status WILLY FERNANDEZ Oct 30, 2018 13:51
[2018-10-30] MEDS: NEOMYC/POLYMYX/DEXAMETH OPH 5 ML RIGHT EYE SCH ×2 (17:00→21:00)
[2018-10-30 20:00] VITALS: BP 95/50; PULSE 98; RESP 16
[2018-10-30] MEDS: DOCUSATE SODIUM 100 MG CAP PO SCH (21:00)
[2018-10-31 01:34] VITALS: BP 92/54; PULSE 86; RESP 16
[2018-10-31] MEDS: PANTOPRAZOLE (EC) 40 MG TAB PO SCH ×2 (05:05→18:45)
[2018-10-31] MEDS: traMADol 50 MG TAB PO PRN ×3 (05:24→21:37)
[2018-10-31 08:09] VITALS: BP 151/81; PULSE 88; RESP 18
[2018-10-31] MEDS: BALSAM PERU/CASTOR OIL 60 GM TUBE TOP SCH ×2 (09:00→21:00)
[2018-10-31] MEDS: HEPARIN 5,000 UNIT/1 ML VIAL SC SCH ×2 (09:00→21:41)
[2018-10-31] MEDS: ARTIFICIAL TEARS 15 ML OPH BOTH EYES SCH ×4 (09:00→21:00)
[2018-10-31] MEDS: INSULIN ASPART [NOVOLOG] 3 ML PEN SC SCH ×4 (09:20→21:00)
[2018-10-31] MEDS: GABAPENTIN 100 MG CAP PO SCH ×2 (09:22→21:32)
[2018-10-31] MEDS: FUROSEMIDE 40 MG TAB PO SCH (09:22)
[2018-10-31] MEDS: CEPHALEXIN 500 MG CAP PO SCH ×2 (09:23→21:37)
[2018-10-31] MEDS: ALLOPURINOL 100 MG TAB PO SCH (09:23)
[2018-10-31] MEDS: LUBIPROSTONE 24 MCG CAP PO SCH ×2 (09:23→21:00)
[2018-10-31] MEDS: NEOMYC/POLYMYX/DEXAMETH OPH 5 ML RIGHT EYE SCH ×4 (09:26→21:00)
--- NOTE | 2018-10-31 12:38 | PN ---
Date/Time of Note Date/Time of Note DATE: 10/31/18 TIME: 12:38 Assessment/Plan VTE Prophylaxis Risk score (from Ns)>0 risk: 6 SCD applied (from [facility]): No SCD contraindicated: other Pharmacological prophylaxis: heparin Lines/Catheters IV Catheter Type (from [facility] Permacath Urinary Cath still in place: No Assessment/Plan Hospital Course 1. ckd, hyperkalemia, resolved . Right chest permcath is not working 2. c diff hx 3. Opiates dependency 4. Morbid obesity. 5. Diabetes. 6. Hypertension, 7. Gout, hx 8. Neuropathy. 9. History of congestive heart failure. 10. weakness 11. deconditioning 12. Non compliance, pt refused V[place], HD 13. Left shoulder chronic pain. Xray was reviewed from the last visit, it is arthrosis left acromioclavicular joint 14. constipation 15. UTI Assessment/Plan -c/w eye drops -pt refused Permcath replacement -Xray chest -tomorrow NPO for Permacath placement Result Diagram: 10/30/18 0853 10/30/18 0853 Results 24hrs Laboratory Tests Test 10/30/18 12:50 10/30/18 18:01 10/31/18 09:19 10/31/18 12:11 Bedside Glucose 106 139 139 White Blood Count Pending Red Blood Count Pending Hemoglobin Pending Hematocrit Pending Mean Corpuscular Pending Volume Mean Corpuscular Pending Hemoglobin Mean Corpuscular Pending Hemoglobin Concent Red Cell Pending Distribution Width Platelet Count Pending Mean Platelet Volume Pending Subjective 24 Hr Interval Summary Free Text/Dictation feeling sick Eyes: redness (right eye) Exam/Review of Systems Exam Vitals Vital Signs Date Temp Pulse Resp B/P (MAP) Pulse Ox O2 O2 Flow FiO2 Time Delivery Rate 10/31/18 98.0 88 18 151/81 96 08:09 (104) 10/31/18 Room Air 01:34 Intake and Output 10/30/18 10/30/18 10/31/18 1515:00 23:00 07:00 IntakeIntake Total 390 ml 480 ml 240 ml BalanceBalance 390 ml 480 ml 240 ml Exam right chest Perm cath Cardiovascular: regular rate and rhythm Gastrointestinal: soft Results Results 24hrs Laboratory Tests Test 10/30/18 12:50 10/30/18 18:01 10/31/18 09:19 10/31/18 12:11 Bedside Glucose 106 139 139 White Blood Count Pending Red Blood Count Pending Hemoglobin Pending Hematocrit Pending Mean Corpuscular Pending Volume Mean Corpuscular Pending Hemoglobin Mean Corpuscular Pending Hemoglobin Concent Red Cell Pending Distribution Width Platelet Count Pending Mean Platelet Volume Pending Medications Medication Current Medications Acetaminophen (Tylenol Tab) 325 mg Q4H PRN PO MILD PAIN(1-3)OR ELEVATED TEMP Last administered on 10/18/18 09:27; Admin Dose 325 MG; Start 07/20/18 at 23:00 Allopurinol (Zyloprim) 100 mg DAILY PO Last administered on 10/31/18 09:23; Admin Dose 100 MG; Start 07/21/18 at 09:00 IV Flush (NS 3 ml) 3 ml PER PROTOCOL IV ; Start 07/20/18 at 23:00 Acetaminophen (Tylenol Supp) 650 mg Q6H PRN [place] PAIN LEVEL 1-3 OR FEVER; Start 07/20/18 at 23:00 Bisacodyl (Dulcolax) 5 mg DAILY PRN PO CONSTIPATION Last administered on 10/20/18 09:42; Admin Dose 5 MG; Start 07/20/18 at 23:00 Insulin Aspart (Novolog Insulin Pen) NOVOLOG *MILD* ALGORITHM WITH MEALS BEDTIME SC Last administered on 10/29/18 17:53; Admin Dose 4 UNIT; Start 07/21/18 at 07:50 Ergocalciferol (Drisdol) 50,000 unit Lacy@0900 PO Last administered on 10/30/18 11:45; Admin Dose 50,000 UNIT; Start 07/24/18 at 09:00 Miscellaneous Information 1 ea NOTE XX ; Start 07/20/18 at 23:00 Dextrose (D50w Syringe) 25 ml Q15M PRN IV DECREASED GLUCOSE; Start 07/20/18 at 23:00 Dextrose (D50w Syringe) 50 ml Q15M PRN IV DECREASED GLUCOSE; Start 07/20/18 at 23:00 Melatonin (Melatonin) 3 mg HS PRN PO INSOMNIA Last administered on 10/26/18 23:04; Admin Dose 3 MG; Start 07/20/18 at 23:00 Loratadine (Claritin) 10 mg DAILY PRN PO ALLERGIC REACTION Last administered on 08/07/18 12:48; Admin Dose 10 MG; Start 08/07/18 at 12:30 Hydralazine HCl (Apresoline) 10 mg Q6H PRN PO ELEVATED BLOOD PRESSURE Last administered on 10/30/18 02:18; Admin Dose 10 MG; Start 08/08/18 at 04:30 Hydralazine HCl (Apresoline) 25 mg TID PO Last administered on 10/31/18 09:23; Admin Dose 25 MG; Start 08/08/18 at 13:00 Eye Lubricant (Artificial Tears Oph) 2 drop QID BOTH EYES Last administered on 10/29/18 22:01; Admin Dose 2 DROP; Start 08/09/18 at 11:00 Calcium Carbonate (Tums) 500 mg PRN PRN PO HEARTBURN Last administered on 10/05/18 12:34; Admin Dose 500 MG; Start 08/09/18 at 14:30 Ondansetron HCl (Zofran Tab) 4 mg Q6H PRN PO NAUSEA AND/OR VOMITING Last administered on 09/10/18at 07:58; Admin Dose 4 MG; Start 09/03/18 at 16:00 Al Hydrox/Mg Hydrox/Simethicone (Mag-Al Plus) 30 ml Q4H PRN PO GASTROINTESTINAL UPSET; Start 09/10/18 at 18:00 Furosemide (Lasix) 40 mg DAILY PO Last administered on 10/31/18 09:22; Admin Dose 40 MG; Start 09/21/18 at 14:30 Ondansetron HCl (Zofran Inj) 4 mg Q6H PRN IV NAUSEA AND/OR VOMITING Last administered on 10/15/18 06:15; Admin Dose 4 MG; Start 09/26/18 at 07:30 Pantoprazole (Protonix Tab) 40 mg BID@ PO Last administered on 10/30/18 1 9:49; Admin Dose 40 MG; Start 10/06/18 at 18:00 Phenyleph/Shark Oil/Min Oil/Petrol (Formulation R Oint) 1 applic PRN PRN [place] HEMORROID PAIN/ITCHING Last administered on 10/16/18 08:32; Admin Dose 1 AP PLIC; Start 10/08/18 at 02:28 Lactulose (Enulose) 20 gm Q6H PRN PO constipation; Start 10/08/18 at 12:00 Docusate Sodium (Colace) 200 mg HS PO Last administered on 10/29/18 21:55; Admin Dose 200 MG; Start 10/08/18 at 21:00 Tramadol HCl (Ultram) 100 mg Q6H PRN PO PAIN LEVEL 6-10 Last administered on 10/31/18 05:24; Admin Dose 100 MG; Start 10/09/18 at 18:30 Albumin Human 250 ml @ 250 mls/hr WITH DIALYSIS PRN IV SBP<90; Start 10/11/18 at 12:30 Sodium Chloride (NS) -To prime the dialy... DIRECTED FOR HD PRN IV SBP<90; Start 10/11/18 at 12:30 Lubiprostone (Amitiza) 24 mcg BID PO Last administered on 10/31/18 09:23; Admin Dose 24 MCG; Start 10/12/18 at 10:30 Heparin Sodium (Porcine) (Heparin (1000 Units/ml)) 4,700 unit AFTER DIALYSIS CATHETER Last administered on 10/12/18 23:36; Admin Dose 4,700 UNIT; Start 10/12/18 at 22:30 Heparin Sodium (Porcine) (Heparin (5000 Units/1ml)) 5,000 unit BID SC Last administered on 10/30/18 11:47; Admin Dose 5,000 UNIT; Start 10/15/18 at 13:30 Loperamide HCl (Imodium Cap) 2 mg QID PRN PO DIARRHEA Last administered on 10/30/18 15:45; Admin Dose 2 MG; Start 10/23/18 at 18:30 Cephalexin (Keflex) 500 mg Q12 PO Last administered on 10/31/18 09:23; Admin Dose 500 MG; Start 10/29/18 at 12:30 Neomycin/ Polymyxin/ Dexamethasone (Maxitrol Oph Susp) 1 drop QID RIGHT EYE Last administered on 10/31/18 09:26; Admin Dose 1 DROP; Start 10/30/18 at 17:00 Gabapentin (Neurontin) 100 mg BID PO Last administered on 10/31/18 09:22; Admin Dose 100 MG; Start 10/31/18 at 09:00 WILLY MEDEIROS Oct 31, 2018 12:38
[2018-10-31 14:00] VITALS: BP 116/82; PULSE 88; RESP 18
[2018-10-31 20:45] VITALS: BP 119/75; PULSE 74; RESP 20
[2018-10-31] MEDS: DOCUSATE SODIUM 100 MG CAP PO SCH (21:00)
[2018-11-01 03:11] VITALS: BP 130/82; PULSE 86; RESP 18
[2018-11-01] MEDS: traMADol 50 MG TAB PO PRN ×2 (05:25→19:36)
[2018-11-01] MEDS: PANTOPRAZOLE (EC) 40 MG TAB PO SCH ×2 (06:00→18:09)
[2018-11-01 07:55] VITALS: BP 136/78; PULSE 82; RESP 19
[2018-11-01] MEDS: ARTIFICIAL TEARS 15 ML OPH BOTH EYES SCH ×4 (09:00→20:50)
[2018-11-01] MEDS: BALSAM PERU/CASTOR OIL 60 GM TUBE TOP SCH ×2 (09:00→20:40)
[2018-11-01] MEDS: LUBIPROSTONE 24 MCG CAP PO SCH ×2 (09:00→20:38)
[2018-11-01] MEDS: HEPARIN 5,000 UNIT/1 ML VIAL SC SCH ×2 (09:00→20:43)
[2018-11-01] MEDS: FUROSEMIDE 40 MG TAB PO SCH ×2 (09:00→13:41)
[2018-11-01] MEDS: INSULIN ASPART [NOVOLOG] 3 ML PEN SC SCH ×4 (09:24→20:56)
[2018-11-01] MEDS: NEOMYC/POLYMYX/DEXAMETH OPH 5 ML RIGHT EYE SCH ×4 (09:25→20:40)
[2018-11-01] MEDS: ALLOPURINOL 100 MG TAB PO SCH (09:26)
[2018-11-01] MEDS: CEPHALEXIN 500 MG CAP PO SCH ×2 (09:27→20:39)
[2018-11-01] MEDS: GABAPENTIN 100 MG CAP PO SCH ×2 (09:28→20:39)
[2018-11-01] MEDS ORDERED: LIDOCAINE 2% (SDV) 5 ML INJ ONE (10:52)
[2018-11-01] MEDS ORDERED: HEPARIN 1000 UNITS/ML 10 ML INJ ONE (10:52)
--- NOTE | 2018-11-01 13:40 | CONS ---
Assessment/Plan Assessment/Plan Assessment/Plan (Daily) 1 anal pain attributed to anal fissure, pain ressolved on present regimen(Amitiza, stool softeners) 2 C diff hx 3 Opiates dependency 4. Morbid obesity. 5. Diabetes. 6. Hypertension, 7. Gout, hx 8. Neuropathy. 9. History of congestive heart failure. 10. weakness 11. deconditioning Consultation Date/Type/Reason Admit Date/Time Jul 23, 2018 at 16:13 Initial Consult Date 10/06/18 Date/Time of Note DATE: 11/01/18 TIME: 13:39 Exam/Review of Systems Exam Vitals Vital Signs Date Temp Pulse Resp B/P (MAP) Pulse Ox O2 O2 Flow FiO2 Time Delivery Rate 11/01/18 98.2 82 19 136/78 98 07:55 (97) 10/31/18 Room Air 01:34 Intake and Output 10/31/18 10/31/18 11/01/18 1515:00 23:00 07:00 IntakeIntake Total 400 ml BalanceBalance 400 ml Results Result Diagram: 10/31/18 1211 10/31/18 1211 Results 24hrs Laboratory Tests Test 10/31/18 14:16 10/31/18 18:43 10/31/18 21:29 11/01/18 09:23 Bedside Glucose 114 171 153 131 Test 11/01/18 13:29 Bedside Glucose 146 Medications Medication Current Medications Acetaminophen (Tylenol Tab) 325 mg Q4H PRN PO MILD PAIN(1-3)OR ELEVATED TEMP Last administered on 10/18/18at 09:27; Admin Dose 325 MG; Start 07/20/18 at 23:00 Allopurinol (Zyloprim) 100 mg DAILY PO Last administered on 11/01/18at 09:26; Admin Dose 100 MG; Start 07/21/18 at 09:00 IV Flush (NS 3 ml) 3 ml PER PROTOCOL IV ; Start 07/20/18 at 23:00 Acetaminophen (Tylenol Supp) 650 mg Q6H PRN [place] PAIN LEVEL 1-3 OR FEVER; Start 07/20/18 at 23:00 Bisacodyl (Dulcolax) 5 mg DAILY PRN PO CONSTIPATION Last administered on 10/20/18at 09:42; Admin Dose 5 MG; Start 07/20/18 at 23:00 Insulin Aspart (Novolog Insulin Pen) NOVOLOG *MILD* ALGORITHM WITH MEALS BEDTIME SC Last administered on 10/31/18 18:48; Admin Dose 1 UNIT; Start 07/21/18 at 07:50 Ergocalciferol (Drisdol) 50,000 unit Lacy@0900 PO Last administered on 10/30/18 11:45; Admin Dose 50,000 UNIT; Start 07/24/18 at 09:00 Miscellaneous Information 1 ea NOTE XX ; Start 07/20/18 at 23:00 Dextrose (D50w Syringe) 25 ml Q15M PRN IV DECREASED GLUCOSE; Start 07/20/18 at 23:00 Dextrose (D50w Syringe) 50 ml Q15M PRN IV DECREASED GLUCOSE; Start 07/20/18 at 23:00 Melatonin (Melatonin) 3 mg HS PRN PO INSOMNIA Last administered on 10/26/18 23:04; Admin Dose 3 MG; Start 07/20/18 at 23:00 Loratadine (Claritin) 10 mg DAILY PRN PO ALLERGIC REACTION Last administered on 08/07/18 12:48; Admin Dose 10 MG; Start 08/07/18 at 12:30 Hydralazine HCl (Apresoline) 10 mg Q6H PRN PO ELEVATED BLOOD PRESSURE Last adm inistered on 10/30/18 02:18; Admin Dose 10 MG; Start 08/08/18 at 04:30 Hydralazine HCl (Apresoline) 25 mg TID PO Last administered on 10/31/18 13:38; Admin Dose 25 MG; Start 08/08/18 at 13:00 Eye Lubricant (Artificial Tears Oph) 2 drop QID BOTH EYES Last administered on 10/29/18 22:01; Admin Dose 2 DROP; Start 08/09/18 at 11:00 Calcium Carbonate (Tums) 500 mg PRN PRN PO HEARTBURN Last administered on 10/05/18 12:34; Admin Dose 500 MG; Start 08/09/18 at 14:30 Ondansetron HCl (Zofran Tab) 4 mg Q6H PRN PO NAUSEA AND/OR VOMITING Last administered on 09/10/18 07:58; Admin Dose 4 MG; Start 09/03/18 at 16:00 Al Hydrox/Mg Hydrox/Simethicone (Mag-Al Plus) 30 ml Q4H PRN PO GASTROINTESTINAL UPSET; Start 09/10/18 at 18:00 Furosemide (Lasix) 40 mg DAILY PO Last administered on 10/31/18 09:22; Admin Dose 40 MG; Start 09/21/18 at 14:30 Ondansetron HCl (Zofran Inj) 4 mg Q6H PRN IV NAUSEA AND/OR VOMITING Last administered on 10/15/18 06:15; Admin Dose 4 MG; Start 09/26/18 at 07:30 Pantoprazole (Protonix Tab) 40 mg BID@06,18 PO Last administered on 10/31/18 18:45; Admin Dose 40 MG; Start 10/06/18 at 18:00 Phenyleph/Shark Oil/Min Oil/Petrol (Formulation R Oint) 1 applic PRN PRN VT HE MORROID PAIN/ITCHING Last administered on 10/16/18 08:32; Admin Dose 1 APPLIC; Start 10/08/18 at 02:28 Lactulose (Enulose) 20 gm Q6H PRN PO constipation; Start 10/08/18 at 12:00 Docusate Sodium (Colace) 200 mg HS PO Last administered on 10/29/18 21:55; Admin Dose 200 MG; Start 10/08/18 at 21:00 Tramadol HCl (Ultram) 100 mg Q6H PRN PO PAIN LEVEL 6-10 Last administered on 11/01/18 05:25; Admin Dose 100 MG; Start 10/09/18 at 18:30 Albumin Human 250 ml @ 250 mls/hr WITH DIALYSIS PRN IV SBP<90; Start 10/11/18 at 12:30 Sodium Chloride (NS) -To prime the dialy... DIRECTED FOR HD PRN IV SBP<90; Start 10/11/18 at 12:30 Lubiprostone (Amitiza) 24 mcg BID PO Last administered on 10/31/18 09:23; A dmin Dose 24 MCG; Start 10/12/18 at 10:30 Heparin Sodium (Porcine) (Heparin (1000 Units/ml)) 4,700 unit AFTER DIALYSIS CATHETER Last administered on 10/12/18at 23:36; Admin Dose 4,700 UNIT; Start 10/12/18 at 22:30 Heparin Sodium (Porcine) (Heparin (5000 Units/1ml)) 5,000 unit BID SC Last administered on 10/31/18at 21:41; Admin Dose 5,000 UNIT; Start 10/15/18 at 13:30 Loperamide HCl (Imodium Cap) 2 mg QID PRN PO DIARRHEA Last administered on 10/30/18 15:45; Admin Dose 2 MG; Start 10/23/18 at 18:30 Cephalexin (Keflex) 500 mg Q12 PO Last administered on 11/01/18 09:27; Admin Dose 500 MG; Start 10/29/18 at 12:30 Neomycin/ Polymyxin/ Dexamethasone (Maxitrol Oph Susp) 1 drop QID RIGHT EYE Last administered on 11/01/18 09:25; Admin Dose 1 DROP; Start 10/30/18 at 17:00 Gabapentin (Neurontin) 100 mg BID PO Last administered on 11/01/18 09:28; Admin Dose 100 MG; Start 10/31/18 at 09:00 DIMITRY WHITE MD Nov 01, 2018 13:40
--- NOTE | 2018-11-01 16:58 | PN ---
Date/Time of Note Date/Time of Note DATE: 11/01/18 TIME: 16:54 Assessment/Plan VTE Prophylaxis Risk score (from Nsg)>0 risk: 6 SCD applied (from Ns): No SCD contraindicated: low risk/ambulating Pharmacological prophylaxis: NA/contraindicated Pharm contraindication: low risk/ambulating Lines/Catheters IV Catheter Type (from Nrs): permacath Urinary Cath still in place: No Assessment/Plan Hospital Course 58 y/o with 1. . ckd iii-iv now with the complications of hyperkalemia, patient has been refusing Kayexalate Veltassa has also been refusing dialysis, patient was explained the risks and consequences and patient completely understands the risks and consequences, now agreed, on and off Hd once a week 2. c diff hx 3. Chronic kidney disease, 4. Morbid obesity. 5. Diabetes. 6. Hypertension, 7. Gout.hx 8. Neuropathy. 9. History of congestive heart failure. 10 weakness 11 deconditioning 13 Left shoulde pain, TTP ? Frozen shoulder , shoulder impingement 14 s/p Fall ? AMS confusion likley due to UTI 15 uti klebsiella and enterococcus 16 diarrhea 15 vomtiing/? contipation> refuse labs again 16 Dizziness> chronic ? Postural 17 UTI 18 rectal pain with fissure Plan -Spoke to the patient was sent here down for a permacath placement however patient did not have any IV access cannot obtain a PICC line since the patient is a dialysis patient to preserve for future access for AV fistula She said that she is not going to get a permacath until she gets it under general anesthesia Try to see if we could get a midline, IV or central Last option is a PICC line Wanted to try this permacatheter as the 3 the dialysis nurse was ready available to try hemodialysis on her since the catheter was flushing according to surgery nurse but patient does not want to try it anymore said she is try tired and it gets up clogged easily and does not want to take any more chances cw With [facility] arrange for SNIF with HD placement,pt already discharged, Spoke to CM , still no placement Result Diagram: 10/31/18 1211 10/31/18 1211 Results 24hrs Laboratory Tests Test 10/31/18 18:43 10/31/18 21:29 11/01/18 09:23 11/01/18 13:29 Bedside Glucose 171 153 131 146 Subjective 24 Hr Interval Summary Free Text/Dictation She went for permacath placement however could not get an IV was sent upstairs PICC line could not be done as patient is a dialysis patient Surgery needs nurse came to check of the permacath can be flushed however it can be flushed patient refusing to use this permacatheter said that every time they are using the permacatheter it gets the machine short soft and she is not willing to take any more chances Spoke to the dialysis nurse in [facility] was present at the bedside to try and challenge this catheter however patient adamantly refused said she does not want to try it anymore and wants a new catheter otherwise does not want any catheter Exam/Review of Systems Exam Vitals Vital Signs Date Temp Pulse Resp B/P (MAP) Pulse Ox O2 O2 Flow FiO2 Time Delivery Rate 11/01/18 98.2 82 19 136/78 98 07:55 (97) 10/31/18 Room Air 01:34 Intake and Output 10/31/18 10/31/18 11/01/18 1515:00 23:00 07:00 IntakeIntake Total 400 ml BalanceBalance 400 ml Exam right chest Perm cath, obese Cardiovascular: regular rate and rhythm Gastrointestinal: soft Tender to touch on everywhere on exam Results Results 24hrs Laboratory Tests Test 10/31/18 18:43 10/31/18 21:29 11/01/18 09:23 11/01/18 13:29 Bedside Glucose 171 153 131 146 Medications Medication Current Medications Acetaminophen (Tylenol Tab) 325 mg Q4H PRN PO MILD PAIN(1-3)OR ELEVATED TEMP Last administered on 10/18/18at 09:27; Admin Dose 325 MG; Start 07/20/18 at 23:00 Allopurinol (Zyloprim) 100 mg DAILY PO Last administered on 11/01/18at 09:26; Admin Dose 100 MG; Start 07/21/18 at 09:00 IV Flush (NS 3 ml) 3 ml PER PROTOCOL IV ; Start 07/20/18 at 23:00 Acetaminophen (Tylenol Supp) 650 mg Q6H PRN [place] PAIN LEVEL 1-3 OR FEVER; Start 07/20/18 at 23:00 Bisacodyl (Dulcolax) 5 mg DAILY PRN PO CONSTIPATION Last administered on 10/20/18 09:42; Admin Dose 5 MG; Start 07/20/18 at 23:00 Insulin Aspart (Novolog Insulin Pen) NOVOLOG *MILD* ALGORITHM WITH MEALS BEDTIME SC Last administered on 11/01/18 13:35; Admin Dose 1 UNIT; Start 07/21/18 at 07:50 Ergocalciferol (Drisdol) 50,000 unit Lacy@0900 PO Last administered on 10/30/18 11:45; Admin Dose 50,000 UNIT; Start 07/24/18 at 09:00 Miscellaneous Information 1 ea NOTE XX ; Start 07/20/18 at 23:00 Dextrose (D50w Syringe) 25 ml Q15M PRN IV DECREASED GLUCOSE; Start 07/20/18 at 23:00 Dextrose (D50w Syringe) 50 ml Q15M PRN IV DECREASED GLUCOSE; Start 07/20/18 at 23:00 Melatonin (Melatonin) 3 mg HS PRN PO INSOMNIA Last administered on 10/26/18 23:04; Admin Dose 3 MG; Start 07/20/18 at 23:00 Loratadine (Claritin) 10 mg DAILY PRN PO ALLERGIC REACTION Last administered on 08/07/18 12:48; Admin Dose 10 MG; Start 08/07/18 at 12:30 Hydralazine HCl (Apresoline) 10 mg Q6H PRN PO ELEVATED BLOOD PRESSURE Last administered on 10/30/18 02:18; Admin Dose 10 MG; Start 08/08/18 at 04:30 Hydralazine HCl (Apresoline) 25 mg TID PO Last administered on 11/01/18 13:39; Admin Dose 25 MG; Start 08/08/18 at 13:00 Eye Lubricant (Artificial Tears Oph) 2 drop QID BOTH EYES Last administered on 10/29/18 22:01; Admin Dose 2 DROP; Start 08/09/18 at 11:00 Calcium Carbonate (Tums) 500 mg PRN PRN PO HEARTBURN Last administered on 10/05/18 12:34; Admin Dose 500 MG; Start 08/09/18 at 14:30 Ondansetron HCl (Zofran Tab) 4 mg Q6H PRN PO NAUSEA AND/OR VOMITING Last administered on 09/10/18 07:58; Admin Dose 4 MG; Start 09/03/18 at 16:00 Al Hydrox/Mg Hydrox/Simethicone (Mag-Al Plus) 30 ml Q4H PRN PO GASTROINTESTINAL UPSET; Start 09/10/18 at 18:00 Furosemide (Lasix) 40 mg DAILY PO Last administered on 11/01/18at 13:41; Admin Dose 40 MG; Start 09/21/18 at 14:30 Ondansetron HCl (Zofran Inj) 4 mg Q6H PRN IV NAUSEA AND/OR VOMITING Last administered on 10/15/18 06:15; Admin Dose 4 MG; Start 09/26/18 at 07:30 Pantoprazole (Protonix Tab) 40 mg BID@06,18 PO Last administered on 10/31/18 18:45; Admin Dose 40 MG; Start 10/06/18 at 18:00 Phenyleph/Shark Oil/Min Oil/Petrol (Formulation R Oint) 1 applic PRN PRN AL HEMORROID PAIN/ITCHING Last administered on 10/16/18at 08:32; Admin Dose 1 APPLIC; Start 10/08/18 at 02:28 Lactulose (Enulose) 20 gm Q6H PRN PO constipation; Start 10/08/18 at 12:00 Docusate Sodium (Colace) 200 mg HS PO Last administered on 10/29/18at 21:55; Admin Dose 200 MG; Start 10/08/18 at 21:00 Tramadol HCl (Ultram) 100 mg Q6H PRN PO PAIN LEVEL 6-10 Last administered on 11/01/18at 05:25; Admin Dose 100 MG; Start 10/09/18 at 18:30 Albumin Human 250 ml @ 250 mls/hr WITH DIALYSIS PRN IV SBP<90; Start 10/11/18 at 12:30 Sodium Chloride (NS) -To prime the dialy... DIRECTED FOR HD PRN IV SBP<90; Start 10/11/18 at 12:30 Lubiprostone (Amitiza) 24 mcg BID PO Last administered on 10/31/18at 09:23; Admin Dose 24 MCG; Start 10/12/18 at 10:30 Heparin Sodium (Porcine) (Heparin (1000 Units/ml)) 4,700 unit AFTER DIALYSIS CATHETER Last administered on 10/12/18at 23:36; Admin Dose 4,700 UNIT; Start 10/12/18 at 22:30 Heparin Sodium (Porcine) (Heparin (5000 Units/1ml)) 5,000 unit BID SC Last administered on 10/31/18at 21:41; Admin Dose 5,000 UNIT; Start 10/15/18 at 13:30 Loperamide HCl (Imodium Cap) 2 mg QID PRN PO DIARRHEA Last administered on 10/30/18at 15:45; Admin Dose 2 MG; Start 10/23/18 at 18:30 Cephalexin (Keflex) 500 mg Q12 PO Last administered on 11/01/18at 09:27; Admin Dose 500 MG; Start 10/29/18 at 12:30 Neomycin/ Polymyxin/ Dexamethasone (Maxitrol Oph Susp) 1 drop QID RIGHT EYE Last administered on 11/01/18at 13:31; Admin Dose 1 DROP; Start 10/30/18 at 17:00 Gabapentin (Neurontin) 100 mg BID PO Last administered on 11/01/18 09:28; Admin Dose 100 MG; Start 10/31/18 at 09:00 KOFI SWANN MD Nov 01, 2018 16:58
[2018-11-01 17:51] VITALS: BP 138/80; RESP 19
[2018-11-01 20:21] VITALS: BP 136/60; PULSE 84; RESP 19
[2018-11-01] MEDS: DOCUSATE SODIUM 100 MG CAP PO SCH (20:39)
[2018-11-02 01:31] VITALS: BP 132/60; PULSE 76; RESP 19
[2018-11-02] MEDS: PANTOPRAZOLE (EC) 40 MG TAB PO SCH ×2 (06:00→17:53)
[2018-11-02 08:31] VITALS: BP 96/43; PULSE 75; RESP 18
[2018-11-02] MEDS: CEPHALEXIN 500 MG CAP PO SCH ×2 (08:41→21:41)
[2018-11-02] MEDS: GABAPENTIN 100 MG CAP PO SCH ×2 (08:41→21:41)
[2018-11-02] MEDS: ALLOPURINOL 100 MG TAB PO SCH (08:41)
[2018-11-02] MEDS: traMADol 50 MG TAB PO PRN ×3 (08:42→21:40)
[2018-11-02] MEDS: LUBIPROSTONE 24 MCG CAP PO SCH ×2 (08:43→21:40)
[2018-11-02] MEDS: FUROSEMIDE 40 MG TAB PO SCH ×2 (08:44→17:53)
[2018-11-02] MEDS: HEPARIN 5,000 UNIT/1 ML VIAL SC SCH ×2 (08:45→21:00)
[2018-11-02] MEDS: NEOMYC/POLYMYX/DEXAMETH OPH 5 ML RIGHT EYE SCH ×4 (08:47→21:41)
[2018-11-02] MEDS: ARTIFICIAL TEARS 15 ML OPH BOTH EYES SCH ×4 (08:47→21:40)
[2018-11-02] MEDS: BALSAM PERU/CASTOR OIL 60 GM TUBE TOP SCH ×2 (08:50→21:41)
[2018-11-02] MEDS: INSULIN ASPART [NOVOLOG] 3 ML PEN SC SCH ×4 (09:08→21:43)
--- NOTE | 2018-11-02 11:33 | PN ---
Date/Time of Note Date/Time of Note DATE: 11/02/18 TIME: 11:33 Assessment/Plan VTE Prophylaxis Risk score (from Nsg)>0 risk: 7 SCD applied (from Ns): No SCD contraindicated: low risk/ambulating Pharmacological prophylaxis: NA/contraindicated, heparin Pharm contraindication: low risk/ambulating Lines/Catheters IV Catheter Type (from Nrs): Permacath Urinary Cath still in place: No Assessment/Plan Hospital Course 58 y/o with 1. . ckd iii-iv now with the complications of hyperkalemia, patient has been refusing Kayexalate Veltassa has also been refusing dialysis, patient was explained the risks and consequences and patient completely understands the risks and consequences, now agreed, on and off Hd once a week 2. c diff hx 3. Chronic kidney disease, 4. Morbid obesity. 5. Diabetes. 6. Hypertension, 7. Gout.hx 8. Neuropathy. 9. History of congestive heart failure. 10 weakness 11 deconditioning 13 Left shoulde pain, TTP ? Frozen shoulder , shoulder impingement 14 s/p Fall ? AMS confusion likley due to UTI 15 uti klebsiella and enterococcus 16 diarrhea 15 vomtiing/? contipation> refuse labs again 16 Dizziness> chronic ? Postural 17 UTI 18 rectal pain with fissure 19 malfunctioning permacath Plan -Spoke to the patient was sent here down for a permacath placement however patient did not have any IV access cannot obtain a PICC line since the patient is a dialysis patient to preserve for future access for AV fistula She said that she is not going to get a permacath until she gets it under general anesthesia Try to see if we could get a midline, IV or central Nurse to try foot IV today She said that she will only wait till 2 PM otherwise she will get the procedure done tomorrow Talk to the registered nurse to try and see if they can get a foot IV CW with the Keflex cw With Lasix She is not cooperative in getting 24-hour urine studies for determining the creatinine clearance arrange for SNIF with HD placement,pt already discharged, Spoke to CM , still no placement Result Diagram: 10/31/18 1211 10/31/18 1211 Results 24hrs Laboratory Tests Test 11/01/18 13:29 11/01/18 18:08 11/01/18 20:47 11/02/18 02:33 Bedside Glucose 146 149 222 H 151 Test 11/02/18 09:00 Bedside Glucose 163 Subjective 24 Hr Interval Summary Free Text/Dictation There has been issues with IV placement before patient goes for permacath Patient is refusing to get do any IV access on the left arm. She is willing to get IV access on the foot Exam/Review of Systems Exam Vitals Vital Signs Date Temp Pulse Resp B/P (MAP) Pulse Ox O2 O2 Flow FiO2 Time Delivery Rate 11/02/18 97.8 75 18 96/43 (60) 97 Room Air 08:31 Intake and Output 11/01/18 11/01/18 11/02/18 1414:59 22:59 06:59 IntakeIntake Total 200 ml BalanceBalance 200 ml Exam right chest Perm cath, obese Cardiovascular: regular rate and rhythm Gastrointestinal: soft Tender to touch on everywhere on exam Results Results 24hrs Laboratory Tests Test 11/01/18 13:29 11/01/18 18:08 11/01/18 20:47 11/02/18 02:33 Bedside Glucose 146 149 222 H 151 Test 11/02/18 09:00 Bedside Glucose 163 Medications Medication Current Medications Acetaminophen (Tylenol Tab) 325 mg Q4H PRN PO MILD PAIN(1-3)OR ELEVATED TEMP Last administered on 10/18/18 09:27; Admin Dose 325 MG; Start 07/20/18 at 23:00 Allopurinol (Zyloprim) 100 mg DAILY PO Last administered on 11/02/18 08:41; Admin Dose 100 MG; Start 07/21/18 at 09:00 IV Flush (NS 3 ml) 3 ml PER PROTOCOL IV ; Start 07/20/18 at 23:00 Acetaminophen (Tylenol Supp) 650 mg Q6H PRN [place] PAIN LEVEL 1-3 OR FEVER; Start 07/20/18 at 23:00 Bisacodyl (Dulcolax) 5 mg DAILY PRN PO CONSTIPATION Last administered on 10/20/18 09:42; Admin Dose 5 MG; Start 07/20/18 at 23:00 Insulin Aspart (Novolog Insulin Pen) NOVOLOG *MILD* ALGORITHM WITH MEALS BEDTIME SC Last administered on 11/02/18 09:08; Admin Dose 1 UNIT; Start 07/21/18 at 07:50 Ergocalciferol (Drisdol) 50,000 unit Lacy@0900 PO Last administered on 10/30/18 11:45; Admin Dose 50,000 UNIT; Start 07/24/18 at 09:00 Miscellaneous Information 1 ea NOTE XX ; Start 07/20/18 at 23:00 Dextrose (D50w Syringe) 25 ml Q15M PRN IV DECREASED GLUCOSE; Start 07/20/18 at 23:00 Dextrose (D50w Syringe) 50 ml Q15M PRN IV DECREASED GLUCOSE; Start 07/20/18 at 23:00 Melatonin (Melatonin) 3 mg HS PRN PO INSOMNIA Last administered on 10/26/18 23:04; Admin Dose 3 MG; Start 07/20/18 at 23:00 Loratadine (Claritin) 10 mg DAILY PRN PO ALLERGIC REACTION Last administered on 08/07/18 12:48; Admin Dose 10 MG; Start 08/07/18 at 12:30 Hydralazine HCl (Apresoline) 10 mg Q6H PRN PO ELEVATED BLOOD PRESSURE Last administered on 10/30/18 02:18; Admin Dose 10 MG; Start 08/08/18 at 04:30 Hydralazine HCl (Apresoline) 25 mg TID PO Last administered on 11/01/18 20:39; Admin Dose 25 MG; Start 08/08/18 at 13:00 Eye Lubricant (Artificial Tears Oph) 2 drop QID BOTH EYES Last administered on 11/01/18 20:50; Admin Dose 2 DROP; Start 08/09/18 at 11:00 Calcium Carbonate (Tums) 500 mg PRN PRN PO HEARTBURN Last administered on 10/05/18 12:34; Admin Dose 500 MG; Start 08/09/18 at 14:30 Ondansetron HCl (Zofran Tab) 4 mg Q6H PRN PO NAUSEA AND/OR VOMITING Last administered on 09/10/18 07:58; Admin Dose 4 MG; Start 09/03/18 at 16:00 Al Hydrox/Mg Hydrox/Simethicone (Mag-Al Plus) 30 ml Q4H PRN PO GASTROINTESTINAL UPSET; Start 09/10/18 at 18:00 Furosemide (Lasix) 40 mg DAILY PO Last administered on 11/01/18 13:41; Admin Dose 40 MG; Start 09/21/18 at 14:30 Ondansetron HCl (Zofran Inj) 4 mg Q6H PRN IV NAUSEA AND/OR VOMITING Last administered on 10/15/18 06:15; Admin Dose 4 MG; Start 09/26/18 at 07:30 Pantoprazole (Protonix Tab) 40 mg BID@06,18 PO Last administered on 11/01/18 18:09; Admin Dose 40 MG; Start 10/06/18 at 18:00 Phenyleph/Shark Oil/Min Oil/Petrol (Formulation R Oint) 1 applic PRN PRN MS HEMORROID PAIN/ITCHING Last administered on 10/16/18 08:32; Admin Dose 1 APPLIC; Start 10/08/18 at 02:28 Lactulose (Enulose) 20 gm Q6H PRN PO constipation; Start 10/08/18 at 12:00 Docusate Sodium (Colace) 200 mg HS PO Last administered on 10/29/18 21:55; Admin Dose 200 MG; Start 10/08/18 at 21:00 Tramadol HCl (Ultram) 100 mg Q6H PRN PO PAIN LEVEL 6-10 Last administered on 11/02/18 08:42; Admin Dose 100 MG; Start 10/09/18 at 18:30 Albumin Human 250 ml @ 250 mls/hr WITH DIALYSIS PRN IV SBP<90; Start 10/11/18 at 12:30 Sodium Chloride (NS) -To prime the dialy... DIRECTED FOR HD PRN IV SBP<90; Start 10/11/18 at 12:30 Lubiprostone (Amitiza) 24 mcg BID PO Last administered on 11/01/18 20:38; Admin Dose 24 MCG; Start 10/12/18 at 10:30 Heparin Sodium (Porcine) (Heparin (1000 Units/ml)) 4,700 unit AFTER DIALYSIS CATHETER Last administered on 10/12/18 23:36; Admin Dose 4,700 UNIT; Start 10/12/18 at 22:30 Heparin Sodium (Porcine) (Heparin (5000 Units/1ml)) 5,000 unit BID SC Last administered on 10/31/18 21:41; Admin Dose 5,000 UNIT; Start 10/15/18 at 13:30 Loperamide HCl (Imodium Cap) 2 mg QID PRN PO DIARRHEA Last administered on 1/27/19at 15:45; Admin Dose 2 MG; Start 10/23/18 at 18:30 Cephalexin (Keflex) 500 mg Q12 PO Last administered on 11/02/18 08:41; Admin Dose 500 MG; Start 10/29/18 at 12:30 Neomycin/ Polymyxin/ Dexamethasone (Maxitrol Oph Susp) 1 drop QID RIGHT EYE Last administered on 11/02/18 08:47; Admin Dose 1 DROP; Start 10/30/18 at 17:00 Gabapentin (Neurontin) 100 mg BID PO Last administered on 11/02/18 08:41; Admin Dose 100 MG; Start 10/31/18 at 09:00 KOFI SWANN MD Nov 02, 2018 11:33
[2018-11-02 14:03] VITALS: BP 132/70; PULSE 51; RESP 20
[2018-11-02 19:15] VITALS: BP 118/54; PULSE 85; RESP 20
[2018-11-02] MEDS: DOCUSATE SODIUM 100 MG CAP PO SCH (21:00)
[2018-11-03] VITALS (31 sets, daily range): BP systolic 117–201; BP diastolic 51–102; PULSE 65–97; RESP 14–22
[2018-11-03] MEDS: traMADol 50 MG TAB PO PRN ×3 (01:42→20:45)
[2018-11-03] MEDS: PANTOPRAZOLE (EC) 40 MG TAB PO SCH ×2 (06:00→17:44)
[2018-11-03] MEDS ORDERED: FENTAnyl 50 MCG/ML VIAL ONE (06:33)
[2018-11-03] MEDS ORDERED: LIDOCAINE 2% (SDV) 5 ML INJ ONE (06:33)
[2018-11-03] MEDS ORDERED: PROPOFOL 20 ML ONE (06:33)
[2018-11-03] MEDS ORDERED: GLYCOPYRROLATE 0.4 MG INJ ONE (06:33)
[2018-11-03] MEDS ORDERED: NEOSTIGMINE 3 MG/3 ML SYRINGE ONE (06:33)
[2018-11-03] MEDS ORDERED: MIDAZOLAM 1 MG/ML 2 ML INJ ONE ×2 (06:33→08:32)
[2018-11-03] MEDS ORDERED: DEXAMETHASONE 4 MG/ML 5 ML INJ ONE (06:34)
[2018-11-03] MEDS ORDERED: ONDANSETRON 4 MG INJ ONE (06:34)
[2018-11-03] MEDS ORDERED: SEVOFLURANE 15 MIN ONE (07:00)
[2018-11-03] MEDS ORDERED: CEFAZOLIN 1 GM INJ ONE (07:00)
--- NOTE | 2018-11-03 07:38 | HPN ---
Date/Time of Note Date/Time of Note DATE: 11/03/18 TIME: 07:38 Interval H&P Admission Note Pt. seen H&P reviewed: No system changes JESSICA CONTRERAS MD Nov 03, 2018 07:38
--- NOTE | 2018-11-03 07:42 | PREAC ---
Date/Time of Note Date/Time of Note DATE: 11/03/18 TIME: 06:29 Anesthesia Eval and Record Evaluation Time Pre-Procedure Interview DATE: 11/03/18 TIME: 06:29 Age 58 Sex female NPO: 8 hrs Preoperative diagnosis Non FuncTIoning Perma Cath Planned procedure Replacement Of Non Functioning Permacath Past Medical History Past Medical History: Includes Cardio: HTN Endo: Diabetes Pulm: Sleep Apnea, Other Neuro: Other Renal: SHERRI, ESRD on dialysis Hepatic: Other GI: Morbid obesity Heme: Anemia Psych: Depression, Anxiety Infection(s): Hep C Recreational drugs: Other : Other Surgery & Anesthesia Issues Hx of difficult intubation, Aspiration risk Meds Anticoagulation: No Beta Mallika within 24 hr: No Reason Beta Mallika not given: Pt. not on B-Amllika Active Scripts [Melatonin] 3 MG TABLET No Conflict Check, 3 MG PO HS PRN for INSOMNIA for 10 Days Prov:BRIAN ROBLEDO MD 10/09/18 Phenyleph/Shark Oil/Mo/Petrol* (FORMULATION R OINT*) 1 Applic Oint, 1 APPLIC WI PRN PRN for HEMORROID PAIN/ITCHING for 28 Days Prov:BRIAN ROBLEDO MD 10/09/18 Nystatin* (Nyamyc* Powder) 1 Applic Powder, 1 APPLIC TOP BID for 14 Days Prov:BRIAN ROBLEDO MD 10/09/18 Lidocaine (LIDOCAINE) 35.44 Gm Oint...g., 1 APPLIC TOP TID for 14 Days Prov:BRIAN ROBLEDO MD 10/09/18 Balsam Mar[place] Oil (Venelex Ointment) 60 Gm Oint..gm., 1 APPLIC TOP BID for 10 Days Prov:BRIAN ROBLEDO MD 10/09/18 Insulin Aspart* (Novolog Insulin Pen*) 100 Unit/Ml Soln, 0 UNIT SC WITH MEALS BEDTIME for 28 Days Prov:BRIAN ROBLEDO MD 10/09/18 Psyllium Husk-Aspartame (Metamucil Fiber Singles Packet) 3.4 Gm Powd.pack, 1 PKT PO BID for 14 Days Prov:BRIAN ROBLEDO MD 10/09/18 Pantoprazole* (Pantoprazole*) 40 Mg Tablet.dr, 40 MG PO BID@06,18 for 28 Days Prov:BRIAN ROBLEDO MD 10/09/18 Ondansetron Hcl* (Ondansetron Hcl*) 4 Mg Tablet, 4 MG PO Q6H PRN for NAUSEA AND/OR VOMITING for 10 Days, TAB Prov:BRIAN ROBLEDO MD 10/09/18 L Acidophil/B Lactis/B Longum (FLORAJEN3 CAPSULE) 460 Mg Capsule, 1 EACH PO BID for 14 Days, CAP Prov:BRIAN ROBLEDO MD 10/09/18 Calcium Carbonate (CALCIUM CARBONATE) 200 Mg Tab.chew, 500 MG PO PRN PRN for HEARTBURN for 28 Days, TAB.CHEW Prov:BRIAN ROBLEDO MD 10/09/18 Bisacodyl* (Bisacodyl*) 5 Mg Tablet.dr, 5 MG PO DAILY PRN for CONSTIPATION for 28 Days Prov:BRIAN ROBLEDO MD 10/09/18 [id number] Hb* (Guaifenesin* DM Syrup) 120 Ml Syrup, 10 ML PO Q4H PRN for COUGH for 7 Days Prov:BRIAN ROBLEDO MD 10/09/18 Lactulose* (Lactulose*) 20 Gm/30 Ml Solution, 20 GM PO Q6H PRN for constipation for 7 Days Prov:BRIAN ROBLEDO MD 10/09/18 Tramadol HCl (Tramadol HCl) 50 Mg Tablet, 100 MG PO Q6H PRN for PAIN LEVEL 6-10 for 14 Days, TAB Prov:BRIAN ROBLEDO MD 10/09/18 Diclofenac Sodium (Diclofenac Sodium) 100 Gm Gel..gram., 2 GM TP QID PRN for PAIN LEVEL 6-10 for 7 Days Prov:BRIAN ROBLEDO MD 10/09/18 Heparin Sodium,Porcine (Heparin Sodium) 5,000 Unit/1 Ml Vial, 5000 UNIT SC Q12 for 30 Days, VIAL Prov:BRIAN ROBLEDO MD 10/09/18 Heparin Sod (Porcine) (Heparin) 1,000 Unit/Ml Soln, 4000 UNIT CATHETER AFTER DIALYSIS for 10 Days Prov:BRIAN ROBLEDO MD 10/09/18 Loratadine* (Loratadine*) 10 Mg Tablet, 10 MG PO DAILY PRN for ALLERGIC REACTION for 10 Days, TAB Prov:BRIAN ROBLEDO MD 10/09/18 Allopurinol* (Allopurinol*) 100 Mg Tablet, 100 MG PO DAILY for 28 Days, TAB Prov:BRIAN ROBLEDO MD 06/21/18 Ergocalciferol (Vitamin D2) (VITAMIN D2) 50,000 Unit Capsule, 58745 UNIT PO Lacy@09 for 28 Days, CAP Prov:BRIAN ROBLEDO MD 06/21/18 Docusate Sodium (Dok) 100 Mg Capsule, 100 MG PO BID PRN for CONSTIPATION for 7 Days, CAP Prov:BRIAN ROBLEDO MD 06/21/18 Gabapentin* (Gabapentin*) 300 Mg Capsule, 300 MG PO HS for 28 Days, CAP Prov:BRIAN ROBLEDO MD 06/21/18 Hydralazine Hcl* (Hydralazine Hcl*) 25 Mg Tab, 25 MG PO Q8 for 28 Days, TAB Prov:BRIAN ROBLEDO MD 06/21/18 Reported Medications Acetaminophen* (Acetaminophen*) 325 Mg Tablet, 325 MG PO Q4H PRN for PAIN AND OR ELEVATED TEMP, #30 TAB 05/13/18 Trazodone Hcl* (Trazodone Hcl*) 50 Mg Tablet, 50 MG PO QHS, #30 TAB 05/13/18 Loperamide Hcl* (Loperamide Hcl*) 2 Mg Cap, 2 MG PO DAILY, CAP 05/13/18 Bumetanide* (Bumetanide*) 1 Mg Tablet, 1 MG PO BID, TAB 05/13/18 Diphenhydramine Hcl* (Diphenhydramine Hcl*) 25 Mg Capsule, 25 MG PO QHS PRN for ITCHING, CAP 05/13/18 Current Medications Acetaminophen (Tylenol Tab) 325 mg Q4H PRN PO MILD PAIN(1-3)OR ELEVATED TEMP Last administered on 10/18/18at 09:27; Admin Dose 325 MG; Start 07/20/18 at 23:00 Allopurinol (Zyloprim) 100 mg DAILY PO Last administered on 11/02/18 08:41; Admin Dose 100 MG; Start 07/21/18 at 09:00 IV Flush (NS 3 ml) 3 ml PER PROTOCOL IV ; Start 07/20/18 at 23:00 Acetaminophen (Tylenol Supp) 650 mg Q6H PRN WI PAIN LEVEL 1-3 OR FEVER; Start 07/20/18 at 23:00 Bisacodyl (Dulcolax) 5 mg DAILY PRN PO CONSTIPATION Last administered on 10/20/18 09:42; Admin Dose 5 MG; Start 07/20/18 at 23:00 Insulin Aspart (Novolog Insulin Pen) NOVOLOG *MILD* ALGORITHM WITH MEALS BEDTIME SC Last administered on 11/02/18 21:43; Admin Dose 1 UNIT; Start 07/21/18 at 07:50 Ergocalciferol (Drisdol) 50,000 unit Lacy@0900 PO Last administered on 10/30/18 11:45; Admin Dose 50,000 UNIT; Start 07/24/18 at 09:00 Miscellaneous Information 1 ea NOTE XX ; Start 07/20/18 at 23:00 Dextrose (D50w Syringe) 25 ml Q15M PRN IV DECREASED GLUCOSE; Start 07/20/18 at 23:00 Dextrose (D50w Syringe) 50 ml Q15M PRN IV DECREASED GLUCOSE; Start 07/20/18 at 23:00 Melatonin (Melatonin) 3 mg HS PRN PO INSOMNIA Last administered on 10/26/18 23:04; Admin Dose 3 MG; Start 07/20/18 at 23:00 Loratadine (Claritin) 10 mg DAILY PRN PO ALLERGIC REACTION Last administered on 08/07/18at 12:48; Admin Dose 10 MG; Start 08/07/18 at 12:30 Hydralazine HCl (Apresoline) 10 mg Q6H PRN PO ELEVATED BLOOD PRESSURE Last administered on 10/30/18 02:18; Admin Dose 10 MG; Start 08/08/18 at 04:30 Hydralazine HCl (Apresoline) 25 mg TID PO Last administered on 11/02/18 21:40; Admin Dose 25 MG; Start 08/08/18 at 13:00 Eye Lubricant (Artificial Tears Oph) 2 drop QID BOTH EYES Last administered on 11/02/18 21:40; Admin Dose 2 DROP; Start 08/09/18 at 11:00 Calcium Carbonate (Tums) 500 mg PRN PRN PO HEARTBURN Last administered on 10/05/18 12:34; Admin Dose 500 MG; Start 08/09/18 at 14:30 Ondansetron HCl (Zofran Tab) 4 mg Q6H PRN PO NAUSEA AND/OR VOMITING Last administered on 09/10/18at 07:58; Admin Dose 4 MG; Start 09/03/18 at 16:00 Al Hydrox/Mg Hydrox/Simethicone (Mag-Al Plus) 30 ml Q4H PRN PO GASTROINTESTINAL UPSET; Start 09/10/18 at 18:00 Ondansetron HCl (Zofran Inj) 4 mg Q6H PRN IV NAUSEA AND/OR VOMITING Last administered on 10/15/18at 06:15; Admin Dose 4 MG; Start 09/26/18 at 07:30 Pantoprazole (Protonix Tab) 40 mg BID@06,18 PO Last administered on 11/02/18 17:53; Admin Dose 40 MG; Start 10/06/18 at 18:00 Phenyleph/Shark Oil/Min Oil/Petrol (Formulation R Oint) 1 applic PRN PRN WI HEMORROID PAIN/ITCHING Last administered on 10/16/18 08:32; Admin Dose 1 APPLIC; Start 10/08/18 at 02:28 Lactulose (Enulose) 20 gm Q6H PRN PO constipation; Start 10/08/18 at 12:00 Docusate Sodium (Colace) 200 mg HS PO Last administered on 10/29/18at 21:55; Admin Dose 200 MG; Start 10/08/18 at 21:00 Tramadol HCl (Ultram) 100 mg Q6H PRN PO PAIN LEVEL 6-10 Last administered on 11/03/18 01:42; Admin Dose 100 MG; Start 10/09/18 at 18:30 Albumin Human 250 ml @ 250 mls/hr WITH DIALYSIS PRN IV SBP<90; Start 10/11/18 at 12:30 Sodium Chloride (NS) -To prime the dialy... DIRECTED FOR HD PRN IV SBP<90; Start 10/11/18 at 12:30 Lubiprostone (Amitiza) 24 mcg BID PO Last administered on 11/02/18 21:40; Admin Dose 24 MCG; Start 10/12/18 at 10:30 Heparin Sodium (Porcine) (Heparin (1000 Units/ml)) 4,700 unit AFTER DIALYSIS CATHETER Last administered on 10/12/18 23:36; Admin Dose 4,700 UNIT; Start 10/12/18 at 22:30 Heparin Sodium (Porcine) (Heparin (5000 Units/1ml)) 5,000 unit BID SC Last administered on 10/31/18 21:41; Admin Dose 5,000 UNIT; Start 10/15/18 at 13:30 Loperamide HCl (Imodium Cap) 2 mg QID PRN PO DIARRHEA Last administered on 10/30/18at 15:45; Admin Dose 2 MG; Start 10/23/18 at 18:30 Cephalexin (Keflex) 500 mg Q12 PO Last administered on 11/02/18 21:41; Admin Dose 500 MG; Start 10/29/18 at 12:30 Neomycin/ Polymyxin/ Dexamethasone (Maxitrol Oph Susp) 1 drop QID RIGHT EYE Last administered on 11/02/18 21:41; Admin Dose 1 DROP; Start 10/30/18 at 17:00 Gabapentin (Neurontin) 100 mg BID PO Last administered on 11/02/18 21:41; Admin Dose 100 MG; Start 10/31/18 at 09:00 Furosemide (Lasix) 40 mg DAILY PO Last administered on 11/02/18at 17:53; Admin Dose 40 MG; Start 11/02/18 at 17:47 Meds reviewed: Yes Allergies Coded Allergies: polystyrene sulfonate (Verified Allergy, Intermediate, hives, 07/20/18) codeine (Verified Allergy, Unknown, 07/20/18) Uncoded Allergies: SEAFOOD (Allergy, Unknown, 05/13/18) Allergies Reviewed: Yes Labs/Studies Labs Reviewed: Reviewed by anesthesiologist Result Diagram: 10/31/18 1211 11/02/18 1506 Laboratory Tests 11/02/18 15:06 test: N/A Studies: ECG Pre-procedure Exam Last vitals Vital Signs Date Temp Pulse Resp B/P (MAP) Pulse Ox O2 O2 Flow FiO2 Time Delivery Rate 11/03/18 97.7 74 20 125/51 94 Room Air 02:50 (75) Airway: Adequate mouth opening Mallampati: Mallampati III Teeth: Normal Lung: Normal Heart: Normal Anticipated Difficutly with IV: Anticipate Difficult IV Access ASA Physical Status ASA physical status: 3 Emergency: None Planned Anesthetic General/MAC: ETT, MAC Neuraxial: Other Nerve block: Other Planned Pain Management Parenteral pain med, Local by surgeon Pre-operative Attestations Prior to commencing anesthesia and surgery, the patient was re-evaluated, there was verification of: *The patient's identity *The results of appropriate recent lab work and preoperative vital signs *The above evaluation not changing prior to induction *Anesthetic plan, risk benefits, alternative and complications discussed with patient/family; questions answered; patient/family understands, accepts and wishes to proceed. BRODIE BENITEZ MD Nov 03, 2018 06:41
[2018-11-03] MEDS: INSULIN ASPART [NOVOLOG] 3 ML PEN SC SCH ×3 (07:50→17:52)
[2018-11-03] MEDS: ARTIFICIAL TEARS 15 ML OPH BOTH EYES SCH ×4 (09:00→21:00)
[2018-11-03] MEDS: BALSAM PERU/CASTOR OIL 60 GM TUBE TOP SCH ×2 (09:00→21:00)
[2018-11-03] MEDS ORDERED: LIDOCAINE 1% (MPF) 30 ML INJ ONE (09:04)
[2018-11-03] MEDS ORDERED: HEPARIN 1000 UNITS/ML 10 ML INJ ONE (09:05)
[2018-11-03] MEDS ORDERED: LIDOCAINE 1% (MPF) 30 ML INJ INJ ONE (09:12)
[2018-11-03] MEDS ORDERED: HEPARIN 1000 UNITS/ML 10 ML INJ INJ ONE (09:17)
--- NOTE | 2018-11-03 10:02 | PAC ---
Date/Time of Note Date/Time of Note DATE: 11/03/18 TIME: 10:01 Post-Anesthesia Notes Post-Anesthesia Note Last documented vital signs Vital Signs Date Temp Pulse Resp B/P (MAP) Pulse Ox O2 O2 Flow FiO2 Time Delivery Rate 11/03/18 97.7 74 20 125/51 94 Room Air 02:50 (75) Activity: WNL Respiratory function: WNL Cardiovascular function: WNL Mental status: Baseline Pain reasonably controlled: Yes Hydration appropriate: Yes Nausea/Vomiting absent: No BRODIE BENITEZ MD Nov 03, 2018 10:02
[2018-11-03] MEDS: HEPARIN 5,000 UNIT/1 ML VIAL SC SCH ×2 (10:05→23:57)
[2018-11-03] MEDS: LUBIPROSTONE 24 MCG CAP PO SCH ×2 (12:00→21:00)
[2018-11-03] MEDS: CEPHALEXIN 500 MG CAP PO SCH ×2 (12:01→20:47)
[2018-11-03] MEDS: FUROSEMIDE 40 MG TAB PO SCH (12:02)
[2018-11-03] MEDS: NEOMYC/POLYMYX/DEXAMETH OPH 5 ML RIGHT EYE SCH ×4 (12:02→21:00)
[2018-11-03] MEDS: ALLOPURINOL 100 MG TAB PO SCH (12:02)
[2018-11-03] MEDS: GABAPENTIN 100 MG CAP PO SCH ×2 (12:02→20:48)
[2018-11-03] MEDS ORDERED: morphine 4 MG/ML VIAL IV SCH (12:50)
[2018-11-03] MEDS: ONDANSETRON 4 MG INJ IV PRN ×2 (13:02→21:02)
[2018-11-03] MEDS ORDERED: HYDROmorphONE 0.5 MG/0.5 ML SYG IV STA (14:21)
--- NOTE | 2018-11-03 15:57 | PN ---
Date/Time of Note Date/Time of Note DATE: 11/03/18 TIME: 15:54 Assessment/Plan VTE Prophylaxis Risk score (from Nsg)>0 risk: 3 SCD applied (from Nsg): Yes Pharmacological prophylaxis: heparin Lines/Catheters IV Catheter Type (from Nrsg): Peripheral IV Urinary Cath still in place: No Assessment/Plan Hospital Course 58 y/o with 1. . ckd iii-iv now with the complications of hyperkalemia, patient has been refusing Kayexalate Veltaastrida has also been refusing dialysis, patient was expla ined the risks and consequences and patient completely understands the risks and consequences, now agreed, on and off Hd once a week 2. c diff hx 3. Chronic kidney disease, 4. Morbid obesity. 5. Diabetes. 6. Hypertension, 7. Gout.hx 8. Neuropathy. 9. History of congestive heart failure. 10 weakness 11 deconditioning 13 Left shoulde pain, TTP ? Frozen shoulder , shoulder impingement 14 s/p Fall ? AMS confusion likley due to UTI 15 uti klebsiella and enterococcus 16 diarrhea 15 vomtiing/? contipation> refuse labs again 16 Dizziness> chronic ? Postural 17 UTI 18 rectal pain with fissure 19 malfunctioning permacath s/p new permacath on 11/03/18 Plan - s/p permacath today - HD today -CW with the Keflex -cw With Lasix -c w ultram for pain -She is not cooperative in getting 24-hour urine studies for determining the creatinine clearance arrange for SNIF with HD placement,pt already discharged, Spoke to , still no placement Result Diagram: 10/31/18 1211 11/03/18 0655 Results 24hrs Laboratory Tests Test 11/02/18 17:42 11/02/18 21:33 11/03/18 01:45 11/03/18 06:55 Bedside Glucose 212 186 140 Sodium Level 143 Potassium Level 4.9 Chloride Level 111 H Carbon Dioxide Level 21 Anion Gap 11 Blood Urea Nitrogen 71 H Creatinine 3.71 H Est Glomerular 12 L Filtrat Rate mL/min Glucose Level 169 Calcium Level 9.1 Test 11/03/18 13:01 Bedside Glucose 199 Subjective 24 Hr Interval Summary Free Text/Dictation s/p permacath today Hd done Exam/Review of Systems Exam Vitals Vital Signs Date Temp Pulse Resp B/P (MAP) Pulse Ox O2 O2 Flow FiO2 Time Delivery Rate 11/03/18 97.7 90 19 142/88 94 14:23 (106) 11/03/18 Room Air 14:17 11/03/18 3.0 10:58 Intake and Output 11/02/18 11/02/18 11/03/18 1515:00 23:00 07:00 OutputOutput Total 1 ml BalanceBalance -1 ml Exam right chest Perm cath, obese Cardiovascular: regular rate and rhythm Gastrointestinal: soft Tender to touch on everywhere on exam Results Results 24hrs Laboratory Tests Test 11/02/18 17:42 11/02/18 21:33 11/03/18 01:45 11/03/18 06:55 Bedside Glucose 212 186 140 Sodium Level 143 Potassium Level 4.9 Chloride Level 111 H Carbon Dioxide Level 21 Anion Gap 11 Blood Urea Nitrogen 71 H Creatinine 3.71 H Est Glomerular 12 L Filtrat Rate mL/min Glucose Level 169 Calcium Level 9.1 Test 11/03/18 13:01 Bedside Glucose 199 Medications Medication Current Medications Acetaminophen (Tylenol Tab) 325 mg Q4H PRN PO MILD PAIN(1-3)OR ELEVATED TEMP Last administered on 10/18/18 09:27; Admin Dose 325 MG; Start 07/20/18 at 23:00 Allopurinol (Zyloprim) 100 mg DAILY PO Last administered on 11/03/18 12:02; Admin Dose 100 MG; Start 07/21/18 at 09:00 IV Flush (NS 3 ml) 3 ml PER PROTOCOL IV ; Start 07/20/18 at 23:00 Acetaminophen (Tylenol Supp) 650 mg Q6H PRN OR PAIN LEVEL 1-3 OR FEVER; Start 07/20/18 at 23:00 Bisacodyl (Dulcolax) 5 mg DAILY PRN PO CONSTIPATION Last administered on 10/20/18 09:42; Admin Dose 5 MG; Start 07/20/18 at 23:00 Insulin Aspart (Novolog Insulin Pen) NOVOLOG *MILD* ALGORITHM WITH MEALS BEDTIME SC Last administered on 11/03/18 13:13; Admin Dose 2 UNIT; Start 07/21/18 at 07:50 Ergocalciferol (Drisdol) 50,000 unit Lacy@0900 PO Last administered on 10/30/18 11:45; Admin Dose 50,000 UNIT; Start 07/24/18 at 09:00 Miscellaneous Information 1 ea NOTE XX ; Start 07/20/18 at 23:00 Dextrose (D50w Syringe) 25 ml Q15M PRN IV DECREASED GLUCOSE; Start 07/20/18 at 23:00 Dextrose (D50w Syringe) 50 ml Q15M PRN IV DECREASED GLUCOSE; Start 07/20/18 at 23:00 Melatonin (Melatonin) 3 mg HS PRN PO INSOMNIA Last administered on 10/26/18 23:04; Admin Dose 3 MG; Start 07/20/18 at 23:00 Loratadine (Claritin) 10 mg DAILY PRN PO ALLERGIC REACTION Last administered on 08/07/18 12:48; Admin Dose 10 MG; Start 08/07/18 at 12:30 Hydralazine HCl (Apresoline) 10 mg Q6H PRN PO ELEVATED BLOOD PRESSURE Last administered on 10/30/18 02:18; Admin Dose 10 MG; Start 08/08/18 at 04:30 Hydralazine HCl (Apresoline) 25 mg TID PO Last administered on 11/03/18 12:01; Admin Dose 25 MG; Start 08/08/18 at 13:00 Eye Lubricant (Artificial Tears Oph) 2 drop QID BOTH EYES Last administered on 11/02/18 21:40; Admin Dose 2 DROP; Start 08/09/18 at 11:00 Calcium Carbonate (Tums) 500 mg PRN PRN PO HEARTBURN Last administered on 10/05/18 12:34; Admin Dose 500 MG; Start 08/09/18 at 14:30 Ondansetron HCl (Zofran Tab) 4 mg Q6H PRN PO NAUSEA AND/OR VOMITING Last administered on 09/10/18at 07:58; Admin Dose 4 MG; Start 09/03/18 at 16:00 Al Hydrox/Mg Hydrox/Simethicone (Mag-Al Plus) 30 ml Q4H PRN PO GASTROINTESTINAL UPSET; Start 09/10/18 at 18:00 Ondansetron HCl (Zofran Inj) 4 mg Q6H PRN IV NAUSEA AND/OR VOMITING Last administered on 11/03/18 13:02; Admin Dose 4 MG; Start 09/26/18 at 07:30 Pantoprazole (Protonix Tab) 40 mg BID@06,18 PO Last administered on 11/02/18 17:53; Admin Dose 40 MG; Start 10/06/18 at 18:00 Phenyleph/Shark Oil/Min Oil/Petrol (Formulation R Oint) 1 applic PRN PRN OR HEMORROID PAIN/ITCHING Last administered on 10/16/18 08:32; Admin Dose 1 APPLIC; Start 10/08/18 at 02:28 Lactulose (Enulose) 20 gm Q6H PRN PO constipation; Start 10/08/18 at 12:00 Docusate Sodium (Colace) 200 mg HS PO Last administered on 10/29/18 21:55; Admin Dose 200 MG; Start 10/08/18 at 21:00 Tramadol HCl (Ultram) 100 mg Q6H PRN PO PAIN LEVEL 6-10 Last administered on 11/03/18 11:51; Admin Dose 100 MG; Start 10/09/18 at 18:30 Albumin Human 250 ml @ 250 mls/hr WITH DIALYSIS PRN IV SBP<90; Start 10/11/18 at 12:30 Sodium Chloride (NS) -To prime the dialy... DIRECTED FOR HD PRN IV SBP<90; Start 10/11/18 at 12:30 Lubiprostone (Amitiza) 24 mcg BID PO Last administered on 11/03/18 12:00; Admin Dose 24 MCG; Start 10/12/18 at 10:30 Heparin Sodium (Porcine) (Heparin (1000 Units/ml)) 4,700 unit AFTER DIALYSIS CATHETER Last administered on 10/12/18 23:36; Admin Dose 4,700 UNIT; Start 10/12/18 at 22:30 Heparin Sodium (Porcine) (Heparin (5000 Units/1ml)) 5,000 unit BID SC Last administered on 10/31/18 21:41; Admin Dose 5,000 UNIT; Start 10/15/18 at 13:30 Loperamide HCl (Imodium Cap) 2 mg QID PRN PO DIARRHEA Last administered on 10/30/18 15:45; Admin Dose 2 MG; Start 10/23/18 at 18:30 Cephalexin (Keflex) 500 mg Q12 PO Last administered on 11/03/18 12:01; Admin Dose 500 MG; Start 10/29/18 at 12:30 Neomycin/ Polymyxin/ Dexamethasone (Maxitrol Oph Susp) 1 drop QID RIGHT EYE Last administered on 11/03/18at 12:02; Admin Dose 1 DROP; Start 10/30/18 at 17:00 Gabapentin (Neurontin) 100 mg BID PO Last administered on 11/03/18at 12:02; Admin Dose 100 MG; Start 10/31/18 at 09:00 Furosemide (Lasix) 40 mg DAILY PO Last administered on 11/03/18at 12:02; Admin Dose 40 MG; Start 11/02/18 at 17:47 Influenza Virus Vaccine Quadrival (Fluzone) 0.5 ml ONCE ONCE IM* ; Start 11/04/18 at 11:00; Stop 11/04/18 at 11:01 KOFI SWANN MD Nov 03, 2018 15:57
[2018-11-03] MEDS ORDERED: INSULIN ASPART [NOVOLOG] 3 ML PEN SC ONE ×2 (19:00→23:58)
[2018-11-03] MEDS: DOCUSATE SODIUM 100 MG CAP PO SCH (20:48)
[2018-11-04] MEDS ORDERED: KETOROLAC 15 MG INJ IV ONE (01:30)
[2018-11-04] MEDS: PANTOPRAZOLE (EC) 40 MG TAB PO SCH ×2 (05:24→18:02)
[2018-11-04] MEDS: traMADol 50 MG TAB PO PRN ×3 (05:28→18:32)
[2018-11-04 08:38] VITALS: BP 221/95; PULSE 82; RESP 18
[2018-11-04] MEDS: CEPHALEXIN 500 MG CAP PO SCH ×2 (08:49→21:07)
[2018-11-04] MEDS: LUBIPROSTONE 24 MCG CAP PO SCH ×2 (08:49→21:07)
[2018-11-04] MEDS: INSULIN ASPART [NOVOLOG] 3 ML PEN SC SCH ×4 (08:50→20:56)
[2018-11-04] MEDS: GABAPENTIN 100 MG CAP PO SCH ×2 (08:50→21:08)
[2018-11-04] MEDS: HEPARIN 5,000 UNIT/1 ML VIAL SC SCH ×2 (08:51→20:57)
[2018-11-04] MEDS: ALLOPURINOL 100 MG TAB PO SCH (08:52)
[2018-11-04] MEDS: FUROSEMIDE 40 MG TAB PO SCH (08:52)
[2018-11-04] MEDS: NEOMYC/POLYMYX/DEXAMETH OPH 5 ML RIGHT EYE SCH ×4 (08:53→21:07)
[2018-11-04] MEDS: ARTIFICIAL TEARS 15 ML OPH BOTH EYES SCH ×4 (08:53→21:08)
[2018-11-04] MEDS: BALSAM PERU/CASTOR OIL 60 GM TUBE TOP SCH ×2 (08:54→21:09)
[2018-11-04 10:22] VITALS: BP 174/77; PULSE 81; RESP 18
[2018-11-04 14:00] VITALS: BP 133/76; PULSE 88; RESP 18
--- NOTE | 2018-11-04 15:01 | PN ---
Date/Time of Note Date/Time of Note DATE: 11/04/18 TIME: 14:26 Assessment/Plan VTE Prophylaxis Risk score (from Ns)>0 risk: 6 SCD applied (from Ns): No SCD contraindicated: other Pharmacological prophylaxis: heparin Lines/Catheters IV Catheter Type (from Nrs): [place] Urinary Cath still in place: No Assessment/Plan Hospital Course 1. ckd, hyperkalemia, resolved . Right chest permcath working 2. c diff hx 3. Opiates dependency 4. Morbid obesity. 5. Diabetes. 6. Hypertension, 7. Gout, hx 8. Neuropathy. 9. History of congestive heart failure. 10. weakness 11. deconditioning 12. Non compliance, pt refused [place], HD 13. Left shoulder chronic pain. X -ray was reviewed from the last visit, it is arthrosis left acromioclavicular joint 14. constipation 15. UTI Assessment/Plan - s/p permacath - HD tomorrow -cw With Lasix -c w ultram for pain -She is not cooperative in getting 24-hour urine studies for determining the creatinine clearance -arrange for SNF with HD placement, pt already discharged, Spoke to , still no placement Result Diagram: 10/31/18 1211 11/03/18 0655 Results 24hrs Laboratory Tests Test 11/03/18 17:48 11/03/18 23:19 11/04/18 05:18 11/04/18 08:44 Bedside Glucose 399 H 404 *H 232 H 221 H Test 11/04/18 12:46 Bedside Glucose 194 Subjective 24 Hr Interval Summary Respiratory: no complaints, pain (chest), cough, pleuritic pain, shortness of breath, sputum, wheezing, other Gastrointestinal: no complaints Genitourinary: no complaints Musculoskeletal: bone/joint pain Exam/Review of Systems Exam Vitals Vital Signs Date Temp Pulse Resp B/P (MAP) Pulse Ox O2 O2 Flow FiO2 Time Delivery Rate 11/04/18 81 18 174/77 95 Room Air 10:22 (109) 11/04/18 98.3 08:38 11/03/18 3.0 10:58 Intake and Output 11/03/18 11/03/18 11/04/18 1515:00 23:00 07:00 IntakeIntake Total 450 ml 200 ml OutputOutput Total 410 ml BalanceBalance 40 ml 200 ml Exam right chest Permcath Constitutional: alert, oriented Respiratory: clear to auscultation Cardiovascular: regular rate and rhythm Gastrointestinal: soft Results Results 24hrs Laboratory Tests Test 11/03/18 17:48 11/03/18 23:19 11/04/18 05:18 11/04/18 08:44 Bedside Glucose 399 H 404 *H 232 H 221 H Test 11/04/18 12:46 Bedside Glucose 194 Medications Medication Current Medications Acetaminophen (Tylenol Tab) 325 mg Q4H PRN PO MILD PAIN(1-3)OR ELEVATED TEMP Last administered on 10/18/18 09:27; Admin Dose 325 MG; Start 07/20/18 at 23:00 Allopurinol (Zyloprim) 100 mg DAILY PO Last administered on 11/04/18 08:52; Admin Dose 100 MG; Start 07/21/18 at 09:00 IV Flush (NS 3 ml) 3 ml PER PROTOCOL IV ; Start 07/20/18 at 23:00 Acetaminophen (Tylenol Supp) 650 mg Q6H PRN [place] PAIN LEVEL 1-3 OR FEVER; Start 07/20/18 at 23:00 Bisacodyl (Dulcolax) 5 mg DAILY PRN PO CONSTIPATION Last administered on 10/20/18 09:42; Admin Dose 5 MG; Start 07/20/18 at 23:00 Ergocalciferol (Drisdol) 50,000 unit Lacy@0900 PO Last administered on 10/30/18 11:45; Admin Dose 50,000 UNIT; Start 07/24/18 at 09:00 Miscellaneous Information 1 ea NOTE XX ; Start 07/20/18 at 23:00 Dextrose (D50w Syringe) 25 ml Q15M PRN IV DECREASED GLUCOSE; Start 07/20/18 at 23:00 Dextrose (D50w Syringe) 50 ml Q15M PRN IV DECREASED GLUCOSE; Start 07/20/18 at 23:00 Melatonin (Melatonin) 3 mg HS PRN PO INSOMNIA Last administered on 10/26/18 23:04; Admin Dose 3 MG; Start 07/20/18 at 23:00 Loratadine (Claritin) 10 mg DAILY PRN PO ALLERGIC REACTION Last administered on 08/07/18at 12:48; Admin Dose 10 MG; Start 08/07/18 at 12:30 Hydralazine HCl (Apresoline) 10 mg Q6H PRN PO ELEVATED BLOOD PRESSURE Last administered on 11/04/18 11:32; Admin Dose 10 MG; Start 08/08/18 at 04:30 Hydralazine HCl (Apresoline) 25 mg TID PO Last administered on 11/04/18 13:05; Admin Dose 25 MG; Start 08/08/18 at 13:00 Eye Lubricant (Artificial Tears Oph) 2 drop QID BOTH EYES Last administered on 11/02/18 21:40; Admin Dose 2 DROP; Start 08/09/18 at 11:00 Calcium Carbonate (Tums) 500 mg PRN PRN PO HEARTBURN Last administered on 10/05/18 12:34; Admin Dose 500 MG; Start 08/09/18 at 14:30 Ondansetron HCl (Zofran Tab) 4 mg Q6H PRN PO NAUSEA AND/OR VOMITING Last administered on 09/10/18at 07:58; Admin Dose 4 MG; Start 09/03/18 at 16:00 Al Hydrox/Mg Hydrox/Simethicone (Mag-Al Plus) 30 ml Q4H PRN PO GASTROINTESTINAL UPSET; Start 09/10/18 at 18:00 Ondansetron HCl (Zofran Inj) 4 mg Q6H PRN IV NAUSEA AND/OR VOMITING Last administered on 11/03/18 21:02; Admin Dose 4 MG; Start 09/26/18 at 07:30 Pantoprazole (Protonix Tab) 40 mg BID@06,18 PO Last administered on 11/04/18 05:24; Admin Dose 40 MG; Start 10/06/18 at 18:00 Phenyleph/Shark Oil/Min Oil/Petrol (Formulation R Oint) 1 applic PRN PRN [place] HEMORROID PAIN/ITCHING Last administered on 10/16/18 08:32; Admin Dose 1 APPLIC; Start 10/08/18 at 02:28 Lactulose (Enulose) 20 gm Q6H PRN PO constipation; Start 10/08/18 at 12:00 Docusate Sodium (Colace) 200 mg HS PO Last administered on 11/03/18 20:48; Admin Dose 200 MG; Start 10/08/18 at 21:00 Tramadol HCl (Ultram) 100 mg Q6H PRN PO PAIN LEVEL 6-10 Last administered on 11/04/18 11:45; Admin Dose 100 MG; Start 10/09/18 at 18:30 Albumin Human 250 ml @ 250 mls/hr WITH DIALYSIS PRN IV SBP<90; Start 10/11/18 at 12:30 Sodium Chloride (NS) -To prime the dialy... DIRECTED FOR HD PRN IV SBP<90; Start 10/11/18 at 12:30 Lubiprostone (Amitiza) 24 mcg BID PO Last administered on 11/04/18 08:49; Admin Dose 24 MCG; Start 10/12/18 at 10:30 Heparin Sodium (Porcine) (Heparin (1000 Units/ml)) 4,700 unit AFTER DIALYSIS CATHETER Last administered on 10/12/18 23:36; Admin Dose 4,700 UNIT; Start 10/12/18 at 22:30 Heparin Sodium (Porcine) (Heparin (5000 Units/1ml)) 5,000 unit BID SC Last administered on 11/04/18 08:51; Admin Dose 5,000 UNIT; Start 10/15/18 at 13:30 Loperamide HCl (Imodium Cap) 2 mg QID PRN PO DIARRHEA Last administered on 10/30/18 15:45; Admin Dose 2 MG; Start 10/23/18 at 18:30 Cephalexin (Keflex) 500 mg Q12 PO Last administered on 11/04/18 08:49; Admin Dose 500 MG; Start 10/29/18 at 12:30 Neomycin/ Polymyxin/ Dexamethasone (Maxitrol Oph Susp) 1 drop QID RIGHT EYE Last administered on 11/04/18 13:04; Admin Dose 1 DROP; Start 10/30/18 at 17:00 Gabapentin (Neurontin) 100 mg BID PO Last administered on 11/04/18 08:50; Admin Dose 100 MG; Start 10/31/18 at 09:00 Furosemide (Lasix) 40 mg DAILY PO Last administered on 11/04/18 08:52; Admin Dose 40 MG; Start 11/02/18 at 17:47 Insulin Aspart (Novolog Insulin Pen) NOVOLOG *MILD* ALGORITHM WITH MEALS BEDTIME SC Last administered on 11/04/18 13:02; Admin Dose 2 UNIT; Start 11/04/18 at 07:50 Diagnostic Test (Pha) (Accu-Chek) 1 02 XX ; Start 11/05/18 at 02:00 Insulin Glargine (Lantus) 8 units DAILY@2000 SC ; Start 11/04/18 at 20:00 WILLY MEDEIROS Nov 04, 2018 15:01
[2018-11-04 19:55] VITALS: BP 115/85; PULSE 88; RESP 20
[2018-11-04] MEDS: INSULIN GLARGINE [LANTus] (100 UNITS/ML) SYG SC SCH (20:55)
[2018-11-04] MEDS: DOCUSATE SODIUM 100 MG CAP PO SCH (21:07)
[2018-11-05] MEDS: ACCUCHECK AT 2AM (Patients on SS coverage) XX SCH (02:00)
[2018-11-05] MEDS: traMADol 50 MG TAB PO PRN ×3 (02:23→20:41)
[2018-11-05 02:30] VITALS: BP 123/58; PULSE 89; RESP 20
[2018-11-05] MEDS: PANTOPRAZOLE (EC) 40 MG TAB PO SCH ×2 (06:00→18:14)
[2018-11-05 08:30] VITALS: BP 115/54; PULSE 84; RESP 20
[2018-11-05] MEDS: LUBIPROSTONE 24 MCG CAP PO SCH ×2 (08:46→21:00)
[2018-11-05] MEDS: FUROSEMIDE 40 MG TAB PO SCH (08:48)
[2018-11-05] MEDS: BALSAM PERU/CASTOR OIL 60 GM TUBE TOP SCH ×2 (08:49→21:00)
[2018-11-05] MEDS: CEPHALEXIN 500 MG CAP PO SCH ×2 (08:49→20:40)
[2018-11-05] MEDS: NEOMYC/POLYMYX/DEXAMETH OPH 5 ML RIGHT EYE SCH ×4 (08:49→21:54)
[2018-11-05] MEDS: ALLOPURINOL 100 MG TAB PO SCH (08:49)
[2018-11-05] MEDS: GABAPENTIN 100 MG CAP PO SCH ×2 (08:49→21:40)
[2018-11-05] MEDS: ARTIFICIAL TEARS 15 ML OPH BOTH EYES SCH ×4 (08:50→21:51)
[2018-11-05] MEDS: HEPARIN 5,000 UNIT/1 ML VIAL SC SCH ×2 (08:51→20:38)
[2018-11-05] MEDS: INSULIN ASPART [NOVOLOG] 3 ML PEN SC SCH ×4 (08:53→20:37)
--- NOTE | 2018-11-05 13:02 | PSY ---
Date/Time of Note Date/Time of Note DATE: 11/05/18 TIME: 12:37 Psychiatric Subjective Eval Consent Pt consented to telemedicine: No Subjective Evaluation Patient location: inpatient Chief Complaint: sent by dr shell - for lab work ; pt unable to walk History of present illness The patient is a 58-year-old female who is admitted for lower extre mity pain, and whole body pain. On a [id number] evaluation, patient is hyperverbal, very disrespectful to her primary physician, cursing her, she is angry, she accused the nursing staff of not caring, she accused the physician of not knowing what she is doing, she also accused the social workers of being rude. she accused the nursing staff of fumbling with her private area to be specific" sticking her finger in my private area as if I am desperate". Patient was asked to mention the names of the staff, or people who had fumbled with her private area, but she was evasive and refused to mention the names. She continued threatening that she would report the hospital and report the staff because she knows the names of the culprit. Past psychiatric history Denies history of mental illness Hospitalization: other Medical history Problems Medical Problems: (1) Anasarca Status: Acute (2) Hyperkalemia Status: Acute (3) Leg weakness, bilateral Status: Acute (4) Morbidly obese Status: Acute (5) Renal failure Status: Acute Allergies: Coded Allergies: morphine (Verified Allergy, Intermediate, 11/03/18) RASH; SOB polystyrene sulfonate (Verified Allergy, Intermediate, hives, 07/20/18) codeine (Verified Allergy, Unknown, 07/20/18) Uncoded Allergies: SEAFOOD (Allergy, Unknown, 05/13/18) Substance Abuse Substance abuse history: No Prior substance abuse treatmen: No Social History Marital status: other DPA/Conservatorship: No Psychiatric Objective Eval Review of Systems: Review of Systems: Not Applicable Physical Examination: Physical Examination: Not Applicable Mental Status Examination: Appearance: Poor Hygiene Eye Contact: Good Psychomotor Activity: Normal Behavior: Cooperative Speech: Clear AFFECT: Appropriate, Anxious Mood: Angry Thought Content: Normal Orientation: x4 Insight: Intact Judgement: Intact Attention Span: Intact Laboratory Results Laboratory Tests Test 11/03/18 13:01 11/03/18 17:48 11/03/18 23:19 2/1/19 05:18 Bedside Glucose 199 mg/dL 399 mg/dL 404 mg/dL 232 mg/dL Test 11/04/18 08:44 11/04/18 12:46 11/04/18 17:58 11/04/18 20:47 Bedside Glucose 221 mg/dL 194 mg/dL 292 mg/dL 237 mg/dL Test 11/05/18 02:25 Bedside Glucose 262 mg/dL Assessment and Plan Recommendation/Plan Medication Management No medication required Multiple antipsychotics: No Discharge Disposition: Other Legal Status: Voluntary (Does not meets criteria for 5150 hold) ANA MARÍA LAM NP Nov 05, 2018 13:00
--- NOTE | 2018-11-05 13:24 | PN ---
Date/Time of Note Date/Time of Note DATE: 11/05/18 TIME: 13:23 Assessment/Plan VTE Prophylaxis Risk score (from Ns)>0 risk: 7 SCD applied (from Ns): No SCD contraindicated: other Pharmacological prophylaxis: heparin Lines/Catheters IV Catheter Type (from Nrsg): permacath Central line still needed: Yes Urinary Cath still in place: No Assessment/Plan Hospital Course 1. ckd, hyperkalemia, resolved . Right chest permcath working 2. c diff hx 3. Opiates dependency 4. Morbid obesity. 5. Diabetes. 6. Hypertension, 7. Gout, hx 8. Neuropathy. 9. History of congestive heart failure. 10. weakness 11. deconditioning 12. Non compliance, pt refused [place], HD 13. Left shoulder chronic pain. X -ray was reviewed from the last visit, it is arthrosis left acromioclavicular joint 14. constipation 15. UTI Assessment/Plan - s/p permacath -per nirsing pt refused HD -ECG and Trop x3, nitroglycerin as needed - HD today -cw Lasix -c w ultram for pain -She is not cooperative in getting 24-hour urine studies for determining the creatinine clearance -arrange for SNF with HD placement, pt already discharged, still no placement Result Diagram: 11/03/18 0655 Results 24hrs Laboratory Tests Test 11/04/18 17:58 11/04/18 20:47 11/05/18 02:25 11/05/18 13:00 Bedside Glucose 292 H 237 H 262 H 180 Subjective 24 Hr Interval Summary Cardiovascular: chest pain Exam/Review of Systems Exam Vitals Vital Signs Date Temp Pulse Resp B/P (MAP) Pulse Ox O2 O2 Flow FiO2 Time Delivery Rate 11/05/18 97.9 84 20 115/54 97 Room Air 08:30 (74) 11/03/18 3.0 10:58 Intake and Output 11/04/18 11/04/18 11/05/18 1515:00 23:00 07:00 IntakeIntake Total 950 ml BalanceBalance 950 ml Exam right chest Permcath Constitutional: alert, oriented Respiratory: clear to auscultation Cardiovascular: regular rate and rhythm Gastrointestinal: soft, distended Results Results 24hrs Laboratory Tests Test 11/04/18 17:58 11/04/18 20:47 11/05/18 02:25 11/05/18 13:00 Bedside Glucose 292 H 237 H 262 H 180 Medications Medication Current Medications Acetaminophen (Tylenol Tab) 325 mg Q4H PRN PO MILD PAIN(1-3)OR ELEVATED TEMP Last administered on 10/18/18 09:27; Admin Dose 325 MG; Start 07/20/18 at 23 :00 Allopurinol (Zyloprim) 100 mg DAILY PO Last administered on 11/05/18 08:49; Admin Dose 100 MG; Start 07/21/18 at 09:00 IV Flush (NS 3 ml) 3 ml PER PROTOCOL IV ; Start 07/20/18 at 23:00 Acetaminophen (Tylenol Supp) 650 mg Q6H PRN [place] PAIN LEVEL 1-3 OR FEVER; Start 07/20/18 at 23:00 Bisacodyl (Dulcolax) 5 mg DAILY PRN PO CONSTIPATION Last administered on 10/20/18 09:42; Admin Dose 5 MG; Start 07/20/18 at 23:00 Ergocalciferol (Drisdol) 50,000 unit Lacy@0900 PO Last administered on 10/30/18 11:45; Admin Dose 50,000 UNIT; Start 07/24/18 at 09:00 Miscellaneous Information 1 ea NOTE XX ; Start 07/20/18 at 23:00 Dextrose (D50w Syringe) 25 ml Q15M PRN IV DECREASED GLUCOSE; Start 07/20/18 at 23:00 Dextrose (D50w Syringe) 50 ml Q15M PRN IV DECREASED GLUCOSE; Start 07/20/18 at 23:00 Melatonin (Melatonin) 3 mg HS PRN PO INSOMNIA Last administered on 10/26/18 23:04; Admin Dose 3 MG; Start 07/20/18 at 23:00 Loratadine (Claritin) 10 mg DAILY PRN PO ALLERGIC REACTION Last administered on 08/07/18 12:48; Admin Dose 10 MG; Start 08/07/18 at 12:30 Hydralazine HCl (Apresoline) 10 mg Q6H PRN PO ELEVATED BLOOD PRESSURE Last administered on 11/04/18 11:32; Admin Dose 10 MG; Start 08/08/18 at 04:30 Hydralazine HCl (Apresoline) 25 mg TID PO Last administered on 11/05/18 13:02; Admin Dose 25 MG; Start 08/08/18 at 13:00 Eye Lubricant (Artificial Tears Oph) 2 drop QID BOTH EYES Last administered on 11/05/18 08:50; Admin Dose 2 DROP; Start 08/09/18 at 11:00 Calcium Carbonate (Tums) 500 mg PRN PRN PO HEARTBURN Last administered on 10/05/18 12:34; Admin Dose 500 MG; Start 08/09/18 at 14:30 Al Hydrox/Mg Hydrox/Simethicone (Mag-Al Plus) 30 ml Q4H PRN PO GASTROINTESTINAL UPSET; Start 09/10/18 at 18:00 Ondansetron HCl (Zofran Inj) 4 mg Q6H PRN IV NAUSEA AND/OR VOMITING Last adm inistered on 11/03/18 21:02; Admin Dose 4 MG; Start 09/26/18 at 07:30 Pantoprazole (Protonix Tab) 40 mg BID@06,18 PO Last administered on 11/04/18 18:02; Admin Dose 40 MG; Start 10/06/18 at 18:00 Phenyleph/Shark Oil/Min Oil/Petrol (Formulation R Oint) 1 applic PRN PRN [place] HEMORROID PAIN/ITCHING Last administered on 10/16/18 08:32; Admin Dose 1 APPLIC; Start 10/08/18 at 02:28 Lactulose (Enulose) 20 gm Q6H PRN PO constipation; Start 10/08/18 at 12:00 Docusate Sodium (Colace) 200 mg HS PO Last administered on 11/04/18 21:07; Admin Dose 200 MG; Start 10/08/18 at 21:00 Tramadol HCl (Ultram) 100 mg Q6H PRN PO PAIN LEVEL 6-10 Last administered on 11/05/18 10:11; Admin Dose 100 MG; Start 10/09/18 at 18:30 Albumin Human 250 ml @ 250 mls/hr WITH DIALYSIS PRN IV SBP<90; Start 10/11/18 at 12:30 Sodium Chloride (NS) -To prime the dialy... DIRECTED FOR HD PRN IV SBP<90; Start 10/11/18 at 12:30 Lubiprostone (Amitiza) 24 mcg BID PO Last administered on 11/05/18 08:46; Admin Dose 24 MCG; Start 10/12/18 at 10:30 Heparin Sodium (Porcine) (Heparin (1000 Units/ml)) 4,700 unit AFTER DIALYSIS CATHETER Last administered on 10/12/18 23:36; Admin Dose 4,700 UNIT; Start 10/12/18 at 22:30 Heparin Sodium (Porcine) (Heparin (5000 Units/1ml)) 5,000 unit BID SC Last administered on 11/05/18 08:51; Admin Dose 5,000 UNIT; Start 10/15/18 at 13:30 Loperamide HCl (Imodium Cap) 2 mg QID PRN PO DIARRHEA Last administered on 10/30/18 15:45; Admin Dose 2 MG; Start 10/23/18 at 18:30 Cephalexin (Keflex) 500 mg Q12 PO Last administered on 11/05/18 08:49; Admin Dose 500 MG; Start 10/29/18 at 12:30 Neomycin/ Polymyxin/ Dexamethasone (Maxitrol Oph Susp) 1 drop QID RIGHT EYE Last administered on 11/05/18 12:56; Admin Dose 1 DROP; Start 10/30/18 at 17:00 Gabapentin (Neurontin) 100 mg BID PO Last administered on 11/05/18 08:49; Admin Dose 100 MG; Start 10/31/18 at 09:00 Furosemide (Lasix) 40 mg DAILY PO Last administered on 11/05/18 08:48; Admin Dose 40 MG; Start 11/02/18 at 17:47 Insulin Aspart (Novolog Insulin Pen) NOVOLOG *MILD* ALGORITHM WITH MEALS BEDTIME SC Last administered on 11/05/18 13:01; Admin Dose 1 UNIT; Start 11/04/18 at 07:50 Diagnostic Test (Pha) (Accu-Chek) 1 ea 02 XX ; Start 11/05/18 at 02:00 Insulin Glargine (Lantus) 8 units DAILY@2000 SC Last administered on 11/04/18 20:55; Admin Dose 8 UNITS; Start 11/04/18 at 20:00 WILLY MEDEIROS Nov 05, 2018 13:24
[2018-11-05 13:31] VITALS: BP 127/55; PULSE 76; RESP 20
[2018-11-05] MEDS ORDERED: traMADol 50 MG TAB PO ONE (14:00)
[2018-11-05] MEDS ORDERED: NITROGLYCERIN (SL) 0.4 MG TAB SL PRN (14:00)
[2018-11-05 19:50] VITALS: BP 108/58; PULSE 94; RESP 20
[2018-11-05] MEDS: INSULIN GLARGINE [LANTus] (100 UNITS/ML) SYG SC SCH (20:35)
[2018-11-05] MEDS: DOCUSATE SODIUM 100 MG CAP PO SCH (20:40)
[2018-11-06] MEDS: KETOROLAC 15 MG INJ IV PRN ×3 (01:24→20:54)
[2018-11-06] MEDS: ACCUCHECK AT 2AM (Patients on SS coverage) XX SCH (01:48)
[2018-11-06 02:16] VITALS: BP 95/50; PULSE 89; RESP 20
[2018-11-06] MEDS: MELATONIN 3 MG TABLET PO PRN (03:43)
[2018-11-06] MEDS: traMADol 50 MG TAB PO PRN ×3 (03:43→16:42)
[2018-11-06] MEDS: PANTOPRAZOLE (EC) 40 MG TAB PO SCH ×2 (06:08→17:40)
[2018-11-06 07:54] VITALS: BP 115/63; PULSE 85; RESP 20
[2018-11-06] MEDS: INSULIN ASPART [NOVOLOG] 3 ML PEN SC SCH ×4 (08:49→20:27)
[2018-11-06] MEDS: CEPHALEXIN 500 MG CAP PO SCH ×2 (08:51→20:30)
[2018-11-06] MEDS: GABAPENTIN 100 MG CAP PO SCH ×2 (08:51→20:29)
[2018-11-06] MEDS: LUBIPROSTONE 24 MCG CAP PO SCH ×2 (08:51→20:30)
[2018-11-06] MEDS: ALLOPURINOL 100 MG TAB PO SCH (08:51)
[2018-11-06] MEDS: FUROSEMIDE 40 MG TAB PO SCH (08:52)
[2018-11-06] MEDS: ERGOCALCIFEROL 50,000 UNIT CAP PO SCH (09:13)
[2018-11-06] MEDS: NEOMYC/POLYMYX/DEXAMETH OPH 5 ML RIGHT EYE SCH ×4 (09:17→20:31)
[2018-11-06] MEDS: ARTIFICIAL TEARS 15 ML OPH BOTH EYES SCH ×4 (09:17→20:29)
[2018-11-06] MEDS: BISACODYL (EC) 5 MG TAB PO PRN (09:23)
[2018-11-06] MEDS: HEPARIN 5,000 UNIT/1 ML VIAL SC SCH ×2 (09:34→20:28)
[2018-11-06] MEDS: BALSAM PERU/CASTOR OIL 60 GM TUBE TOP SCH ×2 (09:34→20:32)
[2018-11-06 14:37] VITALS: BP 92/53; PULSE 101; RESP 18
--- NOTE | 2018-11-06 14:51 | PN ---
Date/Time of Note Date/Time of Note DATE: 11/06/18 TIME: 14:47 Assessment/Plan VTE Prophylaxis Risk score (from Ns)>0 risk: 9 SCD applied (from Ns): Yes SCD contraindicated: other Pharmacological prophylaxis: other Lines/Catheters IV Catheter Type (from Nrsg): Mid Line Urinary Cath still in place: No Assessment/Plan Hospital Course 1. . ckd on hd non compliance w meds 2. c diff hx 3. Chronic kidney disease, 4. Morbid obesity.W DECONDITIONING 5. Diabetes. 6. Hypertension, 7. Gout.hx 8. Neuropathy. 9. History of congestive heart failure. 10 weakness 11 narcotic seeking behaviour 13 NON COMPLIANCEW TREATMENT AND PT OT PLAN continue hd toradol prn and ultram Result Diagram: 11/05/18 1203 Results 24hrs Laboratory Tests Test 11/05/18 18:01 11/05/18 18:12 11/05/18 20:33 11/06/18 00:30 Bedside Glucose 253 H 273 H Troponin I < 0.012 < 0.012 Test 11/06/18 01:16 11/06/18 08:14 11/06/18 09:06 11/06/18 12:26 Bedside Glucose 178 202 229 H Troponin I < 0.012 Subjective 24 Hr Interval Summary Subjective hx not possible: other (c/o pain on meds,does not ever want any fistula or avg ,midline place after lengthy discussion) Respiratory: no complaints Cardiovascular: no complaints Musculoskeletal: bone/joint pain Exam/Review of Systems Exam Vitals Vital Signs Date Temp Pulse Resp B/P (MAP) Pulse Ox O2 O2 Flow FiO2 Time Delivery Rate 11/06/18 97.9 85 20 115/63 99 Room Air 07:54 (80) 11/03/18 3.0 10:58 Intake and Output 11/05/18 11/05/18 11/06/18 1515:00 23:00 07:00 IntakeIntake Total 840 ml BalanceBalance 840 ml Respiratory: clear to auscultation Cardiovascular: regular rate and rhythm Gastrointestinal: soft Musculoskeletal: range of motion (pain+) Extremities: No edema Results Results 24hrs Laboratory Tests Test 11/05/18 18:01 11/05/18 18:12 11/05/18 20:33 11/06/18 00:30 Bedside Glucose 253 H 273 H Troponin I < 0.012 < 0.012 Test 11/06/18 01:16 11/06/18 08:14 11/06/18 09:06 11/06/18 12:26 Bedside Glucose 178 202 229 H Troponin I < 0.012 Medications Medication Current Medications Acetaminophen (Tylenol Tab) 325 mg Q4H PRN PO MILD PAIN(1-3)OR ELEVATED TEMP Last administered on 10/18/18 09:27; Admin Dose 325 MG; Start 07/20/18 at 23:00 Allopurinol (Zyloprim) 100 mg DAILY PO Last administered on 11/06/18 08:51; Admin Dose 100 MG; Start 07/21/18 at 09:00 IV Flush (NS 3 ml) 3 ml PER PROTOCOL IV ; Start 07/20/18 at 23:00 Acetaminophen (Tylenol Supp) 650 mg Q6H PRN [place] PAIN LEVEL 1-3 OR FEVER; Start 07/20/18 at 23:00 Bisacodyl (Dulcolax) 5 mg DAILY PRN PO CONSTIPATION Last administered on 11/06/18 09:23; Admin Dose 5 MG; Start 07/20/18 at 23:00 Ergocalciferol (Drisdol) 50,000 unit Lacy@0900 PO Last administered on 11/06/18 09:13; Admin Dose 50,000 UNIT; Start 07/24/18 at 09:00 Miscellaneous Information 1 ea NOTE XX ; Start 07/20/18 at 23:00 Dextrose (D50w Syringe) 25 ml Q15M PRN IV DECREASED GLUCOSE; Start 07/20/18 at 23:00 Dextrose (D50w Syringe) 50 ml Q15M PRN IV DECREASED GLUCOSE; Start 07/20/18 at 23:00 Melatonin (Melatonin) 3 mg HS PRN PO INSOMNIA Last administered on 11/06/18 03:43; Admin Dose 3 MG; Start 07/20/18 at 23:00 Loratadine (Claritin) 10 mg DAILY PRN PO ALLERGIC REACTION Last administered on 08/07/18 12:48; Admin Dose 10 MG; Start 08/07/18 at 12:30 Hydralazine HCl (Apresoline) 10 mg Q6H PRN PO ELEVATED BLOOD PRESSURE Last administered on 11/04/18 11:32; Admin Dose 10 MG; Start 08/08/18 at 04:30 Hydralazine HCl (Apresoline) 25 mg TID PO Last administered on 11/06/18 08:52; Admin Dose 25 MG; Start 08/08/18 at 13:00 Eye Lubricant (Artificial Tears Oph) 2 drop QID BOTH EYES Last administered on 11/06/18 09:17; Admin Dose 2 DROP; Start 08/09/18 at 11:00 Calcium Carbonate (Tums) 500 mg PRN PRN PO HEARTBURN Last administered on 10/05/18 12:34; Admin Dose 500 MG; Start 08/09/18 at 14:30 Al Hydrox/Mg Hydrox/Simethicone (Mag-Al Plus) 30 ml Q4H PRN PO GASTROINTESTINAL UPSET; Start 09/10/18 at 18:00 Ondansetron HCl (Zofran Inj) 4 mg Q6H PRN IV NAUSEA AND/OR VOMITING Last administered on 11/03/18 21:02; Admin Dose 4 MG; Start 09/26/18 at 07:30 Pantoprazole (Protonix Tab) 40 mg BID@06,18 PO Last administered on 11/06/18 06 :08; Admin Dose 40 MG; Start 10/06/18 at 18:00 Phenyleph/Shark Oil/Min Oil/Petrol (Formulation R Oint) 1 applic PRN PRN [place] HEMORROID PAIN/ITCHING Last administered on 10/16/18 08:32; Admin Dose 1 PETR LIC; Start 10/08/18 at 02:28 Lactulose (Enulose) 20 gm Q6H PRN PO constipation; Start 10/08/18 at 12:00 Docusate Sodium (Colace) 200 mg HS PO Last administered on 11/05/18 20:40; Admin Dose 200 MG; Start 10/08/18 at 21:00 Tramadol HCl (Ultram) 100 mg Q6H PRN PO PAIN LEVEL 6-10 Last administered on 09:23; Admin Dose 100 MG; Start 10/09/18 at 18:30 Albumin Human 250 ml @ 250 mls/hr WITH DIALYSIS PRN IV SBP<90; Start 10/11/18 at 12:30 Sodium Chloride (NS) -To prime the dialy... DIRECTED FOR HD PRN IV SBP<90; Start 10/11/18 at 12:30 Lubiprostone (Amitiza) 24 mcg BID PO Last administered on 11/06/18 08:51; Admin Dose 24 MCG; Start 10/12/18 at 10:30 Heparin Sodium (Porcine) (Heparin (1000 Units/ml)) 4,700 unit AFTER DIALYSIS CATHETER Last administered on 10/12/18 23:36; Admin Dose 4,700 UNIT; Start 10/12/18 at 22:30 Heparin Sodium (Porcine) (Heparin (5000 Units/1ml)) 5,000 unit BID SC Last administered on 11/06/18 09:34; Admin Dose 5,000 UNIT; Start 10/15/18 at 13:30 Loperamide HCl (Imodium Cap) 2 mg QID PRN PO DIARRHEA Last administered on 10/30/18 15:45; Admin Dose 2 MG; Start 10/23/18 at 18:30 Cephalexin (Keflex) 500 mg Q12 PO Last administered on 11/06/18 08:51; Admin Dose 500 MG; Start 10/29/18 at 12:30 Neomycin/ Polymyxin/ Dexamethasone (Maxitrol Oph Susp) 1 drop QID RIGHT EYE Last administered on 11/06/18 09:17; Admin Dose 1 DROP; Start 10/30/18 at 17:00 Gabapentin (Neurontin) 100 mg BID PO Last administered on 11/06/18 08:51; Admin Dose 100 MG; Start 10/31/18 at 09:00 Furosemide (Lasix) 40 mg DAILY PO Last administered on 11/06/18 08:52; Admin Dose 40 MG; Start 11/02/18 at 17:47 Insulin Aspart (Novolog Insulin Pen) NOVOLOG *MILD* ALGORITHM WITH MEALS BEDTIME SC Last administered on 11/06/18 12:30; Admin Dose 3 UNIT; Start 11/04/18 at 07:50 Diagnostic Test (Pha) (Accu-Chek) 1 ea 02 XX ; Start 11/05/18 at 02:00 Insulin Glargine (Lantus) 8 units DAILY@2000 SC Last administered on 11/05/18 20:35; Admin Dose 8 UNITS; Start 11/04/18 at 20:00 Nitroglycerin (Nitroglycerin (Sl Tab) 0.4 Mg) 1 tab Q5M PRN [place] ANGINA; Start 11/05/18 at 14:00 Phenol (Chloraseptic Throat [place]) 2 spray Q2H PRN [place] SORE THROAT; Start 11/05/18 at 19:00 Ketorolac Tromethamine (Toradol) 15 mg Q6H PRN IV PAIN Last administered on 11/06/18at 12:00; Admin Dose 15 MG; Start 11/05/18 at 21:30; Stop 11/08/18 at 21:29 BRIAN ROBLEDO MD Nov 06, 2018 14:51
[2018-11-06] MEDS: LACTULOSE 30ML CUP PO PRN (16:42)
[2018-11-06 20:03] VITALS: BP 106/56; PULSE 95; RESP 16
[2018-11-06] MEDS: INSULIN GLARGINE [LANTus] (100 UNITS/ML) SYG SC SCH (20:28)
[2018-11-06] MEDS: DOCUSATE SODIUM 100 MG CAP PO SCH (20:29)
[2018-11-07] VITALS (14 sets, daily range): BP systolic 94–151; BP diastolic 44–87; PULSE 64–91; RESP 16–19
[2018-11-07] MEDS: traMADol 50 MG TAB PO PRN ×4 (02:13→21:44)
[2018-11-07] MEDS: KETOROLAC 15 MG INJ IV PRN ×2 (02:32→16:43)
[2018-11-07] MEDS: ACCUCHECK AT 2AM (Patients on SS coverage) XX SCH (02:32)
[2018-11-07] MEDS: PANTOPRAZOLE (EC) 40 MG TAB PO SCH (06:00)
[2018-11-07] MEDS: GABAPENTIN 100 MG CAP PO SCH ×2 (08:50→21:26)
[2018-11-07] MEDS: LUBIPROSTONE 24 MCG CAP PO SCH ×2 (08:51→21:00)
[2018-11-07] MEDS: BALSAM PERU/CASTOR OIL 60 GM TUBE TOP SCH ×2 (08:51→21:17)
[2018-11-07] MEDS: NEOMYC/POLYMYX/DEXAMETH OPH 5 ML RIGHT EYE SCH ×4 (08:51→21:17)
[2018-11-07] MEDS: FUROSEMIDE 40 MG TAB PO SCH (08:53)
[2018-11-07] MEDS: ALLOPURINOL 100 MG TAB PO SCH (08:53)
[2018-11-07] MEDS: CEPHALEXIN 500 MG CAP PO SCH ×2 (08:54→21:26)
[2018-11-07] MEDS: ARTIFICIAL TEARS 15 ML OPH BOTH EYES SCH ×4 (08:54→21:00)
[2018-11-07] MEDS: HEPARIN 5,000 UNIT/1 ML VIAL SC SCH ×2 (08:59→21:23)
[2018-11-07] MEDS: INSULIN ASPART [NOVOLOG] 3 ML PEN SC SCH ×4 (09:00→21:23)
--- NOTE | 2018-11-07 12:25 | PN ---
Date/Time of Note Date/Time of Note DATE: 11/07/18 TIME: 12:25 Assessment/Plan VTE Prophylaxis Risk score (from Nsg)>0 risk: 5 SCD applied (from Nsg): Yes Pharmacological prophylaxis: NA/contraindicated Pharm contraindication: low risk/ambulating Lines/Catheters IV Catheter Type (from Nrsg): Mid Line Urinary Cath still in place: No Assessment/Plan Hospital Course 58 y/o with 1. . ckd iii-iv now with the complications of hyperkalemia, patient has been refusing Kayexalate V[place] has also been refusing dialysis, patient was explained the risks and consequences and patient completely understands the risks and consequences, now agreed, on and off Hd once a week 2. c diff hx 3. Chronic kidney disease, 4. Morbid obesity. 5. Diabetes. 6. Hypertension, 7. Gout.hx 8. Neuropathy. 9. History of congestive heart failure. 10 weakness 11 deconditioning 13 Left shoulde pain, TTP ? Frozen shoulder , shoulder impingement 14 s/p Fall ? AMS confusion likley due to UTI 15 uti klebsiella and enterococcus 16 diarrhea 15 vomtiing/? contipation> refuse labs again 16 Dizziness> chronic ? Postural 17 UTI 18 rectal pain with fissure 19 malfunctioning permacath s/p new permacath on 11/03/18 duplicate Result Diagram: 11/05/18 1203 Results 24hrs Laboratory Tests Test 11/06/18 12:26 11/06/18 17:33 11/06/18 20:18 11/07/18 02:38 Bedside Glucose 229 H 217 188 167 Test 11/07/18 08:22 Bedside Glucose 220 Subjective 24 Hr Interval Summary Free Text/Dictation duplicate Exam/Review of Systems Exam Vitals Vital Signs Date Temp Pulse Resp B/P (MAP) Pulse Ox O2 O2 Flow FiO2 Time Delivery Rate 11/07/18 97.7 91 18 114/52 94 08:00 (72) 11/07/18 Room Air 02:11 11/03/18 3.0 10:58 Intake and Output 11/06/18 11/06/18 11/07/18 1515:00 23:00 07:00 IntakeIntake Total 360 ml 300 ml BalanceBalance 360 ml 300 ml Exam duplictae Results Results 24hrs Laboratory Tests Test 11/06/18 12:26 11/06/18 17:33 11/06/18 20:18 11/07/18 02:38 Bedside Glucose 229 H 217 188 167 Test 11/07/18 08:22 Bedside Glucose 220 Medications Medication Current Medications Acetaminophen (Tylenol Tab) 325 mg Q4H PRN PO MILD PAIN(1-3)OR ELEVATED TEMP Last administered on 10/18/18 09:27; Admin Dose 325 MG; Start 07/20/18 at 23:00 Allopurinol (Zyloprim) 100 mg DAILY PO Last administered on 11/07/18 08:53; Admin Dose 100 MG; Start 07/21/18 at 09:00 IV Flush (NS 3 ml) 3 ml PER PROTOCOL IV ; Start 07/20/18 at 23:00 Acetaminophen (Tylenol Supp) 650 mg Q6H PRN [place] PAIN LEVEL 1-3 OR FEVER; Start 07/20/18 at 23:00 Bisacodyl (Dulcolax) 5 mg DAILY PRN PO CONSTIPATION Last administered on 11/06/18 09:23; Admin Dose 5 MG; Start 07/20/18 at 23:00 Ergocalciferol (Drisdol) 50,000 unit Lacy@0900 PO Last administered on 11/06/18 09:13; Admin Dose 50,000 UNIT; Start 07/24/18 at 09:00 Miscellaneous Information 1 ea NOTE XX ; Start 07/20/18 at 23:00 Dextrose (D50w Syringe) 25 ml Q15M PRN IV DECREASED GLUCOSE; Start 07/20/18 at 23:00 Dextrose (D50w Syringe) 50 ml Q15M PRN IV DECREASED GLUCOSE; Start 07/20/18 at 23:00 Melatonin (Melatonin) 3 mg HS PRN PO INSOMNIA Last administered on 11/06/18 03:43; Admin Dose 3 MG; Start 07/20/18 at 23:00 Loratadine (Claritin) 10 mg DAILY PRN PO ALLERGIC REACTION Last administered on 08/07/18 12:48; Admin Dose 10 MG; Start 08/07/18 at 12:30 Hydralazine HCl (Apresoline) 10 mg Q6H PRN PO ELEVATED BLOOD PRESSURE Last administered on 11/04/18 11:32; Admin Dose 10 MG; Start 08/08/18 at 04:30 Hydralazine HCl (Apresoline) 25 mg TID PO Last administered on 11/07/18 08:50; Admin Dose 25 MG; Start 08/08/18 at 13:00 Eye Lubricant (Artificial Tears Oph) 2 drop QID BOTH EYES Last administered on 11/07/18 08:54; Admin Dose 2 DROP; Start 08/09/18 at 11:00 Calcium Carbonate (Tums) 500 mg PRN PRN PO HEARTBURN Last administered on 10/05/18 12:34; Admin Dose 500 MG; Start 08/09/18 at 14:30 Al Hydrox/Mg Hydrox/Simethicone (Mag-Al Plus) 30 ml Q4H PRN PO GASTROINTESTINAL UPSET; Start 09/10/18 at 18:00 Ondansetron HCl (Zofran Inj) 4 mg Q6H PRN IV NAUSEA AND/OR VOMITING Last administered on 11/03/18 21:02; Admin Dose 4 MG; Start 09/26/18 at 07:30 Pantoprazole (Protonix Tab) 40 mg BID@06,18 PO Last administered on 11/06/18 17:40; Admin Dose 40 MG; Start 10/06/18 at 18:00 Phenyleph/Shark Oil/Min Oil/Petrol (Formulation R Oint) 1 applic PRN PRN [place] HEMORROID PAIN/ITCHING Last administered on 10/16/18 08:32; Admin Dose 1 APPLIC; Start 10/08/18 at 02:28 Lactulose (Enulose) 20 gm Q6H PRN PO constipation Last administered on 11/06/18 16:42; Admin Dose 20 GM; Start 10/08/18 at 12:00 Docusate Sodium (Colace) 200 mg HS PO Last administered on 11/06/18 20:29; Admin Dose 200 MG; Start 10/08/18 at 21:00 Tramadol HCl (Ultram) 100 mg Q6H PRN PO PAIN LEVEL 6-10 Last administered on 11/07/18 08:52; Admin Dose 100 MG; Start 10/09/18 at 18:30 Albumin Human 250 ml @ 250 mls/hr WITH DIALYSIS PRN IV SBP<90; Start 10/11/18 at 12:30 Sodium Chloride (NS) -To prime the dialy... DIRECTED FOR HD PRN IV SBP<90; Start 10/11/18 at 12:30 Lubiprostone (Amitiza) 24 mcg BID PO Last administered on 11/06/18 20:30; Admin Dose 24 MCG; Start 10/12/18 at 10:30 Heparin Sodium (Porcine) (Heparin (1000 Units/ml)) 4,700 unit AFTER DIALYSIS CA THETER Last administered on 10/12/18 23:36; Admin Dose 4,700 UNIT; Start 10/12/18 at 22:30 Heparin Sodium (Porcine) (Heparin (5000 Units/1ml)) 5,000 unit BID SC Last administered on 11/07/18 08:59; Admin Dose 5,000 UNIT; Start 10/15/18 at 13:30 Loperamide HCl (Imodium Cap) 2 mg QID PRN PO DIARRHEA Last administered on 10/30/18 15:45; Admin Dose 2 MG; Start 10/23/18 at 18:30 Cephalexin (Keflex) 500 mg Q12 PO Last administered on 11/07/18 08:54; Admin Dose 500 MG; Start 10/29/18 at 12:30 Neomycin/ Polymyxin/ Dexamethasone (Maxitrol Oph Susp) 1 drop QID RIGHT EYE Last administered on 11/07/18 08:51; Admin Dose 1 DROP; Start 10/30/18 at 17:00 Gabapentin (Neurontin) 100 mg BID PO Last administered on 11/07/18 08:50; Admin Dose 100 MG; Start 10/31/18 at 09:00 Furosemide (Lasix) 40 mg DAILY PO Last administered on 11/07/18 08:53; Admin Dose 40 MG; Start 11/02/18 at 17:47 Insulin Aspart (Novolog Insulin Pen) NOVOLOG *MILD* ALGORITHM WITH MEALS BEDTIME SC Last administered on 11/07/18 09:00; Admin Dose 2 UNIT; Start 11/04/18 at 07:50 Diagnostic Test (Pha) (Accu-Chek) 1 ea 02 XX Last administered on 11/07/18 02:32; Admin Dose 1 EA; Start 11/05/18 at 02:00 Insulin Glargine (Lantus) 8 units DAILY@2000 SC Last administered on 11/06/18 20:28; Admin Dose 8 UNITS; Start 11/04/18 at 20:00 Nitroglycerin (Nitroglycerin (Sl Tab) 0.4 Mg) 1 tab Q5M PRN SL ANGINA; Start 11/05/18 at 14:00 Phenol (Chloraseptic Throat [place]) 2 spray Q2H PRN [place] SORE THROAT; Start 11/05/18 at 19:00 Ketorolac Tromethamine (Toradol) 15 mg Q6H PRN IV PAIN Last administered on 11/07/18at 02:32; Admin Dose 15 MG; Start 11/05/18 at 21:30; Stop 11/08/18 at 21:29 Miscellaneous Information (* Miscellaneous Pharmacy Order) PLEASE RENEW MEDS DUE 2... Q8H XX ; Start 11/07/18 at 12:30 KOFI SWANN MD Nov 07, 2018 12:25
--- NOTE | 2018-11-07 13:01 | PN ---
Date/Time of Note Date/Time of Note DATE: 11/07/18 TIME: 13:01 Assessment/Plan VTE Prophylaxis Risk score (from Nsg)>0 risk: 5 SCD applied (from Ns): Yes SCD contraindicated: low risk/ambulating Pharmacological prophylaxis: NA/contraindicated, heparin Pharm contraindication: low risk/ambulating Lines/Catheters IV Catheter Type (from Nrsg): Mid Line Urinary Cath still in place: No Assessment/Plan Hospital Course 58 y/o with 1. . ckd iii-iv now with the complications of hyperkalemia, patient has been refusing Kayexalate [place] has also been refusing dialysis, patient was explained the risks and consequences and patient completely understands the risks and consequences, now agreed, on and off Hd once a week s/p new permacath placement due to malfunctioning permacath 2. c diff hx 3. Chronic kidney disease, 4. Morbid obesity. 5. Diabetes. 6. Hypertension, 7. Gout.hx 8. Neuropathy. 9. History of congestive heart failure. 10 weakness 11 deconditioning 13 Left shoulde pain, TTP ? Frozen shoulder , shoulder impingement 14 s/p Fall ? AMS confusion likley due to UTI 15 uti klebsiella and enterococcus 16 diarrhea 15 vomtiing/? contipation> refuse labs again 16 Dizziness> chronic ? Postural 17 UTI 18 rectal pain with fissure 19 malfunctioning permacath s/p new permacath on 11/03/18 Plan - HD today - Pt said does not want any av fistulas/graft in future, demanding narcoti cs,explained to her her limiting ability to function on narcotics as she gets extremely lethargic and sleepy on narcotics and would limit her ability to participate in therapy as pt says that she is only here for PT and minuet" she is able to go from bed to commode 3 times she will be out of here" -cw With Lasix -c w ultram for pain and toradol for pain with midline - cw keflex last dose tmw - cw gabapentin renally dosed -She is not cooperative in getting 24-hour urine studies for determining the creatinine clearance arrange for SNIF with HD placement,pt already discharged, Spoke to CM , still no placement Result Diagram: 11/05/18 1203 Results 24hrs Laboratory Tests Test 11/06/18 17:33 11/06/18 20:18 2/4/19 02:38 11/07/18 08:22 Bedside Glucose 217 188 167 220 Subjective 24 Hr Interval Summary Free Text/Dictation HD in progress Pt complaining about not getting narcotics,e xplained to her that narcotics limiting the ability for her to PT as she gets lethargic and dizzy on narcotics Exam/Review of Systems Exam Vitals Vital Signs Date Temp Pulse Resp B/P (MAP) Pulse Ox O2 O2 Flow FiO2 Time Delivery Rate 11/07/18 97.7 91 18 114/52 94 08:00 (72) 11/07/18 Room Air 02:11 11/03/18 3.0 10:58 Intake and Output 11/06/18 11/06/18 11/07/18 1515:00 23:00 07:00 IntakeIntake Total 360 ml 300 ml BalanceBalance 360 ml 300 ml Exam Morbidle obese respiratory: clear to auscultation Cardiovascular: regular rate and rhythm Gastrointestinal: soft Musculoskeletal: range of motion (pain+) Extremities: No edema tender to touch everywhere fibromyalgia? rt permcath Results Results 24hrs Laboratory Tests Test 11/06/18 17:33 11/06/18 20:18 11/07/18 02:38 11/07/18 08:22 Bedside Glucose 217 188 167 220 Medications Medication Current Medications Acetaminophen (Tylenol Tab) 325 mg Q4H PRN PO MILD PAIN(1-3)OR ELEVATED TEMP Last administered on 10/18/18at 09:27; Admin Dose 325 MG; Start 07/20/18 at 23:00 Allopurinol (Zyloprim) 100 mg DAILY PO Last administered on 11/07/18at 08:53; Admin Dose 100 MG; Start 07/21/18 at 09:00 IV Flush (NS 3 ml) 3 ml PER PROTOCOL IV ; Start 07/20/18 at 23:00 Acetaminophen (Tylenol Supp) 650 mg Q6H PRN [place] PAIN LEVEL 1-3 OR FEVER; Start 07/20/18 at 23:00 Bisacodyl (Dulcolax) 5 mg DAILY PRN PO CONSTIPATION Last administered on 11/06/18 09:23; Admin Dose 5 MG; Start 07/20/18 at 23:00 Ergocalciferol (Drisdol) 50,000 unit Lacy@0900 PO Last administered on 11/06/18 09:13; Admin Dose 50,000 UNIT; Start 07/24/18 at 09:00 Miscellaneous Information 1 ea NOTE XX ; Start 07/20/18 at 23:00 Dextrose (D50w Syringe) 25 ml Q15M PRN IV DECREASED GLUCOSE; Start 07/20/18 at 23:00 Dextrose (D50w Syringe) 50 ml Q15M PRN IV DECREASED GLUCOSE; Start 07/20/18 at 23:00 Melatonin (Melatonin) 3 mg HS PRN PO INSOMNIA Last administered on 11/06/18 03:43; Admin Dose 3 MG; Start 07/20/18 at 23:00 Loratadine (Claritin) 10 mg DAILY PRN PO ALLERGIC REACTION Last administered on 08/07/18 12:48; Admin Dose 10 MG; Start 08/07/18 at 12:30 Hydralazine HCl (Apresoline) 10 mg Q6H PRN PO ELEVATED BLOOD PRESSURE Last administered on 11/04/18 11:32; Admin Dose 10 MG; Start 08/08/18 at 04:30 Hydralazine HCl (Apresoline) 25 mg TID PO Last administered on 11/07/18 08:50; Admin Dose 25 MG; Start 08/08/18 at 13:00 Eye Lubricant (Artificial Tears Oph) 2 drop QID BOTH EYES Last administered on 11/07/18 08:54; Admin Dose 2 DROP; Start 08/09/18 at 11:00 Calcium Carbonate (Tums) 500 mg PRN PRN PO HEARTBURN Last administered on 10/05/18 12:34; Admin Dose 500 MG; Start 08/09/18 at 14:30 Al Hydrox/Mg Hydrox/Simethicone (Mag-Al Plus) 30 ml Q4H PRN PO GASTROINTESTINAL UPSET; Start 09/10/18 at 18:00 Ondansetron HCl (Zofran Inj) 4 mg Q6H PRN IV NAUSEA AND/OR VOMITING Last administered on 11/03/18 21:02; Admin Dose 4 MG; Start 09/26/18 at 07:30 Pantoprazole (Protonix Tab) 40 mg BID@06,18 PO Last administered on 11/06/18 17:40; Admin Dose 40 MG; Start 10/06/18 at 18:00 Phenyleph/Shark Oil/Min Oil/Petrol (Formulation R Oint) 1 applic PRN PRN [place] HEMORROID PAIN/ITCHING Last administered on 10/16/18 08:32; Admin Dose 1 APPLIC; Start 10/08/18 at 02:28 Lactulose (Enulose) 20 gm Q6H PRN PO constipation Last administered on 11/06/18 16:42; Admin Dose 20 GM; Start 10/08/18 at 12:00 Docusate Sodium (Colace) 200 mg HS PO Last administered on 11/06/18 20:29; Admin Dose 200 MG; Start 10/08/18 at 21:00 Tramadol HCl (Ultram) 100 mg Q6H PRN PO PAIN LEVEL 6-10 Last administered on 11/07/18 08:52; Admin Dose 100 MG; Start 10/09/18 at 18:30 Albumin Human 250 ml @ 250 mls/hr WITH DIALYSIS PRN IV SBP<90; Start 10/11/18 at 12:30 Sodium Chloride (NS) -To prime the dialy... DIRECTED FOR HD PRN IV SBP<90; Start 10/11/18 at 12:30 Lubiprostone (Amitiza) 24 mcg BID PO Last administered on 11/06/18 20:30; Admin Dose 24 MCG; Start 10/12/18 at 10:30 Heparin Sodium (Porcine) (Heparin (1000 Units/ml)) 4,700 unit AFTER DIALYSIS CATHETER Last administered on 10/12/18 23:36; Admin Dose 4,700 UNIT; Start 10/12/18 at 22:30 Heparin Sodium (Porcine) (Heparin (5000 Units/1ml)) 5,000 unit BID SC Last administered on 11/07/18 08:59; Admin Dose 5,000 UNIT; Start 10/15/18 at 13:30 Loperamide HCl (Imodium Cap) 2 mg QID PRN PO DIARRHEA Last administered on 10/30/18 15:45; Admin Dose 2 MG; Start 10/23/18 at 18:30 Cephalexin (Keflex) 500 mg Q12 PO Last administered on 11/07/18 08:54; Admin Dose 500 MG; Start 10/29/18 at 12:30 Neomycin/ Polymyxin/ Dexamethasone (Maxitrol Oph Susp) 1 drop QID RIGHT EYE Last administered on 11/07/18 08:51; Admin Dose 1 DROP; Start 10/30/18 at 17:00 Gabapentin (Neurontin) 100 mg BID PO Last administered on 11/07/18 08:50; Admin Dose 100 MG; Start 10/31/18 at 09:00 Furosemide (Lasix) 40 mg DAILY PO Last administered on 11/07/18 08:53; Admin Dose 40 MG; Start 11/02/18 at 17:47 Insulin Aspart (Novolog Insulin Pen) NOVOLOG *MILD* ALGORITHM WITH MEALS BEDTIME SC Last administered on 11/07/18 09:00; Admin Dose 2 UNIT; Start 11/04/18 at 07:50 Diagnostic Test (Pha) (Accu-Chek) 1 ea 02 XX Last administered on 11/07/18 02:32; Admin Dose 1 EA; Start 11/05/18 at 02:00 Insulin Glargine (Lantus) 8 units DAILY@2000 SC Last administered on 11/06/18 20:28; Admin Dose 8 UNITS; Start 11/04/18 at 20:00 Nitroglycerin (Nitroglycerin (Sl Tab) 0.4 Mg) 1 tab Q5M PRN SL ANGINA; Start 11/05/18 at 14:00 Phenol (Chloraseptic Throat [place]) 2 spray Q2H PRN [place] SORE THROAT; Start 11/05/18 at 19:00 Ketorolac Tromethamine (Toradol) 15 mg Q6H PRN IV PAIN Last administered on 11/07/18 02:32; Admin Dose 15 MG; Start 11/05/18 at 21:30; Stop 11/08/18 at 21:29 Miscellaneous Information (* Miscellaneous Pharmacy Order) PLEASE RENEW MEDS DUE 2... Q8H XX ; Start 11/07/18 at 12:30 KOFI SWANN MD Nov 07, 2018 13:01
[2018-11-07] MEDS: LACTULOSE 30ML CUP PO PRN (16:43)
[2018-11-07] MEDS: INSULIN GLARGINE [LANTus] (100 UNITS/ML) SYG SC SCH (21:23)
[2018-11-07] MEDS: DOCUSATE SODIUM 100 MG CAP PO SCH (21:27)
[2018-11-08] MEDS: KETOROLAC 15 MG INJ IV PRN (00:16)
[2018-11-08 02:00] VITALS: BP 101/71; PULSE 76; RESP 16
[2018-11-08] MEDS: ACCUCHECK AT 2AM (Patients on SS coverage) XX SCH (02:00)
[2018-11-08] MEDS: traMADol 50 MG TAB PO PRN ×2 (07:16→21:39)
[2018-11-08 08:20] VITALS: BP 138/78; PULSE 79; RESP 19
[2018-11-08] MEDS: INSULIN ASPART [NOVOLOG] 3 ML PEN SC SCH ×4 (09:15→21:21)
[2018-11-08] MEDS: GABAPENTIN 100 MG CAP PO SCH ×2 (09:16→21:24)
[2018-11-08] MEDS: HEPARIN 5,000 UNIT/1 ML VIAL SC SCH ×2 (09:16→21:21)
[2018-11-08] MEDS: CEPHALEXIN 500 MG CAP PO SCH (09:17)
[2018-11-08] MEDS: FUROSEMIDE 40 MG TAB PO SCH (09:17)
[2018-11-08] MEDS: NEOMYC/POLYMYX/DEXAMETH OPH 5 ML RIGHT EYE SCH ×4 (09:17→21:29)
[2018-11-08] MEDS: ALLOPURINOL 100 MG TAB PO SCH (09:17)
[2018-11-08] MEDS: LUBIPROSTONE 24 MCG CAP PO SCH ×2 (09:17→21:24)
[2018-11-08] MEDS: ARTIFICIAL TEARS 15 ML OPH BOTH EYES SCH ×4 (09:18→21:29)
[2018-11-08] MEDS: BALSAM PERU/CASTOR OIL 60 GM TUBE TOP SCH ×2 (09:18→21:29)
[2018-11-08] MEDS: ONDANSETRON 4 MG INJ IV PRN (13:27)
--- NOTE | 2018-11-08 14:22 | PN ---
Date/Time of Note Date/Time of Note DATE: 11/08/18 TIME: 14:19 Assessment/Plan VTE Prophylaxis Risk score (from Nsg)>0 risk: 7 SCD applied (from Nsg): Yes Pharmacological prophylaxis: NA/contraindicated Pharm contraindication: low risk/ambulating Lines/Catheters IV Catheter Type (from Nrsg): Mid Line Urinary Cath still in place: No Assessment/Plan Hospital Course 58 y/o with 1. . ckd iii-iv now with the complications of hyperkalemia/volume overload, patient has been refusing Kayexalate Veltaastrida has also been refusing dialysis, patient was explained the risks and consequences and patient completely understands the risks and consequences, now agreed, on and off Hd once a week s/p new permacath placement due to malfunctioning permacath 2. hx c diff hx 3. Chronic kidney disease, 4. Morbid obesity. 5. Diabetes. 6. Hypertension, 7. Gout.hx 8. Neuropathy. 9. History of congestive heart failure. 10 weakness 11 deconditioning 13 Left shoulde pain, TTP ? Frozen shoulder , shoulder impingement 14 s/p Fall ? AMS confusion likley due to UTI 15 uti klebsiella and enterococcus 16 diarrhea 15 vomtiing/? contipation> refuse labs again 16 Dizziness> chronic ? Postural 17 UTI 18 rectal pain with fissure 19 malfunctioning permacath s/p new permacath on 11/03/18 Plan - repeat labs tmw - Pt said does not want any av fistulas/graft in future, demanding narcotics,explained to her her limiting ability to function on narcotics as she gets extremely lethargic and sleepy on narcotics and would limit her ability to participate in therapy as pt says that she is only here for PT and miute " she is able to go from bed to commode 3 times she will be out of here" -cw With Lasix -c w ultram for pain and toradol for pain with midline - dc keflex, recchek UA - cw gabapentin renally dosed -She is not cooperative in getting 24-hour urine studies for determining the creatinine clearance to determine if can come off of HD - Ultram and toradol for pain - increase lantus 15 untis, FS > 200 and change diet to 1800 ADA renal arrange for SNIF with HD placement,pt already discharged, Spoke to CM , still no placement Result Diagram: 2/2/19 1203 Results 24hrs Laboratory Tests Test 11/07/18 18:12 11/07/18 21:15 11/08/18 02:10 11/08/18 09:14 Bedside Glucose 232 H 200 208 210 Test 11/08/18 13:21 Bedside Glucose 204 Subjective 24 Hr Interval Summary Free Text/Dictation Some nausea. Exam/Review of Systems Exam Vitals Vital Signs Date Temp Pulse Resp B/P (MAP) Pulse Ox O2 O2 Flow FiO2 Time Delivery Rate 11/08/18 98.7 79 19 138/78 96 08:20 (98) 11/08/18 Room Air 02:00 Intake and Output 11/07/18 11/07/18 11/08/18 1515:00 23:00 07:00 IntakeIntake Total 400 ml OutputOutput Total 350 ml BalanceBalance 50 ml Exam Morbidle obese respiratory: clear to auscultation Cardiovascular: regular rate and rhythm Gastrointestinal: soft Musculoskeletal: range of motion (pain+) Extremities: No edema tender to touch everywhere fibromyalgia? rt permcath Results Results 24hrs Laboratory Tests Test 11/07/18 18:12 11/07/18 21:15 11/08/18 02:10 11/08/18 09:14 Bedside Glucose 232 H 200 208 210 Test 11/08/18 13:21 Bedside Glucose 204 Medications Medication Current Medications Acetaminophen (Tylenol Tab) 325 mg Q4H PRN PO MILD PAIN(1-3)OR ELEVATED TEMP Last administered on 10/18/18at 09:27; Admin Dose 325 MG; Start 07/20/18 at 23:00 Allopurinol (Zyloprim) 100 mg DAILY PO Last administered on 11/08/18at 09:17; Admin Dose 100 MG; Start 07/21/18 at 09:00 IV Flush (NS 3 ml) 3 ml PER PROTOCOL IV ; Start 07/20/18 at 23:00 Acetaminophen (Tylenol Supp) 650 mg Q6H PRN [place] PAIN LEVEL 1-3 OR FEVER; Start 07/20/18 at 23:00 Bisacodyl (Dulcolax) 5 mg DAILY PRN PO CONSTIPATION Last administered on 11/06/18 09:23; Admin Dose 5 MG; Start 07/20/18 at 23:00 Ergocalciferol (Drisdol) 50,000 unit Lacy@0900 PO Last administered on 11/06/18 09:13; Admin Dose 50,000 UNIT; Start 07/24/18 at 09:00 Miscellaneous Information 1 ea NOTE XX ; Start 07/20/18 at 23:00 Dextrose (D50w Syringe) 25 ml Q15M PRN IV DECREASED GLUCOSE; Start 07/20/18 at 23:00 Dextrose (D50w Syringe) 50 ml Q15M PRN IV DECREASED GLUCOSE; Start 07/20/18 at 23:00 Melatonin (Melatonin) 3 mg HS PRN PO INSOMNIA Last administered on 11/06/18 03:43; Admin Dose 3 MG; Start 07/20/18 at 23:00 Loratadine (Claritin) 10 mg DAILY PRN PO ALLERGIC REACTION Last administered on 08/07/18 12:48; Admin Dose 10 MG; Start 08/07/18 at 12:30 Hydralazine HCl (Apresoline) 10 mg Q6H PRN PO ELEVATED BLOOD PRESSURE Last administered on 11/04/18 11:32; Admin Dose 10 MG; Start 08/08/18 at 04:30 Hydralazine HCl (Apresoline) 25 mg TID PO Last administered on 11/08/18 13:28; Admin Dose 25 MG; Start 08/08/18 at 13:00 Eye Lubricant (Artificial Tears Oph) 2 drop QID BOTH EYES Last administered on 11/08/18 09:18; Admin Dose 2 DROP; Start 08/09/18 at 11:00 Calcium Carbonate (Tums) 500 mg PRN PRN PO HEARTBURN Last administered on 10/05/18 12:34; Admin Dose 500 MG; Start 08/09/18 at 14:30 Al Hydrox/Mg Hydrox/Simethicone (Mag-Al Plus) 30 ml Q4H PRN PO GASTROINTESTINAL UPSET; Start 09/10/18 at 18:00 Ondansetron HCl (Zofran Inj) 4 mg Q6H PRN IV NAUSEA AND/OR VOMITING Last administered on 11/08/18 13:27; Admin Dose 4 MG; Start 09/26/18 at 07:30 Phenyleph/Shark Oil/Min Oil/Petrol (Formulation R Oint) 1 applic PRN PRN [place] HEMORROID PAIN/ITCHING Last administered on 10/16/18 08:32; Admin Dose 1 APPLIC; Start 10/08/18 at 02:28 Lactulose (Enulose) 20 gm Q6H PRN PO constipation Last administered on 11/07/18 16:43; Admin Dose 20 GM; Start 10/08/18 at 12:00 Docusate Sodium (Colace) 200 mg HS PO Last administered on 11/07/18 21:27; Admin Dose 200 MG; Start 10/08/18 at 21:00 Tramadol HCl (Ultram) 100 mg Q6H PRN PO PAIN LEVEL 6-10 Last administered on 11/08/18 07:16; Admin Dose 100 MG; Start 10/09/18 at 18:30 Albumin Human 250 ml @ 250 mls/hr WITH DIALYSIS PRN IV SBP<90; Start 10/11/18 at 12:30 Sodium Chloride (NS) -To prime the dialy... DIRECTED FOR HD PRN IV SBP<90; Start 10/11/18 at 12:30 Lubiprostone (Amitiza) 24 mcg BID PO Last administered on 11/08/18 09:17; Admin Dose 24 MCG; Start 10/12/18 at 10:30 Heparin Sodium (Porcine) (Heparin (1000 Units/ml)) 4,700 unit AFTER DIALYSIS CATHETER Last administered on 10/12/18 23:36; Admin Dose 4,700 UNIT; Start 10/12/18 at 22:30 Heparin Sodium (Porcine) (Heparin (5000 Units/1ml)) 5,000 unit BID SC Last administered on 11/08/18 09:16; Admin Dose 5,000 UNIT; Start 10/15/18 at 13:30 Loperamide HCl (Imodium Cap) 2 mg QID PRN PO DIARRHEA Last administered on 10/30/18 15:45; Admin Dose 2 MG; Start 10/23/18 at 18:30 Neomycin/ Polymyxin/ Dexamethasone (Maxitrol Oph Susp) 1 drop QID RIGHT EYE Last administered on 11/08/18 09:17; Admin Dose 1 DROP; Start 10/30/18 at 17:00 Gabapentin (Neurontin) 100 mg BID PO Last administered on 11/08/18 09:16; Admin Dose 100 MG; Start 10/31/18 at 09:00 Furosemide (Lasix) 40 mg DAILY PO Last administered on 11/08/18 09:17; Admin Dose 40 MG; Start 11/02/18 at 17:47 Insulin Aspart (Novolog Insulin Pen) NOVOLOG *MILD* ALGORITHM WITH MEALS BEDTIME SC Last administered on 11/08/18at 13:27; Admin Dose 2 UNIT; Start 11/04/18 at 07:50 Diagnostic Test (Pha) (Accu-Chek) 1 ea 02 XX Last administered on 11/07/18at 02:32; Admin Dose 1 EA; Start 11/05/18 at 02:00 Nitroglycerin (Nitroglycerin (Sl Tab) 0.4 Mg) 1 tab Q5M PRN SL ANGINA; Start 11/05/18 at 14:00 Phenol (Chloraseptic Throat [place]) 2 spray Q2H PRN [place] SORE THROAT; Start 11/05/18 at 19:00 Ketorolac Tromethamine (Toradol) 15 mg Q6H PRN IV PAIN Last administered on 11/08/18at 00:16; Admin Dose 15 MG; Start 11/05/18 at 21:30; Stop 11/08/18 at 21:29 Miscellaneous Information (* Miscellaneous Pharmacy Order) PLEASE RENEW MEDS DUE 2... Q8H XX Last administered on 11/07/18at 12:30; Admin Dose 1 EA; Start 11/07/18 at 12:30 Insulin Glargine (Lantus) 15 units DAILY@2000 SC ; Start 11/08/18 at 20:00; Status KOFI OBRIEN MD Nov 08, 2018 14:22
[2018-11-08 19:39] VITALS: BP 121/69; PULSE 88; RESP 16
[2018-11-08] MEDS: DOCUSATE SODIUM 100 MG CAP PO SCH (21:00)
[2018-11-08] MEDS: INSULIN GLARGINE [LANTus] (100 UNITS/ML) SYG SC SCH (21:20)
[2018-11-09 02:00] VITALS: BP 124/66; PULSE 85; RESP 18
[2018-11-09] MEDS: ACCUCHECK AT 2AM (Patients on SS coverage) XX SCH (02:00)
[2018-11-09] MEDS: MELATONIN 3 MG TABLET PO PRN (02:09)
[2018-11-09 08:21] VITALS: BP 98/62; PULSE 78; RESP 19
[2018-11-09] MEDS: traMADol 50 MG TAB PO PRN ×2 (08:54→18:26)
[2018-11-09] MEDS: HEPARIN 5,000 UNIT/1 ML VIAL SC SCH ×2 (08:55→21:49)
[2018-11-09] MEDS: ALLOPURINOL 100 MG TAB PO SCH (08:56)
[2018-11-09] MEDS: LUBIPROSTONE 24 MCG CAP PO SCH ×2 (08:56→21:01)
[2018-11-09] MEDS: INSULIN ASPART [NOVOLOG] 3 ML PEN SC SCH ×4 (08:56→21:00)
[2018-11-09] MEDS: GABAPENTIN 100 MG CAP PO SCH ×2 (08:56→21:01)
[2018-11-09] MEDS: NEOMYC/POLYMYX/DEXAMETH OPH 5 ML RIGHT EYE SCH ×4 (08:57→21:02)
[2018-11-09] MEDS: FUROSEMIDE 40 MG TAB PO SCH (08:57)
[2018-11-09] MEDS: ARTIFICIAL TEARS 15 ML OPH BOTH EYES SCH (08:57)
[2018-11-09] MEDS: BALSAM PERU/CASTOR OIL 60 GM TUBE TOP SCH ×2 (08:58→21:02)
[2018-11-09] MEDS ORDERED: HEPARIN 1000 UNITS/ML 10 ML INJ CATHETER ONE (10:00)
--- NOTE | 2018-11-09 11:19 | PN ---
Date/Time of Note Date/Time of Note DATE: 11/09/18 TIME: 11:12 Assessment/Plan VTE Prophylaxis Risk score (from Nsg)>0 risk: 7 SCD applied (from Nsg): Yes Pharmacological prophylaxis: NA/contraindicated, heparin Pharm contraindication: low risk/ambulating Lines/Catheters IV Catheter Type (from Nrsg): Mid Line Urinary Cath still in place: No Assessment/Plan Hospital Course 58 y/o with 1. . ckd iii-iv now with the complications of hyperkalemia/volume overload, patient has been refusing Kayexalate Veltaastrida has also been refusing dialysis, patient was explained the risks and consequences and patient completely understands the risks and consequences, now agreed, on and off Hd s/p new permacath placement due to malfunctioning permacath 2. hx c diff hx 3. Chronic kidney disease, 4. Morbid obesity. 5. Diabetes. 6. Hypertension, 7. Gout.hx 8. Neuropathy. 9. History of congestive heart failure. 10 weakness 11 deconditioning 13 Left shoulde pain, TTP ? Frozen shoulder , shoulder impingement 14 s/p Fall ? AMS confusion likley due to UTI 15 uti klebsiella and enterococcus 16 diarrhea 15 vomtiing/? contipation> refuse labs again 16 Dizziness> chronic ? Postural 17 UTI 18 rectal pain with fissure 19 malfunctioning permacath s/p new permacath on 11/03/18 20 hyperkalemia Plan - hd today for hyperkalemia and elevated bun.cr - Pt said does not want any av fistulas/graft in future, demanding narcotics,explained to her her limiting ability to function on narcotics as she gets extremely lethargic and sleepy on narcotics and would limit her ability to participate in therapy as pt says that she is only here for PT and miute " she is able to go from bed to commode 3 times she will be out of here" - Pt is threatening me that she will take out permcath if restriction are not remove don diet> spoke to patient and told her that it is for her benefit as k, phos and sugars are high so cannot remove restriction> spoke to marketing campaign analyst max we can do acc to her weight is increase calories from 1800>2000 elvira diet with same restrictions -cw With Lasix -c w ultram for pain and toradol for pain with midline - cw gabapentin renally dosed -She is not cooperative in getting 24-hour urine studies for determining the creatinine clearance to determine if can come off of HD - Ultram and toradol for pain - cw lantus 15 units arrange for SNIF with HD placement,pt already discharged, Spoke to CM , still no placement multidisciplinary meeting Result Diagram: 11/09/18818 Results 24hrs Laboratory Tests Test 11/08/18 13:21 11/08/18 18:03 11/08/18 21:17 11/09/18 02:05 Bedside Glucose 204 214 200 179 Test 11/09/18 08:18 11/09/18 08:19 Bedside Glucose 167 Sodium Level 138 Potassium Level 5.6 H Chloride Level 105 Carbon Dioxide Level 24 Anion Gap 9 Blood Urea Nitrogen 82 H Creatinine 4.36 H Est Glomerular Filtrat 10 L Rate mL/min Glucose Level 182 Calcium Level 9.0 Phosphorus Level 5.6 H Magnesium Level 1.9 Total Bilirubin 0.0 L Direct Bilirubin 0.00 Indirect Bilirubin 0.0 Aspartate Amino 23 Transf (AST/SGOT) Alanine 11 L Aminotransferase (ALT/SG PT) Alkaline Phosphatase 106 Total Protein 7.3 Albumin 3.4 Globulin 3.90 H Albumin/Globulin Ratio 0.87 Lipase 41 Subjective 24 Hr Interval Summary Free Text/Dictation Pt is complaining about her diet restrictions Explained to her K , Phos and sugars high so need to be on restriction spoke to marketing campaign analyst Kathryn acc to weight she is [phone] kca diet> max we offer is 2000 kcal diet Exam/Review of Systems Exam Vitals Vital Signs Date Temp Pulse Resp B/P (MAP) Pulse Ox O2 O2 Flow FiO2 Time Delivery Rate 11/09/18 98.2 78 19 98/62 (74) 98 Room Air 08:21 Intake and Output 11/08/18 11/08/18 11/09/18 1414:59 22:59 06:59 IntakeIntake Total 400 ml BalanceBalance 400 ml Exam MorbidlY obese respiratory: clear to auscultation Cardiovascular: regular rate and rhythm Gastrointestinal: soft Musculoskeletal: range of motion (pain+) Extremities: No edema tender to touch everywhere fibromyalgia? rt permcath Results Results 24hrs Laboratory Tests Test 11/08/18 13:21 11/08/18 18:03 11/08/18 21:17 11/09/18 02:05 Bedside Glucose 204 214 200 179 Test 11/09/18 08:18 11/09/18 08:19 Bedside Glucose 167 Sodium Level 138 Potassium Level 5.6 H Chloride Level 105 Carbon Dioxide Level 24 Anion Gap 9 Blood Urea Nitrogen 82 H Creatinine 4.36 H Est Glomerular Filtrat 10 L Rate mL/min Glucose Level 182 Calcium Level 9.0 Phosphorus Level 5.6 H Magnesium Level 1.9 Total Bilirubin 0.0 L Direct Bilirubin 0.00 Indirect Bilirubin 0.0 Aspartate Amino 23 Transf (AST/SGOT) Alanine 11 L Aminotransferase (ALT/SG PT) Alkaline Phosphatase 106 Total Protein 7.3 Albumin 3.4 Globulin 3.90 H Albumin/Globulin Ratio 0.87 Lipase 41 Medications Medication Current Medications Acetaminophen (Tylenol Tab) 325 mg Q4H PRN PO MILD PAIN(1-3)OR ELEVATED TEMP Last administered on 10/18/18 09:27; Admin Dose 325 MG; Start 07/20/18 at 23:00 Allopurinol (Zyloprim) 100 mg DAILY PO Last administered on 11/09/18 08:56; Admin Dose 100 MG; Start 07/21/18 at 09:00 IV Flush (NS 3 ml) 3 ml PER PROTOCOL IV ; Start 07/20/18 at 23:00 Acetaminophen (Tylenol Supp) 650 mg Q6H PRN [place] PAIN LEVEL 1-3 OR FEVER; Start 07/20/18 at 23:00 Bisacodyl (Dulcolax) 5 mg DAILY PRN PO CONSTIPATION Last administered on 11/06/18 09:23; Admin Dose 5 MG; Start 07/20/18 at 23:00 Ergocalciferol (Drisdol) 50,000 unit Lacy@0900 PO Last administered on 11/06/18 09:13; Admin Dose 50,000 UNIT; Start 07/24/18 at 09:00 Miscellaneous Information 1 ea NOTE XX ; Start 07/20/18 at 23:00 Dextrose (D50w Syringe) 25 ml Q15M PRN IV DECREASED GLUCOSE; Start 07/20/18 at 23:00 Dextrose (D50w Syringe) 50 ml Q15M PRN IV DECREASED GLUCOSE; Start 07/20/18 at 23:00 Melatonin (Melatonin) 3 mg HS PRN PO INSOMNIA Last administered on 11/09/18 02:09; Admin Dose 3 MG; Start 07/20/18 at 23:00 Loratadine (Claritin) 10 mg DAILY PRN PO ALLERGIC REACTION Last administered on 08/07/18 12:48; Admin Dose 10 MG; Start 08/07/18 at 12:30 Hydralazine HCl (Apresoline) 10 mg Q6H PRN PO ELEVATED BLOOD PRESSURE Last administered on 11/04/18 11:32; Admin Dose 10 MG; Start 08/08/18 at 04:30 Hydralazine HCl (Apresoline) 25 mg TID PO Last administered on 11/08/18 21:27; Admin Dose 25 MG; Start 08/08/18 at 13:00 Eye Lubricant (Artificial Tears Oph) 2 drop QID BOTH EYES Last administered on 11/09/18 08:57; Admin Dose 2 DROP; Start 08/09/18 at 11:00 Calcium Carbonate (Tums) 500 mg PRN PRN PO HEARTBURN Last administered on 10/05/18 12:34; Admin Dose 500 MG; Start 08/09/18 at 14:30 Al Hydrox/Mg Hydrox/Simethicone (Mag-Al Plus) 30 ml Q4H PRN PO GASTROINTESTINAL UPSET; Start 09/10/18 at 18:00 Ondansetron HCl (Zofran Inj) 4 mg Q6H PRN IV NAUSEA AND/OR VOMITING Last administered on 11/08/18 13:27; Admin Dose 4 MG; Start 09/26/18 at 07:30 Lactulose (Enulose) 20 gm Q6H PRN PO constipation Last administered on 11/07/18 16:43; Admin Dose 20 GM; Start 10/08/18 at 12:00 Docusate Sodium (Colace) 200 mg HS PO Last administered on 11/07/18 21:27; Admin Dose 200 MG; Start 10/08/18 at 21:00 Tramadol HCl (Ultram) 100 mg Q6H PRN PO PAIN LEVEL 6-10 Last administered on 11/09/18 08:54; Admin Dose 100 MG; Start 10/09/18 at 18:30 Albumin Human 250 ml @ 250 mls/hr WITH DIALYSIS PRN IV SBP<90; Start 10/11/18 at 12:30 Sodium Chloride (NS) -To prime the dialy... DIRECTED FOR HD PRN IV SBP<90; Start 10/11/18 at 12:30 Lubiprostone (Amitiza) 24 mcg BID PO Last administered on 11/09/18 08:56; Admin Dose 24 MCG; Start 10/12/18 at 10:30 Heparin Sodium (Porcine) (Heparin (1000 Units/ml)) 4,700 unit AFTER DIALYSIS CATHETER Last administered on 10/12/18 23:36; Admin Dose 4,700 UNIT; Start 10/12/18 at 22:30 Heparin Sodium (Porcine) (Heparin (5000 Units/1ml)) 5,000 unit BID SC Last administered on 11/09/18 08:55; Admin Dose 5,000 UNIT; Start 10/15/18 at 13:30 Loperamide HCl (Imodium Cap) 2 mg QID PRN PO DIARRHEA Last administered on 10/30/18 15:45; Admin Dose 2 MG; Start 10/23/18 at 18:30 Neomycin/ Polymyxin/ Dexamethasone (Maxitrol Oph Susp) 1 drop QID RIGHT EYE Last administered on 11/09/18 08:57; Admin Dose 1 DROP; Start 10/30/18 at 17:00 Gabapentin (Neurontin) 100 mg BID PO Last administered on 11/09/18 08:56; Admin Dose 100 MG; Start 10/31/18 at 09:00 Furosemide (Lasix) 40 mg DAILY PO Last administered on 11/09/18 08:57; Admin Dose 40 MG; Start 11/02/18 at 17:47 Insulin Aspart (Novolog Insulin Pen) NOVOLOG *MILD* ALGORITHM WITH MEALS BEDTIME SC Last administered on 11/09/18 08:56; Admin Dose 1 UNIT; Start 11/04/18 at 07:50 Diagnostic Test (Pha) (Accu-Chek) 1 ea 02 XX Last administered on 11/07/18 02:32; Admin Dose 1 EA; Start 11/05/18 at 02:00 Nitroglycerin (Nitroglycerin (Sl Tab) 0.4 Mg) 1 tab Q5M PRN SL ANGINA; Start 11/05/18 at 14:00 Phenol (Chloraseptic Throat [place]) 2 spray Q2H PRN [place] SORE THROAT; Start 11/05/18 at 19:00 Miscellaneous Information (* Miscellaneous Pharmacy Order) PLEASE RENEW MEDS DUE 2... Q8H XX Last administered on 11/07/18at 12:30; Admin Dose 1 EA; Start 11/07/18 at 12:30 Insulin Glargine (Lantus) 15 units DAILY@2000 SC Last administered on 11/08/18at 21:20; Admin Dose 15 UNITS; Start 11/08/18 at 20:00 KOFI SWANN MD Nov 09, 2018 11:19
[2018-11-09 16:05] VITALS: BP 113/58; PULSE 74; RESP 20
[2018-11-09 19:50] VITALS: BP 115/51; PULSE 77; RESP 20
[2018-11-09] MEDS: INSULIN GLARGINE [LANTus] (100 UNITS/ML) SYG SC SCH (21:50)
[2018-11-09] MEDS: ONDANSETRON 4 MG INJ IV PRN (21:58)
[2018-11-10] VITALS (15 sets, daily range): BP systolic 97–131; BP diastolic 52–74; PULSE 71–82; RESP 16–20
[2018-11-10] MEDS: traMADol 50 MG TAB PO PRN ×4 (00:06→23:06)
[2018-11-10] MEDS: ACCUCHECK AT 2AM (Patients on SS coverage) XX SCH (02:00)
[2018-11-10] MEDS: MELATONIN 3 MG TABLET PO PRN (02:25)
[2018-11-10] MEDS: INSULIN ASPART [NOVOLOG] 3 ML PEN SC SCH ×4 (07:50→21:00)
[2018-11-10] MEDS: NEOMYC/POLYMYX/DEXAMETH OPH 5 ML RIGHT EYE SCH ×4 (09:00→21:00)
[2018-11-10] MEDS: FUROSEMIDE 40 MG TAB PO SCH ×2 (09:00→15:57)
[2018-11-10] MEDS: GABAPENTIN 100 MG CAP PO SCH ×2 (09:32→23:06)
[2018-11-10] MEDS: ALLOPURINOL 100 MG TAB PO SCH (09:32)
[2018-11-10] MEDS: LUBIPROSTONE 24 MCG CAP PO SCH ×2 (09:32→23:05)
[2018-11-10] MEDS: HEPARIN 5,000 UNIT/1 ML VIAL SC SCH ×2 (09:35→22:09)
[2018-11-10] MEDS: BALSAM PERU/CASTOR OIL 60 GM TUBE TOP SCH ×2 (09:36→23:07)
--- NOTE | 2018-11-10 10:36 | PN ---
Date/Time of Note Date/Time of Note DATE: 11/10/18 TIME: 10:35 Assessment/Plan VTE Prophylaxis Risk score (from Nsg)>0 risk: 7 SCD applied (from Ns): No SCD contraindicated: low risk/ambulating Pharmacological prophylaxis: NA/contraindicated Pharm contraindication: low risk/ambulating Lines/Catheters IV Catheter Type (from Nrsg): Mid Line Urinary Cath still in place: No Assessment/Plan Hospital Course 58 y/o with 1. . ckd iii-iv now with the complications of hyperkalemia/volume overload, patient has been refusing Kayexalate [place] has also been refusing dialysis, patient was explained the risks and consequences and patient completely understands the risks and consequences, now agreed, on and off Hd s/p new permacath placement due to malfunctioning permacath 2. hx c diff hx 3. Chronic kidney disease, 4. Morbid obesity. 5. Diabetes. 6. Hypertension, 7. Gout.hx 8. Neuropathy. 9. History of congestive heart failure. 10 weakness 11 deconditioning 13 Left shoulde pain, TTP ? Frozen shoulder , shoulder impingement 14 s/p Fall ? AMS confusion likley due to UTI 15 uti klebsiella and enterococcus 16 diarrhea 15 vomtiing/? contipation> refuse labs again 16 Dizziness> chronic ? Postural 17 UTI 18 rectal pain with fissure 19 malfunctioning permacath s/p new permacath on 11/03/18 20 hyperkalemia Plan - hd today for hyperkalemia and elevated bun.cr patient refused hemodialysis yesterday explained to the patient about importance of getting hemodialysis with abnormal potassium patient will said that we will try to do get dialysis today, however was also stating that if I do not change her restrictions of low potassium and low carb diet then she would refuse hemodialysis and she would also want the permacath to be taken out explained to the patient she needs to be on these restrictions as, her renal labs are worse and it was for her own benefit,.also told the patient that her calorie intake has been increased from [id number] -add naproxen and increase gabapentin 100 3 times daily - Pt said does not want any av fistulas/graft in future, demanding narcotic s,explained to her her limiting ability to function on narcotics as she gets extremely lethargic and sleepy on narcotics and would limit her ability to participate in therapy as pt says that she is only here for PT and minute " she is able to go from bed to commode 3 times she will be out of here" - Pt is threatening me that she will take out permcath if restriction are not remove don diet> spoke to patient and told her that it is for her benefit as k, phos and sugars are high so cannot remove restriction> spoke to security director max we can do acc to her weight is increase calories from 1800>2000 elvira diet with same restrictions -cw With Lasix -c w ultram for pain and toradol for pain with midline - cw gabapentin renally dosed -She is not cooperative in getting 24-hour urine studies for determining the creatinine clearance to determine if can come off of HD - cw lantus 15 units arrange for SNIF with HD placement,pt already discharged, Spoke to CM , still no placement multidisciplinary meeting Result Diagram: 11/09/18818 Results 24hrs Laboratory Tests Test 11/09/18 12:40 11/09/18 17:49 11/09/18 21:47 11/10/18 02:23 Bedside Glucose 176 177 147 181 Test 11/10/18 09:00 Bedside Glucose 146 Subjective 24 Hr Interval Summary Free Text/Dictation Patient is stating, :" If you do not change my diet and take me off of restrictions I will not get any dialysis today will remove the permacath out" Spoke to the patient and stated her that patient needs to be on her restrictions since her potassium is high phosphorus is high and it is for her own benefit Some pain at the permacath site Exam/Review of Systems Exam Vitals Vital Signs Date Temp Pulse Resp B/P (MAP) Pulse Ox O2 O2 Flow FiO2 Time Delivery Rate 11/10/18 98.0 82 18 97/52 (67) 93 07:50 11/10/18 Room Air 02:40 Intake and Output 11/09/18 11/09/18 11/10/18 1515:00 23:00 07:00 IntakeIntake Total 120 ml 480 ml OutputOutput Total 2 ml BalanceBalance 118 ml 480 ml Exam MorbidlY obese respiratory: clear to auscultation Cardiovascular: regular rate and rhythm Gastrointestinal: soft Musculoskeletal: range of motion (pain+) Extremities: No edema tender to touch everywhere fibromyalgia? rt permcath Results Results 24hrs Laboratory Tests Test 11/09/18 12:40 11/09/18 17:49 11/09/18 21:47 11/10/18 02:23 Bedside Glucose 176 177 147 181 Test 11/10/18 09:00 Bedside Glucose 146 Medications Medication Current Medications Acetaminophen (Tylenol Tab) 325 mg Q4H PRN PO MILD PAIN(1-3)OR ELEVATED TEMP Last administered on 10/18/18 09:27; Admin Dose 325 MG; Start 07/20/18 at 23:00 Allopurinol (Zyloprim) 100 mg DAILY PO Last administered on 11/10/18 09:32; Admin Dose 100 MG; Start 07/21/18 at 09:00 IV Flush (NS 3 ml) 3 ml PER PROTOCOL IV ; Start 07/20/18 at 23:00 Acetaminophen (Tylenol Supp) 650 mg Q6H PRN [place] PAIN LEVEL 1-3 OR FEVER; Start 07/20/18 at 23:00 Bisacodyl (Dulcolax) 5 mg DAILY PRN PO CONSTIPATION Last administered on 11/06/18 09:23; Admin Dose 5 MG; Start 07/20/18 at 23:00 Ergocalciferol (Drisdol) 50,000 unit Lacy@0900 PO Last administered on 11/06/18 09:13; Admin Dose 50,000 UNIT; Start 07/24/18 at 09:00 Miscellaneous Information 1 ea NOTE XX ; Start 07/20/18 at 23:00 Dextrose (D50w Syringe) 25 ml Q15M PRN IV DECREASED GLUCOSE; Start 07/20/18 at 23:00 Dextrose (D50w Syringe) 50 ml Q15M PRN IV DECREASED GLUCOSE; Start 07/20/18 at 23:00 Melatonin (Melatonin) 3 mg HS PRN PO INSOMNIA Last administered on 11/10/18 02:25; Admin Dose 3 MG; Start 07/20/18 at 23:00 Al Hydrox/Mg Hydrox/Simethicone (Mag-Al Plus) 30 ml Q4H PRN PO GASTROINTESTINAL UPSET; Start 09/10/18 at 18:00 Ondansetron HCl (Zofran Inj) 4 mg Q6H PRN IV NAUSEA AND/OR VOMITING Last administered on 11/09/18 21:58; Admin Dose 4 MG; Start 09/26/18 at 07:30 Tramadol HCl (Ultram) 100 mg Q6H PRN PO PAIN LEVEL 6-10 Last administered on 11/10/18 09:31; Admin Dose 100 MG; Start 10/09/18 at 18:30 Albumin Human 250 ml @ 250 mls/hr WITH DIALYSIS PRN IV SBP<90; Start 10/11/18 at 12:30 Sodium Chloride (NS) -To prime the dialy... DIRECTED FOR HD PRN IV SBP<90; Start 10/11/18 at 12:30 Lubiprostone (Amitiza) 24 mcg BID PO Last administered on 11/10/18 09:32; Admin Dose 24 MCG; Start 10/12/18 at 10:30 Heparin Sodium (Porcine) (Heparin (1000 Units/ml)) 4,700 unit AFTER DIALYSIS CATHETER Last administered on 10/12/18 23:36; Admin Dose 4,700 UNIT; Start 10/12/18 at 22:30 Heparin Sodium (Porcine) (Heparin (5000 Units/1ml)) 5,000 unit BID SC Last administered on 11/10/18 09:35; Admin Dose 5,000 UNIT; Start 10/15/18 at 13:30 Loperamide HCl (Imodium Cap) 2 mg QID PRN PO DIARRHEA Last administered on 10/30/18 15:45; Admin Dose 2 MG; Start 10/23/18 at 18:30 Neomycin/ Polymyxin/ Dexamethasone (Maxitrol Oph Susp) 1 drop QID RIGHT EYE Last administered on 11/09/18 21:02; Admin Dose 1 DROP; Start 10/30/18 at 17:00 Gabapentin (Neurontin) 100 mg BID PO Last administered on 11/10/18 09:32; Admin Dose 100 MG; Start 10/31/18 at 09:00 Furosemide (Lasix) 40 mg DAILY PO Last administered on 11/09/18 08:57; Admin Dose 40 MG; Start 11/02/18 at 17:47 Insulin Aspart (Novolog Insulin Pen) NOVOLOG *MILD* ALGORITHM WITH MEALS BEDTIME SC Last administered on 11/09/18 18:27; Admin Dose 1 UNIT; Start 11/04/18 at 07:50 Diagnostic Test (Pha) (Accu-Chek) 1 ea 02 XX Last administered on 11/07/18 02:32; Admin Dose 1 EA; Start 11/05/18 at 02:00 Nitroglycerin (Nitroglycerin (Sl Tab) 0.4 Mg) 1 tab Q5M PRN SL ANGINA; Start 11/05/18 at 14:00 Phenol (Chloraseptic Throat [place]) 2 spray Q2H PRN [place] SORE THROAT; Start 11/05/18 at 19:00 Miscellaneous Information (* Miscellaneous Pharmacy Order) PLEASE RENEW MEDS DUE 2... Q8H XX Last administered on 11/07/18at 12:30; Admin Dose 1 EA; Start 11/07/18 at 12:30 Insulin Glargine (Lantus) 15 units DAILY@2000 SC Last administered on 11/09/18at 21:50; Admin Dose 15 UNITS; Start 11/08/18 at 20:00 KOFI SWANN MD Nov 10, 2018 10:35
[2018-11-10] MEDS: HEPARIN 1000 UNITS/ML 10 ML INJ CATHETER SCH (12:29)
[2018-11-10] MEDS: BISACODYL (EC) 5 MG TAB PO PRN (16:03)
[2018-11-10] MEDS ORDERED: LACTULOSE 30ML CUP PO PRN ×2 (16:15→17:30)
[2018-11-10] MEDS: ONDANSETRON 4 MG INJ IV PRN ×2 (17:47→23:58)
[2018-11-10] MEDS: NAPROXEN 250 MG TAB PO PRN (23:06)
[2018-11-10] MEDS: INSULIN GLARGINE [LANTus] (100 UNITS/ML) SYG SC SCH (23:16)
[2018-11-11] MEDS: ACCUCHECK AT 2AM (Patients on SS coverage) XX SCH (02:00)
[2018-11-11 02:25] VITALS: BP 146/65; PULSE 75; RESP 20
[2018-11-11] MEDS: INSULIN ASPART [NOVOLOG] 3 ML PEN SC SCH ×4 (07:50→21:07)
[2018-11-11 08:40] VITALS: BP 147/70; PULSE 77; RESP 20
[2018-11-11] MEDS: NEOMYC/POLYMYX/DEXAMETH OPH 5 ML RIGHT EYE SCH ×4 (09:40→21:08)
[2018-11-11] MEDS: LUBIPROSTONE 24 MCG CAP PO SCH ×2 (09:40→21:07)
[2018-11-11] MEDS: ALLOPURINOL 100 MG TAB PO SCH (09:40)
[2018-11-11] MEDS: FUROSEMIDE 40 MG TAB PO SCH (09:40)
[2018-11-11] MEDS: GABAPENTIN 100 MG CAP PO SCH ×3 (09:40→21:07)
[2018-11-11] MEDS: BALSAM PERU/CASTOR OIL 60 GM TUBE TOP SCH ×2 (09:42→21:08)
[2018-11-11] MEDS: traMADol 50 MG TAB PO PRN (09:45)
[2018-11-11] MEDS: HEPARIN 5,000 UNIT/1 ML VIAL SC SCH ×2 (09:47→21:07)
--- NOTE | 2018-11-11 13:54 | PN ---
Date/Time of Note Date/Time of Note DATE: 11/11/18 TIME: 13:51 Assessment/Plan VTE Prophylaxis Risk score (from Nsg)>0 risk: 3 SCD applied (from Ns): No SCD contraindicated: other Pharmacological prophylaxis: heparin Lines/Catheters IV Catheter Type (from Nrsg): Central Line Central line still needed: Yes Urinary Cath still in place: No Assessment/Plan Hospital Course 1. ckd, hyperkalemia, resolved . Right chest permcath working 2. c diff hx 3. Opiates dependency 4. Morbid obesity. 5. Diabetes. 6. Hypertension, 7. Gout, hx 8. Neuropathy. 9. History of congestive heart failure. 10. weakness 11. deconditioning 12. Non compliance, pt refused [place], HD 13. Left shoulder chronic pain. X -ray was reviewed from the last visit, it is arthrosis left acromioclavicular joint 14. constipation 15. UTI 16. Hepatitis C 17. OA left knee, per XR severe degenerative changes of the left knee, more pronounced in the medial compartment. Assessment/Plan -c/w naproxen and c/w gabapentin 100 3 times daily - Pt said does not want any av fistulas/graft in future, demanding narcotics,explained to her her limiting ability to function on narcotics as she gets extremely lethargic and sleepy on narcotics and would limit her ability to participate in therapy as pt says that she is only here for PT and minute " she is able to go from bed to commode 3 times she will be out of here" -cw Lasix -c w ultram for pain and toradol for pain with midline -She is not cooperative in getting 24-hour urine studies for determining the creatinine clearance to determine if can come off of HD - cw lantus 15 units -arrange for SNF with HD placement, pt already discharged, Spoke to , still no placement -multidisciplinary meeting pending Result Diagram: 11/10/18 1152 Results 24hrs Laboratory Tests Test 11/10/18 17:35 11/10/18 23:12 11/11/18 08:24 11/11/18 12:56 Bedside Glucose 189 174 111 212 Subjective 24 Hr Interval Summary Free Text/Dictation pt requested Permcath to be removed Musculoskeletal: restricted range of motion Exam/Review of Systems Exam Vitals Vital Signs Date Temp Pulse Resp B/P (MAP) Pulse Ox O2 O2 Flow FiO2 Time Delivery Rate 11/11/18 98.2 77 20 147/70 95 08:40 (95) 11/10/18 Room Air 13:19 Intake and Output 11/10/18 11/10/18 11/11/18 1515:00 23:00 07:00 IntakeIntake Total 200 ml 240 ml 820 ml OutputOutput Total 200 ml 50 ml BalanceBalance 0 ml 190 ml 820 ml Exam right chest Permcath Constitutional: alert, oriented Neck: supple Respiratory: clear to auscultation Cardiovascular: regular rate and rhythm Gastrointestinal: soft, distended Results Results 24hrs Laboratory Tests Test 11/10/18 17:35 11/10/18 23:12 11/11/18 08:24 11/11/18 12:56 Bedside Glucose 189 174 111 212 Medications Medication Current Medications Acetaminophen (Tylenol Tab) 325 mg Q4H PRN PO MILD PAIN(1-3)OR ELEVATED TEMP Last administered on 10/18/18 09:27; Admin Dose 325 MG; Start 07/20/18 at 23:00 Allopurinol (Zyloprim) 100 mg DAILY PO Last administered on 11/11/18 09:40; Admin Dose 100 MG; Start 07/21/18 at 09:00 IV Flush (NS 3 ml) 3 ml PER PROTOCOL IV ; Start 07/20/18 at 23:00 Acetaminophen (Tylenol Supp) 650 mg Q6H PRN [place] PAIN LEVEL 1-3 OR FEVER; Start 07/20/18 at 23:00 Bisacodyl (Dulcolax) 5 mg DAILY PRN PO CONSTIPATION Last administered on 11/10/18 16:03; Admin Dose 5 MG; Start 07/20/18 at 23:00 Ergocalciferol (Drisdol) 50,000 unit Lacy@0900 PO Last administered on 11/06/18 09:13; Admin Dose 50,000 UNIT; Start 07/24/18 at 09:00 Miscellaneous Information 1 ea NOTE XX ; Start 07/20/18 at 23:00 Dextrose (D50w Syringe) 25 ml Q15M PRN IV DECREASED GLUCOSE; Start 07/20/18 at 23:00 Dextrose (D50w Syringe) 50 ml Q15M PRN IV DECREASED GLUCOSE; Start 07/20/18 at 23:00 Melatonin (Melatonin) 3 mg HS PRN PO INSOMNIA Last administered on 11/10/18 02:25; Admin Dose 3 MG; Start 07/20/18 at 23:00 Al Hydrox/Mg Hydrox/Simethicone (Mag-Al Plus) 30 ml Q4H PRN PO GASTROINTESTINAL UPSET; Start 09/10/18 at 18:00 Ondansetron HCl (Zofran Inj) 4 mg Q6H PRN IV NAUSEA AND/OR VOMITING Last administered on 11/10/18 23:58; Admin Dose 4 MG; Start 09/26/18 at 07:30 Tramadol HCl (Ultram) 100 mg Q6H PRN PO PAIN LEVEL 6-10 Last administered on 11/11/18 09:45; Admin Dose 100 MG; Start 10/09/18 at 18:30 Albumin Human 250 ml @ 250 mls/hr WITH DIALYSIS PRN IV SBP<90; Start 10/11/18 at 12:30 Sodium Chloride (NS) -To prime the dialy... DIRECTED FOR HD PRN IV SBP<90; Start 10/11/18 at 12:30 Lubiprostone (Amitiza) 24 mcg BID PO Last administered on 11/11/18 09:40; Admin Dose 24 MCG; Start 10/12/18 at 10:30 Heparin Sodium (Porcine) (Heparin (1000 Units/ml)) 4,700 unit AFTER DIALYSIS CATHETER Last administered on 11/10/18 12:29; Admin Dose 4,700 UNIT; Start 10/12/18 at 22:30 Heparin Sodium (Porcine) (Heparin (5000 Units/1ml)) 5,000 unit BID SC Last administered on 11/11/18 09:47; Admin Dose 5,000 UNIT; Start 10/15/18 at 13:30 Loperamide HCl (Imodium Cap) 2 mg QID PRN PO DIARRHEA Last administered on 10/30/18 15:45; Admin Dose 2 MG; Start 10/23/18 at 18:30 Neomycin/ Polymyxin/ Dexamethasone (Maxitrol Oph Susp) 1 drop QID RIGHT EYE Last administered on 11/11/18 13:02; Admin Dose 1 DROP; Start 10/30/18 at 17:00 Furosemide (Lasix) 40 mg DAILY PO Last administered on 11/11/18 09:40; Admin Dose 40 MG; Start 11/02/18 at 17:47 Insulin Aspart (Novolog Insulin Pen) NOVOLOG *MILD* ALGORITHM WITH MEALS BEDTIME SC Last administered on 11/11/18 13:04; Admin Dose 2 UNIT; Start 11/04/18 at 07:50 Diagnostic Test (Pha) (Accu-Chek) 1 ea 02 XX Last administered on 11/07/18 02:32; Admin Dose 1 EA; Start 11/05/18 at 02:00 Nitroglycerin (Nitroglycerin (Sl Tab) 0.4 Mg) 1 tab Q5M PRN SL ANGINA; Start 11/05/18 at 14:00 Phenol (Chloraseptic Throat [place]) 2 spray Q2H PRN [place] SORE THROAT; Start 11/05/18 at 19:00 Miscellaneous Information (* Miscellaneous Pharmacy Order) PLEASE RENEW MEDS DUE 2... Q8H XX Last administered on 11/07/18 12:30; Admin Dose 1 EA; Start 11/07/18 at 12:30 Insulin Glargine (Lantus) 15 units DAILY@2000 SC Last administered on 11/10/18 23:16; Admin Dose 15 UNITS; Start 11/08/18 at 20:00 Miscellaneous Information (* Miscellaneous Pharmacy Order) PLEASE OBTAIN A LIZ... Q8H XX ; Start 11/10/18 at 13:00 Naproxen (Naprosyn) 250 mg TID PRN PO PAIN Last administered on 11/10/18 23:06; Admin Dose 250 MG; Start 11/10/18 at 16:00 Gabapentin (Neurontin) 100 mg TID PO Last administered on 11/11/18 13:02; Admin Dose 100 MG; Start 11/10/18 at 21:00 Lactulose (Enulose) 20 gm Q6H PRN PO CONSTIPATION Last administered on 11/10/18 17:30; Admin Dose 20 GM; Start 11/10/18 at 17:30 WILLY MEDEIROS Nov 11, 2018 13:53
[2018-11-11 19:50] VITALS: BP 139/80; PULSE 78; RESP 20
[2018-11-11] MEDS: INSULIN GLARGINE [LANTus] (100 UNITS/ML) SYG SC SCH (21:06)
[2018-11-12] MEDS: ACCUCHECK AT 2AM (Patients on SS coverage) XX SCH (02:00)
[2018-11-12 02:24] VITALS: BP 110/62; PULSE 76; RESP 20
[2018-11-12 08:17] VITALS: BP 122/45; PULSE 45; RESP 15
[2018-11-12] MEDS: LUBIPROSTONE 24 MCG CAP PO SCH ×2 (08:45→20:42)
[2018-11-12] MEDS: FUROSEMIDE 40 MG TAB PO SCH (08:46)
[2018-11-12] MEDS: GABAPENTIN 100 MG CAP PO SCH ×3 (08:46→20:42)
[2018-11-12] MEDS: ALLOPURINOL 100 MG TAB PO SCH (08:46)
[2018-11-12] MEDS: HEPARIN 5,000 UNIT/1 ML VIAL SC SCH ×2 (08:48→20:46)
[2018-11-12] MEDS: INSULIN ASPART [NOVOLOG] 3 ML PEN SC SCH ×4 (08:49→20:46)
[2018-11-12] MEDS: BALSAM PERU/CASTOR OIL 60 GM TUBE TOP SCH ×2 (08:50→20:43)
[2018-11-12] MEDS: NEOMYC/POLYMYX/DEXAMETH OPH 5 ML RIGHT EYE SCH ×4 (08:50→20:43)
[2018-11-12] MEDS: traMADol 50 MG TAB PO PRN ×2 (10:48→20:42)
--- NOTE | 2018-11-12 15:31 | PN ---
Date/Time of Note Date/Time of Note DATE: 11/12/18 TIME: 15:29 Assessment/Plan VTE Prophylaxis Risk score (from Nsg)>0 risk: 4 SCD applied (from Ns): No SCD contraindicated: other Pharmacological prophylaxis: heparin Lines/Catheters IV Catheter Type (from Nrsg): Mid Line Central line still needed: Yes Urinary Cath still in place: No Assessment/Plan Hospital Course 1. ckd, hyperkalemia, resolved . Right chest permcath working 2. c diff hx 3. Opiates dependency 4. Morbid obesity. 5. Diabetes. 6. Hypertension, 7. Gout, hx 8. Neuropathy. 9. History of congestive heart failure. 10. weakness 11. deconditioning 12. Non compliance, pt refused [place], HD 13. Left shoulder chronic pain. X -ray was reviewed from the last visit, it is arthrosis left acromioclavicular joint 14. constipation 15. UTI 16. Hepatitis C 17. OA left knee, per XR severe degenerative changes of the left knee, more pronounced in the medial compartment. Assessment/Plan -c/w naproxen and c/w gabapentin 100 3 times daily -refused Hd today - Pt said does not want any av fistulas/graft in future, demanding narcotics,explained to her her limiting ability to function on narcotics as she gets extremely lethargic and sleepy on narcotics and would limit her ability to participate in therapy as pt says that she is only here for PT and minute " she is able to go from bed to commode 3 times she will be out of here" -cw Lasix -c w ultram for pain and toradol for pain with midline -She is not cooperative in getting 24-hour urine studies for determining the creatinine clearance to determine if can come off of HD - cw lantus 15 units -arrange for SNF with HD placement, pt already discharged, Spoke to , still no placement -multidisciplinary meeting pending Result Diagram: 11/12/18 1120 Results 24hrs Laboratory Tests Test 11/11/18 17:56 11/11/18 21:04 11/12/18 01:39 11/12/18 08:42 Bedside Glucose 190 231 H 156 304 H Test 11/12/18 11:20 11/12/18 13:10 Sodium Level 138 Potassium Level 5.3 H Chloride Level 104 Carbon Dioxide Level 25 Anion Gap 9 Blood Urea Nitrogen 63 H Creatinine 3.28 H Est Glomerular Filtrat 14 L Rate mL/min Glucose Level 152 Calcium Level 9.3 Bedside Glucose 178 Subjective 24 Hr Interval Summary Musculoskeletal: bone/joint pain (right shoulder) Exam/Review of Systems Exam Vitals Vital Signs Date Temp Pulse Resp B/P (MAP) Pulse Ox O2 O2 Flow FiO2 Time Delivery Rate 11/12/18 98.2 45 15 122/45 99 Room Air 08:17 (70) Intake and Output 11/11/18 11/11/18 11/12/18 1515:00 23:00 07:00 IntakeIntake Total 600 ml BalanceBalance 600 ml Exam right chest Permcath Constitutional: alert, oriented Psych: no complaints Head: normocephalic Eyes: nl conjunctiva Respiratory: clear to auscultation Cardiovascular: regular rate and rhythm Gastrointestinal: soft Results Results 24hrs Laboratory Tests Test 11/11/18 17:56 11/11/18 21:04 11/12/18 01:39 11/12/18 08:42 Bedside Glucose 190 231 H 156 304 H Test 11/12/18 11:20 11/12/18 13:10 Sodium Level 138 Potassium Level 5.3 H Chloride Level 104 Carbon Dioxide Level 25 Anion Gap 9 Blood Urea Nitrogen 63 H Creatinine 3.28 H Est Glomerular Filtrat 14 L Rate mL/min Glucose Level 152 Calcium Level 9.3 Bedside Glucose 178 Medications Medication Current Medications Acetaminophen (Tylenol Tab) 325 mg Q4H PRN PO MILD PAIN(1-3)OR ELEVATED TEMP Last administered on 10/18/18at 09:27; Admin Dose 325 MG; Start 07/20/18 at 23:00 Allopurinol (Zyloprim) 100 mg DAILY PO Last administered on 11/12/18at 08:46; Admin Dose 100 MG; Start 07/21/18 at 09:00 IV Flush (NS 3 ml) 3 ml PER PROTOCOL IV ; Start 07/20/18 at 23:00 Acetaminophen (Tylenol Supp) 650 mg Q6H PRN [place] PAIN LEVEL 1-3 OR FEVER; Start 07/20/18 at 23:00 Bisacodyl (Dulcolax) 5 mg DAILY PRN PO CONSTIPATION Last administered on 11/10/18at 16:03; Admin Dose 5 MG; Start 07/20/18 at 23:00 Ergocalciferol (Drisdol) 50,000 unit Lacy@0900 PO Last administered on 11/06/18 09:13; Admin Dose 50,000 UNIT; Start 07/24/18 at 09:00 Miscellaneous Information 1 ea NOTE XX ; Start 07/20/18 at 23:00 Dextrose (D50w Syringe) 25 ml Q15M PRN IV DECREASED GLUCOSE; Start 07/20/18 at 23:00 Dextrose (D50w Syringe) 50 ml Q15M PRN IV DECREASED GLUCOSE; Start 07/20/18 at 23:00 Melatonin (Melatonin) 3 mg HS PRN PO INSOMNIA Last administered on 11/10/18 02 :25; Admin Dose 3 MG; Start 07/20/18 at 23:00 Al Hydrox/Mg Hydrox/Simethicone (Mag-Al Plus) 30 ml Q4H PRN PO GASTROINTESTINAL UPSET; Start 09/10/18 at 18:00 Ondansetron HCl (Zofran Inj) 4 mg Q6H PRN IV NAUSEA AND/OR VOMITING Last administered on 11/10/18 23:58; Admin Dose 4 MG; Start 09/26/18 at 07:30 Tramadol HCl (Ultram) 100 mg Q6H PRN PO PAIN LEVEL 6-10 Last administered on 11/12/18 10:48; Admin Dose 100 MG; Start 10/09/18 at 18:30 Albumin Human 250 ml @ 250 mls/hr WITH DIALYSIS PRN IV SBP<90; Start 10/11/18 at 12:30 Sodium Chloride (NS) -To prime the dialy... DIRECTED FOR HD PRN IV SBP<90; Start 10/11/18 at 12:30 Lubiprostone (Amitiza) 24 mcg BID PO Last administered on 11/12/18 08:45; Admin Dose 24 MCG; Start 10/12/18 at 10:30 Heparin Sodium (Porcine) (Heparin (1000 Units/ml)) 4,700 unit AFTER DIALYSIS CATHETER Last administered on 11/10/18 12:29; Admin Dose 4,700 UNIT; Start 10/12/18 at 22:30 Heparin Sodium (Porcine) (Heparin (5000 Units/1ml)) 5,000 unit BID SC Last adm inistered on 11/12/18 08:48; Admin Dose 5,000 UNIT; Start 10/15/18 at 13:30 Loperamide HCl (Imodium Cap) 2 mg QID PRN PO DIARRHEA Last administered on 10/30/18 15:45; Admin Dose 2 MG; Start 10/23/18 at 18:30 Neomycin/ Polymyxin/ Dexamethasone (Maxitrol Oph Susp) 1 drop QID RIGHT EYE Last administered on 11/12/18 08:50; Admin Dose 1 DROP; Start 10/30/18 at 17:00 Furosemide (Lasix) 40 mg DAILY PO Last administered on 11/12/18 08:46; Admin Dose 40 MG; Start 11/02/18 at 17:47 Insulin Aspart (Novolog Insulin Pen) NOVOLOG *MILD* ALGORITHM WITH MEALS BEDTIME SC Last administered on 11/12/18 13:16; Admin Dose 1 UNIT; Start 11/04/18 at 07:50 Diagnostic Test (Pha) (Accu-Chek) 1 ea 02 XX Last administered on 11/07/18 02:32; Admin Dose 1 EA; Start 11/05/18 at 02:00 Nitroglycerin (Nitroglycerin (Sl Tab) 0.4 Mg) 1 tab Q5M PRN SL ANGINA; Start 11/05/18 at 14:00 Phenol (Chloraseptic Throat [place]) 2 spray Q2H PRN [place] SORE THROAT; Start 11/05/18 at 19:00 Miscellaneous Information (* Miscellaneous Pharmacy Order) PLEASE RENEW MEDS DUE 2... Q8H XX Last administered on 11/07/18 12:30; Admin Dose 1 EA; Start 11/07/18 at 12:30 Insulin Glargine (Lantus) 15 units DAILY@2000 SC Last administered on 11/11/18 21:06; Admin Dose 15 UNITS; Start 11/08/18 at 20:00 Miscellaneous Information (* Miscellaneous Pharmacy Order) PLEASE OBTAIN A LIZ... Q8H XX ; Start 11/10/18 at 13:00 Naproxen (Naprosyn) 250 mg TID PRN PO PAIN Last administered on 11/10/18 23:06; Admin Dose 250 MG; Start 11/10/18 at 16:00 Gabapentin (Neurontin) 100 mg TID PO Last administered on 11/12/18 13:11; Admin Dose 100 MG; Start 11/10/18 at 21:00 Lactulose (Enulose) 20 gm Q6H PRN PO CONSTIPATION Last administered on 11/10/18at 17:30; Admin Dose 20 GM; Start 11/10/18 at 17:30 WILLY MEDEIROS Nov 12, 2018 15:31
[2018-11-12 20:00] VITALS: BP 127/58; PULSE 75; RESP 18
[2018-11-12] MEDS: INSULIN GLARGINE [LANTus] (100 UNITS/ML) SYG SC SCH (20:47)
[2018-11-13] MEDS: NAPROXEN 250 MG TAB PO PRN ×2 (01:23→11:42)
[2018-11-13] MEDS: MELATONIN 3 MG TABLET PO PRN (01:23)
[2018-11-13] MEDS: ACCUCHECK AT 2AM (Patients on SS coverage) XX SCH (01:41)
[2018-11-13 01:45] VITALS: BP 127/69; PULSE 76; RESP 18
[2018-11-13] MEDS: INSULIN ASPART [NOVOLOG] 3 ML PEN SC SCH ×4 (07:50→21:00)
[2018-11-13] MEDS: BALSAM PERU/CASTOR OIL 60 GM TUBE TOP SCH ×3 (09:00→21:00)
[2018-11-13] MEDS: ERGOCALCIFEROL 50,000 UNIT CAP PO SCH ×2 (09:00→11:52)
[2018-11-13] MEDS: ALLOPURINOL 100 MG TAB PO SCH ×2 (09:00→11:53)
[2018-11-13] MEDS: NEOMYC/POLYMYX/DEXAMETH OPH 5 ML RIGHT EYE SCH ×5 (09:00→23:28)
[2018-11-13] MEDS: LUBIPROSTONE 24 MCG CAP PO SCH ×4 (09:00→23:27)
[2018-11-13] MEDS: HEPARIN 5,000 UNIT/1 ML VIAL SC SCH ×4 (09:00→23:30)
[2018-11-13] MEDS: FUROSEMIDE 40 MG TAB PO SCH ×2 (09:00→11:53)
[2018-11-13] MEDS: GABAPENTIN 100 MG CAP PO SCH ×3 (09:00→19:37)
--- NOTE | 2018-11-13 11:31 | PN ---
Date/Time of Note Date/Time of Note DATE: 11/13/18 TIME: 11:31 Assessment/Plan VTE Prophylaxis Risk score (from Nsg)>0 risk: 6 SCD applied (from Ns): No SCD contraindicated: other Pharmacological prophylaxis: heparin Lines/Catheters IV Catheter Type (from Nrsg): Mid Line Urinary Cath still in place: No Assessment/Plan Hospital Course 1. ckd, hyperkalemia, resolved . Right chest permcath working 2. c diff hx 3. Opiates dependency 4. Morbid obesity. 5. Diabetes. 6. Hypertension, 7. Gout, hx 8. Neuropathy. 9. History of congestive heart failure. 10. weakness 11. deconditioning 12. Non compliance, pt refused [place], HD 13. Left shoulder chronic pain. X -ray was reviewed from the last visit, it is arthrosis left acromioclavicular joint 14. constipation 15. UTI 16. Hepatitis C 17. OA left knee, per XR severe degenerative changes of the left knee, more pronounced in the medial compartment. Assessment/Plan -c/w naproxen and c/w gabapentin 100 3 times daily - Pt said does not want any av fistulas/graft in future, demanding narcotics,explained to her her limiting ability to function on narcotics as she gets extremely lethargic and sleepy on narcotics and would limit her ability to participate in therapy as pt says that she is only here for PT and minute " she is able to go from bed to commode 3 times she will be out of here" -cw Lasix -c w ultram for pain and toradol for pain with midline -She is not cooperative in getting 24-hour urine studies for determining the creatinine clearance to determine if can come off of HD - cw lantus 15 units -arrange for SNF with HD placement, pt already discharged, Spoke to , still no placement -multidisciplinary meeting pending Result Diagram: 11/12/18 1120 Results 24hrs Laboratory Tests Test 11/12/18 13:10 11/12/18 17:47 11/12/18 20:45 11/13/18 01:20 Bedside Glucose 178 222 H 205 180 Exam/Review of Systems Exam Vitals Vital Signs Date Temp Pulse Resp B/P (MAP) Pulse Ox O2 O2 Flow FiO2 Time Delivery Rate 11/13/18 97.8 76 18 127/69 96 01:45 (88) 11/12/18 Room Air 08:17 Intake and Output 11/12/18 11/12/18 11/13/18 1515:00 23:00 07:00 IntakeIntake Total 500 ml BalanceBalance 500 ml Exam right side Permcath Results Results 24hrs Laboratory Tests Test 11/12/18 13:10 11/12/18 17:47 11/12/18 20:45 11/13/18 01:20 Bedside Glucose 178 222 H 205 180 Medications Medication Current Medications Acetaminophen (Tylenol Tab) 325 mg Q4H PRN PO MILD PAIN(1-3)OR ELEVATED TEMP Last administered on 10/18/18 09:27; Admin Dose 325 MG; Start 07/20/18 at 23:00 Allopurinol (Zyloprim) 100 mg DAILY PO Last administered on 11/12/18 08:46; Admin Dose 100 MG; Start 07/21/18 at 09:00 IV Flush (NS 3 ml) 3 ml PER PROTOCOL IV ; Start 07/20/18 at 23:00 Acetaminophen (Tylenol Supp) 650 mg Q6H PRN [place] PAIN LEVEL 1-3 OR FEVER; Start 07/20/18 at 23:00 Bisacodyl (Dulcolax) 5 mg DAILY PRN PO CONSTIPATION Last administered on 11/10/18 16:03; Admin Dose 5 MG; Start 07/20/18 at 23:00 Ergocalciferol (Drisdol) 50,000 unit Lacy@0900 PO Last administered on 11/06/18 09:13; Admin Dose 50,000 UNIT; Start 07/24/18 at 09:00 Miscellaneous Information 1 ea NOTE XX ; Start 07/20/18 at 23:00 Dextrose (D50w Syringe) 25 ml Q15M PRN IV DECREASED GLUCOSE; Start 07/20/18 at 23:00 Dextrose (D50w Syringe) 50 ml Q15M PRN IV DECREASED GLUCOSE; Start 07/20/18 at 23:00 Melatonin (Melatonin) 3 mg HS PRN PO INSOMNIA Last administered on 11/13/18 01:23; Admin Dose 3 MG; Start 07/20/18 at 23:00 Al Hydrox/Mg Hydrox/Simethicone (Mag-Al Plus) 30 ml Q4H PRN PO GASTROINTESTINAL UPSET; Start 09/10/18 at 18:00 Ondansetron HCl (Zofran Inj) 4 mg Q6H PRN IV NAUSEA AND/OR VOMITING Last administered on 11/10/18 23:58; Admin Dose 4 MG; Start 09/26/18 at 07:30 Tramadol HCl (Ultram) 100 mg Q6H PRN PO PAIN LEVEL 6-10 Last administered on 11/12/18 20:42; Admin Dose 100 MG; Start 10/09/18 at 18:30 Albumin Human 250 ml @ 250 mls/hr WITH DIALYSIS PRN IV SBP<90; Start 10/11/18 at 12:30 Sodium Chloride (NS) -To prime the dialy... DIRECTED FOR HD PRN IV SBP<90; Start 10/11/18 at 12:30 Lubiprostone (Amitiza) 24 mcg BID PO Last administered on 11/12/18 20:42; Admin Dose 24 MCG; Start 10/12/18 at 10:30 Heparin Sodium (Porcine) (Heparin (1000 Units/ml)) 4,700 unit AFTER DIALYSIS CATHETER Last administered on 11/10/18 12:29; Admin Dose 4,700 UNIT; Start 10/12/18 at 22:30 Heparin Sodium (Porcine) (Heparin (5000 Units/1ml)) 5,000 unit BID SC Last administered on 11/12/18 20:46; Admin Dose 5,000 UNIT; Start 10/15/18 at 13:30 Loperamide HCl (Imodium Cap) 2 mg QID PRN PO DIARRHEA Last administered on 10/30/18 15:45; Admin Dose 2 MG; Start 10/23/18 at 18:30 Neomycin/ Polymyxin/ Dexamethasone (Maxitrol Oph Susp) 1 drop QID RIGHT EYE Last administered on 11/12/18 20:43; Admin Dose 1 DROP; Start 10/30/18 at 17:00 Furosemide (Lasix) 40 mg DAILY PO Last administered on 11/12/18 08:46; Admin Dose 40 MG; Start 11/02/18 at 17:47 Insulin Aspart (Novolog Insulin Pen) NOVOLOG *MILD* ALGORITHM WITH MEALS BEDTIME SC Last administered on 11/12/18 20:46; Admin Dose 1 UNIT; Start 11/04/18 at 07:50 Diagnostic Test (Pha) (Accu-Chek) 1 02 XX Last administered on 11/13/18 01:41; Admin Dose 1 EA; Start 11/05/18 at 02:00 Nitroglycerin (Nitroglycerin (Sl Tab) 0.4 Mg) 1 tab Q5M PRN SL ANGINA; Start 11/05/18 at 14:00 Phenol (Chloraseptic Throat [place]) 2 spray Q2H PRN [place] SORE THROAT; Start 11/05/18 at 19:00 Miscellaneous Information (* Miscellaneous Pharmacy Order) PLEASE RENEW MEDS DUE 2... Q8H XX Last administered on 11/07/18 12:30; Admin Dose 1 EA; Start 11/07/18 at 12:30 Insulin Glargine (Lantus) 15 units DAILY@2000 SC Last administered on 11/12/18 20:47; Admin Dose 15 UNITS; Start 11/08/18 at 20:00 Miscellaneous Information (* Miscellaneous Pharmacy Order) PLEASE OBTAIN A LIZ... Q8H XX ; Start 11/10/18 at 13:00 Naproxen (Naprosyn) 250 mg TID PRN PO PAIN Last administered on 11/13/18 01:23; Admin Dose 250 MG; Start 11/10/18 at 16:00 Gabapentin (Neurontin) 100 mg TID PO Last administered on 11/12/18 20:42; Admin Dose 100 MG; Start 11/10/18 at 21:00 Lactulose (Enulose) 20 gm Q6H PRN PO CONSTIPATION Last administered on 11/10/18 17:30; Admin Dose 20 GM; Start 11/10/18 at 17:30 WILLY MEDEIROS Nov 13, 2018 11:31
[2018-11-13] MEDS: traMADol 50 MG TAB PO PRN ×2 (11:42→19:38)
[2018-11-13 11:44] VITALS: BP 120/69; PULSE 67; RESP 16
[2018-11-13 14:53] VITALS: BP 131/70; PULSE 72; RESP 17
[2018-11-13] MEDS: INSULIN GLARGINE [LANTus] (100 UNITS/ML) SYG SC SCH ×2 (20:00→23:29)
[2018-11-13 20:36] VITALS: BP 104/51; PULSE 83; RESP 18
[2018-11-13] MEDS: BISACODYL (EC) 5 MG TAB PO PRN (23:31)
[2018-11-14] MEDS: MELATONIN 3 MG TABLET PO PRN (01:48)
[2018-11-14] MEDS: traMADol 50 MG TAB PO PRN ×3 (01:49→16:08)
[2018-11-14] MEDS: ACCUCHECK AT 2AM (Patients on SS coverage) XX SCH (02:00)
[2018-11-14 02:32] VITALS: BP 112/65; PULSE 75; RESP 20
[2018-11-14] MEDS: INSULIN ASPART [NOVOLOG] 3 ML PEN SC SCH ×4 (07:50→21:00)
[2018-11-14] MEDS: LUBIPROSTONE 24 MCG CAP PO SCH ×2 (08:14→21:01)
[2018-11-14] MEDS: ALLOPURINOL 100 MG TAB PO SCH (08:15)
[2018-11-14] MEDS: GABAPENTIN 100 MG CAP PO SCH ×3 (08:15→21:01)
[2018-11-14] MEDS: BALSAM PERU/CASTOR OIL 60 GM TUBE TOP SCH ×2 (08:16→21:02)
[2018-11-14] MEDS: FUROSEMIDE 40 MG TAB PO SCH (08:16)
[2018-11-14] MEDS: HEPARIN 5,000 UNIT/1 ML VIAL SC SCH ×2 (08:21→21:00)
[2018-11-14] MEDS: BISACODYL (EC) 5 MG TAB PO PRN (08:29)
[2018-11-14 08:35] VITALS: BP 126/61; PULSE 82; RESP 18
[2018-11-14] MEDS: NEOMYC/POLYMYX/DEXAMETH OPH 5 ML RIGHT EYE SCH ×4 (09:59→21:01)
[2018-11-14 13:31] VITALS: BP 131/61; PULSE 76; RESP 18
--- NOTE | 2018-11-14 16:35 | PN ---
Date/Time of Note Date/Time of Note DATE: 11/14/18 TIME: 16:31 Assessment/Plan VTE Prophylaxis Risk score (from Nsg)>0 risk: 7 SCD applied (from Nsg): No SCD contraindicated: low risk/ambulating Pharmacological prophylaxis: NA/contraindicated Pharm contraindication: low risk/ambulating Lines/Catheters IV Catheter Type (from Nrsg): Mid Line Urinary Cath still in place: No Assessment/Plan Hospital Course 58 y/o with 1. . ckd iii-iv > CKD Vnow with the complications of hyperkalemia/volume overload, patient has been refusing Kayexalate [place] has also been refusing dialysis, patient was explained the risks and consequences and patient completely understands the risks and consequences, now on esrd Hd s/p new permacath placement due to malfunctioning permacath 2. hx c diff hx 3. Chronic kidney disease, 4. Morbid obesity. 5. Diabetes. 6. Hypertension, 7. Gout.hx 8. Neuropathy. 9. History of congestive heart failure. 10 weakness 11 deconditioning 13 Left shoulde pain, TTP ? Frozen shoulder , shoulder impingement 14 s/p Fall ? AMS confusion likley due to UTI 15 uti klebsiella and enterococcus 16 diarrhea 15 vomtiing/? contipation> refuse labs again 16 Dizziness> chronic ? Postural 17 UTI 18 rectal pain with fissure 19 malfunctioning permacath s/p new permacath on 11/03/18 20 hyperkalemia Plan -Patient needs dialysis for hyperkalemia however patient had been refusing it as she said that she has not been giving getting her diet -Explained to her that as per the dietitian they had also recommended [id number] kcal diet and she needs to be on the restrictions due to her end-stage renal disease and her diabetes -She has been verbally abusive and is threatening to take out the permacath, however was explained that she needs to be on this diet for her own benefit - cw naproxen /gabapentin - Pt said does not want any av fistulas/graft in future, demanding narcotic s,explained to her her limiting ability to function on narcotics as she gets extremely lethargic and sleepy on narcotics and would limit her ability to participate in therapy as pt says that she is only here for PT and minute " she is able to go from bed to commode 3 times she will be out of here" - Pt is threatening me that she will take out permcath if restriction are not remove don diet> spoke to patient and told her that it is for her benefit as k, phos and sugars are high so cannot remove restriction> spoke to manager ship max we can do acc to her weight is increase calories from 1800>2000 elvira diet with same restrictions -cw With Lasix -c w ultram for pain and toradol for pain with midline - cw gabapentin renally dosed -She is not cooperative in getting 24-hour urine studies for determining the creatinine clearance to determine if can come off of HD - cw lantus 15 units -Continue with heparin Spoke to the case management director also spoke to the licensed master social worker arrange for SNIF with HD placement,pt already discharged, Spoke to CM , still no placement multidisciplinary meeting Result Diagram: 11/13/18 1548 11/13/18 1548 Results 24hrs Laboratory Tests Test 11/13/18 17:55 11/13/18 23:23 11/14/18 08:19 11/14/18 12:47 Bedside Glucose 192 175 98 133 Subjective 24 Hr Interval Summary Free Text/Dictation Patient has been verbally abusive. She is threatening to take out the permacath if we do not change her diet Explained to her that had spoken to dietitian and they had recommended this much calorie diet and she needs to be on restriction because of her dialysis and diabetes Exam/Review of Systems Exam Vitals Vital Signs Date Temp Pulse Resp B/P (MAP) Pulse Ox O2 O2 Flow FiO2 Time Delivery Rate 11/14/18 98.3 76 18 131/61 97 13:31 (84) 11/13/18 Room Air 14:53 Intake and Output 11/13/18 11/13/18 11/14/18 1515:00 23:00 07:00 IntakeIntake Total 300 ml 50 ml BalanceBalance 300 ml 50 ml Exam MorbidlY obese respiratory: clear to auscultation Cardiovascular: regular rate and rhythm Gastrointestinal: soft Musculoskeletal: range of motion (pain+) Extremities: No edema tender to touch everywhere fibromyalgia? rt permcath Results Results 24hrs Laboratory Tests Test 11/13/18 17:55 11/13/18 23:23 11/14/18 08:19 11/14/18 12:47 Bedside Glucose 192 175 98 133 Medications Medication Current Medications Acetaminophen (Tylenol Tab) 325 mg Q4H PRN PO MILD PAIN(1-3)OR ELEVATED TEMP Last administered on 10/18/18 09:27; Admin Dose 325 MG; Start 07/20/18 at 23:00 Allopurinol (Zyloprim) 100 mg DAILY PO Last administered on 11/14/18 08:15; Admin Dose 100 MG; Start 07/21/18 at 09:00 IV Flush (NS 3 ml) 3 ml PER PROTOCOL IV ; Start 07/20/18 at 23:00 Acetaminophen (Tylenol Supp) 650 mg Q6H PRN [place] PAIN LEVEL 1-3 OR FEVER; Start 07/20/18 at 23:00 Bisacodyl (Dulcolax) 5 mg DAILY PRN PO CONSTIPATION Last administered on 08:29; Admin Dose 5 MG; Start 07/20/18 at 23:00 Ergocalciferol (Drisdol) 50,000 unit Lacy@0900 PO Last administered on 11/13/18 11:52; Admin Dose 50,000 UNIT; Start 07/24/18 at 09:00 Miscellaneous Information 1 ea NOTE XX ; Start 07/20/18 at 23:00 Dextrose (D50w Syringe) 25 ml Q15M PRN IV DECREASED GLUCOSE; Start 07/20/18 at 23:00 Dextrose (D50w Syringe) 50 ml Q15M PRN IV DECREASED GLUCOSE; Start 07/20/18 at 23:00 Melatonin (Melatonin) 3 mg HS PRN PO INSOMNIA Last administered on 11/14/18 01:48; Admin Dose 3 MG; Start 07/20/18 at 23:00 Al Hydrox/Mg Hydrox/Simethicone (Mag-Al Plus) 30 ml Q4H PRN PO GASTROINTESTINAL UPSET; Start 09/10/18 at 18:00 Ondansetron HCl (Zofran Inj) 4 mg Q6H PRN IV NAUSEA AND/OR VOMITING Last administered on 11/10/18 23:58; Admin Dose 4 MG; Start 09/26/18 at 07:30 Tramadol HCl (Ultram) 100 mg Q6H PRN PO PAIN LEVEL 6-10 Last administered on 16:08; Admin Dose 100 MG; Start 10/09/18 at 18:30 Albumin Human 250 ml @ 250 mls/hr WITH DIALYSIS PRN IV SBP<90; Start 10/11/18 at 12:30 Sodium Chloride (NS) -To prime the dialy... DIRECTED FOR HD PRN IV SBP<90; Start 10/11/18 at 12:30 Lubiprostone (Amitiza) 24 mcg BID PO Last administered on 11/14/18 08:14; Admin Dose 24 MCG; Start 10/12/18 at 10:30 Heparin Sodium (Porcine) (Heparin (1000 Units/ml)) 4,700 unit AFTER DIALYSIS CATHETER Last administered on 11/10/18 12:29; Admin Dose 4,700 UNIT; Start 10/12/18 at 22:30 Heparin Sodium (Porcine) (Heparin (5000 Units/1ml)) 5,000 unit BID SC Last administered on 11/14/18 08:21; Admin Dose 5,000 UNIT; Start 10/15/18 at 13:30 Loperamide HCl (Imodium Cap) 2 mg QID PRN PO DIARRHEA Last administered on 10/30/18at 15:45; Admin Dose 2 MG; Start 10/23/18 at 18:30 Neomycin/ Polymyxin/ Dexamethasone (Maxitrol Oph Susp) 1 drop QID RIGHT EYE Last administered on 11/14/18 12:49; Admin Dose 1 DROP; Start 10/30/18 at 17:00 Furosemide (Lasix) 40 mg DAILY PO Last administered on 11/14/18 08:16; Admin Dose 40 MG; Start 11/02/18 at 17:47 Insulin Aspart (Novolog Insulin Pen) NOVOLOG *MILD* ALGORITHM WITH MEALS BEDTIME SC Last administered on 11/13/18at 17:58; Admin Dose 2 UNIT; Start 11/04/18 at 07:50 Diagnostic Test (Pha) (Accu-Chek) 1 ea 02 XX Last administered on 11/13/18at 01:41; Admin Dose 1 EA; Start 11/05/18 at 02:00 Nitroglycerin (Nitroglycerin (Sl Tab) 0.4 Mg) 1 tab Q5M PRN SL ANGINA; Start 11/05/18 at 14:00 Phenol (Chloraseptic Throat [place]) 2 spray Q2H PRN [place] SORE THROAT; Start 11/05/18 at 19:00 Insulin Glargine (Lantus) 15 units DAILY@2000 SC Last administered on 11/13/18 23:29; Admin Dose 15 UNITS; Start 11/08/18 at 20:00 Naproxen (Naprosyn) 250 mg TID PRN PO PAIN Last administered on 11/13/18 11:42; Admin Dose 250 MG; Start 11/10/18 at 16:00 Gabapentin (Neurontin) 100 mg TID PO Last administered on 11/14/18 12:49; Admin Dose 100 MG; Start 11/10/18 at 21:00 Lactulose (Enulose) 20 gm Q6H PRN PO CONSTIPATION Last administered on 11/10/18 17:30; Admin Dose 20 GM; Start 11/10/18 at 17:30 KOFI SWANN MD Nov 14, 2018 16:35
[2018-11-14] MEDS ORDERED: HEPARIN 1000 UNITS/ML 10 ML INJ CATHETER SCH (17:00)
[2018-11-14 20:14] VITALS: BP 125/63; PULSE 73; RESP 16
[2018-11-14] MEDS: INSULIN GLARGINE [LANTus] (100 UNITS/ML) SYG SC SCH (21:00)
[2018-11-15 01:20] VITALS: BP 108/66; PULSE 76; RESP 16
[2018-11-15] MEDS: traMADol 50 MG TAB PO PRN ×3 (01:29→22:30)
[2018-11-15] MEDS: ACCUCHECK AT 2AM (Patients on SS coverage) XX SCH (02:00)
[2018-11-15] MEDS: INSULIN ASPART [NOVOLOG] 3 ML PEN SC SCH ×4 (07:50→22:36)
[2018-11-15] MEDS: GABAPENTIN 100 MG CAP PO SCH ×3 (08:45→22:29)
[2018-11-15] MEDS: ALLOPURINOL 100 MG TAB PO SCH (08:45)
[2018-11-15] MEDS: LUBIPROSTONE 24 MCG CAP PO SCH ×2 (08:45→22:29)
[2018-11-15] MEDS: FUROSEMIDE 40 MG TAB PO SCH (08:46)
[2018-11-15] MEDS: BALSAM PERU/CASTOR OIL 60 GM TUBE TOP SCH ×2 (08:47→21:00)
[2018-11-15] MEDS: NEOMYC/POLYMYX/DEXAMETH OPH 5 ML RIGHT EYE SCH ×4 (08:47→21:00)
[2018-11-15] MEDS: HEPARIN 5,000 UNIT/1 ML VIAL SC SCH ×2 (08:49→22:37)
[2018-11-15] MEDS: BISACODYL (EC) 5 MG TAB PO PRN ×2 (11:12→22:44)
--- NOTE | 2018-11-15 12:14 | PN ---
Date/Time of Note Date/Time of Note DATE: 11/15/18 TIME: 11:55 Assessment/Plan VTE Prophylaxis Risk score (from Nsg)>0 risk: 6 SCD applied (from Ns): No SCD contraindicated: low risk/ambulating Pharmacological prophylaxis: NA/contraindicated, heparin Pharm contraindication: low risk/ambulating Lines/Catheters IV Catheter Type (from Nrsg): Mid Line Urinary Cath still in place: No Assessment/Plan Hospital Course 58 y/o with 1. . 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 hx c diff hx 3. Chronic kidney disease, 4. Morbid obesity. 5. Diabetes. 6. Hypertension, 7. Gout.hx 8. Neuropathy. 9. History of congestive heart failure. 10 weakness 11 deconditioning 13 Left shoulde pain, TTP ? Frozen shoulder , shoulder impingement 14 s/p Fall ? AMS confusion likley due to UTI 15 uti klebsiella and enterococcus 16 diarrhea 15 vomtiing/? contipation> refuse labs again 16 Dizziness> chronic ? Postural 17 UTI 18 rectal pain with fissure 19 malfunctioning permacath s/p new permacath on 11/03/18 20 hyperkalemia Plan -Patient needs dialysis for hyperkalemia however patient had been refusing it as she said that she has not been giving getting her diet , she says allergic to keyexlate and does not want to take any k Lowering med -Explained to her that as per the dietitian they had also recommended [id number] kcal diet and she needs to be on the renal/ diabetic restrictions due to her end-stage renal disease and her diabetes -She has been verbally abusive and is threatening to take out the permacath, - cw naproxen /gabapentin - Pt said does not want any av fistulas/graft in future, demanding narcotics,explained to her her limiting ability to function on narcotics as she gets extremely lethargic and sleepy on narcotics and would limit her ability to participate in therapy as pt says that she is only here for PT and minute " she is able to go from bed to commode 3 times she will be out of here" - Pt is threatening me that she will take out permcath if restriction are not remove don diet> spoke to patient and told her that it is for her benefit as k, phos and sugars are high so cannot remove restriction> spoke to cream gatherer max we can do acc to her weight is increase calories from 1800>2000 elvira diet with same restrictions -cw With Lasix -c w ultram for pain and toradol for pain with midline - cw gabapentin renally dosed -She is not cooperative in getting 24-hour urine studies for determining the creatinine clearance to determine if can come off of HD - cw lantus 15 units -Continue with heparin Pt is not satisfied with care and is requesting to change doctors in front of nursing staff and requesting us to " get out of room" . She is very non compliant with medical treatment and refuses meds and services offered by physicians and other services which has been documented Since pt is refusing our team Dr Lockhart and Dr Nuñez , for pts safety and for further addressal of her medical treatment , case management assistant will have to find new PMD Spoke to senior licensing manager Gali who will talk to [facility] insurance and will address this issue GAIL. Result Diagram: 11/13/18 1548 11/15/18 1032 Results 24hrs Laboratory Tests Test 11/14/18 12:47 11/14/18 16:03 11/14/18 17:53 11/14/18 20:58 Bedside Glucose 133 193 146 Sodium Level 139 Potassium Level 5.3 H Chloride Level 105 Carbon Dioxide Level 29 Anion Gap 5 Blood Urea Nitrogen 61 H Creatinine 3.28 H Est Glomerular 14 L Filtrat Rate mL/min Glucose Level 158 Calcium Level 8.9 Test 11/15/18 08:43 11/15/18 10:32 Bedside Glucose 84 Sodium Level 138 Potassium Level 5.5 H Chloride Level 101 Carbon Dioxide Level 28 Anion Gap 9 Blood Urea Nitrogen 61 H Creatinine 3.30 H Est Glomerular 14 L Filtrat Rate mL/min Glucose Level 173 Calcium Level 8.9 Subjective 24 Hr Interval Summary Free Text/Dictation Went to see pt at bedside, pt is very angry about her diet and her care she said she will complains Putting on acccustions on me which are not event true, RN present at bedside Exam/Review of Systems Exam Vitals Vital Signs Date Temp Pulse Resp B/P (MAP) Pulse Ox O2 O2 Flow FiO2 Time Delivery Rate 11/15/18 98.1 76 16 108/66 94 Room Air 01:20 (80) Intake and Output 11/14/18 11/14/18 11/15/18 1515:00 23:00 07:00 IntakeIntake Total 250 ml 400 ml BalanceBalance 250 ml 400 ml Exam MorbidlY obese Gastrointestinal: soft Musculoskeletal: range of motion (pain+) Extremities: No edema tender to touch everywhere fibromyalgia? rt permcath Results Results 24hrs Laboratory Tests Test 11/14/18 12:47 11/14/18 16:03 11/14/18 17:53 11/14/18 20:58 Bedside Glucose 133 193 146 Sodium Level 139 Potassium Level 5.3 H Chloride Level 105 Carbon Dioxide Level 29 Anion Gap 5 Blood Urea Nitrogen 61 H Creatinine 3.28 H Est Glomerular 14 L Filtrat Rate mL/min Glucose Level 158 Calcium Level 8.9 Test 11/15/18 08:43 11/15/18 10:32 Bedside Glucose 84 Sodium Level 138 Potassium Level 5.5 H Chloride Level 101 Carbon Dioxide Level 28 Anion Gap 9 Blood Urea Nitrogen 61 H Creatinine 3.30 H Est Glomerular 14 L Filtrat Rate mL/min Glucose Level 173 Calcium Level 8.9 Medications Medication Current Medications Acetaminophen (Tylenol Tab) 325 mg Q4H PRN PO MILD PAIN(1-3)OR ELEVATED TEMP Last administered on 10/18/18 09:27; Admin Dose 325 MG; Start 07/20/18 at 23:00 Allopurinol (Zyloprim) 100 mg DAILY PO Last administered on 11/15/18 08:45; Admin Dose 100 MG; Start 07/21/18 at 09:00 IV Flush (NS 3 ml) 3 ml PER PROTOCOL IV ; Start 07/20/18 at 23:00 Acetaminophen (Tylenol Supp) 650 mg Q6H PRN [place] PAIN LEVEL 1-3 OR FEVER; Start 07/20/18 at 23:00 Bisacodyl (Dulcolax) 5 mg DAILY PRN PO CONSTIPATION Last administered on 11/15/18 11:12; Admin Dose 5 MG; Start 07/20/18 at 23:00 Ergocalciferol (Drisdol) 50,000 unit Lacy@0900 PO Last administered on 11/13/18 11:52; Admin Dose 50,000 UNIT; Start 07/24/18 at 09:00 Miscellaneous Information 1 ea NOTE XX ; Start 07/20/18 at 23:00 Dextrose (D50w Syringe) 25 ml Q15M PRN IV DECREASED GLUCOSE; Start 07/20/18 at 23:00 Dextrose (D50w Syringe) 50 ml Q15M PRN IV DECREASED GLUCOSE; Start 07/20/18 at 23:00 Melatonin (Melatonin) 3 mg HS PRN PO INSOMNIA Last administered on 11/14/18 01 :48; Admin Dose 3 MG; Start 07/20/18 at 23:00 Al Hydrox/Mg Hydrox/Simethicone (Mag-Al Plus) 30 ml Q4H PRN PO GASTROINTESTINAL UPSET; Start 09/10/18 at 18:00 Ondansetron HCl (Zofran Inj) 4 mg Q6H PRN IV NAUSEA AND/OR VOMITING Last administered on 11/10/18 23:58; Admin Dose 4 MG; Start 09/26/18 at 07:30 Tramadol HCl (Ultram) 100 mg Q6H PRN PO PAIN LEVEL 6-10 Last administered on 11/15/18 07:36; Admin Dose 100 MG; Start 10/09/18 at 18:30 Albumin Human 250 ml @ 250 mls/hr WITH DIALYSIS PRN IV SBP<90; Start 10/11/18 at 12:30 Sodium Chloride (NS) -To prime the dialy... DIRECTED FOR HD PRN IV SBP<90; Start 10/11/18 at 12:30 Lubiprostone (Amitiza) 24 mcg BID PO Last administered on 11/15/18 08:45; Admin Dose 24 MCG; Start 10/12/18 at 10:30 Heparin Sodium (Porcine) (Heparin (5000 Units/1ml)) 5,000 unit BID SC Last administered on 11/15/18 08:49; Admin Dose 5,000 UNIT; Start 10/15/18 at 13:30 Loperamide HCl (Imodium Cap) 2 mg QID PRN PO DIARRHEA Last administered on 10/30/18 15:45; Admin Dose 2 MG; Start 10/23/18 at 18:30 Neomycin/ Polymyxin/ Dexamethasone (Maxitrol Oph Susp) 1 drop QID RIGHT EYE Last administered on 11/15/18 08:47; Admin Dose 1 DROP; Start 10/30/18 at 17:00 Furosemide (Lasix) 40 mg DAILY PO Last administered on 11/15/18 08:46; Admin Dose 40 MG; Start 11/02/18 at 17:47 Insulin Aspart (Novolog Insulin Pen) NOVOLOG *MILD* ALGORITHM WITH MEALS BEDTIME SC Last administered on 11/14/18 18:18; Admin Dose 2 UNIT; Start 11/04/18 at 07:50 Diagnostic Test (Pha) (Accu-Chek) 1 ea 02 XX Last administered on 11/13/18 01:41; Admin Dose 1 EA; Start 11/05/18 at 02:00 Nitroglycerin (Nitroglycerin (Sl Tab) 0.4 Mg) 1 tab Q5M PRN SL ANGINA; Start 11/05/18 at 14:00 Phenol (Chloraseptic Throat [place]) 2 spray Q2H PRN MT SORE THROAT; Start 11/05/18 at 19:00 Insulin Glargine (Lantus) 15 units DAILY@2000 SC Last administered on 11/14/18 21:00; Admin Dose 15 UNITS; Start 11/08/18 at 20:00 Naproxen (Naprosyn) 250 mg TID PRN PO PAIN Last administered on 11/13/18 11 :42; Admin Dose 250 MG; Start 11/10/18 at 16:00 Gabapentin (Neurontin) 100 mg TID PO Last administered on 11/15/18 08:45; Admin Dose 100 MG; Start 11/10/18 at 21:00 Lactulose (Enulose) 20 gm Q6H PRN PO CONSTIPATION Last administered on 11/10/18 17:30; Admin Dose 20 GM; Start 11/10/18 at 17:30 Heparin Sodium (Porcine) (Heparin (1000 Units/ml)) 4,000 unit AFTER DIALYSIS CATHETER ; Start 11/14/18 at 17:00 KOFI LOCKHART MD Nov 15, 2018 12:13
[2018-11-15 20:15] VITALS: BP 135/66; PULSE 92; RESP 18
[2018-11-15] MEDS: MELATONIN 3 MG TABLET PO PRN (22:29)
[2018-11-15] MEDS: INSULIN GLARGINE [LANTus] (100 UNITS/ML) SYG SC SCH (22:37)
[2018-11-16] MEDS: ACCUCHECK AT 2AM (Patients on SS coverage) XX SCH (02:00)
[2018-11-16] MEDS: traMADol 50 MG TAB PO PRN ×3 (04:28→20:42)
[2018-11-16 06:30] VITALS: BP 126/60; PULSE 77; RESP 18
[2018-11-16] MEDS: INSULIN ASPART [NOVOLOG] 3 ML PEN SC SCH ×4 (07:50→20:47)
[2018-11-16] MEDS: BALSAM PERU/CASTOR OIL 60 GM TUBE TOP SCH ×2 (09:00→20:55)
[2018-11-16] MEDS: GABAPENTIN 100 MG CAP PO SCH ×4 (09:21→20:42)
[2018-11-16] MEDS: ALLOPURINOL 100 MG TAB PO SCH (09:21)
[2018-11-16] MEDS: LUBIPROSTONE 24 MCG CAP PO SCH ×2 (09:21→20:42)
[2018-11-16] MEDS: FUROSEMIDE 40 MG TAB PO SCH (09:22)
[2018-11-16] MEDS: NEOMYC/POLYMYX/DEXAMETH OPH 5 ML RIGHT EYE SCH ×6 (09:22→21:44)
[2018-11-16] MEDS: HEPARIN 5,000 UNIT/1 ML VIAL SC SCH ×2 (09:25→20:53)
--- NOTE | 2018-11-16 12:00 | PN ---
Date/Time of Note Date/Time of Note DATE: 11/16/18 TIME: 11:58 Assessment/Plan VTE Prophylaxis Risk score (from Nsg)>0 risk: 6 SCD applied (from Nsg): No SCD contraindicated: low risk/ambulating Pharmacological prophylaxis: NA/contraindicated Pharm contraindication: low risk/ambulating Lines/Catheters IV Catheter Type (from Nrsg): Mid Line Urinary Cath still in place: No Assessment/Plan Hospital Course 58 y/o with 1. . 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 hx c diff hx 3. Chronic kidney disease, 4. Morbid obesity. 5. Diabetes. 6. Hypertension, 7. Gout.hx 8. Neuropathy. 9. History of congestive heart failure. 10 weakness 11 deconditioning 13 Left shoulde pain, TTP ? Frozen shoulder , shoulder impingement 14 s/p Fall ? AMS confusion likley due to UTI 15 uti klebsiella and enterococcus 16 diarrhea 15 vomtiing/? contipation> refuse labs again 16 Dizziness> chronic ? Postural 17 UTI 18 rectal pain with fissure 19 malfunctioning permacath s/p new permacath on 11/03/18 20 hyperkalemia 21 Generalised pain Plan - CK levels - increase gabapentin - ultram/ Toradol -Patient needs dialysis for hyperkalemia however patient had been refusing it as she said that she has not been giving getting her diet , she says allergic to keyexlate and does not want to take any k Lowering med -Explained to her that as per the dietitian they had also recommended [id number] kcal diet and she needs to be on the renal/ diabetic restrictions due to her end-stage renal disease and her diabetes - cw naproxen /gabapentin - Pt said does not want any av fistulas/graft in future, demanding narcotics,explained to her her limiting ability to function on narcotics as she gets extremely lethargic and sleepy on narcotics and would limit her ability to participate in therapy as pt says that she is only here for PT and minute " she is able to go from bed to commode 3 times she will be out of here" - Pt is threatening me that she will take out permcath if restriction are not remove don diet> spoke to patient and told her that it is for her benefit as k, phos and sugars are high so cannot remove restriction> spoke to fine dining server max we can do acc to her weight is increase calories from 1800>2000 elvira diet with same restrictions -cw With Lasix -c w ultram for pain and toradol for pain with midline -She is not cooperative in getting 24-hour urine studies for determining the cr eatinine clearance to determine if can come off of HD - cw lantus 15 units -Continue with heparin - PT Pt is not satisfied with care and is requesting to change doctors in front of nursing staff and requesting us to " get out of room" . She is very non compliant with medical treatment and refuses meds and services offered by physicians and other services which has been documented Since pt is refusing our team Dr Lockhart and Dr Nuñez , for pts safety and for further addressal of her medical treatment , pillowcase cleaner will have to find new PMD Spoke to manager bench Gali who will talk to [facility] insurance and will address this issue GAIL. Result Diagram: 11/13/18 1548 11/15/18 1032 Results 24hrs Laboratory Tests Test 11/15/18 13:02 11/15/18 22:32 11/16/18 08:17 Bedside Glucose 146 182 120 Subjective 24 Hr Interval Summary Free Text/Dictation Pt said that she has pain all over evern touching her legs, abdomen> pain Exam/Review of Systems Exam Vitals Vital Signs Date Temp Pulse Resp B/P (MAP) Pulse Ox O2 O2 Flow FiO2 Time Delivery Rate 11/16/18 98.3 77 18 126/60 95 Room Air 06:30 (82) Intake and Output 11/15/18 11/15/18 11/16/18 1515:00 23:00 07:00 IntakeIntake Total 200 ml BalanceBalance 200 ml Exam MorbidlY obese Gastrointestinal: soft Musculoskeletal: range of motion (pain+) Extremities: No edema tender to touch everywhere fibromyalgia? rt permcath Results Results 24hrs Laboratory Tests Test 11/15/18 13:02 11/15/18 22:32 11/16/18 08:17 Bedside Glucose 146 182 120 Medications Medication Current Medications Acetaminophen (Tylenol Tab) 325 mg Q4H PRN PO MILD PAIN(1-3)OR ELEVATED TEMP Last administered on 10/18/18 09:27; Admin Dose 325 MG; Start 07/20/18 at 23:00 Allopurinol (Zyloprim) 100 mg DAILY PO Last administered on 11/16/18 09:21; Admin Dose 100 MG; Start 07/21/18 at 09:00 IV Flush (NS 3 ml) 3 ml PER PROTOCOL IV ; Start 07/20/18 at 23:00 Acetaminophen (Tylenol Supp) 650 mg Q6H PRN [place] PAIN LEVEL 1-3 OR FEVER; Start 07/20/18 at 23:00 Bisacodyl (Dulcolax) 5 mg DAILY PRN PO CONSTIPATION Last administered on 11/15/18 22:44; Admin Dose 5 MG; Start 07/20/18 at 23:00 Ergocalciferol (Drisdol) 50,000 unit Lacy@0900 PO Last administered on 11/13/18 11:52; Admin Dose 50,000 UNIT; Start 07/24/18 at 09:00 Miscellaneous Information 1 ea NOTE XX ; Start 07/20/18 at 23:00 Dextrose (D50w Syringe) 25 ml Q15M PRN IV DECREASED GLUCOSE; Start 07/20/18 at 23:00 Dextrose (D50w Syringe) 50 ml Q15M PRN IV DECREASED GLUCOSE; Start 07/20/18 at 23:00 Melatonin (Melatonin) 3 mg HS PRN PO INSOMNIA Last administered on 11/15/18 22:29; Admin Dose 3 MG; Start 07/20/18 at 23:00 Al Hydrox/Mg Hydrox/Simethicone (Mag-Al Plus) 30 ml Q4H PRN PO GASTROINTESTINAL UPSET; Start 09/10/18 at 18:00 Ondansetron HCl (Zofran Inj) 4 mg Q6H PRN IV NAUSEA AND/OR VOMITING Last administered on 11/10/18 23:58; Admin Dose 4 MG; Start 09/26/18 at 07:30 Tramadol HCl (Ultram) 100 mg Q6H PRN PO PAIN LEVEL 6-10 Last administered on 11/16/18 11:40; Admin Dose 100 MG; Start 10/09/18 at 18:30 Albumin Human 250 ml @ 250 mls/hr WITH DIALYSIS PRN IV SBP<90; Start 10/11/18 at 12:30 Sodium Chloride (NS) -To prime the dialy... DIRECTED FOR HD PRN IV SBP<90; Start 10/11/18 at 12:30 Lubiprostone (Amitiza) 24 mcg BID PO Last administered on 11/16/18 09:21; Admin Dose 24 MCG; Start 10/12/18 at 10:30 Heparin Sodium (Porcine) (Heparin (5000 Units/1ml)) 5,000 unit BID SC Last administered on 11/16/18 09:25; Admin Dose 5,000 UNIT; Start 10/15/18 at 13:30 Loperamide HCl (Imodium Cap) 2 mg QID PRN PO DIARRHEA Last administered on 10/30/18 15:45; Admin Dose 2 MG; Start 10/23/18 at 18:30 Neomycin/ Polymyxin/ Dexamethasone (Maxitrol Oph Susp) 1 drop QID RIGHT EYE Last administered on 11/16/18 09:22; Admin Dose 1 DROP; Start 10/30/18 at 17:00 Furosemide (Lasix) 40 mg DAILY PO Last administered on 11/16/18 09:22; Admin Dose 40 MG; Start 11/02/18 at 17:47 Insulin Aspart (Novolog Insulin Pen) NOVOLOG *MILD* ALGORITHM WITH MEALS BEDTIME SC Last administered on 11/15/18 22:36; Admin Dose 1 UNIT; Start 11/04/18 at 07:50 Diagnostic Test (Pha) (Accu-Chek) 1 ea 02 XX Last administered on 11/13/18 01:41; Admin Dose 1 EA; Start 11/05/18 at 02:00 Nitroglycerin (Nitroglycerin (Sl Tab) 0.4 Mg) 1 tab Q5M PRN SL ANGINA; Start 11/05/18 at 14:00 Phenol (Chloraseptic Throat [place]) 2 spray Q2H PRN MT SORE THROAT; Start 11/05/18 at 19:00 Insulin Glargine (Lantus) 15 units DAILY@2000 SC Last administered on 11/15/18 22:37; Admin Dose 15 UNITS; Start 11/08/18 at 20:00 Naproxen (Naprosyn) 250 mg TID PRN PO PAIN Last administered on 2/10/19at 11:42; Admin Dose 250 MG; Start 11/10/18 at 16:00 Gabapentin (Neurontin) 100 mg TID PO Last administered on 11/16/18at 09:21; Admin Dose 100 MG; Start 11/10/18 at 21:00 Lactulose (Enulose) 20 gm Q6H PRN PO CONSTIPATION Last administered on 11/10/18at 17:30; Admin Dose 20 GM; Start 11/10/18 at 17:30 Heparin Sodium (Porcine) (Heparin (1000 Units/ml)) 4,000 unit AFTER DIALYSIS CATHETER ; Start 11/14/18 at 17:00 KOFI LOCKHART MD Nov 16, 2018 12:00
[2018-11-16] MEDS ORDERED: KETOROLAC 30 MG INJ IV PRN (13:00)
[2018-11-16] MEDS ORDERED: [UNRECOGNIZED DRUG - REMARK] XX SCH (13:00)
[2018-11-16] MEDS: KETOROLAC 30 MG INJ IV PRN (16:18)
[2018-11-16] MEDS: MELATONIN 3 MG TABLET PO PRN (20:42)
[2018-11-16] MEDS: INSULIN GLARGINE [LANTus] (100 UNITS/ML) SYG SC SCH (20:54)
[2018-11-16] MEDS: BISACODYL (EC) 5 MG TAB PO PRN (21:00)
[2018-11-16 21:13] VITALS: BP 111/55; PULSE 83; RESP 18
[2018-11-17] MEDS ORDERED: KETOROLAC 30 MG INJ IV PRN (01:00)
[2018-11-17] MEDS: ACCUCHECK AT 2AM (Patients on SS coverage) XX SCH (02:00)
[2018-11-17] MEDS: KETOROLAC 30 MG INJ IV PRN ×2 (03:14→16:55)
[2018-11-17 03:20] VITALS: BP 99/63; PULSE 72; RESP 18
[2018-11-17] MEDS: traMADol 50 MG TAB PO PRN ×3 (06:03→18:42)
[2018-11-17] MEDS: INSULIN ASPART [NOVOLOG] 3 ML PEN SC SCH ×4 (07:50→22:30)
[2018-11-17 08:06] VITALS: BP 101/55; PULSE 80; RESP 18
[2018-11-17] MEDS ORDERED: HYDROmorphONE 2 MG TAB PO ONE (08:30)
[2018-11-17] MEDS: NEOMYC/POLYMYX/DEXAMETH OPH 5 ML RIGHT EYE SCH ×4 (09:00→22:29)
[2018-11-17] MEDS: BALSAM PERU/CASTOR OIL 60 GM TUBE TOP SCH ×2 (09:00→22:30)
[2018-11-17] MEDS: ALLOPURINOL 100 MG TAB PO SCH (09:38)
[2018-11-17] MEDS: GABAPENTIN 100 MG CAP PO SCH ×3 (09:38→22:24)
[2018-11-17] MEDS: LUBIPROSTONE 24 MCG CAP PO SCH ×2 (09:39→22:24)
[2018-11-17] MEDS: FUROSEMIDE 40 MG TAB PO SCH (09:39)
[2018-11-17] MEDS: HEPARIN 5,000 UNIT/1 ML VIAL SC SCH ×2 (09:50→22:33)
--- NOTE | 2018-11-17 10:09 | PN ---
Date/Time of Note Date/Time of Note DATE: 11/17/18 TIME: 10:09 Assessment/Plan VTE Prophylaxis Risk score (from Nsg)>0 risk: 6 SCD applied (from Nsg): No SCD contraindicated: low risk/ambulating Pharmacological prophylaxis: NA/contraindicated Pharm contraindication: low risk/ambulating Lines/Catheters IV Catheter Type (from Nrsg): Mid line Urinary Cath still in place: No Assessment/Plan Hospital Course 58 y/o with 1. . 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 hx c diff hx 3. Chronic kidney disease, 4. Morbid obesity. 5. Diabetes. 6. Hypertension, 7. Gout.hx 8. Neuropathy. 9. History of congestive heart failure. 10 weakness 11 deconditioning 13 Left shoulde pain, TTP ? Frozen shoulder , shoulder impingement 14 s/p Fall ? AMS confusion likley due to UTI 15 uti klebsiella and enterococcus 16 diarrhea 15 vomtiing/? contipation> refuse labs again 16 Dizziness> chronic ? Postural 17 UTI 18 rectal pain with fissure 19 malfunctioning permacath s/p new permacath on 11/03/18 20 hyperkalemia 21 Generalised pain Plan - Xray left shoulder - dialudid for pain - pt refusiing HD , says does not want this week - increase gabapentin - ultram/ Toradol -Patient needs dialysis for hyperkalemia however patient had been refusing it as she said that she has not been giving getting her diet , she says allergic to keyexlate and does not want to take any k Lowering med -Explained to her that as per the dietitian they had also recommended [id number] kcal diet and she needs to be on the renal/ diabetic restrictions due to her end-stage renal disease and her diabetes - cw naproxen /gabapentin - Pt said does not want any av fistulas/graft in future, demanding narcotics,explained to her her limiting ability to function on narcotics as she gets extremely lethargic and sleepy on narcotics and would limit her ability to participate in therapy as pt says that she is only here for PT and minute " she is able to go from bed to commode 3 times she will be out of here" - Pt is threatening me that she will take out permcath if restriction are not remove don diet> spoke to patient and told her that it is for her benefit as k, phos and sugars are high so cannot remove restriction> spoke to building insulation supervisor max we can do acc to her weight is increase calories from 1800>2000 elvira diet with same restrictions -cw With Lasix -c w ultram for pain and toradol for pain with midline -She is not cooperative in getting 24-hour urine studies for determining the creatinine clearance to determine if can come off of HD - cw lantus 15 units -Continue with heparin - PT Pt is not satisfied with care and is requesting to change doctors in front of nursing staff and requesting us to " get out of room" . She is very non compliant with medical treatment and refuses meds and services offered by physicians and other services which has been documented Since pt is refusing our team Dr Lockhart and Dr Nuñez , for pts safety and for further addressal of her medical treatment , caseworker will have to find new PMD Spoke to supply chain procurement manager Gali who will talk to [facility] insurance and will address this issue GAIL. Result Diagram: 11/13/18 1548 11/15/18 1032 Results 24hrs Laboratory Tests Test 11/16/18 12:40 11/16/18 17:43 11/16/18 20:45 11/17/18 08:36 Bedside Glucose 156 162 166 138 Subjective 24 Hr Interval Summary Free Text/Dictation Complaining of pain in the left shoulder left side of the body Exam/Review of Systems Exam Vitals Vital Signs Date Temp Pulse Resp B/P (MAP) Pulse Ox O2 O2 Flow FiO2 Time Delivery Rate 11/17/18 98.2 80 18 101/55 95 Room Air 08:06 (70) Intake and Output 11/16/18 11/16/18 11/17/18 1515:00 23:00 07:00 OutputOutput Total 1 ml BalanceBalance -1 ml Exam MorbidlY obese Gastrointestinal: soft Musculoskeletal: range of motion (pain+) Extremities: No edema tender to touch everywhere fibromyalgia? rt permcath Results Results 24hrs Laboratory Tests Test 11/16/18 12:40 11/16/18 17:43 11/16/18 20:45 11/17/18 08:36 Bedside Glucose 156 162 166 138 Medications Medication Current Medications Acetaminophen (Tylenol Tab) 325 mg Q4H PRN PO MILD PAIN(1-3)OR ELEVATED TEMP Last administered on 10/18/18 09:27; Admin Dose 325 MG; Start 07/20/18 at 23:00 Allopurinol (Zyloprim) 100 mg DAILY PO Last administered on 11/17/18 09:38; Admin Dose 100 MG; Start 07/21/18 at 09:00 IV Flush (NS 3 ml) 3 ml PER PROTOCOL IV ; Start 07/20/18 at 23:00 Acetaminophen (Tylenol Supp) 650 mg Q6H PRN [place] PAIN LEVEL 1-3 OR FEVER; Start 07/20/18 at 23:00 Bisacodyl (Dulcolax) 5 mg DAILY PRN PO CONSTIPATION Last administered on 11/16/18 21:00; Admin Dose 5 MG; Start 07/20/18 at 23:00 Ergocalciferol (Drisdol) 50,000 unit Lacy@0900 PO Last administered on 11/13/18 11:52; Admin Dose 50,000 UNIT; Start 07/24/18 at 09:00 Miscellaneous Information 1 ea NOTE XX ; Start 07/20/18 at 23:00 Dextrose (D50w Syringe) 25 ml Q15M PRN IV DECREASED GLUCOSE; Start 07/20/18 at 23:00 Dextrose (D50w Syringe) 50 ml Q15M PRN IV DECREASED GLUCOSE; Start 07/20/18 at 23:00 Melatonin (Melatonin) 3 mg HS PRN PO INSOMNIA Last administered on 11/16/18 20:42; Admin Dose 3 MG; Start 07/20/18 at 23:00 Al Hydrox/Mg Hydrox/Simethicone (Mag-Al Plus) 30 ml Q4H PRN PO GASTROINTESTINAL UPSET; Start 09/10/18 at 18:00 Ondansetron HCl (Zofran Inj) 4 mg Q6H PRN IV NAUSEA AND/OR VOMITING Last administered on 11/10/18 23:58; Admin Dose 4 MG; Start 09/26/18 at 07:30 Tramadol HCl (Ultram) 100 mg Q6H PRN PO PAIN LEVEL 6-10 Last administered on 11/17/18 06:03; Admin Dose 100 MG; Start 10/09/18 at 18:30 Albumin Human 250 ml @ 250 mls/hr WITH DIALYSIS PRN IV SBP<90; Start 10/11/18 at 12:30 Sodium Chloride (NS) -To prime the dialy... DIRECTED FOR HD PRN IV SBP<90; Start 10/11/18 at 12:30 Lubiprostone (Amitiza) 24 mcg BID PO Last administered on 11/17/18 09:39; Admin Dose 24 MCG; Start 10/12/18 at 10:30 Heparin Sodium (Porcine) (Heparin (5000 Units/1ml)) 5,000 unit BID SC Last administered on 11/17/18 09:50; Admin Dose 5,000 UNIT; Start 10/15/18 at 13:30 Loperamide HCl (Imodium Cap) 2 mg QID PRN PO DIARRHEA Last administered on 10/30/18 15:45; Admin Dose 2 MG; Start 10/23/18 at 18:30 Neomycin/ Polymyxin/ Dexamethasone (Maxitrol Oph Susp) 1 drop QID RIGHT EYE Last administered on 11/16/18 21:44; Admin Dose 1 DROP; Start 10/30/18 at 17:00 Furosemide (Lasix) 40 mg DAILY PO Last administered on 11/17/18 09:39; Admin Dose 40 MG; Start 11/02/18 at 17:47 Insulin Aspart (Novolog Insulin Pen) NOVOLOG *MILD* ALGORITHM WITH MEALS BEDTIME SC Last administered on 11/16/18 18:14; Admin Dose 1 UNIT; Start 11/04/18 at 07:50 Diagnostic Test (Pha) (Accu-Chek) 1 ea 02 XX Last administered on 11/13/18 01:41; Admin Dose 1 EA; Start 11/05/18 at 02:00 Nitroglycerin (Nitroglycerin (Sl Tab) 0.4 Mg) 1 tab Q5M PRN SL ANGINA; Start 11/05/18 at 14:00 Phenol (Chloraseptic Throat [place]) 2 spray Q2H PRN MT SORE THROAT; Start 11/05/18 at 19:00 Insulin Glargine (Lantus) 15 units DAILY@2000 SC Last administered on 11/16/18 20:54; Admin Dose 15 UNITS; Start 11/08/18 at 20:00 Naproxen (Naprosyn) 250 mg TID PRN PO PAIN Last administered on 11/13/18at 11:42; Admin Dose 250 MG; Start 11/10/18 at 16:00 Lactulose (Enulose) 20 gm Q6H PRN PO CONSTIPATION Last administered on 11/10/18at 17:30; Admin Dose 20 GM; Start 11/10/18 at 17:30 Heparin Sodium (Porcine) (Heparin (1000 Units/ml)) 4,000 unit AFTER DIALYSIS CATHETER ; Start 11/14/18 at 17:00 Gabapentin (Neurontin) 200 mg TID PO Last administered on 11/17/18at 09:38; Admin Dose 200 MG; Start 11/16/18 at 13:00 Ketorolac Tromethamine (Toradol) 30 mg Q12H PRN IV PAIN Last administered on 11/17/18at 03:14; Admin Dose 30 MG; Start 11/16/18 at 16:30; Stop 11/19/18 at 16:29 KOFI LOCKHART MD Nov 17, 2018 10:09
[2018-11-17 14:10] VITALS: BP 125/61; PULSE 88; RESP 18
[2018-11-17 14:20] VITALS: BP 110/55; PULSE 68; RESP 18
[2018-11-17] MEDS: BISACODYL (EC) 5 MG TAB PO PRN (17:06)
[2018-11-17 19:55] VITALS: BP 105/59; PULSE 75; RESP 20
[2018-11-17] MEDS: INSULIN GLARGINE [LANTus] (100 UNITS/ML) SYG SC SCH (22:34)
[2018-11-18 00:09] VITALS: BP 131/61; PULSE 68; RESP 18
[2018-11-18 00:14] VITALS: BP 113/59; PULSE 81; RESP 18
[2018-11-18] MEDS: ACCUCHECK AT 2AM (Patients on SS coverage) XX SCH (02:00)
[2018-11-18] MEDS: KETOROLAC 30 MG INJ IV PRN (05:38)
[2018-11-18] MEDS ORDERED: CALCIUM CARBONATE 500 MG CHEW TAB PO PRN (06:30)
[2018-11-18] MEDS: INSULIN ASPART [NOVOLOG] 3 ML PEN SC SCH ×4 (07:50→21:00)
[2018-11-18] MEDS: HEPARIN 5,000 UNIT/1 ML VIAL SC SCH ×2 (08:59→21:25)
[2018-11-18] MEDS: ALLOPURINOL 100 MG TAB PO SCH (09:00)
[2018-11-18] MEDS: BALSAM PERU/CASTOR OIL 60 GM TUBE TOP SCH ×2 (09:00→21:28)
[2018-11-18] MEDS: NEOMYC/POLYMYX/DEXAMETH OPH 5 ML RIGHT EYE SCH ×4 (09:00→21:00)
[2018-11-18] MEDS: GABAPENTIN 100 MG CAP PO SCH ×3 (09:00→22:51)
[2018-11-18] MEDS: FUROSEMIDE 40 MG TAB PO SCH (09:04)
[2018-11-18] MEDS: LUBIPROSTONE 24 MCG CAP PO SCH ×2 (09:05→22:50)
[2018-11-18 09:08] VITALS: BP 145/61; PULSE 71; RESP 19
[2018-11-18] MEDS: traMADol 50 MG TAB PO PRN ×2 (09:16→18:09)
--- NOTE | 2018-11-18 15:28 | PN ---
DANA MEDEIROSA 11/18/18 1528: Date/Time of Note Date/Time of Note DATE: 11/18/18 TIME: 15:19 Assessment/Plan VTE Prophylaxis Risk score (from Ns)>0 risk: 5 SCD applied (from Ns): No SCD contraindicated: other Pharmacological prophylaxis: heparin Lines/Catheters [facility] permacath Urinary Cath still in place: No Assessment/Plan Hospital Course 1. ckd, hyperkalemia, resolved . Right chest permcath working 2. c diff hx 3. Opiates dependency 4. Morbid obesity. 5. Diabetes. 6. Hypertension, 7. Gout, hx 8. Neuropathy. 9. History of congestive heart failure. 10. weakness 11. deconditioning 12. Non compliance, pt refused Valtessa, HD 13. Left shoulder chronic pain. X -ray was reviewed from the last visit, it is arthrosis left acromioclavicular joint 14. constipation 15. UTI 16. Hepatitis C 17. OA left knee, per XR severe degenerative changes of the left knee, more pronounced in the medial compartment. Assessment/Plan - Xray left shoulder is unremarcable - dialudid for pain - pt refused HD today, says does not need it at all, she agreed for L lowering medication - increase gabapentin - ultram/ Toradol -Patient needs dialysis for hyperkalemia however patient had been refusing it as she said that she has not been giving getting her diet -Explained to her that as per the dietitian they had also recommended [id number] kcal diet and she needs to be on the renal/ diabetic restrictions due to her end-stage renal disease and her diabetes again - cw naproxen /gabapentin - Pt said does not want any av fistulas/graft in future, - Pt is threatening me that she will take out Permcath, if restriction are not remove from diet> spoke to patient and told her that it is for her benefit as k, phos and sugars are high so cannot remove restriction> spoke to drupal programmer max we can do acc to her weight is increase calories from 1800>2000 elvira diet with same restrictions -cw With Lasix -c w ultram for pain and toradol for pain with midline -She is not cooperative in getting 24-hour urine studies for determining the creatinine clearance to determine if can come off of HD - cw lantus 15 units -Continue with heparin - PT Result Diagram: 11/18/18 1413 Results 24hrs Laboratory Tests Test 11/17/18 17:57 11/17/18 22:22 11/18/18 08:58 11/18/18 13:11 Bedside Glucose 143 164 88 125 Test 11/18/18 14:13 Sodium Level 137 Potassium Level 6.2 *H Chloride Level 101 Carbon Dioxide Level 28 Anion Gap 8 Blood Urea Nitrogen 76 H Creatinine 4.10 H Est Glomerular 11 L Filtrat Rate mL/min Glucose Level 123 Calcium Level 8.9 Subjective 24 Hr Interval Summary Constitutional: no complaints Exam/Review of Systems Exam Vitals Vital Signs Date Temp Pulse Resp B/P (MAP) Pulse Ox O2 O2 Flow FiO2 Time Delivery Rate 11/18/18 98.2 71 19 145/61 96 09:08 (89) 11/17/18 Room Air 14:10 Intake and Output 11/17/18 11/17/18 11/18/18 1515:00 23:00 07:00 IntakeIntake Total 240 ml BalanceBalance 240 ml Exam right chest Permcath Constitutional: alert, oriented Psych: no complaints Head: normocephalic Neck: supple Respiratory: clear to auscultation Cardiovascular: regular rate and rhythm Gastrointestinal: soft Musculoskeletal: nl extremities to inspection Neurological: CHIROPRACTIC ASSISTANT II-XII intact Results Result Diagram: 11/18/18 1413 Results 24hrs Laboratory Tests Test 11/17/18 17:57 11/17/18 22:22 11/18/18 08:58 11/18/18 13:11 Bedside Glucose 143 164 88 125 Test 11/18/18 14:13 Sodium Level 137 Potassium Level 6.2 *H Chloride Level 101 Carbon Dioxide Level 28 Anion Gap 8 Blood Urea Nitrogen 76 H Creatinine 4.10 H Est Glomerular 11 L Filtrat Rate mL/min Glucose Level 123 Calcium Level 8.9 Medications Medication Current Medications Acetaminophen (Tylenol Tab) 325 mg Q4H PRN PO MILD PAIN(1-3)OR ELEVATED TEMP Last administered on 10/18/18at 09:27; Admin Dose 325 MG; Start 07/20/18 at 23:00 Allopurinol (Zyloprim) 100 mg DAILY PO Last administered on 11/18/18at 09:00; Admin Dose 100 MG; Start 07/21/18 at 09:00 IV Flush (NS 3 ml) 3 ml PER PROTOCOL IV ; Start 07/20/18 at 23:00 Acetaminophen (Tylenol Supp) 650 mg Q6H PRN [place] PAIN LEVEL 1-3 OR FEVER; Start 07/20/18 at 23:00 Bisacodyl (Dulcolax) 5 mg DAILY PRN PO CONSTIPATION Last administered on 11/17/18 17:06; Admin Dose 5 MG; Start 07/20/18 at 23:00 Ergocalciferol (Drisdol) 50,000 unit Lacy@0900 PO Last administered on 11/13/18 11:52; Admin Dose 50,000 UNIT; Start 07/24/18 at 09:00 Miscellaneous Information 1 ea NOTE XX ; Start 07/20/18 at 23:00 Dextrose (D50w Syringe) 25 ml Q15M PRN IV DECREASED GLUCOSE; Start 07/20/18 at 23:00 Dextrose (D50w Syringe) 50 ml Q15M PRN IV DECREASED GLUCOSE; Start 07/20/18 at 23:00 Melatonin (Melatonin) 3 mg HS PRN PO INSOMNIA Last administered on 11/16/18 20:42; Admin Dose 3 MG; Start 07/20/18 at 23:00 Al Hydrox/Mg Hydrox/Simethicone (Mag-Al Plus) 30 ml Q4H PRN PO GASTROINTESTINAL UPSET Last administered on 11/17/18 11:27; Admin Dose 30 ML; Start 09/10/18 at 18:00 Ondansetron HCl (Zofran Inj) 4 mg Q6H PRN IV NAUSEA AND/OR VOMITING Last administered on 11/10/18 23:58; Admin Dose 4 MG; Start 09/26/18 at 07:30 Tramadol HCl (Ultram) 100 mg Q6H PRN PO PAIN LEVEL 6-10 Last administered on 11/18/18 09:16; Admin Dose 100 MG; Start 10/09/18 at 18:30 Albumin Human 250 ml @ 250 mls/hr WITH DIALYSIS PRN IV SBP<90; Start 10/11/18 at 12:30 Sodium Chloride (NS) -To prime the dialy... DIRECTED FOR HD PRN IV SBP<90; Start 10/11/18 at 12:30 Lubiprostone (Amitiza) 24 mcg BID PO Last administered on 11/18/18 09:05; Admin Dose 24 MCG; Start 10/12/18 at 10:30 Heparin Sodium (Porcine) (Heparin (5000 Units/1ml)) 5,000 unit BID SC Last administered on 11/18/18 08:59; Admin Dose 5,000 UNIT; Start 10/15/18 at 13:30 Loperamide HCl (Imodium Cap) 2 mg QID PRN PO DIARRHEA Last administered on 10/30/18 15:45; Admin Dose 2 MG; Start 10/23/18 at 18:30 Neomycin/ Polymyxin/ Dexamethasone (Maxitrol Oph Susp) 1 drop QID RIGHT EYE Last administered on 11/18/18 09:00; Admin Dose 1 DROP; Start 10/30/18 at 17:00 Furosemide (Lasix) 40 mg DAILY PO Last administered on 11/18/18 09:04; Admin Dose 40 MG; Start 11/02/18 at 17:47 Insulin Aspart (Novolog Insulin Pen) NOVOLOG *MILD* ALGORITHM WITH MEALS BEDTIME SC Last administered on 11/17/18 18:46; Admin Dose 1 UNIT; Start 11/04/18 at 07:50 Diagnostic Test (Pha) (Accu-Chek) 1 ea 02 XX Last administered on 11/13/18 01:41; Admin Dose 1 EA; Start 11/05/18 at 02:00 Nitroglycerin (Nitroglycerin (Sl Tab) 0.4 Mg) 1 tab Q5M PRN SL ANGINA; Start 11/05/18 at 14:00 Phenol (Chloraseptic Throat [place]) 2 spray Q2H PRN MT SORE THROAT; Start 11/05/18 at 19:00 Insulin Glargine (Lantus) 15 units DAILY@2000 SC Last administered on 11/17/18 22:34; Admin Dose 15 UNITS; Start 11/08/18 at 20:00 Naproxen (Naprosyn) 250 mg TID PRN PO PAIN Last administered on 11/13/18 11:42; Admin Dose 250 MG; Start 11/10/18 at 16:00 Lactulose (Enulose) 20 gm Q6H PRN PO CONSTIPATION Last administered on 11/10/18 17:30; Admin Dose 20 GM; Start 11/10/18 at 17:30 Heparin Sodium (Porcine) (Heparin (1000 Units/ml)) 4,000 unit AFTER DIALYSIS CATHETER ; Start 11/14/18 at 17:00 Gabapentin (Neurontin) 200 mg TID PO Last administered on 11/18/18at 13:12; Admin Dose 200 MG; Start 11/16/18 at 13:00 Ketorolac Tromethamine (Toradol) 30 mg Q12H PRN IV PAIN Last administered on 11/18/18at 05:38; Admin Dose 30 MG; Start 11/16/18 at 16:30; Stop 11/19/18 at 16:29 Calcium Carbonate (Tums) 500 mg BID PRN PO GASTROINTESTINAL UPSET Last administered on 11/18/18at 09:06; Admin Dose 500 MG; Start 11/18/18 at 06:30 KOFI SWANN MD 11/18/18 1701: Assessment/Plan Assessment/Plan Assessment/Plan PT REFUSED HD UNDERSTABDS CONSQUENCES AGREED FOR ANGELITA Result Diagram: 11/18/18 1413 WILLY MEDEIROS Nov 18, 2018 15:28 KOFI SWANN MD Nov 18, 2018 17:01
[2018-11-18] MEDS ORDERED: PATIROMER CALCIUM SORBITEX 16.8 GM PKT PO SCH (17:00)
[2018-11-18] MEDS ORDERED: HEPARIN 1000 UNITS/ML 10 ML INJ CATHETER ONE (17:30)
[2018-11-18 19:50] VITALS: BP 124/64; PULSE 77; RESP 18
[2018-11-18] MEDS: INSULIN GLARGINE [LANTus] (100 UNITS/ML) SYG SC SCH (21:24)
[2018-11-19] MEDS ORDERED: SPECIAL NON-STANDARD MEDICATION PO ONE (01:00)
[2018-11-19] MEDS: traMADol 50 MG TAB PO PRN ×3 (01:02→21:20)
[2018-11-19] MEDS: ACCUCHECK AT 2AM (Patients on SS coverage) XX SCH ×2 (01:09→22:47)
[2018-11-19] MEDS ORDERED: PATIROMER CALCIUM SORBITEX 16.8 GM PKT PO ONE (01:30)
[2018-11-19 01:55] VITALS: BP 111/58; PULSE 76; RESP 18
[2018-11-19] MEDS: KETOROLAC 30 MG INJ IV PRN (05:17)
[2018-11-19 08:08] VITALS: BP 102/58; PULSE 79; RESP 15
[2018-11-19] MEDS: INSULIN ASPART [NOVOLOG] 3 ML PEN SC SCH ×4 (08:56→21:00)
[2018-11-19] MEDS: GABAPENTIN 100 MG CAP PO SCH ×3 (08:58→21:20)
[2018-11-19] MEDS: LUBIPROSTONE 24 MCG CAP PO SCH ×2 (08:59→21:21)
[2018-11-19] MEDS: ALLOPURINOL 100 MG TAB PO SCH (08:59)
[2018-11-19] MEDS: NEOMYC/POLYMYX/DEXAMETH OPH 5 ML RIGHT EYE SCH ×4 (09:00→21:00)
[2018-11-19] MEDS: BALSAM PERU/CASTOR OIL 60 GM TUBE TOP SCH ×2 (09:00→21:00)
[2018-11-19] MEDS: FUROSEMIDE 40 MG TAB PO SCH (09:05)
[2018-11-19] MEDS: HEPARIN 5,000 UNIT/1 ML VIAL SC SCH ×2 (09:07→21:30)
[2018-11-19] MEDS: NAPROXEN 250 MG TAB PO PRN ×2 (11:24→21:24)
[2018-11-19] MEDS: BISACODYL (EC) 5 MG TAB PO PRN (11:28)
[2018-11-19] MEDS ORDERED: NA PHOSPHATE/BIPHOS 133 ML ENEMA PR ONE (13:51)
[2018-11-19 14:17] VITALS: BP 119/69; PULSE 80; RESP 15
--- NOTE | 2018-11-19 14:26 | PN ---
Date/Time of Note Date/Time of Note DATE: 11/19/18 TIME: 14:23 Assessment/Plan VTE Prophylaxis Risk score (from Ns)>0 risk: 5 SCD applied (from Ns): No SCD contraindicated: other Pharmacological prophylaxis: heparin Lines/Catheters IV Catheter Type (from Nrs): Midline Urinary Cath still in place: No Assessment/Plan Hospital Course 1. ckd, hyperkalemia . VAltesssa bID scheduled. Right chest permcath working , but pt refusing HD 2. c diff hx 3. Opiates dependency 4. Morbid obesity. 5. Diabetes. 6. Hypertension, 7. Gout, hx 8. Neuropathy. 9. History of congestive heart failure. 10. weakness 11. deconditioning 12. Non compliance, pt refused Valtessa, HD 13. Left shoulder chronic pain. X -ray was reviewed from the last visit, it is arthrosis left acromioclavicular joint 14. constipation 15. UTI 16. Hepatitis C 17. OA left knee, per XR severe degenerative changes of the left knee, more pronounced in the medial compartment. Assessment/Plan - CBC, BMP today -pt refused orthopedic surgeon referral for genaralized pain, she requesting Dilaudid over the clock. -pt refusing Valtessa for hyperkalemia, explained to her that her heart might stop due to high potassium, pt is not compliant. - pt refused HD today, says does not need it at all, refused medical examination - c/w gabapentin - ultram/ Toradol -Patient needs dialysis for hyperkalemia however patient had been refusing it as she said that she has not been giving getting her diet - Pt said does not want any av fistulas/graft in future, - cw lantus 15 units -Continue with heparin - PT Result Diagram: 11/18/18 1001 Results 24hrs Laboratory Tests Test 11/18/18 18:03 11/18/18 21:22 11/18/18 22:51 11/19/18 01:06 Bedside Glucose 156 172 153 Potassium Level 5.8 H Test 11/19/18 08:56 11/19/18 12:37 Bedside Glucose 131 155 Subjective 24 Hr Interval Summary Free Text/Dictation refused HD Constitutional: no complaints Exam/Review of Systems Exam Vitals Vital Signs Date Temp Pulse Resp B/P (MAP) Pulse Ox O2 O2 Flow FiO2 Time Delivery Rate 11/19/18 98.3 80 15 119/69 100 Room Air 14:17 (86) Intake and Output 11/18/18 11/18/18 11/19/18 1414:59 22:59 06:59 IntakeIntake Total 480 ml OutputOutput Total 2 ml BalanceBalance 478 ml Exam refused examination, say she want to left alone Constitutional: alert, oriented Psych: nl mood/affect, depression (per patient); No no complaints, No anxiety, No confusion, No suicidal, No other Head: normocephalic, atraumatic Eyes: nl conjunctiva ENMT: nl external ears & nose Neck: supple Results Results 24hrs Laboratory Tests Test 11/18/18 18:03 11/18/18 21:22 11/18/18 22:51 11/19/18 01:06 Bedside Glucose 156 172 153 Potassium Level 5.8 H Test 11/19/18 08:56 11/19/18 12:37 Bedside Glucose 131 155 Medications Medication Current Medications Acetaminophen (Tylenol Tab) 325 mg Q4H PRN PO MILD PAIN(1-3)OR ELEVATED TEMP Last administered on 10/18/18 09:27; Admin Dose 325 MG; Start 07/20/18 at 23:00 Allopurinol (Zyloprim) 100 mg DAILY PO Last administered on 11/19/18 08:59; Admin Dose 100 MG; Start 07/21/18 at 09:00 IV Flush (NS 3 ml) 3 ml PER PROTOCOL IV ; Start 07/20/18 at 23:00 Acetaminophen (Tylenol Supp) 650 mg Q6H PRN [place] PAIN LEVEL 1-3 OR FEVER; Start 07/20/18 at 23:00 Bisacodyl (Dulcolax) 5 mg DAILY PRN PO CONSTIPATION Last administered on 11/19/18 11:28; Admin Dose 5 MG; Start 07/20/18 at 23:00 Ergocalciferol (Drisdol) 50,000 unit Lacy@0900 PO Last administered on 11/13/18 11:52; Admin Dose 50,000 UNIT; Start 07/24/18 at 09:00 Miscellaneous Information 1 ea NOTE XX ; Start 07/20/18 at 23:00 Dextrose (D50w Syringe) 25 ml Q15M PRN IV DECREASED GLUCOSE; Start 07/20/18 at 23:00 Dextrose (D50w Syringe) 50 ml Q15M PRN IV DECREASED GLUCOSE; Start 07/20/18 at 23:00 Melatonin (Melatonin) 3 mg HS PRN PO INSOMNIA Last administered on 11/16/18 20:42; Admin Dose 3 MG; Start 07/20/18 at 23:00 Al Hydrox/Mg Hydrox/Simethicone (Mag-Al Plus) 30 ml Q4H PRN PO GASTROINTESTINAL UPSET Last administered on 11/17/18 11:27; Admin Dose 30 ML; Start 09/10/18 at 18:00 Ondansetron HCl (Zofran Inj) 4 mg Q6H PRN IV NAUSEA AND/OR VOMITING Last administered on 11/10/18 23:58; Admin Dose 4 MG; Start 09/26/18 at 07:30 Tramadol HCl (Ultram) 100 mg Q6H PRN PO PAIN LEVEL 6-10 Last administered on 11/19/18 12:44; Admin Dose 100 MG; Start 10/09/18 at 18:30 Albumin Human 250 ml @ 250 mls/hr WITH DIALYSIS PRN IV SBP<90; Start 10/11/18 at 12:30 Sodium Chloride (NS) -To prime the dialy... DIRECTED FOR HD PRN IV SBP<90; Start 10/11/18 at 12:30 Lubiprostone (Amitiza) 24 mcg BID PO Last administered on 11/19/18 08:59; Admin Dose 24 MCG; Start 10/12/18 at 10:30 Heparin Sodium (Porcine) (Heparin (5000 Units/1ml)) 5,000 unit BID SC Last administered on 11/19/18 09:07; Admin Dose 5,000 UNIT; Start 10/15/18 at 13:30 Loperamide HCl (Imodium Cap) 2 mg QID PRN PO DIARRHEA Last administered on 10/30/18 15:45; Admin Dose 2 MG; Start 10/23/18 at 18:30 Neomycin/ Polymyxin/ Dexamethasone (Maxitrol Oph Susp) 1 drop QID RIGHT EYE Last administered on 11/19/18 09:00; Admin Dose 1 DROP; Start 10/30/18 at 17:00 Furosemide (Lasix) 40 mg DAILY PO Last administered on 11/19/18 09:05; Admin Dose 40 MG; Start 11/02/18 at 17:47 Insulin Aspart (Novolog Insulin Pen) NOVOLOG *MILD* ALGORITHM WITH MEALS BEDTIME SC Last administered on 11/19/18 12:40; Admin Dose 1 UNIT; Start 11/04/18 at 07:50 Diagnostic Test (Pha) (Accu-Chek) 1 ea 02 XX Last administered on 11/19/18 01:09; Admin Dose 1 EA; Start 11/05/18 at 02:00 Nitroglycerin (Nitroglycerin (Sl Tab) 0.4 Mg) 1 tab Q5M PRN SL ANGINA; Start 11/05/18 at 14:00 Phenol (Chloraseptic Throat [place]) 2 spray Q2H PRN MT SORE THROAT; Start 11/05/18 at 19:00 Insulin Glargine (Lantus) 15 units DAILY@2000 SC Last administered on 11/18/18 21:24; Admin Dose 15 UNITS; Start 11/08/18 at 20:00 Naproxen (Naprosyn) 250 mg TID PRN PO PAIN Last administered on 11/19/18 11:24; Admin Dose 250 MG; Start 11/10/18 at 16:00 Lactulose (Enulose) 20 gm Q6H PRN PO CONSTIPATION Last administered on 11/10/18 17:30; Admin Dose 20 GM; Start 11/10/18 at 17:30 Gabapentin (Neurontin) 200 mg TID PO Last administered on 11/19/18 12:34; Admin Dose 200 MG; Start 11/16/18 at 13:00 Ketorolac Tromethamine (Toradol) 30 mg Q12H PRN IV PAIN Last administered on 11/19/18 05:17; Admin Dose 30 MG; Start 11/16/18 at 16:30; Stop 11/19/18 at 16:29 Calcium Carbonate (Tums) 500 mg BID PRN PO GASTROINTESTINAL UPSET Last administered on 11/18/18 09:06; Admin Dose 500 MG; Start 11/18/18 at 06:30 WILLY MEDEIROS Nov 19, 2018 14:26
[2018-11-19 19:30] VITALS: BP 132/76; PULSE 83; RESP 20
[2018-11-19] MEDS ORDERED: CARBAMIDE PEROXIDE 6.5% 15ML OTIC BOTH EARS PRN (20:30)
[2018-11-19] MEDS: PATIROMER CALCIUM SORBITEX 16.8 GM PKT PO SCH (21:00)
[2018-11-19] MEDS: OLOPATADINE 0.1% 5 ML OPH BOTH EYES SCH (21:20)
[2018-11-19] MEDS: INSULIN GLARGINE [LANTus] (100 UNITS/ML) SYG SC SCH (21:30)
[2018-11-20 02:20] VITALS: BP 132/61; PULSE 75; RESP 20
[2018-11-20] MEDS: MELATONIN 3 MG TABLET PO PRN ×2 (03:19→20:57)
[2018-11-20] MEDS: traMADol 50 MG TAB PO PRN ×3 (03:19→17:51)
[2018-11-20 08:16] VITALS: BP 110/58; PULSE 75; RESP 16
[2018-11-20] MEDS: GABAPENTIN 100 MG CAP PO SCH ×3 (08:19→20:56)
[2018-11-20] MEDS: LUBIPROSTONE 24 MCG CAP PO SCH ×2 (08:19→20:56)
[2018-11-20] MEDS: OLOPATADINE 0.1% 5 ML OPH BOTH EYES SCH ×2 (08:19→20:57)
[2018-11-20] MEDS: ALLOPURINOL 100 MG TAB PO SCH (08:20)
[2018-11-20] MEDS: FUROSEMIDE 40 MG TAB PO SCH (08:20)
[2018-11-20] MEDS: BALSAM PERU/CASTOR OIL 60 GM TUBE TOP SCH ×2 (08:20→20:58)
[2018-11-20] MEDS: PHENOL 1.4% SOLN 180 ML BTL MT PRN (08:21)
[2018-11-20] MEDS: INSULIN ASPART [NOVOLOG] 3 ML PEN SC SCH ×4 (08:23→21:00)
[2018-11-20] MEDS: HEPARIN 5,000 UNIT/1 ML VIAL SC SCH ×2 (08:25→21:00)
[2018-11-20] MEDS: PATIROMER CALCIUM SORBITEX 16.8 GM PKT PO SCH ×2 (08:28→20:57)
[2018-11-20] MEDS: NEOMYC/POLYMYX/DEXAMETH OPH 5 ML RIGHT EYE SCH ×4 (08:29→20:58)
[2018-11-20] MEDS: ERGOCALCIFEROL 50,000 UNIT CAP PO SCH (08:30)
[2018-11-20] MEDS: NAPROXEN 250 MG TAB PO PRN ×2 (09:25→20:56)
[2018-11-20 15:57] VITALS: BP 118/61; PULSE 86; RESP 16
--- NOTE | 2018-11-20 17:53 | PN ---
Date/Time of Note Date/Time of Note DATE: 11/20/18 TIME: 17:49 Assessment/Plan VTE Prophylaxis Risk score (from Ns)>0 risk: 5 [place] [facility] [place] contraindicated: other Pharmacological prophylaxis: other Pharm contraindication: other Lines/Catheters IV Catheter Type (from Nrsg): Mid Line Urinary Cath still in place: No Assessment/Plan Hospital Course 1. . ckd on hd non compliance w meds AND REFUSED HD 2. c diff hx 3. Chronic kidney disease, 4. Morbid obesity.W DECONDITIONING 5. Diabetes. 6. Hypertension, 7. Gout.hx 8. Neuropathy. 9. History of congestive heart failure. 10 weakness 11 narcotic seeking behaviour 13 NON COMPLIANCEW TREATMENT AND PT OT 14 KNEE AND SHOULDER PAIN LEFT PLAN continue hd PAIN MEDS HD ANDRESTACASSIE MOYER TO SEE Result Diagram: 11/20/18 1110 11/20/18 1110 Results 24hrs Laboratory Tests Test 11/19/18 17:51 11/19/18 21:23 11/20/18 08:18 11/20/18 11:10 Bedside Glucose 194 174 152 White Blood Count 10.5 Red Blood Count 3.77 L Hemoglobin 10.4 L Hematocrit 34.5 L Mean Corpuscular 91.5 Volume Mean Corpuscular 27.6 L Hemoglobin Mean Corpuscular 30.1 L Hemoglobin Concent Red Cell 17.2 H Distribution Width Platelet Count 329 Mean Platelet Volume 10.1 Immature 0.200 Granulocytes % Neutrophils % 60.7 Lymphocytes % 27.7 Monocytes % 6.1 Eosinophils % 4.5 Basophils % 0.8 Nucleated Red Blood 0.0 Cells % Immature 0.020 Granulocytes # Neutrophils # 6.4 Lymphocytes # 2.9 Monocytes # 0.6 Eosinophils # 0.5 Basophils # 0.1 Nucleated Red Blood 0.0 Cells # Sodium Level 142 Potassium Level 6.1 *H Chloride Level 103 Carbon Dioxide Level 26 Anion Gap 13 Blood Urea Nitrogen 83 H Creatinine 4.22 H Est Glomerular 11 L Filtrat Rate mL/min Glucose Level 153 Calcium Level 8.6 Test 11/20/18 12:50 Bedside Glucose 173 Subjective 24 Hr Interval Summary Constitutional: other (REFUSING DIALYSIS AND KAYEXALATE AND VELTASSA ,WANT TO EAT NON RENAL DIET) Respiratory: no complaints Exam/Review of Systems Exam Vitals Vital Signs Date Temp Pulse Resp B/P (MAP) Pulse Ox O2 O2 Flow FiO2 Time Delivery Rate 11/20/18 97.8 86 16 118/61 97 15:57 (80) 11/20/18 Room Air 02:20 Intake and Output 11/19/18 11/19/18 11/20/18 1515:00 23:00 07:00 IntakeIntake Total 500 ml 350 ml BalanceBalance 500 ml 350 ml Respiratory: clear to auscultation Cardiovascular: regular rate and rhythm Gastrointestinal: soft Musculoskeletal: range of motion (PAIN KNEE AND SHOULDER) Extremities: edema (TR) Neurological: MANIFOLD OPERATOR II-XII intact, nl speech Results Results 24hrs Laboratory Tests Test 11/19/18 17:51 11/19/18 21:23 11/20/18 08:18 11/20/18 11:10 Bedside Glucose 194 174 152 White Blood Count 10.5 Red Blood Count 3.77 L Hemoglobin 10.4 L Hematocrit 34.5 L Mean Corpuscular 91.5 Volume Mean Corpuscular 27.6 L Hemoglobin Mean Corpuscular 30.1 L Hemoglobin Concent Red Cell 17.2 H Distribution Width Platelet Count 329 Mean Platelet Volume 10.1 Immature 0.200 Granulocytes % Neutrophils % 60.7 Lymphocytes % 27.7 Monocytes % 6.1 Eosinophils % 4.5 Basophils % 0.8 Nucleated Red Blood 0.0 Cells % Immature 0.020 Granulocytes # Neutrophils # 6.4 Lymphocytes # 2.9 Monocytes # 0.6 Eosinophils # 0.5 Basophils # 0.1 Nucleated Red Blood 0.0 Cells # Sodium Level 142 Potassium Level 6.1 *H Chloride Level 103 Carbon Dioxide Level 26 Anion Gap 13 Blood Urea Nitrogen 83 H Creatinine 4.22 H Est Glomerular 11 L Filtrat Rate mL/min Glucose Level 153 Calcium Level 8.6 Test 11/20/18 12:50 Bedside Glucose 173 Medications Medication Current Medications Acetaminophen (Tylenol Tab) 325 mg Q4H PRN PO MILD PAIN(1-3)OR ELEVATED TEMP Last administered on 10/18/18at 09:27; Admin Dose 325 MG; Start 07/20/18 at 23:00 Allopurinol (Zyloprim) 100 mg DAILY PO Last administered on 11/20/18at 08:20; Admin Dose 100 MG; Start 07/21/18 at 09:00 IV Flush (NS 3 ml) 3 ml PER PROTOCOL IV ; Start 07/20/18 at 23:00 Acetaminophen (Tylenol Supp) 650 mg Q6H PRN SD PAIN LEVEL 1-3 OR FEVER; Start 07/20/18 at 23:00 Bisacodyl (Dulcolax) 5 mg DAILY PRN PO CONSTIPATION Last administered on 11/19/18 11:28; Admin Dose 5 MG; Start 07/20/18 at 23:00 Ergocalciferol (Drisdol) 50,000 unit Lacy@0900 PO Last administered on 11/20/18 08:30; Admin Dose 50,000 UNIT; Start 07/24/18 at 09:00 Miscellaneous Information 1 ea NOTE XX ; Start 07/20/18 at 23:00 Dextrose (D50w Syringe) 25 ml Q15M PRN IV DECREASED GLUCOSE; Start 07/20/18 at 23:00 Dextrose (D50w Syringe) 50 ml Q15M PRN IV DECREASED GLUCOSE; Start 07/20/18 at 23:00 Melatonin (Melatonin) 3 mg HS PRN PO INSOMNIA Last administered on 11/20/18 03:19; Admin Dose 3 MG; Start 07/20/18 at 23:00 Al Hydrox/Mg Hydrox/Simethicone (Mag-Al Plus) 30 ml Q4H PRN PO GASTROINTESTINAL UPSET Last administered on 11/17/18 11:27; Admin Dose 30 ML; Start 09/10/18 at 18:00 Ondansetron HCl (Zofran Inj) 4 mg Q6H PRN IV NAUSEA AND/OR VOMITING Last administered on 11/10/18 23:58; Admin Dose 4 MG; Start 09/26/18 at 07:30 Tramadol HCl (Ultram) 100 mg Q6H PRN PO PAIN LEVEL 6-10 Last administered on 11/20/18 09:25; Admin Dose 100 MG; Start 10/09/18 at 18:30 Albumin Human 250 ml @ 250 mls/hr WITH DIALYSIS PRN IV SBP<90; Start 10/11/18 at 12:30 Sodium Chloride (NS) -To prime the dialy... DIRECTED FOR HD PRN IV SBP<90; Start 10/11/18 at 12:30 Lubiprostone (Amitiza) 24 mcg BID PO Last administered on 11/20/18 08:19; A dmin Dose 24 MCG; Start 10/12/18 at 10:30 Heparin Sodium (Porcine) (Heparin (5000 Units/1ml)) 5,000 unit BID SC Last administered on 11/20/18 08:25; Admin Dose 5,000 UNIT; Start 10/15/18 at 13:30 Loperamide HCl (Imodium Cap) 2 mg QID PRN PO DIARRHEA Last administered on 10/30/18 15:45; Admin Dose 2 MG; Start 10/23/18 at 18:30 Neomycin/ Polymyxin/ Dexamethasone (Maxitrol Oph Susp) 1 drop QID RIGHT EYE Last administered on 11/20/18 08:29; Admin Dose 1 DROP; Start 10/30/18 at 17:00 Furosemide (Lasix) 40 mg DAILY PO Last administered on 11/20/18 08:20; Admin Dose 40 MG; Start 11/02/18 at 17:47 Insulin Aspart (Novolog Insulin Pen) NOVOLOG *MILD* ALGORITHM WITH MEALS BEDTIME SC Last administered on 11/20/18 12:54; Admin Dose 1 UNIT; Start 11/04/18 at 07:50 Diagnostic Test (Pha) (Accu-Chek) 1 ea 02 XX Last administered on 11/19/18 01:09; Admin Dose 1 EA; Start 11/05/18 at 02:00 Nitroglycerin (Nitroglycerin (Sl Tab) 0.4 Mg) 1 tab Q5M PRN SL ANGINA; Start 11/05/18 at 14:00 Phenol (Chloraseptic Throat [place]) 2 spray Q2H PRN MT SORE THROAT Last administered on 11/20/18 08:21; Admin Dose 2 SPRAY; Start 11/05/18 at 19:00 Insulin Glargine (Lantus) 15 units DAILY@2000 SC Last administered on 11/19/18 21:30; Admin Dose 15 UNITS; Start 11/08/18 at 20:00 Naproxen (Naprosyn) 250 mg TID PRN PO PAIN Last administered on 11/20/18 09:25; Admin Dose 250 MG; Start 11/10/18 at 16:00 Lactulose (Enulose) 20 gm Q6H PRN PO CONSTIPATION Last administered on 11/10/18 17:30; Admin Dose 20 GM; Start 11/10/18 at 17:30 Gabapentin (Neurontin) 200 mg TID PO Last administered on 11/20/18at 12:52; A dmin Dose 200 MG; Start 11/16/18 at 13:00 Calcium Carbonate (Tums) 500 mg BID PRN PO GASTROINTESTINAL UPSET Last administered on 11/18/18at 09:06; Admin Dose 500 MG; Start 11/18/18 at 06:30 Olopatadine HCl (Patanol 0.1% Oph) 1 drop BID BOTH EYES Last administered on 11/20/18at 08:19; Admin Dose 1 DROP; Start 11/19/18 at 21:00 Patiromer (Veltassa) 8.4 gm BID PO ; Start 11/19/18 at 21:00; Stop 11/21/18 at 09:01 Carbamide Peroxide (Debrox Otic) 3 drop BID PRN BOTH EARS EAR PAIN; Start 11/19/18 at 20:30; Stop 11/26/18 at 21:00 BRIAN ROBLEDO MD Nov 20, 2018 17:53
[2018-11-20 20:35] VITALS: BP 116/70; PULSE 85; RESP 19
[2018-11-20] MEDS: INSULIN GLARGINE [LANTus] (100 UNITS/ML) SYG SC SCH (21:01)
[2018-11-20] MEDS: ACCUCHECK AT 2AM (Patients on SS coverage) XX SCH (21:31)
[2018-11-21] VITALS (18 sets, daily range): BP systolic 93–125; BP diastolic 50–84; PULSE 71–96; RESP 16–20
[2018-11-21] MEDS: traMADol 50 MG TAB PO PRN ×3 (03:19→20:59)
--- NOTE | 2018-11-21 06:51 | PN ---
DATE: 11/20/2018 The patient is examined again and a steroid injection of the subacromial space of the left shoulder w as recommended again. She claims that she is reluctant to have an injection because of the following reasons: 1. It may be painful for during the injection unless we can give it to her left shoulder while she i s under general anesthesia. 2. It may relief her a couple of months and the pain may return. She was informed that we usually do not put the patient under anesthesia to give subacromial space in jection with steroid. Because it is a chronic condition, she may have a recurrent pain after relief initial relief couple of months and she may need a repeated injection again. Because of above stated reason, she is reluctant to have an injection and she will consider again and she will let me know i f she wants the injection or not. Dictated By: SULY MOYER MD IK/NTS Conf#: [id number] DID#: [id number] CC: BRIAN ROBLEDO MD;*End*
[2018-11-21] MEDS: INSULIN ASPART [NOVOLOG] 3 ML PEN SC SCH ×4 (07:50→21:00)
[2018-11-21] MEDS ORDERED: HEPARIN 1000 UNITS/ML 10 ML INJ CATHETER PRN (08:30)
[2018-11-21] MEDS: ALLOPURINOL 100 MG TAB PO SCH (08:48)
[2018-11-21] MEDS: LUBIPROSTONE 24 MCG CAP PO SCH ×2 (08:48→20:58)
[2018-11-21] MEDS: FUROSEMIDE 40 MG TAB PO SCH (08:48)
[2018-11-21] MEDS: PATIROMER CALCIUM SORBITEX 16.8 GM PKT PO SCH (08:49)
[2018-11-21] MEDS: GABAPENTIN 100 MG CAP PO SCH ×3 (08:49→20:59)
[2018-11-21] MEDS: NEOMYC/POLYMYX/DEXAMETH OPH 5 ML RIGHT EYE SCH ×4 (08:50→20:57)
[2018-11-21] MEDS: BALSAM PERU/CASTOR OIL 60 GM TUBE TOP SCH ×2 (08:51→20:58)
[2018-11-21] MEDS: HEPARIN 5,000 UNIT/1 ML VIAL SC SCH ×2 (08:54→21:03)
[2018-11-21] MEDS: PHENOL 1.4% SOLN 180 ML BTL MT PRN (08:54)
[2018-11-21] MEDS: OLOPATADINE 0.1% 5 ML OPH BOTH EYES SCH ×2 (09:00→20:58)
[2018-11-21] MEDS: BISACODYL (EC) 5 MG TAB PO PRN (10:02)
--- NOTE | 2018-11-21 10:14 | PN ---
Date/Time of Note Date/Time of Note DATE: 11/21/18 TIME: 10:10 Assessment/Plan VTE Prophylaxis Risk score (from Nsg)>0 risk: 5 SCD applied (from Nsg): No SCD contraindicated: low risk/ambulating Pharmacological prophylaxis: NA/contraindicated Pharm contraindication: low risk/ambulating Lines/Catheters IV Catheter Type (from Nrsg): Mid Line Urinary Cath still in place: No Assessment/Plan Hospital Course 58 y/o with 1. . ckd iii-iv > CKD V now with the complications of hyperkalemia/volume overload, patient has been refusing Kayexalate Veltassa has also been refusing dialysis, patient was explained the risks and consequences and patient completely understands the risks and consequences, now on esrd Hd s/p new permacath placement due to malfunctioning permacath 2. hx c diff hx 3. Chronic kidney disease, 4. Morbid obesity. 5. Diabetes. 6. Hypertension, 7. Gout.hx 8. Neuropathy. 9. History of congestive heart failure. 10 weakness 11 deconditioning 13 Left shoulde pain, TTP ? Frozen shoulder , shoulder impingement 14 s/p Fall ? AMS confusion likley due to UTI 15 uti klebsiella and enterococcus 16 diarrhea 15 vomtiing/? contipation> refuse labs again 16 Dizziness> chronic ? Postural 17 UTI 18 rectal pain with fissure 19 malfunctioning permacath s/p new permacath on 11/03/18 20 hyperkalemia on veltassa 21 Generalised pain with left shoulder pain with chronic shoulder impingement syndrome Plan - Xray left shoulder negative - HD today - cw ultram for pain - Pt is reluctant for steroid injection -Explained to her that as per the dietitian they had also recommended [id number] kcal diet and she needs to be on the renal/ diabetic restrictions due to her end-stage renal disease and her diabetes - cw naproxen /gabapentin - Pt said does not want any av fistulas/graft in future, demanding narcotics,explained to her her limiting ability to function on narcotics as she gets extremely lethargic and sleepy on narcotics and would limit her ability to participate in therapy as pt says that she is only here for PT and minute " she is able to go from bed to commode 3 times she will be out of here" -She is not cooperative in getting 24-hour urine studies for determining the creatinine clearance to determine if can come off of HD - cw lantus 15 units -Continue with heparin - PT discharged her, nurse to ambulate her twice a day - GI and dvt prophylaxsis Result Diagram: 11/20/18 1110 11/20/18 1110 Results 24hrs Laboratory Tests Test 11/20/18 11:10 11/20/18 12:50 11/20/18 17:48 11/20/18 20:58 White Blood Count 10.5 Red Blood Count 3.77 L Hemoglobin 10.4 L Hematocrit 34.5 L Mean Corpuscular 91.5 Volume Mean Corpuscular 27.6 L Hemoglobin Mean Corpuscular 30.1 L Hemoglobin Concent Red Cell 17.2 H Distribution Width Platelet Count 329 Mean Platelet Volume 10.1 Immature 0.200 Granulocytes % Neutrophils % 60.7 Lymphocytes % 27.7 Monocytes % 6.1 Eosinophils % 4.5 Basophils % 0.8 Nucleated Red Blood 0.0 Cells % Immature 0.020 Granulocytes # Neutrophils # 6.4 Lymphocytes # 2.9 Monocytes # 0.6 Eosinophils # 0.5 Basophils # 0.1 Nucleated Red Blood 0.0 Cells # Sodium Level 142 Potassium Level 6.1 *H Chloride Level 103 Carbon Dioxide Level 26 Anion Gap 13 Blood Urea Nitrogen 83 H Creatinine 4.22 H Est Glomerular 11 L Filtrat Rate mL/min Glucose Level 153 Calcium Level 8.6 Bedside Glucose 173 182 141 Test 11/21/18 08:46 Bedside Glucose 111 Subjective 24 Hr Interval Summary Free Text/Dictation Patient finally had HD today. Pain is somewhat manageable. Was seen by Dr. Rockwell and has not decided about the steroid injection yet Exam/Review of Systems Exam Vitals Vital Signs Date Temp Pulse Resp B/P (MAP) Pulse Ox O2 O2 Flow FiO2 Time Delivery Rate 11/21/18 74 16 116/64 97 Room Air 09:41 (81) 11/21/18 97.9 02:55 Intake and Output 11/20/18 11/20/18 11/21/18 1414:59 22:59 06:59 IntakeIntake Total 200 ml 360 ml 200 ml BalanceBalance 200 ml 360 ml 200 ml Exam MorbidlY obese Gastrointestinal: soft Musculoskeletal: range of motion (pain+) Extremities: No edema tender to touch everywhere fibromyalgia? rt permcath Results Results 24hrs Laboratory Tests Test 11/20/18 11:10 11/20/18 12:50 11/20/18 17:48 11/20/18 20:58 White Blood Count 10.5 Red Blood Count 3.77 L Hemoglobin 10.4 L Hematocrit 34.5 L Mean Corpuscular 91.5 Volume Mean Corpuscular 27.6 L Hemoglobin Mean Corpuscular 30.1 L Hemoglobin Concent Red Cell 17.2 H Distribution Width Platelet Count 329 Mean Platelet Volume 10.1 Immature 0.200 Granulocytes % Neutrophils % 60.7 Lymphocytes % 27.7 Monocytes % 6.1 Eosinophils % 4.5 Basophils % 0.8 Nucleated Red Blood 0.0 Cells % Immature 0.020 Granulocytes # Neutrophils # 6.4 Lymphocytes # 2.9 Monocytes # 0.6 Eosinophils # 0.5 Basophils # 0.1 Nucleated Red Blood 0.0 Cells # Sodium Level 142 Potassium Level 6.1 *H Chloride Level 103 Carbon Dioxide Level 26 Anion Gap 13 Blood Urea Nitrogen 83 H Creatinine 4.22 H Est Glomerular 11 L Filtrat Rate mL/min Glucose Level 153 Calcium Level 8.6 Bedside Glucose 173 182 141 Test 11/21/18 08:46 Bedside Glucose 111 Medications Medication Current Medications Acetaminophen (Tylenol Tab) 325 mg Q4H PRN PO MILD PAIN(1-3)OR ELEVATED TEMP Last administered on 10/18/18 09:27; Admin Dose 325 MG; Start 07/20/18 at 23:00 Allopurinol (Zyloprim) 100 mg DAILY PO Last administered on 11/21/18 08:48; Admin Dose 100 MG; Start 07/21/18 at 09:00 IV Flush (NS 3 ml) 3 ml PER PROTOCOL IV ; Start 07/20/18 at 23:00 Acetaminophen (Tylenol Supp) 650 mg Q6H PRN SD PAIN LEVEL 1-3 OR FEVER; Start 07/20/18 at 23:00 Bisacodyl (Dulcolax) 5 mg DAILY PRN PO CONSTIPATION Last administered on 11/21/18 10:02; Admin Dose 5 MG; Start 07/20/18 at 23:00 Ergocalciferol (Drisdol) 50,000 unit Lacy@0900 PO Last administered on 11/20/18 08:30; Admin Dose 50,000 UNIT; Start 07/24/18 at 09:00 Miscellaneous Information 1 ea NOTE XX ; Start 07/20/18 at 23:00 Dextrose (D50w Syringe) 25 ml Q15M PRN IV DECREASED GLUCOSE; Start 07/20/18 at 23:00 Dextrose (D50w Syringe) 50 ml Q15M PRN IV DECREASED GLUCOSE; Start 07/20/18 at 23:00 Melatonin (Melatonin) 3 mg HS PRN PO INSOMNIA Last administered on 11/20/18 20:57; Admin Dose 3 MG; Start 07/20/18 at 23:00 Al Hydrox/Mg Hydrox/Simethicone (Mag-Al Plus) 30 ml Q4H PRN PO GASTROINTESTINAL UPSET Last administered on 11/17/18 11:27; Admin Dose 30 ML; Start 09/10/18 at 18:00 Ondansetron HCl (Zofran Inj) 4 mg Q6H PRN IV NAUSEA AND/OR VOMITING Last administered on 11/10/18 23:58; Admin Dose 4 MG; Start 09/26/18 at 07:30 Tramadol HCl (Ultram) 100 mg Q6H PRN PO PAIN LEVEL 6-10 Last administered on 11/21/18 10:02; Admin Dose 100 MG; Start 10/09/18 at 18:30 Albumin Human 250 ml @ 250 mls/hr WITH DIALYSIS PRN IV SBP<90; Start 10/11/18 at 12:30 Sodium Chloride (NS) -To prime the dialy... DIRECTED FOR HD PRN IV SBP<90; Start 10/11/18 at 12:30 Lubiprostone (Amitiza) 24 mcg BID PO Last administered on 11/21/18 08:48; Admin Dose 24 MCG; Start 10/12/18 at 10:30 Heparin Sodium (Porcine) (Heparin (5000 Units/1ml)) 5,000 unit BID SC Last administered on 11/21/18 08:54; Admin Dose 5,000 UNIT; Start 10/15/18 at 13:30 Loperamide HCl (Imodium Cap) 2 mg QID PRN PO DIARRHEA Last administered on 10/30/18 15:45; Admin Dose 2 MG; Start 10/23/18 at 18:30 Neomycin/ Polymyxin/ Dexamethasone (Maxitrol Oph Susp) 1 drop QID RIGHT EYE Last administered on 11/21/18 08:50; Admin Dose 1 DROP; Start 10/30/18 at 17:00 Furosemide (Lasix) 40 mg DAILY PO Last administered on 11/21/18 08:48; Admin Dose 40 MG; Start 11/02/18 at 17:47 Insulin Aspart (Novolog Insulin Pen) NOVOLOG *MILD* ALGORITHM WITH MEALS BEDTIME SC Last administered on 11/20/18 17:57; Admin Dose 2 UNIT; Start 11/04/18 at 07:50 Diagnostic Test (Pha) (Accu-Chek) 1 ea 02 XX Last administered on 11/19/18 01:09; Admin Dose 1 EA; Start 11/05/18 at 02:00 Nitroglycerin (Nitroglycerin (Sl Tab) 0.4 Mg) 1 tab Q5M PRN SL ANGINA; Start 11/05/18 at 14:00 Phenol (Chloraseptic Throat [place]) 2 spray Q2H PRN MT SORE THROAT Last administered on 11/21/18 08:54; Admin Dose 2 SPRAY; Start 11/05/18 at 19:00 Insulin Glargine (Lantus) 15 units DAILY@2000 SC Last administered on 11/20/18 21:01; Admin Dose 15 UNITS; Start 11/08/18 at 20:00 Naproxen (Naprosyn) 250 mg TID PRN PO PAIN Last administered on 11/20/18 20: 56; Admin Dose 250 MG; Start 11/10/18 at 16:00 Lactulose (Enulose) 20 gm Q6H PRN PO CONSTIPATION Last administered on 11/10/18 17:30; Admin Dose 20 GM; Start 11/10/18 at 17:30 Gabapentin (Neurontin) 200 mg TID PO Last administered on 11/21/18 08:49; Admin Dose 200 MG; Start 11/16/18 at 13:00 Calcium Carbonate (Tums) 500 mg BID PRN PO GASTROINTESTINAL UPSET Last administered on 11/18/18 09:06; Admin Dose 500 MG; Start 11/18/18 at 06:30 Olopatadine HCl (Patanol 0.1% Oph) 1 drop BID BOTH EYES Last administered on 11/21/18 09:00; Admin Dose 1 DROP; Start 11/19/18 at 21:00 Carbamide Peroxide (Debrox Otic) 3 drop BID PRN BOTH EARS EAR PAIN; Start 11/19/18 at 20:30; Stop 11/26/18 at 21:00 Heparin Sodium (Porcine) (Heparin (1000 Units/ml)) 4,700 unit PRN PRN CATHETER Dialysis Last administered on 11/21/18at 08:57; Admin Dose 4,700 UNIT; Start 11/21/18 at 08:30 KOFI SWANN MD Nov 21, 2018 10:14
[2018-11-21] MEDS: INSULIN GLARGINE [LANTus] (100 UNITS/ML) SYG SC SCH (21:02)
[2018-11-22 01:26] VITALS: BP 104/52; PULSE 65; RESP 16
[2018-11-22] MEDS: ACCUCHECK AT 2AM (Patients on SS coverage) XX SCH (02:00)
[2018-11-22] MEDS: traMADol 50 MG TAB PO PRN ×2 (03:30→18:32)
[2018-11-22] MEDS: BALSAM PERU/CASTOR OIL 60 GM TUBE TOP SCH ×2 (09:00→22:15)
[2018-11-22] MEDS: LUBIPROSTONE 24 MCG CAP PO SCH ×2 (09:00→22:14)
[2018-11-22] MEDS: INSULIN ASPART [NOVOLOG] 3 ML PEN SC SCH ×4 (09:31→21:00)
[2018-11-22] MEDS: ALLOPURINOL 100 MG TAB PO SCH (09:31)
[2018-11-22] MEDS: GABAPENTIN 100 MG CAP PO SCH ×3 (09:32→22:14)
[2018-11-22] MEDS: FUROSEMIDE 40 MG TAB PO SCH (09:32)
[2018-11-22 09:36] VITALS: BP 110/64; PULSE 70; RESP 18
[2018-11-22] MEDS: OLOPATADINE 0.1% 5 ML OPH BOTH EYES SCH ×2 (09:36→22:13)
[2018-11-22] MEDS: NEOMYC/POLYMYX/DEXAMETH OPH 5 ML RIGHT EYE SCH ×4 (09:36→22:15)
[2018-11-22] MEDS: HEPARIN 5,000 UNIT/1 ML VIAL SC SCH ×2 (09:38→22:13)
[2018-11-22] MEDS: NAPROXEN 250 MG TAB PO PRN (13:16)
--- NOTE | 2018-11-22 15:24 | PN ---
Date/Time of Note Date/Time of Note DATE: 11/22/18 TIME: 15:23 Assessment/Plan VTE Prophylaxis Risk score (from Nsg)>0 risk: 6 SCD applied (from Nsg): No SCD contraindicated: low risk/ambulating Pharmacological prophylaxis: NA/contraindicated Pharm contraindication: low risk/ambulating Lines/Catheters IV Catheter Type (from Nrsg): Mid Line Urinary Cath still in place: No Assessment/Plan Hospital Course 58 y/o with 1. . ckd iii-iv > CKD V now with the complications of hyperkalemia/volume overload, patient has been refusing Kayexalate Veltassa has also been refusing dialysis, patient was explained the risks and consequences and patient completely understands the risks and consequences, now on esrd Hd s/p new permacath placement due to malfunctioning permacath 2. hx c diff hx 3. Chronic kidney disease, 4. Morbid obesity. 5. Diabetes. 6. Hypertension, 7. Gout.hx 8. Neuropathy. 9. History of congestive heart failure. 10 weakness 11 deconditioning 13 Left shoulde pain, TTP ? Frozen shoulder , shoulder impingement 14 s/p Fall ? AMS confusion likley due to UTI 15 uti klebsiella and enterococcus 16 diarrhea 15 vomtiing/? contipation> refuse labs again 16 Dizziness> chronic ? Postural 17 UTI 18 rectal pain with fissure 19 malfunctioning permacath s/p new permacath on 11/03/18 20 hyperkalemia on veltassa 21 Generalised pain with left shoulder pain with chronic shoulder impingement syndrome Plan - DC planning for tmw - HD arrangements are being done - home health per child welfare caseworker - walker/hospital bed Result Diagram: 11/20/18 1110 11/21/18 1429 Results 24hrs Laboratory Tests Test 11/21/18 17:50 11/21/18 20:56 11/22/18 09:26 11/22/18 13:14 Bedside Glucose 134 147 106 113 Subjective 24 Hr Interval Summary Free Text/Dictation had multidiscpilinary conference yesterday with satff members, CN, Dr Nuñez plan is to dc pt today spoke to patient HD ARRNAGEMENTS are being done, need final ok from [facility] she tells me she need 3 hrs before to call her transportation and hrs before in order to call care tech Exam/Review of Systems Exam Vitals Vital Signs Date Temp Pulse Resp B/P (MAP) Pulse Ox O2 O2 Flow FiO2 Time Delivery Rate 11/22/18 98.0 65 16 104/52 97 Room Air 01:26 (69) Intake and Output 11/21/18 11/21/18 11/22/18 1515:00 23:00 07:00 IntakeIntake Total 200 ml OutputOutput Total 1450 ml BalanceBalance -1250 ml Exam MorbidlY obese Gastrointestinal: soft Musculoskeletal: range of motion (pain+) Extremities: No edema tender to touch everywhere fibromyalgia? rt permcath Results Results 24hrs Laboratory Tests Test 11/21/18 17:50 11/21/18 20:56 11/22/18 09:26 11/22/18 13:14 Bedside Glucose 134 147 106 113 Medications Medication Current Medications Acetaminophen (Tylenol Tab) 325 mg Q4H PRN PO MILD PAIN(1-3)OR ELEVATED TEMP Last administered on 10/18/18 09:27; Admin Dose 325 MG; Start 07/20/18 at 23:00 Allopurinol (Zyloprim) 100 mg DAILY PO Last administered on 11/22/18 09:31; Admin Dose 100 MG; Start 07/21/18 at 09:00 Acetaminophen (Tylenol Supp) 650 mg Q6H PRN [place] PAIN LEVEL 1-3 OR FEVER; Start 07/20/18 at 23:00 Bisacodyl (Dulcolax) 5 mg DAILY PRN PO CONSTIPATION Last administered on 11/21/18 10:02; Admin Dose 5 MG; Start 07/20/18 at 23:00 Ergocalciferol (Drisdol) 50,000 unit Lacy@0900 PO Last administered on 11/20/18 08:30; Admin Dose 50,000 UNIT; Start 07/24/18 at 09:00 Miscellaneous Information 1 ea NOTE XX ; Start 07/20/18 at 23:00 Dextrose (D50w Syringe) 25 ml Q15M PRN IV DECREASED GLUCOSE; Start 07/20/18 at 23:00 Dextrose (D50w Syringe) 50 ml Q15M PRN IV DECREASED GLUCOSE; Start 07/20/18 at 23:00 Melatonin (Melatonin) 3 mg HS PRN PO INSOMNIA Last administered on 11/20/18 20:57; Admin Dose 3 MG; Start 07/20/18 at 23:00 Al Hydrox/Mg Hydrox/Simethicone (Mag-Al Plus) 30 ml Q4H PRN PO GASTROINTESTINAL UPSET Last administered on 11/17/18 11:27; Admin Dose 30 ML; Start 09/10/18 at 18:00 Ondansetron HCl (Zofran Inj) 4 mg Q6H PRN IV NAUSEA AND/OR VOMITING Last administered on 11/10/18 23:58; Admin Dose 4 MG; Start 09/26/18 at 07:30 Tramadol HCl (Ultram) 100 mg Q6H PRN PO PAIN LEVEL 6-10 Last administered on 11/22/18 03:30; Admin Dose 100 MG; Start 10/09/18 at 18:30 Albumin Human 250 ml @ 250 mls/hr WITH DIALYSIS PRN IV SBP<90; Start 10/11/18 at 12:30 Sodium Chloride (NS) -To prime the dialy... DIRECTED FOR HD PRN IV SBP<90; Start 10/11/18 at 12:30 Lubiprostone (Amitiza) 24 mcg BID PO Last administered on 11/21/18 20:58; Admin Dose 24 MCG; Start 10/12/18 at 10:30 Heparin Sodium (Porcine) (Heparin (5000 Units/1ml)) 5,000 unit BID SC Last administered on 11/22/18 09:38; Admin Dose 5,000 UNIT; Start 10/15/18 at 13:30 Loperamide HCl (Imodium Cap) 2 mg QID PRN PO DIARRHEA Last administered on 10/30/18 15:45; Admin Dose 2 MG; Start 10/23/18 at 18:30 Neomycin/ Polymyxin/ Dexamethasone (Maxitrol Oph Susp) 1 drop QID RIGHT EYE Last administered on 11/22/18 09:36; Admin Dose 1 DROP; Start 10/30/18 at 17:00 Furosemide (Lasix) 40 mg DAILY PO Last administered on 11/22/18 09:32; Admin Dose 40 MG; Start 11/02/18 at 17:47 Insulin Aspart (Novolog Insulin Pen) NOVOLOG *MILD* ALGORITHM WITH MEALS BED TIME SC Last administered on 11/21/18 13:23; Admin Dose 1 UNIT; Start 11/04/18 at 07:50 Diagnostic Test (Pha) (Accu-Chek) 1 ea 02 XX Last administered on 11/19/18 01:09; Admin Dose 1 EA; Start 11/05/18 at 02:00 Nitroglycerin (Nitroglycerin (Sl Tab) 0.4 Mg) 1 tab Q5M PRN SL ANGINA; Start 11/05/18 at 14:00 Phenol (Chloraseptic Throat [place]) 2 spray Q2H PRN [place] SORE THROAT Last administered on 11/21/18 08:54; Admin Dose 2 SPRAY; Start 11/05/18 at 19:00 Insulin Glargine (Lantus) 15 units DAILY@2000 SC Last administered on 11/21/18 21:02; Admin Dose 15 UNITS; Start 11/08/18 at 20:00 Naproxen (Naprosyn) 250 mg TID PRN PO PAIN Last administered on 11/22/18 13:16; Admin Dose 250 MG; Start 11/10/18 at 16:00 Lactulose (Enulose) 20 gm Q6H PRN PO CONSTIPATION Last administered on 11/10/18 17:30; Admin Dose 20 GM; Start 11/10/18 at 17:30 Gabapentin (Neurontin) 200 mg TID PO Last administered on 11/22/18 13:16; Admin Dose 200 MG; Start 11/16/18 at 13:00 Calcium Carbonate (Tums) 500 mg BID PRN PO GASTROINTESTINAL UPSET Last administered on 11/18/18 09:06; Admin Dose 500 MG; Start 11/18/18 at 06:30 Olopatadine HCl (Patanol 0.1% Oph) 1 drop BID BOTH EYES Last administered on 11/22/18 09:36; Admin Dose 1 DROP; Start 11/19/18 at 21:00 Carbamide Peroxide (Debrox Otic) 3 drop BID PRN BOTH EARS EAR PAIN; Start 11/19/18 at 20:30; Stop 11/26/18 at 21:00 Heparin Sodium (Porcine) (Heparin (1000 Units/ml)) 4,700 unit PRN PRN CATHETER Dialysis Last administered on 11/21/18 08:57; Admin Dose 4,700 UNIT; Start 11/21/18 at 08:30 KOFI SWANN MD Nov 22, 2018 15:24
[2018-11-22 16:00] VITALS: BP 111/70; PULSE 64; RESP 16
[2018-11-22] MEDS ORDERED: LACT20SO2 PO (16:57)
[2018-11-22] MEDS ORDERED: Insulin Glargine SC (16:57)
[2018-11-22] MEDS ORDERED: CALC200T26 PO (16:57)
[2018-11-22] MEDS ORDERED: FURO40TA4 PO (16:57)
[2018-11-22] MEDS ORDERED: GABA100C14 PO (16:57)
[2018-11-22] MEDS ORDERED: TYL650R PR (16:57)
[2018-11-22 20:00] VITALS: BP 152/90; PULSE 83; RESP 18
[2018-11-22] MEDS: INSULIN GLARGINE [LANTus] (100 UNITS/ML) SYG SC SCH (22:12)
[2018-11-23] MEDS: ACCUCHECK AT 2AM (Patients on SS coverage) XX SCH (01:51)
[2018-11-23 02:28] VITALS: BP 152/87; PULSE 86; RESP 18
[2018-11-23 07:52] VITALS: BP 116/78; PULSE 92; RESP 18
--- NOTE | 2018-11-23 08:51 | PDOCDIS ---
Discharge Instructions DIAGNOSIS Discharge Diagnosis Renal failure CONDITION [id number] Patient Condition: [address] [place] HOME CARE INSTRUCTIONS: [id number] Diet Instructions: [address] Regular [address] Special Diet: [address] Renal, carbohydrate controlled diet ACTIVITY: [id number] Activity Restrictions: [address] Slowly Increase Activity Rest between Activity [address] Bathing Restrictions: [address] Shower FOLLOW UP/APPOINTMENTS Follow-up Plan F/U AT [facility] TTS F/U OWN PCP 1 WK F/U DR GARRISON 1 WK F/U Home healtha and PT REFERRALS [address] Agency Name and Phone [address] Homecare for Number: physical therapy and home care: [phone] KOFI SWANN MD Nov 23, 2018 08:51
--- NOTE | 2018-11-23 08:57 | QN ---
Documentation Comment Pt seen and examined spoke to patient and answered all questions VS stable home health, PT and hd arranged healthcare applications analyst was called and franco arranged Physical therapy had discharged pt from services as acc to them she is able to meet all PT goals on 11/11/18 Hospital bed and walker arranged , will be delivered prescriptions written and verified with patient f/u PCP in 1-2 weeks f/u HD as scheduled, all instructions given dc today see dc summary KOFI SWANN MD Nov 23, 2018 08:57
== END 2018-11-23 09:20 | disposition home health service (06) | DRG 640 ==
LOC: E/R 09:47 → MS1 18:11 → OBSVTOIN 07-23 16:13
PROVIDERS: ADMIT Internal Medicine Nephrology; ATTEND Internal Medicine Nephrology
PROC: 5A1D70Z Performance of Urinary Filtration, Intermittent, Less than 6 Hours Per Day (ICD-10-PCS; 2018-07-24)
PROC: 0DB68ZX Excision of Stomach, Via Natural or Artificial Opening Endoscopic, Diagnostic (ICD-10-PCS; principal; 2018-10-14 15:00)
PROC: 0J2TXYZ Change Other Device in Trunk Subcutaneous Tissue and Fascia, External Approach (ICD-10-PCS; 2018-11-03)
DX: E87.5 Hyperkalemia (principal); G93.41 Metabolic encephalopathy; N18.4 Chronic kidney disease, stage 4 (severe); N39.0 Urinary tract infection, site not specified; Z68.43 Body mass index [BMI] 50.0-59.9, adult; F11.20 Opioid dependence, uncomplicated; L03.316 Cellulitis of umbilicus; I13.0 Hypertensive heart and chronic kidney disease with heart failure and stage 1 through stage 4 chronic kidney disease, or unspecified chronic kidney disease; T82.49XA Other complication of vascular dialysis catheter, initial encounter; T82.868A Thrombosis due to vascular prosthetic devices, implants and grafts, initial encounter; D63.1 Anemia in chronic kidney disease; E11.22 Type 2 diabetes mellitus with diabetic chronic kidney disease; E66.01 Morbid (severe) obesity due to excess calories; E11.40 Type 2 diabetes mellitus with diabetic neuropathy, unspecified; E78.00 Pure hypercholesterolemia, unspecified; F39 Unspecified mood [affective] disorder; I50.9 Heart failure, unspecified; K76.0 Fatty (change of) liver, not elsewhere classified; K29.70 Gastritis, unspecified, without bleeding; K60.2 Anal fissure, unspecified; K59.09 Other constipation; K21.9 Gastro-esophageal reflux disease without esophagitis; M10.9 Gout, unspecified; M75.42 Impingement syndrome of left shoulder; M17.12 Unilateral primary osteoarthritis, left knee; R53.1 Weakness; R14.0 Abdominal distension (gaseous); R26.2 Difficulty in walking, not elsewhere classified; B96.1 Klebsiella pneumoniae [K. pneumoniae] as the cause of diseases classified elsewhere; B95.2 Enterococcus as the cause of diseases classified elsewhere; Z53.29 Procedure and treatment not carried out because of patient's decision for other reasons; Z99.2 Dependence on renal dialysis; Z91.14 Patient's other noncompliance with medication regimen; Z87.891 Personal history of nicotine dependence; Z79.4 Long term (current) use of insulin
CPT/HCPCS: 36558; 70450; 71045; 73030; 73560; 74018; 76705; 80048; 80053; 81001; 82270; 82378; 82550; 82607; 82728; 82746; 82962; 83036; 83540; 83690; 83735; 84100; 84132; 84155; 84484; 85025; 85045; 85049; 85610; 85670; 85730; 86301; 86704; 86706; 86709; 86803; 87040; 87070; 87086; 87340; 88300; 88305; 88312; 90935; 93005; 93931; 97110; 97116; 97163; 97530; A4310; C1750; G0378; J0610; J0690; J0692; J0696; J0744; J1100; J1170; J1200; J1644; J1815; J1885; J1940; J2250; J2270; J2405; J2710; J2997; J3010; J3370; J7050; P9047